=== PATIENT | female | born 1940 | race Caucasian/White ===

== ENCOUNTER 2021-12-25 14:26 | Inpatient (IN) ==
--- NOTE | 2021-12-25 14:43 | Emergency Department Note ---
Impression & Plan Closed right hip fracture, Dementia, Fall, Acute hip pain ED Provider Note NAME: JEFFREY WHITT AGE: 81 SEX: F : 1940 ARRIVES VIA: Ambulance INFORMANT: Patient, ED PROVIDER(S): Gustavo Rodriguez MD Chief Complaint: Fall, hip pain HPI: Patient presents from wound home secondary to fall and right-sided hip pain. The patient reportedly was closing a door he turned around and tripped over her own feet falling to her right side. The patient denies any LOC or head strike. Patient has any fevers or chills. The patient denies any chest back abdomen upper extremity left lower extremity pain. The patient not take anything for pain prior to arrival. Patient states the pain is localized to the right hip and is achy and nonradiating. The patient does complain of some mild tingling to the right toes. Patient has no other acute symptoms at this time. The patient denies any prior history of any orthopedic follow-up or sports medicine procedure. Patient did have some mild associated nausea secondary to the pain. Patient denies any alcohol or tobacco use. ROS: See HPI for pertinent positives and negatives. A total of 10 systems were reviewed and otherwise negative. Past medical history: See below Surgical history: See below Social history: See below Physical Exam: GENERAL: NAD, wearing glasses, non-toxic. EYE EXAM: Normal conjunctiva. PERRL, no anisocoria and EOM's grossly intact w/o pain. OROPHARYNX: Moist mucus membranes. Grossly normal dentition. NECK: Supple, no nuchal rigidity, no adenopathy, non-tender. No signs of meningismus. No midline C-spine TTP. Chest: No reproducible chest wall pain. LUNGS: Clear to auscultation. Normal chest wall mechanics. HEART: NSR, no MRG. ABDOMEN: Abdomen soft, non-tender, normo-active bowel sounds, no masses, no rebound or guarding. BACK: No CVA TTP. SKIN: No rashes and no bruising. UPPER EXTREMITIES: Upper extremities are grossly normal. No pain to palpation or obvious deformity. LOWER EXTREMITIES: Right lower extremity slightly shorter compared to the left, decreased range of motion right lower extremity secondary to pain which is localized over the right hip and proximal femur area, good DP pulse, sensation and motor intact with exception of decreased range of motion secondary to pain. Compartments are soft throughout. No pain to palpation or obvious deformity to left lower extremity. NEURO EXAM: A&O x3, cranial nerves II-XII grossly intact, normal speech, moves all 4 extremities on command w/o issue. Good finger to nose, no drift, no sensory deficits. Differential diagnoses: Fracture, subluxation, dislocation, contusion, ligamentous injury, neurovascular, compartment syndrome, rhabdomyolysis, as well as other pathologies. Course: Patient was seen and evaluated the bedside. Full history physical exam was performed. EKG interpreted by me Normal sinus rhythm, rate 96, normal intervals, normal axis, no obvious ST elevations. Imaging Studies: See Below Cardiac monitoring: An order was placed for continuous cardiac monitoring. The monitor shows a rate of 92 with sinus rhythm. MDM: Patient was seen due to concern for ground-level fall. Blood work is obtained along with plain x-rays. Patient denies any head strike does not take blood thinning medications. The patient does have a sure. I did speak with the on- call orthopedist Dr. Frausot did evaluate the patient. I did convey the patient's fracture to the patient and family member. I did speak with the on- call hospitalist Niharika Copeland PA-C and the patient was admitted by Dr. Watson. Past Med/Surg History Medical History Spencer's palsy Dementia History of breast cancer HTN (hypertension) Hyperparathyroidism Lumbar spinal stenosis Osteoporosis Pre-diabetes Surgical History History of partial mastectomy hx of dcis Family History Mother Alzheimer disease Father Heart disease Social History Smoking Status: Never smoker Hx Alcohol Use: No Hx Substance Use: No Preferred Language: Botswan[place] marital status: Current Living Situation: Spouse and Personal Care Facility Feels Safe at Home: Yes Allergies Allergies Allergy/AdvReac Type Severity Reaction Status Date / Time ezetimibe [From Zetia] Allergy Unknown ON Verified 12/25/21 16:24 [facility] MED LIST Sulfa (Sulfonamide Allergy Unknown ON Verified 12/25/21 16:24 Antibiotics) [facility] L[facility] sulfamethoxazole Allergy Unknown ON Verified 12/25/21 16:24 [From Bactrim] [facility] tramadol Allergy Unknown ON Verified 12/25/21 16:24 [facility] trimethoprim [From Bactrim] Allergy Unknown ON Verified 12/25/21 16:24 [facility] L[facility] Home Meds Home Medications Medication Instructions Recorded Confirmed amlodipine 5 mg tablet 5 mg PO QAM 12/25/21 12/25/21 cholecalciferol (vitamin D3) 25 25 mcg PO QAM 12/25/21 12/25/21 mcg (1,000 unit) capsule (Vitamin D3) citalopram 10 mg tablet 10 mg PO QAM 12/25/21 12/25/21 loratadine 10 mg tablet (Claritin) 10 mg PO QAM 12/25/21 12/25/21 Results & Data (ED) Vital Signs Vital Signs - 24 hr 12/25/21 14:34 12/25/21 15:00 12/25/21 15:15 Temperature 36.6 C Temperature Source Oral Pulse Rate 93 H 97 H 95 H Respiratory Rate 18 22 18 Blood Pressure 119/96 Blood Pressure Mean 103 Pulse Oximetry 94 97 Oxygen Delivery Method Room Air Room Air Sepsis Recent Fever Within 48 Hours No Sepsis New/Unexplained Change in Mental Status No Sepsis Action Taken by Nursing No Action Required 12/25/21 15:30 12/25/21 15:40 12/25/21 15:44 Temperature Temperature Source Pulse Rate 98 H 93 H 90 Respiratory Rate 22 21 20 Blood Pressure Blood Pressure Mean Pulse Oximetry 96 94 Oxygen Delivery Method Room Air Room Air Sepsis Recent Fever Within 48 Hours Sepsis New/Unexplained Change in Mental Status Sepsis Action Taken by Nursing 12/25/21 16:24 12/25/21 16:25 12/25/21 16:27 Temperature Temperature Source Pulse Rate 99 H Respiratory Rate 21 22 Blood Pressure 162/78 H Blood Pressure Mean 106 Pulse Oximetry 91 95 Oxygen Delivery Method Room Air Room Air Sepsis Recent Fever Within 48 Hours Sepsis New/Unexplained Change in Mental Status Sepsis Action Taken by Nursing 12/25/21 16:30 12/25/21 16:40 12/25/21 16:50 Temperature Temperature Source Pulse Rate 94 H 92 H 93 H Respiratory Rate 18 18 16 Blood Pressure 162/78 H Blood Pressure Mean 106 Pulse Oximetry 93 90 94 Oxygen Delivery Method Room Air Room Air Room Air Sepsis Recent Fever Within 48 Hours Sepsis New/Unexplained Change in Mental Status Sepsis Action Taken by [facility] Medications Current Medication List: was personally reviewed by me Laboratory Data Attestation: I reviewed the patient's lab results. Result diagrams: 12/25/21 15:17 12/25/21 15:17 Lab Results 12/25/21 12/25/21 12/25/21 Range/Units 15:17 15:17 15:17 WBC 7.00 (4.8-10.8) K/uL RBC 4.70 (4.2-5.4) M/uL Hgb 13.6 (12.0-16.0) g/dL Hct 40.6 (37-47) % MCV 86.4 (80-100) fL MCH 28.9 (25-34) pg MCHC 33.5 (32-36) g/dL RDW Std Deviation 41.3 (36.4-46.3) fL RDW Coeff of Tyesha 12.9 (11.5-14.5) % Plt Count 251 (130-400) K/uL MPV 9.8 (7.4-10.4) fL Immature Gran % (Auto) 0.1 % Neut % (Auto) 67.9 % Lymph % (Auto) 21.7 % [place] % (Auto) 8.6 % Eos % (Auto) 1.4 % Baso % (Auto) 0.3 % Neut # (Auto) 4.75 (1.4-6.5) K/uL Lymph # (Auto) 1.52 (1.2-3.4) K/uL [place] # (Auto) 0.60 H (0.11-0.59) K/uL Eos # (Auto) 0.10 (0-0.5) K/uL Baso # (Auto) 0.02 (0-0.2) K/uL Immature Gran # (Auto) 0.01 (0.00-0.02) K/uL PT 10.9 (9.0-12.0) Seconds INR 1.0 (0.9-1.1) APTT 23.4 (21.0-31.0) Seconds PTT Ratio 0.9 Sodium 136 (136-145) mmol/L Potassium 4.1 (3.5-5.1) mmol/L Chloride 102 (98-107) mmol/L Carbon Dioxide 27 (21-32) mmol/L Anion Gap 7 (3-11) BUN 18 (6-23) mg/dl Creatinine 0.91 (0.6-1.2) mg/dl Est Cr Clr Drug Dosing 38.7 ml/min Est GFR ( Amer) 67.6 ml/min Est GFR (Non-Af Amer) 58.3 ml/min BUN/Creatinine Ratio 19.8 (10-20) Glucose 137 H (70-99(Fasting)) mg/dl Calcium 9.9 (8.5-10.1) mg/dl Total Bilirubin 0.3 (0.2-1.0) mg/dl AST 13 (13-39) U/L ALT 6 L (7-52) U/L Alkaline Phosphatase 75 (34-104) U/L Total Protein 7.3 (6.0-8.3) gm/dl Albumin 4.3 (3.4-5.0) gm/dl Globulin 3.0 (2.5-4.0) gm/dl Albumin/Globulin Ratio 1.4 (0.9-2) Urine Color Urine Appearance (Clear) Urine pH (4.5-7.5) Ur Specific [place] (1.000-1.030) Urine Protein (Negative) Urine Glucose (UA) (Negative) Urine Ketones (Negative) Urine Blood (Negative) Urine Nitrite (Negative) Urine Bilirubin (Negative) Urine Urobilinogen (Negative) Ur Leukocyte Esterase (Negative) Urine WBC (Auto) (0-5) /hpf Urine RBC (Auto) (0-4) /hpf U Hyaline Cast (Auto) (0-5) /lpf U Epithel Cells (Auto) (0-5) /lpf Urine Bacteria (Auto) (Negative) Blood Type Antibody Screen 12/25/21 12/25/21 Range/Units 15:26 15:32 WBC (4.8-10.8) K/uL RBC (4.2-5.4) M/uL Hgb (12.0-16.0) g/dL Hct (37-47) % MCV (80-100) fL MCH (25-34) pg MCHC (32-36) g/dL RDW Std Deviation (36.4-46.3) fL RDW Coeff of Tyesha (11.5-14.5) % Plt Count (130-400) K/uL MPV (7.4-10.4) fL Immature Gran % (Auto) % Neut % (Auto) % Lymph % (Auto) % [place] % (Auto) % Eos % (Auto) % Baso % (Auto) % Neut # (Auto) (1.4-6.5) K/uL Lymph # (Auto) (1.2-3.4) K/uL [place] # (Auto) (0.11-0.59) K/uL Eos # (Auto) (0-0.5) K/uL Baso # (Auto) (0-0.2) K/uL Immature Gran # (Auto) (0.00-0.02) K/uL PT (9.0-12.0) Seconds INR (0.9-1.1) APTT (21.0-31.0) Seconds PTT Ratio Sodium (136-145) mmol/L Potassium (3.5-5.1) mmol/L Chloride (98-107) mmol/L Carbon Dioxide (21-32) mmol/L Anion Gap (3-11) BUN (6-23) mg/dl Creatinine (0.6-1.2) mg/dl Est Cr Clr Drug Dosing ml/min Est GFR ( Amer) ml/min Est GFR (Non-Af Amer) ml/min BUN/Creatinine Ratio (10-20) Glucose (70-99(Fasting)) mg/dl Calcium (8.5-10.1) mg/dl Total Bilirubin (0.2-1.0) mg/dl AST (13-39) U/L ALT (7-52) U/L Alkaline Phosphatase (34-104) U/L Total Protein (6.0-8.3) gm/dl Albumin (3.4-5.0) gm/dl Globulin (2.5-4.0) gm/dl Albumin/Globulin Ratio (0.9-2) Urine Color Yellow Urine Appearance Clear (Clear) Urine pH 8.5 H (4.5-7.5) Ur Specific [place] 1.009 (1.000-1.030) Urine Protein Negative (Negative) Urine Glucose (UA) Negative (Negative) Urine Ketones Negative (Negative) Urine Blood Trace H (Negative) Urine Nitrite Negative (Negative) Urine Bilirubin Negative (Negative) Urine Urobilinogen Negative (Negative) Ur Leukocyte Esterase Negative (Negative) Urine WBC (Auto) 1-5 (0-5) /hpf Urine RBC (Auto) 0-4 (0-4) /hpf U Hyaline Cast (Auto) 0 (0-5) /lpf U Epithel Cells (Auto) 10-20 H (0-5) /lpf Urine Bacteria (Auto) Negative (Negative) Blood Type A Negative Antibody Screen NEGATIVE Administered Medications Sodium Chloride (Nss 1000ml) 1,000 mls @ 60 mls/hr IV .[id number] [facility] Stop: 01/25/22 12:00 Last Admin: 12/25/21 19:28 Dose: 60 mls/hr Documented by: [id number] Morphine Sulfate (Morphine Sulfate 2 Mg/Ml Carp) 2 mg IV Q3H PRN PRN Reason: Pain (1,2,3,4,5) & Pre PT Stop: 01/08/22 18:37 Last Admin: 12/25/21 21:42 Dose: 2 mg Documented by: [id number] Ondansetron HCl (Ondansetron Inj 2 Mg/Ml 2 Ml Vial) 4 mg IV Q6H PRN PRN Reason: Nausea Stop: 01/24/22 18:37 Last Admin: 12/25/21 19:33 Dose: 4 mg Documented by: [id number] Senna/Docusate Sodium (Docusate Sodium/Senna 50/8.6mg Tab) 2 tab PO HS [facility] Stop: 01/24/22 20:59 Last Admin: 12/25/21 21:32 Dose: 2 tab Documented by: [id number] Discontinued Medications Morphine Sulfate (Morphine Sulfate 2 Mg/Ml Carp) 2 mg IV Q1H PRN PRN Reason: Moderate Pain (Rating 3,4,5,6) Stop: 01/08/22 14:53 Last Admin: 12/25/21 15:48 Dose: 2 mg Documented by: [id number] Ondansetron HCl (Ondansetron Inj 2 Mg/Ml 2 Ml Vial) Confirm Administered Dose 4 mg .ROUTE .STK-MED ONE Stop: 12/25/21 16:56 Last Admin: 12/25/21 16:58 Dose: 4 mg Documented by: [id number] Imaging Data Radiologist's Impression: Chest X-Ray 12/25/21 14:54 SINGLE VIEW CHEST CLINICAL HISTORY: Preoperative examination. Hip fracture FINDINGS: An AP, portable, supine chest radiograph is obtained. No prior studies are available for comparison at the time of dictation. The cardiomediastinal silhouette is unremarkable noting atherosclerotic calcification of the thoracic aorta. There is elevation of the right hemidiaphragm with right basilar consolidation. There is also mild scarring/atelectasis at the left lung base. Nonspecific interstitial thickening is likely chronic. No airspace consolidation, large pleural effusion, or pneumothorax is seen. The skeletal structures are osteopenic. The bony thorax is grossly intact. Surgical clips project over the left lower chest. Cholecystectomy clips are noted in the right upper quadrant. IMPRESSION: No acute cardiopulmonary abnormality. ACT 112: Negative or not required by law. Electronically signed by: Abdoulaye Brumfield M.D. 12/25/2021 4:22 PM Hip X-Ray 12/25/21 14:54 XR hip RT min 2V CLINICAL HISTORY: fall, hip pain TECHNIQUE: 2 views of the right hip were obtained. Comparison: None available at the time of this dictation. FINDINGS: There is an acute femoral neck fracture, likely subcapital or transcervical. The alignment is anatomic. Joint spaces are well-preserved. Soft tissue swelling is seen about the knee. IMPRESSION: Acute right femoral neck fracture. ACT 112: Negative or not required by law. Electronically signed by: Hans Benitez M.D. 12/25/2021 4:24 PM Discharge Plan Visit Data Chief Complaint: Hip Pain ED Provider: Gustavo Rodriguez Discharge Problem: Closed right hip fracture, Dementia, Fall, Acute hip pain Patient Disposition: Admitted As Inpatient Discharge Instructions Interventions: ED Discharge Assessment Last Done: 12/25/21 18:40
[2021-12-25] MEDS ORDERED: MoRPHine SULFATE 2 MG/ML CARP IV PRN ×2 (14:54→18:38)
[2021-12-25 15:28] LABS: Basophils # (auto) 0.02 K/uL (0-0.2); Basophils % (auto) 0.3 %; Eosinophils % (auto) 1.4 %; Hematocrit (blood only) 40.6 % (37-47); Hemoglobin 13.6 g/dL (12.0-16.0); Immature Granulocytes # (auto) 0.01 K/uL (0.00-0.02); Immature Granulocytes % (auto) 0.1 %; Lymphocytes # (auto) 1.52 K/uL (1.2-3.4); Lymphocytes % (auto) 21.7 %; Mean Corpuscular Hemoglobin 28.9 pg (25-34); Mean Corpuscular Hgb Conc 33.5 g/dL (32-36); Mean Corpuscular Volume 86.4 fL (80-100); Mean Platelet Volume 9.8 fL (7.4-10.4); Monocytes % (auto) 8.6 %; Neutrophils # (auto) 4.75 K/uL (1.4-6.5); Neutrophils % (auto) 67.9 %; Platelet Count 251 K/uL (130-400); RDW Coefficient of Variation 12.9 % (11.5-14.5); RDW Standard Deviation 41.3 fL (36.4-46.3)
[2021-12-25 15:40] LABS: Partial Thromboplastin Ratio 0.9; Partial Thromboplastin Time 23.4 Seconds (21.0-31.0); Prothrombin Time 10.9 Seconds (9.0-12.0)
[2021-12-25 15:48] LABS: Albumin Globulin Ratio 1.4 (0.9-2); Albumin Level 4.3 gm/dl (3.4-5.0); BUN Creatinine Ratio 19.8 (10-20); Bilirubin,Total 0.3 mg/dl (0.2-1.0); Calcium 9.9 mg/dl (8.5-10.1); Creatinine Clr Calc Pharmacy 38.7 ml/min; Est GFR (African American) 67.6 ml/min; Est GFR (Non-African American) 58.3 ml/min; Potassium 4.1 mmol/L (3.5-5.1); Total Protein 7.3 gm/dl (6.0-8.3)
[2021-12-25 15:54] LABS: Appearance Urine Clear (Clear); Bacteria Urine Automated Negative (Negative); Bilirubin Urine Negative (Negative); Blood Urine Trace (Negative); Cast Urine Automated 0 /lpf (0-5); Color Urine Yellow; Glucose Urine UA Negative (Negative); Ketones Urine Negative (Negative); Leukocyte Esterase Urine Negative (Negative); Nitrite Urine Negative (Negative); Protein Urine Negative (Negative); RBC Urine Automated 0-4 /hpf (0-4); Specific Gravity Urine 1.009 (1.000-1.030); Urobilinogen Urine Negative (Negative); pH Urine 8.5 (4.5-7.5)
--- NOTE | 2021-12-25 16:24 | XRay Report ---
SINGLE VIEW CHEST CLINICAL HISTORY: Preoperative examination. Hip fracture FINDINGS: An AP, portable, supine chest radiograph is obtained. No prior studies are available for co mparison at the time of dictation. The cardiomediastinal silhouette is unremarkable noting atheroscl erotic calcification of the thoracic aorta. There is elevation of the right hemidiaphragm with right basilar consolidation. There is also mild scarring/atelectasis at the left lung base. Nonspecific int erstitial thickening is likely chronic. No airspace consolidation, large pleural effusion, or pneumot horax is seen. The skeletal structures are osteopenic. The bony thorax is grossly intact. Surgical cl ips project over the left lower chest. Cholecystectomy clips are noted in the right upper quadrant. IMPRESSION: No acute cardiopulmonary abnormality. ACT 112: Negative or not required by law. Electronically signed by: Abdoulaye Brumfield M.D. 12/25/2021 4:22 PM
--- NOTE | 2021-12-25 16:26 | XRay Report ---
XR hip RT min 2V CLINICAL HISTORY: fall, hip pain TECHNIQUE: 2 views of the right hip were obtained. Comparison: None available at the time of this dictation. FINDINGS: There is an acute femoral neck fracture, likely subcapital or transcervical. The alignment is anatomi c. Joint spaces are well-preserved. Soft tissue swelling is seen about the knee. IMPRESSION: Acute right femoral neck fracture. ACT 112: Negative or not required by law. Electronically signed by: Hans Benitez M.D. 12/25/2021 4:24 PM
[2021-12-25] MEDS ORDERED: ONDANSETRON INJ 2 MG/ML 2 ML VIAL ONE (16:55)
--- NOTE | 2021-12-25 17:01 | Electrocardiogram Report ---
Test Reason : Blood Pressure : / mmHG Vent. Rate : 096 BPM Atrial Rate : 096 BPM P-R Int : 162 ms QRS Dur : 076 ms QT Int : 346 ms P-R-T Axes : 052 023 020 degrees QTc Int : 437 ms Normal sinus rhythm Nonspecific ST abnormality Abnormal ECG No previous ECGs available Confirmed by David Avery ([id number]) on 12/25/2021 5:01:34 PM Referred By: ED Confirmed By:Madi Avery
--- NOTE | 2021-12-25 17:25 | Orthopedic Consultation ---
Date of Consultation December 25, 2021 Assessment & Plan (1) Closed right hip fracture: Discussed the diagnosis and treatment options with the patient and her daughter who is her power of commercial real estate attorney. Surgery is recommended to allow her to regain the ability to walk. Surgery would be a right hip hemiarthroplasty. I reviewed the risks and benefits of surgery, alternatives, and expected outcomes. After reviewing all these she elected to proceed with surgery. Her daughter signed her informed consent form at the patient's request. She will be admitted to the internal medicine service overnight. Plan on taking the operating room tomorrow. History of Present Illness Reason for Consultation: Right hip fracture Requesting Physician: Gustavo Rodriguez MD History of Present Illness 81-year-old female, tripped over onto the at [facility] where she lives in assisted living. She fell onto her buttock on the right. Immediate onset of right hip pain. Inability to walk. Was brought to the emergency room by ambulance. X-rays in the emergency room demonstrated a displaced femoral neck fracture. Orthopedics was consulted for further management. Patient denies hitting her head or having pain anywhere else in her body other than her right hip. Denies any numbness or tingling down her leg at present. No prior history of right hip pain. Allergies Allergy/AdvReac Type Severity Reaction Status Date / Time ezetimibe [From Zetia] Allergy Unknown ON Verified 12/25/21 16:24 [facility] Sulfa (Sulfonamide Allergy Unknown ON Verified 12/25/21 16:24 Antibiotics) [facility] sulfamethoxazole Allergy Unknown ON Verified 12/25/21 16:24 [From Bactrim] [facility] tramadol Allergy Unknown ON Verified 12/25/21 16:24 [facility] trimethoprim [From Bactrim] Allergy Unknown ON Verified 12/25/21 16:24 [facility] Home Medications Medication Instructions Recorded Confirmed Type amlodipine 5 mg tablet 5 mg PO QAM 12/25/21 12/25/21 History cholecalciferol (vitamin D3) 25 25 mcg PO QAM 12/25/21 12/25/21 History mcg (1,000 unit) capsule (Vitamin D3) citalopram 10 mg tablet 10 mg PO QAM 12/25/21 12/25/21 History loratadine 10 mg tablet (Claritin) 10 mg PO QAM 12/25/21 12/25/21 History Patient History Social History Smoking Status: Never smoker Feels Safe at Home: Yes Physical Exam Physical Exam: On exam she is resting comfortably in bed in no acute distress. She does desat down to 86, however was taking deep breaths she goes back up to 92 easily. Breathing is nonlabored. Right hip exam reveals the skin to be intact. Extremities just slightly shortened but minimally externally rotated. She has palpable dorsalis pedis and posterior tibial pulses. She fires EHL FHL tib and gastrocsoleus. Sensory intact to light touch entirety of the right lower extremity. Results & Data ([facility]) Vital Signs (Past 12 Hours) Vital Signs Temp Pulse Resp BP Pulse Ox 12/25/21 16:27 22 95 12/25/21 16:25 99 H 21 91 12/25/21 16:24 162/78 H 12/25/21 15:44 90 20 12/25/21 15:40 93 H 21 94 12/25/21 15:30 98 H 22 96 12/25/21 15:15 95 H 18 12/25/21 15:00 97 H 22 97 12/25/21 14:34 36.6 C 93 H 18 119/96 94 Diagnostic Findings X-rays done in the emergency room demonstrated a displaced femoral neck fracture on the right hip.
--- NOTE | 2021-12-25 17:45 | History & Physical Report ---
Date of Service December 25, 2021 Assessment & Plan (1) Closed right hip fracture: (2) HTN (hypertension): (3) Dementia: (4) Hyperparathyroidism: (5) DVT prophylaxis: Plan: This is a 81-year-old female who has significant past medical history of palsy with residual left-sided facial droop, dementia, HTN, osteoporosis, hyperparathyroidism, prediabetes who presents to ED after sustaining a fall prior to arrival. Hip Xr: Acute right femoral neck fracture Chest x-ray: no acute abnormality EK bpm normal sinus rhythm Patient has good functional capacity, typically ambulates without a walker and can meet at least 4 METS criteria. She denies any chest pain or shortness of breath. Denies prior history of CAD/CVA. Closed right femoral neck fracture Admit to medical Consult orthopedics -discussed at bedside with Ortho Bedrest Surgical fixation tomorrow at approximately 330 to 4 PM N.p.o. after midnight IV fluids at midnight, gentle 60 cc/h Antiemetics, pain meds as needed Malhotra catheter placed Pt pre op risk is 3.9%, despite age minimal medical comorbidities, ok to proceed to OR supplemental O2 to keep oxygen > 92%, encourage incentive spirometry will need pt/ot post op HTN Continue amlodipine with parameters Osteoporosis Treated with Prolia, but has not had in the past year Obtain vitamin D in a.m. 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 Watson, please see addendum The chart was completed utilizing [employer] mobility Speech voice recognition software. Grammatical errors, random word insertions, pronoun errors, and incomplete sentences are an occasional consequence of this system due to software limitations, ambient noise, and hardware issues. Any formal questions or concerns about the content, text, or information contained within the body of this dictation should be directly addressed to the provider for clarification. History of Present Illness Chief Complaint: Fall prior to arrival. Primary Care Provider: Siobhan Jorgensen MD This is a 81-year-old female who has significant past medical history of palsy with residual left-sided facial droop, dementia, HTN, osteoporosis, hyperparathyroidism, prediabetes who presents to ED after sustaining a fall prior to arrival. She currently lives at [facility] with her . At baseline she ambulates without assist device. She was walking at her facility when she was trying to turn In ED, lost her footing and fell on her right side. She did not lose consciousness. She had immediate right hip pain. EMS was summoned. Currently she is lying in bed and complains of right hip pain. Right hip x-ray revealed acute right femoral neck fracture. She denies any fever, chills, sweats, lightheadedness, syncope, chest pain, shortness of breath, cough, nausea, vomiting, abdominal pain, change in bowel or urinary habits. She does admit to having dizziness which is worse with movement. She does occasionally feel like she could, "passed out." She denies having the sensations today. In ED she did receive 2 mg of IV morphine. This did cause her to be drowsy and slightly desaturate requiring 2 L of oxygen. Her chest x- ray was otherwise clear. Again at baseline she ambulates without assist device. She is able to ambulate up 1 flight of stairs without any chest pain or shortness of breath. She otherwise has good functional status. EKG revealed normal sinus rhythm at [address] or T wave changes. Her EMR outpatient epic was reviewed. She does have prior history of hyperparathyroidism previously followed by Endo. She also sees rheumatology secondary to osteoporosis. Per daughter she has not had her Prolia injection in 1 year. Allergies Allergy/AdvReac Type Severity Reaction Status Date / Time ezetimibe [From Zetia] Allergy Unknown ON Verified 12/25/21 16:24 [facility] Sulfa (Sulfonamide Allergy Unknown ON Verified 12/25/21 16:24 Antibiotics) [facility] sulfamethoxazole Allergy Unknown ON Verified 12/25/21 16:24 [From Bactrim] [facility] tramadol Allergy Unknown ON Verified 12/25/21 16:24 [facility] trimethoprim [From Bactrim] Allergy Unknown ON Verified 12/25/21 16:24 [facility] Home Medications Medication Instructions Recorded Confirmed Type amlodipine 5 mg tablet 5 mg PO QAM 12/25/21 12/25/21 History cholecalciferol (vitamin D3) 25 25 mcg PO QAM 12/25/21 12/25/21 History mcg (1,000 unit) capsule (Vitamin D3) citalopram 10 mg tablet 10 mg PO QAM 12/25/21 12/25/21 History loratadine 10 mg tablet (Claritin) 10 mg PO QAM 12/25/21 12/25/21 History Past Med/Surg History Medical History Spencer's palsy Dementia History of breast cancer HTN (hypertension) Hyperparathyroidism Lumbar spinal stenosis Osteoporosis Pre-diabetes Surgical History History of partial mastectomy hx of dcis Family History Mother Alzheimer disease Father Heart disease Social History Smoking Status: Never smoker Hx Alcohol Use: No Hx Substance Use: No Preferred Language: Maltese Communication Ability: Effective 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 Beliefs That Will Affect Care: None marital status: Current Living Situation: Spouse and Personal Care Facility Other Information That Helps Us Care for You: No Feels Safe at Home: Yes Safety Concerns: Feels Safe At This Time Assistive Devices: Glasses Review of Systems Review of Systems: All systems reviewed & are unremarkable except as noted in HPI & below Physical Exam Physical Exam: Constitutional: Thin, petite, elderly female, vitals as above, NAD, sitting up in bed, pleasant, conversing easily Head: Normocephalic, Atraumatic Eyes: PERRL, conjunctivae normal, anicteric sclerae ENMT: external ear and nose normal, oropharynx normal , 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 Normal insp/exp effort, no accessory muscle use Cardiovascular: RRR, no murmur, no edema Vessels: no JVD or carotid bruit Chest: normal inspection of chest Abdomen: normal bowel sounds, soft, nontender, no hepatosplenomegaly Musculoskeletal: no cyanosis or clubbing, range of motion x3, right lower extremity not tested, good pulses peripherally bilaterally, +2 pedal Skin: no rashes, warm and dry normal turgor Neurologic: PERRL, EOMI, accommodation nl, no face palsy, no dysarthria CN's II-XI intact bilaterally and moves all extremities Psychiatric: A+Ox3 basics euthymic affect Lymphatic: no cervical or axillary lymphadenopathy : Cath in place draining yellow urine Results & Data Results & Data ([facility]) Vital Signs (Past 12 Hours) Vital Signs Temp Pulse Resp BP Pulse Ox 12/25/21 17:26 98 12/25/21 17:24 90 12/25/21 17:20 101 H 21 93 12/25/21 17:10 101 H 17 90 12/25/21 17:00 88 17 95 12/25/21 16:50 93 H 16 94 12/25/21 16:40 92 H 18 90 12/25/21 16:30 94 H 18 162/78 H 93 12/25/21 16:27 22 95 12/25/21 16:25 99 H 21 91 12/25/21 16:24 162/78 H 12/25/21 15:44 90 20 12/25/21 15:40 93 H 21 94 12/25/21 15:30 98 H 22 96 12/25/21 15:15 95 H 18 12/25/21 15:00 97 H 22 97 12/25/21 14:34 36.6 C 93 H 18 119/96 94 Laboratory Results Short CBC 12/25/21 Range/Units 15:17 WBC 7.00 (4.8-10.8) K/uL Hgb 13.6 (12.0-16.0) g/dL Hct 40.6 (37-47) % Plt Count 251 (130-400) K/uL BMP 12/25/21 15:17 Sodium 136 Potassium 4.1 Chloride 102 Carbon Dioxide 27 BUN 18 Creatinine 0.91 Glucose 137 H Calcium 9.9 Liver Function 12/25/21 Range/Units 15:17 Total Bilirubin 0.3 (0.2-1.0) mg/dl AST 13 (13-39) U/L ALT 6 L (7-52) U/L Alkaline Phosphatase 75 (34-104) U/L Albumin 4.3 (3.4-5.0) gm/dl Urine 12/25/21 Range/Units 15:32 Urine Color Yellow Urine Appearance Clear (Clear) Urine pH 8.5 H (4.5-7.5) Ur Specific [place] 1.009 (1.000-1.030) Urine Protein Negative (Negative) Urine Glucose (UA) Negative (Negative) Diagnostic Findings Chest X-Ray 12/25/21 14:54 SINGLE VIEW CHEST CLINICAL HISTORY: Preoperative examination. Hip fracture FINDINGS: An AP, portable, supine chest radiograph is obtained. No prior studies are available for comparison at the time of dictation. The cardiomediastinal silhouette is unremarkable noting atherosclerotic calcification of the thoracic aorta. There is elevation of the right hemidiaphragm with right basilar consolidation. There is also mild scarring/atelectasis at the left lung base. Nonspecific interstitial thickening is likely chronic. No airspace consolidation, large pleural effusion, or pneumothorax is seen. The skeletal structures are osteopenic. The bony thorax is grossly intact. Surgical clips project over the left lower chest. Cholecystectomy clips are noted in the right upper quadrant. IMPRESSION: No acute cardiopulmonary abnormality. ACT 112: Negative or not required by law. Electronically signed by: Abdoulaye Brumfield M.D. 12/25/2021 4:22 PM Hip X-Ray 12/25/21 14:54 XR hip RT min 2V CLINICAL HISTORY: fall, hip pain TECHNIQUE: 2 views of the right hip were obtained. Comparison: None available at the time of this dictation. FINDINGS: There is an acute femoral neck fracture, likely subcapital or transcervical. The alignment is anatomic. Joint spaces are well-preserved. Soft tissue swelling is seen about the knee. IMPRESSION: Acute right femoral neck fracture. ACT 112: Negative or not required by law. Electronically signed by: Hans Benitez M.D. 12/25/2021 4:24 PM Medications Administered Medication List Morphine Sulfate (Morphine Sulfate 2 Mg/Ml Carp) 2 mg IV Q1H PRN PRN Reason: Moderate Pain (Rating 3,4,5,6) Stop: 01/08/22 14:53 Last Admin: 12/25/21 15:48 Dose: 2 mg Documented by: [id number] Discontinued Medications Ondansetron HCl (Ondansetron Inj 2 Mg/Ml 2 Ml Vial) Confirm Administered Dose 4 mg .ROUTE .STK-MED ONE Stop: 12/25/21 16:56 Last Admin: 12/25/21 16:58 Dose: 4 mg Documented by: [id number] ECG Rate (beats per minute): 96 Rhythm: normal sinus COVID-19 Results Results COVID-19 Adm Lab Results: RBC 4.70 M/uL (4.2-5.4) 12/25/21 WBC 7.00 K/uL (4.8-10.8) 12/25/21 Hgb 13.6 g/dL (12.0-16.0) 12/25/21 Hct 40.6 % (37-47) 12/25/21 Plt Count 251 K/uL (130-400) 12/25/21 Neutrophils (%) (Auto) 67.9 % 12/25/21 Lymphocytes (%) (Auto) 21.7 % 12/25/21 Monocytes # (Auto) 0.60 K/uL (0.11-0.59) H 12/25/21 Eosinophils # (Auto) 0.10 K/uL (0-0.5) 12/25/21 Immature Granulocyte % (Auto) 0.1 % 12/25/21 Neutrophils # (Auto) 4.75 K/uL (1.4-6.5) 12/25/21 Lymphocytes # (Auto) 1.52 K/uL (1.2-3.4) 12/25/21 Monocytes # (Auto) 0.60 K/uL (0.11-0.59) H 12/25/21 Eosinophils # (Auto) 0.10 K/uL (0-0.5) 12/25/21 Basophils # (Auto) 0.02 K/uL (0-0.2) 12/25/21 Immature Granulocyte # (Auto) 0.01 K/uL (0.00-0.02) 12/25/21 Na 136 mmol/L (136-145) 12/25/21 K 4.1 mmol/L (3.5-5.1) 12/25/21 Cl 102 mmol/L (98-107) 12/25/21 CO2 27 mmol/L (21-32) 12/25/21 Anion Gap 7 (3-11) 12/25/21 BUN 18 mg/dl (6-23) 12/25/21 Creatinine 0.91 mg/dl (0.6-1.2) 12/25/21 BUN/Creatinine Ratio 19.8 (10-20) 12/25/21 Glucose Level 137 mg/dl (70-99(Fasting)) H 12/25/21 Ca 9.9 mg/dl (8.5-10.1) 12/25/21 Total Bilirubin 0.3 mg/dl (0.2-1.0) 12/25/21 AST/SGOT 13 U/L (13-39) 12/25/21 ALT/SGPT 6 U/L (7-52) L 12/25/21 Alkaline Phosphatase 75 U/L (34-104) 12/25/21 Total Protein 7.3 gm/dl (6.0-8.3) 12/25/21 Albumin 4.3 gm/dl (3.4-5.0) 12/25/21 Globulin 3.0 gm/dl (2.5-4.0) 12/25/21 Albumin/Globulin Ratio 1.4 (0.9-2) 12/25/21 PTT 23.4 Seconds (21.0-31.0) 12/25/21 INR 1.0 (0.9-1.1) 12/25/21 SARS-CoV-2, RNA, NAAT NEGATIVE (NEGATIVE) 12/25/21 Chest X-Ray 12/25/21 Code Status & VTE Plan Code Status FULL CODE VTE Prophylaxis Plan VTE Prophylaxis will be ordered: Yes Supervising Physician Co-Signing Physician Notes I have seen and examined the patient and have discussed the case with the provider above. I agree with the assessment and plan as stated. 81 yo F who is very functional at baseline, typically ambulating independently and able to climb flights of stairs, experienced a mechanical fall today resulting in a hip fracture. She is not in pain unless she moves. Reports no h/o chest pain or shortness of breath in the last 6 months. She does report some lightheadedness with changing position from sitting to standing. Physical exam reveals a thin, elderly female in NAD who is mentating clearly. Left [place] palsy. Daughter is at bedside. Lungs are clear. Cardiac auscultation reveals no m/g/r, S1/2 and reg rate and rhythm. Abdomen is soft, NTND. Lower extremities are warm and well perfused. Labwork is unremarkable and EKG does not reveal block or acute ischemia. Agree with proceeding to surgery should that be recommended as risk is acceptable and previously had good quality of life. Ortho requesting preop TXA to be given. Dispo pending post operative recovery. DO Walter
--- NOTE | 2021-12-25 18:18 | Anesthesiology Consultation ---
Date of Service December 25, 2021 Assessment & Plan (1) Encounter for pre-operative examination: Chart Review Chart Review: Acceptable Risk for Surgery and Patient NOT seen in Pre Admission Testing Consults Requested none History Surgery Operation Date: 12/26/21 08:30 Proposed Procedures p Right Hip Hemiarthroplasty Cemented - Stephen Frausto MD Height/Weight Height: 5 ft 3 in Weight: 60 kg Allergies Allergy/AdvReac Type Severity Reaction Status Date / Time ezetimibe [From Zetia] Allergy Unknown ON Verified 12/25/21 16:24 [facility] Sulfa (Sulfonamide Allergy Unknown ON Verified 12/25/21 16:24 Antibiotics) [facility] sulfamethoxazole Allergy Unknown ON Verified 12/25/21 16:24 [From Bactrim] [facility] tramadol Allergy Unknown ON Verified 12/25/21 16:24 [facility] trimethoprim [From Bactrim] Allergy Unknown ON Verified 12/25/21 16:24 [facility] Medications Home Medications Medication Instructions Recorded Confirmed Last Taken amlodipine 5 mg tablet 5 mg PO QAM 12/25/21 12/25/21 12/25/21 cholecalciferol (vitamin D3) 25 25 mcg PO QAM 12/25/21 12/25/21 12/25/21 mcg (1,000 unit) capsule (Vitamin D3) citalopram 10 mg tablet 10 mg PO QAM 12/25/21 12/25/21 12/25/21 loratadine 10 mg tablet (Claritin) 10 mg PO QAM 12/25/21 12/25/21 12/25/21 Active Medications Generic Name Dose Route Start Last Admin Trade Name Freq PRN Reason Stop Dose Admin Morphine Sulfate 2 mg 12/25/21 14:54 12/25/21 15:48 Morphine Sulfate 2 Mg/Ml Carp IV 01/08/22 14:53 2 mg Q1H PRN Administration Moderate Pain (Rating 3,4,5,6) Past Medical History Medical History Spencer's palsy Dementia History of breast cancer HTN (hypertension) Hyperparathyroidism Lumbar spinal stenosis Osteoporosis Pre-diabetes Past Family History Family History Mother Alzheimer disease Father Heart disease Past Surgical History Surgical History History of partial mastectomy hx of dcis Social History Smoking Status: Never smoker Hx Alcohol Use: No Hx Substance Use: No Physical Exam Vital Signs Last Vital Signs Temp 36.6 C 12/25/21 14:34 Pulse 92 H 12/25/21 17:40 Resp 19 12/25/21 17:40 BP 83/53 L 12/25/21 17:40 Pulse Ox 96 12/25/21 17:40 Testing Laboratory Results 12/25/21 15:17 12/25/21 15:17 PT 10.9 Seconds (9.0-12.0) 12/25/21 15:17 INR 1.0 (0.9-1.1) 12/25/21 15:17 APTT 23.4 Seconds (21.0-31.0) 12/25/21 15:17 Urine Color Yellow 12/25/21 15:32 Urine Appearance Clear (Clear) 12/25/21 15:32 Urine pH 8.5 (4.5-7.5) H 12/25/21 15:32 Ur Specific [place] 1.009 (1.000-1.030) 12/25/21 15:32 Urine Protein Negative (Negative) 12/25/21 15:32 Urine Glucose (UA) Negative (Negative) 12/25/21 15:32 Urine Ketones Negative (Negative) 12/25/21 15:32 Urine Nitrite Negative (Negative) 12/25/21 15:32 Ur Leukocyte Esterase Negative (Negative) 12/25/21 15:32 Urine WBC (Auto) 1-5 /hpf (0-5) 12/25/21 15:32 Urine RBC (Auto) 0-4 /hpf (0-4) 12/25/21 15:32 U Hyaline Cast (Auto) 0 /lpf (0-5) 12/25/21 15:32 U Epithel Cells (Auto) 10-20 /lpf (0-5) H 12/25/21 15:32 Urine Bacteria (Auto) Negative (Negative) 12/25/21 15:32 Blood Type A Negative 12/25/21 15:26 Antibody Screen NEGATIVE 12/25/21 15:26 Electrocardiogram Date: 12/25/21 DICTATED BY:David Avery MD Test Reason : Blood Pressure : / mmHG Vent. Rate : 096 BPM Atrial Rate : 096 BPM P-R Int : 162 ms QRS Dur : 076 ms QT Int : 346 ms P-R-T Axes : 052 023 020 degrees QTc Int : 437 ms Normal sinus rhythm Nonspecific ST abnormality Abnormal ECG No previous ECGs available Confirmed by David Avery ([id number]) on 12/25/2021 5:01:34 PM Referred By: ED Confirmed By:Madi Avery Signed By: 12/25/21 1701 Dictated:12/25/21 [id number] Transcribed: [employer]: Chest X-Ray Date: 12/25/21 SINGLE VIEW CHEST CLINICAL HISTORY: Preoperative examination. Hip fracture FINDINGS: An AP, portable, supine chest radiograph is obtained. No prior studies are available for comparison at the time of dictation. The cardiomediastinal silhouette is unremarkable noting atherosclerotic calcification of the thoracic aorta. There is elevation of the right hemidiaphragm with right basilar consolidation. There is also mild scarring/atelectasis at the left lung base. Nonspecific interstitial thickening is likely chronic. No airspace consolidation, large pleural effusion, or pneumothorax is seen. The skeletal structures are osteopenic. The bony thorax is grossly intact. Surgical clips project over the left lower chest. Cholecystectomy clips are noted in the right upper quadrant. IMPRESSION: No acute cardiopulmonary abnormality. ACT 112: Negative or not required by law. Electronically signed by: Abdoulaye Brumfield M.D. 12/25/2021 4:22 PM Dictated:12/25/21 [id number]
[2021-12-25] MEDS ORDERED: ACETAMINOPHEN 325 MG TAB PO PRN (18:38)
[2021-12-25] MEDS ORDERED: MAGNESIUM HYDROXIDE SUSP 30 ML UDC PO PRN (18:38)
[2021-12-25] MEDS ORDERED: oxyCODONE HCL IR 5 MG TAB (IMMEDIATE RELEASE) PO PRN ×2 (18:38)
[2021-12-25] MEDS ORDERED: NALOXONE HCL 0.4 MG/1 ML VIAL/CARP IV PRN (18:38)
[2021-12-25] MEDS ORDERED: POLYETHYLENE (MIRALAX) 17 GM PACK PO PRN (18:38)
[2021-12-25] MEDS ORDERED: bisacodyL 10 MG SUPP PR PRN (18:38)
[2021-12-25] MEDS ORDERED: ALUMINUM/MAGNESIUM SUSP 30 ML UDC PO PRN (18:38)
[2021-12-25] MEDS: SODIUM CHLORIDE 0.9% 1000ML 1,000 ML IV SCH (19:28)
[2021-12-25] MEDS: ONDANSETRON INJ 2 MG/ML 2 ML VIAL IV PRN (19:33)
[2021-12-25] MEDS: DOCUSATE SODIUM/SENNA 50/8.6MG TAB PO SCH (21:32)
[2021-12-26] MEDS: ONDANSETRON INJ 2 MG/ML 2 ML VIAL IV PRN ×2 (02:02→08:52)
[2021-12-26] MEDS ORDERED: TRANEXAMIC ACID / 0.7% NACL 1,000 MG/100 ML BAG IV SCH ×2 (06:00)
[2021-12-26] MEDS ORDERED: LACTATED RINGER'S 1,000 ML IV SCH (06:00)
[2021-12-26] MEDS ORDERED: ceFAZolin 1000MG 1,000 MG/7.5 ML SYR IV ONE ×2 (06:00→17:23)
[2021-12-26 07:32] LABS: Basophils # (auto) 0.02 K/uL (0-0.2); Basophils % (auto) 0.2 %; Eosinophils # (auto) 0.03 K/uL (0-0.5); Eosinophils % (auto) 0.3 %; Hematocrit (blood only) 41.4 % (37-47); Hemoglobin 13.5 g/dL (12.0-16.0); Immature Granulocytes # (auto) 0.02 K/uL (0.00-0.02); Immature Granulocytes % (auto) 0.2 %; Lymphocytes # (auto) 0.88 K/uL (1.2-3.4); Lymphocytes % (auto) 8.1 %; Mean Corpuscular Hemoglobin 28.5 pg (25-34); Mean Corpuscular Hgb Conc 32.6 g/dL (32-36); Mean Corpuscular Volume 87.5 fL (80-100); Mean Platelet Volume 9.7 fL (7.4-10.4); Monocytes # (auto) 1.09 K/uL (0.11-0.59); Neutrophils # (auto) 8.82 K/uL (1.4-6.5); Neutrophils % (auto) 81.2 %; Platelet Count 243 K/uL (130-400); RDW Coefficient of Variation 12.9 % (11.5-14.5); RDW Standard Deviation 41.4 fL (36.4-46.3); Red Blood Count 4.73 M/uL (4.2-5.4); White Blood Count 10.86 K/uL (4.8-10.8)
[2021-12-26 07:58] LABS: Albumin Globulin Ratio 1.3 (0.9-2); Albumin Level 4.1 gm/dl (3.4-5.0); BUN Creatinine Ratio 23.5 (10-20); Bilirubin,Total 0.5 mg/dl (0.2-1.0); Calcium 9.7 mg/dl (8.5-10.1); Creatinine Clr Calc Pharmacy 52.1 ml/min; Est GFR (African American) 93.8 ml/min; Est GFR (Non-African American) 80.9 ml/min; Globulin 3.1 gm/dl (2.5-4.0); Magnesium 2.1 mg/dl (1.7-2.4); Potassium 3.8 mmol/L (3.5-5.1); Total Protein 7.2 gm/dl (6.0-8.3)
[2021-12-26] MEDS: CITALOPRAM 20 MG TAB PO SCH (08:53)
[2021-12-26] MEDS: amLODIPine BESYLATE 5 MG TAB PO SCH (08:53)
[2021-12-26] MEDS: LORATADINE 10 MG TAB PO SCH (08:54)
[2021-12-26] MEDS: CHOLECALCIFEROL 1,000 UNITS 25 MCG TAB PO SCH (08:54)
[2021-12-26] MEDS: SODIUM CHLORIDE 0.9% 1000ML 1,000 ML IV SCH ×2 (12:55→23:34)
[2021-12-26] MEDS ORDERED: LIDOCAINE 2% 2 ML VIAL/AMP(20MG/ML) INFIL ONE (14:01)
[2021-12-26] MEDS ORDERED: fentaNYL citrate 100 MCG/2 ML VIAL ONE ×2 (14:01→16:14)
[2021-12-26] MEDS ORDERED: PROPOFOL IV EMULSION 10 MG/ML 20 ML VIAL IV ONE ×2 (14:01→17:35)
[2021-12-26] MEDS ORDERED: TXA 10% Non-IV Routes 100 MG/ML VIAL TOP ONE (15:07)
[2021-12-26] MEDS ORDERED: ATROPINE SULFATE 0.1 MG/ML 10ML SYR IV PRN (15:10)
[2021-12-26] MEDS ORDERED: ONDANSETRON INJ 2 MG/ML 2 ML VIAL IV PRN ×2 (15:10→17:50)
[2021-12-26] MEDS ORDERED: fentaNYL citrate 100 MCG/2 ML VIAL IV PRN (15:10)
[2021-12-26] MEDS ORDERED: ePHEDrine sulfate 50 MG/ML AMP IV PRN (15:10)
[2021-12-26] MEDS ORDERED: BUPIVACAINE 0.5 % 5 MG/1 ML PF 10ML VIAL ONE (15:14)
--- NOTE | 2021-12-26 15:17 | Orthopedic Progress Note ---
Date of Service December 26, 2021 Assessment & Plan (1) Closed right hip fracture: Plan: Proceed to operating room as planned. Re-admit to internal medicine after surgery. Admission and Anticipated Discharge Date Admission Date: December 25, 2021 Subjective Patient reports she was comfortable overnight so long as she doesn't move her hip. No chest pain, sob. No numbness/tingling. No questions about the surgery. Physical Exam Physical Exam: On exam she is resting comfortably in bed in no acute distress. Breathing is nonlabored. Right hip exam reveals the skin to be intact. Extremities just slightly shortened but minimally externally rotated. She has palpable dorsalis pedis and posterior tibial pulses. She fires EHL FHL tib and gastrocsoleus. Sensory intact to light touch entirety of the right lower extremity. Results & Data ([facility]) Vital Signs (Past 12 Hours) Vital Signs Temp Pulse Resp BP BP Pulse Ox 12/26/21 14:20 36.8 C 89 18 164/76 H 98 12/26/21 11:00 37.1 C 90 18 165/75 H 94 12/26/21 07:14 37.3 C 94 H 18 162/81 H 93 12/26/21 06:24 37.0 C 87 14 154/80 H 95 (1) Closed right hip fracture Encounter type: initial encounter Qualified Code(s): S72.001A - Fracture of unspecified part of neck of right femur, initial encounter for closed fracture
[2021-12-26] MEDS ORDERED: ROPIVACAINE 0.5% HCL/PF 150 MG, BUPIVACAINE 0.75% MPF 20 ML, EPINEPHrine 30MG/30ML (OR ... INFIL ONE (15:30)
[2021-12-26] MEDS ORDERED: TRANEXAMIC ACID 1,000 MG x 1 **For Topical Use TOP ONE (15:30)
[2021-12-26] MEDS: ceFAZolin 2000MG 2,000 MG/15 ML SYR IV SCH ×3 (16:03→23:37)
[2021-12-26] MEDS ORDERED: KETAMINE 50 MG/5 ML SYRINGE ONE (16:15)
--- NOTE | 2021-12-26 16:20 | Hospitalist Progress Note ---
Date of Service December 26, 2021 Assessment & Plan (1) Closed right hip fracture: (2) HTN (hypertension): (3) Dementia: (4) Hyperparathyroidism: (5) DVT prophylaxis: Plan: This is a 81-year-old female who has significant past medical history of palsy with residual left-sided facial droop, dementia, HTN, osteoporosis, hyperparathyroidism, prediabetes who presents to ED after sustaining a fall prior to arrival. Hip Xr: Acute right femoral neck fracture Chest x-ray: no acute abnormality EK bpm normal sinus rhythm Patient has good functional capacity, typically ambulates without a walker and can meet at least 4 METS criteria. She denies any chest pain or shortness of breath. Denies prior history of CAD/CVA. Closed right femoral neck fracture - seen by ortho. plan for right hip hemiarthroplasty today, npo for same, on kayden ntenance ivf. - Pain management, bowel regimen - PT/OT tomorrow; DVT prophylaxis from tomorrow HTN Continue amlodipine with parameters Osteoporosis Treated with Prolia, but has not had in the past year. Vit D level pending Hyperparathyroidism Previously followed endocrinology Stable, follows PCP. No hypercalcemia noted. 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 Denies any chest pain or shortness of breath. No fever or chills. No nausea or vomiting. NPO for surgery today. Physical Exam Physical Exam: General: Eldery female lying in bed, in some distress due to pain HEENT: EOMI, PAOLA, MMM Chest: Clear breath sounds bilaterally, no wheezes or crackles CVS: Regular rate and rhythm, normal heart sounds, no murmur Abdomen: Soft, non tender, not distended, normal bowel sounds Neuro: Awake, alert, oriented, conversing well, non focal Extremities: No cyanosis, clubbing or edema Results & Data Results & Data ([facility]) Vital Signs (Past 12 Hours) Vital Signs Temp Pulse Resp BP BP Pulse Ox 12/26/21 14:20 36.8 C 89 18 164/76 H 98 12/26/21 11:00 37.1 C 90 18 165/75 H 94 12/26/21 07:14 37.3 C 94 H 18 162/81 H 93 12/26/21 06:24 37.0 C 87 14 154/80 H 95 Laboratory Results Short CBC 12/26/21 Range/Units 07:11 WBC 10.86 H (4.8-10.8) K/uL Hgb 13.5 (12.0-16.0) g/dL Hct 41.4 (37-47) % Plt Count 243 (130-400) K/uL BMP 12/26/21 07:11 Sodium 137 Potassium 3.8 Chloride 105 Carbon Dioxide 26 BUN 16 Creatinine 0.68 Glucose 123 H Calcium 9.7 Liver Function 12/26/21 Range/Units 07:11 Total Bilirubin 0.5 (0.2-1.0) mg/dl AST 14 (13-39) U/L ALT 6 L (7-52) U/L Alkaline Phosphatase 75 (34-104) U/L Albumin 4.1 (3.4-5.0) gm/dl Medications Administered Current Inpatient Medications Acetaminophen (Acetaminophen 325 Mg Tab) 650 mg PO Q4H PRN PRN Reason: pain/fever Stop: 01/24/22 18:37 Last Admin: 12/26/21 08:58 Dose: 650 mg Documented by: Al Hydrox/Mg Hydrox/Simethicone (Aluminum/Magnesium Susp 30 Ml Udc) 30 ml PO Q6H PRN PRN Reason: Dyspepsia Stop: 01/24/22 18:37 Amlodipine Besylate (Amlodipine Besylate 5 Mg Tab) 5 mg PO QAM SELIN Stop: 01/25/22 08:59 Last Admin: 12/26/21 08:53 Dose: 5 mg Documented by: Atropine Sulfate (Atropine Sulfate 0.1 Mg/Ml 10ml Syr) 0.5 mg IV Q1M PRN PRN Reason: PACU Use-HR<40 &/or Bradycardi Stop: 12/26/21 23:10 Bisacodyl (Bisacodyl 10 Mg Supp) 10 mg NE DAILY PRN PRN Reason: Constipation Stop: 01/24/22 18:37 Citalopram Hydrobromide (Citalopram 20 Mg Tab) 10 mg PO QAM [facility] Stop: 01/25/22 08:59 Last Admin: 12/26/21 08:53 Dose: 10 mg Documented by: Ephedrine Sulfate (Ephedrine Sulfate 50 Mg/Ml Amp) 5 mg IV Q5M PRN PRN Reason: PACU Use Only-SBP<90 mmHg Stop: 12/26/21 23:10 Fentanyl Citrate (Fentanyl Citrate 100 Mcg/2 Ml Vial) 25 mcg IV Q5M PRN PRN Reason: PACU Use Only-Pain Stop: 12/26/21 23:10 Cefazolin Sodium (Ancef 2000mg) 2,000 mg in 15 mls @ 3.75 mls/min IV PREOP [facility]; Protocol Stop: 12/27/21 05:59 Last Admin: 12/26/21 16:03 Dose: Not Given Documented by: Sodium Chloride (Nss 1000ml) 1,000 mls @ 60 mls/hr IV .[id number] [facility] Stop: 01/25/22 12:00 Last Infusion: 12/26/21 14:00 Dose: 0 mls/hr Documented by: Lactated Ringer's (Lr) 1,000 mls @ 60 mls/hr IV .[id number] [facility] Stop: 12/26/21 22:39 Last Admin: 12/26/21 16:03 Dose: Not Given Documented by: Loratadine (Loratadine 10 Mg Tab) [facility] Stop: 01/25/22 08:59 Last Admin: 12/26/21 08:54 Dose: 10 mg Documented by: Magnesium Hydroxide (Magnesium Hydroxide Susp 30 Ml Udc) 30 ml PO Q6H PRN PRN Reason: Constipation Stop: 01/24/22 18:37 Morphine Sulfate (Morphine Sulfate 2 Mg/Ml Carp) 2 mg IV Q3H PRN PRN Reason: Pain (1,2,3,4,5) & Pre PT Stop: 01/08/22 18:37 Last Admin: 12/25/21 21:42 Dose: 2 mg Documented by: Naloxone HCl (Naloxone Hcl 0.4 Mg/1 Ml Vial/Carp) 0.1 mg IV UD PRN PRN Reason: Opiate Overdose Stop: 01/24/22 18:37 Ondansetron HCl (Ondansetron Inj 2 Mg/Ml 2 Ml Vial) 4 mg IV Q6H PRN PRN Reason: Nausea Stop: 01/24/22 18:37 Last Admin: 12/26/21 08:52 Dose: 4 mg Documented by: Ondansetron HCl (Ondansetron Inj 2 Mg/Ml 2 Ml Vial) 4 mg IV ONCE PRN PRN Reason: PACU Use Only-Nausea/Vomiting Stop: 12/26/21 23:10 Oxycodone HCl (Oxycodone Hcl Ir 5 Mg Tab (Immediate Release)) 2.5 mg PO Q4H PRN PRN Reason: MODERATE Pain (4,5,6) & Pre PT Stop: 01/08/22 18:37 Oxycodone HCl (Oxycodone Hcl Ir 5 Mg Tab (Immediate Release)) 5 mg PO Q4H PRN PRN Reason: SEVERE Pain (7,8,9,10) Stop: 01/08/22 18:37 Polyethylene Glycol (Polyethylene (Miralax) 17 Gm Pack) 17 gm PO DAILY PRN PRN Reason: Constipation Stop: 01/24/22 18:37 Senna/Docusate Sodium (Docusate Sodium/Senna 50/8.6mg Tab) 2 tab PO HS [facility] Stop: 01/24/22 20:59 Last Admin: 12/25/21 21:32 Dose: 2 tab Documented by: Vitamin D (Cholecalciferol 1,000 Units 25 Mcg Tab) 1,000 units PO QAM SELIN Stop: 01/25/22 08:59 Last Admin: 12/26/21 08:54 Dose: 1,000 units Documented by: (1) Closed right hip fracture Encounter type: initial encounter Qualified Code(s): S72.001A - Fracture of unspecified part of neck of right femur, initial encounter for closed fracture (2) Dementia Dementia behavioral disturbance: without behavioral disturbance Dementia type: unspecified type Qualified Code(s): F03.90 - Unspecified dementia without behavioral disturbance
[2021-12-26] MEDS ORDERED: PHENYLEPHRINE 100MCG/ML 5ML SYR ONE (16:44)
[2021-12-26] MEDS ORDERED: GLYCOPYRROLATE 0.2 MG/ML VIAL ONE (16:44)
[2021-12-26] MEDS ORDERED: ONDANSETRON INJ 2 MG/ML 2 ML VIAL ONE (16:44)
[2021-12-26] MEDS ORDERED: ePHEDrine sulfate 50 MG/ML AMP ONE (17:03)
[2021-12-26] MEDS ORDERED: diphenhydrAMINE 50 MG/ML VIAL IV PRN (17:50)
[2021-12-26] MEDS ORDERED: NALOXONE HCL 0.4 MG/1 ML VIAL/CARP IV PRN (17:50)
[2021-12-26] MEDS ORDERED: bisacodyL 10 MG SUPP PR PRN (17:50)
[2021-12-26] MEDS ORDERED: METOCLOPRAMIDE HCL INJ 5 MG/ML 2 ML VIAL IV PRN (17:50)
[2021-12-26] MEDS ORDERED: traMADol HCL 50 MG TABLET PO PRN (17:50)
[2021-12-26] MEDS ORDERED: ALUMINUM/MAGNESIUM SUSP 30 ML UDC PO PRN (17:50)
--- NOTE | 2021-12-26 17:50 | Operative Report ---
Post Operative Report Pre & Post Diagnosis Operation Date: 12/26/21 08:30 Pre-Op Diagnosis: Right Femoral Neck Fracture Post-Op Diagnosis: Right Femoral Neck Fracture I identified the patient and participated in the time-out.: Yes Procedure Operation Date: 12/26/21 08:30 Actual Procedures p Right Hip Hemiarthroplasty Cemented(Right) - Stephen Frausto MD Surgeon Stephen Frausto MD Health Insurance Assessor Akhil Zhang PA-C; Jerry Roper PA-C Estimated Blood Loss 50 Findings Consistent with Post-Op Diagnosis Specimens femoral head Description of Procedure I was present for implant placement, closure and dressing application. No fellow present. Please see Dr. Frausto procedure note for specifics of the case. I attest to the content of the Intraoperative Record and any orders documented therein. Any exceptions are noted below.
--- NOTE | 2021-12-26 18:13 | XRay Report ---
XR pelvis 1-2V routine CLINICAL HISTORY: Postop right hip prosthesis. COMPARISON STUDY: Right hip 12/25/2021. FINDINGS: Status post a right hip hemiarthroplasty. The hardware is intact. No fracture or dislocatio n. IMPRESSION: Status post right hip hemiarthroplasty. No evidence for hardware complication. ACT 112: Negative or not required by law. Electronically signed by: Young Monge M.D. 12/26/2021 6:12 PM
--- NOTE | 2021-12-26 18:43 | Anesthesiology Progress Note ---
Date of Service December 26, 2021 Anesthesia Post Procedure Vital Signs Vital Signs: Temp Pulse Pulse Resp BP BP Pulse Ox 12/26/21 18:25 36.8 C 85 14 141/61 H 95 12/26/21 18:15 88 14 143/62 H 94 12/26/21 18:05 90 20 138/75 97 12/26/21 17:55 83 12 124/67 100 12/26/21 17:49 36.8 C 86 14 109/68 94 12/26/21 14:20 36.8 C 89 18 164/76 H 98 12/26/21 11:00 37.1 C 90 18 165/75 H 94 12/26/21 07:14 37.3 C 94 H 18 162/81 H 93 12/26/21 06:24 37.0 C 87 14 154/80 H 95 12/26/21 02:04 36.9 C 92 H 16 131/78 96 12/25/21 23:24 36.9 C 86 14 152/84 H 96 12/25/21 19:15 36.9 C 118 H 16 167/93 H 94 Pain Intensity Right Leg: Pain Intensity: 6 Right Hip: Pain Intensity: 5 Notes Mental Status: alert / awake / arousable Patient Amnestic to Procedure: No Nausea / Vomiting: adequately controlled Pain: adequately controlled Airway Patency, RR, SpO2: stable & adequate BP & HR: stable & adequate Hydration State: stable & adequate Neuraxial Anesthesia: was administered and sensory block is resolving Anesthetic Complications: no major complications apparent and Pt Satisfied with anesthetic care
--- NOTE | 2021-12-26 22:39 | Operative Report (OR) ---
DATE OF SURGERY: 12/26/2021 PREOPERATIVE DIAGNOSIS: Right displaced femoral neck fracture. POSTOPERATIVE DIAGNOSIS: Right displaced femoral neck fracture. OPERATION PERFORMED: Right hip cemented bipolar hemiarthroplasty. SURGEON: Stephen Frausto MD. CRTTS SURGEON: Keisha Roper PA-C and Akhil Zhang PA-C. ESTIMATED BLOOD LOSS: 50 mL. INTRAVENOUS FLUIDS: 1200 mL crystalloid. SPECIMENS: Right femoral head. COMPLICATIONS: None. IMPLANTS: 1. [place] size 5 standard offset cemented femoral stem. 2. An 11 mm diameter cementralizer. 3. A 46 bipolar self-centering head. 4. A 28 mm +5 metal femoral head. INDICATIONS: The patient is an 81-year-old female who took a ground level fall yesterday at home. She had immediate onset of right buttock pain. X-rays demonstrated a displaced right femoral neck fracture. I had a long discussion with the patient and her daughter about the diagnosis and treatment options. They elected to proceed with surgery, after understanding all the risks and benefits, alternatives, expected outcomes. Informed consent was signed by her daughter who is her power of senior trial attorney. OPERATIVE FINDINGS: A bipolar hemiarthroplasty was performed through a posterior approach. DESCRIPTION OF OPERATION: The patient was identified in the preoperative holding area where her surgical site was marked. She was brought back to the main operating room where a spinal was placed on the hospital bed. She was then carefully moved on the operating room table and then rolled up into the lateral decubitus position. Axillary roll was placed. All bony prominences were padded. Perioperative antibiotics were administered. She was prepped and draped in the usual sterile fashion. Prior to incision, a multidisciplinary timeout was called. All in the room were in agreement. We began by making a 14 cm incision for a posterior approach to the hip. We dissected down to subcutaneous tissues to the level of fascia. The fascia was incised in line with the incision. The [place]arn[place] bow was placed. The trochanteric bursa was excised. Fat was swept off the piriformis and short external rotators. The sciatic nerve was identified and protected throughout the case. Piriformis and short external rotators were dissected off the posterior aspect of the hip capsule. A box cut was made in the hip capsule, taking great care to not damage the labrum, and the hip joint was entered. We then removed the femoral head with a corkscrew. This was sized on the back table to a 46. The acetabulum was then exposed. The ligamentum teres was removed with electrocautery. The size 46 head trial was inserted into the acetabulum, and it had a perfect fit. Next, the femoral neck was exposed. The saw was used to make a fresh femoral neck cut approximately 10 mm above the lesser trochanter. The lateral femoral neck was removed with the box osteotome. The canal finder was used followed by the lateralizing reamer. We then began broaching. We broached it all the way up to a size 5. This was a little bit loose with torsional stability, but had good axial stability. Because I planned on cementing her, I elected to stop here as I did not want to risk a femur fracture by upsizing her femoral component. Next, the standard offset femoral neck with a +1.5 head was placed on the femoral broach and we reduced the hip. She was just a little bit short. Therefore, the hip was dislocated. We then removed the femoral trial and cemented in the real size 5 standard offset stem, held in approximately 20 degrees of femoral neck anteversion. We waited 15 minutes until the cement was completely dried. We then retrialed with a +5 offset femoral head. Her leg lengths were now symmetric. She had excellent stability with internal rotation with the hip flexed to 90 past 60 degrees before impinging. We then removed the femoral head trial and cleaned and dried the trunnion. The real +5 bipolar head was assembled on the back table. We then implanted it on the trunnion. Hip was atraumatically reduced. We then began to close. The wound was irrigated out with copious amounts of sterile Betadine solution. We then placed 1 gram of tranexamic acid diluted in 100 mL of saline and the wound for postoperative hemostasis. After 3 minutes, this was suctioned out. We then closed the piriformis and short external rotators through bone tunnels in the posterior aspect of the greater trochanter with #2 Vicryl sutures. The fascia was then run with a looped #1 PDS. The subcuticular layer was closed with #1 PDS in running fashion. 2-0 Vicryl suture in running fashion was used for the dermis. ZipLine was used for the skin followed by Silverlon dressing, 4x4s, ABDs, and foam tape. She was then carefully moved on to the hospital bed in the supine position, transferred to the recovery room in stable condition. POSTOPERATIVE COURSE: The patient will be admitted back to the floor and the internal medicine service. She will be weightbearing as tolerated with posterior hip precautions. Lindanox for DVT prophylaxis. Job ID: [id number]
[2021-12-26] MEDS: ACETAMINOPHEN 500 MG TAB PO SCH (23:45)
[2021-12-26] MEDS: DOCUSATE SODIUM 100 MG CAP PO SCH (23:46)
[2021-12-26] MEDS: KETOROLAC TROMETHAMINE 15 MG/ML VIAL IV SCH (23:47)
[2021-12-26] MEDS: DOCUSATE SODIUM/SENNA 50/8.6MG TAB PO SCH (23:47)
[2021-12-26] MEDS: SENNA 8.6 MG TAB PO SCH (23:49)
[2021-12-27] MEDS: KETOROLAC TROMETHAMINE 15 MG/ML VIAL IV SCH ×3 (06:28→14:11)
[2021-12-27] MEDS: ACETAMINOPHEN 500 MG TAB PO SCH ×3 (06:29→21:57)
[2021-12-27] MEDS: SODIUM CHLORIDE 0.9% 1000ML 1,000 ML IV SCH (06:48)
[2021-12-27] MEDS: amLODIPine BESYLATE 5 MG TAB PO SCH (07:39)
[2021-12-27] MEDS: CHOLECALCIFEROL 1,000 UNITS 25 MCG TAB PO SCH (07:40)
[2021-12-27] MEDS: LORATADINE 10 MG TAB PO SCH (07:40)
[2021-12-27] MEDS: CITALOPRAM 20 MG TAB PO SCH (07:40)
[2021-12-27] MEDS: MULTIVITAMIN TAB PO SCH (07:41)
[2021-12-27] MEDS: DOCUSATE SODIUM 100 MG CAP PO SCH ×2 (07:41→21:56)
[2021-12-27] MEDS: ENOXAPARIN INJ 40 MG/0.4 ML SYR SQ SCH (07:41)
[2021-12-27] MEDS: ceFAZolin 2000MG 2,000 MG/15 ML SYR IV SCH (07:43)
[2021-12-27] MEDS ORDERED: dexAMETHasone 4 MG TAB PO SCH (08:00)
[2021-12-27 08:18] LABS: Basophils # (auto) 0.01 K/uL (0-0.2); Basophils % (auto) 0.1 %; Eosinophils # (auto) 0.02 K/uL (0-0.5); Eosinophils % (auto) 0.2 %; Hematocrit (blood only) 34.4 % (37-47); Hemoglobin 11.1 g/dL (12.0-16.0); Immature Granulocytes # (auto) 0.01 K/uL (0.00-0.02); Immature Granulocytes % (auto) 0.1 %; Lymphocytes # (auto) 0.61 K/uL (1.2-3.4); Lymphocytes % (auto) 5.6 %; Mean Corpuscular Hemoglobin 28.7 pg (25-34); Mean Corpuscular Hgb Conc 32.3 g/dL (32-36); Mean Corpuscular Volume 88.9 fL (80-100); Monocytes # (auto) 1.04 K/uL (0.11-0.59); Monocytes % (auto) 9.5 %; Neutrophils # (auto) 9.27 K/uL (1.4-6.5); Neutrophils % (auto) 84.5 %; Platelet Count 203 K/uL (130-400); RDW Standard Deviation 41.9 fL (36.4-46.3); Red Blood Count 3.87 M/uL (4.2-5.4); White Blood Count 10.96 K/uL (4.8-10.8)
[2021-12-27 08:40] LABS: BUN Creatinine Ratio 27.9 (10-20); Calcium 9.3 mg/dl (8.5-10.1); Creatinine Clr Calc Pharmacy 52.1 ml/min; Est GFR (African American) 93.8 ml/min; Est GFR (Non-African American) 80.9 ml/min; Potassium 4.2 mmol/L (3.5-5.1)
--- NOTE | 2021-12-27 12:08 | Orthopedic Progress Note ---
Date of Service December 27, 2021 Assessment & Plan (1) Closed right hip fracture: Plan: POD 1 - s/p right hip hemiarthroplasty PT/OT to start today WBAT with assistance of a walker Posterior hip precautions at all times. Keep abduction pillow between knees with in bed. Keep silverlon dressing in place until post op follow up appointment. Raghav stockings, ASA BID for DVT prophylaxis. Findings discussed with Dr. Frausto Case management for disposition. Admission and Anticipated Discharge Date Admission Date: December 25, 2021 Subjective Patient is resting in bed. Does not remember having surgery or injuring her right hip. Denies pain in right hip. Physical Exam Musculoskeletal: Right hip incision clean and dry. Silverlon intact, post op dressings intact. Able to actively bend her knee, with mild discomfort in her hip. Able to independently SLR right lower extremity. No calf tenderness. No distal edema. Raghav in place. Dorsalis pedis and posterior tib pulses 1+, distal sensation normal. Results & Data ([facility]) Vital Signs (Past 12 Hours) Vital Signs Temp Pulse Resp BP Pulse Ox 12/27/21 07:42 36.9 C 76 16 132/74 95 12/27/21 04:01 36.5 C 69 18 119/72 97 Laboratory Results 12/27/21 12/27/21 Range/Units 07:09 07:09 WBC 10.96 H (4.8-10.8) K/uL RBC 3.87 L (4.2-5.4) M/uL Hgb 11.1 L (12.0-16.0) g/dL Hct 34.4 L (37-47) % MCV 88.9 (80-100) fL MCH 28.7 (25-34) pg MCHC 32.3 (32-36) g/dL RDW Std Deviation 41.9 (36.4-46.3) fL RDW Coeff of Tyesha 13.0 (11.5-14.5) % Plt Count 203 (130-400) K/uL MPV 10.0 (7.4-10.4) fL Immature Gran % (Auto) 0.1 % Neut % (Auto) 84.5 % Lymph % (Auto) 5.6 % Hitchcock % (Auto) 9.5 % Eos % (Auto) 0.2 % Baso % (Auto) 0.1 % Neut # (Auto) 9.27 H (1.4-6.5) K/uL Lymph # (Auto) 0.61 L (1.2-3.4) K/uL Hitchcock # (Auto) 1.04 H (0.11-0.59) K/uL Eos # (Auto) 0.02 (0-0.5) K/uL Baso # (Auto) 0.01 (0-0.2) K/uL Immature Gran # (Auto) 0.01 (0.00-0.02) K/uL Sodium 135 L (136-145) mmol/L Potassium 4.2 (3.5-5.1) mmol/L Chloride 103 (98-107) mmol/L Carbon Dioxide 28 (21-32) mmol/L Anion Gap 4 (3-11) BUN 19 (6-23) mg/dl Creatinine 0.68 (0.6-1.2) mg/dl Est Cr Clr Drug Dosing 52.1 ml/min Est GFR ( Amer) 93.8 ml/min Est GFR (Non-Af Amer) 80.9 ml/min BUN/Creatinine Ratio 27.9 H (10-20) Glucose 117 H (70-99(Fasting)) mg/dl Calcium 9.3 (8.5-10.1) mg/dl Diagnostic Findings XR pelvis 1-2V routine CLINICAL HISTORY: Postop right hip prosthesis. COMPARISON STUDY: Right hip 12/25/2021. FINDINGS: Status post a right hip hemiarthroplasty. The hardware is intact. No fracture or dislocation. IMPRESSION: Status post right hip hemiarthroplasty. No evidence for hardware complication. (1) Closed right hip fracture Encounter type: initial encounter Qualified Code(s): S72.001A - Fracture of unspecified part of neck of right femur, initial encounter for closed fracture
[2021-12-27] MEDS: DOCUSATE SODIUM/SENNA 50/8.6MG TAB PO SCH (21:55)
[2021-12-27] MEDS: SENNA 8.6 MG TAB PO SCH (21:56)
--- NOTE | 2021-12-27 23:49 | Hospitalist Progress Note ---
Date of Service December 27, 2021 Assessment & Plan (1) Closed right hip fracture: (2) HTN (hypertension): (3) Dementia: (4) Hyperparathyroidism: (5) DVT prophylaxis: Plan: This is a 81-year-old female who has significant past medical history of palsy with residual left-sided facial droop, dementia, HTN, osteoporosis, hyperparathyroidism, prediabetes who presents to ED after sustaining a fall prior to arrival. Hip Xr: Acute right femoral neck fracture Chest x-ray: no acute abnormality EK bpm normal sinus rhythm Patient has good functional capacity, typically ambulates without a walker and can meet at least 4 METS criteria. She denies any chest pain or shortness of breath. Denies prior history of CAD/CVA. Closed right femoral neck fracture S/P day #1 right hip hemiarthroplasty performed by Dr Frausto No postop complication Continue pain control PT/OT eval Continue incentive spirometry WBAT with assistance of a walker as per ortho Posterior hip precautions at all times. Keep abduction pillow between knees with in bed. fall precaution HTN BP stbale Continue amlodipine with parameters Osteoporosis Treated with Prolia, but has not had in the past year. Vit D level pending Hyperparathyroidism Previously followed endocrinology Stable, follows PCP. No hypercalcemia noted. 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 Stable Dementia Monitor for delirium Reorient frequently Daughter at bedside Jo-Ann Lee - [phone] DVT ppx: Started on Lovenox CODE status Full code Dispo: Will need inpatient rehab Admission and Anticipated Discharge Date Admission Date: December 25, 2021 Subjective Pt was seen and examined for postop follow up Lying in bed with no acute distress with daughter at bedside She said that her pain is controlled Denies any chest pain, palpitation, dizziness and SOB Review of Systems Review of Systems: All systems reviewed & are unremarkable except as noted in Subjective Physical Exam Physical Exam: General- No acute distress Head- atraumatic Eyes- PERRL, EOMI, ENT- oropharynx clear Neck- supple, no JVD Lungs- clear to auscultation Heart- regular rhythm; no murmur Abdomen- normal bowel sounds, soft, nontender Extremities- no calf tenderness Neuro- alert, oriented x 3; PERRL, EOMI; no facial palsy; no dysarthria Skin- warm & dry Results & Data Results & Data ([facility]) Vital Signs (Past 12 Hours) Vital Signs Temp Pulse Resp BP Pulse Ox Pulse Ox 12/27/21 22:00 36.9 C 97 H 18 129/73 92 12/27/21 16:07 36.6 C 88 16 121/71 91 12/27/21 14:01 94 (1) Dementia Dementia behavioral disturbance: without behavioral disturbance Dementia type: unspecified type Qualified Code(s): F03.90 - Unspecified dementia without behavioral disturbance (2) Closed right hip fracture Encounter type: initial encounter Qualified Code(s): S72.001A - Fracture of unspecified part of neck of right femur, initial encounter for closed fracture
[2021-12-28] MEDS: ACETAMINOPHEN 500 MG TAB PO SCH ×3 (06:07→21:56)
--- NOTE | 2021-12-28 08:11 | Orthopedic Progress Note ---
Date of Service December 28, 2021 Assessment & Plan (1) Status post hip hemiarthroplasty: Plan: Patient was seen in her room this morning. Continue with PT/OT. Anticipate discharge to longterm facility for rehab before return to [facility]. She did participate in PT/OT yesterday and did reasonably well. Continue with weightbearing as tolerated, using her walker. Dressings can be changed tomorrow. Continue with the abduction pillow and hip replacement precautions. Continue Lovenox for DVT prophylaxis. Admission and Anticipated Discharge Date Admission Date: December 25, 2021 Subjective Patient is seen in her room this morning. She has no complaints at this time. States she feels well. She is pleasantly conversive this morning. She does not recall her physical therapy session yesterday. Denies any chest pain, shortness of breath, abdominal pain, numbness, or tingling. She states her right hip is "all right". She does have some discomfort. Foam wedge is in place between her legs. Physical Exam Physical Exam: General: Well-developed, well-nourished, elderly white female, in no acute distress. Sitting in bed. Alert and conversive. Skin: Warm and dry with good turgor. No rashes. Ecchymosis or edema present right leg. Surgical dressing is in place. It is dry. Musculoskeletal: Right hip evaluation reveals intact motor function to the ankle and toes. She is able to lift her leg with some difficulty. No shortening. Neurologic: Gross sensation is intact across the right leg by soft touch. Peripheral pulses are 2+. Sensation and pulses are equal to the left side. Results & Data ([facility]) Vital Signs (Past 12 Hours) Vital Signs Temp Pulse Resp BP Pulse Ox 12/27/21 22:00 36.9 C 97 H 18 129/73 92
[2021-12-28] MEDS: DOCUSATE SODIUM 100 MG CAP PO SCH ×2 (08:45→20:47)
[2021-12-28] MEDS: LORATADINE 10 MG TAB PO SCH (08:45)
[2021-12-28] MEDS: MULTIVITAMIN TAB PO SCH (08:45)
[2021-12-28] MEDS: CITALOPRAM 20 MG TAB PO SCH (08:45)
[2021-12-28] MEDS: CHOLECALCIFEROL 1,000 UNITS 25 MCG TAB PO SCH (08:46)
[2021-12-28] MEDS: ENOXAPARIN INJ 40 MG/0.4 ML SYR SQ SCH (08:46)
[2021-12-28] MEDS: amLODIPine BESYLATE 5 MG TAB PO SCH (08:46)
[2021-12-28 09:27] LABS: Hematocrit (blood only) 33.5 % (37-47); Hemoglobin 11.1 g/dL (12.0-16.0); Mean Corpuscular Hemoglobin 29.1 pg (25-34); Mean Corpuscular Hgb Conc 33.1 g/dL (32-36); Mean Corpuscular Volume 87.7 fL (80-100); Mean Platelet Volume 9.9 fL (7.4-10.4); Platelet Count 197 K/uL (130-400); RDW Coefficient of Variation 12.9 % (11.5-14.5); RDW Standard Deviation 41.8 fL (36.4-46.3); Red Blood Count 3.82 M/uL (4.2-5.4); White Blood Count 11.66 K/uL (4.8-10.8)
[2021-12-28] MEDS: DOCUSATE SODIUM/SENNA 50/8.6MG TAB PO SCH (20:47)
[2021-12-28] MEDS: SENNA 8.6 MG TAB PO SCH (20:47)
--- NOTE | 2021-12-28 23:47 | Hospitalist Progress Note ---
Date of Service December 28, 2021 Assessment & Plan (1) Closed right hip fracture: (2) HTN (hypertension): (3) Dementia: (4) Hyperparathyroidism: (5) DVT prophylaxis: Plan: This is a 81-year-old female who has significant past medical history of palsy with residual left-sided facial droop, dementia, HTN, osteoporosis, hyperparathyroidism, prediabetes who presents to ED after sustaining a fall prior to arrival. Closed right femoral neck fracture Possible Osteoporotic right femoral neck fracture in the setting of ground level fall Hip x-ray showed acute right femoral neck fracture S/P day #2 right hip hemiarthroplasty performed by Dr Frausto No postop complication Continue pain control PT/OT eval Continue incentive spirometry WBAT with assistance of a walker as per ortho Posterior hip precautions at all times. Keep abduction pillow between knees with in bed. fall precaution HTN BP stbale Continue amlodipine with parameters Osteoporosis Treated with Prolia, but has not had in the past year. Vit D level pending Hyperparathyroidism Previously followed endocrinology Stable, follows PCP. No hypercalcemia noted. 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 Stable Dementia Monitor for delirium Reorient frequently Daughter at bedside Jo-Ann Lee - [phone] DVT ppx: Started on Lovenox CODE status Full code Dispo: Will need inpatient rehab Admission and Anticipated Discharge Date Admission Date: December 25, 2021 Subjective Patient was seen and examined for postop follow-up Lying in bed no acute distress getting ready to eat lunch Denies any new complaint Review of Systems Review of Systems: All systems reviewed & are unremarkable except as noted in Subjective Physical Exam Physical Exam: General- No acute distress Head- atraumatic Eyes- PERRL, EOMI, ENT- oropharynx clear Neck- supple, no JVD Lungs- clear to auscultation Heart- regular rhythm; no murmur Abdomen- normal bowel sounds, soft, nontender Extremities- no calf tenderness Neuro- alert, oriented x 3; PERRL, EOMI; no facial palsy; no dysarthria Skin- warm & dry Results & Data Results & Data ([facility]) Vital Signs (Past 12 Hours) Vital Signs Temp Pulse Resp BP Pulse Ox 12/28/21 23:03 36.9 C 82 16 168/83 H 92 12/28/21 16:05 92 12/28/21 15:36 37 C 80 16 119/67 93 (1) Dementia Dementia behavioral disturbance: without behavioral disturbance Dementia type: unspecified type Qualified Code(s): F03.90 - Unspecified dementia without behavioral disturbance (2) Closed right hip fracture Encounter type: initial encounter Qualified Code(s): S72.001A - Fracture of unspecified part of neck of right femur, initial encounter for closed fracture
[2021-12-29] MEDS: ACETAMINOPHEN 500 MG TAB PO SCH ×3 (05:31→19:56)
[2021-12-29] MEDS: DOCUSATE SODIUM 100 MG CAP PO SCH ×2 (09:32→19:56)
[2021-12-29] MEDS: MULTIVITAMIN TAB PO SCH (09:33)
[2021-12-29] MEDS: CHOLECALCIFEROL 1,000 UNITS 25 MCG TAB PO SCH (09:33)
[2021-12-29] MEDS: CITALOPRAM 20 MG TAB PO SCH (09:34)
[2021-12-29] MEDS: LORATADINE 10 MG TAB PO SCH (09:34)
[2021-12-29] MEDS: amLODIPine BESYLATE 5 MG TAB PO SCH (09:35)
[2021-12-29] MEDS: ENOXAPARIN INJ 40 MG/0.4 ML SYR SQ SCH (09:35)
--- NOTE | 2021-12-29 09:58 | Hospitalist Progress Note ---
Date of Service December 29, 2021 Assessment & Plan (1) Closed right hip fracture: (2) HTN (hypertension): (3) Dementia: (4) Hyperparathyroidism: (5) DVT prophylaxis: Plan: This is a 81-year-old female who has significant past medical history of palsy with residual left-sided facial droop, dementia, HTN, osteoporosis, hyperparathyroidism, prediabetes who presents to ED after sustaining a fall prior to arrival. Closed right femoral neck fracture Possible Osteoporotic right femoral neck fracture in the setting of ground level fall Hip x-ray showed acute right femoral neck fracture S/P day #3 right hip hemiarthroplasty performed by Dr Frausto No postop complication Continue pain control PT/OT eval Continue incentive spirometry WBAT with assistance of a walker as per ortho Posterior hip precautions at all times. Keep abduction pillow between knees with in bed. fall precaution HTN BP stbale Continue amlodipine with parameters Osteoporosis Treated with Prolia, but has not had in the past year. Vit D level pending Hyperparathyroidism Previously followed endocrinology Stable, follows PCP. No hypercalcemia noted. 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 Stable Dementia Monitor for delirium Reorient frequently Daughter at bedside Jo-Ann Lee - [phone] DVT ppx: On Lovenox CODE status Full code Disposition waiting for placement Admission and Anticipated Discharge Date Admission Date: December 25, 2021 Subjective Patient was seen and examined for postop follow-up Lying in bed with no acute distress Denies any new complaint Review of Systems Review of Systems: All systems reviewed & are unremarkable except as noted in Subjective Physical Exam Physical Exam: General- No acute distress Head- atraumatic Eyes- PERRL, EOMI, ENT- oropharynx clear Neck- supple, no JVD Lungs- clear to auscultation Heart- regular rhythm; no murmur Abdomen- normal bowel sounds, soft, nontender Extremities- no calf tenderness Neuro- alert, oriented x 3; PERRL, EOMI; no facial palsy; no dysarthria Skin- warm & dry Results & Data Results & Data ([facility]) Vital Signs (Past 12 Hours) Vital Signs Temp Pulse Resp BP BP Pulse Ox 12/29/21 09:31 102 H 148/80 H 12/29/21 08:12 36.6 C 83 16 169/84 H 94 03/24/22 23:03 36.9 C 82 16 168/83 H 92 (1) Dementia Dementia behavioral disturbance: without behavioral disturbance Dementia type: unspecified type Qualified Code(s): F03.90 - Unspecified dementia without behavioral disturbance (2) Closed right hip fracture Encounter type: initial encounter Qualified Code(s): S72.001A - Fracture of unspecified part of neck of right femur, initial encounter for closed fracture
--- NOTE | 2021-12-29 11:30 | Orthopedic Progress Note ---
Date of Service December 29, 2021 Assessment & Plan (1) Closed right hip fracture: Plan: POD 3 - s/p right hip hemiarthroplasty PT/OT WBAT with assistance of a walker Posterior hip precautions at all times. Keep abduction pillow between knees with in bed. Keep silverlon dressing in place until post op follow up appointment. Raghav stockings, ASA BID for DVT prophylaxis. Findings discussed with Dr. Frausto Case management Eval; plan on discharge to senior care facility at [facility] for rehab Patient will have a 2-week postoperative follow-up at [facility] orthopedics with either SAMMIE Roper PA-C or Dr. Frausto. With questions contact the clinic at [phone] Orthopedically the patient is stable and is cleared for discharge upon medicine approval. Admission and Anticipated Discharge Date Admission Date: December 25, 2021 Subjective This 81-year-old female is3 days status post right hip hemiarthroplasty after sustaining a femoral neck fracture from a ground-level fall. She states she really does not have any significant hip pain.. She states she has been up to the bathroom and into the bedside chair with assistance and with her walker. She states that she was informed that she will be going to [facility] for rehab before being allowed to go back to [facility]. Currently the patient denies any chest pain, shortness of breath, fever, chills, sweats, lethargy, numbness or tingling in her right lower extremity. She also denies nausea, vomiting, diarrhea or difficulty voiding. She states she does feel depressed due to her current medical situation. Review of Systems Review of Systems: All systems reviewed & are unremarkable except as noted in Subjective Physical Exam Physical Exam: Right hip: Logroll test is negative. Patient does have some difficulty performing an active straight leg raise test. She is able to actively dorsi and plantarflex her foot without difficulty. Knee range of motion is from 0 to 85 degrees. Light passive flexion of her hip to 80 degrees causes some slight pain. However she has no pain with light passive internal and external hip rotation. Her dressing is clean dry and intact. She is neurovascular intact in right lower extremity. Results & Data ([facility]) Vital Signs (Past 12 Hours) Vital Signs Temp Pulse Resp BP Pulse Ox 12/29/21 09:31 102 H 148/80 H 12/29/21 08:12 36.6 C 83 16 169/84 H 94 Diagnostic Findings Laboratory Results WBC 11.66 K/uL (4.8-10.8) H 12/28/21 09:11 RBC 3.82 M/uL (4.2-5.4) L 12/28/21 09:11 Hgb 11.1 g/dL (12.0-16.0) L 12/28/21 09:11 Hct 33.5 % (37-47) L 12/28/21 09:11 MCV 87.7 fL (80-100) 12/28/21 09:11 MCH 29.1 pg (25-34) 12/28/21 09:11 MCHC 33.1 g/dL (32-36) 12/28/21 09:11 RDW Std Deviation 41.8 fL (36.4-46.3) 12/28/21 09:11 RDW Coeff of Tyesha 12.9 % (11.5-14.5) 12/28/21 09:11 Plt Count 197 K/uL (130-400) 12/28/21 09:11 MPV 9.9 fL (7.4-10.4) 12/28/21 09:11 Immature Gran % (Auto) 0.1 % 12/27/21 07:09 Neut % (Auto) 84.5 % 12/27/21 07:09 Lymph % (Auto) 5.6 % 12/27/21 07:09 Randolph % (Auto) 9.5 % 12/27/21 07:09 Eos % (Auto) 0.2 % 12/27/21 07:09 Baso % (Auto) 0.1 % 12/27/21 07:09 Neut # (Auto) 9.27 K/uL (1.4-6.5) H 12/27/21 07:09 Lymph # (Auto) 0.61 K/uL (1.2-3.4) L 12/27/21 07:09 Randolph # (Auto) 1.04 K/uL (0.11-0.59) H 12/27/21 07:09 Eos # (Auto) 0.02 K/uL (0-0.5) 12/27/21 07:09 Baso # (Auto) 0.01 K/uL (0-0.2) 12/27/21 07:09 Immature Gran # (Auto) 0.01 K/uL (0.00-0.02) 12/27/21 07:09 PT 10.9 Seconds (9.0-12.0) 12/25/21 15:17 INR 1.0 (0.9-1.1) 12/25/21 15:17 APTT 23.4 Seconds (21.0-31.0) 12/25/21 15:17 PTT Ratio 0.9 12/25/21 15:17 Sodium 135 mmol/L (136-145) L 12/27/21 07:09 Potassium 4.2 mmol/L (3.5-5.1) 12/27/21 07:09 Chloride 103 mmol/L (98-107) 12/27/21 07:09 Carbon Dioxide 28 mmol/L (21-32) 12/27/21 07:09 Anion Gap 4 (3-11) 12/27/21 07:09 BUN 19 mg/dl (6-23) 12/27/21 07:09 Creatinine 0.68 mg/dl (0.6-1.2) 12/27/21 07:09 Est Cr Clr Drug Dosing 52.1 ml/min 12/27/21 07:09 Est GFR ( Amer) 93.8 ml/min 12/27/21 07:09 Est GFR (Non-Af Amer) 80.9 ml/min 12/27/21 07:09 BUN/Creatinine Ratio 27.9 (10-20) H 12/27/21 07:09 Glucose 117 mg/dl (70-99(Fasting)) H 12/27/21 07:09 Calcium 9.3 mg/dl (8.5-10.1) 12/27/21 07:09 Magnesium 2.1 mg/dl (1.7-2.4) 12/26/21 07:11 Total Bilirubin 0.5 mg/dl (0.2-1.0) 12/26/21 07:11 AST 14 U/L (13-39) 12/26/21 07:11 ALT 6 U/L (7-52) L 12/26/21 07:11 Alkaline Phosphatase 75 U/L (34-104) 12/26/21 07:11 Total Protein 7.2 gm/dl (6.0-8.3) 12/26/21 07:11 Albumin 4.1 gm/dl (3.4-5.0) 12/26/21 07:11 Globulin 3.1 gm/dl (2.5-4.0) 12/26/21 07:11 Albumin/Globulin Ratio 1.3 (0.9-2) 12/26/21 07:11 Urine Color Yellow 12/25/21 15:32 Urine Appearance Clear (Clear) 12/25/21 15:32 Urine pH 8.5 (4.5-7.5) H 12/25/21 15:32 Ur Specific [place] 1.009 (1.000-1.030) 12/25/21 15:32 Urine Protein Negative (Negative) 12/25/21 15:32 Urine Glucose (UA) Negative (Negative) 12/25/21 15:32 Urine Ketones Negative (Negative) 12/25/21 15:32 Urine Blood Trace (Negative) H 12/25/21 15:32 Urine Nitrite Negative (Negative) 12/25/21 15:32 Urine Bilirubin Negative (Negative) 12/25/21 15:32 Urine Urobilinogen Negative (Negative) 12/25/21 15:32 Ur Leukocyte Esterase Negative (Negative) 12/25/21 15:32 Urine WBC (Auto) 1-5 /hpf (0-5) 12/25/21 15:32 Urine RBC (Auto) 0-4 /hpf (0-4) 12/25/21 15:32 U Hyaline Cast (Auto) 0 /lpf (0-5) 12/25/21 15:32 U Epithel Cells (Auto) 10-20 /lpf (0-5) H 12/25/21 15:32 Urine Bacteria (Auto) Negative (Negative) 12/25/21 15:32 Nasal Screen MRSA (PCR) Negative (Negative) 12/25/21 18:52 SARS-CoV-2, RNA, NAAT NEGATIVE (NEGATIVE) 12/25/21 Unknown Blood Type A Negative 12/25/21 15:26 Antibody Screen NEGATIVE 12/25/21 15:26 Impressions Chest X-Ray 12/25/21 14:54 SINGLE VIEW CHEST CLINICAL HISTORY: Preoperative examination. Hip fracture FINDINGS: An AP, portable, supine chest radiograph is obtained. No prior studies are available for comparison at the time of dictation. The cardiomediastinal silhouette is unremarkable noting atherosclerotic calcification of the thoracic aorta. There is elevation of the right hemidiaphragm with right basilar consolidation. There is also mild scarring/atelectasis at the left lung base. Nonspecific interstitial thickening is likely chronic. No airspace consolidation, large pleural effusion, or pneumothorax is seen. The skeletal structures are osteopenic. The bony thorax is grossly intact. Surgical clips project over the left lower chest. Cholecystectomy clips are noted in the right upper quadrant. IMPRESSION: No acute cardiopulmonary abnormality. ACT 112: Negative or not required by law. Electronically signed by: Abdoulaye Brumfield M.D. 12/25/2021 4:22 PM Hip X-Ray 12/25/21 14:54 XR hip RT min 2V CLINICAL HISTORY: fall, hip pain TECHNIQUE: 2 views of the right hip were obtained. Comparison: None available at the time of this dictation. FINDINGS: There is an acute femoral neck fracture, likely subcapital or transcervical. The alignment is anatomic. Joint spaces are well-preserved. Soft tissue swelling is seen about the knee. IMPRESSION: Acute right femoral neck fracture. ACT 112: Negative or not required by law. Electronically signed by: Hans Benitez M.D. 12/25/2021 4:24 PM Pelvis X-Ray 12/26/21 17:50 XR pelvis 1-2V routine CLINICAL HISTORY: Postop right hip prosthesis. COMPARISON STUDY: Right hip 12/25/2021. FINDINGS: Status post a right hip hemiarthroplasty. The hardware is intact. No fracture or dislocation. IMPRESSION: Status post right hip hemiarthroplasty. No evidence for hardware complication. ACT 112: Negative or not required by law. Electronically signed by: Young Monge M.D. 12/26/2021 6:12 PM (1) Closed right hip fracture Encounter type: initial encounter Qualified Code(s): S72.001A - Fracture of unspecified part of neck of right femur, initial encounter for closed fracture
[2021-12-29] MEDS ORDERED: OLANZapine 10 MG/2.1 ML SDV IM PRN (15:21)
[2021-12-29] MEDS: SENNA 8.6 MG TAB PO SCH (19:56)
[2021-12-29] MEDS: DOCUSATE SODIUM/SENNA 50/8.6MG TAB PO SCH (19:56)
[2021-12-30] MEDS: ACETAMINOPHEN 500 MG TAB PO SCH ×3 (05:42→20:35)
[2021-12-30] MEDS: CHOLECALCIFEROL 1,000 UNITS 25 MCG TAB PO SCH (09:07)
[2021-12-30] MEDS: MULTIVITAMIN TAB PO SCH (09:08)
[2021-12-30] MEDS: LORATADINE 10 MG TAB PO SCH (09:09)
[2021-12-30] MEDS: ENOXAPARIN INJ 40 MG/0.4 ML SYR SQ SCH (09:10)
[2021-12-30] MEDS: amLODIPine BESYLATE 5 MG TAB PO SCH (09:10)
[2021-12-30] MEDS: DOCUSATE SODIUM 100 MG CAP PO SCH ×2 (09:10→20:35)
[2021-12-30] MEDS: CITALOPRAM 20 MG TAB PO SCH (09:19)
[2021-12-30] MEDS: SENNA 8.6 MG TAB PO SCH (20:34)
[2021-12-30] MEDS: DOCUSATE SODIUM/SENNA 50/8.6MG TAB PO SCH (20:35)
--- NOTE | 2021-12-30 23:09 | Hospitalist Progress Note ---
Date of Service December 30, 2021 Assessment & Plan (1) Closed right hip fracture: (2) HTN (hypertension): (3) Dementia: (4) Hyperparathyroidism: (5) DVT prophylaxis: Plan: This is a 81-year-old female who has significant past medical history of palsy with residual left-sided facial droop, dementia, HTN, osteoporosis, hyperparathyroidism, prediabetes who presents to ED after sustaining a fall prior to arrival. Closed right femoral neck fracture Possible Osteoporotic right femoral neck fracture in the setting of ground level fall Hip x-ray showed acute right femoral neck fracture S/P day #4 right hip hemiarthroplasty performed by Dr Frausto No postop complication Continue pain control PT/OT eval recommended placement Continue incentive spirometry WBAT with assistance of a walker as per ortho Posterior hip precautions at all times. Keep abduction pillow between knees with in bed. Raghav stockings, ASA BID for DVT prophylaxis. We will fall precaution Follow-up with [facility] orthopedic with either Judson BOWERS or Dr. Lisbet Vanegas from orthopedic standpoint to discharge HTN BP stbale Continue amlodipine with parameters Osteoporosis Treated with Prolia, but has not had in the past year. Vit D level pending Hyperparathyroidism Previously followed endocrinology Stable, follows PCP. No hypercalcemia noted. 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 Stable Dementia Monitor for delirium Reorient frequently Daughter at bedside Jo-Ann Lee - [phone] DVT ppx: On Lovenox Ortho recommended aspirin twice daily on discharge CODE status Full code Disposition waiting for placement Admission and Anticipated Discharge Date Admission Date: December 25, 2021 Subjective Patient was seen and examined for postop follow-up Sitting in chair with no acute distress She has been walking to the bathroom with with personal banking assistant She said that she feels okay and she denies any pain Denies any chest pain palpitation dizziness and shortness of breath Review of Systems Review of Systems: All systems reviewed & are unremarkable except as noted in Subjective Physical Exam Physical Exam: General- No acute distress Head- atraumatic Eyes- PERRL, EOMI, ENT- oropharynx clear Neck- supple, no JVD Lungs- clear to auscultation Heart- regular rhythm; no murmur Abdomen- normal bowel sounds, soft, nontender Extremities- no calf tenderness Neuro- alert, oriented x 3; PERRL, EOMI; no facial palsy; no dysarthria Skin- warm & dry Results & Data Results & Data ([facility]) Vital Signs (Past 12 Hours) Vital Signs Temp Pulse Resp BP Pulse Ox Pulse Ox 12/30/21 16:00 36.8 C 85 18 106/68 92 12/30/21 15:00 95 (1) Dementia Dementia behavioral disturbance: without behavioral disturbance Dementia typ e: unspecified type Qualified Code(s): F03.90 - Unspecified dementia without behavioral disturbance (2) Closed right hip fracture Encounter type: initial encounter Qualified Code(s): S72.001A - Fracture of unspecified part of neck of right femur, initial encounter for closed fracture
[2021-12-31] MEDS: ACETAMINOPHEN 500 MG TAB PO SCH ×3 (05:18→21:14)
[2021-12-31] MEDS: ENOXAPARIN INJ 40 MG/0.4 ML SYR SQ SCH (09:06)
[2021-12-31] MEDS: CHOLECALCIFEROL 1,000 UNITS 25 MCG TAB PO SCH (09:06)
[2021-12-31] MEDS: DOCUSATE SODIUM 100 MG CAP PO SCH ×2 (09:06→21:13)
[2021-12-31] MEDS: amLODIPine BESYLATE 5 MG TAB PO SCH (09:06)
[2021-12-31] MEDS: MULTIVITAMIN TAB PO SCH (09:06)
[2021-12-31] MEDS: CITALOPRAM 20 MG TAB PO SCH (09:06)
[2021-12-31] MEDS: LORATADINE 10 MG TAB PO SCH (09:06)
[2021-12-31 13:37] LABS: Vitamin D 1,25 52 pg/mL (18-72); Vitamin D3,1,25 52 pg/mL
--- NOTE | 2021-12-31 16:29 | Hospitalist Progress Note ---
Date of Service December 31, 2021 Assessment & Plan (1) Closed right hip fracture: (2) HTN (hypertension): (3) Dementia: (4) Hyperparathyroidism: (5) DVT prophylaxis: Plan: This is a 81-year-old female who has significant past medical history of palsy with residual left-sided facial droop, dementia, HTN, osteoporosis, hyperparathyroidism, prediabetes who presents to ED after sustaining a fall prior to arrival. Closed right femoral neck fracture Possible Osteoporotic right femoral neck fracture in the setting of ground level fall Hip x-ray showed acute right femoral neck fracture S/P day #5 right hip hemiarthroplasty performed by Dr Frausto No postop complication Continue pain control PT/OT eval recommended placement Continue incentive spirometry WBAT with assistance of a walker as per ortho Posterior hip precautions at all times. Keep abduction pillow between knees with in bed. Raghav stockings, ASA BID for DVT prophylaxis. We will fall precaution Follow-up with [facility] orthopedic with either Judson BOWERS or Dr. Lisbet Vanegas from orthopedic standpoint to discharge HTN BP stable Continue amlodipine with parameters Osteoporosis Treated with Prolia, but has not had in the past year. Vit D level pending Hyperparathyroidism Previously followed endocrinology Stable, follows PCP. No hypercalcemia noted. 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 Stable Dementia Monitor for delirium Reorient frequently Daughter at bedside Jo-Ann Lee - [phone] DVT ppx: On Lovenox Ortho recommended aspirin twice daily on discharge CODE status Full code Disposition waiting for placement Admission and Anticipated Discharge Date Admission Date: December 25, 2021 Subjective Patient was seen and examined for postop follow-up Sitting in chair with no acute distress She said that she walked with therapy today and did not have any pain Denies any chest pain palpitation dizziness and shortness of breath Review of Systems Review of Systems: All systems reviewed & are unremarkable except as noted in Subjective Physical Exam Physical Exam: General- No acute distress Head- atraumatic Eyes- PERRL, EOMI, ENT- oropharynx clear Neck- supple, no JVD Lungs- clear to auscultation Heart- regular rhythm; no murmur Abdomen- normal bowel sounds, soft, nontender Extremities- no calf tenderness Neuro- alert, oriented x 3; PERRL, EOMI; no facial palsy; no dysarthria Skin- warm & dry Results & Data Results & Data ([facility]) Vital Signs (Past 12 Hours) Vital Signs Temp Pulse Resp BP Pulse Ox 12/31/21 14:46 36.6 C 82 16 101/65 92 12/31/21 07:25 36.6 C 73 16 127/79 95 (1) Dementia Dementia behavioral disturbance: without behavioral disturbance Dementia type: unspecified type Qualified Code(s): F03.90 - Unspecified dementia without behavioral disturbance (2) Closed right hip fracture Encounter type: initial encounter Qualified Code(s): S72.001A - Fracture of unspecified part of neck of right femur, initial encounter for closed fracture
[2021-12-31] MEDS: SENNA 8.6 MG TAB PO SCH (21:13)
[2021-12-31] MEDS: DOCUSATE SODIUM/SENNA 50/8.6MG TAB PO SCH (21:13)
[2022-01-01] MEDS: ACETAMINOPHEN 500 MG TAB PO SCH ×3 (05:57→20:19)
[2022-01-01] MEDS: MAGNESIUM HYDROXIDE SUSP 30 ML UDC PO PRN (07:45)
[2022-01-01] MEDS: amLODIPine BESYLATE 5 MG TAB PO SCH (07:46)
[2022-01-01] MEDS: MULTIVITAMIN TAB PO SCH (07:46)
[2022-01-01] MEDS: DOCUSATE SODIUM 100 MG CAP PO SCH ×2 (07:46→20:19)
[2022-01-01] MEDS: LORATADINE 10 MG TAB PO SCH (07:46)
[2022-01-01] MEDS: CITALOPRAM 20 MG TAB PO SCH (07:47)
[2022-01-01] MEDS: CHOLECALCIFEROL 1,000 UNITS 25 MCG TAB PO SCH (07:47)
[2022-01-01] MEDS: ENOXAPARIN INJ 40 MG/0.4 ML SYR SQ SCH (07:48)
[2022-01-01] MEDS: DOCUSATE SODIUM/SENNA 50/8.6MG TAB PO SCH (20:19)
[2022-01-01] MEDS: SENNA 8.6 MG TAB PO SCH (20:20)
--- NOTE | 2022-01-01 22:41 | Hospitalist Progress Note ---
Date of Service January 01, 2022 Assessment & Plan (1) Closed right hip fracture: (2) HTN (hypertension): (3) Dementia: (4) Hyperparathyroidism: (5) DVT prophylaxis: Plan: This is a 81-year-old female who has significant past medical history of palsy with residual left-sided facial droop, dementia, HTN, osteoporosis, hyperparathyroidism, prediabetes who presents to ED after sustaining a fall prior to arrival. Closed right femoral neck fracture Possible Osteoporotic right femoral neck fracture in the setting of ground level fall Hip x-ray showed acute right femoral neck fracture S/P day #5 right hip hemiarthroplasty performed by Dr Frausto No postop complication Continue pain control PT/OT eval recommended placement Continue incentive spirometry WBAT with assistance of a walker as per ortho Posterior hip precautions at all times. Keep abduction pillow between knees with in bed. Raghav stockings, ASA BID for DVT prophylaxis. We will fall precaution Follow-up with [facility] orthopedic with either Judson BOWERS or Dr. Lisbet Vanegas from orthopedic standpoint to discharge HTN BP stable Continue amlodipine with parameters Osteoporosis Treated with Prolia, but has not had in the past year. Vit D level pending Hyperparathyroidism Previously followed endocrinology Stable, follows PCP. No hypercalcemia noted. 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 Stable Dementia Monitor for delirium Reorient frequently Daughter at bedside Jo-Ann Lee - [phone] DVT ppx: On Lovenox Ortho recommended aspirin twice daily on discharge CODE status Full code Disposition waiting for placement Admission and Anticipated Discharge Date Admission Date: December 25, 2021 Subjective Patient was seen and examined for postop follow-up Sitting in chair with no acute distress Denies any chest pain palpitation dizziness and shortness of breath Review of Systems Review of Systems: All systems reviewed & are unremarkable except as noted in Subjective Physical Exam Physical Exam: General- No acute distress Head- atraumatic Eyes- PERRL, EOMI, ENT- oropharynx clear Neck- supple, no JVD Lungs- clear to auscultation Heart- regular rhythm; no murmur Abdomen- normal bowel sounds, soft, nontender Extremities- no calf tenderness Neuro- alert, oriented x 3; PERRL, EOMI; no facial palsy; no dysarthria Skin- warm & dry Results & Data Results & Data ([facility]) Vital Signs (Past 12 Hours) Vital Signs Temp Pulse Resp BP Pulse Ox 01/01/22 15:24 36.8 C 81 16 114/67 93 (1) Dementia Dementia behavioral disturbance: without behavioral disturbance Dementia type: unspecified type Qualified Code(s): F03.90 - Unspecified dementia without behavioral disturbance (2) Closed right hip fracture Encounter type: initial encounter Qualified Code(s): S72.001A - Fracture of unspecified part of neck of right femur, initial encounter for closed fracture
[2022-01-02] MEDS: ACETAMINOPHEN 500 MG TAB PO SCH (05:33)
[2022-01-02] MEDS: MAGNESIUM HYDROXIDE SUSP 30 ML UDC PO PRN (05:34)
[2022-01-02] MEDS: CITALOPRAM 20 MG TAB PO SCH (07:57)
[2022-01-02] MEDS: amLODIPine BESYLATE 5 MG TAB PO SCH (07:58)
[2022-01-02] MEDS: CHOLECALCIFEROL 1,000 UNITS 25 MCG TAB PO SCH (07:58)
[2022-01-02] MEDS: LORATADINE 10 MG TAB PO SCH (07:58)
[2022-01-02] MEDS: MULTIVITAMIN TAB PO SCH (07:59)
[2022-01-02] MEDS: ENOXAPARIN INJ 40 MG/0.4 ML SYR SQ SCH (07:59)
[2022-01-02] MEDS: DOCUSATE SODIUM 100 MG CAP PO SCH (07:59)
--- NOTE | 2022-01-02 10:55 | Discharge Summary ---
Date of Service January 02, 2022 Admission HPI Per Admitting Provider This is a 81-year-old female who has significant past medical history of palsy with residual left-sided facial droop, dementia, HTN, osteoporosis, hyperparathyroidism, prediabetes who presents to ED after sustaining a fall prior to arrival. She currently lives at [facility] with her . At baseline she ambulates without assist device. She was walking at her facility when she was trying to turn In ED, lost her footing and fell on her right side. She did not lose consciousness. She had immediate right hip pain. EMS was summoned. Currently she is lying in bed and complains of right hip pain . Right hip x-ray revealed acute right femoral neck fracture. She denies any fever, chills, sweats, lightheadedness, syncope, chest pain, shortness of breath, cough, nausea, vomiting, abdominal pain, change in bowel or urinary habits. She does admit to having dizziness which is worse with movement. She does occasionally feel like she could, "passed out." She denies having the sensations today. In ED she did receive 2 mg of IV morphine. This did cause her to be drowsy and slightly desaturate requiring 2 L of oxygen. Her chest x- ray was otherwise clear. Again at baseline she ambulates without assist device. She is able to ambulate up 1 flight of stairs without any chest pain or shortness of breath. She otherwise has good functional status. EKG revealed normal sinus rhythm at [address] or T wave changes. Her EMR outpatient epic was reviewed. She does have prior history of hyperparathyroidism previously followed by Endo. She also sees rheumatology secondary to osteoporosis. Per daughter she has not had her Prolia injection in 1 year. Principal Diagnosis Closed right femoral neck fracture HTN Osteoporosis Hyperparathyroidism Spencer's palsy Dementia Discharge Exam General- No acute distress Head- atraumatic Eyes- PERRL, EOMI, ENT- oropharynx clear Neck- supple, no JVD Lungs- clear to auscultation Heart- regular rhythm; no murmur Abdomen- normal bowel sounds, soft, nontender Extremities- no calf tenderness Neuro- alert, oriented x 3; PERRL, EOMI; no facial palsy; no dysarthria Skin- warm & dry Discharge Data Allergies Allergy/AdvReac Type Severity Reaction Status Date / Time ezetimibe [From Zetia] Allergy Unknown ON Verified 12/25/21 16:24 [facility] Sulfa (Sulfonamide Allergy Unknown ON Verified 12/25/21 16:24 Antibiotics) [facility] sulfamethoxazole Allergy Unknown ON Verified 12/25/21 16:24 [From Bactrim] [facility] tramadol Allergy Unknown ON Verified 12/25/21 16:24 [facility] trimethoprim [From Bactrim] Allergy Unknown ON Verified 12/25/21 16:24 [facility] Consultations 12/25/21 16:30 ED Decision to Admit Stat 12/25/21 16:56 Consult Anesthesiology Routine Consult Orthopedic Surgery Routine Procedures Performed Operation Date: 12/26/21 08:30 Actual Procedures p Right Hip Hemiarthroplasty Cemented(Right) - Stephen Frausto MD Ordered Studies XR pelvis 1-2V routine CLINICAL HISTORY: Postop right hip prosthesis. COMPARISON STUDY: Right hip 12/25/2021. FINDINGS: Status post a right hip hemiarthroplasty. The hardware is intact. No fracture or dislocation. IMPRESSION: Status post right hip hemiarthroplasty. No evidence for hardware complication. ACT 112: Negative or not required by law. Electronically signed by: Young Monge M.D. 12/26/2021 6:12 PM Dictated:12/26/21 181 Transcribed: 12/26/21 181 XR hip RT min 2V CLINICAL HISTORY: fall, hip pain TECHNIQUE: 2 views of the right hip were obtained. Comparison: None available at the time of this dictation. FINDINGS: There is an acute femoral neck fracture, likely subcapital or transcervical. The alignment is anatomic. Joint spaces are well-preserved. Soft tissue swelling is seen about the knee. IMPRESSION: Acute right femoral neck fracture. ACT 112: Negative or not required by law. Electronically signed by: Hans Benitez M.D. 12/25/2021 4:24 PM Dictated:12/25/21 1621 Transcribed: 12/25/21 162 SINGLE VIEW CHEST CLINICAL HISTORY: Preoperative examination. Hip fracture FINDINGS: An AP, portable, supine chest radiograph is obtained. No prior studies are available for comparison at the time of dictation. The cardiomediastinal silhouette is unremarkable noting atherosclerotic calcification of the thoracic aorta. There is elevation of the right hemidiaphragm with right basilar consolidation. There is also mild scarring/atelectasis at the left lung base. Nonspecific interstitial thickening is likely chronic. No airspace consolidation, large pleural effusion, or pneumothorax is seen. The skeletal structures are osteopenic. The bony thorax is grossly intact. Surgical clips project over the left lower chest. Cholecystectomy clips are noted in the right upper quadrant. IMPRESSION: No acute cardiopulmonary abnormality. ACT 112: Negative or not required by law. Electronically signed by: Abdoulaye Brumfield M.D. 12/25/2021 4:22 PM Dictated:12/25/21 162 Transcribed: 12/25/21 162 Hospital Course (1) Closed right hip fracture: (2) HTN (hypertension): (3) Dementia: (4) Hyperparathyroidism: (5) DVT prophylaxis: This is a 81-year-old female who has significant past medical history of palsy with residual left-sided facial droop, dementia, HTN, osteoporosis, hyperparathyroidism, prediabetes who presents to ED after sustaining a fall prior to arrival. Closed right femoral neck fracture Possible Osteoporotic right femoral neck fracture in the setting of ground level fall Hip x-ray showed acute right femoral neck fracture S/P day #6 right hip hemiarthroplasty performed by Dr Frausto No postop complication Continue pain control PT/OT eval recommended placement Continue incentive spirometry WBAT with assistance of a walker as per ortho Posterior hip precautions at all times. Keep abduction pillow between knees with in bed. Raghav stockings, ASA BID for DVT prophylaxis. We will fall precaution Follow-up with [facility] orthopedic with either Judson BOWERS or Dr. Lisbet Vanegas from orthopedic standpoint to discharge HTN BP stable Continue amlodipine with parameters Osteoporosis Treated with Prolia, but has not had in the past year. Vit D level pending Hyperparathyroidism Previously followed endocrinology Stable, follows PCP. No hypercalcemia noted. 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 Stable Dementia Monitor for delirium Reorient frequently Daughter at bedside Jo-Ann Lee - [phone] DVT ppx: On Lovenox Ortho recommended aspirin twice daily on discharge CODE status Full code Disposition waiting for placement Total Time Total Time Spent Total Time Spent (In Minutes): 35 minutes Discharge Plan Discharge Items Patient Disposition: Transfer [facility] Fac Reason For Visit: R FEMORAL NECK FRACTURE Discharge Diagnosis: (1) Closed right hip fracture: (2) HTN (hypertension): (3) Dementia: (4) Hyperparathyroidism: Activity: Resume your previous activity Non-emergency contact: Primary Care Provider and Surgeon Call non-emergency contact if: you have any medication questions and your temperature is above 101 Follow-up/Referrals: Siobhan Jorgensen MD [Primary Care Provider] - Diet: Heart Healthy Addtl Attending Provider Instructions: Follow up with your primary care provider once discharge from [facility] Follow up with [facility] orthopedic with either Judson BOWERS or Dr. Frausto (contact the clinic at [phone] with any questions) Continue physical and occupational therapy Continue weight bearing as tolerated with assistance of a walker Continue Posterior hip precautions at all times. Keep abduction pillow between knees with in bed. Keep silverlon dressing in place until post op follow up appointment. Continue Raghav stockings Fall precaution Short course Aspirin 81mg twice a day for DVT prophylaxis Pending Studies at Discharge: No Stand-Alone Forms: My [facility] Skilled Items Patient informed of condition?: Yes DNR: No Discharge Level of Care: Skilled Communicable Disease: No Discharge Prognosis: Stable Lines: None Urinary Catheter: No Medications and DC Order Prescriptions: New acetaminophen [Tylenol Extra Strength] 500 mg Tablet 1,000 mg PO Q8 Qty: 30 RF: 0 aspirin 81 mg capsule 81 mg PO BID Qty: 30 RF: 0 Continued citalopram 10 mg tablet 10 mg PO QAM RF: 0 amlodipine 5 mg tablet 5 mg PO QAM RF: 0 loratadine [Claritin] 10 mg Tablet 10 mg PO QAM RF: 0 cholecalciferol (vitamin D3) [Vitamin D3] 25 mcg (1,000 unit) Capsule 25 mcg PO QAM RF: 0 Discharge Orders: Discharge Order (Routine); Ordered 01/02/22 Ordered By: Kameron Brody Admission Data Admit Date/Time: 12/25/21 16:56 Attending Provider: Kameron Brody Admit Provider: Angela Watson Primary Care Provider: Siobhan Jorgensen Other Providers: [facility] ; Cinthia Petersen at [place] ; Angela Watson ; Young Forde ; Stephen Frausto ; Ari Patrick Other Interventions: Discharge Summary Assessment (RN) Last Done: 01/02/22 08:48
== END 2022-01-02 11:35 | DRG 522 ==
LOC: ED 14:26 → SUATTDRO 16:56 → 3W 16:56

== ENCOUNTER 2022-02-02 14:39 | Inpatient (IN) ==
[2022-02-02] MEDS ORDERED: SODIUM CHLORIDE 0.9% 500 ML IV STA (14:53)
[2022-02-02] MEDS ORDERED: ONDANSETRON INJ 2 MG/ML 2 ML VIAL IV STA (14:53)
--- NOTE | 2022-02-02 14:59 | Emergency Department Note ---
Impression & Plan Closed intertrochanteric fracture of left hip, Anemia, Acute hyponatremia ED Provider Note NAME: JEFFREY WHITT AGE: 81 SEX: F : 1940 ARRIVES VIA: Ambulance INFORMANT: Patient, ED PROVIDER(S): Ernst Norton DO CHIEF COMPLAINT: Left hip pain HPI: The patient is an 81-year-old female who presented to the emergency dep artment from her personal [facility] after a fall. The patient had a fall onto her left side. She states she had no loss of consciousness. She denies having any neck or head pain. She denies having any chest or back pain. She was unable to stand because of the degree of pain in her left hip. She does have a history of right hip injury in the past. She denies having any nausea or vomiting. She arrived to the emergency department via ambulance. She was noted to have a shortened and rotated left lower extremity. She states her pain is moderate to severe and worsens with any movement of her left leg. She denies having any numbness in her leg. ROS: See above HPI for pertinent positives & negatives. A total of 10 systems reviewed and were otherwise negative. PAST MEDICAL HISTORY: See Below PAST SURGICAL HISTORY: See Below FAMILY HISTORY: See Below SOCIAL HISTORY: See Below HOME MEDICATIONS: See Below ALLERGIES: See Below VITALS: See Below PHYSICAL EXAMINATION: GENERAL: The patient is awake and alert. She is very anxious appearing and appears to be in significant pain. EYES: The conjunctivae are clear. The pupils are round and reactive. EARS, NOSE, MOUTH AND THROAT: The nose is without any evidence of any deformity. NECK: The neck is nontender and supple. RESPIRATORY: Normal respiratory effort is noted there is no evidence of wheezing rhonchi or rales CARDIOVASCULAR: Regular rate and rhythm noted there no murmurs rubs or gallops normal S1 normal S2. GASTROINTESTINAL: The abdomen is soft. Abdomen is nontender. MUSCULOSKELETAL/EXTREMITIES: The left lower extremity is significantly shortened. Pulses are symmetric in both feet. SKIN: Pedal edema was noted bilaterally. NEUROLOGIC: Patient is awake alert and oriented x3 MEDICAL DECISION MAKING: Patient is an 81-year-old female who presented to the emergency department for an evaluation of left hip pain. The patient suffered a ground-level fall. She had physical exam suggestive of hip fracture which was confirmed on radiographic studies. The patient was treated with IV pain medication in the emergency department. She was reevaluated multiple times. I [facility] They have agreed to evaluate the patient in the emergency department for further management and disposition. The patient was feeling better on subsequent reevaluation. Triage Nursing notes reviewed. Prior medical records reviewed Vital Signs: reviewed and remarkable for elevated blood pressure. Differential diagnosis: Fracture, subluxation, dislocation, contusion, ligamentous injury, neurovascular, compartment syndrome, rhabdomyolysis, as well as other pathologies. ER treatment provided: See below Diagnostics interpreted by me: ECG: EKG was obtained in the emergency department. My interpretation is normal sinus rhythm at 87 bpm. There is no ectopy. Nonspecific ST segment abnorm alities were noted. T wave abnormalities were noted in the inferior leads. This was compared to a tracing from December 25, 2021. No changes were noted. Cardiac Monitoring: An order was placed for continuous cardiac monitoring. The monitor shows a rate of 88 bpm with sinus rhythm. Laboratory studies: As stated above and show below. Imaging studies: See below Consultation(s): I discussed this case with Cata who is on-call for the [facility] hospitalist group. Past Med/Surg History Medical History Spencer's palsy Closed right hip fracture Dementia Fall History of breast cancer Lumbar spinal stenosis Osteoporosis Pre-diabetes Surgical History History of partial mastectomy hx of dcis Family History Mother Alzheimer disease Father Heart disease Social History Smoking Status: Never smoker Hx Alcohol Use: No Hx Substance Use: No Preferred Language: Hebrew Communication Ability: Effective Directory Compiler Required: No Beliefs That Will Affect Care: None marital status: Current Living Situation: Spouse and Personal Care Facility Feels Safe at Home: Yes Assistive Devices: Walker Allergies Allergies Allergy/AdvReac Type Severity Reaction Status Date / Time ezetimibe [From Zetia] Allergy Unknown ON Verified 02/02/22 15:41 [facility] Sulfa (Sulfonamide Allergy Unknown ON Verified 02/02/22 15:41 Antibiotics) [facility] sulfamethoxazole Allergy Unknown ON Verified 02/02/22 15:41 [From Bactrim] [facility] tramadol Allergy Unknown ON Verified 02/02/22 15:41 [facility] MED LIST trimethoprim [From Bactrim] Allergy Unknown ON Verified 02/02/22 15:41 [facility] MED LIST Home Meds Home Medications Medication Instructions Recorded Confirmed amlodipine 5 mg tablet 5 mg PO QAM 12/25/21 02/02/22 cholecalciferol (vitamin D3) 25 25 mcg PO QAM 12/25/21 02/02/22 mcg (1,000 unit) capsule (Vitamin D3) citalopram 10 mg tablet 10 mg PO QAM 12/25/21 02/02/22 loratadine 10 mg tablet (Claritin) 10 mg PO QAM 12/25/21 02/02/22 docusate sodium 100 mg capsule 100 mg PO BID 01/31/22 02/02/22 ciprofloxacin HCl 500 mg tablet 500 mg PO BID 02/02/22 02/02/22 (Cipro) phenazopyridine 200 mg tablet 200 mg PO BID PRN 02/02/22 02/02/22 Previous Rx's Medication Instructions Recorded acetaminophen 500 mg tablet 1,000 mg PO Q8 #30 tab 01/02/22 (Tylenol Extra Strength) aspirin 81 mg capsule 81 mg PO BID #30 cap 01/02/22 oxybutynin chloride 5 mg tablet 2.5 mg PO TID PRN #14 tab 01/31/22 Results & Data (ED) Vital Signs Vital Signs - 24 hr 02/02/22 14:29 02/02/22 15:00 Temperature 36.9 C 36.9 C Temperature Source Oral Oral Pulse Rate 90 88 Pulse Rate [Apical] 97 H Pulse Rhythm Regular Pulse Rhythm [Apical] Regular Respiratory Rate 24 18 Respiratory Depth Normal Blood Pressure 152/76 H Blood Pressure [Left Arm] 152/76 H Blood Pressure Mean 101 Blood Pressure Mean [Left Arm] 101 Pulse Oximetry 96 96 Oxygen Delivery Method Room Air Nasal Cannula Sepsis Recent Fever Within 48 Hours No Sepsis New/Unexplained Change in Mental Status No Sepsis Action Taken by Nursing No Action Required Home Medications Current Medication List: was personally reviewed by me Laboratory Data Attestation: I reviewed the patient's lab results. Result diagrams: 02/02/22 15:10 02/02/22 15:10 Lab Results 02/02/22 02/02/22 02/02/22 Range/Units 15:02 15:10 15:10 WBC 11.95 H (4.8-10.8) K/uL RBC 3.63 L (4.2-5.4) M/uL Hgb 10.0 L (12.0-16.0) g/dL Hct 31.4 L (37-47) % MCV 86.5 (80-100) fL MCH 27.5 (25-34) pg MCHC 31.8 L (32-36) g/dL RDW Std Deviation 44.0 (36.4-46.3) fL RDW Coeff of Tyesha 13.7 (11.5-14.5) % Plt Count 408 H (130-400) K/uL MPV 8.8 (7.4-10.4) fL Immature Gran % (Auto) 0.3 % Neut % (Auto) 77.3 % Lymph % (Auto) 9.9 % Parmer % (Auto) 11.1 % Eos % (Auto) 1.2 % Baso % (Auto) 0.2 % Neut # (Auto) 9.24 H (1.4-6.5) K/uL Lymph # (Auto) 1.18 L (1.2-3.4) K/uL Parmer # (Auto) 1.33 H (0.11-0.59) K/uL Eos # (Auto) 0.14 (0-0.5) K/uL Baso # (Auto) 0.02 (0-0.2) K/uL Immature Gran # (Auto) 0.04 H (0.00-0.02) K/uL PT (9.0-12.0) Seconds INR (0.9-1.1) APTT (21.0-31.0) Seconds PTT Ratio Sodium (136-145) mmol/L Potassium (3.5-5.1) mmol/L Chloride (98-107) mmol/L Carbon Dioxide (21-32) mmol/L Anion Gap (3-11) BUN (6-23) mg/dl Creatinine (0.6-1.2) mg/dl Est Cr Clr Drug Dosing ml/min Est GFR ( Amer) ml/min Est GFR (Non-Af Amer) ml/min BUN/Creatinine Ratio (10-20) Glucose (70-99(Fasting)) mg/dl Calcium (8.5-10.1) mg/dl Total Bilirubin (0.2-1.0) mg/dl AST (13-39) U/L ALT (7-52) U/L Alkaline Phosphatase (34-104) U/L Troponin I High Sens 6.6 (0-14) pg/ml Total Protein (6.0-8.3) gm/dl Albumin (3.4-5.0) gm/dl Globulin (2.5-4.0) gm/dl Albumin/Globulin Ratio (0.9-2) Lipase (11-82) U/L SARS-CoV-2, RNA, NAAT NEGATIVE (NEGATIVE) 02/02/22 02/02/22 Range/Units 15:10 15:10 WBC (4.8-10.8) K/uL RBC (4.2-5.4) M/uL Hgb (12.0-16.0) g/dL Hct (37-47) % MCV (80-100) fL MCH (25-34) pg MCHC (32-36) g/dL RDW Std Deviation (36.4-46.3) fL RDW Coeff of Tyesha (11.5-14.5) % Plt Count (130-400) K/uL MPV (7.4-10.4) fL Immature Gran % (Auto) % Neut % (Auto) % Lymph % (Auto) % Parmer % (Auto) % Eos % (Auto) % Baso % (Auto) % Neut # (Auto) (1.4-6.5) K/uL Lymph # (Auto) (1.2-3.4) K/uL Parmer # (Auto) (0.11-0.59) K/uL Eos # (Auto) (0-0.5) K/uL Baso # (Auto) (0-0.2) K/uL Immature Gran # (Auto) (0.00-0.02) K/uL PT 10.9 (9.0-12.0) Seconds INR 1.0 (0.9-1.1) APTT 24.1 (21.0-31.0) Seconds PTT Ratio 0.9 Sodium 125 L (136-145) mmol/L Potassium 3.8 (3.5-5.1) mmol/L Chloride 92 L (98-107) mmol/L Carbon Dioxide 26 (21-32) mmol/L Anion Gap 7 (3-11) BUN 16 (6-23) mg/dl Creatinine 0.56 L (0.6-1.2) mg/dl Est Cr Clr Drug Dosing 64.6 ml/min Est GFR ( Amer) 99.9 ml/min Est GFR (Non-Af Amer) 86.2 ml/min BUN/Creatinine Ratio 28.6 H (10-20) Glucose 120 H (70-99(Fasting)) mg/dl Calcium 9.4 (8.5-10.1) mg/dl Total Bilirubin 0.4 (0.2-1.0) mg/dl AST 16 (13-39) U/L ALT 7 (7-52) U/L Alkaline Phosphatase 92 (34-104) U/L Troponin I High Sens (0-14) pg/ml Total Protein 6.1 (6.0-8.3) gm/dl Albumin 3.4 (3.4-5.0) gm/dl Globulin 2.7 (2.5-4.0) gm/dl Albumin/Globulin Ratio 1.3 (0.9-2) Lipase 8 L (11-82) U/L SARS-CoV-2, RNA, NAAT (NEGATIVE) Administered Medications Fentanyl Citrate (Fentanyl Citrate 100 Mcg/2 Ml Vial) 50 mcg IV Q15M PRN PRN Reason: Pain Stop: 02/16/22 14:52 Last Admin: 02/02/22 16:01 Dose: 50 mcg Documented by: [id number] Discontinued Medications Sodium Chloride (Nss) 500 mls @ 999 mls/hr IV .Q31M STA Stop: 02/02/22 15:23 Last Admin: 02/02/22 16:01 Dose: 999 mls/hr Documented by: [id number] Ondansetron HCl (Ondansetron Inj 2 Mg/Ml 2 Ml Vial) 4 mg IV NOW STA Stop: 02/02/22 14:54 Last Admin: 02/02/22 16:01 Dose: 4 mg Documented by: [id number] Imaging Data Radiologist's Impression: Chest X-Ray 02/02/22 14:53 XR chest 1V portable CLINICAL HISTORY: Chest Pain. COMPARISON STUDY: 12/25/2021 TECHNIQUE: 1 view of the chest FINDINGS: Single frontal view of the chest demonstrates the cardiomediastinal silhouette to be within normal limits. There is a decreased inspiratory effort with elevation of the hemidiaphragms, right greater than left and crowding of the bronchovascular markings at the lung bases and centrally. The lungs are clear of alveolar opacities. There is evidence for hiatal hernia in retrocardiac space. There is no evidence for pleural effusion. There is no evidence for vascular congestion. There is no acute osseous pathology. IMPRESSION: 1. . There is a decreased inspiratory effort with otherwise no acute chest disease. 2. Hiatal hernia. ACT 112: Negative or not required by law. Electronically signed by: Fazal Wasserman M.D. 02/02/2022 3:25 PM Hip/Pelvis X-Ray 02/02/22 14:53 SINGLE VIEW PELVIS; 2 VIEWS LEFT HIP CLINICAL HISTORY: Fall with left hip injury. FINDINGS: An AP supine view of the pelvis with AP and crosstable lateral views of the left hip are compared to study dated 01/30/2022. The skeletal structures are osteopenic. There is a comminuted intertrochanteric fracture of the left proximal femur with medial displacement of the femoral shaft and distracted fragments. Overlying soft tissue edema is noted. No additional acute fracture is seen involving the right hip or the bony pelvis. A subacute avulsion fracture of the greater trochanter of the right proximal femur is unchanged. A unipolar right hip arthroplasty is in near-anatomic alignment with no periprosthetic lucency identified. Moderate degenerative joint space narrowing is seen in the left hip. There is degenerative sclerosis of the sacroiliac joints. Lumbosacral spondylosis is partially imaged. IMPRESSION: 1. Acute intertrochanteric fracture of the left proximal femur as above. 2. No additional acute fracture is identified. 3. A subacute avulsion fracture of the greater trochanter of the right femur is unchanged. Electronically signed by: Abdoulaye Brumfield M.D. 02/02/2022 3:24 PM Discharge Plan Visit Data Chief Complaint: Hip Pain ED Provider: Ernst Norton Discharge Problem: Closed intertrochanteric fracture of left hip, Anemia, Acute hyponatremia Patient Disposition: Being Evaluated by Hospitalist Forms Stand Alone Forms: [facility] Prescriptions Prescriptions: No Action citalopram 10 mg tablet 10 mg PO QAM RF: 0 amlodipine 5 mg tablet 5 mg PO QAM RF: 0 loratadine [Claritin] 10 mg Tablet 10 mg PO QAM RF: 0 cholecalciferol (vitamin D3) [Vitamin D3] 25 mcg (1,000 unit) Capsule 25 mcg PO QAM RF: 0 acetaminophen [Tylenol Extra Strength] 500 mg Tablet 1,000 mg PO Q8 Qty: 30 RF: 0 aspirin 81 mg capsule 81 mg PO BID Qty: 30 RF: 0 docusate sodium 100 mg Capsule 100 mg PO BID RF: 0 oxybutynin chloride 5 mg tablet 2.5 mg PO TID PRN (Reason: bladder spasms) Qty: 14 RF: 0 phenazopyridine 200 mg Tablet 200 mg PO BID PRN (Reason: Pain) RF: 0 ciprofloxacin HCl [Cipro] 500 mg Tablet 500 mg PO BID RF: 0 Referrals Referrals: Siobhan Jorgensen MD [Primary Care Provider] -
--- NOTE | 2022-02-02 15:26 | XRay Report ---
SINGLE VIEW PELVIS; 2 VIEWS LEFT HIP CLINICAL HISTORY: Fall with left hip injury. FINDINGS: An AP supine view of the pelvis with AP and crosstable lateral views of the left hip are co mpared to study dated 01/30/2022. The skeletal structures are osteopenic. There is a comminuted intert rochanteric fracture of the left proximal femur with medial displacement of the femoral shaft and dis tracted fragments. Overlying soft tissue edema is noted. No additional acute fracture is seen involvi ng the right hip or the bony pelvis. A subacute avulsion fracture of the greater trochanter of the ri ght proximal femur is unchanged. A unipolar right hip arthroplasty is in near-anatomic alignment with no periprosthetic lucency identified. Moderate degenerative joint space narrowing is seen in the lef t hip. There is degenerative sclerosis of the sacroiliac joints. Lumbosacral spondylosis is partially imaged. IMPRESSION: 1. Acute intertrochanteric fracture of the left proximal femur as above. 2. No additional acute fracture is identified. 3. A subacute avulsion fracture of the greater trochanter of the right femur is unchanged. Electronically signed by: Abdoulaye Brumfield M.D. 02/02/2022 3:24 PM
--- NOTE | 2022-02-02 15:26 | XRay Report ---
XR chest 1V portable CLINICAL HISTORY: Chest Pain. COMPARISON STUDY: 12/25/2021 TECHNIQUE: 1 view of the chest FINDINGS: Single frontal view of the chest demonstrates the cardiomediastinal silhouette to be within normal li mits. There is a decreased inspiratory effort with elevation of the hemidiaphragms, right greater cordell n left and crowding of the bronchovascular markings at the lung bases and centrally. The lungs are cl ear of alveolar opacities. There is evidence for hiatal hernia in retrocardiac space. There is no dru dence for pleural effusion. There is no evidence for vascular congestion. There is no acute osseous p athology. IMPRESSION: 1. . There is a decreased inspiratory effort with otherwise no acute chest disease. 2. Hiatal hernia. ACT 112: Negative or not required by law. Electronically signed by: Fazal Wasserman M.D. 02/02/2022 3:25 PM
[2022-02-02 15:34] LABS: Partial Thromboplastin Ratio 0.9; Partial Thromboplastin Time 24.1 Seconds (21.0-31.0); Prothrombin Time 10.9 Seconds (9.0-12.0)
[2022-02-02 15:52] LABS: Basophils # (auto) 0.02 K/uL (0-0.2); Basophils % (auto) 0.2 %; Eosinophils # (auto) 0.14 K/uL (0-0.5); Eosinophils % (auto) 1.2 %; Hematocrit (blood only) 31.4 % (37-47); Immature Granulocytes # (auto) 0.04 K/uL (0.00-0.02); Immature Granulocytes % (auto) 0.3 %; Lymphocytes # (auto) 1.18 K/uL (1.2-3.4); Lymphocytes % (auto) 9.9 %; Mean Corpuscular Hemoglobin 27.5 pg (25-34); Mean Corpuscular Hgb Conc 31.8 g/dL (32-36); Mean Corpuscular Volume 86.5 fL (80-100); Mean Platelet Volume 8.8 fL (7.4-10.4); Monocytes # (auto) 1.33 K/uL (0.11-0.59); Monocytes % (auto) 11.1 %; Neutrophils # (auto) 9.24 K/uL (1.4-6.5); Neutrophils % (auto) 77.3 %; Platelet Count 408 K/uL (130-400); RDW Coefficient of Variation 13.7 % (11.5-14.5); Red Blood Count 3.63 M/uL (4.2-5.4); White Blood Count 11.95 K/uL (4.8-10.8)
[2022-02-02 15:56] LABS: Potassium 3.8 mmol/L (3.5-5.1)
[2022-02-02 15:58] LABS: Albumin Globulin Ratio 1.3 (0.9-2); Albumin Level 3.4 gm/dl (3.4-5.0); BUN Creatinine Ratio 28.6 (10-20); Bilirubin,Total 0.4 mg/dl (0.2-1.0); Calcium 9.4 mg/dl (8.5-10.1); Creatinine Clr Calc Pharmacy 64.6 ml/min; Est GFR (African American) 99.9 ml/min; Est GFR (Non-African American) 86.2 ml/min; Globulin 2.7 gm/dl (2.5-4.0); Total Protein 6.1 gm/dl (6.0-8.3)
[2022-02-02] MEDS: fentaNYL citrate 100 MCG/2 ML VIAL IV PRN ×2 (16:01→18:14)
--- NOTE | 2022-02-02 16:02 | Electrocardiogram Report ---
Test Reason : Blood Pressure : / mmHG Vent. Rate : 087 BPM Atrial Rate : 087 BPM P-R Int : 156 ms QRS Dur : 072 ms QT Int : 360 ms P-R-T Axes : 056 024 010 degrees QTc Int : 433 ms Normal sinus rhythm with sinus arrhythmia Nonspecific ST abnormality Abnormal ECG When compared with ECG of 25-DEC-2021 14:36, No significant change was found Confirmed by Ernst Leiva ([id number]) on 02/02/2022 4:02:12 PM Referred By: Confirmed By:Ernst Leiva
--- NOTE | 2022-02-02 16:13 | History & Physical Report ---
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 Hip x-ray: Acute intertrochanteric fracture of the left proximal femur NPO midnight Bedrest Scheduled Tylenol, morphine as needed pain Ortho consult. Patient and patient's daughter requested [facility]. Reached out to [facility]. Dr. Aguilar is away. [place] [facility] is on-call. Spoke to Dr Kc Malhotra catheter placed PT/OT to be considered post op Hyponatremia Na: 125 IVF Repeat BMP tonight Possible UTI possible recent UTI. Pt had complained of urgency. There was question of p ossible UTI versus constipation. Was started on Cipro on 02/01/2022 Denies any current urinary symptoms Continue Cipro 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 Dementia Monitor for delirium Reorient frequently Pt's daughter, Jo-Ann Lee [phone] if needed DVT Prophylaxis SCDs Full Code as per discussion with pt and pt's daughter Follows with Dr Jorgensen for routine care Pt was seen and care coordinated with Dr Helms. 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 Patient with history fall and right hip fracture in 12/2021 that was repaired by Dr. Aguilar. Patient currently residing in [facility]. History assistance obtained from patient's daughter as patient with history of dementia. Reports patient with history frequent falls and often gets up and does not use assistive devices. Reported today patient got up to try to walk and family members told her to wait for assistance from staff however patient continued to walk and reported lost balance and fell. Patient complaining of left hip pain, aggravated with any attempted movement of left leg, and unable to ambulate. Patient does not think had any loss of consciousness. Daughter reports staff was able to get to patient quickly and no reported LOC. Patient denies chest pain, shortness of breath, dizziness. Denies fever/chills, diaphoresis, N/V/D/C, BARRETO, vision changes, neck pain, CP, SOB, orthopnea, palpitations, cough, sore throat, choking, otalgia, rhinorrhea, abdominal pain, paresthesias, weakness, extremity weakness, extremity edema, rashes, urinary symptoms. In ER patient found to have intertrochanteric fracture left proximal femur. Allergies Allergy/AdvReac Type Severity Reaction Status Date / Time ezetimibe [From Zetia] Allergy Unknown ON Verified 02/02/22 15:41 [facility] Sulfa (Sulfonamide Allergy Unknown ON Verified 02/02/22 15:41 Antibiotics) [facility] sulfamethoxazole Allergy Unknown ON Verified 02/02/22 15:41 [From Bactrim] [facility] tramadol Allergy Unknown ON Verified 02/02/22 15:41 [facility] trimethoprim [From Bactrim] Allergy Unknown ON Verified 02/02/22 15:41 [facility] Home Medications Medication Instructions Recorded Confirmed Type amlodipine 5 mg tablet 5 mg PO QAM 12/25/21 02/02/22 History cholecalciferol (vitamin D3) 25 25 mcg PO QAM 12/25/21 02/02/22 History mcg (1,000 unit) capsule (Vitamin D3) citalopram 10 mg tablet 10 mg PO QAM 12/25/21 02/02/22 History loratadine 10 mg tablet (Claritin) 10 mg PO QAM 12/25/21 02/02/22 History acetaminophen 500 mg tablet 1,000 mg PO Q8 #30 tab 01/02/22 02/02/22 Rx (Tylenol Extra Strength) aspirin 81 mg capsule 81 mg PO BID #30 cap 01/02/22 02/02/22 Rx docusate sodium 100 mg capsule 100 mg PO BID 01/31/22 02/02/22 History oxybutynin chloride 5 mg tablet 2.5 mg PO TID PRN #14 tab 01/31/22 02/02/22 Rx ciprofloxacin HCl 500 mg tablet 500 mg PO BID 02/02/22 02/02/22 History (Cipro) phenazopyridine 200 mg tablet 200 mg PO BID PRN 02/02/22 02/02/22 History Past Med/Surg History Medical History Spencer's palsy Closed right hip fracture Dementia Fall History of breast cancer Lumbar spinal stenosis Osteoporosis Pre-diabetes Surgical History History of partial mastectomy hx of dcis Family History Mother Alzheimer disease Father Heart disease Social History Smoking Status: Never smoker Hx Alcohol Use: No Hx Substance Use: No Preferred Language: Ivorian Communication Ability: Effective Hematology Specialist Required: No Beliefs That Will Affect Care: None marital status: Current Living Situation: Spouse and Personal Care Facility Feels Safe at Home: Yes Assistive Devices: Walker Review of Systems Review of Systems: All systems reviewed & are unremarkable except as noted in HPI & below Physical Exam Physical Exam: General: mild distress secondary to left hip pain, WDWN Head: normocephalic, atraumatic Eyes: PERRL, EOM's intact, conjunctiva non-injected, anicteric ENT: normal inspection external ears, nose, mucous membranes moist Neck: supple, trachea midline Lungs: clear, no respiratory distress, no wheezing/rhonchi/rales CV: RRR, no pretibial edema Abd: normal BS, soft, non-tender Ext: no cyanosis, no calf tenderness, LLE: Left foot externally rotated and shortened. Distal pulses intact, sensation to light touch intact. Able to wiggle toes, no other active or active range of motion attempted Neuro: Alert, oriented to person, month and year. Unsure of place. + Left facial droop is chronic, no focal deficits noted, normal affect Skin: warm, dry Results & Data Results & Data ([facility]) Vital Signs (Past 12 Hours) Vital Signs Temp Pulse Pulse Resp BP BP Pulse Ox 02/02/22 15:00 36.9 C 88 97 H 18 152/76 H 96 02/02/22 14:29 36.9 C 90 24 152/76 H 96 Laboratory Results Short CBC 02/02/22 Range/Units 15:10 WBC 11.95 H (4.8-10.8) K/uL Hgb 10.0 L (12.0-16.0) g/dL Hct 31.4 L (37-47) % Plt Count 408 H (130-400) K/uL BMP 02/02/22 15:10 Sodium 125 L Potassium 3.8 Chloride 92 L Carbon Dioxide 26 BUN 16 Creatinine 0.56 L Glucose 120 H Calcium 9.4 Liver Function 02/02/22 Range/Units 15:10 Total Bilirubin 0.4 (0.2-1.0) mg/dl AST 16 (13-39) U/L ALT 7 (7-52) U/L Alkaline Phosphatase 92 (34-104) U/L Albumin 3.4 (3.4-5.0) gm/dl Diagnostic Findings Chest X-Ray 02/02/22 14:53 XR chest 1V portable CLINICAL HISTORY: Chest Pain. COMPARISON STUDY: 12/25/2021 TECHNIQUE: 1 view of the chest FINDINGS: Single frontal view of the chest demonstrates the cardiomediastinal silhouette to be within normal limits. There is a decreased inspiratory effort with elevation of the hemidiaphragms, right greater than left and crowding of the bronchovascular markings at the lung bases and centrally. The lungs are clear of alveolar opacities. There is evidence for hiatal hernia in retrocardiac space. There is no evidence for pleural effusion. There is no evidence for vascular congestion. There is no acute osseous pathology. IMPRESSION: 1. . There is a decreased inspiratory effort with otherwise no acute chest disease. 2. Hiatal hernia. ACT 112: Negative or not required by law. Electronically signed by: Fazal Wasserman M.D. 02/02/2022 3:25 PM Hip/Pelvis X-Ray 02/02/22 14:53 SINGLE VIEW PELVIS; 2 VIEWS LEFT HIP CLINICAL HISTORY: Fall with left hip injury. FINDINGS: An AP supine view of the pelvis with AP and crosstable lateral views of the left hip are compared to study dated 01/30/2022. The skeletal structures are osteopenic. There is a comminuted intertrochanteric fracture of the left proximal femur with medial displacement of the femoral shaft and distracted fragments. Overlying soft tissue edema is noted. No additional acute fracture is seen involving the right hip or the bony pelvis. A subacute avulsion fracture of the greater trochanter of the right proximal femur is unchanged. A unipolar right hip arthroplasty is in near-anatomic alignment with no periprosthetic lucency identified. Moderate degenerative joint space narrowing is seen in the left hip. There is degenerative sclerosis of the sacroiliac joints. Lumbosacral spondylosis is partially imaged. IMPRESSION: 1. Acute intertrochanteric fracture of the left proximal femur as above. 2. No additional acute fracture is identified. 3. A subacute avulsion fracture of the greater trochanter of the right femur is unchanged. Electronically signed by: Abdoulaye Brumfield M.D. 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 Per pt and daughter pt got out of bed w/o realizing her recent hip surgery and fell to the ground. Denied any LOC or head trauma. PE: In distress due to pain, well developed HEENT: mild L sided facial droop with ptosis of the L eye lid Cards: normal S1/S2, no murmur Lungs: CTA, no wheezing or crackles Abd: soft, NT, ND MSK: unable to move the L leg, no edema Psych: normal affect, AAOx2 (pt and time) A/P: L hip fracture: -hip Xray: Acute intertrochanteric fracture of the left proximal femur -ortho consulted --- possible surgery tomorrow -NPO after MN -SCD for DVT ppx -prn pain management HypoNa+: -very likely due hypovolemia -no change in mental status (does have baseline demntia) -will get BMP in 6 hrs --- s/p IV bolus -since pt is going to be NPO will do NS 80 cc/hr Agree with A/p by Bhakti Dobbins PA-C (1) Closed intertrochanteric fracture of left hip Encounter type: initial encounter Fracture alignment: displaced Qualified Code(s): S72.142A - Displaced intertrochanteric fracture of left femur, initial encounter for closed fracture
--- NOTE | 2022-02-02 17:51 | Orthopedic Consultation ---
Date of Service February 02, 2022 Assessment & Plan (1) Closed intertrochanteric fracture of left hip: I described the diagnosis as well as treatment options with her and her daughter at bedside. I did recommend intramedullary nail fixation of her left hip. Her and her daughter understand the risk, benefits, and alternatives to procedure elected proceed. Questions were answered at bedside. Time was spent describing the procedure and post operative expectations. She will be n.p.o. past midnight tonight. We will plan on fixing her hip tomorrow morning. History of Present Illness Reason for Consultation: Left intertrochanteric hip fracture. Requesting Physician: . Analy is a pleasant 81-year-old female who lives at the [facility]. She had an unwitnessed fall earlier today. She was having significant left hip pain. She came to the emergency room and radiographs demonstrated a displaced left intertrochanteric hip fracture. She recently underwent a right hip hemiarthroplasty by Dr. Lisbet falcon about a month ago. She is done well with that. She was admitted to the medical service. Orthopedics was consulted to evaluate and treat. Allergies Allergy/AdvReac Type Severity Reaction Status Date / Time ezetimibe [From Zetia] Allergy Unknown ON Verified 02/02/22 15:41 [facility] Sulfa (Sulfonamide Allergy Unknown ON Verified 02/02/22 15:41 Antibiotics) [facility] sulfamethoxazole Allergy Unknown ON Verified 02/02/22 15:41 [From Bactrim] [facility] tramadol Allergy Unknown ON Verified 02/02/22 15:41 [facility] trimethoprim [From Bactrim] Allergy Unknown ON Verified 02/02/22 15:41 [facility] Home Medications Medication Instructions Recorded Confirmed Type amlodipine 5 mg tablet 5 mg PO QAM 12/25/21 02/02/22 History cholecalciferol (vitamin D3) 25 25 mcg PO QAM 12/25/21 02/02/22 History mcg (1,000 unit) capsule (Vitamin D3) citalopram 10 mg tablet 10 mg PO QAM 12/25/21 02/02/22 History loratadine 10 mg tablet (Claritin) 10 mg PO QAM 12/25/21 02/02/22 History acetaminophen 500 mg tablet 1,000 mg PO Q8 #30 tab 01/02/22 02/02/22 Rx (Tylenol Extra Strength) aspirin 81 mg capsule 81 mg PO BID #30 cap 01/02/22 02/02/22 Rx docusate sodium 100 mg capsule 100 mg PO BID 01/31/22 02/02/22 History oxybutynin chloride 5 mg tablet 2.5 mg PO TID PRN #14 tab 01/31/22 02/02/22 Rx ciprofloxacin HCl 500 mg tablet 500 mg PO BID 02/02/22 02/02/22 History (Cipro) phenazopyridine 200 mg tablet 200 mg PO BID PRN 02/02/22 02/02/22 History Past Med/Surg History Medical History Spencer's palsy Closed right hip fracture Dementia Fall History of breast cancer Lumbar spinal stenosis Osteoporosis Pre-diabetes Surgical History History of partial mastectomy hx of dcis Family History Mother Alzheimer disease Father Heart disease Social History Smoking Status: Never smoker Hx Alcohol Use: No Hx Substance Use: No Preferred Language: Ghanaian Communication Ability: Effective Supervisor Quality Control Required: No Beliefs That Will Affect Care: None marital status: Current Living Situation: Spouse and Personal Care Facility Feels Safe at Home: Yes Assistive Devices: Walker Review of Systems All systems reviewed & are unremarkable except as noted in HPI & below. Physical Exam On physical examination of the left hip, there is a deformity. Her left leg is shortened and externally rotated. She has significant pain with any range of motion of her hip. It is a closed injury.. Constitutional WD/WN, vitals as above Eyes PERRL, conjunctivae normal, anicteric sclerae ENMT external ear and nose normal, oropharynx normal Neck trachea midline, no thyromegaly Respiratory normal respiratory effort Cardiovascular RRR, no murmur, no edema Gastrointestinal (Abdomen) normal bowel sounds, soft, nontender, no hepatosplenomegaly Psychiatric A+Ox3, euthymic affect Results & Data Results & Data Laboratory Results . Diagnostic Findings X-rays of the left hip and pelvis do show a displaced left intertrochanteric hip fracture.. PG Care Time/CCT Total # of Minutes Spent Total Time Spent with Patient: Total time spent is greater than 50% in coordination of care (as documented) at patient's floor/unit and/or counseling patient: Coding Level of Care Code 20921 Inpt Consult Level 4 (57 - DECISION FOR SURGERY) Diagnoses Closed intertrochanteric fracture of left hip S72.142A Encounter type: initial encounter Fracture alignment: displaced (1) Closed intertrochanteric fracture of left hip Encounter type: initial encounter Fracture alignment: displaced Qualified Code(s): S72.142A - Displaced intertrochanteric fracture of left femur, initial encounter for closed fracture
[2022-02-02] MEDS ORDERED: NALOXONE HCL 0.4 MG/1 ML VIAL/CARP IV PRN (19:43)
[2022-02-02] MEDS ORDERED: MAGNESIUM HYDROXIDE SUSP 30 ML UDC PO PRN (19:43)
[2022-02-02] MEDS ORDERED: bisacodyL 10 MG SUPP PR PRN (19:43)
[2022-02-02] MEDS ORDERED: POLYETHYLENE (MIRALAX) 17 GM PACK PO PRN (19:43)
[2022-02-02] MEDS: ACETAMINOPHEN 500 MG TAB PO SCH (21:15)
[2022-02-02] MEDS: SODIUM CHLORIDE 0.9% 1000ML 1,000 ML IV SCH (21:15)
[2022-02-02] MEDS: MoRPHine SULFATE 2 MG/ML CARP IV PRN (21:15)
[2022-02-02] MEDS: DOCUSATE SODIUM/SENNA 50/8.6MG TAB PO SCH (21:16)
[2022-02-02] MEDS: CIPROFLOXACIN 500 MG TAB PO SCH (21:16)
[2022-02-02] MEDS: ASPIRIN 81 MG ECTAB PO SCH (21:16)
[2022-02-03] MEDS: MoRPHine SULFATE 2 MG/ML CARP IV PRN ×4 (00:01→20:06)
[2022-02-03] MEDS ORDERED: MoRPHine SULFATE 4 MG/ML 1 ML CARP\\VIAL IV STA (02:14)
[2022-02-03] MEDS: ACETAMINOPHEN 500 MG TAB PO SCH ×3 (05:12→20:05)
[2022-02-03] MEDS ORDERED: ceFAZolin 2000MG 2,000 MG/15 ML SYR IV SCH (06:00)
--- NOTE | 2022-02-03 06:45 | Anesthesiology Consultation ---
Date of Service February 03, 2022 Assessment & Plan Chart Review Chart Review: Acceptable Risk for Surgery and Patient NOT seen in Pre Admission Testing Consults Requested none ASA ASA4 Proposed Anesthesia Anesthesia Type: General History Surgery Operation Date: 02/03/22 10:15 Proposed Procedures p Intramedullary Medullary Short Nail Trochanteric Fracture Left - Kevan Traylorcami cer, DO Height/Weight Height: 5 ft 1 in Weight: 61.2 kg Allergies Allergy/AdvReac Type Severity Reaction Status Date / Time ezetimibe [From Zetia] Allergy Unknown ON Verified 02/02/22 15:41 [facility] Sulfa (Sulfonamide Allergy Unknown ON Verified 02/02/22 15:41 Antibiotics) [facility] sulfamethoxazole Allergy Unknown ON Verified 02/02/22 15:41 [From Bactrim] [facility] tramadol Allergy Unknown ON Verified 02/02/22 15:41 [facility] trimethoprim [From Bactrim] Allergy Unknown ON Verified 02/02/22 15:41 [facility] Medications Home Medications Medication Instructions Recorded Confirmed Last Taken amlodipine 5 mg tablet 5 mg PO QAM 12/25/21 02/02/22 01/31/22 cholecalciferol (vitamin D3) 25 25 mcg PO QAM 12/25/21 02/02/22 01/31/22 mcg (1,000 unit) capsule (Vitamin D3) citalopram 10 mg tablet 10 mg PO QAM 12/25/21 02/02/22 01/31/22 loratadine 10 mg tablet (Claritin) 10 mg PO QAM 12/25/21 02/02/22 01/31/22 acetaminophen 500 mg tablet 1,000 mg PO Q8 #30 tab 01/02/22 02/02/22 01/31/22 08:00 (Tylenol Extra Strength) aspirin 81 mg capsule 81 mg PO BID #30 cap 01/02/22 02/02/22 01/31/22 08:00 docusate sodium 100 mg capsule 100 mg PO BID 01/31/22 02/02/22 01/31/22 08:00 oxybutynin chloride 5 mg tablet 2.5 mg PO TID PRN #14 tab 01/31/22 02/02/22 Unknown ciprofloxacin HCl 500 mg tablet 500 mg PO BID 02/02/22 02/02/22 Unknown (Cipro) phenazopyridine 200 mg tablet 200 mg PO BID PRN 02/02/22 02/02/22 Unknown Active Medications Generic Name Dose Route Start Last Admin Trade Name Hugo PRN Reason Stop Dose Admin Acetaminophen 1,000 mg 02/02/22 22:00 02/03/22 05:12 Acetaminophen 500 Mg Tab PO 03/04/22 21:59 Not Given Q8 SELIN Aspirin 81 mg 02/02/22 21:00 02/02/22 21:16 Aspirin 81 Mg Ectab PO 03/04/22 20:59 81 mg BID SELIN Administration Ciprofloxacin 500 mg 02/02/22 21:00 02/02/22 21:16 Ciprofloxacin 500 Mg Tab PO 02/07/22 20:59 500 mg BID SELIN Administration Sodium Chloride 1,000 mls @ 80 mls/hr 02/02/22 19:43 02/02/22 21:15 Nss 1000ml IV 02/03/22 20:42 80 mls/hr .[id number] SELIN Administration Morphine Sulfate 2 mg 02/02/22 19:43 02/03/22 05:47 Morphine Sulfate 2 Mg/Ml Carp IV 02/16/22 19:42 2 mg Q3H PRN Administration Pain Senna/Docusate Sodium 2 tab 02/02/22 21:00 02/02/22 21:16 Docusate Sodium/Senna 50/8.6mg Tab PO 03/04/22 20:59 2 tab HS SELIN Administration Past Medical History Medical History Spencer's palsy Closed right hip fracture Dementia Fall History of breast cancer Lumbar spinal stenosis Osteoporosis Pre-diabetes Exercise / Class Metabolic Activity III < 4 Walking/Shop/Light housework Past Family History Family History Mother Alzheimer disease Father Heart disease Past Surgical History Surgical History History of partial mastectomy hx of dcis Past Anesthesia History No Hx of Anesthesia Complications and No Family Hx of Anesthesia Complications History of PONV No Hx of PONV and No Hx of Motion Sickness Social History Smoking Status: Never smoker Hx Alcohol Use: Yes alcohol intake frequency: holidays/special occasions only Hx Substance Use: No substance use type: does not use Physical Exam Vital Signs Last Vital Signs Temp 36.6 C 02/03/22 03:38 Pulse 79 02/03/22 03:38 Resp 16 02/03/22 03:38 BP 129/65 02/03/22 03:38 Pulse Ox 96 02/03/22 03:38 Testing Laboratory Results 02/02/22 15:10 02/02/22 15:10 PT 10.9 Seconds (9.0-12.0) 02/02/22 15:10 INR 1.0 (0.9-1.1) 02/02/22 15:10 APTT 24.1 Seconds (21.0-31.0) 02/02/22 15:10 Blood Type A Negative 02/02/22 19:54 Antibody Screen NEGATIVE 02/02/22 19:54 Electrocardiogram Date: 02/02/22 Findings: + NSR @ (at 85 w/ sinus arrhythmia) and + NSST changes Chest X-Ray Date: 02/02/22 Findings: + NAD hiatal hernia
--- NOTE | 2022-02-03 07:28 | History & Physical Bridge Note ---
Date of Service February 03, 2022 History & Physical Bridge Note I have examined the patient, reviewed the History & Physical and in the interval since the performance of the History & Physical I have noted the following changes of clinical significance: no changes noted
--- NOTE | 2022-02-03 07:53 | Hospitalist Progress Note ---
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 Patient and patient's daughter requested [facility]. Reached out to [facility]. Dr. Aguilar is away. [place] [facility] is on-call. Spoke to Dr Kc Plan for surgical repair today (02/03) Malhotra catheter placed PT/OT to be considered post op Hyponatremia Na: 125 IVF Likely secondary to hypovolemia Sodium mildly improved at 127 today, after gentle IV fluids, continue IV normal saline Recheck sodium this evening Check urine sodium, urine osmolality if not improved consider nephrology consult Possible UTI possible recent UTI. Pt had complained of urgency. There was question of possible UTI versus constipation. Was started on Cipro on 02/01/2022 Denies any current urinary symptoms Continue Cipro 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 Dementia Monitor for delirium Reorient frequently Pt's daughter, Jo-Ann Lee [phone] if needed DVT Prophylaxis SCDs Full Code as per discussion with pt and pt's daughter Follows with Dr Jorgensen for routine care Admission and Anticipated Discharge Date Admission Date: February 02, 2022 Subjective Patient seen in follow-up of left hip fracture, hyponatremia Currently patient is lying in bed, in no acute distress, however does complain of left hip pain Denies fevers chills, chest pain, shortness of breath, headache, abdominal pain, nausea vomiting Plan for ORwith orthopedics later today Review of Systems Review of Systems: All systems reviewed & are unremarkable except as noted in Subjective Physical Exam Physical Exam: General: elderly thin F in NAD but w/left hip pain Head: normocephalic, atraumatic Eyes: PERRL, EOM's intact, conjunctiva non-injected, anicteric ENT: normal inspection external ears, nose, mucous membranes moist Neck: supple, trachea midline Lungs: clear, no respiratory distress, no wheezing/rhonchi/rales CV: RRR, no pretibial edema Abd: normal BS, soft, non-tender Ext: no cyanosis, no calf tenderness, LLE: Left foot externally rotated and shortened. Distal pulses intact, sensation to light touch intact. Able to wiggle toes, no other active or active range of motion attempted Neuro: Alert, oriented to person, month and year. Unsure of place. + Left facial droop is chronic, no focal deficits noted, normal affect Skin: warm, dry Results & Data Results & Data ([facility]) Vital Signs (Past 12 Hours) Vital Signs Temp Pulse Pulse Resp BP Pulse Ox 02/03/22 07:30 36.5 C 81 20 113/67 96 02/03/22 03:38 36.6 C 79 16 129/65 96 02/02/22 23:11 36.6 C 85 16 121/68 94 02/02/22 22:20 81 02/02/22 21:00 36.8 C 88 92 H 20 166/76 H 94 Laboratory Results 02/03/22 02/03/22 02/03/22 Range/Units 08:47 08:47 08:47 WBC 10.18 (4.8-10.8) K/uL RBC 3.00 L (4.2-5.4) M/uL Hgb 8.3 L (12.0-16.0) g/dL Hct 26.2 L (37-47) % MCV 87.3 (80-100) fL MCH 27.7 (25-34) pg MCHC 31.7 L (32-36) g/dL RDW Std Deviation 44.5 (36.4-46.3) fL RDW Coeff of Tyesha 13.8 (11.5-14.5) % Plt Count 339 (130-400) K/uL MPV 8.2 (7.4-10.4) fL Immature Gran % (Auto) % Neut % (Auto) % Lymph % (Auto) % [place] % (Auto) % Eos % (Auto) % Baso % (Auto) % Neut # (Auto) (1.4-6.5) K/uL Lymph # (Auto) (1.2-3.4) K/uL [place] # (Auto) (0.11-0.59) K/uL Eos # (Auto) (0-0.5) K/uL Baso # (Auto) (0-0.2) K/uL Immature Gran # (Auto) (0.00-0.02) K/uL PT (9.0-12.0) Seconds INR (0.9-1.1) APTT (21.0-31.0) Seconds PTT Ratio Sodium 127 L (136-145) mmol/L Potassium 3.9 (3.5-5.1) mmol/L Chloride 96 L (98-107) mmol/L Carbon Dioxide 26 (21-32) mmol/L Anion Gap 5 (3-11) BUN 13 (6-23) mg/dl Creatinine 0.55 L (0.6-1.2) mg/dl Est Cr Clr Drug Dosing 65.0 ml/min Est GFR ( Amer) 100.5 ml/min Est GFR (Non-Af Amer) 86.7 ml/min BUN/Creatinine Ratio 23.6 H (10-20) Glucose 106 H (70-99(Fasting)) mg/dl Calcium 8.8 (8.5-10.1) mg/dl Phosphorus 3.0 (2.5-4.9) mg/dl Magnesium 1.8 (1.7-2.4) mg/dl Total Bilirubin (0.2-1.0) mg/dl AST (13-39) U/L ALT (7-52) U/L Alkaline Phosphatase (34-104) U/L Troponin I High Sens (0-14) pg/ml Total Protein (6.0-8.3) gm/dl Albumin (3.4-5.0) gm/dl Globulin (2.5-4.0) gm/dl Albumin/Globulin Ratio (0.9-2) Lipase (11-82) U/L SARS-CoV-2, RNA, NAAT (NEGATIVE) Blood Type Antibody Screen 02/02/22 02/02/22 02/02/22 Range/Units 19:54 15:10 15:10 WBC (4.8-10.8) K/uL RBC (4.2-5.4) M/uL Hgb (12.0-16.0) g/dL Hct (37-47) % MCV (80-100) fL MCH (25-34) pg MCHC (32-36) g/dL RDW Std Deviation (36.4-46.3) fL RDW Coeff of Tyesha (11.5-14.5) % Plt Count (130-400) K/uL MPV (7.4-10.4) fL Immature Gran % (Auto) % Neut % (Auto) % Lymph % (Auto) % [place] % (Auto) % Eos % (Auto) % Baso % (Auto) % Neut # (Auto) (1.4-6.5) K/uL Lymph # (Auto) (1.2-3.4) K/uL [place] # (Auto) (0.11-0.59) K/uL Eos # (Auto) (0-0.5) K/uL Baso # (Auto) (0-0.2) K/uL Immature Gran # (Auto) (0.00-0.02) K/uL PT 10.9 (9.0-12.0) Seconds INR 1.0 (0.9-1.1) APTT 24.1 (21.0-31.0) Seconds PTT Ratio 0.9 Sodium 125 L (136-145) mmol/L Potassium 3.8 (3.5-5.1) mmol/L Chloride 92 L (98-107) mmol/L Carbon Dioxide 26 (21-32) mmol/L Anion Gap 7 (3-11) BUN 16 (6-23) mg/dl Creatinine 0.56 L (0.6-1.2) mg/dl Est Cr Clr Drug Dosing 64.6 ml/min Est GFR ( Amer) 99.9 ml/min Est GFR (Non-Af Amer) 86.2 ml/min BUN/Creatinine Ratio 28.6 H (10-20) Glucose 120 H (70-99(Fasting)) mg/dl Calcium 9.4 (8.5-10.1) mg/dl Phosphorus (2.5-4.9) mg/dl Magnesium (1.7-2.4) mg/dl Total Bilirubin 0.4 (0.2-1.0) mg/dl AST 16 (13-39) U/L ALT 7 (7-52) U/L Alkaline Phosphatase 92 (34-104) U/L Troponin I High Sens (0-14) pg/ml Total Protein 6.1 (6.0-8.3) gm/dl Albumin 3.4 (3.4-5.0) gm/dl Globulin 2.7 (2.5-4.0) gm/dl Albumin/Globulin Ratio 1.3 (0.9-2) Lipase 8 L (11-82) U/L SARS-CoV-2, RNA, NAAT (NEGATIVE) Blood Type A Negative Antibody Screen NEGATIVE 02/02/22 02/02/22 02/02/22 Range/Units 15:10 15:10 15:02 WBC 11.95 H (4.8-10.8) K/uL RBC 3.63 L (4.2-5.4) M/uL Hgb 10.0 L (12.0-16.0) g/dL Hct 31.4 L (37-47) % MCV 86.5 (80-100) fL MCH 27.5 (25-34) pg MCHC 31.8 L (32-36) g/dL RDW Std Deviation 44.0 (36.4-46.3) fL RDW Coeff of Tyesha 13.7 (11.5-14.5) % Plt Count 408 H (130-400) K/uL MPV 8.8 (7.4-10.4) fL Immature Gran % (Auto) 0.3 % Neut % (Auto) 77.3 % Lymph % (Auto) 9.9 % [place] % (Auto) 11.1 % Eos % (Auto) 1.2 % Baso % (Auto) 0.2 % Neut # (Auto) 9.24 H (1.4-6.5) K/uL Lymph # (Auto) 1.18 L (1.2-3.4) K/uL [place] # (Auto) 1.33 H (0.11-0.59) K/uL Eos # (Auto) 0.14 (0-0.5) K/uL Baso # (Auto) 0.02 (0-0.2) K/uL Immature Gran # (Auto) 0.04 H (0.00-0.02) K/uL PT (9.0-12.0) Seconds INR (0.9-1.1) APTT (21.0-31.0) Seconds PTT Ratio Sodium (136-145) mmol/L Potassium (3.5-5.1) mmol/L Chloride (98-107) mmol/L Carbon Dioxide (21-32) mmol/L Anion Gap (3-11) BUN (6-23) mg/dl Creatinine (0.6-1.2) mg/dl Est Cr Clr Drug Dosing ml/min Est GFR ( Amer) ml/min Est GFR (Non-Af Amer) ml/min BUN/Creatinine Ratio (10-20) Glucose (70-99(Fasting)) mg/dl Calcium (8.5-10.1) mg/dl Phosphorus (2.5-4.9) mg/dl Magnesium (1.7-2.4) mg/dl Total Bilirubin (0.2-1.0) mg/dl AST (13-39) U/L ALT (7-52) U/L Alkaline Phosphatase (34-104) U/L Troponin I High Sens 6.6 (0-14) pg/ml Total Protein (6.0-8.3) gm/dl Albumin (3.4-5.0) gm/dl Globulin (2.5-4.0) gm/dl Albumin/Globulin Ratio (0.9-2) Lipase (11-82) U/L SARS-CoV-2, RNA, NAAT NEGATIVE (NEGATIVE) Blood Type Antibody Screen Medications Administered Current Inpatient Medications Acetaminophen (Acetaminophen 500 Mg Tab) 1,000 mg PO Q8 [facility] Stop: 03/04/22 21:59 Last Admin: 02/03/22 05:12 Dose: Not Given Documented by: Amlodipine Besylate (Amlodipine Besylate 5 Mg Tab) 5 mg PO QAM [facility] Stop: 03/05/22 08:59 Aspirin (Aspirin 81 Mg Ectab) 81 mg PO BID [facility] Stop: 03/04/22 20:59 Last Admin: 02/02/22 21:16 Dose: 81 mg Documented by: Bisacodyl (Bisacodyl 10 Mg Supp) 10 mg HI DAILY PRN PRN Reason: Constipation Stop: 03/04/22 19:42 Ciprofloxacin (Ciprofloxacin 500 Mg Tab) 500 mg PO BID [facility] Stop: 02/07/22 20:59 Last Admin: 02/02/22 21:16 Dose: 500 mg Documented by: Citalopram Hydrobromide (Citalopram 20 Mg Tab) 10 mg PO QAM [facility] Stop: 03/05/22 08:59 Cefazolin Sodium (Ancef 2000mg) 2,000 mg in 15 mls @ 3.75 mls/min IV PREOP [facility]; Protocol Stop: 02/04/22 05:59 Sodium Chloride (Nss 1000ml) 1,000 mls @ 80 mls/hr IV .[id number] [facility] Stop: 02/03/22 20:42 Last Admin: 02/02/22 21:15 Dose: 80 mls/hr Documented by: Loratadine (Loratadine 10 Mg Tab) 10 mg PO QAM [facility] Stop: 03/05/22 08:59 Magnesium Hydroxide (Magnesium Hydroxide Susp 30 Ml Udc) 30 ml PO Q12H PRN PRN Reason: Constipation Stop: 03/04/22 19:42 Morphine Sulfate (Morphine Sulfate 2 Mg/Ml Carp) 2 mg IV Q3H PRN PRN Reason: Pain Stop: 02/16/22 19:42 Last Admin: 02/03/22 05:47 Dose: 2 mg Documented by: Naloxone HCl (Naloxone Hcl 0.4 Mg/1 Ml Vial/Carp) 0.1 mg IV UD PRN PRN Reason: Opiate Overdose Stop: 03/04/22 19:42 Ondansetron HCl (Ondansetron Inj 2 Mg/Ml 2 Ml Vial) 4 mg IV Q6H PRN PRN Reason: Nausea Stop: 03/04/22 19:42 Polyethylene Glycol (Polyethylene (Miralax) 17 Gm Pack) 17 gm PO DAILY PRN PRN Reason: Constipation Stop: 03/04/22 19:42 Senna/Docusate Sodium (Docusate Sodium/Senna 50/8.6mg Tab) 2 tab PO HS [facility] Stop: 03/04/22 20:59 Last Admin: 02/02/22 21:16 Dose: 2 tab Documented by: Vitamin D (Cholecalciferol 1,000 Units 25 Mcg Tab) 1,000 units PO QAM [facility] Stop: 03/05/22 08:59 (1) Closed intertrochanteric fracture of left hip Encounter type: initial encounter Fracture alignment: displaced Qualified Code(s): S72.142A - Displaced intertrochanteric fracture of left femur, initial encounter for closed fracture
[2022-02-03 09:00] LABS: Hematocrit (blood only) 26.2 % (37-47); Hemoglobin 8.3 g/dL (12.0-16.0); Mean Corpuscular Hemoglobin 27.7 pg (25-34); Mean Corpuscular Volume 87.3 fL (80-100); Mean Platelet Volume 8.2 fL (7.4-10.4); Platelet Count 339 K/uL (130-400); RDW Coefficient of Variation 13.8 % (11.5-14.5); RDW Standard Deviation 44.5 fL (36.4-46.3); White Blood Count 10.18 K/uL (4.8-10.8)
[2022-02-03] MEDS ORDERED: amLODIPine BESYLATE 5 MG TAB PO SCH (09:00)
[2022-02-03 09:01] LABS: Mean Corpuscular Hgb Conc 31.7 g/dL (32-36)
[2022-02-03] MEDS: SODIUM CHLORIDE 0.9% 1000ML 1,000 ML IV SCH (09:33)
[2022-02-03 09:45] LABS: Magnesium 1.8 mg/dl (1.7-2.4)
[2022-02-03 09:46] LABS: BUN Creatinine Ratio 23.6 (10-20); Calcium 8.8 mg/dl (8.5-10.1); Est GFR (African American) 100.5 ml/min; Est GFR (Non-African American) 86.7 ml/min; Potassium 3.9 mmol/L (3.5-5.1)
--- NOTE | 2022-02-03 10:56 | Orthopedic Progress Note ---
Date of Service February 03, 2022 Assessment & Plan (1) Closed intertrochanteric fracture of left hip: Unfortunately she continues to be hyponatremic. Anesthesia does not feel comfortable putting her to sleep with hyponatremia. The hospitalist service will continue to work on elevating her sodium levels throughout the day today. She is currently scheduled to undergo intramedullary nail fixation of her left hip tomorrow morning. I called her daughter personally and let her know. Jeff Beckford was seen and examined at bedside this morning. Overall she is doing fairly well. She is not having too much pain in the left hip as long as she is not moving. Her sodium levels continue to be low. She has no other complaints. Review of Systems All systems reviewed & are unremarkable except as noted in HPI & below. Physical Exam On physical examination of her left hip, she does have a deformity. She has active dorsiflexion of her left ankle. She has pain with any motion of her left hip. Results & Data Results & Data Laboratory Results . Diagnostic Findings . PG Care Time/CCT Total # of Minutes Spent Total Time Spent with Patient: Total time spent is greater than 50% in coordination of care (as documented) at patient's floor/unit and/or counseling patient: Coding Level of Care Code 68695 Subseq Hosp Care Lvl 2 Diagnoses Closed intertrochanteric fracture of left hip S72.142A Encounter type: initial encounter Fracture alignment: displaced (1) Closed intertrochanteric fracture of left hip Encounter type: initial encounter Fracture alignment: displaced Qualified Code(s): S72.142A - Displaced intertrochanteric fracture of left femur, initial encounter for closed fracture
[2022-02-03] MEDS: CIPROFLOXACIN 500 MG TAB PO SCH ×2 (11:18→20:05)
[2022-02-03] MEDS: LORATADINE 10 MG TAB PO SCH (11:18)
[2022-02-03] MEDS: CITALOPRAM 20 MG TAB PO SCH (11:18)
[2022-02-03] MEDS: CHOLECALCIFEROL 1,000 UNITS 25 MCG TAB PO SCH (11:18)
[2022-02-03] MEDS: ASPIRIN 81 MG ECTAB PO SCH ×2 (11:18→20:05)
[2022-02-03] MEDS ORDERED: SODIUM CHLORIDE 0.9% 1000ML 500 ML IV ONE ×2 (11:21→19:19)
[2022-02-03] MEDS ORDERED: MoRPHine SULFATE 2 MG/ML CARP IV STA (11:54)
[2022-02-03] MEDS: LIDOCAINE 5% 1 PATCH TD SCH (12:34)
--- NOTE | 2022-02-03 16:31 | XRay Report ---
XR elbow LT 2V HISTORY: 81 years-old Female fall, pain acute left elbow pain status post fall COMPARISON: None TECHNIQUE: 3 views of the left elbow FINDINGS: Mild dorsal soft tissue swelling. Demineralized appearance of the bones. No large joint effusion. No acute fracture, dislocation or opaque foreign body. IMPRESSION: Mild soft tissue swelling without acute fracture. ACT 112: Negative or not required by law. The above report was generated using voice recognition software. It may contain grammatical, syntax o r spelling errors. Electronically signed by: Prashanth Morales M.D. 02/03/2022 4:29 PM
[2022-02-03] MEDS: DOCUSATE SODIUM/SENNA 50/8.6MG TAB PO SCH (20:05)
[2022-02-03] MEDS ORDERED: SODIUM CHLORIDE 0.9% 500 ML IV ONE (20:15)
[2022-02-03] MEDS: MoRPHine SULFATE 4 MG/ML 1 ML CARP\\VIAL IV PRN (22:28)
[2022-02-04] MEDS: MoRPHine SULFATE 4 MG/ML 1 ML CARP\\VIAL IV PRN ×2 (01:26→04:24)
[2022-02-04] MEDS ORDERED: UREA (UREA-NA) 15 GM PACK PO STA (03:22)
[2022-02-04] MEDS: ACETAMINOPHEN 500 MG TAB PO SCH ×3 (05:19→22:29)
--- NOTE | 2022-02-04 07:17 | Hospitalist Progress Note ---
Date of Service February 04, 2022 Assessment & Plan Admission and Anticipated Discharge Date Admission Date: February 02, 2022 Results & Data Results & Data ([facility]) Vital Signs (Past 12 Hours) Vital Signs Temp Pulse Pulse Resp BP BP Pulse Ox 02/04/22 06:50 36.8 C 71 18 114/67 97 02/04/22 04:09 36.6 C 94 H 20 125/76 92 02/03/22 23:40 36.6 C 86 20 110/68 93 02/03/22 22:20 87 02/03/22 19:50 37.1 C 92 H 20 107/67 92
--- NOTE | 2022-02-04 07:18 | Communication Note ---
Date of Service: February 04, 2022 Was on Iv fluids for low sodium. But Sodium dropped to 126. Notified Nephrology and was recommended to stop fluids and to give urea 30gms one dose. Will follow next levsls. Thanks
[2022-02-04 07:21] LABS: Hematocrit (blood only) 24.5 % (37-47); Hemoglobin 7.7 g/dL (12.0-16.0); Mean Corpuscular Hemoglobin 27.5 pg (25-34); Mean Corpuscular Hgb Conc 31.4 g/dL (32-36); Mean Corpuscular Volume 87.5 fL (80-100); Mean Platelet Volume 8.9 fL (7.4-10.4); Platelet Count 379 K/uL (130-400); RDW Coefficient of Variation 13.8 % (11.5-14.5); RDW Standard Deviation 44.4 fL (36.4-46.3); White Blood Count 14.31 K/uL (4.8-10.8)
--- NOTE | 2022-02-04 07:42 | Hospitalist Progress Note ---
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 Patient and patient's daughter requested [facility]. Reached out to [facility]. Dr. Aguilar is away. [place] [facility] is on-call. Spoke to Dr Kc Now s/p Intramedullary Nail Fixation Left Hip(Left) - Kevan Kc DO Malhotra catheter placed PT/OT to be considered post op Hyponatremia Na: 125 IVF NS given Sodium mildly improved at 127 on 02/03, after gentle IV fluids, continued IV normal saline and gave small bolus urine sodium, urine osmolality c/w hypovolemic hyponatremia Discussed w/nephrology and c/w NS IVF-> overnight Na level not improved and urea given , likely SIADH FR 1.2L, sodium tablets, urea Possible UTI possible recent UTI. Pt had complained of urgency. There was question of possible UTI versus constipation. Was started on Cipro on 02/01/2022 Denies any current urinary symptoms Continue Cipro 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 Dementia Monitor for delirium Reorient frequently Pt's daughter, Jo-Ann Lee [phone] if needed DVT Prophylaxis SCDs Full Code as per discussion with pt and pt's daughter Follows with Dr Jorgensen for routine care Admission and Anticipated Discharge Date Admission Date: February 02, 2022 Subjective Patient seen in follow-up of left hip fracture, hyponatremia Discussed hyponatremia w/ nephrology. Urine studies c/w hypovolemic hyponatremia, NS given but persistently hyponatremic -> given urea overnight, likely SIADH Now pt s/p p Intramedullary Nail Fixation Left Hip(Left) - Kevan Kc DO Currently patient is lying in bed, in no acute distress, on oxymask She is drowsy post op Denies fevers chills, chest pain, shortness of breath, headache, abdominal pain, nausea vomiting Review of Systems Review of Systems: Unobtainable due to cognitive status Physical Exam Physical Exam: General: elderly thin F in NAD (drowsy post op) Head: normocephalic, atraumatic Eyes: PERRL, EOM's intact, conjunctiva non-injected, anicteric ENT: normal inspection external ears, nose, mucous membranes moist Neck: supple, trachea midline Lungs: clear, no respiratory distress, no wheezing/rhonchi/rales CV: RRR, no pretibial edema Abd: normal BS, soft, non-tender Ext: LLE: Left hip covered with surg. dressings (post-op) and ice pack. Distal pulses intact, sensation to light touch intact. Able to wiggle toes, no other active or active range of motion attempted Neuro: Drowsy but able to answer some questions. + Left facial droop is chronic, no focal deficits noted, normal affect Skin: warm, dry Results & Data Results & Data ([facility]) Vital Signs (Past 12 Hours) Vital Signs Temp Pulse Pulse Resp BP BP Pulse Ox 02/04/22 06:50 36.8 C 71 18 114/67 97 02/04/22 04:09 36.6 C 94 H 20 125/76 92 02/03/22 23:40 36.6 C 86 20 110/68 93 02/03/22 22:20 87 02/03/22 19:50 37.1 C 92 H 20 107/67 92 Laboratory Results 02/04/22 02/04/22 02/04/22 Range/Units 06:16 06:16 02:07 WBC 14.31 H (4.8-10.8) K/uL RBC 2.80 L (4.2-5.4) M/uL Hgb 7.7 L (12.0-16.0) g/dL Hct 24.5 L (37-47) % MCV 87.5 (80-100) fL MCH 27.5 (25-34) pg MCHC 31.4 L (32-36) g/dL RDW Std Deviation 44.4 (36.4-46.3) fL RDW Coeff of Tyesha 13.8 (11.5-14.5) % Plt Count 379 (130-400) K/uL MPV 8.9 (7.4-10.4) fL Sodium 126 L 126 L (136-145) mmol/L Potassium 4.1 (3.5-5.1) mmol/L Chloride 97 L (98-107) mmol/L Carbon Dioxide 24 (21-32) mmol/L Anion Gap 5 (3-11) BUN 47 H D (6-23) mg/dl Creatinine 0.66 (0.6-1.2) mg/dl Est Cr Clr Drug Dosing 54.2 ml/min Est GFR ( Amer) 94.7 ml/min Est GFR (Non-Af Amer) 81.7 ml/min BUN/Creatinine Ratio 71.2 H (10-20) Glucose 120 H (70-99(Fasting)) mg/dl Calcium 9.1 (8.5-10.1) mg/dl Phosphorus 2.9 (2.5-4.9) mg/dl Magnesium 1.7 (1.7-2.4) mg/dl Urine Osmolality (500-800) mOsm/kg Ur Random Sodium mmol/L 02/03/22 02/03/22 02/03/22 Range/Units Unknown Unknown 17:44 WBC (4.8-10.8) K/uL RBC (4.2-5.4) M/uL Hgb (12.0-16.0) g/dL Hct (37-47) % MCV (80-100) fL MCH (25-34) pg MCHC (32-36) g/dL RDW Std Deviation (36.4-46.3) fL RDW Coeff of Tyesha (11.5-14.5) % Plt Count (130-400) K/uL MPV (7.4-10.4) fL Sodium 128 L (136-145) mmol/L Potassium (3.5-5.1) mmol/L Chloride (98-107) mmol/L Carbon Dioxide (21-32) mmol/L Anion Gap (3-11) BUN (6-23) mg/dl Creatinine (0.6-1.2) mg/dl Est Cr Clr Drug Dosing ml/min Est GFR ( Amer) ml/min Est GFR (Non-Af Amer) ml/min BUN/Creatinine Ratio (10-20) Glucose (70-99(Fasting)) mg/dl Calcium (8.5-10.1) mg/dl Phosphorus (2.5-4.9) mg/dl Magnesium (1.7-2.4) mg/dl Urine Osmolality 548 (500-800) mOsm/kg Ur Random Sodium 14 mmol/L 02/03/22 02/03/22 02/03/22 Range/Units 08:47 08:47 08:47 WBC 10.18 (4.8-10.8) K/uL RBC 3.00 L (4.2-5.4) M/uL Hgb 8.3 L (12.0-16.0) g/dL Hct 26.2 L (37-47) % MCV 87.3 (80-100) fL MCH 27.7 (25-34) pg MCHC 31.7 L (32-36) g/dL RDW Std Deviation 44.5 (36.4-46.3) fL RDW Coeff of Tyesha 13.8 (11.5-14.5) % Plt Count 339 (130-400) K/uL MPV 8.2 (7.4-10.4) fL Sodium 127 L (136-145) mmol/L Potassium 3.9 (3.5-5.1) mmol/L Chloride 96 L (98-107) mmol/L Carbon Dioxide 26 (21-32) mmol/L Anion Gap 5 (3-11) BUN 13 (6-23) mg/dl Creatinine 0.55 L (0.6-1.2) mg/dl Est Cr Clr Drug Dosing 65.0 ml/min Est GFR ( Amer) 100.5 ml/min Est GFR (Non-Af Amer) 86.7 ml/min BUN/Creatinine Ratio 23.6 H (10-20) Glucose 106 H (70-99(Fasting)) mg/dl Calcium 8.8 (8.5-10.1) mg/dl Phosphorus 3.0 (2.5-4.9) mg/dl Magnesium 1.8 (1.7-2.4) mg/dl Urine Osmolality (500-800) mOsm/kg Ur Random Sodium mmol/L Medications Administered Current Inpatient Medications Acetaminophen (Acetaminophen 500 Mg Tab) 1,000 mg PO Q8 [facility] Stop: 03/04/22 21:59 Last Admin: 02/04/22 05:19 Dose: Not Given Documented by: Amlodipine Besylate (Amlodipine Besylate 5 Mg Tab) [facility] Stop: 03/05/22 08:59 Last Admin: 02/03/22 11:18 Dose: 5 mg Documented by: Aspirin (Aspirin 81 Mg Ectab) 81 mg PO BID [facility] Stop: 03/04/22 20:59 Last Admin: 02/03/22 20:05 Dose: 81 mg Documented by: Bisacodyl (Bisacodyl 10 Mg Supp) 10 mg ND DAILY PRN PRN Reason: Constipation Stop: 03/04/22 19:42 Ciprofloxacin (Ciprofloxacin 500 Mg Tab) 500 mg PO BID [facility] Stop: 02/07/22 20:59 Last Admin: 02/03/22 20:05 Dose: 500 mg Documented by: Citalopram Hydrobromide (Citalopram 20 Mg Tab) 10 mg PO [facility] Stop: 03/05/22 08:59 Last Admin: 02/03/22 11:18 Dose: 10 mg Documented by: Lidocaine (Lidocaine 5% 1 Patch) 1 patch TD [facility] Stop: 03/05/22 11:59 Last Admin: 02/03/22 12:34 Dose: 1 patch Documented by: Loratadine (Loratadine 10 Mg Tab) 10 mg PO [facility] Stop: 03/05/22 08:59 Last Admin: 02/03/22 11:18 Dose: 10 mg Documented by: Magnesium Hydroxide (Magnesium Hydroxide Susp 30 Ml Udc) 30 ml PO Q12H PRN PRN Reason: Constipation Stop: 03/04/22 19:42 Miscellaneous (Remove Lidoderm Patch) 1 ea N/A DAILY@2100 [facility] Stop: 03/05/22 22:59 Last Admin: 02/03/22 22:29 Dose: 1 ea Documented by: Morphine Sulfate (Morphine Sulfate 4 Mg/Ml 1 Ml Carp\Vial) 3 mg IV Q3H PRN PRN Reason: Pain Stop: 02/16/22 19:42 Last Admin: 02/04/22 04:24 Dose: 3 mg Documented by: Naloxone HCl (Naloxone Hcl 0.4 Mg/1 Ml Vial/Carp) 0.1 mg IV UD PRN PRN Reason: Opiate Overdose Stop: 03/04/22 19:42 Ondansetron HCl (Ondansetron Inj 2 Mg/Ml 2 Ml Vial) 4 mg IV Q6H PRN PRN Reason: Nausea Stop: 03/04/22 19:42 Polyethylene Glycol (Polyethylene (Miralax) 17 Gm Pack) 17 gm PO DAILY PRN PRN Reason: Constipation Stop: 03/04/22 19:42 Senna/Docusate Sodium (Docusate Sodium/Senna 50/8.6mg Tab) 2 tab PO HS [facility] Stop: 03/04/22 20:59 Last Admin: 02/03/22 20:05 Dose: 2 tab Documented by: Vitamin D (Cholecalciferol 1,000 Units 25 Mcg Tab) 1,000 units PO QAM [facility] Stop: 03/05/22 08:59 Last Admin: 02/03/22 11:18 Dose: 1,000 units Documented by: (1) Closed intertrochanteric fracture of left hip Encounter type: initial encounter Fracture alignment: displaced Qualified Code(s): S72.142A - Displaced intertrochanteric fracture of left femur, initial encounter for closed fracture
[2022-02-04 07:56] LABS: BUN Creatinine Ratio 71.2 (10-20); Calcium 9.1 mg/dl (8.5-10.1); Creatinine Clr Calc Pharmacy 54.2 ml/min; Est GFR (African American) 94.7 ml/min; Est GFR (Non-African American) 81.7 ml/min; Magnesium 1.7 mg/dl (1.7-2.4); Phosphorus 2.9 mg/dl (2.5-4.9); Potassium 4.1 mmol/L (3.5-5.1)
[2022-02-04] MEDS ORDERED: PROPOFOL IV EMULSION 10 MG/ML 20 ML VIAL IV ONE (08:24)
[2022-02-04] MEDS ORDERED: ONDANSETRON INJ 2 MG/ML 2 ML VIAL ONE (08:24)
[2022-02-04] MEDS ORDERED: LIDOCAINE 2% 2 ML VIAL/AMP(20MG/ML) INFIL ONE (08:24)
[2022-02-04] MEDS ORDERED: fentaNYL citrate 100 MCG/2 ML VIAL ONE (08:25)
--- NOTE | 2022-02-04 09:07 | Anesthesiology Consultation ---
Date of Service February 04, 2022 Assessment & Plan ASA ASA3 Proposed Anesthesia Anesthesia Type: General Risk / Benefits Reviewed With: PT / POA / Parent / Guardian, Accepts Plan and Informed Consent Obtained Additional Comments: pt is hyponatremic. 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 pt also at increased risk for comorbidities if we continue to wait. we will proceed with judicial use of fluids. pt family is aware of risk and wish to proceed History Surgery Operation Date: 02/03/22 10:15 Proposed Procedures p Intramedullary Medullary Short Nail Trochanteric Fracture Left - Kevan Kc DO Operation Date: 02/04/22 07:00 Proposed Procedures p Intramedullary Teddy Femur(Left) - Kevan Kc DO Operation Date: 02/04/22 09:00 Proposed Procedures p Intramedullary Teddy Femur - Kevan Kc DO Height/Weight Height: 5 ft 1 in Weight: 61.3 kg Allergies Allergy/AdvReac Type Severity Reaction Status Date / Time ezetimibe [From Zetia] Allergy Unknown ON Verified 02/02/22 15:41 [facility] Sulfa (Sulfonamide Allergy Unknown ON Verified 02/02/22 15:41 Antibiotics) [facility] sulfamethoxazole Allergy Unknown ON Verified 02/02/22 15:41 [From Bactrim] [facility] tramadol Allergy Unknown ON Verified 02/02/22 15:41 [facility] trimethoprim [From Bactrim] Allergy Unknown ON Verified 02/02/22 15:41 [facility] Medications Home Medications Medication Instructions Recorded Confirmed Last Taken amlodipine 5 mg tablet 5 mg PO QAM 12/25/21 02/02/22 01/31/22 cholecalciferol (vitamin D3) 25 25 mcg PO QAM 12/25/21 02/02/22 01/31/22 mcg (1,000 unit) capsule (Vitamin D3) citalopram 10 mg tablet 10 mg PO QAM 12/25/21 02/02/22 01/31/22 loratadine 10 mg tablet (Claritin) 10 mg PO QAM 12/25/21 02/02/22 01/31/22 acetaminophen 500 mg tablet 1,000 mg PO Q8 #30 tab 01/02/22 02/02/22 01/31/22 08:00 (Tylenol Extra Strength) aspirin 81 mg capsule 81 mg PO BID #30 cap 01/02/22 02/02/22 01/31/22 08:00 docusate sodium 100 mg capsule 100 mg PO BID 01/31/22 02/02/22 01/31/22 08:00 oxybutynin chloride 5 mg tablet 2.5 mg PO TID PRN #14 tab 01/31/22 02/02/22 Unknown ciprofloxacin HCl 500 mg tablet 500 mg PO BID 02/02/22 02/02/22 Unknown (Cipro) phenazopyridine 200 mg tablet 200 mg PO BID PRN 02/02/22 02/02/22 Unknown Active Medications Generic Name Dose Route Start Last Admin Trade Name Freq PRN Reason Stop Dose Admin Acetaminophen 1,000 mg 02/02/22 22:00 02/04/22 05:19 Acetaminophen 500 Mg Tab PO 03/04/22 21:59 Not Given Q8 SELIN Amlodipine Besylate 5 mg 02/03/22 09:00 02/03/22 11:18 Amlodipine Besylate 5 Mg Tab PO 03/05/22 08:59 5 mg QAM SELIN Administration Aspirin 81 mg 02/02/22 21:00 02/03/22 20:05 Aspirin 81 Mg Ectab PO 03/04/22 20:59 81 mg BID SELIN Administration Ciprofloxacin 500 mg 02/02/22 21:00 02/03/22 20:05 Ciprofloxacin 500 Mg Tab PO 02/07/22 20:59 500 mg BID SELIN Administration Citalopram Hydrobromide 10 mg 02/03/22 09:00 02/03/22 11:18 Citalopram 20 Mg Tab PO 03/05/22 08:59 10 mg QAM SELIN Administration Lidocaine 1 patch 02/03/22 12:00 02/03/22 12:34 Lidocaine 5% 1 Patch TD 03/05/22 11:59 1 patch QAM SELIN Administration Loratadine 10 mg 02/03/22 09:00 02/03/22 11:18 Loratadine 10 Mg Tab PO 03/05/22 08:59 10 mg QAM SELIN Administration Miscellaneous 1 ea 02/03/22 23:00 02/03/22 22:29 Remove Lidoderm Patch N/A 03/05/22 22:59 1 ea DAILY@2100 SELIN Administration Morphine Sulfate 3 mg 02/03/22 22:08 02/04/22 04:24 Morphine Sulfate 4 Mg/Ml 1 Ml Carp\Vial IV 02/16/22 19:42 3 mg Q3H PRN Administration Pain Senna/Docusate Sodium 2 tab 02/02/22 21:00 02/03/22 20:05 Docusate Sodium/Senna 50/8.6mg Tab PO 03/04/22 20:59 2 tab HS SELIN Administration Vitamin D 1,000 units 02/03/22 09:00 02/03/22 11:18 Cholecalciferol 1,000 Units 25 Mcg Tab PO 03/05/22 08:59 1,000 units QAM SELIN Administration Past Medical History Medical History Spencer's palsy Closed right hip fracture Dementia Fall History of breast cancer Lumbar spinal stenosis Osteoporosis Pre-diabetes Exercise / Class Metabolic Activity II 4-5 Yardwork/Stairs/Walk up hill Past Family History Family History Mother Alzheimer disease Father Heart disease Past Surgical History Surgical History History of partial mastectomy hx of dcis Past Anesthesia History No Hx of Anesthesia Complications and No Family Hx of Anesthesia Complications History of PONV No Hx of PONV and No Hx of Motion Sickness Social History Smoking Status: Never smoker Hx Alcohol Use: Yes alcohol intake frequency: holidays/special occasions only Hx Substance Use: No substance use type: does not use Review of Systems denies fever/cough/ colds/ chest pain/ SOB/ JULIANNA denies JULIANNA Physical Exam Vital Signs Last Vital Signs Temp 36.8 C 02/04/22 06:50 Pulse 71 02/04/22 06:50 Resp 18 02/04/22 06:50 BP 114/67 02/04/22 06:50 Pulse Ox 97 02/04/22 06:50 ENMT Mouth: no TMJ abnormality and no dentition abnormality Thyromental Distance: > or= 3.5 Finger Breadths Mallampati Class: II Neck neck extension not limited Respiratory normal respiratory effort; no respiratory distress Auscultation: lungs clear to auscultation bilaterally Cardiovascular Rate/Rhythm: regular rate and regular rhythm Neurologic moves all extremities Psychiatric Orientation: alert and oriented x 3 Testing Laboratory Results 02/04/22 06:16 02/04/22 06:16 PT 10.9 Seconds (9.0-12.0) 02/02/22 15:10 INR 1.0 (0.9-1.1) 02/02/22 15:10 APTT 24.1 Seconds (21.0-31.0) 02/02/22 15:10 Blood Type A Negative 02/02/22 19:54 Antibody Screen NEGATIVE 02/02/22 19:54 Electrocardiogram Date: 02/02/22 Findings: + NSR @ (at 87 w/ sinus arrhythmia) and + NSST changes Chest X-Ray Date: 02/02/22 Findings: + NAD hiatal hernia
--- NOTE | 2022-02-04 09:15 | History & Physical Bridge Note ---
Date of Service February 04, 2022 History & Physical Bridge Note I have examined the patient, reviewed the History & Physical and in the interval since the performance of the History & Physical I have noted the following changes of clinical significance: Analy's sodium remains low. Unfortunately, we have been unable to elevate her sodium levels after attempts by the hospitalist team. At this point the morbidity of an untreated hip fracture continues to rise. Given all the risk and benefits, we elected to proceed with fixation of the left hip with the hyponatremia.
[2022-02-04] MEDS ORDERED: BUPIVACAINE/EPINEPHRINE 0.25% 1:200,000 30 ML VIAL ONE (09:23)
[2022-02-04] MEDS ORDERED: ceFAZolin 1000MG 1,000 MG/7.5 ML SYR IV ONE (10:01)
[2022-02-04] MEDS ORDERED: ceFAZolin 330 MG/ML 1 GM VIAL ONE (10:08)
[2022-02-04] MEDS ORDERED: PHENYLEPHRINE HCL 10 MG/ML VIAL ONE (10:08)
[2022-02-04] MEDS ORDERED: ROCURONIUM BROMIDE 10 MG/ML 5 ML VIAL IV ONE (10:13)
--- NOTE | 2022-02-04 10:19 | Nephrology Consultation ---
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 Admission sodium was 125 which increased to 128 with IV fluids but then dropped to 126 this morning. Urine osmolality was 548 and urine sodium of 14. 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 -We will give urea 15 g twice daily -Okay to monitor sodium daily -Fluid restriction of 1.2 L daily -Salt tablets 1 g 3 times daily (2) Closed intertrochanteric fracture of left hip: Patient is planned for ORIF this morning. Continue adequate pain control. History of Present Illness Reason for Consultation: Hyponatremia Requesting Physician: Chai Gaffney MD Attending Physician: Chai Gaffney MD History of Present Illness This is 81-year-old female being seen for hyponatremia. 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 Patient with history fall and right hip fracture in 12/2021 that was repaired by Dr. Aguilar. Patient currently residing in [facility]. Patient was admitted with for an left hip fracture. She was also found to have hyponatremia with sodium of 125 on admission. She is taking ciprofloxacin for UTI which was started outpatient. Her sodium improved to 128 with IV fluids but then dropped to 126 this morning. Patient is in the OR going for ORIF. Patient is drowsy this morning after receiving pain medication and is unable to give history. Allergies Allergy/AdvReac Type Severity Reaction Status Date / Time ezetimibe [From Zetia] Allergy Unknown ON Verified 02/02/22 15:41 [facility] Sulfa (Sulfonamide Allergy Unknown ON Verified 02/02/22 15:41 Antibiotics) [facility] sulfamethoxazole Allergy Unknown ON Verified 02/02/22 15:41 [From Bactrim] [facility] tramadol Allergy Unknown ON Verified 02/02/22 15:41 [facility] trimethoprim [From Bactrim] Allergy Unknown ON Verified 02/02/22 15:41 [employer] [facility] Home Medications Medication Instructions Recorded Confirmed Type amlodipine 5 mg tablet 5 mg PO QAM 12/25/21 02/02/22 History cholecalciferol (vitamin D3) 25 25 mcg PO QAM 12/25/21 02/02/22 History mcg (1,000 unit) capsule (Vitamin D3) citalopram 10 mg tablet 10 mg PO QAM 12/25/21 02/02/22 History loratadine 10 mg tablet (Claritin) 10 mg PO QAM 12/25/21 02/02/22 History acetaminophen 500 mg tablet 1,000 mg PO Q8 #30 tab 01/02/22 02/02/22 Rx (Tylenol Extra Strength) aspirin 81 mg capsule 81 mg PO BID #30 cap 01/02/22 02/02/22 Rx docusate sodium 100 mg capsule 100 mg PO BID 01/31/22 02/02/22 History oxybutynin chloride 5 mg tablet 2.5 mg PO TID PRN #14 tab 01/31/22 02/02/22 Rx ciprofloxacin HCl 500 mg tablet 500 mg PO BID 02/02/22 02/02/22 History (Cipro) phenazopyridine 200 mg tablet 200 mg PO BID PRN 02/02/22 02/02/22 History Patient History Medical History Spencer's palsy Closed right hip fracture Dementia Fall History of breast cancer Lumbar spinal stenosis Osteoporosis Pre-diabetes Surgical History History of partial mastectomy hx of dcis Family History Mother Alzheimer disease Father Heart disease Social History Smoking Status: Never smoker Hx Alcohol Use: Yes Hx Substance Use: No Preferred Language: Persian Communication Ability: Effective Lesson Instructor Required: No Beliefs That Will Affect Care: None marital status: Current Living Situation: Personal Care Facility How many Children do You have: 2 Feels Safe at Home: Yes Assistive Devices: Walker and Wheelchair Review of Systems Review of Systems: Unable to obtain due to altered mental status Physical Exam Physical Exam: General exam: Appears comfortable, no acute distress HEENT: Pupils are equal and reactive to light Neck: No JVD, neck is supple trachea is midline Respiratory system: Clear breath sounds bilaterally. Gastrointestinal: Abdomen is soft, non distended, non tender, bowel sounds are present CVS: Regular rate and rhythm. No murmurs, rubs or gallops Musculoskeletal: No joint or muscle tenderness Extremities: Left thigh is swollen and tender Neuro: Oriented, no tremors, no focal neurological deficits Skin: No rashes Results & Data ([facility]) Vital Signs (Past 12 Hours) Vital Signs Temp Pulse Pulse Resp BP BP Pulse Ox 02/04/22 09:17 98 H 02/04/22 06:50 36.8 C 71 18 114/67 97 02/04/22 04:09 36.6 C 94 H 20 125/76 92 02/03/22 23:40 36.6 C 86 20 110/68 93 02/03/22 22:20 87 Laboratory Results 02/04/22 06:16 02/04/22 02/04/22 06:16 06:16 WBC 14.31 H RBC 2.80 L MCV 87.5 MCH 27.5 MCHC 31.4 L RDW Std Deviation 44.4 RDW Coeff of Tyesha 13.8 Plt Count 379 MPV 8.9 Phosphorus 2.9 (1) Closed intertrochanteric fracture of left hip Encounter type: initial encounter Fracture alignment: displaced Qualified Code(s): S72.142A - Displaced intertrochanteric fracture of left femur, initial encounter for closed fracture
[2022-02-04] MEDS ORDERED: VASOPRESSIN 20 UNIT/ML VIAL ONE (10:31)
--- NOTE | 2022-02-04 10:54 | Operative Report ---
PG Post Operative Report Pre & Post Diagnosis Operation Date: 02/03/22 10:15 <No data on this case meets the specified criteria> Operation Date: 02/04/22 07:00 <No data on this case meets the specified criteria> Operation Date: 02/04/22 09:00 Pre-Op Diagnosis: Closed intertrochanteric fracture of left hip Post-Op Diagnosis: Closed intertrochanteric fracture of left hip I identified the patient and participated in the time-out.: Yes Procedure Operation Date: 02/03/22 10:15 <No data on this case meets the specified criteria> Operation Date: 02/04/22 07:00 <No data on this case meets the specified criteria> Operation Date: 02/04/22 09:00 Actual Procedures p Intramedullary Nail Fixation Left Hip(Left) - Kevan Kc DO Surgeon Kevan Kc, Almond Roaster Ariel Galaviz PAC Estimated Blood Loss 50 Findings Consistent with Post-Op Diagnosis Specimens None Complications none Disposition Disposition: Recovery Room Indications Analy is a pleasant 81-year-old female who fell 2 days ago sustaining a left intertrochanteric hip fracture. Her surgery was canceled yesterday due to hyponatremia. Unfortunately her sodium levels were still low. We discussed the risks with the family. The morbidity of an untreated hip fracture increases with time. After discussions with her and the family, we elected proceed with an intramedullary nail fixation of the left hip. Description of Procedure On February 04, 2022 Analy was brought down from her hospital room to the preoperative holding area. The operative extremity identified and signed. She was given a preoperative antibiotic and TXA. She was taken back to the operative room and laid on a fracture table in supine position. She was put under general an esthesia. The left hip was brought to traction. Fluoroscopic images showed near anatomic reduction. The left hip was then prepped and draped in sterile fashion. A timeout was done. The patient and the operative extremity was properly identified. A longitudinal incision was made just proximal to the greater trochanter. Dissection was taken down through the fascia and the IT band was split. The tip of the greater trochanter was exposed. A guidepin was then sent from the tip of the greater trochanter to the center of the femoral canal. A 17 mm opening reamer was used to open the proximal femur. An additional incision was made at the fracture site. Dissection was taken down to the IT band and the IT band was split. The vastus lateralis was split and the fracture was exposed. I was able to reduce the fracture manually. Once the fracture was reduced a Synthes TFN intermediate nail was then impacted into place. Fluoroscopic images were used to ensure appropriate placement of the nail and anatomic reduction of the fracture. A cannula was then advanced to the lateral cortex of the femur for the central helical blade. A guidepin was then sent into the center center position of the femoral head. The lateral cortex was then reamed. The helical blade measured to be 85 mm. The femoral head was drilled and a final 85 mm helical blade was then impacted into place. The helical blade was then locked proximally. A single locking screw was placed distally. The outrigger was then removed. Final fluoroscopic images showed anatomic alignment of the fracture and good placement of the hardware. The wounds were then irrigated. The IT band was closed with #1 Vicryl. Deep fat layer was closed with 2-0 Vicryl. Subcutaneous layer was closed with 2-0 Vicryl and skin was closed with aime. A soft dressing was placed. She was then extubated and transferred to a hospital bed. She was taken to the postanesthesia care unit in stable condition. She tolerated the procedure well. Ariel Galaviz PA-C, was present for the entire procedure. He was critical for patient positioning, prepping, draping, retraction exposure, wound closure and application of sterile dressing. I attest to the content of the Intraoperative Record and any orders documented therein. Any exceptions are noted below.
--- NOTE | 2022-02-04 11:37 | Fluoroscopy Report ---
INTRAOPERATIVE RADIOGRAPHS CLINICAL HISTORY: Open reduction and internal fixation of the left proximal femur. Fluoroscopy time: 59 seconds. FINDINGS: 3 spot fluoroscopic views of the left femur are correlated with radiographs dated 02/02/2022 . There has been intertrochanteric and intramedullary nail fixation of a comminuted intertrochanteric /subtrochanteric fracture of the left proximal femur. Near-anatomic alignment is restored. A single c ortical lag screw transfixes the distal end of the intramedullary nail. The orthopedic hardware appea rs intact. IMPRESSION: Intraoperative images from open reduction and internal fixation of a left femoral fractur e as above. Electronically signed by: Abdoulaye Brumfield M.D. 02/04/2022 11:35 AM
--- NOTE | 2022-02-04 11:40 | Anesthesiology Progress Note ---
Date of Service February 04, 2022 Anesthesia Post Procedure Vital Signs Vital Signs: Temp Pulse Pulse Resp BP BP Pulse Ox 02/04/22 11:30 97 H 13 100/71 94 02/04/22 11:20 97 H 12 112/66 94 02/04/22 11:10 97 H 13 106/54 L 96 02/04/22 11:02 36.6 C 92 H 12 111/68 94 02/04/22 09:17 98 H 02/04/22 06:50 36.8 C 71 18 114/67 97 02/04/22 04:09 36.6 C 94 H 20 125/76 92 02/03/22 23:40 36.6 C 86 20 110/68 93 02/03/22 22:20 87 02/03/22 19:50 37.1 C 92 H 20 107/67 92 02/03/22 15:48 98 H 02/03/22 15:22 36.7 C 88 19 113/69 92 Pain Intensity Left Hip: Pain Intensity: 5 Transfer of Care Handoff Completed per policy Notes Mental Status: alert / awake / arousable and participated in evaluation Patient Amnestic to Procedure: Yes Nausea / Vomiting: adequately controlled Pain: adequately controlled Airway Patency, RR, SpO2: stable & adequate BP & HR: stable & adequate Hydration State: stable & adequate Anesthetic Complications: no major complications apparent and Pt Satisfied with anesthetic care Notes: pt had some wheezing immdeiatly post op. pt given albuterol. reexamined and i believe that the sounds are now supraglottic.
[2022-02-04] MEDS: LIDOCAINE 5% 1 PATCH TD SCH (11:58)
[2022-02-04] MEDS: ASPIRIN 81 MG ECTAB PO SCH ×2 (11:59→20:08)
[2022-02-04] MEDS: CHOLECALCIFEROL 1,000 UNITS 25 MCG TAB PO SCH (11:59)
[2022-02-04] MEDS: CIPROFLOXACIN 500 MG TAB PO SCH ×2 (11:59→20:08)
[2022-02-04] MEDS: UREA (UREA-NA) 15 GM PACK PO SCH ×2 (12:00→20:07)
[2022-02-04] MEDS: LORATADINE 10 MG TAB PO SCH (12:00)
--- NOTE | 2022-02-04 12:28 | Anesthesiology Progress Note ---
Date of Service February 04, 2022 Anesthesia Post Procedure Vital Signs Vital Signs: Temp Pulse Pulse Resp BP BP Pulse Ox 02/04/22 12:28 89 02/04/22 12:20 91 H 02/04/22 12:18 36.5 C 93 H 12 111/67 97 02/04/22 11:51 36.7 C 100 H 18 113/72 98 02/04/22 11:40 37.3 C 97 H 14 112/66 93 02/04/22 11:30 97 H 13 100/71 94 02/04/22 11:20 97 H 12 112/66 94 02/04/22 11:10 97 H 13 106/54 L 96 02/04/22 11:02 36.6 C 92 H 12 111/68 94 02/04/22 09:17 98 H 02/04/22 06:50 36.8 C 71 18 114/67 97 02/04/22 04:09 36.6 C 94 H 20 125/76 92 02/03/22 23:40 36.6 C 86 20 110/68 93 02/03/22 22:20 87 02/03/22 19:50 37.1 C 92 H 20 107/67 92 02/03/22 15:48 98 H 02/03/22 15:22 36.7 C 88 19 113/69 92 Pain Intensity Left Hip: Pain Intensity: 5 Transfer of Care Handoff Completed per policy Notes Mental Status: alert / awake / arousable and participated in evaluation Patient Amnestic to Procedure: Yes Nausea / Vomiting: adequately controlled Pain: adequately controlled Airway Patency, RR, SpO2: stable & adequate BP & HR: stable & adequate Hydration State: stable & adequate Anesthetic Complications: no major complications apparent and Pt Satisfied with anesthetic care
[2022-02-04] MEDS: ENOXAPARIN INJ 40 MG/0.4 ML SYR SQ SCH (12:40)
[2022-02-04] MEDS: SODIUM CHLORIDE 1 GM TABLET PO SCH ×2 (14:51→20:08)
--- NOTE | 2022-02-04 15:00 | XRay Report ---
LEFT HIP 2 VIEWS CLINICAL HISTORY: Postoperative examination. FINDINGS: AP and crosstable lateral views of the left hip are compared to study dated 02/02/2022. The skeletal structures are osteopenic. Intertrochanteric and intramedullary nails have been placed trans fixing an intertrochanteric/subtrochanteric fracture. Near-anatomic alignment is restored. A single c ortical lag screw transfixes the distal end of the intramedullary nail. There is mild persistent offs et of the fragments by approximately 4 mm. No new fracture is seen. The visualized left hemipelvis ap pears intact. Mild to moderate degenerative joint space narrowing and arthritic change is seen in the left hip. Skin clips, soft tissue edema, and subcutaneous gas overlying the left hip are expected po stoperative findings. IMPRESSION: Expected postoperative findings status post open reduction and internal fixation of the l eft proximal femur. See above. Electronically signed by: Abdoulaye Brumfield M.D. 02/04/2022 2:58 PM
[2022-02-04] MEDS ORDERED: FLUCONAZOLE 50 MG TAB PO ONE (16:23)
[2022-02-04] MEDS: ceFAZolin 2000MG 2,000 MG/15 ML SYR IV SCH (16:44)
[2022-02-04] MEDS ORDERED: oxyCODONE HCL IR 5 MG TAB (IMMEDIATE RELEASE) PO STA (19:22)
[2022-02-04] MEDS ORDERED: LEVALBUTEROL HCL 0.63 MG/3 ML NEB NEB STA (19:29)
[2022-02-04] MEDS ORDERED: LEVALBUTEROL HCL 0.63 MG/3 ML NEB NEB PRN (19:29)
[2022-02-04] MEDS ORDERED: LEVALBUTEROL HCL 0.63 MG/3 ML NEB ONE (19:36)
--- NOTE | 2022-02-04 20:01 | XRay Report ---
SINGLE VIEW CHEST CLINICAL HISTORY: Dyspnea. FINDINGS: An AP, portable, upright chest radiograph is compared to study dated 02/02/2022. The cardio mediastinal silhouette is unremarkable noting atherosclerotic calcification of the thoracic aorta. Ch ronic interstitial thickening similar to previous. There is chronic elevation of the right hemidiaphr agm with right basilar atelectasis. There is also mild scarring/atelectasis at the left lung base. N o airspace consolidation, large pleural effusion, or pneumothorax is seen. The skeletal structures ar e osteopenic. The bony thorax is grossly intact. Surgical clips project over the left upper quadrant. Cholecystectomy clips are noted in the right upper quadrant. IMPRESSION: No acute cardiopulmonary abnormality. ACT 112: Negative or not required by law. Electronically signed by: Abdoulaye Brumfield M.D. 02/04/2022 8:00 PM
[2022-02-04] MEDS: DOCUSATE SODIUM/SENNA 50/8.6MG TAB PO SCH (20:13)
[2022-02-05] MEDS: ceFAZolin 2000MG 2,000 MG/15 ML SYR IV SCH (01:01)
[2022-02-05] MEDS ORDERED: MoRPHine SULFATE 2 MG/ML CARP IV STA (03:44)
[2022-02-05] MEDS ORDERED: HYDROmorphone INJ 0.5 MG/0.5 ML SYR IV STA (04:32)
[2022-02-05] MEDS: ACETAMINOPHEN 500 MG TAB PO SCH ×3 (05:00→20:04)
[2022-02-05 07:25] LABS: Hemoglobin 6.7 g/dL (12.0-16.0); Mean Corpuscular Hemoglobin 27.5 pg (25-34); Mean Corpuscular Hgb Conc 31.9 g/dL (32-36); Mean Corpuscular Volume 86.1 fL (80-100); Mean Platelet Volume 8.7 fL (7.4-10.4); Platelet Count 372 K/uL (130-400); RDW Coefficient of Variation 13.9 % (11.5-14.5); RDW Standard Deviation 44.5 fL (36.4-46.3); Red Blood Count 2.44 M/uL (4.2-5.4); White Blood Count 12.22 K/uL (4.8-10.8)
[2022-02-05] MEDS ORDERED: SODIUM CHLORIDE 0.9% 250 ML IV PRN ×2 (07:31→08:12)
--- NOTE | 2022-02-05 07:34 | Hospitalist Progress Note ---
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 Patient and patient's daughter requested [facility]. Reached out to [facility]. Dr. Aguilar is away. [facility] is on-call. Spoke to Dr Kc Now s/p Intramedullary Nail Fixation Left Hip(Left) - Kevan Kc DO Malhotra catheter placed PT/OT to be considered post op Acute blood loss anemia/postop anemia -Partially dilutional, after IVF - Pre-op Hemoglobin about 8, currently 6.7 -1 unit of PRBCs ordered -Continue to monitor H&H Hyponatremia Na: 125 IVF NS given Sodium mildly improved at 127 on 02/03, after gentle IV fluids, continued IV normal saline and gave small bolus urine sodium, urine osmolality c/w hypovolemic hyponatremia Discussed w/nephrology and c/w NS IVF-> overnight Na level not improved and urea given , likely SIADH FR 1.2L, sodium tablets, urea Hypovitaminosis D - vitamin D level 18, 50,000 units given -Patient should continue on this dose once a week for several weeks and follow- up with PCP Possible UTI possible recent UTI. Pt had complained of urgency. There was question of possible UTI versus constipation. Was started on Cipro on 02/01/2022 Denies any current urinary symptoms Continue Cipro 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 Dementia Monitor for delirium Reorient frequently Pt's daughter, Jo-Ann Lee [phone] if needed DVT Prophylaxis SCDs, lovenox Full Code as per discussion with pt and pt's daughter Follows with Dr Jorgensen for routine care Admission and Anticipated Discharge Date Admission Date: February 02, 2022 Subjective Patient seen in follow-up of left hip fracture, hyponatremia Now pt s/p p Intramedullary Nail Fixation Left Hip(Left) - Kevan Kc DO Na improved at 132 (w/ salt tablets and FR) Hgb 6.7 - 1 unit of pRBC ordered Currently patient is lying in bed, in no acute distress, on oxymask She is a bit drowsy Denies fevers chills, chest pain, shortness of breath, headache, abdominal pain, nausea vomiting cont. to have L hip pain Review of Systems Review of Systems: All systems reviewed & are unremarkable except as noted in Subjective Physical Exam Physical Exam: General: elderly thin F in NAD, but cont. to have L hip pain Head: normocephalic, atraumatic Eyes: PERRL, EOM's intact, conjunctiva non-injected, anicteric ENT: normal inspection external ears, nose, mucous membranes moist Neck: supple, trachea midline Lungs: clear, no respiratory distress, no wheezing/rhonchi/rales CV: RRR, no pretibial edema Abd: normal BS, soft, non-tender Ext: LLE: Left hip covered with surg. dressings (post-op) and ice pack. Distal pulses intact, sensation to light touch intact. Able to wiggle toes, no other active or active range of motion attempted Neuro: Drowsy but able to answer some simple questions. Skin: warm, dry Results & Data Results & Data ([facility]) Vital Signs (Past 12 Hours) Vital Signs Temp Pulse Pulse Resp BP Pulse Ox Pulse Ox 02/05/22 07:23 82 02/05/22 06:10 36.7 C 96 H 20 103/54 L 96 02/05/22 03:57 36.7 C 98 H 18 130/70 98 02/05/22 03:29 98 02/05/22 03:22 93 H 20 92 02/05/22 03:02 36.9 C 90 18 93/58 L 98 02/05/22 03:00 98 02/05/22 00:21 84 02/04/22 23:06 36.9 C 79 16 87/54 L 98 02/04/22 23:00 99 02/04/22 21:00 36.9 C 80 16 96/64 L 99 02/04/22 19:41 91 H 22 96 Laboratory Results 02/05/22 02/05/22 02/05/22 Range/Units 06:44 06:44 06:44 WBC 12.22 H (4.8-10.8) K/uL RBC 2.44 L (4.2-5.4) M/uL Hgb 6.7 L* (12.0-16.0) g/dL Hct 21.0 L (37-47) % MCV 86.1 (80-100) fL MCH 27.5 (25-34) pg MCHC 31.9 L (32-36) g/dL RDW Std Deviation 44.5 (36.4-46.3) fL RDW Coeff of Tyesha 13.9 (11.5-14.5) % Plt Count 372 (130-400) K/uL MPV 8.7 (7.4-10.4) fL Immature Gran % (Auto) 0.3 % Neut % (Auto) 79.6 % Lymph % (Auto) 5.5 % [place] % (Auto) 14.6 % Eos % (Auto) 0.0 % Baso % (Auto) 0.0 % Neut # (Auto) 9.73 H (1.4-6.5) K/uL Lymph # (Auto) 0.67 L (1.2-3.4) K/uL [place] # (Auto) 1.78 H (0.11-0.59) K/uL Eos # (Auto) 0.00 (0-0.5) K/uL Baso # (Auto) 0.00 (0-0.2) K/uL Immature Gran # (Auto) 0.04 H (0.00-0.02) K/uL RBC Morphology Unremarkable Sodium 132 L (136-145) mmol/L Potassium 4.7 (3.5-5.1) mmol/L Chloride 102 (98-107) mmol/L Carbon Dioxide 26 (21-32) mmol/L Anion Gap 4 (3-11) BUN 34 H (6-23) mg/dl Creatinine 0.66 (0.6-1.2) mg/dl Est Cr Clr Drug Dosing 55.0 ml/min Est GFR ( Amer) 94.7 ml/min Est GFR (Non-Af Amer) 81.7 ml/min BUN/Creatinine Ratio 51.5 H (10-20) Glucose 132 H (70-99(Fasting)) mg/dl Osmolality (280-300) mOsm/kg Calcium 9.2 (8.5-10.1) mg/dl Phosphorus 2.9 (2.5-4.9) mg/dl Magnesium 1.9 (1.7-2.4) mg/dl 25-OH Vitamin D Total 18.0 L (30-100) ng/ml Blood Type Antibody Screen Crossmatch 02/04/22 02/04/22 02/02/22 Range/Units 19:09 08:45 19:54 WBC (4.8-10.8) K/uL RBC (4.2-5.4) M/uL Hgb (12.0-16.0) g/dL Hct (37-47) % MCV (80-100) fL MCH (25-34) pg MCHC (32-36) g/dL RDW Std Deviation (36.4-46.3) fL RDW Coeff of Tyesha (11.5-14.5) % Plt Count (130-400) K/uL MPV (7.4-10.4) fL Immature Gran % (Auto) % Neut % (Auto) % Lymph % (Auto) % [place] % (Auto) % Eos % (Auto) % Baso % (Auto) % Neut # (Auto) (1.4-6.5) K/uL Lymph # (Auto) (1.2-3.4) K/uL [place] # (Auto) (0.11-0.59) K/uL Eos # (Auto) (0-0.5) K/uL Baso # (Auto) (0-0.2) K/uL Immature Gran # (Auto) (0.00-0.02) K/uL RBC Morphology Sodium 129 L (136-145) mmol/L Potassium (3.5-5.1) mmol/L Chloride (98-107) mmol/L Carbon Dioxide (21-32) mmol/L Anion Gap (3-11) BUN (6-23) mg/dl Creatinine (0.6-1.2) mg/dl Est Cr Clr Drug Dosing ml/min Est GFR ( Amer) ml/min Est GFR (Non-Af Amer) ml/min BUN/Creatinine Ratio (10-20) Glucose (70-99(Fasting)) mg/dl Osmolality 284 (280-300) mOsm/kg Calcium (8.5-10.1) mg/dl Phosphorus (2.5-4.9) mg/dl Magnesium (1.7-2.4) mg/dl 25-OH Vitamin D Total (30-100) ng/ml Blood Type A Negative Antibody Screen NEGATIVE Crossmatch See Detail Medications Administered Current Inpatient Medications Acetaminophen (Acetaminophen 500 Mg Tab) 1,000 mg PO Q8 [facility] Stop: 03/04/22 21:59 Last Admin: 02/05/22 05:00 Dose: 1,000 mg Documented by: Amlodipine Besylate (Amlodipine Besylate 5 Mg Tab) 5 mg PO QAM [facility] Stop: 03/05/22 08:59 Last Admin: 02/03/22 11:18 Dose: 5 mg Documented by: Aspirin (Aspirin 81 Mg Ectab) 81 mg PO BID [facility] Stop: 03/04/22 20:59 Last Admin: 02/04/22 20:08 Dose: 81 mg Documented by: Bisacodyl (Bisacodyl 10 Mg Supp) 10 mg [place] DAILY PRN PRN Reason: Constipation Stop: 03/04/22 19:42 Ciprofloxacin (Ciprofloxacin 500 Mg Tab) 500 mg PO BID [facility] Stop: 02/07/22 20:59 Last Admin: 02/04/22 20:08 Dose: 500 mg Documented by: Citalopram Hydrobromide (Citalopram 20 Mg Tab) 10 mg PO QAM [facility] Stop: 03/05/22 08:59 Last Admin: 02/03/22 11:18 Dose: 10 mg Documented by: Enoxaparin Sodium (Enoxaparin Inj 40 Mg/0.4 Ml Syr) 40 mg SQ Q24H [facility] Stop: 03/06/22 12:44 Last Admin: 02/04/22 12:40 Dose: 40 mg Documented by: Sodium Chloride (Nss) 250 mls @ 15 mls/hr IV .[id number] PRN PRN Reason: For Transfusion Stop: 02/05/22 17:31 Levalbuterol HCl (Levalbuterol Hcl 0.63 Mg/3 Ml Neb) 0.63 mg NEB Q4H PRN; Protocol PRN Reason: Shortness Of Breath Or Wheezing Stop: 03/06/22 19:29 Last Admin: 02/05/22 03:21 Dose: 0.63 mg Documented by: Lidocaine (Lidocaine 5% 1 Patch) 1 patch TD QAM [facility] Stop: 03/05/22 11:59 Last Admin: 02/04/22 11:58 Dose: Not Given Documented by: Loratadine (Loratadine 10 Mg Tab) 10 mg PO QAM [facility] Stop: 03/05/22 08:59 Last Admin: 02/04/22 12:00 Dose: Not Given Documented by: Magnesium Hydroxide (Magnesium Hydroxide Susp 30 Ml Udc) 30 ml PO Q12H PRN PRN Reason: Constipation Stop: 03/04/22 19:42 Miscellaneous (Remove Lidoderm Patch) 1 ea N/A DAILY@2100 [facility] Stop: 03/05/22 22:59 Last Admin: 02/04/22 22:41 Dose: Not Given Documented by: Naloxone HCl (Naloxone Hcl 0.4 Mg/1 Ml Vial/Carp) 0.1 mg IV UD PRN PRN Reason: Opiate Overdose Stop: 03/04/22 19:42 Ondansetron HCl (Ondansetron Inj 2 Mg/Ml 2 Ml Vial) 4 mg IV Q6H PRN PRN Reason: Nausea Stop: 03/04/22 19:42 Polyethylene Glycol (Polyethylene (Miralax) 17 Gm Pack) 17 gm PO DAILY PRN PRN Reason: Constipation Stop: 03/04/22 19:42 Senna/Docusate Sodium (Docusate Sodium/Senna 50/8.6mg Tab) 2 tab PO HS [facility] Stop: 03/04/22 20:59 Last Admin: 02/04/22 20:13 Dose: 2 tab Documented by: Sodium Chloride (Sodium Chloride 1 Gm Tablet) 1 gm PO TID [facility] Stop: 03/06/22 13:59 Last Admin: 02/04/22 20:08 Dose: 1 gm Documented by: Urea (Urea (Urea-Na) 15 Gm Pack) 15 gm PO BID [facility] Stop: 03/06/22 08:59 Last Admin: 02/04/22 20:07 Dose: 15 gm Documented by: Vitamin D (Cholecalciferol 1,000 Units 25 Mcg Tab) 1,000 units PO QAM [facility] Stop: 03/05/22 08:59 Last Admin: 02/04/22 11:59 Dose: Not Given Documented by: (1) Closed intertrochanteric fracture of left hip Encounter type: initial encounter Fracture alignment: displaced Qualified Code(s): S72.142A - Displaced intertrochanteric fracture of left femur, initial encounter for closed fracture
[2022-02-05 07:49] LABS: BUN Creatinine Ratio 51.5 (10-20); Calcium 9.2 mg/dl (8.5-10.1); Est GFR (African American) 94.7 ml/min; Est GFR (Non-African American) 81.7 ml/min; Magnesium 1.9 mg/dl (1.7-2.4); Phosphorus 2.9 mg/dl (2.5-4.9); Potassium 4.7 mmol/L (3.5-5.1)
[2022-02-05 08:11] LABS: Immature Granulocytes # (auto) 0.04 K/uL (0.00-0.02); Immature Granulocytes % (auto) 0.3 %; Lymphocytes # (auto) 0.67 K/uL (1.2-3.4); Lymphocytes % (auto) 5.5 %; Monocytes # (auto) 1.78 K/uL (0.11-0.59); Monocytes % (auto) 14.6 %; Neutrophils # (auto) 9.73 K/uL (1.4-6.5); Neutrophils % (auto) 79.6 %; RBC Morphology Unremarkable
[2022-02-05] MEDS: SODIUM CHLORIDE 1 GM TABLET PO SCH ×3 (08:51→20:00)
[2022-02-05] MEDS: CIPROFLOXACIN 500 MG TAB PO SCH ×2 (08:51→20:00)
[2022-02-05] MEDS: LORATADINE 10 MG TAB PO SCH (08:51)
[2022-02-05] MEDS: LIDOCAINE 5% 1 PATCH TD SCH (08:52)
[2022-02-05] MEDS: CHOLECALCIFEROL 1,000 UNITS 25 MCG TAB PO SCH (08:52)
[2022-02-05] MEDS: UREA (UREA-NA) 15 GM PACK PO SCH ×2 (08:52→20:01)
[2022-02-05] MEDS: ASPIRIN 81 MG ECTAB PO SCH (08:52)
[2022-02-05] MEDS: MoRPHine SULFATE 4 MG/ML 1 ML CARP\\VIAL IV PRN ×3 (09:58→23:50)
--- NOTE | 2022-02-05 10:27 | Nephrology Progress Note ---
Date of Service February 05, 2022 Assessment & Plan Admission and Anticipated Discharge Date Admission Date: February 02, 2022 Subjective Assessment & Plan 81/F with Acute fall and fracture and has LowNa+ (1) Acute hyponatremia: Patient with hyponatremia likely due to syndrome of inappropriate ADH with Low Solute diet. Continue urea 15 g twice daily -Okay to monitor sodium daily -Fluid restriction of 1.2 L daily -Salt tablets 1 g 3 times daily for one more day S---hard to get history. C/o Diffuse pain. Getting PRBC. Physical Exam Physical Exam: General exam: Appears comfortable, no acute distress HEENT: Pupils are equal and reactive to light Neck: No JVD, neck is supple trachea is midline Respiratory system: Clear breath sounds bilaterally. Gastrointestinal: Abdomen is soft, non distended, non tender, bowel sounds are present CVS: Regular rate and rhythm. No murmurs, rubs or gallops Musculoskeletal: No joint or muscle tenderness Extremities: Left thigh is swollen and tender Neuro: Oriented, no tremors, no focal neurological deficits Skin: No rashes Results & Data ([facility]) Vital Signs (Past 12 Hours) Vital Signs Temp Pulse Pulse Resp BP BP Pulse Ox 02/05/22 10:10 37.2 C 92 H 18 116/59 L 96 02/05/22 09:40 37.3 C 93 H 18 121/63 99 02/05/22 09:01 36.7 C 92 H 18 114/67 97 02/05/22 07:23 82 02/05/22 06:10 36.7 C 96 H 20 103/54 L 96 02/05/22 03:57 36.7 C 98 H 18 130/70 98 02/05/22 03:29 98 02/05/22 03:22 93 H 20 92 02/05/22 03:02 36.9 C 90 18 93/58 L 98 02/05/22 03:00 02/05/22 00:21 84 02/04/22 23:06 36.9 C 79 16 87/54 L 98 02/04/22 23:00 Pulse Ox 02/05/22 10:10 02/05/22 09:40 02/05/22 09:01 02/05/22 07:23 02/05/22 06:10 02/05/22 03:57 02/05/22 03:29 02/05/22 03:22 02/05/22 03:02 02/05/22 03:00 98 02/05/22 00:21 02/04/22 23:06 02/04/22 23:00 99
[2022-02-05] MEDS ORDERED: ERGOCALCIFEROL 50,000 UNITS 1250 MCG CAP PO ONE (11:00)
--- NOTE | 2022-02-05 11:07 | Orthopedic Progress Note ---
Date of Service February 05, 2022 Assessment & Plan (1) Closed intertrochanteric fracture of left hip: Unfortunately she is having a lot of pain in her left hip. She seems a little bit anxious and confused as well. We will continue oral pain medications as needed. She is on Lovenox 40 mg daily for DVT prophylaxis. She can be weightbearing as tolerated with therapy. She is orthopedically stable for discharge when medically ready. We will likely change her dressing tomorrow. Full orthopedic discharge instructions were placed in the discharge summary. Subjective Analy was seen and examined at bedside today. Unfortunately having a lot of soreness in the left hip. It hurts with any motion. She has not been out of bed yet. She had no acute events overnight. Review of Systems All systems reviewed & are unremarkable except as noted in HPI & below. Physical Exam On physical examination of the left hip, the dressing is mostly clean and dry. Her leg lengths seem equal. She is unable to cooperate with neurologic exam. Results & Data Results & Data Laboratory Results . Diagnostic Findings Postoperative x-rays of the left hip show the prosthesis to be in good alignment. PG Care Time/CCT Total # of Minutes Spent Total Time Spent with Patient: Total time spent is greater than 50% in coordination of care (as documented) at patient's floor/unit and/or counseling patient: Coding Level of Care Code 45446 Post Operative Follow-Up Diagnoses Closed intertrochanteric fracture of left hip S72.142A Encounter type: initial encounter Fracture alignment: displaced (1) Closed intertrochanteric fracture of left hip Encounter type: initial encounter Fracture alignment: displaced Qualified Code(s): S72.142A - Displaced intertrochanteric fracture of left femur, initial encounter for closed fracture
[2022-02-05 17:28] LABS: Hematocrit (blood only) 26.8 % (37-47); Hemoglobin 8.7 g/dL (12.0-16.0)
[2022-02-05] MEDS: ENOXAPARIN INJ 40 MG/0.4 ML SYR SQ SCH (19:59)
[2022-02-05] MEDS: DOCUSATE SODIUM/SENNA 50/8.6MG TAB PO SCH (20:02)
[2022-02-06] MEDS: MoRPHine SULFATE 4 MG/ML 1 ML CARP\\VIAL IV PRN ×3 (03:17→20:47)
[2022-02-06] MEDS: ACETAMINOPHEN 500 MG TAB PO SCH ×3 (05:39→20:45)
--- NOTE | 2022-02-06 06:31 | Orthopedic Progress Note ---
Date of Service February 06, 2022 Assessment & Plan (1) Closed intertrochanteric fracture of left hip: Her hip seems to be doing okay. The nursing staff can change the dressing today. Her H&H has rebounded since a blood transfusion. She is on Lovenox 40 mg subcu daily for DVT prophylaxis. Case management is working on transferring her to [facility]. She is orthopedically stable for discharge when medically ready. Full orthopedic discharge instructions were placed in the discharge summary. If you have any questions please feel free to [place] text me or contact me personally on my cell phone at [phone]. Subjective Analy was seen and examined at bedside this morning. She was very sleepy when I entered the room. She said she still had some soreness in the left hip. She was not able to ambulate with physical therapy yesterday. She did receive blood transfusion yesterday. She had no acute events overnight. Review of Systems All systems reviewed & are unremarkable except as noted in HPI & below. Physical Exam On physical examination of the left hip, the dressing is clean and dry. Her leg lengths are equal. I did not do any range of motion testing with her hip. Results & Data Results & Data Laboratory Results . Diagnostic Findings . PG Care Time/CCT Total # of Minutes Spent Total Time Spent with Patient: Total time spent is greater than 50% in coordination of care (as documented) at patient's floor/unit and/or counseling patient: Coding Level of Care Code 77840 Post Operative Follow-Up Diagnoses Closed intertrochanteric fracture of left hip S72.142A Encounter type: initial encounter Fracture alignment: displaced (1) Closed intertrochanteric fracture of left hip Encounter type: initial encounter Fracture alignment: displaced Qualified Code(s): S72.142A - Displaced intertrochanteric fracture of left femur, initial encounter for closed fracture
[2022-02-06 07:46] LABS: Hematocrit (blood only) 24.9 % (37-47); Hemoglobin 7.8 g/dL (12.0-16.0); Mean Corpuscular Hemoglobin 28.1 pg (25-34); Mean Corpuscular Hgb Conc 31.3 g/dL (32-36); Mean Corpuscular Volume 89.6 fL (80-100); Mean Platelet Volume 8.7 fL (7.4-10.4); Nucleated RBC # (auto) 0.04 K/uL (0-0); Nucleated RBC % (auto) 0.4 %; Platelet Count 409 K/uL (130-400); RDW Coefficient of Variation 14.1 % (11.5-14.5); RDW Standard Deviation 46.7 fL (36.4-46.3); Red Blood Count 2.78 M/uL (4.2-5.4); White Blood Count 10.26 K/uL (4.8-10.8)
[2022-02-06] MEDS: SODIUM CHLORIDE 1 GM TABLET PO SCH ×2 (08:25→20:46)
[2022-02-06] MEDS: CHOLECALCIFEROL 1,000 UNITS 25 MCG TAB PO SCH (08:25)
[2022-02-06] MEDS: CIPROFLOXACIN 500 MG TAB PO SCH (08:26)
[2022-02-06] MEDS: LIDOCAINE 5% 1 PATCH TD SCH (08:26)
[2022-02-06] MEDS: LORATADINE 10 MG TAB PO SCH (08:26)
[2022-02-06] MEDS: UREA (UREA-NA) 15 GM PACK PO SCH (08:27)
[2022-02-06 09:14] LABS: BUN Creatinine Ratio 40.4 (10-20); Creatinine Clr Calc Pharmacy 76.6 ml/min; Est GFR (African American) 105.9 ml/min; Est GFR (Non-African American) 91.3 ml/min; Magnesium 1.8 mg/dl (1.7-2.4); Phosphorus 1.6 mg/dl (2.5-4.9); Potassium 4.2 mmol/L (3.5-5.1)
[2022-02-06] MEDS ORDERED: SODIUM PHOSPHATE 3 MMOL/1 ML INFUSION IV STA (09:23)
--- NOTE | 2022-02-06 09:26 | Nephrology Progress Note ---
Date of Service February 06, 2022 Assessment & Plan Admission and Anticipated Discharge Date Admission Date: February 02, 2022 Subjective Subjective Assessment & Plan 81/F with Acute fall and fracture and has LowNa+ (1) Acute hyponatremia: Patient with hyponatremia due to syndrome of inappropriate ADH with Low Solute diet. na now 134. Will stop Urea-Na now. Lower salt tab to 1 gm bid. If Na > 130 tomorrow can stop totally. -Okay to monitor sodium daily -Fluid restriction of 1.2 L daily S---hard to get history. C/o Diffuse pain. Physical Exam Physical Exam: General exam: Appears comfortable, no acute distress HEENT: Pupils are equal and reactive to light Neck: No JVD, neck is supple trachea is midline Respiratory system: Clear breath sounds bilaterally. Gastrointestinal: Abdomen is soft, non distended, non tender, bowel sounds are present CVS: Regular rate and rhythm. No murmurs, rubs or gallops Musculoskeletal: No joint or muscle tenderness Extremities: Left thigh is swollen and tender Neuro: Oriented, no tremors, no focal neurological deficits Skin: No rashes Results & Data ([facility]) Vital Signs (Past 12 Hours) Vital Signs Temp Pulse Pulse Resp BP Pulse Ox Pulse Ox 02/06/22 07:34 96 H 02/06/22 06:54 37.0 C 91 H 20 135/74 94 02/06/22 04:01 36.7 C 101 H 20 122/70 95 02/06/22 03:00 95 02/05/22 23:00 36.9 C 93 H 20 135/74 94 94
[2022-02-06] MEDS ORDERED: SODIUM PHOSPHATE 21 MMOL in SODIUM CHLORIDE 0.9% 500 ML IV ONE (10:00)
[2022-02-06] MEDS: SACCHAROMYCES BOULARDII 250 MG CAP PO SCH ×2 (10:21→20:46)
[2022-02-06 11:31] LABS: Hematocrit (blood only) 25.4 % (37-47); Hemoglobin 8.1 g/dL (12.0-16.0); Mean Corpuscular Hemoglobin 28.5 pg (25-34); Mean Corpuscular Hgb Conc 31.9 g/dL (32-36); Mean Corpuscular Volume 89.4 fL (80-100); Mean Platelet Volume 8.7 fL (7.4-10.4); Nucleated RBC # (auto) 0.02 K/uL (0-0); Nucleated RBC % (auto) 0.2 %; Platelet Count 397 K/uL (130-400); RDW Coefficient of Variation 14.1 % (11.5-14.5); Red Blood Count 2.84 M/uL (4.2-5.4); White Blood Count 10.72 K/uL (4.8-10.8)
--- NOTE | 2022-02-06 18:28 | Hospitalist Progress Note ---
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 Patient and patient's daughter requested [facility]. Reached out to [facility]. Dr. Aguilar is away. [place] [facility] is on-call. Spoke to Dr Kc Now s/p Intramedullary Nail Fixation Left Hip(Left) - Kevan Kc, DO Courtney catheter placed--will discontinue PT/OT recommends SNF Acute blood loss anemia/postop anemia -Partially dilutional, after IVF - Pre-op Hemoglobin about 8, currently 6.7 -s/p 1 unit of PRBCs 5/2 -H&H stable -1 episode of BRBPR per nursing, however stool specimen was not sent. Repeat H/H after this episode was stable. Holding lovenox for now. 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 Started Urea and Sodium tablets Vitamin D deficiency -continue supplement Possible UTI -Recent Sx, UA normal. Already finished 4 days of ciprofloxacin. 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 Lovenox held for now Disposition -[facility] when bed is available Admission and Anticipated Discharge Date Admission Date: February 02, 2022 Subjective Per nursing, patient had BRBPR today (they did not save the pad). Patient herself reports feeling unwell because she can't open her eyes. but denies abdominal pain. Poor historian overall Physical Exam Physical Exam: appears weak, debilitated, frail Eyes: chronic spencer's palsy (left eyelid droop) Respiratory: breathing comfortably on room air Cardiovascular: regular rate and rhythm, no murmurs/rubs/gallops Gastrointestinal (Abdomen): soft, non tender Musculoskeletal: no edema Genitourinary: courtney catheter still in place Results & Data Results & Data ([facility]) Vital Signs (Past 12 Hours) Vital Signs Temp Pulse Pulse Resp BP BP Pulse Ox 02/06/22 15:14 121 H 02/06/22 15:09 36.8 C 115 H 20 153/70 H 94 02/06/22 10:58 36.8 C 96 H 20 124/76 95 02/06/22 07:34 96 H 02/06/22 06:54 37.0 C 91 H 20 135/74 94 Laboratory Results Short CBC 02/06/22 02/06/22 Range/Units 06:46 10:52 WBC 10.26 10.72 (4.8-10.8) K/uL Hgb 7.8 L 8.1 L (12.0-16.0) g/dL Hct 24.9 L 25.4 L (37-47) % Plt Count 409 H 397 (130-400) K/uL [facility] 02/06/22 06:46 Sodium 134 L Potassium 4.2 Chloride 101 Carbon Dioxide 30 BUN 19 Creatinine 0.47 L Glucose 94 Calcium 9.0 Medications Administered Short CBC 02/06/22 02/06/22 Range/Units 06:46 10:52 WBC 10.26 10.72 (4.8-10.8) K/uL Hgb 7.8 L 8.1 L (12.0-16.0) g/dL Hct 24.9 L 25.4 L (37-47) % Plt Count 409 H 397 (130-400) K/uL [facility] 02/06/22 06:46 Sodium 134 L Potassium 4.2 Chloride 101 Carbon Dioxide 30 BUN 19 Creatinine 0.47 L Glucose 94 Calcium 9.0 (1) Closed intertrochanteric fracture of left hip Encounter type: initial encounter Fracture alignment: displaced Qualified Code(s): S72.142A - Displaced intertrochanteric fracture of left femur, initial encounter for closed fracture
[2022-02-06] MEDS: DOCUSATE SODIUM/SENNA 50/8.6MG TAB PO SCH (20:48)
[2022-02-07] MEDS: MoRPHine SULFATE 4 MG/ML 1 ML CARP\\VIAL IV PRN ×2 (00:34→06:05)
[2022-02-07] MEDS: ONDANSETRON INJ 2 MG/ML 2 ML VIAL IV PRN ×2 (00:37→10:46)
[2022-02-07] MEDS: ACETAMINOPHEN 500 MG TAB PO SCH ×3 (06:01→21:14)
[2022-02-07 06:51] LABS: Hematocrit (blood only) 26.8 % (37-47); Hemoglobin 8.6 g/dL (12.0-16.0); Mean Corpuscular Hemoglobin 28.4 pg (25-34); Mean Corpuscular Hgb Conc 32.1 g/dL (32-36); Mean Corpuscular Volume 88.4 fL (80-100); Mean Platelet Volume 8.4 fL (7.4-10.4); Platelet Count 422 K/uL (130-400); RDW Coefficient of Variation 14.3 % (11.5-14.5); RDW Standard Deviation 46.7 fL (36.4-46.3); Red Blood Count 3.03 M/uL (4.2-5.4); White Blood Count 10.53 K/uL (4.8-10.8)
[2022-02-07 07:11] LABS: Calcium 8.9 mg/dl (8.5-10.1); Creatinine Clr Calc Pharmacy 98.2 ml/min; Est GFR (African American) 114.5 ml/min; Est GFR (Non-African American) 98.8 ml/min; Potassium 3.6 mmol/L (3.5-5.1)
--- NOTE | 2022-02-07 09:13 | Nephrology Progress Note ---
Date of Service February 07, 2022 Assessment & Plan Admission and Anticipated Discharge Date Admission Date: February 02, 2022 Subjective Assessment & Plan 81/F with Acute fall and fracture and has LowNa+ (1) Acute hyponatremia: Patient with hyponatremia due to syndrome of inappropriate ADH with Low Solute diet. na now 130-134 last few days. Will stop Urea-Na now. Lower salt tab to 1 gm daily--for d/c also. -Fluid restriction of 1.2 L daily Protein Supplement Sign off . Call if any issues S---hard to get history. C/o Diffuse pain. Physical Exam Physical Exam: General exam: Appears comfortable, no acute distress HEENT: Pupils are equal and reactive to light Neck: No JVD, neck is supple trachea is midline Respiratory system: Clear breath sounds bilaterally. Gastrointestinal: Abdomen is soft, non distended, non tender, bowel sounds are present CVS: Regular rate and rhythm. No murmurs, rubs or gallops Musculoskeletal: No joint or muscle tenderness Extremities: Left thigh is swollen and tender Neuro: Oriented, no tremors, no focal neurological deficits Skin: No rashes Results & Data ([facility]) Vital Signs (Past 12 Hours) Vital Signs Temp Pulse Pulse Resp BP Pulse Ox 02/07/22 06:55 37.1 C 82 20 122/70 96 02/07/22 03:20 36.8 C 84 20 134/76 97 02/06/22 23:47 93 H 02/06/22 23:00 37.0 C 91 H 20 136/72 96
[2022-02-07] MEDS: oxyCODONE HCL IR 5 MG TAB (IMMEDIATE RELEASE) PO PRN ×2 (09:59→16:19)
[2022-02-07] MEDS: CHOLECALCIFEROL 1,000 UNITS 25 MCG TAB PO SCH (10:00)
[2022-02-07] MEDS: SACCHAROMYCES BOULARDII 250 MG CAP PO SCH ×2 (10:01→21:01)
[2022-02-07] MEDS: SODIUM CHLORIDE 1 GM TABLET PO SCH (10:01)
[2022-02-07] MEDS: LIDOCAINE 5% 1 PATCH TD SCH (10:01)
[2022-02-07] MEDS: LORATADINE 10 MG TAB PO SCH (10:01)
[2022-02-07] MEDS: GABAPENTIN 100 MG CAP PO SCH ×2 (12:20→21:00)
[2022-02-07] MEDS: POT PHOSPHATE MONOBASIC W/ SOD TAB PO SCH ×4 (12:21→21:01)
--- NOTE | 2022-02-07 13:23 | Hospitalist Progress Note ---
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 D/c IV morphine, start PRN oxycodone (patient with listed allergy to Tramadol) Now s/p Intramedullary Nail Fixation Left Hip(Left) - 02/04/22-- Kevan Kc, DO Will discontinue courtney PT/OT recommends SNF Acute blood loss anemia/postop anemia -Partially dilutional, after IVF - Pre-op Hemoglobin about 8-->6.7 -s/p 1 unit of PRBCs 02/05 -H&H stable -1 episode of BRBPR per nursing 02/06, however stool specimen was not sent. No further episodes noted. 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 Started Urea and Sodium tablets Vitamin D deficiency -continue supplement Possible UTI -Recent Sx, UA normal. Already finished 4 days of ciprofloxacin. D/c Further antibiotics 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 Dementia Monitor for delirium Reorient frequently Pt's daughter, Jo-Ann Lee [phone] if needed DVT Prophylaxis SCDs. Lovenox Disposition -[facility] when bed is available Admission and Anticipated Discharge Date Admission Date: February 02, 2022 Subjective Patient very poor historian Reports "I feel terrible" but denies much left hip pain, denies chest pain, shortness of breath Later when pressed for details, admits to "feel sick to my stomach" Physical Exam Physical Exam: Thin, frail, appears uncomfortable but non toxic Respiratory: breathing comfortable, clear to auscultation, no wheezing/rhonchi/rales Cardiovascular: regular rate and rhythm, no murmurs/rubs/gallops Gastrointestinal (Abdomen): soft, non distended, no rebound or guarding Musculoskeletal: No edema Skin: Incision site is clean/dry/intact Neurologic: awake, AAO x 0, poor historian, chronic left Spencer's Palsy Results & Data Results & Data ([facility]) Vital Signs (Past 12 Hours) Vital Signs Temp Pulse Resp BP Pulse Ox 02/07/22 12:00 36.6 C 98 H 14 156/73 H 94 02/07/22 06:55 37.1 C 82 20 122/70 96 02/07/22 03:20 36.8 C 84 20 134/76 97 Laboratory Results Short CBC 02/07/22 Range/Units 06:11 WBC 10.53 (4.8-10.8) K/uL Hgb 8.6 L (12.0-16.0) g/dL Hct 26.8 L (37-47) % Plt Count 422 H (130-400) K/uL BMP 02/07/22 06:11 Sodium 133 L Potassium 3.6 Chloride 99 Carbon Dioxide 30 BUN 10 Creatinine 0.37 L Glucose 97 Calcium 8.9 Medications Administered Current Inpatient Medications Acetaminophen (Acetaminophen 500 Mg Tab) 1,000 mg PO Q8 [facility] Stop: 03/04/22 21:59 Last Admin: 02/07/22 06:01 Dose: 1,000 mg Documented by: Amlodipine Besylate (Amlodipine Besylate 5 Mg Tab) 5 mg PO QAM [facility] Stop: 03/05/22 08:59 Last Admin: 02/03/22 11:18 Dose: 5 mg Documented by: Bisacodyl (Bisacodyl 10 Mg Supp) 10 mg VT DAILY PRN PRN Reason: Constipation Stop: 03/04/22 19:42 Citalopram Hydrobromide (Citalopram 20 Mg Tab) 10 mg PO QAM [facility] Stop: 03/05/22 08:59 Last Admin: 02/03/22 11:18 Dose: 10 mg Documented by: Enoxaparin Sodium (Enoxaparin Inj 40 Mg/0.4 Ml Syr) 40 mg SQ Q24H [facility] Stop: 03/06/22 12:44 Last Admin: 02/05/22 19:59 Dose: 40 mg Documented by: Famotidine (Famotidine 20 Mg Tab) 20 mg PO BID [facility] Stop: 03/09/22 20:59 Gabapentin (Gabapentin 100 Mg Cap) 100 mg PO BID [facility] Stop: 03/09/22 09:14 Last Admin: 02/07/22 12:20 Dose: 100 mg Documented by: Levalbuterol HCl (Levalbuterol Hcl 0.63 Mg/3 Ml Neb) 0.63 mg NEB Q4H PRN; Protocol PRN Reason: Shortness Of Breath Or Wheezing Stop: 03/06/22 19:29 Last Admin: 02/05/22 03:21 Dose: 0.63 mg Documented by: Lidocaine (Lidocaine 5% 1 Patch) 1 patch TD [facility] Stop: 03/05/22 11:59 Last Admin: 02/07/22 10:01 Dose: 1 patch Documented by: Loratadine (Loratadine 10 Mg Tab) 10 mg PO QAM [facility] Stop: 03/05/22 08:59 Last Admin: 02/07/22 10:01 Dose: 10 mg Documented by: Magnesium Hydroxide (Magnesium Hydroxide Susp 30 Ml Udc) 30 ml PO Q12H PRN PRN Reason: Constipation Stop: 03/04/22 19:42 Miscellaneous (Remove Lidoderm Patch) 1 ea N/A DAILY@2100 [facility] Stop: 03/05/22 22:59 Last Admin: 02/06/22 20:46 Dose: 1 ea Documented by: Naloxone HCl (Naloxone Hcl 0.4 Mg/1 Ml Vial/Carp) 0.1 mg IV UD PRN PRN Reason: Opiate Overdose Stop: 03/04/22 19:42 Ondansetron HCl (Ondansetron Inj 2 Mg/Ml 2 Ml Vial) 4 mg IV Q6H PRN PRN Reason: Nausea Stop: 03/04/22 19:42 Last Admin: 02/07/22 10:46 Dose: 4 mg Documented by: Oxycodone HCl (Oxycodone Hcl Ir 5 Mg Tab (Immediate Release)) 5 mg PO Q6H PRN PRN Reason: Pain Stop: 02/21/22 09:15 Last Admin: 02/07/22 09:59 Dose: 5 mg Documented by: Polyethylene Glycol (Polyethylene (Miralax) 17 Gm Pack) 17 gm PO DAILY PRN PRN Reason: Constipation Stop: 03/04/22 19:42 Potassium Phosphate (Pot Phosphate Monobasic W/ Sod Tab) 1 tab PO QID [facility] Stop: 02/09/22 08:59 Last Admin: 02/07/22 12:21 Dose: 1 tab Documented by: Saccharomyces Boulardii (Saccharomyces Boulardii 250 Mg Cap) 250 mg PO BID [facility] Stop: 02/13/22 08:59 Last Admin: 02/07/22 10:01 Dose: 250 mg Documented by: Senna/Docusate Sodium (Docusate Sodium/Senna 50/8.6mg Tab) 2 tab PO HS [facility] Stop: 03/04/22 20:59 Last Admin: 02/06/22 20:48 Dose: 2 tab Documented by: Sodium Chloride (Sodium Chloride 1 Gm Tablet) 1 gm PO DAILY [facility] Stop: 03/10/22 08:59 Vitamin D (Cholecalciferol 1,000 Units 25 Mcg Tab) 1,000 units PO QAM [facility] Stop: 03/05/22 08:59 Last Admin: 02/07/22 10:00 Dose: 1,000 units Documented by: (1) Closed intertrochanteric fracture of left hip Encounter type: initial encounter Fracture alignment: displaced Qualified Code(s): S72.142A - Displaced intertrochanteric fracture of left femur, initial encounter for closed fracture
[2022-02-07] MEDS: FAMOTIDINE 20 MG TAB PO SCH (21:00)
[2022-02-07] MEDS: ENOXAPARIN INJ 40 MG/0.4 ML SYR SQ SCH (21:04)
[2022-02-07] MEDS: DOCUSATE SODIUM/SENNA 50/8.6MG TAB PO SCH (21:04)
[2022-02-07] MEDS ORDERED: MoRPHine SULFATE 2 MG/ML CARP IV STA (22:41)
[2022-02-08] MEDS: oxyCODONE HCL IR 5 MG TAB (IMMEDIATE RELEASE) PO PRN (03:32)
[2022-02-08] MEDS: ACETAMINOPHEN 500 MG TAB PO SCH ×3 (06:10→20:55)
[2022-02-08 07:14] LABS: BUN Creatinine Ratio 22.2 (10-20); Calcium 8.8 mg/dl (8.5-10.1); Creatinine Clr Calc Pharmacy 101.5 ml/min; Est GFR (African American) 115.6 ml/min; Est GFR (Non-African American) 99.7 ml/min; Potassium 3.6 mmol/L (3.5-5.1)
[2022-02-08 07:25] LABS: Hematocrit (blood only) 27.1 % (37-47); Hemoglobin 8.6 g/dL (12.0-16.0); Mean Corpuscular Hgb Conc 31.7 g/dL (32-36); Mean Corpuscular Volume 88.3 fL (80-100); Mean Platelet Volume 8.6 fL (7.4-10.4); Platelet Count 460 K/uL (130-400); RDW Coefficient of Variation 14.4 % (11.5-14.5); Red Blood Count 3.07 M/uL (4.2-5.4); White Blood Count 9.41 K/uL (4.8-10.8)
[2022-02-08] MEDS ORDERED: SODIUM CHLORIDE 1 GM TABLET PO SCH (09:00)
--- NOTE | 2022-02-08 09:54 | Nephrology Progress Note ---
Date of Service February 08, 2022 Assessment & Plan Admission and Anticipated Discharge Date Admission Date: February 02, 2022 Subjective 81/F with Acute fall and fracture and has LowNa+ (1) Acute hyponatremia: Patient with hyponatremia due to syndrome of inappropriate ADH with Low Solute diet. na now 130-134 last few days. Will stop Urea-Na now. given na remains about same will stop Salt tab totally and follow. -Fluid restriction of 1.2 L daily Protein Supplement S---hard to get history. C/o Diffuse pain. Physical Exam Physical Exam: General exam: Appears comfortable, no acute distress HEENT: Pupils are equal and reactive to light Neck: No JVD, neck is supple trachea is midline Respiratory system: Clear breath sounds bilaterally. Gastrointestinal: Abdomen is soft, non distended, non tender, bowel sounds are present CVS: Regular rate and rhythm. No murmurs, rubs or gallops Musculoskeletal: No joint or muscle tenderness Extremities: Left thigh is swollen and tender Neuro: Oriented, no tremors, no focal neurological deficits Skin: No rashes Results & Data ([facility]) Vital Signs (Past 12 Hours) Vital Signs Temp Pulse Pulse Resp BP BP Pulse Ox 02/08/22 08:36 36.7 C 104 H 16 155/85 H 94 02/08/22 03:53 36.6 C 111 H 18 142/72 H 93 02/08/22 00:00 102 H 02/07/22 23:36 36.7 C 97 H 18 146/79 H 93
[2022-02-08] MEDS: CHOLECALCIFEROL 1,000 UNITS 25 MCG TAB PO SCH (10:06)
[2022-02-08] MEDS: FAMOTIDINE 20 MG TAB PO SCH ×2 (10:37→20:57)
[2022-02-08] MEDS: LORATADINE 10 MG TAB PO SCH (10:38)
[2022-02-08] MEDS: SACCHAROMYCES BOULARDII 250 MG CAP PO SCH ×2 (10:38→20:56)
[2022-02-08] MEDS: POT PHOSPHATE MONOBASIC W/ SOD TAB PO SCH ×4 (10:38→20:56)
[2022-02-08] MEDS: GABAPENTIN 100 MG CAP PO SCH ×2 (10:38→20:57)
[2022-02-08] MEDS: LIDOCAINE 5% 1 PATCH TD SCH (11:53)
--- NOTE | 2022-02-08 15:32 | Hospitalist Progress Note ---
Date of Service February 08, 2022 Assessment & Plan (1) Closed intertrochanteric fracture of left hip: Plan: 81 yo female with PMH Razo's palsy with residual left-sided facial droop, dementia, HTN, osteoporosis, hyperparathyroidism, who presents with left hip fracture and hyponatremia Acute intertrochanteric fracture of the left proximal femur Scheduled Tylenol, start gabapentin 100mg BID, continue lidoderm patch. D/c IV morphine, start PRN oxycodone (patient with listed allergy to Tramadol) Now s/p Intramedullary Nail Fixation Left Hip(Left) - 02/04/22-- DO sherwin Chavis discontinued 02/07 PT/OT recommends SNF Acute blood loss anemia/postop anemia -Partially dilutional, after IVF - Pre-op Hemoglobin about 8-->6.7 -s/p 1 unit of PRBCs 02/05 -H&H stable -1 episode of BRBPR per nursing 02/06, however stool specimen was not sent. No further episodes noted. 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 Started Urea and Sodium tablets Vitamin D deficiency -continue supplement Possible UTI -Recent Sx, UA normal. finished 4 days of ciprofloxacin. HTN Continue amlodipine Hyperparathyroidism Previously followed endocrinology Stable, follows PCP Razo's palsy Chronic left-sided facial droop with mild left ptosis Dementia Monitor for delirium Reorient frequently Pt's daughter, Jo-Ann Lee [phone] if needed DVT Prophylaxis SCDs. Lovenox Patient is medically stable for discharge to SNF when bed is available. Admission and Anticipated Discharge Date Admission Date: February 02, 2022 Subjective "I feel well today, thank you" Denies pain, shortness of breath, nausea or any complaints currently Physical Exam Physical Exam: Pleasant, comfortable, no acute distress Respiratory: breathing comfortable, diminished at bases, no wheezing/rhonchi Cardiovascular: regular rate and rhythm, no murmur/rubs/gallops Gastrointestinal (Abdomen): soft, non tender, non distended Musculoskeletal: no edema Neurologic: awake, alert, more cooperative today, chronic left razo's palsy Results & Data Results & Data ([facility]) Vital Signs (Past 12 Hours) Vital Signs Temp Pulse Pulse Resp BP Pulse Ox 02/08/22 15:06 37.0 C 110 H 16 176/80 H 90 05/05/22 14:58 107 H 02/08/22 11:19 36.9 C 108 H 16 166/84 H 94 02/08/22 08:36 36.7 C 104 H 16 155/85 H 94 02/08/22 08:00 112 H 02/08/22 03:53 36.6 C 111 H 18 142/72 H 93 Laboratory Results Current Inpatient Medications Acetaminophen (Acetaminophen 500 Mg Tab) 1,000 mg PO Q8 [facility] Stop: 03/04/22 21:59 Last Admin: 02/08/22 13:31 Dose: 1,000 mg Documented by: Amlodipine Besylate (Amlodipine Besylate 5 Mg Tab) 2.5 mg PO QAM [facility] Stop: 03/11/22 08:59 Bisacodyl (Bisacodyl 10 Mg Supp) 10 mg MA DAILY PRN PRN Reason: Constipation Stop: 03/04/22 19:42 Citalopram Hydrobromide (Citalopram 20 Mg Tab) 10 mg PO QAM [facility] Stop: 03/05/22 08:59 Last Admin: 02/03/22 11:18 Dose: 10 mg Documented by: Enoxaparin Sodium (Enoxaparin Inj 40 Mg/0.4 Ml Syr) 40 mg SQ Q24H [facility] Stop: 03/06/22 12:44 Last Admin: 02/07/22 21:04 Dose: 40 mg Documented by: Famotidine (Famotidine 20 Mg Tab) 20 mg PO BID [facility] Stop: 03/09/22 20:59 Last Admin: 02/08/22 10:37 Dose: 20 mg Documented by: Gabapentin (Gabapentin 100 Mg Cap) 100 mg PO BID [facility] Stop: 03/09/22 09:14 Last Admin: 02/08/22 10:38 Dose: 100 mg Documented by: Levalbuterol HCl (Levalbuterol Hcl 0.63 Mg/3 Ml Neb) 0.63 mg NEB Q4H PRN; Pr otocol PRN Reason: Shortness Of Breath Or Wheezing Stop: 03/06/22 19:29 Last Admin: 02/05/22 03:21 Dose: 0.63 mg Documented by: Lidocaine (Lidocaine 5% 1 Patch) 1 patch TD QAM [facility] Stop: 03/05/22 11:59 Last Admin: 02/08/22 11:53 Dose: 1 patch Documented by: Loratadine (Loratadine 10 Mg Tab) 10 mg PO QAM [facility] Stop: 03/05/22 08:59 Last Admin: 02/08/22 10:38 Dose: 10 mg Documented by: Magnesium Hydroxide (Magnesium Hydroxide Susp 30 Ml Udc) 30 ml PO Q12H PRN PRN Reason: Constipation Stop: 03/04/22 19:42 Miscellaneous (Remove Lidoderm Patch) 1 ea N/A DAILY@2100 [facility] Stop: 03/05/22 22:59 Last Admin: 02/07/22 21:01 Dose: 1 ea Documented by: Naloxone HCl (Naloxone Hcl 0.4 Mg/1 Ml Vial/Carp) 0.1 mg IV UD PRN PRN Reason: Opiate Overdose Stop: 03/04/22 19:42 Ondansetron HCl (Ondansetron Inj 2 Mg/Ml 2 Ml Vial) 4 mg IV Q6H PRN PRN Reason: Nausea Stop: 03/04/22 19:42 Last Admin: 02/07/22 10:46 Dose: 4 mg Documented by: Oxycodone HCl (Oxycodone Hcl Ir 5 Mg Tab (Immediate Release)) 5 mg PO Q6H PRN PRN Reason: Pain Stop: 02/21/22 09:15 Last Admin: 02/08/22 03:32 Dose: 5 mg Documented by: Polyethylene Glycol (Polyethylene (Miralax) 17 Gm Pack) 17 gm PO DAILY PRN PRN Reason: Constipation Stop: 03/04/22 19:42 Potassium Phosphate (Pot Phosphate Monobasic W/ Sod Tab) 1 tab PO QID [facility] Stop: 02/09/22 08:59 Last Admin: 02/08/22 13:31 Dose: 1 tab Documented by: Saccharomyces Boulardii (Saccharomyces Boulardii 250 Mg Cap) 250 mg PO BID [facility] Stop: 02/13/22 08:59 Last Admin: 02/08/22 10:38 Dose: 250 mg Documented by: Senna/Docusate Sodium (Docusate Sodium/Senna 50/8.6mg Tab) 2 tab PO HS [facility] Stop: 03/04/22 20:59 Last Admin: 02/07/22 21:04 Dose: 2 tab Documented by: Vitamin D (Cholecalciferol 5,000 Units 125 Mcg Tab) 5,000 units PO QAM [facility] Stop: 03/11/22 08:59 (1) Closed intertrochanteric fracture of left hip Encounter type: initial encounter Fracture alignment: displaced Qualified Code(s): S72.142A - Displaced intertrochanteric fracture of left femur, initial encounter for closed fracture
[2022-02-08] MEDS: ENOXAPARIN INJ 40 MG/0.4 ML SYR SQ SCH (20:50)
[2022-02-08] MEDS: DOCUSATE SODIUM/SENNA 50/8.6MG TAB PO SCH (20:56)
[2022-02-09] MEDS: oxyCODONE HCL IR 5 MG TAB (IMMEDIATE RELEASE) PO PRN ×4 (04:02→21:23)
[2022-02-09 06:43] LABS: Hematocrit (blood only) 32.3 % (37-47); Hemoglobin 10.3 g/dL (12.0-16.0); Mean Corpuscular Hemoglobin 27.6 pg (25-34); Mean Corpuscular Hgb Conc 31.9 g/dL (32-36); Mean Corpuscular Volume 86.6 fL (80-100); Mean Platelet Volume 8.5 fL (7.4-10.4); Platelet Count 532 K/uL (130-400); RDW Coefficient of Variation 14.5 % (11.5-14.5); RDW Standard Deviation 45.6 fL (36.4-46.3); Red Blood Count 3.73 M/uL (4.2-5.4); White Blood Count 12.52 K/uL (4.8-10.8)
[2022-02-09] MEDS: ACETAMINOPHEN 500 MG TAB PO SCH ×3 (06:44→21:12)
[2022-02-09 07:05] LABS: BUN Creatinine Ratio 23.7 (10-20); Calcium 9.4 mg/dl (8.5-10.1); Creatinine Clr Calc Pharmacy 92.9 ml/min; Est GFR (African American) 113.5 ml/min; Potassium 3.2 mmol/L (3.5-5.1)
[2022-02-09] MEDS: GABAPENTIN 100 MG CAP PO SCH ×2 (08:02→21:16)
[2022-02-09] MEDS: FAMOTIDINE 20 MG TAB PO SCH ×2 (08:02→21:16)
[2022-02-09] MEDS: LIDOCAINE 5% 1 PATCH TD SCH (08:02)
[2022-02-09] MEDS: LORATADINE 10 MG TAB PO SCH (08:02)
[2022-02-09] MEDS: CHOLECALCIFEROL 5,000 UNITS 125 MCG TAB PO SCH (08:02)
[2022-02-09] MEDS: SACCHAROMYCES BOULARDII 250 MG CAP PO SCH ×2 (08:02→21:16)
[2022-02-09] MEDS ORDERED: POTASSIUM CHLORIDE CRTAB 20 MEQ TABCR PO STA (09:07)
--- NOTE | 2022-02-09 09:23 | Nephrology Progress Note ---
Date of Service February 09, 2022 Assessment & Plan Admission and Anticipated Discharge Date Admission Date: February 02, 2022 Subjective 81/F with Acute fall and fracture and has LowNa+ (1) Acute hyponatremia: Patient with hyponatremia due to syndrome of inappropriate ADH with Low Solute diet. na now 135--On no meds now--Both urea and Salt tab already stopped Continue Fluid restriction of 1.2 L daily Protein Supplement. 2 HTN--BP running high. Raise amlo to 5 daily. if still high Can add other meds Including KRYSTA/ARB/BB. But some of it is from pain also. S---hard to get history. C/o Diffuse pain. BP high Physical Exam Physical Exam: General exam: Appears comfortable, no acute distress HEENT: Pupils are equal and reactive to light Neck: No JVD, neck is supple trachea is midline Respiratory system: Clear breath sounds bilaterally. Gastrointestinal: Abdomen is soft, non distended, non tender, bowel sounds are present CVS: Regular rate and rhythm. No murmurs, rubs or gallops Musculoskeletal: No joint or muscle tenderness Extremities: Left thigh is swollen and tender Neuro: no tremors, Skin: No rashes Results & Data ([facility]) Vital Signs (Past 12 Hours) Vital Signs Temp Pulse Pulse Resp BP Pulse Ox 02/09/22 07:55 36.7 C 105 H 16 176/91 H 95 02/09/22 04:00 36.9 C 89 16 170/94 H 97 02/09/22 00:04 108 H 02/08/22 23:20 36.8 C 107 H 18 149/86 H 95
[2022-02-09] MEDS: amLODIPine BESYLATE 5 MG TAB PO SCH (09:39)
--- NOTE | 2022-02-09 11:13 | Gastrointestinal Consultation ---
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 Documented are three BMs with small volume blood, no report of melena after four days of no movements. She is hemodynamically stable with stable HGB w/o BUN elevation. DDX discussed: hemorrhoidal, infectious, diverticular, ischemic, malignancy Conservative measures at this time If she developed diarrhea would recommend stool studies including c.diff If she developed discomfort or pain would recommend CTAP Trend H&H Monitor and document output Transfuse PRN Bowel regimen, avoid constipation and straining Would add Miralax 1 capful 1-2 times daily Would defer endoscopic evaluation unless urgent given recent surgical intervention and increased difficulty to safely prep Thank you for allowing us to participate in the care of this patient. Please call with any acute changes, questions or concerns. Please see addendum below with additional recommendation from my supervising physician. Supervising Physician Co-Signing Physician Notes Admitted with a fall, with a bm after a few days of constipation. Suspect self limited brb could be from recent constipation Abd soft, spencer's palsy changes on her face Agree with further plan of care. 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 GI asked to evaluate for rectal bleeding. Pt was seen and evaluated, chart reviewed. She is a poor historian for recall. She is unsure if she has been having any issues with her bowel movements. Denies constipation, diarrhea. Has not seen any black or bloody stools. Was made aware of blood by staff. Documented is trace blood on 02/08 and again on 02/09. Dark red, no black. Currently, feels well! Denies abd pain, nausea, vomiting. No lightheadedness, dizziness, CP, SOB. She denies previous EGDs Recalls she has had colonoscopy before around [place], none locally HGB 10 BUN 9 Allergies Allergy/AdvReac Type Severity Reaction Status Date / Time ezetimibe [From Zetia] Allergy Unknown ON Verified 02/02/22 15:41 [facility] Sulfa (Sulfonamide Allergy Unknown ON Verified 02/02/22 15:41 Antibiotics) [facility] sulfamethoxazole Allergy Unknown ON Verified 02/02/22 15:41 [From Bactrim] [facility] tramadol Allergy Unknown ON Verified 02/02/22 15:41 [facility] trimethoprim [From Bactrim] Allergy Unknown ON Verified 02/02/22 15:41 [facility] Home Medications Medication Instructions Recorded Confirmed Type amlodipine 5 mg tablet 5 mg PO QAM 12/25/21 02/02/22 History cholecalciferol (vitamin D3) 25 25 mcg PO QAM 12/25/21 02/02/22 History mcg (1,000 unit) capsule (Vitamin D3) citalopram 10 mg tablet 10 mg PO QAM 12/25/21 02/02/22 History loratadine 10 mg tablet (Claritin) 10 mg PO QAM 12/25/21 02/02/22 History acetaminophen 500 mg tablet 1,000 mg PO Q8 #30 tab 01/02/22 02/02/22 Rx (Tylenol Extra Strength) aspirin 81 mg capsule 81 mg PO BID #30 cap 01/02/22 02/02/22 Rx docusate sodium 100 mg capsule 100 mg PO BID 01/31/22 02/02/22 History oxybutynin chloride 5 mg tablet 2.5 mg PO TID PRN #14 tab 01/31/22 02/02/22 Rx ciprofloxacin HCl 500 mg tablet 500 mg PO BID 02/02/22 02/02/22 History (Cipro) phenazopyridine 200 mg tablet 200 mg PO BID PRN 02/02/22 02/02/22 History Patient History Medical History Spencer's palsy Closed right hip fracture Dementia Fall History of breast cancer Lumbar spinal stenosis Osteoporosis Pre-diabetes Surgical History History of partial mastectomy hx of dcis Family History Mother Alzheimer disease Father Heart disease Social History Smoking Status: Never smoker Hx Alcohol Use: Yes Hx Substance Use: No Preferred Language: Pashto Communication Ability: Effective Pulverizer Feeder Required: No Beliefs That Will Affect Care: None marital status: Current Living Situation: Personal Care Facility How many Children do You have: 2 Feels Safe at Home: Yes Assistive Devices: Walker and Wheelchair Review of Systems Review of Systems: All systems reviewed & are unremarkable except as noted in HPI & below Results & Data ([facility]) Vital Signs (Past 12 Hours) Vital Signs Temp Pulse Pulse Resp BP Pulse Ox 02/09/22 07:55 36.7 C 105 H 16 176/91 H 95 02/09/22 04:00 36.9 C 89 16 170/94 H 97 02/09/22 00:04 108 H 02/08/22 23:20 36.8 C 107 H 18 149/86 H 95 Laboratory Results 02/09/22 02/09/22 Range/Units 06:14 06:14 WBC 12.52 H (4.8-10.8) K/uL RBC 3.73 L (4.2-5.4) M/uL Hgb 10.3 L (12.0-16.0) g/dL Hct 32.3 L (37-47) % MCV 86.6 (80-100) fL MCH 27.6 (25-34) pg MCHC 31.9 L (32-36) g/dL RDW Std Deviation 45.6 (36.4-46.3) fL RDW Coeff of Tyesha 14.5 (11.5-14.5) % Plt Count 532 H (130-400) K/uL MPV 8.5 (7.4-10.4) fL Sodium 135 L (136-145) mmol/L Potassium 3.2 L (3.5-5.1) mmol/L Chloride 97 L (98-107) mmol/L Carbon Dioxide 30 (21-32) mmol/L Anion Gap 8 (3-11) BUN 9 (6-23) mg/dl Creatinine 0.38 L (0.6-1.2) mg/dl Est Cr Clr Drug Dosing 92.9 ml/min Est GFR ( Amer) 113.5 ml/min Est GFR (Non-Af Amer) 98.0 ml/min BUN/Creatinine Ratio 23.7 H (10-20) Glucose 101 H (70-99(Fasting)) mg/dl Calcium 9.4 (8.5-10.1) mg/dl
--- NOTE | 2022-02-09 17:01 | Hospitalist Progress Note ---
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 PRN oxycodone (patient with listed allergy to Tramadol). 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 continue Urea and Sodium tablets Vitamin D deficiency -continue supplement Possible UTI -Recent Sx, UA normal. finished 4 days of ciprofloxacin. 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 Dementia Monitor for delirium Reorient frequently Pt's daughter, Jo-Ann Lee [phone] updated 02/08 and 02/09 DVT Prophylaxis SCDs. Lovenox --holding for now Likely can discharge to SNF in next 1-2 days pending H/h stability Admission and Anticipated Discharge Date Admission Date: February 02, 2022 Subjective Patient denies pain or discomfort Per nursing, she again had 2 BM this morning, first had some small blood clot, 2nd was maroon color I spoke with her daughter, Jo-Ann, she is unsure if mom was having this at home. Uncertain when/if she ever had a colonoscopy Physical Exam Physical Exam: Appears well, non toxic, comfortable Respiratory: breathing comfortably, no wheezing/rhonchi/rales, diminished at bases Cardiovascular: regular rate and rhythm, no murmurs/rubs/gallops Gastrointestinal (Abdomen): soft, non tender, non distended. Musculoskeletal: no edema Neurologic: awake, baseline dementia, answers simple questions, left facial palsy (chronic) Results & Data Results & Data ([facility]) Vital Signs (Past 12 Hours) Vital Signs Temp Pulse Pulse Resp BP Pulse Ox 02/09/22 15:00 92 H 02/09/22 11:36 36.8 C 82 16 162/91 H 90 02/09/22 08:00 108 H 02/09/22 07:55 36.7 C 105 H 16 176/91 H 95 Laboratory Results Short CBC 02/09/22 Range/Units 06:14 WBC 12.52 H (4.8-10.8) K/uL Hgb 10.3 L (12.0-16.0) g/dL Hct 32.3 L (37-47) % Plt Count 532 H (130-400) K/uL BMP 02/09/22 06:14 Sodium 135 L Potassium 3.2 L Chloride 97 L Carbon Dioxide 30 BUN 9 Creatinine 0.38 L Glucose 101 H Calcium 9.4 Medications Administered Current Inpatient Medications Acetaminophen (Acetaminophen 500 Mg Tab) 1,000 mg PO Q8 SELIN Stop: 03/04/22 21:59 Last Admin: 02/09/22 14:15 Dose: Not Given Documented by: Amlodipine Besylate (Amlodipine Besylate 5 Mg Tab) 2.5 mg PO QAM [facility] Stop: 03/11/22 08:59 Last Admin: 02/09/22 09:39 Dose: 2.5 mg Documented by: Bisacodyl (Bisacodyl 10 Mg Supp) 10 mg [place] DAILY PRN PRN Reason: Constipation Stop: 03/04/22 19:42 Citalopram Hydrobromide (Citalopram 20 Mg Tab) 10 mg PO QAM SELIN Stop: 03/05/22 08:59 Last Admin: 02/03/22 11:18 Dose: 10 mg Documented by: Enoxaparin Sodium (Enoxaparin Inj 40 Mg/0.4 Ml Syr) 40 mg SQ Q24H SELIN Stop: 03/06/22 12:44 Last Admin: 02/08/22 20:50 Dose: 40 mg Documented by: Famotidine (Famotidine 20 Mg Tab) 20 mg PO BID SELIN Stop: 03/09/22 20:59 Last Admin: 02/09/22 08:02 Dose: 20 mg Documented by: Gabapentin (Gabapentin 100 Mg Cap) 100 mg PO BID [facility] Stop: 03/09/22 09:14 Last Admin: 02/09/22 08:02 Dose: 100 mg Documented by: Levalbuterol HCl (Levalbuterol Hcl 0.63 Mg/3 Ml Neb) 0.63 mg NEB Q4H PRN; Protocol PRN Reason: Shortness Of Breath Or Wheezing Stop: 03/06/22 19:29 Last Admin: 02/05/22 03:21 Dose: 0.63 mg Documented by: Lidocaine (Lidocaine 5% 1 Patch) 1 patch TD QAM [facility] Stop: 03/05/22 11:59 Last Admin: 02/09/22 08:02 Dose: 1 patch Documented by: Loratadine (Loratadine 10 Mg Tab) [facility] [place]: 03/05/22 08:59 Last Admin: 02/09/22 08:02 Dose: 10 mg Documented by: Magnesium Hydroxide (Magnesium Hydroxide Susp 30 Ml Udc) 30 ml PO Q12H PRN PRN Reason: Constipation Stop: 03/04/22 19:42 Miscellaneous (Remove Lidoderm Patch) 1 ea N/A DAILY@2100 [facility] Stop: 03/05/22 22:59 Last Admin: 02/08/22 20:57 Dose: 1 ea Documented by: Naloxone HCl (Naloxone Hcl 0.4 Mg/1 Ml Vial/Carp) 0.1 mg IV UD PRN PRN Reason: Opiate Overdose Stop: 03/04/22 19:42 Ondansetron HCl (Ondansetron Inj 2 Mg/Ml 2 Ml Vial) 4 mg IV Q6H PRN PRN Reason: Nausea Stop: 03/04/22 19:42 Last Admin: 02/07/22 10:46 Dose: 4 mg Documented by: Oxycodone HCl (Oxycodone Hcl Ir 5 Mg Tab (Immediate Release)) 5 mg PO Q6H PRN PRN Reason: Pain Stop: 02/21/22 09:15 Last Admin: 02/09/22 12:00 Dose: 5 mg Documented by: Pantoprazole Sodium (Pantoprazole 40 Mg Tab) 40 mg PO BID [facility] Stop: 03/11/22 20:59 Polyethylene Glycol (Polyethylene (Miralax) 17 Gm Pack) 17 gm PO DAILY PRN PRN Reason: Constipation Stop: 03/04/22 19:42 Saccharomyces Boulardii (Saccharomyces Boulardii 250 Mg Cap) 250 mg PO BID SELIN Stop: 02/13/22 08:59 Last Admin: 02/09/22 08:02 Dose: 250 mg Documented by: Senna/Docusate Sodium (Docusate Sodium/Senna 50/8.6mg Tab) 2 tab PO HS SELIN Stop: 03/04/22 20:59 Last Admin: 02/08/22 20:56 Dose: 2 tab Documented by: Vitamin D (Cholecalciferol 5,000 Units 125 Mcg Tab) 5,000 units PO QAM SELIN Stop: 03/11/22 08:59 Last Admin: 02/09/22 08:02 Dose: 5,000 units Documented by: (1) Closed intertrochanteric fracture of left hip Encounter type: initial encounter Fracture alignment: displaced Qualified Code(s): S72.142A - Displaced intertrochanteric fracture of left femur, initial encounter for closed fracture
[2022-02-09] MEDS: DOCUSATE SODIUM/SENNA 50/8.6MG TAB PO SCH (21:16)
[2022-02-09] MEDS: PANTOprazole 40 MG TAB PO SCH (21:16)
[2022-02-09] MEDS: ONDANSETRON INJ 2 MG/ML 2 ML VIAL IV PRN (21:23)
[2022-02-10] MEDS: ACETAMINOPHEN 500 MG TAB PO SCH ×3 (05:47→21:00)
[2022-02-10 07:42] LABS: Hematocrit (blood only) 27.2 % (37-47); Hemoglobin 8.8 g/dL (12.0-16.0); Mean Corpuscular Hgb Conc 32.4 g/dL (32-36); Mean Corpuscular Volume 86.6 fL (80-100); Mean Platelet Volume 8.1 fL (7.4-10.4); Platelet Count 486 K/uL (130-400); RDW Coefficient of Variation 14.7 % (11.5-14.5); Red Blood Count 3.14 M/uL (4.2-5.4); White Blood Count 14.72 K/uL (4.8-10.8)
[2022-02-10] MEDS: amLODIPine BESYLATE 5 MG TAB PO SCH (07:59)
[2022-02-10] MEDS: CHOLECALCIFEROL 5,000 UNITS 125 MCG TAB PO SCH (07:59)
[2022-02-10] MEDS: LORATADINE 10 MG TAB PO SCH (08:00)
[2022-02-10] MEDS: PANTOprazole 40 MG TAB PO SCH ×2 (08:00→20:55)
[2022-02-10] MEDS: FAMOTIDINE 20 MG TAB PO SCH ×2 (08:00→20:55)
[2022-02-10] MEDS: LIDOCAINE 5% 1 PATCH TD SCH (08:00)
[2022-02-10] MEDS: CITALOPRAM 20 MG TAB PO SCH (08:00)
[2022-02-10] MEDS: GABAPENTIN 100 MG CAP PO SCH ×2 (08:00→20:56)
[2022-02-10] MEDS: SACCHAROMYCES BOULARDII 250 MG CAP PO SCH ×2 (08:00→20:56)
[2022-02-10] MEDS: oxyCODONE HCL IR 5 MG TAB (IMMEDIATE RELEASE) PO PRN (08:02)
[2022-02-10 08:50] LABS: BUN Creatinine Ratio 43.8 (10-20); Calcium 9.1 mg/dl (8.5-10.1); Est GFR (African American) 105.1 ml/min; Est GFR (Non-African American) 90.7 ml/min
[2022-02-10] MEDS: PSYLLIUM or GUAR GUM FIBER POWDER PACKET PO SCH (09:19)
--- NOTE | 2022-02-10 13:45 | Hospitalist Progress Note ---
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 PRN oxycodone (patient with listed allergy to Tramadol). 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 continue Urea and Sodium tablets Vitamin D deficiency -continue supplement Possible UTI -Recent Sx, UA normal. finished 4 days of ciprofloxacin. 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 Dementia Monitor for delirium Reorient frequently Failure to thrive -trial of marinol Pt's daughter, Jo-Ann Lee [phone] updated DVT Prophylaxis SCDs, Lovenox held for now Admission and Anticipated Discharge Date Admission Date: February 02, 2022 Subjective Patient with no complaints but per nursing continues to have maroon colored stool smears Per nursing, patient ate pears for breakfast and cream of wheat for lunch Physical Exam Physical Exam: Thin, frail, elderly Constitutional: pale Respiratory: breathing comfortably, no acute distress, poor respiratory effort Cardiovascular: regular rate and rhythm, no murmurs/rubs/gallops Gastrointestinal (Abdomen): abdominal discomfort with palpation, no distension, +BS Musculoskeletal: no edema Neurologic: drowsy but awake, chronic left facial palsy, baseline dementia Results & Data Results & Data ([facility]) Vital Signs (Past 12 Hours) Vital Signs Temp Pulse Pulse Resp BP BP Pulse Ox 02/10/22 11:43 36.9 C 96 H 20 121/67 96 02/10/22 09:33 90 02/10/22 07:26 36.8 C 89 18 123/72 95 02/10/22 03:14 36.7 C 94 H 18 143/78 H 96 Laboratory Results Short CBC 02/10/22 Range/Units 07:27 WBC 14.72 H (4.8-10.8) K/uL Hgb 8.8 L (12.0-16.0) g/dL Hct 27.2 L (37-47) % Plt Count 486 H (130-400) K/uL BMP 02/10/22 07:27 Sodium 134 L Potassium 4.0 D Chloride 100 Carbon Dioxide 29 BUN 21 Creatinine 0.48 L Glucose 110 H Calcium 9.1 Medications Administered Current Inpatient Medications Acetaminophen (Acetaminophen 500 Mg Tab) 1,000 mg PO Q8 SELIN Stop: 03/04/22 21:59 Last Admin: 02/10/22 14:36 Dose: 1,000 mg Documented by: Amlodipine Besylate (Amlodipine Besylate 5 Mg Tab) 2.5 mg PO QAM SELIN Stop: 03/11/22 08:59 Last Admin: 02/10/22 07:59 Dose: 2.5 mg Documented by: Bisacodyl (Bisacodyl 10 Mg Supp) 10 mg NM DAILY PRN PRN Reason: Constipation Stop: 03/04/22 19:42 Citalopram Hydrobromide (Citalopram 20 Mg Tab) 10 mg PO QAM SELIN Stop: 03/05/22 08:59 Last Admin: 02/10/22 08:00 Dose: 10 mg Documented by: Enoxaparin Sodium (Enoxaparin Inj 40 Mg/0.4 Ml Syr) 40 mg SQ Q24H SELIN Stop: 03/06/22 12:44 Last Admin: 02/08/22 20:50 Dose: 40 mg Documented by: Famotidine (Famotidine 20 Mg Tab) 20 mg PO BID SELIN Stop: 03/09/22 20:59 Last Admin: 02/10/22 08:00 Dose: 20 mg Documented by: Gabapentin (Gabapentin 100 Mg Cap) 100 mg PO BID SELIN Stop: 03/09/22 09:14 Last Admin: 02/10/22 08:00 Dose: 100 mg Documented by: Levalbuterol HCl (Levalbuterol Hcl 0.63 Mg/3 Ml Neb) 0.63 mg NEB Q4H PRN; Protocol PRN Reason: Shortness Of Breath Or Wheezing Stop: 03/06/22 19:29 Last Admin: 02/05/22 03:21 Dose: 0.63 mg Documented by: Lidocaine (Lidocaine 5% 1 Patch) 1 patch TD [facility] Stop: 03/05/22 11:59 Last Admin: 02/10/22 08:00 Dose: 1 patch Documented by: Loratadine (Loratadine 10 Mg Tab) [facility] [place] Stop: 03/05/22 08:59 Last Admin: 02/10/22 08:00 Dose: 10 mg Documented by: Magnesium Hydroxide (Magnesium Hydroxide Susp 30 Ml Udc) 30 ml PO Q12H PRN PRN Reason: Constipation Stop: 03/04/22 19:42 Miscellaneous (Remove Lidoderm Patch) 1 ea N/A DAILY@2100 [facility] Stop: 03/05/22 22:59 Last Admin: 02/09/22 22:33 Dose: 1 ea Documented by: Naloxone HCl (Naloxone Hcl 0.4 Mg/1 Ml Vial/Carp) 0.1 mg IV UD PRN PRN Reason: Opiate Overdose Stop: 03/04/22 19:42 Ondansetron HCl (Ondansetron Inj 2 Mg/Ml 2 Ml Vial) 4 mg IV Q6H PRN PRN Reason: Nausea Stop: 03/04/22 19:42 Last Admin: 02/09/22 21:23 Dose: 4 mg Documented by: Oxycodone HCl (Oxycodone Hcl Ir 5 Mg Tab (Immediate Release)) 5 mg PO Q6H PRN PRN Reason: Pain Stop: 02/21/22 09:15 Last Admin: 02/10/22 08:02 Dose: 5 mg Documented by: Pantoprazole Sodium (Pantoprazole 40 Mg Tab) 40 mg PO BID [facility] Stop: 03/11/22 20:59 Last Admin: 02/10/22 08:00 Dose: 40 mg Documented by: Polyethylene Glycol (Polyethylene (Miralax) 17 Gm Pack) 17 gm PO DAILY PRN PRN Reason: Constipation Stop: 03/04/22 19:42 Psyllium Hydrophilic Mucilloid (Psyllium 58.6% Powder Packet) 1 pkt PO [facility] Stop: 03/12/22 08:59 Last Admin: 02/10/22 09:19 Dose: 1 pkt Documented by: Saccharomyces Boulardii (Saccharomyces Boulardii 250 Mg Cap) 250 mg PO BID SELIN Stop: 02/13/22 08:59 Last Admin: 02/10/22 08:00 Dose: 250 mg Documented by: Senna/Docusate Sodium (Docusate Sodium/Senna 50/8.6mg Tab) 2 tab PO HS [facility] Stop: 03/04/22 20:59 Last Admin: 02/09/22 21:16 Dose: Not Given Documented by: Vitamin D (Cholecalciferol 5,000 Units 125 Mcg Tab) 5,000 units PO QAM [facility] Stop: 03/11/22 08:59 Last Admin: 02/10/22 07:59 Dose: 5,000 units Documented by: (1) Closed intertrochanteric fracture of left hip Encounter type: initial encounter Fracture alignment: displaced Qualified Code(s): S72.142A - Displaced intertrochanteric fracture of left femur, initial encounter for closed fracture
--- NOTE | 2022-02-10 15:04 | Nephrology Progress Note ---
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 Admission sodium was 125 which has now increased to 134. off of all medications for moving sodium at this time. -continue daily bmp -maintain eukalemia -continue 1.2L FR for now > if sNa tomorrow 134 or 135, can liberalize FR to 1.5L -has not needed salt tabs or urea for several days - hopeful she will not need them will sign off; pls call if ? at d/c, recommend weekly bmp x 3 to be ordered by [facility] and followed at [facility]; if further concerns about hyponatremia can refer to [facility] nephrology for follow up; else f/u prn w/ us Admission and Anticipated Discharge Date Admission Date: February 02, 2022 Subjective c/o sore backside and severe constipation causing abd pain and poor po intake. no sob, no n/v. hospitalist mentions it's bee more a matter of hematochezia w/ the pt Review of Systems Review of Systems: All systems reviewed & are unremarkable except as noted in Subjective Physical Exam Constitutional: well developed, well nourished and + in distress (mild d/t backside discomfort) Eyes: + eyelid abnormality (holds L eye closed) ENMT: Ears: no external ear abnormality Nose: no external nose abnormality Mouth: + dry oral mucous membranes Neck: no nuchal rigidity Respiratory: normal respiratory effort Auscultation: + diminished lung sounds Cardiovascular: Rate/Rhythm: regular rhythm and + tachycardic Extremities: no edema Gastrointestinal (Abdomen): Inspection/Auscultation: normal bowel sounds Percussion/Palpation: abdomen soft; abdomen nontender Musculoskeletal: Extremities: strength 5/5 throughout Skin: no rashes, warm and dry Neurologic: vinson, fluent speech, no tremor Psychiatric: Orientation: oriented to person (? slight confusion) and oriented to place Results & Data ([facility]) Vital Signs (Past 12 Hours) Vital Signs Temp Pulse Pulse Resp BP BP Pulse Ox 02/10/22 11:43 36.9 C 96 H 20 121/67 96 02/10/22 09:33 90 02/10/22 07:26 36.8 C 89 18 123/72 95 02/10/22 03:14 36.7 C 94 H 18 143/78 H 96 Laboratory Results 02/10/22 07:27 02/10/22 07:27
[2022-02-10] MEDS ORDERED: OPTIRAY 320 100ml IV ONE (16:46)
--- NOTE | 2022-02-10 17:27 | CT Scan Report ---
ABDOMEN AND PELVIS CT WITH IV CONTRAST CT DOSE: 281.59 mGy.cm HISTORY: Acute loss abdominal pain with GI bleed GI bleed TECHNIQUE: Multiaxial CT images of the abdomen and pelvis were performed following the IV administrat ion of 94 cc of Optiray, A dose lowering technique was utilized adhering to the principles of ALARA. COMPARISON STUDY: Chest radiograph and left hip radiographs 02/04/2022 FINDINGS: Cardiomegaly with coronary artery calcifications. Trace pleural effusions. Right hemidiaphr agmatic elevation with bibasilar consolidative densities. Study is degraded by respiratory motion art ifact. The spleen, mildly atrophic pancreas and liver appear unremarkable. Cholecystectomy with mild to moderate intrahepatic and extrahepatic biliary ductal dilation, likely postsurgical. Thickening of the adrenal glands suggests hyperplasia. 1.4 cm left renal cyst. 1.0 cm right renal cyst. No hydronephrosis. Urinary bladder wall thickening w ith partial distention and perivesicular stranding. Heterogeneity of the uterus. Atherosclerosis of t he aorta with mild infrarenal ectasia, 2.5 x 2.1 cm. There is no lymphadenopathy identified. Distal esophageal wall thickening with small to moderate hiatal hernia. Trace free fluid within the p evangelina with perirectal inflammatory stranding. Marked fecal retention of the rectum with rectal wall t hickening. Mild tortuosity of the sigmoid. There is at least moderate fecal retention throughout the remainder of the large bowel. Colonic diverticulosis without acute diverticulitis. The appendix is no t definitively seen. No secondary signs of acute appendicitis. Unremarkable soft tissues. Degenerativ e changes of the spine, pelvis and left hip. Surgical clips of the left breast. Acute intertrochanter ic fracture of the left femur redemonstrated with intertrochanteric nail with medullary esmer. Grade 1 anterolisthesis L4 on L5 is likely secondary to chronic facet arthrosis. T12 burst fracture with 10 m m retropulsion is noted without paravertebral edema. The retropulsion at this level results in at daniella st mild central canal stenosis. IMPRESSION: 1. Constipation with marked fecal retention of the rectum. Findings are compatible with associated st ercoral proctitis with rectal wall thickening, perirectal inflammatory stranding and trace pelvic asc ites. 2. Small pleural effusions with bibasilar consolidation suggestive of atelectasis. Pneumonia would be difficult to exclude. 3. Fixated acute intertrochanteric left femoral fracture. 4. T12 burst fracture with 10 mm retropulsion is technically age-indeterminate however appears chroni c. 5. Additional findings as above. ACT 112: Negative or not required by law. The above report was generated using voice recognition software. It may contain grammatical, syntax o r spelling errors. Electronically signed by: Prashanth Morales M.D. 02/10/2022 5:24 PM
[2022-02-10] MEDS: bisacodyL 10 MG SUPP PR SCH (18:15)
--- NOTE | 2022-02-10 19:56 | Surgery Consultation ---
Date of Consultation February 10, 2022 Assessment & Plan (1) Proctitis: pt is a 81 year-old is S/P Intramedullary Nail Fixation Left Hip, POD 6, pt had CT scan today- finding- proctitis, with constipation, passed 3 times BM, IMP; proctitis, Plan, conservative treatment, start IV antibiotic, Cipro 400mg IV BiD X 7 days, may check C-diff if pt start have diarrhea, will F/U Supervising Physician Co-Signing Physician Notes Admitted with a fall, with a bm after a few days of constipation. Suspect self limited brb could be from recent constipation Abd soft, spencer's palsy changes on her face Agree with further plan of care. 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 GI asked to evaluate for rectal bleeding. Pt was seen and evaluated, chart reviewed. She is a poor historian for recall. She is unsure if she has been having any issues with her bowel movements. Denies constipation, diarrhea. Has not seen any black or bloody stools. Was made aware of blood by staff. Documented is trace blood on 02/08 and again on 02/09. Dark red, no black. Currently, feels well! Denies abd pain, nausea, vomiting. No lightheadedness, dizziness, CP, SOB. She denies previous EGDs Recalls she has had colonoscopy before around [place], none locally HGB 10 BUN 9 I ( Ann Viera MD ) got a call for consult stercoral proctitis, I reviewed pt's H/P, labs, CT scan with pt and nurse, Allergies Allergy/AdvReac Type Severity Reaction Status Date / Time ezetimibe [From Zetia] Allergy Unknown ON Verified 02/02/22 15:41 [facility] Sulfa (Sulfonamide Allergy Unknown ON Verified 02/02/22 15:41 Antibiotics) [facility] sulfamethoxazole Allergy Unknown ON Verified 02/02/22 15:41 [From Bactrim] [facility] tramadol Allergy Unknown ON Verified 02/02/22 15:41 [facility] trimethoprim [From Bactrim] Allergy Unknown ON Verified 02/02/22 15:41 [facility] Medications Medication Instructions Recorded Confirmed Type amlodipine 5 mg tablet 5 mg PO QAM 12/25/21 02/02/22 History cholecalciferol (vitamin D3) 25 25 mcg PO QAM 12/25/21 02/02/22 History mcg (1,000 unit) capsule (Vitamin D3) citalopram 10 mg tablet 10 mg PO QAM 12/25/21 02/02/22 History E loratadine 10 mg tablet (Claritin) 10 mg PO QAM 12/25/2102/02 History acetaminophen 500 mg tablet 1,000 mg PO Q8 #30 tab 01/02/22 02/02/22 Rx (Tylenol Extra Strength) aspirin 81 mg capsule 81 mg PO BID #30 cap 01/02/22 02/02/22 Rx docusate sodium 100 mg capsule 100 mg PO BID 01/31/22 02/02/22 History oxybutynin chloride 5 mg tablet 2.5 mg PO TID PRN #14 tab 01/31/22 Rx ciprofloxacin HCl 500 mg tablet 500 mg PO BID 02/02/22 02/02/22 History (Cipro) phenazopyridine 200 mg tablet 200 mg PO BID PRN 02/02/22 02/02/22 H istory Patient History Medical History Spencer's palsy Closed right hip fracture Dementia Fall History of breast cancer Lumbar spinal stenosis Osteoporosis Pre-diabetes Surgical History History of partial mastectomy hx of dcis Family History Mother Alzheimer diseaseFather Heart disease Social History Smoking Status: Never smoker Hx Alcohol Use: Yes Hx Substance Use: No Preferred Language: Maori Communication Ability: Effective Lna Required: No Beliefs That Will Affect Care: None marital status: Current Living Situation: Personal Care Facility How many Children do You have: 2 Feels Safe at Home: Yes Assistive Devices: Walker and Wheelchair Review of Systems Review of Systems: All systems reviewed & are unremarkable except as noted in HPI & below Allergies Allergy/AdvReac Type Severity Reaction Status Date / Time ezetimibe [From Zetia] Allergy Unknown ON Verified 02/02/22 15:41 [facility] Sulfa (Sulfonamide Allergy Unknown ON Verified 02/02/22 15:41 Antibiotics) [facility] sulfamethoxazole Allergy Unknown ON Verified 02/02/22 15:41 [From Bactrim] [facility] tramadol Allergy Unknown ON Verified 02/02/22 15:41 [facility] trimethoprim [From Bactrim] Allergy Unknown ON Verified 02/02/22 15:41 [facility] Home Medications Medication Instructions Recorded Confirmed Type amlodipine 5 mg tablet 5 mg PO QAM 12/25/21 02/02/22 History cholecalciferol (vitamin D3) 25 25 mcg PO QAM 12/25/21 02/02/22 History mcg (1,000 unit) capsule (Vitamin D3) citalopram 10 mg tablet 10 mg PO QAM 12/25/21 02/02/22 History loratadine 10 mg tablet (Claritin) 10 mg PO QAM 12/25/21 02/02/22 History acetaminophen 500 mg tablet 1,000 mg PO Q8 #30 tab 01/02/22 02/02/22 Rx (Tylenol Extra Strength) aspirin 81 mg capsule 81 mg PO BID #30 cap 01/02/22 02/02/22 Rx docusate sodium 100 mg capsule 100 mg PO BID 01/31/22 02/02/22 History oxybutynin chloride 5 mg tablet 2.5 mg PO TID PRN #14 tab 01/31/22 02/02/22 Rx ciprofloxacin HCl 500 mg tablet 500 mg PO BID 02/02/22 02/02/22 History (Cipro) phenazopyridine 200 mg tablet 200 mg PO BID PRN 02/02/22 02/02/22 History Patient History Medical History Spencer's palsy Closed right hip fracture Dementia Fall History of breast cancer Lumbar spinal stenosis Osteoporosis Pre-diabetes Surgical History History of partial mastectomy hx of dcis Family History Mother Alzheimer disease Father Heart disease Social History Smoking Status: Never smoker Hx Alcohol Use: Yes Hx Substance Use: No Preferred Language: Maori Communication Ability: Effective Lna Required: No Beliefs That Will Affect Care: None marital status: Current Living Situation: Personal Care Facility How many Children do You have: 2 Feels Safe at Home: Yes Assistive Devices: Walker and Wheelchair Physical Exam Constitutional: WD/WN, vitals as above no distress Eyes: PERRL, conjunctivae normal, anicteric sclerae Neck: trachea midline, no thyromegaly Respiratory: normal respiratory effort, lungs clear to auscultation Cardiovascular: RRR, no murmur, no edema Gastrointestinal (Abdomen): soft, NT, Nd, rectal exam,BS +, no active rectal bleeding some redness at rectal area, Neurologic: patellar DTR's 2+ bilat, sensation intact Psychiatric: Apperance: appeared stated age Results & Data ([facility]) Vital Signs (Past 12 Hours) Vital Signs Temp Pulse Pulse Resp BP Pulse Ox 02/10/22 16:08 97 H 02/10/22 14:55 37 C 101 H 17 143/81 H 97 02/10/22 11:43 36.9 C 96 H 20 121/67 96 02/10/22 09:33 90 Laboratory Results Abnormal lab results 02/10/22 02/10/22 02/10/22 Range/Units 02:10 07:27 07:27 WBC 14.72 H (4.8-10.8) K/uL RBC 3.14 L (4.2-5.4) M/uL Hgb 8.8 L (12.0-16.0) g/dL Hct 27.2 L (37-47) % RDW Std Deviation 47.0 H (36.4-46.3) fL RDW Coeff of Tyesha 14.7 H (11.5-14.5) % Plt Count 486 H (130-400) K/uL Sodium 134 L (136-145) mmol/L Creatinine 0.48 L (0.6-1.2) mg/dl BUN/Creatinine Ratio 43.8 H (10-20) Glucose 110 H (70-99(Fasting)) mg/dl Stool Occult Bld Scrn Positive A (Negative) Diagnostic Findings ABDOMEN AND PELVIS CT WITH IV CONTRAST CT DOSE: 281.59 mGy.cm HISTORY: Acute loss abdominal pain with GI bleed GI bleed TECHNIQUE: Multiaxial CT images of the abdomen and pelvis were performed following the IV administration of 94 cc of Optiray, A dose lowering technique was utilized adhering to the principles of ALARA. COMPARISON STUDY: Chest radiograph and left hip radiographs 02/04/2022 FINDINGS: Cardiomegaly with coronary artery calcifications. Trace pleural effusions. Right hemidiaphragmatic elevation with bibasilar consolidative densities. Study is degraded by respiratory motion artifact. The spleen, mildly atrophic pancreas and liver appear unremarkable. Cholecystectomy with mild to moderate intrahepatic and extrahepatic biliary ductal dilation, likely postsurgical. Thickening of the adrenal glands suggests hyperplasia. 1.4 cm left renal cyst. 1.0 cm right renal cyst. No hydronephrosis. Urinary bladder wall thickening with partial distention and perivesicular stranding. Heterogeneity of the uterus. Atherosclerosis of the aorta with mild infrarenal ectasia, 2.5 x 2.1 cm. There is no lymphadenopathy identified. Distal esophageal wall thickening with small to moderate hiatal hernia. Trace free fluid within the pelvis with perirectal inflammatory stranding. Marked fecal retention of the rectum with rectal wall thickening. Mild tortuosity of the sigmoid. There is at least moderate fecal retention throughout the remainder of the large bowel. Colonic diverticulosis without acute diverticulitis. The appendix is not definitively seen. No secondary signs of acute appendicitis. Unremarkable soft tissues. Degenerative changes of the spine, pelvis and left hip. Surgical clips of the left breast. Acute intertrochanteric fracture of the left femur redemonstrated with intertrochanteric nail with medullary esmer. Grade 1 anterolisthesis L4 on L5 is likely secondary to chronic facet arthrosis. T12 burst fracture with 10 mm retropulsion is noted without paravertebral edema. The retropulsion at this level results in at least mild central canal stenosis. IMPRESSION: 1. Constipation with marked fecal retention of the rectum. Findings are compatible with associated stercoral proctitis with rectal wall thickening, perirectal inflammatory stranding and trace pelvic ascites. 2. Small pleural effusions with bibasilar consolidation suggestive of atelectasis. Pneumonia would be difficult to exclude. 3. Fixated acute intertrochanteric left femoral fracture. 4. T12 burst fracture with 10 mm retropulsion is technically age-indeterminate however appears chronic. 5. Additional findings as above. ACT 112: Negative or not required by law.
[2022-02-10] MEDS: CIPROFLOXACIN / D5W 400 MG/200 ML BAG IV SCH (20:54)
[2022-02-10] MEDS: DOCUSATE SODIUM/SENNA 50/8.6MG TAB PO SCH (20:55)
[2022-02-11] MEDS: ACETAMINOPHEN 500 MG TAB PO SCH ×3 (05:18→21:01)
[2022-02-11 05:55] LABS: Hematocrit (blood only) 26.8 % (37-47); Hemoglobin 8.6 g/dL (12.0-16.0); Mean Corpuscular Hemoglobin 27.7 pg (25-34); Mean Corpuscular Hgb Conc 32.1 g/dL (32-36); Mean Corpuscular Volume 86.5 fL (80-100); Mean Platelet Volume 8.4 fL (7.4-10.4); Platelet Count 512 K/uL (130-400); RDW Standard Deviation 47.7 fL (36.4-46.3)
[2022-02-11 06:16] LABS: BUN Creatinine Ratio 43.5 (10-20); Calcium 9.2 mg/dl (8.5-10.1); Creatinine Clr Calc Pharmacy 69.9 ml/min; Est GFR (African American) 106.6 ml/min; Potassium 3.8 mmol/L (3.5-5.1)
[2022-02-11] MEDS: CITALOPRAM 20 MG TAB PO SCH (08:12)
[2022-02-11] MEDS: amLODIPine BESYLATE 5 MG TAB PO SCH (08:12)
[2022-02-11] MEDS: GABAPENTIN 100 MG CAP PO SCH ×2 (08:12→20:41)
[2022-02-11] MEDS: LORATADINE 10 MG TAB PO SCH (08:12)
[2022-02-11] MEDS: PANTOprazole 40 MG TAB PO SCH ×2 (08:12→20:39)
[2022-02-11] MEDS: CHOLECALCIFEROL 5,000 UNITS 125 MCG TAB PO SCH (08:12)
[2022-02-11] MEDS: PSYLLIUM or GUAR GUM FIBER POWDER PACKET PO SCH (08:12)
[2022-02-11] MEDS: SACCHAROMYCES BOULARDII 250 MG CAP PO SCH ×2 (08:12→20:39)
[2022-02-11] MEDS: LIDOCAINE 5% 1 PATCH TD SCH (08:13)
[2022-02-11] MEDS: CIPROFLOXACIN / D5W 400 MG/200 ML BAG IV SCH (08:13)
[2022-02-11] MEDS: FAMOTIDINE 20 MG TAB PO SCH ×2 (08:13→20:40)
[2022-02-11] MEDS: bisacodyL 10 MG SUPP PR SCH (08:23)
[2022-02-11] MEDS: oxyCODONE HCL IR 5 MG TAB (IMMEDIATE RELEASE) PO PRN (08:23)
[2022-02-11] MEDS ORDERED: MAGNESIUM HYDROXIDE SUSP 30 ML UDC PO SCH (10:00)
[2022-02-11] MEDS: POLYETHYLENE (MIRALAX) 17 GM PACK PO SCH ×2 (10:43→20:40)
--- NOTE | 2022-02-11 13:07 | Hospitalist Progress Note ---
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 PRN oxycodone (patient with listed allergy to Tramadol). d/c lidoderm patch (patient complains of allergy to patch) Now s/p Intramedullary Nail Fixation Left Hip(Left) - 02/04/22-- Kevan K[facility], courtney discontinued 02/07 PT/OT recommends SNF Acute blood loss anemia/postop anemia -Partially dilutional, after IVF - Pre-op Hemoglobin about 8-->6.7 -s/p 1 unit of PRBCs 02/05 -several episodes of maroon colored stools while here, SQ lovenox on hold -H/H has remained stable Stercoral colitis Moderate constipation Rectal fecal impaction -Manual disimpaction today with mod-large volume soft, brown stool removed -Miralax BID, Senna QHS -Presence of stool remains in rectal vault beyond reach, patient may need enema later today if no BM with laxatives -continue with IV ciprofloxacin for prophylaxis with her rising WBC Hyponatremia -improved -appreciate Nephrology input, 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 continue Urea and Sodium tablets Vitamin D deficiency -continue supplement Possible UTI -Recent Sx, UA normal. finished 4 days of ciprofloxacin. 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 Dementia Monitor for delirium Reorient frequently Failure to thrive -trial of marinol Pt's daughter, Jo-Ann Lee [phone] updated DVT Prophylaxis SCDs, Lovenox held for now Disposition-- discharge to [facility] tomorrow Admission and Anticipated Discharge Date Admission Date: February 02, [address] A/P were reviewed with daughter Patient has not had a significant BM despite aggressive bowel regimen and Dulcolax suppository. Has had maroon colored smears This morning, with help of nursing and patient consent, I performed a bedside rectal disimpaction. Moderate-large volume of soft brown stool coated with maroon/jello colored mucous was removed Immediately, patient felt relieve of her rectal distension Physical Exam Physical Exam: Appears frail, elderly, non toxic appearing Respiratory: breathing comfortably, no wheezing/rhonchi/rales Cardiovascular: regular rate and rhythm, no murmurs/rubs/gallops Gastrointestinal (Abdomen): Hypoactive, soft Genitourinary: rectal exam- mod-large volume soft, brown colored stool was manually removed, stool was coated with maroon/jello colored mucous. Beyond the reach of my fingers, stool can still be felt in the rectal vault Results & Data Results & Data ([facility]) Vital Signs (Past 12 Hours) Vital Signs Temp Pulse Pulse Resp BP BP Pulse Ox 02/11/22 11:49 36.6 C 85 18 94/56 L 98 02/11/22 07:21 36.9 C 95 H 20 121/73 97 02/11/22 07:07 95 H 02/11/22 03:57 36.8 C 109 H 20 135/72 95 Laboratory Results Short CBC 02/11/22 Range/Units 05:16 WBC 18.20 H (4.8-10.8) K/uL Hgb 8.6 L (12.0-16.0) g/dL Hct 26.8 L (37-47) % Plt Count 512 H (130-400) K/uL BMP 02/11/22 05:16 Sodium 133 L Potassium 3.8 Chloride 100 Carbon Dioxide 27 BUN 20 Creatinine 0.46 L Glucose 116 H Calcium 9.2 Medications Administered Current Inpatient Medications Acetaminophen (Acetaminophen 500 Mg Tab) 1,000 mg PO Q8 SELIN Stop: 03/04/22 21:59 Last Admin: 02/11/22 05:18 Dose: 1,000 mg Documented by: Amlodipine Besylate (Amlodipine Besylate 5 Mg Tab) 2.5 mg PO QAM SELIN Stop: 03/11/22 08:59 Last Admin: 02/11/22 08:12 Dose: 2.5 mg Documented by: Citalopram Hydrobromide (Citalopram 20 Mg Tab) 10 mg PO QAM SELIN Stop: 03/05/22 08:59 Last Admin: 02/11/22 08:12 Dose: 10 mg Documented by: Dronabinol (Dronabinol 2.5 Mg Cap) 2.5 mg PO BID SELIN Stop: 03/12/22 20:59 Last Admin: 02/11/22 08:23 Dose: 2.5 mg Documented by: Enoxaparin Sodium (Enoxaparin Inj 40 Mg/0.4 Ml Syr) 40 mg SQ Q24H [facility] Stop: 03/06/22 12:44 Last Admin: 02/08/22 20:50 Dose: 40 mg Documented by: Famotidine (Famotidine 20 Mg Tab) 20 mg PO BID [facility] Stop: 03/09/22 20:59 Last Admin: 02/11/22 08:13 Dose: 20 mg Documented by: Gabapentin (Gabapentin 100 Mg Cap) 100 mg PO BID [facility] Stop: 03/09/22 09:14 Last Admin: 02/11/22 08:12 Dose: 100 mg Documented by: Ciprofloxacin (Cipro / D5w) 400 mg in 200 mls @ 100 mls/hr IV Q12 [facility]; Protocol Stop: 02/20/22 20:29 Last Infusion: 02/11/22 10:49 Dose: Infused Documented by: Levalbuterol HCl (Levalbuterol Hcl 0.63 Mg/3 Ml Neb) 0.63 mg NEB Q4H PRN; Protocol PRN Reason: Shortness Of Breath Or Wheezing Stop: 03/06/22 19:29 Last Admin: 02/05/22 03:21 Dose: 0.63 mg Documented by: Lidocaine (Lidocaine 5% 1 Patch) 1 patch TD QAM [facility] Stop: 03/05/22 11:59 Last Admin: 02/11/22 08:13 Dose: 1 patch Documented by: Loratadine (Loratadine 10 Mg Tab) 10 mg PO QAM [facility] Stop: 03/05/22 08:59 Last Admin: 02/11/22 08:12 Dose: 10 mg Documented by: Miscellaneous (Remove Lidoderm Patch) 1 ea N/A DAILY@2100 [facility] Stop: 03/05/22 22:59 Last Admin: 02/10/22 20:57 Dose: Not Given Documented by: Naloxone HCl (Naloxone Hcl 0.4 Mg/1 Ml Vial/Carp) 0.1 mg IV UD PRN PRN Reason: Opiate Overdose Stop: 03/04/22 19:42 Ondansetron HCl (Ondansetron Inj 2 Mg/Ml 2 Ml Vial) 4 mg IV Q6H PRN PRN Reason: Nausea Stop: 03/04/22 19:42 Last Admin: 02/09/22 21:23 Dose: 4 mg Documented by: Oxycodone HCl (Oxycodone Hcl Ir 5 Mg Tab (Immediate Release)) 5 mg PO Q6H PRN PRN Reason: Pain Stop: 02/21/22 09:15 Last Admin: 02/11/22 08:23 Dose: 5 mg Documented by: Pantoprazole Sodium (Pantoprazole 40 Mg Tab) 40 mg PO BID [facility] Stop: 03/11/22 20:59 Last Admin: 02/11/22 08:12 Dose: 40 mg Documented by: Polyethylene Glycol (Polyethylene (Miralax) 17 Gm Pack) 17 gm PO BID [facility] Stop: 02/16/22 10:29 Last Admin: 02/11/22 10:43 Dose: 17 gm Documented by: Psyllium Hydrophilic Mucilloid (Psyllium 58.6% Powder Packet) 1 pkt PO QAM [facility] Stop: 03/12/22 08:59 Last Admin: 02/11/22 08:12 Dose: 1 pkt Documented by: Saccharomyces Boulardii (Saccharomyces Boulardii 250 Mg Cap) 250 mg PO BID [facility] Stop: 02/13/22 08:59 Last Admin: 02/11/22 08:12 Dose: 250 mg Documented by: Senna/Docusate Sodium (Docusate Sodium/Senna 50/8.6mg Tab) 2 tab PO HS [facility] Stop: 03/04/22 20:59 Last Admin: 02/10/22 20:55 Dose: 2 tab Documented by: Vitamin D (Cholecalciferol 5,000 Units 125 Mcg Tab) 5,000 units PO QAM [facility] Stop: 03/11/22 08:59 Last Admin: 02/11/22 08:12 Dose: 5,000 units Documented by: (1) Closed intertrochanteric fracture of left hip Encounter type: initial encounter Fracture alignment: displaced Qualified Code(s): S72.142A - Displaced intertrochanteric fracture of left femur, initial encounter for closed fracture
[2022-02-11] MEDS ORDERED: PIPERACILL/TAZOBAC CONSULT ACTIVE PRN (13:30)
--- NOTE | 2022-02-11 13:30 | Surgery Progress Note ---
Date of Service February 11, 2022 Assessment & Plan (1) Proctitis: Plan: pt is a 81 year-old is S/P Intramedullary Nail Fixation Left Hip, POD 6, pt had CT scan today- finding- proctitis, with constipation, passed 3 times BM, IMP; proctitis, Plan, conservative treatment, start IV antibiotic, Cipro 400mg IV BiD X 7 days, may check C-diff if pt start have diarrhea, will F/U 02/11/2022, 1:27PM WBC go up to 18,000 check C-diff, add on zosyn, re-consult GI please for possible sigmoidoscopy, may need consult colorectal surgeon if pt's condition is getting worse, repeat labs in morning, will F/U, Admission and Anticipated Discharge Date Admission Date: February 02, 2022 Supervising Physician Co-Signing Physician Notes Admitted with a fall, with a bm after a few days of constipation. Suspect self limited brb could be from recent constipation Abd soft, razo's palsy changes on her face Agree with further plan of care. Subjective Results of CT A/P were reviewed with daughter Patient has not had a significant BM despite aggressive bowel regimen and Dulcolax suppository. Has had maroon colored smears This morning, with help of nursing and patient consent, I performed a bedside rectal disimpaction. Moderate-large volume of soft brown stool coated with maroon/jello colored mucous was removed Immediately, patient felt relieve of her rectal distension 02/11/2022 1:24PM f/u proctitis, after pt had large BM, pt denies rectal pain now, no fever, Physical Exam Constitutional: WD/WN, vitals as above Eyes: PERRL, conjunctivae normal, anicteric sclerae Neck: trachea midline, no thyromegaly Respiratory: normal respiratory effort, lungs clear to auscultation Cardiovascular: RRR, no murmur, no edema Gastrointestinal (Abdomen): abdomen, soft, NT, ND, rectal exam, with nurse help, some colored mucous on rectal area, no active bleeding, Neurologic: patellar DTR's 2+ bilat, sensation intact Psychiatric: Apperance: appeared stated age Results & Data ([facility]) Vital Signs (Past 12 Hours) Vital Signs Temp Pulse Pulse Resp BP BP Pulse Ox 02/11/22 11:49 36.6 C 85 18 94/56 L 98 02/11/22 07:21 36.9 C 95 H 20 121/73 97 02/11/22 07:07 95 H 02/11/22 03:57 36.8 C 109 H 20 135/72 95 Laboratory Results Abnormal lab results 02/11/22 02/11/22 Range/Units 05:16 05:16 WBC 18.20 H (4.8-10.8) K/uL RBC 3.10 L (4.2-5.4) M/uL Hgb 8.6 L (12.0-16.0) g/dL Hct 26.8 L (37-47) % RDW Std Deviation 47.7 H (36.4-46.3) fL RDW Coeff of Tyesha 15.0 H (11.5-14.5) % Plt Count 512 H (130-400) K/uL Sodium 133 L (136-145) mmol/L Creatinine 0.46 L (0.6-1.2) mg/dl BUN/Creatinine Ratio 43.5 H (10-20) Glucose 116 H (70-99(Fasting)) mg/dl
[2022-02-11] MEDS ORDERED: PIPERACILLIN/TAZOBACTAM 3.375 GM in DEXTROSE 5% 100 ML IV ONE (14:00)
[2022-02-11] MEDS ORDERED: MINERAL OIL ENEMA 133 ML BTL PR ONE (15:30)
[2022-02-11] MEDS: PIPERACILLIN/TAZOBACTAM 3.375 GM in DEXTROSE 5% 100 ML IV SCH (19:10)
[2022-02-11] MEDS: DOCUSATE SODIUM/SENNA 50/8.6MG TAB PO SCH (20:39)
[2022-02-11] MEDS ORDERED: POLYETHYLENE (MIRALAX) 17 GM PACK PO SCH (21:00)
[2022-02-12] MEDS: PIPERACILLIN/TAZOBACTAM 3.375 GM in DEXTROSE 5% 100 ML IV SCH ×3 (03:10→19:47)
[2022-02-12] MEDS: ACETAMINOPHEN 500 MG TAB PO SCH ×3 (05:09→21:00)
[2022-02-12 07:35] LABS: Basophils # (auto) 0.02 K/uL (0-0.2); Basophils % (auto) 0.1 %; Eosinophils # (auto) 0.18 K/uL (0-0.5); Eosinophils % (auto) 1.2 %; Hematocrit (blood only) 24.2 % (37-47); Hemoglobin 7.7 g/dL (12.0-16.0); Immature Granulocytes # (auto) 0.09 K/uL (0.00-0.02); Immature Granulocytes % (auto) 0.6 %; Lymphocytes % (auto) 8.3 %; Mean Corpuscular Hgb Conc 31.8 g/dL (32-36); Mean Platelet Volume 8.4 fL (7.4-10.4); Monocytes # (auto) 1.17 K/uL (0.11-0.59); Monocytes % (auto) 8.1 %; Neutrophils # (auto) 11.78 K/uL (1.4-6.5); Neutrophils % (auto) 81.7 %; Platelet Count 482 K/uL (130-400); RDW Coefficient of Variation 15.2 % (11.5-14.5); RDW Standard Deviation 49.5 fL (36.4-46.3); Red Blood Count 2.75 M/uL (4.2-5.4); White Blood Count 14.44 K/uL (4.8-10.8)
[2022-02-12 07:38] LABS: BUN Creatinine Ratio 38.3 (10-20); Calcium 9.2 mg/dl (8.5-10.1); Creatinine Clr Calc Pharmacy 58.7 ml/min; Est GFR (African American) 97.7 ml/min; Est GFR (Non-African American) 84.3 ml/min; Magnesium 1.8 mg/dl (1.7-2.4); Potassium 3.8 mmol/L (3.5-5.1)
[2022-02-12] MEDS: CHOLECALCIFEROL 5,000 UNITS 125 MCG TAB PO SCH (07:44)
[2022-02-12] MEDS: CITALOPRAM 20 MG TAB PO SCH (07:45)
[2022-02-12] MEDS: amLODIPine BESYLATE 5 MG TAB PO SCH (07:45)
[2022-02-12 07:46] LABS: RBC Morphology Unremarkable
[2022-02-12] MEDS: SACCHAROMYCES BOULARDII 250 MG CAP PO SCH ×2 (07:46→20:43)
[2022-02-12] MEDS: PANTOprazole 40 MG TAB PO SCH ×2 (07:46→20:43)
[2022-02-12] MEDS: LIDOCAINE 5% 1 PATCH TD SCH (07:46)
[2022-02-12] MEDS: LORATADINE 10 MG TAB PO SCH (07:46)
[2022-02-12] MEDS: FAMOTIDINE 20 MG TAB PO SCH ×2 (07:47→20:43)
[2022-02-12] MEDS: POLYETHYLENE (MIRALAX) 17 GM PACK PO SCH ×2 (07:47→20:43)
[2022-02-12] MEDS: PSYLLIUM or GUAR GUM FIBER POWDER PACKET PO SCH (07:47)
[2022-02-12] MEDS: GABAPENTIN 100 MG CAP PO SCH ×2 (07:47→20:43)
[2022-02-12 14:19] LABS: Hematocrit (blood only) 24.5 % (37-47); Hemoglobin 7.8 g/dL (12.0-16.0); Mean Corpuscular Hemoglobin 27.6 pg (25-34); Mean Corpuscular Hgb Conc 31.8 g/dL (32-36); Mean Corpuscular Volume 86.6 fL (80-100); Mean Platelet Volume 8.3 fL (7.4-10.4); Platelet Count 458 K/uL (130-400); RDW Coefficient of Variation 15.1 % (11.5-14.5); RDW Standard Deviation 48.1 fL (36.4-46.3); Red Blood Count 2.83 M/uL (4.2-5.4); White Blood Count 14.54 K/uL (4.8-10.8)
--- NOTE | 2022-02-12 15:01 | Surgery Progress Note ---
Date of Service February 12, 2022 Assessment & Plan (1) Proctitis: Plan: pt is a 81 year-old is S/P Intramedullary Nail Fixation Left Hip, POD 6, pt had CT scan today- finding- proctitis, with constipation, passed 3 times BM, IMP; proctitis, Plan, conservative treatment, start IV antibiotic, Cipro 400mg IV BiD X 7 days, may check C-diff if pt start have diarrhea, will F/U 02/11/2022, 1:27PM WBC go up to 18,000 check C-diff, add on zosyn, re-consult GI please for possible sigmoidoscopy, may need consult colorectal surgeon if pt's condition is getting worse, repeat labs in morning, will F/U, 02/12/2022 2:59PM pt is doing better, no fever, no rectal pain, no surgery indication now, may need consult colorectal surgeon if pt's condition is getting worse, sign off today, please call with questions, thanks, Admission and Anticipated Discharge Date Admission Date: February 02, 2022 Supervising Physician Co-Signing Physician Notes Admitted with a fall, with a bm after a few days of constipation. Suspect self limited brb could be from recent constipation Abd soft, razo's palsy changes on her face Agree with further plan of care. Subjective Results of CT A/P were reviewed with daughter Patient has not had a significant BM despite aggressive bowel regimen and Dulcolax suppository. Has had maroon colored smears This morning, with help of nursing and patient consent, I performed a bedside rectal disimpaction. Moderate-large volume of soft brown stool coated with maroon/jello colored mucous was removed Immediately, patient felt relieve of her rectal distension 02/11/2022 1:24PM f/u proctitis, after pt had large BM, pt denies rectal pain now, no fever, 02/12/2022 2:57PM f/u proctitis, pt denies rectal pain now, no fever, WBC 14,000 Physical Exam Constitutional: WD/WN, vitals as above Eyes: PERRL, conjunctivae normal, anicteric sclerae Neck: trachea midline, no thyromegaly Respiratory: normal respiratory effort, lungs clear to auscultation Cardiovascular: RRR, no murmur, no edema Gastrointestinal (Abdomen): rectal exam- no active rectal bleeding, Neurologic: patellar DTR's 2+ bilat, sensation intact Psychiatric: Apperance: appeared stated age Results & Data ([facility]) Vital Signs (Past 12 Hours) Vital Signs Temp Pulse Pulse Resp BP Pulse Ox 02/12/22 11:11 36.5 C 78 18 121/68 98 02/12/22 07:06 71 02/12/22 06:45 36.6 C 78 20 121/69 98 02/12/22 03:16 36.7 C 88 20 115/68 96 Laboratory Results Abnormal lab results 02/12/22 02/12/22 02/12/22 Range/Units 06:57 06:57 13:48 WBC 14.44 H 14.54 H (4.8-10.8) K/uL RBC 2.75 L 2.83 L (4.2-5.4) M/uL Hgb 7.7 L 7.8 L (12.0-16.0) g/dL Hct 24.2 L 24.5 L (37-47) % MCHC 31.8 L 31.8 L (32-36) g/dL RDW Std Deviation 49.5 H 48.1 H (36.4-46.3) fL RDW Coeff of Tyesha 15.2 H 15.1 H (11.5-14.5) % Plt Count 482 H 458 H (130-400) K/uL Neut # (Auto) 11.78 H (1.4-6.5) K/uL Baldwin # (Auto) 1.17 H (0.11-0.59) K/uL Immature Gran # (Auto) 0.09 H (0.00-0.02) K/uL Sodium 132 L (136-145) mmol/L BUN/Creatinine Ratio 38.3 H (10-20) Glucose 110 H (70-99(Fasting)) mg/dl
[2022-02-12] MEDS: oxyCODONE HCL IR 5 MG TAB (IMMEDIATE RELEASE) PO PRN (15:52)
--- NOTE | 2022-02-12 18:03 | Hospitalist Progress Note ---
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 PRN oxycodone (patient with listed allergy to Tramadol). d/c lidoderm patch (patient complains of allergy to patch) Now s/p Intramedullary Nail Fixation Left Hip(Left) - 02/04/22-- DO sherwin Chavis discontinued 02/07 PT/OT recommends SNF Acute blood loss anemia/postop anemia - Pre-op Hemoglobin about 8-->6.7 -s/p 1 unit of PRBCs 02/05 -several episodes of maroon colored stools while here, SQ lovenox on hold -1 gram Hb drop overnight. Repeat this afternoon remains stable Stercoral colitis Moderate constipation Rectal fecal impaction -Manual disimpaction 02/11 with mod-large volume soft, brown stool removed -Miralax BID, Senna QHS -s/p fleet enema 02/11 with resulting multiple moderate volume loose stool -continue with zosyn for now for empiric coverage of stercoral colitis. 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 continue Urea and Sodium tablets Vitamin D deficiency -continue supplement Possible UTI -Recent Sx, UA normal. finished 4 days of ciprofloxacin. 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 Dementia Monitor for delirium Reorient frequently Failure to thrive -trial of marinol DVT Prophylaxis SCDs, Lovenox held for now Disposition-- discharge to [facility] tomorrow Admission and Anticipated Discharge Date Admission Date: February 02, 2022 Subjective Patient reports soreness in her bottom but denies rectal distension or pain like previous Large volume amount of stool removed via manual disimpaction yesterday Subsequent fleets enema with resulting 2 large soft liquid brown BM Patient tolerated breakfast well Physical Exam Physical Exam: appears thin, frail, elderly but no acute distress Respiratory: breathing comfortably on room air, no wheezing/rhonchi Cardiovascular: regular rate and rhythm, no murmurs/rubs/gallops Gastrointestinal (Abdomen): soft, non tender Musculoskeletal: no edema Neurologic: awake, alert, chronic left facial palsy Results & Data Results & Data ([facility]) Vital Signs (Past 12 Hours) Vital Signs Temp Pulse Pulse Resp BP BP Pulse Ox 02/12/22 15:32 37.1 C 97 H 18 110/66 95 02/12/22 15:00 97 H 02/12/22 11:11 36.5 C 78 18 121/68 98 02/12/22 07:06 71 02/12/22 06:45 36.6 C 78 20 121/69 98 Laboratory Results Short CBC 02/12/22 02/12/22 Range/Units 06:57 13:48 WBC 14.44 H 14.54 H (4.8-10.8) K/uL Hgb 7.7 L 7.8 L (12.0-16.0) g/dL Hct 24.2 L 24.5 L (37-47) % Plt Count 482 H 458 H (130-400) K/uL BMP 02/12/22 06:57 Sodium 132 L Potassium 3.8 Chloride 98 Carbon Dioxide 29 BUN 23 Creatinine 0.60 Glucose 110 H Calcium 9.2 Medications Administered Current Inpatient Medications Acetaminophen (Acetaminophen 500 Mg Tab) 1,000 mg PO Q8 [facility] Stop: 03/04/22 21:59 Last Admin: 02/12/22 13:54 Dose: 1,000 mg Documented by: Amlodipine Besylate (Amlodipine Besylate 5 Mg Tab) 2.5 mg PO QAM [facility] Stop: 03/11/22 08:59 Last Admin: 02/12/22 07:45 Dose: 2.5 mg Documented by: Citalopram Hydrobromide (Citalopram 20 Mg Tab) 10 mg PO QAM [facility] Stop: 03/05/22 08:59 Last Admin: 02/12/22 07:45 Dose: 10 mg Documented by: Dronabinol (Dronabinol 2.5 Mg Cap) 2.5 mg PO BID [facility] Stop: 03/12/22 20:59 Last Admin: 02/12/22 08:56 Dose: 2.5 mg Documented by: Enoxaparin Sodium (Enoxaparin Inj 40 Mg/0.4 Ml Syr) 40 mg SQ Q24H [facility] Stop: 03/06/22 12:44 Last Admin: 02/08/22 20:50 Dose: 40 mg Documented by: Famotidine (Famotidine 20 Mg Tab) 20 mg PO BID [facility] Stop: 03/09/22 20:59 Last Admin: 02/12/22 07:47 Dose: 20 mg Documented by: Gabapentin (Gabapentin 100 Mg Cap) 100 mg PO BID [facility] Stop: 03/09/22 09:14 Last Admin: 02/12/22 07:47 Dose: 100 mg Documented by: Piperacillin Sod/Tazobactam (Sod 3.375 gm/ Dextrose) 115 mls @ 28.75 mls/hr IV Q8H [facility]; Protocol Stop: 02/21/22 19:59 Last Infusion: 02/12/22 16:15 Dose: Infused Documented by: Levalbuterol HCl (Levalbuterol Hcl 0.63 Mg/3 Ml Neb) 0.63 mg NEB Q4H PRN; Protocol PRN Reason: Shortness Of Breath Or Wheezing Stop: 03/06/22 19:29 Last Admin: 02/05/22 03:21 Dose: 0.63 mg Documented by: Lidocaine (Lidocaine 5% 1 Patch) [facility] Stop: 03/05/22 11:59 Last Admin: 02/12/22 07:46 Dose: 1 patch Documented by: Loratadine (Loratadine 10 Mg Tab) 10 mg PO QAM [facility] Stop: 03/05/22 08:59 Last Admin: 02/12/22 07:46 Dose: 10 mg Documented by: Miscellaneous (Remove Lidoderm Patch) 1 ea N/A DAILY@2100 [facility] Stop: 03/05/22 22:59 Last Admin: 02/11/22 20:41 Dose: 1 ea Documented by: Miscellaneous Information (Piperacill/Tazobac Consult Active) 1 ea N/A UD PRN PRN Reason: Consult Stop: 03/13/22 13:29 Naloxone HCl (Naloxone Hcl 0.4 Mg/1 Ml Vial/Carp) 0.1 mg IV UD PRN PRN Reason: Opiate Overdose Stop: 03/04/22 19:42 Ondansetron HCl (Ondansetron Inj 2 Mg/Ml 2 Ml Vial) 4 mg IV Q6H PRN PRN Reason: Nausea Stop: 03/04/22 19:42 Last Admin: 02/09/22 21:23 Dose: 4 mg Documented by: Oxycodone HCl (Oxycodone Hcl Ir 5 Mg Tab (Immediate Release)) 5 mg PO Q6H PRN PRN Reason: Pain Stop: 02/21/22 09:15 Last Admin: 02/12/22 15:52 Dose: 5 mg Documented by: Pantoprazole Sodium (Pantoprazole 40 Mg Tab) 40 mg PO BID [facility] Stop: 03/11/22 20:59 Last Admin: 02/12/22 07:46 Dose: 40 mg Documented by: Polyethylene Glycol (Polyethylene (Miralax) 17 Gm Pack) 17 gm PO BID [facility] Stop: 02/16/22 10:29 Last Admin: 02/12/22 07:47 Dose: 17 gm Documented by: Psyllium Hydrophilic Mucilloid (Psyllium 58.6% Powder Packet) 1 pkt PO QAM [facility] Stop: 03/12/22 08:59 Last Admin: 02/12/22 07:47 Dose: 1 pkt Documented by: Saccharomyces Boulardii (Saccharomyces Boulardii 250 Mg Cap) 250 mg PO BID [facility] Stop: 02/13/22 08:59 Last Admin: 02/12/22 07:46 Dose: 250 mg Documented by: Senna/Docusate Sodium (Docusate Sodium/Senna 50/8.6mg Tab) 2 tab PO HS [facility] Stop: 03/04/22 20:59 Last Admin: 02/11/22 20:39 Dose: 2 tab Documented by: Vitamin D (Cholecalciferol 5,000 Units 125 Mcg Tab) 5,000 units PO QAM [facility] Stop: 03/11/22 08:59 Last Admin: 02/12/22 07:44 Dose: 5,000 units Documented by: (1) Closed intertrochanteric fracture of left hip Encounter type: initial encounter Fracture alignment: displaced Qualified Code(s): S72.142A - Displaced intertrochanteric fracture of left femur, initial encounter for closed fracture
[2022-02-12] MEDS: DOCUSATE SODIUM/SENNA 50/8.6MG TAB PO SCH (20:42)
[2022-02-13] MEDS: PIPERACILLIN/TAZOBACTAM 3.375 GM in DEXTROSE 5% 100 ML IV SCH ×3 (03:19→21:00)
[2022-02-13] MEDS: ACETAMINOPHEN 500 MG TAB PO SCH ×3 (05:11→21:00)
[2022-02-13 07:49] LABS: Basophils # (auto) 0.02 K/uL (0-0.2); Basophils % (auto) 0.2 %; Eosinophils # (auto) 0.18 K/uL (0-0.5); Eosinophils % (auto) 1.9 %; Hematocrit (blood only) 22.5 % (37-47); Hemoglobin 7.1 g/dL (12.0-16.0); Immature Granulocytes # (auto) 0.04 K/uL (0.00-0.02); Immature Granulocytes % (auto) 0.4 %; Lymphocytes # (auto) 0.91 K/uL (1.2-3.4); Lymphocytes % (auto) 9.7 %; Mean Corpuscular Hemoglobin 27.8 pg (25-34); Mean Corpuscular Hgb Conc 31.6 g/dL (32-36); Mean Corpuscular Volume 88.2 fL (80-100); Mean Platelet Volume 8.3 fL (7.4-10.4); Monocytes # (auto) 1.19 K/uL (0.11-0.59); Monocytes % (auto) 12.7 %; Neutrophils # (auto) 7.02 K/uL (1.4-6.5); Neutrophils % (auto) 75.1 %; Platelet Count 474 K/uL (130-400); RDW Coefficient of Variation 15.2 % (11.5-14.5); RDW Standard Deviation 49.6 fL (36.4-46.3); Red Blood Count 2.55 M/uL (4.2-5.4); White Blood Count 9.36 K/uL (4.8-10.8)
[2022-02-13] MEDS: ONDANSETRON INJ 2 MG/ML 2 ML VIAL IV PRN (08:27)
[2022-02-13] MEDS ORDERED: SODIUM CHLORIDE 0.9% 250 ML IV PRN (08:32)
[2022-02-13] MEDS: amLODIPine BESYLATE 5 MG TAB PO SCH (08:34)
[2022-02-13] MEDS: CHOLECALCIFEROL 5,000 UNITS 125 MCG TAB PO SCH (08:35)
[2022-02-13] MEDS: CITALOPRAM 20 MG TAB PO SCH (08:35)
[2022-02-13] MEDS: FAMOTIDINE 20 MG TAB PO SCH ×2 (08:35→20:26)
[2022-02-13] MEDS: GABAPENTIN 100 MG CAP PO SCH ×2 (08:36→20:26)
[2022-02-13] MEDS: PSYLLIUM or GUAR GUM FIBER POWDER PACKET PO SCH (08:36)
[2022-02-13] MEDS: LORATADINE 10 MG TAB PO SCH (08:36)
[2022-02-13] MEDS: PANTOprazole 40 MG TAB PO SCH ×2 (08:36→20:26)
[2022-02-13] MEDS: POLYETHYLENE (MIRALAX) 17 GM PACK PO SCH ×2 (08:36→20:26)
[2022-02-13] MEDS: LIDOCAINE 5% 1 PATCH TD SCH (08:40)
[2022-02-13 09:15] LABS: BUN Creatinine Ratio 25.9 (10-20); Calcium 8.9 mg/dl (8.5-10.1); Creatinine Clr Calc Pharmacy 60.7 ml/min; Est GFR (African American) 98.8 ml/min; Est GFR (Non-African American) 85.2 ml/min; Magnesium 1.9 mg/dl (1.7-2.4); Potassium 3.9 mmol/L (3.5-5.1)
--- NOTE | 2022-02-13 15:28 | Hospitalist Progress Note ---
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 PRN oxycodone (patient with listed allergy to Tramadol). d/c lidoderm patch (patient complains of allergy to patch) Now s/p Intramedullary Nail Fixation Left Hip(Left) - 02/04/22-- Kevan Kc, DO courtney discontinued 02/07 PT/OT recommends SNF Acute blood loss anemia - Pre-op Hemoglobin about 8-->6.7 -s/p 1 unit of PRBCs 02/05 -several episodes of maroon colored stools while here, SQ lovenox on hold -Hb 7.1 today, will give 1 unit pRBC -Appreciate GI input Stercoral colitis Moderate constipation Rectal fecal impaction -Manual disimpaction 02/11 with mod-large volume soft, brown stool removed -Miralax BID, Senna QHS -s/p fleet enema 02/11 with resulting multiple moderate volume loose stool -now continues to have frequent small BM. 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 continue Urea and Sodium tablets Vitamin D deficiency -continue supplement Possible UTI -Recent Sx, UA normal. finished 4 days of ciprofloxacin. 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 Dementia Monitor for delirium Reorient frequently Failure to thrive -trial of marinol DVT Prophylaxis SCDs, Lovenox held for now Disposition-- discharge to [facility] when H/H remains stable Admission and Anticipated Discharge Date Admission Date: February 02, 2022 Subjective Getting another 1 unit pRBC today Still with frequent small BMs, brown in color Physical Exam Physical Exam: Thin, Frail, pale Respiratory: Breathing comfortably, no wheezing/rhonchi/rales Cardiovascular: regular rate and rhythm, no murmurs/rubs Gastrointestinal (Abdomen): soft, non tender Musculoskeletal: no edema Neurologic: awake, able to answer simple questions, left facial palsy Results & Data Results & Data ([facility]) Vital Signs (Past 12 Hours) Vital Signs Temp Pulse Pulse Resp BP BP Pulse Ox 02/13/22 14:56 37.8 C H 103 H 18 154/79 H 98 02/13/22 13:32 37.1 C 96 H 18 134/74 99 02/13/22 12:30 36.8 C 97 H 16 126/75 92 02/13/22 12:01 36.9 C 96 H 18 126/69 96 02/13/22 11:32 36.7 C 85 16 134/75 100 02/13/22 11:17 36.8 C 90 16 125/84 98 02/13/22 11:00 36.6 C 83 16 130/73 99 02/13/22 06:34 36.9 C 89 20 143/75 H 95 02/13/22 03:45 37.0 C 89 18 123/76 95 Laboratory Results Short CBC 02/13/22 Range/Units 07:11 WBC 9.36 (4.8-10.8) K/uL Hgb 7.1 L (12.0-16.0) g/dL Hct 22.5 L (37-47) % Plt Count 474 H (130-400) K/uL BMP 02/13/22 07:11 Sodium 133 L Potassium 3.9 Chloride 99 Carbon Dioxide 28 BUN 15 Creatinine 0.58 L Glucose 104 H Calcium 8.9 Medications Administered Current Inpatient Medications Acetaminophen (Acetaminophen 500 Mg Tab) 1,000 mg PO Q8 [facility] Stop: 03/04/22 21:59 Last Admin: 02/13/22 13:34 Dose: Not Given Documented by: Amlodipine Besylate (Amlodipine Besylate 5 Mg Tab) 2.5 mg PO QAM [facility] Stop: 03/11/22 08:59 Last Admin: 02/13/22 08:34 Dose: 2.5 mg Documented by: Citalopram Hydrobromide (Citalopram 20 Mg Tab) 10 mg PO QAM [facility] Stop: 03/05/22 08:59 Last Admin: 02/13/22 08:35 Dose: 10 mg Documented by: Dronabinol (Dronabinol 2.5 Mg Cap) 2.5 mg PO BID [facility] Stop: 03/12/22 20:59 Last Admin: 02/13/22 08:35 Dose: 2.5 mg Documented by: Enoxaparin Sodium (Enoxaparin Inj 40 Mg/0.4 Ml Syr) 40 mg SQ Q24H [facility] Stop: 03/06/22 12:44 Last Admin: 02/08/22 20:50 Dose: 40 mg Documented by: Famotidine (Famotidine 20 Mg Tab) 20 mg PO BID [facility] Stop: 03/09/22 20:59 Last Admin: 02/13/22 08:35 Dose: 20 mg Documented by: Gabapentin (Gabapentin 100 Mg Cap) 100 mg PO BID [facility] Stop: 03/09/22 09:14 Last Admin: 02/13/22 08:36 Dose: 100 mg Documented by: Piperacillin Sod/Tazobactam (Sod 3.375 gm/ Dextrose) 115 mls @ 28.75 mls/hr IV Q8H [facility]; Protocol Stop: 02/21/22 19:59 Last Admin: 02/13/22 14:59 Dose: 28.8 mls/hr Documented by: Sodium Chloride (Nss) 250 mls @ 15 mls/hr IV .[id number] PRN PRN Reason: For Transfusion Stop: 02/13/22 18:32 Levalbuterol HCl (Levalbuterol Hcl 0.63 Mg/3 Ml Neb) 0.63 mg NEB Q4H PRN; Protocol PRN Reason: Shortness Of Breath Or Wheezing Stop: 03/06/22 19:29 Last Admin: 02/05/22 03:21 Dose: 0.63 mg Documented by: Lidocaine (Lidocaine 5% 1 Patch) 1 patch TD QAM [facility] Stop: 03/05/22 11:59 Last Admin: 02/13/22 08:40 Dose: Not Given Documented by: Loratadine (Loratadine 10 Mg Tab) 10 mg PO QAM [facility] Stop: 03/05/22 08:59 Last Admin: 02/13/22 08:36 Dose: 10 mg Documented by: Miscellaneous (Remove Lidoderm Patch) 1 ea N/A DAILY@2100 [facility] Stop: 03/05/22 22:59 Last Admin: 02/12/22 20:43 Dose: 1 ea Documented by: Miscellaneous Information (Piperacill/Tazobac Consult Active) 1 ea N/A UD PRN PRN Reason: Consult Stop: 03/13/22 13:29 Naloxone HCl (Naloxone Hcl 0.4 Mg/1 Ml Vial/Carp) 0.1 mg IV UD PRN PRN Reason: Opiate Overdose Stop: 03/04/22 19:42 Ondansetron HCl (Ondansetron Inj 2 Mg/Ml 2 Ml Vial) 4 mg IV Q6H PRN PRN Reason: Nausea Stop: 03/04/22 19:42 Last Admin: 02/13/22 08:27 Dose: 4 mg Documented by: Oxycodone HCl (Oxycodone Hcl Ir 5 Mg Tab (Immediate Release)) 5 mg PO Q6H PRN PRN Reason: Pain Stop: 02/21/22 09:15 Last Admin: 02/12/22 15:52 Dose: 5 mg Documented by: Pantoprazole Sodium (Pantoprazole 40 Mg Tab) 40 mg PO BID [facility] Stop: 03/11/22 20:59 Last Admin: 02/13/22 08:36 Dose: 40 mg Documented by: Polyethylene Glycol (Polyethylene (Miralax) 17 Gm Pack) 17 gm PO BID [facility] Stop: 02/16/22 10:29 Last Admin: 02/13/22 08:36 Dose: 17 gm Documented by: Psyllium Hydrophilic Mucilloid (Psyllium 58.6% Powder Packet) 1 pkt PO QAM [facility] Stop: 03/12/22 08:59 Last Admin: 02/13/22 08:36 Dose: 1 pkt Documented by: Senna/Docusate Sodium (Docusate Sodium/Senna 50/8.6mg Tab) 2 tab PO HS [facility] Stop: 03/04/22 20:59 Last Admin: 02/12/22 20:42 Dose: 2 tab Documented by: Vitamin D (Cholecalciferol 5,000 Units 125 Mcg Tab) 5,000 units PO QAM [facility] Stop: 03/11/22 08:59 Last Admin: 02/13/22 08:35 Dose: 5,000 units Documented by: (1) Closed intertrochanteric fracture of left hip Encounter type: initial encounter Fracture alignment: displaced Qualified Code(s): S72.142A - Displaced intertrochanteric fracture of left femur, initial encounter for closed fracture
[2022-02-13] MEDS ORDERED: ACETAMINOPHEN 325 MG TAB PO ONE (15:47)
[2022-02-13] MEDS: DOCUSATE SODIUM/SENNA 50/8.6MG TAB PO SCH (20:26)
[2022-02-14] MEDS: PIPERACILLIN/TAZOBACTAM 3.375 GM in DEXTROSE 5% 100 ML IV SCH (03:35)
[2022-02-14] MEDS: ACETAMINOPHEN 500 MG TAB PO SCH ×3 (05:55→21:53)
[2022-02-14 05:59] LABS: Hematocrit (blood only) 28.4 % (37-47); Mean Corpuscular Hemoglobin 27.6 pg (25-34); Mean Corpuscular Hgb Conc 31.7 g/dL (32-36); Mean Corpuscular Volume 87.1 fL (80-100); Mean Platelet Volume 8.4 fL (7.4-10.4); Platelet Count 498 K/uL (130-400); RDW Coefficient of Variation 14.8 % (11.5-14.5); RDW Standard Deviation 47.3 fL (36.4-46.3); Red Blood Count 3.26 M/uL (4.2-5.4); White Blood Count 8.88 K/uL (4.8-10.8)
[2022-02-14 06:19] LABS: BUN Creatinine Ratio 22.4 (10-20); Creatinine Clr Calc Pharmacy 65.6 ml/min; Est GFR (African American) 104.4 ml/min; Est GFR (Non-African American) 90.1 ml/min; Potassium 3.7 mmol/L (3.5-5.1)
--- NOTE | 2022-02-14 08:13 | Hospitalist Progress Note ---
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 PRN oxycodone (patient with listed allergy to Tramadol). d/c lidoderm patch (patient complains of allergy to patch) Now s/p Intramedullary Nail Fixation Left Hip(Left) - 02/04/22-- Kevan Kc, DO courtney discontinued 02/07 PT/OT recommends SNF Acute blood loss anemia - Pre-op Hemoglobin about 8-->6.7 -s/p 1 unit of PRBCs 02/05 -several episodes of maroon colored stools while here, SQ lovenox on hold -Hb 7.1 yesterday (02/13), received 1 unit pRBC -Appreciate GI input - current Hb 9.0 - pt w/o lovenox for several days, will re-start now and will cont. to closely monitor for any poss. re- bleeding Stercoral colitis Moderate constipation Rectal fecal impaction -Manual disimpaction 02/11 with mod-large volume soft, brown stool removed -Miralax BID, Senna QHS -s/p fleet enema 02/11 with resulting multiple moderate volume loose stool -now continues to have frequent small BM. 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 Stopped Urea Stopped Sodium tablets FR 1.5 L Vitamin D deficiency -continue supplement Possible UTI -Recent Sx, UA normal. finished 4 days of ciprofloxacin. 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 Dementia Monitor for delirium Reorient frequently Failure to thrive -trial of marinol DVT Prophylaxis SCDs, Lovenox now restarted Disposition-- discharge to [facility] when H/H remains stable Admission and Anticipated Discharge Date Admission Date: February 02, 2022 Subjective Patient seen in follow-up of left hip fracture, hyponatremia Now pt s/p p Intramedullary Nail Fixation Left Hip(Left) - Kevan Kc, Na level improved Received 1 unit of PRBC yesterday Current hemoglobin 9.0 Off Lovenox for several days due to GI bleed Stools now brown, will try to resume Lovenox and continue to closely monitor Currently patient is lying in bed, in no acute distress Denies fevers chills, chest pain, shortness of breath, headache, abdominal pain, nausea vomiting Review of Systems Review of Systems: All systems reviewed & are unremarkable except as noted in Subjective Physical Exam Physical Exam: Physical Exam: Thin, Frail, pale F in NAD Respiratory: Breathing comforta luly, no wheezing/r honchi/rales Cardiovascular:H regular rate and r hythm, no murmurs/ rubs Gastrointestinal ( Abdomen): soft, non tender Musculoskeletal: no edema Neurologic: awake, able to ans wer simple questio ns, left facial pa lsy Results & Data Results & Data ([facility]) Vital Signs (Past 12 Hours) Vital Signs Temp Pulse Pulse Resp BP Pulse Ox 02/14/22 07:44 36.6 C 80 16 137/73 99 02/14/22 02:54 36.9 C 83 18 159/77 H 96 02/13/22 23:08 36.7 C 83 18 145/73 H 95 02/13/22 22:21 88 Laboratory Results 02/14/22 02/14/22 02/13/22 Range/Units 05:35 05:35 08:55 WBC 8.88 (4.8-10.8) K/uL RBC 3.26 L (4.2-5.4) M/uL Hgb 9.0 L (12.0-16.0) g/dL Hct 28.4 L (37-47) % MCV 87.1 (80-100) fL MCH 27.6 (25-34) pg MCHC 31.7 L (32-36) g/dL RDW Std Deviation 47.3 H (36.4-46.3) fL RDW Coeff of Tyesha 14.8 H (11.5-14.5) % Plt Count 498 H (130-400) K/uL MPV 8.4 (7.4-10.4) fL Sodium 133 L (136-145) mmol/L Potassium 3.7 (3.5-5.1) mmol/L Chloride 99 (98-107) mmol/L Carbon Dioxide 28 (21-32) mmol/L Anion Gap 6 (3-11) BUN 11 (6-23) mg/dl Creatinine 0.49 L (0.6-1.2) mg/dl Est Cr Clr Drug Dosing 65.6 ml/min Est GFR ( Amer) 104.4 ml/min Est GFR (Non-Af Amer) 90.1 ml/min BUN/Creatinine Ratio 22.4 H (10-20) Glucose 102 H (70-99(Fasting)) mg/dl Calcium 9.0 (8.5-10.1) mg/dl Magnesium (1.7-2.4) mg/dl Blood Type A Negative Antibody Screen NEGATIVE Crossmatch See Detail 02/13/22 Range/Units 07:11 WBC (4.8-10.8) K/uL RBC (4.2-5.4) M/uL Hgb (12.0-16.0) g/dL Hct (37-47) % MCV (80-100) fL MCH (25-34) pg MCHC (32-36) g/dL RDW Std Deviation (36.4-46.3) fL RDW Coeff of Tyesha (11.5-14.5) % Plt Count (130-400) K/uL MPV (7.4-10.4) fL Sodium 133 L (136-145) mmol/L Potassium 3.9 (3.5-5.1) mmol/L Chloride 99 (98-107) mmol/L Carbon Dioxide 28 (21-32) mmol/L Anion Gap 6 (3-11) BUN 15 (6-23) mg/dl Creatinine 0.58 L (0.6-1.2) mg/dl Est Cr Clr Drug Dosing 60.7 ml/min Est GFR ( Amer) 98.8 ml/min Est GFR (Non-Af Amer) 85.2 ml/min BUN/Creatinine Ratio 25.9 H (10-20) Glucose 104 H (70-99(Fasting)) mg/dl Calcium 8.9 (8.5-10.1) mg/dl Magnesium 1.9 (1.7-2.4) mg/dl Blood Type Antibody Screen Crossmatch Medications Administered Current Inpatient Medications Acetaminophen (Acetaminophen 500 Mg Tab) 1,000 mg PO Q8 [facility] Stop: 03/04/22 21:59 Last Admin: 02/14/22 05:55 Dose: 1,000 mg Documented by: Amlodipine Besylate (Amlodipine Besylate 5 Mg Tab) 2.5 mg PO QAM [facility] Stop: 03/11/22 08:59 Last Admin: 02/13/22 08:34 Dose: 2.5 mg Documented by: Citalopram Hydrobromide (Citalopram 20 Mg Tab) 10 mg PO QAM [facility] Stop: 03/05/22 08:59 Last Admin: 02/13/22 08:35 Dose: 10 mg Documented by: Dronabinol (Dronabinol 2.5 Mg Cap) 2.5 mg PO BID [facility] Stop: 03/12/22 20:59 Last Admin: 02/13/22 20:26 Dose: 2.5 mg Documented by: Enoxaparin Sodium (Enoxaparin Inj 40 Mg/0.4 Ml Syr) 40 mg SQ Q24H [facility] Stop: 03/06/22 12:44 Last Admin: 02/08/22 20:50 Dose: 40 mg Documented by: Famotidine (Famotidine 20 Mg Tab) 20 mg PO BID [facility] Stop: 03/09/22 20:59 Last Admin: 02/13/22 20:26 Dose: 20 mg Documented by: Gabapentin (Gabapentin 100 Mg Cap) 100 mg PO BID [facility] Stop: 03/09/22 09:14 Last Admin: 02/13/22 20:26 Dose: 100 mg Documented by: Piperacillin Sod/Tazobactam (Sod 3.375 gm/ Dextrose) 115 mls @ 28.75 mls/hr IV Q8H [facility]; Protocol Stop: 02/21/22 19:59 Last Admin: 02/14/22 03:35 Dose: 28.8 mls/hr Documented by: Levalbuterol HCl (Levalbuterol Hcl 0.63 Mg/3 Ml Neb) 0.63 mg NEB Q4H [facility]; Protocol PRN Reason: Shortness Of Breath Or Wheezing Stop: 03/06/22 19:29 Last Admin: 02/05/22 03:21 Dose: 0.63 mg Documented by: Lidocaine (Lidocaine 5% 1 Patch) 1 patch TD QAM [facility] Stop: 03/05/22 11:59 Last Admin: 02/13/22 08:40 Dose: Not Given Documented by: Loratadine (Loratadine 10 Mg Tab) 10 mg PO QAM [facility] Stop: 03/05/22 08:59 Last Admin: 02/13/22 08:36 Dose: 10 mg Documented by: Miscellaneous (Remove Lidoderm Patch) 1 ea N/A DAILY@2100 [facility] Stop: 03/05/22 22:59 Last Admin: 02/13/22 20:26 Dose: Not Given Documented by: Miscellaneous Information (Piperacill/Tazobac Consult Active) 1 ea N/A UD PRN PRN Reason: Consult Stop: 03/13/22 13:29 Naloxone HCl (Naloxone Hcl 0.4 Mg/1 Ml Vial/Carp) 0.1 mg IV UD PRN PRN Reason: Opiate Overdose Stop: 03/04/22 19:42 Ondansetron HCl (Ondansetron Inj 2 Mg/Ml 2 Ml Vial) 4 mg IV Q6H PRN PRN Reason: Nausea Stop: 03/04/22 19:42 Last Admin: 02/13/22 08:27 Dose: 4 mg Documented by: Oxycodone HCl (Oxycodone Hcl Ir 5 Mg Tab (Immediate Release)) 5 mg PO Q6H PRN PRN Reason: Pain Stop: 02/21/22 09:15 Last Admin: 02/12/22 15:52 Dose: 5 mg Documented by: Pantoprazole Sodium (Pantoprazole 40 Mg Tab) 40 mg PO BID [facility] Stop: 03/11/22 20:59 Last Admin: 02/13/22 20:26 Dose: 40 mg Documented by: Polyethylene Glycol (Polyethylene (Miralax) 17 Gm Pack) 17 gm PO BID [facility] Stop: 02/16/22 10:29 Last Admin: 02/13/22 20:26 Dose: 17 gm Documented by: Psyllium Hydrophilic Mucilloid (Psyllium 58.6% Powder Packet) 1 pkt PO QAM [facility] Stop: 03/12/22 08:59 Last Admin: 02/13/22 08:36 Dose: 1 pkt Documented by: Senna/Docusate Sodium (Docusate Sodium/Senna 50/8.6mg Tab) 2 tab PO HS [facility] Stop: 03/04/22 20:59 Last Admin: 02/13/22 20:26 Dose: 2 tab Documented by: Vitamin D (Cholecalciferol 5,000 Units 125 Mcg Tab) 5,000 units PO QAM [facility] Stop: 03/11/22 08:59 Last Admin: 02/13/22 08:35 Dose: 5,000 units Documented by: (1) Closed intertrochanteric fracture of left hip Encounter type: initial encounter Fracture alignment: displaced Qualified Code(s): S72.142A - Displaced intertrochanteric fracture of left femur, initial encounter for closed fracture
[2022-02-14] MEDS: amLODIPine BESYLATE 5 MG TAB PO SCH (08:29)
[2022-02-14] MEDS: GABAPENTIN 100 MG CAP PO SCH ×2 (08:30→20:59)
[2022-02-14] MEDS: CITALOPRAM 20 MG TAB PO SCH (08:30)
[2022-02-14] MEDS: FAMOTIDINE 20 MG TAB PO SCH ×2 (08:30→20:59)
[2022-02-14] MEDS: CHOLECALCIFEROL 5,000 UNITS 125 MCG TAB PO SCH (08:30)
[2022-02-14] MEDS: LORATADINE 10 MG TAB PO SCH (08:30)
[2022-02-14] MEDS: PANTOprazole 40 MG TAB PO SCH ×2 (08:31→21:01)
[2022-02-14] MEDS: PSYLLIUM or GUAR GUM FIBER POWDER PACKET PO SCH (08:33)
[2022-02-14] MEDS: LIDOCAINE 5% 1 PATCH TD SCH (08:33)
[2022-02-14] MEDS: POLYETHYLENE (MIRALAX) 17 GM PACK PO SCH ×2 (08:33→21:00)
[2022-02-14] MEDS: AMOXICILLIN/CLAVULANATE 875 MG TAB PO SCH ×2 (09:49→17:16)
[2022-02-14] MEDS: ENOXAPARIN INJ 40 MG/0.4 ML SYR SQ SCH (20:59)
[2022-02-14] MEDS: DOCUSATE SODIUM/SENNA 50/8.6MG TAB PO SCH (21:56)
[2022-02-15] MEDS: ACETAMINOPHEN 500 MG TAB PO SCH ×3 (06:02→21:17)
--- NOTE | 2022-02-15 07:19 | Hospitalist Progress Note ---
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 PRN oxycodone (patient with listed allergy to Tramadol). d/c lidoderm patch (patient complains of allergy to patch) Now s/p Intramedullary Nail Fixation Left Hip(Left) - 02/04/22-- Kevan Kc, courtney discontinued 02/07 lovenox restarted yesterday (02/14) PT/OT recommends SNF Acute blood loss anemia - Pre-op Hemoglobin about 8-->6.7 -s/p 1 unit of PRBCs 02/05 -several episodes of maroon colored stools while here, SQ lovenox on hold -Hb 7.1 (02/13), received 1 unit pRBC -Appreciate GI input - current Hb 9.8 - lovenox restarted yesterday (02/14) Stercoral colitis Moderate constipation Rectal fecal impaction -Manual disimpaction 02/11 with mod-large volume soft, brown stool removed -Miralax BID, Senna QHS -s/p fleet enema 02/11 with resulting multiple moderate volume loose stool -now continues to have frequent small BM. 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 Stopped Urea Stopped Sodium tablets Fluid Restriction 1.5 L Vitamin D deficiency -continue supplement Possible UTI -Recent Sx, UA normal. finished 4 days of ciprofloxacin. 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 Dementia Monitor for delirium Reorient frequently Failure to thrive -trial of marinol DVT Prophylaxis SCDs, Lovenox now restarted Disposition-- plan to discharge to [facility] Admission and Anticipated Discharge Date Admission Date: February 02, 2022 Subjective Patient seen in follow-up of left hip fracture, hyponatremia Now pt s/p p Intramedullary Nail Fixation Left Hip(Left) - Kevan Kc, Na level improved Current hemoglobin 9.8 Lovenox restarted yesterday Stools continue to be brown Currently patient is lying in bed, in no acute distress Denies fevers chills, chest pain, shortness of breath, headache, abdominal pain, nausea vomiting Review of Systems Review of Systems: All systems reviewed & are unremarkable except as noted in Subjective Physical Exam Physical Exam: Physical Exam: Thin, Frail, pale F in NAD Respiratory: Breathing comforta luly, no wheezing/r honchi/rales Cardiovascular:H regular rate and r hythm, no murmurs/ rubs Gastrointestinal ( Abdomen): soft, non tender Musculoskeletal: no edema Neurologic: awake, able to ans wer simple questio ns, left facial pa lsy Results & Data Results & Data ([facility]) Vital Signs (Past 12 Hours) Vital Signs Temp Pulse Pulse Resp BP Pulse Ox 02/15/22 06:42 36.8 C 88 18 149/75 H 99 02/15/22 03:00 36.6 C 84 18 168/83 H 100 02/15/22 00:58 94 H 02/14/22 22:25 36.8 C 87 20 154/76 H 97 Laboratory Results 02/15/22 Range/Units 07:58 Hgb 9.8 L (12.0-16.0) g/dL Hct 30.8 L (37-47) % Medications Administered Current Inpatient Medications Acetaminophen (Acetaminophen 500 Mg Tab) 1,000 mg PO Q8 [facility] Stop: 03/04/22 21:59 Last Admin: 02/15/22 06:02 Dose: 1,000 mg Documented by: Amlodipine Besylate (Amlodipine Besylate 5 Mg Tab) 2.5 mg PO QAM [facility] Stop: 03/11/22 08:59 Last Admin: 02/14/22 08:29 Dose: 2.5 mg Documented by: Amoxicillin/Clavulanate Potassium (Amoxicillin/Clavulanate 875 Mg Tab) 1 tab PO BIDM [facility]; Protocol Stop: 02/15/22 23:59 Last Admin: 02/14/22 17:16 Dose: 1 tab Documented by: Citalopram Hydrobromide (Citalopram 20 Mg Tab) 10 mg PO QAM [facility] Stop: 03/05/22 08:59 Last Admin: 02/14/22 08:30 Dose: 10 mg Documented by: Dronabinol (Dronabinol 2.5 Mg Cap) 2.5 mg PO BID [facility] Stop: 03/12/22 20:59 Last Admin: 02/14/22 21:53 Dose: 2.5 mg Documented by: Enoxaparin Sodium (Enoxaparin Inj 40 Mg/0.4 Ml Syr) 40 mg SQ Q24H [facility] Stop: 03/06/22 12:44 Last Admin: 02/14/22 20:59 Dose: 40 mg Documented by: Famotidine (Famotidine 20 Mg Tab) 20 mg PO BID [facility] Stop: 03/09/22 20:59 Last Admin: 02/14/22 20:59 Dose: 20 mg Documented by: Gabapentin (Gabapentin 100 Mg Cap) 100 mg PO BID [facility] Stop: 03/09/22 09:14 Last Admin: 02/14/22 20:59 Dose: 100 mg Documented by: Levalbuterol HCl (Levalbuterol Hcl 0.63 Mg/3 Ml Neb) 0.63 mg NEB Q4H PRN; Protocol PRN Reason: Shortness Of Breath Or Wheezing Stop: 03/06/22 19:29 Last Admin: 02/05/22 03:21 Dose: 0.63 mg Documented by: Lidocaine (Lidocaine 5% 1 Patch) 1 patch TD QAM [facility] Stop: 03/05/22 11:59 Last Admin: 02/14/22 08:33 Dose: 1 patch Documented by: Loratadine (Loratadine 10 Mg Tab) 10 mg PO QAM [facility] Stop: 03/05/22 08:59 Last Admin: 02/14/22 08:30 Dose: 10 mg Documented by: Miscellaneous (Remove Lidoderm Patch) 1 ea N/A DAILY@2100 [facility] Stop: 03/05/22 22:59 Last Admin: 02/14/22 21:01 Dose: 1 ea Documented by: Naloxone HCl (Naloxone Hcl 0.4 Mg/1 Ml Vial/Carp) 0.1 mg IV UD PRN PRN Reason: Opiate Overdose Stop: 03/04/22 19:42 Ondansetron HCl (Ondansetron Inj 2 Mg/Ml 2 Ml Vial) 4 mg IV Q6H PRN PRN Reason: Nausea Stop: 03/04/22 19:42 Last Admin: 02/13/22 08:27 Dose: 4 mg Documented by: Oxycodone HCl (Oxycodone Hcl Ir 5 Mg Tab (Immediate Release)) 5 mg PO Q6H PRN PRN Reason: Pain Stop: 02/21/22 09:15 Last Admin: 02/12/22 15:52 Dose: 5 mg Documented by: Pantoprazole Sodium (Pantoprazole 40 Mg Tab) 40 mg PO BID [facility] Stop: 03/11/22 20:59 Last Admin: 02/14/22 21:01 Dose: 40 mg Documented by: Polyethylene Glycol (Polyethylene (Miralax) 17 Gm Pack) 17 gm PO BID [facility] Stop: 02/16/22 10:29 Last Admin: 02/14/22 21:00 Dose: Not Given Documented by: Psyllium Hydrophilic Mucilloid (Psyllium 58.6% Powder Packet) 1 pkt PO QAM [facility] Stop: 03/12/22 08:59 Last Admin: 02/14/22 08:33 Dose: 1 pkt Documented by: Senna/Docusate Sodium (Docusate Sodium/Senna 50/8.6mg Tab) 2 tab PO HS [facility] Stop: 03/04/22 20:59 Last Admin: 02/14/22 21:56 Dose: 2 tab Documented by: Vitamin D (Cholecalciferol 5,000 Units 125 Mcg Tab) 5,000 units PO QAM [facility] Stop: 03/11/22 08:59 Last Admin: 02/14/22 08:30 Dose: 5,000 units Documented by: (1) Closed intertrochanteric fracture of left hip Encounter type: initial encounter Fracture alignment: displaced Qualified Code(s): S72.142A - Displaced intertrochanteric fracture of left femur, initial encounter for closed fracture
[2022-02-15 08:27] LABS: Hematocrit (blood only) 30.8 % (37-47); Hemoglobin 9.8 g/dL (12.0-16.0)
[2022-02-15] MEDS: AMOXICILLIN/CLAVULANATE 875 MG TAB PO SCH ×2 (09:33→17:35)
[2022-02-15] MEDS: CHOLECALCIFEROL 5,000 UNITS 125 MCG TAB PO SCH (09:35)
[2022-02-15] MEDS: CITALOPRAM 20 MG TAB PO SCH (09:35)
[2022-02-15] MEDS: amLODIPine BESYLATE 5 MG TAB PO SCH (09:35)
[2022-02-15] MEDS: LORATADINE 10 MG TAB PO SCH (09:36)
[2022-02-15] MEDS: FAMOTIDINE 20 MG TAB PO SCH ×2 (09:36→21:16)
[2022-02-15] MEDS: LIDOCAINE 5% 1 PATCH TD SCH (09:36)
[2022-02-15] MEDS: PANTOprazole 40 MG TAB PO SCH ×2 (09:36→21:16)
[2022-02-15] MEDS: GABAPENTIN 100 MG CAP PO SCH ×2 (09:36→21:16)
[2022-02-15] MEDS: POLYETHYLENE (MIRALAX) 17 GM PACK PO SCH ×2 (10:56→21:17)
[2022-02-15] MEDS: PSYLLIUM or GUAR GUM FIBER POWDER PACKET PO SCH (10:56)
[2022-02-15] MEDS: ENOXAPARIN INJ 40 MG/0.4 ML SYR SQ SCH (21:16)
[2022-02-15] MEDS: DOCUSATE SODIUM/SENNA 50/8.6MG TAB PO SCH (21:17)
[2022-02-16] MEDS: ACETAMINOPHEN 500 MG TAB PO SCH (06:01)
[2022-02-16 07:04] LABS: Creatinine Clr Calc Pharmacy 76.4 ml/min; Est GFR (African American) 106.6 ml/min
--- NOTE | 2022-02-16 07:32 | Hospitalist Progress Note ---
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 PRN oxycodone (patient with listed allergy to Tramadol). d/c lidoderm patch (patient complains of allergy to patch) Now s/p Intramedullary Nail Fixation Left Hip(Left) - 02/04/22-- Kevan Kc, courtney discontinued 02/07 lovenox restarted (02/14) PT/OT recommends SNF Acute blood loss anemia - Pre-op Hemoglobin about 8-->6.7 -s/p 1 unit of PRBCs 02/05 -several episodes of maroon colored stools while here, SQ lovenox on hold -Hb 7.1 (02/13), received 1 unit pRBC -Appreciate GI input - current Hb 9.8 - lovenox restarted (02/14) Stercoral colitis Moderate constipation Rectal fecal impaction -Manual disimpaction 02/11 with mod-large volume soft, brown stool removed -Miralax BID, Senna QHS -s/p fleet enema 02/11 with resulting multiple moderate volume loose stool -now continues to have brown BMs -for empiric coverage of colitis: s/p Ciprofloxacin --> zosyn--> switched to Augmentin to finish 5 day course now that her leukocytosis has resolved -Surgery consulted, now signed off Hyponatremia -improved -appreciate Nephrology input, 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 Stopped Urea Stopped Sodium tablets Fluid Restriction 1.5 L Vitamin D deficiency -continue supplement Possible UTI -Recent Sx, UA normal. finished 4 days of ciprofloxacin. 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 Dementia Monitor for delirium Reorient frequently Failure to thrive -trial of marinol DVT Prophylaxis SCDs, Lovenox now restarted Disposition-- plan to discharge to [facility] Admission and Anticipated Discharge Date Admission Date: February 02, 2022 Subjective Patient seen in follow-up of left hip fracture, hyponatremia Now pt s/p p Intramedullary Nail Fixation Left Hip(Left) - Kevan Kc, Na level improved Current hemoglobin 9.8 Lovenox was restarted Stools continue to be brown Currently patient is lying in bed, in no acute distress Denies fevers chills, chest pain, shortness of breath, headache, abdominal pain, nausea vomiting Review of Systems Review of Systems: All systems reviewed & are unremarkable except as noted in Subjective Physical Exam Physical Exam: Physical Exam: Thin, Frail, pale F in NAD Respiratory: Breathing comforta luly, no wheezing/r honchi/rales Cardiovascular:H regular rate and r hythm, no murmurs/ rubs Gastrointestinal ( Abdomen): soft, non tender Musculoskeletal: no edema Neurologic: awake, able to ans wer simple questio ns, left facial pa lsy Results & Data Results & Data ([facility]) Vital Signs (Past 12 Hours) Vital Signs Temp Pulse Pulse Resp BP Pulse Ox 02/16/22 06:32 36.7 C 88 18 166/91 H 99 02/16/22 03:00 36.9 C 87 20 173/89 H 98 02/16/22 02:04 81 02/15/22 22:59 36.6 C 79 20 151/75 H 98 Laboratory Results 02/16/22 02/15/22 02/15/22 Range/Units 06:18 21:00 07:58 Hgb 9.8 L (12.0-16.0) g/dL Hct 30.8 L (37-47) % Creatinine 0.46 L (0.6-1.2) mg/dl Est Cr Clr Drug Dosing 76.4 ml/min Est GFR ( Amer) 106.6 ml/min Est GFR (Non-Af Amer) 92.0 ml/min SARS-CoV-2, RNA, NAAT NEGATIVE (NEGATIVE) Medications Administered Current Inpatient Medications Acetaminophen (Acetaminophen 500 Mg Tab) 1,000 mg PO Q8 [facility] Stop: 03/04/22 21:59 Last Admin: 02/16/22 06:01 Dose: 1,000 mg Documented by: Amlodipine Besylate (Amlodipine Besylate 5 Mg Tab) 2.5 mg PO QAM [facility] Stop: 03/11/22 08:59 Last Admin: 02/15/22 09:35 Dose: 2.5 mg Documented by: Amoxicillin/Clavulanate Potassium (Amoxicillin/Clavulanate 875 Mg Tab) 1 tab PO NOW ONE Stop: 02/16/22 07:35 Citalopram Hydrobromide (Citalopram 20 Mg Tab) 10 mg PO [facility] Stop: 03/05/22 08:59 Last Admin: 02/15/22 09:35 Dose: 10 mg Documented by: Dronabinol (Dronabinol 2.5 Mg Cap) 2.5 mg PO BID [facility] Stop: 03/12/22 20:59 Last Admin: 02/15/22 21:17 Dose: Not Given Documented by: Enoxaparin Sodium (Enoxaparin Inj 40 Mg/0.4 Ml Syr) 40 mg SQ Q24H [facility] Stop: 03/06/22 12:44 Last Admin: 02/15/22 21:16 Dose: 40 mg Documented by: Famotidine (Famotidine 20 Mg Tab) 20 mg PO BID [facility] Stop: 03/09/22 20:59 Last Admin: 02/15/22 21:16 Dose: 20 mg Documented by: Gabapentin (Gabapentin 100 Mg Cap) 100 mg PO BID [facility] Stop: 03/09/22 09:14 Last Admin: 02/15/22 21:16 Dose: 100 mg Documented by: Levalbuterol HCl (Levalbuterol Hcl 0.63 Mg/3 Ml Neb) 0.63 mg NEB Q4H PRN; Protocol PRN Reason: Shortness Of Breath Or Wheezing Stop: 03/06/22 19:29 Last Admin: 02/05/22 03:21 Dose: 0.63 mg Documented by: Lidocaine (Lidocaine 5% 1 Patch) 1 patch TD [facility] Stop: 03/05/22 11:59 Last Admin: 02/15/22 09:36 Dose: 1 patch Documented by: Loratadine ([facility]adine 10 Mg Tab) [facility] Stop: 03/05/22 08:59 Last Admin: 02/15/22 09:36 Dose: 10 mg Documented by: Miscellaneous (Remove Lidoderm Patch) 1 ea N/A DAILY@2100 [facility] Stop: 03/05/22 22:59 Last Admin: 02/15/22 21:17 Dose: 1 ea Documented by: Naloxone HCl (Naloxone Hcl 0.4 Mg/1 Ml Vial/Carp) 0.1 mg IV UD PRN PRN Reason: Opiate Overdose Stop: 03/04/22 19:42 Ondansetron HCl (Ondansetron Inj 2 Mg/Ml 2 Ml Vial) 4 mg IV Q6H PRN PRN Reason: Nausea Stop: 03/04/22 19:42 Last Admin: 02/13/22 08:27 Dose: 4 mg Documented by: Oxycodone HCl (Oxycodone Hcl Ir 5 Mg Tab (Immediate Release)) 5 mg PO Q6H PRN PRN Reason: Pain Stop: 02/21/22 09:15 Last Admin: 02/12/22 15:52 Dose: 5 mg Documented by: Pantoprazole Sodium (Pantoprazole 40 Mg Tab) 40 mg PO BID [facility] Stop: 03/11/22 20:59 Last Admin: 02/15/22 21:16 Dose: 40 mg Documented by: Polyethylene Glycol (Polyethylene (Miralax) 17 Gm Pack) 17 gm PO BID [facility] Stop: 02/16/22 10:29 Last Admin: 02/15/22 21:17 Dose: Not Given Documented by: Psyllium Hydrophilic Mucilloid (Psyllium 58.6% Powder Packet) 1 pkt PO QAM [facility] Stop: 03/12/22 08:59 Last Admin: 02/15/22 10:56 Dose: 1 pkt Documented by: Senna/Docusate Sodium (Docusate Sodium/Senna 50/8.6mg Tab) 2 tab PO HS [facility] Stop: 03/04/22 20:59 Last Admin: 02/15/22 21:17 Dose: Not Given Documented by: Vitamin D (Cholecalciferol 5,000 Units 125 Mcg Tab) 5,000 units PO QAM [facility] Stop: 03/11/22 08:59 Last Admin: 02/15/22 09:35 Dose: 5,000 units Documented by: (1) Closed intertrochanteric fracture of left hip Encounter type: initial encounter Fracture alignment: displaced Qualified Code(s): S72.142A - Displaced intertrochanteric fracture of left femur, initial encounter for closed fracture
[2022-02-16] MEDS ORDERED: AMOXICILLIN/CLAVULANATE 875 MG TAB PO ONE (07:34)
--- NOTE | 2022-02-16 08:12 | Discharge Summary ---
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 Patient with history fall and right hip fracture in 12/2021 that was repaired by Dr. Aguilar. Patient currently residing in [facility]. History assistance obtained from patient's daughter as patient with history of dementia. Reports patient with history frequent falls and often gets up and does not use assistive devices. Reported today patient got up to try to walk and family members told her to wait for assistance from staff however patient continued to walk and reported lost balance and fell. Patient complaining of left hip pain, aggravated with any attempted movement of left leg, and unable to ambulate. Patient does not think had any loss of consciousness. Daughter reports staff was able to get to patient quickly and no reported LOC. Patient denies chest pain, shortness of breath, dizziness. Denies fever/chills, diaphoresis, N/V/D/C, BARRETO, vision changes, neck pain, CP, SOB, orthopnea, palpitations, cough, sore throat, choking, otalgia, rhinorrhea, abdominal pain, paresthesias, weakness, extremity weakness, extremity edema, rashes, urinary symptoms. In ER patient found to have intertrochanteric fracture left proximal femur. Admission Exam Per Admitting Provider General: mild distress secondary to left hip pain, WDWN Head: normocephalic, atraumatic Eyes: PERRL, EOM's intact, conjunctiva non-injected, anicteric ENT: normal inspection external ears, nose, mucous membranes moist Neck: supple, trachea midline Lungs: clear, no respiratory distress, no wheezing/rhonchi/rales CV: RRR, no pretibial edema Abd: normal BS, soft, non-tender Ext: no cyanosis, no calf tenderness, LLE: Left foot externally rotated and shortened. Distal pulses intact, sensation to light touch intact. Able to wiggle toes, no other active or active range of motion attempted Neuro: Alert, oriented to person, month and year. Unsure of place. + Left facial droop is chronic, no focal deficits noted, normal affect Skin: warm, dry Principal Diagnosis Hip fracture status post surgical repair Discharge Exam Physical Exam: Thin, Frail, pale F in NAD Respiratory: Breathing comfortably, no wheezing/rhonchi/rales Cardiovascular: regular rate and rhythm, no murmurs/rubs Gastrointestinal (Abdomen): soft, non tender Musculoskeletal: no edema Neurologic: awake, able to answer simple questions, left facial palsy Discharge Data Allergies Allergy/AdvReac Type Severity Reaction Status Date / Time ezetimibe [From Zetia] Allergy Unknown ON Verified 02/02/22 15:41 [facility] Sulfa (Sulfonamide Allergy Unknown ON Verified 02/02/22 15:41 Antibiotics) [facility] sulfamethoxazole Allergy Unknown ON Verified 02/02/22 15:41 [From Bactrim] [facility] tramadol Allergy Unknown ON Verified 02/02/22 15:41 [facility] trimethoprim [From Bactrim] Allergy Unknown ON Verified 02/02/22 15:41 [facility] Consultations 02/02/22 16:06 ED Decision to Admit Stat 02/02/22 17:20 Consult Orthopedic Surgery Routine 02/02/22 19:43 Consult Anesthesiology Routine 02/04/22 07:15 Consult Nephrology Routine 02/09/22 10:51 Consult Gastroenterology Routine 02/10/22 17:51 Consult General Surgery Routine Procedures Performed Operation Date: 02/03/22 10:15 <No data on this case meets the specified criteria> Operation Date: 02/04/22 07:00 <No data on this case meets the specified criteria> Operation Date: 02/04/22 09:00 Actual Procedures p Intramedullary Nail Fixation Left Hip(Left) - Kevan Kc DO Ordered Studies 02/04/22 [place] hip LT 2-3V Routine 02/10/22 14:50 CT abd pelvis IV con only Routine IMPRESSION: 1. Constipation with marked fecal retention of the rectum. Findings are compatible with associated stercoral proctitis with rectal wall thickening, perirectal inflammatory stranding and trace pelvic ascites. 2. Small pleural effusions with bibasilar consolidation suggestive of atelectasis. Pneumonia would be difficult to exclude. 3. Fixated acute intertrochanteric left femoral fracture. 4. T12 burst fracture with 10 mm retropulsion is technically age-indeterminate however appears chronic. 5. Additional findings as above. ACT 112: Negative or not required by law. 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 PRN oxycodone (patient with listed allergy to Tramadol). d/c lidoderm patch (patient complains of allergy to patch) Now s/p Intramedullary Nail Fixation Left Hip(Left) - 02/04/22-- Kevan Kc, DO courtney discontinued 02/07 lovenox restarted (02/14) PT/OT recommends SNF Acute blood loss anemia - Pre-op Hemoglobin about 8-->6.7 -s/p 1 unit of PRBCs 02/05 -several episodes of maroon colored stools while here, SQ lovenox on hold -Hb 7.1 (02/13), received 1 unit pRBC -Appreciate GI input - current Hb 9.8 - lovenox restarted (02/14) Stercoral colitis Moderate constipation Rectal fecal impaction -Manual disimpaction 02/11 with mod-large volume soft, brown stool removed -Miralax BID, Senna QHS -s/p fleet enema 02/11 with resulting multiple moderate volume loose stool -now continues to have brown BMs -for empiric coverage of colitis: s/p Ciprofloxacin --> zosyn--> switched to Augmentin to finish 5 day course now that her leukocytosis has resolved -Surgery consulted, now signed off Hyponatremia -improved -appreciate Nephrology input, 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 Stopped Urea Stopped Sodium tablets Fluid Restriction 1.5 L Vitamin D deficiency -continue supplement Possible UTI -Recent Sx, UA normal. finished 4 days of ciprofloxacin. 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 Dementia Monitor for delirium Reorient frequently Failure to thrive -trial of marinol DVT Prophylaxis SCDs, Lovenox now restarted Disposition-- plan to discharge to [facility] Total Time Total Time Spent Total Time Spent (In Minutes): 40 Discharge Plan Discharge Items Patient Disposition: Transfer Residential Fac Reason For Visit: HIP PAIN Discharge Diagnosis: Hip fracture status post surgical repair Activity: Per Instructions section Non-emergency contact: Primary Care Provider and Surgeon Call non-emergency contact if: you have any medication questions and your symptoms worsen Follow-up/Referrals: Siobhan Jorgensen MD [Primary Care Provider] - Diet: Regular Fluids: 1500ml (6 cups) Diet Texture: Dental soft (bite-sized) Ivette Attending Provider Instructions: Use Lovenox to prevent blood clot for next 2-3 weeks. In the meantime, do not take aspirin. Discuss further with your primary care doctor, when you should restart your aspirin again. You were found to be severely constipated here, therefore make sure that you are taking stool softeners on regular basis and prevent constipation. Your sodium level was found low, it is recommended that you restrict your fluids to 1.5 L a day. It is recommended that you continue to use incentive spirometer, you may need assistance from staff with that. For pain, you can take Tylenol 1000 mg 3 times a day. You can also take oxycodone for more severe pain. You were also started on gabapentin to help with pain. Follow-up with your orthopedic surgeon, as below. Addtl Airbrush Artist Provider Instructions: ORTHOPEDIC INSTRUCTIONS Hip Fracture Activity and Therapy Recommendations: 1. You were shown a series of exercises in the hospital. Do these exercises three times each day if you are able. 2. Get up and walk several times each day if you are capable. Make sure you have assistance is needed. For the first four weeks, try not to stand or walk for more than one hour at a time. If you do stand or walk for more than one hour, you will not hurt anything, but your leg will likely swell. 3. As you feel comfortable, you may change from the walker or crutches to a cane and then to independent walking if you are able. Please be safe. Medications: 1. Narcotic You will likely be sent from the hospital with the narcotic pain medication that worked best throughout your stay. 2. Lovenox You will likely be required to take Lovenox daily for 4 weeks after discharge from the hospital 3. Other medications may be given for specific circumstances. If you have any questions, please call the office at [phone]. 4. Resume previous home medications unless otherwise instructed TEDs/Elastic Stockings: The white elastic stockings help limit swelling and prevent blood clots from forming in your legs. The more you wear them, the more they work. Wear them for six weeks. Dressing Care: [place] can be open to air as long as the incisions are not draining. If the incisions are draining or if the aime are getting caught on your clothes then please cover the aime with dry gauze. Change the dressings as necessary to keep the incision as dry as possible Showering: You may shower 5 days from the day of surgery as long as the incisions are not draining. Do not soak the incision. Let soapy water run over the aime and pat them dry. Things To Watch For: 1. Drainage from the incision site that occurs more than one week after your surgery. 2. Increased redness at the incision site. 3. Fever above 102 degrees Fahrenheit. 4. Unusual chest pain or shortness of breath. 5. Call [facility] at with any of the above problems Follow-Up Visit: Follow-up with Dr. Kc's PA (Kevan Flores) 2-3 weeks after your day of surgery. He will remove your aime and answer any questions. If you have any additional questions or concerns, Dr Kc is usually in the office at the same time and will be available Please call the office to make an appointment for a time that works for you Pending Studies at Discharge: No Stand-Alone Forms: My [facility] Skilled Items Patient informed of condition?: Yes DNR: No Discharge Level of Care: Skilled Communicable Disease: No Discharge Prognosis: Stable Lines: None Urinary Catheter: No Medications and DC Order Prescriptions: New enoxaparin [Lovenox] 40 mg/0.4 mL Syringe 40 mg subcut Q24H 14 Days Qty: 5.6 RF: 0 gabapentin 100 mg Capsule 100 mg PO BID Qty: 14 RF: 0 oxycodone 5 mg Tablet 5 mg PO Q6H PRN (Reason: pain) Qty: 7 RF: 0 dronabinol 2.5 mg Capsule 2.5 mg PO BID Qty: 10 RF: 0 famotidine 20 mg Tablet 20 mg PO BID Qty: 14 RF: 0 pantoprazole 40 mg Tablet,Delayed Release (Dr/Ec) 40 mg PO BID Qty: 60 RF: 0 polyethylene glycol 3350 [Miralax] 17 gram Powder In Packet 17 g PO BID Qty: 14 RF: 0 sennosides-docusate sodium [Senokot-S] 8.6-50 mg Tablet 2 tab PO HS Qty: 14 RF: 0 lidocaine 5 % Adhesive Patch,Medicated 1 patch transdermal QAM Qty: 15 RF: 0 amoxicillin-pot clavulanate 875-125 mg tablet 1 tab PO BID Qty: 2 RF: 0 Continued citalopram 10 mg tablet 10 mg PO QAM RF: 0 amlodipine 5 mg tablet 5 mg PO QAM RF: 0 loratadine [Claritin] 10 mg Tablet 10 mg PO QAM RF: 0 cholecalciferol (vitamin D3) [Vitamin D3] 25 mcg (1,000 unit) Capsule 25 mcg PO QAM RF: 0 acetaminophen [Tylenol Extra Strength] 500 mg Tablet 1,000 mg PO Q8 Qty: 30 RF: 0 docusate sodium 100 mg Capsule 100 mg PO BID RF: 0 oxybutynin chloride 5 mg tablet 2.5 mg PO TID PRN (Reason: bladder spasms) Qty: 14 RF: 0 phenazopyridine 200 mg Tablet 200 mg PO BID PRN (Reason: Pain) RF: 0 Discontinued aspirin 81 mg capsule 81 mg PO BID Qty: 30 RF: 0 ciprofloxacin HCl [Cipro] 500 mg Tablet 500 mg PO BID RF: 0 Discharge Orders: Discharge Order (Routine); Ordered 02/16/22 Ordered By: Chai Gaffney Admission Data Admit Date/Time: 02/02/22 16:42 Attending Provider: Chai Gaffney Admit Provider: Venkat Helms Primary Care Provider: Siobhan Jorgensen Other Providers: Venkat Helms ; Kevan Kc ; Rigo Calderón ; Chai Gaffney ; Cinthia Petersen at [place] ; Keiry Selby ; Ann Viera ; [facility]
[2022-02-16] MEDS: CHOLECALCIFEROL 5,000 UNITS 125 MCG TAB PO SCH (08:22)
[2022-02-16] MEDS: PANTOprazole 40 MG TAB PO SCH (08:22)
[2022-02-16] MEDS: GABAPENTIN 100 MG CAP PO SCH (08:22)
[2022-02-16] MEDS: FAMOTIDINE 20 MG TAB PO SCH (08:22)
[2022-02-16] MEDS: LORATADINE 10 MG TAB PO SCH (08:23)
[2022-02-16] MEDS: CITALOPRAM 20 MG TAB PO SCH (08:23)
[2022-02-16] MEDS: amLODIPine BESYLATE 5 MG TAB PO SCH (08:23)
[2022-02-16] MEDS: LIDOCAINE 5% 1 PATCH TD SCH (08:24)
[2022-02-16] MEDS: PSYLLIUM or GUAR GUM FIBER POWDER PACKET PO SCH (08:24)
[2022-02-16] MEDS: POLYETHYLENE (MIRALAX) 17 GM PACK PO SCH (08:24)
== END 2022-02-16 10:05 | DRG 481 ==
LOC: ED 14:39 → EDINP 16:42 → SUATTDRO 16:42 → 2N 20:50 → 2W 02-07 23:23

== ENCOUNTER 2023-03-15 12:42 | Inpatient (IN) ==
[2023-03-15] MEDS ORDERED: SODIUM CHLORIDE 0.9% 1000ML 1,000 ML IV ONE ×2 (14:02→17:21)
[2023-03-15] MEDS ORDERED: ACETAMINOPHEN 1,000 MG/100 ML VIAL IV STA (14:03)
--- NOTE | 2023-03-15 14:05 | Emergency Department Note ---
Impression & Plan Adult failure to thrive, Proctitis, Rectovaginal fistula, Colovesical fistula, Dementia, Hospice care patient ED Provider Note NAME: JEFFREY WHITT AGE: 82 SEX: F ARRIVES VIA: Ambulance INFORMANT: Patient ED PROVIDER(S): Shaji Rosales MD CHIEF COMPLAINT: Change in mental status, weakness, pain, hospice patient, dementia. PLAN: Disposition: Admit MEDICAL DECISION MAKING: The patient is a pleasant 82-year-old woman with a past medical history of dementia currently on hospice, history of chronic hyponatremia, history of hip fracture who presents to the emergency department from her personal mcc and then accompanied by her daughter and son for evaluation of worsening mental status from baseline and generalized weakness and recurrent complaints of right hip and leg pain in the setting of being on on oxycodone and tramadol for pain as a part of her hospice care. The patient's daughter reports that she is concerned because her decline has been vertically over the past week. She reports that they have been in hospice care and acknowledges that they do not want any heroic measures but would be interested in admission to the hospital if needed for infection or dehydration. They deny any known fevers, vomiting, diarrhea or urinary symptoms. On arrival the patient is acute on chronic ill-appearing but no distress, afebrile with heart rate in the 100s and vital signs otherwise stable. She appears clinically dry with dry cracked mucous membranes and skin tenting. She has fullness of her lower abdomen without tenderness or rebound. She exhibits generalized weakness. increased of bilateral lower extremities which is her baseline in the setting of being hospital nonambulatory for the past year. WBC and platelets within normal limits. H/H similar to prior. Chemistry without metabolic acidosis. BUN/creatinine> 30 consistent with the patient's clinical dry appearance. LFTs without significant abnormality. TSH within normal limits. COVID-19 RNA, XAVIER test was negative. UA pending. Plain films of the femur and tib-fib were negative. Chest x-ray negative for acute cardiopulmonary process. CT of the abdomen pelvis was performed and demonstrates stair coral proctitis with rectosigmoid fecal impaction measuring up to 10 cm in diameter. 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 Findings reviewed with the patient's son and daughter at the bedside. They do agree that they likely would not like any invasive treatments or surgeries but they would be interested in surgery's opinion regarding these findings. They do understand that being admitted to the hospital will revoke the patient's hospice and while they can reapply for hospice care there is no guarantee that there will be availability subsequently. Case was discussed with Ariella Teran, with Dr. Geoff butler who will evaluate the patient for admission. Triage Nursing notes reviewed and agree them. Prior/outside medical records reviewed Vital Signs: reviewed Differential diagnosis: Infection, dehydration, metabolic abnormality, hypo/hyperglycemia, electrolyte disturbance, anemia, hypoxia, cardiac sources, intracerebral event, toxicologic, neurologic, as well as other pathologies. ER treatment provided: See below. Diagnostics interpreted by me: ECG: Sinus tachycardia, 102 bpm, no ectopy, no overt ST elevation or depression. Cardiac Monitoring: An order for continuous cardiac monitoring was placed and demonstrated Sinus tachycardia, 102 bpm, no ectopy. Laboratory studies: See below Imaging studies: See below Consultation(s): Ariella Teran, with Dr. Geoff butler HPI: The patient is a pleasant 82-year-old woman with a past medical history of dementia currently on hospice, history of chronic hyponatremia, history of hip fracture who presents to the emergency department from her personal m[facility] and then accompanied by her daughter and son for evaluation of worsening mental status from baseline and generalized weakness and recurrent complaints of right hip and leg pain in the setting of being on on oxycodone and tramadol for pain as a part of her hospice care. The patient's daughter reports that she is concerned because her decline has been vertically over the past week. She reports that they have been in hospice care and acknowledges that they do not want any heroic measures but would be interested in admission to the hospital if needed for infection or dehydration. They deny any known fevers, vomiting, diarrhea or urinary symptoms. ROS: See above HPI for pertinent positives & negatives. A total of 10 systems reviewed and were otherwise negative. VITALS:See Below PHYSICAL EXAMINATION: GENERAL: Awake, alert, acute on chronically ill-appearing, in no distress HENT: Normocephalic, atraumatic. Oropharynx dry-cracked MM. EYES: Normal conjunctiva. Sclera non-icteric. NECK: Supple. No nuchal rigidity. FROM. No JVD. RESPIRATORY: Clear to auscultation. CARDIAC: Tachycardic rate, normal rhythm. Extremities warm and well perfused. Pulses equal. ABDOMEN: Fullness of her lower abdomen without tenderness or rebound. RECTAL: Deferred. MUSCULOSKELETAL: Chest examination reveals no tenderness. The back is symmetrical on inspection without obvious abnormality. There is no CVA tenderness to palpation. No joint edema. LOWER EXTREMITIES: Calves are equal size bilaterally and non-tender. No edema. No discoloration. NEURO: She exhibits generalized weakness. increased of bilateral lower extremities which is her baseline in the setting of being hospital nonambulatory for the past year. SKIN: Dry with mild skin tenting. No rash or jaundice noted. Shaji Rosales MD Past Med/Surg History Medical History Spencer's palsy Closed right hip fracture Dementia DVT prophylaxis Fall History of breast cancer HTN (hypertension) Hyperparathyroidism Lumbar spinal stenosis Osteoporosis Pre-diabetes S/p left hip fracture SIADH (syndrome of inappropriate ADH production) Surgical History History of partial mastectomy hx of dcis Status post hip hemiarthroplasty Right Family History Mother Alzheimer disease Father Heart disease Social History Smoking Status: Unknown if ever smoked Hx Alcohol Use: Yes Hx Substance Use: No Preferred Language: Dutch Communication Ability: Effective Quartz Mounter Required: No Beliefs That Will Affect Care: None marital status: Current Living Situation: Personal Care Facility How many Children do You have: 2 Feels Safe at Home: Yes Assistive Devices: Walker and Wheelchair Allergies Allergies Allergy/AdvReac Type Severity Reaction Status Date / Time ezetimibe [From Zetia] Allergy Unknown ON Verified 02/02/22 15:41 [facility] Sulfa (Sulfonamide Allergy Unknown ON Verified 02/02/22 15:41 Antibiotics) [facility] sulfamethoxazole Allergy Unknown ON Verified 02/02/22 15:41 [From Bactrim] [facility] tramadol Allergy Unknown ON Verified 02/02/22 15:41 [facility] trimethoprim [From Bactrim] Allergy Unknown ON Verified 02/02/22 15:41 [facility] Home Meds Home Medications Medication Instructions Recorded Confirmed loratadine 10 mg tablet (Claritin) 10 mg PO QAM 12/25/21 03/15/23 docusate sodium 100 mg capsule 100 mg PO BID 01/31/22 03/15/23 apixaban 5 mg tablet (Eliquis) 5 mg PO BID 03/15/23 03/15/23 diazepam 5 mg tablet 5 mg PO Q6H PRN Seizure Activity 03/15/23 03/15/23 mirtazapine 15 mg tablet 15 mg PO HS 03/15/23 03/15/23 sertraline 25 mg tablet 25 mg PO DAILY 03/15/23 03/15/23 Previous Rx's Medication Instructions Recorded acetaminophen 500 mg tablet 1,000 mg PO Q8 #30 tabs 01/02/22 (Tylenol Extra Strength) famotidine 20 mg tablet 20 mg PO BID #14 tabs 02/15/22 pantoprazole 40 mg tablet,delayed 40 mg PO BID #60 tabs 02/15/22 release polyethylene glycol 3350 17 gram 17 g PO BID #14 ea 02/15/22 oral powder packet (Miralax) Results & Data (ED) Vital Signs Vital Signs - 24 hr 03/15/23 12:45 03/15/23 12:45 03/15/23 12:53 Temperature 36.0 C L 36.0 C L Temperature Source Axillary Axillary Pulse Rate 100 H 98 H Pulse Rate [Apical] 98 H Pulse Rhythm [Apical] Pulse Strength [Apical] Respiratory Rate 12 12 Respiratory Effort / Characteristics Non-Labored Non-Labored Respiratory Depth Normal Normal Respiratory Pattern Blood Pressure 132/80 Blood Pressure [Right Arm] 132/80 Blood Pressure Mean 97 Blood Pressure Mean [Right Arm] 97 Blood Pressure Position [Right Arm] Pulse Oximetry 92 92 Oxygen Delivery Method Room Air Room Air Oxygen Flow Rate Sepsis Recent Fever Within 48 Hours No Sepsis New/Unexplained Change in Mental Status No Sepsis Action Taken by Nursing No Action Required 03/15/23 14:26 03/15/23 15:50 03/15/23 16:34 Temperature 36.6 C Temperature Source Rectal Pulse Rate Pulse Rate [Apical] 83 Pulse Rhythm [Apical] Regular Pulse Strength [Apical] Normal Respiratory Rate 18 Respiratory Effort / Characteristics Non-Labored Respiratory Depth Normal Respiratory Pattern Regular Blood Pressure Blood Pressure [Right Arm] 118/71 Blood Pressure Mean Blood Pressure Mean [Right Arm] 86 Blood Pressure Position [Right Arm] Lying Pulse Oximetry 97 85 L Oxygen Delivery Method Room Air Room Air Oxygen Flow Rate Sepsis Recent Fever Within 48 Hours Sepsis New/Unexplained Change in Mental Status Sepsis Action Taken by Nursing 03/15/23 16:35 03/15/23 16:47 Temperature Temperature Source Pulse Rate 82 Pulse Rate [Apical] Pulse Rhythm [Apical] Pulse Strength [Apical] Respiratory Rate Respiratory Effort / Characteristics Respiratory Depth Respiratory Pattern Blood Pressure Blood Pressure [Right Arm] Blood Pressure Mean Blood Pressure Mean [Right Arm] Blood Pressure Position [Right Arm] Pulse Oximetry 95 Oxygen Delivery Method Nasal Cannula Oxygen Flow Rate 2 Sepsis Recent Fever Within 48 Hours Sepsis New/Unexplained Change in Mental Status Sepsis Action Taken by Nursing Laboratory Data Attestation: I reviewed the patient's lab results. 03/15/23 14:02 03/15/23 14:02 Lab Results 03/15/23 03/15/23 03/15/23 Range/Units 14:02 14:02 14:02 WBC 10.76 (4.8-10.8) K/ul RBC 4.36 (4.20-5.40) M/uL Hgb 11.7 L (12.0-16.0) g/dl Hct 37.3 (37.0-47.0) % MCV 85.6 (80.0-100.0) fL MCH 26.8 (25.0-34.0) pg MCHC 31.4 L (32.0-36.0) g/dL RDW Std Deviation 45.6 (36.4-46.3) fL RDW Coeff of Tyesha 14.6 H (11.5-14.5) % Plt Count 323 (130-400) K/uL MPV 9.7 (9.4-12.4) fL Immature Gran % (Auto) 0.3 % Neut % (Auto) 79.0 % Lymph % (Auto) 9.2 % [place] % (Auto) 10.1 % Eos % (Auto) 0.9 % Baso % (Auto) 0.5 % Neut # (Auto) 8.50 H (1.40-6.50) K/uL Lymph # (Auto) 0.99 L (1.2-3.4) K/uL [place] # (Auto) 1.09 H (0.11-0.59) K/uL Eos # (Auto) 0.10 (0-0.50) K/uL Baso # (Auto) 0.05 (0-0.2) K/uL Immature Gran # (Auto) 0.03 (0.01-0.20) K/uL PT 12.3 H (9.0-12.0) Seconds INR 1.1 (0.9-1.1) Sodium 137 (136-145) mmol/L Potassium 4.4 (3.5-5.1) mmol/L Chloride 104 (98-107) mmol/L Carbon Dioxide 27 (21-32) mmol/L Anion Gap 6 (3-11) BUN 33 H (6-23) mg/dl Creatinine 0.84 (0.6-1.2) mg/dl Est Cr Clr Drug Dosing Not Reportable Est GFR ( Amer) 74.0 ml/min Est GFR (Non-Af Amer) 63.8 ml/min BUN/Creatinine Ratio 39.3 H (10-20) Glucose 112 H (70-99(Fasting)) mg/dl Calcium 10.3 (8.6-10.3) mg/dl Phosphorus 3.4 (2.5-4.9) mg/dl Magnesium 2.0 (1.7-2.4) mg/dl Total Bilirubin 0.4 (0.2-1.0) mg/dl AST 7 L (13-39) U/L ALT < 3 L (7-52) U/L Alkaline Phosphatase 116 H (34-104) U/L Total Creatine Kinase 16 L (26-192) U/L Total Protein 7.0 (6.0-8.3) gm/dl Albumin 3.3 L (3.4-5.0) gm/dl Globulin 3.7 (2.5-4.0) gm/dl Albumin/Globulin Ratio 0.9 (0.9-2) Procalcitonin (0-0.5) ng/ml TSH (0.300-4.500) uIu/ml SARS-CoV-2, RNA, NAAT (NEGATIVE) 03/15/23 03/15/23 03/15/23 Range/Units 14:02 14:02 14:10 WBC (4.8-10.8) K/ul RBC (4.20-5.40) M/uL Hgb (12.0-16.0) g/dl Hct (37.0-47.0) % MCV (80.0-100.0) fL MCH (25.0-34.0) pg MCHC (32.0-36.0) g/dL RDW Std Deviation (36.4-46.3) fL RDW Coeff of Tyesha (11.5-14.5) % Plt Count (130-400) K/uL MPV (9.4-12.4) fL Immature Gran % (Auto) % Neut % (Auto) % Lymph % (Auto) % [place] % (Auto) % Eos % (Auto) % Baso % (Auto) % Neut # (Auto) (1.40-6.50) K/uL Lymph # (Auto) (1.2-3.4) K/uL [place] # (Auto) (0.11-0.59) K/uL Eos # (Auto) (0-0.50) K/uL Baso # (Auto) (0-0.2) K/uL Immature Gran # (Auto) (0.01-0.20) K/uL PT (9.0-12.0) Seconds INR (0.9-1.1) Sodium (136-145) mmol/L Potassium (3.5-5.1) mmol/L Chloride (98-107) mmol/L Carbon Dioxide (21-32) mmol/L Anion Gap (3-11) BUN (6-23) mg/dl Creatinine (0.6-1.2) mg/dl Est Cr Clr Drug Dosing Est GFR ( Amer) ml/min Est GFR (Non-Af Amer) ml/min BUN/Creatinine Ratio (10-20) Glucose (70-99(Fasting)) mg/dl Calcium (8.6-10.3) mg/dl Phosphorus (2.5-4.9) mg/dl Magnesium (1.7-2.4) mg/dl Total Bilirubin (0.2-1.0) mg/dl AST (13-39) U/L ALT (7-52) U/L Alkaline Phosphatase (34-104) U/L Total Creatine Kinase (26-192) U/L Total Protein (6.0-8.3) gm/dl Albumin (3.4-5.0) gm/dl Globulin (2.5-4.0) gm/dl Albumin/Globulin Ratio (0.9-2) Procalcitonin 0.06 (0-0.5) ng/ml TSH 2.821 (0.300-4.500) uIu/ml SARS-CoV-2, RNA, NAAT NEGATIVE (NEGATIVE) Administered Medications Sodium Chloride (Nss 1000ml) 1,000 mls @ 125 mls/hr IV .Q8H SELIN Stop: 04/14/23 20:35 Last Admin: 03/15/23 20:51 Dose: 80 mls/hr Documented By: SMN Discontinued Medications Sodium Chloride (Nss 1000ml) 1,000 mls @ 999 mls/hr IV .Q1H1M ONE Stop: 03/15/23 15:02 Last Infusion: 03/15/23 15:23 Dose: 0 mls/hr Documented By: SMN(2) Admin: 03/15/23 14:20 Dose: 999 mls/hr Documented By: SMN(2) Acetaminophen (Ofirmev) 1,000 mg in 100 mls @ 400 mls/hr IV NOW STA Stop: 03/15/23 14:17 Last Infusion: 03/15/23 14:46 Dose: 0 mls/hr Documented By: SMN(2) Admin: 03/15/23 14:19 Dose: 400 mls/hr Documented By: SMN(2) Sodium Chloride (Nss 1000ml) 1,000 mls @ 999 mls/hr IV .Q1H1M ONE Stop: 03/15/23 18:21 Last Infusion: 03/15/23 19:40 Dose: 0 mls/hr Documented By: Admin: 03/15/23 18:20 Dose: 999 mls/hr Documented By: RSL Promethazine HCl 6.25 mg/ (Sodium Chloride) 50.25 mls @ 201 mls/hr IV NOW STA Stop: 03/15/23 20:50 Last Infusion: 03/15/23 21:20 Dose: 0 mls/hr Documented By: Admin: 03/15/23 20:53 Dose: 201 mls/hr Documented By: SMN Ioversol (Optiray 320 100ml) 80 ml IV ONCE ONE Stop: 03/15/23 16:20 Last Admin: 03/15/23 16:20 Dose: 80 ml Documented By: [facility] Imaging Data Radiologist's Impression: Abdomen/Pelvis CT 03/15/23 14:02 CT SCAN OF THE ABDOMEN AND PELVIS WITH IV CONTRAST CLINICAL HISTORY: Generalized abdominal pain. Right hip pain. COMPARISON STUDY: Abdominal CT dated 02/10/2022. Pelvic radiograph dictated 03/20/2022. TECHNIQUE: Following the IV administration of 80 cc of Optiray 320, CT scan of the abdomen and pelvis is performed from the lung bases to the proximal femora. Images are reviewed in the axial, sagittal, and coronal planes. IV contrast was administered without complication. A dose lowering technique was utilized adhering to the principles of ALARA. The skeletal structures are osteopenic. The examination is degraded by motion artifact, as well as by streak artifact from the arms which could not be elevated above the abdomen. There is also streak artifact from orthopedic hardware in the hips. FINDINGS: Lung bases: The heart is top normal in size and without pericardial effusion. The coronary arteries are densely calcified. There is elevation of the right hemidiaphragm with bibasilar scarring/atelectasis. No airspace consolidation typical for pneumonia or pleural effusion is identified. Surgical clips are noted in the left breast. There is a moderate to large hiatal hernia. Liver: The contrast-enhanced liver is normal in size, contour, and attenuation. Fatty infiltration is seen adjacent to the falciform ligament. There is moderate intrahepatic biliary ductal dilatation. The hepatic veins and portal veins are patent. Gallbladder: Surgically absent noting clips in the gallbladder fossa. Spleen: Normal in size and attenuation. Pancreas: Moderately atrophic and grossly unremarkable. Adrenal glands: Unremarkable. Kidneys: The contrast enhanced kidneys demonstrate cortical atrophy and are without hydronephrosis. The kidneys enhance symmetrically. Scattered renal cysts measure up to 1.5 cm. Additional subcentimeter cortical hypodensities also likely represent cysts but are too small for definitive characterization. Renal sinus cysts are noted on the left. There is a 3 mm nonobstructing left renal calculus. Abdominal vasculature: There is advanced atherosclerotic calcification and ectasia of the abdominal aorta. Bowel: There is rectosigmoid fecal impaction. The rectum measures up to 10 cm in diameter. The rectal wall is thickened and hyperemic with surrounding inflammation and the appearance is consistent with a stercoral proctitis. No bowel obstruction is seen. There is [id number] constipation throughout the remainder of the colon. The appendix is normal as visualized. Peritoneum: There is no intraperitoneal free air or abdominal ascites. Lymphadenopathy: None. Pelvic viscera: Evaluation of the pelvis is significantly degraded by streak artifact from metallic hardware present in both hips. The bladder wall is marked ly thickened with mucosal hyperenhancement and surrounding inflammation. There is a small focus of intraluminal gas. The endometrial cavity is markedly distended and filled with both gas and debris. There is surrounding hyperemia, and inflammation is present around the uterus. Question a complex fistula between the anterior rectum, the uterus/vagina, and the bladder. This is best seen on the sagittal reformatted images. Skeletal structures: The skeletal structures are osteopenic. No lytic or blastic lesions are seen. There is advanced lumbosacral spondylosis. There is posttraumatic deformity left proximal femur with intertrochanteric and intramedullary nails in place. A right hip arthroplasty is in place. There is a severe chronic compression deformity of T12 with retropulsed fragments. This is similar to the 02/10/2022 examination. IMPRESSION: 1. There is rectosigmoid fecal impaction. The rectum measures up to 10 cm in diameter with evidence of severe stercoral proctitis. 2. There is evidence of cystitis. Correlate with clinical findings and urinalysis. 3. The endometrial cavity is distended and filled with gas and debris. There is associated mucosal hyperemia and inflammation around the uterus. This likely represents infection/endometritis. There may be formed stool within the uterus and vagina. 4. 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 This is best appreciated on the sagittal reformatted images. Clinical correlation will be essential. 5. Moderate to large hiatal hernia. 6. Left-sided nephrolithiasis. 7. Additional findings as above. ACT 112: Negative or not required by law. Electronically signed by: Abdoulaye Brumfield M.D. 03/15/2023 4:57 PM Chest X-Ray 03/15/23 14:02 XR chest 1V portable CLINICAL HISTORY: weakness TECHNIQUE: Single frontal radiograph of the chest was obtained. Comparison: Comparison is made to chest radiograph 02/04/2022 FINDINGS: No lines and tubes are seen. Calcified aortic knob is seen. Interstitial thickening is seen in the lungs. Elevation of the right hemidiaphragm is seen. No evidence of pleural effusion or pneumothorax. IMPRESSION: No acute chest disease. ACT 112: Negative or not required by law. Electronically signed by: Hans Benitez M.D. 03/15/2023 2:55 PM Femur X-Ray 03/15/23 14:02 XR femur RT 2V routine HISTORY: 82 years-old Female pain acute pain in the right lower extremity COMPARISON: 03/20/2022 TECHNIQUE: 2 views of the right femur FINDINGS: Normal appearance the bones. Partially imaged or of hardware of the left femur. There is at least mild osteoarthritis of the right knee. Right knee total joint arthroplasty. 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 Extensive fecal retention of the rectum. IMPRESSION: No acute fracture or dislocation identified. ACT 112: Negative or not required by law. The above report was generated using voice recognition software. It may contain grammatical, syntax or spelling errors. Electronically signed by: Prashanth Morales M.D. 03/15/2023 2:[address] 03/15/23 14:02 CT head/brain wo con CLINICAL HISTORY: ams Technique: Contiguous axial CT images of the head were acquired from the base of the skull to the vertex without intravenous contrast administration. Images were viewed in brain, subdural and bone windows. Automated dose lowering techniques and/or adjustment according to patient size were utilized for this exam. Comparison: None available at the time of this dictation. Findings: Areas of decreased attenuation are present in the periventricular and subcortical white matter bilaterally consistent with small vessel ischemic disease. Generalized cerebral atrophy with commensurate enlargement of the ventricles, sulci, and cisterns is also present. There is no acute intracranial hemorrhage or evidence of acute territorial infarction. No shift of the midline structures, mass effect, or extra-axial abnormalities are shown. Atherosclerotic calcifications are present in the intracranial segments of the internal carotid arteries. Imaged portions of the paranasal sinuses and mastoid air cells are clear. The orbits appear normal. There are no acute fractures of the calvaria or scalp swelling. Impression: No acute intracranial hemorrhage, no evidence of acute territorial infarction or other acute intracranial disease process. ACT 112: Negative or not required by law. Electronically signed by: Hans Benietz M.D. 03/15/2023 4:35 PM Tibia/Fibula X-Ray 03/15/23 14:02 RIGHT TIBIA AND FIBULA 2 VIEWS CLINICAL HISTORY: Right leg pain and bruising. FINDINGS: AP and crosstable lateral views of the right tibia and fibula are obtained. No prior studies are available for comparison at the time of dictation. The skeletal structures are osteopenic. There is no radiographic evidence of right tibial or fibular fracture. The knee and ankle joints are grossly maintained noting degenerative change. There is chondrocalcinosis in the knee. The overlying soft tissues are normal as imaged noting generalized atrophy. IMPRESSION: No acute bony abnormality is identified. Electronically signed by: Abdoulaye Brumfield M.D. 03/15/2023 2:55 PM Discharge Plan Visit Data Chief Complaint: Dehydration Stated Complaint: DEHYDRATION, PAIN ED Provider: Shaji Rosales Discharge Problem: Adult failure to thrive, Proctitis, Rectovaginal fistula, Colovesical fistula, Dementia, Hospice care patient Patient Disposition: Admitted As Inpatient Discharge Instructions Interventions: ED Discharge Assessment Last Done: 03/15/23 19:55
[2023-03-15 14:52] LABS: Basophils # (auto) 0.05 K/uL (0-0.2); Basophils % (auto) 0.5 %; Eosinophils % (auto) 0.9 %; Hematocrit (blood only) 37.3 % (37.0-47.0); Hemoglobin 11.7 g/dl (12.0-16.0); Immature Granulocytes # (auto) 0.03 K/uL (0.01-0.20); Immature Granulocytes % (auto) 0.3 %; Lymphocytes # (auto) 0.99 K/uL (1.2-3.4); Lymphocytes % (auto) 9.2 %; Mean Corpuscular Hemoglobin 26.8 pg (25.0-34.0); Mean Corpuscular Hgb Conc 31.4 g/dL (32.0-36.0); Mean Corpuscular Volume 85.6 fL (80.0-100.0); Mean Platelet Volume 9.7 fL (9.4-12.4); Monocytes # (auto) 1.09 K/uL (0.11-0.59); Monocytes % (auto) 10.1 %; Platelet Count 323 K/uL (130-400); RDW Coefficient of Variation 14.6 % (11.5-14.5); RDW Standard Deviation 45.6 fL (36.4-46.3); Red Blood Count 4.36 M/uL (4.20-5.40); White Blood Count 10.76 K/ul (4.8-10.8)
--- NOTE | 2023-03-15 14:56 | XRay Report ---
RIGHT TIBIA AND FIBULA 2 VIEWS CLINICAL HISTORY: Right leg pain and bruising. FINDINGS: AP and crosstable lateral views of the right tibia and fibula are obtained. No prior studie s are available for comparison at the time of dictation. The skeletal structures are osteopenic. Ther e is no radiographic evidence of right tibial or fibular fracture. The knee and ankle joints are abbey sly maintained noting degenerative change. There is chondrocalcinosis in the knee. The overlying soft tissues are normal as imaged noting generalized atrophy. IMPRESSION: No acute bony abnormality is identified. Electronically signed by: Abdoulaye Brumfield M.D. 03/15/2023 2:55 PM
--- NOTE | 2023-03-15 14:56 | XRay Report ---
XR chest 1V portable CLINICAL HISTORY: weakness TECHNIQUE: Single frontal radiograph of the chest was obtained. Comparison: Comparison is made to chest radiograph 02/04/2022 FINDINGS: No lines and tubes are seen. Calcified aortic knob is seen. Interstitial thickening is seen in the elizabeth ngs. Elevation of the right hemidiaphragm is seen. No evidence of pleural effusion or pneumothorax. IMPRESSION: No acute chest disease. ACT 112: Negative or not required by law. Electronically signed by: Hans Benitez M.D. 03/15/2023 2:55 PM
--- NOTE | 2023-03-15 15:00 | XRay Report ---
XR femur RT 2V routine HISTORY: 82 years-old Female pain acute pain in the right lower extremity COMPARISON: 03/20/2022 TECHNIQUE: 2 views of the right femur FINDINGS: Normal appearance the bones. Partially imaged or of hardware of the left femur. There is at least mil d osteoarthritis of the right knee. Right knee total joint arthroplasty. 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 Extensive fecal retention of the r ectum. IMPRESSION: No acute fracture or dislocation identified. ACT 112: Negative or not required by law. The above report was generated using voice recognition software. It may contain grammatical, syntax o r spelling errors. Electronically signed by: Prashanth Morales M.D. 03/15/2023 2:58 PM
[2023-03-15 15:05] LABS: Anion Gap 6 (3-11); BUN Creatinine Ratio 39.3 (10-20); Blood Urea Nitrogen 33 mg/dl (6-23); Calcium 10.3 mg/dl (8.6-10.3); Carbon Dioxide 27 mmol/L (21-32); Chloride 104 mmol/L (98-107); Est GFR (Non-African American) 63.8 ml/min; Glucose 112 mg/dl (70-99(Fasting)); Potassium 4.4 mmol/L (3.5-5.1); Sodium 137 mmol/L (136-145)
[2023-03-15 15:28] LABS: INR 1.1 (0.9-1.1); Prothrombin Time 12.3 Seconds (9.0-12.0)
[2023-03-15 15:47] LABS: Alanine Aminotransferase < 3 U/L (7-52); Albumin Globulin Ratio 0.9 (0.9-2); Albumin Level 3.3 gm/dl (3.4-5.0); Alkaline Phosphatase 116 U/L (34-104); Aspartate Aminotransferase 7 U/L (13-39); Bilirubin,Total 0.4 mg/dl (0.2-1.0); Creatine Kinase 16 U/L (26-192); Globulin 3.7 gm/dl (2.5-4.0); Phosphorus 3.4 mg/dl (2.5-4.9)
[2023-03-15] MEDS ORDERED: OPTIRAY 320 100ml IV ONE (16:19)
--- NOTE | 2023-03-15 16:37 | CT Scan Report ---
CT head/brain wo con CLINICAL HISTORY: ams Technique: Contiguous axial CT images of the head were acquired from the base of the skull to the dionna plac[place] without intravenous contrast administration. Images were viewed in brain, subdural and [facility]. Automated dose lowering techniques and/or adjustment according to patient size were utilized for this exam. Comparison: None available at the time of this dictation. Findings: Areas of decreased attenuation are present in the periventricular and subcortical white matter bilate rally consistent with small vessel ischemic disease. Generalized cerebral atrophy with commensurate e nlargement of the ventricles, sulci, and cisterns is also present. There is no acute intracranial hem orrhage or evidence of acute territorial infarction. No shift of the midline structures, mass effect, or extra-axial abnormalities are shown. Atherosclerotic calcifications are present in the intracran ial segments of the internal carotid arteries. Imaged portions of the paranasal sinuses and mastoid air cells are clear. The orbits appear normal. There are no acute fractures of the calvaria or scalp swelling. Impression: No acute intracranial hemorrhage, no evidence of acute territorial infarction or other acute intracra nial disease process. ACT 112: Negative or not required by law. Electronically signed by: Hans Benitez M.D. 03/15/2023 4:35 PM
--- NOTE | 2023-03-15 17:00 | CT Scan Report ---
CT SCAN OF THE ABDOMEN AND PELVIS WITH IV CONTRAST CLINICAL HISTORY: Generalized abdominal pain. Right hip pain. COMPARISON STUDY: Abdominal CT dated 02/10/2022. Pelvic radiograph dictated 03/20/2022. TECHNIQUE: Following the IV administration of 80 cc of Optiray 320, CT scan of the abdomen and pelvi s is performed from the lung bases to the proximal femora. Images are reviewed in the axial, sagittal , and coronal planes. IV contrast was administered without complication. A dose lowering technique wa s utilized adhering to the principles of ALARA. The skeletal structures are osteopenic. The examinati on is degraded by motion artifact, as well as by streak artifact from the arms which could not be basil vated above the abdomen. There is also streak artifact from orthopedic hardware in the hips. FINDINGS: Lung bases: The heart is top normal in size and without pericardial effusion. The coronary arteries a re densely calcified. There is elevation of the right hemidiaphragm with bibasilar scarring/atelectas is. No airspace consolidation typical for pneumonia or pleural effusion is identified. Surgical clips are noted in the left breast. There is a moderate to large hiatal hernia. Liver: The contrast-enhanced liver is normal in size, contour, and attenuation. Fatty infiltration is seen adjacent to the falciform ligament. There is moderate intrahepatic biliary ductal dilatation. T he hepatic veins and portal veins are patent. Gallbladder: Surgically absent noting clips in the gallbladder fossa. Spleen: Normal in size and attenuation. Pancreas: Moderately atrophic and grossly unremarkable. Adrenal glands: Unremarkable. Kidneys: The contrast enhanced kidneys demonstrate cortical atrophy and are without hydronephrosis. T he kidneys enhance symmetrically. Scattered renal cysts measure up to 1.5 cm. Additional subcentimete r cortical hypodensities also likely represent cysts but are too small for definitive characterizatio n. Renal sinus cysts are noted on the left. There is a 3 mm nonobstructing left renal calculus. Abdominal vasculature: There is advanced atherosclerotic calcification and ectasia of the abdominal a poornima. Bowel: There is rectosigmoid fecal impaction. The rectum measures up to 10 cm in diameter. The rectal wall is thickened and hyperemic with surrounding inflammation and the appearance is consistent with a stercoral proctitis. No bowel obstruction is seen. There is [id number] constipation throughou t the remainder of the colon. The appendix is normal as visualized. Peritoneum: There is no intraperitoneal free air or abdominal ascites. Lymphadenopathy: None. Pelvic viscera: Evaluation of the pelvis is significantly degraded by streak artifact from metallic h ardware present in both hips. The bladder wall is markedly thickened with mucosal hyperenhancement an d surrounding inflammation. There is a small focus of intraluminal gas. The endometrial cavity is mar kedly distended and filled with both gas and debris. There is surrounding hyperemia, and inflammation is present around the uterus. Question a complex fistula between the anterior rectum, the uterus/vag tomasz, and the bladder. This is best seen on the sagittal reformatted images. Skeletal structures: The skeletal structures are osteopenic. No lytic or blastic lesions are seen. Th ere is advanced lumbosacral spondylosis. There is posttraumatic deformity left proximal femur with in tertrochanteric and intramedullary nails in place. A right hip arthroplasty is in place. There is a s evere chronic compression deformity of T12 with retropulsed fragments. This is similar to the examination. IMPRESSION: 1. There is rectosigmoid fecal impaction. The rectum measures up to 10 cm in diameter with evidence o f severe stercoral proctitis. 2. There is evidence of cystitis. Correlate with clinical findings and urinalysis. 3. The endometrial cavity is distended and filled with gas and debris. There is associated mucosal hy peremia and inflammation around the uterus. This likely represents infection/endometritis. There may be formed stool within the uterus and vagina. 4. 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 This is best vicente reciated on the sagittal reformatted images. Clinical correlation will be essential. 5. Moderate to large hiatal hernia. 6. Left-sided nephrolithiasis. 7. Additional findings as above. ACT 112: Negative or not required by law. Electronically signed by: Abdoulaye Brumfield M.D. 03/15/2023 4:57 PM
--- NOTE | 2023-03-15 17:17 | History & Physical Report ---
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 This was discussed at bedside and at this time the family wants to forgo surgical consultation and would prefer to keep their mother comfortable. - CT of the abdomen pelvis reviewed personally: IMPRESSION: 1. There is rectosigmoid fecal impaction. The rectum measures up to 10 cm in diameter with evidence of severe stercoral proctitis. 2. There is evidence of cystitis. Correlate with clinical findings and urinalysis. 3. The endometrial cavity is distended and filled with gas and debris. There is associated mucosal hyperemia and inflammation around the uterus. This likely represents infection/endometritis. There may be formed stool within the uterus and vagina. 4. 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 This is best appreciated on the sagittal reformatted images. Clinical correlation will be essential. 5. Moderate to large hiatal hernia. 6. Left-sided nephrolithiasis. - Pain control, antiemetics prn, and tylenol for fever - Currently no indication that the patient needs antibiotics. - Will allow diet if pt would like to eat - will ask for palliative care consultation to assist with hospice transition to another agency, IV fluids - Wound care consult for ulceration on sacrum per family - will ask for frequent turn and repo -Anticipate comfort measures only and go home on hospice, await social work/palliative care consultation to facilitate goals of care ---the family has just been made aware of this new information and requests a small amount of time to completely think through their mother's care. DVT ppx: - teds, scds CODE: DNR/DNI Dispo: From home, likely to remain in the hospital x 1-2 days A total of 85 minutes were spent with greater than 50% of that time face to face with the patient, personally reviewing all current laboratories, imaging studies, past medication reconciliation, outpatient chart review, and discussion with specialists to collaborate care for the patient with attending. Please see attending documentation for corrections and/or additions. 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 History is obtained by daughter and son who are present at bedside. Pt had previously been in a personal assisted for the past 1-2 years. They noticed a decline over the past 1 week. Staff mentioned pt noted having increased pain in both her legs over the past 2 weeks. She has had poor po intake over the past week, increased lethargy. At baseline is wheelchair bound and has a sacral ulceration. She does talk, feeds herself, but requires assistance with transfers and getting dressed. Pt is currently a resident of [facility] in [place] and they are requesting some more care, possible transition with increased level of care with a different hospice agency. CT abdomen pelvis showing rectosigmoid fecal impaction, rectum measures up to 10 cm in diameter with evidence of severe to steroid coloproctitis. Cystitis, endometrial cavity is distended and filled with gas and debris, mucosal hyperemia and inflammation around the uterus, likely representing infection/endometritis, there may be formed stool within the uterus and vagina, complex fistula between bladder, uterus/vagina and rectum. Discussion was held with the patients daughter and son, Wiliam, regarding her possible interventions and degree of aggressiveness with her health care, with the prognosis likely being poor and that this is most likely from something cancerous causing the significant fistula. They do not want to persue surgical intervention, biopsy or want to prove a cancer is present at this time. Wiliam would like to keep their mother comfortable currently, with fluids, pain control, and if possible, reduce the fecal impaction which was also discussed. Allergies Allergy/AdvReac Type Severity Reaction Status Date / Time ezetimibe [From Zetia] Allergy Unknown ON Verified 02/02/22 15:41 [facility] MED LIST Sulfa (Sulfonamide Allergy Unknown ON Verified 02/02/22 15:41 Antibiotics) [facility] sulfamethoxazole Allergy Unknown ON Verified 02/02/22 15:41 [From Bactrim] [facility] MED LIST tramadol Allergy Unknown ON Verified 02/02/22 15:41 [facility] trimethop[facility] [From Bactrim] Allergy Unknown ON Verified 02/02/22 15:41 [facility] MED LIST Home Medications Medication Instructions Recorded Confirmed Type loratadine 10 mg tablet (Claritin) 10 mg PO QAM 12/25/21 03/15/23 History acetaminophen 500 mg tablet 1,000 mg PO Q8 #30 tabs 01/02/22 03/15/23 Rx (Tylenol Extra Strength) docusate sodium 100 mg capsule 100 mg PO BID 01/31/22 03/15/23 History famotidine 20 mg tablet 20 mg PO BID #14 tabs 02/15/22 03/15/23 Rx pantoprazole 40 mg tablet,delayed 40 mg PO BID #60 tabs 02/15/22 03/15/23 Rx release polyethylene glycol 3350 17 gram 17 g PO BID #14 ea 02/15/22 03/15/23 Rx oral powder packet (Miralax) apixaban 5 mg tablet (Eliquis) 5 mg PO BID 03/15/23 03/15/23 History diazepam 5 mg tablet 5 mg PO Q6H PRN Seizure Activity 03/15/23 03/15/23 History mirtazapine 15 mg tablet 15 mg PO HS 03/15/23 03/15/23 History sertraline 25 mg tablet 25 mg PO DAILY 03/15/23 03/15/23 History Past Med/Surg History Medical History (Updated 03/15/23 @ 18:22 by Shaji Rosales MD) Spencer's palsy Closed right hip fracture Dementia DVT prophylaxis Fall History of breast cancer HTN (hypertension) Hyperparathyroidism Lumbar spinal stenosis Osteoporosis Pre-diabetes S/p left hip fracture SIADH (syndrome of inappropriate ADH production) Surgical History (Updated 03/15/23 @ 17:21 by Tonya Grissom PA-C) History of partial mastectomy hx of dcis Status post hip hemiarthroplasty Right Family History Mother Alzheimer disease Father Heart disease Social History Smoking Status: Unknown if ever smoked Hx Alcohol Use: Yes Hx Substance Use: No Preferred Language: Estonian Communication Ability: Effective Cell Room Supervisor Required: No Beliefs That Will Affect Care: None marital status: Current Living Situation: Personal Care Facility How many Children do You have: 2 Feels Safe at Home: Yes Assistive Devices: Walker and Wheelchair Review of Systems Review of Systems: Unobtainable due to cognitive status Physical Exam Physical Exam: General: asleep, no apparent distress, wakes to verbal stimuli Head: Normocephalic, atraumatic ENT: PERRL, EOMI, no pharyngeal exudate, mucous membranes very dry, + hx bells palsy with exudate sticking eyelids together Chest: Clear to auscultation, on 2L via NC, no adventitious breath sounds Cardiac: NSR, few extra beats, no murmur, no JVD, normal peripheral pulses, good capillary refill Abdominal: NABS x 4 quadrants, soft, nondistended, nontender to palpation, no rebound or guarding Extremities: Normal inspection, no peripheral edema or erythema, calfs nontender to palpation Psych: Normal mood and affect Neuro: asleep, mental status not evaluated for comfort, wakes to verbal stimuli, cannot answer where she is at Results & Data Results & Data Vital Signs (Past 12 Hours) Vital Signs Temp Pulse Pulse Resp BP BP Pulse Ox 03/15/23 16:47 82 03/15/23 16:35 95 03/15/23 16:34 83 18 118/71 85 L 03/15/23 15:50 36.6 C 03/15/23 14:26 97 03/15/23 12:53 98 H 03/15/23 12:45 36.0 C L 98 H 12 132/80 92 03/15/23 12:45 36.0 C L 100 H 12 132/80 92 O2 Del Method O2 Flow Rate 03/15/23 16:47 03/15/23 16:35 Nasal Cannula 2 03/15/23 16:34 Room Air 03/15/23 15:50 03/15/23 14:26 Room Air 03/15/23 12:53 03/15/23 12:45 Room Air 03/15/23 12:45 Room Air Laboratory Results 03/15/23 03/15/23 03/15/23 14:10 14:02 14:02 WBC 10.76 RBC 4.36 Hgb 11.7 L Hct 37.3 MCV 85.6 MCH 26.8 MCHC 31.4 L RDW Std Deviation 45.6 RDW Coeff of Tyesha 14.6 H Plt Count 323 MPV 9.7 Immature Gran % (Auto) 0.3 Neut % (Auto) 79.0 Lymph % (Auto) 9.2 Whitfield % (Auto) 10.1 Eos % (Auto) 0.9 Baso % (Auto) 0.5 Neut # (Auto) 8.50 H Lymph # (Auto) 0.99 L Whitfield # (Auto) 1.09 H Eos # (Auto) 0.10 Baso # (Auto) 0.05 Immature Gran # (Auto) 0.03 PT INR Sodium Potassium Chloride Carbon Dioxide Anion Gap BUN Creatinine Est Cr Clr Drug Dosing Est GFR ( Amer) Est GFR (Non-Af Amer) BUN/Creatinine Ratio Glucose Calcium Phosphorus Magnesium Total Bilirubin AST ALT Alkaline Phosphatase Total Creatine Kinase Total Protein Albumin Globulin Albumin/Globulin Ratio TSH 2.821 SARS-CoV-2, RNA, NAAT NEGATIVE 03/15/23 03/15/23 14:02 14:02 WBC RBC Hgb Hct MCV MCH MCHC RDW Std Deviation RDW Coeff of Tyesha Plt Count MPV Immature Gran % (Auto) Neut % (Auto) Lymph % (Auto) Whitfield % (Auto) Eos % (Auto) Baso % (Auto) Neut # (Auto) Lymph # (Auto) Whitfield # (Auto) Eos # (Auto) Baso # (Auto) Immature Gran # (Auto) PT 12.3 H INR 1.1 Sodium 137 Potassium 4.4 Chloride 104 Carbon Dioxide 27 Anion Gap 6 BUN 33 H Creatinine 0.84 Est Cr Clr Drug Dosing Not Reportable Est GFR ( Amer) 74.0 Est GFR (Non-Af Amer) 63.8 BUN/Creatinine Ratio 39.3 H Glucose 112 H Calcium 10.3 Phosphorus 3.4 Magnesium 2.0 Total Bilirubin 0.4 AST 7 L ALT < 3 L Alkaline Phosphatase 116 H Total Creatine Kinase 16 L Total Protein 7.0 Albumin 3.3 L Globulin 3.7 Albumin/Globulin Ratio 0.9 TSH SARS-CoV-2, RNA, NAAT Diagnostic Findings Abdomen/Pelvis CT 03/15/23 14:02 CT SCAN OF THE ABDOMEN AND PELVIS WITH IV CONTRAST CLINICAL HISTORY: Generalized abdominal pain. Right hip pain. COMPARISON STUDY: Abdominal CT dated 02/10/2022. Pelvic radiograph dictated 03/20/2022. TECHNIQUE: Following the IV administration of 80 cc of Optiray 320, CT scan of the abdomen and pelvis is performed from the lung bases to the proximal femora. Images are reviewed in the axial, sagittal, and coronal planes. IV contrast was administered without complication. A dose lowering technique was utilized adhering to the principles of ALARA. The skeletal structures are osteopenic. The examination is degraded by motion artifact, as well as by streak artifact from the arms which could not be elevated above the abdomen. There is also streak artifact from orthopedic hardware in the hips. FINDINGS: Lung bases: The heart is top normal in size and without pericardial effusion. The coronary arteries are densely calcified. There is elevation of the right hemidiaphragm with bibasilar scarring/atelectasis. No airspace consolidation typical for pneumonia or pleural effusion is identified. Surgical clips are noted in the left breast. There is a moderate to large hiatal hernia. Liver: The contrast-enhanced liver is normal in size, contour, and attenuation. Fatty infiltration is seen adjacent to the falciform ligament. There is moderate intrahepatic biliary ductal dilatation. The hepatic veins and portal veins are patent. Gallbladder: Surgically absent noting clips in the gallbladder fossa. Spleen: Normal in size and attenuation. Pancreas: Moderately atrophic and grossly unremarkable. Adrenal glands: Unremarkable. Kidneys: The contrast enhanced kidneys demonstrate cortical atrophy and are without hydronephrosis. The kidneys enhance symmetrically. Scattered renal cysts measure up to 1.5 cm. Additional subcentimeter cortical hypodensities also likely represent cysts but are too small for definitive characterization. Renal sinus cysts are noted on the left. There is a 3 mm nonobstructing left renal calculus. Abdominal vasculature: There is advanced atherosclerotic calcification and ectasia of the abdominal aorta. Bowel: There is rectosigmoid fecal impaction. The rectum measures up to 10 cm in diameter. The rectal wall is thickened and hyperemic with surrounding inflammation and the appearance is consistent with a stercoral proctitis. No bowel obstruction is seen. There is [id number] constipation throughout the remainder of the colon. The appendix is normal as visualized. Peritoneum: There is no intraperitoneal free air or abdominal ascites. Lymphadenopathy: None. Pelvic viscera: Evaluation of the pelvis is significantly degraded by streak artifact from metallic hardware present in both hips. The bladder wall is markedly thickened with mucosal hyperenhancement and surrounding inflammation. There is a small focus of intraluminal gas. The endometrial cavity is markedly distended and filled with both gas and debris. There is surrounding hyperemia, and inflammation is present around the uterus. Question a complex fistula between the anterior rectum, the uterus/vagina, and the bladder. This is best seen on the sagittal reformatted images. Skeletal structures: The skeletal structures are osteopenic. No lytic or blastic lesions are seen. There is advanced lumbosacral spondylosis. There is posttraumatic deformity left proximal femur with intertrochanteric and intramedullary nails in place. A right hip arthroplasty is in place. There is a severe chronic compression deformity of T12 with retropulsed fragments. This is similar to the 02/10/2022 examination. IMPRESSION: 1. There is rectosigmoid fecal impaction. The rectum measures up to 10 cm in diameter with evidence of severe stercoral proctitis. 2. There is evidence of cystitis. Correlate with clinical findings and urinalysis. 3. The endometrial cavity is distended and filled with gas and debris. There is associated mucosal hyperemia and inflammation around the uterus. This likely represents infection/endometritis. There may be formed stool within the uterus and vagina. 4. 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 This is best appreciated on the sagittal reformatted images. Clinical correlation will be essential. 5. Moderate to large hiatal hernia. 6. Left-sided nephrolithiasis. 7. Additional findings as above. ACT 112: Negative or not required by law. Electronically signed by: Abdoulaye Brumfield M.D. 03/15/2023 4:57 PM Chest X-Ray 03/15/23 14:02 XR chest 1V portable CLINICAL HISTORY: weakness TECHNIQUE: Single frontal radiograph of the chest was obtained. Comparison: Comparison is made to chest radiograph 02/04/2022 FINDINGS: No lines and tubes are seen. Calcified aortic knob is seen. Interstitial thickening is seen in the lungs. Elevation of the right hemidiaphragm is seen. No evidence of pleural effusion or pneumothorax. IMPRESSION: No acute chest disease. ACT 112: Negative or not required by law. Electronically signed by: Hans Benitez M.D. 03/15/2023 2:55 PM Femur X-Ray 03/15/23 14:02 XR femur RT 2V routine HISTORY: 82 years-old Female pain acute pain in the right lower extremity COMPARISON: 03/20/2022 TECHNIQUE: 2 views of the right femur FINDINGS: Normal appearance the bones. Partially imaged or of hardware of the left femur. There is at least mild osteoarthritis of the right knee. Right knee total joint arthroplasty. 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 Extensive fecal retention of the rectum. IMPRESSION: No acute fracture or dislocation identified. ACT 112: Negative or not required by law. The above report was generated using voice recognition software. It may contain grammatical, syntax or spelling errors. Electronically signed by: Prashanth Morales M.D. 03/15/2023 2:[address] 03/15/23 14:02 CT head/brain wo con CLINICAL HISTORY: ams Technique: Contiguous axial CT images of the head were acquired from the base of the skull to the vertex without intravenous contrast administration. Images were viewed in brain, subdural and bone windows. Automated dose lowering techniques and/or adjustment according to patient size were utilized for this exam. Comparison: None available at the time of this dictation. Findings: Areas of decreased attenuation are present in the periventricular and subcortical white matter bilaterally consistent with small vessel ischemic disease. Generalized cerebral atrophy with commensurate enlargement of the ventricles, sulci, and cisterns is also present. There is no acute intracranial hemorrhage or evidence of acute territorial infarction. No shift of the midline structures, mass effect, or extra-axial abnormalities are shown. Atherosclerotic calcifications are present in the intracranial segments of the internal carotid arteries. Imaged portions of the paranasal sinuses and mastoid air cells are clear. The orbits appear normal. There are no acute fractures of the calvaria or scalp swelling. Impression: No acute intracranial hemorrhage, no evidence of acute territorial infarction or other acute intracranial disease process. ACT 112: Negative or not required by law. Electronically signed by: Hans Benitez M.D. 03/15/2023 4:35 PM Tibia/Fibula X-Ray 03/15/23 14:02 RIGHT TIBIA AND FIBULA 2 VIEWS CLINICAL HISTORY: Right leg pain and bruising. FINDINGS: AP and crosstable lateral views of the right tibia and fibula are obtained. No prior studies are available for comparison at the time of dictation. The skeletal structures are osteopenic. There is no radiographic evidence of right tibial or fibular fracture. The knee and ankle joints are grossly maintained noting degenerative change. There is chondrocalcinosis in the knee. The overlying soft tissues are normal as imaged noting generalized atrophy. IMPRESSION: No acute bony abnormality is identified. Electronically signed by: Abdoulaye Brumfield M.D. 03/15/2023 2:55 PM Supervising Physician Co-Signing Physician Notes Pt seen and examined at bedside with FLOYD Grissom present. Ms. 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 She has been on hospice for severe dementia, and resides in a personal assisted. She presented today d/t worsening AMS described by her children at bedside as decreased responsiveness. Although typically confused, she recognizes family members, is interactive, and has a good appetite. She usually feeds herself. Over the past week she has been progressively less talkative, more lethargic, and taking in less by mouth. She has had very little oral intake the last few days. While Ms. Haq has denied any complaints to her children, she has reported leg pain to her care givers. She currently denies malaise, dizziness, lightheadedness, f/c/n/v, CP, sob, and abdominal pain. That having been said she is oriented x 1 only and is quite lethargic. Interviewing her we had to wake her up for every question. Reliability of ROS is questionable at best. ED course: afebrile, slightly tachycardic (improved with IVF) b/w largely unremarkable workup revealed rectosigmoid fecal impaction, evidence of severe stercoral proctitis, evidence of cystitis. The endometrial cavity is distended and filled with gas and debris. There is associated mucosal hyperemia and inflammation ar ound the uterus. This likely represents infection/endometritis. There may be formed stool within the uterus and vagina. 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 PE: Gen: NAD, frail and elderly appearing Head: NC AT. Temporal wasting, sunken cheeks Eyes: eyes closed, pt defers exam Mouth: dry Neck: trachea midline CV: irreg. S1 S2 Pulm: CTA b/l Abd/GI: +Bs, soft, NT, ND, no guarding Ext: muscle wasting, no edema, peripheral pulses intact Neuro: lethargic, oriented x 1 Psych: unable to fully assess d/t mental status Skin: dressings applied by nursing, not taken down. Skin breakdown Present on admission We discussed the imaging findings with her children at bedside. We explained that the most likely cause for this type of fistula would be underlying malignancy. Regardless of the etiology it would require extensive and invasive surgery(s) to repair. The patient would not be a good candidate for this type of surgery. We talked at length regarding goals of care and confirmed DNR/DNI status. The family would like to find the patient a different living situation. Prior to any of this happening they were questioning whether the patient was receiving adequate care at the personal assisted. They are also interested in changing hospice agencies. We advised them that we will reach out to CM to see what we can do to help. We confirmed with pt's son and daughter (Jo-Ann and Kp) they are not interested in pursuing further work up of complex fistula involving the bladder, uterus/vagina, and rectum as they would not want to put the patient through surgical intervention, or chemo/radiation if appropriate. Rest per attested note above (5) Dementia Dementia behavioral disturbance: without behavioral disturbance Dementia type: unspecified type Qualified Code(s): F03.90 - Unspecified dementia without behavioral disturbance
[2023-03-15 19:56] LABS: Appearance Urine Turbid (Clear); Bacteria Urine Automated 2+ (Negative); Bilirubin Urine Negative (Negative); Blood Urine 2+ (Negative); Color Urine Yellow; Epithelial Cell Urine Auto >30 /lpf (0-5); Glucose Urine UA Negative (Negative); Ketones Urine 1+ (Negative); Leukocyte Esterase Urine 2+ (Negative); Nitrite Urine Negative (Negative); Protein Urine 3+ (Negative); Specific Gravity Urine > 1.045 (1.000-1.030); Urobilinogen Urine Negative (Negative); WBC Urine Automated >30 /hpf (0-5)
[2023-03-15 20:21] LABS: Cast Urine Automated 0 /lpf (0-5)
[2023-03-15] MEDS ORDERED: PROMETHAZINE HCL 6.25 MG in SODIUM CHLORIDE 0.9% 50 ML IV PRN (20:36)
[2023-03-15] MEDS ORDERED: ACETAMINOPHEN 1,000 MG/100 ML VIAL IV PRN (20:36)
[2023-03-15] MEDS ORDERED: PROMETHAZINE HCL 6.25 MG in SODIUM CHLORIDE 0.9% 50 ML IV STA (20:36)
[2023-03-15] MEDS ORDERED: ONDANSETRON INJ 2 MG/ML 2 ML VIAL IV PRN (20:36)
[2023-03-15] MEDS: SODIUM CHLORIDE 0.9% 1000ML 1,000 ML IV SCH (20:51)
[2023-03-16] MEDS ORDERED: PIPERACILLIN/TAZOBACTAM 4.5 GM (over 30 mins) IV ONE (03:00)
[2023-03-16 03:29] LABS: Base Excess ABG -4.1 mEq/L (-9-1.8); HCO3 ABG 22 mmol/L (19-24); Oxygen Saturation ABG 98.1 % (90-95); PCO2 ABG 41 mmHg (35-46); PO2 ABG 126 mmHg (80-95); pH ABG 7.33 (7.35-7.45)
[2023-03-16 03:32] LABS: Allen Test Pos (Pos)
[2023-03-16] MEDS: SODIUM CHLORIDE 0.9% 1000ML 1,000 ML IV SCH (05:12)
[2023-03-16 06:50] LABS: Anion Gap 6 (3-11); BUN Creatinine Ratio 43.9 (10-20); Blood Urea Nitrogen 25 mg/dl (6-23); Calcium 9.1 mg/dl (8.6-10.3); Carbon Dioxide 23 mmol/L (21-32); Chloride 111 mmol/L (98-107); Est GFR (African American) 98.7 ml/min; Est GFR (Non-African American) 85.1 ml/min; Glucose 87 mg/dl (70-99(Fasting)); Sodium 140 mmol/L (136-145)
[2023-03-16 07:05] LABS: Hematocrit (blood only) 33.7 % (37.0-47.0); Hemoglobin 10.2 g/dl (12.0-16.0); Mean Corpuscular Hemoglobin 26.9 pg (25.0-34.0); Mean Corpuscular Hgb Conc 30.3 g/dL (32.0-36.0); Mean Corpuscular Volume 88.9 fL (80.0-100.0); Mean Platelet Volume 9.7 fL (9.4-12.4); Platelet Count 291 K/uL (130-400); RDW Coefficient of Variation 14.6 % (11.5-14.5); RDW Standard Deviation 47.2 fL (36.4-46.3); Red Blood Count 3.79 M/uL (4.20-5.40); White Blood Count 7.79 K/ul (4.8-10.8)
[2023-03-16] MEDS ORDERED: PNEUMOCOCCAL Polysaccharide Vaccine 25mcg/0.5mL vial/Syr IM ONE (08:00)
[2023-03-16] MEDS ORDERED: MAGNESIUM HYDROXIDE SUSP 30 ML UDC PO SCH (08:00)
[2023-03-16] MEDS ORDERED: ENOXAPARIN INJ 40 MG/0.4 ML SYR SQ SCH (09:00)
[2023-03-16] MEDS: ENOXAPARIN INJ 30 MG/0.3 ML SYR SQ SCH ×2 (09:29→09:44)
[2023-03-16] MEDS: PIPERACILLIN/TAZOBACTAM 4.5 GM in DEXTROSE 5% 100 ML IV SCH ×2 (09:38→16:25)
[2023-03-16] MEDS: bisacodyL 5 MG TABEC PO SCH (09:39)
[2023-03-16] MEDS: ACETAMINOPHEN 325 MG TAB PO PRN ×2 (09:39→16:53)
[2023-03-16] MEDS: DOCUSATE SODIUM 100 MG CAP PO SCH ×2 (11:00→20:53)
[2023-03-16] MEDS: POLYETHYLENE (MIRALAX) 17 GM PACK PO SCH ×2 (11:00→20:53)
[2023-03-16] MEDS ORDERED: APIXABAN 5 MG TABLET PO SCH (12:45)
[2023-03-16] MEDS ORDERED: Patient's HEIGHT &/or WEIGHT Needed STA (13:16)
--- NOTE | 2023-03-16 13:58 | Hospitalist Progress Note ---
Date of Service March 16, 2023 Assessment & Plan (1) Rectovaginal fistula: (2) Colovesical fistula: (3) Proctitis: (4) AMS (altered mental status): (5) Dementia: Plan: -Patient was on hospice care at rehab for severe dementia and was brought here for increased abdominal pain, hip pain and lethargy - CT of the abdomen pelvis reviewed personally: IMPRESSION: 1. There is rectosigmoid fecal impaction. The rectum measures up to 10 cm in diameter with evidence of severe stercoral proctitis. 2. There is evidence of cystitis. Correlate with clinical findings and urinalysis. 3. The endometrial cavity is distended and filled with gas and debris. There is associated mucosal hyperemia and inflammation around the uterus. This likely represents infection/endometritis. There may be formed stool within the uterus and vagina. 4. 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 This is best appreciated on the sagittal reformatted images. Clinical correlation will be essential. 5. Moderate to large hiatal hernia. 6. Left-sided nephrolithiasis. Started on bowel regimen. Patient is having loose bowel movements. Currently on Zosyn for both proctitis and cystitis. Urine culture growing gram-negative bacilli - Pain control, antiemetics prn, and tylenol for fever Reviewed home meds; Eliquis listed as home meds. Unable to confirm as per [facility] EMR records. Will remove it from home medications. - will ask for palliative care consultation to assist with hospice transition to another agency, IV fluids - Wound care consult for ulceration on sacrum per family - will ask for frequent turn and repo -Anticipate comfort measures only and go home on hospice, await social work/palliative care consultation to facilitate goals of care Chronic conditions; Mood disordercontinue on mirtazapine and sertraline Constipationcontinue on MiraLAX DVT ppx: -Lovenox CODE: DNR/DNI Dispo: From Yuri trotter Time spent evaluating patient, direct bedside care, chart review, placing orders, interpretation of diagnostic studies, discussion with consultants, patient, and family members, as well as other required patient management activities is 60 minutes Please note the above document was generated using voice recognition software. It may contain grammatical, syntax or spelling errors. Any formal questions or concerns about the content, text or information contained within the body of this dictation should be directly addressed to the provider for clarification Admission and Anticipated Discharge Date Admission Date: March 15, 2023 Subjective Patient seen and examined at bedside. She is lying in the bed comfortably. Reports pain in her left lower quadrant of the abdomen. Physical Exam Physical Exam: General: Awake, oriented to self. 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 Extremities: Normal inspection, no peripheral edema or erythema, calfs nontender to palpation Psych: Normal mood and affect Neuro: Awake, oriented to self. Results & Data Results & Data Vital Signs (Past 12 Hours) Vital Signs Temp Pulse Pulse Resp BP BP Pulse Ox 03/16/23 07:45 03/16/23 08:00 36.4 C L 77 18 122/74 95 03/16/23 03:07 36.4 C L 79 10 L 149/79 H 99 O2 Del Method O2 Flow Rate 03/16/23 07:45 Nasal Cannula 2 03/16/23 08:00 Room Air 03/16/23 03:07 Nasal Cannula 2 Laboratory Results Laboratory Results WBC 7.79 K/ul (4.8-10.8) 03/16/23 06:05 RBC 3.79 M/uL (4.20-5.40) L 03/16/23 06:05 Hgb 10.2 g/dl (12.0-16.0) L 03/16/23 06:05 Hct 33.7 % (37.0-47.0) L 03/16/23 06:05 MCV 88.9 fL (80.0-100.0) 03/16/23 06:05 MCH 26.9 pg (25.0-34.0) 03/16/23 06:05 MCHC 30.3 g/dL (32.0-36.0) L 03/16/23 06:05 RDW Std Deviation 47.2 fL (36.4-46.3) H 03/16/23 06:05 RDW Coeff of Tyesha 14.6 % (11.5-14.5) H 03/16/23 06:05 Plt Count 291 K/uL (130-400) 03/16/23 06:05 MPV 9.7 fL (9.4-12.4) 03/16/23 06:05 Immature Gran % (Auto) 0.3 % 03/15/23 14:02 Neut % (Auto) 79.0 % 03/15/23 14:02 Lymph % (Auto) 9.2 % 03/15/23 14:02 [place] % (Auto) 10.1 % 03/15/23 14:02 Eos % (Auto) 0.9 % 03/15/23 14:02 Baso % (Auto) 0.5 % 03/15/23 14:02 Neut # (Auto) 8.50 K/uL (1.40-6.50) H 03/15/23 14:02 Lymph # (Auto) 0.99 K/uL (1.2-3.4) L 03/15/23 14:02 [place] # (Auto) 1.09 K/uL (0.11-0.59) H 03/15/23 14:02 Eos # (Auto) 0.10 K/uL (0-0.50) 03/15/23 14:02 Baso # (Auto) 0.05 K/uL (0-0.2) 03/15/23 14:02 Immature Gran # (Auto) 0.03 K/uL (0.01-0.20) 03/15/23 14:02 PT 12.3 Seconds (9.0-12.0) H 03/15/23 14:02 INR 1.1 (0.9-1.1) 03/15/23 14:02 ABG pH 7.33 (7.35-7.45) L 03/16/23 03: ABG pCO2 41 mmHg (35-46) 03/16/23 03:23 ABG pO2 126 mmHg (80-95) H 03/16/23 03:23 ABG HCO3 22 mmol/L (19-24) 03/16/23 03:23 ABG O2 Saturation 98.1 % (90-95) H 03/16/23 03:23 ABG Base Excess -4.1 mEq/L (-9-1.8) 03/16/23 03:23 Galileo Test Pos (Pos) 03/16/23 03:23 Oxygen Given FLOW RATE 2 03/16/23 03:23 Sodium 140 mmol/L (136-145) 03/16/23 06:05 Potassium 4.0 mmol/L (3.5-5.1) 03/16/23 06:05 Chloride 111 mmol/L (98-107) H 03/16/23 06:05 Carbon Dioxide 23 mmol/L (21-32) 03/16/23 06:05 Anion Gap 6 (3-11) 03/16/23 06:05 BUN 25 mg/dl (6-23) H 03/16/23 06:05 Creatinine 0.57 mg/dl (0.6-1.2) L 03/16/23 06:05 Est Cr Clr Drug Dosing Not Reportable 03/16/23 06:05 Est GFR ( Amer) 98.7 ml/min 03/16/23 06:05 Est GFR (Non-Af Amer) 85.1 ml/min 03/16/23 06:05 BUN/Creatinine Ratio 43.9 (10-20) H 03/16/23 06:05 Glucose 87 mg/dl (70-99(Fasting)) 03/16/23 06:05 Calcium 9.1 mg/dl (8.6-10.3) 03/16/23 06:05 Phosphorus 3.4 mg/dl (2.5-4.9) 03/15/23 14:02 Magnesium 2.0 mg/dl (1.7-2.4) 03/15/23 14:02 Total Bilirubin 0.4 mg/dl (0.2-1.0) 03/15/23 14:02 AST 7 U/L (13-39) L 03/15/23 14:02 ALT < 3 U/L (7-52) L 03/15/23 14:02 Alkaline Phosphatase 116 U/L (34-104) H 03/15/23 14:02 Total Creatine Kinase 16 U/L (26-192) L 03/15/23 14:02 Total Protein 7.0 gm/dl (6.0-8.3) 03/15/23 14:02 Albumin 3.3 gm/dl (3.4-5.0) L 03/15/23 14:02 Globulin 3.7 gm/dl (2.5-4.0) 03/15/23 14:02 Albumin/Globulin Ratio 0.9 (0.9-2) 03/15/23 14:02 Procalcitonin 0.06 ng/ml (0-0.5) 03/15/23 14:02 TSH 2.821 uIu/ml (0.300-4.500) 03/15/23 14:02 Urine Color Yellow 03/15/23 19:38 Urine Appearance Turbid (Clear) A 03/15/23 19:38 Urine pH 6.0 (4.5-7.5) 03/15/23 19:38 Ur Specific Felda > 1.045 (1.000-1.030) H 03/15/23 19:38 Urine Protein 3+ (Negative) H 03/15/23 19:38 Urine Glucose (UA) Negative (Negative) 03/15/23 19:38 Urine Ketones 1+ (Negative) H 03/15/23 19:38 Urine Blood 2+ (Negative) H 03/15/23 19:38 Urine Nitrite Negative (Negative) 03/15/23 19:38 Urine Bilirubin Negative (Negative) 03/15/23 19:38 Urine Urobilinogen Negative (Negative) 03/15/23 19:38 Ur Leukocyte Esterase 2+ (Negative) H 03/15/23 19:38 Urine WBC (Auto) >30 /hpf (0-5) H 03/15/23 19:38 Urine RBC (Auto) 10-30 /hpf (0-4) H 03/15/23 19:38 U Hyaline Cast (Auto) 0 /lpf (0-5) 03/15/23 19:38 U Epithel Cells (Auto) >30 /lpf (0-5) H 03/15/23 19:38 Urine Bacteria (Auto) 2+ (Negative) H 03/15/23 19:38 Urine Yeast Not Reportable 03/15/23 19:38 SARS-CoV-2, RNA, NAAT NEGATIVE (NEGATIVE) 03/15/23 14:10 Impressions Abdomen/Pelvis CT 03/15/23 14:02 CT SCAN OF THE ABDOMEN AND PELVIS WITH IV CONTRAST CLINICAL HISTORY: Generalized abdominal pain. Right hip pain. COMPARISON STUDY: Abdominal CT dated 02/10/2022. Pelvic radiograph dictated 03/20/2022. TECHNIQUE: Following the IV administration of 80 cc of Optiray 320, CT scan of the abdomen and pelvis is performed from the lung bases to the proximal femora. Images are reviewed in the axial, sagittal, and coronal planes. IV contrast was administered without complication. A dose lowering technique was utilized adhering to the principles of ALARA. The skeletal structures are osteopenic. The examination is degraded by motion artifact, as well as by streak artifact from the arms which could not be elevated above the abdomen. There is also streak artifact from orthopedic hardware in the hips. FINDINGS: Lung bases: The heart is top normal in size and without pericardial effusion. The coronary arteries are densely calcified. There is elevation of the right hemidiaphragm with bibasilar scarring/atelectasis. No airspace consolidation typical for pneumonia or pleural effusion is identified. Surgical clips are noted in the left breast. There is a moderate to large hiatal hernia. Liver: The contrast-enhanced liver is normal in size, contour, and attenuation. Fatty infiltration is seen adjacent to the falciform ligament. There is moderate intrahepatic biliary ductal dilatation. The hepatic veins and portal veins are patent. Gallbladder: Surgically absent noting clips in the gallbladder fossa. Spleen: Normal in size and attenuation. Pancreas: Moderately atrophic and grossly unremarkable. Adrenal glands: Unremarkable. Kidneys: The contrast enhanced kidneys demonstrate cortical atrophy and are without hydronephrosis. The kidneys enhance symmetrically. Scattered renal cysts measure up to 1.5 cm. Additional subcentimeter cortical hypodensities also likely represent cysts but are too small for definitive characterization. Renal sinus cysts are noted on the left. There is a 3 mm nonobstructing left renal calculus. Abdominal vasculature: There is advanced atherosclerotic calcification and ectasia of the abdominal aorta. Bowel: There is rectosigmoid fecal impaction. The rectum measures up to 10 cm in diameter. The rectal wall is thickened and hyperemic with surrounding inflammation and the appearance is consistent with a stercoral proctitis. No bowel obstruction is seen. There is [id number] constipation throughout the remainder of the colon. The appendix is normal as visualized. Peritoneum: There is no intraperitoneal free air or abdominal ascites. Lymphadenopathy: None. Pelvic viscera: Evaluation of the pelvis is significantly degraded by streak artifact from metallic hardware present in both hips. The bladder wall is markedly thickened with mucosal hyperenhancement and surrounding inflammation. There is a small focus of intraluminal gas. The endometrial cavity is markedly distended and filled with both gas and debris. There is surrounding hyperemia, and inflammation is present around the uterus. Question a complex fistula between the anterior rectum, the uterus/vagina, and the bladder. This is best seen on the sagittal reformatted images. Skeletal structures: The skeletal structures are osteopenic. No lytic or blastic lesions are seen. There is advanced lumbosacral spondylosis. There is posttraumatic deformity left proximal femur with intertrochanteric and intramedullary nails in place. A right hip arthroplasty is in place. There is a severe chronic compression deformity of T12 with retropulsed fragments. This is similar to the 02/10/2022 examination. IMPRESSION: 1. There is rectosigmoid fecal impaction. The rectum measures up to 10 cm in diameter with evidence of severe stercoral proctitis. 2. There is evidence of cystitis. Correlate with clinical findings and urinalysis. 3. The endometrial cavity is distended and filled with gas and debris. There is associated mucosal hyperemia and inflammation around the uterus. This likely represents infection/endometritis. There may be formed stool within the uterus and vagina. 4. 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 This is best appreciated on the sagittal reformatted images. Clinical correlation will be essential. 5. Moderate to large hiatal hernia. 6. Left-sided nephrolithiasis. 7. Additional findings as above. ACT 112: Negative or not required by law. Electronically signed by: Abdoulaye Brumfield M.D. 03/15/2023 4:57 PM Chest X-Ray 03/15/23 14:02 XR chest 1V portable CLINICAL HISTORY: weakness TECHNIQUE: Single frontal radiograph of the chest was obtained. Comparison: Comparison is made to chest radiograph 02/04/2022 FINDINGS: No lines and tubes are seen. Calcified aortic knob is seen. Interstitial thickening is seen in the lungs. Elevation of the right hemidiaphragm is seen. No evidence of pleural effusion or pneumothorax. IMPRESSION: No acute chest disease. ACT 112: Negative or not required by law. Electronically signed by: Hans Benitez M.D. 03/15/2023 2:55 PM Femur X-Ray 03/15/23 14:02 XR femur RT 2V routine HISTORY: 82 years-old Female pain acute pain in the right lower extremity COMPARISON: 03/20/2022 TECHNIQUE: 2 views of the right femur FINDINGS: Normal appearance the bones. Partially imaged or of hardware of the left femur. There is at least mild osteoarthritis of the right knee. Right knee total joint arthroplasty. 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 Extensive fecal retention of the rectum. IMPRESSION: No acute fracture or dislocation identified. ACT 112: Negative or not required by law. The above report was generated using voice recognition software. It may contain grammatical, syntax or spelling errors. Electronically signed by: Prashanth Morales M.D. 03/15/2023 2:[address] 03/15/23 14:02 CT head/brain wo con CLINICAL HISTORY: ams Technique: Contiguous axial CT images of the head were acquired from the base of the skull to the vertex without intravenous contrast administration. Images were viewed in brain, subdural and bone windows. Automated dose lowering techniques and/or adjustment according to patient size were utilized for this exam. Comparison: None available at the time of this dictation. Findings: Areas of decreased attenuation are present in the periventricular and subcortical white matter bilaterally consistent with small vessel ischemic disease. Generalized cerebral atrophy with commensurate enlargement of the ventricles, sulci, and cisterns is also present. There is no acute intracranial hemorrhage or evidence of acute territorial infarction. No shift of the midline structures, mass effect, or extra-axial abnormalities are shown. Atherosclerotic calcifications are present in the intracranial segments of the internal carotid arteries. Imaged portions of the paranasal sinuses and mastoid air cells are clear. The orbits appear normal. There are no acute fractures of the calvaria or scalp swelling. Impression: No acute intracranial hemorrhage, no evidence of acute territorial infarction or other acute intracranial disease process. ACT 112: Negative or not required by law. Electronically signed by: Hans Benitez M.D. 03/15/2023 4:35 PM Tibia/Fibula X-Ray 03/15/23 14:02 RIGHT TIBIA AND FIBULA 2 VIEWS CLINICAL HISTORY: Right leg pain and bruising. FINDINGS: AP and crosstable lateral views of the right tibia and fibula are obta ined. No prior studies are available for comparison at the time of dictation. The skeletal structures are osteopenic. There is no radiographic evidence of right tibial or fibular fracture. The knee and ankle joints are grossly maintained noting degenerative change. There is chondrocalcinosis in the knee. The overlying soft tissues are normal as imaged noting generalized atrophy. IMPRESSION: No acute bony abnormality is identified. Electronically signed by: Abdoulaye Brumfield M.D. 03/15/2023 2:55 PM
[2023-03-16] MEDS: ALPRAZolam 0.25 MG TABLET PO PRN (18:04)
[2023-03-16] MEDS: MIRTAZAPINE TAB 15 MG TAB PO SCH (20:53)
[2023-03-16] MEDS: PANTOprazole 40 MG TAB PO SCH (20:54)
[2023-03-16] MEDS: FAMOTIDINE 20 MG TAB PO SCH (20:54)
[2023-03-16] MEDS ORDERED: DOCUSATE SODIUM 100 MG CAP PO SCH (21:00)
[2023-03-17] MEDS: PIPERACILLIN/TAZOBACTAM 4.5 GM in DEXTROSE 5% 100 ML IV SCH ×2 (00:19→09:34)
--- NOTE | 2023-03-17 06:19 | Electrocardiogram Report ---
Test Reason : Blood Pressure : / mmHG Vent. Rate : 102 BPM Atrial Rate : 102 BPM P-R Int : 140 ms QRS Dur : 070 ms QT Int : 334 ms P-R-T Axes : 036 -04 002 degrees QTc Int : 435 ms Sinus tachycardia Nonspecific ST abnormality Abnormal ECG When compared with ECG of 02-FEB-2022 14:56, No significant change was found Confirmed by Sukhwinder Callejas ([id number]) on 03/17/2023 6:19:28 AM Referred By: [facility] CastroFram[facility] Confirmed By:Sukhwinder Callejas
[2023-03-17] MEDS: ENOXAPARIN INJ 30 MG/0.3 ML SYR SQ SCH (08:15)
[2023-03-17] MEDS: FAMOTIDINE 20 MG TAB PO SCH ×2 (08:15→20:12)
[2023-03-17] MEDS: SERTRALINE HCL 50 MG TABLET PO SCH (08:15)
[2023-03-17] MEDS: DOCUSATE SODIUM 100 MG CAP PO SCH ×2 (08:15→20:13)
[2023-03-17] MEDS: PANTOprazole 40 MG TAB PO SCH ×2 (08:15→20:12)
[2023-03-17] MEDS: LORATADINE 10 MG TAB PO SCH (08:15)
[2023-03-17] MEDS: POLYETHYLENE (MIRALAX) 17 GM PACK PO SCH ×2 (08:16→20:08)
[2023-03-17 08:19] LABS: Basophils # (auto) 0.05 K/uL (0-0.2); Basophils % (auto) 0.6 %; Eosinophils # (auto) 0.16 K/uL (0-0.50); Hematocrit (blood only) 35.2 % (37.0-47.0); Hemoglobin 11.2 g/dl (12.0-16.0); Immature Granulocytes # (auto) 0.04 K/uL (0.01-0.20); Immature Granulocytes % (auto) 0.5 %; Lymphocytes # (auto) 1.51 K/uL (1.2-3.4); Lymphocytes % (auto) 18.6 %; Mean Corpuscular Hemoglobin 26.5 pg (25.0-34.0); Mean Corpuscular Hgb Conc 31.8 g/dL (32.0-36.0); Mean Corpuscular Volume 83.4 fL (80.0-100.0); Mean Platelet Volume 9.4 fL (9.4-12.4); Monocytes # (auto) 0.84 K/uL (0.11-0.59); Monocytes % (auto) 10.3 %; Neutrophils # (auto) 5.54 K/uL (1.40-6.50); Platelet Count 355 K/uL (130-400); RDW Coefficient of Variation 14.1 % (11.5-14.5); Red Blood Count 4.22 M/uL (4.20-5.40); White Blood Count 8.14 K/ul (4.8-10.8)
[2023-03-17] MEDS: bisacodyL 5 MG TABEC PO SCH (08:22)
[2023-03-17 08:27] LABS: Calcium 9.3 mg/dl (8.6-10.3); Creatinine Clr Calc Pharmacy 66.2 ml/min; Est GFR (Non-African American) 88.9 ml/min; Potassium 3.3 mmol/L (3.5-5.1)
[2023-03-17] MEDS: ACETAMINOPHEN 325 MG TAB PO PRN ×2 (10:41→17:01)
[2023-03-17] MEDS: ALPRAZolam 0.25 MG TABLET PO PRN (10:41)
--- NOTE | 2023-03-17 12:31 | Hospitalist Progress Note ---
Date of Service March 17, 2023 Assessment & Plan (1) Rectovaginal fistula: (2) Colovesical fistula: (3) Proctitis: (4) AMS (altered mental status): (5) Dementia: Plan: -Patient was on hospice care at rehab for severe dementia and was brought here for increased abdominal pain, hip pain and lethargy - CT of the abdomen pelvis reviewed personally: IMPRESSION: 1. There is rectosigmoid fecal impaction. The rectum measures up to 10 cm in diameter with evidence of severe stercoral proctitis. 2. There is evidence of cystitis. Correlate with clinical findings and urinalysis. 3. The endometrial cavity is distended and filled with gas and debris. There is associated mucosal hyperemia and inflammation around the uterus. This likely represents infection/endometritis. There may be formed stool within the uterus and vagina. 4. 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 This is best appreciated on the sagittal reformatted images. Clinical correlation will be essential. 5. Moderate to large hiatal hernia. 6. Left-sided nephrolithiasis. Started on bowel regimen. Patient is having loose bowel movements. Was initially started on Zosyn for both proctitis and cystitis. Urine culture growing gram-negative bacilli; Klebsiella. Antibiotics changed to ceftriaxone and Flagyl. - Pain control, antiemetics prn, and tylenol for fever Reviewed home meds; Eliquis listed as home meds. Unable to confirm as per [facility] EMR records. Will remove it from home medications. - will ask for palliative care consultation to assist with hospice transition to another agency, IV fluids - Wound care consult for ulceration on sacrum per family - will ask for frequent turn and repo -Anticipate comfort measures only and go home on hospice, await social work/palliative care consultation to facilitate goals of care Chronic conditions; Mood disordercontinue on mirtazapine and sertraline Constipationcontinue on MiraLAX, Dulcolax, DVT ppx: -Lovenox CODE: DNR/DNI Dispo: From Yuri trotter Time spent evaluating patient, direct bedside care, chart review, placing orders, interpretation of diagnostic studies, discussion with consultants, patient, and family members, as well as other required patient management act ivities is 60 minutes Please note the above document was generated using voice recognition software. It may contain grammatical, syntax or spelling errors. Any formal questions or concerns about the content, text or information contained within the body of this dictation should be directly addressed to the provider for clarification Admission and Anticipated Discharge Date Admission Date: March 15, 2023 Subjective Patient seen and examined at bedside. She is awake, oriented to self. Denies any pain or discomfort. Malhotra bag with clear urine Review of Systems Review of Systems: All systems reviewed & are unremarkable except as noted in Subjective Physical Exam Physical Exam: General: Awake, oriented to self. 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 Extremities: Normal inspection, no peripheral edema or erythema, calfs nontender to palpation Psych: Normal mood and affect Neuro: Awake, oriented to self. Results & Data Results & Data Vital Signs (Past 12 Hours) Vital Signs Temp Pulse Resp BP Pulse Ox O2 Del Method 03/17/23 07:35 36.7 C 93 H 16 184/92 H 96 Room Air 03/17/23 07:34 Room Air Laboratory Results Laboratory Results WBC 8.14 K/ul (4.8-10.8) 03/17/23 07:31 RBC 4.22 M/uL (4.20-5.40) 03/17/23 07:31 Hgb 11.2 g/dl (12.0-16.0) L 03/17/23 07:31 Hct 35.2 % (37.0-47.0) L 03/17/23 07:31 MCV 83.4 fL (80.0-100.0) D 03/17/23 07:31 MCH 26.5 pg (25.0-34.0) 03/17/23 07:31 MCHC 31.8 g/dL (32.0-36.0) L 03/17/23 07:31 RDW Std Deviation 43.0 fL (36.4-46.3) 03/17/23 07:31 RDW Coeff of Tyesha 14.1 % (11.5-14.5) 03/17/23 07:31 Plt Count 355 K/uL (130-400) 03/17/23 07:31 MPV 9.4 fL (9.4-12.4) 03/17/23 07:31 Immature Gran % (Auto) 0.5 % 03/17/23 07:31 Neut % (Auto) 68.0 % 03/17/23 07:31 Lymph % (Auto) 18.6 % 03/17/23 07:31 [place] % (Auto) 10.3 % 03/17/23 07:31 Eos % (Auto) 2.0 % 03/17/23 07:31 Baso % (Auto) 0.6 % 03/17/23 07:31 Neut # (Auto) 5.54 K/uL (1.40-6.50) 03/17/23 07:31 Lymph # (Auto) 1.51 K/uL (1.2-3.4) 03/17/23 07:31 [place] # (Auto) 0.84 K/uL (0.11-0.59) H 03/17/23 07:31 Eos # (Auto) 0.16 K/uL (0-0.50) 03/17/23 07:31 Baso # (Auto) 0.05 K/uL (0-0.2) 03/17/23 07:31 Immature Gran # (Auto) 0.04 K/uL (0.01-0.20) 03/17/23 07:31 PT 12.3 Seconds (9.0-12.0) H 03/15/23 14:02 INR 1.1 (0.9-1.1) 03/15/23 14:02 ABG pH 7.33 (7.35-7.45) L 03/16/23 03:23 ABG pCO2 41 mmHg (35-46) 03/16/23 03:23 ABG pO2 126 mmHg (80-95) H 03/16/23 03:23 ABG HCO3 22 mmol/L (19-24) 03/16/23 03:23 ABG O2 Saturation 98.1 % (90-95) H 03/16/23 03:23 ABG Base Excess -4.1 mEq/L (-9-1.8) 03/16/23 03:23 [place] Test Pos (Pos) 03/16/23 03:23 Oxygen Given FLOW RATE 2 03/16/23 03:23 Sodium 138 mmol/L (136-145) 03/17/23 07:31 Potassium 3.3 mmol/L (3.5-5.1) L 03/17/23 07:31 Chloride 106 mmol/L (98-107) 03/17/23 07:31 Carbon Dioxide 25 mmol/L (21-32) 03/17/23 07:31 Anion Gap 7 (3-11) 03/17/23 07:31 BUN 11 mg/dl (6-23) 03/17/23 07:31 Creatinine 0.50 mg/dl (0.6-1.2) L 03/17/23 07:31 Est Cr Clr Drug Dosing 66.2 ml/min 03/17/23 07:31 Est GFR ( Amer) 103.0 ml/min 03/17/23 07:31 Est GFR (Non-Af Amer) 88.9 ml/min 03/17/23 07:31 BUN/Creatinine Ratio 22.0 (10-20) H 03/17/23 07:31 Glucose 94 mg/dl (70-99(Fasting)) 03/17/23 07:31 Calcium 9.3 mg/dl (8.6-10.3) 03/17/23 07:31 Phosphorus 3.4 mg/dl (2.5-4.9) 03/15/23 14:02 Magnesium 2.0 mg/dl (1.7-2.4) 03/15/23 14:02 Total Bilirubin 0.4 mg/dl (0.2-1.0) 03/15/23 14:02 AST 7 U/L (13-39) L 03/15/23 14:02 ALT < 3 U/L (7-52) L 03/15/23 14:02 Alkaline Phosphatase 116 U/L (34-104) H 03/15/23 14:02 Total Creatine Kinase 16 U/L (26-192) L 03/15/23 14:02 Total Protein 7.0 gm/dl (6.0-8.3) 03/15/23 14:02 Albumin 3.3 gm/dl (3.4-5.0) L 03/15/23 14:02 Globulin 3.7 gm/dl (2.5-4.0) 03/15/23 14:02 Albumin/Globulin Ratio 0.9 (0.9-2) 03/15/23 14:02 Procalcitonin 0.06 ng/ml (0-0.5) 03/15/23 14:02 TSH 2.821 uIu/ml (0.300-4.500) 03/15/23 14:02 Urine Color Yellow 03/15/23 19:38 Urine Appearance Turbid (Clear) A 03/15/23 19:38 Urine pH 6.0 (4.5-7.5) 03/15/23 19:38 Ur Specific [place] > 1.045 (1.000-1.030) H 03/15/23 19:38 Urine Protein 3+ (Negative) H 03/15/23 19:38 Urine Glucose (UA) Negative (Negative) 03/15/23 19:38 Urine Ketones 1+ (Negative) H 03/15/23 19:38 Urine Blood 2+ (Negative) H 03/15/23 19:38 Urine Nitrite Negative (Negative) 03/15/23 19:38 Urine Bilirubin Negative (Negative) 03/15/23 19:38 Urine Urobilinogen Negative (Negative) 03/15/23 19:38 Ur Leukocyte Esterase 2+ (Negative) H 03/15/23 19:38 Urine WBC (Auto) >30 /hpf (0-5) H 03/15/23 19:38 Urine RBC (Auto) 10-30 /hpf (0-4) H 03/15/23 19:38 U Hyaline Cast (Auto) 0 /lpf (0-5) 03/15/23 19:38 U Epithel Cells (Auto) >30 /lpf (0-5) H 03/15/23 19:38 Urine Bacteria (Auto) 2+ (Negative) H 03/15/23 19:38 Urine Yeast Not Reportable 03/15/23 19:38 SARS-CoV-2, RNA, NAAT NEGATIVE (NEGATIVE) 03/15/23 14:10 Impressions Abdomen/Pelvis CT 03/15/23 14:02 CT SCAN OF THE ABDOMEN AND PELVIS WITH IV CONTRAST CLINICAL HISTORY: Generalized abdominal pain. Right hip pain. COMPARISON STUDY: Abdominal CT dated 02/10/2022. Pelvic radiograph dictated 03/20/2022. TECHNIQUE: Following the IV administration of 80 cc of Optiray 320, CT scan of the abdomen and pelvis is performed from the lung bases to the proximal femora. Images are reviewed in the axial, sagittal, and coronal planes. IV contrast was administered without complication. A dose lowering technique was utilized adhering to the principles of ALARA. The skeletal structures are osteopenic. The examination is degraded by motion artifact, as well as by streak artifact from the arms which could not be elevated above the abdomen. There is also streak artifact from orthopedic hardware in the hips. FINDINGS: Lung bases: The heart is top normal in size and without pericardial effusion. The coronary arteries are densely calcified. There is elevation of the right hemidiaphragm with bibasilar scarring/atelectasis. No airspace consolidation typical for pneumonia or pleural effusion is identified. Surgical clips are noted in the left breast. There is a moderate to large hiatal hernia. Liver: The contrast-enhanced liver is normal in size, contour, and attenuation. Fatty infiltration is seen adjacent to the falciform ligament. There is moderate intrahepatic biliary ductal dilatation. The hepatic veins and portal veins are patent. Gallbladder: Surgically absent noting clips in the gallbladder fossa. Spleen: Normal in size and attenuation. Pancreas: Moderately atrophic and grossly unremarkable. Adrenal glands: Unremarkable. Kidneys: The contrast enhanced kidneys demonstrate cortical atrophy and are without hydronephrosis. The kidneys enhance symmetrically. Scattered renal cysts measure up to 1.5 cm. Additional subcentimeter cortical hypodensities also likely represent cysts but are too small for definitive characterization. Renal sinus cysts are noted on the left. There is a 3 mm nonobstructing left renal calculus. Abdominal vasculature: There is advanced atherosclerotic calcification and ectasia of the abdominal aorta. Bowel: There is rectosigmoid fecal impaction. The rectum measures up to 10 cm in diameter. The rectal wall is thickened and hyperemic with surrounding inflammation and the appearance is consistent with a stercoral proctitis. No bowel obstruction is seen. There is [id number] constipation throughout the remainder of the colon. The appendix is normal as visualized. Peritoneum: There is no intraperitoneal free air or abdominal ascites. Lymphadenopathy: None. Pelvic viscera: Evaluation of the pelvis is significantly degraded by streak artifact from metallic hardware present in both hips. The bladder wall is markedly thickened with mucosal hyperenhancement and surrounding inflammation. There is a small focus of intraluminal gas. The endometrial cavity is markedly distended and filled with both gas and debris. There is surrounding hyperemia, and inflammation is present around the uterus. Question a complex fistula between the anterior rectum, the uterus/vagina, and the bladder. This is best seen on the sagittal reformatted images. Skeletal structures: The skeletal structures are osteopenic. No lytic or blastic lesions are seen. There is advanced lumbosacral spondylosis. There is posttraumatic deformity left proximal femur with intertrochanteric and intramedullary nails in place. A right hip arthroplasty is in place. There is a severe chronic compression deformity of T12 with retropulsed fragments. This is similar to the 02/10/2022 examination. IMPRESSION: 1. There is rectosigmoid fecal impaction. The rectum measures up to 10 cm in diameter with evidence of severe stercoral proctitis. 2. There is evidence of cystitis. Correlate with clinical findings and urinalysis. 3. The endometrial cavity is distended and filled with gas and debris. There is associated mucosal hyperemia and inflammation around the uterus. This likely represents infection/endometritis. There may be formed stool within the uterus and vagina. 4. 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 This is best appreciated on the sagittal reformatted images. Clinical correlation will be essential. 5. Moderate to large hiatal hernia. 6. Left-sided nephrolithiasis. 7. Additional findings as above. ACT 112: Negative or not required by law. Electronically signed by: Abdoulaye Brumfield M.D. 03/15/2023 4:57 PM Chest X-Ray 03/15/23 14:02 XR chest 1V portable CLINICAL HISTORY: weakness TECHNIQUE: Single frontal radiograph of the chest was obtained. Comparison: Comparison is made to chest radiograph 02/04/2022 FINDINGS: No lines and tubes are seen. Calcified aortic knob is seen. Interstitial thickening is seen in the lungs. Elevation of the right hemidiaphragm is seen. No evidence of pleural effusion or pneumothorax. IMPRESSION: No acute chest disease. ACT 112: Negative or not required by law. Electronically signed by: Hans Benitez M.D. 03/15/2023 2:55 PM Femur X-Ray 03/15/23 14:02 XR femur RT 2V routine HISTORY: 82 years-old Female pain acute pain in the right lower extremity COMPARISON: 03/20/2022 TECHNIQUE: 2 views of the right femur FINDINGS: Normal appearance the bones. Partially imaged or of hardware of the left femur. There is at least mild osteoarthritis of the right knee. Right knee total joint arthroplasty. 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 Extensive fecal retention of the rectum. IMPRESSION: No acute fracture or dislocation identified. ACT 112: Negative or not required by law. The above report was generated using voice recognition software. It may contain grammatical, syntax or spelling errors. Electronically signed by: Prashanth Morales M.D. 03/15/2023 2:[address] 03/15/23 14:02 CT head/brain wo con CLINICAL HISTORY: ams Technique: Contiguous axial CT images of the head were acquired from the base of the skull to the vertex without intravenous contrast administration. Images were viewed in brain, subdural and bone windows. Automated dose lowering techniques and/or adjustment according to patient size were utilized for this exam. Comparison: None available at the time of this dictation. Findings: Areas of decreased attenuation are present in the periventricular and subcortical white matter bilaterally consistent with small vessel ischemic disease. Generalized cerebral atrophy with commensurate enlargement of the ventricles, sulci, and cisterns is also present. There is no acute intracranial hemorrhage or evidence of acute territorial infarction. No shift of the midline structures, mass effect, or extra-axial abnormalities are shown. Atherosclerotic calcifications are present in the intracranial segments of the internal carotid arteries. Imaged portions of the paranasal sinuses and mastoid air cells are clear. The orbits appear normal. There are no acute fractures of the calvaria or scalp swelling. Impression: No acute intracranial hemorrhage, no evidence of acute territorial infarction or other acute intracranial disease process. ACT 112: Negative or not required by law. Electronically signed by: Hans Benitez M.D. 03/15/2023 4:35 PM Tibia/Fibula X-Ray 03/15/23 14:02 RIGHT TIBIA AND FIBULA 2 VIEWS CLINICAL HISTORY: Right leg pain and bruising. FINDINGS: AP and crosstable lateral views of the right tibia and fibula are obtained. No prior studies are available for comparison at the time of dictation. The skeletal structures are osteopenic. There is no radiographic evidence of right tibial or fibular fracture. The knee and ankle joints are grossly maintained noting degenerative change. There is chondrocalcinosis in the knee. The overlying soft tissues are normal as imaged noting generalized atrophy. IMPRESSION: No acute bony abnormality is identified. Electronically signed by: Abdoulaye Brumfield M.D. 03/15/2023 2:55 PM
[2023-03-17] MEDS: metroNIDAZOLE 500 MG/100 ML BAG IV SCH ×2 (13:33→20:09)
[2023-03-17] MEDS: cefTRIAXone SODIUM 2,000 MG in DEXTROSE 5% 50 ML IV SCH (13:33)
[2023-03-17] MEDS: MIRTAZAPINE TAB 15 MG TAB PO SCH (20:13)
[2023-03-17] MEDS ORDERED: cloNIDine HCL 0.1 MG TAB PO ONE (23:00)
[2023-03-18] MEDS: metroNIDAZOLE 500 MG/100 ML BAG IV SCH ×3 (05:12→20:40)
[2023-03-18 07:58] LABS: Basophils # (auto) 0.04 K/uL (0-0.2); Basophils % (auto) 0.4 %; Eosinophils # (auto) 0.14 K/uL (0-0.50); Eosinophils % (auto) 1.3 %; Hematocrit (blood only) 37.6 % (37.0-47.0); Hemoglobin 12.1 g/dl (12.0-16.0); Immature Granulocytes # (auto) 0.06 K/uL (0.01-0.20); Immature Granulocytes % (auto) 0.6 %; Lymphocytes # (auto) 1.75 K/uL (1.2-3.4); Lymphocytes % (auto) 16.1 %; Mean Corpuscular Hemoglobin 26.4 pg (25.0-34.0); Mean Corpuscular Hgb Conc 32.2 g/dL (32.0-36.0); Mean Corpuscular Volume 82.1 fL (80.0-100.0); Mean Platelet Volume 9.2 fL (9.4-12.4); Monocytes # (auto) 1.13 K/uL (0.11-0.59); Monocytes % (auto) 10.4 %; Neutrophils # (auto) 7.72 K/uL (1.40-6.50); Neutrophils % (auto) 71.2 %; Platelet Count 398 K/uL (130-400); RDW Coefficient of Variation 14.2 % (11.5-14.5); RDW Standard Deviation 42.5 fL (36.4-46.3); Red Blood Count 4.58 M/uL (4.20-5.40); White Blood Count 10.84 K/ul (4.8-10.8)
[2023-03-18 08:05] LABS: BUN Creatinine Ratio 15.3 (10-20); Calcium 9.5 mg/dl (8.6-10.3); Creatinine Clr Calc Pharmacy 56.1 ml/min; Est GFR (African American) 97.5 ml/min; Est GFR (Non-African American) 84.2 ml/min
[2023-03-18] MEDS: PANTOprazole 40 MG TAB PO SCH ×2 (08:16→20:45)
[2023-03-18] MEDS: ENOXAPARIN INJ 30 MG/0.3 ML SYR SQ SCH (08:16)
[2023-03-18] MEDS: DOCUSATE SODIUM 100 MG CAP PO SCH ×2 (08:16→20:45)
[2023-03-18] MEDS: FAMOTIDINE 20 MG TAB PO SCH ×2 (08:16→20:45)
[2023-03-18] MEDS: SERTRALINE HCL 50 MG TABLET PO SCH (08:16)
[2023-03-18] MEDS: POLYETHYLENE (MIRALAX) 17 GM PACK PO SCH ×2 (08:16→20:42)
[2023-03-18] MEDS: LORATADINE 10 MG TAB PO SCH (08:16)
[2023-03-18] MEDS: bisacodyL 5 MG TABEC PO SCH (08:17)
[2023-03-18] MEDS: POTASSIUM CHLORIDE / WTR 10 MEQ/100 ML PLCT IV SCH ×4 (09:49→13:18)
--- NOTE | 2023-03-18 11:54 | Palliative Care Consultation ---
Date of Consultation March 18, 2023 Assessment & Plan (1) Palliative care encounter: I met with Mrs. Haq's daughter, Jo-Ann, at bedside. She tells me that both her mother and father were on hospice until he in January. While her father was clear about his goals for care, her mother never really discussed them. She does have a living will which says that she would not want any interventions but Jo-Ann is not entirely sure that this applies to her current situation. She does want comfort to be a major focus of care for Analy, but would like to continue antibiotics and current care. She would not want surgery or other aggressive interventions. She recognizes that nAaly has had a decline in the last few months and does not have a good quality of life. She is concerned that return to assisted living may not provide the level of care she needs with a fistula and skin breakdown. She also understands that Analy is likely to have recurrent infections. She and her brother are considering SNF placement. We discussed SNF with skilled care versus hospice care. She would want to have skilled care at least initially. We discussed POLST form as Jo-Ann does not think that her mother would want frequent hospitalization and would prefer to remain at SNF. She would like to discuss this with her brother. We will meet tomorrow, after she has had a chance to discuss with him and complete POLST form. Discussed with case management who has reached out to [facility]. History of Present Illness Reason for Consultation: goals of care Requesting Physician: PINEDA Teran Attending Physician: Barrie Palma MD History of Present Illness 82 yo lady with history of dementia who resides at [facility]. She had right femoral neck fracture in December of this year, with hemiarthroplasty. She unfortunately had a fall about six weeks later with a left intertrochanteric fracture of her left proximal femur witth nail fixation. During that admission, she was noted to have stercoral colitis with rectal bleeding. She had apparently been at [facility] on hospice since discharge but presented on 03/15 with abdominal pain and altered mental stauts. CT on this admission suggests rectosigmoid fecal impaction as well as complex fistula between bladder, vagina and rectum. She has had multiple liquid stools since admission per RN . Her urine culture is positive for Klebsiella. She is awake and answers some yes or no questions. She denies pain and tolerates routine care per RN. Allergies Allergy/AdvReac Type Severity Reaction Status Date / Time ezetimibe [From Zetia] Allergy Unknown ON Verified 02/02/22 15:41 [facility] Sulfa (Sulfonamide Allergy Unknown ON Verified 02/02/22 15:41 Antibiotics) [facility] sulfamethoxazole Allergy Unknown ON Verified 02/02/22 15:41 [From Bactrim] [facility] tramadol Allergy Unknown ON [facility]/02[facility]22 15[facility] trimethoprim [From Bactrim] Allergy Unknown ON Verified 02/02/22 15:41 [facility] Home Medications Medication Instructions Recorded Confirmed Type loratadine 10 mg tablet (Claritin) 10 mg PO QAM 12/25/21 03/15/23 History acetaminophen 500 mg tablet 1,000 mg PO Q8 #30 tabs 01/02/22 03/15/23 Rx (Tylenol Extra Strength) docusate sodium 100 mg capsule 100 mg PO BID 01/31/22 03/15/23 History famotidine 20 mg tablet 20 mg PO BID #14 tabs 02/15/22 03/15/23 Rx pantoprazole 40 mg tablet,delayed 40 mg PO BID #60 tabs 02/15/22 03/15/23 Rx release polyethylene glycol 3350 17 gram 17 g PO BID #14 ea 02/15/22 03/15/23 Rx oral powder packet (Miralax) diazepam 5 mg tablet 5 mg PO Q6H PRN Seizure Activity 03/15/23 03/15/23 History mirtazapine 15 mg tablet 15 mg PO HS 03/15/23 03/15/23 History sertraline 25 mg tablet 25 mg PO DAILY 03/15/23 03/15/23 History Patient History Medical History Spencer's palsy Closed right hip fracture Dementia DVT prophylaxis Fall History of breast cancer HTN (hypertension) Hyperparathyroidism Lumbar spinal stenosis Osteoporosis Pre-diabetes S/p left hip fracture SIADH (syndrome of inappropriate ADH production) Surgical History History of partial mastectomy hx of dcis Status post hip hemiarthroplasty Right Family History Mother Alzheimer disease Father Heart disease Social History Smoking Status: Unknown if ever smoked Preferred Language: German Communication Ability: Effective Well Puller Required: No Beliefs That Will Affect Care: None marital status: Current Living Situation: Personal Care Facility How many Children do You have: 2 Assistive Devices: Walker and Wheelchair Review of Systems Review of Systems: Unobtainable due to cognitive status Physical Exam Constitutional: + frail appearing; no acute distress Respiratory: normal respiratory effort; no labored breathing Cardiovascular: Rate/Rhythm: regular rate and regular rhythm Gastrointestinal (Abdomen): tender to palpation normal BS Musculoskeletal: Extremities: + muscle atrophy Skin: warm and dry Neurologic: Speech / Cognition: + abnormal cognition Results & Data Vital Signs (Past 12 Hours) Vital Signs Temp Pulse Resp BP Pulse Ox O2 Del Method 03/18/23 08:22 Room Air 03/18/23 07:42 97.5 F L 94 H 16 149/93 H 93 Room Air 03/18/23 00:20 98 H 18 116/78 95 Room Air PG Care Time/CCT Total # of Minutes Spent Total Time Spent with Patient: Total time spent is greater than 50% in coordination of care (as documented) at patient's floor/unit and/or counseling patient: Coding Level of Care Code 01972 INT INP/OBS CARE 2/55MIN Diagnoses Palliative care encounter Z51.5
--- NOTE | 2023-03-18 13:48 | Hospitalist Progress Note ---
Date of Service March 18, 2023 Assessment & Plan (1) Rectovaginal fistula: (2) Colovesical fistula: (3) Proctitis: (4) AMS (altered mental status): (5) Dementia: Plan: -Patient was on hospice care at rehab for severe dementia and was brought here for increased abdominal pain, hip pain and lethargy - CT of the abdomen pelvis reviewed personally: IMPRESSION: 1. There is rectosigmoid fecal impaction. The rectum measures up to 10 cm in diameter with evidence of severe stercoral proctitis. 2. There is evidence of cystitis. Correlate with clinical findings and urinalysis. 3. The endometrial cavity is distended and filled with gas and debris. There is associated mucosal hyperemia and inflammation around the uterus. This likely represents infection/endometritis. There may be formed stool within the uterus and vagina. 4. 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 This is best appreciated on the sagittal reformatted images. Clinical correlation will be essential. 5. Moderate to large hiatal hernia. 6. Left-sided nephrolithiasis. Continue on bowel regimen. Patient is having loose bowel movements. Was initially started on Zosyn for both proctitis and cystitis. Urine culture growing gram-negative bacilli; Klebsiella. Antibiotics changed to ceftriaxone and Flagyl. Will provide 7-day course. - Pain control, antiemetics prn, and tylenol for fever Reviewed home meds; Eliquis listed as home meds. Unable to confirm as per [facility] EMR records. Will remove it from home medications. - will ask for palliative care consultation to assist with hospice transition to another agency, - Wound care consult for ulceration on sacrum per family - will ask for frequent turn and repo -Anticipate comfort measures only and go home on hospice, await social work/palliative care consultation to facilitate goals of care Chronic conditions; Mood disordercontinue on mirtazapine and sertraline Constipationcontinue on MiraLAX, Dulcolax, DVT ppx: -Lovenox CODE: DNR/DNI Dispo: From [facility] Please note the above document was generated using voice recognition software. It may contain grammatical, syntax or spelling errors. Any formal questions or concerns about the content, text or information contained within the body of this dictation should be directly addressed to the provider for clarification Admission and Anticipated Discharge Date Admission Date: March 15, 2023 Subjective Patient seen and examined at bedside. She is lying in the bed comfortably. Reports pain on left lower quadrant of the abdomen. She is having regular bowel movements. Malhotra in place with clear urine. Review of Systems 2 Review of Systems: All systems reviewed & are unremarkable except as noted in Subjective Physical Exam Physical Exam: General: Awake, oriented to self. 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 Extremities: Normal inspection, no peripheral edema or erythema, calfs nontender to palpation Psych: Normal mood and affect Neuro: Awake, oriented to self. Results & Data Results & Data Vital Signs (Past 12 Hours) Vital Signs Temp Pulse Resp BP Pulse Ox O2 Del Method 03/18/23 08:22 Room Air 03/18/23 07:42 36.4 C L 94 H 16 149/93 H 93 Room Air Laboratory Results Laboratory Results WBC 10.84 K/ul (4.8-10.8) H 03/18/23 07:26 RBC 4.58 M/uL (4.20-5.40) 03/18/23 07:26 Hgb 12.1 g/dl (12.0-16.0) 03/18/23 07:26 Hct 37.6 % (37.0-47.0) 03/18/23 07:26 MCV 82.1 fL (80.0-100.0) 03/18/23 07:26 MCH 26.4 pg (25.0-34.0) 03/18/23 07:26 MCHC 32.2 g/dL (32.0-36.0) 03/18/23 07:26 RDW Std Deviation 42.5 fL (36.4-46.3) 03/18/23 07:26 RDW Coeff of Tyesha 14.2 % (11.5-14.5) 03/18/23 07:26 Plt Count 398 K/uL (130-400) 03/18/23 07:26 MPV 9.2 fL (9.4-12.4) L 03/18/23 07:26 Immature Gran % (Auto) 0.6 % 03/18/23 07: Neut % (Auto) 71.2 % 03/18/23 07: Lymph % (Auto) 16.1 % 03/18/23 07: [place] % (Auto) 10.4 % 03/18/23 07: Eos % (Auto) 1.3 % 03/18/23 07:26 Baso % (Auto) 0.4 % 03/18/23 07: Neut # (Auto) 7.72 K/uL (1.40-6.50) H 03/18/23 07: Lymph # (Auto) 1.75 K/uL (1.2-3.4) 03/18/23 07:26 [place] # (Auto) 1.13 K/uL (0.11-0.59) H 03/18/23 07: Eos # (Auto) 0.14 K/uL (0-0.50) 03/18/23 07: Baso # (Auto) 0.04 K/uL (0-0.2) 03/18/23 07: Immature Gran # (Auto) 0.06 K/uL (0.01-0.20) 03/18/23 07: PT 12.3 Seconds (9.0-12.0) H 03/15/23 14:02 INR 1.1 (0.9-1.1) 03/15/23 14:02 ABG pH 7.33 (7.35-7.45) L 03/16/23 03:23 ABG pCO2 41 mmHg (35-46) 03/16/23 03:23 ABG pO2 126 mmHg (80-95) H 03/16/23 03:23 ABG HCO3 22 mmol/L (19-24) 03/16/23 03:23 ABG O2 Saturation 98.1 % (90-95) H 03/16/23 03:23 ABG Base Excess -4.1 mEq/L (-9-1.8) 03/16/23 03:23 [place] Test Pos (Pos) 03/16/23 03:23 Oxygen Given FLOW RATE 2 03/16/23 03:23 Sodium 139 mmol/L (136-145) 03/18/23 07:26 Potassium 3.0 mmol/L (3.5-5.1) L 03/18/23 07:26 Chloride 107 mmol/L (98-107) 03/18/23 07:26 Carbon Dioxide 25 mmol/L (21-32) 03/18/23 07:26 Anion Gap 7 (3-11) 03/18/23 07:26 BUN 9 mg/dl (6-23) 03/18/23 07:26 Creatinine 0.59 mg/dl (0.6-1.2) L 03/18/23 07:26 Est Cr Clr Drug Dosing 56.1 ml/min 03/18/23 07:26 Est GFR ( Amer) 97.5 ml/min 03/18/23 07:26 Est GFR (Non-Af Amer) 84.2 ml/min 03/18/23 07:26 BUN/Creatinine Ratio 15.3 (10-20) 03/18/23 07:26 Glucose 101 mg/dl (70-99(Fasting)) H 03/18/23 07:26 Calcium 9.5 mg/dl (8.6-10.3) 03/18/23 07:26 Phosphorus 3.4 mg/dl (2.5-4.9) 03/15/23 14:02 Magnesium 2.0 mg/dl (1.7-2.4) 03/15/23 14:02 Total Bilirubin 0.4 mg/dl (0.2-1.0) 03/15/23 14:02 AST 7 U/L (13-39) L 03/15/23 14:02 ALT < 3 U/L (7-52) L 03/15/23 14:02 Alkaline Phosphatase 116 U/L (34-104) H 03/15/23 14:02 Total Creatine Kinase 16 U/L (26-192) L 03/15/23 14:02 Total Protein 7.0 gm/dl (6.0-8.3) 03/15/23 14:02 Albumin 3.3 gm/dl (3.4-5.0) L 03/15/23 14:02 Globulin 3.7 gm/dl (2.5-4.0) 03/15/23 14:02 Albumin/Globulin Ratio 0.9 (0.9-2) 03/15/23 14:02 Procalcitonin 0.06 ng/ml (0-0.5) 03/15/23 14:02 TSH 2.821 uIu/ml (0.300-4.500) 03/15/23 14:02 Urine Color Yellow 03/15/23 19:38 Urine Appearance Turbid (Clear) A 03/15/23 19:38 Urine pH 6.0 (4.5-7.5) 03/15/23 19:38 Ur Specific [place] > 1.045 (1.000-1.030) H 03/15/23 19:38 Urine Protein 3+ (Negative) H 03/15/23 19:38 Urine Glucose (UA) Negative (Negative) 03/15/23 19:38 Urine Ketones 1+ (Negative) H 03/15/23 19:38 Urine Blood 2+ (Negative) H 03/15/23 19:38 Urine Nitrite Negative (Negative) 03/15/23 19:38 Urine Bilirubin Negative (Negative) 03/15/23 19:38 Urine Urobilinogen Negative (Negative) 03/15/23 19:38 Ur Leukocyte Esterase 2+ (Negative) H 03/15/23 19:38 Urine WBC (Auto) >30 /hpf (0-5) H 03/15/23 19:38 Urine RBC (Auto) 10-30 /hpf (0-4) H 03/15/23 19:38 U Hyaline Cast (Auto) 0 /lpf (0-5) 03/15/23 19:38 U Epithel Cells (Auto) >30 /lpf (0-5) H 03/15/23 19:38 Urine Bacteria (Auto) 2+ (Negative) H 03/15/23 19:38 Urine Yeast Not Reportable 03/15/23 19:38 SARS-CoV-2, RNA, NAAT NEGATIVE (NEGATIVE) 03/15/23 14:10 Impressions Abdomen/Pelvis CT 03/15/23 14:02 CT SCAN OF THE ABDOMEN AND PELVIS WITH IV CONTRAST CLINICAL HISTORY: Generalized abdominal pain. Right hip pain. COMPARISON STUDY: Abdominal CT dated 02/10/2022. Pelvic radiograph dictated 03/20/2022. TECHNIQUE: Following the IV administration of 80 cc of Optiray 320, CT scan of the abdomen and pelvis is performed from the lung bases to the proximal femora. Images are reviewed in the axial, sagittal, and coronal planes. IV contrast was administered without complication. A dose lowering technique was utilized adhering to the principles of ALARA. The skeletal structures are osteopenic. The examination is degraded by motion artifact, as well as by streak artifact from the arms which could not be elevated above the abdomen. There is also streak artifact from orthopedic hardware in the hips. FINDINGS: Lung bases: The heart is top normal in size and without pericardial effusion. The coronary arteries are densely calcified. There is elevation of the right hemidiaphragm with bibasilar scarring/atelectasis. No airspace consolidation typical for pneumonia or pleural effusion is identified. Surgical clips are noted in the left breast. There is a moderate to large hiatal hernia. Liver: The contrast-enhanced liver is normal in size, contour, and attenuation. Fatty infiltration is seen adjacent to the falciform ligament. There is moderate intrahepatic biliary ductal dilatation. The hepatic veins and portal veins are patent. Gallbladder: Surgically absent noting clips in the gallbladder fossa. Spleen: Normal in size and attenuation. Pancreas: Moderately atrophic and grossly unremarkable. Adrenal glands: Unremarkable. Kidneys: The contrast enhanced kidneys demonstrate cortical atrophy and are without hydronephrosis. The kidneys enhance symmetrically. Scattered renal cysts measure up to 1.5 cm. Additional subcentimeter cortical hypodensities also likely represent cysts but are too small for definitive characterization. Renal sinus cysts are noted on the left. There is a 3 mm nonobstructing left renal calculus. Abdominal vasculature: There is advanced atherosclerotic calcification and ectasia of the abdominal aorta. Bowel: There is rectosigmoid fecal impaction. The rectum measures up to 10 cm in diameter. The rectal wall is thickened and hyperemic with surrounding inflammation and the appearance is consistent with a stercoral proctitis. No b owel obstruction is seen. There is [id number] constipation throughout the remainder of the colon. The appendix is normal as visualized. Peritoneum: There is no intraperitoneal free air or abdominal ascites. Lymphadenopathy: None. Pelvic viscera: Evaluation of the pelvis is significantly degraded by streak artifact from metallic hardware present in both hips. The bladder wall is markedly thickened with mucosal hyperenhancement and surrounding inflammation. There is a small focus of intraluminal gas. The endometrial cavity is markedly distended and filled with both gas and debris. There is surrounding hyperemia, and inflammation is present around the uterus. Question a complex fistula between the anterior rectum, the uterus/vagina, and the bladder. This is best seen on the sagittal reformatted images. Skeletal structures: The skeletal structures are osteopenic. No lytic or blastic lesions are seen. There is advanced lumbosacral spondylosis. There is posttraumatic deformity left proximal femur with intertrochanteric and intramedullary nails in place. A right hip arthroplasty is in place. There is a severe chronic compression deformity of T12 with retropulsed fragments. This is similar to the 02/10/2022 examination. IMPRESSION: 1. There is rectosigmoid fecal impaction. The rectum measures up to 10 cm in diameter with evidence of severe stercoral proctitis. 2. There is evidence of cystitis. Correlate with clinical findings and urinalysis. 3. The endometrial cavity is distended and filled with gas and debris. There is associated mucosal hyperemia and inflammation around the uterus. This likely represents infection/endometritis. There may be formed stool within the uterus and vagina. 4. 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 This is best appreciated on the sagittal reformatted images. Clinical correlation will be essential. 5. Moderate to large hiatal hernia. 6. Left-sided nephrolithiasis. 7. Additional findings as above. ACT 112: Negative or not required by law. Electronically signed by: Abdoulaye Brumfield M.D. 03/15/2023 4:57 PM Chest X-Ray 03/15/23 14:02 XR chest 1V portable CLINICAL HISTORY: weakness TECHNIQUE: Single frontal radiograph of the chest was obtained. Comparison: Comparison is made to chest radiograph 02/04/2022 FINDINGS: No lines and tubes are seen. Calcified aortic knob is seen. Interstitial thickening is seen in the lungs. Elevation of the right hemidiaphragm is seen. No evidence of pleural effusion or pneumothorax. IMPRESSION: No acute chest disease. ACT 112: Negative or not required by law. Electronically signed by: Hans Benitez M.D. 03/15/2023 2:55 PM Femur X-Ray 03/15/23 14:02 XR femur RT 2V routine HISTORY: 82 years-old Female pain acute pain in the right lower extremity COMPARISON: 03/20/2022 TECHNIQUE: 2 views of the right femur FINDINGS: Normal appearance the bones. Partially imaged or of hardware of the left femur. There is at least mild osteoarthritis of the right knee. Right knee total joint arthroplasty. 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 Extensive fecal retention of the rectum. IMPRESSION: No acute fracture or dislocation identified. ACT 112: Negative or not required by law. The above report was generated using voice recognition software. It may contain grammatical, syntax or spelling errors. Electronically signed by: Prashanth Morales M.D. 03/15/2023 2:[address] 03/15/23 14:02 CT head/brain wo con CLINICAL HISTORY: ams Technique: Contiguous axial CT images of the head were acquired from the base of the skull to the vertex without intravenous contrast administration. Images were viewed in brain, subdural and bone windows. Automated dose lowering techniques and/or adjustment according to patient size were utilized for this exam. Comparison: None available at the time of this dictation. Findings: Areas of decreased attenuation are present in the periventricular and subcortical white matter bilaterally consistent with small vessel ischemic disease. Generalized cerebral atrophy with commensurate enlargement of the ventricles, sulci, and cisterns is also present. There is no acute intracranial hemorrhage or evidence of acute territorial infarction. No shift of the midline structures, mass effect, or extra-axial abnormalities are shown. Atherosclerotic calcifications are present in the intracranial segments of the internal carotid arteries. Imaged portions of the paranasal sinuses and mastoid air cells are clear. The orbits appear normal. There are no acute fractures of the calvaria or scalp swelling. Impression: No acute intracranial hemorrhage, no evidence of acute territorial infarction or other acute intracranial disease process. ACT 112: Negative or not required by law. Electronically signed by: Hans Benitez M.D. 03/15/2023 4:35 PM Tibia/Fibula X-Ray 03/15/23 14:02 RIGHT TIBIA AND FIBULA 2 VIEWS CLINICAL HISTORY: Right leg pain and bruising. FINDINGS: AP and crosstable lateral views of the right tibia and fibula are obtained. No prior studies are available for comparison at the time of dictation. The skeletal structures are osteopenic. There is no radiographic evidence of right tibial or fibular fracture. The knee and ankle joints are grossly maintained noting degenerative change. There is chondrocalcinosis in the knee. The overlying soft tissues are normal as imaged noting generalized atrophy. IMPRESSION: No acute bony abnormality is identified. Electronically signed by: Abdoulaye Brumfield M.D. 03/15/2023 2:55 PM
[2023-03-18] MEDS: cefTRIAXone SODIUM 2,000 MG in DEXTROSE 5% 50 ML IV SCH (16:07)
[2023-03-18] MEDS: MIRTAZAPINE TAB 15 MG TAB PO SCH (20:44)
[2023-03-19] MEDS ORDERED: cloNIDine HCL 0.1 MG TAB PO ONE (00:18)
[2023-03-19] MEDS: metroNIDAZOLE 500 MG/100 ML BAG IV SCH (05:02)
[2023-03-19 07:26] LABS: Basophils # (auto) 0.04 K/uL (0-0.2); Basophils % (auto) 0.3 %; Eosinophils # (auto) 0.06 K/uL (0-0.50); Eosinophils % (auto) 0.4 %; Hematocrit (blood only) 35.2 % (37.0-47.0); Hemoglobin 11.4 g/dl (12.0-16.0); Immature Granulocytes % (auto) 0.7 %; Lymphocytes # (auto) 1.95 K/uL (1.2-3.4); Lymphocytes % (auto) 13.6 %; Mean Corpuscular Hemoglobin 26.5 pg (25.0-34.0); Mean Corpuscular Hgb Conc 32.4 g/dL (32.0-36.0); Mean Corpuscular Volume 81.7 fL (80.0-100.0); Monocytes # (auto) 1.34 K/uL (0.11-0.59); Monocytes % (auto) 9.3 %; Neutrophils # (auto) 10.86 K/uL (1.40-6.50); Neutrophils % (auto) 75.7 %; Platelet Count 392 K/uL (130-400); RDW Coefficient of Variation 14.4 % (11.5-14.5); RDW Standard Deviation 42.6 fL (36.4-46.3); Red Blood Count 4.31 M/uL (4.20-5.40); White Blood Count 14.35 K/ul (4.8-10.8)
[2023-03-19 07:47] LABS: Albumin Globulin Ratio 0.9 (0.9-2); Albumin Level 2.8 gm/dl (3.4-5.0); BUN Creatinine Ratio 21.4 (10-20); Bilirubin,Total 0.3 mg/dl (0.2-1.0); Calcium 9.6 mg/dl (8.6-10.3); Creatinine Clr Calc Pharmacy 47.3 ml/min; Est GFR (African American) 92.2 ml/min; Est GFR (Non-African American) 79.6 ml/min; Globulin 3.2 gm/dl (2.5-4.0); Potassium 3.4 mmol/L (3.5-5.1)
[2023-03-19] MEDS: POLYETHYLENE (MIRALAX) 17 GM PACK PO SCH ×2 (08:29→20:00)
[2023-03-19] MEDS: DOCUSATE SODIUM 100 MG CAP PO SCH ×2 (08:29→20:00)
[2023-03-19] MEDS: FAMOTIDINE 20 MG TAB PO SCH ×2 (08:29→19:59)
[2023-03-19] MEDS: LORATADINE 10 MG TAB PO SCH (08:29)
[2023-03-19] MEDS: PANTOprazole 40 MG TAB PO SCH ×2 (08:29→20:00)
[2023-03-19] MEDS: ENOXAPARIN INJ 30 MG/0.3 ML SYR SQ SCH (08:29)
[2023-03-19] MEDS: SERTRALINE HCL 50 MG TABLET PO SCH (08:29)
[2023-03-19] MEDS: bisacodyL 5 MG TABEC PO SCH (08:34)
[2023-03-19] MEDS ORDERED: ACETAMINOPHEN 1,000 MG/100 ML VIAL IV PRN (09:17)
[2023-03-19] MEDS ORDERED: HYDROmorphone INJ 0.5 MG/0.5 ML SYR IV PRN ×2 (09:18→09:29)
[2023-03-19] MEDS: POTASSIUM CHLORIDE / WTR 10 MEQ/100 ML PLCT IV SCH ×2 (09:36→11:08)
[2023-03-19] MEDS ORDERED: PIPERACILLIN/TAZOBACTAM 4.5 GM (over 30 mins) IV ONE (11:15)
[2023-03-19] MEDS ORDERED: MoRPHine SULFATE 10 MG/0.5 ML UDP PO PRN (12:47)
--- NOTE | 2023-03-19 12:47 | Palliative Care Progress Note ---
Date of Service March 19, 2023 Assessment & Plan (1) Abdominal pain: Plan: with fecal impaction rectovaginal/colovesical fistulae Improved with large bm She does have po laxatives but is having increased difficulty tolerating po Discussed medication adjustments with her daughter. With goal of SNF and focus on comfort, will order roxanol for pain as well. She will not have IV opioids at SNF. (2) Palliative care encounter: Plan: Daughter, Jo-Ann, feels that Mrs. Haq does not have good quality of life and feels that she would want comfort focused care. She had questions about antibiotics and IV hydration. We discussed concern that with fistula, UTIs are likely to be recurrent problem and options for treatment at SNF would be limited if Mrs. Haq is not tolerating po intake. We also discussed concern for volume overload and harm with artificial fluids. Analy has been clear in her advance directive that she would not want artificial nutrition or hydration. Jo-Ann has discussed goals of care with her brother but would like to discuss further with this information. We did review POLST form will complete when they have had an opportunity to talk. For now, Jo-Ann, would want IV antibiotics to continue. POLST form completed for DNR/DNI, comfort measures, trial of antibiotics and fluids Admission and Anticipated Discharge Date Admission Date: March 15, 2023 Subjective Increased abdominal pain today followed by large loose BM. She is resting comfortably after IV tylenol. Difficulty with po meds. Poor po intake. UOP 225cc last 24 hours Review of Systems Review of Systems: Unobtainable due to cognitive status Physical Exam Constitutional: + frail appearing Respiratory: normal respiratory effort; no labored breathing Cardiovascular: Extremities: no edema Gastrointestinal (Abdomen): decreased distension Musculoskeletal: Extremities: + muscle atrophy Neurologic: Speech / Cognition: + abnormal cognition Results & Data Vital Signs (Past 12 Hours) Vital Signs Temp Pulse Resp BP Pulse Ox O2 Del Method 03/19/23 08:22 Room Air 03/19/23 07:06 97.9 F 92 H 16 125/77 94 Room Air PG Care Time/CCT Total # of Minutes Spent Total Time Spent: 65 Total Time Spent with Patient: Total time spent is greater than 50% in coordination of care (as documented) at patient's floor/unit and/or counseling patient: symptom management, goals of care, POLST, family education and support Coding Level of Care Code 20736 SUB INP/OBS CARE 3/50MIN Diagnoses Abdominal pain R10.9 Palliative care encounter Z51.5
--- NOTE | 2023-03-19 15:22 | Hospitalist Progress Note ---
Date of Service March 19, 2023 Assessment & Plan (1) Rectovaginal fistula: (2) Colovesical fistula: (3) Proctitis: (4) AMS (altered mental status): (5) Dementia: Plan: -Patient was on hospice care at rehab for severe dementia and was brought here for increased abdominal pain, hip pain and lethargy - CT of the abdomen pelvis reviewed personally: IMPRESSION: 1. There is rectosigmoid fecal impaction. The rectum measures up to 10 cm in diameter with evidence of severe stercoral proctitis. 2. There is evidence of cystitis. Correlate with clinical findings and urinalysis. 3. The endometrial cavity is distended and filled with gas and debris. There is associated mucosal hyperemia and inflammation around the uterus. This likely represents infection/endometritis. There may be formed stool within the uterus and vagina. 4. 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 This is best appreciated on the sagittal reformatted images. Clinical correlation will be essential. 5. Moderate to large hiatal hernia. 6. Left-sided nephrolithiasis. Continue on bowel regimen. Patient is having loose bowel movements. Was initially started on Zosyn for both proctitis and cystitis. Urine culture growing gram-negative bacilli; Klebsiella. Antibiotics changed to ceftriaxone and Flagyl. Pt now transitioned back to Zosyn per Dr. Palma - Pain control, antiemetics prn, and tylenol for fever Reviewed home meds; Eliquis listed as home meds. Unable to confirm as per [facility] EMR records. Will remove it from home medications. - will ask for palliative care consultation to assist with hospice transition to another agency - Plan is to now rescind hospice and likely go to SNF - Wound care consult for ulceration on sacrum per family - will ask for frequent turn and repo - Pt not tolerating oral meds as much, will downgrade diet, palliative ordered Roxanol -Anticipate comfort measures only, await social work/palliative care consultation to facilitate goals of care Hypokalemia replete Chronic conditions; Mood disordercontinue on mirtazapine and sertraline Constipationcontinue on MiraLAX, Dulcolax, DVT ppx: -Lovenox CODE: DNR/DNI Dispo: From [facility] A total of 45 was spent coordinating, documenting, and providing care for this patient excluding time spent in the performance of separately billed services. This included personally viewing all current laboratories and imaging studies, medication reconciliation, outpatient chart review, and discussion with specialists. Admission and Anticipated Discharge Date Admission Date: March 15, 2023 Supervising Physician Co-Signing Physician Notes Patient seen and examined at bedside. She appears to have slightly increased abdominal pain and appears to be in distress Courtney in place with slightly dark brown output with decrease Antibiotics changed back to Zosyn Palliative has ongoing discussion with family. POLST form updated; to focus on comfort care, okay for IV fluids and antibiotic. Subjective Pt seen in room 361-1. Follow up UTI, Colovesicular fistula, fecal impaction. Pt with increased abdominal pain today per nurse. ROS unobtainable due to dementia. Courtney with dark urine. Pt later did have large BM which helped abd pain. Review of Systems Review of Systems: Unobtainable due to cognitive status Physical Exam Physical Exam: Gen: WD/WN, NAD, Not alert or oriented, stating, "take me home" HEENT: Normocephalic, atraumatic, conjunctivae moist but eyes crusted, sclerae anicteric, mucous membranes dry. Lung: Clear to Auscultation bilaterally, no wheezes/rales/rhonchi Heart: Regular rate, regular rhythm, no murmurs, rubs, or gallops Abdomen: Soft, tender to palpate throughout, ND +hypoactive BS Extremities: No edema Skin: Warm, no rash, dry turgor. : courtney with radha urine Results & Data Results & Data Vital Signs (Past 12 Hours) Vital Signs Temp Pulse Resp BP Pulse Ox O2 Del Method 03/19/23 08:22 Room Air 03/19/23 07:06 36.6 C 92 H 16 125/77 94 Room Air
[2023-03-19] MEDS: PIPERACILLIN/TAZOBACTAM 4.5 GM in DEXTROSE 5% 100 ML IV SCH (18:22)
[2023-03-19] MEDS: MIRTAZAPINE TAB 15 MG TAB PO SCH (19:59)
[2023-03-20] MEDS: PIPERACILLIN/TAZOBACTAM 4.5 GM in DEXTROSE 5% 100 ML IV SCH ×3 (01:52→16:40)
[2023-03-20] MEDS: PANTOprazole 40 MG TAB PO SCH ×2 (08:35→20:07)
[2023-03-20] MEDS: POLYETHYLENE (MIRALAX) 17 GM PACK PO SCH ×2 (08:35→20:06)
[2023-03-20] MEDS: LORATADINE 10 MG TAB PO SCH (08:35)
[2023-03-20] MEDS: DOCUSATE SODIUM 100 MG CAP PO SCH ×2 (08:35→20:06)
[2023-03-20] MEDS: FAMOTIDINE 20 MG TAB PO SCH ×2 (08:35→20:06)
[2023-03-20] MEDS: ENOXAPARIN INJ 30 MG/0.3 ML SYR SQ SCH (08:36)
[2023-03-20] MEDS: SERTRALINE HCL 50 MG TABLET PO SCH (08:36)
[2023-03-20] MEDS: bisacodyL 5 MG TABEC PO SCH (08:43)
--- NOTE | 2023-03-20 14:38 | Hospitalist Progress Note ---
Date of Service March 20, 2023 Assessment & Plan (1) Rectovaginal fistula: (2) Colovesical fistula: (3) Proctitis: (4) AMS (altered mental status): (5) Dementia: Plan: -Patient was on hospice care at rehab for severe dementia and was brought here for increased abdominal pain, hip pain and lethargy - CT of the abdomen pelvis reviewed personally: IMPRESSION: 1. There is rectosigmoid fecal impaction. The rectum measures up to 10 cm in diameter with evidence of severe stercoral proctitis. 2. There is evidence of cystitis. Correlate with clinical findings and urinalysis. 3. The endometrial cavity is distended and filled with gas and debris. There is associated mucosal hyperemia and inflammation around the uterus. This likely represents infection/endometritis. There may be formed stool within the uterus and vagina. 4. 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 This is best appreciated on the sagittal reformatted images. Clinical correlation will be essential. 5. Moderate to large hiatal hernia. 6. Left-sided nephrolithiasis. Continue on bowel regimen. Patient is having loose bowel movements. Was initially started on Zosyn for both proctitis and cystitis. Urine culture growing gram-negative bacilli; Klebsiella. Antibiotics changed to ceftriaxone and Flagyl. Pt now transitioned back to Zosyn per Dr. Palma - Pain control, antiemetics prn, and tylenol for fever Reviewed home meds; Eliquis listed as home meds. Unable to confirm as per [facility] EMR records. Will remove it from home medications. - will ask for palliative care consultation to assist with hospice transition to another agency - Plan is to now rescind hospice and likely go to SNF - Wound care consult for ulceration on sacrum per family - will ask for frequent turn and repo - Pt not tolerating oral meds as much, will downgrade diet, palliative ordered Roxanol -Anticipate comfort measures only, await social work/palliative care consultation to facilitate goals of care Hypokalemia replete Chronic conditions; Mood disordercontinue on mirtazapine and sertraline Constipationcontinue on MiraLAX, Dulcolax, DVT ppx: -Lovenox CODE: DNR/DNI Dispo: From [facility], daughter wishes to discharge to [facility] under skilled services, hospice, patient improving and looked good today 03/20, if continues to do well tomorrow likely medically stable for discharge to [facility] A total of 45 was spent coordinating, documenting, and providing care for this patient excluding time spent in the performance of separately billed services. This included personally viewing all current laboratories and imaging studies, medication reconciliation, outpatient chart review, and discussion with specialists. Admission and Anticipated Discharge Date Admission Date: March 15, 2023 Supervising Physician Co-Signing Physician Notes Patient seen and examined at bedside. Patient appears to be comfortable. Abdominal tenderness is still present but improving. Urine appears to be clearing up Palliative has ongoing discussion with family. POLST form updated; to focus on comfort care, okay for IV fluids and antibiotic. Continue to monitor inpatient. Possible discharge in a.m. depending on clinical course. Subjective Pt seen in room 361-1. Follow up UTI, Colovesicular fistula, fecal impaction. ROS unreliable due to dementia. Denies pain. More alert today and verbal. Denies f/c/s, chest pain, sob, n/v/d, abd pain. Review of Systems Review of Systems: All systems reviewed & are unremarkable except as noted in HPI & below Physical Exam Physical Exam: Gen: WD/WN, NAD, alert and verbalizing but demented HEENT: Normocephalic, atraumatic, conjunctivae moist but eyes crusted, sclerae anicteric, mucous membranes dry. Lung: Clear to Auscultation bilaterally, no wheezes/rales/rhonchi Heart: Regular rate, regular rhythm, no murmurs, rubs, or gallops Abdomen: Soft, tender to palpate throughout, ND +hypoactive BS Extremities: No edema Skin: Warm, no rash, dry turgor. : courtney with yellow urine Results & Data Results & Data Vital Signs (Past 12 Hours) Vital Signs Temp Pulse Resp BP Pulse Ox O2 Del Method 03/20/23 07:19 36.3 C L 70 16 145/79 H 94 Room Air Medications Administered Current Inpatient Medications Alprazolam (Alprazolam 0.25 Mg Tablet) 0.25 mg PO Q12H PRN PRN Reason: anxiety Stop: 04/15/23 18:00 Last Admin: 03/17/23 10:41 Dose: 0.25 mg Bisacodyl (Bisacodyl 5 Mg Tabec) 5 mg PO DAILY [facility] Stop: 04/15/23 08:59 Last Admin: 03/20/23 08:43 Dose: 5 mg Docusate Sodium (Docusate Sodium 100 Mg Cap) 100 mg PO BID [facility] Stop: 04/15/23 10:14 Last Admin: 03/20/23 08:35 Dose: 100 mg Enoxaparin Sodium (Enoxaparin Inj 30 Mg/0.3 Ml Syr) 30 mg SQ QAM [facility] Stop: 04/16/23 08:59 Last Admin: 03/20/23 08:36 Dose: 30 mg Famotidine (Famotidine 20 Mg Tab) 20 mg PO BID [facility] Stop: 04/15/23 20:59 Last Admin: 03/20/23 08:35 Dose: 20 mg Hydromorphone HCl (Hydromorphone Inj 0.5 Mg/0.5 Ml Syr) 0.25 mg IV Q3H PRN PRN Reason: Pain Stop: 04/02/23 09:28 Promethazine HCl 6.25 mg/ (Sodium Chloride) 50.25 mls @ 201 mls/hr IV Q6H PRN PRN Reason: Nausea And Vomiting Stop: 04/14/23 20:35 Acetaminophen (Ofirmev) 1,000 mg in 100 mls @ 400 mls/hr IV Q8H PRN PRN Reason: mild pain 1-6 Stop: 03/22/23 09:16 Last Infusion: 03/19/23 10:26 Dose: Infused Piperacillin Sod/Tazobactam (Sod 4.5 gm/ Dextrose) 120 mls @ 30 mls/hr IV Q8H [facility]; Protocol Stop: 03/29/23 17:59 Last Infusion: 03/20/23 12:52 Dose: Infused Loratadine (Loratadine 10 Mg Tab) 10 mg PO QAM [facility] Stop: 04/16/23 08:59 Last Admin: 03/20/23 08:35 Dose: 10 mg Mirtazapine (Mirtazapine Tab 15 Mg Tab) 15 mg PO HS [facility] Stop: 04/15/23 20:59 Last Admin: 03/19/23 19:59 Dose: 15 mg Morphine Sulfate (Morphine Sulfate 10 Mg/0.5 Ml Udp) 5 mg PO Q4H PRN PRN Reason: Pain or dyspnea Stop: 04/02/23 12:46 Ondansetron HCl (Ondansetron Inj 2 Mg/Ml 2 Ml Vial) 4 mg IV Q4H PRN PRN Reason: Nausea And Vomiting Stop: 04/14/23 20:35 Pantoprazole Sodium (Pantoprazole 40 Mg Tab) 40 mg PO BID [facility] Stop: 04/15/23 20:59 Last Admin: 03/20/23 08:35 Dose: 40 mg Polyethylene Glycol (Polyethylene (Miralax) 17 Gm Pack) 17 gm PO BID [facility] Stop: 04/15/23 10:14 Last Admin: 03/20/23 08:35 Dose: 17 gm Sertraline HCl (Sertraline Hcl 50 Mg Tablet) 25 mg PO DAILY [facility] Stop: 04/16/23 08:59 Last Admin: 03/20/23 08:36 Dose: 25 mg
[2023-03-20] MEDS: MIRTAZAPINE TAB 15 MG TAB PO SCH (20:07)
[2023-03-20] MEDS: ALPRAZolam 0.25 MG TABLET PO PRN (20:12)
[2023-03-21] MEDS: PIPERACILLIN/TAZOBACTAM 4.5 GM in DEXTROSE 5% 100 ML IV SCH ×3 (01:42→16:31)
[2023-03-21] MEDS: FAMOTIDINE 20 MG TAB PO SCH ×2 (08:04→20:58)
[2023-03-21] MEDS: POLYETHYLENE (MIRALAX) 17 GM PACK PO SCH (08:04)
[2023-03-21] MEDS: PANTOprazole 40 MG TAB PO SCH ×2 (08:04→20:58)
[2023-03-21] MEDS: DOCUSATE SODIUM 100 MG CAP PO SCH ×2 (08:04→20:59)
[2023-03-21] MEDS: SERTRALINE HCL 50 MG TABLET PO SCH (08:05)
[2023-03-21] MEDS: LORATADINE 10 MG TAB PO SCH (08:05)
[2023-03-21] MEDS: ENOXAPARIN INJ 30 MG/0.3 ML SYR SQ SCH (08:05)
[2023-03-21] MEDS: bisacodyL 5 MG TABEC PO SCH (08:08)
[2023-03-21 09:19] LABS: Basophils # (auto) 0.04 K/uL (0-0.2); Basophils % (auto) 0.5 %; Eosinophils # (auto) 0.31 K/uL (0-0.50); Eosinophils % (auto) 3.7 %; Hematocrit (blood only) 36.7 % (37.0-47.0); Hemoglobin 11.7 g/dl (12.0-16.0); Immature Granulocytes # (auto) 0.12 K/uL (0.01-0.20); Immature Granulocytes % (auto) 1.4 %; Lymphocytes # (auto) 1.43 K/uL (1.2-3.4); Mean Corpuscular Hemoglobin 26.5 pg (25.0-34.0); Mean Corpuscular Hgb Conc 31.9 g/dL (32.0-36.0); Mean Corpuscular Volume 83.2 fL (80.0-100.0); Monocytes # (auto) 0.64 K/uL (0.11-0.59); Monocytes % (auto) 7.6 %; Neutrophils # (auto) 5.85 K/uL (1.40-6.50); Neutrophils % (auto) 69.8 %; Platelet Count 390 K/uL (130-400); RDW Coefficient of Variation 14.7 % (11.5-14.5); RDW Standard Deviation 44.6 fL (36.4-46.3); Red Blood Count 4.41 M/uL (4.20-5.40); White Blood Count 8.39 K/ul (4.8-10.8)
[2023-03-21 09:28] LABS: BUN Creatinine Ratio 22.7 (10-20); Calcium 9.4 mg/dl (8.6-10.3); Creatinine Clr Calc Pharmacy 50.2 ml/min; Est GFR (Non-African American) 81.1 ml/min
[2023-03-21] MEDS: POTASSIUM CHLORIDE / WTR 10 MEQ/100 ML PLCT IV SCH ×4 (10:23→13:42)
--- NOTE | 2023-03-21 17:03 | Hospitalist Progress Note ---
Date of Service March 21, 2023 Assessment & Plan (1) Rectovaginal fistula: (2) Colovesical fistula: (3) Proctitis: (4) AMS (altered mental status): (5) Dementia: Plan: -Patient was on hospice care at rehab for severe dementia and was brought here for increased abdominal pain, hip pain and lethargy - CT of the abdomen pelvis reviewed personally: IMPRESSION: 1. There is rectosigmoid fecal impaction. The rectum measures up to 10 cm in diameter with evidence of severe stercoral proctitis. 2. There is evidence of cystitis. Correlate with clinical findings and urinalysis. 3. The endometrial cavity is distended and filled with gas and debris. There is associated mucosal hyperemia and inflammation around the uterus. This likely represents infection/endometritis. There may be formed stool within the uterus and vagina. 4. 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 This is best appreciated on the sagittal reformatted images. Clinical correlation will be essential. 5. Moderate to large hiatal hernia. 6. Left-sided nephrolithiasis. Continue on bowel regimen. Patient is having loose bowel movements -> will decrease due to frequent loose stool Was initially started on Zosyn for both proctitis and cystitis. Urine culture growing gram-negative bacilli; Klebsiella. Antibiotics changed to ceftriaxone and Flagyl. Pt now transitioned back to Zosyn per Dr. Palma - Pain control, antiemetics prn, and tylenol for fever Reviewed home meds; Eliquis listed as home meds. Unable to confirm as per [facility] EMR records. Will remove it from home medications. - will ask for palliative care consultation to assist with hospice transition to another agency - Plan is to now rescind hospice and likely go to SNF - Wound care consult for ulceration on sacrum per family - will ask for frequent turn and reposition - Pt not tolerating oral meds as much, will downgrade diet, palliative ordered Roxanol - Appreciate palliative care involvement. Per Dr. Mccarthy, family would like to transition to SNF for the time being particularly for significant wound care needs. POLST completed with goals of care clarified. Hypokalemia replete, repeat labs tomorrow Chronic conditions; Mood disordercontinue on mirtazapine and sertraline DVT ppx: -Lovenox CODE: DNR/DNI Dispo: From [facility], daughter wishes to discharge to [facility] under skilled services, hospice, patient improving and looked good today 03/20, if continues to do well tomorrow likely medically stable for discharge to [facility] A total of 35 was spent coordinating, documenting, and providing care for this patient excluding time spent in the performance of separately billed services. This included personally viewing all current laboratories and imaging studies, m edication reconciliation, outpatient chart review, and discussion with specialists. Admission and Anticipated Discharge Date Admission Date: March 15, 2023 Supervising Physician Co-Signing Physician Notes delayed entry date of service noted above Attending Addendum: care coordinated with ASHLEE Sophia John please refer to her notes for full details, I agree with her notes patient seen and examined, records reviewed by myself as well Duane Shah MD Subjective Pt seen in room 361-1 for follow up UTI, Colovesicular fistula, fecal impaction. ROS unreliable due to dementia. Denies pain, pleasant. Denies f/c/s, chest pain, sob, n/v/d, abd pain. Review of Systems Review of Systems: Unobtainable due to cognitive status Physical Exam Physical Exam: Gen: WD/WN, NAD, sitting in bedside chair, pleasantly confused HEENT: Normocephalic, atraumatic, conjunctivae moist, sclerae anicteric, mucous membranes moist Lung: Clear to Auscultation bilaterally, no wheezes/rales/rhonchi Heart: Regular rate, regular rhythm, no murmurs, rubs, or gallops Abdomen: Soft, NT, ND +BS x 4 Extremities: no edema Skin: Warm, no rash : courtney with yellow urine Results & Data Results & Data Vital Signs (Past 12 Hours) Vital Signs Temp Pulse Pulse Resp BP BP Pulse Ox 03/21/23 15:37 36.5 C 83 14 179/101 H 96 03/21/23 07:39 36.3 C L 75 12 153/87 H 97 O2 Del Method 03/21/23 15:37 Room Air 03/21/23 07:39 Room Air Laboratory Results Short CBC 03/21/23 Range/Units 08:28 WBC 8.39 (4.8-10.8) K/ul Hgb 11.7 L (12.0-16.0) g/dl Hct 36.7 L (37.0-47.0) % Plt Count 390 (130-400) K/uL BMP 03/21/23 08:28 Sodium 137 Potassium 3.0 L Chloride 105 Carbon Dioxide 27 BUN 15 Creatinine 0.66 Glucose 94 Calcium 9.4 Diagnostic Findings Abdomen/Pelvis CT 03/15/23 14:02 CT SCAN OF THE ABDOMEN AND PELVIS WITH IV CONTRAST CLINICAL HISTORY: Generalized abdominal pain. Right hip pain. COMPARISON STUDY: Abdominal CT dated 02/10/2022. Pelvic radiograph dictated 03/20/2022. TECHNIQUE: Following the IV administration of 80 cc of Optiray 320, CT scan of the abdomen and pelvis is performed from the lung bases to the proximal femora. Images are reviewed in the axial, sagittal, and coronal planes. IV contrast was administered without complication. A dose lowering technique was utilized adhering to the principles of ALARA. The skeletal structures are osteopenic. The examination is degraded by motion artifact, as well as by streak artifact from the arms which could not be elevated above the abdomen. There is also streak artifact from orthopedic hardware in the hips. FINDINGS: Lung bases: The heart is top normal in size and without pericardial effusion. The coronary arteries are densely calcified. There is elevation of the right hemidiaphragm with bibasilar scarring/atelectasis. No airspace consolidation typical for pneumonia or pleural effusion is identified. Surgical clips are noted in the left breast. There is a moderate to large hiatal hernia. Liver: The contrast-enhanced liver is normal in size, contour, and attenuation. Fatty infiltration is seen adjacent to the falciform ligament. There is moderate intrahepatic biliary ductal dilatation. The hepatic veins and portal veins are patent. Gallbladder: Surgically absent noting clips in the gallbladder fossa. Spleen: Normal in size and attenuation. Pancreas: Moderately atrophic and grossly unremarkable. Adrenal glands: Unremarkable. Kidneys: The contrast enhanced kidneys demonstrate cortical atrophy and are without hydronephrosis. The kidneys enhance symmetrically. Scattered renal cysts measure up to 1.5 cm. Additional subcentimeter cortical hypodensities also likely represent cysts but are too small for definitive characterization. Renal sinus cysts are noted on the left. There is a 3 mm nonobstructing left renal calculus. Abdominal vasculature: There is advanced atherosclerotic calcification and ectasia of the abdominal aorta. Bowel: There is rectosigmoid fecal impaction. The rectum measures up to 10 cm in diameter. The rectal wall is thickened and hyperemic with surrounding inflammation and the appearance is consistent with a stercoral proctitis. No bowel obstruction is seen. There is gyzi-ix-knilwdif constipation throughout the remainder of the colon. The appendix is normal as visualized. Peritoneum: There is no intraperitoneal free air or abdominal ascites. Lymphadenopathy: None. Pelvic viscera: Evaluation of the pelvis is significantly degraded by streak artifact from metallic hardware present in both hips. The bladder wall is markedly thickened with mucosal hyperenhancement and surrounding inflammation. There is a small focus of intraluminal gas. The endometrial cavity is markedly distended and filled with both gas and debris. There is surrounding hyperemia, and inflammation is present around the uterus. Question a complex fistula between the anterior rectum, the uterus/vagina, and the bladder. This is best seen on the sagittal reformatted images. Skeletal structures: The skeletal structures are osteopenic. No lytic or blastic lesions are seen. There is advanced lumbosacral spondylosis. There is posttraumatic deformity left proximal femur with intertrochanteric and intramedullary nails in place. A right hip arthroplasty is in place. There is a severe chronic compression deformity of T12 with retropulsed fragments. This is similar to the 02/10/2022 examination. IMPRESSION: 1. There is rectosigmoid fecal impaction. The rectum measures up to 10 cm in diameter with evidence of severe stercoral proctitis. 2. There is evidence of cystitis. Correlate with clinical findings and urinalysis. 3. The endometrial cavity is distended and filled with gas and debris. There is associated mucosal hyperemia and inflammation around the uterus. This likely represents infection/endometritis. There may be formed stool within the uterus and vagina. 4. 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 This is best appreciated on the sagittal reformatted images. Clinical correlation will be essential. 5. Moderate to large hiatal hernia. 6. Left-sided nephrolithiasis. 7. Additional findings as above. ACT 112: Negative or not required by law. Electronically signed by: Abdoulaye Brumfield M.D. 03/15/2023 4:57 PM Chest X-Ray 03/15/23 14:02 XR chest 1V portable CLINICAL HISTORY: weakness TECHNIQUE: Single frontal radiograph of the chest was obtained. Comparison: Comparison is made to chest radiograph 02/04/2022 FINDINGS: No lines and tubes are seen. Calcified aortic knob is seen. Interstitial thickening is seen in the lungs. Elevation of the right hemidiaphragm is seen. No evidence of pleural effusion or pneumothorax. IMPRESSION: No acute chest disease. ACT 112: Negative or not required by law. Electronically signed by: Hans Benitez M.D. 03/15/2023 2:55 PM Femur X-Ray 03/15/23 14:02 XR femur RT 2V routine HISTORY: 82 years-old Female pain acute pain in the right lower extremity COMPARISON: 03/20/2022 TECHNIQUE: 2 views of the right femur FINDINGS: Normal appearance the bones. Partially imaged or of hardware of the left femur. There is at least mild osteoarthritis of the right knee. Right knee total joint arthroplasty. 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 Extensive fecal retention of the rectum. IMPRESSION: No acute fracture or dislocation identified. ACT 112: Negative or not required by law. The above report was generated using voice recognition software. It may contain grammatical, syntax or spelling errors. Electronically signed by: Prashanth Morales M.D. 03/15/2023 2:[address] 03/15/23 14:02 CT head/brain wo con CLINICAL HISTORY: ams Technique: Contiguous axial CT images of the head were acquired from the base of the skull to the vertex without intravenous contrast administration. Images were viewed in brain, subdural and bone windows. Automated dose lowering techniques and/or adjustment according to patient size were utilized for this exam. Comparison: None available at the time of this dictation. Findings: Areas of decreased attenuation are present in the periventricular and subcortical white matter bilaterally consistent with small vessel ischemic disease. Generalized cerebral atrophy with commensurate enlargement of the ventricles, sulci, and cisterns is also present. There is no acute intracranial hemorrhage or evidence of acute territorial infarction. No shift of the midline structures, mass effect, or extra-axial abnormalities are shown. Atherosclerotic calcifications are present in the intracranial segments of the internal carotid arteries. Imaged portions of the paranasal sinuses and mastoid air cells are clear. The orbits appear normal. There are no acute fractures of the calvaria or scalp swelling. Impression: No acute intracranial hemorrhage, no evidence of acute territorial infarction or other acute intracranial disease process. ACT 112: Negative or not required by law. Electronically signed by: Hans Benitez M.D. 03/15/2023 4:35 PM Tibia/Fibula X-Ray 03/15/23 14:02 RIGHT TIBIA AND FIBULA 2 VIEWS CLINICAL HISTORY: Right leg pain and bruising. FINDINGS: AP and crosstable lateral views of the right tibia and fibula are obtained. No prior studies are available for comparison at the time of dictation. The skeletal structures are osteopenic. There is no radiographic evidence of right tibial or fibular fracture. The knee and ankle joints are grossly maintained noting degenerative change. There is chondrocalcinosis in the knee. The overlying soft tissues are normal as imaged noting generalized atrophy. IMPRESSION: No acute bony abnormality is identified. Electronically signed by: Abdoulaye Brumfield M.D. 03/15/2023 2:55 PM
[2023-03-21] MEDS ORDERED: POLYETHYLENE (MIRALAX) 17 GM PACK PO PRN (17:10)
[2023-03-21] MEDS ORDERED: POTASSIUM CHLORIDE 20 MEQ/15 ML UDC PO STA (17:17)
[2023-03-21] MEDS: MIRTAZAPINE TAB 15 MG TAB PO SCH (21:17)
[2023-03-21] MEDS ORDERED: PNEUMOCOCCAL POLYSACCHARIDES 25 MCG/0.5 ML VIAL/SYR IM ONE (23:19)
[2023-03-22] MEDS: PIPERACILLIN/TAZOBACTAM 4.5 GM in DEXTROSE 5% 100 ML IV SCH ×2 (01:43→09:13)
[2023-03-22] MEDS: LORATADINE 10 MG TAB PO SCH (07:41)
[2023-03-22] MEDS: FAMOTIDINE 20 MG TAB PO SCH (07:41)
[2023-03-22] MEDS: SERTRALINE HCL 50 MG TABLET PO SCH (07:41)
[2023-03-22] MEDS: PANTOprazole 40 MG TAB PO SCH (07:41)
[2023-03-22] MEDS: DOCUSATE SODIUM 100 MG CAP PO SCH (07:42)
[2023-03-22] MEDS: ENOXAPARIN INJ 30 MG/0.3 ML SYR SQ SCH (07:42)
[2023-03-22 07:49] LABS: Hematocrit (blood only) 35.1 % (37.0-47.0); Mean Corpuscular Hemoglobin 26.3 pg (25.0-34.0); Mean Corpuscular Hgb Conc 31.3 g/dL (32.0-36.0); Mean Corpuscular Volume 83.8 fL (80.0-100.0); Mean Platelet Volume 8.8 fL (9.4-12.4); Platelet Count 350 K/uL (130-400); RDW Coefficient of Variation 14.7 % (11.5-14.5); RDW Standard Deviation 44.7 fL (36.4-46.3); Red Blood Count 4.19 M/uL (4.20-5.40)
[2023-03-22 07:57] LABS: Calcium 9.3 mg/dl (8.6-10.3); Creatinine Clr Calc Pharmacy 66.2 ml/min; Est GFR (Non-African American) 88.9 ml/min; Magnesium 1.7 mg/dl (1.7-2.4); Potassium 3.5 mmol/L (3.5-5.1)
--- NOTE | 2023-03-22 12:31 | Discharge Summary ---
Discharge Summary Date of Service March 22, 2023 Notes For Next Care Provider Admitted with fecal impaction, treated for proctitis and cystitis. 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 History is obtained by daughter and son who are present at bedside. Pt had previously been in a personal skilled nursing for the past 1-2 years. They noticed a decline over the past 1 week. Staff mentioned pt noted having increased pain in both her legs over the past 2 weeks. She has had poor po intake over the past week, increased lethargy. At baseline is wheelchair bound and has a sacral ulceration. She does talk, feeds herself, but requires assistance with transfers and getting dressed. Pt is currently a resident of [facility] in [place] and they are requesting some more care, possible transition with increased level of care with a different hospice agency. CT abdomen pelvis showing rectosigmoid fecal impaction, rectum measures up to 10 cm in diameter with evidence of severe to steroid coloproctitis. Cystitis, endometrial cavity is distended and filled with gas and debris, mucosal hyperemia and inflammation around the uterus, likely representing infection/endometritis, there may be formed stool within the uterus and vagina, complex fistula between bladder, uterus/vagina and rectum. Discussion was held with the patients daughter and son, Wiliam, regarding her possible interventions and degree of aggressiveness with her health care, with the prognosis likely being poor and that this is most likely from something cancerous causing the significant fistula. They do not want to persue surgical intervention, biopsy or want to prove a cancer is present at this time. Wiliam would like to keep their mother comfortable currently, with fluids, pain control, and if possible, reduce the fecal impaction which was also discussed. Admission Exam Per Admitting Provider General: asleep, no apparent distress, wakes to verbal stimuli Head: Normocephalic, atraumatic ENT: PERRL, EOMI, no pharyngeal exudate, mucous membranes very dry, + hx bells palsy with exudate sticking eyelids together Chest: Clear to auscultation, on 2L via NC, no adventitious breath sounds Cardiac: NSR, few extra beats, no murmur, no JVD, normal peripheral pulses, good capillary refill Abdominal: NABS x 4 quadrants, soft, nondistended, nontender to palpation, no rebound or guarding Extremities: Normal inspection, no peripheral edema or erythema, calfs nontender to palpation Psych: Normal mood and affect Neuro: asleep, mental status not evaluated for comfort, wakes to verbal stimuli, cannot answer where she is at Principal Dx & Hospital Course #1 = Principal Diagnosis (1) Rectovaginal fistula: (2) Colovesical fistula: (3) Proctitis: (4) AMS (altered mental status): (5) Dementia: Plan Patient presented from hospice care with history of severe dementia and was brought in for increased abdominal pain, hip pain and lethargy. CT of the abdomen pelvis reviewed and showed rectosigmoid fecal impaction as well as suspecting a complex fistula between the bladder, the uterus/vagina, and the rectum. Stated on a bowel regimen with resolution of constipation. Started on Zosyn for both proctitis and cystitis. Urine culture grew Klebsiella. Discharging on cefuroxime for total of 14 days for complex UTI. Courtney catheter in place. Discussed with urology service due to increased risk for recurrent infection given fistulas and they would like patient to follow-up in clinic once completed this antibiotic course. Discussed goals of care with palliative service during admission and patient/family electing to remain as SNF for now and readdress hospice transition at a later time. POLST form completed. Continue bowel regimen as listed to prevent recurrent constipation issues. Started on potassium supplementation due to hypokalemia 2/2 GI losses during admission. Recheck BMP in SNF setting within a week to determine continuation length of supplement. Plan discussed over the phone with daughter. Patient comfortable and hemodynamically stable at time of discharge to SNF. Discharge Exam Gen: WD/WN, NAD, sitting in bedside chair, pleasantly confused HEENT: Normocephalic, atraumatic, conjunctivae moist, sclerae anicteric, mucous membranes moist Lung: Clear to Auscultation bilaterally, no wheezes/rales/rhonchi Heart: Regular rate, regular rhythm, no murmurs, rubs, or gallops Abdomen: Soft, NT, ND +BS x 4 Extremities: no edema Skin: Warm, no rash : courtney with yellow urine Updated Medication List Medication Instructions Recorded Confirmed Type loratadine 10 mg tablet (Claritin) 10 mg PO QAM 12/25/21 03/15/23 History acetaminophen 500 mg tablet 1,000 mg PO Q8 #30 tabs 01/02/22 03/15/23 Rx (Tylenol Extra Strength) docusate sodium 100 mg capsule 100 mg PO BID 01/31/22 03/15/23 History famotidine 20 mg tablet 20 mg PO BID #14 tabs 02/15/22 03/15/23 Rx pantoprazole 40 mg tablet,delayed 40 mg PO BID #60 tabs 02/15/22 03/15/23 Rx release polyethylene glycol 3350 17 gram 17 g PO BID #14 ea 02/15/22 03/15/23 Rx oral powder packet (Miralax) diazepam 5 mg tablet 5 mg PO Q6H PRN Seizure Activity 03/15/23 03/15/23 History mirtazapine 15 mg tablet 15 mg PO HS 03/15/23 03/15/23 History sertraline 25 mg tablet 25 mg PO DAILY 03/15/23 03/15/23 History bisacodyl 5 mg tablet,delayed 5 mg PO DAILY PRN constipation #10 03/22/23 Rx release (Gentle Laxative tabs (bisacodyl)) cefuroxime axetil 500 mg tablet 500 mg PO BID 7 days #14 tabs 03/22/23 Rx docusate sodium 100 mg capsule 100 mg PO BID #30 caps 03/22/23 Rx lactobacillus combo no.11 15 1 cap PO DAILY #10 caps 03/22/23 Rx billion cell sprinkle capsule (Probiotic) potassium chloride 20 mEq/15 mL 10 meq (7.5 mL) PO DAILY #52.5 mL 03/22/23 Rx oral liquid Hospital Stay Data Consultations 03/15/23 17:07 ED Decision to Admit Stat 03/15/23 17:52 Consult Palliative Care Routine Diagnostic Imagining Performed 03/15/23 14:02 CT abd pelvis IV con only Stat CT head/brain wo con Stat Pending Results Patient Have Any Pending Studies at Discharge: No Discharge Instructions Given to Patient (Per Discharging Provider) MEDICATION CHANGES: Cefuroxime 500mg by mouth twice daily x 7 days forcomplicated UTI. Probiotic daily x 10 days for GI Health. Continue Colace 100mg BID for constipation, Miralax and Bisacodyl as needed. Potassium chloride 20meq liquid daily x 7 days PENDING TEST RESULTS: None RECOMMENDATIONS FOR FOLLOW-UP: Follow up with PCP as scheduled. Complete antibiotic in its entirety. Started on probiotic as well. Continue medication regimen as scheduled aside from changes noted above. Urology to call family for follow-up appointment due to increased risk for recurrent UTIs. Continue diligent wound care given fistulas. Continue bowel regimen and administer laxative if no BM within 1-2 days given history of impaction. Repeat BMP to check sodium level in 1 week to determine continuation of supplementation. OTHER INSTRUCTIONS: Seek medical attention if you have: * temperature above 101 * chest pain or trouble breathing * abdominal pain, nausea, vomiting * diarrhea, dark stools or bloody stools * any unanswered questions or concerns Call 911 if symptoms are severe. Please take good care of yourself. Call if you have any questions or problems. You can reach a [facility] hospitalist on duty at [facility] 24 hours a day by calling [phone]. Total Time Total Time Spent Total Time Spent (In Minutes): 60 Supervising Physician Co-Signing Physician Notes Attending Addendum: care coordinated with ASHLEE Sophia Lopez please refer to her notes for full details, I agree with her notes patient seen and examined, records reviewed by myself as well Duane Shah MD
== END 2023-03-22 13:10 | DRG 698 ==
LOC: ED 12:42 → 3W 17:52 → SUATTDRO 17:52 → 3W 19:55

== ENCOUNTER 2023-11-19 21:42 | Inpatient (IN) ==
--- OUTSIDE RECORDS SUMMARY | 2023-11-19 21:48 | External Medical Summary ---
Author Name Unknown Address Unknown Organization K0G:[facility] [address] [place] [address] Laboratory Report Ordering Provider Test Date Status SOLE HENDRIX 10/05/2023 09:07:30 Final Observation Date Value Abnormality Reference (Units ) Status Color of Urine by Auto 10/05/2023 09:07:30 Yellow Light Yellow, Yellow, Dark Yellow Final Clarity, Urine 10/05/2023 09:07:30 Cloudy Abnormal Clear Final Glucose [Mass/volume] in Urine by Automated test strip 10/05/2023 09:07:30 Negative Negative (mg/dL) Final Bilirubin.total [Presence] in Urine by Automated test strip 10/05/2023 09:07:30 Negative Negative Final Ketones [Mass/volume] in Urine by Automated test strip 10/05/2023 09:07:30 Negative Negative (mg/dL) Final Specific gravity, Urine 10/05/2023 09:07:30 1.025 1.003-1.030 Final Hemoglobin [Presence] in Urine by Automated test strip 10/05/2023 09:07:30 Moderate Abnormal Negative Final pH, Urine 10/05/2023 09:07:30 7.0 5.0-7.5 (Units) Final Protein [Mass/volume] in Urine by Automated test strip 10/05/2023 09:07:30 100 Abnormal Negative (mg/dL) Final Urobilinogen [Mass/volume] in Urine by Automated test strip 10/05/2023 09:07:30 0.2 0.2, 1.0 (mg/dL) Final Nitrite [Presence] in Urine by Automated test strip 10/05/2023 09:07:30 Positive Abnormal Negative Final Leukocyte esterase [Presence] in Urine by Automated test strip 10/05/2023 09:07:30 Moderate Abnormal Negative Final Performing Location [facility] [address] [place] [address]
--- OUTSIDE RECORDS SUMMARY | 2023-11-19 21:48 | External Medical Summary ---
Author Name Unknown Address Unknown Organization [id number]:LABORATORY [facility] - [address] [facility] [address] Laboratory Report Ordering Provider Test Date Status SOLE HENDRIX 10/05/2023 09:07:30 Final Observation Date Value Abnormality Reference (Units ) Status Bacteria identified in Specimen by Culture 10/05/2023 09:07:30 [id number]^ESCHE RICHIA COLI Abnormal Final >100,000 colonies/mL Escheri herlinda coli Performing Location [facility] - [address] [place] [address] Ordering Provider Test Date Status SOLE HENDRIX 10/05/2023 09:07:30 Final Observation Date Value Abnormality Reference (Units ) Status Ampicillin 10/05/2023 09:07:30 <=2 Susceptible Final Cefazolin 10/05/2023 09:07:30 <=4 Susceptible Final Cefepime susceptibility 10/05/2023 09:07:30 <=1 Susceptible Final Ceftriaxone suceptibility 10/05/2023 09:07:30 <=1 Susceptible Final Ciprofloxacin 10/05/2023 09:07:30 <=0.25 Susceptible Final Due to serious side effects, the FDA has advised against using Ciprofloxacin to treat uncomplicated UTIs and respiratory tract infections unless there are no alternative treatment options. Gentamicin susceptibility 10/05/2023 09:07:30 <=1 Susc eptible Final Nitrofurantoin susceptibility 10/05/2023 09:07:30 <=16 Susceptible Final Piperacillin + Tazobactamsusceptibility 10/05/2023 09:07:30 <=4 Susceptible Final TMP-SMZ susceptibility 10/05/2023 09:07:30 <=20 Suscept ible Final Test: Culture, Urine, Quanti tative
Specimen Source: Urine, Catheter
Specimen Type: Urine
Specimen Date: 10/05/2023 9:07 AM
Result Date: 10/08/2023 7:17 AM
Result Status: Final result
Abnormal: Yes
Resulting Lab: [facility]
[address]
[place] [address]

CULTURE

>100,000 colonies/mL Escherichia coli (Abnormal)

SUSCEPTIBILITY

Escherichia coli
METHOD MICROBROTH DILUTIONS

AMPICILLIN <=2 Susceptible
CEFAZOLIN <=4 Susceptible
CEFEPIME <=1 Susceptible
CEFTRIAXONE <=1 Susceptible
CIPROFLOXACIN <=0.25 Susceptible [1]
GENTAMICIN <=1 Susceptible
NITROFURANTOIN <=16 Susceptible
PIPERACILLIN TAZOBACTAM <=4 Susceptible
TRIMETH/SULFAMETHOXAZOLE <=20 Susceptible

[1] Due to serious side effects, the FDA has advised against using
Ciprofloxacin to treat uncomplicated UTIs and respiratory tract infections
unless there are no alternative treatment options.

null Performing Location LAB[facility] - [address] [facility] [address]
--- OUTSIDE RECORDS SUMMARY | 2023-11-19 21:48 | External Medical Summary | Summary of Care ---
Author Name Unknown Organization [facility] Address [address] [place] [address] Phone [phone] Care Team Providers Care Auto Radiator Mechanic Name Role Phone Dandre Baldwin Primary Care Provider Reason for Visit * Reason Comments Outpatient Testing Encounter Details Date Type Department Care Team (Late st Contact Info) Description 10/05/2023 9:10 AM EST Laboratory Laboratory, [facility] [address] [place] [id number] [facility] [address] [place] [address] UTI (urinary tract infection) Allergies Active Allergy Reactions Criticality Noted Date Comments Bacitracin Itching 02/20/2018 Ezetimibe 09/19/2008 Shellfish Allergy 03/25/2023 Sulfa Antibiotics 12/24/2017 Tramadol Itching 12/24/2017 documented as of this encounter (statuses as of 10/05/2023) Medications Medication Sig Dispensed Refills Start Date End Date Status Famotidine 20 MG Oral Tablet (Pepcid)Indication s:History of fracture of right hip Take by mouth 1 Tablet in the morning AND 1 Tablet before bedtime. 180 Tablet 3 03/14/2022 Active Loratadine 10 MG Oral Tablet (Claritin) Take by mouth 1 Tablet in the morning. 90 Tablet 3 03/14/2022 Active Polyethylene Glycol 3350 17 GM/SCOOP Oral Powder (MiraLax)Indicatio ns:Other constipation,Histo ry of fecal impaction Take by mouth 17 g in the morning. Dissolve one heaping tablespoon in 8 ounces of water or juice.. 1734 g 3 03/14/2022 Active Additional Information Patient taking differently:17 g OralBID (.AM/PM), Dissolve one heaping tablespoon in 8 ounces of water or juice., Reported on 03/25/2023 Acetaminophen 325 MG Oral Tablet (Tylenol) Take by mouth 2 Tablets every 4 hours as needed for Fever >38C(100.5F) or Pain, Breakthrough. 100 Tablet 3 03/14/2022 Active Sertraline HCl 25 MG Oral Tablet (Zoloft) Take 1 Tablet by mouth in the morning. 0 Active Docusate Sodium 100 MG Oral Tablet Take 1 Tablet by mouth in the morning. 0 Active Potassium Chloride Mimi ER 10 MEQ Oral Tablet Extended Release Take 1 Tablet by mouth in the morning. 0 Active Omeprazole 20 MG Oral Capsule Delayed Release (PriLOSEC) Take 1 Capsule by mouth in the morning and 1 Capsule before bedtime. 0 Active Mirtazapine 15 MG Oral Tablet (Remeron) Take 1 Tablet by mouth at bedtime. 0 08/13/2023 Active LORazepam 0.5 MG Oral Tablet (Ativan) Take 1 Tablet by mouth 3 times a day as needed for Agitation or Anxiety. 30 Tablet 0 10/04/2023 Active documented as of this encounter (statuses as of 10/05/2023) Active Problems Problem Noted Date Diagnosed Date Non-pressure chronic ulcer of buttock 08/13/2023 Closed avulsion fracture of greater trochanter of femur with routine healing, right 02/20/2022 S/p left hip fracture 02/20/2022 S/P hip hemiarthroplasty 02/20/2022 Slow transit constipation 02/20/2022 S/P right hip fracture 02/20/2022 SIADH (syndrome of inappropriate ADH production) 02/20/2022 Moderate episode of recurrent major depressive d isorder 01/04/2022 Senile dementia, uncomplicated 05/18/2021 Spencer's palsy 10/19/2019 Senile osteoporosis 01/02/2019 Closed stable burst fracture of twelfth thoracic vertebra with routine healing 12/24/2017 Spondylolisthesis of lumbar region 12/24/2017 DDD (degenerative disc disease), lumbar 12/25/19 18 Spinal stenosis of lumbar re gion without neurogenic claudication 12/24/2017 HTN, goal below 150/90 documented as of this encounter (statuses as of 10/05/2023) Resolved Problems Problem Noted Date Diagnosed Date Resolved Date Hyperparathyroidism, unspecified 10/19/2019 08/13/2023 documented as of this encounter (statuses as of 10/05/2023) Immunizations Name Administration Dates Next Due COVID-19 mRNA, LNP-s, No Pre serve, 2-Dose Series (Xiam) 08/19/2021,12/26/2020,12/05/2020 H1N1 2009 Influenza, IM 08/10/2009 Pneumococcal Conjugate Vacc, 13 Valent (Prevnar) 06/27/2015 Pneumococcal Polysaccharide PPV23 (Pneumovax) 12/18/2011 Season Influenza, Quad, PF, Adjuvanted, 65+ Yrs, IM (FLUAD) 07/13/2020 Seasonal Influenza, Quadriva lent Hd (Fluzone Hd) 09/05/2021 Seasonal Influenza, Quadriva lent, No Preserve, IM 07/07/2017,07/07/2016,07/07/2015 Seasonal Influenza, Recombin ant, RIV4, PF, (Flublock) 07/03/2018 Seasonal Influenza, Split, I IV3, With Preserve, Inj 07/03/2018,07/07/2013 Seasonal Influenza, Trivalen t, Adjuvanted, 65+ yrs 07/20/2019 Seasonal Influenza, Trivalen t, High Dose, No Preserve, IM 08/05/2014 TDAP (age 10 and older)(Boostrix) 10/15/2011 Varicella Zoster Vaccine (Adult) 10/19/2010 Zoster Vaccine Recombinant (Shingrix) 11/04/2019 ,05/27/2019 documented as of this encounter Social History Tobacco Use Types Packs/Day Years Used Date Smoking Tobacco: Never Smokeless Tobacco: Never Alcohol Use Standard Drinks/Week Comments Yes 0 (1 standard drink = 0.6 oz pur e alcohol) occasional, very little PHQ-2 Answer Date Recorded PHQ Adult Total Score 0 05/18/2021 Hunger Vital Sign Answer Date Recorded Worried About Running Out of Food in the Last Ye ar Never true 05/31/2020 Ran Out of Food in the Last Year Never true 05/31/2020 Sex and Gender Information Value Date Recorded Sex Assigned at Female 09/25/2019 10:09 AM EST Gender Identity Female 09/25/2019 10:09 AM EST Sexual Orientation Straight 04/28/2023 12 :31 PM EDT Job Start Date Occupation Industry Not on file Not on file Not on file documented as of this encounter Functional Status Functional Status Response Date of Assess ment Are you deaf or do you have serious difficulty h earing? No 12/24/2017 Are you blind or do you have serious difficulty seeing, even when wearing glasses? No 12/24/2017 Do you have serious difficul ty walking or climbing stairs? (5 years old or older) No 12/24/2017 Do you have difficulty dress ing or bathing? (5 years old or older) No 12/24/2017 Because of a physical, menta l, or emotional condition, do you have difficulty doing errands alone such as visiting a doctor s office or shopping? (15 years old or older) No 12/25/19 18 Cognitive Status Response Date of Assessm ent Because of a physical, menta l, or emotional condition, do you have serious difficulty concentrating, remembering, or making decisions? (5 years old or older) No 12/24/2017 documented as of this encounter Plan of Treatment Pending Results Name Type Priority Associated Diagnoses Date /Time URINALYSIS, REFLEX TO MICROSCOPIC Lab Routine UTI (urinary tract infection) 10/05/2023 9:07 AM EST CULTURE, URINE, QUANTITATIVE Lab Routine UTI (urinary tract infection) 10/05/2023 9:07 AM EST Health Maintenance Due Date Last Done Comments Albumin/Creatinine Ratio 1958 DTaP,Tdap,and Td Vaccines (2 - Td or Tdap) 10/15/2021 10/15/2011 Depression Screening 05/18/2022 05/18/2021 COVID-19 Vaccine ( season) 2023 08/19/2021, 12/26/2020, 12/05/2020 Influenza Vaccine (FLU shot) (#1) 2023 09/05/2021, 07/13/2020, 07/20/2019, Additional history exists DXA Scan 05/02/2024 05/02/2022, 11/08, 10/15/2016 Pneumococcal Vaccine: 65+ Years Completed 06/27/2015, 12/18/2011 Zoster Vaccines Completed 11/04/2019, 05/08, 10/19/2010 VITAMIN D LEVEL ONCE IN A LIFETIME-USE SMARTSET# [id number] Completed 05/31/2020, 11/25/2019, 08/06/2019, Additional history exists GARDASIL-HPV IMMUNIZATION SERIES Aged Out No longer eligible based on patient's age to complete this topic Hepatitis B Aged Out No longer eligi ble based on patient's age to complete this topic MENINGOCOCCAL (MENACTRA/MENVEO) Aged Out No longer eligible based on patient's age to complete this topic documented as of this encounter Medical Devices Not on filedocumented as of this encounter Visit Diagnoses Diagnosis UTI (urinary tract infection) Urinary tract infection, site not specified documented in this encounter Care Teams Auto Radiator Mechanic Relationship Specialty Start Date End Date Dandre Baldwin DO [address] [place] [place] [address] PCP - General Internal Medicine 03/13/22 documented as of this encounter
--- OUTSIDE RECORDS SUMMARY | 2023-11-19 21:48 | External Medical Summary ---
Author Name Unknown Address Unknown Organization K0G:LAB[facility]AT[facility] [place] [address] [place] [address] Laboratory Report Ordering Provider Test Date Status SOEL HENDRIX 10/05/2023 09:07:30 Final Observation Date Value Abnormality Reference (Units ) Status RBC, Urine 10/05/2023 09:07:30 20-29 Abnormal 0-2 (/HPF) Final WBC, Urine 10/05/2023 09:07:30 50+ Abnormal 0-2 (/HPF) Final Bacteria [#/area] in Urine sediment by Microscopy high power field 10/05/2023 09:07:30 >200 Abnormal 0-25 (/HPF) Final Performing Location LAB[facility]ORY [place] [address] [place] [address]
--- OUTSIDE RECORDS SUMMARY | 2023-11-19 21:48 | External Medical Summary | Summary of Care ---
Author Name Unknown Organization [facility] Address [address] [place] [address] Phone [phone] Care Team Providers Care Industry Consultant Name Role Phone Dandre Baldwin Primary Care Provider Reason for Visit * Reason Onset Date Comments Senior Care Call 10/04/2023 Encounter Details Date Type Department Care Team (Late st Contact Info) Description 10/04/2023 Telephone [facility] [address] [place] [address] Echo Cook PA-C [address] [place] [address] Senior Care Call Allergies Active Allergy Reactions Criticality Noted Date Comments Bacitracin Itching 02/20/2018 Ezetimibe 09/19/2008 Shellfish Allergy 03/25/2023 Sulfa Antibiotics 12/24/2017 Tramadol Itching 12/24/2017 documented as of this encounter (statuses as of 10/04/2023) Medications Medication Sig Dispensed Refills Start Date [...] in the morning. 0 Active Potassium Chloride Mmii ER 10 MEQ Oral Tablet Extended Release [...] as of this encounter (statuses as of 10/04/2023) Active Problems Problem Noted Date Diagnosed Date [...] as of this encounter (statuses as of 10/04/2023) Resolved Problems Problem Noted Date Diagnosed Date Resolved Date Hyperparathyroidism, unspecified 10/19/2019 08/13/2023 documented as of this encounter (statuses as of 10/04/2023) Immunizations Name Administration Dates Next Due COVID-19 mRNA, LNP-s, No Pre serve, 2-Dose Series ([employer]) 08/19/2021,12/26/2020,12/05/2020 H1N1 2009 Influenza, IM 08/10/2009 Pneumococcal [...] No 12/24/2017 documented as of this encounter Miscellaneous Notes * Telephone Encounter - Echo Cook PA-C - 10/04/2023 8:47 PM EST RECEIVED CALL FROM [facility] 10/04/23 AT 6:50 PM PT WITH HX OFDEMENTIA, SIADH HAVING INCREASED CONFUSION COMPARED TO HER BASELINE, MORE ANXIETY, DIFFICULT TO CONSOLE. VITAL SIGNS STABLE. NO PAIN ISSUES. NO COUGH, CHEST PAIN, CONGESTION. NO NOTED DYSURIA. NO RECENT MEDICATION CHANGES. WILL OBTAIN URINALYSIS AND C&S. CONTINUE TO MONITOR VITAL SIGNS. REQUEST FOR TEMPORARY PRN MEDICATION FOR ANXIETY. RX FOR ATIVAN 0.5MG TID PRN ANXIETY #30 RO SENT TO [facility] VIA E SCRIPT. documented in this encounter Plan of Treatment Health Maintenance Due Date Last Done Comments Albumin/Creatinine Ratio 1958 DTaP,Tdap,and Td Vaccines (2 - Td or Tdap) 10/15/2021 10/15/2011 Depression Screening 05/18/2022 05/18/2021 COVID-19 Vaccine (4 - 2022- season) 2023 08/19/2021, 12/26/2020, 12/05/2020 Influenza Vaccine (FLU shot) (#1) 2023 09/05/2021, 07/13/2020, 07/20/2019, Additional history exists DXA Scan 05/02/2024 05/02/2022, 11/08, 10/15/2016 Pneumococcal Vaccine: 65+ Years Completed 06/27/2015, 12/18/2011 Zoster Vaccines Completed 11/04/2019, 05/08, 10/19/2010 VITAMIN D LEVEL ONCE IN A LIFETIME-USE SMARTSET# [id number] Completed 05/31/2020, 11/25/2019, 08/06/2019, Additional history exists [...] Not on filedocumented as of this encounter Care Teams Industry Consultant Relationship Specialty Start Date End Date Dandre Baldwin DO [address] [facility] [address] PCP - General Internal Medicine 03/13/22 documented as of this encounter
--- OUTSIDE RECORDS SUMMARY | 2023-11-19 21:48 | External Medical Summary ---
Author Name Unknown Address Unknown Organization K01:[facility] [place] [address] [facility] [address] Laboratory Report Ordering Provider Test Date Status SOLE HENDRIX 11/18/2023 15:00:00 Final Observation Date Value Abnormality Reference (Units ) Status SARS Coronavirus 2 11/18/2023 15:00:00 Negative N egative Final No SARS-CoV2 Coronavirus RNA detected by PCR (amplified probe).
This express test was developed and its performance characteristics determined by [facility]. It has not been cleared or approved by the U.S. Food and Drug Administration (FDA). FDA does not require this test to go thru premarket FDA review. This test is used for clinical purposes. It should not be regarded as investigational or for research. This laboratory is certified under the Clinical Laboratory Improvement Amendments (CLIA) as qualified to perform high complexity clinical laboratory testing.

This test is a nucleic acid amplification test (NAAT), a reverse transcriptase polymerase chain reaction (RT-PCR) test, or a Centers for Disease Control-acceptable equivalent. The test is performed in a high complexity Clinical Laboratory Improvement Amendments-(CLIA) certified laboratory. The test is acceptable for SARS-CoV-2 diagnosis, surveillance, and travel within the [place] and to most countries. Please check with local testing authorities about requirements before travel.

The validation of bronchial specimens, tracheal aspirates, and sputum for this assay was developed and performance characteristics determined by [facility]. The validation of alternate specimen types has not been cleared or approved by the U.S. Food and Drug Administration (FDA). It has been determined that such clearance is not necessary. Influenza virus A RNA [Prese nce] in Specimen by [facility] with probe detection 11/18/2023 15:00:00 Negative Negative Final No Influenza A RNA detected by PCR (amplified probe) Influenza virus B RNA [Prese nce] in Specimen by [facility] with probe detection 11/18/2023 15:00:00 Negative Negative Final No Influenza B RNA detected by PCR (amplified probe) Respiratory syncytial virus RNA [Identifier] in Specimen by [facility] with probe detection 11/18/2023 15:00:00 Negative Negative Final No Respiratory Syncytial Vir us RNA detected by PCR (amplified probe) Performing Location [address]ATORY [address] [facility] [address]
--- OUTSIDE RECORDS SUMMARY | 2023-11-19 21:48 | External Medical Summary | Summary of Care ---
Author Name Unknown Organization [facility] Address [address] [place] [address] Phone [phone] Care Team Providers Care Client Reporting Associate Name Role Phone Dandre Baldwin Primary Care Provider Reason for Visit * Reason Onset Date Comments Fdc Visit 10/08/2023 Encounter Details Date Type Department Care Team (Late st Contact Info) Description 10/08/2023 9:30 AM EST Fdc Visit [facility], [address] [place] [address] Yvette Boyd PA-C [address] [place] [address] Acute cystitis with hematuria*; Colovesical fistula Allergies Active Allergy Reactions Criticality Noted Date Comments Bacitracin Itching 02/20/2018 Ezetimibe 09/19/2008 Shellfish Allergy 03/25/2023 Sulfa Antibiotics 12/24/2017 Tramadol Itching 12/24/2017 documented as of this encounter (statuses as of 10/08/2023) Medications Medication Sig Dispensed Refills Start Date End Date Status Famotidine 20 MG Oral Tablet (Pepcid)Indicati ons:History of fracture of right hip Take by mouth 1 Tablet in the morning AND 1 Tablet before bedtime. 180 Tablet 3 03/14/2022 Active Loratadine 10 MG Oral Tablet (Claritin) Take by mouth 1 Tablet in the morning. 90 Tablet 3 03/14/2022 Active Polyethylene Glycol 3350 17 GM/SCOOP Oral Powder (MiraLax)Indicat ions:Other constipation,His tory of fecal impaction Take by mouth 17 [...] Agitation or Anxiety. 30 Tablet 0 10/04/2023 Discontinue d(End of Procedure) documented as of this encounter (statuses as of 10/08/2023) Active Problems Problem Noted Date Diagnosed Date [...] as of this encounter (statuses as of 10/08/2023) Resolved Problems Problem Noted Date Diagnosed Date Resolved Date Hyperparathyroidism, unspecified 10/19/2019 08/13/2023 documented as of this encounter (statuses as of 10/08/2023) Immunizations Name Administration Dates Next Due COVID-19 mRNA, LNP-s, No Pre serve, 2-Dose Series ([employer]) 08/19/2021,12/26/2020,12/05/2020 H1N1 2009 Influenza, IM 08/10/2009 Pneumococcal [...] on file documented as of this encounter Last Filed Vital Signs Vital Sign Reading Time Taken Comments Blood Pressure 141/80 10/08/2023 10:28 AM EST Pulse 78 10/08/2023 10:28 AM EST Temperature 36.9 C (98.4 F) 10/08/2023 10:[address] Respiratory Rate 18 10/08/2023 10:28 AM EST Oxygen Saturation 95% 10/08/2023 10:28 AM EST room air Inhaled Oxygen Concentration - - Weight - - Height - - Body Mass Index - - documented in this encounter Functional Status Functional Status Response [...] No 12/24/2017 documented as of this encounter Progress Notes * Yvette Boyd PA-C - 10/08/2023 9:30 AM EST Name: Analy Haq Date of : 1940 This note pertains to care provided at [facility]. Please see facility record for original note. This note is not to be edited or addended in [employer]. Editing or addending needs to occur in the facility's medical record. Chief Complaint Patient presents with Fdc Visit TRANSITION EVENT: Type: Non-applicable Date: October 08 Code Status: No Code SUBJECTIVE: Analy Haq is a 83 year old female HPI: patient had some episodes of agitation and increased anxiety with more confusion than usual over the past few days. UA with + blood/nitrites/esterase/WBCs/bacteria. Urine culture has grown e coli. She does not recall above noted episodes, and also denies dysuria and abdominal pain. She has had no reported fever, and staff report no gross hematuria this AM. History from the patient is limited due to cognitive impairment. 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, uncomplicated ([facility]) F03.90 Moderate episode of recurrent major depressive disorder ([facility]) F33.1 Closed avulsion fracture of greater trochanter of femur with routine healing, right S72.111D S/p left hip fracture Z87.81 S/P hip hemiarthroplasty Z96.649 Slow transit constipation K59.01 S/P right hip fracture Z87.81 SIADH (syndrome of inappropriate ADH production) ([facility]) 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 and was reviewed at this visit. Review of Systems: Per HPI OBJECTIVE: BP 141/80 | Pulse 78 | Temp 36.9 C (98.4 F) | Resp 18 | SpO2 95% Comment: room air General: alert, no distress, and thin and frail appearing, sitting in wheelchair, talkative and pleasant Heart: regular rate & rhythm Lungs: chest symmetric with normal AP diameter, no chest deformities noted, no chest wall tenderness, lungs clear to auscultation, decreased breath sounds Abdomen: abdomen soft, normal bowel sounds, no masses or organomegaly, no rebound or guarding, no CVA tenderness, and mild suprapubic discomfort noted Extremities: less than 2 second capillary refill, no joint deformities, effusion, or inflammation, no edema Neuro Exam: alert & oriented x 2 with fluent speech Skin: pink, warm, dry Results for orders placed or performed in visit on 10/05/23 URINALYSIS, REFLEX TO MICROSCOPIC Result Value Ref Range Color, Urine Yellow Light Yellow, Yellow, Dark Yellow Clarity, Urine Cloudy (A) Clear Glucose, Urine Negative Negative mg/dL Bilirubin, Urine Negative Negative Ketone, Urine Negative Negative mg/dL Specific [place], Urine 1.025 1.003 - 1.030 Blood, Urine Moderate (A) Negative pH, Urine 7.0 5.0 - 7.5 Units Protein, Urine 100 (A) Negative mg/dL Urobilinogen, Urine 0.2 0.2, 1.0 mg/dL Nitrite, Urine Positive (A) Negative Esterase, Urine Moderate (A) Negative CULTURE, URINE, QUANTITATIVE Specimen: Urine, Catheter Result Value Ref Range Culture Growth >100,000 colonies/mL Escherichia coli (A) Susceptibility Escherichia coli - MICROBROTH DILUTIONS Ampicillin Susceptible Cefazolin Susceptible Cefepime Susceptible Ceftriaxone Susceptible Ciprofloxacin* Susceptible * Due to serious side effects, the FDA has advised against using Ciprofloxacin to treat uncomplicated UTIs and respiratory tract infections unless there are no alternative treatment options. Gentamicin Susceptible Nitrofurantoin Susceptible Piperacillin Tazobactam Susceptible Trimeth/Sulfamethoxazole Susceptible MICROSCOPIC EXAM, URINE Result Value Ref Range RBC, Urine 20-29 (A) 0 - 2 /HPF WBC, Urine 50+ (A) 0 - 2 /HPF Bacteria, Urine >200 (A) 0 - 25 /HPF ASSESSMENT/PLAN: [facility] chart (outside system) reviewed for vital signs, nursing notes, CODE STATUS, and most up to date medication list Discussed management with other clinician during the visit (facility [facility]) Acute cystitis with hematuria (Primary) Colovesical fistula will treat as UTI - Macrobid Oral Capsule 100 MG (Nitrofurantoin Monohyd Macro) - Give 1 capsule bymouth every morning and at bedtime for UTI for 7 Days High risk for recurrent UTIs due to fistula of rectum/bladder/uterus/vagina Senior Care Home Treatment Given: Antibiotic Oral macrobid Follow up: as needed for new/worsening symptoms I spent a total of 33 minutes coordinating, documenting, and providing care for this patient excluding time spent in the performance of separately billed services or time spent by another provider/QHP. documented in this encounter Plan of Treatment [...] D LEVEL ONCE IN A LIFETIME-USE SMARTSET# [id number] Completed 05/31/2020, 11/25/2019, 08/06/2019, Additional history exists [...] as of this encounter Visit Diagnoses Diagnosis Acute cystitis with hematuria- Primary Acute cystitis Colovesical fistula Intestinovesical fistula documented in this encounter Care Teams Client Reporting Associate Relationship Specialty Start Date End Date Dandre Baldwin DO [facility] [place] [address] PCP - General Internal Medicine 03/13/22 documented as of this encounter"
--- OUTSIDE RECORDS SUMMARY | 2023-11-19 21:48 | External Medical Summary | Summary of Care ---
Author Name Unknown Organization [facility] Address [address] [place] [address] Phone [phone] Care Team Providers Care Sports Physician Name Role Phone Dandre Baldwin Primary Care Provider Reason for Visit * Reason Comments Outpatient Testing Encounter Details Date Type Department Care Team (Late st Contact Info) Description 10/05/2023 9:10 AM EST Laboratory Laboratory, [facility] [address] [place] [phone] [facility] [address] [place] [address] UTI (urinary tract infection) Allergies Active Allergy [...] mRNA, LNP-s, No Pre serve, 2-Dose Series ([employer]) 08/19/2021,12/26/2020,12/05/2020 H1N1 2009 Influenza, IM 08/10/2009 Pneumococcal [...] (urinary tract infection) 10/05/2023 9:07 AM EST MICROSCOPIC EXAM, URINE Lab Routine UTI (urinary tract infection) 10/05/2023 [...] D LEVEL ONCE IN A LIFETIME-USE SMARTSET# [id number] Completed 05/31/2020, 11/25/2019, 08/06/2019, Additional history exists [...] specified documented in this encounter Care Teams Sports Physician Relationship Specialty Start Date End Date Dandre Baldwin DO [address] [place] [address] PCP - General Internal Medicine 03/13/22 documented as of this encounter
--- OUTSIDE RECORDS SUMMARY | 2023-11-19 21:48 | External Medical Summary | Summary of Care ---
Author Name Unknown Organization [facility] Address [address] [place] [address] Phone [phone] Care Team Providers Care Lithographic Camera Operator Name Role Phone Dandre Baldwin Primary Care Provider Reason for Visit * Reason Onset Date Comments Fax 10/05/2023 Encounter Details Date Type Department Care Team (Late st Contact Info) Description 10/05/2023 Telephone Family Medicine [address] [address] Ulices Miller MD [address] [place] [address] FLOYD Littlejohn [phone] Fax Allergies Active Allergy Reactions Criticality Noted Date [...] mRNA, LNP-s, No Pre serve, 2-Dose Series ([employer]) 08/19/2021,12/26/2020,12/05/2020 H1N1 2009 Influenza, IM 08/10/2009 Pneumococcal [...] encounter Miscellaneous Notes * Telephone Encounter - Chelsie Coombs LPN - 10/05/2023 4:47 PM EST Spoke with Meenakshi letting her know that the results are consistent with a UTI but the culture isn't back yet to confirm. Asked if patient is symptomatic- Meenakshi checked with the nurse and said that the patient was agitated and confused last night and they had to obtain a PRN ativan order. Since they've been giving her that she's been fine. I asked Meenakshi which pharmacy should be used if the culture comes back showing an infection. Please send to [facility]. Results of UA faxed to number provided. Confirmation received. * Telephone Encounter - Lucia Garcia PA-C - 10/05/2023 4:37 PM EST OK to send UA result. Appears consistent with UTI. Does ABX need sent in also? Is patient symptomatic? * Telephone Encounter - Chelsie Coombs LPN - 10/05/2023 4:19 PM EST UA is final, culture still in process. Ok to send UA result? * Telephone Encounter - Maxine Cabello OSA - 10/05/2023 3:47 PM EST Meenakshi from [facility] called asking for results from recent UA that was ordered byMD ramirez collected on 10/05/23 documented in this encounter Plan of Treatment [...] D LEVEL ONCE IN A LIFETIME-USE SMARTSET# [id number] Completed 05/31/2020, 11/25/2019, 08/06/2019, Additional history exists [...] filedocumented as of this encounter Care Teams Lithographic Camera Operator Relationship Specialty Start Date End Date Dandre Baldwin DO [address] [place] [address] PCP - General Internal Medicine 03/13/22 documented as of this encounter
--- OUTSIDE RECORDS SUMMARY | 2023-11-19 21:48 | External Medical Summary | Summary of Care ---
Author Name Unknown Organization [facility] Address [address] [place] [address] Phone [phone] Care Team Providers Care Gis Software Engineer Name Role Phone Dandre Baldwin Primary Care Provider Reason for Visit * Reason Onset Date Comments Care Home Visit 10/15/2023 Encounter Details Date Type Department Care Team (Late st Contact Info) Description 10/15/2023 10:00 AM EST Care Home Visit [facility], [address] [place] [address] Yvette Boyd PA-C [address] [place] [address] Dermatitis* Allergies Active Allergy Reactions Criticality Noted Date Comments Bacitracin Itching 02/20/2018 Ezetimibe 09/19/2008 Shellfish Allergy 03/25/2023 Sulfa Antibiotics 12/24/2017 Tramadol Itching 12/24/2017 documented as of this encounter (statuses as of 10/15/2023) Medications Medication Sig Dispensed Refills Start Date [...] by mouth at bedtime. 0 08/13/2023 Active documented as of this encounter (statuses as of 10/15/2023) Active Problems Problem Noted Date Diagnosed Date [...] as of this encounter (statuses as of 10/15/2023) Resolved Problems Problem Noted Date Diagnosed Date Resolved Date Hyperparathyroidism, unspecified 10/19/2019 08/13/2023 documented as of this encounter (statuses as of 10/15/2023) Immunizations Name Administration Dates Next Due COVID-19 mRNA, LNP-s, No Pre serve, 2-Dose Series ([employer]) 08/19/2021,12/26/2020,12/05/2020 H1N1 2009 Influenza, IM 08/10/2009 Pneumococcal [...] Sign Reading Time Taken Comments Blood Pressure - - Pulse - - Temperature 36.4 C (97.5 F) 10/15/2023 2:09 PM ES T Respiratory Rate - - Oxygen Saturation 93% 10/15/2023 2:09 PM EST room air Inhaled Oxygen Concentration - [...] as of this encounter Plan of Treatment Health Maintenance Due Date Last Done Comments Albumin/Creatinine Ratio 1958 DTaP,Tdap,and Td Vaccines (2 - Td or Tdap) 10/15/2021 10/15/2011 Depression Screening 05/18/2022 05/18/2021 COVID-19 Vaccine ( - 2022- season) 2023 08/19/2021, 12/26/2020, 12/05/2020 Influenza Vaccine (FLU shot) (#1) 2023 09/05/2021, 07/13/2020, 07/20/2019, Additional history exists DXA Scan 05/02/2024 05/02/2022, 11/08, 10/15/2016 Pneumococcal Vaccine: 65+ Years Completed 06/27/2015, 12/18/2011 Zoster Vaccines Completed 11/04/2019, 05/08, 10/19/2010 VITAMIN D LEVEL ONCE IN A LIFETIME-USE SMARTSET# [id number] Completed 05/31/2020, 11/25/2019, 08/06/2019, Additional history exists [...] as of this encounter Visit Diagnoses Diagnosis Dermatitis- Primary Contact dermatitis and other eczema, due to unspecified cause documented in this encounter Care Teams Gis Software Engineer Relationship Specialty Start Date End Date Dandre Baldwin DO [address] [place] [address] PCP - General Internal Medicine 03/13/22 documented as of this encounter
--- OUTSIDE RECORDS SUMMARY | 2023-11-19 21:48 | External Medical Summary | Summary of Care ---
Author Name Unknown Organization [facility] Address [address] [place] [address] Phone [phone] Care Team Providers Care Slasher Name Role Phone Dandre Baldwin Primary Care Provider Reason for Visit * Reason Comments Outpatient Testing Encounter Details Date Type Department Care Team (Late st Contact Info) Description 11/18/2023 4:30 PM EST Laboratory Laboratory [facility] [address] [facility] [place] [address] Pod3, Specimen Drop Off [facility] [address] [facility] [place] [address] Acute cough Allergies Active Allergy Reactions Criticality Noted Date Comments Bacitracin Itching 02/20/2018 Ezetimibe 09/19/2008 Shellfish Allergy 03/25/2023 Sulfa Antibiotics 12/24/2017 Tramadol Itching 12/24/2017 documented as of this encounter (statuses as of 11/18/2023) Medications Medication Sig Dispensed Refills Start Date [...] as of this encounter (statuses as of 11/18/2023) Active Problems Problem Noted Date Diagnosed Date [...] 12/24/2017 DDD (degenerative disc disease), lumbar 12/25/19 Spinal stenosis of lumbar re gion without neurogenic claudication 12/24/2017 HTN, goal below 150/90 documented as of this encounter (statuses as of 11/18/2023) Resolved Problems Problem Noted Date Diagnosed Date Resolved Date Hyperparathyroidism, unspecified 10/19/2019 08/13/2023 documented as of this encounter (statuses as of 11/18/2023) Immunizations Name Administration Dates Next Due COVID-19 [...] Name Type Priority Associated Diagnoses Date /Time INFLUENZA A/B RSV SARS-COV2,PCR Lab Routine Acute cough 11/18/2023 3:00 PM EST Health Maintenance Due Date Last Done Comments Albumin/Creatinine Ratio 1958 DTaP,Tdap,and Td Vaccines (2 - Td or Tdap) 10/15/2021 10/15/2011 Depression Screening 05/18/2022 05/18/2021 COVID-19 Vaccine ( season) 2023 08/19/2021, 12/26/2020, 12/05/2020 Influenza Vaccine (FLU shot) (#1) 2023 07/23/2022, 09/05/2021, 07/13/2020, Additional history exists DXA Scan 05/02/2024 05/02/2022, 04/07, 12/03/2018, Additional history exists Pneumococcal Vaccine: 65+ Years Completed 06/27/2015, 12/18/2011 Zoster Vaccines Completed 11/04/2019, 05/08, 10/19/2010 VITAMIN D LEVEL ONCE IN A LIFETIME-USE SMARTSET# [id number] Completed 05/31/2020, 11/25/2019, 08/06/2019, Additional history exists [...] of this encounter Visit Diagnoses Diagnosis Acute cough documented in this encounter Care Teams Slasher Relationship Specialty Start Date End Date Dandre Baldwin DO [address] [place] [address] PCP - General Internal Medicine 03/13/22 documented as of this encounter
--- OUTSIDE RECORDS SUMMARY | 2023-11-19 21:48 | External Medical Summary | Summary of Care ---
Author Name Unknown Organization [facility] Address [address] [place] [address] Phone [phone] Care Team Providers Care Body Painter Name Role Phone Dandre Baldwin Primary Care Provider Encounter Details Date Type Department Care Team (Late st Contact Info) Description 11/18/2023 Orders Only Laboratory [facility] [address] [place] [address] Yvette Boyd PA-C [address] [place] [address] Acute cough* Allergies Active Allergy Reactions Criticality Noted Date [...] mRNA, LNP-s, No Pre serve, 2-Dose Series ([employer]) 08/19/2021,12/26/2020,12/05/2020 H1N1 2009 Influenza, IM 08/10/2009 Pneumococcal [...] Routine Acute cough 11/18/2023 3:00 PM EST Scheduled Orders Name Type Priority Associated Diagnoses Orde r Schedule INFLUENZA A/B RSV SARS-COV2,PCR Lab Routine Acute cough Expected: 11/18/2023, Expires: 11/18/2024 Health Maintenance Due Date Last Done Comments [...] D LEVEL ONCE IN A LIFETIME-USE SMARTSET# [id number] Completed 05/31/2020, 11/25/2019, 08/06/2019, Additional history exists [...] of this encounter Visit Diagnoses Diagnosis Acute cough- Primary documented in this encounter Care Teams Body Painter Relationship Specialty Start Date End Date Dandre Baldwin DO [address] [facility] [address] PCP - General Internal Medicine 03/13/22 documented as of this encounter
--- OUTSIDE RECORDS SUMMARY | 2023-11-19 21:48 | External Medical Summary | Summary of Care ---
Author Name Unknown Organization [facility] Address [address] [place] [address] Phone [phone] Care Team Providers Care Site Superintendent Name Role Phone Dandre Baldwin Primary Care Provider Reason for Visit * Reason Onset Date Comments Retirement Visit 10/22/2023 Regulatory Encounter Details Date Type Department Care Team (Late st Contact Info) Description 10/22/2023 1:00 PM EST Retirement Visit [facility], [address] [place] [address] Yvette Boyd PA-C [address] [place] [address] [place] [address] Moderate episode of recurrent major depressive disorder (HCC)*; HTN, goal below 150/90; Dermatitis; Fistula involving 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; Colovesical fistula; Rectovaginal fistula; History of UTI; Spencer's palsy; Generalized weakness; Need for assistance with personal care; Senile dementia, uncomplicated (HCC); Gastroesophageal reflux disease without esophagitis Allergies Active Allergy Reactions Criticality Noted Date Comments Bacitracin Itching 02/20/2018 Ezetimibe 09/19/2008 Shellfish Allergy 03/25/2023 Sulfa Antibiotics 12/24/2017 Tramadol Itching 12/24/2017 documented as of this encounter (statuses as of 10/22/2023) Medications Medication Sig Dispensed Refills Start Date [...] as of this encounter (statuses as of 10/22/2023) Active Problems Problem Noted Date Diagnosed Date [...] as of this encounter (statuses as of 10/22/2023) Resolved Problems Problem Noted Date Diagnosed Date Resolved Date Hyperparathyroidism, unspecified 10/19/2019 08/13/2023 documented as of this encounter (statuses as of 10/22/2023) Immunizations Name Administration Dates Next Due COVID-19 mRNA, LNP-s, No Pre serve, 2-Dose Series ([employer]) 08/19/2021,12/26/2020,12/05/2020 H1N1 2009 Influenza, IM 08/10/2009 Pneumococcal [...] D LEVEL ONCE IN A LIFETIME-USE SMARTSET# [id number] Completed 05/31/2020, 11/25/2019, 08/06/2019, Additional history exists [...] as of this encounter Visit Diagnoses Diagnosis Moderate episode of recurrent major depressive disorder (HCC)- Primary HTN, goal below 150/90 Dermatitis Contact dermatitis and other eczema, due to unspecified cause 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 Colovesical fistula Intestinovesical fistula Rectovaginal fistula Digestive-genital tract fistula, female History of UTI Personal history of urinary (tract) infection Spencer's palsy Generalized weakness Other malaise and fatigue Need for assistance with personal care Unspecified problems related to lifestyle Senile dementia, uncomplicated (HCC) Senile dementia, uncomplicated Gastroesophageal reflux disease without esophagitis Esophageal reflux documented in this encounter Care Teams Site Superintendent Relationship Specialty Start Date End Date Dandre Baldwin DO [address] [place] [address] PCP - General Internal Medicine 03/13/22 documented as of this encounter
--- OUTSIDE RECORDS SUMMARY | 2023-11-19 21:48 | External Medical Summary | Summary of Care ---
Author Name Unknown Organization [facility] Address [address] [place] [address] Phone [phone] Care Team Providers Care Dispatch Officer Name Role Phone Dandre Baldwin Primary Care Provider [phone] Reason for Visit * Reason Onset Date Comments [facility] Visit 08/22/2023 Encounter Details Date Type Department Care Team (Late st Contact Info) Description 08/22/2023 10:30 AM EST [facility] Visit [facility], [address] [place] [address] Yvette Boyd PA-C [address] [place] [address] Acute cough* Allergies Active Allergy Reactions Criticality Noted Date Comments Bacitracin Itching 02/20/2018 Ezetimibe 09/19/2008 Shellfish Allergy 03/25/2023 Sulfa Antibiotics 12/24/2017 Tramadol Itching 12/24/2017 documented as of this encounter (statuses as of 08/22/2023) Medications Medication Sig Dispensed Refills Start Date [...] as of this encounter (statuses as of 08/22/2023) Active Problems Problem Noted Date Diagnosed Date [...] as of this encounter (statuses as of 08/22/2023) Resolved Problems Problem Noted Date Diagnosed Date Resolved Date Hyperparathyroidism, unspecified 10/19/2019 08/13/2023 documented as of this encounter (statuses as of 08/22/2023) Immunizations Name Administration Dates Next Due COVID-19 [...] Pressure - - Pulse - - Temperature 36.6 C (97.9 F) 08/22/2023 12:[address] Respiratory Rate 17 08/22/2023 12:05 PM EST Oxygen Saturation 95% 08/22/2023 12:05 PM EST Inhaled Oxygen Concentration - - Weight - [...] 2023 09/05/2021, 07/13/2020, 07/20/2019, Additional history exists GFR 03/29/2024 03/29/2023, 02/05, 02/19/2022, Additional history exists DXA Scan 05/02/2024 05/02/2022, 11/08, 10/15/2016 Pneumococcal Vaccine: 65+ Years Completed 06/27/2015, 12/18/2011 Zoster Vaccines Completed 11/04/2019, 05/08, 10/19/2010 VITAMIN D LEVEL ONCE IN A LIFETIME-USE SMARTSET# [id number] Completed 05/31/2020, 11/25/2019, 08/06/2019, Additional history exists [...] Primary documented in this encounter Care Teams Dispatch Officer Relationship Specialty Start Date End Date Dandre Baldwin DO [address] [place] [address] PCP - General Internal Medicine 03/13/22 documented as of this encounter
--- OUTSIDE RECORDS SUMMARY | 2023-11-19 21:48 | External Medical Summary | Summary of Care ---
Author Name Unknown Organization [facility] Address [address] [facility] [place] [address] Phone [phone] Care Team Providers Care Secured Entrance Monitor Name Role Phone Dandre Baldwin Primary Care Provider Reason for Visit * Reason Onset Date Comments [facility] Visit 08/13/2023 Regulatory Encounter Details Date Type Department Care Team (Latest Contact Info) Description 08/13/2023 9:50 AM EST [facility] Visit [facility], [address] [place] [address] Ulices Miller MD [address] [place] [address] [place] [address] Senile dementia, uncomplicated (HCC)*; Non-pressure chronic ulcer of buttock, unspecified ulcer stage ([facility]); Moderate episode of recurrent major depressive disorder (HCC); SIADH (syndrome of inappropriate ADH production) ([facility]); Closed stable burst fracture of twelfth thoracic vertebra with routine healing; HTN, goal below 150/90; Spinal stenosis of lumbar region without neurogenic claudication; Closed avulsion fracture of greater trochanter of femur with routine healing, right; S/P hip hemiarthroplasty; Spencer's palsy Allergies Active Allergy Reactions Criticality Noted Date Comments Bacitracin Itching 02/20/2018 Ezetimibe 09/19/2008 Shellfish Allergy 03/25/2023 Sulfa Antibiotics 12/24/2017 Tramadol Itching 12/24/2017 documented as of this encounter (statuses as of 08/13/2023) Medications Medication Sig Dispensed Refills Start Date [...] by mouth at bedtime. 0 08/13/2023 Active Mirtazapine 15 MG Oral Tablet (Remeron) TAKE ONE TABLET BY MOUTH EVERY DAY AT BEDTIME 90 Tablet 5 07/04/2022 3 Discontinue d(Refill) documented as of this encounter (statuses as of 08/13/2023) Active Problems Problem Noted Date Diagnosed Date [...] as of this encounter (statuses as of 08/13/2023) Resolved Problems Problem Noted Date Diagnosed Date Resolved Date Hyperparathyroidism, unspecified 10/19/2019 08/13/2023 documented as of this encounter (statuses as of 08/13/2023) Immunizations Name Administration Dates Next Due COVID-19 mRNA, LNP-s, No Pre serve, 2-Dose Series ([employer]) 08/19/2021,12/26/2020,12/05/2020 H1N1 2009 Influenza, IM 08/10/2009 Pneumococcal [...] or making decisions? (5 years old or older No 12/24/2017 documented as of this encounter Progress Notes * Ulices Miller MD - 08/13/2023 12:10 PM EST Regulatory Visit TRANSITION EVENT: Type: Regulatory visit Date: August 13 Code Status: No Code Name: Analy Haq Date of : 1940 This note [place] [facility] Please see facility medical record for original note. This note is not to be edited or [facility]ended [facility]. Editing or addending needs to occur in the facilities medical record. S: Analy Haq seen today as part of a regulatory visit. 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, uncomplicated ([facility]) F03.90 Moderate episode of recurrent major depressive disorder ([facility]) F33.1 Closed avulsion fracture of greater trochanter of femur with routine healing, right S72.111D S/p left hip fracture Z87.81 S/P hip hemiarthroplasty Z96.649 Slow transit constipation K59.01 S/P right hip fracture Z87.81 SIADH (syndrome of inappropriate ADH production) ([facility]) E22.2 Non-pressure chronic ulcer of buttock ([facility]) L98.419 Past Medical History: Diagnosis Date 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 Frausto REPAIR HIP FRACTURE(S), W/FIXATION Left 02/04/2022 Dr. Kc--intramedullary nail Family History Problem Relation Age of Onset Hypertension Mother Alzheimer's disease Mother Hypertension Father Heart Disorder Father Diabetes Grandmother (Paternal) Breast Cancer Aunt (Paternal) Breast Cancer Aunt (Paternal) Breast Cancer Aunt (Paternal) Heart Disorder Brother unkown Family Status Relation Status Mo Fa PGMA (Not Specified) PAUNT (Not Specified) PAUNT (Not Specified) PAUNT (Not Specified) Bro Alive Social History Socioeconomic History Marital status: Spouse name: Not on file Number of children: Not on file Years of education: Not on file Highest education level: Not on file Occupational History Not on file Tobacco Use Smoking status: Never Smokeless tobacco: Never Substance and Sexual Activity Alcohol use: Yes Comment: occasional, very little Drug use: No Sexual activity: Not on file Other Topics Concern Not on file Social History Narrative Not on file Social Determinants of Health Financial Resource Strain: Not on file Food Insecurity: No Food Insecurity (05/31/2020) Hunger Vital Sign Worried About Running Out of Food in the Last Year: Never true Ran Out of Food in the Last Year: Never true Transportation Needs: Not on file Physical Activity: Not on file Stress: Not on file Social Connections: Not on file Intimate Partner Violence: Not on file Housing Stability: Not on file Review of patient's allergies indicates: Allergen Reactions Bacitracin Itching Ezetimibe Shellfish Allergy Sulfa Antibiotics Tramadol Itching She is now not having any current problems. Being followed by wound care in house for buttocks pressure injury Is not having pain issues. Is not having behavioral problems. Results for orders placed or performed in visit on 03/29/23 BASIC METABOLIC PANEL Result Value Ref Range BUN 13 6 - 20 mg/dL Creatinine 0.8 0.5 - 1.0 mg/dL Estimated Glomerular Filtration Rate 78 >=60 mL/min Sodium 143 135 - 146 mmol/L Potassium 4.1 3.5 - 5.1 mmol/L Chloride 109 (H) 98 - 107 mmol/L CO2 26 22 - 32 mmol/L Anion Gap 8 7 - 15 mmol/L Glucose 89 70 - 120 mg/dL Calcium 9.8 8.4 - 10.2 mg/dL Lab Results Component Value Date/Time TSH Marcin MARTINEZ 2.33 07/15/2018 12:58 PM CBC Results: Results for orders placed or performed in visit on 02/19/22 CBC Result Value Ref Range WBC 10.88 (H) 4.00 - 10.80 K/uL RBC 3.50 (L) 3.85 - 5.15 M/uL HGB 9.5 (L) 12.0 - 15.3 g/dL HCT 30.2 (L) 36.0 - 45.2 % MCV 86.3 81.5 - 97.5 fL MCH 27.1 27.0 - 34.0 pg MCHC 31.5 (L) 32.0 - 36.0 g/dL RDW 15.2 11.5 - 15.5 % PLT 605 (H) 140 - 400 K/uL MPV 8.3 6.6 - 11.1 fL Basic Panel Results: Results for orders placed or performed in visit on 03/29/23 BASIC METABOLIC PANEL Result Value Ref Range BUN 13 6 - 20 mg/dL Creatinine 0.8 0.5 - 1.0 mg/dL Estimated Glomerular Filtration Rate 78 >=60 mL/min Sodium 143 135 - 146 mmol/L Potassium 4.1 3.5 - 5.1 mmol/L Chloride 109 (H) 98 - 107 mmol/L CO2 26 22 - 32 mmol/L Anion Gap 8 7 - 15 mmol/L Glucose 89 70 - 120 mg/dL Calcium 9.8 8.4 - 10.2 mg/dL ROS: obtained from patient, staff, and notes CONSTITUTIONAL: No change in weight and No fevers, sweats, or chills EYE: No eye pain, redness, discharge and +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 EARS: No ear pain, No drainage, and No tinnitus or vertigo NOSE: No history of frequent colds or sinusitis, No nasal stuffiness, and No significant epistaxis MOUTH: No thrush or No sore throat PULMONARY: No cough, sputum, or hemoptysis and No recent change in breathing CARDIOVASCULAR: No chest pain, No shortness of breath, No orthopnea, No paroxysmal nocturnal dyspnea, No edema, and No syncope GASTROINTESTINAL: No change in bowel habits, No significant change in appetite, No nausea, vomiting, diarrhea, or constipation, No hematemesis, No blood in stools or black tarry stools, and No dysphagia FEMALE: No dysuria, No frequency, and incontinent of bowel and bladder EXTREMITIES: +osteoarthritis SKIN/INTEGUMENTARY: No rash NEUROLOGIC: +dementia and Spencer's palsy affecting left side of face PSYCHIATRIC: +depression O: I reviewed the most recent facilities vitals. General: alert, no distress, and thin, elderly female seated in a chair Head: Normocephalic, No masses, lesions, tenderness or abnormalities Neuro: alert, cooperative, follows simple commands, mildly confused, +paralysis affecting left sideof face Eye Exam: PERRLA, extraocular movements intact, conjunctiva are pink and non- injected, sclera clear Ears: External ears normal Nose: no mucosal erythema, no mucosal edema, no purulent discharge Oropharynx: no exudate, no erythema, lips, buccal mucosa, and tongue normal, and mucous membranes are moist Neck: supple, no adenopathy Heart: regular rate & rhythm, no murmur, and no gallops Lungs: chest symmetric with normal AP diameter, no chest deformities noted, no chest wall tenderness, lungs clear to auscultation Abdomen: abdomen soft, non-tender, normal bowel sounds, and no masses or organomegaly Extremities: no edema, no clubbing, no cyanosis A: Senile dementia, uncomplicated (HCC) (Primary)--stable. Requires nursing facility care. Non-pressure chronic ulcer of buttock, unspecified ulcer stage ([facility])--continue dressing changes andwound care follow-up. Moderate episode of recurrent major depressive disorder ([facility])--controlled with sertraline 25 mg daily and mirtazapine 15 mg at bedtime SIADH (syndrome of inappropriate ADH production) ([facility])--sodium normal. 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 Please refer to MAR in the facility's medical record for the most up-to-date medication list. Continue present medication(s): Reviewed long term record for: vital signs, weight, bowel, and bladder function, and ADLs. Labs reviewed Continue current treatment plan as ordered Continue to follow up as needed and as scheduled [facility] Given: n/a Electronically signed by: Ulices Miller MD I spent a total of 30 minutes coordinating, documenting, and providing care for this patient excluding time spent in the performance of separately billed services or time spent by another provider/QHP. documented in this encounter Plan of Treatment Health Maintenance Due Date Last Done Comments Albumin/Creatinine Ratio 1958 DTaP,Tdap,and Td Vaccines (2 - Td or Tdap) 10/15/2021 10/15/2011 Depression Screening 05/18/2022 05/18/2021 COVID-19 Vaccine (4 - 2023-24 season) 2023 08/19/2021, 12/26/2020, 12/05/2020 Influenza Vaccine (FLU shot) (#1) 2023 09/05/2021, 07/13/2020, 07/20/2019, Additional history exists GFR 03/29/2024 03/29/2023, 02/05, 02/19/2022, Additional history exists DXA Scan 05/02/2024 05/02/2022, 11/08, 10/15/2016 Pneumococcal Vaccine: 65+ Years Completed 06/27/2015, 12/18/2011 Zoster Vaccines Completed 11/04/2019, 05/08, 10/19/2010 VITAMIN D LEVEL ONCE IN A LIFETIME-USE SMARTSET# [id number] Completed 05/31/2020, 11/25/2019, 08/06/2019, Additional history exists [...] as of this encounter Visit Diagnoses Diagnosis Senile dementia, uncomplicated (HCC)- Primary Senile dementia, uncomplicated Non-pressure chronic ulcer of buttock, unspecified ulcer stage (HCC) Moderate episode of recurrent major depressive disorder (HCC) SIADH (syndrome of inappropriate ADH production) (HCC) Other disorders of neurohypophysis Closed stable burst fracture of twelfth thoracic vertebra with routine healing HTN, goal below 150/90 Spinal stenosis of lumbar region without neurogenic claudication Spinal stenosis, lumbar region, without neurogenic claudication Closed avulsion fracture of greater trochanter of femur with routine healing, right S/P hip hemiarthroplasty Hip joint replacement by other means Spencer's palsy documented in this encounter Care Teams Secured Entrance Monitor Relationship Specialty Start Date End Date Dandre Baldwin DO [address] [facility] [place] [address] PCP - General Internal Medicine 03/13/22 documented as of this encounter
--- OUTSIDE RECORDS SUMMARY | 2023-11-19 21:48 | External Medical Summary | Summary of Care ---
Author Name Unknown Organization [facility] Address [address] [place] [address] Phone [phone] Care Team Providers Care Clinical Safety Specialist Name Role Phone Dandre Baldwin Primary Care Provider Reason for Visit * Reason Onset Date Comments [facility] Visit 11/18/2023 Encounter Details Date Type Department Care Team (Late st Contact Info) Description 11/18/2023 1:30 PM EST [facility] Visit [facility], [address] [place] [address] Yvette Boyd PA-C [address] [place] [place] [address] Acute cough* Allergies Active Allergy Reactions Criticality [...] Sign Reading Time Taken Comments Blood Pressure 139/88 11/18/2023 5:00 PM EST Pulse 108 11/18/2023 5:00 PM EST Temperature 36.5 C (97.7 F) 11/18/2023 5:00 PM ES T Respiratory Rate 20 11/18/2023 5:00 PM EST Oxygen Saturation 96% 11/18/2023 5:00 PM EST room air Inhaled Oxygen Concentration [...] Screening 05/18/2022 05/18/2021 COVID-19 Vaccine ( - season) 2023 08/19/2021, 12/26/2020, 12/05/2020 Influenza Vaccine (FLU shot) (#1) 2023 07/23/2022, 09/05/2021, 07/13/2020, Additional history exists DXA Scan 05/02/2024 05/02/2022, 04/07, 12/03/2018, Additional history exists Pneumococcal Vaccine: 65+ Years Completed 06/27/2015, 12/18/2011 Zoster Vaccines Completed 11/04/2019, 05/08, 10/19/2010 VITAMIN D LEVEL ONCE IN A LIFETIME-USE SMARTSET# [id number] Completed 05/31/2020, 11/25/2019, 08/06/2019, Additional history exists [...] Primary documented in this encounter Care Teams Clinical Safety Specialist Relationship Specialty Start Date End Date Dandre Baldwin DO [address] [facility] [address] PCP - General Internal Medicine 03/13/22 documented as of this encounter
--- OUTSIDE RECORDS SUMMARY | 2023-11-19 21:48 | External Medical Summary | Summary of Care ---
Author Name Unknown Organization [facility] Address [address] [place] [address] Phone [phone] Care Team Providers Care Exhaust Emissions Inspector Name Role Phone Dandre Baldwin Primary Care Provider Reason for Visit * Reason Onset Date Comments Longterm Visit 08/08/2023 Encounter Details Date Type Department Care Team (Late st Contact Info) Description 08/08/2023 10:00 AM EDT Longterm Visit [facility], [address] [place] [address] Yvette Boyd PA-C [address] [place] [address] [place] [address] Dermatitis* Allergies Active Allergy Reactions Criticality Noted Date Comments Bacitracin Itching 02/20/2018 Ezetimibe 09/19/2008 Shellfish Allergy 03/25/2023 Sulfa Antibiotics 12/24/2017 Tramadol Itching 12/24/2017 documented as of this encounter (statuses as of 08/08/2023) Medications Medication Sig Dispensed Refills Start Date [...] and 1 Capsule before bedtime. 0 Active documented as of this encounter (statuses as of 08/08/2023) Active Problems Problem Noted Date Diagnosed Date Closed avulsion fracture of greater trochanter of femur with routine healing, right 02/20/2022 S/p left hip fracture 02/20/2022 S/P hip hemiarthroplasty 02/20/2022 Slow transit constipation 02/20/2022 S/P right hip fracture 02/20/2022 SIADH (syndrome of inappropriate ADH production) 02/20/2022 Moderate episode of recurrent major depressive d isorder 01/04/2022 Senile dementia, uncomplicated 05/18/2021 Hyperparathyroidism, unspecified 10/19/2019 Spencer's palsy 10/19/2019 Senile osteoporosis 01/02/2019 Closed stable burst fracture of twelfth thoracic vertebra with routine healing 12/24/2017 Spondylolisthesis of lumbar region 12/24/2017 DDD (degenerative disc disease), lumbar 12/25/19 18 Spinal stenosis of lumbar re gion without neurogenic claudication 12/24/2017 HTN, goal below 150/90 documented as of this encounter (statuses as of 08/08/2023) Immunizations Name Administration Dates Next Due COVID-19 [...] oz pur e alcohol) occasional, very little Sex and Gender Information Value Date Recorded Sex Assigned at Female 09/25/2019 10:09 AM EST Gender Identity Female 09/25/2019 10:09 AM EST Sexual Orientation Straight 04/28/2023 12 :31 PM EDT Job Start Date Occupation Industry Not on file Not on file Not on file documented as of this encounter Last Filed Vital Signs Vital Sign Reading Time Taken Comments Blood Pressure 144/80 08/08/2023 12:28 PM EDT Pulse 71 08/08/2023 12:28 PM EDT Temperature 36.2 C (97.2 F) 08/08/2023 12:28 PM E DT Respiratory Rate 17 08/08/2023 12:28 PM EDT Oxygen Saturation 95% 08/08/2023 12:28 PM EDT room air Inhaled Oxygen Concentration - - [...] D LEVEL ONCE IN A LIFETIME-USE SMARTSET# [id number] Completed 05/31/2020, 11/25/2019, 08/06/2019, Additional history exists [...] cause documented in this encounter Care Teams Exhaust Emissions Inspector Relationship Specialty Start Date End Date Dandre Baldwin DO [address] [place] [address] PCP - General Internal Medicine 03/13/22 documented as of this encounter
--- OUTSIDE RECORDS SUMMARY | 2023-11-19 21:48 | External Medical Summary | Summary of Care ---
Author Name Unknown Organization [facility] Address [address] [place] [address] Phone [phone] Care Team Providers Care Offset Duplicating Machine Operator Name Role Phone Dandre Baldwin Primary Care Provider [phone] Reason for Visit * Reason Onset Date Comments Fax 10/05/2023 Encounter Details Date Type Department Care Team (Late st Contact Info) Description 10/05/2023 Telephone Family Medicine [address] [address] Ulices Miller MD [address] [place] [address] FLOYD Littlejohn [phone] Fax Allergies Active Allergy Reactions Criticality Noted [...] mRNA, LNP-s, No Pre serve, 2-Dose Series ([employer]) 08/19/2021,12/26/2020,12/05/2020 H1N1 2009 Influenza, IM 08/10/2009 Pneumococcal [...] back showing an infection. Please send to [facility]. Results of UA faxed to number provided. [...] - 10/05/2023 3:47 PM EST Meenakshi from [facility] called asking for results from recent UA [...] D LEVEL ONCE IN A LIFETIME-USE SMARTSET# [id number] Completed 05/31/2020, 11/25/2019, 08/06/2019, Additional history exists [...] filedocumented as of this encounter Care Teams Offset Duplicating Machine Operator Relationship Specialty Start Date End Date Dandre Baldwin DO [address] [place] [address] PCP - General Internal Medicine 03/13/22 documented as of this encounter
--- OUTSIDE RECORDS SUMMARY | 2023-11-19 21:48 | External Medical Summary | Summary of Care ---
Author Name Unknown Organization [facility] Address [address] [place] [address] Phone [phone] Care Team Providers Care Clerk Name Role Phone Dandre Baldwin Primary Care Provider Reason for Visit * Reason Comments Outpatient Testing Encounter Details Date Type Department Care Team (Late st Contact Info) Description 11/18/2023 4:30 PM EST Laboratory Laboratory [facility] [address] [place] [address] Pod3, Specimen Drop Off [facility] [address] [place] [address] Acute cough Allergies Active Allergy Reactions Criticality [...] D LEVEL ONCE IN A LIFETIME-USE SMARTSET# [id number] Completed 05/31/2020, 11/25/2019, 08/06/2019, Additional history exists [...] cough documented in this encounter Care Teams Clerk Relationship Specialty Start Date End Date Dandre Baldwin DO [address] [place] [address] PCP - General Internal Medicine 03/13/22 documented as of this encounter
--- OUTSIDE RECORDS SUMMARY | 2023-11-19 21:49 | External Medical Summary | Summary of Care ---
Author Name Unknown Organization [facility] Address [address] [place] [address] Phone [phone] Care Team Providers Care Document Review Attorney Name Role Phone Dandre Baldwin Primary Care Provider Reason for Visit * Reason Onset Date Comments Custodial Visit 06/18/2023 Encounter Details Date Type Department Care Team Description 06/18/2023 Custodial Visit [address] [place] [address] Yvette Boyd PA-C [address] [place] [address] [place] [address] Allergic contact dermatitis due to other agents* Allergies Active Allergy Reactions Severity Noted Date Comments Bacitracin Itching 02/20/2018 Ezetimibe 09/19/2008 Shellfish Allergy 03/25/2023 Sulfa Antibiotics 12/24/2017 Tramadol Itching 12/24/2017 documented as of this encounter (statuses as of 06/18/2023) Medications Medication Sig Dispensed Refills Start Date End Date Status Famotidine 20 MG Oral Tablet (Pepcid)Indicatio ns:History of fracture of right hip Take by mouth 1 Tablet in the morning AND 1 Tablet before bedtime. 180 Tablet 3 03/14/2022 Active Loratadine 10 MG Oral Tablet (Claritin) Take by mouth 1 Tablet in the morning. 90 Tablet 3 03/14/2022 Active Polyethylene Glycol 3350 17 GM/SCOOP Oral Powder (MiraLax)Indicati ons:Other constipation,Hist ory of fecal impaction Take by mouth 17 [...] by mouth in the morning. 0 Active Mirtazapine 15 MG Oral Tablet (Remeron) TAKE ONE TABLET BY MOUTH EVERY DAY AT BEDTIME 90 Tablet 5 07/04/2022 07/04/2023 Active Omeprazole 20 MG Oral Capsule Delayed Release (PriLOSEC) Take 1 Capsule by mouth in the morning and 1 Capsule before bedtime. 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 Never true 05/31/2020 Within the past 12 months, t he food you bought just didn't last and you didn't have money to get more. Never true 05/31/2020 Sex Assigned at Date Recorded Female 09/25/2019 10:09 AM EST Job Start Date Occupation Industry Not on [...] Progress Notes * Yvette Boyd PA-C - 06/18/2023 12:01 PM EDT Name: Analy Haq Date of : 1940 This note pertains to care provided at [facility]. Please see facility record for original note. This note is not to be edited or addended in [facility]. Editing or addending needs to occur in the facility's medical record. Chief Complaint Patient presents with Custodial Visit TRANSITION EVENT: Type: Non-applicable Date: June 18 Code Status: No Code SUBJECTIVE: Analy Haq is a 82 year old female HPI: recheck dermatitis of groin/buttocks/negrita area after several days of topical steroid. Pt seen by wound care MD today as well, case discussed with her (Dr. Mahsa Balderas MD) this AM also. Patient denies pain or itching in the area. 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, uncomplicated ([facility]) F03.90 Moderate episode of recurrent major depressive disorder ([facility]) F33.1 Closed avulsion fracture of greater trochanter of femur with routine healing, right S72.111D S/p left hip fracture Z87.81 S/P hip hemiarthroplasty Z96.649 Slow transit constipation K59.01 S/P right hip fracture Z87.81 SIADH (syndrome of inappropriate ADH production) ([facility]) E22.2 Review of patient's allergies indicates: Allergen Reactions Bacitracin Itching Ezetimibe Shellfish Allergy Sulfa Antibiotics Tramadol Itching Medications: Pt's current medication list is maintained at [facility] and was reviewed at this visit. Review of Systems: Per HPI, limited from pt due to dementia OBJECTIVE: General: alert and no distress Skin: pink, warm, dry, skin folds of bilateral groin pink and no longer raised/scaled/erythematous,bilateral buttocks somewhat macerated, pink/red with few small ulcerated areas ASSESSMENT/PLAN: [facility] chart (outside system) reviewed for vital signs, nursing notes, CODE STATUS, and most up to date medication list Discussed management with other clinician during the visit (wound care MD Mahsa Balderas from [facility] wound management) regarding current plan, discussed adjustment to topical treatments will be updated as noted below Allergic contact dermatitis due to other agents (Primary) Areas appear to be improved Leave brief off in bed - suspect contact dermatitis secondary to sensitivity to brief. Apparently, no sensitive briefs are currently available. Check and change often. Continue topical triamcinolone x full 7 days then may switch to hydrocortisone per wound care recommendation. Keep area as clean and dry of BM/urine as able. Follow up: as needed I spent a total of 18 minutes coordinating, documenting, and providing care for this patient excluding time spent in the performance of separately billed services or time spent by another provider/QHP. documented in this encounter Plan of Treatment Health Maintenance Due Date Last Done Comments Albumin/Creatinine Ratio 1958 COVID-19 Vaccine (4 - Pfizer risk series) 10/14/2021 08/19/2021, 12/26/2020, 12/05/2020 DTaP,Tdap,and Td Vaccines (2 - Td or Tdap) 10/15/2021 10/15/2011 Depression Screening 05/18/2022 05/18/2021 Influenza Vaccine (FLU shot) (#1) 2023 09/05/2021, 07/13/2020, 07/20/2019, Additional history exists GFR 03/29/2024 03/29/2023, 02/05, 02/19/2022, Additional history exists DXA Scan 05/02/2024 05/02/2022, 11/08, 10/15/2016 Pneumococcal Vaccine: 65+ Years Completed 06/27/2015, 12/18/2011 Zoster Vaccines Completed 11/04/2019, 05/08, 10/19/2010 VITAMIN D LEVEL ONCE IN A LIFETIME-USE SMARTSET# [id number] Completed 05/31/2020, 11/25/2019, 08/06/2019, Additional history exists [...] as of this encounter Visit Diagnoses Diagnosis Allergic contact dermatitis due to other agents- Primary documented in this encounter Care Teams Document Review Attorney Relationship Specialty Start Date End Date Dandre Baldwin DO [address] [facility] [address] PCP - General Internal Medicine 03/13/22 documented as of this encounter
--- OUTSIDE RECORDS SUMMARY | 2023-11-19 21:49 | External Medical Summary | Summary of Care ---
Author Name Unknown Organization [facility] Address [address] [place] [address] Phone [phone] Care Team Providers Care Chemicals Fermentation Operator Name Role Phone Miguel AngelDandre mckeon Primary Care Provider [phone] Reason for Visit * Reason Onset Date Comments Intermediate Visit 06/25/2023 Encounter Details Date Type Department Care Team Description 06/25/2023 Intermediate Visit [facility], [address] [place] [address] Yvette Boyd PA-C [address] [place] [address] [place] [address] Swelling of both lips* Allergies Active Allergy Reactions Severity Noted Date Comments Bacitracin Itching 02/20/2018 Ezetimibe 09/19/2008 Shellfish Allergy 03/25/2023 Sulfa Antibiotics 12/24/2017 Tramadol Itching 12/24/2017 documented as of this encounter (statuses as of 06/25/2023) Medications Medication Sig Dispensed Refills Start Date [...] as of this encounter (statuses as of 06/25/2023) Active Problems Problem Noted Date Closed avulsion [...] as of this encounter (statuses as of 06/25/2023) Immunizations Name Administration Dates Next Due COVID-19 [...] Pressure - - Pulse - - Temperature 36.2 C (97.1 F) 06/25/2023 1:28 PM ED T Respiratory Rate - - Oxygen Saturation 94% 06/25/2023 1:28 PM EDT room air Inhaled Oxygen Concentration [...] Progress Notes * Yvette Boyd PA-C - 06/25/2023 9:35 AM EDT Name: Analy Haq Date of : 1940 This note pertains to care provided at [facility]. Please see facility record for original note. This note is not to be edited or addended in [employer]. Editing or addending needs to occur in the facility's medical record. Chief Complaint Patient presents with Intermediate Visit TRANSITION EVENT: Type: Non-applicable Date: June 25 Code Status: No Code SUBJECTIVE: Analy Haq is a 82 year old female HPI: pt is seen at request of nursing staff - she was noted to have swelled and red lips early thisAM, apparently used a new type of lip balm that she had not used in the past. The lip balm has beenremoved from her room. She denies or itching in the mouth, just feels "strange". She denies sore throat, tongue pain, difficulty breathing, chest pain, dizziness, diaphoresis, nausea, vomiting, diarrhea. She does take a daily antihistamine for seasonal allergies, claritin 10 mg daily. 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 G51.0 Senile dementia, uncomplicated ([facility]) F03.90 Moderate episode of recurrent major depressive disorder ([facility]) F33.1 Closed avulsion fracture of greater trochanter of femur with routine healing, right S72.111D S/p left hip fracture Z87.81 S/P hip hemiarthroplasty Z96.649 Slow transit constipation K59.01 S/P right hip fracture Z87.81 SIADH (syndrome of inappropriate ADH production) ([facility]) E22.2 Review of patient's allergies indicates: Allergen Reactions Bacitracin Itching Ezetimibe Shellfish Allergy Sulfa Antibiotics Tramadol Itching Medications: Pt's current medication list is maintained at [facility] and was reviewed at this visit. Review of Systems: Per HPI OBJECTIVE: Temp 36.2 C (97.1 F) | SpO2 94% Comment: room air General: alert and no distress Oropharynx: no exudate, no erythema, buccal mucosa, and tongue normal, and mucous membranes are moist, upper and lower lips are slightly inflamed, erythematous around the [place] borders Heart: regular rate & rhythm Lungs: chest symmetric with normal AP diameter, no chest deformities noted, no chest wall tenderness, lungs clear to auscultation Abdomen: abdomen soft, non-tender, normal bowel sounds, no masses or organomegaly, and no rebound or guarding Skin: pin, warm, dry with no rash appreciated over the face, neck, arms, chest, abdomen, aside fromlips as noted above ASSESSMENT/PLAN: residential chart (outside system) reviewed for vital signs, nursing notes, CODE STATUS, and most up to date medication list Discussed management with other clinician during the visit (facility RN) Assessment required independent historian that was not the patient Swelling of both lips (Primary) Suspect a contact dermatitis secondary to topical product The product has been removed, would continue to avoid this in case of allergy to ingredients ([employer]) Recheck if worsening or not improving, or if new sxs develop Continue claritin 10 mg daily Follow up: as needed I spent a total of 33 minutes [...] D LEVEL ONCE IN A LIFETIME-USE SMARTSET# [id number] Completed 05/31/2020, 11/25/2019, 08/06/2019, Additional history exists [...] as of this encounter Visit Diagnoses Diagnosis Swelling of both lips- Primary documented in this encounter Care Teams Chemicals Fermentation Operator Relationship Specialty Start Date End Date Dandre Baldwin DO [address] [facility] [address] PCP - General Internal Medicine 03/13/22 documented as of this encounter
--- OUTSIDE RECORDS SUMMARY | 2023-11-19 21:49 | External Medical Summary | Summary of Care ---
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; HTN, goal below 150/90; Moderate episode of recurrent major depressive disorder (HCC); Spencer's palsy; History of fecal impaction; History of fracture of right hip; History of fracture of left hip; Generalized weakness; Need for assistance with personal care; Allergic contact dermatitis due to other agents Allergies Active Allergy Reactions Severity Noted Date Comments Bacitracin Itching 02/20/2018 Ezetimibe 09/19/2008 Shellfish Allergy 03/25/2023 Sulfa Antibiotics 12/24/2017 Tramadol Itching 12/24/2017 documented as of this encounter (statuses as of 06/13/2023) Medications Medication Sig Dispensed Refills Start Date [...] DAY AT BEDTIME 90 Tablet 5 07/04/2022 07/04/20 23 Active Omeprazole 20 MG Oral Capsule Delayed Release (PriLOSEC) Take 1 Capsule by mouth in the morning and 1 Capsule before bedtime. 0 Active Mirtazapine 15 MG Oral Tablet (Remeron)Indicati ons:Moderate episode of recurrent major depressive disorder (HCC),Adjustment disorder with anxious mood Take by mouth 1 Tablet before bedtime. 90 Tablet 3 03/14/2022 06/13/20 23 Discontinued Pantoprazole Sodium 40 MG Oral Tablet Delayed Release (Protonix)Indicat ions:History of fracture of right hip Take by mouth 1 Tablet 2 times a day with morning and evening meals . 30 minutes before the first meal of the day. Do not crush, split or chew the tablet 180 Tablet 3 03/14/2022 06/13/20 23 Discontinued Saccharomyces boulardii 250 MG Oral Capsule Take 1 Capsule by mouth in the morning. 0 06/13/20 23 Discontinued Silver sulfADIAZINE 1 % External Cream (Silvadene) APPLY TO AFFECTED AREA(S) TWO TIMES A DAY 400 g 3 02/07/2023 06/13/20 23 Discontinued Loratadine 10 MG Oral Tablet (Claritin) TAKE ONE TABLET BY MOUTH EVERY DAY 90 Tablet 5 07/04/2022 06/13/20 23 Discontinued Pantoprazole Sodium 40 MG Oral Tablet Delayed Release (Protonix) TAKE ONE TABLET BY MOUTH TWICE A DAY 180 Tablet 5 07/04/2022 06/13/20 23 Discontinued documented as of this encounter (statuses as of 06/13/2023) Active Problems Problem Noted Date Closed avulsion [...] as of this encounter (statuses as of 06/13/2023) Immunizations Name Administration Dates Next Due COVID-19 mRNA, LNP-s, No Pre serve, 2-Dose Series ([employer]) 08/19/2021,12/26/2020,12/05/2020 H1N1 2009 Influenza, IM 08/10/2009 Pneumococcal [...] Sign Reading Time Taken Comments Blood Pressure 142/79 06/13/2023 2:26 PM EDT Pulse 74 06/13/2023 2:26 PM EDT Temperature 36.4 C (97.6 F) 06/13/2023 2:26 PM ED T Respiratory Rate 18 06/13/2023 2:26 PM EDT Oxygen Saturation 95% 06/13/2023 2:26 PM EDT room air Inhaled Oxygen Concentration - - Weight 47.1 kg (103 lb 12.8 oz) 06/13/2023 2:26 PM EDT Height - - Body Mass Index 18.99 03/25/2023 4:06 PM EDT documented in this encounter Functional Status Functional [...] D LEVEL ONCE IN A LIFETIME-USE SMARTSET# [id number] Completed 05/31/2020, 11/25/2019, 08/06/2019, Additional history exists [...] dementia, uncomplicated (HCC)- Primary Senile dementia, 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 HTN, goal below 150/90 Moderate episode of recurrent major depressive disorder (HCC) Spencer's palsy History of fecal impaction Personal history of other diseases of digestive system History of fracture of right hip Personal history of traumatic fracture History of fracture of left hip Personal history of traumatic fracture Generalized weakness Other malaise and fatigue Need for assistance with personal care Unspecified problems related to lifestyle Allergic contact dermatitis due to other agents documented in this encounter Care Teams Quill Reamer Relationship Specialty Start Date End Date Dandre Baldwin, [address] [place] [address] PCP - General Internal Medicine 03/13/22 documented as of this encounter
--- OUTSIDE RECORDS SUMMARY | 2023-11-19 21:49 | External Medical Summary | Summary of Care ---
Author Name Unknown Organization [facility] Address [address] [place] [address] Phone [phone] Care Team Providers Care Roll Handler Name Role Phone Dandre Baldwin Primary Care Provider [phone] Reason for Visit * Reason Onset Date Comments Usp Visit 06/06/2023 Encounter Details Date Type Department Care Team Description 06/06/2023 Usp Visit [address] [place] [address] Yvette Boyd PA-C [address] [place] [address] [place] [address] Blepharitis of both upper and lower eyelid of left eye, unspecified type* Allergies Active Allergy Reactions Severity Noted Date Comments Bacitracin Itching 02/20/2018 Ezetimibe 09/19/2008 Shellfish Allergy 03/25/2023 Sulfa Antibiotics 12/24/2017 Tramadol Itching 12/24/2017 documented as of this encounter (statuses as of 06/06/2023) Medications Medication Sig Dispensed Refills Start Date End Date Status Famotidine 20 MG Oral Tablet (Pepcid)Indications :History of fracture of right hip Take by mouth 1 Tablet in the morning AND 1 Tablet before bedtime. 180 Tablet 3 03/14/2022 Active Loratadine 10 MG Oral Tablet (Claritin) Take by mouth 1 Tablet in the morning. 90 Tablet 3 03/14/2022 Active Mirtazapine 15 MG Oral Tablet (Remeron)Indication s:Moderate episode of recurrent major depressive disorder (HCC),Adjustment disorder with anxious mood Take by mouth 1 Tablet before bedtime. 90 Tablet 3 03/14/2022 Active Pantoprazole Sodium 40 MG Oral Tablet Delayed Release (Protonix)Indicatio ns:History of fracture of right hip Take by mouth 1 Tablet 2 times a day with morning and evening meals . 30 minutes before the first meal of the day. Do not crush, split or chew the tablet 180 Tablet 3 03/14/2022 Active Polyethylene Glycol 3350 17 GM/SCOOP Oral Powder (MiraLax)Indication s:Other constipation,Histor y of fecal impaction Take by mouth 17 g in the morning. Dissolve one heaping tablespoon in 8 ounces of water or juice.. 1734 g 3 03/14/2022 Active Additional Information Patient taking differently:17 g OralBID(AM/PM), Dissolve one heaping tablespoon in 8 ounces [...] Take 1 Tablet by mouth in the morning and 1 Tablet before bedtime. 0 Active Potassium Chloride Mimi ER 10 MEQ Oral Tablet Extended Release Take 1 Tablet by mouth in the morning. 0 Active Saccharomyces boulardii 250 MG Oral Capsule Take 1 Capsule by mouth in the morning. 0 Active Silver sulfADIAZINE 1 % External Cream (Silvadene) APPLY TO AFFECTED AREA(S) TWO TIMES A DAY 400 g 02/07/2023 02/07/2024 Active Loratadine 10 MG Oral Tablet (Claritin) TAKE ONE TABLET BY MOUTH EVERY DAY 90 Tablet 07/04/2022 07/04/2023 Active Pantoprazole Sodium 40 MG Oral Tablet Delayed Release (Protonix) TAKE ONE TABLET BY MOUTH TWICE A DAY 180 Tablet 07/04/2022 07/04/2023 Active Mirtazapine 15 MG Oral Tablet (Remeron) TAKE ONE TABLET BY MOUTH EVERY DAY AT BEDTIME 90 Tablet 5 07/04/2022 07/04/2023 Active documented as of this encounter (statuses as of 06/06/2023) Active Problems Problem Noted Date Closed avulsion [...] as of this encounter (statuses as of 06/06/2023) Immunizations Name Administration Dates Next Due COVID-19 mRNA, LNP-s, No Pre serve, 2-Dose Series (Actionality) 08/19/2021,12/26/2020,12/05/2020 H1N1 2009 Influenza, IM 08/10/2009 Pneumococcal [...] - - Temperature 36.4 C (97.5 F) 06/06/2023 11:32 AM E DT Respiratory Rate - - Oxygen Saturation 99% 06/06/2023 11:32 AM EDT room air Inhaled Oxygen Concentration - [...] Progress Notes * Yvette Boyd PA-C - 06/06/2023 10:00 AM EDT Name: Analy Haq Date of : 1940 This note pertains to care provided at [facility]. Please see facility record for original note. This note is not to be edited or addended in [employer]. Editing or addending needs to occur in the facility's medical record. Chief Complaint Patient presents with Usp Visit TRANSITION EVENT: Type: Non-applicable Date: June 06 Code Status: No Code SUBJECTIVE: Analy Haq is a 82 year old female HPI: Left eye noted to be red, swelled, draining x 1 days, she denies pain here, and also denies vision changes, however history is very limited due to dementia. 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 G51.0 Senile dementia, uncomplicated ([facility]) F03.90 Moderate episode of recurrent major depressive disorder ([facility]) F33.1 Closed avulsion fracture of greater trochanter of femur with routine healing, right S72.111D S/p left hip fracture Z87.81 S/P hip hemiarthroplasty Z96.649 Slow transit constipation K59.01 S/P right hip fracture Z87.81 SIADH (syndrome of inappropriate ADH production) ([facility]) E22.2 Review of patient's allergies indicates: Allergen Reactions Bacitracin Itching Ezetimibe Shellfish Allergy Sulfa Antibiotics Tramadol Itching Medications: Pt's current medication list is maintained at [facility] and was reviewed at this visit. Review of Systems: Per HPI OBJECTIVE: Temp 36.4 C (97.5 F) | SpO2 99% Comment: room air General: alert and no distress Eye Exam: PERRLA, extraocular movements intact, sclera clear, left upper and lower lids pink, mildly edematous, and there is clear drainage. ASSESSMENT/PLAN: halfway chart (outside system) reviewed for vital signs, nursing notes, CODE STATUS, and most up to date medication list Discussed management with other clinician during the visit (BICYCLE REPAIRER) Blepharitis of both upper and lower eyelid of left eye, unspecified type (Primary) Warm compress left eye 3x daily for 20 minutes x 7 days Follow up: if worsening or not improving I spent a total of 16 minutes coordinating, documenting, and providing care for [...] - Td or Tdap) 10/15/2021 10/15/2011 Depression Screening, Annual for Pts 12 and Over 05/18/2022 05/18/2021 Influenza Vaccine (FLU shot) (#1) 2023 09/05/2021, 07/13/2020, 07/20/2019, Additional history exists GFR 03/29/2024 03/29/2023, 02/05, 02/19/2022, Additional history exists DXA Scan 05/02/2024 05/02/2022, 11/08, 10/15/2016 Pneumococcal Vaccine: 65+ Years Completed 06/27/2015, 12/18/2011 Zoster Vaccines Completed 11/04/2019, 05/08, 10/19/2010 VITAMIN D LEVEL ONCE IN A LIFETIME-USE SMARTSET# [id number] Completed 05/31/2020, 11/25/2019, 08/06/2019, Additional history exists [...] as of this encounter Visit Diagnoses Diagnosis Blepharitis of both upper and lower eyelid of left eye, unspecified type- Primary documented in this encounter Care Teams Roll Handler Relationship Specialty Start Date End Date Dandre Baldwin, [address] [place] [address] PCP - General Internal Medicine 03/13/22 documented as of this encounter"
--- OUTSIDE RECORDS SUMMARY | 2023-11-19 21:49 | External Medical Summary | Summary of Care ---
Author Name Unknown Organization [facility] Address [address] [place] [address] Phone [phone] Care Team Providers Care [facility] Office Supervisor Name Role Phone Dandre Baldwin Primary Care Provider Reason for Visit * Reason Onset Date Comments Fdc Visit 07/25/2023 Encounter Details Date Type Department Care Team Description 07/25/2023 Fdc Visit [facility], [address] [place] [address] Yvette Boyd PA-C [address] [place] [address] [place] [address] Perianal dermatitis* Allergies Active Allergy Reactions Severity Noted Date Comments Bacitracin Itching 02/20/2018 Ezetimibe 09/19/2008 Shellfish Allergy 03/25/2023 Sulfa Antibiotics 12/24/2017 Tramadol Itching 12/24/2017 documented as of this encounter (statuses as of 07/25/2023) Medications Medication Sig Dispensed Refills Start Date [...] as of this encounter (statuses as of 07/25/2023) Active Problems Problem Noted Date Closed avulsion [...] as of this encounter (statuses as of 07/25/2023) Immunizations Name Administration Dates Next Due COVID-19 [...] - Pulse - - Temperature 36.2 C (97.2 F) 07/25/2023 12:24 PM E DT Respiratory Rate - - Oxygen Saturation 95% 07/25/2023 12:24 PM EDT room air Inhaled Oxygen Concentration [...] 10/15/2011 Depression Screening 05/18/2022 05/18/2021 COVID-19 Vaccine (2022- season) 2023 08/19/2021, 12/26/2020, 12/05/2020 Influenza Vaccine (FLU shot) (#1) 2023 09/05/2021, 07/13/2020, 07/20/2019, Additional history exists GFR 03/29/2024 03/29/2023, 02/05, 02/19/2022, Additional history exists DXA Scan 05/02/2024 05/02/2022, 11/08, 10/15/2016 Pneumococcal Vaccine: 65+ Years Completed 06/27/2015, 12/18/2011 Zoster Vaccines Completed 11/04/2019, 05/08, 10/19/2010 VITAMIN D LEVEL ONCE IN A LIFETIME-USE SMARTSET# [id number] Completed 05/31/2020, 11/25/2019, 08/06/2019, Additional history exists [...] as of this encounter Visit Diagnoses Diagnosis Perianal dermatitis- Primary Contact dermatitis and other eczema, due to unspecified cause documented in this encounter Care Teams [facility] Office Supervisor Relationship Specialty Start Date End Date Dandre Baldwin, [address] [place] [address] PCP - General Internal Medicine 03/13/22 documented as of this encounter
--- OUTSIDE RECORDS SUMMARY | 2023-11-19 21:49 | External Medical Summary | Summary of Care ---
Author Name Unknown Organization [facility] Address [address] [place] [address] Phone [phone] Care Team Providers Care Staff Nurse Icu Resource Team Name Role Phone Dandre Baldwin Primary Care Provider Reason for Visit * Reason Onset Date Comments Correction Visit 07/02/2023 Encounter Details Date Type Department Care Team Description 07/02/2023 Correction Visit [facility], [place] [address] [place] [address] Yvette Boyd PA-C [address] [place] [address] Eye drainage*; Spencer's palsy Allergies Active Allergy Reactions Severity Noted Date Comments Bacitracin Itching 02/20/2018 Ezetimibe 09/19/2008 Shellfish Allergy 03/25/2023 Sulfa Antibiotics 12/24/2017 Tramadol Itching 12/24/2017 documented as of this encounter (statuses as of 07/02/2023) Medications Medication Sig Dispensed Refills Start Date [...] as of this encounter (statuses as of 07/02/2023) Active Problems Problem Noted Date Closed avulsion [...] as of this encounter (statuses as of 07/02/2023) Immunizations Name Administration Dates Next Due COVID-19 [...] Progress Notes * Yvette Boyd PA-C - 07/02/2023 3:56 PM EDT Name: Analy Haq Date of : 1940 This note pertains to care provided at [facility]. Please see facility record for original note. This note is not to be edited or addended in [employer]. Editing or addending needs to occur in the facility's medical record. Chief Complaint Patient presents with Correction Visit TRANSITION EVENT: Type: Non-applicable Date: July 02 Code Status: No Code SUBJECTIVE: Analy Haq is a 82 year old female HPI: nursing staff requested evaluation of left eye drainage and redness, off and on for several days, she denies pain ehre. 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 She denies eye pain or vision loss, itching or other irritation of the eye. 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 ([facility]) F33.1 Closed avulsion fracture of greater trochanter of femur with routine healing, right S72.111D S/p left hip fracture Z87.81 S/P hip hemiarthroplasty Z96.649 Slow transit constipation K59.01 S/P right hip fracture Z87.81 SIADH (syndrome of inappropriate ADH production) ([facility]) E22.2 Review of patient's allergies indicates: Allergen Reactions Bacitracin Itching Ezetimibe Shellfish Allergy Sulfa Antibiotics Tramadol Itching Medications: Pt's current medication list is maintained at [facility] and was reviewed at this visit. Review of Systems: Per HPI OBJECTIVE: General: alert, no distress, and left facial weakness/droop Eye Exam: extraocular movements intact, conjunctiva are pink and non-injected, sclera clear, there is mild edema of the left upper and lower lids, without erythema. There is mild crusting of the leftlashes. 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 Cleanse lashes with baby shampoo daily to remove crusting Artificial tears 2 drops 3x daily to left eye Follow up: as needed I spent a total of 20 minutes coordinating, documenting, and providing care for [...] D LEVEL ONCE IN A LIFETIME-USE SMARTSET# [id number] Completed 05/31/2020, 11/25/2019, 08/06/2019, Additional history exists [...] as of this encounter Visit Diagnoses Diagnosis Eye drainage- Primary Redness or discharge of eye Spencer's palsy documented in this encounter Care Teams Staff Nurse Icu Resource Team Relationship Specialty Start Date End Date Dandre Baldwin DO [address] [place] [address] PCP - General Internal Medicine 03/13/22 documented as of this encounter
--- NOTE | 2023-11-19 21:53 | Emergency Department Note ---
Impression & Plan Acute left-sided weakness, Dementia, H/O Spencer's palsy ED Provider Note NAME: JEFFREY WHITT AGE: 83 SEX: F : 1940 ARRIVES VIA: Ambulance INFORMANT: Patient, ED PROVIDER(S): Gustavo Rodriguez MD CHIEF COMPLAINT: Stroke alert MEDICAL DECISION MAKING: Patient presents as a stroke alert due to concern for left-sided strokelike symptoms last known well 530. Stroke alert initiated. CT head without obvious ICH. I did speak with Dr. Lopez with telemedicine radiology I do not note any large vessel occlusion or change on Noncon CT head but did notice right-sided ICA stenosis of 50%. It has been with Dr. Goldsmith, telestroke neurology. Stated that given that the patient is outside of the window would not require TNK but did consider admission and discuss aspirin and statin medication for stroke prevention. He also stated that sometimes somebody could have an unwitnessed seizure and the patient could have strokelike symptoms thereafter. I did speak with the patient's daughter who is comfortable with current plan of care. Patient is not currently on hospice. Blood work shows a normal white count virtually normal hemoglobin was slightly low at 11.9 with a normal platelet count. The patient's kidney function is unremarkable. Hyponatremic at 134. COVID-negative. I subsequently did speak with Dr. Jose inpatient medicine service. Critical Care: I have personally spent 35 minutes of critical care time in direct management of this patient. This includes bedside care, interpretation of diagnostic studies, and testing, discussion with consultants, patient, and family members, and other require inpatient management activities. This 35 minutes is in excess of all separately billable procedures. Discussion w/ other healthcare providers: Dr. Lopez telemedicine radiology Dr. Lafleur telestroke neurology Dr. Jose inpatient medicine service Prior /Outside records reviewed: Reviewed a discharge summary from March 22, 2023. 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 Patient was admitted at that time Differential diagnosis: Infection, dehydration, metabolic abnormality, hypo/hyperglycemia, electrolyte imbalance, anemia, UTI, pneumonia, thyroid dysfunction among others were considered. Diagnostics, as interpreted by me: ECG: Normal sinus rhythm, rate of 89, normal intervals, normal axis no ST elevations, nonspecific ST abnormality noted. T wave version in lead III and aVF but not in lead II. No significant change for comparison March 15, 2023 Cardiac monitoring: An order was placed for continuous cardiac monitoring. The monitor shows a rate of 85 with sinus rhythm. Patient was placed on pulse oximetry Medical decision rules: None Imaging studies: I informally interpreted the patient's CT head which does not show obvious ICH with formal report to follow. HPI: Patient presents from care facility due to concern for change in mentation and left-sided weakness. History is limited EMS reports that last known well is 5:30 PM. Patient does have a history of a Spencer's palsy BSG was not significantly high or low but they were concerned about left-sided weakness facial droop and slurred speech. Per review of the medical records patient does have a prior history of a rectovaginal fistula having seen by palliative care. There had been discussions about hospice. Patient's daughter did arrive and states that patient's left-sided facial droop is chronic. PAST MEDICAL HISTORY: See Below PAST SURGICAL HISTORY: See Below SOCIAL HISTORY: See Below HOME MEDICATIONS: See Below ALLERGIES: See Below VITALS: See Below PHYSICAL EXAMINATION: GENERAL: NAD, non-toxic. EYE EXAM: Normal conjunctiva. PERRL, no anisocoria and EOM's grossly intact w/o pain. OROPHARYNX: Moist mucus membranes, grossly normal dentition. NECK: Trachea midline, no stridor. Supple, no nuchal rigidity, no adenopathy, non-tender. No signs of meningismus. FROM of the neck with good chin to chest and neck extension. LUNGS: Clear to auscultation. Normal chest wall mechanics. HEART: NSR, no MRG. ABDOMEN: Abdomen soft, non-tender, no masses, no rebound or guarding. BACK: No CVA TTP. SKIN: No rashes and no bruising. UPPER EXTREMITIES: Upper extremities are grossly normal. LOWER EXTREMITIES: Grossly normal, no edema. NEURO EXAM: Awake and alert follows basic commands, oriented to person and birthday but not to place or time, cranial nerves II through XII intact with exception of dense left-sided facial palsy without forehead sparing, lower extremity distally compared to right, 4-5 strength in the left upper extremity. 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 Beliefs That Will Affect Care: None marital status: Current Living Situation: Personal Care Facility How many Children do You have: 2 Feels Safe at Home: Yes Assistive Devices: Walker and Wheelchair Allergies Allergies Allergy/AdvReac Type Severity Reaction Status Date / Time ezetimibe [From Zetia] Allergy Unknown [facility] Verified 11/19/23 21:59 [facility] shellfish derived Allergy Unknown [facility] Verified 11/19/23 21:59 [facility] Sulfa (Sulfonamide Allergy Unknown ON [facility] Verified 11/19/23 21:59 Antibiotics) [facility] sulfamethoxazole Allergy Unknown ON [facility] Verified 11/19/23 21:59 [From Bactrim] [facility]IST tramadol Allergy Unknown ON [facility] Verified 11/19/23 21:59 [facility] LIST trimethoprim [From Bactrim] Allergy Unknown ON [facility] Verified 11/19/23 21:59 [facility] MED LIST [facility] Allergy Unknown ON [facility] Uncoded 11/19/23 21:59 [facility] Home Meds Home Medications Medication Instructions Recorded Confirmed loratadine 10 mg tablet (Claritin) 10 mg PO QAM 12/25/21 11/19/23 mirtazapine 15 mg tablet 7.5 mg PO HS 03/15/23 11/19/23 sertraline 25 mg tablet 25 mg PO DAILY 03/15/23 11/19/23 acetaminophen 325 mg tablet 650 mg PO Q4H PRN PAIN/FEVER>100 11/19/23 11/19/23 (Tylenol) carboxymethylcellulose sodium 1 % 2 drp OPL TID 11/19/23 11/19/23 eye drops (Artificial Tears (carboxymethylcellulose)) docusate sodium 100 mg capsule 100 mg PO QAM 11/19/23 11/19/23 guaifenesin 100 mg/5 mL oral liquid 200 mg PO Q4H PRN Cough 11/19/23 11/19/23 hydrocortisone 1 % topical cream 1 applic topical BID PRN SKIN 11/19/23 11/19/23 IRRITATION ON BUTTOCKS omeprazole 20 mg capsule,delayed 20 mg PO DAILY 11/19/23 11/19/23 release potassium chloride 10 mEq 10 meq PO DAILY 11/19/23 11/19/23 tablet,extended release(part/cryst) Previous Rx's Medication Instructions Recorded famotidine 20 mg tablet 20 mg PO BID #14 tabs 02/15/22 polyethylene glycol 3350 17 gram 17 g PO BID #14 ea 02/15/22 oral powder packet (Miralax) Results & Data (ED) Vital Signs Vital Signs - 24 hr 11/19/23 22:00 11/19/23 22:00 11/19/23 22:12 Temperature 36.6 C Temperature Source Oral Pulse Rate 86 87 Pulse Rate from SpO2 Sensor 87 Respiratory Rate 12 20 Respiratory Effort / Characteristics Non-Labored Spontaneous Respiratory Depth Normal Blood Pressure 172/93 H 172/93 H Blood Pressure Mean 119 119 Blood Pressure Position Semi-fowlers Pulse Oximetry 96 96 96 Oxygen Delivery Method Room Air Room Air Sepsis Recent Fever Within 48 Hours No Sepsis New/Unexplained Change in Mental Status N/A Sepsis Action Taken by Nursing No Action Required 11/19/23 22:13 11/19/23 22:15 11/19/23 22:16 Temperature Temperature Source Pulse Rate 82 82 83 Pulse Rate from SpO2 Sensor 82 83 84 Respiratory Rate 18 16 14 Respiratory Effort / Characteristics Respiratory Depth Blood Pressure 160/90 H Blood Pressure Mean 113 Blood Pressure Position Pulse Oximetry 96 96 96 Oxygen Delivery Method Sepsis Recent Fever Within 48 Hours Sepsis New/Unexplained Change in Mental Status Sepsis Action Taken by Nursing 11/19/23 22:16 11/19/23 22:23 11/19/23 22:23 Temperature Temperature Source Pulse Rate 83 Pulse Rate from SpO2 Sensor 84 Respiratory Rate 22 Respiratory Effort / Characteristics Respiratory Depth Blood Pressure 164/100 H 181/92 H Blood Pressure Mean 133 129 Blood Pressure Position Pulse Oximetry 96 Oxygen Delivery Method Sepsis Recent Fever Within 48 Hours Sepsis New/Unexplained Change in Mental Status Sepsis Action Taken by Nursing 11/19/23 22:30 11/19/23 22:45 11/19/23 22:50 Temperature Temperature Source Pulse Rate 83 83 81 Pulse Rate from SpO2 Sensor 83 82 81 Respiratory Rate 15 15 15 Respiratory Effort / Characteristics Respiratory Depth Blood Pressure Blood Pressure Mean Blood Pressure Position Pulse Oximetry 97 95 96 Oxygen Delivery Method Sepsis Recent Fever Within 48 Hours Sepsis New/Unexplained Change in Mental Status Sepsis Action Taken by Nursing 11/19/23 22:50 11/19/23 23:00 11/19/23 23:00 Temperature Temperature Source Pulse Rate 85 Pulse Rate from SpO2 Sensor 84 Respiratory Rate 19 Respiratory Effort / Characteristics Respiratory Depth Blood Pressure 123/91 151/87 H Blood Pressure Mean 105 134 Blood Pressure Position Pulse Oximetry 93 Oxygen Delivery Method Sepsis Recent Fever Within 48 Hours Sepsis New/Unexplained Change in Mental Status Sepsis Action Taken by Nursing 11/19/23 23:15 11/19/23 23:30 11/19/23 23:45 Temperature Temperature Source Pulse Rate 80 81 82 Pulse Rate from SpO2 Sensor Respiratory Rate 12 12 14 Respiratory Effort / Characteristics Respiratory Depth Blood Pressure Blood Pressure Mean Blood Pressure Position Pulse Oximetry Oxygen Delivery Method Sepsis Recent Fever Within 48 Hours Sepsis New/Unexplained Change in Mental Status Sepsis Action Taken by Care Home Medications Current Medication List: was personally reviewed by me Laboratory Data Attestation: I reviewed the patient's lab results. 11/19/23 22:04 11/19/23 23:02 Lab Results 11/19/23 11/19/23 11/19/23 Range/Units 21:56 22:04 23:02 WBC 8.24 (4.8-10.8) K/ul RBC 4.47 (4.20-5.40) M/uL Hgb 11.9 L (12.0-16.0) g/dl Hct 37.4 (37.0-47.0) % MCV 83.7 (80.0-100.0) fL MCH 26.6 (25.0-34.0) pg MCHC 31.8 L (32.0-36.0) g/dL RDW Std Deviation 40.2 (36.4-46.3) fL RDW Coeff of Tyesha 13.2 (11.5-14.5) % Plt Count 237 (130-400) K/uL MPV 9.4 (9.4-12.4) fL Immature Gran % (Auto) 0.5 % Neut % (Auto) 53.5 % Lymph % (Auto) 29.5 % [place] % (Auto) 10.6 % Eos % (Auto) 5.3 % Baso % (Auto) 0.6 % Neut # (Auto) 4.41 (1.40-6.50) K/uL Lymph # (Auto) 2.43 (1.20-3.40) K/uL [place] # (Auto) 0.87 H (0.11-0.59) K/uL Eos # (Auto) 0.44 (0.00-0.50) K/uL Baso # (Auto) 0.05 (0.00-0.20) K/uL Immature Gran # (Auto) 0.04 (0.01-0.20) K/uL PT Cancelled 10.9 INR Cancelled 1.0 APTT Cancelled 25 PTT Ratio Cancelled 0.9 Sodium TNP 134 L Potassium TNP 4.1 Chloride 102 (98-107) mmol/L Carbon Dioxide 24 (21-32) mmol/L Anion Gap TNP BUN 20 (6-23) mg/dl Creatinine 0.68 (0.6-1.2) mg/dl Est Cr Clr Drug Dosing 51.8 ml/min Est GFR ( Amer) 92.4 ml/min Est GFR (Non-Af Amer) 79.8 ml/min BUN/Creatinine Ratio 29.4 H (10-20) Glucose 101 H (70-99(Fasting)) mg/dl POC Glucose 93 (70-99) mg/dl Calcium 9.3 (8.6-10.3) mg/dl Magnesium TNP 2.1 Total Bilirubin 0.4 (0.2-1.0) mg/dl AST TNP 11 L ALT 3 L (7-52) U/L Alkaline Phosphatase 92 (34-104) U/L Troponin I High Sens 2.8 (0-14) pg/ml Total Protein 6.5 (6.0-8.3) gm/dl Albumin 3.1 L (3.4-5.0) gm/dl Globulin 3.4 (2.5-4.0) gm/dl Albumin/Globulin Ratio 0.9 (0.9-2) SARS-CoV-2, RNA, NAAT (NEGATIVE) 11/19/23 Range/Units 23:57 WBC (4.8-10.8) K/ul RBC (4.20-5.40) M/uL Hgb (12.0-16.0) g/dl Hct (37.0-47.0) % MCV (80.0-100.0) fL MCH (25.0-34.0) pg MCHC (32.0-36.0) g/dL RDW Std Deviation (36.4-46.3) fL RDW Coeff of Tyesha (11.5-14.5) % Plt Count (130-400) K/uL MPV (9.4-12.4) fL Immature Gran % (Auto) % Neut % (Auto) % Lymph % (Auto) % [place] % (Auto) % Eos % (Auto) % Baso % (Auto) % Neut # (Auto) (1.40-6.50) K/uL Lymph # (Auto) (1.20-3.40) K/uL [place] # (Auto) (0.11-0.59) K/uL Eos # (Auto) (0.00-0.50) K/uL Baso # (Auto) (0.00-0.20) K/uL Immature Gran # (Auto) (0.01-0.20) K/uL PT INR APTT PTT Ratio Sodium Potassium Chloride (98-107) mmol/L Carbon Dioxide (21-32) mmol/L Anion Gap BUN (6-23) mg/dl Creatinine (0.6-1.2) mg/dl Est Cr Clr Drug Dosing ml/min Est GFR ( Amer) ml/min Est GFR (Non-Af Amer) ml/min BUN/Creatinine Ratio (10-20) Glucose (70-99(Fasting)) mg/dl POC Glucose (70-99) mg/dl Calcium (8.6-10.3) mg/dl Magnesium Total Bilirubin (0.2-1.0) mg/dl AST ALT (7-52) U/L Alkaline Phosphatase (34-104) U/L Troponin I High Sens (0-14) pg/ml Total Protein (6.0-8.3) gm/dl Albumin (3.4-5.0) gm/dl Globulin (2.5-4.0) gm/dl Albumin/Globulin Ratio (0.9-2) SARS-CoV-2, RNA, NAAT NEGATIVE (NEGATIVE) Administered Medications Discontinued Medications Aspirin (Aspirin 81 Mg Chew) 324 mg PO NOW STA Stop: 11/20/23 00:06 Last Admin: 11/20/23 00:27 Dose: 324 mg Documented By: MARITO Ioversol (Optiray 320 125ml) 118 ml IV ONCE ONE Stop: 11/19/23 22:13 Last Admin: 11/19/23 22:17 Dose: Not Given Documented By: Ioversol (Optiray 320 125ml) 118 ml IV ONCE ONE Stop: 11/19/23 22:14 Last Admin: 11/19/23 22:13 Dose: 118 ml Documented By: DOLORES Imaging Data Radiologist's Impression: Head CT 11/19/23 21:42 CR Exam(s): CT HEAD Without Contrast EXAM: CT Head Without Intravenous Contrast CLINICAL HISTORY: Reason for exam: neuro deficit, acute stroke suspected. TECHNIQUE: Axial computed tomography images of the head/brain without intravenous contrast. CTDI is 37.01 mGy and DLP is 546.36 mGy-cm. Automated exposure control was utilized for the study. A dose lowering technique was utilized adhering to the principles of ALARA. COMPARISON: March 15, 2023 FINDINGS: Brain: Moderate atrophy and periventricular white matter low density consistent with chronic small vessel disease and/or senescent changes, similar to previous. No acute large vessel infarct or intracranial hemorrhage is identified. Ventricles: Unremarkable. No ventriculomegaly. Bones/joints: Unremarkable. No acute fracture. Soft tissues: Unremarkable. Sinuses: Unremarkable as visualized. No acute sinusitis. Mastoid air cells: Unremarkable as visualized. No mastoid effusion. IMPRESSION: Moderate atrophy and periventricular white matter low density consistent with chronic small vessel disease and/or senescent changes, similar to previous. No acute large vessel infarct or intracranial hemorrhage is identified. Communications: Call Doctor Stroke Electronically signed by: Luis Lopez MD 11/19/23 22:05 PM Head CTA 11/19/23 21:42 CR Exam(s): CTA HEAD With Contrast IV Amt: 118 ml optiray 320 EXAM: CT Angiography Head With Intravenous Contrast CLINICAL HISTORY: Reason for exam: neuro deficit, acute stroke suspected. TECHNIQUE: Axial computed tomographic angiography images of the head with intravenous contrast. CTDI is 16.61 mGy and DLP is 8.3 mGy-cm. Automated exposure control was utilized for the study. A dose lowering technique was utilized adhering to the principles of ALARA. MIP reconstructed images were created and reviewed. CONTRAST: Patient received 118 ml optiray 320 of IV contrast COMPARISON: No relevant prior studies available. FINDINGS: Right internal carotid artery: Mild calcified plaque in the distal right internal carotid artery with less than 20% stenosis. No aneurysm. Right anterior cerebral artery: Unremarkable. No occlusion or significant stenosis. No aneurysm. Right middle cerebral artery: Unremarkable. No occlusion or significant stenosis. No aneurysm. Right posterior cerebral artery: Unremarkable. No occlusion or significant stenosis. No aneurysm. Right vertebral artery: Unremarkable as visualized. Left internal carotid artery: Mild calcified plaque in the distal left internal carotid artery with less than 20% stenosis. No aneurysm. Left anterior cerebral artery: Unremarkable. No occlusion or significant stenosis. No aneurysm. Left middle cerebral artery: Unremarkable. No occlusion or significant stenosis. No aneurysm. Left posterior cerebral artery: Unremarkable. No occlusion or significant stenosis. No aneurysm. Normal anatomic variant of origin of the left posterior cerebral artery from the anterior circulation. Left vertebral artery: The distal left vertebral artery is small but patent. This is a normal variant. Basilar artery: Unremarkable. No occlusion or significant stenosis. No aneurysm. IMPRESSION: No acute findings in the arteries of the head/brain. Communications: Call Doctor Stroke Electronically signed by: Luis Lopez MD 11/19/23 22:12 PM Neck CTA 11/19/23 21:42 CR Exam(s): CTA NECK With Contrast IV Amt: 118 ml optiray 320 EXAM: CT Angiography Neck With Intravenous Contrast CLINICAL HISTORY: Reason for exam: neuro deficit, acute stroke suspected. TECHNIQUE: Routine carotid CT angiography protocol was performed with intravenous contrast. NASCET criteria using the distal ICAs for comparison were used for evaluation of stenoses. CTDI is 11.28 mGy and DLP is 375.5 mGy-cm. Automated exposure control was utilized for the study. A dose lowering technique was utilized adhering to the principles of ALARA. MIP reconstructed images were created and reviewed. CONTRAST: Patient received 118 ml optiray 320 of IV contrast COMPARISON: None. FINDINGS: VASCULATURE: Right common carotid artery: The right common carotid artery is tortuous but widely patent. No occlusion or significant stenosis. No dissection. Right internal carotid artery: Calcified plaque in the proximal right internal carotid artery causing 50% stenosis. No dissection. Right external carotid artery: Unremarkable. No occlusion. Right vertebral artery: Unremarkable. No occlusion or significant stenosis. No dissection. Left common carotid artery: Unremarkable. No occlusion or significant stenosis. No dissection. Left internal carotid artery: 30% stenosis of the proximal left internal carotid artery. No dissection. Left external carotid artery: Unremarkable. No occlusion. Left vertebral artery: Unremarkable. No occlusion or significant stenosis. No dissection. Aorta: The left vertebral artery is smaller than the right and arises directly from the aortic arch. No focal stenosis or dissection. NECK: Bones/joints: Mild multilevel degenerative changes throughout the cervical spine. No acute fracture or subluxation is seen. Soft tissues: Unremarkable. Lung apices: Clear. CAROTID STENOSIS REFERENCE USING NASCET CRITERIA: % ICA stenosis = (1 - narrowest ICA diameter/diameter of distal cervical ICA) x 100. Mild - <50% stenosis. Moderate - 50-69% stenosis. Severe - 70-94% stenosis. Near occlusion - 95-99% stenosis. Occluded - 100% stenosis. IMPRESSION: Calcified plaque in the proximal right internal carotid artery causing 50% stenosis. There is 30% stenosis of the proximal left internal carotid artery. Communications: Call Doctor Stroke Electronically signed by: Luis Lopez MD 11/19/23 22:08 PM Discharge Plan Visit Data Chief Complaint: Stroke Alert ED Provider: Gustavo Rodriguez Discharge Problem: Acute left-sided weakness, Dementia, H/O Spencer's palsy Patient Disposition: Admitted As Inpatient Discharge Instructions Interventions: ED Discharge Assessment Last Done: 11/20/23 01:36 Discharge Problem: Dementia Qualifiers: Dementia type: unspecified type Dementia severity: unspecified severity
--- NOTE | 2023-11-19 22:06 | CT Scan Report ---
Exam(s): CT HEAD Without Contrast EXAM: CT Head Without Intravenous Contrast CLINICAL HISTORY: Reason for exam: neuro deficit, acute stroke suspected. TECHNIQUE: Axial computed tomography images of the head/brain without intravenous contrast. CTDI is 37.01 mGy and DLP is 546.36 mGy-cm. Automated exposure control was utilized for the study. A dose lowering technique was utilized adhering to the principles of ALARA. COMPARISON: March 15, 2023 FINDINGS: Brain: Moderate atrophy and periventricular white matter low density consistent with chronic small vessel disease and/or senescent changes, similar to previous. No acute large vessel infarct or intracranial hemorrhage is identified. Ventricles: Unremarkable. No ventriculomegaly. Bones/joints: Unremarkable. No acute fracture. Soft tissues: Unremarkable. Sinuses: Unremarkable as visualized. No acute sinusitis. Mastoid air cells: Unremarkable as visualized. No mastoid effusion. IMPRESSION: Moderate atrophy and periventricular white matter low density consistent with chronic small vessel disease and/or senescent changes, similar to previous. No acute large vessel infarct or intracranial hemorrhage is identified. Communications: Call Doctor Stroke Electronically signed by: Luis Lopez MD 11/19/23 22:05 PM
--- NOTE | 2023-11-19 22:09 | CT Scan Report ---
Exam(s): CTA NECK With Contrast IV Amt: 118 ml optiray 320 EXAM: CT Angiography Neck With Intravenous Contrast CLINICAL HISTORY: Reason for exam: neuro deficit, acute stroke suspected. TECHNIQUE: Routine carotid CT angiography protocol was performed with intravenous contrast. NASCET criteria using the distal ICAs for comparison were used for evaluation of stenoses. CTDI is 11.28 mGy and DLP is 375.5 mGy-cm. Automated exposure control was utilized for the study. A dose lowering technique was utilized adhering to the principles of ALARA. MIP reconstructed images were created and reviewed. CONTRAST: Patient received 118 ml optiray 320 of IV contrast COMPARISON: None. FINDINGS: VASCULATURE: Right common carotid artery: The right common carotid artery is tortuous but widely patent. No occlusion or significant stenosis. No dissection. Right internal carotid artery: Calcified plaque in the proximal right internal carotid artery causing 50% stenosis. No dissection. Right external carotid artery: Unremarkable. No occlusion. Right vertebral artery: Unremarkable. No occlusion or significant stenosis. No dissection. Left common carotid artery: Unremarkable. No occlusion or significant stenosis. No dissection. Left internal carotid artery: 30% stenosis of the proximal left internal carotid artery. No dissection. Left external carotid artery: Unremarkable. No occlusion. Left vertebral artery: Unremarkable. No occlusion or significant stenosis. No dissection. Aorta: The left vertebral artery is smaller than the right and arises directly from the aortic arch. No focal stenosis or dissection. NECK: Bones/joints: Mild multilevel degenerative changes throughout the cervical spine. No acute fracture or subluxation is seen. Soft tissues: Unremarkable. Lung apices: Clear. CAROTID STENOSIS REFERENCE USING NASCET CRITERIA: % ICA stenosis = (1 - narrowest ICA diameter/diameter of distal cervical ICA) x 100. Mild - <50% stenosis. Moderate - 50-69% stenosis. Severe - 70-94% stenosis. Near occlusion - 95-99% stenosis. Occluded - 100% stenosis. IMPRESSION: Calcified plaque in the proximal right internal carotid artery causing 50% stenosis. There is 30% stenosis of the proximal left internal carotid artery. Communications: Call Doctor Stroke Electronically signed by: Luis Lopez MD 11/19/23 22:08 PM
--- NOTE | 2023-11-19 22:12 | CT Scan Report ---
Exam(s): CTA HEAD With Contrast IV Amt: 118 ml optiray 320 EXAM: CT Angiography Head With Intravenous Contrast CLINICAL HISTORY: Reason for exam: neuro deficit, acute stroke suspected. TECHNIQUE: Axial computed tomographic angiography images of the head with intravenous contrast. CTDI is 16.61 mGy and DLP is 8.3 mGy-cm. Automated exposure control was utilized for the study. A dose lowering technique was utilized adhering to the principles of ALARA. MIP reconstructed images were created and reviewed. CONTRAST: Patient received 118 ml optiray 320 of IV contrast COMPARISON: No relevant prior studies available. FINDINGS: Right internal carotid artery: Mild calcified plaque in the distal right internal carotid artery with less than 20% stenosis. No aneurysm. Right anterior cerebral artery: Unremarkable. No occlusion or significant stenosis. No aneurysm. Right middle cerebral artery: Unremarkable. No occlusion or significant stenosis. No aneurysm. Right posterior cerebral artery: Unremarkable. No occlusion or significant stenosis. No aneurysm. Right vertebral artery: Unremarkable as visualized. Left internal carotid artery: Mild calcified plaque in the distal left internal carotid artery with less than 20% stenosis. No aneurysm. Left anterior cerebral artery: Unremarkable. No occlusion or significant stenosis. No aneurysm. Left middle cerebral artery: Unremarkable. No occlusion or significant stenosis. No aneurysm. Left posterior cerebral artery: Unremarkable. No occlusion or significant stenosis. No aneurysm. Normal anatomic variant of origin of the left posterior cerebral artery from the anterior circulation. Left vertebral artery: The distal left vertebral artery is small but patent. This is a normal variant. Basilar artery: Unremarkable. No occlusion or significant stenosis. No aneurysm. IMPRESSION: No acute findings in the arteries of the head/brain. Communications: Call Doctor Stroke Electronically signed by: Luis Lopez MD 11/19/23 22:12 PM
[2023-11-19] MEDS: OPTIRAY 320 125ml IV ONE ×2 (22:13→22:17)
[2023-11-19 22:15] LABS: Basophils # (auto) 0.05 K/uL (0.00-0.20); Basophils % (auto) 0.6 %; Eosinophils # (auto) 0.44 K/uL (0.00-0.50); Eosinophils % (auto) 5.3 %; Hematocrit (blood only) 37.4 % (37.0-47.0); Hemoglobin 11.9 g/dl (12.0-16.0); Immature Granulocytes # (auto) 0.04 K/uL (0.01-0.20); Immature Granulocytes % (auto) 0.5 %; Lymphocytes # (auto) 2.43 K/uL (1.20-3.40); Lymphocytes % (auto) 29.5 %; Mean Corpuscular Hemoglobin 26.6 pg (25.0-34.0); Mean Corpuscular Hgb Conc 31.8 g/dL (32.0-36.0); Mean Corpuscular Volume 83.7 fL (80.0-100.0); Mean Platelet Volume 9.4 fL (9.4-12.4); Monocytes # (auto) 0.87 K/uL (0.11-0.59); Monocytes % (auto) 10.6 %; Neutrophils # (auto) 4.41 K/uL (1.40-6.50); Neutrophils % (auto) 53.5 %; Platelet Count 237 K/uL (130-400); RDW Coefficient of Variation 13.2 % (11.5-14.5); RDW Standard Deviation 40.2 fL (36.4-46.3); Red Blood Count 4.47 M/uL (4.20-5.40); White Blood Count 8.24 K/ul (4.8-10.8)
[2023-11-19 22:44] LABS: Alanine Aminotransferase 3 U/L (7-52); Albumin Globulin Ratio 0.9 (0.9-2); Albumin Level 3.1 gm/dl (3.4-5.0); Alkaline Phosphatase 92 U/L (34-104); BUN Creatinine Ratio 29.4 (10-20); Bilirubin,Total 0.4 mg/dl (0.2-1.0); Blood Urea Nitrogen 20 mg/dl (6-23); Calcium 9.3 mg/dl (8.6-10.3); Carbon Dioxide 24 mmol/L (21-32); Chloride 102 mmol/L (98-107); Creatinine Clr Calc Pharmacy 51.8 ml/min; Est GFR (African American) 92.4 ml/min; Est GFR (Non-African American) 79.8 ml/min; Globulin 3.4 gm/dl (2.5-4.0); Glucose 101 mg/dl (70-99(Fasting)); Total Protein 6.5 gm/dl (6.0-8.3); Troponin I High Sensitivity 2.8 pg/ml (0-14)
[2023-11-19 23:36] LABS: Magnesium 2.1 mg/dl (1.7-2.4); Potassium 4.1 mmol/L (3.5-5.1)
[2023-11-19 23:53] LABS: Partial Thromboplastin Ratio 0.9; Partial Thromboplastin Time 25 Seconds (21-31); Prothrombin Time 10.9 Seconds (9.0-12.0)
--- NOTE | 2023-11-19 23:57 | History & Physical Report ---
Date of Service November 19, 2023 Assessment & Plan (1) Left-sided weakness: Plan: Probable CVA Right MCA distribution hypertension, elevated secondary to above, patient not on maintenance medications Carotid artery disease on imaging breast cancer left status post surgery SIADH as per records primary hyperparathyroidism, conservative management as per outpatient [facility] Endocrinology note GERD on PPI chronic anemia, hemoglobin at baseline history of Spencre's palsy mood disorder, stable dementia OBS Medical telemetry Neurochecks Permissive hypertension for now Aspirin and statin Rx for secondary stroke prevention MRI brain,, TTE for stroke workup Neurology consult Re: CVA Vascular surgery consult contingent on MRI results Delirium precautions DVT prophylaxis per Lovenox subcu DNR as per patient's prior directives as per daughter. Patient family requesting updates providers. Mr. Kp Haq (son), contact #[phone] Ms. Jo-Ann Rose (daughter), contact #[phone]. Text document was generated using [employer] voice recognition software. It may contain grammatical or spelling errors. Kindly contact undersigned for clarification of any documentation item in question. History of Present Illness Chief Complaint: I do not know as per patient Possible stroke as per family Primary Care Provider: Trinity dickerson Mcguffey Dr. Miller History obtained from patient, family, and records. Limited history from patient secondary to dementia. Medical history significant for hypertension, breast cancer left status post surgery, SIADH as per records, primary hyperparathyroidism, GERD, chronic back pain, chronic anemia (baseline hemoglobin 11), history of Spencer's palsy, mood disorder, dementia. 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 Around 5:30 PM today, patient noted to have slurred speech and left-sided weakness. 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 No previous episodes as per daughter. Stroke alert called upon arrival at the ER. Thrombolytic therapy not recommended by [facility] neurologist. Aspirin and statin Rx recommended. Patient denies headache, chest pain, SOB, abdominal pain symptoms. Does not know why she is in the hospital. 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 Allergies Allergy/AdvReac Type Severity Reaction Status Date / Time ezetimibe [From Zetia] Allergy Unknown ON JUNIPER Verified 11/19/23 21:59 [facility] shellfish derived [facility] 11/19/23 21:59 [facility] Sulfa (Sulfonamide Allergy Unknown ON JUNIPER Verified 11/19/23 21:59 Antibiotics) [facility] sulfamethoxazole Allergy Unknown ON JUNIPER Verified 11/19/23 21:59 [From Bactrim] [facility] tramadol [facility] Verified 11/19/23 21:59 [facility] trimethoprim [From Bactrim] Allergy Unknown ON JUN[facility] Verified 11/19/23 21:59 [facility] Allergy Unknown ON [facility] Uncoded 11/19/23 21:59 [facility] Home Medications Medication Instructions Recorded Confirmed Type loratadine 10 mg tablet (Claritin) 10 mg PO QAM 12/25/21 11/19/23 History famotidine 20 mg tablet 20 mg PO BID #14 tabs 02/15/22 11/19/23 Rx polyethylene glycol 3350 17 gram 17 g PO BID #14 ea 02/15/22 11/19/23 Rx oral powder packet (Miralax) mirtazapine 15 mg tablet 7.5 mg PO HS 03/15/23 11/19/23 History sertraline 25 mg tablet 25 mg PO DAILY 03/15/23 11/19/23 History acetaminophen 325 mg tablet 650 mg PO Q4H PRN PAIN/FEVER>100 11/19/23 11/19/23 History (Tylenol) carboxymethylcellulose sodium 1 % 2 drp OPL TID 11/19/23 11/19/23 History eye drops (Artificial Tears (carboxymethylcellulose)) docusate sodium 100 mg capsule 100 mg PO QAM 11/19/23 11/19/23 History guaifenesin 100 mg/5 mL oral liquid 200 mg PO Q4H PRN Cough 11/19/23 11/19/23 History hydrocortisone 1 % topical cream 1 applic topical BID PRN SKIN 11/19/23 11/19/23 History IRRITATION ON BUTTOCKS omeprazole 20 mg capsule,delayed 20 mg PO DAILY 11/19/23 11/19/23 History release potassium chloride 10 mEq 10 meq PO DAILY 11/19/23 11/19/23 History tablet,extended release(part/cryst) Past Med/Surg History Medical History Spencer's palsy Closed right hip fracture Dementia DVT prophylaxis Fall History of breast cancer HTN (hypertension) Hyperparathyroidism Lumbar spinal stenosis Osteoporosis Pre-diabetes S/p left hip fracture SIADH (syndrome of inappropriate ADH production) Surgical History History of partial mastectomy hx of dcis Status post hip hemiarthroplasty Right Family History Mother Alzheimer disease Father Heart disease Social History Smoking Status: Never smoker Preferred Language: Greenlandic Communication Ability: Effective Workers Compensation Claims Specialist Required: No Beliefs That Will Affect Care: None marital status: Current Living Situation: Personal Care Facility How many Children do You have: 2 Feels Safe at Home: Yes Assistive Devices: Walker and Wheelchair Review of Systems Review of Systems: Could not be reliably obtained secondary to dementia Physical Exam Physical Exam: GENERAL: Demented, pleasant, no respiratory distress SKIN: Normal color, warm HEENT: [place] palpebral conjunctivae, chronic ptosis left, left facial droop, dry buccal mucosa NECK : Supple, no tenderness CHEST : CTA, no tenderness HEART : RRR, no obvious murmurs ABDOMEN: no distention, nontender EXTREMITIES : No LE swelling/tenderness, no other conspicuous deformities noted NEUROLOGIC : Demented, left facial asymmetry, mild dysarthria, MMTs RUE/RLE 4/5, LUE/LLE 3/5, gait and stance not assessed Results & Data Results & Data Vital Signs (Past 12 Hours) Vital Signs Temp Pulse Resp BP Pulse Ox O2 Del Method 11/19/23 22:13 82 18 160/90 H 96 11/19/23 22:12 96 Room Air 11/19/23 22:00 87 20 172/93 H 96 11/19/23 22:00 36.6 C 86 12 172/93 H 96 Room Air Laboratory Results Laboratory Results WBC 8.24 K/ul (4.8-10.8) 11/19/23 22:04 RBC 4.47 M/uL (4.20-5.40) 11/19/23 22:04 Hgb 11.9 g/dl (12.0-16.0) L 11/19/23 22:04 Hct 37.4 % (37.0-47.0) 11/19/23 22:04 MCV 83.7 fL (80.0-100.0) 11/19/23 22:04 MCH 26.6 pg (25.0-34.0) 11/19/23 22:04 MCHC 31.8 g/dL (32.0-36.0) L 11/19/23 22:04 RDW Std Deviation 40.2 fL (36.4-46.3) 11/19/23 22:04 RDW Coeff of Tyesha 13.2 % (11.5-14.5) 11/19/23 22:04 Plt Count 237 K/uL (130-400) 11/19/23 22:04 MPV 9.4 fL (9.4-12.4) 11/19/23 22:04 Immature Gran % (Auto) 0.5 % 11/19/23 22:04 Neut % (Auto) 53.5 % 11/19/23 22:04 Lymph % (Auto) 29.5 % 11/19/23 22:04 [place] % (Auto) 10.6 % 11/19/23 22:04 Eos % (Auto) 5.3 % 11/19/23 22:04 Baso % (Auto) 0.6 % 11/19/23 22:04 Neut # (Auto) 4.41 K/uL (1.40-6.50) 11/19/23 22:04 Lymph # (Auto) 2.43 K/uL (1.20-3.40) 11/19/23 22:04 [place] # (Auto) 0.87 K/uL (0.11-0.59) H 11/19/23 22:04 Eos # (Auto) 0.44 K/uL (0.00-0.50) 11/19/23 22:04 Baso # (Auto) 0.05 K/uL (0.00-0.20) 11/19/23 22:04 Immature Gran # (Auto) 0.04 K/uL (0.01-0.20) 11/19/23 22:04 PT 10.9 Seconds (9.0-12.0) 11/19/23 23:02 INR 1.0 (0.9-1.1) 11/19/23 23:02 APTT 25 Seconds (21-31) 11/19/23 23:02 PTT Ratio 0.9 11/19/23 23:02 Sodium 134 mmol/L (136-145) L 11/19/23 23:02 Potassium 4.1 mmol/L (3.5-5.1) 11/19/23 23:02 Chloride 102 mmol/L (98-107) 11/19/23 22:04 Carbon Dioxide 24 mmol/L (21-32) 11/19/23 22:04 Anion Gap TNP 11/19/23 22:04 BUN 20 mg/dl (6-23) 11/19/23 22:04 Creatinine 0.68 mg/dl (0.6-1.2) 11/19/23 22:04 Est Cr Clr Drug Dosing 51.8 ml/min 11/19/23 22:04 Est GFR ( Amer) 92.4 ml/min 11/19/23 22:04 Est GFR (Non-Af Amer) 79.8 ml/min 11/19/23 22:04 BUN/Creatinine Ratio 29.4 (10-20) H 11/19/23 22:04 Glucose 101 mg/dl (70-99(Fasting)) H 11/19/23 22:04 POC Glucose 93 mg/dl (70-99) 11/19/23 21:56 Calcium 9.3 mg/dl (8.6-10.3) 11/19/23 22:04 Magnesium 2.1 mg/dl (1.7-2.4) 11/19/23 23:02 Total Bilirubin 0.4 mg/dl (0.2-1.0) 11/19/23 22:04 AST 11 U/L (13-39) L 11/19/23 23:02 ALT 3 U/L (7-52) L 11/19/23 22:04 Alkaline Phosphatase 92 U/L (34-104) 11/19/23 22:04 Troponin I High Sens 2.8 pg/ml (0-14) 11/19/23 22:04 Total Protein 6.5 gm/dl (6.0-8.3) 11/19/23 22:04 Albumin 3.1 gm/dl (3.4-5.0) L 11/19/23 22:04 Globulin 3.4 gm/dl (2.5-4.0) 11/19/23 22:04 Albumin/Globulin Ratio 0.9 (0.9-2) 11/19/23 22:[address] 11/19/23 21:42 CR Exam(s): CT HEAD Without Contrast EXAM: CT Head Without Intravenous Contrast CLINICAL HISTORY: Reason for exam: neuro deficit, acute stroke suspected. TECHNIQUE: Axial computed tomography images of the head/brain without intravenous contrast. CTDI is 37.01 mGy and DLP is 546.36 mGy-cm. Automated exposure control was utilized for the study. A dose lowering technique was utilized adhering to the principles of ALARA. COMPARISON: March 15, 2023 FINDINGS: Brain: Moderate atrophy and periventricular white matter low density consistent with chronic small vessel disease and/or senescent changes, similar to previous. No acute large vessel infarct or intracranial hemorrhage is identified. Ventricles: Unremarkable. No ventriculomegaly. Bones/joints: Unremarkable. No acute fracture. Soft tissues: Unremarkable. Sinuses: Unremarkable as visualized. No acute sinusitis. Mastoid air cells: Unremarkable as visualized. No mastoid effusion. IMPRESSION: Moderate atrophy and periventricular white matter low density consistent with chronic small vessel disease and/or senescent changes, similar to previous. No acute large vessel infarct or intracranial hemorrhage is identified. Communications: Call Doctor Stroke Electronically signed by: Luis Lopez MD 11/19/23 22:05 PM Head CTA 11/19/23 21:42 CR Exam(s): CTA HEAD With Contrast IV Amt: 118 ml optiray 320 EXAM: CT Angiography Head With Intravenous Contrast CLINICAL HISTORY: Reason for exam: neuro deficit, acute stroke suspected. TECHNIQUE: Axial computed tomographic angiography images of the head with intravenous contrast. CTDI is 16.61 mGy and DLP is 8.3 mGy-cm. Automated exposure control was utilized for the study. A dose lowering technique was utilized adhering to the principles of ALARA. MIP reconstructed images were created and reviewed. CONTRAST: Patient received 118 ml optiray 320 of IV contrast COMPARISON: No relevant prior studies available. FINDINGS: Right internal carotid artery: Mild calcified plaque in the distal right internal carotid artery with less than 20% stenosis. No aneurysm. Right anterior cerebral artery: Unremarkable. No occlusion or significant stenosis. No aneurysm. Right middle cerebral artery: Unremarkable. No occlusion or significant stenosis. No aneurysm. Right posterior cerebral artery: Unremarkable. No occlusion or significant stenosis. No aneurysm. Right vertebral artery: Unremarkable as visualized. Left internal carotid artery: Mild calcified plaque in the distal left internal carotid artery with less than 20% stenosis. No aneurysm. Left anterior cerebral artery: Unremarkable. No occlusion or significant stenosis. No aneurysm. Left middle cerebral artery: Unremarkable. No occlusion or significant stenosis. No aneurysm. Left posterior cerebral artery: Unremarkable. No occlusion or significant stenosis. No aneurysm. Normal anatomic variant of origin of the left posterior cerebral artery from the anterior circulation. Left vertebral artery: The distal left vertebral artery is small but patent. This is a normal variant. Basilar artery: Unremarkable. No occlusion or significant stenosis. No aneurysm. IMPRESSION: No acute findings in the arteries of the head/brain. Communications: Call Doctor Stroke Electronically signed by: Luis Lopez MD 11/19/23 22:12 PM Neck CTA 11/19/23 21:42 CR Exam(s): CTA NECK With Contrast IV Amt: 118 ml optiray 320 EXAM: CT Angiography Neck With Intravenous Contrast CLINICAL HISTORY: Reason for exam: neuro deficit, acute stroke suspected. TECHNIQUE: Routine carotid CT angiography protocol was performed with intravenous contrast. NASCET criteria using the distal ICAs for comparison were used for evaluation of stenoses. CTDI is 11.28 mGy and DLP is 375.5 mGy-cm. Automated exposure control was utilized for the study. A dose lowering technique was utilized adhering to the principles of ALARA. MIP reconstructed images were created and reviewed. CONTRAST: Patient received 118 ml optiray 320 of IV contrast COMPARISON: None. FINDINGS: VASCULATURE: Right common carotid artery: The right common carotid artery is tortuous but widely patent. No occlusion or significant stenosis. No dissection. Right internal carotid artery: Calcified plaque in the proximal right internal carotid artery causing 50% stenosis. No dissection. Right external carotid artery: Unremarkable. No occlusion. Right vertebral artery: Unremarkable. No occlusion or significant stenosis. No dissection. Left common carotid artery: Unremarkable. No occlusion or significant stenosis. No dissection. Left internal carotid artery: 30% stenosis of the proximal left internal carotid artery. No dissection. Left external carotid artery: Unremarkable. No occlusion. Left vertebral artery: Unremarkable. No occlusion or significant stenosis. No dissection. Aorta: The left vertebral artery is smaller than the right and arises directly from the aortic arch. No focal stenosis or dissection. NECK: Bones/joints: Mild multilevel degenerative changes throughout the cervical spine. No acute fracture or subluxation is seen. Soft tissues: Unremarkable. Lung apices: Clear. CAROTID STENOSIS REFERENCE USING NASCET CRITERIA: % ICA stenosis = (1 - narrowest ICA diameter/diameter of distal cervical ICA) x 100. Mild - <50% stenosis. Moderate - 50-69% stenosis. Severe - 70-94% stenosis. Near occlusion - 95-99% stenosis. Occluded - 100% stenosis. IMPRESSION: Calcified plaque in the proximal right internal carotid artery causing 50% stenosis. There is 30% stenosis of the proximal left internal carotid artery. Communications: Call Doctor Stroke Electronically signed by: Luis Lopez MD 11/19/23 22:08 PM Diagnostic Findings EKG as per my interpretation : Rate 90, NSR, normal axis, T wave abnormalities inferior leads
[2023-11-20] MEDS ORDERED: PROMETHAZINE 6.25 MG/50.25 ML BAG IV PRN (00:10)
[2023-11-20] MEDS: ASPIRIN 81 MG CHEW PO STA (00:27)
[2023-11-20] MEDS ORDERED: PHARMACIST DISCHARGE MED REC CONSULT PRN ×2 (01:35)
--- NOTE | 2023-11-20 01:38 | Magnetic Resonance Report ---
Exam(s): MRI HEAD Without Contrast EXAM: MR Head Without Intravenous Contrast CLINICAL HISTORY: Reason for exam: cva. TECHNIQUE: Magnetic resonance images of the head/brain without intravenous contrast in multiple planes. COMPARISON: November 19, 2023 CT head FINDINGS: Artifacts: Mild motion artifact. Brain: There is an oval 2 x 1 x 1 cm focus of diffusion restriction and T2 hyperintensity in the right internal capsule and right frontal lobe deep white matter consistent with acute small vessel infarct. Moderate diffuse cerebral atrophy, similar to previous. Periventricular white matter T2 hyperintensity consistent with chronic small vessel disease. No other acute infarcts or hemorrhage identified. Ventricles: Mildly prominent. No mass or hemorrhage. Bones/joints: Unremarkable. No acute fracture. Sinuses: Unremarkable as visualized. No acute sinusitis. Mastoid air cells: Unremarkable as visualized. No mastoid effusion. Orbits: Unremarkable as visualized. IMPRESSION: 1. There is an oval 2 x 1 x 1 cm focus of diffusion restriction and T2 hyperintensity in the right internal capsule and right frontal lobe deep white matter consistent with acute small vessel infarct. 2. Moderate diffuse cerebral atrophy, similar to previous. Periventricular white matter T2 hyperintensity consistent with chronic small vessel disease. No other acute infarcts or hemorrhage identified. Communications: Call Doctor Stroke Electronically signed by: Luis Lopez MD 11/20/23 01:37 AM
[2023-11-20] MEDS: SODIUM CHLORIDE 0.9% 1,000 ML IV ONE (02:15)
[2023-11-20 04:29] LABS: BUN Creatinine Ratio 24.1 (10-20); Calcium 10.1 mg/dl (8.6-10.3); Chol HDL Ratio 4.1 (0-5); Creatinine Clr Calc Pharmacy 44.6 ml/min; Est GFR (African American) 79.1 ml/min; Est GFR (Non-African American) 68.3 ml/min
[2023-11-20 04:31] LABS: Basophils # (auto) 0.07 K/uL (0.00-0.20); Basophils % (auto) 0.8 %; Eosinophils # (auto) 0.54 K/uL (0.00-0.50); Eosinophils % (auto) 6.1 %; Hematocrit (blood only) 40.7 % (37.0-47.0); Hemoglobin 12.5 g/dl (12.0-16.0); Immature Granulocytes # (auto) 0.04 K/uL (0.01-0.20); Immature Granulocytes % (auto) 0.5 %; Lymphocytes # (auto) 2.51 K/uL (1.20-3.40); Lymphocytes % (auto) 28.6 %; Mean Corpuscular Hemoglobin 26.3 pg (25.0-34.0); Mean Corpuscular Hgb Conc 30.7 g/dL (32.0-36.0); Mean Corpuscular Volume 85.5 fL (80.0-100.0); Mean Platelet Volume 9.5 fL (9.4-12.4); Monocytes # (auto) 1.02 K/uL (0.11-0.59); Monocytes % (auto) 11.6 %; Neutrophils # (auto) 4.61 K/uL (1.40-6.50); Neutrophils % (auto) 52.4 %; Platelet Count 297 K/uL (130-400); RDW Coefficient of Variation 13.2 % (11.5-14.5); RDW Standard Deviation 41.3 fL (36.4-46.3); Red Blood Count 4.76 M/uL (4.20-5.40); White Blood Count 8.79 K/ul (4.8-10.8)
[2023-11-20 07:38] LABS: Estimated Average Glucose 120 mg/dl; Hemoglobin A1C 5.8 % (4.5-5.6)
[2023-11-20] MEDS: ARTIFICIAL TEARS OPL SCH (07:52)
[2023-11-20] MEDS: ENOXAPARIN INJ 30 MG/0.3 ML SYR SQ SCH (07:52)
[2023-11-20] MEDS: ASPIRIN 81 MG ECTAB PO SCH (07:53)
[2023-11-20] MEDS: LORATADINE 10 MG TAB PO SCH (07:53)
[2023-11-20] MEDS: PANTOprazole 40 MG TAB PO SCH (07:53)
[2023-11-20] MEDS: POLYETHYLENE (MIRALAX) 17 GM PACK PO SCH (07:53)
[2023-11-20] MEDS: ATORVASTATIN 40 MG TAB PO SCH (07:53)
[2023-11-20] MEDS: SERTRALINE HCL 50 MG TABLET PO SCH (07:53)
[2023-11-20] MEDS: DOCUSATE SODIUM 100 MG CAP PO SCH (07:53)
[2023-11-20] MEDS: FAMOTIDINE 20 MG TAB PO SCH (07:53)
--- NOTE | 2023-11-20 10:15 | XRay Report ---
XR chest 1V portable HISTORY: Aspiration. Assess for pneumonia. COMPARISON: Chest 03/15/2023. FINDINGS: No pneumothorax. No pleural effusions. There is chronic elevation of the right hemidiaphrag m with bibasilar linear densities suggesting subsegmental atelectasis or scarring. Otherwise, no new focal lung consolidations to suggest a pneumonia. No evidence for pulmonary edema. Mild chronic inter stitial thickening persists. There are surgical clips within the right upper quadrant and left breast . Moderate hiatus hernia is noted. The heart is mildly enlarged. IMPRESSION: No significant change compared to the prior study. No acute process. ACT 112: Negative or not required by law. Electronically signed by: Young Monge M.D. 11/20/2023 10:14 AM
--- NOTE | 2023-11-20 11:17 | Neurology Consultation ---
Date of Consultation November 20, 2023 Assessment & Plan (1) Stroke: Acute right hemispheric ischemic stroke-small vessel-etiology likely HTN Echocardiogram as part of complete stroke workup Continue frequent neurological assessments Obtain stat CT brain without contrast for any acute neurological decline Continue to monitor/control blood pressure & blood glucose Metabolic workup should include hgbA1c, fasting lipids, homocysteine, TSH, D Dimer Recommend DAPT for at least 3 weeks Recommend continue high dose statin therapy indefinitely if tolerated Ok from neurology perspective for VTE prophylaxis PT/OT/SLT to eval and treat Telehealth Consultation Telehealth Information Telehealth Information: I performed this visit using a real-time telehealth connection between my location and the patients location ([facility]). After connecting through interactive tele-video, patient was identified by name and date of and/or wristband check.Patient (or authorized healthcare represe ntative) was informed that this was a telemedicine visit and it was being conducted confidentially over secure lines. My office door was closed and no one else was present in the room with me.Patient (or authorized healthcare lead generation representative) provided consent to proceed with the visit, expressed an understanding of privacy and security of the telemedicine visit, and gave permission to have a hospital lead generation representative in the room in order to assist with the visit and to conduct portions of the visit, as needed. I informed the patient (or authorized healthcare lead generation representative) that I reviewed their record and presented the opportunity for them to ask any questions regarding the visit today. The patient agreed to participate. History of Present Illness Reason for Consultation: Stroke Requesting Physician: Dr. Gaffney Attending Physician: Chai Gaffney MD History of Present Illness 83yo female with significant past medical history including breast CA Prichard palsy dementia arrived hypertensive with reported new onset left hemiparesis and right gaze preference. Was not considered an IV thrombolytic candidate due to timing of onset of symptoms. Has undergone CTA head & neck revealing bilateral calcified ICA stenosis. MRI brain confirms right subcortical/frontal lobe area of restricted diffusion consistent with acute small vessel ischemic stroke likely hypertensive etiology. Performed televideo consultation. Appreciate patient appearing in no apparent distress or discomfort. Left hemiparesis persists however per RN at bedside weakness is improving. She is able to answer most questions, name objects repeat phrases and follow commands to the best of her physical ability. Allergies Allergy/AdvReac Type Severity Reaction Status Date / Time ezetimibe [From Zetia] Allergy Unknown ON JUNIPER Verified 11/19/23 21:59 [facility] shellfish derived Allergy Unknown ON JUNIPER Verified 11/19/23 21:59 [facility] Sulfa (Sulfonamide Allergy Unknown ON JUNIPER Verified 11/19/23 21:59 Antibiotics) [facility] sulfamethoxazole Allergy Unknown ON JUNIPER Verified 11/19/23 21:59 [From Bactrim] [facility] tramadol Allergy Unknown ON JUNIPER Verified 11/19/23 21:59 [facility] trimethoprim [From Bactrim] Allergy Unknown ON JUNIPER Verified 11/19/23 21:59 [facility] Allergy Unknown ON JUNIPER Uncoded 11/19/23 21:59 [facility] Home Medications Medication Instructions Recorded Confirmed Type loratadine 10 mg tablet (Claritin) 10 mg PO QAM 12/25/21 11/19/23 History famotidine 20 mg tablet 20 mg PO BID #14 tabs 02/15/22 11/19/23 Rx polyethylene glycol 3350 17 gram 17 g PO BID #14 ea 02/15/22 11/19/23 Rx oral powder packet (Miralax) mirtazapine 15 mg tablet 7.5 mg PO HS 03/15/23 11/19/23 History sertraline 25 mg tablet 25 mg PO DAILY 03/15/23 11/19/23 History acetaminophen 325 mg tablet 650 mg PO Q4H PRN PAIN/FEVER>100 11/19/23 11/19/23 History (Tylenol) carboxymethylcellulose sodium 1 % 2 drp OPL TID 11/19/23 11/19/23 History eye drops (Artificial Tears (carboxymethylcellulose)) docusate sodium 100 mg capsule 100 mg PO QAM 11/19/23 11/19/23 History guaifenesin 100 mg/5 mL oral liquid 200 mg PO Q4H PRN Cough 11/19/23 11/19/23 History hydrocortisone 1 % topical cream 1 applic topical BID PRN SKIN 11/19/23 11/19/23 History IRRITATION ON BUTTOCKS omeprazole 20 mg capsule,delayed 20 mg PO DAILY 11/19/23 11/19/23 History release potassium chloride 10 mEq 10 meq PO DAILY 11/19/23 11/19/23 History tablet,extended release(part/cryst) Patient History Medical History S/p left hip fracture SIADH (syndrome of inappropriate ADH production) Fall DVT prophylaxis History of breast cancer Hyperparathyroidism Lumbar spinal stenosis Pre-diabetes Dementia Spencer's palsy Osteoporosis HTN (hypertension) Closed right hip fracture Surgical History Status post hip hemiarthroplasty Right History of partial mastectomy hx of dcis Family History Mother Alzheimer disease Father Heart disease Social History Smoking Status: Unknown if ever smoked Hx Alcohol Use: No Hx Substance Use: No Preferred Language: Maltese Communication Ability: Effective Lamp Shade Maker Required: No Beliefs That Will Affect Care: None marital status: Current Living Situation: Personal Care Facility How many Children do You have: 2 Feels Safe at Home: Yes Assistive Devices: Walker and Wheelchair Physical Exam Neurological Examination: Mental Status: Awake and alert to self and most of situation. Cannot tell me current day/date/month/holiday or president ceo & founder Fluency naming repetition and comprehension appear grossly intact. Affect pleasant/appropriate. CN testing: I: Difficult to reliably assess II:Reports no changes in visual acuity III/IV/: No evidence, hippus, nystagmus or roving eye movements V: Facial sensation is difficult to reliably assess VII: Facial movements appear grossly symmetric VIII: Hearing appears grossly intact to loud voice bilaterally IX/X: Palate is unable to be accurately visualized XI: Shoulder shrug appears symmetric/ grossly intact bilaterally XII: Tongue protrudes midline without evidence of biting Motor exam: Left hemiparesis- LLE >LUE Sensory: Sensation is difficult to reliably assess Coordination: Deferred Reflexes: Deferred Gait: Deferred Results & Data Vital Signs (Past 12 Hours) Vital Signs Pulse Pulse Resp BP BP Pulse Ox Pulse Ox 11/20/23 08:45 82 20 188/134 H 95 11/20/23 07:30 61 11/20/23 06:43 65 18 136/72 95 11/20/23 04:40 80 16 153/94 H 94 11/20/23 02:50 70 11/20/23 02:28 73 16 139/79 94 11/20/23 02:27 94 11/20/23 00:30 88 20 11/20/23 00:15 82 13 11/20/23 00:00 83 16 11/20/23 00:00 143/84 H 11/19/23 23:45 82 14 11/19/23 23:30 81 12 11/19/23 23:15 80 12 O2 Del Method O2 Del Method 11/20/23 08:45 Room Air 11/20/23 07:30 11/20/23 06:43 Room Air 11/20/23 04:40 Room Air 11/20/23 02:50 11/20/23 02:28 Room Air 11/20/23 02:27 Room Air 11/20/23 00:30 11/20/23 00:15 11/20/23 00:00 11/20/23 00:00 11/19/23 23:45 11/19/23 23:30 11/19/23 23:15 Laboratory Results Abnormal lab results 11/19/23 11/19/23 11/20/23 Range/Units 22:04 23:02 03:41 Hgb 11.9 L (12.0-16.0) g/dl MCHC 31.8 L (32.0-36.0) g/dL Conway # (Auto) 0.87 H (0.11-0.59) K/uL Eos # (Auto) (0.00-0.50) K/uL Sodium 134 L (136-145) mmol/L BUN/Creatinine Ratio 29.4 H 24.1 H (10-20) Glucose 101 H (70-99(Fasting)) mg/dl Hemoglobin A1c 5.8 H (4.5-5.6) % AST 11 L (13-39) U/L ALT 3 L (7-52) U/L Albumin 3.1 L (3.4-5.0) gm/dl 11/20/23 Range/Units 03:42 Hgb (12.0-16.0) g/dl MCHC 30.7 L (32.0-36.0) g/dL Conway # (Auto) 1.02 H (0.11-0.59) K/uL Eos # (Auto) 0.54 H (0.00-0.50) K/uL Sodium (136-145) mmol/L BUN/Creatinine Ratio (10-20) Glucose (70-99(Fasting)) mg/dl Hemoglobin A1c (4.5-5.6) % AST (13-39) U/L ALT (7-52) U/L Albumin (3.4-5.0) gm/dl Diagnostic Findings Head CT 11/19/23 21:42 CR Exam(s): CT HEAD Without Contrast EXAM: CT Head Without Intravenous Contrast CLINICAL HISTORY: Reason for exam: neuro deficit, acute stroke suspected. TECHNIQUE: Axial computed tomography images of the head/brain without intravenous contrast. CTDI is 37.01 mGy and DLP is 546.36 mGy-cm. Automated exposure control was utilized for the study. A dose lowering technique was utilized adhering to the principles of ALARA. COMPARISON: March 15, 2023 FINDINGS: Brain: Moderate atrophy and periventricular white matter low density consistent with chronic small vessel disease and/or senescent changes, similar to previous. No acute large vessel infarct or intracranial hemorrhage is identified. Ventricles: Unremarkable. No ventriculomegaly. Bones/joints: Unremarkable. No acute fracture. Soft tissues: Unremarkable. Sinuses: Unremarkable as visualized. No acute sinusitis. Mastoid air cells: Unremarkable as visualized. No mastoid effusion. IMPRESSION: Moderate atrophy and periventricular white matter low density consistent with chronic small vessel disease and/or senescent changes, similar to previous. No acute large vessel infarct or intracranial hemorrhage is identified. Communications: Call Doctor Stroke Electronically signed by: Luis Lopez MD 11/19/23 22:05 PM Head CTA 11/19/23 21:42 CR Exam(s): CTA HEAD With Contrast IV Amt: 118 ml optiray 320 EXAM: CT Angiography Head With Intravenous Contrast CLINICAL HISTORY: Reason for exam: neuro deficit, acute stroke suspected. TECHNIQUE: Axial computed tomographic angiography images of the head with intravenous contrast. CTDI is 16.61 mGy and DLP is 8.3 mGy-cm. Automated exposure control was utilized for the study. A dose lowering technique was utilized adhering to the principles of ALARA. MIP reconstructed images were created and reviewed. CONTRAST: Patient received 118 ml optiray 320 of IV contrast COMPARISON: No relevant prior studies available. FINDINGS: Right internal carotid artery: Mild calcified plaque in the distal right internal carotid artery with less than 20% stenosis. No aneurysm. Right anterior cerebral artery: Unremarkable. No occlusion or significant stenosis. No aneurysm. Right middle cerebral artery: Unremarkable. No occlusion or significant stenosis. No aneurysm. Right posterior cerebral artery: Unremarkable. No occlusion or significant stenosis. No aneurysm. Right vertebral artery: Unremarkable as visualized. Left internal carotid artery: Mild calcified plaque in the distal left internal carotid artery with less than 20% stenosis. No aneurysm. Left anterior cerebral artery: Unremarkable. No occlusion or significant stenosis. No aneurysm. Left middle cerebral artery: Unremarkable. No occlusion or significant stenosis. No aneurysm. Left posterior cerebral artery: Unremarkable. No occlusion or significant stenosis. No aneurysm. Normal anatomic variant of origin of the left posterior cerebral artery from the anterior circulation. Left vertebral artery: The distal left vertebral artery is small but patent. This is a normal variant. Basilar artery: Unremarkable. No occlusion or significant stenosis. No aneurysm. IMPRESSION: No acute findings in the arteries of the head/brain. Communications: Call Doctor Stroke Electronically signed by: Luis Lopez MD 11/19/23 22:12 PM Neck CTA 11/19/23 21:42 CR Exam(s): CTA NECK With Contrast IV Amt: 118 ml optiray 320 EXAM: CT Angiography Neck With Intravenous Contrast CLINICAL HISTORY: Reason for exam: neuro deficit, acute stroke suspected. TECHNIQUE: Routine carotid CT angiography protocol was performed with intravenous contrast. NASCET criteria using the distal ICAs for comparison were used for evaluation of stenoses. CTDI is 11.28 mGy and DLP is 375.5 mGy-cm. Automated exposure control was utilized for the study. A dose lowering technique was utilized adhering to the principles of ALARA. MIP reconstructed images were created and reviewed. CONTRAST: Patient received 118 ml optiray 320 of IV contrast COMPARISON: None. FINDINGS: VASCULATURE: Right common carotid artery: The right common carotid artery is tortuous but widely patent. No occlusion or significant stenosis. No dissection. Right internal carotid artery: Calcified plaque in the proximal right internal carotid artery causing 50% stenosis. No dissection. Right external carotid artery: Unremarkable. No occlusion. Right vertebral artery: Unremarkable. No occlusion or significant stenosis. No dissection. Left common carotid artery: Unremarkable. No occlusion or significant stenosis. No dissection. Left internal carotid artery: 30% stenosis of the proximal left internal carotid artery. No dissection. Left external carotid artery: Unremarkable. No occlusion. Left vertebral artery: Unremarkable. No occlusion or significant stenosis. No dissection. Aorta: The left vertebral artery is smaller than the right and arises directly from the aortic arch. No focal stenosis or dissection. NECK: Bones/joints: Mild multilevel degenerative changes throughout the cervical spine. No acute fracture or subluxation is seen. Soft tissues: Unremarkable. Lung apices: Clear. CAROTID STENOSIS REFERENCE USING NASCET CRITERIA: % ICA stenosis = (1 - narrowest ICA diameter/diameter of distal cervical ICA) x 100. Mild - <50% stenosis. Moderate - 50-69% stenosis. Severe - 70-94% stenosis. Near occlusion - 95-99% stenosis. Occluded - 100% stenosis. IMPRESSION: Calcified plaque in the proximal right internal carotid artery causing 50% stenosis. There is 30% stenosis of the proximal left internal carotid artery. Communications: Call Doctor Stroke Electronically signed by: Luis Lopez MD 11/19/23 22:08 PM Brain MRI 11/20/23 00:02 CR Exam(s): MRI HEAD Without Contrast EXAM: MR Head Without Intravenous Contrast CLINICAL HISTORY: Reason for exam: cva. TECHNIQUE: Magnetic resonance images of the head/brain without intravenous contrast in multiple planes. COMPARISON: November 19, 2023 CT head FINDINGS: Artifacts: Mild motion artifact. Brain: There is an oval 2 x 1 x 1 cm focus of diffusion restriction and T2 hyperintensity in the right internal capsule and right frontal lobe deep white matter consistent with acute small vessel infarct. Moderate diffuse cerebral atrophy, similar to previous. Periventricular white matter T2 hyperintensity consistent with chronic small vessel disease. No other acute infarcts or hemorrhage identified. Ventricles: Mildly prominent. No mass or hemorrhage. Bones/joints: Unremarkable. No acute fracture. Sinuses: Unremarkable as visualized. No acute sinusitis. Mastoid air cells: Unremarkable as visualized. No mastoid effusion. Orbits: Unremarkable as visualized. IMPRESSION: 1. There is an oval 2 x 1 x 1 cm focus of diffusion restriction and T2 hyperintensity in the right internal capsule and right frontal lobe deep white matter consistent with acute small vessel infarct. 2. Moderate diffuse cerebral atrophy, similar to previous. Periventricular white matter T2 hyperintensity consistent with chronic small vessel disease. No other acute infarcts or hemorrhage identified. Communications: Call Doctor Stroke Electronically signed by: Luis Lopez MD 11/20/23 01:37 AM Chest X-Ray 11/20/23 08:44 XR chest 1V portable HISTORY: Aspiration. Assess for pneumonia. COMPARISON: Chest 03/15/2023. FINDINGS: No pneumothorax. No pleural effusions. There is chronic elevation of the right hemidiaphragm with bibasilar linear densities suggesting subsegmental atelectasis or scarring. Otherwise, no new focal lung consolidations to suggest a pneumonia. No evidence for pulmonary edema. Mild chronic interstitial thickening persists. There are surgical clips within the right upper quadrant and left breast. Moderate hiatus hernia is noted. The heart is mildly enlarged. IMPRESSION: No significant change compared to the prior study. No acute process. ACT 112: Negative or not required by law. Electronically signed by: Young Monge M.D. 11/20/2023 10:14 AM Medications Administered Home Medications Medication Instructions Recorded Confirmed Last Taken loratadine 10 mg tablet (Claritin) 10 mg PO QAM 12/25/21 11/19/23 11/19/23 famotidine 20 mg tablet 20 mg PO BID #14 tabs 02/15/22 11/19/23 11/19/23 polyethylene glycol 3350 17 gram 17 g PO BID #14 ea 02/15/22 11/19/23 11/19/23 oral powder packet (Miralax) mirtazapine 15 mg tablet 7.5 mg PO HS 03/15/23 11/19/23 11/19/23 sertraline 25 mg tablet 25 mg PO DAILY 03/15/23 11/19/23 11/19/23 acetaminophen 325 mg tablet 650 mg PO Q4H PRN PAIN/FEVER>100 11/19/23 11/19/23 Unknown (Tylenol) carboxymethylcellulose sodium 1 % 2 drp OPL TID 11/19/23 11/19/23 11/19/23 eye drops (Artificial Tears (carboxymethylcellulose)) docusate sodium 100 mg capsule 100 mg PO QAM 11/19/23 11/19/23 11/19/23 guaifenesin 100 mg/5 mL oral liquid 200 mg PO Q4H PRN Cough 11/19/23 11/19/23 Unknown hydrocortisone 1 % topical cream 1 applic topical BID PRN SKIN 11/19/23 11/19/23 Unknown IRRITATION ON BUTTOCKS omeprazole 20 mg capsule,delayed 20 mg PO DAILY 11/19/23 11/19/23 11/19/23 release potassium chloride 10 mEq 10 meq PO DAILY 11/19/23 11/19/23 11/19/23 tablet,extended release(part/cryst) Active Medications Generic Name Dose Route Start Last Admin Trade Name Hugo PRN Reason Stop Dose Admin Artificial Tears 2 drops 11/20/23 09:00 11/20/23 07:52 Artificial Tears OPL 12/20/23 08:59 2 drops TID SELIN Administration Aspirin 81 mg 11/20/23 09:00 11/20/23 07:53 Aspirin 81 Mg Ectab PO 12/20/23 08:59 81 mg QAM SELIN Administration Atorvastatin Calcium 40 mg 11/20/23 09:00 11/20/23 07:53 Atorvastatin 40 Mg Tab PO 12/20/23 08:59 40 mg QAM SELIN Administration Docusate Sodium 100 mg 11/20/23 09:00 11/20/23 07:53 Docusate Sodium 100 Mg Cap PO 12/20/23 08:59 100 mg QAM SELIN Administration Enoxaparin Sodium 30 mg 11/20/23 09:00 11/20/23 07:52 Enoxaparin Inj 30 Mg/0.3 Ml Syr SQ 12/20/23 08:59 30 mg QAM SELIN Administration Famotidine 20 mg 11/20/23 09:00 11/20/23 07:53 Famotidine 20 Mg Tab PO 12/20/23 08:59 20 mg BID SELIN Administration Sodium Chloride 1,000 mls @ 40 mls/hr 11/20/23 00:04 11/20/23 02:15 Nss IV 11/21/23 00:03 40 mls/hr .Q24H ONE Administration Loratadine 10 mg 11/20/23 09:00 11/20/23 07:53 Loratadine 10 Mg Tab PO 12/20/23 08:59 10 mg QAM SELIN Administration Pantoprazole Sodium 40 mg 11/20/23 09:00 11/20/23 07:53 Pantoprazole 40 Mg Tab PO 12/20/23 08:59 40 mg DAILY SELIN Administration Polyethylene Glycol 17 gm 11/20/23 09:00 11/20/23 07:53 Polyethylene (Miralax) 17 Gm Pack PO 12/20/23 08:59 17 gm BID SELIN Administration Sertraline HCl 25 mg 11/20/23 09:00 11/20/23 07:53 Sertraline Hcl 50 Mg Tablet PO 12/20/23 08:59 25 mg DAILY SELIN Administration
--- NOTE | 2023-11-20 11:56 | Hospitalist Progress Note ---
Date of Service November 20, 2023 Assessment & Plan (1) Left-sided weakness: Plan: CVA Brain MRI - 1. There is an oval 2 x 1 x 1 cm focus of diffusion restriction and T2 hyperintensity in the right internal capsule and right frontal lobe deep white matter consistent with acute small vessel infarct. 2. Moderate diffuse cerebral atrophy, similar to previous. Periventricular white matter T2 hyperintensity consistent with chronic small vessel disease. No other acute infarcts or hemorrhage identified. CT head - Moderate atrophy and periventricular white matter low density consistent with chronic small vessel disease and/or senescent changes, similar to previous. No acute large vessel infarct or intracranial hemorrhage is identified. CTA head - No acute findings in the arteries of the head/brain. CTA neck - Calcified plaque in the proximal right internal carotid artery caus ing 50% stenosis. There is 30% stenosis of the proximal left internal carotid artery. Neurology consulted in ED - telestroke - recommend ASA and statin Neurochecks Telemetry Permissive hypertension initially Aspirin and statin Rx for secondary stroke prevention TTE -LV is normal in size. There is mild concentric LVH. LV wall motion is normal. EF 60 to 65%. Grade 1 diastolic dysfunction. Aortic valve sclerosis moderate, without significant aortic valvular stenosis. Mitral valve leaflets are mildly redundant with borderline prolapse of posterior leaflet. There is trace mitral regurg.. Overall is mobile but not aneurysmal. No evidence of intracardiac shunt by agitated saline contrast injection. LDL 100 A1c 5.8% [facility] neurology - Acute right hemispheric ischemic stroke-small vessel-etiology likely HTN Continue frequent neurological assessments Obtain stat CT brain without contrast for any acute neurological decline Continue to monitor/control blood pressure & blood glucose Metabolic workup should include besides hgbA1c, and fasting lipids, also homocysteine, TSH, D Dimer - ordered Recommend DAPT for at least 3 weeks Recommend continue high dose statin therapy indefinitely if tolerated Ok from neurology perspective for VTE prophylaxis PT/OT/SLT to eval and treat Poss. aspiration this AM - per RN pt aspirated when taking AM meds - CXR obtained -negat. - Pt is breathing withoit difficulty , sat. 95% - speech eval consulted Hypertension, patient not on maintenance medications. Cont. to closely monitor. may need to be started on chronic medication. Carotid artery disease on imaging Vascular surgery consulted - Pt with mild R ICA stenosis of 50%. Imaging reviewed by Dr Chowdhury. No indications for vascular surgical intervention at this time. breast cancer left status post surgery SIADH as per records primary hyperparathyroidism, conservative management as per outpatient [facility] Endocrinology note GERD on PPI chronic anemia, hemoglobin at baseline history of Spencer's palsy mood disorder, stable dementia, Delirium precautions DVT prophylaxis per Lovenox subcu DNR as per patient's prior directives as per daughter. Patient family contacts: Mr. Kp Haq (son), contact #[phone] Ms. Jo-Ann Rose (daughter), contact #[phone]. Admission and Anticipated Discharge Date Admission Date: November 20, 2023 Subjective Pt seen in follow up of CVA Currently laying in bed in NAD Per ED RN pt aspirated when taking meds, currently feeling well, no shortness of breath, saturating 95% on RA. CXR obtained. Speech eval pending. No headache. Answers appropriately, follows commands. Has no complaints. can move extremities for me, per RN, previously had trouble moving left arm - said she was able to move when they came to do echo though. No fever, chills, chest pain. No abd. pain. Review of Systems Review of Systems: All systems reviewed & are unremarkable except as noted in Subjective Physical Exam Physical Exam: GENERAL: WD/WN elderly F in NAD SKIN: Normal color, warm HEENT: [place] palpebral conjunctivae, chronic ptosis left, left facial droop NECK : Supple, no tenderness CHEST : CTA, no tenderness HEART : RRR, no obvious murmurs ABDOMEN: no distention, nontender, + bowel sounds EXTREMITIES : No LE swelling NEUROLOGIC : Awake (hx of dementia), left facial asymmetry, mild dysarthria, moves extremities, previously difficulty to move left sided extremities , gait and stance not assessed Results & Data Results & Data Vital Signs (Past 12 Hours) Vital Signs Pulse Pulse Resp BP BP Pulse Ox Pulse Ox 11/20/23 08:45 82 20 188/134 H 95 11/20/23 07:30 61 11/20/23 06:43 65 18 136/72 95 11/20/23 04:40 80 16 153/94 H 94 11/20/23 02:50 70 11/20/23 02:28 73 16 139/79 94 11/20/23 02:27 94 11/20/23 00:30 88 20 11/20/23 00:15 82 13 02/14/24 00:00 83 16 11/20/23 00:00 143/84 H O2 Del Method O2 Del Method 11/20/23 08:45 Room Air 11/20/23 07:30 11/20/23 06:43 Room Air 11/20/23 04:40 Room Air 11/20/23 02:50 11/20/23 02:28 Room Air 11/20/23 02:27 Room Air 11/20/23 00:30 11/20/23 00:15 11/20/23 00:00 11/20/23 00:00 Laboratory Results 11/20/23 11/20/23 11/20/23 Range/Units 11:48 03:42 03:41 WBC 8.79 (4.8-10.8) K/ul RBC 4.76 (4.20-5.40) M/uL Hgb 12.5 (12.0-16.0) g/dl Hct 40.7 (37.0-47.0) % MCV 85.5 (80.0-100.0) fL MCH 26.3 (25.0-34.0) pg MCHC 30.7 L (32.0-36.0) g/dL RDW Std Deviation 41.3 (36.4-46.3) fL RDW Coeff of Tyesha 13.2 (11.5-14.5) % Plt Count 297 (130-400) K/uL MPV 9.5 (9.4-12.4) fL Immature Gran % (Auto) 0.5 % Neut % (Auto) 52.4 % Lymph % (Auto) 28.6 % [place] % (Auto) 11.6 % Eos % (Auto) 6.1 % Baso % (Auto) 0.8 % Neut # (Auto) 4.61 (1.40-6.50) K/uL Lymph # (Auto) 2.51 (1.20-3.40) K/uL [place] # (Auto) 1.02 H (0.11-0.59) K/uL Eos # (Auto) 0.54 H (0.00-0.50) K/uL Baso # (Auto) 0.07 (0.00-0.20) K/uL Immature Gran # (Auto) 0.04 (0.01-0.20) K/uL PT INR APTT PTT Ratio D-Dimer Pending Sodium 136 Potassium 4.0 Chloride 103 (98-107) mmol/L Carbon Dioxide 28 (21-32) mmol/L Anion Gap 5 BUN 19 (6-23) mg/dl Creatinine 0.79 (0.6-1.2) mg/dl Est Cr Clr Drug Dosing 44.6 ml/min Est GFR ( Amer) 79.1 ml/min Est GFR (Non-Af Amer) 68.3 ml/min BUN/Creatinine Ratio 24.1 H (10-20) Glucose 95 (70-99(Fasting)) mg/dl POC Glucose (70-99) mg/dl Estimat Average Glucose 120 mg/dl Hemoglobin A1c 5.8 H (4.5-5.6) % Calcium 10.1 (8.6-10.3) mg/dl Magnesium Total Bilirubin (0.2-1.0) mg/dl AST ALT (7-52) U/L Alkaline Phosphatase (34-104) U/L Troponin I High Sens (0-14) pg/ml Total Protein (6.0-8.3) gm/dl Albumin (3.4-5.0) gm/dl Globulin (2.5-4.0) gm/dl Albumin/Globulin Ratio (0.9-2) Triglycerides 132 (0-150) mg/dl Cholesterol 167 (0-200) mg/dl LDL Cholesterol, Calc 100 mg/dl VLDL Cholesterol, Calc 26 (0-30) mg/dl HDL Cholesterol 41 mg/dl Cholesterol/HDL Ratio 4.1 (0-5) Homocysteine Pending TSH Pending SARS-CoV-2, RNA, NAAT (NEGATIVE) 11/19/23 11/19/23 11/19/23 Range/Units 23:57 23:02 22:04 WBC 8.24 (4.8-10.8) K/ul RBC 4.47 (4.20-5.40) M/uL Hgb 11.9 L (12.0-16.0) g/dl Hct 37.4 (37.0-47.0) % MCV 83.7 (80.0-100.0) fL MCH 26.6 (25.0-34.0) pg MCHC 31.8 L (32.0-36.0) g/dL RDW Std Deviation 40.2 (36.4-46.3) fL RDW Coeff of Tyesha 13.2 (11.5-14.5) % Plt Count 237 (130-400) K/uL MPV 9.4 (9.4-12.4) fL Immature Gran % (Auto) 0.5 % Neut % (Auto) 53.5 % Lymph % (Auto) 29.5 % [place] % (Auto) 10.6 % Eos % (Auto) 5.3 % Baso % (Auto) 0.6 % Neut # (Auto) 4.41 (1.40-6.50) K/uL Lymph # (Auto) 2.43 (1.20-3.40) K/uL [place] # (Auto) 0.87 H (0.11-0.59) K/uL Eos # (Auto) 0.44 (0.00-0.50) K/uL Baso # (Auto) 0.05 (0.00-0.20) K/uL Immature Gran # (Auto) 0.04 (0.01-0.20) K/uL PT 10.9 Cancelled INR 1.0 Cancelled APTT 25 Cancelled PTT Ratio 0.9 Cancelled D-Dimer Sodium 134 L TNP Potassium 4.1 TNP Chloride 102 (98-107) mmol/L Carbon Dioxide 24 (21-32) mmol/L Anion Gap TNP BUN 20 (6-23) mg/dl Creatinine 0.68 (0.6-1.2) mg/dl Est Cr Clr Drug Dosing 51.8 ml/min Est GFR ( Amer) 92.4 ml/min Est GFR (Non-Af Amer) 79.8 ml/min BUN/Creatinine Ratio 29.4 H (10-20) Glucose 101 H (70-99(Fasting)) mg/dl POC Glucose (70-99) mg/dl Estimat Average Glucose mg/dl Hemoglobin A1c (4.5-5.6) % Calcium 9.3 (8.6-10.3) mg/dl Magnesium 2.1 TNP Total Bilirubin 0.4 (0.2-1.0) mg/dl AST 11 L TNP ALT 3 L (7-52) U/L Alkaline Phosphatase 92 (34-104) U/L Troponin I High Sens 2.8 (0-14) pg/ml Total Protein 6.5 (6.0-8.3) gm/dl Albumin 3.1 L (3.4-5.0) gm/dl Globulin 3.4 (2.5-4.0) gm/dl Albumin/Globulin Ratio 0.9 (0.9-2) Triglycerides (0-150) mg/dl Cholesterol (0-200) mg/dl LDL Cholesterol, Calc mg/dl VLDL Cholesterol, Calc (0-30) mg/dl HDL Cholesterol mg/dl Cholesterol/HDL Ratio (0-5) Homocysteine TSH SARS-CoV-2, RNA, NAAT NEGATIVE (NEGATIVE) 11/19/23 Range/Units 21:56 WBC (4.8-10.8) K/ul RBC (4.20-5.40) M/uL Hgb (12.0-16.0) g/dl Hct (37.0-47.0) % MCV (80.0-100.0) fL MCH (25.0-34.0) pg MCHC (32.0-36.0) g/dL RDW Std Deviation (36.4-46.3) fL RDW Coeff of Tyesha (11.5-14.5) % Plt Count (130-400) K/uL MPV (9.4-12.4) fL Immature Gran % (Auto) % Neut % (Auto) % Lymph % (Auto) % [place] % (Auto) % Eos % (Auto) % Baso % (Auto) % Neut # (Auto) (1.40-6.50) K/uL Lymph # (Auto) (1.20-3.40) K/uL [place] # (Auto) (0.11-0.59) K/uL Eos # (Auto) (0.00-0.50) K/uL Baso # (Auto) (0.00-0.20) K/uL Immature Gran # (Auto) (0.01-0.20) K/uL PT INR APTT PTT Ratio D-Dimer Sodium Potassium Chloride (98-107) mmol/L Carbon Dioxide (21-32) mmol/L Anion Gap BUN (6-23) mg/dl Creatinine (0.6-1.2) mg/dl Est Cr Clr Drug Dosing ml/min Est GFR ( Amer) ml/min Est GFR (Non-Af Amer) ml/min BUN/Creatinine Ratio (10-20) Glucose (70-99(Fasting)) mg/dl POC Glucose 93 (70-99) mg/dl Estimat Average Glucose mg/dl Hemoglobin A1c (4.5-5.6) % Calcium (8.6-10.3) mg/dl Magnesium Total Bilirubin (0.2-1.0) mg/dl AST ALT (7-52) U/L Alkaline Phosphatase (34-104) U/L Troponin I High Sens (0-14) pg/ml Total Protein (6.0-8.3) gm/dl Albumin (3.4-5.0) gm/dl Globulin (2.5-4.0) gm/dl Albumin/Globulin Ratio (0.9-2) Triglycerides (0-150) mg/dl Cholesterol (0-200) mg/dl LDL Cholesterol, Calc mg/dl VLDL Cholesterol, Calc (0-30) mg/dl HDL Cholesterol mg/dl Cholesterol/HDL Ratio (0-5) Homocysteine TSH SARS-CoV-2, RNA, NAAT (NEGATIVE) Medications Administered Current Inpatient Medications Acetaminophen (Acetaminophen 325 Mg Tab) 650 mg PO Q4H PRN PRN Reason: PAIN/FEVER>100 Stop: 12/20/23 01:34 Artificial Tears (Artificial Tears) 2 drops OPL TID [facility] Stop: 12/20/23 08:59 Last Admin: 11/20/23 07:52 Dose: 2 drops Aspirin (Aspirin 81 Mg Ectab) 81 mg PO [facility] Stop: 12/20/23 08:59 Last Admin: 11/20/23 07:53 Dose: 81 mg Atorvastatin Calcium (Atorvastatin 40 Mg Tab) 40 mg PO [facility] Stop: 12/20/23 08:59 Last Admin: 11/20/23 07:53 Dose: 40 mg Docusate Sodium (Docusate Sodium 100 Mg Cap) 100 mg PO [facility] Stop: 12/20/23 08:59 Last Admin: 11/20/23 07:53 Dose: 100 mg Enoxaparin Sodium (Enoxaparin Inj 30 Mg/0.3 Ml Syr) [facility]: 12/20/23 08:59 Last Admin: 11/20/23 07:52 Dose: 30 mg Famotidine (Famotidine 20 Mg Tab) 20 mg PO BID [facility] Stop: 12/20/23 08:59 Last Admin: 11/20/23 07:53 Dose: 20 mg Sodium Chloride (Nss) 1,000 mls @ 40 mls/hr IV .Q24H ONE Stop: 11/21/23 00:03 Last Admin: 11/20/23 02:15 Dose: 40 mls/hr Promethazine HCl (Phenergan) 6.25 mg in 50.25 mls @ 201 mls/hr IV Q6H PRN PRN Reason: Nausea And Vomiting Stop: 12/20/23 00:09 Loratadine (Loratadine 10 Mg Tab) 10 mg PO QAM [facility] Stop: 12/20/23 08:59 Last Admin: 11/20/23 07:53 Dose: 10 mg Mirtazapine (Mirtazapine Tab 15 Mg Tab) 7.5 mg PO HS [facility] Stop: 12/20/23 20:59 Miscellaneous Information (Pharmacist Discharge Med Rec Consult) 1 each N/A UD PRN PRN Reason: Consult Stop: 12/20/23 01:34 Pantoprazole Sodium (Pantoprazole 40 Mg Tab) 40 mg PO DAILY [facility] Stop: 12/20/23 08:59 Last Admin: 11/20/23 07:53 Dose: 40 mg Polyethylene Glycol (Polyethylene (Miralax) 17 Gm Pack) 17 gm PO BID [facility] Stop: 12/20/23 08:59 Last Admin: 11/20/23 07:53 Dose: 17 gm Sertraline HCl (Sertraline Hcl 50 Mg Tablet) 25 mg PO DAILY [facility] Stop: 12/20/23 08:59 Last Admin: 11/20/23 07:53 Dose: 25 mg
[2023-11-20 12:37] LABS: D Dimer 790 ug/L FEU (0-500)
--- NOTE | 2023-11-20 12:37 | Consultation ---
Date of Consultation November 20, 2023 Assessment & Plan (1) Carotid stenosis, bilateral: Pt with mild R ICA stenosis of 50%. Imaging reviewed by Dr Chowdhury. No indications for vascular surgical intervention at this time. Pt states understanding. daughter was also present. Please call if needed. History of Present Illness Reason for Consultation: ICA Stenosis Attending Physician: Chai Gaffney MD History of Present Illness 83 yo f with hx of dementia, HTN, SIADH, anemia, osteoporosis, bells palsy, GERD, admitted with AMS and L sided weakness yesterday, seen in consultation today for eval of R ICA stenosis. Pt states no prior knowledge of this. States she is tired, but feels like her normal self. Believes her L arm/leg were weak, but does not remember what other sx she had. Per prior documentation, she had L visual neglect and L sided weakness. Denies BARRETO, fever, chills, chest pain, recent illness, SOB, abd pain, N/V, rest pain, claudication, other complaints. CTA neck demonstrates about 50% R ICA stenosis, MRI demonstrates R hemispheric CVA and significant microvessel disease. Allergies Allergy/AdvReac Type Severity Reaction Status Date / Time ezetimibe [From Zetia] Allergy Unknown [facility] Verified 11/19/23 21:59 [facility] shellfish [facility] 11/[facility]/23 21:59 [facility] Sulfa (Sulfonamide Allergy Unknown [facility] Verified 11/19/23 21:59 Antibiotics) [facility] sulfamethoxazole Allergy Unknown [facility] Verified 11/19/23 21:59 [From Bactrim] [facility] tramadol Allergy Unknown ON [facility] Verified 11/19/23 21:59 [facility] trimethoprim [From Bactrim] Allergy Unknown ON [facility] Verified 11/19/23 21:59 [facility] Un[facility] 11/19/23 21:59 [facility] Home Medications Medication Instructions Recorded Confirmed Type loratadine 10 mg tablet (Claritin) 10 mg PO QAM 12/25/21 11/19/23 History famotidine 20 mg tablet 20 mg PO BID #14 tabs 02/15/22 11/19/23 Rx polyethylene glycol 3350 17 gram 17 g PO BID #14 ea 02/15/22 11/19/23 Rx oral powder packet (Miralax) mirtazapine 15 mg tablet 7.5 mg PO HS 03/15/23 11/19/23 History sertraline 25 mg tablet 25 mg PO DAILY 03/15/23 11/19/23 History acetaminophen 325 mg tablet 650 mg PO Q4H PRN PAIN/FEVER>100 11/19/23 11/19/23 History (Tylenol) carboxymethylcellulose sodium 1 % 2 drp OPL TID 11/19/23 11/19/23 History eye drops (Artificial Tears (carboxymethylcellulose)) docusate sodium 100 mg capsule 100 mg PO QAM 11/19/23 11/19/23 History guaifenesin 100 mg/5 mL oral liquid 200 mg PO Q4H PRN Cough 11/19/23 11/19/23 History hydrocortisone 1 % topical cream 1 applic topical BID PRN SKIN 11/19/23 11/19/23 History IRRITATION ON BUTTOCKS omeprazole 20 mg capsule,delayed 20 mg PO DAILY 11/19/23 11/19/23 History release potassium chloride 10 mEq 10 meq PO DAILY 11/19/23 11/19/23 History tablet,extended release(part/cryst) Patient History Medical History S/p left hip fracture SIADH (syndrome of inappropriate ADH production) Fall DVT prophylaxis History of breast cancer Hyperparathyroidism Lumbar spinal stenosis Pre-diabetes Dementia Spencer's palsy Osteoporosis HTN (hypertension) Closed right hip fracture Surgical History Status post hip hemiarthroplasty Right History of partial mastectomy hx of dcis Family History Mother Alzheimer disease Father Heart disease Social History Smoking Status: Unknown if ever smoked Hx Alcohol Use: No Hx Substance Use: No Preferred Language: Bulgarian Communication Ability: Effective [employer] 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 Beliefs That Will Affect Care: None marital status: Current Living Situation: Personal Care Facility How many Children do You have: 2 Feels Safe at Home: Yes Assistive Devices: Walker and Wheelchair Review of Systems Review of Systems: All systems reviewed & are unremarkable except as noted in HPI & below Physical Exam Constitutional: WD/WN, vitals as above ENMT: Ears: no hearing impairment Neck: trachea midline Respiratory: normal respiratory effort, lungs clear to auscultation Auscultation: + diminished lung sounds Cardiovascular: Rate/Rhythm: regular rate and regular rhythm Vessels: posterior tibial pulses present, dorsalis pedis pulses present and radial pulses present; no carotid bruit and + abnormal peripheral pulses Extremities: normal capillary refill Gastrointestinal (Abdomen): Inspection/Auscultation: abdomen normal to inspection and normal bowel sounds Percussion/Palpation: abdomen soft; abdomen nontender Musculoskeletal: no cyanosis or clubbing, extremities motor strength 5/5 Skin: no rashes, warm and dry Neurologic: moves all extremities and awake; no focal motor deficits and not confused Psychiatric: Orientation: alert and oriented x 3 Eye Contact: + fair eye contact Affect: + depressed affect and + flat affect Results & Data Vital Signs (Past 12 Hours) Vital Signs Pulse Pulse Resp BP Pulse Ox Pulse Ox O2 Del Method 11/20/23 08:45 82 20 188/134 H 95 Room Air 11/20/23 07:30 61 11/20/23 06:43 65 18 136/72 95 Room Air 11/20/23 04:40 80 16 153/94 H 94 Room Air 11/20/23 02:50 70 11/20/23 02:28 73 16 139/79 94 Room Air 11/20/23 02:27 94 11/20/23 00:30 88 20 O2 Del Method 11/20/23 08:45 11/20/23 07:30 11/20/23 06:43 11/20/23 04:40 11/20/23 02:50 11/20/23 02:28 11/20/23 02:27 Room Air 11/20/23 00:30
--- NOTE | 2023-11-20 15:08 | Ultrasound Report ---
ULTRASOUND BILATERAL LOWER EXTREMITY VENOUS CLINICAL HISTORY: Elevated d-dimer COMPARISON STUDY: No priors. TECHNIQUE: Real-time, grayscale, and color Doppler sonography of the deep veins of the right and left lower extremity was performed from the inguinal crease to the calf. Compression and augmentation wer e utilized. FINDINGS: Right lower extremity: There is nearly occlusive to occlusive deep venous thrombosis seen in the righ t common femoral vein and throughout the proximal and mid portions of the superficial femoral vein. T he distal superficial femoral vein and popliteal vein are patent and normally compressible. The great er saphenous vein and the profunda femoris vein at the junction with the common femoral vein are peg r. There is reversal flow in the greater saphenous vein. The visualized calf veins are patent. Left lower extremity: There is nonocclusive and chronic appearing deep venous thrombosis in the left common femoral vein. The left superficial femoral and popliteal Veins are patent and normally nelly sible. The greater saphenous vein and the profunda femoris vein at the junction with the common femor al vein are clear. The visualized calf veins are patent. IMPRESSION: 1. There is nearly occlusive to occlusive deep venous thrombosis seen in the right common femoral and superficial femoral veins as above. 2. There is nonocclusive and chronic appearing thrombus in the left common femoral vein. ACT 112: Negative or not required by law. Electronically signed by: Abdoulaye Brumfield M.D. 11/20/2023 3:07 PM
[2023-11-20] MEDS ORDERED: Heparin IV Adult Wt-Based Standard *NO* INITIAL Bolus Protocol IV STA (16:10)
[2023-11-20] MEDS: CLOPIDOGREL BISULFATE 75 MG TAB PO SCH (16:26)
[2023-11-20] MEDS ORDERED: hydrALAZINE HCL 20 MG/ML VIAL IV PRN (17:49)
[2023-11-20] MEDS: hydrALAZINE HCL 25 MG TAB PO STA (18:25)
[2023-11-20] MEDS: HEPARIN SODIUM/DEXTROSE 25,000 UNITS/500 ML BAG IV SCH (18:40)
[2023-11-20 18:51] LABS: Basophils # (auto) 0.05 K/uL (0.00-0.20); Basophils % (auto) 0.6 %; Eosinophils # (auto) 0.39 K/uL (0.00-0.50); Eosinophils % (auto) 4.6 %; Hematocrit (blood only) 39.7 % (37.0-47.0); Immature Granulocytes # (auto) 0.02 K/uL (0.01-0.20); Immature Granulocytes % (auto) 0.2 %; Lymphocytes # (auto) 1.56 K/uL (1.20-3.40); Lymphocytes % (auto) 18.4 %; Mean Corpuscular Hemoglobin 27.2 pg (25.0-34.0); Mean Corpuscular Hgb Conc 32.7 g/dL (32.0-36.0); Mean Corpuscular Volume 83.1 fL (80.0-100.0); Mean Platelet Volume 9.2 fL (9.4-12.4); Monocytes # (auto) 0.81 K/uL (0.11-0.59); Monocytes % (auto) 9.5 %; Neutrophils # (auto) 5.67 K/uL (1.40-6.50); Neutrophils % (auto) 66.7 %; Platelet Count 308 K/uL (130-400); RDW Coefficient of Variation 13.1 % (11.5-14.5); RDW Standard Deviation 39.4 fL (36.4-46.3); Red Blood Count 4.78 M/uL (4.20-5.40)
[2023-11-20 19:22] LABS: Partial Thromboplastin Time 27 Seconds (21-31); Prothrombin Time 10.9 Seconds (9.0-12.0)
[2023-11-20] MEDS: MIRTAZAPINE TAB 15 MG TAB PO SCH (21:14)
[2023-11-21 01:33] LABS: ANTI-Xa, UFH(UnfractionatedHep 0.49 IU/ml (0.3-0.7)
--- NOTE | 2023-11-21 05:37 | Electrocardiogram Report ---
Test Reason : Blood Pressure : / mmHG Vent. Rate : 089 BPM Atrial Rate : 089 BPM P-R Int : 172 ms QRS Dur : 068 ms QT Int : 378 ms P-R-T Axes : 053 015 013 degrees QTc Int : 459 ms Normal sinus rhythm Nonspecific ST abnormality Abnormal ECG When compared with ECG of 15-MAR-2023 12:45, No significant change was found Confirmed by Sukhwinder Callejas ([id number]) on 11/21/2023 5:36:32 AM Referred By: Cinthia dickerson [facility] Confirmed By:Sukhwinder Callejas
[2023-11-21 07:03] LABS: Basophils # (auto) 0.06 K/uL (0.00-0.20); Basophils % (auto) 0.8 %; Eosinophils # (auto) 0.58 K/uL (0.00-0.50); Eosinophils % (auto) 7.8 %; Hematocrit (blood only) 37.3 % (37.0-47.0); Hemoglobin 12.2 g/dl (12.0-16.0); Immature Granulocytes # (auto) 0.02 K/uL (0.01-0.20); Immature Granulocytes % (auto) 0.3 %; Lymphocytes # (auto) 1.58 K/uL (1.20-3.40); Lymphocytes % (auto) 21.3 %; Mean Corpuscular Hemoglobin 27.2 pg (25.0-34.0); Mean Corpuscular Hgb Conc 32.7 g/dL (32.0-36.0); Mean Corpuscular Volume 83.3 fL (80.0-100.0); Mean Platelet Volume 9.4 fL (9.4-12.4); Monocytes # (auto) 0.71 K/uL (0.11-0.59); Monocytes % (auto) 9.6 %; Neutrophils # (auto) 4.48 K/uL (1.40-6.50); Neutrophils % (auto) 60.2 %; Platelet Count 277 K/uL (130-400); RDW Coefficient of Variation 13.1 % (11.5-14.5); RDW Standard Deviation 39.6 fL (36.4-46.3); Red Blood Count 4.48 M/uL (4.20-5.40); White Blood Count 7.43 K/ul (4.8-10.8)
--- NOTE | 2023-11-21 07:17 | Hospitalist Progress Note ---
Date of Service November 21, 2023 Assessment & Plan (1) Left-sided weakness: Plan: CVA Brain MRI - 1. There is an oval 2 x 1 x 1 cm focus of diffusion restriction and T2 hyperintensity in the right internal capsule and right frontal lobe deep white matter consistent with acute small vessel infarct. 2. Moderate diffuse cerebral atrophy, similar to previous. Periventricular white matter T2 hyperintensity consistent with chronic small vessel disease. No other acute infarcts or hemorrhage identified. CT head - Moderate atrophy and periventricular white matter low density consistent with chronic small vessel disease and/or senescent changes, similar to previous. No acute large vessel infarct or intracranial hemorrhage is identified. CTA head - No acute findings in the arteries of the head/brain. CTA neck - Calcified plaque in the proximal right internal carotid artery caus ing 50% stenosis. There is 30% stenosis of the proximal left internal carotid artery. Neurology consulted in ED - telestroke - recommend ASA and statin Neurochecks Telemetry Permissive hypertension initially Aspirin and statin Rx for secondary stroke prevention TTE - LV is normal in size. There is mild concentric LVH. LV wall motion is normal. EF 60 to 65%. Grade 1 diastolic dysfunction. Aortic valve sclerosis moderate, without significant aortic valvular stenosis. Mitral valve leaflets are mildly redundant with borderline prolapse of posterior leaflet. There is trace mitral regurg. Overall is mobile but not aneurysmal. No evidence of intracardiac shunt by agitated saline contrast injection. LDL 100 A1c 5.8 % [facility] neurology - Acute right hemispheric ischemic stroke-small vessel-etiology likely HTN Continue frequent neurological assessments Obtain stat CT brain without contrast for any acute neurological decline Continue to monitor/control blood pressure & blood glucose Metabolic workup should include besides hgbA1c, and fasting lipids, also homocysteine, TSH, D Dimer - ordered Recommend DAPT for at least 3 weeks Recommend continue high dose statin therapy indefinitely if tolerated Ok from neurology perspective for VTE prophylaxis PT/OT/SLT to eval and treat D dimer elevated at 790 - discussed w/ neurology as well. obtained doppler of LEs to r/o dvt Doppler c/w RLE DVT - discussed w/ neuro - started IV heparin w/o bolus, can cont. asa and plavix if able to take PO. CT head AM daily while anticoag. neurochecks. This was also discussed w/ family over the phone. CT head (11/21) - 1. Expected evolution of the 2 cm acute to subacute infarct involving the posterior limb of the right internal capsule. No evidence for hemorrhagic transformation. 2. Atrophy and microvascular ischemic changes again noted. Poss. aspiration - on 11/20 AM - per RN pt aspirated when taking AM meds - CXR obtained -negat. - Pt is breathing withoit difficulty , sat. 95% - speech eval consulted Hypertension, patient not on maintenance medications. Cont. to closely monitor. may need to be started on chronic medication. Carotid artery disease on imaging Vascular surgery consulted - Pt with mild R ICA stenosis of 50%. Imaging reviewed by Dr Chowdhury. No indications for vascular surgical intervention at this time. breast cancer left status post surgery SIADH as per records primary hyperparathyroidism, conservative management as per [place] [facility] [place] GERD on PPI chronic anemia, hemoglobin at baseline history of Spencer's palsy mood disorder, stable dementia, Delirium precautions DVT prophylaxis per Lovenox subcu DNR as per patient's prior directives as per daughter. Patient family contacts: Mr. Kp Haq (son), contact #[phone] Ms. Jo-Ann Rose (daughter), contact #[phone]. Admission and Anticipated Discharge Date Admission Date: November 20, 2023 Subjective Pt seen in follow up of CVA Currently laying in bed in NAD Daughter present at the bedside and updated. No headache. Answers appropriately, follows commands. Has no complaints. can move extremities for me, however weaker on the left side. No fever, chills, chest pain. No abd. pain. Was able to eat today by herself. Issues w/ aspiration noted yesterday- speech therapist following. Review of Systems Review of Systems: All systems reviewed & are unremarkable except as noted in Subjective Physical Exam Physical Exam: GENERAL: WD/WN elderly F in NAD SKIN: Normal color, warm HEENT: [place] palpebral conjunctivae, chronic ptosis left, left facial droop NECK : Supple, no tenderness CHEST : CTA, no tenderness HEART : RRR, no obvious murmurs ABDOMEN: no distention, nontender, + bowel sounds EXTREMITIES : No LE swelling NEUROLOGIC : Awake (hx of dementia), left facial asymmetry, mild dysarthria, moves extremities, weaker on the left , gait and stance not assessed Results & Data Results & Data Vital Signs (Past 12 Hours) Vital Signs Temp Pulse Pulse Resp BP Pulse Ox O2 Del Method 11/21/23 04:37 36.8 C 78 20 172/81 H 92 Room Air 11/20/23 23:08 36.8 C 80 20 170/79 H 96 Room Air 11/20/23 21:58 82 11/20/23 19:39 36.8 C 84 20 141/84 H 96 Room Air Laboratory Results 11/21/23 11/21/23 11/20/23 Range/Units 06:38 00:30 18:34 WBC 7.43 8.50 (4.8-10.8) K/ul RBC 4.48 4.78 (4.20-5.40) M/uL Hgb 12.2 13.0 (12.0-16.0) g/dl Hct 37.3 39.7 (37.0-47.0) % MCV 83.3 83.1 (80.0-100.0) fL MCH 27.2 27.2 (25.0-34.0) pg MCHC 32.7 32.7 (32.0-36.0) g/dL RDW Std Deviation 39.6 39.4 (36.4-46.3) fL RDW Coeff of Tyesha 13.1 13.1 (11.5-14.5) % Plt Count 277 308 (130-400) K/uL MPV 9.4 9.2 L (9.4-12.4) fL Immature Gran % (Auto) 0.3 0.2 % Neut % (Auto) 60.2 66.7 % Lymph % (Auto) 21.3 18.4 % Smyth % (Auto) 9.6 9.5 % Eos % (Auto) 7.8 4.6 % Baso % (Auto) 0.8 0.6 % Neut # (Auto) 4.48 5.67 (1.40-6.50) K/uL Lymph # (Auto) 1.58 1.56 (1.20-3.40) K/uL Smyth # (Auto) 0.71 H 0.81 H (0.11-0.59) K/uL Eos # (Auto) 0.58 H 0.39 (0.00-0.50) K/uL Baso # (Auto) 0.06 0.05 (0.00-0.20) K/uL Immature Gran # (Auto) 0.02 0.02 (0.01-0.20) K/uL PT 10.9 (9.0-12.0) Seconds INR 1.0 (0.9-1.1) APTT 27 (21-31) Seconds PTT Ratio 1.0 D-Dimer (0-500) ug/L FEU Heparin Anti-Xa, Unfract Pending 0.49 (0.3-0.7) IU/ml Sodium Pending Potassium Pending Chloride Pending Carbon Dioxide Pending Anion Gap Pending BUN Pending Creatinine Pending Est Cr Clr Drug Dosing Pending Est GFR ( Amer) Pending Est GFR (Non-Af Amer) Pending BUN/Creatinine Ratio Pending Glucose Pending Estimat Average Glucose mg/dl Hemoglobin A1c (4.5-5.6) % Calcium Pending Phosphorus Pending Magnesium Pending Homocysteine TSH (0.300-4.500) uIu/ml 11/20/23 11/20/23 Range/Units 11:48 03:41 WBC (4.8-10.8) K/ul RBC (4.20-5.40) M/uL Hgb (12.0-16.0) g/dl Hct (37.0-47.0) % MCV (80.0-100.0) fL MCH (25.0-34.0) pg MCHC (32.0-36.0) g/dL RDW Std Deviation (36.4-46.3) fL RDW Coeff of Tyesha (11.5-14.5) % Plt Count (130-400) K/uL MPV (9.4-12.4) fL Immature Gran % (Auto) % Neut % (Auto) % Lymph % (Auto) % Smyth % (Auto) % Eos % (Auto) % Baso % (Auto) % Neut # (Auto) (1.40-6.50) K/uL Lymph # (Auto) (1.20-3.40) K/uL Smyth # (Auto) (0.11-0.59) K/uL Eos # (Auto) (0.00-0.50) K/uL Baso # (Auto) (0.00-0.20) K/uL Immature Gran # (Auto) (0.01-0.20) K/uL PT (9.0-12.0) Seconds INR (0.9-1.1) APTT (21-31) Seconds PTT Ratio D-Dimer 790 H* (0-500) ug/L FEU Heparin Anti-Xa, Unfract (0.3-0.7) IU/ml Sodium Potassium Chloride Carbon Dioxide Anion Gap BUN Creatinine Est Cr Clr Drug Dosing Est GFR ( Amer) Est GFR (Non-Af Amer) BUN/Creatinine Ratio Glucose Estimat Average Glucose 120 mg/dl Hemoglobin A1c 5.8 H (4.5-5.6) % Calcium Phosphorus Magnesium Homocysteine Pending TSH 1.020 (0.300-4.500) uIu/ml Medications Administered Current Inpatient Medications Acetaminophen (Acetaminophen 325 Mg Tab) 650 mg PO Q4H PRN PRN Reason: PAIN/FEVER>100 Stop: 12/20/23 01:34 Artificial Tears (Artificial Tears) 2 drops OPL TID [facility] Stop: 12/20/23 08:59 Last Admin: 11/20/23 22:26 Dose: 2 drops Aspirin (Aspirin 81 Mg Ectab) 81 mg PO [facility] Stop: 12/20/23 08:59 Last Admin: 11/20/23 07:53 Dose: 81 mg Atorvastatin Calcium (Atorvastatin 40 Mg Tab) 40 mg PO [facility] Stop: 12/20/23 08:59 Last Admin: 11/20/23 07:53 Dose: 40 mg Clopidogrel Bisulfate (Clopidogrel Bisulfate 75 Mg Tab) 75 mg PO [facility] Stop: 12/20/23 13:44 Last Admin: 11/20/23 16:26 Dose: Not Given Docusate Sodium (Docusate Sodium 100 Mg Cap) 100 mg PO [facility] Stop: 12/20/23 08:59 Last Admin: 11/20/23 07:53 Dose: 100 mg Famotidine (Famotidine 20 Mg Tab) 20 mg PO BID [facility] Stop: 12/20/23 08:59 Last Admin: 11/20/23 21:14 Dose: 20 mg Hydralazine HCl (Hydralazine Hcl 20 Mg/Ml Vial) 5 mg IV Q6H PRN PRN Reason: Blood Pressure - High Stop: 12/20/23 17:48 Promethazine HCl (Phenergan) 6.25 mg in 50.25 mls @ 201 mls/hr IV Q6H PRN PRN Reason: Nausea And Vomiting Stop: 12/20/23 00:09 Heparin Sodium/Dextrose (Heparin Sodium/Dextrose) 25,000 units in 500 mls @ 19 mls/hr IV .Q24H [facility]; Protocol Stop: 12/20/23 16:29 Last Admin: 11/20/23 18:40 Dose: 950 units/hr, 19 mls/hr Loratadine (Loratadine 10 Mg Tab) 10 mg PO QAM [facility] Stop: 12/20/23 08:59 Last Admin: 11/20/23 07:53 Dose: 10 mg Mirtazapine (Mirtazapine Tab 15 Mg Tab) 7.5 mg PO HS [facility] Stop: 12/20/23 20:59 Last Admin: 11/20/23 21:14 Dose: 7.5 mg Miscellaneous Information (Pharmacist Discharge Med Rec Consult) 1 each N/A UD PRN PRN Reason: Consult Stop: 12/20/23 01:34 Pantoprazole Sodium (Pantoprazole 40 Mg Tab) 40 mg PO DAILY [facility] Stop: 12/20/23 08:59 Last Admin: 11/20/23 07:53 Dose: 40 mg Polyethylene Glycol (Polyethylene (Miralax) 17 Gm Pack) 17 gm PO BID [facility] Stop: 12/20/23 08:59 Last Admin: 11/20/23 21:15 Dose: 17 gm Sertraline HCl (Sertraline Hcl 50 Mg Tablet) 25 mg PO DAILY [facility] Stop: 12/20/23 08:59 Last Admin: 11/20/23 07:53 Dose: 25 mg
[2023-11-21 07:37] LABS: BUN Creatinine Ratio 17.7 (10-20); Calcium 9.9 mg/dl (8.6-10.3); Creatinine Clr Calc Pharmacy 56.7 ml/min; Est GFR (African American) 95.3 ml/min; Est GFR (Non-African American) 82.2 ml/min; Magnesium 1.9 mg/dl (1.7-2.4); Potassium 3.8 mmol/L (3.5-5.1)
--- NOTE | 2023-11-21 07:57 | Fluoroscopy Report ---
FL video swallow HISTORY: assess for aspiration TECHNIQUE: Video fluoroscopic evaluation of swallowing was performed in the AP and lateral projection s by the speech pathology staff. The patient is fed nectar-thick and thin liquid barium, a barium coa david wafer, and barium pudding. FLUOROSCOPY TIME: 3 minutes and 3 seconds. A cine loop submitted. Ka,r: 14.2 mGy COMPARISON STUDY: None. FINDINGS: There is normal hyoid excursion and epiglottic deflection. Premature spillover resulting in trace silent aspiration with the thin liquid barium. There is also an episode of deep penetration wi th possible trace aspiration with the nectar thick liquid barium due to premature spillover. There is an episode of aspiration during chin tuck removal of the thin liquid barium. IMPRESSION: 1. A few episodes of trace aspiration with the thin liquid and nectar thick liquid barium likely due to premature spillover. 2. Please see the speech pathologist report for detailed findings and recommendations. ACT 112: Negative or not required by law. Electronically signed by: Young Monge M.D. 11/21/2023 7:56 AM
[2023-11-21 08:53] LABS: ANTI-Xa, UFH(UnfractionatedHep 0.75 IU/ml (0.3-0.7)
--- NOTE | 2023-11-21 09:50 | CT Scan Report ---
HEAD CT NONCONTRAST CT DOSE: 625.8 mGy.cm HISTORY: Neuro deficit. cva on iv heparin TECHNIQUE: Multiaxial CT images of the head were performed without the use of intravenous contrast. A utomated exposure control was utilized for this study. A dose lowering technique was utilized adheri ng to the principles of ALARA. Comparison: Head CT 11/19/2023. Findings: The paranasal sinuses and mastoid air cells are clear. The calvarium and skull base are int act. There is no mass, hematoma, or midline shift. White matter hypodensity is nonspecific but sugges tive of microvascular ischemic change. The ventricles and sulci demonstrate mild age-related involuti onal changes. Progressive hypodensity within the posterior limb of the right internal capsule best se en on image 18 measuring approximately 2 cm. This corresponds the patient's known acute infarct. This is similar in size compared to the recent brain MRI. No additional infarcts identified. No evidence for hemorrhagic transformation. Impression: 1. Expected evolution of the 2 cm acute to subacute infarct involving the posterior limb of the right internal capsule. No evidence for hemorrhagic transformation. 2. Atrophy and microvascular ischemic changes again noted. ACT 112: Negative or not required by law. Electronically signed by: Young Monge M.D. 11/21/2023 9:49 AM
--- NOTE | 2023-11-21 12:47 | Pharmacy Report ---
- Date of Service November 21, 2023 - Pharmacy CVA/TIA Medication Review Medications to Prevent Stroke handout has been added to the patients discharge packet. Antiplatelet(s) * clopdiogrel 75mg * aspirin 81mg Cholesterol * High intensity statin: atorvastatin 40 mg daily DVT Prophylaxis * IV Heparin infusion Therapeutic Anticoagulation * No history of Afib/Aflutter noted Type 2 Diabetes * Patient does not have T2DM, A1c 5.8% in prediabetes range, at A1c goal for age group
[2023-11-21 13:54] LABS: ANTI-Xa, UFH(UnfractionatedHep 0.76 IU/ml (0.3-0.7)
[2023-11-21 21:34] LABS: ANTI-Xa, UFH(UnfractionatedHep 0.62 IU/ml (0.3-0.7)
[2023-11-22 01:59] LABS: Hematocrit (blood only) 36.8 % (37.0-47.0); Hemoglobin 11.6 g/dl (12.0-16.0); Mean Corpuscular Hemoglobin 26.9 pg (25.0-34.0); Mean Corpuscular Hgb Conc 31.5 g/dL (32.0-36.0); Mean Corpuscular Volume 85.2 fL (80.0-100.0); Mean Platelet Volume 9.4 fL (9.4-12.4); Platelet Count 288 K/uL (130-400); RDW Coefficient of Variation 13.1 % (11.5-14.5); Red Blood Count 4.32 M/uL (4.20-5.40); White Blood Count 8.03 K/ul (4.8-10.8)
[2023-11-22 02:11] LABS: BUN Creatinine Ratio 22.4 (10-20); Calcium 9.6 mg/dl (8.6-10.3); Creatinine Clr Calc Pharmacy 41.4 ml/min; Est GFR (African American) 72.4 ml/min; Est GFR (Non-African American) 62.5 ml/min; Magnesium 1.9 mg/dl (1.7-2.4); Phosphorus 3.1 mg/dl (2.5-4.9); Potassium 4.1 mmol/L (3.5-5.1)
[2023-11-22 02:23] LABS: ANTI-Xa, UFH(UnfractionatedHep 0.69 IU/ml (0.3-0.7)
--- NOTE | 2023-11-22 07:53 | Hospitalist Progress Note ---
Date of Service November 22, 2023 Assessment & Plan (1) Left-sided weakness: Plan: CVA Brain MRI - 1. There is an oval 2 x 1 x 1 cm focus of diffusion restriction and T2 hyperintensity in the right internal capsule and right frontal lobe deep white matter consistent with acute small vessel infarct. 2. Moderate diffuse cerebral atrophy, similar to previous. Periventricular white matter T2 hyperintensity consistent with chronic small vessel disease. No other acute infarcts or hemorrhage identified. CT head - Moderate atrophy and periventricular white matter low density consistent with chronic small vessel disease and/or senescent changes, similar to previous. No acute large vessel infarct or intracranial hemorrhage is identified. CTA head - No acute findings in the arteries of the head/brain. CTA neck - Calcified plaque in the proximal right internal carotid artery caus ing 50% stenosis. There is 30% stenosis of the proximal left internal carotid artery. Neurology consulted in ED - telestroke - recommend ASA and statin Neurochecks Telemetry Permissive hypertension initially Aspirin and statin Rx for secondary stroke prevention TTE - LV is normal in size. There is mild concentric LVH. LV wall motion is normal. EF 60 to 65%. Grade 1 diastolic dysfunction. Aortic valve sclerosis moderate, without significant aortic valvular stenosis. Mitral valve leaflets are mildly redundant with borderline prolapse of posterior leaflet. There is trace mitral regurg. Overall is mobile but not aneurysmal. No evidence of intracardiac shunt by agitated saline contrast injection. LDL 100 A1c 5.8 % [facility] neurology - Acute right hemispheric ischemic stroke-small vessel-etiology likely HTN Continue frequent neurological assessments Obtain stat CT brain without contrast for any acute neurological decline Continue to monitor/control blood pressure & blood glucose Metabolic workup should include besides hgbA1c, and fasting lipids, also homocysteine, TSH, D Dimer - ordered Recommend DAPT for at least 3 weeks Recommend continue high dose statin therapy indefinitely if tolerated Ok from neurology perspective for VTE prophylaxis PT/OT/SLT to eval and treat D dimer elevated at 790 - discussed w/ neurology as well. obtained doppler of LEs to r/o dvt Doppler c/w RLE DVT - discussed w/ neuro - started IV heparin w/o bolus, can cont. asa and plavix if able to take PO. CT head AM daily while anticoag. neurochecks. This was also discussed w/ family over the phone. - start warfarin - discussed w/ neurology again - will cont. w/ ASA (not plavix), and statin CT head (11/21) - 1. Expected evolution of the 2 cm acute to subacute infarct involving the posterior limb of the right internal capsule. No evidence for hemorrhagic transformation. 2. Atrophy and microvascular ischemic changes again noted. CT head 11/22 - stable Poss. aspiration - on 11/20 AM - per RN pt aspirated when taking AM meds - CXR obtained -negat. - Pt is breathing withoit difficulty , sat. 95% - speech eval consulted Hypertension, patient not on maintenance medications. Cont. to closely monitor. may need to be started on chronic medication. Carotid artery disease on imaging Vascular surgery consulted - Pt with mild R ICA stenosis of 50%. Imaging reviewed by Dr Chowdhury. No indications for vascular surgical intervention at this time. breast cancer left status post surgery SIADH as per records primary hyperparathyroidism, conservative management as per outpatient [facility] [place] note GERD on PPI chronic anemia, hemoglobin at baseline history of Spencer's palsy mood disorder, stable dementia, Delirium precautions DVT prophylaxis per Lovenox subcu DNR as per patient's prior directives as per daughter. Patient family contacts: Mr. Kp Haq (son), contact #[phone] Ms. Jo-Ann Rose (daughter), contact #[phone]. Admission and Anticipated Discharge Date Admission Date: November 20, 2023 Subjective Pt seen in follow up of CVA Currently laying in bed in NAD Daughter present at the bedside yesterday and updated. No headache. Answers appropriately, follows simple commands. Has no complaints. can move extremities for me, however weaker on the left side. She does not remember meeting me / talking to me before. No fever, chills, chest pain. No abd. pain. Found pt soiled in the bed, [employer] notified. Discussed w/ neurology today - continue SCDs while in the hospital, will initia te warfarin today. Will continue only with aspirin and not with Plavix. Continue statin. Review of Systems Review of Systems: All systems reviewed & are unremarkable except as noted in Subjective Physical Exam Physical Exam: GENERAL: WD/WN elderly F in NAD SKIN: Normal color, warm HEENT: [place] palpebral conjunctivae, chronic ptosis left, left facial droop NECK : Supple, no tenderness CHEST : CTA, no tenderness HEART : RRR, no obvious murmurs ABDOMEN: no distention, nontender, + bowel sounds EXTREMITIES : No LE swelling NEUROLOGIC : Awake (hx of dementia), left facial asymmetry, mild dysarthria, moves extremities, weaker on the left , gait and stance not assessed Results & Data Results & Data Vital Signs (Past 12 Hours) Vital Signs Temp Pulse Pulse Resp BP Pulse Ox O2 Del Method 11/22/23 05:58 72 11/22/23 03:01 36.4 C L 76 18 153/80 H 96 Room Air 11/21/23 23:10 36.6 C 81 18 126/72 93 Room Air 11/21/23 22:00 80 Laboratory Results 11/22/23 11/21/23 11/21/23 Range/Units 01:40 20:54 12:22 WBC 8.03 (4.8-10.8) K/ul RBC 4.32 (4.20-5.40) M/uL Hgb 11.6 L (12.0-16.0) g/dl Hct 36.8 L (37.0-47.0) % MCV 85.2 (80.0-100.0) fL MCH 26.9 (25.0-34.0) pg MCHC 31.5 L (32.0-36.0) g/dL RDW Std Deviation 41.0 (36.4-46.3) fL RDW Coeff of Tyesha 13.1 (11.5-14.5) % Plt Count 288 (130-400) K/uL MPV 9.4 (9.4-12.4) fL Heparin Anti-Xa, Unfract 0.69 0.62 0.76 H* (0.3-0.7) IU/ml Sodium 138 (136-145) mmol/L Potassium 4.1 (3.5-5.1) mmol/L Chloride 105 (98-107) mmol/L Carbon Dioxide 29 (21-32) mmol/L Anion Gap 4 (3-11) BUN 19 (6-23) mg/dl Creatinine 0.85 (0.6-1.2) mg/dl Est Cr Clr Drug Dosing 41.4 ml/min Est GFR ( Amer) 72.4 ml/min Est GFR (Non-Af Amer) 62.5 ml/min BUN/Creatinine Ratio 22.4 H (10-20) Glucose 107 H (70-99(Fasting)) mg/dl Calcium 9.6 (8.6-10.3) mg/dl Phosphorus 3.1 (2.5-4.9) mg/dl Magnesium 1.9 (1.7-2.4) mg/dl Homocysteine (<10.4) umol/L 11/21/23 11/20/23 Range/Units 06:38 11:48 WBC (4.8-10.8) K/ul RBC (4.20-5.40) M/uL Hgb (12.0-16.0) g/dl Hct (37.0-47.0) % MCV (80.0-100.0) fL MCH (25.0-34.0) pg MCHC (32.0-36.0) g/dL RDW Std Deviation (36.4-46.3) fL RDW Coeff of Tyesha (11.5-14.5) % Plt Count (130-400) K/uL MPV (9.4-12.4) fL Heparin Anti-Xa, Unfract 0.75 H* (0.3-0.7) IU/ml Sodium (136-145) mmol/L Potassium (3.5-5.1) mmol/L Chloride (98-107) mmol/L Carbon Dioxide (21-32) mmol/L Anion Gap (3-11) BUN (6-23) mg/dl Creatinine (0.6-1.2) mg/dl Est Cr Clr Drug Dosing ml/min Est GFR ( Amer) ml/min Est GFR (Non-Af Amer) ml/min BUN/Creatinine Ratio (10-20) Glucose (70-99(Fasting)) mg/dl Calcium (8.6-10.3) mg/dl Phosphorus (2.5-4.9) mg/dl Magnesium (1.7-2.4) mg/dl Homocysteine 18.1 H (<10.4) umol/L Medications Administered Current Inpatient Medications Acetaminophen (Acetaminophen 325 Mg Tab) 650 mg PO Q4H PRN PRN Reason: PAIN/FEVER>100 Stop: 12/20/23 01:34 Artificial Tears (Artificial Tears) 2 drops OPL TID [facility] Stop: 12/20/23 08:59 Last Admin: 11/21/23 20:18 Dose: 2 drops Aspirin (Aspirin 81 Mg Ectab) 81 mg PO [facility] Stop: 12/20/23 08:59 Last Admin: 11/21/23 07:46 Dose: 81 mg Atorvastatin Calcium (Atorvastatin 40 Mg Tab) 40 mg PO [facility] Stop: 12/20/23 08:59 Last Admin: 11/21/23 07:45 Dose: 40 mg Clopidogrel Bisulfate (Clopidogrel Bisulfate 75 Mg Tab) 75 mg PO [facility] Stop: 12/20/23 13:44 Last Admin: 11/21/23 07:45 Dose: 75 mg Docusate Sodium (Docusate Sodium 100 Mg Cap) 100 mg PO [facility] Stop: 12/20/23 08:59 Last Admin: 11/21/23 07:45 Dose: 100 mg Famotidine (Famotidine 20 Mg Tab) 20 mg PO BID [facility] Stop: 12/20/23 08:59 Last Admin: 11/21/23 20:18 Dose: 20 mg Hydralazine HCl (Hydralazine Hcl 20 Mg/Ml Vial) 5 mg IV Q6H PRN PRN Reason: Blood Pressure - High Stop: 12/20/23 17:48 Promethazine HCl (Phenergan) 6.25 mg in 50.25 mls @ 201 mls/hr IV Q6H PRN PRN Reason: Nausea And Vomiting Stop: 12/20/23 00:09 Heparin Sodium/Dextrose (Heparin Sodium/Dextrose) 25,000 units in 500 mls @ 17 mls/hr IV .Q24H [facility]; Protocol Stop: 12/20/23 16:29 Last Titration: 11/22/23 06:49 Dose: 850 units/hr, 17 mls/hr Loratadine (Loratadine 10 Mg Tab) 10 mg PO [facility] Stop: 12/20/23 08:59 Last Admin: 11/21/23 07:45 Dose: 10 mg Miconazole Nitrate (Miconazole Nitrate Powder 85 Gm) 1 appln EXT PRN PRN PRN Reason: Affected Skin Folds Stop: 12/21/23 10:02 Mirtazapine (Mirtazapine Tab 15 Mg Tab) 7.5 mg PO [facility] Stop: 12/20/23 20:59 Last Admin: 11/21/23 20:18 Dose: 7.5 mg Pantoprazole Sodium (Pantoprazole 40 Mg Tab) 40 mg PO DAILY [facility] Stop: 12/20/23 08:59 Last Admin: 11/21/23 07:46 Dose: 40 mg Polyethylene Glycol (Polyethylene (Miralax) 17 Gm Pack) 17 gm PO BID [facility] Stop: 12/20/23 08:59 Last Admin: 11/21/23 20:18 Dose: 17 gm Sertraline HCl (Sertraline Hcl 50 Mg Tablet) 25 mg PO DAILY [facility] Stop: 12/20/23 08:59 Last Admin: 11/21/23 07:45 Dose: 25 mg
--- NOTE | 2023-11-22 09:39 | CT Scan Report ---
CT SCAN OF THE BRAIN WITHOUT IV CONTRAST CLINICAL HISTORY: Stroke. COMPARISON STUDY: CT of the brain dated 11/21/2023. MRI of the brain dated 11/20/2023. TECHNIQUE: Unenhanced axial CT scan of the brain is performed from the vertex to the skull base. A do se lowering technique was utilized adhering to the principles of ALARA. CT DOSE: 1624.85 mGy.cm FINDINGS: Brain parenchyma: There is a subacute/evolving lacunar infarct in the right basal ganglia. There is a ge-related involutional change noting moderate to advanced confluent subcortical and periventricular microangiopathic disease. There is no hemorrhage, mass effect, or evidence of acute territorial ische gurdeep by CT criteria. Olvera-white matter differentiation is preserved. No extra-axial fluid collection i s seen. Ventricles, sulci, cisterns: Prominent secondary to involutional change. Intracranial vasculature: There is atherosclerotic calcification of the cavernous carotid and vertebr al arteries. Calvarium: Unremarkable. Sinuses and mastoids: The paranasal sinuses are clear. The mastoid air cells are well pneumatized. Orbits: The bony orbits are grossly intact. There are bilateral ocular lens implants. IMPRESSION: 1. There is no hemorrhage, mass effect, or evidence of acute territorial ischemia by CT criteria. 2. A subacute/evolving lacunar infarct is again seen in the right basal ganglia ACT 112: Negative or not required by law. Electronically signed by: Abdoulaye Brumfield M.D. 11/22/2023 9:36 AM
[2023-11-22 09:47] LABS: ANTI-Xa, UFH(UnfractionatedHep 0.71 IU/ml (0.3-0.7)
[2023-11-22] MEDS: MICONAZOLE NITRATE POWDER 85 GM EXT PRN (10:20)
--- NOTE | 2023-11-22 13:22 | Communication Note ---
Date of Service: November 22, 2023 83 yo female found to have deep right hemispheric small vessel ischemic stroke- etiology likely HTN Found to have elevated Ddimer and subsequently diagnosed with DVT She was initiated on full anticoagulation via continue IV heparin for DVT She has undergone CTA head and neck revealing very little ICAD but notable calcified carotid stenosis without flow limitation Recommend continue ASA as monotherapy due to ongoing full anticoagulation deferring DAPT at this time Recommend high dose statin therapy indefinitely as secondary stroke prevention Continue to monitor neurological assessments closely Obtain stat CT brain without contrast for any acute neurological decline Recommend daily CT brain without contrast while fully anticoagulated during hosp italization Recommend follow up outpatient Neurology
[2023-11-22] MEDS: lisinopril 5 MG TAB PO SCH (15:26)
[2023-11-22] MEDS: WARFARIN SOD 4 MG TAB PO SCH (15:26)
[2023-11-22] MEDS: ADVANCED PROBIOTIC 1250 MG CAPSULE PO SCH (15:26)
[2023-11-22 17:05] LABS: ANTI-Xa, UFH(UnfractionatedHep 0.53 IU/ml (0.3-0.7)
[2023-11-22] MEDS: LACTOBACILLUS ACIDOPHILUS 1 GM PACK PO SCH (20:19)
[2023-11-23] MEDS ORDERED: HEPARIN 100 UNIT/ML 5ML FLUSH FLUSH PRN (08:02)
--- NOTE | 2023-11-23 08:18 | Hospitalist Progress Note ---
Date of Service November 23, 2023 Assessment & Plan (1) Left-sided weakness: Plan: CVA Brain MRI - 1. There is an oval 2 x 1 x 1 cm focus of diffusion restriction and T2 hyperintensity in the right internal capsule and right frontal lobe deep white matter consistent with acute small vessel infarct. 2. Moderate diffuse cerebral atrophy, similar to previous. Periventricular white matter T2 hyperintensity consistent with chronic small vessel disease. No other acute infarcts or hemorrhage identified. CT head - Moderate atrophy and periventricular white matter low density consistent with chronic small vessel disease and/or senescent changes, similar to previous. No acute large vessel infarct or intracranial hemorrhage is identified. CTA head - No acute findings in the arteries of the head/brain. CTA neck - Calcified plaque in the proximal right internal carotid artery caus ing 50% stenosis. There is 30% stenosis of the proximal left internal carotid artery. Neurology consulted in ED - telestroke - recommend ASA and statin Neurochecks Telemetry Permissive hypertension initially Aspirin and statin Rx for secondary stroke prevention TTE - LV is normal in size. There is mild concentric LVH. LV wall motion is normal. EF 60 to 65%. Grade 1 diastolic dysfunction. Aortic valve sclerosis moderate, without significant aortic valvular stenosis. Mitral valve leaflets are mildly redundant with borderline prolapse of posterior leaflet. There is trace mitral regurg. Overall is mobile but not aneurysmal. No evidence of intracardiac shunt by agitated saline contrast injection. LDL 100 A1c 5.8 % [facility] [address] neurology - Acute right hemispheric ischemic stroke-small vessel-etiology likely HTN Continue frequent neurological assessments Obtain stat CT brain without contrast for any acute neurological decline Continue to monitor/control blood pressure & blood glucose Metabolic workup should include besides hgbA1c, and fasting lipids, also homocysteine, TSH, D Dimer - ordered Recommend DAPT for at least 3 weeks Recommend continue high dose statin therapy indefinitely if tolerated Ok from neurology perspective for VTE prophylaxis PT/OT/SLT to eval and treat D dimer elevated at 790 - discussed w/ neurology as well. obtained doppler of LEs to r/o dvt Doppler c/w RLE DVT - discussed w/ neuro - started IV heparin w/o bolus, can cont. asa. CT head AM daily while anticoag. neurochecks. This was also discussed w/ family over the phone. - started warfarin CT head (11/21) - 1. Expected evolution of the 2 cm acute to subacute infarct involving the posterior limb of the right internal capsule. No evidence for hemorrhagic transformation. 2. Atrophy and microvascular ischemic changes again noted. CT head 11/22 - stable Poss. aspiration - on 11/20 AM - per RN pt aspirated when taking AM meds - CXR obtained -negat. - Pt is breathing without difficulty , sat. 95% - speech eval consulted Hypertension, patient not on maintenance medications. Started lisinopril 5 mg daily Cont. to closely monitor Carotid artery disease on imaging Vascular surgery consulted - Pt with mild R ICA stenosis of 50%. Imaging reviewed by Dr Chowdhury. No indications for vascular surgical intervention at this time. breast cancer left status post surgery SIADH as per records primary hyperparathyroidism, conservative management as per outpatient [facility] Endocrinology note GERD on PPI chronic anemia, hemoglobin at baseline history of Spencer's palsy mood disorder, stable dementia, Delirium precautions DVT prophylaxis per Lovenox subcu DNR as per patient's prior directives as per daughter. Patient family contacts: Mr. Kp Haq (son), contact #[phone] Ms. Jo-Ann Rose (daughter), contact #[phone]. Admission and Anticipated Discharge Date Admission Date: November 20, 2023 Subjective Pt seen in follow up of CVA Currently laying in bed in NAD No headache. Answers simple questions appropriately, follows simple commands. Has no complaints. can move extremities for me, however weaker on the left side. She does not remember meeting me / talking to me before. No fever, chills, chest pain. No abd. pain. Discussed w/ neurology yesterday - started warfarin. Will continue only with aspirin and not with Plavix. Continue statin. CT head daily while inpt. Review of Systems Review of Systems: All systems reviewed & are unremarkable except as noted in Subjective Physical Exam Physical Exam: GENERAL: WD/WN elderly F in NAD SKIN: Normal color, warm HEENT: [place] palpebral conjunctivae, chronic ptosis left, left facial droop NECK : Supple, no tenderness CHEST : CTA, no tenderness HEART : RRR, no obvious murmurs ABDOMEN: no distention, nontender, + bowel sounds EXTREMITIES : No LE swelling NEUROLOGIC : Awake (hx of dementia), left facial asymmetry, mild dysarthria, moves extremities, weaker on the left , gait and stance not assessed Results & Data Results & Data Vital Signs (Past 12 Hours) Vital Signs Temp Pulse Pulse Resp BP Pulse Ox O2 Del Method 11/23/23 07:26 36.7 C 76 18 162/85 H 96 Room Air 11/23/23 07:07 Room Air 11/23/23 06:09 74 11/23/23 03:14 36.6 C 75 16 154/86 H 96 Room Air 11/23/23 00:03 81 11/22/23 23:13 36.5 C 76 18 116/75 94 Room Air Laboratory Results 11/23/23 11/22/23 11/22/23 Range/Units 09:35 23:28 16:19 WBC 6.41 (4.8-10.8) K/ul RBC 4.51 (4.20-5.40) M/uL Hgb 12.1 (12.0-16.0) g/dl Hct 38.3 (37.0-47.0) % MCV 84.9 (80.0-100.0) fL MCH 26.8 (25.0-34.0) pg MCHC 31.6 L (32.0-36.0) g/dL RDW Std Deviation 41.1 (36.4-46.3) fL RDW Coeff of Tyesha 13.2 (11.5-14.5) % Plt Count 267 (130-400) K/uL MPV 9.5 (9.4-12.4) fL PT 11.6 (9.0-12.0) Seconds INR 1.1 (0.9-1.1) Heparin Anti-Xa, Unfract 0.62 0.60 0.53 (0.3-0.7) IU/ml Sodium 138 (136-145) mmol/L Potassium 3.8 (3.5-5.1) mmol/L Chloride 104 (98-107) mmol/L Carbon Dioxide 28 (21-32) mmol/L Anion Gap 6 (3-11) BUN 13 (6-23) mg/dl Creatinine 0.74 (0.6-1.2) mg/dl Est Cr Clr Drug Dosing 44.0 ml/min Est GFR ( Amer) 85.6 ml/min Est GFR (Non-Af Amer) 73.9 ml/min BUN/Creatinine Ratio 17.6 (10-20) Glucose 128 H (70-99(Fasting)) mg/dl Calcium 9.9 (8.6-10.3) mg/dl Phosphorus 3.6 (2.5-4.9) mg/dl Magnesium 2.0 (1.7-2.4) mg/dl Medications Administered Current Inpatient Medications Acetaminophen (Acetaminophen 325 Mg Tab) 650 mg PO Q4H PRN PRN Reason: PAIN/FEVER>100 Stop: 12/20/23 01:34 Artificial Tears (Artificial Tears) 2 drops OPL TID [facility] Stop: 12/20/23 08:59 Last Admin: 11/22/23 20:19 Dose: 2 drops Aspirin (Aspirin 81 Mg Ectab) 81 mg PO [facility] Stop: 12/20/23 08:59 Last Admin: 11/22/23 10:18 Dose: 81 mg Atorvastatin Calcium (Atorvastatin 40 Mg Tab) 40 mg PO [facility] Stop: 12/20/23 08:59 Last Admin: 11/22/23 10:18 Dose: 40 mg Docusate Sodium (Docusate Sodium 100 Mg Cap) 100 mg PO [facility] Stop: 12/20/23 08:59 Last Admin: 11/22/23 10:20 Dose: 100 mg Famotidine (Famotidine 20 Mg Tab) 20 mg PO BID [facility] Stop: 12/20/23 08:59 Last Admin: 11/22/23 20:19 Dose: 20 mg Heparin Sodium (Porcine) (Heparin 100 Unit/Ml 5ml Flush) 5 ml FLUSH PRN PRN PRN Reason: Flush Stop: 12/23/23 08:01 Hydralazine HCl (Hydralazine Hcl 20 Mg/Ml Vial) 5 mg IV Q6H PRN PRN Reason: Blood Pressure - High Stop: 12/20/23 17:48 Promethazine HCl (Phenergan) 6.25 mg in 50.25 mls @ 201 mls/hr IV Q6H PRN PRN Reason: Nausea And Vomiting Stop: 12/20/23 00:09 Heparin Sodium/Dextrose (Heparin Sodium/Dextrose) 25,000 units in 500 mls @ 16 mls/hr IV .Q24H [facility]; Protocol Stop: 12/20/23 16:29 Last Titration: 11/23/23 06:48 Dose: 800 units/hr, 16 mls/hr Lactobacillus Acidophilus (Lactobacillus Acidophilus 1 Gm Pack) 1 gm PO BID [facility] Stop: 12/22/23 20:59 Last Admin: 11/22/23 20:19 Dose: 1 gm Lisinopril (Lisinopril 5 Mg Tab) 5 mg PO QAM [facility] Stop: 12/22/23 14:29 Last Admin: 11/22/23 15:26 Dose: 5 mg Loratadine (Loratadine 10 Mg Tab) 10 mg PO QAM [facility] Stop: 12/20/23 08:59 Last Admin: 11/22/23 10:18 Dose: 10 mg Miconazole Nitrate (Miconazole Nitrate Powder 85 Gm) 1 appln EXT PRN PRN PRN Reason: Affected Skin Folds Stop: 12/21/23 10:02 Last Admin: 11/22/23 10:20 Dose: 1 appln Mirtazapine (Mirtazapine Tab 15 Mg Tab) 7.5 mg PO HS [facility] Stop: 12/20/23 20:59 Last Admin: 11/22/23 20:18 Dose: 7.5 mg Pantoprazole Sodium (Pantoprazole 40 Mg Tab) 40 mg PO DAILY [facility] Stop: 12/20/23 08:59 Last Admin: 11/22/23 10:19 Dose: 40 mg Polyethylene Glycol (Polyethylene (Miralax) 17 Gm Pack) 17 gm PO BID [facility] Stop: 12/20/23 08:59 Last Admin: 11/22/23 10:19 Dose: Not Given Sertraline HCl (Sertraline Hcl 50 Mg Tablet) 25 mg PO DAILY [facility] Stop: 12/20/23 08:59 Last Admin: 11/22/23 10:18 Dose: 25 mg Warfarin Sodium (Warfarin Sod 4 Mg Tab) 4 mg PO DAILY@1600 [facility] Stop: 12/22/23 15:59 Last Admin: 11/22/23 15:26 Dose: 4 mg
[2023-11-23 09:59] LABS: Hematocrit (blood only) 38.3 % (37.0-47.0); Hemoglobin 12.1 g/dl (12.0-16.0); Mean Corpuscular Hemoglobin 26.8 pg (25.0-34.0); Mean Corpuscular Hgb Conc 31.6 g/dL (32.0-36.0); Mean Corpuscular Volume 84.9 fL (80.0-100.0); Mean Platelet Volume 9.5 fL (9.4-12.4); Platelet Count 267 K/uL (130-400); RDW Coefficient of Variation 13.2 % (11.5-14.5); RDW Standard Deviation 41.1 fL (36.4-46.3); Red Blood Count 4.51 M/uL (4.20-5.40); White Blood Count 6.41 K/ul (4.8-10.8)
[2023-11-23 10:16] LABS: BUN Creatinine Ratio 17.6 (10-20); Calcium 9.9 mg/dl (8.6-10.3); Est GFR (African American) 85.6 ml/min; Est GFR (Non-African American) 73.9 ml/min; Phosphorus 3.6 mg/dl (2.5-4.9); Potassium 3.8 mmol/L (3.5-5.1)
[2023-11-23 10:57] LABS: ANTI-Xa, UFH(UnfractionatedHep 0.62 IU/ml (0.3-0.7); INR 1.1 (0.9-1.1); Prothrombin Time 11.6 Seconds (9.0-12.0)
--- NOTE | 2023-11-23 11:25 | CT Scan Report ---
CT head/brain wo con CLINICAL HISTORY: 83 years-old Female with follow up CVA on iv heparin. Acute strokelike symptoms TECHNIQUE: Multiple axial CT images of the head were obtained without contrast. A dose lowering tech nique was utilized adhering to the principles of ALARA. CT DOSE: 625.8 mGy.cm COMPARISON: 11/22/[address], brain MRI 11/20/2023 FINDINGS: No acute intracranial hemorrhage, midline shift, intracranial mass, hydrocephalus, or abnormal extra- axial collection. Involutional changes with chronic microvascular ischemic disease. Involving infarct within the right frontal lobe basal ganglia/internal capsule similar to yesterday's exam. The calvarium is intact. The paranasal sinuses, mastoid air cells, and middle ear cavities are clear . IMPRESSION: 1. No acute intracranial hemorrhage or midline shift. 2. Unchanged appearance of the evolving acute/subacute (greater than 72 hours old) infarct within the right basal ganglia ACT 112: Negative or not required by law. The above report was generated using voice recognition software. It may contain grammatical, syntax o r spelling errors. Electronically signed by: Prashanth Morales M.D. 11/23/2023 11:23 AM
[2023-11-23] MEDS: ACETAMINOPHEN 325 MG TAB PO PRN (15:13)
--- NOTE | 2023-11-23 17:27 | CT Scan Report ---
CT head/brain wo con CLINICAL HISTORY: 83 years-old Female with Headache, on iv heparin, hx of CVA. Acute headache TECHNIQUE: Multiple axial CT images of the head were obtained without contrast. A dose lowering tech nique was utilized adhering to the principles of ALARA. CT DOSE: 547.75 mGy.cm COMPARISON: Head CT of same day brain MRI 11/20/2023 FINDINGS: No acute intracranial hemorrhage, midline shift, intracranial mass, hydrocephalus, or abnormal extra- axial collection. Involutional changes with chronic microvascular ischemic disease. Involving infarct within the right frontal lobe basal ganglia/internal capsule similar to yesterday's exam. The calvar ium is intact. The paranasal sinuses, mastoid air cells, and middle ear cavities are clear. IMPRESSION: 1. No acute intracranial hemorrhage or midline shift. 2. Unchanged appearance of the evolving acute/subacute (greater than 72 hours old) infarct within the right basal ganglia. ACT 112: Negative or not required by law. The above report was generated using voice recognition software. It may contain grammatical, syntax o r spelling errors. Electronically signed by: Prashanth Morales M.D. 11/23/2023 5:25 PM
[2023-11-24 08:00] LABS: Hematocrit (blood only) 38.3 % (37.0-47.0); Hemoglobin 12.2 g/dl (12.0-16.0); Mean Corpuscular Hemoglobin 26.8 pg (25.0-34.0); Mean Corpuscular Hgb Conc 31.9 g/dL (32.0-36.0); Mean Corpuscular Volume 84.2 fL (80.0-100.0); Mean Platelet Volume 9.5 fL (9.4-12.4); Platelet Count 270 K/uL (130-400); RDW Coefficient of Variation 13.3 % (11.5-14.5); Red Blood Count 4.55 M/uL (4.20-5.40); White Blood Count 7.35 K/ul (4.8-10.8)
[2023-11-24 08:04] LABS: BUN Creatinine Ratio 20.5 (10-20); Calcium 10.1 mg/dl (8.6-10.3); Creatinine Clr Calc Pharmacy 41.7 ml/min; Est GFR (African American) 80.3 ml/min; Est GFR (Non-African American) 69.3 ml/min; Phosphorus 3.7 mg/dl (2.5-4.9); Potassium 3.9 mmol/L (3.5-5.1)
[2023-11-24 08:16] LABS: ANTI-Xa, UFH(UnfractionatedHep 0.66 IU/ml (0.3-0.7); INR 1.5 (0.9-1.1); Prothrombin Time 15.8 Seconds (9.0-12.0)
--- NOTE | 2023-11-24 08:45 | Hospitalist Progress Note ---
Date of Service November 24, 2023 Assessment & Plan (1) Left-sided weakness: Plan: CVA Brain MRI - 1. There is an oval 2 x 1 x 1 cm focus of diffusion restriction and T2 hyperintensity in the right internal capsule and right frontal lobe deep white matter consistent with acute small vessel infarct. 2. Moderate diffuse cerebral atrophy, similar to previous. Periventricular white matter T2 hyperintensity consistent with chronic small vessel disease. No other acute infarcts or hemorrhage identified. CT head - Moderate atrophy and periventricular white matter low density consistent with chronic small vessel disease and/or senescent changes, similar to previous. No acute large vessel infarct or intracranial hemorrhage is identified. CTA head - No acute findings in the arteries of the head/brain. CTA neck - Calcified plaque in the proximal right internal carotid artery caus ing 50% stenosis. There is 30% stenosis of the proximal left internal carotid artery. Neurology consulted in ED - telestroke - recommend ASA and statin Neurochecks Telemetry Permissive hypertension initially Aspirin and statin Rx for secondary stroke prevention TTE - LV is normal in size. There is mild concentric LVH. LV wall motion is normal. EF 60 to 65%. Grade 1 diastolic dysfunction. Aortic valve sclerosis moderate, without significant aortic valvular stenosis. Mitral valve leaflets are mildly redundant with borderline prolapse of posterior leaflet. There is trace mitral regurg. Overall is mobile but not aneurysmal. No evidence of intracardiac shunt by agitated saline contrast injection. LDL 100 A1c 5.8 % [facility] neurology - Acute right hemispheric ischemic stroke-small vessel-etiology likely HTN Continue frequent neurological assessments Obtain stat CT brain without contrast for any acute neurological decline Continue to monitor/control blood pressure & blood glucose Metabolic workup should include besides hgbA1c, and fasting lipids, also homocysteine, TSH, D Dimer - ordered Recommend DAPT for at least 3 weeks Recommend continue high dose statin therapy indefinitely if tolerated Ok from neurology perspective for VTE prophylaxis PT/OT/SLT to eval and treat D dimer elevated at 790 - discussed w/ neurology as well. obtained doppler of LEs to r/o dvt Doppler c/w RLE DVT - discussed w/ neuro - started IV heparin w/o bolus, can cont. asa. CT head AM daily while anticoag. neurochecks. This was also discussed w/ family over the phone. - started warfarin CT head (11/21) - 1. Expected evolution of the 2 cm acute to subacute infarct involving the posterior limb of the right internal capsule. No evidence for hemorrhagic transformation. 2. Atrophy and microvascular ischemic changes again noted. CT head 11/22 - - stable Poss. aspiration - on 11/20 AM - per RN pt aspirated when taking AM meds - CXR obtained -negat. - Pt is breathing without difficulty , sat. 95% - speech eval consulted Hypertension, patient not on maintenance medications. Started lisinopril 5 mg daily Cont. to closely monitor Carotid artery disease on imaging Vascular surgery consulted - Pt with mild R ICA stenosis of 50%. Imaging reviewed by Dr Chowdhury. No indications for vascular surgical intervention at this time. breast cancer left status post surgery SIADH as per records primary hyperparathyroidism, conservative management as per outpatient [facility] Endocrinology note GERD on PPI chronic anemia, hemoglobin at baseline history of Spencer's palsy mood disorder, stable dementia, Delirium precautions DVT prophylaxis per Lovenox subcu DNR as per patient's prior directives as per daughter. Patient family contacts: Mr. Kp Haq (son), contact #[phone] Ms. Jo-Ann Rose (daughter), contact #[phone]. Admission and Anticipated Discharge Date Admission Date: November 20, 2023 Subjective Pt seen in follow up of CVA Currently laying in bed in NAD No headache. Answers simple questions appropriately, follows simple commands. Has no complaints. can move extremities for me, however weaker on the left side. She does not remember meeting me / talking to me before. No fever, chills, chest pain. No abd. pain. Discussed w/ neurology previously - started warfarin. Will continue only with aspirin and not with Plavix. Continue statin. CT head daily while inpt. Pt's daughter present at the bedside today and updated. Review of Systems Review of Systems: All systems reviewed & are unremarkable except as noted in Subjective Physical Exam Physical Exam: GENERAL: WD/WN elderly F in NAD SKIN: Normal color, warm HEENT: [place] palpebral conjunctivae, chronic ptosis left, left facial droop NECK : Supple, no tenderness CHEST : CTA, no tenderness HEART : RRR, no obvious murmurs ABDOMEN: no distention, nontender, + bowel sounds EXTREMITIES : No LE swelling NEUROLOGIC : Awake (hx of dementia), left facial asymmetry, mild dysarthria, moves extremities, weaker on the left , gait and stance not assessed Results & Data Results & Data Vital Signs (Past 12 Hours) Vital Signs Temp Pulse Pulse Resp BP Pulse Ox O2 Del Method 11/24/23 07:20 36.3 C L 73 18 145/79 H 94 Room Air 11/24/23 07:13 Room Air 11/24/23 05:52 67 11/24/23 03:08 36.4 C L 71 18 132/79 94 Room Air 11/24/23 02:44 72 11/23/23 23:30 36.3 C L 73 18 108/71 93 Room Air Laboratory Results 11/24/23 11/23/23 Range/Units 07:36 09:35 WBC 7.35 6.41 (4.8-10.8) K/ul RBC 4.55 4.51 (4.20-5.40) M/uL Hgb 12.2 12.1 (12.0-16.0) g/dl Hct 38.3 38.3 (37.0-47.0) % MCV 84.2 84.9 (80.0-100.0) fL MCH 26.8 26.8 (25.0-34.0) pg MCHC 31.9 L 31.6 L (32.0-36.0) g/dL RDW Std Deviation 41.0 41.1 (36.4-46.3) fL RDW Coeff of Tyseha 13.3 13.2 (11.5-14.5) % Plt Count 270 267 (130-400) K/uL MPV 9.5 9.5 (9.4-12.4) fL PT 15.8 H 11.6 (9.0-12.0) Seconds INR 1.5 H 1.1 (0.9-1.1) Heparin Anti-Xa, Unfract 0.66 0.62 (0.3-0.7) IU/ml Sodium 138 138 (136-145) mmol/L Potassium 3.9 3.8 (3.5-5.1) mmol/L Chloride 103 104 (98-107) mmol/L Carbon Dioxide 30 28 (21-32) mmol/L Anion Gap 5 6 (3-11) BUN 16 13 (6-23) mg/dl Creatinine 0.78 0.74 (0.6-1.2) mg/dl Est Cr Clr Drug Dosing 41.7 44.0 ml/min Est GFR ( Amer) 80.3 85.6 ml/min Est GFR (Non-Af Amer) 69.3 73.9 ml/min BUN/Creatinine Ratio 20.5 H 17.6 (10-20) Glucose 100 H 128 H (70-99(Fasting)) mg/dl Calcium 10.1 9.9 (8.6-10.3) mg/dl Phosphorus 3.7 3.6 (2.5-4.9) mg/dl Magnesium 2.0 2.0 (1.7-2.4) mg/dl Medications Administered Current Inpatient Medications Acetaminophen (Acetaminophen 325 Mg Tab) 650 mg PO Q4H PRN PRN Reason: PAIN/FEVER>100 Stop: 12/20/23 01:34 Last Admin: 11/23/23 20:12 Dose: 650 mg Artificial Tears (Artificial Tears) 2 drops OPL TID [facility] Stop: 12/20/23 08:59 Last Admin: 11/24/23 08:16 Dose: 2 drops Aspirin ([facility]spirin 81 Mg [facility]ctab) [facility]: 12/20/23 08:59 Last Admin: 11/24/23 08:17 Dose: 81 mg Atorvastatin Calcium (Atorvastatin 40 Mg Tab) 40 mg PO [facility] Stop: 12/20/23 08:59 Last Admin: 11/24/23 08:17 Dose: 40 mg Docusate Sodium (Docusate Sodium 100 Mg Cap) 100 mg PO [facility] Stop: 12/20/23 08:59 Last Admin: 11/24/23 08:21 Dose: 100 mg Famotidine (Famotidine 20 Mg Tab) 20 mg PO BID [facility] Stop: 12/20/23 08:59 Last Admin: 11/24/23 08:16 Dose: 20 mg Heparin Sodium (Porcine) (Heparin 100 Unit/Ml 5ml Flush) 5 ml FLUSH PRN PRN PRN Reason: Flush Stop: 12/23/23 08:01 Hydralazine HCl (Hydralazine Hcl 20 Mg/Ml Vial) 5 mg IV Q6H PRN PRN Reason: Blood Pressure - High Stop: 12/20/23 17:48 Promethazine HCl (Phenergan) 6.25 mg in 50.25 mls @ 201 mls/hr IV Q6H PRN PRN Reason: Nausea And Vomiting Stop: 12/20/23 00:09 Heparin Sodium/Dextrose (Heparin Sodium/Dextrose) 25,000 units in 500 mls @ 16 mls/hr IV .Q24H [facility]; Protocol Stop: 12/20/23 16:29 Last Titration: 11/23/23 18:52 Dose: 800 units/hr, 16 mls/hr Lactobacillus Acidophilus (Lactobacillus Acidophilus 1 Gm Pack) 1 gm PO BID [facility] Stop: 12/22/23 20:59 Last Admin: 11/24/23 08:16 Dose: 1 gm Lisinopril (Lisinopril 5 Mg Tab) 5 mg PO QAM [facility] Stop: 12/22/23 14:29 Last Admin: 11/24/23 08:17 Dose: 5 mg Loratadine (Loratadine 10 Mg Tab) 10 mg PO QAM [facility] Stop: 12/20/23 08:59 Last Admin: 11/24/23 08:17 Dose: 10 mg Miconazole Nitrate (Miconazole Nitrate Powder 85 Gm) 1 appln EXT PRN PRN PRN Reason: Affected Skin Folds Stop: 12/21/23 10:02 Last Admin: 11/22/23 10:20 Dose: 1 appln Mirtazapine (Mirtazapine Tab 15 Mg Tab) 7.5 mg PO HS [facility] Stop: 12/20/23 20:59 Last Admin: 11/23/23 20:11 Dose: 7.5 mg Pantoprazole Sodium (Pantoprazole 40 Mg Tab) 40 mg PO DAILY [facility] Stop: 12/20/23 08:59 Last Admin: 11/24/23 08:17 Dose: 40 mg Polyethylene Glycol (Polyethylene (Miralax) 17 Gm Pack) 17 gm PO BID [facility] Stop: 12/20/23 08:59 Last Admin: 11/22/23 10:19 Dose: Not Given Sertraline HCl (Sertraline Hcl 50 Mg Tablet) 25 mg PO DAILY [facility] Stop: 12/20/23 08:59 Last Admin: 11/24/23 08:17 Dose: 25 mg Warfarin Sodium (Warfarin Sod 3 Mg Tab) 3 mg PO DAILY@1600 [facility] Stop: 12/24/23 15:59
--- NOTE | 2023-11-24 09:06 | CT Scan Report ---
CT OF THE HEAD WITHOUT CONTRAST CLINICAL HISTORY: follow up CVA on iv heparin COMPARISON STUDY: MRI of the brain November 20, 2023. Head CT November 23, 2023. CT DOSE: 625.8 mGy.cm TECHNIQUE: Helical axial images of the head were obtained without IV contrast. Automated exposure con trol was utilized for the study. A dose lowering technique was utilized adhering to the principles o f ALARA. FINDINGS: No acute intracranial hemorrhage midline shift or mass effect is present. Ventricular syste m is stable. Basal cisterns are patent. There are no extra-axial collections. The 2.3 cm subacute inf arct within the right internal capsule is unchanged in appearance since prior exam. White matter hypo densities favor small vessel disease. No change in appearance of the brain. IMPRESSION: 1. No acute intracranial hemorrhage. 2. No change in appearance of the 2.3 cm subacute infarct within the right internal capsule since [place] or head CT. ACT 112: Negative or not required by law. Electronically signed by: Sp Pretty M.D. 11/24/2023 9:03 AM
--- NOTE | 2023-11-24 09:07 | XRay Report ---
XR chest 1V portable CLINICAL HISTORY: r/o aspiration COMPARISON STUDY: Chest radiograph November 20, 2023. FINDINGS: Elevation of the right hemidiaphragm is unchanged. There is no pneumothorax. A trace left p leural effusion. Right basilar opacity favors atelectasis. There is no consolidation to suggest pneum onia. Mild cardiomegaly. No evidence for pulmonary edema. Abdominal surgical clips are incidentally n oted. IMPRESSION: 1. No consolidation to suggest pneumonia or aspiration pneumonitis. 2. Trace left pleural effusion. ACT 112: Negative or not required by law. Electronically signed by: Sp Pretty M.D. 11/24/2023 9:05 AM
[2023-11-24] MEDS: WARFARIN SOD 3 MG TAB PO SCH (15:20)
[2023-11-25 07:58] LABS: Hematocrit (blood only) 34.3 % (37.0-47.0); Hemoglobin 10.7 g/dl (12.0-16.0); Mean Corpuscular Hemoglobin 26.4 pg (25.0-34.0); Mean Corpuscular Hgb Conc 31.2 g/dL (32.0-36.0); Mean Corpuscular Volume 84.5 fL (80.0-100.0); Mean Platelet Volume 9.5 fL (9.4-12.4); Platelet Count 243 K/uL (130-400); RDW Coefficient of Variation 13.4 % (11.5-14.5); RDW Standard Deviation 41.7 fL (36.4-46.3); Red Blood Count 4.06 M/uL (4.20-5.40)
[2023-11-25 08:21] LABS: ANTI-Xa, UFH(UnfractionatedHep 0.62 IU/ml (0.3-0.7)
[2023-11-25 08:23] LABS: BUN Creatinine Ratio 19.5 (10-20); Calcium 9.7 mg/dl (8.6-10.3); Creatinine Clr Calc Pharmacy 37.4 ml/min; Est GFR (African American) 70.4 ml/min; Est GFR (Non-African American) 60.7 ml/min; Phosphorus 3.5 mg/dl (2.5-4.9); Potassium 3.9 mmol/L (3.5-5.1)
--- NOTE | 2023-11-25 08:36 | Hospitalist Progress Note ---
Date of Service November 25, 2023 Assessment & Plan (1) Left-sided weakness: Plan: CVA Brain MRI - 1. There is an oval 2 x 1 x 1 cm focus of diffusion restriction and T2 hyperintensity in the right internal capsule and right frontal lobe deep white matter consistent with acute small vessel infarct. 2. Moderate diffuse cerebral atrophy, similar to previous. Periventricular white matter T2 hyperintensity consistent with chronic small vessel disease. No other acute infarcts or hemorrhage identified. CT head - Moderate atrophy and periventricular white matter low density consistent with chronic small vessel disease and/or senescent changes, similar to previous. No acute large vessel infarct or intracranial hemorrhage is identified. CTA head - No acute findings in the arteries of the head/brain. CTA neck - Calcified plaque in the proximal right internal carotid artery caus ing 50% stenosis. There is 30% stenosis of the proximal left internal carotid artery. Neurology consulted in ED - telestroke - recommend ASA and statin Neurochecks Telemetry Permissive hypertension initially Aspirin and statin Rx for secondary stroke prevention TTE - LV is normal in size. There is mild concentric LVH. LV wall motion is normal. EF 60 to 65%. Grade 1 diastolic dysfunction. Aortic valve sclerosis moderate, without significant aortic valvular stenosis. Mitral valve leaflets are mildly redundant with borderline prolapse of posterior leaflet. There is trace mitral regurg. Overall is mobile but not aneurysmal. No evidence of intracardiac shunt by agitated saline contrast injection. LDL 100 A1c 5.8 % [facility] neurology - Acute right hemispheric ischemic stroke-small vessel-etiology likely HTN Continue frequent neurological assessments Obtain stat CT brain without contrast for any acute neurological decline Continue to monitor/control blood pressure & blood glucose Metabolic workup should include besides hgbA1c, and fasting lipids, also homocysteine, TSH, D Dimer - ordered Recommend DAPT for at least 3 weeks Recommend continue high dose statin therapy indefinitely if tolerated Ok from neurology perspective for VTE prophylaxis PT/OT/SLT to eval and treat D dimer elevated at 790 - discussed w/ neurology as well. obtained doppler of LEs to r/o dvt Doppler c/w RLE DVT - discussed w/ neuro - started IV heparin w/o bolus, can cont. asa. CT head AM daily while anticoag. neurochecks. This was also discussed w/ family over the phone. - started warfarin CT head (11/21) - 1. Expected evolution of the 2 cm acute to subacute infarct involving the posterior limb of the right internal capsule. No evidence for hemorrhagic transformation. 2. Atrophy and microvascular ischemic changes again noted. CT head 11/22 - - stable 11/25 Hgb down to 10.7. INR 2.0. IV heparin stopped. CT head unchanged. Neuro exam unchanged. Will repeat H&H at noon. Continue to closely monitor. Poss. aspiration - on 11/20 AM - per RN pt aspirated when taking AM meds - CXR obtained -negat. - Pt is breathing without difficulty , sat. 95% - speech eval consulted Hypertension, patient not on maintenance medications. Started lisinopril 5 mg daily Cont. to closely monitor Carotid artery disease on imaging Vascular surgery consulted - Pt with mild R ICA stenosis of 50%. Imaging reviewed by Dr Chowdhury. No indications for vascular surgical intervention at this time. breast cancer left status post surgery SIADH as per records primary hyperparathyroidism, conservative management as per outpatient [facility] Endocrinology note GERD on PPI chronic anemia, hemoglobin at baseline history of Spencer's palsy mood disorder, stable dementia, Delirium precautions DVT prophylaxis per Lovenox subcu DNR as per patient's prior directives as per daughter. Patient family contacts: Mr. Kp Haq (son), contact #[phone] Ms. Jo-Ann Rose (daughter), contact #[phone]. Admission and Anticipated Discharge Date Admission Date: November 20, 2023 Subjective Pt seen in follow up of CVA Currently laying in bed in NAD No headache. Answers simple questions appropriately, follows simple commands. Has no complaints. can move extremities for me, however weaker on the left side. No fever, chills, chest pain. No abd. pain. Discussed w/ neurology previously - started warfarin. Will continue only with aspirin and not with Plavix. Continue statin. CT head daily while inpt. Pt's daughter present at the bedside yesterday and updated. Today hemoglobin down to 10.7. INR 2.0. Discussed with the nurse over the phone, stopping IV heparin now. CT head obtained earlier this morning, unchanged/ stable. Will recheck H&H at noon. Neurologically patient unchanged. Will continue to closely follow-up. Review of Systems Review of Systems: All systems reviewed & are unremarkable except as noted in Subjective Physical Exam Physical Exam: GENERAL: WD/WN elderly F in NAD SKIN: Normal color, warm HEENT: [place] palpebral conjunctivae, chronic ptosis left, left facial droop NECK : Supple, no tenderness CHEST : CTA, no tenderness HEART : RRR, no obvious murmurs ABDOMEN: no distention, nontender, + bowel sounds EXTREMITIES : No LE swelling NEUROLOGIC : Awake (hx of dementia), left facial asymmetry, mild dysarthria, moves extremities, weaker on the left , gait and stance not assessed Results & Data Results & Data Vital Signs (Past 12 Hours) Vital Signs Temp Pulse Pulse Resp BP Pulse Ox O2 Del Method 11/25/23 07:28 68 11/25/23 04:48 36.7 C 74 16 146/80 H 93 Room Air 11/24/23 22:52 36.3 C L 74 16 100/68 93 Room Air 11/24/23 21:58 81 Laboratory Results 11/25/23 Range/Units 07:35 WBC 6.70 (4.8-10.8) K/ul RBC 4.06 L (4.20-5.40) M/uL Hgb 10.7 L (12.0-16.0) g/dl Hct 34.3 L (37.0-47.0) % MCV 84.5 (80.0-100.0) fL MCH 26.4 (25.0-34.0) pg MCHC 31.2 L (32.0-36.0) g/dL RDW Std Deviation 41.7 (36.4-46.3) fL RDW Coeff of Tyesha 13.4 (11.5-14.5) % Plt Count 243 (130-400) K/uL MPV 9.5 (9.4-12.4) fL PT 21.0 H (9.0-12.0) Seconds INR 2.0 H (0.9-1.1) Heparin Anti-Xa, Unfract 0.62 (0.3-0.7) IU/ml Sodium 138 (136-145) mmol/L Potassium 3.9 (3.5-5.1) mmol/L Chloride 105 (98-107) mmol/L Carbon Dioxide 30 (21-32) mmol/L Anion Gap 3 (3-11) BUN 17 (6-23) mg/dl Creatinine 0.87 (0.6-1.2) mg/dl Est Cr Clr Drug Dosing 37.4 ml/min Est GFR ( Amer) 70.4 ml/min Est GFR (Non-Af Amer) 60.7 ml/min BUN/Creatinine Ratio 19.5 (10-20) Glucose 96 (70-99(Fasting)) mg/dl Calcium 9.7 (8.6-10.3) mg/dl Phosphorus 3.5 (2.5-4.9) mg/dl Magnesium 2.0 (1.7-2.4) mg/dl Medications Administered Current Inpatient Medications Acetaminophen (Acetaminophen 325 Mg Tab) 650 mg PO Q4H PRN PRN Reason: PAIN/FEVER>100 Stop: 12/20/23 01:34 Last Admin: 11/24/23 15:20 Dose: 650 mg Artificial Tears (Artificial Tears) 2 drops OPL TID [facility] Stop: 12/20/23 08:59 Last Admin: 11/24/23 20:37 Dose: 2 drops Aspirin (Aspirin 81 Mg Ectab) 81 mg PO [facility] Stop: 12/20/23 08:59 Last Admin: 11/24/23 08:17 Dose: 81 mg Atorvastatin Calcium (Atorvastatin 40 Mg Tab) 40 mg PO [facility] Stop: 12/20/23 08:59 Last Admin: 11/24/23 08:17 Dose: 40 mg Docusate Sodium (Docusate Sodium 100 Mg Cap) 100 mg PO [facility] Stop: 12/20/23 08:59 Last Admin: 11/24/23 08:21 Dose: 100 mg Famotidine (Famotidine 20 Mg Tab) 20 mg PO BID [facility] Stop: 12/20/23 08:59 Last Admin: 11/24/23 20:37 Dose: 20 mg Heparin Sodium (Porcine) (Heparin 100 Unit/Ml 5ml Flush) 5 ml FLUSH PRN PRN PRN Reason: Flush Stop: 12/23/23 08:01 Hydralazine HCl (Hydralazine Hcl 20 Mg/Ml Vial) 5 mg IV Q6H PRN PRN Reason: Blood Pressure - High Stop: 12/20/23 17:48 Promethazine HCl (Phenergan) 6.25 mg in 50.25 mls @ 201 mls/hr IV Q6H PRN PRN Reason: Nausea And Vomiting Stop: 12/20/23 00:09 Lactobacillus Acidophilus (Lactobacillus Acidophilus 1 Gm Pack) 1 gm PO BID [facility] Stop: 12/22/23 20:59 Last Admin: 11/24/23 20:37 Dose: 1 gm Lisinopril (Lisinopril 5 Mg Tab) 5 mg PO QAM [facility] Stop: 12/22/23 14:29 Last Admin: 11/24/23 08:17 Dose: 5 mg Loratadine (Loratadine 10 Mg Tab) 10 mg PO QAM [facility] Stop: 12/20/23 08:59 Last Admin: 11/24/23 08:17 Dose: 10 mg Miconazole Nitrate (Miconazole Nitrate Powder 85 Gm) 1 appln EXT PRN PRN PRN Reason: Affected Skin Folds Stop: 12/21/23 10:02 Last Admin: 11/22/23 10:20 Dose: 1 appln Mirtazapine (Mirtazapine Tab 15 Mg Tab) 7.5 mg PO HS [facility] Stop: 12/20/23 20:59 Last Admin: 11/24/23 20:37 Dose: 7.5 mg Pantoprazole Sodium (Pantoprazole 40 Mg Tab) 40 mg PO DAILY [facility] Stop: 12/20/23 08:59 Last Admin: 11/24/23 08:17 Dose: 40 mg Polyethylene Glycol (Polyethylene (Miralax) 17 Gm Pack) 17 gm PO BID [facility] Stop: 12/20/23 08:59 Last Admin: 11/22/23 10:19 Dose: Not Given Sertraline HCl (Sertraline Hcl 50 Mg Tablet) 25 mg PO DAILY [facility] Stop: 12/20/23 08:59 Last Admin: 11/24/23 08:17 Dose: 25 mg Warfarin Sodium (Warfarin Sod 3 Mg Tab) 3 mg PO DAILY@1600 [facility] Stop: 12/24/23 15:59 Last Admin: 11/24/23 15:20 Dose: 3 mg
--- NOTE | 2023-11-25 08:40 | CT Scan Report ---
CT head/brain wo con CLINICAL HISTORY: 83 years-old Female with follow up CVA on iv heparin. Acute stroke like symptoms TECHNIQUE: Multiple axial CT images of the head were obtained without contrast. A dose lowering tech nique was utilized adhering to the principles of ALARA. CT DOSE: 547.75 mGy.cm COMPARISON: 11/24/2023 FINDINGS: No acute intracranial hemorrhage, midline shift, intracranial mass, hydrocephalus, or abnormal extra- axial collection. Involutional changes with chronic microvascular ischemic disease. Involving infarct within the right frontal lobe basal ganglia/internal capsule similar to yesterday's exam. The calvar ium is intact. The paranasal sinuses, mastoid air cells, and middle ear cavities are clear. IMPRESSION: 1. No acute intracranial hemorrhage or midline shift. 2. Unchanged appearance of the evolving subacute infarct within the right basal ganglia/internal caps ule. ACT 112: Negative or not required by law. The above report was generated using voice recognition software. It may contain grammatical, syntax o r spelling errors. Electronically signed by: Prashanth Morales M.D. 11/25/2023 8:39 AM
[2023-11-25 12:19] LABS: Hematocrit (blood only) 36.3 % (37.0-47.0); Hemoglobin 11.2 g/dl (12.0-16.0)
[2023-11-25 19:19] LABS: Hematocrit (blood only) 35.6 % (37.0-47.0)
[2023-11-26 06:21] LABS: Hematocrit (blood only) 35.2 % (37.0-47.0); Hemoglobin 11.1 g/dl (12.0-16.0); Mean Corpuscular Hemoglobin 26.7 pg (25.0-34.0); Mean Corpuscular Hgb Conc 31.5 g/dL (32.0-36.0); Mean Corpuscular Volume 84.8 fL (80.0-100.0); Mean Platelet Volume 9.4 fL (9.4-12.4); Platelet Count 243 K/uL (130-400); RDW Coefficient of Variation 13.4 % (11.5-14.5); RDW Standard Deviation 41.4 fL (36.4-46.3); Red Blood Count 4.15 M/uL (4.20-5.40); White Blood Count 6.68 K/ul (4.8-10.8)
[2023-11-26 06:43] LABS: Calcium 9.9 mg/dl (8.6-10.3); Creatinine Clr Calc Pharmacy 38.7 ml/min; Est GFR (African American) 73.5 ml/min; Est GFR (Non-African American) 63.4 ml/min; Potassium 4.2 mmol/L (3.5-5.1)
[2023-11-26 07:20] LABS: INR 2.3 (0.9-1.1)
--- NOTE | 2023-11-26 08:31 | CT Scan Report ---
HEAD CT NONCONTRAST CT DOSE: 547.75 mGy.cm HISTORY: Follow-up right basal ganglia infarct. follow up CVA on iv heparin TECHNIQUE: Multiaxial CT images of the head were performed without the use of intravenous contrast. A utomated exposure control was utilized for this study. A dose lowering technique was utilized adheri ng to the principles of ALARA. Comparison: Head CT 11/25/2023. Findings: The paranasal sinuses and mastoid air cells are clear. The calvarium and skull base are int act. Atrophy and microvascular ischemic changes are again noted. There is again noted a subacute infa rct within the right basal ganglia/internal capsule best seen image 16. This remains unchanged. No ev idence for hemorrhagic transformation. No mass or midline shift. Impression: No significant change in the subacute right basal ganglia/internal capsule infarct. No intracranial h emorrhage. ACT 112: Negative or not required by law. Electronically signed by: Young Monge M.D. 11/26/2023 8:28 AM
--- NOTE | 2023-11-26 15:29 | Palliative Care Consultation ---
Date of Consultation November 26, 2023 Assessment & Plan (1) AMS (altered mental status): (2) Weakness generalized: (3) Palliative care by specialist: (4) Adult failure to thrive: (5) H/O Spencer's palsy: Plan * pt has periods of inc alertness and decision making capacity but was fati gued/sleepy during my visit * there was no family present but a family meeting with her SDM and her if she can participate/wants to participate is suggested along with relevant specialists, therefore the date/time for this meeting is deferred to care mgt and primary team to coordinate to assure they, neuro etc can attend. I am not available afternoon or (clinic day). Patient's prior pall med notes from prior admission were reviewed and relevant discussion points are highlighted in HPI. Thank you for allowing us to participate in the ongoing care of this patient. Please don't hesitate to call or page with any additional concerns. Dr. Rosette Munoz DNP Director, Palliative Care History of Present Illness Reason for Consultation: GOC, diff. 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 Palliative med note 03/19/23: "Daughter, Jo-Ann, feels that Mrs. Haq does not have good quality of life and feels that she would want comfort focused care. She had questions about antibiotics and IV hydration. We discussed concern that with fistula, UTIs are likely to be recurrent problem and options for treatment at SNF would be limited if Mrs. Haq is not tolerating po intake. We also discussed concern for volume overload and harm with artificial fluids. Analy has been clear in her advance directive that she would not want artificial nutrition or hydration. Jo-Ann has discussed goals of care with her brother but would like to discuss further with this information. We did review POLST form will complete when they have had an opportunity to talk. For now, Jo-Ann, would want IV antibiotics to continue. POLST form completed for DNR/DNI, comfort measures, trial of antibiotics and fluids" Brain MRI: 1. There is an oval 2 x 1 x 1 cm focus of diffusion restriction and T2 hyperintensity in the right internal capsule and right frontal lobe deep white matter consistent with acute small vessel infarct. 2. Moderate diffuse cerebral atrophy, similar to previous. Periventricular white matter T2 hyperintensity consistent with chronic small vessel disease. No other acute infarcts or hemorrhage identified. CT head: Moderate atrophy and periventricular white matter low density consistent with chronic small vessel disease and/or senescent changes, similar to previous. No acute large vessel infarct or intracranial hemorrhage is identified. CTA head: No acute findings in the arteries of the head/brain. CTA neck: Calcified plaque in the proximal right internal carotid artery causing 50% stenosis. There is 30% stenosis of the proximal left internal carotid artery. TTE: LV size normal; +mild concentric LVH. LV wall motion normal. EF 60-65%. Grade 1 diastolic dysfunction. Aortic valve sclerosis moderate, without significant aortic valvular stenosis. Mitral valve leaflets are mildly redundant w/borderline prolapse of posterior leaflet. Trace mitral regurg. Overall is mobile but not aneurysmal. No evidence of intracardiac shunt by agitated saline contrast injection. At time of my visit this morning there was no family present Patient asleep but somewhat lethargic, did not stay awake for me and drifted back asleep. Allergies Allergy/AdvReac Type Severity Reaction Status Date / Time ezetimibe [From Zetia] Allergy Unknown ON [facility] Verified 11/19/23 21:59 [facility] MED LIST shellfish derived Allergy Unknown ON [facility] Verified 11/19/23 21:59 [facility] MED LIST Sulfa (Sulfonamide Allergy Unknown ON [facility] Verified 11/19/23 21:59 Antibiotics) [facility] MED LIST sulfamethoxazole Allergy Unknown ON [facility] Verified 11/19/23 21:59 [From Bactrim] [facility] L[facility] tramadol Allergy Unknown ON [facility] Verified 11/19/23 21:59 [facility] L[facility] trimethoprim [From Bactrim] Allergy Unknown ON [facility] Verified 11/19/23 21:59 [facility] Allergy Unknown ON [facility] Uncoded 11/19/23 21:59 [facility] MED LIST Home Medications Medication Instructions Recorded Confirmed Type loratadine 10 mg tablet (Claritin) 10 mg PO QAM 12/25/21 11/19/23 History famotidine 20 mg tablet 20 mg PO BID #14 tabs 02/15/22 11/19/23 Rx polyethylene glycol 3350 17 gram 17 g PO BID #14 ea 02/15/22 11/19/23 Rx oral powder packet (Miralax) mirtazapine 15 mg tablet 7.5 mg PO HS 03/15/23 11/19/23 History sertraline 25 mg tablet 25 mg PO DAILY 03/15/23 11/19/23 History acetaminophen 325 mg tablet 650 mg PO Q4H PRN PAIN/FEVER>100 11/19/23 11/19/23 History (Tylenol) carboxymethylcellulose sodium 1 % 2 drp OPL TID 11/19/23 11/19/23 History eye drops (Artificial Tears (carboxymethylcellulose)) docusate sodium 100 mg capsule 100 mg PO QAM 11/19/23 11/19/23 History guaifenesin 100 mg/5 mL oral liquid 200 mg PO Q4H PRN Cough 11/19/23 11/19/23 History hydrocortisone 1 % topical cream 1 applic topical BID PRN SKIN 11/19/23 11/19/23 History IRRITATION ON BUTTOCKS omeprazole 20 mg capsule,delayed 20 mg PO DAILY 11/19/23 11/19/23 History release potassium chloride 10 mEq 10 meq PO DAILY 11/19/23 11/19/23 History tablet,extended release(part/cryst) Patient History Medical History (Updated 11/26/23 @ 15:38 by Rosette Munoz DNP) Palliative care by specialist Weakness generalized S/p left hip fracture SIADH (syndrome of inappropriate ADH production) Fall DVT prophylaxis History of breast cancer Hyperparathyroidism Lumbar spinal stenosis Pre-diabetes Dementia Spencer's palsy Osteoporosis HTN (hypertension) Closed right hip fracture Surgical History Status post hip hemiarthroplasty Right History of partial mastectomy hx of dcis Family History Mother Alzheimer disease Father Heart disease Social History Smoking Status: Unknown if ever smoked Hx Alcohol Use: No Hx Substance Use: No Preferred Language: Lao Communication Ability: Impaired Americanization Teacher Required: No Beliefs That Will Affect Care: None marital status: Current Living Situation: Personal Care Facility How many Children do You have: 2 Feels Safe at Home: Yes Assistive Devices: Wheelchair Review of Systems Review of Systems: Unobtainable due to reduced consciousness Physical Exam Physical Exam: Elderly female, chronically ill appearing Somnolent and unable to engage in this visit bitemp wasting neck somewhat hyperextended no stridor resp effort mildly increased, diminished anterior breath sounds tachy s1s2 abd soft, BS+ generalized weakness pale skin, warm to touch opens eyes to name, drifted back asleep Results & Data Vital Signs (Past 12 Hours) Vital Signs Temp Pulse Pulse Resp BP Pulse Ox O2 Del Method 11/26/23 11:25 36.4 C L 76 18 148/86 H 94 Room Air 11/26/23 10:53 72 11/26/23 07:58 36.2 C L 75 18 143/85 H 96 Room Air Laboratory Results data reviewed Diagnostic Findings data reviewed PG Care Time/CCT Total # of Minutes Spent Total Time Spent with Patient: Total time spent is greater than 50% in coordination of care (as documented) at patient's floor/unit and/or counseling patient: I spent 50 minutes overall addressing this case: 20 min in medical data review/discussion with referring provider(s) and/or preparation for the visit 15 min in direct interaction with the patient/exam 00 min in Advance Care Planning/Goals of Care discussions as detailed above in note (must be >16min) 5 min in subsequent review and synthesis of assessment and plan 10 min communicating with other providers regarding the patient's case: [place] [address] IN/OBS CONSULT LVL 3,45M Patient Type New History Comprehensive Exam Comprehensive Medical Decision Making High Complexity Diagnoses AMS (altered mental status) R41.82 Weakness generalized R53.1 Palliative care by specialist Z51.5 Adult failure to thrive R62.7 H/O Spencer's palsy Z86.69
[2023-11-26] MEDS: WARFARIN SOD 2.5 MG TAB PO SCH (16:33)
--- NOTE | 2023-11-26 17:04 | Hospitalist Progress Note ---
Date of Service November 26, 2023 Assessment & Plan (1) Left-sided weakness: Plan: CVA Brain MRI - 1. There is an oval 2 x 1 x 1 cm focus of diffusion restriction and T2 hyperintensity in the right internal capsule and right frontal lobe deep white matter consistent with acute small vessel infarct. 2. Moderate diffuse cerebral atrophy, similar to previous. Periventricular white matter T2 hyperintensity consistent with chronic small vessel disease. No other acute infarcts or hemorrhage identified. CT head - Moderate atrophy and periventricular white matter low density consistent with chronic small vessel disease and/or senescent changes, similar to previous. No acute large vessel infarct or intracranial hemorrhage is identified. CTA head - No acute findings in the arteries of the head/brain. CTA neck - Calcified plaque in the proximal right internal carotid artery caus ing 50% stenosis. There is 30% stenosis of the proximal left internal carotid artery. Neurology consulted in ED - telestroke - recommend ASA and statin Neurochecks Telemetry Permissive hypertension initially Aspirin and statin Rx for secondary stroke prevention TTE - LV is normal in size. There is mild concentric LVH. LV wall motion is normal. EF 60 to 65%. Grade 1 diastolic dysfunction. Aortic valve sclerosis moderate, without significant aortic valvular stenosis. Mitral valve leaflets are mildly redundant with borderline prolapse of posterior leaflet. There is trace mitral regurg. Overall is mobile but not aneurysmal. No evidence of intracardiac shunt by agitated saline contrast injection. LDL 100 A1c 5.8 % [facility] neurology - Acute right hemispheric ischemic stroke-small vessel-etiology likely HTN Continue frequent neurological assessments Obtain stat CT brain without contrast for any acute neurological decline Continue to monitor/control blood pressure & blood glucose Metabolic workup should include besides hgbA1c, and fasting lipids, also homocysteine, TSH, D Dimer - ordered Recommend DAPT for at least 3 weeks Recommend continue high dose statin therapy indefinitely if tolerated Ok from neurology perspective for VTE prophylaxis PT/OT/SLT to eval and treat D dimer elevated at 790 - discussed w/ neurology as well. obtained doppler of LEs to r/o dvt Doppler c/w RLE DVT - discussed w/ neuro - started IV heparin w/o bolus, can cont. asa. CT head AM daily while anticoag. neurochecks. This was also discussed w/ family over the phone. - started warfarin homocystein 18.1 (elev) CT head (11/21) - 1. Expected evolution of the 2 cm acute to subacute infarct involving the posterior limb of the right internal capsule. No evidence for hemorrhagic transformation. 2. Atrophy and microvascular ischemic changes again noted. CT head 11/22 - - stable 11/25 Hgb down to 10.7. INR 2.0. IV heparin stopped. CT head unchanged. Neuro exam unchanged. Will repeat H&H at noon. Continue to closely monitor. 11/26 Hgb stable at 11 Poss. aspiration - on 11/20 AM - per RN pt aspirated when taking AM meds - CXR obtained - negat. - Pt is breathing without difficulty , sat. 95% - speech eval consulted - 11/26 discussed with family at the bedside, patient's son and daughter, will allow permissive aspiration. Occasionally patient does well with diet, however sometimes has struggles. Family would not be interested in feeding tube. Hypertension, patient not on maintenance medications. Started lisinopril 5 mg daily Cont. to closely monitor Carotid artery disease on imaging Vascular surgery consulted - Pt with mild R ICA stenosis of 50%. Imaging reviewed by Dr Chowdhury. No indications for vascular surgical intervention at this time. breast cancer left status post surgery SIADH as per records primary hyperparathyroidism, conservative management as per outpatient [facility] Endocrinology note GERD on PPI chronic anemia, hemoglobin at baseline history of Spencer's palsy mood disorder, stable dementia, Delirium precautions DVT prophylaxis - on warfarin - therapeutic dose DNR as per patient's prior directives as per daughter. Dispo: plan to [facility] Patient family contacts: Mr. Kp Haq (son), contact #[phone] Ms. Jo-Ann Rose (daughter), contact #[phone]. Admission and Anticipated Discharge Date Admission Date: November 20, 2023 Subjective Pt seen in follow up of CVA Currently laying in bed in NAD No headache. Answers simple questions appropriately, follows simple commands. Has no complaints. can move extremities for me, however weaker on the left side. No fever, chills, chest pain. No abd. pain. Discussed w/ neurology previously - started warfarin. Will continue only with aspirin and not with Plavix. Continue statin. CT head daily while inpt. Pt's daughter and son present at the bedside and discussed with. Patient's daughter says that the patient was able to have decent lunch today. I discussed with her that yesterday swallowing was more difficult and she was seen again by speech therapy. This triggered palliative med. consultation. We discussed in detail that they would not want anything such as feeding tube, and they would allow permissive aspiration. I updated casework manager, and if there is no change overnight, patient can be discharged to [facility] as planned. Review of Systems Review of Systems: All systems reviewed & are unremarkable except as noted in Subjective Physical Exam Physical Exam: GENERAL: WD/WN elderly F in NAD SKIN: Normal color, warm HEENT: [place] palpebral conjunctivae, chronic ptosis left, left facial droop NECK : Supple, no tenderness CHEST : CTA, no tenderness HEART : RRR, no obvious murmurs ABDOMEN: no distention, nontender, + bowel sounds EXTREMITIES : No LE swelling NEUROLOGIC : Awake (hx of dementia), left facial asymmetry, mild dysarthria, moves extremities, weaker on the left , gait and stance not assessed Results & Data Results & Data Vital Signs (Past 12 Hours) Vital Signs Temp Pulse Pulse Resp BP Pulse Ox O2 Del Method 11/26/23 16:21 36.8 C 83 136/85 94 Room Air 11/26/23 15:58 83 11/26/23 11:25 36.4 C L 76 18 148/86 H 94 Room Air 11/26/23 10:53 72 11/26/23 07:58 36.2 C L 75 18 143/85 H 96 Room Air Laboratory Results 11/26/23 11/25/23 Range/Units 06:06 19:04 WBC 6.68 (4.8-10.8) K/ul RBC 4.15 L (4.20-5.40) M/uL Hgb 11.1 L 11.0 L (12.0-16.0) g/dl Hct 35.2 L 35.6 L (37.0-47.0) % MCV 84.8 (80.0-100.0) fL MCH 26.7 (25.0-34.0) pg MCHC 31.5 L (32.0-36.0) g/dL RDW Std Deviation 41.4 (36.4-46.3) fL RDW Coeff of Tyesha 13.4 (11.5-14.5) % Plt Count 243 (130-400) K/uL MPV 9.4 (9.4-12.4) fL PT 24.0 H (9.0-12.0) Seconds INR 2.3 H (0.9-1.1) Sodium 140 (136-145) mmol/L Potassium 4.2 (3.5-5.1) mmol/L Chloride 107 (98-107) mmol/L Carbon Dioxide 30 (21-32) mmol/L Anion Gap 3 (3-11) BUN 21 (6-23) mg/dl Creatinine 0.84 (0.6-1.2) mg/dl Est Cr Clr Drug Dosing 38.7 ml/min Est GFR ( Amer) 73.5 ml/min Est GFR (Non-Af Amer) 63.4 ml/min BUN/Creatinine Ratio 25.0 H (10-20) Glucose 94 (70-99(Fasting)) mg/dl Calcium 9.9 (8.6-10.3) mg/dl Phosphorus 3.0 (2.5-4.9) mg/dl Magnesium 2.0 (1.7-2.4) mg/dl Medications Administered Current Inpatient Medications Acetaminophen (Acetaminophen 325 Mg Tab) 650 mg PO Q4H PRN PRN Reason: PAIN/FEVER>100 Stop: 12/20/23 01:34 Last Admin: 11/24/23 15:20 Dose: 650 mg Artificial Tears (Artificial Tears) 2 drops OPL TID [facility] Stop: 12/20/23 08:59 Last Admin: 11/26/23 16:33 Dose: Not Given Aspirin (Aspirin 81 Mg Ectab) 81 mg PO [facility] Stop: 12/20/23 08:59 Last Admin: 11/26/23 08:41 Dose: 81 mg Atorvastatin Calcium (Atorvastatin 40 Mg Tab) [facility] Stop: 12/20/23 08:59 Last Admin: 11/26/23 08:42 Dose: 40 mg Docusate Sodium (Docusate Sodium 100 Mg Cap) 100 [facility] Stop: 12/20/23 08:59 Last Admin: 11/26/23 10:45 Dose: Not Given Famotidine (Famotidine 20 Mg Tab) 20 mg PO BID [facility] Stop: 12/20/23 08:59 Last Admin: 11/26/23 08:41 Dose: 20 mg Heparin Sodium (Porcine) (Heparin 100 Unit/Ml 5ml Flush) 5 ml FLUSH PRN PRN PRN Reason: Flush Stop: 12/23/23 08:01 Hydralazine HCl (Hydralazine Hcl 20 Mg/Ml Vial) 5 mg IV Q6H PRN PRN Reason: Blood Pressure - High Stop: 12/20/23 17:48 Promethazine HCl (Phenergan) 6.25 mg in 50.25 mls @ 201 mls/hr IV Q6H PRN PRN Reason: Nausea And Vomiting Stop: 12/20/23 00:09 Lactobacillus Acidophilus (Lactobacillus Acidophilus 1 Gm Pack) 1 gm PO BID [facility] Stop: 12/22/23 20:59 Last Admin: 11/26/23 08:41 Dose: 1 gm Lisinopril (Lisinopril 5 Mg Tab) 5 mg PO QAM [facility] Stop: 12/22/23 14:29 Last Admin: 11/26/23 08:41 Dose: 5 mg Loratadine (Loratadine 10 Mg Tab) 10 mg PO QAM [facility] Stop: 12/20/23 08:59 Last Admin: 11/26/23 12:10 Dose: Not Given Miconazole Nitrate (Miconazole Nitrate Powder 85 Gm) 1 appln EXT PRN PRN PRN Reason: Affected Skin Folds Stop: 12/21/23 10:02 Last Admin: 11/22/23 10:20 Dose: 1 appln Mirtazapine (Mirtazapine Tab 15 Mg Tab) 7.5 mg PO HS [facility] Stop: 12/20/23 20:59 Last Admin: 11/25/23 20:11 Dose: 7.5 mg Pantoprazole Sodium (Pantoprazole 40 Mg Tab) 40 mg PO DAILY [facility] Stop: 12/20/23 08:59 Last Admin: 11/26/23 08:41 Dose: 40 mg Polyethylene Glycol (Polyethylene (Miralax) 17 Gm Pack) 17 gm PO BID [facility] Stop: 12/20/23 08:59 Last Admin: 11/22/23 10:19 Dose: Not Given Sertraline HCl (Sertraline Hcl 50 Mg Tablet) 25 mg PO DAILY [facility] Stop: 12/20/23 08:59 Last Admin: 11/26/23 08:41 Dose: 25 mg Warfarin Sodium (Warfarin Sod 2.5 Mg Tab) 2.5 mg PO DAILY@1600 [facility] Stop: 12/26/23 15:59 Last Admin: 11/26/23 16:33 Dose: 2.5 mg
[2023-11-27 06:14] LABS: Hematocrit (blood only) 34.6 % (37.0-47.0); Hemoglobin 11.1 g/dl (12.0-16.0)
[2023-11-27 06:32] LABS: INR 2.7 (0.9-1.1); Prothrombin Time 28.2 Seconds (9.0-12.0)
--- NOTE | 2023-11-27 08:43 | CT Scan Report ---
HEAD CT NONCONTRAST CT DOSE: 547.75 mGy.cm HISTORY: Right basal ganglia infarct. follow up TECHNIQUE: Multiaxial CT images of the head were performed without the use of intravenous contrast. A utomated exposure control was utilized for this study. A dose lowering technique was utilized adheri ng to the principles of ALARA. Comparison: None. Findings: The paranasal sinuses and mastoid air cells are clear. The calvarium and skull base are int act. Atrophy and microvascular ischemic changes are again noted. There is again noted a subacute infa rct within the right basal ganglia/internal capsule best seen on image 16. This remains unchanged. No evidence for hemorrhagic transformation. No mass or midline shift. Impression: No significant change in the subacute right basal ganglia/internal capsule infarct. No intracranial h emorrhage. ACT 112: Negative or not required by law. Electronically signed by: Young Monge M.D. 11/27/2023 8:42 AM
--- NOTE | 2023-11-27 12:55 | Discharge Summary ---
Date of Service November 27, 2023 Admission HPI Per Admitting Provider History obtained from patient, family, and records. Limited history from patient secondary to dementia. Medical history significant for hypertension, breast cancer left status post surgery, SIADH as per records, primary hyperparathyroidism, GERD, chronic back pain, chronic anemia (baseline hemoglobin 11), history of Spencer's palsy, mood disorder, dementia. 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 Around 5:30 PM today, patient noted to have slurred speech and left-sided weakness. 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 No previous episodes as per daughter. Stroke alert called upon arrival at the ER. Thrombolytic therapy not recommended by [facility] neurologist. Aspirin and statin Rx recommended. Patient denies headache, chest pain, SOB, abdominal pain symptoms. Does not know why she is in the hospital. 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 Admission Exam Per Admitting Provider GENERAL: Demented, pleasant, no respiratory distress SKIN: Normal color, warm HEENT: Justice palpebral conjunctivae, chronic ptosis left, left facial droop, dry buccal mucosa NECK : Supple, no tenderness CHEST : CTA, no tenderness HEART : RRR, no obvious murmurs ABDOMEN: no distention, nontender EXTREMITIES : No LE swelling/tenderness, no other conspicuous deformities noted NEUROLOGIC : Demented, left facial asymmetry, mild dysarthria, MMTs RUE/RLE 4/5, LUE/LLE 3/5, gait and stance not assessed Principal Diagnosis Right-sided stroke RLE DVT Possible aspiration Discharge Exam GENERAL: WD/WN elderly F in NAD SKIN: Normal color, warm HEENT: Justice palpebral conjunctivae, chronic ptosis left, left facial droop NECK : Supple, no tenderness CHEST : CTA, no tenderness HEART : RRR, no obvious murmurs ABDOMEN: no distention, nontender, + bowel sounds EXTREMITIES : No LE swelling NEUROLOGIC : Awake (hx of dementia), left facial asymmetry, mild dysarthria, moves extremities, weaker on the left , gait and stance not assessed Discharge Data Allergies Allergy/AdvReac Type Severity Reaction Status Date / Time ezetimibe [From Zetia] Allergy Unknown ON JUNIPER Verified 11/19/23 21:59 [facility] MED LIST shellfish derived Allergy Unknown ON JUNIPER Verified 11/19/23 21:59 [facility] MED LIST Sulfa (Sulfonamide Allergy Unknown ON JUNIPER Verified 11/19/23 21:59 Antibiotics) [facility] MED LIST sulfamethoxazole Allergy Unknown ON JUNIPER Verified 11/19/23 21:59 [From Bactrim] [facility] MED LIST tramadol Allergy Unknown ON JUNIPER Verified 11/19/23 21:59 [facility] LIST trimethoprim [From Bactrim] Allergy Unknown ON JUNIPER Verified 11/19/23 21:59 [facility] MED LIST [facility] Allergy Unknown ON JUNIPER Uncoded 11/19/23 21:59 [facility] MED LIST Consultations 11/19/23 23:17 ED Decision to Admit Stat 11/20/23 00:05 Consult Neurology Routine 11/20/23 01:43 Consult Vascular Surgery Routine 11/25/23 13:33 Consult Palliative Care Routine Ordered Studies 11/19/23 21:42 CT angio head w con Stat CT angio neck with con Stat CT head/brain wo con Stat 11/20/23 00:02 MR brain wo con Urgent 11/20/23 11:00 FL video swallow Routine 11/20/23 13:26 US venous doppler LE BI Routine 11/21/23 09:00 CT head/brain wo con DAILY 11/22/23 09:00 CT head/brain wo con DAILY 11/23/23 08:00 CT head/brain wo con DAILY 11/23/23 16:54 CT head/brain wo con Stat 11/24/23 08:00 CT head/brain wo con DAILY 11/25/23 08:00 CT head/brain wo con DAILY 11/26/23 08:00 CT head/brain wo con DAILY 11/27/23 07:00 CT head/brain wo con Routine Hospital Course (1) Left-sided weakness: Per prior attending with addendum: CVA Brain MRI - 1. There is an oval 2 x 1 x 1 cm focus of diffusion restriction and T2 hyperintensity in the right internal capsule and right frontal lobe deep white matter consistent with acute small vessel infarct. 2. Moderate diffuse cerebral atrophy, similar to previous. Periventricular white matter T2 hyperintensity consistent with chronic small vessel disease. No other acute infarcts or hemorrhage identified. CT head - Moderate atrophy and periventricular white matter low density consistent with chronic small vessel disease and/or senescent changes, similar to previous. No acute large vessel infarct or intracranial hemorrhage is identified. CTA head - No acute findings in the arteries of the head/brain. CTA neck - Calcified plaque in the proximal right internal carotid artery causing 50% stenosis. There is 30% stenosis of the proximal left internal carotid artery. Neurology consulted in ED - telestroke - recommend ASA and statin Neurochecks Telemetry Permissive hypertension initially Aspirin and statin Rx for secondary stroke prevention TTE - LV is normal in size. There is mild concentric LVH. LV wall motion is normal. EF 60 to 65%. Grade 1 diastolic dysfunction. Aortic valve sclerosis moderate, without significant aortic valvular stenosis. Mitral valve leaflets are mildly redundant with borderline prolapse of posterior leaflet. There is trace mitral regurg. Overall is mobile but not aneurysmal. No evidence of intracardiac shunt by agitated saline contrast injection. LDL 100 A1c 5.8 % [facility] neurology - Acute right hemispheric ischemic stroke-small vessel-etiology likely HTN Continue frequent neurological assessments Obtain stat CT brain without contrast for any acute neurological decline Continue to monitor/control blood pressure & blood glucose Metabolic workup should include besides hgbA1c, and fasting lipids, also homocysteine, TSH, D Dimer - ordered Recommend DAPT for at least 3 weeks Recommend continue high dose statin therapy indefinitely if tolerated Ok from neurology perspective for VTE prophylaxis PT/OT/SLT to eval and treat D dimer elevated at 790 - discussed w/ neurology as well. obtained doppler of LE s to r/o dvt Doppler c/w RLE DVT - discussed w/ neuro - started IV heparin w/o bolus, can cont. asa. CT head AM daily while anticoag. neurochecks. This was also discussed w/ family over the phone. - started warfarin homocystein 18.1 (elev) CT head (11/21) - 1. Expected evolution of the 2 cm acute to subacute infarct involving the posterior limb of the right internal capsule. No evidence for hemorrhagic transformation. 2. Atrophy and microvascular ischemic changes again noted. CT head 11/22 - - stable 11/25 Hgb down to 10.7. INR 2.0. IV heparin stopped. CT head unchanged. Neuro exam unchanged. Will repeat H&H at noon. Continue to closely monitor. 11/26 Hgb stable at 11 Poss. aspiration - on 11/20 AM - per RN pt aspirated when taking AM meds - CXR obtained - negat. - Pt is breathing without difficulty , sat. 95% - speech eval consulted - 11/26 discussed with family at the bedside, patient's son and daughter, will allow permissive aspiration. Occasionally patient does well with diet, however sometimes has struggles. Family would not be interested in feeding tube. Hypertension, patient not on maintenance medications. Started lisinopril 5 mg daily Cont. to closely monitor Carotid artery disease on imaging Vascular surgery consulted - Pt with mild R ICA stenosis of 50%. Imaging reviewed by Dr Chowdhury. No indications for vascular surgical intervention at this time. breast cancer left status post surgery SIADH as per records primary hyperparathyroidism, conservative management as per outpatient [facility] Endocrinology note GERD on PPI chronic anemia, hemoglobin at baseline history of Spencer's palsy mood disorder, stable dementia, Delirium precautions DVT prophylaxis - on warfarin - therapeutic dose DNR as per patient's prior directives as per daughter. Dispo: [facility] Patient family contacts: Mr. Kp Haq (son), contact #[phone] Ms. J-oAnn Rsoe (daughter), contact #[phone]. Addendum 11/27/2023: Patient was seen and examined at bedside as a follow-up of right-sided stroke, RLE DVT, aspiration. Patient has been started on aspirin and Coumadin, INR uptrending, will lower the Coumadin dose to 1.5 Mg daily with close follow-up with Coumadin clinic upon discharge with a goal to attain a stable therapeutic INR. Patient to follow-up with neurology upon discharge. Patient with no new complaints today. Patient is being discharged to SNF with following instruction at the point of discharge: Follow-up with your primary care physician within a week time and likely you will need labs CBC/CMP/magnesium/phosphorus. You were evaluated for stroke, you are also found to have right lower extremity blood clot. You were started on aspirin and warfarin. You will need daily PT/INR for few days, to maintain therapeutic INR and appropriate dosage adjustment of your warfarin. Further recommendation from your Coumadin clinic. Follow-up with Coumadin clinic upon discharge in 1 to 2 days. You will need repeat CT scan of the head in 1 week time upon discharge, coordinate with your PCP office to set up the test. You will need follow-up with outpatient neurology, possibly in 2 to 4 weeks time upon discharge. You will be discharged on Malhotra catheter to help improve excoriation in your genito urinary area. Malhotra catheter can be removed in next 3 to 5 days upon improvement of your area redness. Take your medications as prescribed. Please make sure that you are able to get your medications today by calling your pharmacy before you leave the hospital so that your treatment continuity is not broken. Home Health Attestation I certify that this patient is under my care and that I, or a physicians car rental sales assistant working with me, had a face to-face encounter that meets the home health [id number] encounter requirements with this patient. The encounter with the patient was in whole, or in part, for the following medical condition, which is the primary reason for home health care (list medical condition): I certify that, based on my findings, the following services are medically necessary home health services: My clinical findings support the need for the above services because: Further, I certify that my clinical findings support that this patient is homebound (i.e. absences from home require considerable and taxing effort and a re for medical reasons or yarsani services or infrequently or of short duration when for other reasons) because: Certification for Home Health Services: Based on the above findings, I certify that this patient is confined to the home and needs intermittent longterm care, physical therapy and/or speech therapy or continues to need occupational therapy. The patient is under my care, and I have initiated the establishment of the plan of care. This patient will be followed by a physician who will periodically review the plan of care. Total Time Total Time Spent Total Time Spent (In Minutes): 45 Discharge Plan Discharge Items Patient Disposition[facility] Reason For Visit: CVA Discharge Diagnosis: Right-sided stroke RLE DVT Possible aspiration Activity: As commented below Activity Comment: c/w Physical therapy on discharge Non-emergency contact: Primary Care Provider Call non-emergency contact if: you have any medication questions, your symptoms worsen and your temperature is above 101.5 Follow-up/Referrals: Cinthia Petersen [place] [Primary Care Provider] - Diet: Heart Healthy Diet Texture: Pureed (blended smooth) Liquid Consistency: Honey thick Addtl Attending Provider Instructions: Follow-up with your primary care physician within a week time and likely you will need labs CBC/CMP/magnesium/phosphorus. You were evaluated for stroke, you are also found to have right lower extremity blood clot. You were started on aspirin and warfarin. You will need daily PT/INR for few days, to maintain therapeutic INR and appropriate dosage adjustment of your warfarin. Further recommendation from your Coumadin clinic. Follow-up with Coumadin clinic upon discharge in 1 to 2 days. You will need repeat CT scan of the head in 1 week time upon discharge, coordinate with your PCP office to set up the test. You will need follow-up with outpatient neurology, possibly in 2 to 4 weeks time upon discharge. You will be discharged on Malhotra catheter to help improve excoriation in your genito urinary area. Malhotra catheter can be removed in next 3 to 5 days upon improvement of your area redness. Take your medications as prescribed. Please make sure that you are able to get your medications today by calling your pharmacy before you leave the hospital so that your treatment continuity is not broken. Pending Studies at Discharge: No Stand-Alone Forms: [facility] [employer], Medications to Prevent Stroke Skilled Items Patient informed of condition?: Yes DNR: Yes Discharge Level of Care: Skilled Communicable Disease: No Discharge Prognosis: Stable Lines: None Urinary Catheter: Yes Medications and DC Order Prescriptions: New warfarin 1 mg Tablet 1.5 mg PO DAILY@1600 Qty: 45 0RF atorvastatin 40 mg Tablet 40 mg PO QAM Qty: 30 0RF lisinopril [Zestril] 5 mg Tablet 5 mg PO QAM Qty: 30 0RF aspirin 81 mg Tablet,Delayed Release (Dr/Ec) 81 mg PO QAM Qty: 30 0RF Probiotic 3 billion cell capsule 3,000 mmu cells PO DAILY Qty: 14 0RF Rx Instructions: administer with a meal Continued loratadine [Claritin] 10 mg Tablet 10 mg PO QAM famotidine 20 mg Tablet 20 mg PO BID Qty: 14 0RF polyethylene glycol 3350 [Miralax] 17 gram Powder In Packet 17 g PO BID Qty: 14 0RF sertraline 25 mg Tablet 25 mg PO DAILY mirtazapine 15 mg Tablet 7.5 mg PO HS acetaminophen [Tylenol] 325 mg Tablet 650 mg PO Q4H PRN (Reason: PAIN/FEVER>100) guaifenesin 100 mg/5 mL Liquid 200 mg PO Q4H PRN (Reason: Cough) Rx Instructions: STARTED 11/18/23 FOR 7 DAYS hydrocortisone 1 % Cream 1 applic TOPICAL BID PRN (Reason: SKIN IRRITATION ON BUTTOCKS) Rx Instructions: APPLY ZINC ON TOP. omeprazole 20 mg Capsule,Delayed Release(Dr/Ec) 20 mg PO DAILY potassium chloride 10 mEq tablet,ER particles/crystals 10 meq PO DAILY Artificial Tears (cmc) 1 % Drops 2 drp OPL TID docusate sodium 100 mg capsule 100 mg PO QAM Discharge Orders: Discharge Order (Routine); Ordered 11/27/23 Ordered By: Catie Rebolledo Admission Data Admit Date/Time: 11/20/23 01:42 Attending Provider: Catie Rebolledo Admit Provider: Edward Jose Primary Care Provider: [facility] [place] Other Providers: Edward Jose; Anisha Swift; Jeremias Pan; Anisha Brooke; Jens Olson; Shravan Lucas; Lee Toledo; Dhaval Cuellar; Alannah Hartman; Marck Berman; Edgar Crook; Mary Boss; Rivas Jefferson; Kylah Goldsmith; Lissy Merritt; Dhaval Zarate; Michael Chowdhury; Cinthia Petersen [facility]; Rosette Munoz
[2023-11-27] MEDS ORDERED: WARFARIN SOD 0.5 MG TAB PO SCH (16:00)
== END 2023-11-27 15:15 | DRG 65 ==
LOC: EDINP 21:42 → ED 21:42 → 2W 11-20 01:36 → SUATTDRO 11-20 01:42 → 2W 11-20 16:43

== ENCOUNTER 2024-01-04 07:23 | Inpatient (IN) ==
--- NOTE | 2024-01-04 07:46 | Emergency Department Note ---
Impression & Plan Abdominal pain, acute, left lower quadrant, Acute UTI ED Provider Note CHIEF COMPLAINT: Left lower quadrant abdominal pain x 1 day HISTORY OF PRESENT ILLNESS: This 83-year-old female patient presents to the emergency department via ambulance for evaluation of left lower quadrant abdominal pain which started today. The patient states that the symptoms came on suddenly this morning. She denies any exacerbating or alleviating factors. The patient notes she does have a history of diverticulitis. She has had left lower quadrant abdominal pain similar nature to this in the past. Patient denies any diarrhea. No nausea or vomiting. No constipation. No dysuria, urinary frequency, urinary hesitancy, hematuria. Patient is currently on palliative care. She has not recently been on any antibiotics. She denies any fever. REVIEW OF SYSTEMS: A 10 system review of systems was performed with positives and pertinent negatives listed in the history of present illness. All other systems were reviewed and are negative. ALLERGIES: Zetia, Shellfish, Sulfa, Tramadol PHYSICAL EXAM: VITALS: Vitals are noted on the nurse's note and reviewed by myself. Vital signs stable. GENERAL: This is an 83-year-old female, in no acute distress, nondiaphoretic, well-developed well-nourished. SKIN: The skin was without rashes, erythema, edema, or bruising. There is no tenting of the skin. Capillary refill less than 2 seconds. HEAD: Normocephalic atraumatic. EARS: External auditory canals clear, tympanic membranes pearly ware without erythema or effusion bilaterally. No hemotympanum. Negative bonilla sign EYES: Pupils equal round and reactive to light and accommodation. Conjunctivae without injection, sclerae without icterus. Extraocular movements intact. NOSE: Patent, turbinates without inflammation or discharge. No sinus tenderness. MOUTH: Mucous membranes moist. Tonsils are not enlarged. Pharynx without erythema or exudate. Uvula midline. Airway patent. Tongue does not deviate. NECK: Supple without nuchal rigidity. No lymphadenopathy. Cervical spine is nontender. No JVD. HEART: Regular rate and rhythm without murmurs gallops or rubs. LUNGS: Clear to auscultation bilaterally without wheezes, rales or rhonchi. No retractions or accessory muscle use. ABDOMEN: Positive bowel sounds x 4. Left lower quadrant tenderness to palpation. The abdomen is otherwise soft, nontender, without masses or organomegaly. Booker sign negative. No guarding or rebound tenderness. MUSCULOSKELETAL: No muscle atrophy, erythema, or edema noted. Full range of motion without joint tenderness in all extremities. No tenderness to palpation. Normal gait. Strength 5/5 throughout. NEURO: Patient was alert and oriented to person place and time. No focal neurological deficits. An order was placed for continuous media reporter. The monitor showed a normal sinus rhythm at a ventricular rate of 77 bpm, per my interpretation. EKG was reviewed by myself and found to be Normal Sinus Rhythm at a rate of 92 beats per minute and per my interpretation reveals no ST elevation, depression, T wave inversion. When compared to previous EKG of 11/19/2023 is unchanged Imaging as interpreted by myself and the radiologist revealed pyelitis with questionable 7 mm stone in the distal left ureter, though streak artifact makes it difficult to interpret, with radiologist interpretation as above. I agree with the radiologist's findings as based upon my independent interpretation. EMERGENCY DEPARTMENT COURSE: The patient was seen and evaluated as above. Patient presents for left lower quadrant abdominal pain which came on suddenly today. The patient does have a history of diverticulitis and there was concern for possible diverticulitis. Given the patient's history and presentation, I did elect to perform the above-mentioned workup. IV access was obtained, labs are drawn. Labs reviewed. Mild leukocytosis of 11,000. No anemia or thrombocytopenia. INR 1.3. Renal, hepatic function and electrolytes without significant abnormality. Urinalysis was concerning for infection with positive nitrates, 3+ blood, 3+ leukocyte esterase, 1+ bacteria. This was a straight cath specimen. CT imaging was performed and reviewed by myself radiologist as noted. Concerning for bladder wall thickening consistent with cystitis as well as urothelial thickening within the bladder renal collecting system and ureters consistent with bilateral pyelitis. The questionable density left renal collecting system without dena hydronephrosis. There is a 7 mm calcification within the left deep pelvis which favors a fecalith, however a distal left ureteral stone is not excluded. I am concerned for the urinary tract infection as well as questionable stone. No evidence of diverticulitis. The rectovaginal fistula which was seen on prior studies is not identified, however metallic artifact noted in this are aon CT imaging. The patient's pain was well- controlled with IV Tylenol. She was hydrated with IV fluids. She was started on ceftriaxone here in the emergency department. I discussed the case with the [facility] hospitalist. Please see their dictation regarding ongoing management care of this patient. While in the department, I personally reevaluated the patient several times and each time the patient was found to be resting comfortably. The patient was educated upon management, educated upon todays findings/results, educated upon importance of follow up from today's visit, educated upon symptoms in which to return, had questions answered prior to discharge, verbalized understanding, and was discharged home in good condition. Case was discussed with the attending physician. I attest that I have personally reviewed the patient medication list. I attest that I have reviewed the patient's blood pressure and it was found to be mildly elevated. Referred to hospitalist for management. GCS: 15 In the evaluation and treatment of this patient the following differential diagnoses were entertained: appendicitis, diverticulitis, obstruction, inflammatory bowel disease, renal colic, PUD, biliary pathology, pancreatitis, mesenteric ischemia, aortic pathology, infections, genitourinary, UTI, perforated viscus, as well as others were entertained. The chart was completed utilizing [employer] Speech voice recognition software. Grammatical errors, random word insertions, pronoun errors, and incomplete sentences are an occasional consequence of this system due to software limitations, ambient noise, and hardware issues. Any formal questions or concerns about the content, text, or information contained within the body of this dictation should be directly addressed to the provider for clarification. Past Med/Surg History Medical History Palliative care by specialist Weakness generalized S/p left hip fracture SIADH (syndrome of inappropriate ADH production) Fall DVT prophylaxis History of breast cancer Hyperparathyroidism Lumbar spinal stenosis Pre-diabetes Dementia Spencer's palsy Osteoporosis HTN (hypertension) Closed right hip fracture Surgical History Status post hip hemiarthroplasty Right History of partial mastectomy hx of dcis Family History Mother Alzheimer disease Father Heart disease Social History Smoking Status: Never smoker Second Hand Exposure: No; Do You Dip or Chew Tobacco: No; Tobacco Cessation Education Requested by Patient: No Hx Alcohol Use: No Hx Substance Use: No Preferred Language: Mohawk Communication Ability: Effective Leave Manager Required: No Beliefs That Will Affect Care: None marital status: Current Living Situation: Penitentiary Current Living Situation Comment: [facility] How many Children do You have: 2 Other Information That Helps Us Care for You: No Feels Safe at Home: Yes Assistive Devices: Glasses Allergies Allergies Allergy/AdvReac Type Severity Reaction Status Date / Time ezetimibe [From Zetia] Allergy Unknown ON [facility] Verified 11/19/23 21:59 [facility] shellfish derived Allergy Unknown ON [facility] Verified 11/19/23 21:59 [facility] Sulfa (Sulfonamide Allergy Unknown ON [facility] Verified 11/19/23 21:59 Antibiotics) [facility] sulfamethoxazole Allergy Unknown ON [facility] Verified 11/19/23 21:59 [From Bactrim] [facility] LIST tramadol Allergy Unknown ON [facility] Verified 11/19/23 21:59 [facility] L[facility] trimethoprim [From Bactrim] Allergy Unknown ON [facility] Verified 11/19/23 21:59 [facility] LIST [facility] Allergy Unknown ON [facility] Uncoded 11/19/23 21:59 [facility] L[facility] Home Meds Home Medications Medication Instructions Recorded Confirmed loratadine 10 mg tablet (Claritin) 10 mg PO M 12/25/21 01/04/24 mirtazapine 15 mg tablet 7.5 mg PO HS 03/15/23 01/04/24 sertraline 25 mg tablet 25 mg PO DAILY 03/15/23 01/04/24 acetaminophen 325 mg tablet 650 mg PO Q4H PRN PAIN/FEVER>100 11/19/23 01/04/24 (Tylenol) carboxymethylcellulose sodium 1 % 2 drp OPL TID 11/19/23 01/04/24 eye drops (Artificial Tears (carboxymethylcellulose)) docusate sodium 100 mg capsule 100 mg PO QA 11/19/23 01/04/24 omeprazole 20 mg capsule,delayed 20 mg PO DAILY 11/19/23 01/04/24 release potassium chloride 10 mEq 10 meq PO DAILY 11/19/23 01/04/24 tablet,extended release(part/cryst) Saccharomyces boulardii 250 mg 250 mg PO QAM 01/04/24 01/04/24 capsule sodium chloride 0.65 % nasal spray 2 spray intranasal TID 01/04/24 01/04/24 aerosol (Saline Nasal) warfarin 1 mg tablet 2 mg PO DAILY@1600 01/04/24 01/04/24 wound dressings (Triad Wound 1 applic topical DAILY 01/04/24 01/04/24 Dressing paste) Previous Rx's Medication Instructions Recorded famotidine 20 mg tablet 20 mg PO BID #14 tabs 02/15/22 polyethylene glycol 3350 17 gram 17 g PO BID #14 ea 02/15/22 oral powder packet (Miralax) aspirin 81 mg tablet,delayed 81 mg PO QAM #30 tabs 11/27/23 release atorvastatin 40 mg tablet 40 mg PO QAM #30 tabs 11/27/23 lisinopril 5 mg tablet (Zestril) 5 mg PO QAM #30 tabs 11/27/23 Results & Data (ED) Vital Signs Vital Signs - 24 hr 01/04/24 07:35 01/04/24 07:54 01/04/24 08:06 Temperature 36.8 C Temperature Source Oral Pulse Rate 87 88 86 Pulse Rate [Apical] Pulse Rhythm Regular Regular Respiratory Rate 18 18 Respiratory Effort / Characteristics Non-Labored Respiratory Depth Normal Respiratory Pattern Regular Blood Pressure 149/84 H Blood Pressure [Right Arm] Blood Pressure Mean 105 Blood Pressure Mean [Right Arm] Blood Pressure Position Sitting Pulse Oximetry 95 96 Oxygen Delivery Method Room Air Room Air Sepsis Recent Fever Within 48 Hours No Sepsis New/Unexplained Change in Mental Status No Sepsis Action Taken by Nursing No Action Required 01/04/24 10:39 01/04/24 12:02 01/04/24 12:05 Temperature Temperature Source Pulse Rate 68 Pulse Rate [Apical] 73 72 Pulse Rhythm Respiratory Rate 20 20 Respiratory Effort / Characteristics Non-Labored Non-Labored Respiratory Depth Normal Normal Respiratory Pattern Blood Pressure Blood Pressure [Right Arm] 128/70 135/74 Blood Pressure Mean Blood Pressure Mean [Right Arm] 89 94 Blood Pressure Position Pulse Oximetry 97 99 Oxygen Delivery Method Room Air Room Air Sepsis Recent Fever Within 48 Hours Sepsis New/Unexplained Change in Mental Status Sepsis Action Taken by Nursing Laboratory Data 01/04/24 07:35 01/04/24 07:35 Lab Results 01/04/24 01/04/24 Range/Units 07:35 09:17 WBC 11.78 H (4.8-10.8) K/ul RBC 4.85 (4.20-5.40) M/uL Hgb 13.1 (12.0-16.0) g/dl Hct 40.8 (37.0-47.0) % MCV 84.1 (80.0-100.0) fL MCH 27.0 (25.0-34.0) pg MCHC 32.1 (32.0-36.0) g/dL RDW Std Deviation 42.6 (36.4-46.3) fL RDW Coeff of Tyesha 13.9 (11.5-14.5) % Plt Count 286 (130-400) K/uL MPV 9.5 (9.4-12.4) fL Immature Gran % (Auto) 0.3 % Neut % (Auto) 76.8 % Lymph % (Auto) 13.2 % Wheeler % (Auto) 9.2 % Eos % (Auto) 0.2 % Baso % (Auto) 0.3 % Neut # (Auto) 9.05 H (1.40-6.50) K/uL Lymph # (Auto) 1.56 (1.20-3.40) K/uL Wheeler # (Auto) 1.08 H (0.11-0.59) K/uL Eos # (Auto) 0.02 (0.00-0.50) K/uL Baso # (Auto) 0.03 (0.00-0.20) K/uL Immature Gran # (Auto) 0.04 (0.01-0.20) K/uL PT 14.0 H (9.0-12.0) Seconds INR 1.3 H (0.9-1.1) APTT 30 (21-31) Seconds PTT Ratio 1.1 Sodium 142 (136-145) mmol/L Potassium 4.5 (3.5-5.1) mmol/L Chloride 106 (98-107) mmol/L Carbon Dioxide 29 (21-32) mmol/L Anion Gap 7 (3-11) BUN 25 H (6-23) mg/dl Creatinine 0.86 (0.6-1.2) mg/dl Est Cr Clr Drug Dosing Not Reportable Est GFR ( Amer) 71.4 ml/min Est GFR (Non-Af Amer) 61.6 ml/min BUN/Creatinine Ratio 29.1 H (10-20) Glucose 122 H (70-99(Fasting)) mg/dl Calcium 11.0 H (8.6-10.3) mg/dl Total Bilirubin 0.5 (0.2-1.0) mg/dl AST 10 L (13-39) U/L ALT 5 L (7-52) U/L Alkaline Phosphatase 101 (34-104) U/L Troponin I High Sens 9.4 (0-14) pg/ml Total Protein 7.9 (6.0-8.3) gm/dl Albumin 4.0 (3.4-5.0) gm/dl Globulin 3.9 (2.5-4.0) gm/dl Albumin/Globulin Ratio 1.0 (0.9-2) Lipase 7 L (11-82) U/L Urine Color Red Urine Appearance Turbid A (Clear) Urine pH 8.0 H (4.5-7.5) Ur Specific Higden > 1.045 H (1.000-1.030) Urine Protein 2+ H (Negative) Urine Glucose (UA) Negative (Negative) Urine Ketones Negative (Negative) Urine Blood 3+ H (Negative) Urine Nitrite Positive A (Negative) Urine Bilirubin Negative (Negative) Urine Urobilinogen Negative (Negative) Ur Leukocyte Esterase 3+ H (Negative) Urine WBC (Auto) >30 H (0-5) /hpf Urine RBC (Auto) >30 H (0-4) /hpf U Hyaline Cast (Auto) 1-5 (0-5) /lpf U Epithel Cells (Auto) 5-10 H (0-5) /lpf Urine Bacteria (Auto) 1+ H (Negative) Urine Yeast Not Reportable Administered Medications Heparin Sodium (Porcine) (Heparin Sod 5,000 Unit/0.5 Ml Vial) 5,000 units SQ Q12 SELIN Stop: 02/03/24 12:44 Last Admin: 01/04/24 15:27 Dose: 5,000 units Documented By: BCD Discontinued Medications Sodium Chloride (Nss) 1,000 mls @ 999 mls/hr IV .Q1H1M STA Stop: 01/04/24 08:40 Last Infusion: 01/04/24 08:57 Dose: Infused Documented By: Admin: 01/04/24 08:03 Dose: 999 mls/hr Documented By: JAH Acetaminophen (Ofirmev) 1,000 mg in 100 mls @ 400 mls/hr IV NOW STA Stop: 01/04/24 07:54 Last Infusion: 01/04/24 08:57 Dose: Infused Documented By: Admin: 01/04/24 08:02 Dose: 400 mls/hr Documented By: JAH Ceftriaxone Sodium (Rocephin) 1,000 mg in 50 mls @ 100 mls/hr IV NOW STA Stop: 01/04/24 10:54 Last Infusion: 01/04/24 11:12 Dose: Infused Documented By: Admin: 01/04/24 10:34 Dose: 100 mls/hr Documented By: AMBER Ioversol (Optiray 320 100ml) 94 ml IV ONCE ONE Stop: 01/04/24 08:37 Last Admin: 01/04/24 08:36 Dose: 94 ml Documented By: DULCE MARIA Imaging Data Radiologist's Impression: Abdomen/Pelvis CT 01/04/24 07:[address] WITH IV CONTRAST CT DOSE: 840.65 mGy.cm HISTORY: LLQ pain TECHNIQUE: Multiaxial CT images of the abdomen and pelvis were performed following the use of intravenous contrast. A dose lowering technique was utilized adhering to the principles of ALARA. COMPARISON STUDY: Abdomen and pelvis CT 03/15/2023. FINDINGS: Persistent elevation of the right hemidiaphragm. Bibasilar linear densities favor subsegmental atelectasis. No pneumoperitoneum. No pneumatosis. Postoperative changes seen within the bilateral hips. There is an old severe compression deformity at T12 with retropulsion and moderate central canal narrowing at this level. This remains unchanged. No acute fractures identified. There is a moderate hiatus hernia, unchanged. Prior cholecystectomy. This likely accounts for the mild bile duct dilatation. No hepatic or splenic masses. The adrenal glands and pancreas are unremarkable. No retroperitoneal lymphadenopathy. There is an ectatic abdominal aorta measuring 2.2 cm. No pelvic lymphadenopathy or pelvic free fluid. The pelvic structures are suboptimally assessed due to the metallic artifact. There is thickening and enhancement within the bladder wall again noted. This is similar to the prior study and favors a cystitis. Small amount of fluid and gas within the endometrium of the uterus has improved. Mild rectal wall thickening has also improved. Colonic diverticulosis. No evidence for acute diverticulitis. No evidence for bowel obstruction. Normal appendix. Bilateral nephrolithiasis the dominant stone within the right renal pelvis measuring 6 mm. Bilateral renal hypodense lesions are again noted and favor cysts. There is urothelial enhancement within the bilateral renal collecting systems and ureters most pronounced on the left. There is mild fullness within the left renal collecting system without dena hydronephrosis. There is a 7 mm calcification within the left deep pelvis on image 270. This is in close proximity to the distal left ureter. However, the distal left ureter is obscured by the metallic artifact at this location. This favors a phlebolith. A distal left ureteral stone is not excluded. 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 This may be obscured by the metallic artifact. IMPRESSION: 1. Mild rectal wall thickening which is improved. No evidence for fecal impaction at this time. 2. Small amount of gas and fluid within the endometrium which has improved. 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 3. Bladder wall thickening again noted consistent with a cystitis. There is also urothelial thickening within the bilateral renal collecting systems and ureters consistent with a bilateral pyelitis. Recommend correlation with urinalysis. 4. Mild fullness within the left renal collecting system without dena hydronephrosis. There is a 7 mm calcification within the left deep pelvis which favors a phlebolith. However, this is in close proximity to the distal left ureter. Therefore, a distal left ureteral stone is not excluded. 5. Bilateral nephrolithiasis. 6. Additional findings as described above. ACT 112: Negative or not required by law. Electronically signed by: Young Monge M.D. 01/04/2024 9:44 AM Discharge Plan Visit Data Chief Complaint: Abdominal Pain Stated Complaint: AB PAIN ED Provider: Santos Kelly ED Midlevel Provider: Birdie Talavera Discharge Problem: Abdominal pain, acute, left lower quadrant, Acute UTI Patient Disposition: Admitted As Inpatient
[2024-01-04 07:54] LABS: Basophils # (auto) 0.03 K/uL (0.00-0.20); Basophils % (auto) 0.3 %; Eosinophils # (auto) 0.02 K/uL (0.00-0.50); Eosinophils % (auto) 0.2 %; Hematocrit (blood only) 40.8 % (37.0-47.0); Hemoglobin 13.1 g/dl (12.0-16.0); Immature Granulocytes # (auto) 0.04 K/uL (0.01-0.20); Immature Granulocytes % (auto) 0.3 %; Lymphocytes # (auto) 1.56 K/uL (1.20-3.40); Lymphocytes % (auto) 13.2 %; Mean Corpuscular Hgb Conc 32.1 g/dL (32.0-36.0); Mean Corpuscular Volume 84.1 fL (80.0-100.0); Mean Platelet Volume 9.5 fL (9.4-12.4); Monocytes # (auto) 1.08 K/uL (0.11-0.59); Monocytes % (auto) 9.2 %; Neutrophils # (auto) 9.05 K/uL (1.40-6.50); Neutrophils % (auto) 76.8 %; Platelet Count 286 K/uL (130-400); RDW Coefficient of Variation 13.9 % (11.5-14.5); RDW Standard Deviation 42.6 fL (36.4-46.3); Red Blood Count 4.85 M/uL (4.20-5.40); White Blood Count 11.78 K/ul (4.8-10.8)
[2024-01-04 08:01] LABS: INR 1.3 (0.9-1.1); Partial Thromboplastin Ratio 1.1; Partial Thromboplastin Time 30 Seconds (21-31)
[2024-01-04] MEDS: ACETAMINOPHEN 1,000 MG/100 ML VIAL IV STA (08:02)
[2024-01-04] MEDS: SODIUM CHLORIDE 0.9% 1,000 ML IV STA (08:03)
[2024-01-04 08:11] LABS: Alanine Aminotransferase 5 U/L (7-52); Alkaline Phosphatase 101 U/L (34-104); Anion Gap 7 (3-11); Aspartate Aminotransferase 10 U/L (13-39); BUN Creatinine Ratio 29.1 (10-20); Bilirubin,Total 0.5 mg/dl (0.2-1.0); Blood Urea Nitrogen 25 mg/dl (6-23); Carbon Dioxide 29 mmol/L (21-32); Chloride 106 mmol/L (98-107); Est GFR (African American) 71.4 ml/min; Est GFR (Non-African American) 61.6 ml/min; Globulin 3.9 gm/dl (2.5-4.0); Glucose 122 mg/dl (70-99(Fasting)); Lipase 7 U/L (11-82); Potassium 4.5 mmol/L (3.5-5.1); Sodium 142 mmol/L (136-145); Total Protein 7.9 gm/dl (6.0-8.3)
[2024-01-04 08:17] LABS: Troponin I High Sensitivity 9.4 pg/ml (0-14)
[2024-01-04] MEDS: OPTIRAY 320 100ml IV ONE (08:36)
[2024-01-04 09:38] LABS: Appearance Urine Turbid (Clear); Bacteria Urine Automated 1+ (Negative); Bilirubin Urine Negative (Negative); Blood Urine 3+ (Negative); Color Urine Red; Glucose Urine UA Negative (Negative); Ketones Urine Negative (Negative); Leukocyte Esterase Urine 3+ (Negative); Nitrite Urine Positive (Negative); Specific Gravity Urine > 1.045 (1.000-1.030); Urobilinogen Urine Negative (Negative); WBC Urine Automated >30 /hpf (0-5)
--- NOTE | 2024-01-04 09:46 | CT Scan Report ---
ABDOMEN AND PELVIS CT WITH IV CONTRAST CT DOSE: 840.65 mGy.cm HISTORY: LLQ pain TECHNIQUE: Multiaxial CT images of the abdomen and pelvis were performed following the use of intrave nous contrast. A dose lowering technique was utilized adhering to the principles of ALARA. COMPARISON STUDY: Abdomen and pelvis CT 03/15/2023. FINDINGS: Persistent elevation of the right hemidiaphragm. Bibasilar linear densities favor subsegmen duglas atelectasis. No pneumoperitoneum. No pneumatosis. Postoperative changes seen within the bilateral hips. There is an old severe compression deformity at T12 with retropulsion and moderate central can al narrowing at this level. This remains unchanged. No acute fractures identified. There is a moderat e hiatus hernia, unchanged. Prior cholecystectomy. This likely accounts for the mild bile duct dilata tion. No hepatic or splenic masses. The adrenal glands and pancreas are unremarkable. No retroperiton eal lymphadenopathy. There is an ectatic abdominal aorta measuring 2.2 cm. No pelvic lymphadenopathy or pelvic free fluid. The pelvic structures are suboptimally assessed due to the metallic artifact. T here is thickening and enhancement within the bladder wall again noted. This is similar to the prior study and favors a cystitis. Small amount of fluid and gas within the endometrium of the uterus has i mproved. Mild rectal wall thickening has also improved. Colonic diverticulosis. No evidence for acute diverticulitis. No evidence for bowel obstruction. Normal appendix. Bilateral nephrolithiasis the do minant stone within the right renal pelvis measuring 6 mm. Bilateral renal hypodense lesions are agai n noted and favor cysts. There is urothelial enhancement within the bilateral renal collecting system s and ureters most pronounced on the left. There is mild fullness within the left renal collecting sy stem without dena hydronephrosis. There is a 7 mm calcification within the left deep pelvis on image 270. This is in close proximity to the distal left ureter. However, the distal left ureter is obscur ed by the metallic artifact at this location. This favors a phlebolith. A distal left ureteral stone is not excluded. The rectovaginal fistula seen on the prior study is not clearly identified on this e xamination. This may be obscured by the metallic artifact. IMPRESSION: 1. Mild rectal wall thickening which is improved. No evidence for fecal impaction at this time. 2. Small amount of gas and fluid within the endometrium which has improved. 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 3. Bladder wall thickening again noted consistent with a cystitis. There is also urothelial thickenin g within the bilateral renal collecting systems and ureters consistent with a bilateral pyelitis. Rec ommend correlation with urinalysis. 4. Mild fullness within the left renal collecting system without dena hydronephrosis. There is a 7 m m calcification within the left deep pelvis which favors a phlebolith. However, this is in close prox imity to the distal left ureter. Therefore, a distal left ureteral stone is not excluded. 5. Bilateral nephrolithiasis. 6. Additional findings as described above. ACT 112: Negative or not required by law. Electronically signed by: Young Monge M.D. 01/04/2024 9:44 AM
[2024-01-04 09:52] LABS: Protein Urine 2+ (Negative)
[2024-01-04 09:53] LABS: RBC Urine Automated >30 /hpf (0-4)
--- OUTSIDE RECORDS SUMMARY | 2024-01-04 10:08 | External Medical Summary | Summary of Care ---
Author Name Unknown Organization [facility] Address [address] [place] [address] Phone [phone] Care Team Providers Care Head Of Merchandise Buying Name Role Phone Manuelthanh Dandre Primary Care Provider Reason for Visit * Reason Comments Dosage Adjustment Via Phone (anticoag Cl inic) Encounter Details Date Type Department Care Team (Latest Contact Info) Description 12/05/2023 4:40 PM EST Anticoagulation Pharmacy Call Center [address] [place] [address] [facility] 58 60 [facility] [place] [address] Anticoagulation management encounter* Allergies Active Allergy Reactions Criticality Noted Date Comments Bacitracin Itching 02/20/2018 Ezetimibe 09/19/2008 Shellfish Allergy 03/25/2023 Sulfa Antibiotics 12/24/2017 Tramadol Itching 12/24/2017 documented as of this encounter (statuses as of 12/05/2023) Medications Medication Sig Dispensed Refills Start Date [...] by mouth at bedtime. 0 08/13/2023 Active Warfarin Sodium 1.5 MG OR TABS Take 0.5 Tablets by mouth every evening. 0 Active Lisinopril 5 MG Oral Tablet (Prinivil) Take 1 Tablet by mouth in the morning. 0 Active Atorvastatin Calcium 40 MG Oral Tablet (Lipitor) Take 1 Tablet by mouth in the morning. 0 Active Aspirin 81 MG Oral Tablet Chewable (Aspirin 81) Take 1 Tablet by mouth in the morning. 0 Active documented as of this encounter (statuses as of 12/05/2023) Active Problems Problem Noted Date Diagnosed Date [...] as of this encounter (statuses as of 12/05/2023) Resolved Problems Problem Noted Date Diagnosed Date Resolved Date Hyperparathyroidism, unspecified 10/19/2019 08/13/2023 documented as of this encounter (statuses as of 12/05/2023) Immunizations Name Administration Dates Next Due COVID-19 mRNA, LNP-s, No Pre serve, 2-Dose Series ([employer]) 08/19/2021,12/26/2020,12/05/2020 H1N1 2009 Influenza, IM 08/10/2009 Pneumococcal [...] as of this encounter Progress Notes * Julissa Jean, [facility] - 12/05/2023 10:18 AM EST Medication Therapy Disease Management - Anticoagulation Patient: Analy Haq | : 1940 Subjective [facility] Patient Anticoagulation Encounter Patient is a resident at: [facility] [place] -- CC to Yvette Boyd PA-C and Fax sent to number listed above detailing plan of care below. Please notify clinic with any unusual brusing or bleeding, N/V/D, medication or diet changes or anymissed or extra doses of Coumadin. Patient-Reported Symptoms: INR Result As of 12/05/2023 INR goal: 2.0-3.0 INR used for dosin.1 (12/05/2023) Assessment & Plan Warfarin Plan As of 12/05/2023 Full warfarin instructions: 2 mg every day Next INR check: 12/12/2023 Repeat PT/INR in 1 week(s) Weekly dose: establishing weekly dose Additional Dosing Information: Julissa Jean RPh Clinical Pharmacist 12/05/2023, 10:28 AM documented in this encounter Plan of Treatment Upcoming Encounters Date Type Department Care Team (Late st Contact Info) Description 12/24/2023 11:20 AM EDT Office Visit Neurology [facility] Awilda Smith [address] [facility] [place] [address] Anisha Swift PA-C [address] [facility] [place] [address] Health Maintenance Due Date Last Done Comments [...] D LEVEL ONCE IN A LIFETIME-USE SMARTSET# [id number] Completed 05/31/2020, 11/25/2019, 08/06/2019, Additional history exists [...] as of this encounter Visit Diagnoses Diagnosis Anticoagulation management encounter- Primary Encounter for therapeutic drug monitoring documented in this encounter Care Teams Head Of Merchandise Buying Relationship Specialty Start Date End Date Dandre Baldwin DO [address] [facility] [place] [address] PCP - General Internal Medicine 03/13/22 documented as of this encounter"
--- OUTSIDE RECORDS SUMMARY | 2024-01-04 10:08 | External Medical Summary ---
Author Name Unknown Address Unknown Organization [facility] [address] [place] [address] Laboratory Report Ordering Provider Test Date Status SOLE HENDRIX 12/26/2023 05:57:00 Final Warfarin Therapy
INR: 2 .0-3.0 conventional anticoagulation
INR: 2.5- 3.5 high intensity anticoagulation Observation Date Value Abnormality Reference (Units ) Status PT 12/26/2023 05:57:00 17.5 Above high normal 11 .6-15.2 (seconds) Final INR 12/26/2023 05:57:00 1.4 Above high normal 0. 8-1.2 Final Performing Location [facility] [address] [place] [address]
--- OUTSIDE RECORDS SUMMARY | 2024-01-04 10:08 | External Medical Summary | Summary of Care ---
Author Name Unknown Organization [facility] Address [address] [place] [address] Phone [phone] Care Team Providers Care Iron Setter Name Role Phone Dandre Baldwin Primary Care Provider [phone] Reason for Visit * Reason Comments Hospital Follow-Up NEW PATIENT Encounter Details Date Type Department Care Team (Late st Contact Info) Description 12/24/2023 11:20 AM EDT Office Visit Neurology [facility] [address] [facility] [place] [address] Anisha Swift PA-C [address] [facility] [place] [address] History of cerebrovascular accident*; HTN, goal below 150/90 Allergies Active Allergy Reactions Criticality Noted Date Comments Bacitracin Itching 02/20/2018 Ezetimibe 09/19/2008 Shellfish Allergy 03/25/2023 Sulfa Antibiotics 12/24/2017 Tramadol Itching 12/24/2017 documented as of this encounter (statuses as of 12/24/2023) Medications Medication Sig Dispensed Refills Start Date [...] Warfarin Sodium 1.5 MG OR TABS Take 2 mg by mouth every evening. 0 Active Lisinopril 5 MG Oral Tablet (Prinivil) Take 1 Tablet by mouth in the morning. 0 Active Atorvastatin Calcium 40 MG Oral Tablet (Lipitor) Take 1 Tablet by mouth in the morning. 0 Active Aspirin 81 MG Oral Tablet Chewable (Aspirin 81) Take 1 Tablet by mouth in the morning. 0 Active Saline Nasal [place] 0.65 % Nasal Solution (Follansbee) Administer 1 [place] into nostril as needed for Congestion. 0 12/12/2023 Active Saccharomyces boulardii 250 MG Oral Packet Take 250 mg by mouth in the morning. 0 12/12/2023 Active documented as of this encounter (statuses as of 12/24/2023) Active Problems Problem Noted Date Diagnosed Date Acute deep vein thrombosis ( DVT) of femoral vein of right lower extremity 12/12/2023 History of cerebrovascular accident 12/12/2023 Seasonal allergic rhinitis 12/12/2023 Closed avulsion fracture of greater trochanter of [...] as of this encounter (statuses as of 12/24/2023) Resolved Problems Problem Noted Date Diagnosed Date Resolved Date Unspecified dementia, severe , without behavioral disturbance, psychotic disturbance, mood disturbance, and anxiety 12/12/2023 12/12/2023 Unspecified dementia, severe , without behavioral disturbance, psychotic disturbance, mood disturbance, and anxiety 12/12/2023 12/12/2023 Unspecified dementia, severe , without behavioral disturbance, psychotic disturbance, mood disturbance, and anxiety 12/12/2023 12/12/2023 Non-pressure chronic ulcer of buttock 08/13/2023 12/12/2023 Hyperparathyroidism, unspecified 10/19/2019 08/13/2023 documented as of this encounter (statuses as of 12/24/2023) Immunizations Name Administration Dates Next Due COVID-19 mRNA, LNP-s, No Pre serve, 2-Dose Series ([facility]) 08/19/2021,12/26/2020,12/05/2020 H1N1 2009 Influenza, IM 08/10/2009 Pneumococcal [...] Sign Reading Time Taken Comments Blood Pressure 130/70 12/24/2023 11:15 AM EDT Pulse 96 12/24/2023 11:15 AM EDT Temperature 36.3 C (97.4 F) 12/24/2023 1 1:15 AM EDT Respiratory Rate - - Oxygen Saturation 98% 12/24/2023 11: 15 AM EDT Inhaled Oxygen Concentration - - Weight 51.6 kg (113 lb 12.8 oz) 024 11:15 AM EDT Height - - Body Mass Index 20.81 03/25/2023 4:06 PM EDT documented in this [...] as of this encounter Progress Notes * Anisha Swift PA-C - 12/24/2023 11:14 AM EDT HISTORY & PHYSICAL EXAMINATION - NEUROLOGY Name: Analy Haq Date: 12/24/2023 Time: 11:14 AM Referring Provider: Dhaval Zarate, * Chief Complaint: Chief Complaint Patient presents with Hospital Follow-Up This is a 83 year old right handed woman returns today for follow up for hospital discharge. HPI & Source of HPI The patient and family member daughter was the historian, and they are reliable. She was seen at [facility] 11/20/23 She has a PMH- breast CA [place] palsy dementia arrived hypertensive andnew onset left hemiparesis and right gaze preference. Was not considered an IV thrombolytic candidate due to timing of onset of symptoms. A CTA head & neck revealing bilateral calcified ICA stenosis. MRI brain confirms right subcortical/frontal lobe area of restricted diffusion consistent with acute small vessel ischemic stroke likely hypertensive etiology.she was started on coumadin (found to have DVTs) and was started on aspirin 81 mg. She has more use of her left hand but does not reallywalk she is monika lift assist to get to chair and bed. She is currently on a mechanical soft diet and does well with it. Her appetite has been good in general. 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 She now resides at [facility]. Denies CP, SOB, abdominal pain, N, V. I have reviewed the patient's medications and allergies, past medical, surgical, social and family history, updating these as appropriate. See Histories section of the electronic medical record for adisplay of this information. 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 ([facility]) F33.1 Closed avulsion fracture of greater trochanter of femur with routine healing, right S72.111D S/p left hip fracture Z87.81 S/P hip hemiarthroplasty Z96.649 Slow transit constipation K59.01 S/P right hip fracture Z87.81 SIADH (syndrome of inappropriate ADH production) ([facility]) E22.2 Acute deep vein thrombosis (DVT) of femoral vein of right lower extremity ([facility]) I82.411 History of cerebrovascular accident Z86.73 Seasonal allergic rhinitis J30.2 Family History Problem Relation Age of Onset Hypertension Mother Alzheimer's disease Mother Hypertension Father Heart Disorder Father Diabetes Grandmother (Paternal) Breast Cancer Aunt (Paternal) Breast Cancer Aunt (Paternal) Breast Cancer Aunt (Paternal) Heart Disorder Brother unkown Medications: Are you taking your medications? yes Current Outpatient Medications Medication Sig Dispense Refill Famotidine 20 MG Oral Tablet (Pepcid) Take by mouth 1 Tablet in the morning AND 1 Tablet before bedtime. 180 Tablet 3 Loratadine 10 MG Oral Tablet (Claritin) Take by mouth 1 Tablet in the morning. 90 Tablet 3 Polyethylene Glycol 3350 17 GM/SCOOP Oral Powder (MiraLax) Take by mouth 17 g in the morning. Dissolve one heaping tablespoon in 8 ounces of water or juice.. (Patient taking differently: Take 17 g bymouth in the morning and 17 g before bedtime. Dissolve one heaping tablespoon in 8 ounces of water or juice..) 1734 g 3 Acetaminophen 325 MG Oral Tablet (Tylenol) Take by mouth 2 Tablets every 4 hours as needed for Fever >38C(100.5F) or Pain, Breakthrough. 100 Tablet 3 Sertraline HCl 25 MG Oral Tablet (Zoloft) Take 1 Tablet by mouth in the morning. Docusate Sodium 100 MG Oral Tablet Take 1 Tablet by mouth in the morning. Potassium Chloride Mimi ER 10 MEQ Oral Tablet Extended Release Take 1 Tablet by mouth in the morning. Omeprazole 20 MG Oral Capsule Delayed Release (PriLOSEC) Take 1 Capsule by mouth in the morning and1 Capsule before bedtime. Mirtazapine 15 MG Oral Tablet (Remeron) Take 1 Tablet by mouth at bedtime. Warfarin Sodium 1.5 MG OR TABS Take 2 mg by mouth every evening. Lisinopril 5 MG Oral Tablet (Prinivil) Take 1 Tablet by mouth in the morning. Atorvastatin Calcium 40 MG Oral Tablet (Lipitor) Take 1 Tablet by mouth in the morning. Aspirin 81 MG Oral Tablet Chewable (Aspirin 81) Take 1 Tablet by mouth in the morning. Saline Nasal [place] 0.65 % Nasal Solution (Follansbee) Administer 1 [place] into nostril as needed for Congestion. Saccharomyces boulardii 250 MG Oral Packet Take 250 mg by mouth in the morning. No current facility-administered medications for this visit. Review of patient's allergies indicates: Allergen Reactions Bacitracin Itching Ezetimibe Shellfish Allergy Sulfa Antibiotics Tramadol Itching Review of Systems: A total number of 10 systems were reviewed pertinent negative and positives not addressed in HPI are listed in the following review. Physical Exam: Constitutional: BP 130/70 (BP Site: Right Arm, BP Position: Sitting, BP Cuff Size: Regular) | Pulse96 | Temp 36.3 C (97.4 F) (Tympanic) | Wt 51.6 kg (113 lb 12.8 oz) | SpO2 98% | BMI 20.81 kg/m | BSA 1.5 m , appearance nourished, healthy, and normal Cardiovascular: normal S-1 and S-2 and regular rate and rhythm Respiratory: clear to auscultation (CTA) and no rales, ronchi or wheeze Musculoskeletal: no peripheral edema Skin: normal and intact Eyes: extraocular muscles intact (EOMI) NEUROLOGIC EXAMINATION: Mental status: Alert and interactive Speech dysphasia Cranial Nerves Flattening of left nasolabial fold Coordination: no abnormal or extraneous movements Gait/Stance: Posture abnormal: sitting in wheelchair. Gait no assessed . Strength: generalized weakness and deconditioned LABORATORY: Recent labs reviewed Review of prior Studies: MRI brain-. There is an oval 2 x 1 x 1 cm focus of diffusion restriction and T2 hyperintensity in the right internal capsule and right frontal lobe deep white matter consistent with acute small vessel infarct. Moderate diffuse cerebral atrophy, similar to previous. Periventricular white matter T2 hyperintensity consistent with chronic small vessel disease. No other acute infarcts or hemorrhage identified. CTA neck-Calcified plaque in the proximal right internal carotid artery causing 50% stenosis. Thereis 30% stenosis of the proximal left internal carotid artery. CTA head-No acute findings in the arteries of the head/brain. Impression: Analy Haq is a 83 year old woman with a history of stroke. Her neurologic examination today reveals left hemiplegic. The history and examination are suggestive of diagnosis/problem list. Testing and Referrals ordered: none ICD-10-CM 1. History of cerebrovascular accident Z86.73 2. HTN, goal below 150/90 I10 Return as needed Continue aspirin 81 mg for life Coumadin for DVT bilateral LE - will need length of treatment assessed Optimize HTN HDL DM LDL<70 consider patients age Flare Stitcher soft diet and observation during meals Continue physical therapy for mobility to avoid contractures PCP for medical management Call with questions concerns Medical Decision Making (determined by lowest of 2 of 3 elements): The medical decision making element of the number and complexity of problems addressed included at least 2 or more stable chronic illnesses (level 4). The medical decision making element of risk of complications, morbidity, and mortality of patient management is moderate (level 4) due to prescription drug management (moderate risk). The medical decision making element of the amount and complexity of data reviewed and analyzed included an independent interpretation of a test (level 4 at least). When 2 of 3 reach level 4, then this element is considered extensive (level 5). I personally spent a total of 30 minutes. This time was for a new office or established visit and was on the same calendar day. Education / Consultation - Topics covered as I spent 20 minutes, which is greater than 50% of this visit, counseling the patient on: Diagnostic Results Prognosis Importance of compliance with chosen treatment options Risk factor reductions Patient and family education Consulted with physician: Lee Toledo DO was available for direct supervision. Copy of note sent to PCP and Referring Provider. Total time of visit: 30 minutes. Anisha Swift PA-C Neurology [facility] [place] [address] [facility] [place] [address] 12/24/2023 11:14 AM documented in this encounter Nursing Notes * Huam Anthony LPN - 12/24/2023 11:20 AM EDT Chief Complaint Patient presents with Hospital Follow-Up NEW PATIENT Pt was in [facility] for stroke. documented in this encounter Plan of Treatment Upcoming Encounters Date Type Department Care Team (Late st Contact Info) Description 12/26/2023 4:40 PM EDT Anticoagulation Pharmacy Call Center [address] [facility] [place] [address] [facility] [address] 60 [facility] [place] [address] Health Maintenance Due Date Last Done Comments Albumin/Creatinine Ratio 1956 DTaP,Tdap,and Td Vaccines (2 - Td or Tdap) 10/15/2021 10/15/2011 Depression Screening 05/18/2022 05/18/2021 Influenza Vaccine (FLU shot) (#1) 2023 07/23/2022, 09/05/2021, 07/13/2020, Additional history exists DXA Scan 05/02/2024 05/02/2022, 04/07, 12/03/2018, Additional history exists Zoster Vaccines Completed 11/04/2019, 05/08, 10/19/2010 VITAMIN D LEVEL ONCE IN A LIFETIME-USE SMARTSET# [id number] Completed 05/31/2020, 11/25/2019, 08/06/2019, Additional history exists Pneumococcal Vaccine: 65+ Years Completed 06/04/2023, 06/27/2015, 12/18/2011 COVID-19 Vaccine Completed 07/30/2023, , 12/26/2020, Additional history exists GARDASIL-HPV IMMUNIZATION SERIES Aged [...] as of this encounter Visit Diagnoses Diagnosis History of cerebrovascular accident- Primary Transient ischemic attack (TIA), and cerebral infarction without residual deficits HTN, goal below 150/90 documented in this encounter Care Teams Iron Setter Relationship Specialty Start Date End Date Dandre Baldwin DO [facility] [place], [place] [id number] PCP - General Internal Medicine 03/13/22 documented as of this encounter"
--- OUTSIDE RECORDS SUMMARY | 2024-01-04 10:08 | External Medical Summary | Summary of Care ---
Author Name Unknown Organization [facility] Address [address] [place] [address] Phone [phone] Care Team Providers Care Integration Technician Name Role Phone Dandre Baldwin Primary Care Provider Encounter Details Date Type Department Care Team (Late st Contact Info) Description 12/26/2023 Orders Only Lab Mobile Phlebotomy [facility] [address], [place] [id number] Yvette Boyd PA-C [address] [place] [address] Encounter for deep vein thrombosis (DVT) prophylaxis* Allergies Active Allergy Reactions Criticality Noted Date Comments Bacitracin Itching 02/20/2018 Ezetimibe 09/19/2008 Shellfish Allergy 03/25/2023 Sulfa Antibiotics 12/24/2017 Tramadol Itching 12/24/2017 documented as of this encounter (statuses as of 12/26/2023) Medications Medication Sig Dispensed Refills Start Date [...] in the morning. 0 Active Saline Nasal [place] 0.65 % Nasal Solution (Trego) Administer 1 [place] into nostril as needed for Congestion. 0 12/12/2023 Active Saccharomyces boulardii 250 MG Oral Packet Take 250 mg by mouth in the morning. 0 12/12/2023 Active documented as of this encounter (statuses as of 12/26/2023) Active Problems Problem Noted Date Diagnosed Date [...] as of this encounter (statuses as of 12/26/2023) Resolved Problems Problem Noted Date Diagnosed Date [...] as of this encounter (statuses as of 12/26/2023) Immunizations Name Administration Dates Next Due COVID-19 mRNA, LNP-s, No Pre serve, 2-Dose Series ([employer]) 08/19/2021,12/26/2020,12/05/2020 Covid-19, Mrna, Lnp-s, Pf, B ivalent, 30 Mcg, IM, 12 yrs and above ([employer]) 07/30/2023 H1N1 2009 Influenza, IM 08/10/2009 Pneumococcal Conjugate Vacc, 13 Valent (Prevnar) 06/27/2015 Pneumococcal Polysaccharide PPV23 (Pneumovax) 12/18/2011 RSV Vac., Bivalent, Perfusio n F, Pf,0.5 Ml (Abrysvo) 07/11/2023 Season Influenza, Quad, PF, Adjuvanted, 65+ Yrs, IM (FLUAD) 07/13/2020 Seasonal Influenza, Quadriva lent Hd (Fluzone Hd) 09/05/2021 Seasonal Influenza, Quadriva lent Hd, 65+ Yrs 07/26/2023 Seasonal Influenza, Quadriva lent, No Preserve, IM [...] as of this encounter Plan of Treatment Upcoming Encounters Date Type Department Care Team (Late st Contact Info) Description 12/26/2023 4:40 PM EDT Anticoagulation Pharmacy Call Center [phone] [facility] [place] [address] [facility], [facility] [address] [facility] [place] [address] Scheduled Orders Name Type Priority Associated Diagnoses Orde r Schedule PT INR Lab Routine Encounter for deep vein thrombosis (DVT) prophylaxis Expected: 12/26/2023, Expires: 12/25/2024 Health Maintenance Due Date Last Done Comments Albumin/Creatinine Ratio 1958 DTaP,Tdap,and Td Vaccines (2 - Td or Tdap) 10/15/2021 10/15/2011 Depression Screening 05/18/2022 05/18/2021 COVID-19 Vaccine ( season) 2023 07/30/2023, 07/30/2023, 08/19/2021, Additional history exists DXA Scan 05/02/2024 05/02/2022, 04/07, 12/03/2018, Additional history exists Zoster Vaccines Completed 11/04/2019, 05/08, 10/19/2010 VITAMIN D LEVEL ONCE IN A LIFETIME-USE SMARTSET# [id number] Completed 05/31/2020, 11/25/2019, 08/06/2019, Additional history exists Pneumococcal Vaccine: 65+ Years Completed 06/04/2023, 06/27/2015, 12/18/2011 Influenza Vaccine (FLU shot) Completed , 07/23/2022, 09/05/2021, Additional history exists GARDASIL-HPV IMMUNIZATION SERIES Aged [...] as of this encounter Visit Diagnoses Diagnosis Encounter for deep vein thrombosis (DVT) prophylaxis- Primary documented in this encounter Care Teams Integration Technician Relationship Specialty Start Date End Date Dandre Baldwin DO [address] [place] [id number] PCP - General Internal Medicine 03/13/22 documented as of this encounter
--- OUTSIDE RECORDS SUMMARY | 2024-01-04 10:08 | External Medical Summary ---
Author Name Unknown Address Unknown Organization [facility] [address] [place] [address] Laboratory Report Ordering Provider Test Date Status SOLE HENDRIX 12/12/2023 05:45:00 Final Warfarin Therapy
INR: 2 .0-3.0 conventional anticoagulation
INR: 2.5- 3.5 high intensity anticoagulation Observation Date Value Abnormality Reference (Units ) Status PT 12/12/2023 05:45:00 29.1 Above high normal 11 .6-15.2 (seconds) Final INR 12/12/2023 05:45:00 2.7 Above high normal 0. 8-1.2 Final Performing Location [facility] [address] [place] [address]
--- OUTSIDE RECORDS SUMMARY | 2024-01-04 10:08 | External Medical Summary | Summary of Care ---
Author Name Unknown Organization [facility] Address [address] [place] [address] Phone [phone] Care Team Providers Care Electronic News Gathering Editor Name Role Phone Dandre Baldwin Primary Care Provider Reason for Visit * Reason Onset Date Comments [facility] Visit 12/12/2023 Regulatory Encounter Details Date Type Department Care Team (Latest Contact Info) Description 12/12/2023 3:00 PM EST [facility] Visit [facility], [address] [place] [address] Ulices Miller MD [address] [place] [address] [place] [address] History of cerebrovascular accident*; Acute deep vein thrombosis (DVT) of femoral vein of right lower extremity ([facility]); Senile dementia, uncomplicated ([facility]); Moderate episode of recurrent major depressive disorder (HCC); SIADH (syndrome of inappropriate ADH production) ([facility]); Spinal stenosis of lumbar region without neurogenic claudication; HTN, goal below 150/90; Senile osteoporosis; Seasonal allergic rhinitis, unspecified trigger Allergies Active Allergy Reactions Criticality Noted Date Comments Bacitracin Itching 02/20/2018 Ezetimibe 09/19/2008 Shellfish Allergy 03/25/2023 Sulfa Antibiotics 12/24/2017 Tramadol Itching 12/24/2017 documented as of this encounter (statuses as of 12/12/2023) Medications Medication Sig Dispensed Refills Start Date [...] in the morning. 0 Active Saline Nasal [place] 0.65 % Nasal Solution ([place]) Administer 1 [place] into nostril as needed for Congestion. 0 12/12/2023 Active Saccharomyces boulardii 250 MG Oral Packet Take 250 mg by mouth in the morning. 0 12/12/2023 Active documented as of this encounter (statuses as of 12/12/2023) Active Problems Problem Noted Date Diagnosed Date [...] as of this encounter (statuses as of 12/12/2023) Resolved Problems Problem Noted Date Diagnosed Date [...] as of this encounter (statuses as of 12/12/2023) Immunizations Name Administration Dates Next Due COVID-19 mRNA, LNP-s, No Pre serve, 2-Dose Series ([employer]) 08/19/2021,12/26/2020,12/05/2020 H1N1 2009 Influenza, IM 08/10/2009 Pneumococcal [...] Progress Notes * Ulices Miller MD - 12/12/2023 4:19 PM EST Regulatory Visit TRANSITION EVENT: Type: Regulatory visit Date: December 11 Code Status: No Code Name: Analy Haq Date of : 1940 This note pertains to care provided at [facility]. Please see facility medical record for original note. This note is not to be edited or addended in [employer]ialive. 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, uncomplicated ([facility]) F03.90 Moderate episode of recurrent major depressive disorder ([facility]) F33.1 Closed avulsion fracture of greater trochanter of femur with routine healing, right S72.111D S/p left hip fracture Z87.81 S/P hip hemiarthroplasty Z96.649 Slow transit constipation K59.01 S/P right hip fracture Z87.81 SIADH (syndrome of inappropriate ADH production) ([facility]) E22.2 Acute deep vein thrombosis (DVT) of femoral vein of right lower extremity ([facility]) I82.411 History of cerebrovascular accident Z86.73 Seasonal allergic rhinitis J30.2 Past Medical History: Diagnosis Date Breast cancer [...] Sulfa Antibiotics Tramadol Itching She is now having acute problem(s). Current problems include daughter has noted some increased nasal congestion over the last few weeks. Is on loratadine for allergies. Patient states her nose has been stuffy "all my life." She denies sore throat, cough, or shortness of breath. She has not had a fever. Patient recently readmitted to facility after hospitalization with acute CVA and right lower extremity DVT. Is now anticoagulated with Coumadin. Is not having pain issues. Is not having behavioral problems. Results for orders placed or performed in visit on 12/12/23 PT INR Result Value Ref Range Prothrombin Time 29.1 (H) 11.6 - 15.2 seconds INR 2.7 (H) 0.8 - 1.2 CBC Results: Results for orders placed or [...] orders placed or performed in visit on 12/11/23 BASIC METABOLIC PANEL Result Value Ref Range BUN 21 (H) 6 - 20 mg/dL Creatinine 0.8 0.5 - 1.0 mg/dL Estimated Glomerular Filtration Rate 70 >=60 mL/min Sodium 141 135 - 146 mmol/L Potassium 4.4 3.5 - 5.1 mmol/L Chloride 107 98 - 107 mmol/L CO2 25 22 - 32 mmol/L Anion Gap 9 7 - 15 mmol/L Glucose 93 70 - 120 mg/dL Calcium 10.0 8.4 - 10.2 mg/dL Lipid Panel Results: Results for orders placed or performed in visit on 11/23/20 LIPID PANEL WITH DIRECT LDL IF TRIGLYCERIDE IS ELEVATED Result Value Ref Range Triglycerides 64 <=174 mg/dL Cholesterol 193 <200 mg/dL HDL Cholesterol 73 >49 mg/dL Non-HDL Cholesterol 120 <=159 mg/dL LDL Cholesterol 107 <=129 mg/dL ROS: CONSTITUTIONAL: No change in weight, No fevers, sweats, or chills, and +weakness EYE: No recent significant change in vision and No eye pain, redness, discharge EARS: No ear pain, No drainage, No tinnitus or vertigo, and No recent change in hearing NOSE: No history of frequent colds or sinusitis, No significant epistaxis, and +nasal congestion/allergies MOUTH: No bleeding gums, No thrush, or No sore throat PULMONARY: No cough, sputum, or hemoptysis, No wheezing, No shortness of breath, and No recent change in breathing CARDIOVASCULAR: No chest pain, No shortness of breath, No dyspnea on exertion, No orthopnea, No paroxysmal nocturnal dyspnea, No edema, No palpitations, and No syncope GASTROINTESTINAL: No abdominal pain, No change in bowel habits, No significant heartburn, No significant change in appetite, No nausea, vomiting, diarrhea, or constipation, No hematemesis, No blood in stools or black tarry stools, No abdominal bloating or early satiety, and +dysphagia FEMALE: No dysuria and No frequency, +incontinence of bowel and bladder HEMATOLOGIC: No anemia, No chills, and No weight loss EXTREMITIES: +OA and osteoporosis with h/o numerous fractures SKIN/INTEGUMENTARY: No rash NEUROLOGIC: No headaches, No seizures, and +dementia and h/o CVA PSYCHIATRIC: +depression O: I reviewed the most recent facilities vitals. General: alert, no distress, well nourished, and well developed Head: Normocephalic, No masses, lesions, tenderness or abnormalities Neuro: alert & oriented x 3 with fluent speech, +left facial droop Eye Exam: PERRLA, conjunctiva are pink and non-injected, sclera clear Ears: External ears normal Nose: no mucosal erythema, no mucosal edema, no purulent discharge, pale mucosa, no sinus tenderness Oropharynx: no exudate, no erythema, lips, buccal mucosa, and tongue normal, and mucous membranes are moist Neck: supple, no adenopathy, no bruits Heart: regular rate & rhythm, no murmur, and no gallops Lungs: chest symmetric with normal AP diameter, no chest deformities noted, no chest wall tenderness, lungs clear to auscultation Abdomen: abdomen soft, non-tender, normal bowel sounds, and no masses or organomegaly Extremities: no edema, no clubbing, no cyanosis A: History of cerebrovascular accident (Primary)--recent CVA. Continue aspirin 81 mg daily and atorvastatin 40 mg daily. Acute deep vein thrombosis (DVT) of femoral vein of right lower extremity (HCC)--now to be on lifelong Coumadin. Has had DVT in past as well. Senile dementia, uncomplicated (HCC)--stable. No behaviors Moderate episode of recurrent major depressive disorder (HCC)--continue mirtazapine 7.5 mg daily and sertraline 25 mg daily SIADH (syndrome of inappropriate ADH production) ([facility])-stable. Most recent sodium was 141. Spinal stenosis of lumbar region without neurogenic claudication--continue Tylenol PRN. HTN, goal below 150/90--continue lisinopril 5 mg daily Senile osteoporosis--continue calcium and vitamin D. Seasonal allergic rhinitis, unspecified trigger--continue loratadine 10 mg daily and add saline nasal spray. P: Medications reviewed. Please refer to MAR in the facility's medical record for the most up-to-date medication list. Continue present medication(s): and Begin medication(s): Saline nasal spray for nasal congestion. Has slight clear rhinorrhea today and exam consistent with allergic rhinitis Reviewed correction record for: vital signs, weight, bowel, and bladder function, and ADLs. Labs reviewed Continue current treatment plan as ordered Continue to follow up as needed and as scheduled [facility] Home Treatment Given: n/a Electronically signed by: Ulices Miller MD I spent a total of 33 minutes coordinating, documenting, and providing care for this patient excluding time spent in the performance of separately billed services or time spent by another provider/QHP. documented in this encounter Plan of Treatment Upcoming Encounters Date Type Department Care Team (Late st Contact Info) Description 12/24/2023 11:20 AM EDT Office Visit Neurology [place] [address] [place] [address] Anisha Swift PA-C [address] [place] [address] 12/26/2023 4:40 PM EDT Anticoagulation Pharmacy Call Center WB [address] [facility] [place] [address] [facility] 58 60 [facility] [place] [address] Health Maintenance Due Date Last Done Comments Albumin/Creatinine Ratio 1958 DTaP,Tdap,and Td Vaccines (2 - Td or Tdap) 10/15/2021 10/15/2011 Depression Screening 05/18/2022 05/18/2021 Influenza Vaccine (FLU shot) (#1) 2023 07/23/2022, 09/05/2021, 07/13/2020, Additional history exists DXA Scan 05/02/2024 05/02/2022, 04/07, 12/03/2018, Additional history exists Zoster Vaccines Completed 11/04/2019, 05/08, 10/19/2010 VITAMIN D LEVEL ONCE IN A LIFETIME-USE SMARTSET# [id number] Completed 05/31/2020, 11/25/2019, 08/06/2019, Additional history exists [...] (TIA), and cerebral infarction without residual deficits Acute deep vein thrombosis (DVT) of femoral vein of right lower extremity (HCC) Senile dementia, uncomplicated (HCC) Senile dementia, uncomplicated Moderate episode of recurrent major depressive disorder (HCC) SIADH (syndrome of inappropriate ADH production) (HCC) 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
--- OUTSIDE RECORDS SUMMARY | 2024-01-04 10:08 | External Medical Summary | Summary of Care ---
Author Name Unknown Organization [facility] Address [address] [place] [address] Phone [phone] Care Team Providers Care Private Tutor Name Role Phone Manuelthanh Dandre Primary Care Provider Reason for Visit * Reason Comments Dosage Adjustment Via Phone (anticoag Cl inic) Encounter Details Date Type Department Care Team (Latest Contact Info) Description 12/26/2023 4:40 PM EDT Anticoagulation Pharmacy Call Center [address] [place] [address] [facility] 58 60 [facility] [place] [address] Anticoagulation management encounter* Allergies Active Allergy Reactions [...] in the morning. 0 Active Saline Nasal [place] 0.65 % Nasal Solution ([place]) Administer 1 [place] into nostril as needed for Congestion. 0 [...] mRNA, LNP-s, No Pre serve, 2-Dose Series ([employer]) 08/19/2021,12/26/2020,12/05/2020 Covid-19, Mrna, Lnp-s, Pf, B ivalent, 30 Mcg, IM, 12 yrs and above ([employer]) 07/30/2023 H1N1 2009 Influenza, IM 08/10/2009 Pneumococcal [...] of this encounter Progress Notes * Julissa Jean RPh - 12/26/2023 9:33 AM EDT Images from the original note were not included. Medication Therapy Disease Management - Anticoagulation Patient: Analy Haq | : 1940 [facility] Patient Anticoagulation Encounter Patient is a resident at: [facility] [place] -- CC to Yvette Boyd PA-C and Fax sent to number listed above detailing plan of care below. Please notify clinic with any unusual brusing or bleeding, N/V/D, medication or diet changes or anymissed or extra doses of Coumadin. Subjective Patient-Reported Symptoms: Objective Current Warfarin Dose As of 12/26/2023 Warfarin maintenance plan: 2 mg (1 mg x 2) every day INR Result As of 12/26/2023 INR goal: 2.0-3.0 INR used for dosin.4 (12/26/2023) Assessment & Plan Warfarin Plan As of 12/26/2023 Full warfarin instructions: 12/25: 4 mg; Otherwise 2 mg every day Next INR check: 01/09/2024 Repeat PT/INR in 2 week(s) Weekly dose: not changed Additional Dosing Information: Julissa Jean RPh Clinical Pharmacist 12/26/2023, 9:35 AM documented in this encounter Plan of [...] D LEVEL ONCE IN A LIFETIME-USE SMARTSET# [id number] Completed 05/31/2020, 11/25/2019, 08/06/2019, Additional history exists [...] monitoring documented in this encounter Care Teams Private Tutor Relationship Specialty Start Date End Date Dandre Baldwin DO [address] [place] [address] PCP - General Internal Medicine 03/13/22 documented as of this encounter"
--- OUTSIDE RECORDS SUMMARY | 2024-01-04 10:08 | External Medical Summary ---
Author Name Unknown Address Unknown Organization [facility] [address] [place] [address] Laboratory Report Ordering Provider Test Date Status SOLE HENDRIX 12/11/2023 05:58:00 Final Observation Date Value Abnormality Reference (Units ) Status BUN 12/11/2023 05:58:00 21 Above high normal 6-20 (mg/dL) Final Creatinine 12/11/2023 05:58:00 0.8 0.5-1.0 (mg/dL) Final Glomerular filtration rate/1.73 sq M.predicted [Volume Rate/Area] in Serum, Plasma or Blood by Creatinine-based formula (CKD-EPI) 12/11/2023 05:58:00 70 >=60 (mL/min) Final eGFR is calculated based on the CKD-EPI 2020 equation SODIUM 12/11/2023 05:58:00 141 135-146 (m mol/L) Final Potassium 12/11/2023 05:58:00 4.4 3.5-5.1 (m mol/L) Final Cl 12/11/2023 05:58:00 107 98-107 (mm ol/L) Final CO2 12/11/2023 05:58:00 25 22-32 (mmo l/L) Final Anion gap 12/11/2023 05:58:00 9 7-15 (mmol /L) Final Glucose 12/11/2023 05:58:00 93 70-120 (mg /dL) Final Calcium 12/11/2023 05:58:00 10.0 8.4-10.2 ( mg/dL) Final Performing Location [facility] [address] [place] [address]
--- OUTSIDE RECORDS SUMMARY | 2024-01-04 10:08 | External Medical Summary | Summary of Care ---
Author Name Unknown Organization [facility] Address [address] [place] [address] Phone [phone] Care Team Providers Care Director Card Name Role Phone Dandre Baldwin Primary Care Provider [phone] Encounter Details Date Type Department Care Team (Late st Contact Info) Description 12/11/2023 Orders Only Lab Mobile Phlebotomy [facility] [address] [place], [place] [id number] Yvette Boyd PA-C [address] [place] [address] HTN, goal to be determined* Allergies Active Allergy Reactions Criticality Noted Date Comments Bacitracin Itching 02/20/2018 Ezetimibe 09/19/2008 Shellfish Allergy 03/25/2023 Sulfa Antibiotics 12/24/2017 Tramadol Itching 12/24/2017 documented as of this encounter (statuses as of 12/11/2023) Medications Medication Sig Dispensed Refills Start Date [...] as of this encounter (statuses as of 12/11/2023) Active Problems Problem Noted Date Diagnosed Date [...] as of this encounter (statuses as of 12/11/2023) Resolved Problems Problem Noted Date Diagnosed Date Resolved Date Hyperparathyroidism, unspecified 10/19/2019 08/13/2023 documented as of this encounter (statuses as of 12/11/2023) Immunizations Name Administration Dates Next Due COVID-19 mRNA, LNP-s, No Pre serve, 2-Dose Series ([employer]) 08/19/2021,12/26/2020,12/05/2020 H1N1 2009 Influenza, IM 08/10/2009 Pneumococcal [...] Care Team (Late st Contact Info) Description 12/12/2023 4:40 PM EST Anticoagulation Pharmacy Call Center [address] [place] [address] [facility] 58 60 [facility] [place] [address] 12/24/2023 11:20 AM EDT Office Visit Neurology [facility] [place] Smith [address] [place] [address] Anisha Swift PA-C [address] [place] [address] Pending Results Name Type Priority Associated Diagnoses Date /Time BASIC METABOLIC PANEL Lab Routine HTN, goal to be determined 12/11/2023 5:58 AM EST Scheduled Orders Name Type Priority Associated Diagnoses Orde r Schedule BASIC METABOLIC PANEL Lab Routine HTN, goal to be determined Expected: 12/11/2023, Expires: 12/10/2024 Health Maintenance Due Date Last Done Comments [...] D LEVEL ONCE IN A LIFETIME-USE SMARTSET# [id number] Completed 05/31/2020, 11/25/2019, 08/06/2019, Additional history exists [...] as of this encounter Visit Diagnoses Diagnosis HTN, goal to be determined- Primary Unspecified essential hypertension documented in this encounter Care Teams Director Card Relationship Specialty Start Date End Date Dandre Baldwin DO [address] [place] [address] PCP - General Internal Medicine 03/13/22 documented as of this encounter
--- OUTSIDE RECORDS SUMMARY | 2024-01-04 10:08 | External Medical Summary | Summary of Care ---
Author Name Unknown Organization [facility] Address [address] [place] [address] Phone [phone] Care Team Providers Care Medical Sales Name Role Phone Manuelthanh Dandre Primary Care Provider Reason for Visit * Reason Comments Dosage Adjustment Via Phone (anticoag Cl inic) Encounter Details Date Type Department Care Team (Latest Contact Info) Description 12/12/2023 4:40 PM EST Anticoagulation Pharmacy Call Center [address] [place] [address] [facility] 58 60 [facility] [place] [address] Anticoagulation management encounter* Allergies Active Allergy Reactions [...] mRNA, LNP-s, No Pre serve, 2-Dose Series ([employer]) 08/19/2021,12/26/2020,12/05/2020 H1N1 2009 Influenza, IM 08/10/2009 Pneumococcal [...] this encounter Progress Notes * Julissa Jean, [facility] - 12/12/2023 10:43 AM EST Medication Therapy Disease Management - Anticoagulation Patient: Analy Haq | : 1940 F[facility]SNF Patient Anticoagulation Encounter Patient is a resident at: [facility] [place] -- CC to Yvette Boyd PA-C and Fax sent to number listed above detailing plan of care below. Please notify clinic with any unusual brusing or bleeding, N/V/D, medication or diet changes or anymissed or extra doses of Coumadin. Subjective Patient-Reported Symptoms: Objective Current Warfarin Dose As of 12/12/2023 Warfarin maintenance plan: 2 mg (1 mg x 2) every day INR Result As of 12/12/2023 INR goal: 2.0-3.0 INR used for dosin.7 (12/12/2023) Assessment & Plan Warfarin Plan As of 12/12/2023 Full warfarin instructions: 2 mg every day No change documented: Julissa Jean RPh Next INR check: 12/26/2023 Repeat PT/INR in 2 week(s) Weekly dose: not changed Additional Dosing Information: Julissa Jean RPh Clinical Pharmacist 12/12/2023, 10:43 AM documented in this encounter Plan of Treatment Upcoming Encounters Date Type Department Care Team (Late st Contact Info) Description 12/24/2023 11:20 AM EDT Office Visit Neurology [facility] [place] [address] [facility] [place] [address] Anisha Swift PA-C [address] [facility] [place] [address] Health Maintenance Due Date Last Done Comments [...] D LEVEL ONCE IN A LIFETIME-USE SMARTSET# [id number] Completed 05/31/2020, 11/25/2019, 08/06/2019, Additional history exists [...] monitoring documented in this encounter Care Teams Medical Sales Relationship Specialty Start Date End Date Dandre Baldwin DO [address] [place] [address] PCP - General Internal Medicine 03/13/22 documented as of this encounter"
--- OUTSIDE RECORDS SUMMARY | 2024-01-04 10:08 | External Medical Summary | Summary of Care ---
Author Name Unknown Organization [facility] Address [address] [place] [address] Phone [phone] Care Team Providers Care Garnett Machine Operator Name Role Phone Dandre Baldwin Primary Care Provider [phone] Encounter Details Date Type Department Care Team (Late st Contact Info) Description 12/12/2023 Orders Only Lab Mobile Phlebotomy [facility] [address], [place] [phone] Yvette Boyd PA-C [address] [place] [address] Contraindication to deep vein thrombosis (DVT) prophylaxis* Allergies Active [...] mRNA, LNP-s, No Pre serve, 2-Dose Series ([employer]) 08/19/2021,12/26/2020,12/05/2020 H1N1 2009 Influenza, IM 08/10/2009 Pneumococcal [...] Team (Late st Contact Info) Description 12/12/2023 8:00 AM EST Laboratory Lab Mobile Phlebotomy [facility] [address] [place] [address] [facility] [place] [address] [place] [address] 12/12/2023 4:40 PM EST Anticoagulation Pharmacy Call Center WB [address] [facility] [place] [address] [facility] 58 60 [facility] [place] [address] 12/24/2023 11:20 AM EDT Office Visit Neurology [place] [place] [address] [facility] [place] [place] [address] Anisha Swift PA-C [address] [facility] [place] [address] Scheduled Orders Name Type Priority Associated Diagnoses Orde r Schedule PT INR Lab Routine Contraindication to deep vein thrombosis (DVT) prophylaxis Expected: 12/12/2023, Expires: 12/11/2024 Health Maintenance Due Date Last Done Comments [...] D LEVEL ONCE IN A LIFETIME-USE SMARTSET# [id number] Completed 05/31/2020, 11/25/2019, 08/06/2019, Additional history exists [...] as of this encounter Visit Diagnoses Diagnosis Contraindication to deep vein thrombosis (DVT) prophylaxis Contraindication to deep vein thrombosis (DVT) prophylaxis- Primary documented in this encounter Care Teams Garnett Machine Operator Relationship Specialty Start Date End Date Dandre Baldwin DO [address] [place] [address] [place] [address] PCP - General Internal Medicine 03/13/22 documented as of this encounter
[2024-01-04] MEDS: cefTRIAXone SODIUM 1,000 MG/50 ML BAG IV STA (10:34)
--- NOTE | 2024-01-04 12:07 | History & Physical Report ---
Date of Service January 04, 2024 Assessment & Plan (1) UTI (urinary tract infection): Plan: Pt presents w/ LLQ abd. pain CT abd/ pelvis 1. Mild rectal wall thickening which is improved. No evidence for fecal impaction at this time. 2. Small amount of gas and fluid within the endometrium which has improved. 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 3. Bladder wall thickening again noted consistent with a cystitis. There is also urothelial thickening within the bilateral renal collecting systems and ureters consistent with a bilateral pyelitis. Recommend correlation with urinalysis. 4. Mild fullness within the left renal collecting system without dena hydronephrosis. There is a 7 mm calcification within the left deep pelvis which favors a phlebolith. However, this is in close proximity to the distal left ureter. Therefore, a distal left ureteral stone is not excluded. 5. Bilateral nephrolithiasis. UA c/w UTI WBC mildly elevated at 11k - started on Rocephin in the ED, will cont. ? L ureteral stone - will discuss w/ urology - currently LLQ pain resolved Hx of DVT - on warfarin, cont., monitor INR Hypertension - cont. lisinopril GERD on PPI Chronic anemia (Hgb baseline ~11) Current Hgb 13, cont. to monitor SIADH, as per records Current Na level 142, cont. to monitor Primary hyperparathyroidism, conservative management as per outpatient [facility] [place] [place] History of Spencer's palsy Mood disorder, stable dementia, Delirium precautions Code status: DNR/DNI - confirmed w/ pt's daughter at the bedside History of Present Illness Chief Complaint: LLQ abd. pain Primary Care Provider: Trinity Vicente at [facility] 83 yo F w/ hx of hypertension, breast cancer left status post surgery, SIADH as per records, primary hyperparathyroidism, GERD, chronic back pain, chronic anemia (baseline hemoglobin 11), history of Spencer's palsy, mood disorder, dementia. Recently admitted in November 2023 for Acute right hemispheric ischemic stroke. Currently presents with LLQ abd. pain. UA c/w UTI and she was started on Rocephin in the ED. CT abd. pelvis also obtained , w/ ? poss. L ureteral stone. LLQ pain started today, and currently resolved with Tylenol and after starting IV antibiotics and fluids in the ED. Currently she is lying in bed in no acute distress, her daughter is present at the bedside. Denies any fevers chills, chest pain shortness of breath. Denies any nausea vomiting. Denies diarrhea. Allergies Allergy/AdvReac Type Severity Reaction Status Date / Time ezetimibe [From Zetia] Allergy Unknown ON [facility] Verified 11/19/23 21:59 [facility] LIST shellfish derived Allergy Unknown ON [facility] Verified 11/19/23 21:59 [facility] MED LIST Sulfa (Sulfonamide Allergy Unknown ON [facility] Verified 11/19/23 21:59 Antibiotics) [facility] LIST sulfamethoxazole Allergy Unknown ON [facility] Verified 11/19/23 21:59 [From Bactrim] [facility] LIST tramadol Allergy Unknown ON [facility] Verified 11/19/23 21:59 [facility] LIST trimethoprim [From Bactrim] Allergy Unknown ON [facility] Verified 11/19/23 21:59 [facility] LIST [place] FLAVOR Allergy Unknown ON [facility] Uncoded 11/19/23 21:59 [facility] LIST Home Medications Medication Instructions Recorded Confirmed Type loratadine 10 mg tablet (Claritin) 10 mg PO QAM 12/25/21 01/04/24 History famotidine 20 mg tablet 20 mg PO BID #14 tabs 02/15/22 01/04/24 Rx polyethylene glycol 3350 17 gram 17 g PO BID #14 ea 02/15/22 01/04/24 Rx oral powder packet (Miralax) mirtazapine 15 mg tablet 7.5 mg PO HS 03/15/23 01/04/24 History sertraline 25 mg tablet 25 mg PO DAILY 03/15/23 01/04/24 History acetaminophen 325 mg tablet 650 mg PO Q4H PRN PAIN/FEVER>100 11/19/23 01/04/24 History (Tylenol) carboxymethylcellulose sodium 1 % 2 drp OPL TID 11/19/23 01/04/24 History eye drops (Artificial Tears (carboxymethylcellulose)) docusate sodium 100 mg capsule 100 mg PO QAM 11/19/23 01/04/24 History omeprazole 20 mg capsule,delayed 20 mg PO DAILY 11/19/23 01/04/24 History release potassium chloride 10 mEq 10 meq PO DAILY 11/19/23 01/04/24 History tablet,extended release(part/cryst) aspirin 81 mg tablet,delayed 81 mg PO QAM #30 tabs 11/27/23 01/04/24 Rx release atorvastatin 40 mg tablet 40 mg PO QAM #30 tabs 11/27/23 01/04/24 Rx lisinopril 5 mg tablet (Zestril) 5 mg PO QAM #30 tabs 11/27/23 01/04/24 Rx Saccharomyces boulardii 250 mg 250 mg PO QAM 01/04/24 01/04/24 History capsule sodium chloride 0.65 % nasal spray 2 spray intranasal TID 01/04/24 01/04/24 History aerosol (Saline Nasal) warfarin 1 mg tablet 2 mg PO DAILY@1600 01/04/24 01/04/24 History wound dressings (Triad Wound 1 applic topical DAILY 01/04/24 01/04/24 History Dressing paste) Past Med/Surg History Medical History Palliative care by specialist Weakness generalized S/p left hip fracture SIADH (syndrome of inappropriate ADH production) Fall DVT prophylaxis History of breast cancer Hyperparathyroidism Lumbar spinal stenosis Pre-diabetes Dementia Spencer's palsy Osteoporosis HTN (hypertension) Closed right hip fracture Surgical History Status post hip hemiarthroplasty Right History of partial mastectomy hx of dcis Family History Mother Alzheimer disease Father Heart disease Social History Smoking Status: Never smoker Second Hand Exposure: No; Do You Dip or Chew Tobacco: No; Tobacco Cessation Education Requested by Patient: No Hx Alcohol Use: No Hx Substance Use: No Preferred Language: Yi Communication Ability: Effective Public Speaking Coach Required: No Beliefs That Will Affect Care: None marital status: Current Living Situation: [facility]dc Current Living Situation Comment: [facility] How many Children do You have: 2 Other Information That Helps Us Care for You: No Feels Safe at Home: Yes Assistive Devices: Glasses Review of Systems Review of Systems: All systems reviewed & are unremarkable except as noted in Subjective Physical Exam Constitutional: WD/WN, vitals as above Eyes: PERRL, conjunctivae normal, anicteric sclerae ENMT: external ear and nose normal, oropharynx normal Neck: trachea midline, no thyromegaly Respiratory: normal respiratory effort, lungs clear to auscultation Cardiovascular: RRR, no murmur, no edema Chest (Breasts): Chest: normal inspection of chest Gastrointestinal (Abdomen): normal bowel sounds, soft, nontender, no hepatosplenomegaly Musculoskeletal: Head/Neck/Chest: normocephalic (moves extremities) Skin: no rashes, warm and dry Neurologic: PERRL, EOMI, accommodation nl, no face palsy, no dysarthria Results & Data Results & Data Vital Signs (Past 12 Hours) Vital Signs Temp Pulse Pulse Resp BP BP Pulse Ox 01/04/24 12:05 72 20 135/74 99 01/04/24 12:02 68 01/04/24 10:39 73 20 128/70 97 01/04/24 08:06 86 01/04/24 07:54 88 18 96 01/04/24 07:35 36.8 C 87 18 149/84 H 95 O2 Del Method 01/04/24 12:05 Room Air 01/04/24 12:02 01/04/24 10:39 Room Air 01/04/24 08:06 01/04/24 07:54 Room Air 01/04/24 07:35 Room Air Laboratory Results 01/04/24 01/04/24 Range/Units 09:17 07:35 WBC 11.78 H (4.8-10.8) K/ul RBC 4.85 (4.20-5.40) M/uL Hgb 13.1 (12.0-16.0) g/dl Hct 40.8 (37.0-47.0) % MCV 84.1 (80.0-100.0) fL MCH 27.0 (25.0-34.0) pg MCHC 32.1 (32.0-36.0) g/dL RDW Std Deviation 42.6 (36.4-46.3) fL RDW Coeff of Tyesha 13.9 (11.5-14.5) % Plt Count 286 (130-400) K/uL MPV 9.5 (9.4-12.4) fL Immature Gran % (Auto) 0.3 % Neut % (Auto) 76.8 % Lymph % (Auto) 13.2 % [place] % (Auto) 9.2 % Eos % (Auto) 0.2 % Baso % (Auto) 0.3 % Neut # (Auto) 9.05 H (1.40-6.50) K/uL Lymph # (Auto) 1.56 (1.20-3.40) K/uL [place] # (Auto) 1.08 H (0.11-0.59) K/uL Eos # (Auto) 0.02 (0.00-0.50) K/uL Baso # (Auto) 0.03 (0.00-0.20) K/uL Immature Gran # (Auto) 0.04 (0.01-0.20) K/uL PT 14.0 H (9.0-12.0) Seconds INR 1.3 H (0.9-1.1) APTT 30 (21-31) Seconds PTT Ratio 1.1 Sodium 142 (136-145) mmol/L Potassium 4.5 (3.5-5.1) mmol/L Chloride 106 (98-107) mmol/L Carbon Dioxide 29 (21-32) mmol/L Anion Gap 7 (3-11) BUN 25 H (6-23) mg/dl Creatinine 0.86 (0.6-1.2) mg/dl Est Cr Clr Drug Dosing Not Reportable Est GFR ( Amer) 71.4 ml/min Est GFR (Non-Af Amer) 61.6 ml/min BUN/Creatinine Ratio 29.1 H (10-20) Glucose 122 H (70-99(Fasting)) mg/dl Calcium 11.0 H (8.6-10.3) mg/dl Total Bilirubin 0.5 (0.2-1.0) mg/dl AST 10 L (13-39) U/L ALT 5 L (7-52) U/L Alkaline Phosphatase 101 (34-104) U/L Troponin I High Sens 9.4 (0-14) pg/ml Total Protein 7.9 (6.0-8.3) gm/dl Albumin 4.0 (3.4-5.0) gm/dl Globulin 3.9 (2.5-4.0) gm/dl Albumin/Globulin Ratio 1.0 (0.9-2) Lipase 7 L (11-82) U/L Urine Color Red Urine Appearance Turbid A (Clear) Urine pH 8.0 H (4.5-7.5) Ur Specific [place] > 1.045 H (1.000-1.030) Urine Protein 2+ H (Negative) Urine Glucose (UA) Negative (Negative) Urine Ketones Negative (Negative) Urine Blood 3+ H (Negative) Urine Nitrite Positive A (Negative) Urine Bilirubin Negative (Negative) Urine Urobilinogen Negative (Negative) Ur Leukocyte Esterase 3+ H (Negative) Urine WBC (Auto) >30 H (0-5) /hpf Urine RBC (Auto) >30 H (0-4) /hpf U Hyaline Cast (Auto) 1-5 (0-5) /lpf U Epithel Cells (Auto) 5-10 H (0-5) /lpf Urine Bacteria (Auto) 1+ H (Negative) Urine Yeast Not Reportable Diagnostic Findings CT abd/ pelvis IMPRESSION: 1. Mild rectal wall thickening which is improved. No evidence for fecal impaction at this time. 2. Small amount of gas and fluid within the endometrium which has improved. 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 3. Bladder wall thickening again noted consistent with a cystitis. There is also urothelial thickening within the bilateral renal collecting systems and ureters consistent with a bilateral pyelitis. Recommend correlation with urinalysis. 4. Mild fullness within the left renal collecting system without dena hydronephrosis. There is a 7 mm calcification within the left deep pelvis which favors a phlebolith. However, this is in close proximity to the distal left ureter. Therefore, a distal left ureteral stone is not excluded. 5. Bilateral nephrolithiasis.
[2024-01-04] MEDS: HEPARIN SOD 5,000 UNIT/0.5 ML VIAL SQ SCH (15:27)
[2024-01-04] MEDS: SODIUM CHLORIDE 0.9% 500 ML IV SCH (17:58)
[2024-01-04] MEDS: WARFARIN SOD 3 MG TAB PO ONE (18:00)
[2024-01-04] MEDS: FAMOTIDINE 20 MG TAB PO SCH (20:21)
--- NOTE | 2024-01-04 21:17 | Urology Consultation ---
Date of Consultation January 04, 2024 Assessment & Plan (1) Acute UTI: The patient has been admitted on the hospital service. From a urologic perspective we recommend the following: Provide analgesics Provide antiemetics Provide IV fluid for hydration Due to concern for underlying urinary tract infection patient has been placed on empiric Rocephin which should continue and can be tailored based on pending culture results At the present time it is uncertain if the patient has a kidney stone if the finding on CT scan is merely a phlebolith At the present time the patient does not appear to be in any discomfort. She only has a slight leukocytosis and is normotensive without tachycardia or fever. She also does not have acute kidney injury and therefore conservative treatment should be employed Patient will be reevaluated by our urology attending the morning of 01/05/2024 and further recommendations be made based on her clinical course as unfolds History of Present Illness Reason for Consultation: Possible nephrolithiasis Attending Physician: Chai Gaffney MD History of Present Illness This is an 83-year-old female with an underlying history of dementia. She cannot provide much in the way of meaningful history. The patient reportedly was admitted to the hospital secondary to left lower quadrant abdominal pain that began earlier today. Patient could not definitively tell me if she is having any fevers, shakes, or chills. She denies any dysuria or hematuria. Since arrival to the hospital the patient has had labs and imaging which I independently reviewed. A CT scan of the abdomen pelvis showed the patient had bladder wall thickening concerning for cystitis. There is also some urothelial thickening within the bilateral renal collecting systems concerning for pyelitis. There was some pulp fullness in the left renal collecting system without hydronephrosis. There is concern the patient had a 7 mm calcification in the left side of the pelvis which interpreting radiologist felt was a phlebolith however he could not definitely exclude a ureteral stone. Labs included CBC her white blood cell count was elevated 11.7. Hemoglobin and hematocrit along with the platelet count were normal. Chemistry profile showed sodium and potassium as well as the creatinine were normal. BUN had a slight elevation at 25. Urinalysis was positive for nitrites as well as 3+ leukocyte Estrace and had pyuria with greater than 30 white blood cells per high-power field and 1+ bacteria. At the time of my interview the patient was resting comfortably in bed and was in no distress. Allergies Allergy/AdvReac Type Severity Reaction Status Date / Time ezetimibe [From Zetia] Allergy Unknown ON [facility] Verified 11/19/23 21:59 [facility] LIST shellfish derived Allergy Unknown ON [facility] Verified 11/19/23 21:59 [facility] LIST Sulfa (Sulfonamide Allergy Unknown ON [facility] Verified 11/19/23 21:59 Antibiotics) [facility] LIST sulfamethoxazole Allergy Unknown ON [facility] Verified 11/19/23 21:59 [From Bactrim] [facility] LIST tramadol Allergy Unknown ON [facility] Verified 11/19/23 21:59 [facility] LIST trimethoprim [From Bactrim] Allergy Unknown ON [facility] Verified 11/19/23 21:59 [facility] LIST [facility] Allergy Unknown ON [facility] Uncoded 11/19/23 21:59 [facility] LIST Home Medications Medication Instructions Recorded Confirmed Type loratadine 10 mg tablet (Claritin) 10 mg PO QAM 12/25/21 01/04/24 History famotidine 20 mg tablet 20 mg PO BID #14 tabs 02/15/22 01/04/24 Rx polyethylene glycol 3350 17 gram 17 g PO BID #14 ea 02/15/22 01/04/24 Rx oral powder packet (Miralax) mirtazapine 15 mg tablet 7.5 mg PO HS 03/15/23 01/04/24 History sertraline 25 mg tablet 25 mg PO DAILY 03/15/23 01/04/24 History acetaminophen 325 mg tablet 650 mg PO Q4H PRN PAIN/FEVER>100 11/19/23 01/04/24 History (Tylenol) carboxymethylcellulose sodium 1 % 2 drp OPL TID 11/19/23 01/04/24 History eye drops (Artificial Tears (carboxymethylcellulose)) docusate sodium 100 mg capsule 100 mg PO QAM 11/19/23 01/04/24 History omeprazole 20 mg capsule,delayed 20 mg PO DAILY 11/19/23 01/04/24 History release potassium chloride 10 mEq 10 meq PO DAILY 11/19/23 01/04/24 History tablet,extended release(part/cryst) aspirin 81 mg tablet,delayed 81 mg PO QAM #30 tabs 11/27/23 01/04/24 Rx release atorvastatin 40 mg tablet 40 mg PO QAM #30 tabs 02/21/24 03/30/24 Rx lisinopril 5 mg tablet (Zestril) 5 mg PO QAM #30 tabs 11/27/23 01/04/24 Rx Saccharomyces boulardii 250 mg 250 mg PO QAM 01/04/24 01/04/24 History capsule sodium chloride 0.65 % nasal spray 2 spray intranasal TID 01/04/24 01/04/24 History aerosol (Saline Nasal) warfarin 1 mg tablet 2 mg PO DAILY@1600 01/04/24 01/04/24 History wound dressings (Triad Wound 1 applic topical DAILY 01/04/24 01/04/24 History Dressing paste) Patient History Medical History Palliative care by specialist Weakness generalized S/p left hip fracture SIADH (syndrome of inappropriate ADH production) Fall DVT prophylaxis History of breast cancer Hyperparathyroidism Lumbar spinal stenosis Pre-diabetes Dementia Spencer's palsy Osteoporosis HTN (hypertension) Closed right hip fracture Surgical History Status post hip hemiarthroplasty Right History of partial mastectomy hx of dcis Family History Mother Alzheimer disease Father Heart disease Social History Smoking Status: Never smoker Second Hand Exposure: No; Do You Dip or Chew Tobacco: No; Tobacco Cessation Education Requested by Patient: No Hx Alcohol Use: No Hx Substance Use: No Preferred Language: Angolan Communication Ability: Effective Consultant Education Required: No Beliefs That Will Affect Care: None marital status: Current Living Situation: Long Term Current Living Situation Comment: [facility] How many Children do You have: 2 Other Information That Helps Us Care for You: No Feels Safe at Home: Yes Assistive Devices: Glasses Review of Systems Review of Systems: Unobtainable due to cognitive status Physical Exam Constitutional: WD/WN, vitals as above Eyes: no conjunctival abnormality ENMT: Ears: no hearing impairment Neck: trachea midline Respiratory: normal respiratory effort, lungs clear to auscultation Cardiovascular: Rate/Rhythm: regular rate and regular rhythm Gastrointestinal (Abdomen): Abdomen is soft and nondistended. There is no pain with palpation Musculoskeletal: No calf tenderness Skin: no rashes Neurologic: moves all extremities Psychiatric: Orientation: alert and oriented to person Genitourinary: Patient has bilateral back pain, uncertain if this is CVA tenderness or merely musculoskeletal Results & Data Vital Signs (Past 12 Hours) Vital Signs Temp Pulse Pulse Pulse Resp BP Pulse Ox 01/04/24 19:22 36.7 C 86 18 162/87 H 96 01/04/24 17:50 78 01/04/24 15:18 36.8 C 77 16 145/84 H 95 01/04/24 15:16 01/04/24 12:05 72 20 135/74 99 01/04/24 12:02 68 01/04/24 10:39 73 20 128/70 97 O2 Del Method 01/04/24 19:22 Room Air 01/04/24 17:50 01/04/24 15:18 Room Air 01/04/24 15:16 Room Air 01/04/24 12:05 Room Air 01/04/24 12:02 01/04/24 10:39 Room Air PG Care Time/CCT Total # of Minutes Spent Total Time Spent with Patient: Total time spent is greater than 50% in coordination of care (as documented) at patient's floor/unit and/or counseling patient: Coding Level of Care Code 67690 INT INP/OBS CARE 3/75MIN Diagnoses Acute UTI N39.0
--- NOTE | 2024-01-05 07:39 | Hospitalist Progress Note ---
Date of Service January 05, 2024 Assessment & Plan (1) UTI (urinary tract infection): Plan: Pt presents w/ LLQ abd. pain CT abd/ pelvis 1. Mild rectal wall thickening which is improved. No evidence for fecal impaction at this time. 2. Small amount of gas and fluid within the endometrium which has improved. 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 3. Bladder wall thickening again noted consistent with a cystitis. There is also urothelial thickening within the bilateral renal collecting systems and ureters consistent with a bilateral pyelitis. Recommend correlation with urinalysis. 4. Mild fullness within the left renal collecting system without dena hydronephrosis. There is a 7 mm calcification within the left deep pelvis which favors a phlebolith. However, this is in close proximity to the distal left ureter. Therefore, a distal left ureteral stone is not excluded. 5. Bilateral nephrolithiasis. UA c/w UTI ucultx - multiple bacteria, will repeat sample WBC mildly elevated at 11k on admission - started on Rocephin in the ED, will cont. ? L ureteral stone - will discuss w/ urology - currently LLQ pain resolved Hx of DVT - on warfarin, cont., monitor INR Hypertension - cont. lisinopril GERD on PPI Chronic anemia (Hgb baseline ~11) Hgb 13 on admission, now after receiving IVF overnight Hgb 11.4 - cont. to monitor SIADH, as per records Na level 142 on admission, now 138 - cont. to monitor Primary hyperparathyroidism, conservative management as per outpatient [facility] [place] History of Spencer's palsy Mood disorder, stable dementia, Delirium precautions Code status: DNR/DNI - confirmed w/ pt's daughter at the bedside Admission and Anticipated Discharge Date Admission Date: January 04, 2024 Subjective Pt seen in follow up of UTI, LLQ abd. pain, ? renal stone Currently laying in bed in NAD, denies any more LLQ pain Says she had a good night and got some sleep Denies any fever, chills, chest pain, shortness of breath, or any discomfort Review of Systems Review of Systems: All systems reviewed & are unremarkable except as noted in Subjective Physical Exam Physical Exam: Constitutional: WD/WN, vitals as a hernandez Eyes: PERRL, conjunctiva e normal, anicteri c sclerae ENMT: external ear and n ose normal, oropha rynx normal Neck: supple Respiratory: normal respiratory effort, lungs margarita ar to auscultation Cardiovascular: RRR, no murmur, no edema Chest (Breasts): Chest: normal insp ection of chest Gastrointestinal ( Abdomen): normal bowel sound s, soft, nontender Musculoskeletal: Head/Neck/Chest: n ormocephalic (move s extremities) Skin: no rashes, warm an d dry Neurologic: awake, alert, answ ers some simple qu estions appropriat gokul, + bells' pals y Results & Data Results & Data Vital Signs (Past 12 Hours) Vital Signs Temp Pulse Pulse Resp BP Pulse Ox O2 Del Method 01/05/24 03:11 37.1 C 96 H 18 161/83 H 96 Room Air 01/05/24 00:05 92 H 01/04/24 23:17 36.9 C 92 H 18 180/84 H 93 Room Air Laboratory Results 01/04/24 01/04/24 Range/Units 09:17 07:35 WBC 11.78 H (4.8-10.8) K/ul RBC 4.85 (4.20-5.40) M/uL Hgb 13.1 (12.0-16.0) g/dl Hct 40.8 (37.0-47.0) % MCV 84.1 (80.0-100.0) fL MCH 27.0 (25.0-34.0) pg MCHC 32.1 (32.0-36.0) g/dL RDW Std Deviation 42.6 (36.4-46.3) fL RDW Coeff of Tyesha 13.9 (11.5-14.5) % Plt Count 286 (130-400) K/uL MPV 9.5 (9.4-12.4) fL Immature Gran % (Auto) 0.3 % Neut % (Auto) 76.8 % Lymph % (Auto) 13.2 % [place] % (Auto) 9.2 % Eos % (Auto) 0.2 % Baso % (Auto) 0.3 % Neut # (Auto) 9.05 H (1.40-6.50) K/uL Lymph # (Auto) 1.56 (1.20-3.40) K/uL [place] # (Auto) 1.08 H (0.11-0.59) K/uL Eos # (Auto) 0.02 (0.00-0.50) K/uL Baso # (Auto) 0.03 (0.00-0.20) K/uL Immature Gran # (Auto) 0.04 (0.01-0.20) K/uL PT 14.0 H (9.0-12.0) Seconds INR 1.3 H (0.9-1.1) APTT 30 (21-31) Seconds PTT Ratio 1.1 Sodium 142 (136-145) mmol/L Potassium 4.5 (3.5-5.1) mmol/L Chloride 106 (98-107) mmol/L Carbon Dioxide 29 (21-32) mmol/L Anion Gap 7 (3-11) BUN 25 H (6-23) mg/dl Creatinine 0.86 (0.6-1.2) mg/dl Est Cr Clr Drug Dosing Not Reportable Est GFR ( Amer) 71.4 ml/min Est GFR (Non-Af Amer) 61.6 ml/min BUN/Creatinine Ratio 29.1 H (10-20) Glucose 122 H (70-99(Fasting)) mg/dl Calcium 11.0 H (8.6-10.3) mg/dl Total Bilirubin 0.5 (0.2-1.0) mg/dl AST 10 L (13-39) U/L ALT 5 L (7-52) U/L Alkaline Phosphatase 101 (34-104) U/L Troponin I High Sens 9.4 (0-14) pg/ml Total Protein 7.9 (6.0-8.3) gm/dl Albumin 4.0 (3.4-5.0) gm/dl Globulin 3.9 (2.5-4.0) gm/dl Albumin/Globulin Ratio 1.0 (0.9-2) Lipase 7 L (11-82) U/L Urine Color Red Urine Appearance Turbid A (Clear) Urine pH 8.0 H (4.5-7.5) Ur Specific [place] > 1.045 H (1.000-1.030) Urine Protein 2+ H (Negative) Urine Glucose (UA) Negative (Negative) Urine Ketones Negative (Negative) Urine Blood 3+ H (Negative) Urine Nitrite Positive A (Negative) Urine Bilirubin Negative (Negative) Urine Urobilinogen Negative (Negative) Ur Leukocyte Esterase 3+ H (Negative) Urine WBC (Auto) >30 H (0-5) /hpf Urine RBC (Auto) >30 H (0-4) /hpf U Hyaline Cast (Auto) 1-5 (0-5) /lpf U Epithel Cells (Auto) 5-10 H (0-5) /lpf Urine Bacteria (Auto) 1+ H (Negative) Urine Yeast Not Reportable Medications Administered Current Inpatient Medications Aspirin (Aspirin 81 Mg Ectab) 81 mg PO QAM [facility] Stop: 02/04/24 08:59 Atorvastatin Calcium (Atorvastatin 40 Mg Tab) 40 mg PO QAM [facility] Stop: 02/04/24 08:59 Famotidine (Famotidine 20 Mg Tab) 20 mg PO BID [facility] Stop: 02/03/24 20:59 Last Admin: 01/04/24 20:21 Dose: 20 mg Heparin Sodium (Porcine) (Heparin Sod 5,000 Unit/0.5 Ml Vial) 5,000 units SQ Q12 [facility] Stop: 02/03/24 12:44 Last Admin: 01/04/24 20:38 Dose: 5,000 units Sodium Chloride (Nss) 500 mls @ 80 mls/hr IV .Q6H15M [facility] Stop: 02/03/24 17:44 Last Admin: 01/05/24 06:15 Dose: 80 mls/hr Ceftriaxone Sodium 1,000 mg/ (Dextrose) 50 mls @ 100 mls/hr IV Q24H [facility]; Protocol Stop: 01/15/24 08:59 [facility]inopril ([facility] 5 Mg Tab) [facility] [place] [facility] [place]: 02/04/24 08:59 Pantoprazole Sodium (Pantoprazole 40 Mg Tab) 40 mg PO DAILY [facility] Stop: 02/04/24 08:59 Saccharomyces Boulardii (Saccharomyces Boulardii 250 Mg Cap) 250 [facility] [place] [facility] [place]: 02/04/24 08:59 Sertraline HCl (Sertraline Hcl 50 Mg Tablet) 25 mg PO DAILY [facility] Stop: 02/04/24 08:59 Warfarin Sodium (Warfarin Sod 2 Mg Tab) 2 mg PO DAILY@1600 [facility] Stop: 02/04/24 15:59
[2024-01-05 08:02] LABS: Hematocrit (blood only) 35.4 % (37.0-47.0); Hemoglobin 11.4 g/dl (12.0-16.0); Mean Corpuscular Hemoglobin 27.2 pg (25.0-34.0); Mean Corpuscular Hgb Conc 32.2 g/dL (32.0-36.0); Mean Corpuscular Volume 84.5 fL (80.0-100.0); Mean Platelet Volume 10.3 fL (9.4-12.4); Platelet Count 237 K/uL (130-400); RDW Coefficient of Variation 13.9 % (11.5-14.5); RDW Standard Deviation 42.9 fL (36.4-46.3); Red Blood Count 4.19 M/uL (4.20-5.40); White Blood Count 10.79 K/ul (4.8-10.8)
[2024-01-05 08:52] LABS: BUN Creatinine Ratio 32.2 (10-20); Creatinine Clr Calc Pharmacy 50.1 ml/min; Est GFR (African American) 96.9 ml/min; Est GFR (Non-African American) 83.6 ml/min; Magnesium 1.8 mg/dl (1.7-2.4); Phosphorus 2.4 mg/dl (2.5-4.9); Potassium 3.6 mmol/L (3.5-5.1)
[2024-01-05] MEDS: cefTRIAXone SODIUM 1,000 MG in DEXTROSE 5 % MINI-B 50 ML IV SCH (09:03)
[2024-01-05] MEDS: ATORVASTATIN 40 MG TAB PO SCH (09:04)
[2024-01-05] MEDS: ASPIRIN 81 MG ECTAB PO SCH (09:04)
[2024-01-05] MEDS: PANTOprazole 40 MG TAB PO SCH (09:04)
[2024-01-05] MEDS: lisinopril 5 MG TAB PO SCH (09:04)
[2024-01-05] MEDS: SERTRALINE HCL 50 MG TABLET PO SCH (09:04)
[2024-01-05] MEDS: SACCHAROMYCES BOULARDII 250 MG CAP PO SCH (09:04)
[2024-01-05 09:49] LABS: INR 1.8 (0.9-1.1); Prothrombin Time 18.7 Seconds (9.0-12.0)
[2024-01-05] MEDS ORDERED: cefTRIAXone SODIUM 1,000 MG in DEXTROSE 5 % MINI-B 50 ML IV SCH (14:00)
[2024-01-05 15:27] LABS: Appearance Urine Cloudy (Clear); Bilirubin Urine Negative (Negative); Blood Urine 3+ (Negative); Color Urine Yellow; Epithelial Cell Urine Auto 0-5 /lpf (0-5); Glucose Urine UA Negative (Negative); Ketones Urine 2+ (Negative); Leukocyte Esterase Urine 2+ (Negative); Nitrite Urine Negative (Negative); Protein Urine 2+ (Negative); Urobilinogen Urine Negative (Negative); WBC Urine Automated >30 /hpf (0-5); pH Urine 6.5 (4.5-7.5)
[2024-01-05 15:37] LABS: Bacteria Urine Automated 1+ (Negative)
[2024-01-05] MEDS ORDERED: WARFARIN SOD 2 MG TAB PO SCH (16:00)
[2024-01-05] MEDS: WARFARIN SOD 3 MG TAB PO SCH (16:58)
[2024-01-06 09:59] LABS: Hematocrit (blood only) 35.3 % (37.0-47.0); Hemoglobin 11.5 g/dl (12.0-16.0); Mean Corpuscular Hemoglobin 26.9 pg (25.0-34.0); Mean Corpuscular Hgb Conc 32.6 g/dL (32.0-36.0); Mean Corpuscular Volume 82.7 fL (80.0-100.0); Mean Platelet Volume 9.8 fL (9.4-12.4); Platelet Count 256 K/uL (130-400); RDW Coefficient of Variation 13.8 % (11.5-14.5); RDW Standard Deviation 41.4 fL (36.4-46.3); Red Blood Count 4.27 M/uL (4.20-5.40); White Blood Count 10.91 K/ul (4.8-10.8)
[2024-01-06 10:04] LABS: INR 1.7 (0.9-1.1); Prothrombin Time 18.1 Seconds (9.0-12.0)
[2024-01-06 10:28] LABS: BUN Creatinine Ratio 26.5 (10-20); Calcium 9.8 mg/dl (8.6-10.3); Creatinine Clr Calc Pharmacy 47.9 ml/min; Est GFR (African American) 92.4 ml/min; Est GFR (Non-African American) 79.8 ml/min; Magnesium 1.7 mg/dl (1.7-2.4); Phosphorus 2.4 mg/dl (2.5-4.9); Potassium 3.4 mmol/L (3.5-5.1)
--- NOTE | 2024-01-06 11:27 | Hospitalist Progress Note ---
Date of Service January 06, 2024 Assessment & Plan (1) UTI (urinary tract infection): Plan: Pt presents w/ LLQ abd. pain CT abd/ pelvis 1. Mild rectal wall thickening which is improved. No evidence for fecal impaction at this time. 2. Small amount of gas and fluid within the endometrium which has improved. 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 3. Bladder wall thickening again noted consistent with a cystitis. There is also urothelial thickening within the bilateral renal collecting systems and ureters consistent with a bilateral pyelitis. Recommend correlation with urinalysis. 4. Mild fullness within the left renal collecting system without dena hydronephrosis. There is a 7 mm calcification within the left deep pelvis which favors a phlebolith. However, this is in close proximity to the distal left ureter. Therefore, a distal left ureteral stone is not excluded. 5. Bilateral nephrolithiasis. UA c/w UTI ucultx - multiple bacteria, will repeat sample. repeat cultx pending WBC mildly elevated at 11k on admission - started on Rocephin in the ED, will cont. ? L ureteral stone - urology consulted - currently LLQ pain resolved Hx of DVT - on warfarin, cont., monitor INR Hypertension - cont. lisinopril GERD on PPI Chronic anemia (Hgb baseline ~11) Hgb 13 on admission, now after receiving IVF overnight Hgb 11.4 - cont. to monitor SIADH, as per records Na level 142 on admission, now 136 - cont. to monitor Primary hyperparathyroidism, conservative management as per outpatient [facility] [place] History of Spencer's palsy Mood disorder, stable dementia, Delirium precautions Code status: DNR/DNI - confirmed w/ pt's daughter at the bedside Admission and Anticipated Discharge Date Admission Date: January 04, 2024 Subjective Pt seen in follow up of UTI, LLQ abd. pain, ? renal stone Currently sitting up in bed in NAD, denies any more LLQ pain Denies any fever, chills, chest pain, shortness of breath, or any discomfort repeat Ucultx pending Review of Systems Review of Systems: All systems reviewed & are unremarkable except as noted in Subjective Physical Exam Physical Exam: Constitutional: WD/WN, vitals as a hernandez Eyes: PERRL, conjunctiva e normal, anicteri c sclerae ENMT: external ear and n ose normal, oropha rynx normal Neck: supple Respiratory: normal respiratory effort, lungs margarita ar to auscultation Cardiovascular: RRR, no murmur, no edema Chest (Breasts): Chest: normal insp ection of chest Gastrointestinal ( Abdomen): normal bowel sound s, soft, nontender Musculoskeletal: Head/Neck/Chest: n ormocephalic (move s extremities) Skin: no rashes, warm an d dry Neurologic: awake, alert, answ ers some simple qu estions appropriat gokul, + bells' pals y Results & Data Results & Data Vital Signs (Past 12 Hours) Vital Signs Temp Pulse Pulse Resp BP BP Pulse Ox 01/06/24 10:02 86 01/06/24 09:56 01/06/24 08:01 36.9 C 89 17 160/76 H 93 01/06/24 03:12 36.7 C 84 18 168/90 H 94 O2 Del Method 01/06/24 10:02 01/06/24 09:56 Room Air 01/06/24 08:01 Room Air 01/06/24 03:12 Room Air Laboratory Results 01/06/24 01/05/24 Range/Units 09:37 15:17 WBC 10.91 H (4.8-10.8) K/ul RBC 4.27 (4.20-5.40) M/uL Hgb 11.5 L (12.0-16.0) g/dl Hct 35.3 L (37.0-47.0) % MCV 82.7 (80.0-100.0) fL MCH 26.9 (25.0-34.0) pg MCHC 32.6 (32.0-36.0) g/dL RDW Std Deviation 41.4 (36.4-46.3) fL RDW Coeff of Tyesha 13.8 (11.5-14.5) % Plt Count 256 (130-400) K/uL MPV 9.8 (9.4-12.4) fL PT 18.1 H (9.0-12.0) Seconds INR 1.7 H (0.9-1.1) Sodium 136 (136-145) mmol/L Potassium 3.4 L (3.5-5.1) mmol/L Chloride 104 (98-107) mmol/L Carbon Dioxide 24 (21-32) mmol/L Anion Gap 8 (3-11) BUN 18 (6-23) mg/dl Creatinine 0.68 (0.6-1.2) mg/dl Est Cr Clr Drug Dosing 47.9 ml/min Est GFR ( Amer) 92.4 ml/min Est GFR (Non-Af Amer) 79.8 ml/min BUN/Creatinine Ratio 26.5 H (10-20) Glucose 132 H (70-99(Fasting)) mg/dl Calcium 9.8 (8.6-10.3) mg/dl Phosphorus 2.4 L (2.5-4.9) mg/dl Magnesium 1.7 (1.7-2.4) mg/dl Urine Color Yellow Urine Appearance Cloudy A (Clear) Urine pH 6.5 (4.5-7.5) Ur Specific [place] 1.020 (1.000-1.030) Urine Protein 2+ H (Negative) Urine Glucose (UA) Negative (Negative) Urine Ketones 2+ H (Negative) Urine Blood 3+ H (Negative) Urine Nitrite Negative (Negative) Urine Bilirubin Negative (Negative) Urine Urobilinogen Negative (Negative) Ur Leukocyte Esterase 2+ H (Negative) Urine WBC (Auto) >30 H (0-5) /hpf Urine RBC (Auto) 10-30 H (0-4) /hpf U Hyaline Cast (Auto) 1-5 (0-5) /lpf U Epithel Cells (Auto) 0-5 (0-5) /lpf Urine Bacteria (Auto) 1+ H (Negative) Urine Yeast Not Reportable Medications Administered Current Inpatient Medications Aspirin (Aspirin 81 Mg Ectab) 81 mg PO QAM [facility] Stop: 02/04/24 08:59 Last Admin: 01/06/24 08:27 Dose: 81 mg Atorvastatin Calcium (Atorvastatin 40 Mg Tab) 40 mg PO QAM [facility] Stop: 02/04/24 08:59 Last Admin: 01/06/24 08:31 Dose: 40 mg Famotidine (Famotidine 20 Mg Tab) 20 mg PO BID [facility] Stop: 02/03/24 20:59 Last Admin: 01/06/24 08:26 Dose: 20 mg Heparin Sodium (Porcine) (Heparin Sod 5,000 Unit/0.5 Ml Vial) 5,000 units SQ Q12 [facility] Stop: 02/03/24 12:44 Last Admin: 01/06/24 08:36 Dose: 5,000 units Ceftriaxone Sodium 1,000 mg/ (Dextrose) 50 mls @ 100 mls/hr IV Q24H [facility]; Protocol Stop: 01/15/24 08:59 Last Infusion: 01/06/24 09:38 Dose: Infused Lisinopril (Lisinopril 5 Mg Tab) 5 mg PO QAM [facility] Stop: 02/04/24 08:59 Last Admin: 01/06/24 08:30 Dose: 5 mg Pantoprazole Sodium (Pantoprazole 40 Mg Tab) 40 mg PO DAILY [facility] Stop: 02/04/24 08:59 Last Admin: 01/06/24 08:31 Dose: 40 mg Saccharomyces Boulardii (Saccharomyces Boulardii 250 Mg Cap) 250 mg PO QAM [facility] Stop: 02/04/24 08:59 Last Admin: 01/06/24 08:27 Dose: 250 mg Sertraline HCl (Sertraline Hcl 50 Mg Tablet) 25 mg PO DAILY [facility] Stop: 02/04/24 08:59 Last Admin: 01/06/24 08:28 Dose: 25 mg Warfarin Sodium (Warfarin Sod 2 Mg Tab) 2 mg PO DAILY@1600 [facility] Stop: 02/05/24 15:59
[2024-01-06] MEDS: POTASSIUM CHLORIDE CRTAB 20 MEQ TABCR PO STA (12:11)
--- NOTE | 2024-01-06 13:21 | Urology Progress Note ---
Date of Service January 06, 2024 Assessment & Plan (1) Acute UTI: (2) Abdominal pain, acute, left lower quadrant: (3) Nephrolithiasis: Plan 83yo F admitted with LLQ abd pain and suspected UTI. CT abd pelvis on admission noted bladder wall thickening consistent with cystitis, urothelial thickening within the bilateral renal collecting system consistent with bilateral pyelitis, mild fullness within the left renal collecting system without dena hydronephrosis, and a 7 mm calcification within the deep left pelvis favoring a phlebolith however is in close proximity of the distal left ureter and therefore a distal left ureteral stone is not excluded, and bilateral nephrolithiasis. - No reported pain today. - Remains afebrile and hemodynamically stable. - Labs today - WBC 10.91, Creatinine 0.68. - Urine culture 01/03 with more than 3 types of organisms, all high counts, r epeat pending. - Blood culture 01/03 prelim no growth x 48 hours. - On Ceftriaxone. - Voiding spontaneously, external cath in place. Urine is clear yellow. Continue to monitor. - No plan for urological intervention. - Continue supportive care and management per primary team. - Continue antibiotics. - Will arrange outpatient follow-up with our service. - will follow peripherally. Please call with any further questions, concerns, or changes in patient status. Plan of care reviewed with Dr. Henriquez, on-call urologist. Admission and Anticipated Discharge Date Admission Date: January 04, 2024 Subjective Pt examined at bedside this AM. Awake, resting in bed on arrival. No acute distress. No reported pain at present. Denies f/c/n/v. External purewick cath in place - Urine is clear yellow. Review of Systems Constitutional: as per Subjective / HPI Genitourinary: as per Subjective / HPI Physical Exam Constitutional: no acute distress Respiratory: no respiratory distress and no labored breathing Gastrointestinal (Abdomen): Percussion/Palpation: abdomen soft; abdomen nontender Neurologic: awake Psychiatric: Orientation: alert, oriented to person and cooperative Genitourinary: Urine is clear yellow Results & Data Vital Signs (Past 12 Hours) Vital Signs Temp Pulse Pulse Resp BP BP Pulse Ox 01/06/24 11:54 36.8 C 87 18 110/70 95 01/06/24 10:02 86 01/06/24 09:56 01/06/24 08:01 36.9 C 89 17 160/76 H 93 01/06/24 03:12 36.7 C 84 18 168/90 H 94 O2 Del Method 01/06/24 11:54 Room Air 01/06/24 10:02 01/06/24 09:56 Room Air 01/06/24 08:01 Room Air 01/06/24 03:12 Room Air PG Care Time/CCT Total # of Minutes Spent Total Time Spent with Patient: Total time spent is greater than 50% in coordination of care (as documented) at patient's floor/unit and/or counseling patient: Coding Level of Care Code 58673 SUB INP/OBS CARE 2/35MIN Diagnoses Acute UTI N39.0 Abdominal pain, acute, left lower quadrant R10.32 Nephrolithiasis N20.0
[2024-01-06] MEDS ORDERED: WARFARIN SOD 1 MG TAB PO SCH (16:00)
[2024-01-06] MEDS: WARFARIN SOD 2 MG TAB PO SCH (17:40)
--- NOTE | 2024-01-07 06:59 | Electrocardiogram Report ---
Test Reason : Blood Pressure : / mmHG Vent. Rate : 092 BPM Atrial Rate : 092 BPM P-R Int : 144 ms QRS Dur : 068 ms QT Int : 352 ms P-R-T Axes : 037 009 004 degrees QTc Int : 435 ms Normal sinus rhythm Nonspecific ST abnormality Abnormal ECG When compared with ECG of 19-NOV-2023 21:57, No significant change was found Confirmed by Wei Delgado ([id number]) on 01/07/2024 6:59:30 AM Referred By: Confirmed By:Wei Delgado
[2024-01-07 07:31] LABS: INR 1.7 (0.9-1.1); Prothrombin Time 18.2 Seconds (9.0-12.0)
--- NOTE | 2024-01-07 12:08 | Hospitalist Progress Note ---
Date of Service January 07, 2024 Assessment & Plan (1) UTI (urinary tract infection): Plan: per previous hospitalist notes with addendum: Pt presents w/ LLQ abd. pain CT abd/ pelvis 1. Mild rectal wall thickening which is improved. No evidence for fecal impaction at this time. 2. Small amount of gas and fluid within the endometrium which has improved. 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 3. Bladder wall thickening again noted consistent with a cystitis. There is also urothelial thickening within the bilateral renal collecting systems and ureters consistent with a bilateral pyelitis. Recommend correlation with urinalysis. 4. Mild fullness within the left renal collecting system without dena hydronephrosis. There is a 7 mm calcification within the left deep pelvis which favors a phlebolith. However, this is in close proximity to the distal left ureter. Therefore, a distal left ureteral stone is not excluded. 5. Bilateral nephrolithiasis. UA c/w UTI ucultx - multiple bacteria, will repeat sample. repeat cultx pending WBC mildly elevated at 11k on admission - started on Rocephin in the ED, will cont. ? L ureteral stone - urology consulted - currently LLQ pain resolved 4/2 clinically improving Urine culture: More than three types of organisms present, all high counts. Repeat collection recommended. No further identifications or sensitivities to follow. repeat urine culture ordered blood cultures: pending continue Ceftriaxone IV day # 3 plan to transition to PO Cefdinir upon discharge to complete 10 day course Probiotics daily Hx of DVT - on warfarin, cont., monitor INR - INR still 1.7 coumadin 3mg po for now INR daily Hypertension - cont. lisinopril GERD on PPI Chronic anemia (Hgb baseline ~11) Hgb 13 on admission, now after receiving IVF overnight Hgb 11.4 - cont. to monitor SIADH, as per records Na level 142 on admission, now 136 - cont. to monitor Primary hyperparathyroidism, conservative management as per outpatient [facility] [place] Endocrinology note History of Spencer's palsy Mood disorder, stable dementia, Delirium precautions Code status: DNR/DNI - confirmed w/ pt's daughter at the bedside Disposition lives with her PT/OT evaluation Admission and Anticipated Discharge Date Admission Date: January 04, 2024 Subjective ff up for UTI, etc seen resting in bed, comfortable in good spirits states she feels that she is improving daily denies problems with urination, back/flack/abdominal pain no fever/chills, nausea/vomiting no other symptoms Review of Systems Review of Systems: all noted and negative except for above Physical Exam Physical Exam: General- oriented x 3, not in distress, speaks in sentences with no effort or accessory muscle use Eyes- anicteric Neck- no JVD Lungs- clear breath sounds bilaterally, no rales/wheezes Heart- normal rate, regular rhythm; no murmurs Abdomen- normal bowel sounds, nondistended, soft, nontender no CVA tenderness Extremities- no pretibial edema, no calf tenderness Neuro- alert, oriented x 3; no gross focal neurologic deficits Skin- warm & dry Results & Data Results & Data Vital Signs (Past 12 Hours) Vital Signs Temp Pulse Pulse Resp BP Pulse Ox O2 Del Method 01/07/24 11:53 37.0 C 79 16 113/69 95 Room Air 01/07/24 07:55 36.8 C 80 16 144/81 H 93 Room Air 01/07/24 05:56 81 01/07/24 03:35 142/79 H 01/07/24 03:18 36.8 C 82 18 161/84 H 93 Room Air all noted and reviewed including below
[2024-01-07] MEDS: POT PHOSPHATE MONOBASIC W/ SOD TAB PO SCH (12:40)
[2024-01-07] MEDS: WARFARIN SOD 3 MG TAB PO SCH (17:58)
[2024-01-08 07:14] LABS: Basophils # (auto) 0.04 K/uL (0.00-0.20); Basophils % (auto) 0.6 %; Eosinophils # (auto) 0.19 K/uL (0.00-0.50); Eosinophils % (auto) 2.9 %; Hematocrit (blood only) 30.9 % (37.0-47.0); Hemoglobin 9.8 g/dl (12.0-16.0); Immature Granulocytes # (auto) 0.02 K/uL (0.01-0.20); Immature Granulocytes % (auto) 0.3 %; Lymphocytes # (auto) 1.76 K/uL (1.20-3.40); Mean Corpuscular Hemoglobin 26.5 pg (25.0-34.0); Mean Corpuscular Hgb Conc 31.7 g/dL (32.0-36.0); Mean Corpuscular Volume 83.5 fL (80.0-100.0); Mean Platelet Volume 9.9 fL (9.4-12.4); Monocytes # (auto) 0.68 K/uL (0.11-0.59); Monocytes % (auto) 10.4 %; Neutrophils # (auto) 3.83 K/uL (1.40-6.50); Neutrophils % (auto) 58.8 %; Platelet Count 269 K/uL (130-400); RDW Coefficient of Variation 13.8 % (11.5-14.5); RDW Standard Deviation 42.1 fL (36.4-46.3); White Blood Count 6.52 K/ul (4.8-10.8)
[2024-01-08 07:35] LABS: BUN Creatinine Ratio 22.8 (10-20); Calcium 9.3 mg/dl (8.6-10.3); Creatinine Clr Calc Pharmacy 51.8 ml/min; Est GFR (Non-African American) 84.5 ml/min; Potassium 3.1 mmol/L (3.5-5.1)
[2024-01-08 07:36] LABS: INR 1.7 (0.9-1.1); Prothrombin Time 18.3 Seconds (9.0-12.0)
[2024-01-08 09:07] LABS: Magnesium 1.8 mg/dl (1.7-2.4); Phosphorus 3.3 mg/dl (2.5-4.9)
[2024-01-08] MEDS: POTASSIUM CHLORIDE CRTAB 20 MEQ TABCR PO STA (09:08)
--- NOTE | 2024-01-08 11:29 | Hospitalist Progress Note ---
Date of Service January 08, 2024 Assessment & Plan (1) UTI (urinary tract infection): Plan: per previous hospitalist notes with addendum: Pt presents w/ LLQ abd. pain CT abd/ pelvis 1. Mild rectal wall thickening which is improved. No evidence for fecal impaction at this time. 2. Small amount of gas and fluid within the endometrium which has improved. 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 3. Bladder wall thickening again noted consistent with a cystitis. There is also urothelial thickening within the bilateral renal collecting systems and ureters consistent with a bilateral pyelitis. Recommend correlation with urinalysis. 4. Mild fullness within the left renal collecting system without dena hydronephrosis. There is a 7 mm calcification within the left deep pelvis which favors a phlebolith. However, this is in close proximity to the distal left ureter. Therefore, a distal left ureteral stone is not excluded. 5. Bilateral nephrolithiasis. UA c/w UTI ucultx - multiple bacteria, will repeat sample. repeat cultx pending WBC mildly elevated at 11k on admission - started on Rocephin in the ED, will cont. ? L ureteral stone - urology consulted - currently LLQ pain resolved 4/2 clinically improving Urine culture: More than three types of organisms present, all high counts. Repeat collection recommended. No further identifications or sensitivities to follow blood cultures: negative x 48 hrs given Ceftriaxone IV x 4 days transition to PO Cefdinir upon discharge to complete 10 day course Probiotics daily Hx of DVT - on warfarin, cont., monitor INR - INR still 1.7 coumadin 4mg today repeat INR tomorrow and dose coumadin accordingly Hypertension - cont. lisinopril GERD on PPI Chronic anemia (Hgb baseline ~11) Hgb 13 on admission, now after receiving IVF overnight Hgb 11.4 - cont. to monitor - repeat CBC in 2-3 days SIADH, as per records Na level 142 on admission, now 136 - stable at 138 Primary hyperparathyroidism, conservative management as per outpatient [facility] [place] Endocrinology note History of Spencer's palsy Mood disorder, stable dementia, Delirium precautions Code status: DNR/DNI - confirmed w/ pt's daughter at the bedside Disposition d/c to [facility] Admission and Anticipated Discharge Date Admission Date: January 04, 2024 Subjective ff up for UTI, etc seen resting in bed, comfortable states she feels fine overall no abdominal, flank, back pain no dysuria no fever/chills no other symptoms states she is ready to return to [facility] today Review of Systems Review of Systems: all noted and negative except for above Physical Exam Physical Exam: General- oriented x 3, not in distress, speaks in sentences with no effort or accessory muscle use Eyes- anicteric Neck- no JVD Lungs- clear breath sounds bilaterally, no rales/wheezes Heart- normal rate, regular rhythm; no murmurs Abdomen- normal bowel sounds, nondistended, soft, nontender Extremities- no pretibial edema, no calf tenderness Neuro- alert, oriented x 3; no gross focal neurologic deficits Skin- warm & dry Results & Data Results & Data Vital Signs (Past 12 Hours) Vital Signs Temp Pulse Pulse Resp BP Pulse Ox O2 Del Method 01/08/24 07:52 36.4 C L 63 16 125/72 95 Room Air 01/08/24 05:50 72 01/08/24 03:04 36.7 C 70 18 149/78 H 94 Room Air all noted and reviewed including below
--- NOTE | 2024-01-08 11:43 | Discharge Summary ---
Discharge Summary Date of Service January 08, 2024 Notes For Next Care Provider Medication Changes From Visit Cefdinir 300 mg p.o. twice daily x 6 days Potassium increased to 20 mg once daily Warfarin 4 mg 1 dose today January 08, 2024 Repeat INR tomorrow, dose Coumadin accordingly Admission HPI Per Admitting Provider 83 yo F w/ hx of hypertension, breast cancer left status post surgery, SIADH as per records, primary hyperparathyroidism, GERD, chronic back pain, chronic anemia (baseline hemoglobin 11), history of Spencer's palsy, mood disorder, dementia. Recently admitted in November 2023 for Acute right hemispheric ischemic stroke. Currently presents with LLQ abd. pain. UA c/w UTI and she was started on Rocephin in the ED. CT abd. pelvis also obtained , w/ ? poss. L ureteral stone. LLQ pain started today, and currently resolved with Tylenol and after starting IV antibiotics and fluids in the ED. Currently she is lying in bed in no acute distress, her daughter is present at the bedside. Denies any fevers chills, chest pain shortness of breath. Denies any nausea vomiting. Denies diarrhea. Admission Exam Per Admitting Provider Constitutional: WD/WN, vitals as aboveEyes: PERRL, conjunctivae normal, anicteric scleraeENMT: external ear and nose normal, oropharynx normalNeck: trachea midline, no thyromegalyRespiratory: normal respiratory effort, lungs clear to auscultationCardiovascular: RRR, no murmur, no edemaChest (Breasts): Chest: normal inspection of chestGastrointestinal (Abdomen): normal bowel sounds, soft, nontender, no hepatosplenomegalyMusculoskeletal: Head/Neck/Chest: normocephalic (moves extremities)Skin: no rashes, warm and dryNeurologic: PERRL, EOMI, accommodation nl, no face palsy, no dysarthria Principal Dx & Hospital Course #1 = Principal Diagnosis (1) UTI (urinary tract infection): per previous hospitalist notes with addendum: Possible urinary tract infection, left ureteral stone Pt presents w/ LLQ abd. pain CT abd/ pelvis 1. Mild rectal wall thickening which is improved. No evidence for fecal impaction at this time. 2. Small amount of gas and fluid within the endometrium which has improved. 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 3. Bladder wall thickening again noted consistent with a cystitis. There is also urothelial thickening within the bilateral renal collecting systems and ureters consistent with a bilateral pyelitis. Recommend correlation with urinalysis. 4. Mild fullness within the left renal collecting system without dena hydronephrosis. There is a 7 mm calcification within the left deep pelvis which favors a phlebolith. However, this is in close proximity to the distal left ureter. Therefore, a distal left ureteral stone is not excluded. 5. Bilateral nephrolithiasis. UA c/w UTI ucultx - multiple bacteria, will repeat sample. repeat cultx pending WBC mildly elevated at 11k on admission - started on Rocephin in the ED, will cont. ? L ureteral stone - urology consulted - currently LLQ pain resolved 4/2 clinically improving Urine culture: More than three types of organisms present, all high counts. Repeat collection recommended. No further identifications or sensitivities to follow blood cultures: negative x 48 hrs given Ceftriaxone IV x 4 days Clinically improved Renal function at baseline transition to PO Cefdinir upon discharge to complete 10 day course Probiotics daily Follow-up with urologist Dr. Jacoby Henriquez in 1 to 2 weeks Hx of DVT - on warfarin, cont., monitor INR - INR still 1.7 coumadin 4mg today repeat INR tomorrow and dose coumadin accordingly Abnormal CT finding There is an ectatic abdominal aorta measuring 2.2 cm. -Further evaluation and management as an outpatient Hypertension - cont. lisinopril GERD on PPI Chronic anemia (Hgb baseline ~11) Hgb 13 on admission, now after receiving IVF overnight Hgb 11.4 - cont. to monitor - repeat CBC in 2-3 days SIADH, as per records Na level 142 on admission, now 136 - stable at 138 Primary hyperparathyroidism, conservative management as per outpatient [facility] Endocrinology note History of Spencer's palsy Mood disorder, stable dementia, Delirium precautions Code status: DNR/DNI - confirmed w/ pt's daughter at the bedside Disposition d/c to [facility] follow-up in 1 week Discharge Exam General- oriented x 3, not in distress, speaks in sentences with no effort or accessory muscle use Eyes- anicteric Neck- no JVD Lungs- clear breath sounds bilaterally, no rales/wheezes Heart- normal rate, regular rhythm; no murmurs Abdomen- normal bowel sounds, nondistended, soft, nontender Extremities- no pretibial edema, no calf tenderness Neuro- alert, oriented x 3; no gross focal neurologic deficits Skin- warm & dry Updated Medication List Medication Instructions Recorded Confirmed Type loratadine 10 mg tablet (Claritin) 10 mg PO QAM 12/25/21 01/04/24 History famotidine 20 mg tablet 20 mg PO BID #14 tabs 02/15/22 01/04/24 Rx polyethylene glycol 3350 17 gram 17 g PO BID #14 ea 02/15/22 01/04/24 Rx oral powder packet (Miralax) mirtazapine 15 mg tablet 7.5 mg PO HS 03/15/23 01/04/24 History sertraline 25 mg tablet 25 mg PO DAILY 03/15/23 01/04/24 History acetaminophen 325 mg tablet 650 mg PO Q4H PRN PAIN/FEVER>100 11/19/23 01/04/24 History (Tylenol) carboxymethylcellulose sodium 1 % 2 drp OPL TID 11/19/23 01/04/24 History eye drops (Artificial Tears (carboxymethylcellulose)) docusate sodium 100 mg capsule 100 mg PO QAM 11/19/23 01/04/24 History omeprazole 20 mg capsule,delayed 20 mg PO DAILY 11/19/23 01/04/24 History release potassium chloride 10 mEq 10 meq PO DAILY 11/19/23 01/04/24 History tablet,extended release(part/cryst) aspirin 81 mg tablet,delayed 81 mg PO QAM #30 tabs 11/27/23 01/04/24 Rx release atorvastatin 40 mg tablet 40 mg PO QAM #30 tabs 11/27/23 01/04/24 Rx lisinopril 5 mg tablet (Zestril) 5 mg PO QAM #30 tabs 11/27/23 01/04/24 Rx Saccharomyces boulardii 250 mg 250 mg PO QAM 01/04/24 01/04/24 History capsule sodium chloride 0.65 % nasal spray 2 spray intranasal TID 01/04/24 01/04/24 History aerosol (Saline Nasal) warfarin 1 mg tablet 2 mg PO DAILY@1600 01/04/24 01/04/24 History wound dressings (Triad Wound 1 applic topical DAILY 01/04/24 01/04/24 History Dressing paste) cefdinir 300 mg capsule 300 mg PO BID 6 days #12 caps 01/08/24 Rx Hospital Stay Data Consultations 01/04/24 12:12 ED Decision to Admit Stat 01/04/24 12:29 Consult Urology Routine Diagnostic Imagining Performed 01/04/24 07:41 CT abd pelvis IV con only Stat ABDOMEN AND PELVIS CT WITH IV CONTRAST CT DOSE: 840.65 mGy.cm HISTORY: LLQ pain TECHNIQUE: Multiaxial CT images of the abdomen and pelvis were performed following the use of intravenous contrast. A dose lowering technique was utilized adhering to the principles of ALARA. COMPARISON STUDY: Abdomen and pelvis CT 03/15/2023. FINDINGS: Persistent elevation of the right hemidiaphragm. Bibasilar linear densities favor subsegmental atelectasis. No pneumoperitoneum. No pneumatosis. Postoperative changes seen within the bilateral hips. There is an old severe compression deformity at T12 with retropulsion and moderate central canal narrowing at this level. This remains unchanged. No acute fractures identified. There is a moderate hiatus hernia, unchanged. Prior cholecystectomy. This likely accounts for the mild bile duct dilatation. No hepatic or splenic masses. The adrenal glands and pancreas are unremarkable. No retroperitoneal lymphadenopathy. There is an ectatic abdominal aorta measuring 2.2 cm. No pelvic lymphadenopathy or pelvic free fluid. The pelvic structures are suboptimally assessed due to the metallic artifact. There is thickening and enhancement within the bladder wall again noted. This is similar to the prior study and favors a cystitis. Small amount of fluid and gas within the endometrium of the uterus has improved. Mild rectal wall thickening has also improved. Colonic diverticulosis. No evidence for acute diverticulitis. No evidence for bowel obstruction. Normal appendix. Bilateral nephrolithiasis the dominant stone within the right renal pelvis measuring 6 mm. Bilateral renal hypodense lesions are again noted and favor cysts. There is urothelial enhancement within the bi lateral renal collecting systems and ureters most pronounced on the left. There is mild fullness within the left renal collecting system without dena hydronephrosis. There is a 7 mm calcification within the left deep pelvis on image 270. This is in close proximity to the distal left ureter. However, the distal left ureter is obscured by the metallic artifact at this location. This favors a phlebolith. A distal left ureteral stone is not excluded. 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 This may be obscured by the metallic artifact. IMPRESSION: 1. Mild rectal wall thickening which is improved. No evidence for fecal impaction at this time. 2. Small amount of gas and fluid within the endometrium which has improved. 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 3. Bladder wall thickening again noted consistent with a cystitis. There is also urothelial thickening within the bilateral renal collecting systems and ureters consistent with a bilateral pyelitis. Recommend correlation with urinalysis. 4. Mild fullness within the left renal collecting system without dena hydronephrosis. There is a 7 mm calcification within the left deep pelvis which favors a phlebolith. However, this is in close proximity to the distal left ureter. Therefore, a distal left ureteral stone is not excluded. 5. Bilateral nephrolithiasis. 6. Additional findings as described above. ACT 112: Negative or not required by law. Electronically signed by: Young Monge M.D. 01/04/2024 9:44 AM Pending Results Patient Have Any Pending Studies at Discharge: Yes Discharge Instructions Given to Patient (Per Discharging Provider) Complete 6 more days of cefdinir p.o. twice daily. Probiotics daily x 1 month. INR today is 1.7. Coumadin 4 mg today January 08, 2024. Repeat INR tomorrow, dose Coumadin accordingly. Monitor INR closely. Potassium level 3.1. Potassium supplement increased to 20 mg daily. Repeat potassium level tomorrow January 09, 2024. Repeat CBC in 2 to 3 days to monitor anemia. Please refer to accompanying hospital discharge summary for further details. Total Time Total Time Spent Total Time Spent (In Minutes): >30 days
== END 2024-01-08 14:47 | DRG 690 ==
LOC: ED 07:23 → SUATTDRO 12:20 → 2N 12:20

== ENCOUNTER 2024-06-21 01:11 | Inpatient (IN) ==
--- OUTSIDE RECORDS SUMMARY | 2024-06-21 01:18 | External Medical Summary | Summary of Care ---
Author Name Unknown Organization [facility] Address [address] [place] [address] Phone [phone] Care Team Providers Care Adult Ministries Director Name Role Phone Angie Perez MD Primary Care Provider [phone] Encounter Details Date Type Department Care Team (Late st Contact Info) Description 06/12/2024 Telephone [facility] [place] [address] [place] [address] Mahsa Wang, WOODWORK TEACHER [address] [place] [address] Allergies Active Allergy Reactions Criticality Noted Date Comments Bacitracin Itching 02/20/2018 Ezetimibe 09/19/2008 Shellfish Allergy 03/25/2023 Sulfa Antibiotics 12/24/2017 Tramadol Itching 12/24/2017 documented as of this encounter (statuses as of 06/16/2024) Medications Medication Sig Dispensed Refills Start Date End Date Status Acetaminophen 325 MG Oral Tablet (Tylenol) Take by mouth 2 Tablets every 4 hours as needed for Fever >38C(100.5F) or Pain, Breakthrough. 100 Tablet 3 2 Active Docusate Sodium 100 MG Oral Tablet Take 1 Tablet by mouth in the morning. Active Aspirin 81 MG Oral Tablet Chewable (Aspirin 81) Take 1 Tablet by mouth in the morning. Active Saline Nasal [place] 0.65 % Nasal Solution (Montrose) Administer 1 [place] into nostril as needed for Congestion. 4 Active Saccharomyces boulardii 250 MG Oral Packet Take 250 mg by mouth in the morning. 4 Active Polyethylene Glycol 3350 17 GM/SCOOP Oral Powder (MiraLax) Take 17 g by mouth in the morning and 17 g before bedtime. Dissolve one heaping tablespoon in 8 ounces of water or juice.. 4 Active Atorvastatin Calcium 40 MG Oral Tablet (Lipitor)Indications :History of cerebrovascular accident Take 1 tablet by mouth once a day at lunchtime 90 Tablet 3 4 Active Lisinopril 5 MG Oral Tablet (Prinivil)Indication s:HTN, goal below 150/90 Take 1 Tablet by mouth in the morning. 90 Tablet 3 4 Active Loratadine 10 MG Oral Tablet (Claritin) Take 1 Tablet by mouth in the morning. 90 Tablet 3 4 Active Mirtazapine 15 MG Oral Tablet (Remeron)Indications :Moderate episode of recurrent major depressive disorder (HCC) Take one-half tablet by mouth at bedtime. 45 Tablet 3 4 Active Omeprazole 20 MG Oral Capsule Delayed Release (PriLOSEC)Indication s:Gastroesophageal reflux disease without esophagitis Take 1 Capsule by mouth in the morning. 90 Capsule 3 4 Active Sertraline HCl 25 MG Oral Tablet (Zoloft)Indications: Moderate episode of recurrent major depressive disorder (HCC) Take 1 Tablet by mouth in the morning. 90 Tablet 3 4 Active Potassium Chloride Mimi ER 10 MEQ Oral Tablet Extended Release Take 2 tablets by mouth at lunchtime 180 Tablet 3 4 Active Calmoseptine 0.44-20.6 % External Ointment (Menthol-Zinc Oxide) Apply thin layer to affected area with each change, up to 4 times daily 113 g 1 4 Active Mometasone Furoate 50 MCG/ACT Nasal Suspension Administer 2 Sprays into nostril in the morning. 18 g 5 4 Active Apixaban 2.5 MG Oral Tablet (Eliquis) Take 1 Tablet by mouth in the morning and 1 Tablet before bedtime. 180 Tablet 3 4 Active Warfarin Sodium 3 MG Oral Tablet (Coumadin)Indication s:History of DVT (deep vein thrombosis),Anticoag ulation management encounter Take 1 Tablet by mouth every evening. OR DIRECTED BY COUMADIN CLINIC 90 Tablet 3 4 06/16/20 24 Discontinued documented as of this encounter (statuses as of 06/16/2024) Active Problems Problem Noted Date Diagnosed Date Anticoagulation management encounter 04/07/2024 Hemiplegia and hemiparesis f ollowing cerebral infarction affecting left non-dominant side 02/13/2024 Last Assessment & Plan: H/o CVA Acute deep vein thrombosis ( DVT) of [...] of recurrent major depressive d isorder 01/04/2022 Last Assessment & Plan: Continue sertraline and remeron Senile dementia, uncomplicated 05/18/2021 Last Assessment & Plan: Advanced dementia Daughter providing 29/04 care Previously on hospice care, family could reconsider Spencer's palsy 10/19/2019 Senile osteoporosis 01/02/2019 Closed stable burst fracture of twelfth thoracic vertebra with routine healing 12/24/2017 Spondylolisthesis of lumbar region 12/24/2017 DDD (degenerative disc disease), lumbar 12/25/19 18 Spinal stenosis of lumbar re gion without neurogenic claudication 12/24/2017 HTN, goal below 150/90 documented as of this encounter (statuses as of 06/16/2024) Resolved Problems Problem Noted Date Diagnosed Date [...] as of this encounter (statuses as of 06/16/2024) Immunizations Name Administration Dates Next Due COVID-19 mRNA, LNP-s, No Pre serve, 2-Dose Series (We[employer]ics) 08/19/2021,12/26/2020,12/05/2020 COVID-19, MRNA-LNP, 23-24, P F, 30 MCG/0.3 mL, 12 YRS AND ABOVE, IM ([facility]) 03/05/2024 Covid-19, Mrna, Lnp-s, Pf, B ivalent, 30 Mcg, IM, 12 yrs and above (WeComics) 07/30/2023 H1N1 2009 Influenza, IM 08/10/2009 Pneumococcal Conjugate Vacc, 13 Valent (Prevnar) 06/27/2015 Pneumococcal Polysaccharide PPV23 (Pneumovax) 12/18/2011 RSV Vac., Bivalent, Perfusio n F, Pf,0.5 Ml (Abrysvo) 07/11/2023 Season Influenza, Quad, PF, Adjuvanted, 65+ Yrs, IM (FLUAD) 07/13/2020 Seasonal Influenza, High Dos e, Trivalent, PF, IM (Fluzone HD) 08/05/2014 Seasonal Influenza, Quadriva lent Hd (Fluzone Hd) 09/05/2021 Seasonal Influenza, Quadriva lent Hd, 65+ Yrs 07/26/2023 Seasonal Influenza, Quadriva lent, No Preserve, IM 07/07/2017,07/07/2016,07/07/2015 Seasonal Influenza, Recombin ant, RIV4, PF, (Flublock) 07/03/2018 Seasonal Influenza, Trivalen t, (IIV3), with Preserv, (Fluzone) 07/03/2018,07/07/2013 Seasonal Influenza, Trivalen t, Adjuvanted, 65+ YRS, PF, (Fluad) 07/20/2019 TDAP (age 10 and older)(Boostrix) 10/15/2011 Varicella [...] in the Last Year Never true 05/31/2020 Utilities Answer Date Recorded Do you have trouble paying y our heating, water, or electric bill? (Adult - for ages 18 years and over) Not on file 03/24/2024 Is your family able to pay t he heat, water, or electric bill? (Household - for ages 0-17 years) Not on file 03/24/2024 Does your family have access to good internet? (Household - for ages 0-17 years) Not on file 03/24/2024 Social Connections Answer Date Recorded How often do you feel lonely or isolated from those around you? (Adult - for ages 18 years and over) Not on file 03/24/2024 Sex and Gender Information Value Date Recorded [...] as of this encounter Miscellaneous Notes * Addendum Note - Bhavya Begum PA-C - 06/16/2024 9:34 AM EDTAddended by: BHAVYA BEGUM on: 06/16/2024 09:34 AM Modules accepted: Orders * Telephone Encounter - Mahsa Wang LPN - 06/12/2024 10:49 AM EDT Received call from patient daughter asking to speak to Bhavya Begum regarding their discussion regarding eliquis on 06/09 She states they would like to try eliquis Routing to Care team She states they use [facility] pharmacy selected under medications documented in this encounter Plan of Treatment Upcoming Encounters Date Type Department Care Team (Late st Contact Info) Description 06/23/2024 7:05 AM EDT Laboratory Lab [facility] [address] [place] [id number] [facility] [address] [place] [id number] 06/24/2024 6:00 AM EDT Anticoagulation [facility], Milli Breen [address] [place] [address] [place] [address] [facility], [address] [place] [address] 06/30/2024 7:00 AM EDT Laboratory Lab [facility] [address] [place] [id number] [facility] [address] [place] [id number] 07/06/2024 4:00 PM EDT Home Visit [facility] [address] [facility] [place] [address] Sandra Cullen RN [address] [facility] [place] [address] 07/14/2024 7:00 AM EDT Laboratory Lab [facility] [address] [place] [id number] [facility] [address] [place] [id number] 07/28/2024 7:00 AM EDT Laboratory Lab [facility] [address] [place] [id number] [facility] [address] [place] [id number] 07/29/2024 11:30 AM EDT Home Visit [facility] [address] [facility] [place] [address] Sandra Cullen RN [address] [facility] [place] [address] 08/10/2024 10:40 AM EST Office Visit Family Practice [facility] [address] [facility] [address] [place], [place] [address] Angie Perez MD [address] [facility] [address] [place] [address] 08/11/2024 7:00 AM EST Laboratory Lab [facility]bot[facility] [address] [place] [address] [facility] [address] [place] [address] 08/18/2024 7:00 AM EST Laboratory Lab [facility]lebot[facility] [address] [place] [id number] [facility] [address] [facility] [place] [address] 08/25/2024 7:00 AM EST Laboratory Lab [facility] Phlebotomy [facility] [address] [facility] [place] [address] [facility] [address] [facility] [place] [address] 09/01/2024 7:00 AM EST Laboratory Lab [facility]lebot[facility] [address] [facility] [place] [address] [facility] [address] [facility] [place] [address] 09/08/2024 7:00 AM EST Laboratory Lab [facility] [address] [facility] [place] [address] [facility] [address] [facility] [place] [address] 2024 7:00 AM EST Laboratory Lab [facility] [address] [place] [address] [facility] Draw [address] [place] [address] 09/22/2024 7:00 AM EST Laboratory Lab [facility] Phlebot[facility] [address] [facility] [place] [address] [facility] Draw [address] [facility] [place] [address] 09/29/2024 7:00 AM EST Laboratory Lab [facility] Phlebotomy [facility] [address] [facility] [place] [address] [facility] Draw [address] [facility] [place] [address] 10/06/2024 7:00 AM EST Laboratory Lab [facility] [address] [facility] [place] [address] [facility] Draw [address] [facility] [place] [address] Health Maintenance Due Date Last Done Comments Albumin/Creatinine Ratio 1958 Adult Wellness Visit 09/25/2020 09/25/2019 DTap/Tdap Vaccines (2 - Td or Tdap) 10/15/2021 10/15/2011 Depression Monitoring 05/18/2022 05/18/2021 DXA Scan 05/02/2024 05/02/2022, 04/07, 12/03/2018, Additional history exists COVID-19 Vaccine ( season) 2024 03/05/2024, 03/05/2024, 07/30/2023, Additional history exists Influenza Vaccine (FLU shot) (#1) 2024 07/26/2023, 07/23/2022, 09/05/2021, Additional history exists Zoster Vaccines Completed 11/04/2019, 10/08, 05/27/2019, Additional history exists VITAMIN D LEVEL ONCE IN A LIFETIME-USE SMARTSET# [id number] Completed 05/31/2020, 11/25/2019, 08/06/2019, Additional history exists Pneumococcal Vaccine: 65+ Years Completed 06/04/2023, 06/27/2015, 12/18/2011 HPV (Gardasil) Vaccine Aged Out No lo nger eligible based on patient's age to complete this topic Hepatitis B Vaccine Aged Out No longe r eligible based on patient's age to complete this topic MENINGOCOCCAL (MENACTRA/MENVEO) Aged Out No longer eligible based on patient's age to complete this topic documented as of this encounter Medical Devices Not on filedocumented as of this encounter Advance Directives Documents on File Type Date Recorded Patient Amusement Ride Inspector Expl anation POLST 04/27/2024 8:38 AM OOH-DNR Advance Directives and Living Will 04/21/2024 10:30 AM POA and Living Will Healthcare Agents on File Name Relationship Healthcare Agent Relationship Communication Tank Haq Adult Child First Alternate Health Care Agent (per Health Care Power of Rental Sales Associate document) Jo-Ann Rose Adult Child First Alternate Health Care Agent (per Health Care Power of Rental Sales Associate document) [email or web address] Care Teams Adult Ministries Director Relationship Specialty Start Date End Date Angie Perez MD [address] [facility] [place] [address] PCP - General Family Medicine 04/07/24 documented as of this encounter
--- OUTSIDE RECORDS SUMMARY | 2024-06-21 01:18 | External Medical Summary | Summary of Care ---
Author Name Unknown Organization [facility] Address [address] [place] [address] Phone [phone] Care Team Providers Care Cement Handler Name Role Phone Angie Perez MD Primary Care Provider [phone] Reason for Visit * Reason Comments Dosage Adjustment Via Phone (anticoag Cl inic) Encounter Details Date Type Department Care Team (Late st Contact Info) Description 06/10/2024 6:00 AM EDT Anticoagulation Centralized Clinical [facility] Services, Milli Breen [address] [place] [address] [place] [address] [place] [address] Anticoagulation management encounter* Allergies Active Allergy Reactions Criticality Noted Date Comments Bacitracin Itching 02/20/2018 Ezetimibe 09/19/2008 Shellfish Allergy 03/25/2023 Sulfa Antibiotics 12/24/2017 Tramadol Itching 12/24/2017 documented as of this encounter (statuses as of 06/10/2024) Medications Medication Sig Dispensed Refills Start Date End Date Status Acetaminophen 325 MG Oral Tablet (Tylenol) Take by mouth 2 Tablets every 4 hours as needed for Fever >38C(100.5F) or Pain, Breakthrough. 100 Tablet 3 03/14/2022 Active Docusate Sodium 100 MG Oral Tablet Take 1 Tablet by mouth in the morning. Active Aspirin 81 MG Oral Tablet Chewable (Aspirin 81) Take 1 Tablet by mouth in the morning. Active Saline Nasal [place] 0.65 % Nasal Solution (Mccone) Administer 1 [place] into nostril as needed for Congestion. 12/12/2023 Active Saccharomyces boulardii 250 MG Oral Packet Take 250 mg by mouth in the morning. 12/12/2023 Active Polyethylene Glycol 3350 17 GM/SCOOP Oral Powder (MiraLax) Take 17 g by mouth in the morning and 17 g before bedtime. Dissolve one heaping tablespoon in 8 ounces of water or juice.. 02/13/2024 Active Atorvastatin Calcium 40 MG Oral Tablet (Lipitor)Indications: History of cerebrovascular accident Take 1 tablet by mouth once a day at lunchtime 90 Tablet 3 04/07/2024 Active Lisinopril 5 MG Oral Tablet (Prinivil)Indications :HTN, goal below 150/90 Take 1 Tablet by mouth in the morning. 90 Tablet 3 04/07/2024 Active Loratadine 10 MG Oral Tablet (Claritin) Take 1 Tablet by mouth in the morning. 90 Tablet 3 04/07/2024 Active Mirtazapine 15 MG Oral Tablet (Remeron)Indications: Moderate episode of recurrent major depressive disorder (HCC) Take one-half tablet by mouth at bedtime. 45 Tablet 3 04/07/2024 Active Omeprazole 20 MG Oral Capsule Delayed Release (PriLOSEC)Indications :Gastroesophageal reflux disease without esophagitis Take 1 Capsule by mouth in the morning. 90 Capsule 3 04/07/2024 Active Sertraline HCl 25 MG Oral Tablet (Zoloft)Indications:M oderate episode of recurrent major depressive disorder (HCC) Take 1 Tablet by mouth in the morning. 90 Tablet 3 04/07/2024 Active Potassium Chloride Mimi ER 10 MEQ Oral Tablet Extended Release Take 2 tablets by mouth at lunchtime 180 Tablet 3 04/07/2024 Active Warfarin Sodium 3 MG Oral Tablet (Coumadin)Indications :History of DVT (deep vein thrombosis),Anticoagu lation management encounter Take 1 Tablet by mouth every evening. OR DIRECTED BY COUMADIN CLINIC 90 Tablet 3 04/07/2024 Active Calmoseptine 0.44-20.6 % External Ointment (Menthol-Zinc Oxide) Apply thin layer to affected area with each change, up to 4 times daily 113 g 1 05/22/2024 Active Mometasone Furoate 50 MCG/ACT Nasal Suspension Administer 2 Sprays into nostril in the morning. 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 Senile osteoporosis 01/02/2019 Closed stable burst fracture of twelfth thoracic vertebra with routine healing 12/24/2017 Spondylolisthesis of lumbar region 12/24/2017 DDD (degenerative disc disease), lumbar 12/25/19 18 Spinal stenosis of lumbar re gion without neurogenic claudication 12/24/2017 HTN, goal below 150/90 documented as of this encounter (statuses as of 06/10/2024) Resolved Problems Problem Noted Date Diagnosed Date [...] as of this encounter (statuses as of 06/10/2024) Immunizations Name Administration Dates Next Due COVID-19 mRNA, LNP-s, No Pre serve, 2-Dose Series (Eurocept) 08/19/2021,12/26/2020,12/05/2020 COVID-19, MRNA-LNP, 23-24, P F, 30 MCG/0.3 mL, 12 YRS AND ABOVE, IM ([facility]) 03/05/2024 Covid-19, Mrna, Lnp-s, Pf, B ivalent, 30 Mcg, IM, 12 yrs and above (Eurocept) 07/30/2023 H1N1 2009 Influenza, IM 08/10/2009 Pneumococcal [...] as of this encounter Progress Notes * Juliana Bar PHARM Tech - 06/10/2024 8:44 AM EDT Contacts Contact Date/Time Type Contact Phone/Fax 06/10/2024 08:42 AM EDT Phone (Outgoing) Acmira Analy Keys (Self) [phone] (H) spoke to Jo-Ann Subjective Patient Findings Negatives: Signs/symptoms of bleeding, Change in health, Change in activity, Upcoming invasive procedure, Missed doses, Extra doses, Change in medications, Change in diet/appetite, Bruising Advised patient to contact Anticoagulation Clinic if any unusual bruising or bleeding, recent illness, changes in medication, or questions/concerns. PT/INR results, Coumadin dose instructions, and next PT/INR date communicated as noted by Pharmacist: THAD Benjamin 06/10/2024, 8:44 AM * Julissa Jean RPh - 06/10/2024 8:15 AM EDT Coumadin Clinic (region specific) Objective Current Warfarin Dose As of 06/10/2024 Warfarin maintenance plan: 5 mg (1 mg x 5) every Mon, Wed, Fri; 3 mg (1 mg x 3) all other days INR Result As of 06/10/2024 INR goal: 2.0-3.0 INR used for dosin.7 (06/09/2024) Assessment & Plan Warfarin Plan As of 06/10/2024 Full warfarin instructions: 5 mg every Mon, Wed, Fri; 3 mg all other days No change documented: Julissa Jean RPh Next INR check: 06/23/2024 Repeat PT/INR in 2 week(s) Weekly dose: not changed Additional Dosing Information: Description GML [facility] Tech to contact patient with dose instructions as noted. Julissa Jean RPh 06/10/2024, 8:15 AM documented in this encounter Plan of Treatment Upcoming Encounters Date Type Department Care Team (Late st Contact Info) Description 06/30/2024 7:00 AM EDT Laboratory Lab Mobile Phlebotomy [facility] [address] [facility] [place], [place] [address] Mvmg, Gml Mobile Home Draw [address] [facility] [place], [place] [address] 07/06/2024 4:00 PM EDT [facility] Visit [facility] [place], [facility] [address] [place] [address] Sandra Cullen RN 132 [facility] [place] [address] 07/14/2024 7:00 AM EDT Laboratory Lab Mobile Phlebotomy [facility] [address] [facility] [place], [place] [address] Mvmg, Gml Mobile Home Draw [address] [place] [address] 07/28/2024 7:00 AM EDT Laboratory Lab Mobile Phlebotomy [facility] [address] [facility] [place], [place] [address] Mvmg, Gml Mobile Home Draw [address] [place] [address] 07/29/2024 11:30 AM EDT Home Visit [facility] [place], [facility] [address] [place] [address] Sandra Cullen RN [address] [facility] [place] [address] 08/10/2024 10:40 AM EST Office Visit Family [facility] [place] [address] [place] [address] Angie Perez MD [address] [place] [address] 08/11/2024 7:00 AM EST Laboratory Lab Mobile Phlebotomy [facility] [address] [place] [address] Mvmg, Gml Mobile Home Draw [address] [facility] [place] [address] 08/18/2024 7:00 AM EST Laboratory Lab Mobile Phlebotomy MVMG [address] [place] [address] Mvmg, Gml Mobile Home Draw [address] [facility] [place] [address] 08/25/2024 7:00 AM EST Laboratory Lab Mobile Phlebotomy M[facility] [address] [place] [address] Mvmg, Gml Mobile Home Draw [address] [place] [address] 09/01/2024 7:00 AM EST Laboratory Lab Mobile Phlebotomy M[facility] [address] [place] [address] Mvmg, Gml Mobile Home Draw [address] [place] [address] 09/08/2024 7:00 AM EST Laboratory Lab Mobile Phlebotomy [facility] [address] [place] [address] Mvmg, Gml Mobile Home Draw [address] [place] [address] 2024 7:00 AM EST Laboratory Lab Mobile Phlebotomy [facility] [address] [place] [address] Mvmg, Gml Mobile Home Draw [address] [facility] [place] [address] 09/22/2024 7:00 AM EST Laboratory Lab Mobile Phlebotomy [facility] [address] [place] [address] Mvmg, Gml Mobile Home Draw [address] [place] [address] 09/29/2024 7:00 AM EST Laboratory Lab Mobile Phlebotomy [facility] [address] [facility] [place] [address] Mvmg, Gml Mobile Home Draw [address] [facility] [place] [address] 10/06/2024 7:00 AM EST Laboratory Lab Mobile Phlebotomy M[facility] [address] [facility] [place] [address] Mvmg, Gml Mobile Home Draw [address] [facility] [place] [address] Health Maintenance Due Date Last Done Comments Albumin/Creatinine Ratio 1958 Adult Wellness Visit 09/25/2020 09/25/2019 DTap/Tdap Vaccines (2 - Td or Tdap) 10/15/2021 10/15/2011 Depression Monitoring 05/18/2022 05/18/2021 DXA Scan 05/02/2024 05/02/2022, 04/07, 12/03/2018, Additional history exists COVID-19 Vaccine (2022- season) 2024 03/05/2024, 03/05/2024, 07/30/2023, Additional history exists Influenza Vaccine (FLU shot) (#1) 2024 07/26/2023, 07/23/2022, 09/05/2021, Additional history exists Zoster Vaccines Completed 11/04/2019, 10/08, 05/27/2019, Additional history exists VITAMIN D LEVEL ONCE IN A LIFETIME-USE SMARTSET# [id number] Completed 05/31/2020, 11/25/2019, 08/06/2019, Additional history exists [...] therapeutic drug monitoring documented in this encounter Advance Directives Documents on File Type Date Recorded Patient Stucco Mason Expl anation POLST 04/27/2024 8:38 AM OOH-DNR Advance Directives and Living Will 04/21/2024 10:30 AM POA and Living Will Healthcare Agents on File Name Relationship Healthcare Agent Relationship Communication Tank Haq Adult Child First Alternate Health Care Agent (per Health Care Power of Multi Line Claims Adjuster document) Jo-Ann Rose Adult Child First Alternate Health Care Agent (per Health Care Power of Multi Line Claims Adjuster document) [email or web address] Care Teams Cement Handler Relationship Specialty Start Date End Date Angie Perez MD [address] [place] [address], [place] [address] PCP - General Family Medicine 04/07/24 documented as of this encounter
--- OUTSIDE RECORDS SUMMARY | 2024-06-21 01:18 | External Medical Summary | Summary of Care ---
Author Name Unknown Organization [facility] Address [address] [place] [address] Phone [phone] Care Team Providers Care Bog Cutter Name Role Phone Angie Perez MD Primary Care Provider [phone] Reason for Visit * Reason Onset Date Comments Medication Update 06/12/2024 Encounter Details Date Type Department Care Team (Late st Contact Info) Description 06/12/2024 Telephone [facility] [address] [place] [address] Mahsa Wang, COLLECTOR OF INTERNAL REVENUE [address] [place] [address] Medication Update Allergies Active Allergy Reactions Criticality Noted Date [...] mouth in the morning. Active Saline Nasal [place] 0.65 % Nasal Solution ([place]) Administer 1 [place] into nostril as needed for Congestion. 4 [...] mRNA, LNP-s, No Pre serve, 2-Dose Series ([employer]Seek) 08/19/2021,12/26/2020,12/05/2020 COVID-19, MRNA-LNP, 23-24, P F, 30 MCG/0.3 mL, 12 YRS AND ABOVE, IM ([employer]) 03/05/2024 Covid-19, Mrna, Lnp-s, Pf, B ivalent, 30 Mcg, IM, 12 yrs and above ([employer]Seek) 07/30/2023 H1N1 2009 Influenza, IM 08/10/2009 Pneumococcal [...] encounter Miscellaneous Notes * Telephone Encounter - Julissa Jean RPh - 06/16/2024 11:07 AM EDT 06/16/2024 11:08 AM EDT by Julissa Jean RPh Outgoing Analy Haq (Self) Remove Spoke to Patient Spoke with daughter Jo-Ann today. Confirmed Eliquis copay is affordable for patient. Rx sent to [facility], Jo-Ann aware to call [facility] once Rx arrives. Advised to not start Eliquis until we advise (need INR less than 2.0). GML scheduled to repeat INR on 06/23. [facility] will follow up to advise for transition. Julissa Jean Rph, Pharm.D. Clinical Pharmacist Centralized Clinical Pharmacy Services ([facility]) [phone] 06/16/2024,11:11 AM * Addendum Note - Bhavya Lopez PA-C - 06/16/2024 9:34 AM EDTAddended by: BHAVYA LOPEZ on: 06/16/2024 09:34 AM Modules accepted: Orders * Telephone Encounter - Mahsa Wang LPN - 06/12/2024 10:49 AM EDT Received call from patient daughter asking to speak to Bhavya Lopez regarding their discussion regarding eliquis on 06/09 She states they would like to try eliquis Routing to Care team She states they use the [facility] [employer] mail order pharmacy pharmacy selected under medications documented in this encounter Plan of Treatment Upcoming Encounters Date Type Department Care Team (Late st Contact Info) Description 06/23/2024 7:05 AM EDT Laboratory Lab Mobile Phlebotomy [facility] [address] [place] [address] Mvmg, Gml Mobile Home Draw [address] [place] [address] 06/24/2024 6:00 AM EDT Anticoagulation Centralized Clinical Pharmacy Services, Milli Breen [address] [place] [address] [place] [address] [facility], [address] [place] [address] 06/30/2024 7:00 AM EDT Laboratory Lab Mobile Phlebotomy [facility] [address] [place] [address] Mvmg, Gml Mobile Home Draw [address] [place] [address] 07/06/2024 4:00 PM EDT [facility] Visit [facility] [place], [facility] 132 [facility] [place] [address] Sandra Cullen RN 132 [facility] [place] [address] 07/14/2024 7:00 AM EDT Laboratory Lab Mobile Phlebotomy [facility] [address] [place] [address] Mvmg, Gml Mobile Home Draw [address] [place] [address] 07/28/2024 7:00 AM EDT Laboratory Lab Mobile Phlebotomy [facility] [address] [place] [address] Mvmg, Gml Mobile Home Draw [address] [place] [address] 07/29/2024 11:30 AM EDT Home Visit [facility] [place] [address] [place] [address] Sandra Cullen, RN [address] [place] [address] 08/10/2024 10:40 AM EST Office Visit [facility] [address] [facility] [place], [place] [address] Angie Perez MD [address] [facility] [place] [address] 08/11/2024 7:00 AM EST Laboratory Lab Mobile Phlebotomy M[facility] [address] [employer] [place], [place] [address] Mvmg, Gml Mobile Home Draw [address] [facility] [place], [place] [address] 08/18/2024 7:00 AM EST Laboratory Lab Mobile Phlebotomy M[facility] [address] [facility] [employer] [facility] [place], [place] [address] Mvmg, Gml Mobile Home Draw [address] [place] [address] 08/25/2024 7:00 AM EST Laboratory Lab Mobile Phlebotomy M[facility] [address] [place] [address] [place], [place] [address] Mvmg, Gml Mobile Home Draw [address] [place] [address] 09/01/2024 7:00 AM EST Laboratory Lab Mobile Phlebotomy M[facility] [address] [facility] [employer] [place], [place] [address] Mvmg, Gml Mobile Home Draw [address] [place] [address] 09/08/2024 7:00 AM EST Laboratory Lab Mobile Phlebotomy [facility] [address] [facility] [employer] [facility] [place], [place] [address] Mvmg, Gml Mobile Home Draw [address] [facility] [employer] [facility] [place], [place] [address] 2024 7:00 AM EST Laboratory Lab Mobile Phlebotomy M[facility] [address] [place] [address] Mvmg, Gml Mobile Home Draw [address] [place] [address] 09/22/2024 7:00 AM EST Laboratory Lab Mobile Phlebotomy [facility] [address] [place] [address] Mvmg, Gml Mobile Home Draw [address] [place] [address] 09/29/2024 7:00 AM EST Laboratory Lab Mobile Phlebotomy [facility] [address] [place] [address] Mvmg, Gml Mobile Home Draw [address] [place] [address] 10/06/2024 7:00 AM EST Laboratory Lab Mobile Phlebotomy [facility] [address] [place] [address] Mvmg, Gml Mobile Home Draw [address] [place] [address] Health Maintenance Due Date Last Done Comments [...] D LEVEL ONCE IN A LIFETIME-USE SMARTSET# [id number] Completed 05/31/2020, 11/25/2019, 08/06/2019, Additional history exists [...] Documents on File Type Date Recorded Patient Tow Bar Driver Expl anation POLST 04/27/2024 8:38 AM OOH-DNR Advance Directives and Living Will 04/21/2024 10:30 AM POA and Living Will Healthcare Agents on File Name Relationship Healthcare Agent Relationship Communication Tank Haq Adult Child First Alternate Health Care Agent (per Health Care Power of Farm Specialist document) Jo-Ann Rose Adult Child First Alternate Health Care Agent (per Health Care Power of Farm Specialist document) [email or web address] Care Teams Bog Cutter Relationship Specialty Start Date End Date Angie Perez MD [address] [facility] [place] [address] PCP - General Family Medicine 04/07/24 documented as of this encounter
--- OUTSIDE RECORDS SUMMARY | 2024-06-21 01:18 | External Medical Summary | Summary of Care ---
Author Name Unknown Organization [facility] Address [address] [place] [address] Phone [phone] Care Team Providers Care Food Specialist Name Role Phone Angie Perez MD Primary Care Provider [phone] Encounter Details Date Type Department Care Team (Late st Contact Info) Description 06/12/2024 Telephone [facility] [address] [place] [address] Mahsa Wang, PHYSICIAN GENERAL PRACTICE [address] [place] [address] Allergies Active Allergy Reactions Criticality Noted Date Comments Bacitracin Itching 02/20/2018 Ezetimibe 09/19/2008 Shellfish Allergy 03/25/2023 Sulfa Antibiotics 12/24/2017 Tramadol Itching 12/24/2017 documented as of this encounter (statuses as of 06/12/2024) Medications Medication Sig Dispensed Refills Start Date [...] mouth in the morning. Active Saline Nasal [place] 0.65 % Nasal Solution ([place]) Administer 1 [place] into nostril as needed for Congestion. 12/12/2023 [...] tablets by mouth at lunchtime 180 Tablet 04/07/2024 Active Warfarin Sodium 3 MG Oral [...] as of this encounter (statuses as of 06/12/2024) Active Problems Problem Noted Date Diagnosed Date [...] as of this encounter (statuses as of 06/12/2024) Resolved Problems Problem Noted Date Diagnosed Date [...] as of this encounter (statuses as of 06/12/2024) Immunizations Name Administration Dates Next Due COVID-19 mRNA, LNP-s, No Pre serve, 2-Dose Series (Aprilage) 08/19/2021,12/26/2020,12/05/2020 COVID-19, MRNA-LNP, 23-24, P F, 30 MCG/0.3 mL, 12 YRS AND ABOVE, IM ([employer]) 03/05/2024 Covid-19, Mrna, Lnp-s, Pf, B ivalent, 30 Mcg, IM, 12 yrs and above (Pfizer) 07/30/2023 H1N1 2009 Influenza, IM 08/10/2009 Pneumococcal [...] encounter Miscellaneous Notes * Telephone Encounter - Mahsa Wang LPN - 06/12/2024 10:49 AM EDT Received call from patient daughter asking to speak to Gustavo Shy regarding their discussion regarding eliquis on 06/09 She states they would like to try eliquis Routing to Care team She states they use the [facility] mail order pharmacy pharmacy selected under medications documented in this encounter Plan of Treatment Upcoming Encounters Date Type Department Care Team (Late st Contact Info) Description 06/23/2024 7:05 AM EDT Laboratory Lab Mobile Phlebotomy M[facility] [address] [facility] [place] [address] Mvmg, Gml Mobile Home Draw [address] [facility] [place] [address] 06/24/2024 6:00 AM EDT Anticoagulation Centralized Clinical Pharmacy Services, [facility] [place] [address] [place] [address] [place] [address] [place] [address] 06/30/2024 7:00 AM EDT Laboratory Lab Mobile Phlebotomy [facility] [address] [place] [address] Mvmg, Gml Mobile Home Draw [address] [facility] [place] [address] 07/06/2024 4:00 PM EDT Home Visit [facility] [place], [facility] [address] [place] [address] Sandra Cullen, RN [address] [place] [address] 07/14/2024 7:00 AM EDT Laboratory Lab Mobile Phlebotomy MVMG [address] [employer] [place] [address] Mvmg, Gml Mobile Home Draw [address] [facility] [place], [place] [address] 07/28/2024 7:00 AM EDT Laboratory Lab Mobile Phlebotomy MVMG [address] [place] [address] [place], [place] [address] Mvmg, Gml Mobile Home Draw [address] [facility] [place], [place] [address] 07/29/2024 11:30 AM EDT Home Visit [facility] 132 [facility] [place] [address] Sandra Cullen RN [address] [place] [address] 08/10/2024 10:40 AM EST Office Visit [facility] 200 [facility] [place], [place] [address] Angie Perez MD 200 [facility] [place] [place] [address] 08/11/2024 7:00 AM EST Laboratory Lab Mobile Phlebotomy M[facility] [address] [place] [address] [place], [place] [address] Mvmg, Gml Mobile Home Draw [address] [facility] [place], [place] [address] 08/18/2024 7:00 AM EST Laboratory Lab Mobile Phlebotomy MVMG [address] [facility] [place], [place] [address] Mvmg, Gml Mobile Home Draw [address] [facility] [place] [address] 08/25/2024 7:00 AM EST Laboratory Lab Mobile Phlebotomy M[facility]G [address] [place] [address] [place], [place] [address] Mvmg, Gml Mobile Home Draw [address] [facility] [place], [place] [address] 09/01/2024 7:00 AM EST Laboratory Lab Mobile Phlebotomy M[facility] [address] [facility] [place] [address] Mvmg, Gml Mobile Home Draw [address] [place] [address] 09/08/2024 7:00 AM EST Laboratory Lab Mobile Phlebotomy [facility] [address] [place] [address] Mvmg, Gml Mobile Home Draw [address] [place] [address] 2024 7:00 AM EST Laboratory Lab Mobile Phlebotomy M[facility] [address] [place] [address] Mvmg, Gml Mobile Home Draw [address] [place] [address] 09/22/2024 7:00 AM EST Laboratory Lab Mobile Phlebotomy [facility] [address] [place] [address] Mvmg, Gml Mobile Home Draw [address] [place] [address] 09/29/2024 7:00 AM EST Laboratory Lab Mobile Phlebotomy [facility] [address] [place] [address] Mvmg, Gml Mobile Home Draw [address] [facility] [place] [address] 10/06/2024 7:00 AM EST Laboratory Lab Mobile Phlebotomy [facility] [address] [place] [address] Mvmg, Gml Mobile Home Draw [address] [place] [address] Health Maintenance Due Date Last Done Comments [...] D LEVEL ONCE IN A LIFETIME-USE SMARTSET# [id number] Completed 05/31/2020, 11/25/2019, 08/06/2019, Additional history exists [...] Documents on File Type Date Recorded Patient Driver Courier Expl anation POLST 04/27/2024 8:38 AM OOH-DNR Advance Directives and Living Will 04/21/2024 10:30 AM POA and Living Will Healthcare Agents on File Name Relationship Healthcare Agent Relationship Communication Tank Haq Adult Child First Alternate Health Care Agent (per Health Care Power of Blocker And Polisher Gold Wheel document) Jo-Ann Rose Adult Child First Alternate Health Care Agent (per Health Care Power of Blocker And Polisher Gold Wheel document) [email or web address] Care Teams Food Specialist Relationship Specialty Start Date End Date Angie Perez MD 200 [facility] [place] [place] [address] PCP - General Family Medicine 04/07/24 documented as of this encounter
--- OUTSIDE RECORDS SUMMARY | 2024-06-21 01:19 | External Medical Summary | Summary of Care ---
Author Name Unknown Organization [facility] Address [address] [place] [address] Phone [phone] Care Team Providers Care Hvac R Tech Name Role Phone Angie Perez MD Primary Care Provider [phone] Reason for Visit * Reason Onset Date Comments Appointment 05/21/2024 Encounter Details Date Type Department Care Team (Late st Contact Info) Description 05/21/2024 Telephone [facility], [facility] [address] [place] [address] Services, Scheduling [address] [place] [address] Appointment (/) Allergies Active Allergy Reactions Criticality Noted Date Comments Bacitracin Itching 02/20/2018 Ezetimibe 09/19/2008 Shellfish Allergy 03/25/2023 Sulfa Antibiotics 12/24/2017 Tramadol Itching 12/24/2017 documented as of this encounter (statuses as of 05/21/2024) Medications Medication Sig Dispensed Refills Start Date [...] mouth in the morning. Active Saline Nasal [place] 0.65 % Nasal Solution ([place]) Administer 1 [place] into nostril as needed for Congestion. 12/12/2023 [...] by mouth in the morning. 90 Tablet 04/07/2024 Active Mirtazapine 15 MG Oral Tablet [...] by mouth in the morning. 90 Tablet 04/07/2024 Active Potassium Chloride Mimi ER 10 MEQ Oral Tablet Extended Release Take 2 tablets by mouth at lunchtime 180 Tablet 3 04/07/2024 Active Warfarin Sodium 3 MG Oral Tablet (Coumadin)Indications :History of DVT (deep vein thrombosis),Anticoagu lation management encounter Take 1 Tablet by mouth every evening. OR DIRECTED BY [facility] 90 Tablet 3 04/07/2024 Active Menthol-Zinc Oxide 0.44-20.6 % External Ointment (Calmoseptine) Apply thin layer to affected area with each change, up to 4 times daily 113 g 1 04/13/2024 Active Mometasone Furoate 50 MCG/ACT Nasal Suspension Administer 2 Sprays into nostril in the morning. Active documented as of this encounter (statuses as of 05/21/2024) Active Problems Problem Noted Date Diagnosed Date Anticoagulation management encounter 04/07/2024 Hemiplegia and hemiparesis f ollowing cerebral infarction affecting left non-dominant side 02/13/2024 Acute deep vein thrombosis ( DVT) of [...] as of this encounter (statuses as of 05/21/2024) Resolved Problems Problem Noted Date Diagnosed Date [...] as of this encounter (statuses as of 05/21/2024) Immunizations Name Administration Dates Next Due COVID-19 mRNA, LNP-s, No Pre serve, 2-Dose Series (Librelato Implementos Rodoviários) 08/19/2021,12/26/2020,12/05/2020 COVID-19, MRNA-LNP, 23-24, P F, 30 MCG/0.3 mL, 12 YRS AND ABOVE, IM (PFIZER-Comirnaty) 03/05/2024 Covid-19, Mrna, Lnp-s, Pf, B ivalent, [...] (15 years old or older) No 12/25/19 Cognitive Status Response Date of Assessm ent Because of a physical, menta l, or emotional condition, do you have serious difficulty concentrating, remembering, or making decisions? (5 years old or older) No 12/24/2017 documented as of this encounter Miscellaneous Notes * Telephone Encounter - Annette Romeo OSA - 05/21/2024 4:17 PM EDT Per Request via JEFF Matos she advised schedule CHW visit butt wound pic,.... Called lmom to confirm if 05/22 at 11:00am is a good date nad time. documented in this encounter Plan of Treatment Upcoming Encounters Date Type Department Care Team (Late st Contact Info) Description 05/22/2024 11:00 AM EDT Home Visit [facility] [address] [place] [address] Julissa Christopher, Community Health Weigher Operator [address] [place] [address] 05/26/2024 7:00 AM EDT [facility] [address] [place] [address] [facility] [address] [place] [address] 05/27/2024 6:00 AM EDT Anticoagulation [facility], Milli Breen [address] [place] [address] [place] [address] [facility], [address] [place] [address] 05/29/2024 9:00 AM EDT Home Visit [facility], [facility] [address] [place] [address] Gustavo Begum PA-C [address] [place] [address] 06/02/2024 7:00 AM EDT [facility] [address] [place] [address] [facility] [address] [place] [address] 06/09/2024 7:00 AM EDT [facility] [address] [place] [address] [facility] [address] [place] [address] 06/16/2024 7:00 AM EDT [facility] [address] [place] [address] [facility] [address] [facility] [place] [address] 06/23/2024 7:00 AM EDT [facility] [address] [facility] [place], [place] [address] [facility] [address] [place] [address] 06/30/2024 7:00 AM EDT [facility] [address] [facility] [place] [address] [facility] [address] [facility] [place] [address] 07/06/2024 4:00 PM EDT [facility] [address] [facility] [place] [address] Sandra Cullen RN [address] [facility] [place] [address] 07/07/2024 7:00 AM EDT [facility] [address] [place], [place] [address] [facility] [address] [facility] [place], [place] [address] 07/14/2024 7:00 AM EDT [facility] [address] [place], [place] [address] [facility] [address] [facility] [place] [address] 07/21/2024 7:00 AM EDT [facility] [address] [place], [place] [address] [facility] [address] [facility] [place] [address] 07/28/2024 7:00 AM EDT [facility] [address] [place], [place] [address] [facility] [address] [place], [place] [address] 07/29/2024 11:30 AM EDT [facility] Visit [facility], [facility] [address] [place] [address] Sandra Cullen, RN [address] [place] [address] 08/04/2024 7:00 AM EDT [facility] [address] [place] [employer] [address] [place] [address] [facility] [address] [place] [address] 08/10/2024 10:40 AM EST Office Visit [facility] [address] [facility] [place] [address] Angie Perez MD [address] [facility] [place], [place] [address] 08/11/2024 7:00 AM EST [facility] [address] [place], [place] [address] [facility] [address] [place], [place] [address] 08/18/2024 7:00 AM EST [facility] [address] [place], [place] [address] [facility] [address] [place], [place] [address] 08/25/2024 7:00 AM EST [facility] [address] [place], [place] [address] [facility] [address] [place], [place] [address] 09/01/2024 7:00 AM EST [facility] [address] [place], [place] [address] [facility] [address] [facility] [place] [address] 09/08/2024 7:00 AM EST [facility] [address] [place] [address] [facility] [address] [facility] [place] [address] 2024 7:00 AM EST [facility] [address] [facility] [place] [address] [facility] [address] [place] [address] 09/22/2024 7:00 AM EST [facility] [address] [facility] [place] [address] [facility] [address] [facility] [place] [address] 09/29/2024 7:00 AM EST [facility] [address] [place] [address] [facility] [address] [place] [address] 10/06/2024 7:00 AM EST [facility] [address] [facility] [place] [address] [facility] [address] [place] [address] Health Maintenance Due Date Last Done Comments Albumin/Creatinine Ratio 1958 Adult Wellness Visit 09/25/2020 09/25/2019 DTaP,Tdap,and Td Vaccines (2 - Td or Tdap) 10/15/2021 10/15/2011 Depression Monitoring 05/18/2022 05/18/2021 COVID-19 Vaccine ( season) 2024 03/05/2024, 03/05/2024, 07/30/2023, Additional history exists DXA Scan 05/02/2024 05/02/2022, 04/07, 12/03/2018, Additional history exists Influenza Vaccine (FLU shot) (#1) 2024 07/26/2023, 07/23/2022, 09/05/2021, Additional history exists Zoster Vaccines Completed 11/04/2019, 10/08, 05/27/2019, Additional history exists VITAMIN D LEVEL ONCE IN A LIFETIME-USE SMARTSET# [id number] Completed 05/31/2020, 11/25/2019, 08/06/2019, Additional history exists [...] Documents on File Type Date Recorded 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 POLST 04/27/2024 8:38 AM OOH-DNR Advance Directives and Living Will 04/21/2024 10:30 AM POA and Living Will Healthcare Agents on File Name Relationship Healthcare Agent Relationship Communication Tank Haq Adult Child First Alternate Health Care Agent (per Health Care Power of Warehouse Specialist document) Jo-Ann Rose Adult Child First Alternate Health Care Agent (per Health Care Power of Warehouse Specialist document) [email or web address] Care Teams Hvac R Tech Relationship Specialty Start Date End Date Angie Perez MD [address] [facility] [place] [address] PCP - General Family Medicine 04/07/24 documented as of this encounter
--- OUTSIDE RECORDS SUMMARY | 2024-06-21 01:19 | External Medical Summary | Summary of Care ---
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 Active Saline Nasal Pandora 0.65 % Nasal Solution (Vevay) Administer 1 Pandora into nostril as needed for Congestion. 12/12/2023 [...] 04/07/2024 Active Lisinopril 5 MG Oral Tablet (Prinivil)Indication s:HTN, goal below 150/90 Take 1 Tablet by mouth in the morning. 90 Tablet 3 04/07/2024 Active Loratadine 10 MG Oral Tablet (Claritin) Take 1 Tablet by mouth in the morning. 90 Tablet 04/07/2024 Active Mirtazapine 15 MG Oral Tablet (Remeron)Indications [...] the morning. 18 g 5 05/29/2024 Active Mometasone Furoate 50 MCG/ACT Nasal Suspension Administer 2 Sprays into nostril in the morning. Discontinu ed(Refill) documented as of this encounter (statuses as of 06/08/2024) Active Problems Problem Noted Date Diagnosed Date [...] as of this encounter (statuses as of 06/08/2024) Resolved Problems Problem Noted Date Diagnosed Date [...] as of this encounter (statuses as of 06/08/2024) Immunizations Name Administration Dates Next Due COVID-19 mRNA, LNP-s, No Pre serve, 2-Dose Series (Fourteen IP) 08/19/2021,12/26/2020,12/05/2020 COVID-19, MRNA-LNP, 23-24, P F, 30 MCG/0.3 mL, 12 YRS AND ABOVE, IM ([employer]) 03/05/2024 Covid-19, Mrna, Lnp-s, Pf, B ivalent, 30 Mcg, IM, 12 yrs and above (Fourteen IP) 07/30/2023 H1N1 2009 Influenza, IM 08/10/2009 Pneumococcal [...] as of this encounter Progress Notes * Gustavo Begum PA-C - 05/29/2024 9:21 AM EDT Images from the original note were not included. [facility] Home Problem Oriented Charting Provider Visit Date: 05/29/2024 Time: 9:21 AM [facility] Sub-Program: Primary Care at Home Assessment and Plan #1 Senile dementia, uncomplicated (HCC) (Primary) Assessment & Plan: Advanced dementia Daughter providing 29/04 care Previously on hospice care, family could reconsider #2 Hemiplegia and hemiparesis following cerebral infarction affecting left non- dominant side (HCC) Assessment & Plan: H/o CVA #3 Moderate episode of recurrent major depressive disorder (HCC) Assessment & Plan: Continue sertraline and remeron #4 Advanced care planning/counseling discussion Other orders - Mometasone Furoate; Administer 2 Sprays into nostril in the morning. Dispense: 18 g; Refill: 5 Additional Medical Decision Making: Patient with dementia Lives with daughter providing 24 care Essentially bed bound at this time Previously on hospice care, remains DNR, DNI, comfort measures at home On coumadin for recurrent dvt, discussed possible switch to eliquis to eliminate blood draws Will reach out pharmacy to assist with cost and transition if family agrees Recent stge 1 pressure ulcer buttocks has healed, has ASHLEE mattress , stressed importance of skin care Scheduled appointments in the next 60 days: Future Appointments-next 60 days Date/Time Provider Specialty Dept Phone 06/02/2024 7:00 AM [facility] [phone] 06/09/2024 7:00 AM [facility] [phone] 06/09/2024 7:05 AM [facility] [phone] 06/10/2024 6:00 AM [facility] [phone] 06/16/2024 7:00 AM [facility] [phone] 06/23/2024 7:00 AM [facility] [phone] 06/30/2024 7:00 AM [facility] [phone] 07/06/2024 4:00 PM Sandra Cullen RN [facility] [phone] 07/07/2024 7:00 AM [facility] [phone] 07/14/2024 7:00 AM [facility] [phone] 07/21/2024 7:00 AM [facility] [phone] 07/28/2024 7:00 AM [facility] [phone] 07/29/2024 11:30 AM Sandra Cullen RN [facility] [phone] 08/04/2024 7:00 AM [facility] [phone] 08/10/2024 10:40 AM (Arrive by 10:25 AM) Angie Perez MD [facility] [phone] 08/11/2024 7:00 AM [facility] [phone] 08/18/2024 7:00 AM [facility] [phone] 08/25/2024 7:00 AM [facility] [phone] 09/01/2024 7:00 AM [facility] [phone] 09/08/2024 7:00 AM [facility] [phone] 2024 7:00 AM [facility] [phone] 09/22/2024 7:00 AM [facility] [phone] 09/29/2024 7:00 AM [facility] [phone] 10/06/2024 7:00 AM [facility] [phone] A total of 35 minutes was spent face to face (via video-based telemedicine if designated as a telemedicine visit) Subjective Subjective Is this a Telemedicine Visit? No, this is an Home Visit. Reason For [facility] Visit: Enrollment Current Concerns: Analy Haq is a 83 year old female seen today for a [facility] provider visit. PMH includes dementia, h/o CVA ,hemiplegia, depression, HTN Today's concerns are: Patient living with daughter, daughter present for exam Dementia and requires 29/04 care Majority of ros provided by daughter Family denies any concerns Patient essentially bed bound Additional Objective Objective There were no vitals filed for this visit. Last Weights: Wt Readings from Last 3 Encounters: 01/08/24 52.2 kg (115 lb 1.6 oz) 12/24/23 51.6 kg (113 lb 12.8 oz) 11/27/23 50.8 kg (112 lb) Last BPs: BP Readings from Last 4 Encounters: 04/14/24 136/72 04/07/24 108/70 01/08/24 173/83 12/24/23 130/70 General: alert, healthy, and no distress Neuro: alert & oriented x 2 with fluent speech Heart: regular rate & rhythm and no murmur Lungs: lungs clear to auscultation,no wheeze, no rales, no rhonchi Abdomen: abdomen soft, non-tender, and normal bowel sounds Ext: Normal extremities without edema Lab Review: I have reviewed the following results: Imaging results in the last 6 months No imaging results in the last 6 months BMP results Recent Labs Units 04/14/24 0805 01/09/24 0545 12/11/23 0558 03/29/23 0518 SODIUM - [facility] mmol/L 140 -- 141 143 POTASSIUM - [facility] mmol/L 4.4 4.0 4.4 4.1 CHLORIDE - [facility] mmol/L 107 -- 107 109* CO2 - [facility] mmol/L 26 -- 25 26 CREATININE - [facility] mg/dL 0.8 -- 0.8 0.8 BUN - [facility] mg/dL 18 -- 21* 13 Lipid panel resultsNo results for input(s): "CHOL", "LDLCALC", "HDL", "TRIG" in the last 63009 hours. CBC results Recent Labs Units 02/10/24 0545 01/13/24 0550 WBC K/uL 7.02 7.62 HGB g/dL 10.5* 9.9* HCT % 34.0* 32.5* PLT K/uL 223 379 Medication Review "Bottles Out" medication review performed today and medication list in EMR updated Gustavo Begum PA-C 9:21 AM *Communication sent to PCP (via [facility]ofax if non[facility]), [facility] Care Team members,relevant Specialty Care Physicians* documented in this encounter Miscellaneous Notes * ACP (Advance Care Planning) - Gustavo Begum PA-C - 06/08/2024 10:31 AM EDT Patient-centered Communication 05/29/2024 The patient/surrogate voluntarily agreed to participate in advance care planning discussion. They were advised that this is a separate service which may incur out of pocket cost in the form of copayment and/or deductibles. Location: Home Individual(s) present for conversation: Patient and Daughter(s) Decisions Synopsis SmartLink Most Recent Value Past ~10 years 06/08/2024 10:30 Decisions CPR decision: Declines CPR 06/08/2024 Declines CPR Intubation/Mechanical Ventilation decision: Declines Intubation/mechanical ventilation 06/08/2024 Declines Intubation/mechanical ventilation Non-invasive ventilation or BIPAP decision: Declines all non-invasive ventilation 04/14/2024 Antibiotic therapy decision: Declines Antibiotic therapy 04/14/2024 Artificial nutrition decision: Declines Artificial nutrition 04/14/2024 Chemotherapy decision: Declines Chemotherapy 04/14/2024 Radiation therapy decision: Declines Radiation therapy 04/14/2024 Surgical procedure(s) decision: Declines Surgical procedure 04/14/2024 Lab draw decision: Patient chooses Lab draws 04/14/2024 Additional Comments Synopsis [employer] Most Recent Value Past ~10 years 06/08/2024 10:30 Additional Comments Additional Comments: DNR, DNI. POLST and OOH DNR on file 06/08/2024 DNR, DNI. POLST and OOH DNR on file Discerning What Matters Most to the Patient: Synopsis SmartLink Most Recent Value Past ~10 years 06/08/2024 10:29 Discerning What Matters Most to the Patient In their own words, patient's UNDERSTANDING of their illness is: does not contribute due to dementia, family understands progressive nature of dementia 06/08/2024 does not contribute due to dementia, family understands progressive nature of dementia Their current SYMPTOMS include: Tiredness;Lack of appetite;Reduced overall well being 06/08/2024 Tiredness;Lack of appetite;Reduced overall well being The patient's HOPES are: Avoid the detention 06/08/2024 Avoid the detention Source: Content from [employer] Program Aligning Care With What Matters Most: Synopsis [employer] Most Recent Value Past ~10 years 06/08/2024 10:30 Aligning Care With What Matters Most Interventions/Choices: Intubation/mechanical ventilation;CPR 06/08/2024 Intubation/mechanical ventilation;CPR Source: Content from [employer] Program 15 minutes spent in direct [id number] discussion Gustavo valencia PA-C * Assessment & Plan Note - Gustavo Begum PA-C - 06/08/2024 10:27 AM EDT Associated Problem(s): Hemiplegia and hemiparesis following cerebral infarction affecting left non-dominant side (HCC) H/o CVA * Assessment & Plan Note - Gustavo Begum PA-C - 06/08/2024 10:27 AM EDT Associated Problem(s): Moderate episode of recurrent major depressive disorder (HCC) Continue sertraline and remeron * Assessment & Plan Note - Gustavo Begum PA-C - 06/08/2024 10:26 AM EDT Associated Problem(s): Senile dementia, uncomplicated (HCC) Advanced dementia Daughter providing 29/04 care Previously on hospice care, family could reconsider documented in this encounter Plan of Treatment Upcoming Encounters Date Type Department Care Team (Late st Contact Info) Description 06/09/2024 7:05 AM EDT [facility] [address] [place] [address] [facility] [address] [place] [address] 06/09/2024 2:30 PM EDT Scheduled Telephone [facility], [facility] [address] [place] [address] Gustavo Begum PA-C [address] [place] [address] 06/10/2024 6:00 AM EDT [facility], Milli Breen [address] [place] [address] [place] [address] [facility], [address] [place] [address] 06/16/2024 7:00 AM EDT Laboratory [facility] [address] [place] [address] [facility] [address] [place] [address] 06/23/2024 7:00 AM EDT [facility] [address] [place] [address] [facility] [address] [facility] [place] [address] 06/30/2024 7:00 AM EDT [facility] [address] [facility] [place], [place] [address] [facility] [address] [facility] [place] [address] 07/06/2024 4:00 PM EDT [facility] Visit [facility] [place], [facility] [address] Sandra Cullen RN [address] [place] [address] 07/07/2024 7:00 AM EDT Laboratory [facility] [address] [facility] [place], [place] [address] [facility] [address] [facility] [place] [address] 07/14/2024 7:00 AM EDT [facility] [address] [facility] [place], [place] [address] [facility] [address] [facility] [place] [address] 07/21/2024 7:00 AM EDT [facility] [address] [facility] [place] [address] [facility] [address] [facility] [place] [address] 07/28/2024 7:00 AM EDT Laboratory [facility] [address] [facility] [place], [place] [address] [facility] [address] [facility] [place] [address] 07/29/2024 11:30 AM EDT Home Visit [facility] [place], [facility] [address] [facility] [place] [address] Sandra Cullen, RN [address] [place] [address] 08/04/2024 7:00 AM EDT [facility] [address] [facility] [place], [place] [address] [facility] [address] [facility] [place], [place] [address] 08/10/2024 10:40 AM EST Office Visit [facility] [address] [place] [address] Angie Perez MD [address] [place] [address] 08/11/2024 7:00 AM EST [facility] [address] [facility] [place], [place] [address] [facility] [address] [facility] [place], [place] [address] 08/18/2024 7:00 AM EST Laboratory [facility] [address] [facility] [place], [place] [address] [facility] [address] [facility] [place], [place] [address] 08/25/2024 7:00 AM EST [facility] [address] [facility] [place], [place] [address] [facility] [address] [facility] [place], [place] [address] 09/01/2024 7:00 AM EST [facility] [address] [facility] [place], [place] [address] [facility] [address] [facility] [place], [place] [address] 09/08/2024 7:00 AM EST [facility] [address] [facility] [place], [place] [address] [facility] [address] [place] [address] 2024 7:00 AM EST [facility] [address] [place] [address] [facility] [address] [place] [address] 09/22/2024 7:00 AM EST [facility] [address] [place] [address] [facility] [address] [facility] [place] [address] 09/29/2024 7:00 AM EST [facility] [address] [place] [address] [facility] [address] [place] [address] 10/06/2024 7:00 AM EST [facility] [address] [place] [address] [facility] [address] [place] [address] Health Maintenance Due Date Last Done Comments [...] D LEVEL ONCE IN A LIFETIME-USE SMARTSET# [id number] Completed 05/31/2020, 11/25/2019, 08/06/2019, Additional history exists [...] dementia, uncomplicated (HCC)- Primary Senile dementia, uncomplicated Hemiplegia and hemiparesis following cerebral infarction affecting left non- dominant side (HCC) Moderate episode of recurrent major depressive disorder (HCC) Advanced care planning/counseling discussion Other specified counseling documented in this encounter Advance Directives Documents on File Type Date Recorded 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 04/27/2024 8:38 AM OOH-DNR Advance Directives and Living Will 04/21/2024 10:30 AM POA and Living Will Healthcare Agents on File Name Relationship Healthcare Agent Relationship Communication Tank Haq Adult Child First Alternate Health Care Agent (per Health Care Power of [employer] document) Jo-Ann Rose Adult Child First Alternate Health Care Agent (per Health Care Power of [employer] document) [email or web address] Care Teams Nocturnist Physician Relationship Specialty Start Date End Date Angie Perez MD [address] [place] [address] PCP - General Family Medicine 04/07/24 documented as of this encounter
--- OUTSIDE RECORDS SUMMARY | 2024-06-21 01:19 | External Medical Summary | Summary of Care ---
Author Name Unknown Organization [facility] Address [address] [place] [address] Phone [phone] Care Team Providers Care Balance Bridge Assembler Name Role Phone Angie Perez MD Primary Care Provider [phone] Reason for Visit * Reason Comments Dosage Adjustment Via Phone (anticoag Cl inic) Encounter Details Date Type Department Care Team (Late st Contact Info) Description 05/29/2024 6:45 AM EDT Anticoagulation [facility], Milli Breen [address] [place] [address] [place] [address] [place] [address] Anticoagulation management encounter* Allergies Active Allergy Reactions Criticality Noted Date Comments Bacitracin Itching 02/20/2018 Ezetimibe 09/19/2008 Shellfish Allergy 03/25/2023 Sulfa Antibiotics 12/24/2017 Tramadol Itching 12/24/2017 documented as of this encounter (statuses as of 05/29/2024) Medications Medication Sig Dispensed Refills Start Date [...] mouth in the morning. Active Saline Nasal [place] 0.65 % Nasal Solution ([place]) Administer 1 [place] into nostril as needed for Congestion. 12/12/2023 [...] as of this encounter (statuses as of 05/29/2024) Active Problems Problem Noted Date Diagnosed Date [...] as of this encounter (statuses as of 05/29/2024) Resolved Problems Problem Noted Date Diagnosed Date [...] as of this encounter (statuses as of 05/29/2024) Immunizations Name Administration Dates Next Due COVID-19 mRNA, LNP-s, No Pre serve, 2-Dose Series ([employer]) 08/19/2021,12/26/2020,12/05/2020 COVID-19, MRNA-LNP, 23-24, P F, 30 MCG/0.3 mL, 12 YRS AND ABOVE, IM ([facility]) 03/05/2024 Covid-19, Mrna, Lnp-s, Pf, B ivalent, [...] this encounter Progress Notes * Julissa Jean, [facility] - 05/29/2024 10:09 AM EDT Provider reached out regarding potential transition to Eliquis via [employer]. I reached out to her plan for copays: 30 day $47 90 day (via [place]) $70.50 Provider will have discussion with patient, reach out if affordable and proceeding with transtion. Continue coumadin as planned until we hear back. Julissa Jean Rph, Pharm.D. Clinical Pharmacist [facility] Services ([facility]) [phone] 05/29/2024,3:47 PM documented in this encounter Plan of Treatment Upcoming Encounters Date Type Department Care Team (Late st Contact Info) Description 06/02/2024 7:00 AM EDT Laboratory Lab [facility] [address] [place] [address] M[facility], [facility] Draw [address] [place] [address] 06/09/2024 7:00 AM EDT Laboratory [facility] [address] [place] [address] [facility], [facility] Draw [address] [place] [address] 06/09/2024 7:05 AM EDT Laboratory [facility] [address] [place], [place] [address] Mvmg, Gml [facility] Home Draw [address] [place] [address] 06/10/2024 6:00 AM EDT Anticoagulation [facility], Milli Breen [address] [place] [address] [place] [address] [facility], [address] [place] [address] 06/16/2024 7:00 AM EDT Laboratory Lab [facility]bot[facility] [address] [place] [address] Mvmg, Gml Mobile Home Draw [address] [place] [address] 06/23/2024 7:00 AM EDT Laboratory [facility] [address] [place] [address] Mvmg, Gml Mobile Home Draw [address] [facility] [place] [address] 06/30/2024 7:00 AM EDT Laboratory [facility] [address] [facility] [place] [address] Mvmg, Gml Mobile Home Draw [address] [facility] [place] [address] 07/06/2024 4:00 PM EDT Home Visit [facility], [facility] [address] [facility] [place] [address] Sandra Cullen RN 132 [facility] [place] [address] 07/07/2024 7:00 AM EDT Laboratory Lab [facility] Ph[facility]bot[facility] [address] [facility] [place], [place] [address] Mvmg, Gml Mobile Home Draw [address] [place] [address] 07/14/2024 7:00 AM EDT Laboratory Lab [facility] Phlebot[facility] [address] [facility] [place], [place] [address] Mvmg, Gml Mobile Home Draw [address] [facility] [place] [address] 07/21/2024 7:00 AM EDT Laboratory [facility]bot[facility] [address] [facility] [place] [address] Mvmg, Gml Mobile Home Draw [address] [place] [address] 07/28/2024 7:00 AM EDT Laboratory [facility] Phlebot[facility] [address] [facility] [place] [address] Mvmg, Gml Mobile Home Draw [address] [facility] [place] [address] 07/29/2024 11:30 AM EDT [facility] Visit [facility], [facility] [address] [place] [address] Sandra Cullen, RN [address] [place] [address] 08/04/2024 7:00 AM EDT Laboratory [facility] Ph[facility]bot[facility] [address] [place] [address] Mvmg, Gml Mobile Home Draw [address] [place], [place] [address] 08/10/2024 10:40 AM EST Office Visit [facility] [address] [facility] [place], [place] [address] Angie Perez MD [address] [facility] [place], [place] [address] 08/11/2024 7:00 AM EST Laboratory [facility] Phlebot[facility] [address] [place], [place] [address] Mvmg, Gml Mobile Home Draw [address] [place], [place] [address] 08/18/2024 7:00 AM EST Laboratory [facility] [address] [place], [place] [address] Mvmg, Gml Mobile Home Draw [address] [place], [place] [address] 08/25/2024 7:00 AM EST Laboratory Lab [facility] Phlebotomy [facility] [address] [place], [place] [address] Mvmg, Gml Mobile Home Draw [address] [facility] [place], [place] [address] 09/01/2024 7:00 AM EST Laboratory [facility]bot[facility] [address] [place], [place] [address] Mvmg, Gml Mobile Home Draw [address] [place], [place] [address] 09/08/2024 7:00 AM EST Laboratory [facility]bot[facility] [address] [place] [address] Mvmg, Gml [facility] Draw [address] [place] [address] 2024 7:00 AM EST Laboratory [facility] [address] [place] [address] Mvmg, Gml [facility] Draw [address] [place] [address] 09/22/2024 7:00 AM EST Laboratory [facility] Phlebot[facility] [address] [place] [address] Mvmg, Gml Mobile Home Draw [address] [place] [address] 09/29/2024 7:00 AM EST Laboratory Lab [facility] Phlebotomy [facility] [address] [place] [address] Mvmg, Gml Mobile Home Draw [address] [place] [address] 10/06/2024 7:00 AM EST Laboratory Lab Mobile Phlebotomy [facility] [address] [place] [address] Mvmg, Gml Mobile Home Draw [address] [facility] [place] [address] Health Maintenance Due Date Last Done Comments [...] D LEVEL ONCE IN A LIFETIME-USE SMARTSET# [id number] Completed 05/31/2020, 11/25/2019, 08/06/2019, Additional history exists [...] Documents on File Type Date Recorded 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 POLST 04/27/2024 8:38 AM OOH-DNR Advance Directives and Living Will 04/21/2024 10:30 AM POA and Living Will Healthcare Agents on File Name Relationship Healthcare Agent Relationship Communication Tank Severino Adult Child First Alternate Health Care Agent (per Health Care Power of Charge Preparation Technician document) Jo-Ann Rose Adult Child First Alternate Health Care Agent (per Health Care Power of Charge Preparation Technician document) [email or web address] Minutes Care Teams Balance Bridge Assembler Relationship Specialty Start Date End Date Angie Perez MD [address] [place] [address] PCP - General Family Medicine 04/07/24 documented as of this encounter
--- OUTSIDE RECORDS SUMMARY | 2024-06-21 01:19 | External Medical Summary ---
Author Name Unknown Address Unknown Organization [facility] [place] [address] Laboratory Report Ordering Provider Test Date Status IANRAYSA 05/26/2024 08:25:00 Final Standing order for pt/inr. < br/>Please draw pt/inr every 1 to 4 weeks as requested
Results to [facility]

Warfarin Therapy
INR: 2.0-3.0 conventional anticoagulation
INR: 2.5-3.5 high intensity anticoagulation Observation Date Value Abnormality Reference (Units ) Status PT 05/26/2024 08:25:00 26.0 Above high normal 11 .6-15.2 (seconds) Final INR 05/26/2024 08:25:00 2.4 Above high normal 0. 8-1.2 Final Performing Location [facility] [place] [address]
--- OUTSIDE RECORDS SUMMARY | 2024-06-21 01:19 | External Medical Summary | Summary of Care ---
Author Name Unknown Organization [facility] Address [address] [place] [address] Phone [phone] Care Team Providers Care Hydroelectric Production Manager Name Role Phone Angie Perez MD Primary Care Provider [phone] Reason for Visit * Reason Onset Date Comments Appointment 05/22/2024 Encounter Details Date Type Department Care Team (Late st Contact Info) Description 05/22/2024 Telephone [facility] [place] [address] [place] [address] Services, Scheduling [address] [place] [address] Appointment Allergies Active Allergy Reactions Criticality Noted Date Comments Bacitracin Itching 02/20/2018 Ezetimibe 09/19/2008 Shellfish Allergy 03/25/2023 Sulfa Antibiotics 12/24/2017 Tramadol Itching 12/24/2017 documented as of this encounter (statuses as of 05/22/2024) Medications Medication Sig Dispensed Refills Start Date [...] mouth in the morning. Active Saline Nasal [place] 0.65 % Nasal Solution ([place]) Administer 1 [place] into nostril as needed for Congestion. 12/12/2023 [...] [facility] 90 Tablet 3 04/07/2024 Active Mometasone Furoate 50 MCG/ACT Nasal Suspension Administer 2 Sprays into nostril in the morning. Active Calmoseptine 0.44-20.6 % External Ointment (Menthol-Zinc Oxide) Apply thin layer to affected area with each change, up to 4 times daily 113 g 1 05/22/2024 Active documented as of this encounter (statuses as of 05/22/2024) Active Problems Problem Noted Date Diagnosed Date [...] as of this encounter (statuses as of 05/22/2024) Resolved Problems Problem Noted Date Diagnosed Date [...] as of this encounter (statuses as of 05/22/2024) Immunizations Name Administration Dates Next Due COVID-19 mRNA, LNP-s, No Pre serve, 2-Dose Series ([employer]) 08/19/2021,12/26/2020,12/05/2020 COVID-19, MRNA-LNP, 23-24, P F, 30 [...] encounter Miscellaneous Notes * Telephone Encounter - Akil Morataya OSA - 05/22/2024 10:11 AM EDT PC from pts dtr stating she received a message about an appt today for her mom. Asked about appt details and was happy appt was scheduled. Appt confirmed. documented in this encounter Plan of Treatment Upcoming Encounters Date Type Department Care Team (Late st Contact Info) Description 05/22/2024 11:00 AM EDT Home Visit [facility] [address] [facility] [place] [address] Julissa Christopher, [facility] Tire Building Supervisor [address] [facility] [place] [address] 05/26/2024 7:00 AM EDT Laboratory Lab [facility] Phlebot[facility] [address] [place] [address] Mvmg, Gml Mobile Home Draw [address] [place] [address] 05/27/2024 6:00 AM EDT Anticoagulation Central[facility] Clinical Pharmacy Services, Milli Breen [address] [place] [address] [place] [address] [facility], [address] [place] [address] 05/29/2024 9:00 AM EDT Home Visit [facility], [facility] [address] [place] [address] Gustavo Begum PA-C [address] [place] [address] 06/02/2024 7:00 AM EDT Laboratory [facility] [address] [place] [address] Mvmg, Gml Mobile Home Draw [address] [place] [address] 06/09/2024 7:00 AM EDT Laboratory [facility] Phle[facility] [address] [place] [address] Mvmg, Gml Mobile Home Draw [address] [place] [address] 06/16/2024 7:00 AM EDT Laboratory Lab [facility] Phlebot[facility] [address] [place] [address] Mvmg, Gml Mobile Home Draw [address] [facility] [place] [address] 06/23/2024 7:00 AM EDT Laboratory Lab [facility] Phlebotomy [facility] [address] [facility] [place] [address] Mvmg, Gml Mobile Home Draw [address] [facility] [place] [address] 06/30/2024 7:00 AM EDT Laboratory Lab Mobile Phlebotomy [facility] [address] [facility] [place] [address] Mvmg, Gml Mobile Home Draw [address] [facility] [place] [address] 07/06/2024 4:00 PM EDT [facility] 132 [facility] [place] [address] Sandra Cullen RN 132 [facility] [address] 07/07/2024 7:00 AM EDT Laboratory Lab [facility] Phlebotomy [facility] [address] [facility] [place] [address] Mvmg, Gml Mobile Home Draw [address] [facility] [place] [address] 07/14/2024 7:00 AM EDT Laboratory Lab [facility] Phlebotomy [facility] [address] [facility] [place] [address] Mvmg, Gml Mobile Home Draw [address] [facility] [place] [address] 07/21/2024 7:00 AM EDT Laboratory Lab [facility] Phlebot[facility] [address] [facility] [place] [address] Mvmg, Gml Mobile Home Draw [address] [facility] [place] [address] 07/28/2024 7:00 AM EDT Laboratory Lab [facility] Phlebotomy [facility] [address] [facility] [place] [address] Mvmg, Gml Mobile Home Draw [address] [place], [place] [address] 07/29/2024 11:30 AM EDT Home Visit [facility] [place], [facility] [address] [place] [address] Sandra Cullen, RN [address] [place] [address] 08/04/2024 7:00 AM EDT Laboratory Lab [facility] Phlebot[facility] [address] [place], [place] [address] Mvmg, Gml Mobile Home Draw [address] [place], [place] [address] 08/10/2024 10:40 AM EST Office Visit [facility] 200 [facility] [place] [address] Angie Perez MD 200 [facility], [place] [address] 08/11/2024 7:00 AM EST Laboratory [facility]bot[facility] [address] [place], [place] [address] Mvmg, Gml Mobile Home Draw [address] [place], [place] [address] 08/18/2024 7:00 AM EST Laboratory [facility] Phlebot[facility] [address] [place], [place] [address] Mvmg, Gml Mobile Home Draw [address] [place], [place] [address] 08/25/2024 7:00 AM EST Laboratory [facility] Phlebot[facility] [address] [place], [place] [address] Mvmg, Gml Mobile Home Draw [address] [place], [place] [address] 09/01/2024 7:00 AM EST Laboratory Lab [facility] Phlebotomy [facility] [address] [place], [place] [address] Mvmg, Gml Mobile Home Draw [address] [facility] [place] [address] 09/08/2024 7:00 AM EST Laboratory Lab Mobile Phlebotomy [facility] [address] [facility] [place] [address] Mvmg, Gml Mobile Home Draw [address] [facility] [place] [address] 2024 7:00 AM EST Laboratory Lab Mobile Phlebotomy [facility] [address] [facility] [place] [address] Mvmg, Gml Mobile Home Draw [address] [place] [address] 09/22/2024 7:00 AM EST Laboratory Lab [facility] Phlebotomy [facility] [address] [facility] [place] [address] Mvmg, Gml Mobile Home Draw [address] [facility] [place] [address] 09/29/2024 7:00 AM EST Laboratory [facility] Phlebot[facility] [address] [place] [address] Mvmg, Gml Mobile Home Draw [address] [place] [address] 10/06/2024 7:00 AM EST Laboratory Lab [facility] Phlebotomy [facility] [address] [place] [address] Mvmg, Gml Mobile Home Draw [address] [place] [address] Health Maintenance Due Date Last Done Comments [...] D LEVEL ONCE IN A LIFETIME-USE SMARTSET# [id number] Completed 05/31/2020, 11/25/2019, 08/06/2019, Additional history exists [...] Documents on File Type Date Recorded 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 Medical 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 POLST 04/27/2024 8:38 AM OOH-DNR Advance Directives and Living Will 04/21/2024 10:30 AM POA and Living Will Healthcare Agents on File Name Relationship Healthcare Agent Relationship Communication Tank Haq Adult Child First Alternate Health Care Agent (per Health Care Power of Machine Veneer Repairer document) Jo-Ann Rose Adult Child First Alternate Health Care Agent (per Health Care Power of Machine Veneer Repairer document) [email or web address] - A First [employer] Its Kind [email or web address] Care Teams Hydroelectric Production Manager Relationship Specialty Start Date End Date Angie Perez MD [address] [place] [address] PCP - General Family Medicine 04/07/24 documented as of this encounter
--- OUTSIDE RECORDS SUMMARY | 2024-06-21 01:19 | External Medical Summary | Summary of Care ---
Author Name Unknown Organization [facility] Address [address] [place] [address] Phone [phone] Care Team Providers Care Tare Man Name Role Phone Angie Perez MD Primary Care Provider [phone] Reason for Visit * Reason Comments Dosage Adjustment Via Phone (anticoag Cl inic) Encounter Details Date Type Department Care Team (Late st Contact Info) Description 05/27/2024 6:00 AM EDT Anticoagulation Centralized Clinical Pharmacy Services, Milli Breen [address] [place] [address] [place] [address] [place] [address] Anticoagulation management encounter* Allergies Active Allergy Reactions Criticality Noted Date Comments Bacitracin Itching 02/20/2018 Ezetimibe 09/19/2008 Shellfish Allergy 03/25/2023 Sulfa Antibiotics 12/24/2017 Tramadol Itching 12/24/2017 documented as of this encounter (statuses as of 05/27/2024) Medications Medication Sig Dispensed Refills Start Date [...] mouth in the morning. Active Saline Nasal Jayton 0.65 % Nasal Solution (Towner) Administer 1 Jay[place] into nostril as needed for Congestion. 12/12/2023 [...] as of this encounter (statuses as of 05/27/2024) Active Problems Problem Noted Date Diagnosed Date [...] as of this encounter (statuses as of 05/27/2024) Resolved Problems Problem Noted Date Diagnosed Date [...] as of this encounter (statuses as of 05/27/2024) Immunizations Name Administration Dates Next Due COVID-19 mRNA, LNP-s, No Pre serve, 2-Dose Series (Clever) 08/19/2021,12/26/2020,12/05/2020 COVID-19, MRNA-LNP, 23-24, P F, 30 MCG/0.3 mL, 12 YRS AND ABOVE, IM ([employer]) 03/05/2024 Covid-19, Mrna, Lnp-s, Pf, B ivalent, [...] as of this encounter Progress Notes * Shea Horne, c developer - 05/27/2024 8:34 AM EDT Contacts Type Contact Phone/Fax 05/27/2024 08:32 AM EDT Phone (Outgoing) Jo-Ann Rose (Emergency Contact) [phone] (H) Left Message Subjective Advised patient to contact Anticoagulation Clinic if any unusual bruising or bleeding, recent illness, changes in medication, or questions/concerns. PT/INR results, Coumadin dose instructions, and next PT/INR date communicated as noted by Pharmacist: Yes THAD Stevenson 05/27/2024, 8:34 AM * Julissa Jean RPh - 05/27/2024 8:20 AM EDT Coumadin Clinic (region specific) Objective Current Warfarin Dose As of 05/27/2024 Warfarin maintenance plan: 5 mg (1 mg x 5) every Mon, Wed, Fri; 3 mg (1 mg x 3) all other days INR Result As of 05/27/2024 INR goal: 2.0-3.0 INR used for dosin.4 (05/26/2024) Assessment & Plan Warfarin Plan As of 05/27/2024 Full warfarin instructions: 5 mg every Mon, Wed, Fri; 3 mg all other days No change documented: Julissa Jean RPh Next INR check: 06/09/2024 Repeat PT/INR in 2 week(s) Weekly dose: not changed Additional Dosing Information: Description [facility] Tech to contact patient with dose instructions as noted. Julissa Jean RPh 05/27/2024, 8:20 AM documented in this encounter Plan of Treatment Upcoming Encounters Date Type Department Care Team (Late st Contact Info) Description 05/29/2024 9:00 AM EDT Home Visit [facility] 132 [facility] [place] [address] Gustavo Begum PA-C [address] [place] [address] 06/02/2024 7:00 AM EDT [facility] [address] [place], [place] [address] M[facility], [facility] [address] [facility] [address] [place], [place] [address] 06/09/2024 7:00 AM EDT [facility] [address] [place], [place] [address] M[facility], [facility] [address] [facility] [place] [address] 06/10/2024 6:00 AM EDT Anticoagulation Centralized Clinical Pharmacy Services, Milli Breen [address] [place] [address] [place] [address] [place], [address] [place] [address] 06/16/2024 7:00 AM EDT [facility] [address] [place] [address] Mvmg, [facility] Draw [address] [place], [place] [address] 06/23/2024 7:00 AM EDT [facility] [address] [place], [place] [address] Mvmg, [facility] Draw 2520 [facility] [place], [place] [address] 06/30/2024 7:00 AM EDT [facility] [address] [place], [place] [address] Mvmg, [facility] Draw [address] [place] [address] 07/06/2024 4:00 PM EDT [facility] Visit [facility], [facility] 132 [place] [address] Sandra Cullen RN 132 [place] [address] 07/07/2024 7:00 AM EDT Laboratory [facility] [address] [address] Mvmg, [facility] Draw [address] [place] [address] 07/14/2024 7:00 AM EDT Laboratory [facility] [address] [place] [address] Mvmg, G[facility] Draw [address] [place] [address] 07/21/2024 7:00 AM EDT Laboratory [facility] [address] [place] [address] Mvmg, [facility] Draw 25[address] [facility] [place] [address] 07/28/2024 7:00 AM EDT Laboratory [facility]bot[facility] [address] [place], [place] [address] Mvmg, [facility] Draw [address] [facility] [place] [address] 07/29/2024 11:30 AM EDT Home Visit [facility] 132 [facility] [place] [address] Sandra Cullen, RN [address] [place] [address] 08/04/2024 7:00 AM EDT Laboratory [facility]bot[facility] [address] [place], [place] [address] Mvmg, G[facility] Draw 25[address] [facility] [place] [address] 08/10/2024 10:40 AM EST Office Visit [facility] [address] [facility] [place] [address] Angie Perez MD [address] [facility] [place] [address] 08/11/2024 7:00 AM EST Laboratory [facility]bot[facility] 2520 [facility] [place] [address] Mvmg, Gml [facility] Draw 25[address] [facility] [place] [address] 08/18/2024 7:00 AM EST Laboratory [facility] Phlebot[facility] [address] [facility] [place] [address] Mvmg, Gml [facility] Draw 2520 [facility] [place] [address] 08/25/2024 7:00 AM EST Laboratory [facility] Phlebot[facility] [address] [facility] [place] [address] Mvmg, Gml [facility] Home Draw [address] [facility] [place] [address] 09/01/2024 7:00 AM EST Laboratory [facility] Phlebotomy [facility] [address] [facility] [place] [address] Mvmg, Gml [facility] Draw [address] [facility] [place] [address] 09/08/2024 7:00 AM EST Laboratory [facility] Phlebotomy [facility] [address] [facility] [place] [address] Mvmg, Gml [facility] Home Draw [address] [facility] [place] [address] 2024 7:00 AM EST Laboratory [facility] Phlebotomy [facility] [address] [facility] [place] [address] Mvmg, Gml [facility] Draw 25[address] [facility] [place] [address] 09/22/2024 7:00 AM EST Laboratory [facility] Phlebotomy [facility] [address] [place] [address] Mvmg, Gml Mobile Home Draw [address]20 [facility] [place] [address] 09/29/2024 7:00 AM EST Laboratory [facility] Phlebot[facility] [address] [place] [address] Mvmg, Gml [facility] Draw [address] [place] [address] 10/06/2024 7:00 AM EST Laboratory [facility] Phlebotomy [facility] [address] [place] [address] Mvmg, [facility] Draw [address] [place] [address] Health Maintenance Due Date Last Done Comments [...] D LEVEL ONCE IN A LIFETIME-USE SMARTSET# [id number] Completed 05/31/2020, 11/25/2019, 08/06/2019, Additional history exists [...] Documents on File Type Date Recorded 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 POLST 04/27/2024 8:38 AM OOH-DNR Advance Directives and Living Will 04/21/2024 10:30 AM POA and Living Will Healthcare Agents on File Name Relationship Healthcare Agent Relationship Communication Tank Haq Adult Child First Alternate Health Care Agent (per Health Care Power of Bean Sprout Grower document) Jo-Ann Rose Adult Child First Alternate Health Care Agent (per Health Care Power of Bean Sprout Grower document) [email or web address] Care Teams Tare Man Relationship Specialty Start Date End Date Angie Perez MD 200 [place] [address] PCP - General Family Medicine 04/07/24 documented as of this encounter
--- OUTSIDE RECORDS SUMMARY | 2024-06-21 01:19 | External Medical Summary | Summary of Care ---
Author Name Unknown Organization [facility] Address [address] [place] [address] Phone [phone] Care Team Providers Care Box Stamper Name Role Phone Angie Perez MD Primary Care Provider [phone] Reason for Visit * Reason Onset Date Comments [facility]: Maintenance 05/21/2024 Encounter Details Date Type Department Care Team (Late st Contact Info) Description 05/21/2024 Telephone [facility], [facility] [address] [place] [address] [facility], Nurse [facility] [address] [place] [address] [facility]: Maintenance Allergies Active Allergy Reactions Criticality Noted Date [...] mouth in the morning. Active Saline Nasal Apex 0.65 % Nasal Solution (C[place]o) Administer 1 Apex into nostril as needed for Congestion. 12/12/2023 [...] tablet by mouth at bedtime. 45 Tablet 04/07/2024 Active Omeprazole 20 MG Oral Capsule Delayed Release (PriLOSEC)Indications :Gastroesophageal reflux disease without esophagitis Take 1 Capsule by mouth in the morning. 90 Capsule 04/07/2024 Active Sertraline HCl 25 MG Oral [...] mRNA, LNP-s, No Pre serve, 2-Dose Series ([employer]) 08/19/2021,12/26/2020,12/05/2020 COVID-19, MRNA-LNP, 23-24, P F, 30 MCG/0.3 mL, 12 YRS AND ABOVE, IM ([facility]) 03/05/2024 Covid-19, Mrna, Lnp-s, Pf, B [...] encounter Miscellaneous Notes * Telephone Encounter - Mag Matos RN - 05/21/2024 4:18 PM EDT TT received from [facility] that Julissa christopher CHA scheduled to see patiemt tomorrow to obtain pic of buttocks wound Mag Matos RN, BSN [facility] plug drill operatorBranch Associate documented in this encounter Plan of Treatment Upcoming Encounters Date Type Department Care Team (Late st Contact Info) Description 05/22/2024 11:00 AM EDT Home Visit [facility] [address] [place] [address] Julissa Christopher, [facility] Sorter [address] [place] [address] 05/26/2024 7:00 AM EDT Laboratory [facility] Phlebot[facility] [address] [place] [address] Mvmg, [facility] Draw [address] [place] [address] 05/27/2024 6:00 AM EDT Anticoagulation Centralized Clinical Pharmacy Services, Milli Breen [address] [place] [address] [place] [address] [facility], [address] [place] [address] 05/29/2024 9:00 AM EDT [facility], [facility] [place] [address] Gustavo Begum PA-C [address] [facility] [place] [address] 06/02/2024 7:00 AM EDT Laboratory [facility] Phlebotomy [facility] [address] [place] [address] Mvmg, [facility] Draw [address] [place] [address] 06/09/2024 7:00 AM EDT Laboratory [facility] Phlebot[facility] [address] [place] [address] Mvmg, G[facility] Draw [address] [place] [address] 06/16/2024 7:00 AM EDT Laboratory [facility] Phlebot[facility] [address] [place] [address] Mvmg, Gml [facility] Draw [address] [place] [address] 06/23/2024 7:00 AM EDT Laboratory [facility] Phlebotomy [facility] [address] [place] [address] Mvmg, Gml [facility] Draw [address] [place] [address] 06/30/2024 7:00 AM EDT Laboratory [facility] Phlebot[facility] [address] [place] [address] Mvmg, Gml [facility] Home Draw [address] [place] [address] 07/06/2024 4:00 PM EDT [facility] 132 [facility] [place] [address] Sandra Cullen RN [address] [place] [address] 07/07/2024 7:00 AM EDT Laboratory Lab Mobile Phlebotomy [facility] [address] [place] [address] Mvmg, Gml [facility] Draw 25[address] [place] [address] 07/14/2024 7:00 AM EDT Laboratory [facility] Phlebotomy [facility] [address] [place] [address] Mvmg, Gml [facility] Home Draw [address] [place] [address] 07/21/2024 7:00 AM EDT Laboratory [facility] Phlebotomy [facility] [address] [place] [address] Mvmg, Gml [facility] Draw 2520 [place] [address] 07/28/2024 7:00 AM EDT Laboratory Lab Mobile Phlebotomy [facility] [address] [place] [address] Mvmg, Gml [facility] Draw [address] [place] [address] 07/29/2024 11:30 AM EDT [facility] Visit [facility] [address] [place] [address] Sandra Cullen RN [address] [place] [address] 08/04/2024 7:00 AM EDT Laboratory [facility] Mobile Phlebotomy [facility] [address] [place] [address] Mvmg, Gml [facility] Draw [address] [place] [address] [place] [address] 08/10/2024 10:40 AM EST Office Visit [facility] 200 [facility] [place], [place] [address] Angie Perez MD 200 [facility] [place], [place] [address] 08/11/2024 7:00 AM EST Laboratory [facility] Phlebot[facility] [address] [place] [address] Mvmg, Gml [facility] Draw [address] [facility] [place] [address] 08/18/2024 7:00 AM EST Laboratory [facility] Phlebotomy [facility] [address] [place] [address] Mvmg, [facility] Draw [address] [place] [address] [place], [place] [address] 08/25/2024 7:00 AM EST Laboratory [facility] Phlebot[facility] [address] [place], [place] [address] Mvmg, Gml Mobile Home Draw [address] [place] [address] 09/01/2024 7:00 AM EST Laboratory [facility] Phlebotomy [facility] [address] [place] [address] Mvmg, Gml Mobile Home Draw [address] [place] [address] 09/08/2024 7:00 AM EST Laboratory [facility] Phlebotomy [facility] [address] [place] [address] Mvmg, Gml [facility] Draw 2520 [place] [address] 2024 7:00 AM EST Laboratory [facility] Phlebotomy [facility] [address] [place] [address] Mvmg, Gml [facility] Draw 25[address] [place] [address] 09/22/2024 7:00 AM EST Laboratory Lab Mobile Phlebotomy [facility] [address] [place] [address] Mvmg, Gml Mobile Home Draw 25[address] [place] [address] 09/29/2024 7:00 AM EST Laboratory [facility] Phlebotomy [facility] [address] [place] [address] Mvmg, Gml Mobile Home Draw 25[address] [place] [address] 10/06/2024 7:00 AM EST Laboratory [facility] Phlebotomy [facility] [address] [place] [address] Mvmg, Gml Mobile Home Draw [address] [place] [address] Health Maintenance Due Date Last Done Comments [...] D LEVEL ONCE IN A LIFETIME-USE SMARTSET# [id number] Completed 05/31/2020, 11/25/2019, 08/06/2019, Additional history exists [...] Documents on File Type Date Recorded 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 POLST 04/27/2024 8:38 AM OOH-DNR Advance Directives and Living Will 04/21/2024 10:30 AM POA and Living Will Healthcare Agents on File Name Relationship Healthcare Agent Relationship Communication Tank Haq Adult Child First Alternate Health Care Agent (per Health Care Power of Maintenance Data Analyst document) oJ-Ann Rose Adult Child First Alternate Health Care Agent (per Health Care Power of Maintenance Data Analyst document) [email or web address] Care Teams Box Stamper Relationship Specialty Start Date End Date Angie Perez MD [address] [facility] [place] [address] PCP - General Family Medicine 04/07/24 documented as of this encounter
--- OUTSIDE RECORDS SUMMARY | 2024-06-21 01:19 | External Medical Summary | Summary of Care ---
Author Name Unknown Organization [facility] Address [address] [place] [address] Phone [phone] Care Team Providers Care Warranty Administrator Name Role Phone Angie Perez MD Primary Care Provider [phone] Reason for Visit * Reason Onset Date Comments Follow Up 06/09/2024 Encounter Details Date Type Department Care Team (Late st Contact Info) Description 06/09/2024 2:30 PM EDT Scheduled Telephone [facility], [facility] [address] [place] [address] Gustavo Begum PA-C [address] [place] [address] Allergies Active Allergy Reactions Criticality Noted Date Comments Bacitracin Itching 02/20/2018 Ezetimibe 09/19/2008 Shellfish Allergy 03/25/2023 Sulfa Antibiotics 12/24/2017 Tramadol Itching 12/24/2017 documented as of this encounter (statuses as of 06/09/2024) Medications Medication Sig Dispensed Refills Start Date [...] mouth in the morning. Active Saline Nasal Lakeland 0.65 % Nasal Solution (Pepin) Administer 1 [place] into nostril as needed for Congestion. 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 01/02/2019 Closed stable burst fracture of twelfth thoracic vertebra with routine healing 12/24/2017 Spondylolisthesis of lumbar region 12/24/2017 DDD (degenerative disc disease), lumbar 12/25/19 18 Spinal stenosis of lumbar re gion without neurogenic claudication 12/24/2017 HTN, goal below 150/90 documented as of this encounter (statuses as of 06/09/2024) Resolved Problems Problem Noted Date Diagnosed Date [...] as of this encounter (statuses as of 06/09/2024) Immunizations Name Administration Dates Next Due COVID-19 mRNA, LNP-s, No Pre serve, 2-Dose Series (Bevalley) 08/19/2021,12/26/2020,12/05/2020 COVID-19, MRNA-LNP, 23-24, P F, 30 MCG/0.3 mL, 12 YRS AND ABOVE, IM ([facility]) 03/05/2024 Covid-19, Mrna, Lnp-s, Pf, B ivalent, 30 Mcg, IM, 12 yrs and above (Bevalley) 07/30/2023 H1N1 2009 Influenza, IM 08/10/2009 Pneumococcal [...] encounter Miscellaneous Notes * Telephone Encounter - Gustavo Begum PA-C - 06/09/2024 4:02 PM EDT Phone call to review cost and possible transition to eliquis. 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 Discussed meds with patients daughter, she would like to consider and review with family prior to making a decision. She will call back at [facility] if she decides to transition to eliquis. documented in this encounter Plan of Treatment Upcoming Encounters Date Type Department Care Team (Late st Contact Info) Description 06/10/2024 6:00 AM EDT Anticoagulation Centralized Clinical Pharmacy Services, Milli Breen [address] [place] [address] [place] [address] [facility], [address] [place] [address] 06/30/2024 7:00 AM EDT Laboratory [facility] Phlebot[facility] [address] [facility] [place] [address] Mvmg, Gml [facility] Draw [address] [facility] [place] [address] 07/06/2024 4:00 PM EDT [facility] [address] [place] [address] Sandra Cullen, RN [place] [address] 07/14/2024 7:00 AM EDT Laboratory [facility] Phlebot[facility] [address] [facility] [place] [address] Mvmg, Gml [facility] Draw [address] [facility] [place] [address] 07/28/2024 7:00 AM EDT Laboratory [facility]lebot[facility] [address] [place], [place] [address] Mvmg, Gml Mobile Home Draw [address] [place], [place] [address] 07/29/2024 11:30 AM EDT [facility], [facility] [address] [place] [address] Sandra Cullen, RN [address] [place] [address] 08/10/2024 10:40 AM EST Office Visit [facility] 200 [facility], [place] [address] Angie Perez MD 200 [place] [address] 08/11/2024 7:00 AM EST Laboratory [facility] Phlebot[facility] [address] [place], [place] [address] Mvmg, Gml Mobile Home Draw [address] [place], [place] [address] 08/18/2024 7:00 AM EST Laboratory [facility] Phlebotomy [facility] [address] [place], [place] [address] Mvmg, Gml Mobile Home Draw [address] [place], [place] [address] 08/25/2024 7:00 AM EST Laboratory [facility] Phlebotomy [facility] [address] [place] [address] Mvmg, Gml Mobile Home Draw [address] [place] [address] 09/01/2024 7:00 AM EST Laboratory [facility] Phlebot[facility] [address] [place], [place] [address] Mvmg, Gml Mobile Home Draw [address] [place], [place] [address] 09/08/2024 7:00 AM EST Laboratory [facility] Mobile Phlebotomy [facility] [address] [place] [address] Mvmg, Gml Mobile Home Draw [address] [place] [address] 2024 7:00 AM EST Laboratory [facility] Phlebotomy [facility] [address] [place] [address] Mvmg, Gml [facility] Draw [address] [place] [address] 09/22/2024 7:00 AM EST Laboratory [facility] Phlebotomy [facility] [address] [place] [address] Mvmg, Gml Mobile Home Draw [address] [place] [address] 09/29/2024 7:00 AM EST Laboratory Lab Mobile Phlebotomy [facility] [address] [place] [address] Mvmg, Gml Mobile Home Draw [address] [place] [address] 10/06/2024 7:00 AM EST Laboratory [facility] Mobile Phlebotomy [facility] [address] [place] [address] Mvmg, Gml Mobile Home Draw [address] [place] [address] Health Maintenance Due Date Last Done Comments [...] D LEVEL ONCE IN A LIFETIME-USE SMARTSET# [id number] Completed 05/31/2020, 11/25/2019, 08/06/2019, Additional history exists [...] Documents on File Type Date Recorded 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 POLST 04/27/2024 8:38 AM OOH-DNR Advance Directives and Living Will 04/21/2024 10:30 AM POA and Living Will Healthcare Agents on File Name Relationship Healthcare Agent Relationship Communication Tank Haq Adult Child First Alternate Health Care Agent (per Health Care Power of Bean Picker document) Jo-Ann Rose Adult Child First Alternate Health Care Agent (per Health Care Power of Bean Picker document) [email or web address] Care Teams Warranty Administrator Relationship Specialty Start Date End Date Angie Perez MD [address] [place] [address] PCP - General Family Medicine 04/07/24 documented as of this encounter
--- OUTSIDE RECORDS SUMMARY | 2024-06-21 01:19 | External Medical Summary | Summary of Care ---
Author Name Unknown Organization [facility] Address [address] [place] [address] Phone [phone] Care Team Providers Care Kindergarten Aide Name Role Phone Angie Perez MD Primary Care Provider [phone] Reason for Visit * Reason Onset Date Comments [facility]: Maintenance 05/29/2024 Encounter Details Date Type Department Care Team (Late st Contact Info) Description 05/29/2024 Telephone [facility], [facility] [address] [place] [address] Anihsa Talley, QUALITY SYSTEMS ENGINEER [address] [place] [address] [facility]: Maintenance Allergies Active Allergy [...] mouth in the morning. Active Saline Nasal [place] 0.65 % Nasal Solution (Worth) Administer 1 [place] into nostril as needed for Congestion. 12/12/2023 [...] mRNA, LNP-s, No Pre serve, 2-Dose Series (Yipit) 08/19/2021,12/26/2020,12/05/2020 COVID-19, MRNA-LNP, 23-24, P F, 30 MCG/0.3 mL, 12 YRS AND ABOVE, IM ([employer]) 03/05/2024 Covid-19, Mrna, Lnp-s, Pf, B ivalent, [...] encounter Miscellaneous Notes * Telephone Encounter - Anisha Talley LPN - 05/29/2024 11:04 AM EDT Received call from pts dtr, thinks she missed a call from Gustavo, she is available now. TT to Gustavo documented in this encounter Plan of Treatment Upcoming Encounters Date Type Department Care Team (Late st Contact Info) Description 06/02/2024 7:00 AM EDT [facility] [address] [place] [address] [facility] [address] [place] [address] 06/09/2024 7:00 AM EDT [facility] [address] [email or web address] [place] [address] M[facility], [facility] Draw [address] [place] [address] 06/09/2024 7:05 AM EDT [facility] [address] [place], [place] [address] M[facility] Draw [address] [place] [address] 06/10/2024 6:00 AM EDT Anticoagulation Centralized [facility], Milli Breen [address] [place] [address] [place] [address] [facility], [address] [place] [address] 06/16/2024 7:00 AM EDT [facility] [address] [email or web address] [address] M[facility], [facility] Draw [address] [place] [address] 06/23/2024 7:00 AM EDT [facility] [address] [place] [address] M[facility], [facility] Draw [address] [place] [address] 06/30/2024 7:00 AM EDT [facility] [address] [email or web address] [address] M[facility], [facility] Draw [address] [facility] [place] [address] 07/06/2024 4:00 PM EDT Home Visit [facility], [facility] [address] [facility] [place] [address] Sandra Cullen RN 132 [facility] [place] [address] 07/07/2024 7:00 AM EDT Laboratory [facility] [address] [facility] [place] [address] Mvmg, Gml [facility] Home Draw [address] [place] [address] 07/14/2024 7:00 AM EDT Laboratory [facility] [address] [facility] [place] [address] Mvmg, Gml Mobile Home Draw [address] [facility] [address] 07/21/2024 7:00 AM EDT Laboratory [facility] [address] [facility] [place] [address] Mvmg, Gml Mobile Home Draw [address] [facility] [address] 07/28/2024 7:00 AM EDT Laboratory [facility] [address] [place] [address] Mvmg, Gml [facility] Home Draw [address] [facility] [address] 07/29/2024 11:30 AM EDT Home Visit [facility], [facility] [address] [place] [address] Sandra Cullen RN [address] [place] [address] 08/04/2024 7:00 AM EDT Laboratory [facility] [address] [place] [address] Mv[facility], G[facility] Home Draw [address] [place], [place] [address] 08/10/2024 10:40 AM EST Office Visit [facility] [address] [facility] [place] [address] Angie Perez MD [address] [facility] [place] [address] 08/11/2024 7:00 AM EST Laboratory [facility] [address] [place], [place] [address] Mvmg, Gml Mobile Home Draw [address] [place], [place] [address] 08/18/2024 7:00 AM EST Laboratory [facility]lebot[facility] [address] [place], [place] [address] Mvmg, Gml Mobile Home Draw [address] [facility] [place] [address] 08/25/2024 7:00 AM EST Laboratory [facility] Phle[facility] [address] [place], [place] [address] Mv[facility], G[facility] Draw [address] [place], [place] [address] 09/01/2024 7:00 AM EST Laboratory [facility] [address] [place] [address] Mvmg, Gml [facility] Home Draw [address] [facility] [place] [address] 09/08/2024 7:00 AM EST Laboratory [facility] [address] [place] [address] Mvmg, Gml [facility] Draw [address] [place] [address] 2024 7:00 AM EST Laboratory [facility] [address] [place] [address] Mvmg, [facility] Draw [address] [place] [address] 09/22/2024 7:00 AM EST Laboratory [facility] [address] [place] [address] Mvmg, Gml [facility] Home Draw [address] [facility] [place] [address] 09/29/2024 7:00 AM EST Laboratory Lab [facility] Phlebotomy [facility] [address] [facility] [place] [address] Mvmg, Gml Mobile Home Draw [address] [facility] [place] [address] 10/06/2024 7:00 AM EST Laboratory [facility]le[facility] [address] [place] [address] Mvmg, Gml [facility] Home Draw [address] [facility] [place] [address] Health Maintenance Due Date Last Done Comments [...] D LEVEL ONCE IN A LIFETIME-USE SMARTSET# 31774 Completed 05/31/2020, 11/25/2019, 08/06/2019, Additional history exists [...] Documents on File Type Date Recorded 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 04/27/2024 8:38 AM OOH-DNR Advance Directives and Living Will 04/21/2024 10:30 AM POA and Living Will Healthcare Agents on File Name Relationship Healthcare Agent Relationship Communication Tank Haq Adult Child First Alternate Health Care Agent (per Health Care Power of Plywood Layup Line Core Layer document) Jo-Ann Rose Adult Child First Alternate Health Care Agent (per Health Care Power of Plywood Layup Line Core Layer document) [email or web address] Care Teams Kindergarten Aide Relationship Specialty Start Date End Date Angie Perez MD [address] [place] [address] PCP - General Family Medicine 04/07/24 documented as of this encounter
--- OUTSIDE RECORDS SUMMARY | 2024-06-21 01:19 | External Medical Summary ---
Author Name Unknown Address Unknown Organization K0[facility] [address] [place] [address] Laboratory Report Ordering Provider Test Date Status IANADELAZOHREH 06/09/2024 08:10:00 Final Standing order for pt/inr. < br/>Please draw pt/inr every 1 to 4 weeks as requested
Results to [facility]

Warfarin Therapy
INR: 2.0-3.0 conventional anticoagulation
INR: 2.5-3.5 high intensity anticoagulation Observation Date Value Abnormality Reference (Units ) Status PT 06/09/2024 08:10:00 29.0 Above high normal 11 .6-15.2 (seconds) Final INR 06/09/2024 08:10:00 2.7 Above high normal 0. 8-1.2 Final Performing Location [facility] [address] [place] [address]
--- OUTSIDE RECORDS SUMMARY | 2024-06-21 01:19 | External Medical Summary | Summary of Care ---
Author Name Unknown Organization [facility] Address [address] [place] [address] Phone [phone] Care Team Providers Care Hostel Manager Name Role Phone Angie Perez MD Primary Care Provider [phone] Encounter Details Date Type Department Care Team (Late st Contact Info) Description 05/22/2024 11:00 AM EDT Home Visit [facility] [address] [place], [place] [id number] Julissa Christopher, [facility] Cutter [address] [place], [place] [id number] Allergies Active Allergy Reactions Criticality Noted Date [...] mouth in the morning. Active Saline Nasal [place] 0.65 % Nasal Solution ([place]) Administer 1 [place] into nostril as needed for Congestion. 12/12/2023 [...] mRNA, LNP-s, No Pre serve, 2-Dose Series (OrderGroove) 08/19/2021,12/26/2020,12/05/2020 COVID-19, MRNA-LNP, 23-24, P F, 30 [...] of this encounter Progress Notes * Julissa Christopher, [facility] - 05/22/2024 11:42 AM EDT Telemedicine visit: No [facility] (SELENE) documentation: CHW took pictures of bottom area of patient as requested and uploaded to media folder in chart. Julissa Christopher- Community Health Worker 1 Support Services/[facility] [email or web address] documented in this encounter Plan of Treatment Upcoming Encounters Date Type Department Care Team (Late st Contact Info) Description 05/26/2024 7:00 AM EDT Laboratory Lab [facility] [address] [place] [address] Mv[facility], Gml Mobile Home Draw [address] [place] [address] 05/27/2024 6:00 AM EDT Anticoagulation Centralized Clinical Pharmacy Services, Milli Breen [address] [place] [address] [place] [address] [facility], [address] [place] [address] 05/29/2024 9:00 AM EDT [facility] [address] [place] [address] Gustavo Begum PA-C [address] [place] [address] 06/02/2024 7:00 AM EDT Laboratory [facility]lebot[facility] [address] [place] [address] Mvmg, Gml [facility] Home Draw [address] [place] [address] 06/09/2024 7:00 AM EDT Laboratory [facility] [address] [place] [address] Mvmg, Gml Mobile Home Draw [address] [place] [address] 06/16/2024 7:00 AM EDT Laboratory [facility]le[facility] [address] [place] [address] Mvmg, Gml [facility] Home Draw [address] [place] [address] 06/23/2024 7:00 AM EDT Laboratory Lab [facility] Phlebot[facility] [address] [place], [place] [address] Mvmg, Gml Mobile Home Draw [address] [place], [place] [address] 06/30/2024 7:00 AM EDT Laboratory [facility] [address] [place], [place] [address] M[facility], [facility] Draw [address] [place], [place] [address] 07/06/2024 4:00 PM EDT [facility] 132 [facility] [place] [address] Sandra Cullen RN 132 [facility] [place] [address] 07/07/2024 7:00 AM EDT Laboratory Lab [facility] Phlebot[facility] [address] [place], [place] [address] Mvmg, Gml Mobile Home Draw [address] [place], [place] [address] 07/14/2024 7:00 AM EDT Laboratory [facility] Phlebot[facility] [address] [place], [place] [address] Mvmg, Gml Mobile Home Draw [address] [place] [address] 07/21/2024 7:00 AM EDT Laboratory Lab [facility] Phlebot[facility] [address] [place] [address] Mvmg, Gml Mobile Home Draw [address] [place] [address] 07/28/2024 7:00 AM EDT Laboratory Lab [facility] Phlebotomy [facility] [address] [place], [place] [address] Mvmg, Gml Mobile Home Draw [address] [place] [address] 07/29/2024 11:30 AM EDT [facility] [place], [facility] [address] [place] [address] Sandra Cullen, RN [address] [place] [address] 08/04/2024 7:00 AM EDT Laboratory Lab Mobile Phlebotomy [facility] [address] [place], [place] [address] Mvmg, Gml Mobile Home Draw [address] [facility] [place], [place] [address] 08/10/2024 10:40 AM EST Office Visit [facility] 200 [facility] [place] [address] Angie Perez MD 200 [facility] [place] [address] 08/11/2024 7:00 AM EST Laboratory Lab [facility] Phlebot[facility] [address] [facility] [place] [address] Mvmg, Gml Mobile Home Draw [address] [facility] [place], [place] [address] 08/18/2024 7:00 AM EST Laboratory Lab [facility] Phlebot[facility] [address] [place] [address] Mvmg, Gml Mobile Home Draw [address] [place] [facility] [place] [address] 08/25/2024 7:00 AM EST Laboratory Lab Mobile Phlebotomy [facility] [address] [place] [address] Mvmg, Gml Mobile Home Draw [address] [place] [facility] [place] [address] 09/01/2024 7:00 AM EST Laboratory [facility] Phlebot[facility] [address] [place] [address] Mvmg, Gml Mobile Home Draw [address] [facility] [place], [place] [address] 09/08/2024 7:00 AM EST Laboratory [facility] Phlebot[facility] [address] [place] [address] Mvmg, Gml [facility] Home Draw [address] [place] [address] 2024 7:00 AM EST Laboratory Lab [facility] Phlebotomy [facility] [address] [place] [address] Mvmg, Gml Mobile Home Draw [address] [facility] [place] [address] 09/22/2024 7:00 AM EST Laboratory Lab [facility] Phlebotomy [facility] [address] [place] [address] Mvmg, Gml Mobile Home Draw [address] [facility] [place] [address] 09/29/2024 7:00 AM EST Laboratory Lab [facility] Phlebot[facility] [address] [place] [address] Mvmg, Gml Mobile Home Draw [address] [place] [address] 10/06/2024 7:00 AM EST Laboratory Lab Mobile Phlebotomy [facility] [address] [place] [address] Mvmg, Gml Mobile Home Draw [address] [facility] [place] [address] Health Maintenance Due Date Last Done Comments Albumin/Creatinine Ratio 1958 Adult Wellness Visit 09/25/2020 09/25/2019 DTaP,Tdap,and Td Vaccines (2 - Td or Tdap) 10/15/2021 10/15/2011 Depression Monitoring 05/18/2022 05/18/2021 COVID-19 Vaccine (2022- season) 2024 03/05/2024, 03/05/2024, 07/30/2023, Additional history exists DXA Scan 05/02/2024 05/02/2022, 04/07, 12/03/2018, Additional history exists Influenza Vaccine (FLU shot) (#1) 2024 07/26/2023, 07/23/2022, 09/05/2021, Additional history exists Zoster Vaccines Completed 11/04/2019, 10/08, 05/27/2019, Additional history exists VITAMIN D LEVEL ONCE IN A LIFETIME-USE SMARTSET# [id number] Completed 05/31/2020, 11/25/2019, 08/06/2019, Additional history exists [...] Documents on File Type Date Recorded Patient Validation Engineer Expl anation POLST 04/27/2024 8:38 AM OOH-DNR Advance Directives and Living Will 04/21/2024 10:30 AM POA and Living Will Healthcare Agents on File Name Relationship Healthcare Agent Relationship Communication Tank Haq Adult Child First Alternate Health Care Agent (per Health Care Power of Cloud Operations Engineer document) Jo-Ann Rose Adult Child First Alternate Health Care Agent (per Health Care Power of Cloud Operations Engineer document) [email or web address] Care Teams Hostel Manager Relationship Specialty Start Date End Date Angie Perez MD [address] [place] [address] PCP - General Family Medicine 04/07/24 documented as of this encounter"
--- OUTSIDE RECORDS SUMMARY | 2024-06-21 01:19 | External Medical Summary | Summary of Care ---
Author Name Unknown Organization [facility] Address [address] [place] [address] Phone [phone] Care Team Providers Care Oil Developer Name Role Phone Opal Perez MD Primary Care Provider [phone] Reason for Visit * Reason Comments Medication Refill Encounter Details Date Type Department Care Team (Late st Contact Info) Description 05/21/2024 Refill Family Practice [facility] [address] [place] [address] Opal Perez MD [address] [place] [address] Allergies Active Allergy Reactions Criticality Noted Date [...] mouth in the morning. Active Saline Nasal Vanduser 0.65 % Nasal Solution ([place]) Administer 1 Vanduser into nostril as needed for Congestion. 12/12/2023 [...] times daily 113 g 1 05/22/2024 Active Menthol-Zinc Oxide 0.44-20.6 % External Ointment (Calmoseptine) Apply thin layer to affected area with each change, up to 4 times daily 113 g 1 04/13/2024 Discontinu ed(Refill) documented as of this encounter [...] No Pre serve, 2-Dose Series (Pfizer) 08/19/2021,12/26/2020,12/05/2020 COVID-19, MRNA-LNP, 23-24, P F, 30 MCG/0.3 mL, 12 YRS AND ABOVE, IM (WaterBear Soft-ComirnatSky Level Enterprieses) 03/05/2024 Covid-19, Mrna, Lnp-s, Pf, B ivalent, [...] encounter Miscellaneous Notes * Telephone Encounter - Opal Perez MD - 05/22/2024 8:14 AM EDTSigned Prescriptions: Disp Refills Calmoseptine 0.44-20.6 % External Ointment*113 g 1 Sig: Apply thin layer to affected area with each change, up to 4 times daily Authorizing Provider: OPAL PEREZ * Telephone Encounter - Chelsie Coombs LPN - 05/22/2024 7:49 AM EDTPending Prescriptions: Disp Refills Calmoseptine 0.44-20.6 % External Ointment*113 g 1 Sig: Apply thin layer to affected area with each change, up to 4 times daily * Telephone Encounter - Chelsie Coombs LPN - 05/22/2024 7:49 AM EDT Did you pend patient's preferred pharmacy and medication before forwarding?yes Pharmacy: [facility] Pending Prescriptions: Disp Refills Calmoseptine 0.44-20.6 % External Ointmen*113 g 1 Sig: Apply thin layer to affected area with each change, up to 4 times daily Last Visit: 04/07/2024 (in office), Visit date not found (telemedicine) Next Visit: 08/10/2024 If no future appointments scheduled, and last appointment is greater than a year ago, please schedule patient for a follow-up appointment Last date the medication was ordered: 04/13/24 Is this request for a controlled substance?No Urine Drug Screen:No results found for this or any previous visit. Patient Phone Numbers Labs: Lab Results Component Value Date/Time CREAT 0.8 04/14/2024 08:05 AM CREAT 0.70 11/28/2021 12:00 AM CREAT 0.8 05/31/2020 02:15 PM POTASSIUM 4.4 04/14/2024 08:05 AM POTASSIUM 3.8 11/28/2021 12:00 AM POTASSIUM 4.6 05/31/2020 02:15 PM TSH 2.33 07/15/2018 12:58 PM LDLCALC 107 11/23/2020 07:26 PM LDLCALC 122 11/25/2019 09:13 AM LDLDIRECT NOT APPLICABLE 11/25/2019 09:13 AM ALT 7 (L) 05/25/2021 02:41 PM ALT 6 (L) 11/15/2018 09:31 AM HGBA1C 5.9 (A) 11/28/2021 12:00 AM * Telephone Encounter - Vince Ghotra - 05/21/2024 10:52 PM EDTPending Prescriptions: Disp Refills Calmoseptine 0.44-20.6 % External Ointment*113 g 1 Sig: Apply thin layer to affected area with each change, up to 4 times daily documented in this encounter Plan of Treatment Upcoming Encounters Date Type Department Care Team (Late st Contact Info) Description 05/22/2024 11:00 AM EDT Home Visit [facility] [address] [place] [address] Julissa Christopher, Community Health Scourer [address] [place] [address] 05/26/2024 7:00 AM EDT Laboratory Lab Mobile [facility] [address] [place], [place] [address] M[facility], [facility] [address] [place], [place] [address] 05/27/2024 6:00 AM EDT Anticoagulation Centralized Clinical Pharmacy Services, Milli Breen [address] [place] [address] [place] [address] [facility], [address] [place] [address] 05/29/2024 9:00 AM EDT [facility] Visit [facility], [facility] [address] [place] [address] Gustavo Begum PA-C [address] [place] [address] 06/02/2024 7:00 AM EDT Laboratory Lab [facility] Phlebotomy [facility] [address] [place], [place] [address] M[facility], [facility] [address] [place], [place] [address] 06/09/2024 7:00 AM EDT Laboratory Lab Mobile Phlebotomy [facility] [address] [employer] [place], [place] [address] Mvmg, [facility] [address] [place], [place] [address] 06/16/2024 7:00 AM EDT Laboratory Lab [facility] Phlebotomy [facility] [address] [place] [address] Mvmg, [facility] [address] [place] [place] [address] 06/23/2024 7:00 AM EDT Laboratory Lab [facility] Phlebotomy [facility] [address] [place], [place] [address] Mvmg, [facility] [address] [place], [place] [address] 06/30/2024 7:00 AM EDT Laboratory Lab [facility]lebot[facility] [address] [facility] [place] [address] Mvmg, [facility] [address] [facility] [place], [place] [address] 07/06/2024 4:00 PM EDT Home Visit [facility], [facility] [place] [address] Sandra Cullen RN [address] [place] [place] [address] 07/07/2024 7:00 AM EDT Laboratory Lab [facility] Phlebotomy [facility] [address] [facility] [place], [place] [address] Mvmg, [facility] [address] [facility] [place] [address] 07/14/2024 7:00 AM EDT Laboratory Lab [facility] Phlebotomy [facility] [address] [facility] [place] [address] Mvmg, [facility] [address] [facility] [place] [address] 07/21/2024 7:00 AM EDT Laboratory Lab [facility] Phlebotomy [facility] [address] [facility] [place] [address] Mvmg, [facility] [address] [facility] [place] [address] 07/28/2024 7:00 AM EDT Laboratory Lab Mobile Phlebotomy [facility] [address] [facility] [place] [address] Mvmg, [facility] [address] [facility] [place] [address] 07/29/2024 11:30 AM EDT Home Visit [facility], [facility] [address] [place] [address] Sandra Cullen RN [address] [facility] [place] [address] 08/04/2024 7:00 AM EDT Laboratory Lab [facility] Phlebot[facility] [address] [place], [place] [address] Mv[facility], [facility] [address] [place], [place] [address] 08/10/2024 10:40 AM EST Office Visit Family [facility] [place] [address] [facility] [place], [place] [address] Opal Perez MD [address] [facility] [place] [address] 08/11/2024 7:00 AM EST Laboratory Lab [facility] Phlebotomy [facility] [address] [place], [place] [address] Mvmg, [facility] [address] [place], [place] [address] 08/18/2024 7:00 AM EST Laboratory Lab [facility] Phlebotomy [facility] [address] [place] [address] Mvmg, [facility] [address] [facility] [place] [address] 08/25/2024 7:00 AM EST Laboratory Lab Mobile Phlebotomy [facility] [address] [place] [address] Mvmg, [facility] [address] [place] [address] 09/01/2024 7:00 AM EST Laboratory Lab [facility] Phlebotomy [facility] [address] [place] [address] Mvmg, [facility] [address] [place] [address] 09/08/2024 7:00 AM EST Laboratory Lab [facility] Phlebotomy [facility] [address] [place] [address] Mvmg, [facility] [address] [place] [address] 2024 7:00 AM EST Laboratory Lab Mobile Phlebotomy [facility] [address] [place] [address] Mvmg, [facility] [address] [place] [address] 09/22/2024 7:00 AM EST Laboratory Lab Mobile Phlebotomy [facility] [address] [place] [address] Mvmg, [facility] [address] [facility] [place] [address] 09/29/2024 7:00 AM EST Laboratory Lab [facility] Phlebotomy [facility] [address] [place] [address] Mvmg, [facility] [address] [facility] [place] [address] 10/06/2024 7:00 AM EST Laboratory Lab Mobile Phlebotomy [facility] [address] [place] [address] Mvmg, [facility] [address] [facility] [place] [address] Health Maintenance Due Date Last Done Comments [...] D LEVEL ONCE IN A LIFETIME-USE SMARTSET# 60803 Completed 05/31/2020, 11/25/2019, 08/06/2019, Additional history exists [...] Documents on File Type Date Recorded Patient Pulmonary Function Technician Expl anation POLST 04/27/2024 8:38 AM OOH-DNR Advance Directives and Living Will 04/21/2024 10:30 AM POA and Living Will Healthcare Agents on File Name Relationship Healthcare Agent Relationship Communication Takn Haq Adult Child First Alternate Health Care Agent (per Health Care Power of Vocational Nursing Instructor document) Jo-Ann Rose Adult Child First Alternate Health Care Agent (per Health Care Power of Vocational Nursing Instructor document) [email or web address] Care Teams Oil Developer Relationship Specialty Start Date End Date Opal Perez MD [address] [place] [address] PCP - General Family Medicine 04/07/24 documented as of this encounter
--- OUTSIDE RECORDS SUMMARY | 2024-06-21 01:20 | External Medical Summary | Summary of Care ---
Author Name Unknown Organization [facility] Address [address] [place] [address] Phone [phone] Care Team Providers Care Director Of Undergraduate Admissions Name Role Phone Angie Perez MD Primary Care Provider [phone] Reason for Visit * Reason Onset Date Comments Encounter Created in Error 04/15/2024 Encounter Details Date Type Department Care Team (Late st Contact Info) Description 04/15/2024 1:45 PM EDT Scheduled Telephone [facility], [facility] [address] [facility] [place] [address] Coordinator, [facility] [address] [facility] [place] [address] Allergies Active Allergy Reactions Criticality Noted Date Comments Bacitracin Itching 02/20/2018 Ezetimibe 09/19/2008 Shellfish Allergy 03/25/2023 Sulfa Antibiotics 12/24/2017 Tramadol Itching 12/24/2017 documented as of this encounter (statuses as of 04/20/2024) Medications Medication Sig Dispensed Refills Start Date [...] mouth in the morning. Active Saline Nasal [place] 0.65 % Nasal Solution ([place]) Administer 1 [place] into nostril as needed for Congestion. 12/12/2023 [...] as of this encounter (statuses as of 04/20/2024) Active Problems Problem Noted Date Diagnosed Date [...] as of this encounter (statuses as of 04/20/2024) Resolved Problems Problem Noted Date Diagnosed Date [...] as of this encounter (statuses as of 04/20/2024) Immunizations Name Administration Dates Next Due COVID-19 mRNA, LNP-s, No Pre serve, 2-Dose Series ([employer]) 08/19/2021,12/26/2020,12/05/2020 COVID-19, MRNA-LNP, 23-24, P F, 30 [...] Care Team (Late st Contact Info) Description 04/21/2024 7:00 AM EDT Laboratory Lab Mobile Phlebotomy [facility] [address] [employer] [place] [address] Mvmg, [facility] Draw [address] [place] [address] 04/24/2024 6:00 AM EDT Anticoagulation Centralized Clinical Pharmacy Services, Milli Breen [address] [place] [address] [place] [address] [facility], [address] [place] [address] 04/28/2024 7:00 AM EDT Laboratory Lab Mobile Phlebotomy [facility] [address] [place] [address] Mvmg, [facility] Draw [address] [place] [address] 05/05/2024 7:00 AM EDT Laboratory Lab Mobile Phlebotomy [facility] [address] [place], [place] [address] Mvmg, [facility] Draw [address] [employer] [place], [place] [address] 05/12/2024 7:00 AM EDT Laboratory Lab Mobile Phlebotomy [facility] [address] [place] [address] Mvmg, [facility] Draw [address] [place] [address] 05/19/2024 7:00 AM EDT Laboratory Lab Mobile Phlebotomy [facility] [address] [place] [address] Mvmg, [facility] [address] [place] [address] 05/26/2024 7:00 AM EDT Laboratory Lab Mobile Phlebotomy [facility] [address] [place] [address] Mvmg, [facility] [address] [place] [address] 05/29/2024 9:00 AM EDT [facility] Visit [facility], [facility] [address] [address] Gustavo Begum PA-C [address] [address] 06/02/2024 7:00 AM EDT Laboratory Lab Mobile Phlebotomy [facility] [address] [facility] [place] [address] Mvmg, [facility] Draw [address] [facility] [place] [address] 06/09/2024 7:00 AM EDT Laboratory Lab Mobile Phlebotomy [facility] [address] [place] [address] Mvmg, [facility] Draw [address] [facility] [place] [address] 06/16/2024 7:00 AM EDT Laboratory Lab Mobile Phlebotomy [facility] [address] [place] [address] Mvmg, G[facility] Draw [address] [facility] [place] [address] 06/23/2024 7:00 AM EDT Laboratory Lab Mobile Phlebotomy [facility] [address] [facility] [place] [address] Mvmg, Gml [facility] Draw [address] [facility] [place] [address] 06/29/2024 10:00 AM EDT [facility] [address] [facility] [place] [address] Sandra Cullen, RN [address] [place] [address] 06/30/2024 7:00 AM EDT Laboratory Lab Mobile Phlebotomy [facility] [address] [place] [address] Mvmg, [facility] Draw [address] [facility] [place] [address] 07/07/2024 7:00 AM EDT Laboratory Lab Mobile Phlebotomy [facility] [address] [place] [address] Mvmg, [facility] Draw [address] [place] [address] 07/14/2024 7:00 AM EDT Laboratory Lab Mobile Phlebotomy [facility] [address] [place], [place] [address] Mvmg, [facility] Draw [address] [place], [place] [address] 07/21/2024 7:00 AM EDT Laboratory Lab Mobile Phlebotomy [facility] [address] [place], [place] [address] Mvmg, [facility] Draw [address] [place] [address] 07/28/2024 7:00 AM EDT Laboratory Lab Mobile Phlebotomy [facility] [address] [place], [place] [address] Mvmg, [facility] [address] [place], [place] [address] 07/29/2024 11:30 AM EDT Home Visit [facility] [address] [facility] [place] [address] Sandra Cullen RN [address] [place] [address] 08/04/2024 7:00 AM EDT Laboratory Lab Mobile Phlebotomy [facility] [address] [place], [place] [address] Mvmg, [facility] [address] [place], [place] [address] 08/10/2024 10:40 AM EST Office Visit [facility] [address] [place], [place] [address] Angie Perez MD [address] [place] [address] 08/11/2024 7:00 AM EST Laboratory Lab Mobile Phlebotomy [facility] [address] [place], [place] [address] Mvmg, [facility] [address] [place] [address] 08/18/2024 7:00 AM EST Laboratory Lab Mobile Phlebotomy [facility] [address] [place] [address] Mvmg, [facility] [address] [place] [address] 08/25/2024 7:00 AM EST Laboratory Lab Mobile Phlebotomy [facility] [address] [place] [address] Mvmg, [facility] [address] [place] [address] 09/01/2024 7:00 AM EST Laboratory Lab Mobile Phlebotomy [facility] [address] [place] [address] Mvmg, [facility] [address] [place] [address] 09/08/2024 7:00 AM EST Laboratory Lab Mobile Phlebotomy [facility] [address] [place] [address] Mvmg, [facility] [address] [place] [address] 2024 7:00 AM EST Laboratory Lab Mobile Phlebotomy [facility] [address] [place] [address] Mvmg, [facility] [address] [place] [address] 09/22/2024 7:00 AM EST Laboratory Lab Mobile Phlebotomy [facility] [address] [place] [address] Mvmg, [facility] [address] [place] [address] 09/29/2024 7:00 AM EST Laboratory Lab Mobile Phlebotomy [facility] [address] [place] [address] Mvmg, Gml [facility] Draw [address] [place] [address] 10/06/2024 7:00 AM EST Laboratory Lab Mobile Phlebotomy [facility] [address] [place], [place] [address] Mvmg, Gml [facility] Home Draw [address] [facility] [place] [address] Health Maintenance Due Date Last Done Comments Albumin/Creatinine Ratio 1958 DTaP,Tdap,and Td Vaccines (2 - Td or Tdap) 10/15/2021 10/15/2011 Depression Monitoring 05/18/2022 05/18/2021 COVID-19 Vaccine ( - 2022- season) 2024 03/05/2024, 03/05/2024, 07/30/2023, Additional history exists DXA Scan 05/02/2024 05/02/2022, 04/07, 12/03/2018, Additional history exists Influenza Vaccine (FLU shot) (#1) 2024 07/26/2023, 07/23/2022, 09/05/2021, Additional history exists Zoster Vaccines Completed 11/04/2019, 10/08, 05/27/2019, Additional history exists VITAMIN D LEVEL ONCE IN A LIFETIME-USE SMARTSET# 72339 Completed 05/31/2020, 11/25/2019, 08/06/2019, Additional history exists [...] filedocumented as of this encounter Advance Directives Healthcare Agents on File Name Relationship Healthcare Agent Relationship Communication Tank Haq Adult Child First Alternate Health Care Agent (per Health Care Power of Compensation Adjuster document) Jo-Ann Rose Adult Child First Alternate Health Care Agent (per Health Care Power of Compensation Adjuster document) Care Teams Director Of Undergraduate Admissions Relationship Specialty Start Date End Date Angie Perez MD [address] [facility] [place] [address] PCP - General Family Medicine 04/07/24 documented as of this encounter
--- OUTSIDE RECORDS SUMMARY | 2024-06-21 01:20 | External Medical Summary ---
Author Name Unknown Address Unknown Organization [facility] [address] [place] [address] Laboratory Report Ordering Provider Test Date Status IANRAYSA 04/21/2024 08:51:00 Final Standing order for pt/inr. < br/>Please draw pt/inr every 1 to 4 weeks as requested
Results to [facility]

Warfarin Therapy
INR: 2.0-3.0 conventional anticoagulation
INR: 2.5-3.5 high intensity anticoagulation Observation Date Value Abnormality Reference (Units ) Status PT 04/21/2024 08:51:00 21.6 Above high normal 11 .6-15.2 (seconds) Final INR 04/21/2024 08:51:00 1.9 Above high normal 0. 8-1.2 Final Performing Location [facility] [address] [place] [address]
--- OUTSIDE RECORDS SUMMARY | 2024-06-21 01:20 | External Medical Summary | Summary of Care ---
Author Name Unknown Organization [facility] Address [address] [place] [address] Phone [phone] Care Team Providers Care Mail Reader Name Role Phone Angie Perez MD Primary Care Provider [phone] Reason for Visit * Reason Comments Dosage Adjustment Via Phone (anticoag Cl inic) Encounter Details Date Type Department Care Team (Late st Contact Info) Description 04/22/2024 6:00 PM EDT Anticoagulation Centralized Clinical Pharmacy Services, Milli Breen [address] [place] [address] [place] [address] [place] [address] Anticoagulation management encounter* Allergies Active Allergy Reactions Criticality Noted Date Comments Bacitracin Itching 02/20/2018 Ezetimibe 09/19/2008 Shellfish Allergy 03/25/2023 Sulfa Antibiotics 12/24/2017 Tramadol Itching 12/24/2017 documented as of this encounter (statuses as of 04/22/2024) Medications Medication Sig Dispensed Refills Start Date [...] mouth in the morning. Active Saline Nasal [place] 0.65 % Nasal Solution ([place]) Administer 1 [place] into nostril as needed for Congestion. 12/12/2023 [...] as of this encounter (statuses as of 04/22/2024) Active Problems Problem Noted Date Diagnosed Date [...] as of this encounter (statuses as of 04/22/2024) Resolved Problems Problem Noted Date Diagnosed Date [...] as of this encounter (statuses as of 04/22/2024) Immunizations Name Administration Dates Next Due COVID-19 mRNA, LNP-s, No Pre serve, 2-Dose Series ([employer]) 08/19/2021,12/26/2020,12/05/2020 COVID-19, MRNA-LNP, 23-24, P F, 30 MCG/0.3 mL, 12 YRS AND ABOVE, IM ([employer]-Comirnat) 03/05/2024 Covid-19, Mrna, Lnp-s, Pf, B ivalent, [...] as of this encounter Progress Notes * Saige Kumar, forestry fire aide - 04/22/2024 10:36 AM EDT Contacts Type Contact Phone/Fax 04/22/2024 10:33 AM EDT Phone (Outgoing) Analy Haq (Self) [phone] (H) Subjective Patient Findings Negatives: Signs/symptoms of bleeding, Change in health, Change in activity, Upcoming invasive procedure, Missed doses, Extra doses, Change in medications, Change in diet/appetite, Bruising Advised patient to contact Anticoagulation Clinic if any unusual bruising or bleeding, recent illness, changes in medication, or questions/concerns. PT/INR results, Coumadin dose instructions, and next PT/INR date communicated as noted by Pharmacist: Yes THAD ENRIQUEZ 04/22/2024, 10:36 AM * Julissa Jean RPh - 04/22/2024 9:58 AM EDT Images from the original note were not included. Coumadin Clinic (region specific) Objective Current Warfarin Dose As of 04/22/2024 Warfarin maintenance plan: 5 mg (1 mg x 5) every Mon, Fri; 3 mg (1 mg x 3) all other days INR Result As of 04/22/2024 INR goal: 2.0-3.0 INR used for dosin.9 (04/21/2024) Assessment & Plan Warfarin Plan As of 04/22/2024 Full warfarin instructions: 5 mg every Mon, Wed, Fri; 3 mg all other days Next INR check: 05/04/2024 Repeat PT/INR in 1.5 week(s) Weekly dose: increased Additional Dosing Information: Description [facility] to contact patient with dose instructions as noted. Julissa Jean RPh 04/22/2024, 9:58 AM documented in this encounter Plan of Treatment Upcoming Encounters Date Type Department Care Team (Late st Contact Info) Description 04/28/2024 7:00 AM EDT Laboratory Lab [facility] [address] [place] [address] [facility], [facility] [address] [place] [address] 05/05/2024 6:00 AM EDT Anticoagulation Centralized Clinical Pharmacy Services, Milli Breen [address] [place] [address] [place] [address] [facility], [address] [place] [address] 05/05/2024 7:00 AM EDT Laboratory Lab [facility] [address] [place] [address] [facility], [facility] [address] [place] [address] 05/12/2024 7:00 AM EDT Laboratory [facility] [address] [place] [address] [facility], [facility] [address] [place] [address] 05/19/2024 7:00 AM EDT Laboratory [facility] [address] [place] [address] M[facility], [facility] [address] [place] [address] 05/26/2024 7:00 AM EDT Laboratory [facility] [address] [place] [address] M[facility], [facility] [address] [place] [address] 05/29/2024 9:00 AM EDT [facility] Visit [facility], [facility] [address] [place] [address] Gustavo Begum PA-C [address] [place] [address] 06/02/2024 7:00 AM EDT Laboratory Lab [facility] [address] [place] [address] [facility], [facility] [address] [place] [address] 06/09/2024 7:00 AM EDT Laboratory Lab [facility]lebot[facility] [address] [facility] [place] [address] Mvmg, [facility] [address] [facility] [place] [address] 06/16/2024 7:00 AM EDT Laboratory Lab [facility]lebot[facility] [address] [facility] [place] [address] Mvmg, [facility] [address] [facility] [place] [address] 06/23/2024 7:00 AM EDT Laboratory Lab [facility] Phlebot[facility] [address] [facility] [place] [address] Mvmg, [facility] [address] [facility] [place] [address] 06/29/2024 10:00 AM EDT Home Visit [facility] [address] [facility] [place] [address] Sandra Cullen RN [address] [place] [address] 06/30/2024 7:00 AM EDT Laboratory Lab [facility] Phlebot[facility] [address] [facility] [place] [address] M[facility], [facility] [address] [facility] [place] [address] 07/07/2024 7:00 AM EDT Laboratory Lab [facility] Phlebot[facility] [address] [facility] [place] [address] Mvmg, [facility] [address] [facility] [place] [address] 07/14/2024 7:00 AM EDT Laboratory Lab [facility]lebot[facility] [address] [facility] [place] [address] Mvmg, [facility] [address] [facility] [place] [address] 07/21/2024 7:00 AM EDT Laboratory Lab [facility]bot[facility] [address] [place], [place] [address] M[facility], [facility] [address] [place], [place] [address] 07/28/2024 7:00 AM EDT Laboratory Lab [facility] [address] [place], [place] [address] [facility], [facility] [address] [place], [place] [address] 07/29/2024 11:30 AM EDT Home Visit [facility] [address] [place] [address] Sandra Cullen, RN [address] [place] [address] 08/04/2024 7:00 AM EDT Laboratory Lab [facility]bot[facility] [address] [place] [address] [facility], [facility] [address] [place], [place] [address] 08/10/2024 10:40 AM EST Office Visit [facility] [address] [facility] [place], [place] [address] Angie Perez MD [address] [facility] [place] [address] 08/11/2024 7:00 AM EST Laboratory Lab [facility] Phlebot[facility] [address] [place], [place] [address] M[facility], [facility] [address] [place], [place] [address] 08/18/2024 7:00 AM EST Laboratory Lab [facility] Phlebotomy [facility] [address] [place], [place] [address] M[facility], [facility] [address] [place], [place] [address] 08/25/2024 7:00 AM EST Laboratory Lab [facility] Phlebotomy [facility] [address] [facility] [place] [address] Mvmg, [facility] [address] [facility] [place] [address] 09/01/2024 7:00 AM EST Laboratory Lab Mobile Phlebotomy [facility] [address] [facility] [place] [address] Mvmg, [facility] [address] [place] [address] 09/08/2024 7:00 AM EST Laboratory Lab [facility] Phlebotomy [facility] [address] [place] [address] Mvmg, [facility] Draw [address] [place] [address] 2024 7:00 AM EST Laboratory Lab [facility] Phlebotomy [facility] [address] [facility] [place] [address] Mvmg, [facility] Draw [address] [place] [address] 09/22/2024 7:00 AM EST Laboratory Lab [facility] Phlebotomy [facility] [address] [facility] [place] [address] Mvmg, [facility] Draw [address] [place] [address] 09/29/2024 7:00 AM EST Laboratory Lab [facility]lebot[facility] [address] [address] Mvmg, [facility] [address] [place] [address] 10/06/2024 7:00 AM EST Laboratory Lab [facility] Phlebotomy [facility] [address] [facility] [place] [address] Mvmg, [facility] [address] [place] [address] Health Maintenance Due Date Last Done Comments [...] D LEVEL ONCE IN A LIFETIME-USE SMARTSET# [id number] Completed 05/31/2020, 11/25/2019, 08/06/2019, Additional history exists [...] Documents on File Type Date Recorded Patient Commissary Agent Expl anation Advance Directives and Living Will 04/21/2024 10:30 AM POA and Living Will Healthcare Agents on File Name Relationship Healthcare Agent Relationship Communication Tank Haq Adult Child First Alternate Health Care Agent (per Health Care Power of Powertrain Control Systems Engineer document) Jo-Ann Rose Adult Child First Alternate Health Care Agent (per Health Care Power of Powertrain Control Systems Engineer document) [email or web address] Care Teams Mail Reader Relationship Specialty Start Date End Date Angie Perez MD [address] [place] [address] PCP - General Family Medicine 04/07/24 documented as of this encounter
--- OUTSIDE RECORDS SUMMARY | 2024-06-21 01:20 | External Medical Summary | Summary of Care ---
Author Name Unknown Organization [facility] Address [address] [place] [address] Phone [phone] Care Team Providers Care Graphic Design Specialist Name Role Phone Angie Perez MD Primary Care Provider [phone] Reason for Visit * Reason Comments Dosage Adjustment Via Phone (anticoag Cl inic) Encounter Details Date Type Department Care Team (Late st Contact Info) Description 05/06/2024 6:00 AM EDT Anticoagulation Centralized Clinical Pharmacy Services, Milli Breen [address] [place] [address] [place] [address] [place] [address] Anticoagulation management encounter* Allergies Active Allergy Reactions Criticality Noted Date Comments Bacitracin Itching 02/20/2018 Ezetimibe 09/19/2008 Shellfish Allergy 03/25/2023 Sulfa Antibiotics 12/24/2017 Tramadol Itching 12/24/2017 documented as of this encounter (statuses as of 05/06/2024) Medications Medication Sig Dispensed Refills Start Date [...] mouth in the morning. Active Saline Nasal [place] 0.65 % Nasal Solution ([place]) Administer 1 [place] into nostril as needed for Congestion. 12/12/2023 [...] as of this encounter (statuses as of 05/06/2024) Active Problems Problem Noted Date Diagnosed Date [...] as of this encounter (statuses as of 05/06/2024) Resolved Problems Problem Noted Date Diagnosed Date [...] as of this encounter (statuses as of 05/06/2024) Immunizations Name Administration Dates Next Due COVID-19 mRNA, LNP-s, No Pre serve, 2-Dose Series ([place]) 08/19/2021,12/26/2020,12/05/2020 COVID-19, MRNA-LNP, 23-24, P F, 30 MCG/0.3 mL, 12 YRS AND ABOVE, IM ([employer]-Comirnat) 03/05/2024 Covid-19, Mrna, Lnp-s, Pf, B ivalent, [...] of this encounter Progress Notes * Juliana Bar, historiographer - 05/06/2024 8:29 AM EDT Contacts Type Contact Phone/Fax 05/06/2024 08:26 AM EDT Phone (Outgoing) Analy Haq (Self) [phone] (H) Left Message Subjective Advised patient to contact Anticoagulation Clinic if any unusual bruising or bleeding, recent illness, changes in medication, or questions/concerns. PT/INR results, Coumadin dose instructions, and next PT/INR date communicated as noted by Pharmacist: Yes THAD COSBY 05/06/2024, 8:29 AM * Julissa Jean RPh - 05/06/2024 8:01 AM EDT Coumadin Clinic (region specific) Objective Current Warfarin Dose As of 05/06/2024 Warfarin maintenance plan: 5 mg (1 mg x 5) every Mon, Wed, Fri; 3 mg (1 mg x 3) all other days INR Result As of 05/06/2024 INR goal: 2.0-3.0 INR used for dosin.7 (05/05/2024) Assessment & Plan Warfarin Plan As of 05/06/2024 Full warfarin instructions: 5 mg every Mon, Wed, Fri; 3 mg all other days No change documented: Julissa Jean RPh Next INR check: 05/12/2024 Repeat PT/INR in 1 week(s) Weekly dose: not changed Additional Dosing Information: Description [facility] to contact patient with dose instructions as noted. Julissa Jean RPh 05/06/2024, 8:01 AM documented in this encounter Plan of Treatment Upcoming Encounters Date Type Department Care Team (Late st Contact Info) Description 05/12/2024 7:00 AM EDT Laboratory Lab Mobile Phlebotomy [facility] [address] [employer] [place] [address] Mv[facility], [facility] Mobile Home Draw [address] [employer] [place] [address] 05/19/2024 7:00 AM EDT Laboratory Lab Mobile Phlebot[facility] [address] [employer] [place] [address] [facility], [facility] [address] [facility] [place] [address] 05/26/2024 7:00 AM EDT Laboratory Lab [facility] Phlebotomy [facility] [address] [facility] [place], [place] [address] M[facility], [facility] Draw [address] [facility] [place], [place] [address] 05/29/2024 9:00 AM EDT [facility] Visit [facility], [facility] 132 [facility] [place] [address] Gustavo Begum PA-C 132 [facility] [place] [address] 06/02/2024 7:00 AM EDT Laboratory Lab Mobile Phlebotomy [facility] [address] [facility] [place], [place] [address] M[facility]mg, [facility] Draw [address] [facility] [place], [place] [address] 06/09/2024 7:00 AM EDT Laboratory Lab [facility]lebot[facility] [address] [facility] [place], [place] [address] M[facility], [facility] Draw [address] [facility] [place] [address] 06/16/2024 7:00 AM EDT Laboratory Lab [facility]bot[facility] [address] [facility] [place] [address] M[facility], [facility] Draw [address] [facility] [place] [address] 06/23/2024 7:00 AM EDT Laboratory Lab [facility]bot[facility] [address] [facility] [place] [address] M[facility]mg, [facility] Draw [address] [facility] [place], [place] [address] 06/29/2024 10:00 AM EDT Home Visit [facility], [facility] 132 [facility] [place] [address] Sandra Cullen RN [address] [place] [address] 06/30/2024 7:00 AM EDT Laboratory Lab [facility] Phlebot[facility] [address] [place] [address] Mvmg, [facility] Draw [address] [place] [address] 07/07/2024 7:00 AM EDT Laboratory Lab Mobile Phlebotomy [facility] [address] [employer] [place] [address] Mvmg, [facility] Draw [address] [place] [address] 07/14/2024 7:00 AM EDT Laboratory Lab Mobile Phlebotomy [facility] [address] [employer] [place] [address] Mvmg, [facility] Draw [address] [place] [address] 07/21/2024 7:00 AM EDT Laboratory Lab Mobile Phlebotomy [facility] [address] [employer] [place] [address] Mvmg, [facility] Mobile [facility] Draw [address] [place] [address] 07/28/2024 7:00 AM EDT Laboratory Lab Mobile Phlebotomy [facility] [address] [employer] [place] [address] Mvmg, [facility] Draw [address] [place] [address] 07/29/2024 11:30 AM EDT Home Visit [facility], [facility] [address] [place] [address] Sandra Cullen RN [address] [place] [address] 08/04/2024 7:00 AM EDT Laboratory Lab Mobile Phlebotomy [facility] [address] [employer] [place] [address] Mvmg, [facility] Draw [address] [place] [address] 08/10/2024 10:40 AM EST Office Visit [facility] 200 [place] [address] Angie Perez MD 200 [facility] [place] [address] 08/11/2024 7:00 AM EST Laboratory Lab Mobile Phlebotomy [facility] [address] [employer] [place] [address] Mvmg, [facility] Draw [address] [place] [address] 08/18/2024 7:00 AM EST Laboratory Lab Mobile Phlebotomy [facility] [address] [place] [address] Mvmg, [facility] Draw [address] [place] [address] 08/25/2024 7:00 AM EST Laboratory Lab Mobile Phlebotomy [facility] [address] [employer] [facility] [place] [address] Mvmg, [facility] Draw [address] [facility] [place] [address] 09/01/2024 7:00 AM EST Laboratory Lab Mobile Phlebotomy [facility] [address] [facility] [place] [address] Mvmg, [facility] Draw [address] [place] [address] 09/08/2024 7:00 AM EST Laboratory Lab Mobile Phlebotomy [facility] [address] [place] [address] Mvmg, [facility] Draw [address] [facility] [place] [address] 2024 7:00 AM EST Laboratory Lab Mobile Phlebotomy [facility] [address] [facility] [place] [address] Mvmg, [facility] Draw [address] [place] [address] 09/22/2024 7:00 AM EST Laboratory Lab Mobile Phlebotomy [facility] [address] [facility] [address] [place], [place] [address] Mvmg, [facility] Draw [address] [facility] [address] [place], [place] [address] 09/29/2024 7:00 AM EST Laboratory Lab Mobile Phlebotomy [facility] [address] [facility] [address] [place], [place] [address] Mvmg, [facility] Draw [address] [facility] [address] [place], [place] [address] 10/06/2024 7:00 AM EST Laboratory Lab Mobile Phlebotomy [facility] [address] [facility] [address] [place], [place] [address] Mvmg, [facility] Draw [address] [facility] [address] [place], [place] [address] Health Maintenance Due Date Last Done Comments [...] D LEVEL ONCE IN A LIFETIME-USE SMARTSET# [id number] Completed 05/31/2020, 11/25/2019, 08/06/2019, Additional history exists [...] Documents on File Type Date Recorded Patient Lawn Sprinkler Servicer Expl anation POLST 04/27/2024 8:38 AM OOH-DNR Advance Directives and Living Will 04/21/2024 10:30 AM POA and Living Will Healthcare Agents on File Name Relationship Healthcare Agent Relationship Communication Tank Haq Adult Child First Alternate Health Care Agent (per Health Care Power of Proration Clerk document) Jo-Ann Rose Adult Child First Alternate Health Care Agent (per Health Care Power of Proration Clerk document) [email or web address] Care Teams Graphic Design Specialist Relationship Specialty Start Date End Date Angie Perez MD [address] [place] [address] PCP - General Family Medicine 04/07/24 documented as of this encounter
--- OUTSIDE RECORDS SUMMARY | 2024-06-21 01:20 | External Medical Summary ---
Author Name Unknown Address Unknown Organization [facility] [address] [place] [address] Laboratory Report Ordering Provider Test Date Status IANADELAZOHREH 04/28/2024 07:46:00 Final Standing order for pt/inr. < br/>Please draw pt/inr every 1 to 4 weeks as requested
Results to [facility] Antico[facility]

Warfarin Therapy
INR: 2.0-3.0 conventional anticoagulation
INR: 2.5-3.5 high intensity anticoagulation Observation Date Value Abnormality Reference (Units ) Status PT 04/28/2024 07:46:00 26.8 Above high normal 11 .6-15.2 (seconds) Final INR 04/28/2024 07:46:00 2.4 Above high normal 0. 8-1.2 Final Performing Location [facility] [address] [place] [address]
--- OUTSIDE RECORDS SUMMARY | 2024-06-21 01:20 | External Medical Summary | Summary of Care ---
Author Name Unknown Organization [facility] Address [address] [place] [address] Phone [phone] Care Team Providers Care Slubber Frame Changer Name Role Phone Angie Perez MD Primary Care Provider [phone] Reason for Visit * Reason Onset Date Comments Appointment 05/19/2024 Encounter Details Date Type Department Care Team (Late st Contact Info) Description 05/19/2024 Telephone [facility] [place] [address] [place] [address] Services, Scheduling [address] [place] [address] Appointment Allergies Active Allergy Reactions Criticality Noted Date Comments Bacitracin Itching 02/20/2018 Ezetimibe 09/19/2008 Shellfish Allergy 03/25/2023 Sulfa Antibiotics 12/24/2017 Tramadol Itching 12/24/2017 documented as of this encounter (statuses as of 05/19/2024) Medications Medication Sig Dispensed Refills Start Date [...] mouth in the morning. Active Saline Nasal [place] 0.65 % Nasal Solution ([place]) Administer 1 [place] into nostril as needed for Congestion. 12/12/2023 [...] as of this encounter (statuses as of 05/19/2024) Active Problems Problem Noted Date Diagnosed Date [...] as of this encounter (statuses as of 05/19/2024) Resolved Problems Problem Noted Date Diagnosed Date [...] as of this encounter (statuses as of 05/19/2024) Immunizations Name Administration Dates Next Due COVID-19 mRNA, LNP-s, No Pre serve, 2-Dose Series (AppFog) 08/19/2021,12/26/2020,12/05/2020 COVID-19, MRNA-LNP, 23-24, P F, 30 [...] Telephone Encounter - Akil Morataya OSA - 05/19/2024 9:24 AM EDT Email request to reschedule RN visit 06/29. Appt changed to 07/06 at 4pm. Called and spoke with dtr Jo-Ann who confirmed appt change. documented in this encounter Plan of Treatment Upcoming Encounters Date Type Department Care Team (Late st Contact Info) Description 05/26/2024 7:00 AM EDT Laboratory Lab [facility] [address] [place] [address] [facility], [facility] [address] [place] [address] 05/27/2024 6:00 AM EDT Anticoagulation Centralized Clinical Pharmacy Services, Milli Breen [address] [place] [address] [place] [address] Ccps, [address] [place] [address] 05/29/2024 9:00 AM EDT [facility] [address] [facility] [place] [address] Gustavo Begum PA-C [address] [place] [address] 06/02/2024 7:00 AM EDT [facility] [address] [place] [address] [facility], [facility] [address] [place] [address] 06/09/2024 7:00 AM EDT Laboratory [facility] [address] [place] [address] M[facility], [facility] [address], [place] [address] 06/16/2024 7:00 AM EDT Laboratory [facility] [address] [place] [address] M[facility], [facility] [address], [place] [address] 06/23/2024 7:00 AM EDT Laboratory Lab [facility] [address] [place] [address] M[facility], [facility] [address] [facility] [place] [address] 06/30/2024 7:00 AM EDT Laboratory Lab [facility] [address] [facility] [place] [address] Mvmg, [facility] [address] [facility] [place] [address] 07/06/2024 4:00 PM EDT [facility] Visit [facility] [place] [address] [place] [address] Sandra Cullen RN [address] [place] [address] 07/07/2024 7:00 AM EDT Laboratory Lab [facility] [address] [place] [address] Mvmg, [facility] Draw [address] [place] [address] 07/14/2024 7:00 AM EDT Laboratory Lab [facility] [address] [place] [address] Mvmg, [facility] Draw [address] [place] [address] 07/21/2024 7:00 AM EDT Laboratory Lab [facility] [address] [facility] [place] [address] Mvmg, [facility] Draw [address] [place] [address] 07/28/2024 7:00 AM EDT Laboratory Lab [facility] [address] [place] [address] Mvmg, [facility] Draw [address] [place] [address] 07/29/2024 11:30 AM EDT [facility] Visit [facility] [address] [facility] [place] [address] Sandra Cullen RN [address] [place] [address] 08/04/2024 7:00 AM EDT Laboratory Lab [facility] [address] [place], [place] [address] M[facility], [facility] Draw [address] [facility] [place], [place] [address] 08/10/2024 10:40 AM EST Office Visit Family [facility] [address] [facility], [place] [address] Angie Perez MD [address] [place] [address] 08/11/2024 7:00 AM EST Laboratory Lab [facility] [address] [place] [address] [place], [place] [address] Mvmg, [facility] Draw [address] [facility] [place], [place] [address] 08/18/2024 7:00 AM EST Laboratory Lab [facility]bot[facility] [address] [place] [address] [place], [place] [address] Mvmg, [facility] Draw [address] [facility] [place], [place] [address] 08/25/2024 7:00 AM EST Laboratory Lab [facility] [address] [place], [place] [address] Mvmg, [facility] Draw [address] [facility] [place], [place] [address] 09/01/2024 7:00 AM EST Laboratory Lab [facility]bot[facility] [address] [place] [address] [place], [place] [address] Mvmg, [facility] Draw [address] [facility] [place], [place] [address] 09/08/2024 7:00 AM EST Laboratory [facility] [address] [place], [place] [address] Mvmg, [facility] Draw [address] [place] [address] 2024 7:00 AM EST Laboratory [facility] [address] [place] [address] Mv[facility], [facility] [address] [place] [address] 09/22/2024 7:00 AM EST Laboratory [facility] [address] [place] [address] Mvmg, [facility] [address] [place] [address] 09/29/2024 7:00 AM EST Laboratory Lab [facility]le[facility] [address] [place], [place] [address] Mvmg, [facility] Draw [address] [place] [address] 10/06/2024 7:00 AM EST Laboratory Lab [facility] Phlebot[facility] [address] [place] [address] Mvmg, [facility] Draw [address] [facility] [place] [address] Health Maintenance Due Date Last Done Comments [...] D LEVEL ONCE IN A LIFETIME-USE SMARTSET# [id number] Completed 05/31/2020, 11/25/2019, 08/06/2019, Additional history exists [...] Documents on File Type Date Recorded Patient Decal Applier Expl anation POLST 04/27/2024 8:38 AM OOH-DNR Advance Directives and Living Will 04/21/2024 10:30 AM POA and Living Will Healthcare Agents on File Name Relationship Healthcare Agent Relationship Communication Tank Haq Adult Child First Alternate Health Care Agent (per Health Care Power of Top Lifter document) Jo-Ann Rose Adult Child First Alternate Health Care Agent (per Health Care Power of Top Lifter document) [email or web address] Care Teams Slubber Frame Changer Relationship Specialty Start Date End Date Angie Perez MD [address] [place] [address] PCP - General Family Medicine 04/07/24 documented as of this encounter
--- OUTSIDE RECORDS SUMMARY | 2024-06-21 01:20 | External Medical Summary ---
Author Name Unknown Address Unknown Organization [facility] [address] [place] [address] Laboratory Report Ordering Provider Test Date Status IANADELAZOHREH 05/05/2024 07:49:00 Final Standing order for pt/inr. < br/>Please draw pt/inr every 1 to 4 weeks as requested
Results to [facility]

Warfarin Therapy
INR: 2.0-3.0 conventional anticoagulation
INR: 2.5-3.5 high intensity anticoagulation Observation Date Value Abnormality Reference (Units ) Status PT 05/05/2024 07:49:00 28.9 Above high normal 11 .6-15.2 (seconds) Final INR 05/05/2024 07:49:00 2.7 Above high normal 0. 8-1.2 Final Performing Location [facility] [address] [place] [address]
--- OUTSIDE RECORDS SUMMARY | 2024-06-21 01:20 | External Medical Summary | Summary of Care ---
Author Name Unknown Organization [facility] Address [address] [place] [address] Phone [phone] Care Team Providers Care Sharepoint Trainer Name Role Phone Angie Perez MD Primary Care Provider [phone] Reason for Visit * Reason Comments Dosage Adjustment Via Phone (anticoag Cl inic) Encounter Details Date Type Department Care Team (Late st Contact Info) Description 05/13/2024 6:00 AM EDT Anticoagulation Centralized Clinical Pharmacy Services, Milli Breen [address] [place] [address] [place] [address] [place] [address] Anticoagulation management encounter* Allergies Active Allergy Reactions Criticality Noted Date Comments Bacitracin Itching 02/20/2018 Ezetimibe 09/19/2008 Shellfish Allergy 03/25/2023 Sulfa Antibiotics 12/24/2017 Tramadol Itching 12/24/2017 documented as of this encounter (statuses as of 05/13/2024) Medications Medication Sig Dispensed Refills Start Date [...] mouth in the morning. Active Saline Nasal [place] 0.65 % Nasal Solution ([place]) Administer 1 [place] into nostril as needed for Congestion. 12/12/2023 [...] as of this encounter (statuses as of 05/13/2024) Active Problems Problem Noted Date Diagnosed Date [...] as of this encounter (statuses as of 05/13/2024) Resolved Problems Problem Noted Date Diagnosed Date [...] as of this encounter (statuses as of 05/13/2024) Immunizations Name Administration Dates Next Due COVID-19 mRNA, LNP-s, No Pre serve, 2-Dose Series (Smart Destinations) 08/19/2021,12/26/2020,12/05/2020 COVID-19, MRNA-LNP, 23-24, P F, 30 MCG/0.3 mL, 12 YRS AND ABOVE, IM (SoMoLend-Comirnat) 03/05/2024 Covid-19, Mrna, Lnp-s, Pf, B ivalent, [...] this encounter Progress Notes * Juliana Bar, materials mgmt tech - 05/13/2024 8:30 AM EDT Contacts Type Contact Phone/Fax 05/13/2024 08:27 AM EDT Phone (Outgoing) Analy Haq (Self) [phone] (H) spoke to Jo-Ann Subjective Patient Findings [...] as noted by Pharmacist: Yes THAD COSBY 05/13/2024, 8:30 AM * Julissa Jean RPh - 05/12/2024 4:05 PM EDT Coumadin Clinic (region specific) Objective Current Warfarin Dose As of 05/13/2024 Warfarin maintenance plan: 5 mg (1 mg x 5) every Mon, Wed, Fri; 3 mg (1 mg x 3) all other days INR Result As of 05/13/2024 INR goal: 2.0-3.0 INR used for dosin.6 (05/12/2024) Assessment & Plan Warfarin Plan As of 05/13/2024 Full warfarin instructions: 5 mg every Mon, Wed, Fri; 3 mg all other days No change documented: Julissa Jean RPh Next INR check: 05/26/2024 Repeat PT/INR in 2 week(s) Weekly dose: not changed Additional Dosing Information: Description [facility] to contact patient with dose instructions as noted. Julissa Jean RPh 05/12/2024, 4:05 PM documented in this encounter Plan of Treatment Upcoming Encounters Date Type Department Care Team (Late st Contact Info) Description 05/19/2024 7:00 AM EDT Laboratory Lab [facility] Phlebot[facility] [address] [place] [address] Mv[facility], [facility] Mobile Home Draw [address] [place] [address] 05/26/2024 7:00 AM EDT Laboratory Lab [facility] Phlebot[facility] [address] [place], [place] [address] Mvmg, [facility] Mobile Home Draw [address] [place] [address] 05/27/2024 6:00 AM EDT Anticoagulation Centralized Clinical Pharmacy Services, Milli Breen [address] [place] [address] [place] [address] Ccps, [address] [place] [address] 05/29/2024 9:00 AM EDT [facility], [facility] [address] [place] [address] Gustavo Begum PA-C [address] [place] [address] 06/02/2024 7:00 AM EDT Laboratory Lab Mobile Phlebotomy [facility] [address] [place] [address] Mvmg, [facility] Draw [address] [place], [place] [address] 06/09/2024 7:00 AM EDT Laboratory Lab [facility] Phlebotomy [facility] [address] [employer] [place] [address] Mvmg, [facility] Mobile Home Draw [address] [place], [place] [address] 06/16/2024 7:00 AM EDT Laboratory Lab [facility]bot[facility] [address] [employer] [place] [address] Mvmg, [facility] Mobile [facility] Draw [address] [place] [address] 06/23/2024 7:00 AM EDT Laboratory Lab [facility] Phlebot[facility] [address] [employer] [address] [address] [address] Mvmg, [facility] Mobile [facility] Draw [address] [place], [place] [address] 06/29/2024 10:00 AM EDT [facility] Visit [facility], [facility] [address] [facility] [address] Sandra Cullen RN 132 [facility] [place] [address] 06/30/2024 7:00 AM EDT Laboratory Lab [facility]bot[facility] [address] [place] [address] Mvmg, [facility] Draw [address] [facility] [place] [address] 07/07/2024 7:00 AM EDT Laboratory Lab [facility] Phlebot[facility] [address] [place] [address] Mvmg, [facility] Mobile [facility] Draw [address] [place] [address] 07/14/2024 7:00 AM EDT Laboratory Lab [facility]le[facility] [address] [place] [address] Mvmg, [facility] Mobile Home Draw [address] [place] [address] 07/21/2024 7:00 AM EDT Laboratory Lab Mobile Phlebotomy [facility] [address] [employer] [facility] [place] [place] [address] Mvmg, Gml Mobile Home Draw [address] [place] [address] 07/28/2024 7:00 AM EDT Laboratory Lab Mobile Phlebot[facility] [address] [place] [address] Mvmg, [facility] Mobile [facility] Draw [address] [place] [address] 07/29/2024 11:30 AM EDT Home Visit [facility], [facility] [address] [facility] [address] Sandra Cullen RN [address] [place] [address] 08/04/2024 7:00 AM EDT Laboratory Lab Mobile Phlebotomy [facility] [address] [place], [place] [address] Mvmg, [facility] Draw [address] [place], [place] [address] 08/10/2024 10:40 AM EST Office Visit Family [facility] [place] [address] [facility] [place], [place] [address] Angie Perez MD [address] [facility] [place] [address] 08/11/2024 7:00 AM EST Laboratory Lab [facility] Phlebotomy [facility] [address] [place], [place] [address] Mvmg, [facility] Mobile [facility] Draw [address] [place], [place] [address] 08/18/2024 7:00 AM EST Laboratory Lab [facility] Phlebot[facility] [address] [place] [address] Mvmg, Gml Mobile Home Draw [address] [facility] [place] [place] [address] 08/25/2024 7:00 AM EST Laboratory Lab [facility] Phlebotomy [facility] [address] [place] [address] Mvmg, G[facility] Mobile Home Draw [address] [place] [address] 09/01/2024 7:00 AM EST Laboratory Lab Mobile Phlebotomy [facility] [address] [place] [address] Mvmg, [facility] Mobile Home Draw [address] [place] [address] 09/08/2024 7:00 AM EST Laboratory Lab Mobile Phlebotomy [facility] [address] [place] [address] Mvmg, [facility] Home Draw [address] [place] [address] 2024 7:00 AM EST Laboratory Lab [facility] Phlebotomy [facility] [address] [place] [address] Mvmg, G[facility] Mobile [facility] Draw [address] [place] [address] 09/22/2024 7:00 AM EST Laboratory Lab Mobile Phlebotomy [facility] [address] [place] [address] Mvmg, Gml Mobile Home Draw [address] [facility] [place] [place] [address] 09/29/2024 7:00 AM EST Laboratory Lab Mobile Phlebotomy [facility] [address] [place] [address] Mvmg, Gml Mobile Home Draw [address] 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 POLST 04/27/2024 8:38 AM OOH-DNR Advance Directives and Living Will 04/21/2024 10:30 AM POA and Living Will Healthcare Agents on File Name Relationship Healthcare Agent Relationship Communication Tank Haq Adult Child First Alternate Health Care Agent (per Health Care Power of Track Greaser document) Jo-Ann Rose Adult Child First Alternate Health Care Agent (per Health Care Power of Track Greaser document) [email or web address] Care Teams Sharepoint Trainer Relationship Specialty Start Date End Date Angie Perez MD [address] [facility] [place] [address] PCP - General Family Medicine 04/07/24 documented as of this encounter
--- OUTSIDE RECORDS SUMMARY | 2024-06-21 01:20 | External Medical Summary | Summary of Care ---
Author Name Unknown Organization [facility] Address [address] [place] [address] Phone [phone] Care Team Providers Care Dental Treatment Coordinator Name Role Phone Angie Perez MD Primary Care Provider [phone] Reason for Visit * Reason Comments Dosage Adjustment Via Phone (anticoag Cl inic) Encounter Details Date Type Department Care Team (Late st Contact Info) Description 04/29/2024 6:00 AM EDT Anticoagulation Centralized Clinical Pharmacy Services, Milli Breen [address] [place] [address] [place] [address] [place] [address] Anticoagulation management encounter* Allergies Active Allergy Reactions Criticality Noted Date Comments Bacitracin Itching 02/20/2018 Ezetimibe 09/19/2008 Shellfish Allergy 03/25/2023 Sulfa Antibiotics 12/24/2017 Tramadol Itching 12/24/2017 documented as of this encounter (statuses as of 04/29/2024) Medications Medication Sig Dispensed Refills Start Date [...] mouth in the morning. Active Saline Nasal Burns 0.65 % Nasal Solution (Mcdowell) Administer 1 Burns into nostril as needed for Congestion. 12/12/2023 [...] as of this encounter (statuses as of 04/29/2024) Active Problems Problem Noted Date Diagnosed Date [...] as of this encounter (statuses as of 04/29/2024) Resolved Problems Problem Noted Date Diagnosed Date [...] as of this encounter (statuses as of 04/29/2024) Immunizations Name Administration Dates Next Due COVID-19 mRNA, LNP-s, No Pre serve, 2-Dose Series (TrenStar) 08/19/2021,12/26/2020,12/05/2020 COVID-19, MRNA-LNP, 23-24, P F, 30 MCG/0.3 mL, 12 YRS AND ABOVE, IM (Yard Club-Comirnat) 03/05/2024 Covid-19, Mrna, Lnp-s, Pf, B ivalent, [...] as of this encounter Progress Notes * Tova Lemus, [facility] - 04/29/2024 10:14 AM EDT Contacts Type Contact Phone/Fax 04/29/2024 10:13 AM EDT Phone (Outgoing) Jo-Ann Rose (Emergency Contact) [phone] (H) Spoke to Patient Subjective Patient Findings Negatives: Signs/symptoms of thrombosis, Signs/symptoms of bleeding, Change in health, Change in alcohol use, Change in activity, Upcoming invasive procedure, Missed doses, Extra doses, Change in medications, Change in diet/appetite, Bruising Advised patient to contact Anticoagulation Clinic if any unusual bruising or bleeding, recent illness, changes in medication, or questions/concerns. PT/INR results, Coumadin dose instructions, and next PT/INR date communicated as noted by Pharmacist: Yes TOVA LEMUS CPhT 04/29/2024, 10:14 AM * Erica Lucas RPh - 04/29/2024 8:42 AM EDT Coumadin Clinic (region specific) Objective Current Warfarin Dose As of 04/29/2024 Warfarin maintenance plan: 5 mg (1 mg x 5) every Mon, Wed, Fri; 3 mg (1 mg x 3) all other days INR Result As of 04/29/2024 INR goal: 2.0-3.0 INR used for dosin.4 (04/28/2024) Assessment & Plan Warfarin Plan As of 04/29/2024 Full warfarin instructions: 5 mg every Mon, Wed, Fri; 3 mg all other days No change documented: Erica Lucas RPh Next INR check: 05/05/2024 Repeat PT/INR in 1 week(s) Weekly dose: not changed Additional Dosing Information: Description [facility] Tech to contact patient with dose instructions as noted. Erica Lucas RPh 04/29/2024, 8:42 AM documented in this encounter Plan of Treatment Upcoming Encounters Date Type Department Care Team (Late st Contact Info) Description 05/05/2024 7:00 AM EDT Laboratory Lab Mobile Phlebotomy [facility] [address] [place] [address] M[facility], [facility] Mobile Home Draw [address] [place] [address] 05/06/2024 6:00 AM EDT Anticoagulation Centralized Clinical Pharmacy Services, Milli Breen [address] [place] [address] [place] [address] [facility], [address] [place] [address] 05/12/2024 7:00 AM EDT Laboratory Lab [facility] Phlebot[facility] [address] [place] [address] M[facility], [facility] [address] [place] [address] 05/19/2024 7:00 AM EDT Laboratory Lab Mobile Phlebotomy [facility] [address] [place] [address] [facility], [facility] [address] [place] [address] 05/26/2024 7:00 AM EDT Laboratory Lab Mobile Phlebotomy [facility] [address] [place] [address] M[facility], [facility] [address] [place] [address] 05/29/2024 9:00 AM EDT [facility], [facility] [place] [address] Gustavo Begum PA-C [address] [place] [address] 06/02/2024 7:00 AM EDT Laboratory Lab Mobile Phlebotomy [facility] [address] [place] [address] M[facility], [facility] [address] [place] [address] 06/09/2024 7:00 AM EDT Laboratory Lab Mobile Phlebotomy [facility] [address] [place] [address] Mvmg, [facility] [address] [place] [address] 06/16/2024 7:00 AM EDT Laboratory Lab Mobile Phlebotomy [facility] [address] [facility] [place], [place] [address] Mvmg, [facility] Draw [address] [facility] [place], [place] [address] 06/23/2024 7:00 AM EDT Laboratory Lab Mobile Phlebotomy [facility] [address] [facility] [place] [address] M[facility]mg, [facility] Draw [address] [place] [address] 06/29/2024 10:00 AM EDT [facility] [place] [address] Sandra Cullen RN [address] [place] [address] 06/30/2024 7:00 AM EDT Laboratory Lab Mobile Phlebotomy [facility] [address] [facility] [place], [place] [address] Mvmg, [facility] Draw [address] [facility] [place], [place] [address] 07/07/2024 7:00 AM EDT Laboratory Lab Mobile Phlebotomy [facility] [address] [place], [place] [address] Mvmg, [facility] Draw [address] [place] [address] 07/14/2024 7:00 AM EDT Laboratory Lab Mobile Phlebotomy [facility] [address] [facility] [place], [place] [address] Mvmg, [facility] Draw [address] [place] [address] 07/21/2024 7:00 AM EDT Laboratory Lab Mobile Phlebotomy [facility] [address] [facility] [place], [place] [address] Mvmg, [facility] Draw [address] [facility] [place], [place] [address] 07/28/2024 7:00 AM EDT Laboratory Lab Mobile Phlebotomy [facility] [address] [place] [address] Mvmg, [facility] Draw [address] [place] [address] 07/29/2024 11:30 AM EDT Home Visit [facility] [address] [place] [address] Sandra Cullen RN [address] [place] [address] 08/04/2024 7:00 AM EDT Laboratory Lab Mobile Phlebotomy [facility] [address] [place] [address] Mvmg, [facility] Draw [address] [place] [address] 08/10/2024 10:40 AM EST Office Visit [facility] [address] [facility] [place], [place] [address] Angie Perez MD [address] [facility] [place], [place] [address] 08/11/2024 7:00 AM EST Laboratory Lab Mobile Phlebotomy [facility] [address] [place], [place] [address] Mvmg, [facility] [address] [place], [place] [address] 08/18/2024 7:00 AM EST Laboratory Lab Mobile Phlebotomy [facility] [address] [place] [address] Mvmg, [facility] Draw [address] [place], [place] [address] 08/25/2024 7:00 AM EST Laboratory Lab Mobile Phlebotomy [facility] [address] [place], [place] [address] Mvmg, [facility] Draw [address] [place], [place] [address] 09/01/2024 7:00 AM EST Laboratory Lab Mobile Phlebotomy [facility] [address]20 [facility] [place] [address] Mvmg, [facility] Draw [address] [place] [address] 09/08/2024 7:00 AM EST Laboratory Lab Mobile Phlebotomy [facility] [address] [place] [address] Mvmg, [facility] Draw [address] [facility] [place] [address] 2024 7:00 AM EST Laboratory Lab Mobile Phlebotomy [facility] [address] [facility] [place] [address] Mvmg, [facility] Draw [address] [facility] [place] [address] 09/22/2024 7:00 AM EST Laboratory Lab Mobile Phlebotomy [facility] [address] [facility] [place] [address] Mvmg, [facility] Draw [address] [facility] [place] [address] 09/29/2024 7:00 AM EST Laboratory Lab Mobile Phlebotomy [facility] [address] [facility] [place] [address] Mvmg, [facility] Draw [address] [facility] [place] [address] 10/06/2024 7:00 AM EST Laboratory Lab Mobile Phlebotomy [facility] [address] [facility] [place] [address] Mvmg, [facility] Draw [address] [facility] [place] [address] Health Maintenance Due Date Last Done Comments [...] D LEVEL ONCE IN A LIFETIME-USE SMARTSET# [id number] Completed 05/31/2020, 11/25/2019, 08/06/2019, Additional history exists [...] Documents on File Type Date Recorded Patient Edge Bonder Expl [email or web address] POLST 04/27/2024 8:38 AM OOH-DNR Advance Directives and Living Will 04/21/2024 10:30 AM POA and Living Will Healthcare Agents on File Name Relationship Healthcare Agent Relationship Communication Tank Haq Adult Child First Alternate Health Care Agent (per Health Care Power of Sales Expert document) Jo-Ann Rose Adult Child First Alternate Health Care Agent (per Health Care Power of Sales Expert document) [email or web address] Care Teams Dental Treatment Coordinator Relationship Specialty Start Date End Date Angie Perez MD [address] [facility] [place] [address] PCP - General Family Medicine 04/07/24 documented as of this encounter
--- OUTSIDE RECORDS SUMMARY | 2024-06-21 01:20 | External Medical Summary ---
Author Name Unknown Address Unknown Organization [facility] [address] [place] [address] Laboratory Report Ordering Provider Test Date Status IANRAYSA 05/12/2024 07:51:00 Final Standing order for pt/inr. < br/>Please draw pt/inr every 1 to 4 weeks as requested
Results to [facility] Anticoagulation [facility]

Warfarin Therapy
INR: 2.0-3.0 conventional anticoagulation
INR: 2.5-3.5 high intensity anticoagulation Observation Date Value Abnormality Reference (Units ) Status PT 05/12/2024 07:51:00 27.8 Above high normal 11 .6-15.2 (seconds) Final INR 05/12/2024 07:51:00 2.6 Above high normal 0. 8-1.2 Final Performing Location [facility] [address] [place] [address]
--- OUTSIDE RECORDS SUMMARY | 2024-06-21 01:20 | External Medical Summary | Summary of Care ---
Author Name Unknown Organization [facility] Address [address] [place] [address] Phone [phone] Care Team Providers Care Network Engineer Administrator Name Role Phone Angie Perez MD Primary Care Provider [phone] Reason for Visit * Reason Onset Date Comments Information 04/16/2024 Encounter Details Date Type Department Care Team (Late st Contact Info) Description 04/16/2024 9:30 AM EDT Scheduled Telephone [facility], [facility] 132 [facility] [place] [address] Coordinator, [facility] 132 [facility] [place] [address] Allergies Active Allergy Reactions Criticality Noted Date [...] mouth in the morning. Active Saline Nasal Kake 0.65 % Nasal Solution (Dickenson) Administer 1 Kake into nostril as needed for Congestion. 12/12/2023 [...] mRNA, LNP-s, No Pre serve, 2-Dose Series (Glanse) 08/19/2021,12/26/2020,12/05/2020 COVID-19, MRNA-LNP, 23-24, P F, 30 [...] Mobile Phlebotomy [facility] [address] [place] [address] Mvmg, [facility] Draw [address] [place] [address] 04/24/2024 6:00 AM EDT Anticoagulation Centralized Clinical Pharmacy Services, Milli Breen [address] [place] [address] [place] [address] [facility], [address] [place] [address] 04/28/2024 7:00 AM EDT Laboratory Lab Mobile Phlebotomy [facility] [address] [place], [place] [address] Mvmg, [facility] Draw [address] [place], [place] [address] 05/05/2024 7:00 AM EDT Laboratory Lab Mobile Phlebotomy [facility] [address] [employer] [address] [place], [place] [address] Mvmg, [facility] Draw [address] [place] [address] 05/12/2024 7:00 AM EDT Laboratory Lab Mobile Phlebotomy [facility] [address] [place] [address] Mvmg, [facility] Draw [address] [place] [address] 05/19/2024 7:00 AM EDT Laboratory Lab Mobile Phlebotomy [facility] [address] [place], [place] [address] Mvmg, [facility] Draw [address] [place] [address] 05/26/2024 7:00 AM EDT Laboratory Lab Mobile Phlebotomy [facility] [address] [place] [address] Mvmg, [facility] Draw [address] [place] [address] 05/29/2024 9:00 AM EDT Home Visit [facility], [facility] [address] [place] [address] Gustavo Begum PA-C [address] [place] [address] 06/02/2024 7:00 AM EDT Laboratory Lab Mobile Phlebotomy [facility] [address] [place] [address] Mvmg, [facility] Draw [address] [facility] [place] [address] 06/09/2024 7:00 AM EDT Laboratory Lab Mobile Phlebotomy [facility] [address] [facility] [place] [address] Mvmg, [facility] Draw [address] [facility] [place] [address] 06/16/2024 7:00 AM EDT Laboratory Lab Mobile Phlebotomy [facility] [address] [place] [address] M[facility]mg, [facility] Draw [address] [facility] [place] [address] 06/23/2024 7:00 AM EDT Laboratory Lab Mobile Phlebotomy [facility] [address] [facility] [place] [address] Mvmg, [facility] Draw [address] [facility] [place] [address] 06/29/2024 10:00 AM EDT [facility] 132 [facility] [place] [address] Sandra Cullen, RN [address] [place] [address] 06/30/2024 7:00 AM EDT Laboratory Lab Mobile Phlebotomy [facility] [address] [facility] [place] [address] Mvmg, [facility] [address] [facility] [place] [address] 07/07/2024 7:00 AM EDT Laboratory Lab Mobile Phlebotomy [facility] [address] [place] [address] Mvmg, [facility] Draw [address] [place] [address] 07/14/2024 7:00 AM EDT Laboratory Lab Mobile Phlebotomy [facility] [address] [place], [place] [address] Mvmg, [facility] Draw [address] [place], [place] [address] 07/21/2024 7:00 AM EDT Laboratory Lab Mobile Phlebotomy [facility] [address] [facility] [place], [place] [address] Mvmg, [facility] Draw [address] [facility] [place] [address] 07/28/2024 7:00 AM EDT Laboratory Lab Mobile Phlebotomy [facility] [address] [facility] [place], [place] [address] Mvmg, [facility] Draw [address] [facility] [place], [place] [address] 07/29/2024 11:30 AM EDT Home Visit [facility] [address] Sandra Cullen, RN [address] [facility] [place] [address] 08/04/2024 7:00 AM EDT Laboratory Lab Mobile Phlebotomy [facility] [address] [place], [place] [address] Mvmg, [facility] Draw [address] [facility] [place], [place] [address] 08/10/2024 10:40 AM EST Office Visit [facility] 200 [facility] [place] [address] Angie Perez MD [address] [facility] [place] [address] 08/11/2024 7:00 AM EST Laboratory Lab Mobile Phlebotomy [facility] [address] [place], [place] [address] Mvmg, [facility] Draw [address] [facility] [place] [address] 08/18/2024 7:00 AM EST Laboratory Lab Mobile Phlebotomy [facility] [address] [place] [address] M[facility], [facility] [address] [place] [address] 08/25/2024 7:00 AM EST Laboratory Lab [facility] Phlebot[facility] [address] [place] [address] Mvmg, [facility] Draw [address] [facility] [place] [address] 09/01/2024 7:00 AM EST Laboratory Lab Mobile Phlebotomy [facility] [address] [place] [address] Mvmg, [facility] Draw [address] [place] [address] 09/08/2024 7:00 AM EST Laboratory Lab Mobile Phlebotomy [facility] [address] [place] [address] Mvmg, [facility] Draw [address] [facility] [place] [address] 2024 7:00 AM EST Laboratory Lab Mobile Phlebotomy [facility] [address] [place] [address] Mvmg, [facility] Draw [address] [place] [address] 09/22/2024 7:00 AM EST Laboratory Lab Mobile Phlebotomy [facility] [address] [place] [address] Mvmg, [facility] Draw [address] [facility] [place] [address] 09/29/2024 7:00 AM EST Laboratory Lab Mobile Phlebotomy [facility] [address] [place] [address] Mvmg, [facility] Draw [address] [place] [address] 10/06/2024 7:00 AM EST Laboratory Lab Mobile Phlebotomy [facility] [address] [place] [address] Mvmg, [facility] Draw [address] [place], [place] [address] Health Maintenance Due Date Last Done Comments [...] D LEVEL ONCE IN A LIFETIME-USE SMARTSET# [id number] Completed 05/31/2020, 11/25/2019, 08/06/2019, Additional history exists [...] Care Agent (per Health Care Power of Ginner Helper document) Jo-Ann Rose Adult Child First Alternate Health Care Agent (per Health Care Power of Ginner Helper document) [email or web address] Care Teams Network Engineer Administrator Relationship Specialty Start Date End Date Perez, Angie, MD [address] [place] [address] PCP - General Family Medicine 04/07/24 documented as of this encounter
--- OUTSIDE RECORDS SUMMARY | 2024-06-21 01:20 | External Medical Summary | Summary of Care ---
Author Name Unknown Organization [facility] Address [address] [place] [address] Phone [phone] Care Team Providers Care Bilingual Student Tutor Name Role Phone Angie Perez MD Primary Care Provider [phone] Reason for Visit * Reason Onset Date Comments [facility]: Maintenance 05/21/2024 Encounter Details Date Type Department Care Team (Late st Contact Info) Description 05/21/2024 Telephone [facility], [facility] [address] [place] [address] [facility], Nurse [facility] [address] [place] [address] [facility]: Maintenance Allergies Active Allergy [...] mouth in the morning. Active Saline Nasal [place] 0.65 % Nasal Solution ([place]) Administer 1 [place] into nostril as needed for Congestion. 12/12/2023 [...] mRNA, LNP-s, No Pre serve, 2-Dose Series ([employer]) 08/19/2021,12/26/2020,12/05/2020 COVID-19, MRNA-LNP, 23-24, P F, 30 MCG/0.3 mL, 12 YRS AND ABOVE, IM ([employer]) 03/05/2024 Covid-19, Mrna, Lnp-s, Pf, B [...] Encounter - Mag Matos RN - 05/21/2024 1:51 PM EDT Images from the original note were not included. PC received from [facility] reporting to [facility] that patients buttocks wound has reopened She reports a couple "clustered spots" and 1 "spot" in the gluteal fold measuring 4.5 x 0.2 Per HH nurse entire wound measures 4.5 x 5 cm HH nurse reports no s/s of infection,odor,or blood Reports some scant clear drainage Vitals per HH nurse T-97.4, HR 86, RR 14, BP 128/80, O2sat 96% RA HH nurse states patient is sitting in chair unable to obtain pic at this time States she can place request for HV on Saturday with pics HH nurse requesting order for calmoseptine Advised calmoseptine was ordered on 04/13/24 with 1 refill DTR states in background she did not use the refill and will call [facility] Advised DTR if she can obtain pic before HH does on Saturday to call [facility] for the pic to be placed in the chart. DTR and HH aware it is very difficult to place wound recommendations w/o a picture Per chart review looks like patient saw wound clinic in the past Previous pic of buttocks wound TT sent to [facility] chief crew scheduler Teri Romeo to check SELENE availability to obtain new comparison buttocks wound pic 05/22/23 with request to reach out to patients DTGisella camacho to coordinate appt Mag Matos RN, BSN [facility] crystallizer operatorLevel Designer documented in this encounter Plan of Treatment Upcoming Encounters Date Type Department Care Team (Late st Contact Info) Description 05/26/2024 7:00 AM EDT [facility] Phle[facility] [address] [place] [address] [facility], [facility] [address] [place] [address] 05/27/2024 6:00 AM EDT Anticoagulation [facility], Milli Breen [address] [place] [address] [place] [address] [facility] [place] [address] 05/29/2024 9:00 AM EDT Home Visit [facility], [facility] [address] [facility] [place] [address] Gustavo Begum PA-C [address] [place], [place] [address] 06/02/2024 7:00 AM EDT Laboratory [facility] Phlebot[facility] [address] [place] [address] [facility], [facility] Draw [address] [place] [address] 06/09/2024 7:00 AM EDT Laboratory Lab Mobile Phlebotomy [facility] [address] [place] [address] [facility], [facility] Draw [address] [place] [address] 06/16/2024 7:00 AM EDT Laboratory Lab Mobile Phlebotomy [facility] [address] [place] [address] [facility], [facility] Draw [address] [place] [address] 06/23/2024 7:00 AM EDT Laboratory Lab Mobile Phlebotomy [facility] [address] [place] [address] [facility], [facility] Draw [address] [place] [address] 06/30/2024 7:00 AM EDT Laboratory Lab Mobile Phlebotomy [facility] [address] [place] [address] [facility], [facility] Home Draw [address] [place] [address] 07/06/2024 4:00 PM EDT Home Visit [facility], [facility] [address] [place], [place] [address] Sandra Cullen, RN [address] [place] [address] 07/07/2024 7:00 AM EDT Laboratory Lab Mobile Phlebotomy [facility] [address] [place] [address] [facility], [facility] Draw [address] [place], [place] [address] 07/14/2024 7:00 AM EDT Laboratory Lab Mobile Phlebotomy [facility] [address] [place] [address] [facility], [facility] Draw [address] [place] [address] 07/21/2024 7:00 AM EDT Laboratory Lab Mobile Phlebotomy [facility] [address] [place], [place] [address] [facility], [facility] Draw [address] [place] [address] 07/28/2024 7:00 AM EDT Laboratory Lab Mobile Phlebotomy [facility] [address] [place], [place] [address] [facility], [facility] Draw [address] [facility] [place] [address] 07/29/2024 11:30 AM EDT Home Visit [facility] 132 [facility] [place] [address] Sandra Cullen, RN [address] [facility] [place] [address] 08/04/2024 7:00 AM EDT Laboratory Lab Mobile Phlebotomy [facility] [address] [place] [address] [facility], [facility] Draw [address] [facility] [place] [address] 08/10/2024 10:40 AM EST Office [facility] [place] [address] [place], [place] [address] Angie Perez MD [address] [place] [address] 08/11/2024 7:00 AM EST Laboratory Lab Mobile Phlebotomy [facility] [address] [facility] [place] [address] [facility], [facility] Draw [address] [place] [address] 08/18/2024 7:00 AM EST Laboratory Lab Mobile Phlebotomy [facility] [address] [place] [address] [facility], [facility] Draw [address] [place] [address] 08/25/2024 7:00 AM EST Laboratory Lab Mobile Phlebotomy [facility] [address] [facility] [place] [address] [facility], [facility] Draw [address] [place] [address] 09/01/2024 7:00 AM EST Laboratory Lab Mobile Phlebotomy [facility] [address] [place] [address] [facility], [facility] Draw [address] [place] [address] 09/08/2024 7:00 AM EST Laboratory Lab Mobile Phlebotomy [facility] [address] [place] [address] [facility], [facility] Draw [address] [place] [address] 2024 7:00 AM EST Laboratory Lab Mobile Phlebotomy [facility] [address] [facility] [place] [address] M[facility], Gml Mobile Home Draw [address] [place] [address] 09/22/2024 7:00 AM EST Laboratory Lab Mobile Phlebotomy [facility] [address] [facility] [place] [address] M[facility], Gml [facility] Home Draw [address] [place] [address] 09/29/2024 7:00 AM EST Laboratory Lab Mobile Phlebotomy [facility] [address] [facility] [place] [address] M[facility], G[facility] Draw [address] [facility] [place] [address] 10/06/2024 7:00 AM EST Laboratory Lab Mobile Phlebotomy [facility] [address] [facility] [place], [place] [address] M[facility], Gml [facility] Draw [address] [facility] [place], [place] [address] Health Maintenance Due Date Last Done Comments [...] D LEVEL ONCE IN A LIFETIME-USE SMARTSET# [id number] Completed 05/31/2020, 11/25/2019, 08/06/2019, Additional history exists [...] Documents on File Type Date Recorded Patient Drawer Waxer Expl anation POLST 04/27/2024 8:38 AM OOH-DNR Advance Directives and Living Will 04/21/2024 10:30 AM POA and Living Will Healthcare Agents on File Name Relationship Healthcare Agent Relationship Communication Tank Haq Adult Child First Alternate Health Care Agent (per Health Care Power of Vacuum Closing Machine Operator document) Jo-Ann Rose Adult Child First Alternate Health Care Agent (per Health Care Power of Vacuum Closing Machine Operator document) [email or web address] Care Teams Bilingual Student Tutor Relationship Specialty Start Date End Date Angie Perez MD [address] [place] [address] PCP - General Family Medicine 04/07/24 documented as of this encounter
--- OUTSIDE RECORDS SUMMARY | 2024-06-21 01:21 | External Medical Summary | Summary of Care ---
Author Name Unknown Organization [facility] Address [address] [place] [address] Phone [phone] Care Team Providers Care Pharmaceutical Service Representative Name Role Phone Angie Perez MD Primary Care Provider [phone] Reason for Visit * Reason Onset Date Comments Information 04/14/2024 Encounter Details Date Type Department Care Team (Late st Contact Info) Description 04/14/2024 Telephone [facility], [facility] [address] [place] [address] Services, Scheduling [address] [place] [address] Information Allergies Active Allergy Reactions Criticality Noted Date Comments Bacitracin Itching 02/20/2018 Ezetimibe 09/19/2008 Shellfish Allergy 03/25/2023 Sulfa Antibiotics 12/24/2017 Tramadol Itching 12/24/2017 documented as of this encounter (statuses as of 04/16/2024) Medications Medication Sig Dispensed Refills Start Date [...] mouth in the morning. Active Saline Nasal [place] 0.65 % Nasal Solution ([place]) Administer 1 [place] into nostril as needed for Congestion. 12/12/2023 [...] as of this encounter (statuses as of 04/16/2024) Active Problems Problem Noted Date Diagnosed Date [...] as of this encounter (statuses as of 04/16/2024) Resolved Problems Problem Noted Date Diagnosed Date [...] as of this encounter (statuses as of 04/16/2024) Immunizations Name Administration Dates Next Due COVID-19 mRNA, LNP-s, No Pre serve, 2-Dose Series ([employer]) 08/19/2021,12/26/2020,12/05/2020 COVID-19, MRNA-LNP, 23-24, P F, 30 [...] encounter Miscellaneous Notes * Telephone Encounter - Amy Peña LPN - 04/14/2024 3:16 PM EDT Forwarded to [facility] scheduling to reach out to agency's to see who has availability * Telephone Encounter - Angelica Gomez OSA - 04/14/2024 2:55 PM EDT Incoming call received from Lillian at . Stated they cannot accept pt for services due to lack of availability. She recommended reaching out to [facility], [facility], or [facility] as they all cover the [facility]. Routed to care team to further advise. documented in this encounter Plan of Treatment Upcoming Encounters Date Type Department Care Team (Late st Contact Info) Description 04/21/2024 7:00 AM EDT Laboratory Lab Mobile Phlebotomy [facility] [address] [place] [address] [facility], [facility] Home Draw [address] [place] [address] 04/24/2024 6:00 AM EDT Anticoagulation [facility], [address] [place] [address] [facility], [address] [place] [address] 04/28/2024 7:00 AM EDT Laboratory Lab Mobile Phlebotomy [facility] [address] [place] [address] [facility], [facility] Home Draw [address] [place] [address] 05/05/2024 7:00 AM EDT Laboratory Lab Mobile Phlebotomy [facility] [address] [place] [address] M[facility], [facility] Draw [address] [place] [address] 05/12/2024 7:00 AM EDT Laboratory Lab Mobile Phlebotomy [facility] [address] [place] [address] M[facility], [facility] Draw [address] [place] [address] 05/19/2024 7:00 AM EDT Laboratory Lab Mobile Phlebotomy [facility] [address] [employer] [place], [place] [address] M[facility], Gml Mobile Home Draw [address] [facility] [place] [address] 05/26/2024 7:00 AM EDT Laboratory Lab Mobile Phlebotomy [facility] [address] [facility] [place], [place] [address] M[facility], Gml Mobile Home Draw [address] [facility] [place], [place] [address] 05/29/2024 9:00 AM EDT [facility] Visit [facility], [facility] [address] [facility] [place] [address] Gustavo Begum [facility]-C [facility] [place] [address] 06/02/2024 7:00 AM EDT Laboratory Lab Mobile Phlebotomy [facility] [address] [facility] [place], [place] [address] [facility], G[facility] Home Draw [address] [facility] [place] [address] 06/09/2024 7:00 AM EDT Laboratory Lab Mobile Phlebotomy [facility] [address] [facility] [place], [place] [address] Mv[facility], Gml Mobile Home Draw [address] [facility] [place] [address] 06/16/2024 7:00 AM EDT Laboratory Lab Mobile Phlebotomy [facility] [address] [facility] [employer] [place], [place] [address] M[facility], Gml Mobile Home Draw [address] [facility] [place] [address] 06/23/2024 7:00 AM EDT Laboratory Lab Mobile Phlebotomy [facility] [address] [facility] [place], [place] [address] [facility], G[facility] Draw [address] [facility] [place] [address] 06/29/2024 10:00 AM EDT Home Visit [facility], [facility] [address] [facility] [place] [address] Sandra Cullen RN [address] [facility] [place] [address] 06/30/2024 7:00 AM EDT Laboratory Lab Mobile Phlebotomy [facility] [address] [place] [address] M[facility], G[facility] Home Draw [address] [place] [address] 07/07/2024 7:00 AM EDT Laboratory Lab Mobile Phlebotomy [facility] [address] [place] [address] [facility], [facility] Draw [address] [place] [address] 07/14/2024 7:00 AM EDT Laboratory Lab Mobile Phlebotomy [facility] [address] [place] [address] [facility], [facility] Draw [address] [place] [address] 07/21/2024 7:00 AM EDT Laboratory Lab Mobile Phlebotomy [facility] [address] [place] [address] M[facility], [facility] Draw [address] [place] [address] 07/28/2024 7:00 AM EDT Laboratory Lab Mobile Phlebotomy [facility] [address] [place] [address] M[facility], [facility] Draw [address] [place] [address] 07/29/2024 11:30 AM EDT Home Visit [facility], [facility] [address] [facility] [place] [address] Sandra Cullen RN [address] [place] [address] 08/04/2024 7:00 AM EDT Laboratory Lab Mobile Phlebotomy [facility] [address] [place] [address] [facility], [facility] Draw [address] [place] [address] 08/10/2024 10:40 AM EST Office Visit [facility] [address] [facility] [place] [address] Angie Perez MD [address] [facility] [place] [address] 08/11/2024 7:00 AM EST Laboratory Lab Mobile Phlebotomy [facility] [address] [place], [place] [address] [facility], [facility] Draw [address] [place] [address] 08/18/2024 7:00 AM EST Laboratory Lab Mobile Phlebotomy [facility] [address] [place], [place] [address] Mv[facility], Gml [facility] Home Draw [address] [place] [address] 08/25/2024 7:00 AM EST Laboratory Lab Mobile Phlebotomy [facility] [address] [place] [address] M[facility], Gml [facility] Draw [address] [place] [address] 09/01/2024 7:00 AM EST Laboratory Lab Mobile Phlebotomy [facility] [address] [place] [address] M[facility], Gml [facility] Draw [address] [place] [address] 09/08/2024 7:00 AM EST Laboratory Lab Mobile Phlebotomy [facility] [address] [place] [address] M[facility], Gml [facility] Draw [address] [place] [address] 2024 7:00 AM EST Laboratory Lab Mobile Phlebotomy [facility] [address] [place] [address] M[facility], Gml Mobile Home Draw [address] [facility] [place] [address] 09/22/2024 7:00 AM EST Laboratory Lab Mobile Phlebotomy [facility] [address] [facility] [place] [address] Mvmg, Gml Mobile Home Draw [address] [facility] [place] [address] 09/29/2024 7:00 AM EST Laboratory Lab Mobile Phlebotomy [facility] [address] [facility] [place] [address] Mv[facility], Gml Mobile Home Draw [address] [place] [address] 10/06/2024 7:00 AM EST Laboratory Lab Mobile Phlebotomy [facility] [address] [facility] [place] [address] Mv[facility], Gml Mobile Home Draw [address] [place] [address] Health Maintenance Due Date Last Done Comments [...] D LEVEL ONCE IN A LIFETIME-USE SMARTSET# [id number] Completed 05/31/2020, 11/25/2019, 08/06/2019, Additional history exists [...] Name Relationship Healthcare Agent Relationship Communication Tank Acadrianahalie Adult Child First Alternate Health Care Agent (per Health Care Power of Stunt Man document) Jo-Ann Rose Adult Child First Alternate Health Care Agent (per Health Care Power of Stunt Man document) [email or web address] Care Teams Pharmaceutical Service Representative Relationship Specialty Start Date End Date Angie Perez MD [address] [place] [address] PCP - General Family Medicine 04/07/24 documented as of this encounter
--- OUTSIDE RECORDS SUMMARY | 2024-06-21 01:21 | External Medical Summary | Summary of Care ---
Author Name Unknown Organization [facility] Address [address] [place] [address] Phone [phone] Care Team Providers Care Full Time Name Role Phone Angie Perez MD Primary Care Provider [phone] Reason for Visit * Reason Onset Date Comments Information 04/16/2024 Encounter Details Date Type Department Care Team (Late st Contact Info) Description 04/16/2024 Telephone [facility] [place] [address] [place] [address] Services, Scheduling [address] [place] [address] Information (///) Allergies Active Allergy Reactions Criticality Noted Date [...] mouth in the morning. Active Saline Nasal [place] 0.65 % Nasal Solution (Raymond) Administer 1 [place] into nostril as needed for Congestion. 12/12/2023 [...] mRNA, LNP-s, No Pre serve, 2-Dose Series (Root Orange) 08/19/2021,12/26/2020,12/05/2020 COVID-19, MRNA-LNP, 23-24, P F, 30 [...] encounter Miscellaneous Notes * Telephone Encounter - Anahi Fierro OSA - 04/16/2024 9:00 AM EDT Request to find for SN and I called [facility] and was given fax [phone] to provide info to them to review and they will cb So I sent at 900 this morning Troup back from [facility] and they cannot assist so I then called and sent to [facility] who said to fax info to them and they can being SOC 04/21 so I sent at 1000 to [phone] documented in this encounter Plan of Treatment Upcoming Encounters Date Type Department Care Team (Late st Contact Info) Description 04/21/2024 7:00 AM EDT [facility] [address] [place] [address] M[facility], [facility] [address] [place] [address] 04/24/2024 6:00 AM EDT Anticoagulation Centralized Clinical Pharmacy Services, Milli Breen [address] [place] [address] [place] [address] [facility], [address] [place] [address] 04/28/2024 7:00 AM EDT [facility] [address] [facility] [place] [address] Mvmg, [facility] [address] [place] [address] 05/05/2024 7:00 AM EDT [facility] [address] [place] [address] M[facility], [facility] [address] [place] [address] 05/12/2024 7:00 AM EDT [facility] [address] [place] [address] M[facility], [facility] [address] [place] [address] 05/19/2024 7:00 AM EDT [facility] [address] [place] [address] Mv[facility], [facility] [address] [place] [address] 05/26/2024 7:00 AM EDT Laboratory [facility] Ph[facility] [place], [place] [address] Mvmg, [facility] Draw [address] [facility], [place] [address] 05/29/2024 9:00 AM EDT Home Visit [facility], [facility] [address] [facility] [place] [address] Gustavo Begum PA-C 132 [facility] [place] [address] 06/02/2024 7:00 AM EDT Laboratory [facility] Phlebotomy [facility] [address] [facility], [place] [address] Mvmg, [facility] Draw [address] [facility], [place] [address] 06/09/2024 7:00 AM EDT Laboratory [facility]bot[facility] [address] [facility], [place] [address] Mvmg, [facility] Draw [address] [place] [address] 06/16/2024 7:00 AM EDT Laboratory [facility] [address] [place] [address] Mvmg, [facility] [address] [place] [address] 06/23/2024 7:00 AM EDT Laboratory [facility] [address] [place] [address] Mvmg, [facility] Draw [address] [place] [address] 06/29/2024 10:00 AM EDT Home Visit [facility], [facility] [address] [facility] [place] [address] Sandra Cullen RN 132 [facility] [place] [address] 06/30/2024 7:00 AM EDT Laboratory [facility] Phlebotomy [facility] [address] [place] [address] Mvmg, [facility] Draw [address] [facility] [place] [address] 07/07/2024 7:00 AM EDT Laboratory [facility] Phlebot[facility] [address] [place] [address] Mvmg, [facility] [address] [place] [address] 07/14/2024 7:00 AM EDT Laboratory Lab [facility] Phlebotomy [facility] [address] [place] [address] Mvmg, [facility] Draw [address] [facility] [place] [address] 07/21/2024 7:00 AM EDT Laboratory [facility] Phlebot[facility] [address] [place] [address] Mvmg, [facility] [address] [facility] [place] [address] 07/28/2024 7:00 AM EDT Laboratory [facility] Phlebotomy [facility] [address] [facility] [place] [address] Mvmg, [facility] Draw [address] [place] [address] 07/29/2024 11:30 AM EDT Home Visit [facility], [facility] [address] [facility] [place] [address] Sandra Cullen, RN [address] [place] [address] 08/04/2024 7:00 AM EDT Laboratory [facility] Phlebot[facility] [address] [facility] [place] [address] Mvmg, [facility] Draw [address] [facility] [place] [address] 08/10/2024 10:40 AM EST Office Visit [facility] [address] [facility] [place] [address] Angie Perez MD [address] [facility] [place] [address] 08/11/2024 7:00 AM EST Laboratory [facility] [address] [place] [address] M[facility], [facility] Draw [address] [facility] [place] [address] 08/18/2024 7:00 AM EST Laboratory [facility] [address] [place] [address] Mv[facility], [facility] [address] [place] [address] 08/25/2024 7:00 AM EST Laboratory [facility]le[facility] [address] [place] [address] M[facility], [facility] [address] [facility] [place] [address] 09/01/2024 7:00 AM EST Laboratory [facility] [address] [place] [address] Mvmg, [facility] [address] [place] [address] 09/08/2024 7:00 AM EST [facility] [address] [facility] [place] [address] Mvmg, [facility] [address] [place] [address] 2024 7:00 AM EST Laboratory [facility] [address] [place] [address] Mvmg, [facility] [address] [facility] [place] [address] 09/22/2024 7:00 AM EST Laboratory [facility] [address] [facility] [place] [address] Mvmg, [facility] [address] [place] [address] 09/29/2024 7:00 AM EST Laboratory [facility] Phlebotomy [facility] [address] [facility] [place] [address] Mvmg, [facility] Draw [address] [place], [place] [address] 10/06/2024 7:00 AM EST Laboratory [facility] Phlebotomy [facility] [address] [place] [address] Mvmg, [facility] Draw [address] [facility] [place], [place] [address] Health Maintenance Due Date Last Done Comments [...] D LEVEL ONCE IN A LIFETIME-USE SMARTSET# 01364 Completed 05/31/2020, 11/25/2019, 08/06/2019, Additional history exists [...] Care Agent (per Health Care Power of Log Driver document) Jo-Ann Rose Adult Child First Alternate Health Care Agent (per Health Care Power of Log Driver document) [email or web address] Care Teams Full Time Relationship Specialty Start Date End Date Angie Perez MD [address] [place] [address], [place] [address] PCP - General Family Medicine 04/07/24 documented as of this encounter
--- OUTSIDE RECORDS SUMMARY | 2024-06-21 01:21 | External Medical Summary | Summary of Care ---
Author Name Unknown Organization [facility] Address [address] [place] [address] Phone [phone] Care Team Providers Care Engineering Technical Analyst Name Role Phone Angie Perez MD Primary Care Provider [phone] Reason for Visit * Reason Onset Date Comments Advice 04/08/2024 Update 04/08/2024 Encounter Details Date Type Department Care Team (Late st Contact Info) Description 04/08/[address] [facility] [address] [facility] [place] [address] Angie Perez MD [address] [place] [address] Advice; Update Allergies Active Allergy Reactions Criticality Noted [...] mouth in the morning. Active Saline Nasal [place] 0.65 % Nasal Solution (Stokes) Administer 1 [place] into nostril as needed for Congestion. 12/12/2023 [...] [facility] 90 Tablet 3 04/07/2024 Active documented as of this encounter (statuses [...] mRNA, LNP-s, No Pre serve, 2-Dose Series ([email or web address]) 08/19/2021,12/26/2020,12/05/2020 COVID-19, MRNA-LNP, 23-24, P F, 30 MCG/0.3 mL, 12 YRS AND ABOVE, [facility] 03/05/2024 Covid-19, Mrna, Lnp-s, Pf, B ivalent, [...] encounter Miscellaneous Notes * Telephone Encounter - Dorothea Allen LPN - 04/16/2024 2:35 PM EDT See other encounter * Telephone Encounter - Sophie Donato OSA - 04/08/2024 4:51 PM EDT Lucia [facility], They cannot take her due to lack of staffing as well * Telephone Encounter - Christy Godoy RN - 04/08/2024 4:16 PM EDT Called [facility] at [phone]. Faxed information to [phone]. They will let us know if they can see her. * Telephone Encounter - Christy Godoy RN - 04/08/2024 3:52 PM EDT [facility] says there is high patient volume in her area right now so they can't see her. * Telephone Encounter - Karen Mora OSA - 04/08/2024 3:25 PM EDT [facility] calling back to inform the provider that they are not able to accommodate after reviewing the referral information. * Telephone Encounter - Sabino Yen MED ASSIST - 04/08/2024 2:17 PM EDT Paperwork faxed to the number provided with a confirmation received. * Telephone Encounter - Christy Godoy RN - 04/08/2024 1:30 PM EDT Called [facility] at [phone]. They want information faxed to them at [phone]. Faxed referral, demographics, office note. * Telephone Encounter - Maxine Darden LPN - 04/08/2024 11:05 AM EDT Birdie calling from [facility], they unfortunately are unable to pick patient up at this time due to high census. * Telephone Encounter - Niharika Arriaga OSA - 04/08/2024 11:03 AM EDT Reason for patient's call: [facility] calling about the pts referral Caller was transferred to Maxine at the nurse line. documented in this encounter Plan of Treatment Upcoming Encounters Date Type Department Care Team (Late st Contact Info) Description 04/21/2024 7:00 AM EDT Laboratory Lab Mobile Phlebot[facility] [address] [place] [address] Mvmg, [facility] Draw [address] [place] [address] 04/24/2024 6:00 AM EDT Anticoagulation Centralized Clinical Pharmacy Services, Milli Breen [address] [place] [address] [place] [address] [facility], [address] [place] [address] 04/28/2024 7:00 AM EDT Laboratory [facility] Ph[facility] [address] [place] [address] Mvmg, [facility] Draw [address] [address] 05/05/2024 7:00 AM EDT Laboratory Lab Mobile Phlebotomy [facility] [address] [place] [address] Mvmg, [facility] Draw [address] [place] [address] 05/12/2024 7:00 AM EDT Laboratory [facility] Phlebot[facility] [address] [place] [address] M[facility], [facility] [address] [place] [address] 05/19/2024 7:00 AM EDT Laboratory Lab [facility] Phlebotomy [facility] [address] [place], [place] [address] Mvmg, [facility] Draw [address] [place], [place] [address] 05/26/2024 7:00 AM EDT Laboratory Lab Mobile Phlebotomy [facility] [address] [place], [place] [address] Mvmg, Gml [facility] Draw [address] [place] [address] 05/29/2024 9:00 AM EDT Home Visit [facility], [facility] [address] [place] [address] Gustavo Begum PA-C [address] [place] [address] 06/02/2024 7:00 AM EDT Laboratory Lab Mobile Phlebotomy [facility] [address] [place], [place] [address] Mvmg, G[facility] Draw [address] [place], [place] [address] 06/09/2024 7:00 AM EDT Laboratory [facility] Phlebot[facility] [address] [place], [place] [address] Mvmg, G[facility] Draw [address] [place] [address] 06/16/2024 7:00 AM EDT Laboratory [facility] Phlebot[facility] [address] [place] [address] Mvmg, [facility] Draw [address] [place] [address] 06/23/2024 7:00 AM EDT Laboratory [facility] Phlebotomy [facility] [address] [place], [place] [address] Mvmg, [facility] Draw [address] [place] [address] 06/29/2024 10:00 AM EDT Home Visit [facility], [facility] [address] [facility] [place] [address] Sandra Cullen RN [address] [place] [address] 06/30/2024 7:00 AM EDT Laboratory Lab Mobile Phlebotomy [facility] [address] [place] [address] Mvmg, Gml [facility] Home Draw [address] [place] [address] 07/07/2024 7:00 AM EDT Laboratory Lab Mobile Phlebotomy [facility] [address] [place] [address] Mvmg, Gml Mobile Home Draw [address] [place] [address] 07/14/2024 7:00 AM EDT Laboratory Lab Mobile Phlebotomy [facility] [address] [place] [address] Mvmg, Gml Mobile Home Draw [address] [place] [address] 07/21/2024 7:00 AM EDT Laboratory Lab Mobile Phlebotomy [facility] [address] [place] [address] Mvmg, Gml Mobile Home Draw [address] [place] [address] 07/28/2024 7:00 AM EDT Laboratory Lab Mobile Phlebotomy [facility] [address] [place] [address] Mvmg, Gml Mobile Home Draw [address] [place] [address] 07/29/2024 11:30 AM EDT Home Visit [facility], [facility] [address] [address] Sandra Cullen RN [address] [address] 08/04/2024 7:00 AM EDT Laboratory Lab Mobile Phlebotomy [facility] [address] [place], [place] [address] Mvmg, G[facility] Draw [address] [place], [place] [address] 08/10/2024 10:40 AM EST Office Visit Family [facility] 200 [place] [address] Angie Perez MD 200 [place] [address] 08/11/2024 7:00 AM EST Laboratory Lab Mobile Phlebotomy [facility] [address] [place] [address] [place], [place] [address] Mvmg, Gml Mobile Home Draw [address] [facility] [place] [address] 08/18/2024 7:00 AM EST Laboratory Lab Mobile Phlebotomy [facility] [address] [place] [address] Mvmg, Gml [facility] Home Draw [address] [facility] [place] [address] 08/25/2024 7:00 AM EST Laboratory Lab Mobile Phlebotomy [facility] [address] [place], [place] [address] Mvmg, Gml Mobile Home Draw [address] [facility] [place] [address] 09/01/2024 7:00 AM EST Laboratory Lab Mobile Phlebotomy [facility] [address] [place] [address] Mvmg, Gml [facility] Home Draw [address] [facility] [place] [address] 09/08/2024 7:00 AM EST Laboratory Lab Mobile Phlebotomy [facility] [address] [place] [address] Mvmg, Gml [facility] Home Draw [address] [facility] [place] [address] 2024 7:00 AM EST Laboratory Lab Mobile Phlebotomy [facility] [address] [facility] [place] [address] Mvmg, Gml Mobile Home Draw [address] [facility] [place] [address] 09/22/2024 7:00 AM EST Laboratory Lab Mobile Phlebotomy [facility] [address] [facility] [place] [address] Mvmg, Gml [facility] Home Draw [address] [facility] [place] [address] 09/29/2024 7:00 AM EST Laboratory Lab Mobile Phlebotomy [facility] [address] [facility] [place] [address] Mvmg, Gml [facility] Home Draw [address] [facility] [place] [address] 10/06/2024 7:00 AM EST Laboratory Lab Mobile Phlebotomy [facility] [address] [facility] [place] [address] Mvmg, Gml Mobile Home Draw [address] [place] [address] Health Maintenance Due Date Last Done Comments [...] D LEVEL ONCE IN A LIFETIME-USE SMARTSET# [id number] Completed 05/31/2020, 11/25/2019, 08/06/2019, Additional history exists [...] Care Agent (per Health Care Power of Executive Director [employer] Brand [employer] document) Jo-Ann Rose Adult Child First Alternate Health Care Agent (per Health Care Power of Executive Director [employer] document) [email or web address] Care Teams Engineering Technical Analyst Relationship Specialty Start Date End Date Angie Perez MD [address] [place] [address] PCP - General Family Medicine 04/07/24 documented as of this encounter
--- OUTSIDE RECORDS SUMMARY | 2024-06-21 01:21 | External Medical Summary | Summary of Care ---
Author Name Unknown Organization [facility] Address [address] [place] [address] Phone [phone] Care Team Providers Care Access Representative Name Role Phone Angie Perez MD Primary Care Provider [phone] Reason for Visit * Reason Onset Date Comments Information 04/16/2024 Encounter Details Date Type Department Care Team (Late st Contact Info) Description 04/16/2024 Telephone [facility] [address] [place] [address] Services, Scheduling [address] [place] [address] Information (///) Allergies Active Allergy Reactions Criticality [...] mouth in the morning. Active Saline Nasal [place] 0.65 % Nasal Solution ([place]) Administer 1 [place] into nostril as needed for Congestion. 12/12/2023 [...] mRNA, LNP-s, No Pre serve, 2-Dose Series (TESARO) 08/19/2021,12/26/2020,12/05/2020 COVID-19, MRNA-LNP, 23-24, P F, 30 [...] 04/16/2024 9:00 AM EDT Request to find HH for SN and I called [facility] and was given fax [phone] to provide info to them to review and they will cb So I sent at 900 this morning documented in this encounter Plan of Treatment Upcoming Encounters Date Type Department Care Team (Late st Contact Info) Description 04/16/2024 9:30 AM EDT Scheduled Telephone [facility], [facility] [address] [place] [address] Coordinator, [facility] [address] [place] [address] 04/21/2024 7:00 AM EDT [facility] [address] [employer] [place] [address] Mvmg, [facility] Draw [address] [place] [address] 04/24/2024 6:00 AM EDT Anticoagulation Centralized Clinical Pharmacy Services, Milli Breen [address] [place] [address] [place] [address] [facility], [address] [place] [address] 04/28/2024 7:00 AM EDT [facility]le[facility] [address] [employer] [place] [address] Mvmg, G[facility] Draw [address] [place] [address] 05/05/2024 7:00 AM EDT [facility] [address] [employer] [place] [address] Mvmg, Gml [facility] Home Draw [address] [place] [address] 05/12/2024 7:00 AM EDT [facility] Phlebot[facility] [address] [place] [address] Mvmg, Gml [facility] Home Draw [address] [place] [address] 05/19/2024 7:00 AM EDT [facility] Phlebot[facility] [address] [employer] [place] [address] Mvmg, Gml Mobile Home Draw 2520 [facility] [place] [address] 05/26/2024 7:00 AM EDT Laboratory [facility] Phlebotomy [facility] 25[address] [facility] [place], [place] [address] Mvmg, Gml Mobile Home Draw 2520 [facility] [place], [place] [address] 05/29/2024 9:00 AM EDT Home Visit [facility], [facility] 132 [facility] [place] [address] Gustavo Begum PA-C 132 [facility] [place] [address] 06/02/2024 7:00 AM EDT Laboratory [facility] Phlebotomy [facility] 25[address] [facility] [place], [place] [address] Mvmg, Gml Mobile Home Draw 2520 [facility] [place], [place] [address] 06/09/2024 7:00 AM EDT Laboratory [facility] Phlebotomy [facility] 25[address] [facility] [place], [place] [address] Mvmg, Gml Mobile Home Draw 2520 [facility] [place], [place] [address] 06/16/2024 7:00 AM EDT Laboratory [facility] Mobile Phlebotomy [facility] 25[address] [facility] [place], [place] [address] Mvmg, Gml Mobile Home Draw [address] [place] [address] 06/23/2024 7:00 AM EDT Laboratory Lab Mobile Phlebotomy [facility] 25[address] [facility] [place], [place] [address] Mvmg, Gml Mobile Home Draw 2520 [facility] [place], [place] [address] 06/29/2024 10:00 AM EDT Home Visit [facility], [facility] 132 [facility] [place] [address] Sandra Cullen RN [address] [facility] [place] [address] 06/30/2024 7:00 AM EDT Laboratory Lab Mobile Phlebotomy [facility] [address] [place] [address] Mvmg, Gml Mobile Home Draw 2520 [facility] [place] [address] 07/07/2024 7:00 AM EDT Laboratory Lab Mobile Phlebotomy [facility] [address] [employer] [place] [address] Mvmg, Gml Mobile Home Draw [address] [place] [employer] [place] [address] 07/14/2024 7:00 AM EDT Laboratory Lab Mobile Phlebotomy [facility] [address] [employer] [place] [address] Mvmg, Gml Mobile Home Draw [address] [place] [employer] [place] [address] 07/21/2024 7:00 AM EDT Laboratory Lab Mobile Phlebotomy [facility] [address] [employer] [place] [address] Mvmg, Gml Mobile Home Draw [address] [place] [employer] [place] [address] 07/28/2024 7:00 AM EDT Laboratory Lab Mobile Phlebotomy [facility] [address] [employer] [place] [address] Mvmg, Gml Mobile Home Draw [address] [place] [employer] [place] [address] 07/29/2024 11:30 AM EDT Home Visit [facility], [facility] [address] [place] [address] Sandra Cullen RN 132 [place] [address] 08/04/2024 7:00 AM EDT Laboratory Lab Mobile Phlebotomy [facility] [address] [employer] [place] [address] Mvmg, Gml Mobile Home Draw [address] [place] [address] 08/10/2024 10:40 AM EST Office Visit [facility] 200 [place] [address] Angie Perez MD 200 [facility] [place] [address] 08/11/2024 7:00 AM EST Laboratory Lab Mobile Phlebotomy [facility] [address] [facility] [place] [address] Mvmg, Gml Mobile Home Draw 25[address] [facility] [place] [address] 08/18/2024 7:00 AM EST Laboratory Lab Mobile Phlebotomy [facility] [address] [facility] [place] [address] Mvmg, Gml Mobile Home Draw 25[address] [facility] [place] [address] 08/25/2024 7:00 AM EST Laboratory Lab Mobile Phlebotomy [facility] [address] [place] [address] Mvmg, Gml Mobile Home Draw 2520 [facility] [place] [address] 09/01/2024 7:00 AM EST Laboratory Lab Mobile Phlebotomy [facility] [address] [place] [address] Mvmg, Gml Mobile Home Draw [address] [place] [address] 09/08/2024 7:00 AM EST Laboratory Lab Mobile Phlebotomy [facility] [address] [place] [address] Mvmg, Gml Mobile Home Draw 2520 [facility] [place] [address] 2024 7:00 AM EST Laboratory [facility] Mobile Phlebotomy [facility] [address] [place] [address] Mvmg, Gml Mobile Home Draw 2520 [facility] [place] [address] 09/22/2024 7:00 AM EST Laboratory Lab Mobile Phlebotomy M[facility] [address] [facility] [place], [place] [address] Mvmg, Gml Mobile Home Draw 25[address] [facility] [place], [place] [address] 09/29/2024 7:00 AM EST Laboratory Lab Mobile Phlebotomy M[facility] [address] [facility] [place], [place] [address] Mvmg, Gml Mobile Home Draw 25[address] [facility] [place], [place] [address] 10/06/2024 7:00 AM EST Laboratory Lab Mobile Phlebotomy M[facility] 25[address] [facility] [place], [place] [address] Mvmg, Gml Mobile Home Draw 2520 [facility] [place], [place] [address] Health Maintenance Due Date Last Done Comments [...] D LEVEL ONCE IN A LIFETIME-USE SMARTSET# 35408 Completed 05/31/2020, 11/25/2019, 08/06/2019, Additional history exists [...] Care Agent (per Health Care Power of In Processing Instructor document) Jo-Ann Milton Adult Child First Alternate Health Care Agent (per Health Care Power of In Processing Instructor document) [email or web address] Care Teams Access Representative Relationship Specialty Start Date End Date Angie Perez MD [address] [place] [address] PCP - General Family Medicine 04/07/24 documented as of this encounter
--- OUTSIDE RECORDS SUMMARY | 2024-06-21 01:22 | External Medical Summary | Summary of Care ---
Author Name Unknown Organization [facility] Address [address] [place] [address] Phone [phone] Care Team Providers Care Experimental Physicist Name Role Phone Angie Perez MD Primary Care Provider [phone] Reason for Visit * Reason Onset Date Comments Appointment 04/15/2024 Encounter Details Date Type Department Care Team (Late st Contact Info) Description 04/15/2024 Telephone [facility] [address] [place] [address] Services, Scheduling [address] [place] [address] Appointment (//) Allergies Active Allergy Reactions Criticality Noted Date Comments Bacitracin Itching 02/20/2018 Ezetimibe 09/19/2008 Shellfish Allergy 03/25/2023 Sulfa Antibiotics 12/24/2017 Tramadol Itching 12/24/2017 documented as of this encounter (statuses as of 04/15/2024) Medications Medication Sig Dispensed Refills Start Date [...] mouth in the morning. Active Saline Nasal [place] 0.65 % Nasal Solution (Chaves) Administer 1 [place] into nostril as needed for Congestion. 12/12/2023 [...] as of this encounter (statuses as of 04/15/2024) Active Problems Problem Noted Date Diagnosed Date [...] as of this encounter (statuses as of 04/15/2024) Resolved Problems Problem Noted Date Diagnosed Date [...] as of this encounter (statuses as of 04/15/2024) Immunizations Name Administration Dates Next Due COVID-19 mRNA, LNP-s, No Pre serve, 2-Dose Series (Zebtab) 08/19/2021,12/26/2020,12/05/2020 COVID-19, MRNA-LNP, 23-24, P F, 30 [...] Telephone Encounter - Anahi Fierro OSA - 04/15/2024 9:39 AM EDT Request ret hv with Kilo Cullen on or after 06/29 and to upload pics if any wounds at this visit I foundopening on 06/29 and called but had to lmom documented in this encounter Plan of Treatment Upcoming Encounters Date Type Department Care Team (Late st Contact Info) Description 04/15/2024 1:45 PM EDT Scheduled Telephone [facility], [place] [address] [place] [address] Coordinator, [facility] [address] [place] [address] 04/21/2024 7:00 AM EDT Laboratory Lab Mobile Phlebotomy [facility] [address] [place], [place] [address] Mvmg, Gml Mobile Home Draw [address] [place], [place] [address] 04/28/2024 7:00 AM EDT Laboratory [facility] Mobile Phlebotomy [facility] [address] [place], [place] [address] Mvmg, Gml Mobile Home Draw [address] [place], [place] [address] 05/05/2024 7:00 AM EDT Laboratory Lab Mobile Phlebotomy M[facility] [address] [place] [address] Mvmg, Gml Mobile Home Draw [address] [place] [address] 05/12/2024 7:00 AM EDT Laboratory [facility] Mobile Phlebotomy [facility] [address] [place] [address] Mvmg, Gml Mobile Home Draw [address] [place] [address] 05/19/2024 7:00 AM EDT Laboratory Lab Mobile Phlebotomy [facility] [address] [place] [address] Mvmg, Gml Mobile Home Draw [address] [place] [address] 05/26/2024 7:00 AM EDT Laboratory [facility] Mobile Phlebotomy [facility] [address] [place] [address] Mvmg, Gml Mobile Home Draw [address] [place], [place] [address] 05/29/2024 9:00 AM EDT Home Visit [facility], [facility] [address] [place] [address] Gustavo Begum PA-C 132 [facility] [place] [address] 06/02/2024 7:00 AM EDT Laboratory Lab Mobile Phlebotomy [facility] [address] [place], [place] [address] Mvmg, Gml Mobile Home Draw [address] [place], [place] [address] 06/09/2024 7:00 AM EDT Laboratory Lab Mobile Phlebotomy M[facility] [address] [place], [place] [address] Mvmg, Gml Mobile Home Draw [address] [place], [place] [address] 06/16/2024 7:00 AM EDT Laboratory Lab Mobile Phlebotomy M[facility] [address] [place] [address] Mvmg, Gml Mobile Home Draw [address] [place] [address] 06/23/2024 7:00 AM EDT Laboratory Lab Mobile Phlebotomy M[facility] [address] [place] [address] Mvmg, Gml Mobile Home Draw [address] [place] [address] 06/29/2024 10:00 AM EDT Home Visit [facility], [facility] [address] [place] [address] Sandra Cullen, RN [address] [place] [address] 06/30/2024 7:00 AM EDT Laboratory Lab Mobile Phlebotomy [facility] [address] [place] [address] Mvmg, Gml Mobile Home Draw [address] [place] [address] 07/07/2024 7:00 AM EDT Laboratory Lab Mobile Phlebotomy [facility] [address] [place] [address] Mvmg, Gml Mobile Home Draw [address] [place] [address] 07/14/2024 7:00 AM EDT Laboratory Lab Mobile Phlebotomy [facility] [address] [place] [address] Mvmg, Gml Mobile Home Draw [address] [place] [address] 07/21/2024 7:00 AM EDT Laboratory Lab Mobile Phlebotomy M[facility] [address] [employer] [place] [address] Mvmg, Gml Mobile Home Draw [address] [place] [address] 07/28/2024 7:00 AM EDT Laboratory Lab Mobile Phlebotomy M[facility] [address] [place] [address] Mvmg, Gml Mobile Home Draw [address] [place] [address] 07/29/2024 11:30 AM EDT Home Visit [facility] 132 [facility] [place] [address] Sandra Cullen RN [address] [place] [address] 08/04/2024 7:00 AM EDT Laboratory Lab Mobile Phlebotomy [facility] [address] [place], [place] [address] Mvmg, Gml Mobile Home Draw [address] [place], [place] [address] 08/10/2024 10:40 AM EST Office Visit [facility] [place] 200 [facility] [place] [place] [address] Angie Perez MD [address] [place] [address], [place] [address] 08/11/2024 7:00 AM EST Laboratory Lab Mobile Phlebotomy M[facility] [address] [place] [employer] [facility] [place] [address] Mvmg, Gml Mobile Home Draw [address] [place] [employer] [facility] [place] [address] 08/18/2024 7:00 AM EST Laboratory Lab Mobile Phlebotomy MVMG [address] [facility] [place] [address] Mvmg, Gml Mobile Home Draw 2520 [facility] [place] [address] 08/25/2024 7:00 AM EST Laboratory Lab Mobile Phlebotomy MVMG [address] [place] [employer] [facility] [place] [address] Mvmg, Gml Mobile Home Draw [address] [place] [employer] [facility] [place] [address] 09/01/2024 7:00 AM EST Laboratory Lab Mobile Phlebotomy MVMG [address] [place] [employer] [facility] [place] [address] Mvmg, Gml Mobile Home Draw [address] [place] [employer] [facility] [place] [address] 09/08/2024 7:00 AM EST Laboratory Lab Mobile Phlebotomy MVMG [address] [facility] [place] [address] Mvmg, Gml Mobile Home Draw [address] [place] [employer] [facility] [place] [address] 2024 7:00 AM EST Laboratory Lab Mobile Phlebotomy M[facility] [address] [facility] [place] [address] Mvmg, Gml Mobile Home Draw [address] [place] [employer] [facility] [place] [address] 09/22/2024 7:00 AM EST Laboratory Lab Mobile Phlebotomy MVMG [address] [place] [address] Mvmg, Gml Mobile Home Draw [address] [place] [employer] [facility] [place] [address] 09/29/2024 7:00 AM EST Laboratory Lab Mobile Phlebotomy M[facility]G [address] [facility] [place], [place] [address] Mvmg, Gml Mobile Home Draw [address] [facility] [place], [place] [address] 10/06/2024 7:00 AM EST Laboratory Lab Mobile Phlebotomy M[facility] [address] [facility] [place], [place] [address] Mvmg, Gml Mobile Home Draw [address] [facility] [place], [place] [address] Health Maintenance Due Date Last Done Comments [...] D LEVEL ONCE IN A LIFETIME-USE SMARTSET# [id number] Completed 05/31/2020, 11/25/2019, 08/06/2019, Additional history exists [...] Care Agent (per Health Care Power of Wood Carving Lathe Operator document) Jo-Ann [place] Adult Child First Alternate Health Care Agent (per Health Care Power of Wood Carving Lathe Operator document) [email or web address] Care Teams Experimental Physicist Relationship Specialty Start Date End Date Angie Perez MD [address] [place] [address], [place] [address] PCP - General Family Medicine 04/07/24 documented as of this encounter
--- OUTSIDE RECORDS SUMMARY | 2024-06-21 01:22 | External Medical Summary | Summary of Care ---
Author Name Unknown Organization [facility] Address [address] [place] [address] Phone [phone] Care Team Providers Care Medical Photographer Name Role Phone Angie Perez MD Primary Care Provider [phone] Reason for Visit * Reason Onset Date Comments Information 04/14/2024 Encounter Details Date Type Department Care Team (Late st Contact Info) Description 04/14/2024 Telephone [facility] [address] [place] [address] Services, Scheduling [address] [place] [address] Information Allergies Active Allergy Reactions Criticality Noted Date Comments Bacitracin Itching 02/20/2018 Ezetimibe 09/19/2008 Shellfish Allergy 03/25/2023 Sulfa Antibiotics 12/24/2017 Tramadol Itching 12/24/2017 documented as of this encounter (statuses as of 04/14/2024) Medications Medication Sig Dispensed Refills Start Date [...] mouth in the morning. Active Saline Nasal [place] 0.65 % Nasal Solution ([place]) Administer 1 [place] into nostril as needed for Congestion. 12/12/2023 [...] as of this encounter (statuses as of 04/14/2024) Active Problems Problem Noted Date Diagnosed Date [...] as of this encounter (statuses as of 04/14/2024) Resolved Problems Problem Noted Date Diagnosed Date [...] as of this encounter (statuses as of 04/14/2024) Immunizations Name Administration Dates Next Due COVID-19 mRNA, LNP-s, No Pre serve, 2-Dose Series (Vision 360 Deg[place] (V3D)) 08/19/2021,12/26/2020,12/05/2020 COVID-19, MRNA-LNP, 23-24, P F, 30 [...] - 04/14/2024 3:16 PM EDT Forwarded to [facility] scheduling to reach out to agency's to see who has availability * Telephone Encounter - Angelica Gomez OSA - 04/14/2024 2:55 PM EDT Incoming call received from Lillian at . Stated they cannot accept pt for services due to lack of availability. She recommended reaching out to [facility], [facility], or [facility] as they all cover the community [facility]. Routed to care team to further advise. documented in this encounter Plan of Treatment Upcoming Encounters Date Type Department Care Team (Late st Contact Info) Description 04/15/2024 6:00 AM EDT Anticoagulation Centralized Clinical Pharmacy Services, Milli Breen [address] [place] [address] [place] [address] [facility], [address] [place] [address] 04/15/2024 1:45 PM EDT Scheduled Telephone [facility] [address] [employer] [address] [place] [address] Coordinator, [facility] [address] [place] [address] 04/21/2024 7:00 AM EDT Laboratory Lab Mobile Phlebotomy [facility] [address] [place] [address] Mvmg, Gml Mobile Home Draw [address] [place], [place] [address] 04/28/2024 7:00 AM EDT Laboratory Lab Mobile Phlebotomy M[facility] [address] [place] [address] Mvmg, Gml Mobile Home Draw [address] [place] [address] 05/05/2024 7:00 AM EDT Laboratory Lab Mobile Phlebotomy M[facility] [address] [place] [address] Mvmg, Gml Mobile Home Draw [address] [place] [address] 05/12/2024 7:00 AM EDT Laboratory Lab Mobile Phlebotomy M[facility] [address] [place] [address] Mvmg, Gml Mobile Home Draw [address] [place] [address] 05/19/2024 7:00 AM EDT Laboratory Lab Mobile Phlebotomy M[facility] [address] [place] [address] Mvmg, Gml Mobile Home Draw 2520 [facility] [place] [address] 05/26/2024 7:00 AM EDT Laboratory Lab Mobile Phlebotomy M[facility] [address] [place] [address] Mvmg, Gml Mobile Home Draw 2520 [facility] [place], [place] [address] 05/29/2024 9:00 AM EDT [facility] [address] [place] [address] [facility] [address] [place] [address] 06/02/2024 7:00 AM EDT Laboratory Lab Mobile Phlebotomy M[facility] [address] [place], [place] [address] Mvmg, Gml Mobile Home Draw [address] [facility] [place] [address] 06/09/2024 7:00 AM EDT Laboratory Lab Mobile Phlebotomy M[facility] [address] [place] [address] Mvmg, Gml Mobile Home Draw [address] [facility] [place] [address] 06/16/2024 7:00 AM EDT Laboratory Lab Mobile Phlebotomy M[facility] [address] [place] [address] Mvmg, Gml Mobile Home Draw [address] [facility] [place] [address] 06/23/2024 7:00 AM EDT Laboratory Lab Mobile Phlebotomy [facility] [address] [place] [address] Mvmg, Gml Mobile Home Draw [address] [place] [address] 06/30/2024 7:00 AM EDT Laboratory Lab Mobile Phlebotomy [facility] [address] [place] [address] Mvmg, Gml Mobile Home Draw [address] [place] [address] 07/07/2024 7:00 AM EDT Laboratory Lab Mobile Phlebotomy [facility] [address] [place] [address] Mvmg, Gml Mobile Home Draw [address] [place] [address] 07/14/2024 7:00 AM EDT Laboratory Lab Mobile Phlebotomy [facility] [address] [place], [place] [address] Mvmg, Gml Mobile Home Draw [address] [place] [address] 07/21/2024 7:00 AM EDT Laboratory Lab Mobile Phlebotomy [facility] [address] [place], [place] [address] Mvmg, Gml Mobile Home Draw [address] [place], [place] [address] 07/28/2024 7:00 AM EDT Laboratory Lab Mobile Phlebotomy [facility] [address] [place], [place] [address] Mvmg, Gml Mobile Home Draw [address] [place] [address] 08/04/2024 7:00 AM EDT Laboratory Lab Mobile Phlebotomy [facility] [address] [place], [place] [address] Mvmg, Gml Mobile Home Draw [address] [place], [place] [address] 08/10/2024 10:40 AM EST Office Visit Family [facility] [place] [address] [facility] [place] [address] Angie Perez MD 200 [facility] [place] [address] 08/11/2024 7:00 AM EST Laboratory Lab Mobile Phlebotomy M[facility] 2520 [place] [address] Mvmg, Gml Mobile Home Draw 2520 [place] [address] 08/18/2024 7:00 AM EST Laboratory Lab Mobile Phlebotomy M[facility] [address] [employer] [facility] [place] [address] Mvmg, Gml Mobile Home Draw 2520 [place] [address] 08/25/2024 7:00 AM EST Laboratory Lab Mobile Phlebotomy M[facility] [address] [employer] [facility] [place] [address] Mvmg, Gml Mobile Home Draw [address] [place] [employer] [facility] [place] [address] 09/01/2024 7:00 AM EST Laboratory Lab Mobile Phlebotomy M[facility] 25[address] [place] [address] Mvmg, Gml Mobile Home Draw 2520 [place] [address] 09/08/2024 7:00 AM EST Laboratory Lab Mobile Phlebotomy M[facility] 25[address] [place] [address] Mvmg, Gml Mobile Home Draw [address] [employer] [facility] [place] [address] 2024 7:00 AM EST Laboratory Lab Mobile Phlebotomy M[facility] [address] [place] [address] Mvmg, Gml Mobile Home Draw 2520 [place] [address] 09/22/2024 7:00 AM EST Laboratory Lab Mobile Phlebotomy M[facility] [address] [place] [address] Mvmg, Gml Mobile Home Draw [address] [place] [address] [facility] [place] [address] 09/29/2024 7:00 AM EST Laboratory Lab Mobile Phlebotomy M[facility] 2520 [facility] [place] [address] Mvmg, Gml Mobile Home Draw 2520 [facility] [place] [address] 10/06/2024 7:00 AM EST Laboratory Lab Mobile Phlebotomy [facility] [address] [facility] [place] [address] Mvmg, Gml Mobile Home Draw [address] [facility] [place] [address] Health Maintenance Due Date Last Done Comments [...] D LEVEL ONCE IN A LIFETIME-USE SMARTSET# [id number] Completed 05/31/2020, 11/25/2019, 08/06/2019, Additional history exists [...] Care Agent (per Health Care Power of Pit Clerk document) Jo-Ann Rose Adult Child First Alternate Health Care Agent (per Health Care Power of Pit Clerk document) [email or web address] Care Teams Medical Photographer Relationship Specialty Start Date End Date Angie Perez MD [address] [place] [address] PCP - General Family Medicine 04/07/24 documented as of this encounter
--- OUTSIDE RECORDS SUMMARY | 2024-06-21 01:22 | External Medical Summary | Summary of Care ---
Author Name Unknown Organization [facility] Address [address] [place] [address] Phone [phone] Care Team Providers Care Exhaust Machine Operator Name Role Phone Angie Perez MD Primary Care Provider [phone] Reason for Visit * Reason Onset Date Comments [facility]: Maintenance 04/14/2024 [facility] health Encounter Details Date Type Department Care Team (Late st Contact Info) Description 04/14/2024 Telephone [facility], [facility] [address] [facility] [place] [id number] [facility], Nurse [facility] [address] [place] [facility] [place] [address] [facility]: Maintenance (Home healt... Allergies Active Allergy Reactions Criticality Noted Date [...] mouth in the morning. Active Saline Nasal [place] 0.65 % Nasal Solution ([place]) Administer 1 [place] into nostril as needed for Congestion. 4 [...] at lunchtime 180 Tablet 3 4 Active Warfarin Sodium 3 MG Oral Tablet (Coumadin)Indication s:History of DVT (deep vein thrombosis),Anticoag ulation management encounter Take 1 Tablet by mouth every evening. OR DIRECTED BY COUMADIN CLINIC 90 Tablet 3 4 Active Menthol-Zinc Oxide 0.44-20.6 % External Ointment (Calmoseptine) Apply thin layer to affected area with each change, up to 4 times daily 113 g 1 4 Active Triamcinolone Acetonide 0.1 % External Cream (Aristocort)Indicati ons:Non-pressure chronic ulcer of buttock, unspecified ulcer stage (HCC),Dermatitis,Ski n breakdown Apply topically to affected area 2 times a day. To affected area. 45 g 4 04/14/20 24 Discontinued documented as of this encounter [...] Encounter - Amy Peña LPN - 04/14/2024 2:05 PM EDT Images from the original note were not included. TT from RNDHRUV Cullen asking for HH referral dated 04/07 from pt's PCP Sandra Perez to be faxed to [facility] at [phone]. Requested a note be attached asking [facility] to notify [facility] if they can not accommodate HH request. Per Jose David Cullen if [facility] is unable to accept, pt will need to be referred to another HHagency Faxed HH referral, pt face sheet and PCP office note from 04/07 to [facility] at [phone] F/u call for tomorrow to check status documented in this encounter Plan of Treatment Upcoming Encounters Date Type Department Care Team (Late st Contact Info) Description 04/15/2024 6:00 AM EDT Anticoagulation [facility], Milli Breen [address] [place] [address] [place] [address] [facility], [address] [place] [address] 04/15/2024 1:45 PM EDT Scheduled Telephone [facility], [facility] [address] [place] [address] Coordinator, [facility] [address] [place] [address] 04/21/2024 7:00 AM EDT [facility] [address] [place] [address] Mvmg, [facility] Draw [address] [place] [address] 04/28/2024 7:00 AM EDT [facility] [address] [place] [address] Mvmg, [facility] Draw [address] [place] [address] 05/05/2024 7:00 AM EDT [facility] [address] [place] [address] Mvmg, [facility] Draw [address] [place] [address] 05/12/2024 7:00 AM EDT [facility] [address] [place] [address] Mvmg, [facility] Draw [address] [facility] [place] [address] 05/19/2024 7:00 AM EDT [facility]lebot[facility] [address] [place] [address] Mvmg, G[facility] Draw [address] [place] [address] 05/26/2024 7:00 AM EDT [facility] [address] [place] [address] Mvmg, G[facility] Home Draw [address] [facility] [place] [address] 05/29/2024 9:00 AM EDT [facility] [place] [address] Gustavo Begum PA-C [address] [place] [address] 06/02/2024 7:00 AM EDT [facility] [address] [place] [address] Mvmg, Gml [facility] Draw [address] [place] [address] 06/09/2024 7:00 AM EDT Laboratory [facility] Phlebotomy [facility] [address] [place] [address] Mvmg, Gml Mobile Home Draw [address] [place] [address] 06/16/2024 7:00 AM EDT Laboratory [facility] Phlebotomy [facility] [address] [facility] [place] [address] Mvmg, Gml Mobile Home Draw [address] [facility] [place] [address] 06/23/2024 7:00 AM EDT Laboratory [facility] Phlebotomy [facility] [address] [facility] [place] [address] Mvmg, Gml Mobile Home Draw [address] [facility] [place] [address] 06/30/2024 7:00 AM EDT Laboratory [facility] Phlebotomy [facility] [address] [facility] [place] [address] Mvmg, Gml Mobile Home Draw [address] [facility] [place] [address] 07/07/2024 7:00 AM EDT Laboratory [facility] Phlebotomy [facility] [address] [facility] [place] [address] Mvmg, Gml Mobile Home Draw [address] [facility] [place] [address] 07/14/2024 7:00 AM EDT Laboratory [facility] Phlebotomy [facility] [address] [facility] [place] [address] Mvmg, Gml [facility] Home Draw [address] [facility] [place] [address] 07/21/2024 7:00 AM EDT Laboratory [facility] Phlebotomy [facility] [address] [facility] [place] [address] Mvmg, Gml Mobile Home Draw [address] [facility] [place] [address] 07/28/2024 7:00 AM EDT Laboratory [facility] Mobile Phlebotomy [facility] [address] [facility] [place] [address] Mvmg, Gml Mobile Home Draw [address] [facility] [place] [address] 08/04/2024 7:00 AM EDT Laboratory [facility] Phlebotomy [facility] [address] [facility] [place] [address] Mvmg, Gml Mobile Home Draw [address] [facility] [place] [address] 08/10/2024 10:40 AM EST Office Visit [facility] [address] [place] [address] Angie Perez MD [address] [place] [address] 08/11/2024 7:00 AM EST Laboratory [facility] Phlebotomy [facility] [address] [facility] [place] [address] Mvmg, Gml Mobile Home Draw [address] [facility] [place], [place] [address] 08/18/2024 7:00 AM EST Laboratory [facility] Phlebotomy [facility] [address] [place] [address] Mvmg, Gml Mobile Home Draw [address] [facility] [place] [address] 08/25/2024 7:00 AM EST Laboratory [facility] Phlebotomy [facility] [address] [place] [address] Mvmg, Gml [facility] Home Draw [address] [facility] [place] [address] 09/01/2024 7:00 AM EST Laboratory Lab Mobile Phlebotomy [facility] [address] [facility] [place] [address] Mvmg, Gml Mobile Home Draw [address] [facility] [place] [address] 09/08/2024 7:00 AM EST Laboratory [facility] Phlebotomy [facility] [address] [facility] [place] [address] Mvmg, Gml Mobile Home Draw [address] [facility] [place] [address] 2024 7:00 AM EST Laboratory Lab Mobile Phlebotomy [facility] [address] [facility] [place] [address] Mvmg, Gml Mobile Home Draw [address] [facility] [place] [address] 09/22/2024 7:00 AM EST Laboratory [facility] Mobile Phlebotomy [facility] [address] [facility] [place] [address] Mvmg, Gml Mobile Home Draw [address] [facility] [place] [address] 09/29/2024 7:00 AM EST Laboratory Lab Mobile Phlebotomy [facility] [address] [facility] [place] [address] Mvmg, Gml Mobile Home Draw [address] [facility] [place] [address] 10/06/2024 7:00 AM EST Laboratory [facility] Mobile Phlebotomy [facility] [address] [facility] [place] [address] Mvmg, Gml [facility] Home Draw [address] [facility] [place] [address] Health Maintenance Due Date Last Done Comments [...] D LEVEL ONCE IN A LIFETIME-USE SMARTSET# [id number] Completed 05/31/2020, 11/25/2019, 08/06/2019, Additional history exists [...] Care Agent (per Health Care Power of Computer Networking Instructor document) oJ-Ann Rose Adult Child First Alternate Health Care Agent (per Health Care Power of Computer Networking Instructor document) [email or web address] Care Teams Exhaust Machine Operator Relationship Specialty Start Date End Date Angie Perez MD [address] [place] [address] PCP - General Family Medicine 04/07/24 documented as of this encounter
--- OUTSIDE RECORDS SUMMARY | 2024-06-21 01:22 | External Medical Summary | Summary of Care ---
Author Name Unknown Organization [facility] Address [address] [place] [address] Phone [phone] Care Team Providers Care Chip Silo Tender Name Role Phone Angie Perez MD Primary Care Provider [phone] Reason for Visit * Reason Comments Dosage Adjustment Via Phone (anticoag Cl inic) * Evaluate & Treat - Unlimited Visits (Within 3 days (urgent)) - Authorized Specialty Diagnoses / Procedures Referred By Contac t Referred To Contact ANTI-COAG CLINIC / Pharmacy Diagnoses Anticoagulation management encounter Julissa Jean, [facility] [address] [place] [address] Referral ID Status Reason Start Date Expiration Date Visits Requested Visits Authorized [id number] Authorized Specialty Services Required 04/07/2024 10/04/2024 99 99 Encounter Details Date Type Department Care Team (Late st Contact Info) Description 04/15/2024 6:00 AM EDT Anticoagulation Centralized Clinical Pharmacy Services, Milli Breen [address] [place] [address] [place] [address] [facility], [address] [place] [address] Anticoagulation management encounter* Allergies Active Allergy Reactions [...] mouth in the morning. Active Saline Nasal [place] 0.65 % Nasal Solution ([place]) Administer 1 [place] into nostril as needed for Congestion. 12/12/2023 [...] mRNA, LNP-s, No Pre serve, 2-Dose Series (Zilliant) 08/19/2021,12/26/2020,12/05/2020 COVID-19, MRNA-LNP, 23-24, P F, 30 MCG/0.3 mL, 12 YRS AND ABOVE, IM (AB Group) 03/05/2024 Covid-19, Mrna, Lnp-s, Pf, B ivalent, 30 Mcg, IM, 12 yrs and above (Zilliant) 07/30/2023 H1N1 2009 Influenza, IM 08/10/2009 Pneumococcal [...] as of this encounter Progress Notes * Mariajose Orozco CPhT - 04/15/2024 9:13 AM EDT Contacts Type Contact Phone/Fax 04/15/2024 09:05 AM EDT Phone (Outgoing) Jo-Ann Rose (Emergency Contact) [phone] (H) Subjective Patient Findings Negatives: Signs/symptoms of bleeding, Change in health, Change in activity, Upcoming invasive procedure, Missed doses, Extra doses, Change in medications, Change in diet/appetite, Bruising Advised patient to contact Anticoagulation Clinic if any unusual bruising or bleeding, recent illness, changes in medication, or questions/concerns. PT/INR results, Coumadin dose instructions, and next PT/INR date communicated as noted by Pharmacist: Yes Mariajose Orozco CPhT 04/15/2024, 9:13 AM * Julissa Jean RPh - 04/15/2024 8:23 AM EDT Images from the original note were not included. Coumadin Clinic (region specific) Objective Current Warfarin Dose As of 04/15/2024 Warfarin maintenance plan: 5 mg (1 mg x 5) every Fri; 3 mg (1 mg x 3) all other days INR Result As of 04/15/2024 INR goal: 2.0-3.0 INR used for dosin.8 (04/14/2024) Assessment & Plan Warfarin Plan As of 04/15/2024 Full warfarin instructions: 04/15: 6 mg; Otherwise 5 mg every Mon, Fri; 3 mg all other days Next INR check: 04/23/2024 Repeat PT/INR in 1.5 week(s) Weekly dose: increased Additional Dosing Information: Description L [facility] Tech to contact patient with dose instructions as noted. Julissa Jean RPh 04/15/2024, 8:23 AM documented in this encounter Plan of Treatment Upcoming Encounters Date Type Department Care Team (Late st Contact Info) Description 04/15/2024 1:45 PM EDT Scheduled Telephone [facility], [facility] [address] [place] [address] Coordinator, [facility] [address] [facility] [place] [address] 04/21/2024 7:00 AM EDT Laboratory Lab Mobile Phlebotomy [facility] [address] [place], [place] [address] Mvmg, Gml Mobile Home Draw [address] [place], [place] [address] 04/28/2024 7:00 AM EDT Laboratory [facility] Mobile Phlebotomy [facility] [address] [place], [place] [address] Mvmg, Gml Mobile Home Draw [address] [place] [address] 05/05/2024 7:00 AM EDT Laboratory [facility] Mobile Phlebotomy [facility] [address] [place], [place] [address] Mvmg, Gml Mobile Home Draw [address] [place] [address] 05/12/2024 7:00 AM EDT Laboratory [facility] Phlebotomy [facility] [address] [place] [address] Mvmg, Gml Mobile Home Draw [address] [place] [address] 05/19/2024 7:00 AM EDT Laboratory [facility] Phlebotomy [facility] [address] [place] [address] Mvmg, Gml Mobile Home Draw [address] [place] [address] 05/26/2024 7:00 AM EDT [facility] Phlebotomy [facility] [address] [place] [address] Mvmg, Gml Mobile Home Draw [address] [place], [place] [address] 05/29/2024 9:00 AM EDT [facility] Visit [facility], [place] [facility] [address] [place] [address] Gustavo Begum PA-C [address] [place] [address] 06/02/2024 7:00 AM EDT Laboratory [facility] Phlebotomy [facility] [address] [place], [place] [address] Mvmg, Gml Mobile Home Draw [address] [place], [place] [address] 06/09/2024 7:00 AM EDT [facility] Phlebotomy [facility] [address] [place], [place] [address] Mvmg, Gml Mobile Home Draw [address] [place] [address] 06/16/2024 7:00 AM EDT Laboratory [facility] Phlebotomy [facility] [address] [place], [place] [address] Mvmg, Gml Mobile Home Draw [address] [place] [address] 06/23/2024 7:00 AM EDT Laboratory [facility] Phlebotomy [facility] [address] [place] [address] Mvmg, Gml Mobile Home Draw [address] [place] [address] 06/30/2024 7:00 AM EDT Laboratory [facility] Phlebotomy [facility] [address] [place] [address] Mvmg, Gml Mobile Home Draw [address] [place] [address] 07/07/2024 7:00 AM EDT Laboratory [facility] Phlebotomy [facility] [address] [place] [address] Mvmg, Gml Mobile Home Draw [address] [place], [place] [address] 07/14/2024 7:00 AM EDT Laboratory [facility] Phlebotomy [facility] [address] [place] [address] Mvmg, Gml Mobile Home Draw [address] [place] [address] 07/21/2024 7:00 AM EDT Laboratory [facility] Phlebotomy [facility] [address] [place] [address] Mvmg, Gml Mobile Home Draw [address] [place] [address] 07/28/2024 7:00 AM EDT Laboratory [facility] Phlebotomy [facility] [address] [place], [place] [address] Mvmg, Gml Mobile Home Draw [address] [place] [address] 07/29/2024 11:30 AM EDT [facility] [address] [facility] [place] [address] Sandra Cullen RN 132 [facility] [place] [address] 08/04/2024 7:00 AM EDT Laboratory Lab Mobile Phlebotomy [facility] [address] [place], [place] [address] Mvmg, Gml Mobile Home Draw [address] [place] [address] 08/10/2024 10:40 AM EST Office Visit Family Practice [facility] [place] [address] [place], [place] [address] Angie Perez MD [address] [place] [address] 08/11/2024 7:00 AM EST Laboratory [facility] Phlebotomy [facility] [address] [place] [address] Mvmg, Gml Mobile Home Draw [address] [place] [address] 08/18/2024 7:00 AM EST Laboratory [facility] Mobile Phlebotomy [facility] [address] [place] [address] Mvmg, Gml Mobile Home Draw [address] [place] [address] 08/25/2024 7:00 AM EST Laboratory Lab Mobile Phlebotomy [facility] [address] [place] [address] Mvmg, Gml Mobile Home Draw [address] [place] [address] 09/01/2024 7:00 AM EST Laboratory Lab Mobile Phlebotomy [facility] [address] [place] [address] Mvmg, Gml Mobile Home Draw [address] [place] [address] 09/08/2024 7:00 AM EST Laboratory Lab Mobile Phlebotomy [facility] [address] [place] [address] Mvmg, Gml Mobile Home Draw [address] [place] [address] 2024 7:00 AM EST Laboratory Lab Mobile Phlebotomy [facility] [address] [place] [address] Mvmg, Gml Mobile Home Draw [address] [place] [address] 09/22/2024 7:00 AM EST Laboratory Lab Mobile Phlebotomy [facility] [address] [place] [address] Mvmg, Gml Mobile Home Draw [address] [place] [address] 09/29/2024 7:00 AM EST Laboratory Lab Mobile Phlebotomy [facility] [address] [place] [address] Mvmg, Gml Mobile Home Draw [address] [place] [address] 10/06/2024 7:00 AM EST Laboratory [facility] Phlebotomy [facility] [address] [place], [place] [address] Mvmg, Gml Mobile Home Draw [address] [place] [address] Scheduled Referrals Name Type Priority Associated Diagnoses Orde r Schedule ANTI-COAGULATION REFERRAL OP Referral Within 3 days (urgent) Anticoagulation management encounter Ordered: 04/07/2024 Health Maintenance Due Date Last Done Comments [...] D LEVEL ONCE IN A LIFETIME-USE SMARTSET# [id number] Completed 05/31/2020, 11/25/2019, 08/06/2019, Additional history exists [...] monitoring documented in this encounter Advance Directives Healthcare Agents on File Name Relationship Healthcare Agent Relationship Communication Tank Haq Adult Child First Alternate Health Care Agent (per Health Care Power of Bessemer Bottom Maker document) Jo-Ann Rose Adult Child First Alternate Health Care Agent (per Health Care Power of Bessemer Bottom Maker document) [email or web address] Care Teams Chip Silo Tender Relationship Specialty Start Date End Date Angie Perez MD [address] [facility] [place] [address] PCP - General Family Medicine 04/07/24 documented as of this encounter
--- OUTSIDE RECORDS SUMMARY | 2024-06-21 01:22 | External Medical Summary | Summary of Care ---
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 Active Saline Nasal Atwood 0.65 % Nasal Solution (Hamler) Administer 1 Atwood into nostril as needed for Congestion. 4 [...] Sprays into nostril in the morning. Active Triamcinolone Acetonide 0.1 % External Cream [...] mRNA, LNP-s, No Pre serve, 2-Dose Series (ENDYMION) 08/19/2021,12/26/2020,12/05/2020 COVID-19, MRNA-LNP, 23-24, P F, 30 MCG/0.3 mL, 12 YRS AND ABOVE, IM ([facility] 03/05/2024 Covid-19, Mrna, Lnp-s, Pf, B ivalent, 30 Mcg, IM, 12 yrs and above (ENDYMION) 07/30/2023 H1N1 2009 Influenza, IM 08/10/2009 Pneumococcal [...] Sign Reading Time Taken Comments Blood Pressure 136/72 04/14/2024 1:59 PM EDT Pulse 85 04/14/2024 1:59 PM EDT Temperature 36.6 C (97.9 F) 04/14/2024 1:59 PM ED T Respiratory Rate 16 04/14/2024 1:59 PM EDT Oxygen Saturation 96% 04/14/2024 1:59 PM EDT Inhaled Oxygen Concentration - - Weight - [...] as of this encounter Progress Notes * Sandra Cullen RN - 04/14/2024 12:13 PM EDT Images from the original note were not included. 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 DNI. Comfort measures only. Do not send to hospital unless comfort cannot be achieved at home. Sandra Cullen RN 04/14/2024 3:28 PM Assessment: Sitting in w/c in living room Sits on pressure relief cushion Transfers with full assist from Daughter and grandson Has Shahriar Lift - has not been trained in use HH has been ordered but they have not yet heard from an agency T/c to [facility] Nahum CRUZ, they declined pt upon receipt of referral d/t staffing, are willing to review again at this time, need referral refaxed - message sent to COMMISSION CLERK Role in TT - asked to include instruction to call [facility] intake number if unable to accept referral Pt and Jo-Ann states that pt is fearful of falling Hx of falls with b/l hip fx at separate times Has PU on buttocks Has apt with Wound Clinic next week Uses two different Medical Transport Services Family assisted pt back into bed Wounds superficial No drainage Surrounding tissue pink, blanches No s/s infection No fever/chills Recommendation: Position changes q2H, sleep on side at night - demonstrated to Jo-Ann and pt how to position on sides, both verbalize understanding Physical Exam: BP 136/72 | Pulse 85 | Temp 36.6 C (97.9 F) | Resp 16 | SpO2 96% Pain 0 Physical Exam Constitutional: Appearance: She is normal weight. HENT: Nose: Nose normal. Mouth/Throat: Mouth: Mucous membranes are moist. Cardiovascular: Rate and Rhythm: Normal rate and regular rhythm. Pulses: Normal pulses. Heart sounds: Normal heart sounds. Pulmonary: Effort: Pulmonary effort is normal. Breath sounds: Normal breath sounds. Abdominal: General: There is no distension. Palpations: Abdomen is soft. Musculoskeletal: Right lower leg: No edema. Left lower leg: No edema. Skin: General: Skin is warm and dry. Capillary Refill: Capillary refill takes less than 2 seconds. Neurological: General: No focal deficit present. Mental Status: She is alert. Mental status is at baseline. Psychiatric: Mood and Affect: Mood normal. Behavior: Behavior normal. Thought Content: Thought content normal. Judgment: Judgment normal. Problems/Symptoms: Review of Systems Constitutional: Negative. HENT: Negative. Eyes: Negative. Respiratory: Negative. Cardiovascular: Negative. Gastrointestinal: Negative. Endocrine: Negative. Genitourinary: Negative. Musculoskeletal: Positive for arthralgias and gait problem (w/c bound). Skin: Positive for wound. Allergic/Immunologic: Negative. Neurological: Positive for dizziness (occasional) and weakness (L sided weakness d/t CVA, RLE weakness). Hematological: Negative. Psychiatric/Behavioral: Negative. Medication Reconciliation: (See medication list) Does patient take medications as ordered: Yes Patient Well Being: Had been living at [facility] with , was tx to [facility] ([facility]) after his passing, now living with daughter, Jo-Ann, has L-sided hemiplegia, mobilizes with w/c, full transfer to bed/w/c, has Shahriar Lift, Jo-Ann is primary cg [facility] Completed this Visit: Yes. [facility]: Reason Completed: Enrollment [facility] ([place] [facility]) Fall Risk Assessment Tool Age 65+: Yes (04/14/241399) Diagnosis (3 or more co-existing): Yes (04/14/241399) Prior history of falls within 3 months: No (04/14/241399) Incontinence: Yes (04/14/241399) Visual impairment: No (04/14/241399) Impaired functional mobility: Yes (04/14/241399) Environmental hazards: No (04/14/241399) Poly Pharmacy (4 or more prescriptions - any type): Yes (04/14/241399) Pain affecting level of function: Yes (04/14/241399) Cognitive impairment: No (04/14/241399) Score - a score of 4 or more is considered at risk for fallin (04/14/241399) [facility] Interventions: Fall education provided, reviewed/provided Fall brochure Advanced Care Planning: Living Will. , Healthcare POA., and POLST. Reinforcement/Education: Instructed to report any signs of infection: Redness, swelling, uncontrolled pain, green/yellow drainage, foul odor or fever. . Reinforced safety education and fall prevention., Reinforced incisional/wound care., and Reinforcedmedication regimen. Timing., Dosing., and Purspose. Treatment/Plan: DNR/DNI DAVID/SHELLEY COLLADO in home 04/14/24 - OOH DNR completed, will have signed/returned to pt HH through [facility] if they are willing to accept - referral refaxed to them Mobilizes with w/c (L hemiplegia) Full transfer with 2 assist or Shahriar Lift Enrolled with [facility] Wound care managed by [facility] - first visit mid April Has not yet picked up Calmoseptine but is aware Rx at pharmacy Instructed NOT to use any steroidal creams on PUs Using Zinc Oxide - reviewed proper use with only removing top layer of cream, NO scrubbing of skin to remove creams Reposition q2h Pressure relief cushion on W/C and air matress on bed - continue to use Continue high protein diet (pt likes protein and eats multiple servings daily Home Interventions Provided: Reinforced current Plan of Care, including self-management and medication regimen Updated Advanced Care Planning Note Updated Exacerbation Plan Patient's 'Red Flags': Signs of infection: Redness, swelling, uncontrolled pain, green/yellow drainage, foul odor or fever. No BM x 3 days (hx constipation, fistula) New onset weakness, confusion Patient's Goals of Care: Wound healing Stay in home with Jo-Ann Improve mobility Patient Needs to Remember: Call [facility] with any Red Flags Has [facility] number - [phone], agrees to call with concerns Pt's daughter verbalized understaning of Plan and provides verbal teachback for Red Flags Referrals Needed: Other none Follow Up: Is there cellular connectivity/connectivity in the home? Yes Does the patient have internet in the home? Yes Patient encouraged to call the intake phone number for all urgent but not emergent issues. Is the patient new to [facility] within the last 30 days? Yes, Is this a Transitions of Care visit? No Provider is in agreement with Plan of Care: Yes Scheduled to follow up with patient: 05/29 with Gustavo Begum PA-C Order placed for SELENE visit around 06/29 07/29 with RNDHRUV Cullen RN 04/14/2024 12:13 PM documented in this encounter Miscellaneous Notes * ACP (Advance Care Planning) - Sandra Cullen RN - 04/14/2024 2:59 PM EDT Patient-centered Communication 04/14/2024 The patient/surrogate voluntarily agreed to participate in advance care planning discussion. They were advised that this is a separate service which may incur out of pocket cost in the form of copayment and/or deductibles. Location: Home Individual(s) present for conversation: Daughter(s) Decisions Synopsis SmartLink Most Recent Value Past ~10 years 04/14/2024 15:21 Decisions CPR decision: Declines CPR 04/14/2024 Declines CPR Intubation/Mechanical Ventilation decision: Declines Intubation/mechanical ventilation 04/14/2024 Declines Intubation/mechanical ventilation Non-invasive ventilation or BIPAP decision: Declines all non-invasive ventilation 04/14/2024 Declines all non-invasive ventilation Antibiotic therapy decision: Declines Antibiotic therapy 04/14/2024 Declines Antibiotic therapy Artificial nutrition decision: Declines Artificial nutrition 04/14/2024 Declines Artificial nutrition Chemotherapy decision: Declines Chemotherapy 04/14/2024 Declines Chemotherapy Radiation therapy decision: Declines Radiation therapy 04/14/2024 Declines Radiation therapy Surgical procedure(s) decision: Declines Surgical procedure 04/14/2024 Declines Surgical procedure Lab draw decision: Patient chooses Lab draws 04/14/2024 Patient chooses Lab draws Additional Comments Synopsis SmartLink Most Recent Value Past ~10 years 04/14/2024 15:21 Additional Comments Additional Comments: has TOBIAS HERNANDEZ, provided with copy to have uploaded to chart, has POLST in home,uploaded to Epic, OOH DNR signed by Jo-Ann, will have signed by and returned to ptJo-Ann instructed to keep POLST and OOH DNR on fridge 04/14/2024 has TOBIAS HERNANDEZ, provided with copy to have uploaded to chart, has POLST in home, uploaded toEpic, OOH DNR signed by Jo-Ann, will have signed by and returned to ptJo-Ann instructed to keep POLST and OOH DNR on fridge Discerning What Matters Most to the Patient: Source: Content from Respecting Choices Program Aligning Care With What Matters Most: Synopsis SmartLink Most Recent Value Past ~10 years 04/14/2024 15:21 Aligning Care With What Matters Most Interventions/Choices: CPR;Intubation/mechanical ventilation;Non-invasive ventilation or BIPAP;Artificial nutrition;IV hydration;Chemotherapy;Radiation therapy;Surgical procedure;Antibiotic therapy;Lab draws 04/14/2024 CPR;Intubation/mechanical ventilation;Non-invasive ventilation or BIPAP;Artificial nutrition;IV hydration;Chemotherapy;Radiation therapy;Surgical procedure;Antibiotic therapy;Lab draws Rationale for Decisions Source: Content from Respecting Choices Program 15 minutes spent in direct [id number] discussion today, Sandra Cullen, RN documented in this encounter Plan of Treatment Upcoming Encounters Date Type Department Care Team (Late st Contact Info) Description 04/15/2024 6:00 AM EDT Anticoagulation [facility], Milli Breen [address] [place] [address] [place] [address] [place] [address] 04/15/2024 1:45 PM EDT Scheduled Telephone [facility], [facility] [address] [place] [address] Coordinator, [facility] [address] [place] [address] 04/21/2024 7:00 AM EDT Laboratory [facility] [address] [place] [address] [facility] [address] [address] 04/28/2024 7:00 AM EDT Laboratory Lab [facility] [address] [place] [address] [facility] [address] [place] [address] 05/05/2024 7:00 AM EDT Laboratory Lab [facility] [address] [place] [address] [facility] [address] [address] 05/12/2024 7:00 AM EDT Laboratory Lab [facility] [address] [place] [address] [facility] [address] [place] [address] 05/19/2024 7:00 AM EDT Laboratory Lab [facility] [address] [place] [address] [facility], [facility] [address] [address] 05/26/2024 7:00 AM EDT Laboratory Lab [facility] [address] [place] [address] [facility] [address] [place] [address] 05/29/2024 9:00 AM EDT Home Visit [facility], [facility] [address] [place] [address] Gustavo Begum PA-C [address] [place] [address] 06/02/2024 7:00 AM EDT Laboratory Lab [facility] [address] [place], [place] [address] [facility], [facility] [address] [employer] [place], [place] [address] 06/09/2024 7:00 AM EDT Laboratory Lab [facility] [address] [place] [address] [facility] [address] [place], [place] [address] 06/16/2024 7:00 AM EDT Laboratory Lab [facility] [address] [place], [place] [address] [facility] [address] [place] [address] 06/23/2024 7:00 AM EDT Laboratory Lab [facility] [address] [place], [place] [address] [facility], [facility] [address] [address] 06/30/2024 7:00 AM EDT Laboratory Lab [facility] [address] [place], [place] [address] [facility], [facility] [address] [place] [address] 07/07/2024 7:00 AM EDT Laboratory Lab [facility] [address] [place], [place] [address] [facility] [address] [place] [address] 07/14/2024 7:00 AM EDT Laboratory Lab [facility] [address] [place] [address] [facility] [address] [facility] [place], [place] [address] 07/21/2024 7:00 AM EDT Laboratory Lab [facility] [address] [facility] [place], [place] [address] [facility] [address] [facility] [place] [address] 07/28/2024 7:00 AM EDT Laboratory Lab [facility] [address] [place] [address] [facility] [address] [facility] [place], [place] [address] 07/29/2024 11:30 AM EDT Home Visit [facility] [address] [place] [address] Sandra Cullen, RN [address] [place] [address] 08/04/2024 7:00 AM EDT Laboratory Lab [facility] [address] [facility] [place], [place] [address] [facility] [address] [facility] [place], [place] [address] 08/10/2024 10:40 AM EST Office Visit Family [facility] [address] [place], [place] [address] Angie Perez MD [address] [facility] [place] [address] 08/11/2024 7:00 AM EST Laboratory Lab [facility] [address] [facility] [place], [place] [address] [facility] [address] [address] 08/18/2024 7:00 AM EST Laboratory Lab [facility] [address] [facility] [place] [address] [facility] [address] [facility] [place] [address] 08/25/2024 7:00 AM EST Laboratory Lab [facility] [address] [facility] [place] [address] [facility], [facility] [address] [facility] [place] [address] 09/01/2024 7:00 AM EST Laboratory Lab [facility] [address] [facility] [place] [address] [facility] [address] [place] [address] 09/08/2024 7:00 AM EST Laboratory Lab [facility] [address] [facility] [place] [address] [facility] [address] [place] [address] 2024 7:00 AM EST Laboratory Lab [facility] [address] [facility] [place] [address] [facility] [address] [place] [address] 09/22/2024 7:00 AM EST Laboratory Lab [facility] [address] [facility] [place] [address] [facility] [address] [facility] [place] [address] 09/29/2024 7:00 AM EST Laboratory Lab [facility] [address] [facility] [place] [address] [facility] [address] [facility] [place] [address] 10/06/2024 7:00 AM EST Laboratory Lab [facility] [address] [facility] [place] [address] [facility] [address] [place] [address] Health Maintenance Due Date Last Done Comments [...] D LEVEL ONCE IN A LIFETIME-USE SMARTSET# [id number] Completed 05/31/2020, 11/25/2019, 08/06/2019, Additional history exists [...] as of this encounter Visit Diagnoses Diagnosis Advanced care planning/counseling discussion- Primary Other specified counseling Hemiplegia and hemiparesis following cerebral infarction affecting left non- dominant side (HCC) documented in this encounter Advance Directives Healthcare Agents on File Name Relationship Healthcare Agent Relationship Communication Tank Haq Adult Child First Alternate Health Care Agent (per Health Care Power of Spray Foam Installer document) Jo-Ann Rose Adult Child First Alternate Health Care Agent (per Health Care Power of Spray Foam Installer document) [email or web address] Care Teams Manager Transition Relationship Specialty Start Date End Date Angie Perez MD [address] [facility] [place] [address] PCP - General Family Medicine 04/07/24 documented as of this encounter"
--- OUTSIDE RECORDS SUMMARY | 2024-06-21 01:23 | External Medical Summary | Summary of Care ---
Author Name Unknown Organization [facility] Address [address] [place] [address] Phone [phone] Care Team Providers Care Sales Representative [employer] Name Role Phone Angie Perez MD Primary Care Provider [phone] Encounter Details Date Type Department Care Team (Late st Contact Info) Description 04/14/2024 Orders Only Family Practice [facility] [address] [facility] [place] [address] Angie Perez MD [address] [place] [address] Anticoagulation management encounter*; HTN, goal below 150/90 Allergies Active Allergy [...] mouth in the morning. Active Saline Nasal [place] 0.65 % Nasal Solution (Daniels) Administer 1 [place] into nostril as needed for Congestion. 12/12/2023 Active Saccharomyces boulardii 250 MG Oral Packet Take 250 mg by mouth in the morning. 12/12/2023 Active Polyethylene Glycol 3350 17 GM/SCOOP Oral Powder (MiraLax) Take 17 g by mouth in the morning and 17 g before bedtime. Dissolve one heaping tablespoon in 8 ounces of water or juice.. 02/13/2024 Active Triamcinolone Acetonide 0.1 % External Cream (Aristocort)Indicatio ns:Non-pressure chronic ulcer of buttock, unspecified ulcer stage (HCC),Dermatitis,Skin breakdown Apply topically to affected area 2 times a day. To affected area. 45 g 04/03/2024 Active Atorvastatin Calcium 40 MG Oral Tablet [...] each change, up to 4 times daily 100 g 1 04/13/2024 Active documented as of this encounter (statuses [...] mRNA, LNP-s, No Pre serve, 2-Dose Series ([employer]) 08/19/2021,12/26/2020,12/05/2020 COVID-19, MRNA-LNP, 23-24, P F, 30 MCG/0.3 mL, 12 YRS AND ABOVE, IM ([facility] 03/05/2024 Covid-19, Mrna, Lnp-s, Pf, B ivalent, 30 Mcg, IM, 12 yrs and above ([employer]) 07/30/2023 H1N1 2009 Influenza, IM 08/10/2009 Pneumococcal [...] Description 04/14/2024 2:00 PM EDT [facility] Visit [facility] [address] [place] [address] Sandra Cullen, RN [address] [place] [address] 04/15/2024 6:00 AM EDT Anticoagulation Centralized Clinical Pharmacy Services, [facility] [address] [place] [address] [place] [address] Ccps, [address] [place] [address] 04/21/2024 7:00 AM EDT [facility] [address] [place] [address] Mvmg, [facility] [address] [place] [address] 04/28/2024 7:00 AM EDT [facility] [address] [place] [address] Mvmg, [facility] [address] [place] [address] 05/05/2024 7:00 AM EDT [facility] [address] [place] [address] Mvmg, [facility] [address] [place] [address] 05/12/2024 7:00 AM EDT [facility] [address] [place] [address] Mvmg, [facility] [address] [place] [address] 05/19/2024 7:00 AM EDT [facility] [address] [place] [address] Mvmg, [facility] [address] [place] [address] 05/26/2024 7:00 AM EDT [facility] [address] [place], [place] [address] Mvmg, [facility] [address] [place], [place] [address] 05/29/2024 9:00 AM EDT [facility], [facility] [address] [place] [address] Gustavo Begum PA-C [address] [place] [address] 06/02/2024 7:00 AM EDT [facility] [address] [place], [place] [address] Mvmg, [facility] [address] [place], [place] [address] 06/09/2024 7:00 AM EDT [facility] [address] [place], [place] [address] Mvmg, [facility] [address] [facility] [place] [address] 06/16/2024 7:00 AM EDT [facility] [address] [place], [place] [address] Mvmg, [facility] [address] [place] [address] 06/23/2024 7:00 AM EDT [facility] [address] [place] [address] Mvmg, [facility] [address] [facility] [place] [address] 06/30/2024 7:00 AM EDT [facility] [address] [place] [address] Mvmg, [facility] [address] [place] [address] 07/07/2024 7:00 AM EDT [facility] [address] [place] [address] Mvmg, [facility] [address] [place] [address] 07/14/2024 7:00 AM EDT [facility] [address] [place], [place] [address] Mvmg, [facility] [address] [place] [address] 07/21/2024 7:00 AM EDT [facility] [address] [place] [address] Mvmg, [facility] [address] [place] [address] 07/28/2024 7:00 AM EDT [facility] [address] [place], [place] [address] Mvmg, [facility] [address] [place] [address] 08/04/2024 7:00 AM EDT [facility] [address] [place] [address] Mvmg, [facility] [address] [place] [address] 08/10/2024 10:40 AM EST Office Visit [facility] [address] [place], [place] [address] Angie Perez MD [address] [place] [address] 08/11/2024 7:00 AM EST Laboratory [facility] [address] [place] [address] Mvmg, [facility] [address] [place], [place] [address] 08/18/2024 7:00 AM EST Laboratory [facility] [address] [place], [place] [address] Mvmg, [facility] [address] [place] [address] 08/25/2024 7:00 AM EST Laboratory [facility] [address] [address] Mvmg, [facility] [address] [facility] [place] [address] 09/01/2024 7:00 AM EST Laboratory [facility] [address] [facility] [place] [address] Mvmg, [facility] [address] [facility] [place] [address] 09/08/2024 7:00 AM EST [facility] [address] [facility] [place] [address] Mvmg, [facility] [address] [facility] [place] [address] 2024 7:00 AM EST Laboratory [facility] [address] [facility] [place] [address] Mvmg, [facility] [address] [facility] [place] [address] 09/22/2024 7:00 AM EST Laboratory [facility] [address] [facility] [place] [address] Mvmg, G[facility] Draw [address] [facility] [place] [address] 09/29/2024 7:00 AM EST Laboratory [facility] [address] [facility] [place] [address] Mvmg, G[facility] Draw [address] [facility] [place] [address] 10/06/2024 7:00 AM EST Laboratory [facility] [address] [facility] [place] [address] Mvmg, [facility] [address] [facility] [place] [address] Scheduled Orders Name Type Priority Associated Diagnoses Orde r Schedule BASIC METABOLIC PANEL Lab Routine HTN, goal below 150/90 Expected: 04/14/2024 (Approximate), Expires: 04/14/2025 PT INR Lab Routine Anticoagulation management encounter Expected: 04/14/2024 (Approximate), Expires: 04/14/2025 Health Maintenance Due Date Last Done Comments [...] D LEVEL ONCE IN A LIFETIME-USE SMARTSET# [id number] Completed 05/31/2020, 11/25/2019, 08/06/2019, Additional history exists [...] encounter- Primary Encounter for therapeutic drug monitoring HTN, goal below 150/90 documented in this encounter Care Teams Sales Representative [employer] Relationship Specialty Start Date End Date Angie Perez MD [address] [place] [address] PCP - General Family Medicine 04/07/24 documented as of this encounter
--- OUTSIDE RECORDS SUMMARY | 2024-06-21 01:23 | External Medical Summary ---
Author Name Unknown Address Unknown Organization [facility] [place] [address] [place] [id number] Laboratory Report Ordering Provider Test Date Status WES JOSEPH 04/14/2024 08:05:00 Final Observation Date Value Abnormality Reference (Units ) Status BUN 04/14/2024 08:05:00 18 6-20 (mg/dL) Final Creatinine 04/14/2024 08:05:00 0.8 0.5-1.0 (mg/dL) Final Glomerular filtration rate/1.73 sq M.predicted [Volume Rate/Area] in Serum, Plasma or Blood by Creatinine-based formula (CKD-EPI) 04/14/2024 08:05:00 72 >=60 (mL/min) Final eGFR is calculated based on the CKD-EPI 2020 equation Sodium 04/14/2024 08:05:00 140 135-146 (m mol/L) Final Potassium 04/14/2024 08:05:00 4.4 3.5-5.1 (m mol/L) Final Cl 04/14/2024 08:05:00 107 98-107 (mm ol/L) Final CO2 04/14/2024 08:05:00 26 22-32 (mmo l/L) Final Anion gap 04/14/2024 08:05:00 7 7-15 (mmol /L) Final Glucose 04/14/2024 08:05:00 89 70-120 (mg /dL) Final Calcium 04/14/2024 08:05:00 9.4 8.4-10.2 ( mg/dL) Final Performing Location [facility] [address] - [address] [place] [address]
--- OUTSIDE RECORDS SUMMARY | 2024-06-21 01:23 | External Medical Summary | Summary of Care ---
Author Name Unknown Organization [facility] Address [address] [place] [address] Phone [phone] Care Team Providers Care Warp Doffer Name Role Phone Angie Perez MD Primary Care Provider [phone] Reason for Visit * Reason Onset Date Comments [facility]: Maintenance 04/14/2024 Encounter Details Date Type Department Care Team (Late st Contact Info) Description 04/14/2024 Telephone [facility], [facility] [address] [place] [address] [facility], Nurse [facility] [address] [place] [address] [facility]: Maintenance Allergies Active Allergy [...] mouth in the morning. Active Saline Nasal [place] 0.65 % Nasal Solution (Pearson) Administer 1 [place] into nostril as needed for Congestion. 4 [...] mRNA, LNP-s, No Pre serve, 2-Dose Series ([employer]) 08/19/2021,12/26/2020,12/05/2020 COVID-19, MRNA-LNP, 23-24, P F, 30 MCG/0.3 mL, 12 YRS AND ABOVE, IM ([employer]) 03/05/2024 Covid-19, Mrna, Lnp-s, Pf, B ivalent, [...] original note were not included. TT from RNCM Jose David Cullen asking for HH referral dated 04/07 from pt's PCP Sandra Perez to be faxed to [facility] at [phone]. Requested a note be attached asking [facility] to notify [facility] if they can not accommodate HH request. Per Jose David Cullen if [facility] is unable to accept, pt will need to be referred to another HHagency Faxed HH referral, pt face sheet and PCP office note from 04/[address] [facility] at [phone] F/u call for tomorrow to check status documented in this encounter Plan of Treatment Upcoming Encounters Date Type Department Care Team (Late st Contact Info) Description 04/15/2024 6:00 AM EDT Anticoagulation Centralized Clinical Pharmacy Services, Milli Breen [address] [place] [address] [place] [address] Ccps, [address] [place] [address] 04/15/2024 1:45 PM EDT Scheduled Telephone [facility] [address] [place] [address] Coordinator, [facility] [address] [facility] [place] [address] 04/21/2024 7:00 AM EDT Laboratory [facility] [address] [place] [address] Mvmg, [facility] [address] [place] [address] 04/28/2024 7:00 AM EDT [facility] [address] [place] [address] Mvmg, [facility] [address] [place] [address] 05/05/2024 7:00 AM EDT Laboratory [facility] [address] [place], [place] [address] Mvmg, [facility] [address] [facility] [address] [place], [place] [address] 05/12/2024 7:00 AM EDT Laboratory [facility] [address] [place], [place] [address] Mvmg, [facility] Draw [address] [place] [address] 05/19/2024 7:00 AM EDT Laboratory [facility] [address] [place] [address] Mvmg, [facility] Draw [address] [facility] [address] [place], [place] [address] 05/26/2024 7:00 AM EDT Laboratory [facility] [address] [place], [place] [address] Mvmg, [facility] Draw [address] [place] [address] 05/29/2024 9:00 AM EDT [facility] [place] [address] Gustavo Begum PA-C [address] [place] [address] 06/02/2024 7:00 AM EDT Laboratory [facility] [address] [place] [address] Mvmg, [facility] [address] [facility] [address] [place], [place] [address] 06/09/2024 7:00 AM EDT Laboratory [facility] [address] [place], [place] [address] Mvmg, [facility] Draw [address] [place], [place] [address] 06/16/2024 7:00 AM EDT Laboratory [facility] [address] [place] [address] Mvmg, Gml [facility] Draw [address] [place] [address] 06/23/2024 7:00 AM EDT Laboratory [facility] [address] [place] [address] Mvmg, G[facility] Draw [address] [place] [address] 06/30/2024 7:00 AM EDT Laboratory [facility] [address] [place] [address] Mvmg, G[facility] Draw [address] [place] [address] 07/07/2024 7:00 AM EDT Laboratory [facility] [address] [place] [address] Mvmg, G[facility] Draw [address] [place] [address] 07/14/2024 7:00 AM EDT Laboratory [facility] [address] [place] [address] Mvmg, G[facility] Draw [address] [place] [address] 07/21/2024 7:00 AM EDT Laboratory [facility] [address] [place] [address] Mvmg, Gml [facility] Draw [address] [place] [address] 07/28/2024 7:00 AM EDT Laboratory [facility] [address] [place] [address] Mvmg, G[facility] Draw [address] [place] [address] 08/04/2024 7:00 AM EDT Laboratory [facility] [address] [place] [address] Mvmg, G[facility] Draw [address] [place] [address] 08/10/2024 10:40 AM EST Office Visit [facility] [address] [facility] [place] [address] Angie Perez MD [address] [facility] [place] [address] 08/11/2024 7:00 AM EST Laboratory [facility] [address] [place] [address] Mvmg, G[facility] Draw [address] [facility] [place], [place] [address] 08/18/2024 7:00 AM EST Laboratory [facility] [address] [place] [address] Mvmg, G[facility] Draw [address] [place] [address] 08/25/2024 7:00 AM EST Laboratory [facility] [address] [place] [address] Mvmg, G[facility] Draw [address] [place] [address] 09/01/2024 7:00 AM EST Laboratory [facility] [address] [place] [address] Mvmg, G[facility] Draw [address] [place] [address] 09/08/2024 7:00 AM EST Laboratory [facility] [address] [place] [address] Mvmg, G[facility] Draw [address] [place] [address] 2024 7:00 AM EST Laboratory [facility] [address] [place] [address] Mvmg, G[facility] Draw [address] [place] [address] 09/22/2024 7:00 AM EST Laboratory [facility] [address] [place] [address] Mvmg, G[facility] Draw [address] [place] [address] 09/29/2024 7:00 AM EST Laboratory [facility] [address] [place] [address] Mvmg, G[facility] Draw [address] [place] [address] 10/06/2024 7:00 AM EST Laboratory [facility] [address] [place] [address] Mvmg, [facility] Draw [address] [place] [address] Health Maintenance Due Date Last Done Comments [...] D LEVEL ONCE IN A LIFETIME-USE SMARTSET# [id number] Completed 05/31/2020, 11/25/2019, 08/06/2019, Additional history exists [...] filedocumented as of this encounter Care Teams Warp Doffer Relationship Specialty Start Date End Date Angie Perez MD [address] [place] [address] PCP - General Family Medicine 04/07/24 documented as of this encounter
--- OUTSIDE RECORDS SUMMARY | 2024-06-21 01:23 | External Medical Summary | Summary of Care ---
Author Name Unknown Organization [facility] Address [address] [place] [address] Phone [phone] Care Team Providers Care Lubrication Worker Name Role Phone Angie Perez MD Primary Care Provider [phone] Reason for Visit * Reason Onset Date Comments Information 04/14/2024 Encounter Details Date Type Department Care Team (Late st Contact Info) Description 04/14/2024 Telephone [facility] [address] [place] [address] Services, Scheduling [address] [place] [address] Information Allergies Active Allergy Reactions Criticality Noted [...] mouth in the morning. Active Saline Nasal [place] 0.65 % Nasal Solution ([employer]) Administer 1 [place] into nostril as needed for Congestion. 12/12/2023 [...] mRNA, LNP-s, No Pre serve, 2-Dose Series ([employer]) 08/19/2021,12/26/2020,12/05/2020 COVID-19, MRNA-LNP, 23-24, P F, 30 [...] encounter Miscellaneous Notes * Telephone Encounter - Angelica Gomez OSA - 04/14/2024 2:55 PM EDT Incoming call received from Lillian at . Stated they cannot accept pt for services due to lack of availability. She recommended reaching out to [facility], [facility], [facility], or [facility] as they all cover [place] [facility] [place]. Routed to care team to further advise. documented in this encounter Plan of Treatment Upcoming Encounters Date Type Department Care Team (Late st Contact Info) Description 04/15/2024 6:00 AM EDT Anticoagulation Centralized Clinical Pharmacy Services, Milli Breen [address] [place] [address] [place] [address] Ccps, [address] [place] [address] 04/15/2024 1:45 PM EDT Scheduled Telephone [facility], [facility] [address] [employer] [place] [address] Coordinator, [facility] [address] [place] [address] 04/21/2024 7:00 AM EDT Laboratory [facility] [address] [place] [address] Mvmg, [facility] [address] [place] [address] 04/28/2024 7:00 AM EDT [facility] [address] [place] [address] Mvmg, [facility] [address] [place] [address] 05/05/2024 7:00 AM EDT [facility] [address] [place] [address] Mvmg, [facility] [address] [place] [address] 05/12/2024 7:00 AM EDT [facility] [address] [place] [address] Mvmg, [facility] [address] [place] [address] 05/19/2024 7:00 AM EDT Laboratory [facility] [address] [place], [place] [address] Mvmg, [facility] [address] [facility] [place], [place] [address] 05/26/2024 7:00 AM EDT Laboratory [facility] [address] [place], [place] [address] Mvmg, [facility] Draw [address] [facility] [place], [place] [address] 05/29/2024 9:00 AM EDT [facility] Visit [facility], [facility] [address] [place] [address] Gustavo Begum PA-C [address] [place] [address] 06/02/2024 7:00 AM EDT [facility] [address] [place], [place] [address] Mvmg, [facility] [address] [facility] [place] [address] 06/09/2024 7:00 AM EDT Laboratory [facility] [address] [place], [place] [address] Mvmg, [facility] [address] [place] [address] 06/16/2024 7:00 AM EDT Laboratory [facility] [address] [facility] [place] [address] Mvmg, [facility] Draw [address] [facility] [place] [address] 06/23/2024 7:00 AM EDT Laboratory [facility] [address] [facility] [place] [address] Mvmg, [facility] Draw [address] [facility] [place] [address] 06/30/2024 7:00 AM EDT Laboratory [facility] [address] [facility] [place] [address] Mvmg, G[facility] Draw [address] [place] [address] 07/07/2024 7:00 AM EDT Laboratory [facility] [address] [place], [place] [address] Mvmg, [facility] [address] [place] [address] 07/14/2024 7:00 AM EDT Laboratory [facility] [address] [place] [address] Mvmg, [facility] [address] [place] [address] 07/21/2024 7:00 AM EDT Laboratory [facility] [address] [place] [address] Mvmg, [facility] [address] [place] [address] 07/28/2024 7:00 AM EDT [facility] [address] [place] [address] Mvmg, [facility] [address] [place] [address] 08/04/2024 7:00 AM EDT [facility] [address] [place] [address] Mvmg, [facility] [address] [place] [address] 08/10/2024 10:40 AM EST Office [facility] [place] [address] [place], [place] [address] Angie Perez MD [address] [place] [address] 08/11/2024 7:00 AM EST [facility] [address] [place], [place] [address] Mvmg, [facility] [address] [place] [address] 08/18/2024 7:00 AM EST [facility] [address] [place] [address] Mvmg, G[facility] Draw [address] [place] [address] 08/25/2024 7:00 AM EST [facility] [address] [facility] [place] [address] Mvmg, [facility] Draw [address] [place] [address] 09/01/2024 7:00 AM EST [facility] [address] [place] [address] Mvmg, [facility] [address] [place] [address] 09/08/2024 7:00 AM EST [facility] [address] [place] [address] Mvmg, [facility] [address] [place] [address] 2024 7:00 AM EST [facility] [address] [place] [address] Mvmg, [facility] [address] [place] [address] 09/22/2024 7:00 AM EST Laboratory [facility] [address] [place] [address] Mvmg, [facility] Draw [address] [place] [address] 09/29/2024 7:00 AM EST Laboratory [facility] [address] [place] [address] Mvmg, G[facility] Draw [address] [place] [address] 10/06/2024 7:00 AM EST Laboratory [facility] [address] [facility] [place] [address] Mvmg, [facility] Draw [address] [facility] [place] [address] Health Maintenance Due Date Last Done Comments [...] D LEVEL ONCE IN A LIFETIME-USE SMARTSET# [id number] Completed 05/31/2020, 11/25/2019, 08/06/2019, Additional history exists [...] Care Agent (per Health Care Power of Stem Roller document) Jo-Ann Rose Adult Child First Alternate Health Care Agent (per Health Care Power of Stem Roller document) [email or web address] Care Teams Lubrication Worker Relationship Specialty Start Date End Date Angie Perez MD [address] [place] [address] PCP - General Family Medicine 04/07/24 documented as of this encounter
--- OUTSIDE RECORDS SUMMARY | 2024-06-21 01:23 | External Medical Summary | Summary of Care ---
Author Name Unknown Organization [facility] Address [address] [place] [address] Phone [phone] Care Team Providers Care Hand Candy Dipper Name Role Phone Angie Perez MD Primary Care Provider [phone] Reason for Visit * Reason Onset Date Comments Protime Testing 04/14/2024 Encounter Details Date Type Department Care Team (Late st Contact Info) Description 04/14/2024 Telephone [facility], Milli Breen [address] [place] [address] [place] [address] Julissa Jean, [facility] [address] [place] [address] Protime Testing (/) Allergies Active Allergy Reactions Criticality Noted [...] mouth in the morning. Active Saline Nasal [place] 0.65 % Nasal Solution (Elk) Administer 1 [place] into nostril as needed for Congestion. 12/12/2023 [...] MCG/0.3 mL, 12 YRS AND ABOVE, IM ([employer]-ComirnatHeckyl) 03/05/2024 Covid-19, Mrna, Lnp-s, Pf, B ivalent, [...] Notes * Telephone Encounter - Julissa Jean [facility] - 04/14/2024 7:50 AM EDT PT/INR order signed Julissa Jean Rph, Pharm.D. Clinical Pharmacist [facility] Services ([facility]) [phone] 04/14/2024,7:50 AM documented in this encounter Plan of Treatment Upcoming Encounters Date Type Department Care Team (Late st Contact Info) Description 04/14/2024 2:00 PM EDT [facility] 132 [facility] [place] [address] Sandra Cullen RN 132 [facility] [place] [address] 04/15/2024 6:00 AM EDT Anticoagulation [facility] Clinical Pharmacy Services, Milli Breen [address] [place] [address] [place] [address] [facility], [address] [place] [address] 04/21/2024 7:00 AM EDT Laboratory Lab [facility] [address] [facility] [place] [address] Mvmg, Gml [facility] Draw [address] [facility] [place] [address] 04/28/2024 7:00 AM EDT Laboratory [facility] [address] [place] [address] Mvmg, Gml [facility] Draw [address] [place] [address] 05/05/2024 7:00 AM EDT Laboratory Lab [facility] [address] [facility] [place] [address] Mvmg, Gml [facility] Draw [address] [place] [address] 05/12/2024 7:00 AM EDT Laboratory Lab [facility] [address] [place] [address] Mvmg, Gml [facility] Draw [address] [facility] [place] [address] 05/19/2024 7:00 AM EDT Laboratory [facility] [address] [place] [address] Mvmg, Gml [facility] Home Draw [address] [facility] [place] [address] 05/26/2024 7:00 AM EDT Laboratory Lab [facility] Ph[facility]bot[facility] [address] [facility] [place] [address] Mvmg, Gml Mobile Home Draw [address] [facility] [place] [address] 05/29/2024 9:00 AM EDT [facility], [facility] [address] [place] [address] Gustavo Begum PA-C [address] [place] [address] 06/02/2024 7:00 AM EDT Laboratory Lab [facility]bot[facility] [address] [place], [place] [address] Mvmg, Gml Mobile Home Draw [address] [place] [address] 06/09/2024 7:00 AM EDT Laboratory [facility] [address] [place] [address] Mvmg, Gml Mobile Home Draw [address] [facility] [place] [address] 06/16/2024 7:00 AM EDT Laboratory [facility] [address] [place] [address] Mvmg, Gml [facility] Draw [address] [place] [address] 06/23/2024 7:00 AM EDT Laboratory [facility] [address] [place] [address] Mvmg, Gml [facility] Draw [address] [place] [address] 06/30/2024 7:00 AM EDT Laboratory Lab [facility] [address] [place], [place] [address] Mvmg, Gml Mobile Home Draw [address] [place] [address] 07/07/2024 7:00 AM EDT Laboratory Lab [facility] Phlebot[facility] [address] [place] [address] Mvmg, Gml Mobile Home Draw [address] [place] [address] 07/14/2024 7:00 AM EDT Laboratory [facility] [address] [place] [address] Mvmg, Gml Mobile Home Draw [address] [place] [address] 07/21/2024 7:00 AM EDT Laboratory Lab [facility]lebot[facility] [address] [place] [address] Mvmg, Gml Mobile Home Draw [address] [place] [address] 07/28/2024 7:00 AM EDT Laboratory Lab [facility] Phlebot[facility] [address] [place] [address] Mvmg, Gml Mobile [facility] Draw [address] [place] [address] 08/04/2024 7:00 AM EDT Laboratory Lab [facility] Phlebot[facility] [address] [place] [address] Mvmg, Gml Mobile Home Draw [address] [place] [address] 08/10/2024 10:40 AM EST Office Visit [facility] [place] [address] [place] [address] Angie Perez MD [address] [place] [address] 08/11/2024 7:00 AM EST Laboratory Lab Mobile Phlebotomy [facility] [address]20 [facility] [place] [address] Mvmg, Gml Mobile Home Draw [address] [facility] [place] [address] 08/18/2024 7:00 AM EST Laboratory Lab Mobile Phlebotomy [facility] [address] [place] [address] Mvmg, Gml Mobile Home Draw [address]20 [facility] [place] [address] 08/25/2024 7:00 AM EST Laboratory Lab Mobile Phlebotomy [facility] [address] [facility] [place] [address] Mvmg, Gml Mobile Home Draw 2520 [facility] [place] [address] 09/01/2024 7:00 AM EST Laboratory Lab [facility] Phlebotomy [facility] [address] [place] [address] Mvmg, Gml Mobile Home Draw 2520 [facility] [place] [address] 09/08/2024 7:00 AM EST Laboratory Lab Mobile Phlebotomy [facility] [address] [facility] [place] [address] Mvmg, Gml Mobile Home Draw [address] [place] [address] 2024 7:00 AM EST Laboratory Lab [facility] Phlebotomy [facility] [address] [place] [address] Mvmg, Gml Mobile Home Draw [address] [place] [address] 09/22/2024 7:00 AM EST Laboratory Lab Mobile Phlebotomy [facility] [address] [place] [address] Mvmg, Gml Mobile Home Draw [address] [place] [address] 09/29/2024 7:00 AM EST Laboratory Lab Mobile Phlebotomy [facility] [address] [facility] [place], [place] [address] Mvmg, Gml Mobile Home Draw [address] [facility] [place] [address] 10/06/2024 7:00 AM EST Laboratory Lab Mobile Phlebotomy [facility] [address] [facility] [place] [address] Mvmg, Gml Mobile Home Draw [address] [facility] [place], [place] [address] Scheduled Orders Name Type Priority Associated Diagnoses Orde r Schedule PT INR Lab Routine Acute deep vein thrombosis (DVT) of femoral vein of right lower extremity (HCC) Other, Please specify in Comments field for 26 Occurrences starting 04/14/2024 until 04/14/2025 Health Maintenance Due Date Last Done [...] D LEVEL ONCE IN A LIFETIME-USE SMARTSET# [id number] Completed 05/31/2020, 11/25/2019, 08/06/2019, Additional history exists [...] of this encounter Visit Diagnoses Diagnosis Acute deep vein thrombosis (DVT) of femoral vein of right lower extremity (HCC)- Primary documented in this encounter Care Teams Hand Candy Dipper Relationship Specialty Start Date End Date Angie Perez MD [address] [place] [address] PCP - General Family Medicine 04/07/24 documented as of this encounter
--- OUTSIDE RECORDS SUMMARY | 2024-06-21 01:23 | External Medical Summary | Summary of Care ---
Author Name Unknown Organization [facility] Address [address] [place] [address] Phone [phone] Care Team Providers Care President & Ceo [employer] Name Role Phone Angie Perez MD Primary Care Provider [phone] Reason for Visit * Reason Onset Date Comments [facility]: Maintenance 04/14/2024 Encounter Details Date Type Department Care Team (Late st Contact Info) Description 04/14/2024 Telephone [facility], [facility] [address] [place] [address] [facility], Nurse [facility] [address] [place] [address] [facility]: Maintenance Allergies Active Allergy [...] mouth in the morning. Active Saline Nasal [place] 0.65 % Nasal Solution ([place]) Administer 1 [place] into nostril as needed for Congestion. 4 [...] mRNA, LNP-s, No Pre serve, 2-Dose Series (Sand [employer]) 08/19/2021,12/26/2020,12/05/2020 COVID-19, MRNA-LNP, 23-24, P F, 30 MCG/0.3 mL, 12 YRS AND ABOVE, IM ([employer]-Comirnat[facility] Expert Clinics) 03/05/2024 Covid-19, Mrna, Lnp-s, Pf, B ivalent, [...] Peña LPN - 04/14/2024 2:05 PM EDT TT from RNCM Jose David Cullen asking for HH referral dated 04/07 from pt's PCP Sandra Perez to be faxed to [facility] at [phone]. Requested a note be attached asking [facility] to notify [facility] if they can not accommodate HH request. Per Jose David Cullen if [facility] is unable to accept, pt will need to be referred to another HHagency Faxed HH referral, pt face sheet and PCP office note from 04/07 to [facility] at [phone] F/u call for tomorrow to check status documented in this encounter Plan of Treatment Upcoming Encounters Date Type Department Care Team (Late st Contact Info) Description 04/15/2024 6:00 AM EDT Anticoagulation [facility], Milli Breen [address] [place] [address] [place] [address] [facility], [address] [place] [address] 04/15/2024 1:45 PM EDT Scheduled Telephone [facility] [place] [address] Coordinator, [facility] 132 [facility] [place] [address] 04/21/2024 7:00 AM EDT Laboratory Lab [facility] Phlebot[facility] [address] [place] [address] Mvmg, Gml Mobile Home Draw [address] [place] [address] 04/28/2024 7:00 AM EDT Laboratory Lab [facility]lebot[facility] [address] [place] [address] Mvmg, Gml Mobile Home Draw [address] [place] [address] 05/05/2024 7:00 AM EDT Laboratory Lab [facility] Phlebot[facility] [address] [place] [address] Mvmg, Gml Mobile Home Draw [address] [place] [address] 05/12/2024 7:00 AM EDT Laboratory Lab [facility] Phlebot[facility] [address] [place] [address] Mvmg, Gml Mobile Home Draw [address] [facility] [place] [address] 05/19/2024 7:00 AM EDT Laboratory Lab [facility] Phlebotomy [facility] [address] [place] [address] Mvmg, Gml Mobile Home Draw [address] [place] [address] 05/26/2024 7:00 AM EDT Laboratory Lab [facility] Phlebot[facility] [address] [place] [address] Mvmg, Gml Mobile Home Draw [address] [facility] [place] [address] 05/29/2024 9:00 AM EDT [facility] [place] [address] Gustavo Begum PA-C [address] [place] [address] 06/02/2024 7:00 AM EDT Laboratory Lab [facility] Phlebotomy [facility] [address] [place] [address] Mvmg, Gml Mobile Home Draw [address] [place] [address] 06/09/2024 7:00 AM EDT Laboratory Lab [facility] Phlebotomy [facility] [address] [place] [address] Mvmg, Gml Mobile Home Draw [address] [place] [address] 06/16/2024 7:00 AM EDT Laboratory Lab Mobile Phlebotomy [facility] [address] [place] [address] Mvmg, Gml Mobile Home Draw [address] [place] [address] 06/23/2024 7:00 AM EDT Laboratory Lab Mobile Phlebotomy [facility] [address] [place] [address] Mvmg, Gml Mobile Home Draw [address] [place] [address] 06/30/2024 7:00 AM EDT Laboratory Lab Mobile Phlebotomy [facility] [address] [place] [address] Mvmg, Gml Mobile Home Draw [address] [place] [address] 07/07/2024 7:00 AM EDT Laboratory Lab Mobile Phlebotomy [facility] [address] [place] [address] Mvmg, Gml Mobile Home Draw [address] [place] [address] 07/14/2024 7:00 AM EDT Laboratory Lab Mobile Phlebotomy [facility] [address] [place] [address] Mvmg, Gml Mobile Home Draw [address] [place] [address] 07/21/2024 7:00 AM EDT Laboratory Lab Mobile Phlebotomy [facility] [address] [place] [address] Mvmg, Gml Mobile Home Draw [address] [place] [address] 07/28/2024 7:00 AM EDT Laboratory Lab Mobile Phlebotomy [facility] [address] [place] [address] Mvmg, Gml Mobile Home Draw [address] [facility] [place] [address] 08/04/2024 7:00 AM EDT Laboratory Lab Mobile Phlebotomy [facility] [address] [facility] [place] [address] Mvmg, Gml Mobile Home Draw [address] [place] [address] 08/10/2024 10:40 AM EST Office Visit Family [facility] [address] [facility] [place] [address] Angie Perez MD [address] [facility] [place] [address] 08/11/2024 7:00 AM EST Laboratory Lab [facility] Phlebot[facility] [address] [place] [address] Mvmg, Gml Mobile Home Draw [address] [facility] [place] [address] 08/18/2024 7:00 AM EST Laboratory Lab Mobile Phlebotomy [facility] [address] [place] [address] Mvmg, Gml Mobile Home Draw [address] [place] [address] 08/25/2024 7:00 AM EST Laboratory Lab Mobile Phlebotomy [facility] [address] [place] [address] Mvmg, Gml Mobile Home Draw [address] [facility] [place] [address] 09/01/2024 7:00 AM EST Laboratory Lab [facility] Phlebotomy [facility] [address] [place] [address] Mvmg, Gml Mobile Home Draw [address] [employer] [place] [address] 09/08/2024 7:00 AM EST Laboratory Lab Mobile Phlebotomy [facility] [address] [place] [address] Mvmg, Gml Mobile Home Draw [address] [facility] [place] [address] 2024 7:00 AM EST Laboratory Lab Mobile Phlebotomy [facility] [address] [place] [address] Mvmg, Gml Mobile Home Draw [address] [place] [address] 09/22/2024 7:00 AM EST Laboratory Lab Mobile Phlebotomy [facility] [address] [facility] [place] [address] Mvmg, Gml Mobile Home Draw [address] [facility] [place], [place] [address] 09/29/2024 7:00 AM EST Laboratory Lab Mobile Phlebotomy [facility] [address] [facility] [place], [place] [address] Mvmg, Gml Mobile Home Draw [address] [facility] [place] [address] 10/06/2024 7:00 AM EST Laboratory Lab Mobile Phlebotomy [facility] [address] [facility] [place], [place] [address] Mvmg, Gml Mobile Home Draw [address] [facility] [place], [place] [address] Health Maintenance Due Date Last Done Comments [...] D LEVEL ONCE IN A LIFETIME-USE SMARTSET# [id number] Completed 05/31/2020, 11/25/2019, 08/06/2019, Additional history exists [...] filedocumented as of this encounter Care Teams President [employer] Ceo [employer] Relationship Specialty Start Date End Date Angie Perez MD [address] [place] [address] PCP - General Family Medicine 04/07/24 documented as of this encounter
--- OUTSIDE RECORDS SUMMARY | 2024-06-21 01:23 | External Medical Summary ---
Author Name Unknown Address Unknown Organization K[facility] [address] [place] [address] Laboratory Report Ordering Provider Test Date Status WES JOSEPH 04/14/2024 08:05:00 Final Warfarin Therapy
INR: 2 .0-3.0 conventional anticoagulation
INR: 2.5- 3.5 high intensity anticoagulation Observation Date Value Abnormality Reference (Units ) Status PT 04/14/2024 08:05:00 20.6 Above high normal 11 .6-15.2 (seconds) Final INR 04/14/2024 08:05:00 1.8 Above high normal 0. 8-1.2 Final Performing Location LABORATORY [facility] MICHAEL [address] [place] [address]
--- OUTSIDE RECORDS SUMMARY | 2024-06-21 01:24 | External Medical Summary | Summary of Care ---
Author Name Unknown Organization [facility] Address [address] [place] [address] Phone [phone] Care Team Providers Care Foot Press Operator Name Role Phone Angie Perez MD Primary Care Provider [phone] Reason for Visit * Reason Comments Outpatient Testing Encounter Details Date Type Department Care Team (Late st Contact Info) Description 04/07/2024 10:50 AM EDT Laboratory Laboratory [facility] [place] [address] [place] [id number] [facility] Lab [address] [place] [address] History of DVT (deep vein thrombosis); Anticoagulation management encounter Allergies Active Allergy Reactions Criticality Noted Date Comments Bacitracin Itching 02/20/2018 Ezetimibe 09/19/2008 Shellfish Allergy 03/25/2023 Sulfa Antibiotics 12/24/2017 Tramadol Itching 12/24/2017 documented as of this encounter (statuses as of 04/07/2024) Medications Medication Sig Dispensed Refills Start Date [...] mouth in the morning. Active Saline Nasal [place] 0.65 % Nasal Solution ([place]) Administer 1 [place] into nostril as needed for Congestion. 12/12/2023 [...] of recurrent major depressive disorder (HCC) Take 0.5 Tablets by mouth at bedtime. 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 [...] as of this encounter (statuses as of 04/07/2024) Resolved Problems Problem Noted Date Diagnosed Date [...] as of this encounter (statuses as of 04/07/2024) Immunizations Name Administration Dates Next Due COVID-19 mRNA, LNP-s, No Pre serve, 2-Dose Series (Cadent) 08/19/2021,12/26/2020,12/05/2020 COVID-19, MRNA-LNP, 23-24, P F, 30 MCG/0.3 mL, 12 YRS AND ABOVE, IM (PFIZER-Comirnat) 03/05/2024 Covid-19, Mrna, Lnp-s, Pf, B ivalent, [...] Care Team (Late st Contact Info) Description 04/07/2024 6:00 PM EDT Anticoagulation [facility] Clinical [facility] Services, Milli Breen [address] [place] [address] [place] [address] [facility] [place] [address] 04/14/2024 2:00 PM EDT [facility], [facility] [place] [address] Sandra Cullen, RN 132 [facility] [place] [address] 05/29/2024 9:00 AM EDT [facility] [place], [facility] [place] [address] Gustavo Begum PA-C [address] [place] [address] 08/10/2024 10:40 AM EST Office Visit Family [facility] 200 [place] [address] Angie Perez MD [address] [facility] [address] Pending Results Name Type Priority Associated Diagnoses Date /Time PT INR Lab Routine History of DVT (deep vein thrombosis) Anticoagulation management encounter 04/07/2024 10:43 AM EDT Health Maintenance Due Date Last Done Comments [...] D LEVEL ONCE IN A LIFETIME-USE SMARTSET# [id number] Completed 05/31/2020, 11/25/2019, 08/06/2019, Additional history exists Pneumococcal Vaccine: 65+ Years Completed 06/04/2023, 06/27/2015, 12/18/2011 GARDASIL-HPV IMMUNIZATION SERIES Aged Out No longer [...] this encounter Visit Diagnoses Diagnosis History of DVT (deep vein thrombosis) Personal history of venous thrombosis and embolism Anticoagulation management encounter Encounter for therapeutic drug monitoring documented in this encounter Care Teams Foot Press Operator Relationship Specialty Start Date End Date Angie Perez MD [address] [place] [address] PCP - General Family Medicine 04/07/24 documented as of this encounter
--- OUTSIDE RECORDS SUMMARY | 2024-06-21 01:24 | External Medical Summary | Summary of Care ---
Author Name Unknown Organization [facility] Address [address] [place] [address] Phone [phone] Care Team Providers Care Surgical Orderly Name Role Phone Angie Perez MD Primary Care Provider [phone] Reason for Referral * Evaluate & Treat - Unlimited Visits (Within 3 days (urgent)) - Authorized Specialty Diagnoses / Procedures Referred By Contmichael t Referred To Contact ANTI-COAG CLINIC / Pharmacy Diagnoses Anticoagulation management encounter Julissa Jean, [facility] [address] [place] [address] Referral ID Status Reason Start Date Expiration Date Visits Requested Visits Authorized [id number] Authorized Specialty Services Required 04/07/2024 10/04/2024 99 99 Question Answer Referral Priority Within 3 days (urgent) Where should this appointment be scheduled? Ariella Comments Anticoagulation referral for management of: Warfarin Indication and INR goal for Warfarin Management: VTE: Prevention of Venous Thromboembolism, INR Goal: 2.0 - 3.0 Relevant History: N/A Enoxaparin bridging required? N/a Minimum frequency patient should be seen in person for medication management: as appropriate per clinical condition and patient status By my signature, I understand that my patient Analy Haq will have her medication therapy managed by the [facility] Medication Therapy Disease Management [facility] ([facility]) per established policies, procedures, and protocols. I also certify that this referral may serve as an initiation of service for the management of drug therapy in the above noted patient. [facility] providers will be responsible for scheduling patient visits, obtaining appropriate laboratory studies, and adjusting medication management therapy per patient's need, in addition to those roles spelled out in the clinic policy, procedures, and drug management protocols. I understand that the service provided by the [facility] Clinic is voluntary and have informed patient that they can refuse the service at their discretion. I am aware that the [facility] will provide me with a copy of the patient encounter via my [facility]. I authorize the [facility] to carry out these activities on my behalf. I consider this program to be a necessary part of the patient's medical care. Julissa Jean RPh Encounter Details Date Type Department Care Team (Late st Contact Info) Description 04/07/2024 Telephone Centralized Clinical Pharmacy Services, Milli Breen [address] [place] [address] [place] [address] Julissa Jean [facility] [address] [place] [id number] Allergies Active Allergy Reactions Criticality Noted Date [...] mouth in the morning. Active Saline Nasal Gause 0.65 % Nasal Solution ([place]) Administer 1 Gause into nostril as needed for Congestion. 12/12/2023 [...] mRNA, LNP-s, No Pre serve, 2-Dose Series ([employer]) 08/19/2021,12/26/2020,12/05/2020 COVID-19, MRNA-LNP, 23-24, P F, 30 MCG/0.3 mL, 12 YRS AND ABOVE, IM ([facility]) 03/05/2024 Covid-19, Mrna, Lnp-s, Pf, B [...] encounter Miscellaneous Notes * Telephone Encounter - Angie Perez MD - 04/07/2024 1:06 PM EDT Order signed * Telephone Encounter - Julissa Jean RPh - 04/07/2024 12:11 PM EDT Please approve pended referral for ongoing ACC management. We were managing pt under [facility] provider previously. Thanks, Julissa Jean Rph, Pharm.D. Clinical Pharmacist Centralized Clinical Pharmacy Services ([facility]) [phone] 04/07/2024,12:12 PM documented in this encounter Plan of Treatment Upcoming Encounters Date Type Department Care Team (Late st Contact Info) Description 04/07/2024 6:00 PM EDT Anticoagulation Centralized Clinical Pharmacy Services, [address] [place] [address] [place] [address] 04/14/2024 2:00 PM EDT [facility] [address] [place] [address] Sandra Cullen, RN [address] [place] [address] 04/15/2024 6:00 AM EDT Anticoagulation Centralized Clinical Pharmacy Services, [address] [place] [address] [place] [address] 05/29/2024 9:00 AM EDT [facility] [address] [place] [address] Gustavo Begum PA-C [address] [place] [address] 08/10/2024 10:40 AM EST Office Visit Family Practice State [facility] Smith [address] [facility] [place] [address] Angie Perez MD [address] [facility] [place] [address] Scheduled Referrals Name Type Priority Associated Diagnoses Orde r Schedule ANTI-COAGULATION REFERRAL OP Referral Within 3 days (urgent) Anticoagulation management encounter Ordered: 04/07/2024 Health Maintenance Due Date Last Done Comments Albumin/Creatinine Ratio 1958 DTaP,Tdap,and Td Vaccines (2 - Td or Tdap) 10/15/2021 10/15/2011 Depression Monitoring 05/18/2022 05/18/2021 COVID-19 Vaccine (6 - season) 2024 03/05/2024, 03/05/2024, 07/30/2023, Additional history exists DXA Scan 05/02/2024 05/02/2022, 04/07, 12/03/2018, Additional history exists Influenza Vaccine (FLU shot) (#1) 2024 07/26/2023, 07/23/2022, 09/05/2021, Additional history exists Zoster Vaccines Completed 11/04/2019, 10/08, 05/27/2019, Additional history exists VITAMIN D LEVEL ONCE IN A LIFETIME-USE SMARTSET# [id number] Completed 05/31/2020, 11/25/2019, 08/06/2019, Additional history exists [...] monitoring documented in this encounter Care Teams Surgical Orderly Relationship Specialty Start Date End Date Angie Perez MD [address] [place] [address] PCP - General Family Medicine 04/07/24 documented as of this encounter
--- OUTSIDE RECORDS SUMMARY | 2024-06-21 01:24 | External Medical Summary | Summary of Care ---
Author Name Unknown Organization [facility] Address [address] [place] [address] Phone [phone] Care Team Providers Care Sapphire Stylus Grinder Name Role Phone Opal Perez MD Primary Care Provider [phone] Reason for Referral * Ancillary Services (Within 10 days (routine)) - Authorized Specialty Diagnoses / Procedures Referred By Contac t Referred To Contact Home School Coordinator Diagnoses HTN, goal below 150/90 Anticoagulation management encounter Opal Perez MD [address] [place] [address] Referral ID Status Reason Start Date Expiration Date Visits Requested Visits Authorized [id number] Authorized Ancillary Services Required 04/07/2024 999 999 Question Answer Referral Priority Within 10 days (routine) Where should this appointment be scheduled? Ariella Comments Is Patient homebound? Yes All sections of this form must be filled out completely. Forms with missing or illegible information will be returned for completion. This form should not be modified in any way. Forms that have been modified will be returned. This form may not be submitted by a home health agency. It must be complete and submitted by the ordering provider. One full business day lead time is required and service will be scheduled based on the next service day for the [facility] Home Phlebotomy does not service every geographical location on a daily basis. Contact [facility] Client Services at to find out service days for a specific location. Medical Laboratory [facility] Patient Name: Analy Haq : 1940 Sex: female Address [address] [facility] [address] Provider: Self? Opal Perez MD? 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 I10 HTN, goal below 150/90 E78.2 Mixed dyslipidemia Z86.718 History of DVT (deep vein thrombosis) J30.1 Seasonal allergic rhinitis due to pollen K21.9 Gastroesophageal reflux disease without esophagitis F39 Mood disorder (HCC) Z86.73 History of cerebrovascular accident F33.1 Moderate episode of recurrent major depressive disorder (HCC) Z51.81,Z79.01 Anticoagulation management encounter Tests Requested PT/INR - weekly starting April 14, 2024 BMP - every 6 months starting July 2024 * Evaluate & Treat - Unlimited Visits (Within 10 days (routine)) - Authorized Specialty Diagnoses / Procedures Referred By Contac t Referred To Contact HOME CARE / Home Care Diagnoses Senile dementia, 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 [facility] Comments Documentation of Iwrj-sm-Stje Encounter Addendum Patient Name: Analy Haq I certify that this patient is under my care and that I, or a nurse practitioner or physician's medical staff assistant working with me, had a xewe-to-ozds encounter that meets the physician [id number]-[id number] encounter requirements with this patient on: 04/07/24 The encounter with the patient was in whole, or in part, for the following medical condition, which is the primary reason for home health care (List medical condition): Medication management, vitals as needed I certify that, based on my findings, the following services are medically necessary home health services: Nursing To provide the following care/treatments: (All hospitalists not following the patient after discharge should complete this section): Medication management, vitals as needed Primary Care Physician to follow home care plan of care after discharge: Dr. Opal Perez My clinical findings support the need for the above services because: Patient recently discharged from [facility], now living with daughter. Homebound. Further, I certify that my clinical findings support that this patient is homebound (i.e. Absences from home require considerable and taxing effort and are for medical reasons or pentecostal services or infrequently or of short duration when for other reason) because: Uses wheelchair at all times, cannot ambulate, deficits after stroke Physician Signature: Date of Signature: Physician Printed Name: Opal Perez MD Reason for Visit * Reason Comments Hospital Follow-Up D[facility]C from [facility] Encounter Details Date Type Department Care Team (Latest Contact Info) Description 04/07/2024 10:00 AM EDT Office Visit Family Practice State [facility]ilda Smith [facility] [place] [address] Opal Perez MD [address] [place] [address] Hemiplegia and hemiparesis following cerebral infarction affecting left non-dominant side (HCC)*; History of cerebrovascular accident; Senile dementia, uncomplicated (HCC); HTN, goal below 150/90; Mixed dyslipidemia; History of DVT (deep vein thrombosis); Gastroesophageal reflux disease without esophagitis; Seasonal allergic rhinitis due to pollen; Moderate episode of recurrent major depressive disorder (HCC); Anticoagulation management encounter Allergies Active Allergy Reactions [...] mouth in the morning. Active Saline Nasal Crane 0.65 % Nasal Solution (Door) Administer 1 Crane into nostril as needed for Congestion. 4 Active Saccharomyces boulardii 250 MG Oral Packet Take 250 mg by mouth in the morning. 4 Active Polyethylene Glycol 3350 17 GM/SCOOP Oral Powder (MiraLax) Take 17 g by mouth in the morning and 17 g before bedtime. Dissolve one heaping tablespoon in 8 ounces of water or juice.. 4 Active Triamcinolone Acetonide 0.1 % External Cream (Aristocort)Indicat ions:Non-pressure chronic ulcer of buttock, unspecified ulcer stage (HCC),Dermatitis,Sk in breakdown Apply topically to affected area 2 times a day. To affected area. 45 g 4 Active Atorvastatin Calcium 40 MG Oral Tablet (Lipitor)Indication s:History of cerebrovascular accident Take 1 tablet by mouth once a day at lunchtime 90 Tablet 3 4 Active Lisinopril 5 MG Oral Tablet (Prinivil)Indicatio ns:HTN, goal below 150/90 Take 1 Tablet by mouth in the morning. 90 Tablet 3 4 Active Loratadine 10 MG Oral Tablet (Claritin) Take 1 Tablet by mouth in the morning. 90 Tablet 3 4 Active Mirtazapine 15 MG Oral Tablet (Remeron)Indication s:Moderate episode of recurrent major depressive disorder (HCC) Take one-half tablet by mouth at bedtime. 45 Tablet 3 4 Active Omeprazole 20 MG Oral Capsule Delayed Release (PriLOSEC)Indicatio ns:Gastroesophageal reflux disease without esophagitis Take 1 Capsule by mouth in the morning. 90 Capsule 3 4 Active Sertraline HCl 25 MG Oral Tablet (Zoloft)Indications :Moderate episode of recurrent major depressive disorder (HCC) Take 1 Tablet by mouth in the morning. 90 Tablet 3 4 Active Potassium Chloride Mimi ER 10 MEQ Oral Tablet Extended Release Take 2 tablets by mouth at lunchtime 180 Tablet 3 4 Active Warfarin Sodium 3 MG Oral Tablet (Coumadin)Indicatio ns:History of DVT (deep vein thrombosis),Anticoa gulation management encounter Take 1 Tablet by mouth every evening. OR DIRECTED BY COUMADIN CLINIC 90 Tablet 3 4 Active Loratadine 10 MG Oral Tablet (Claritin) Take by mouth 1 Tablet in the morning. 90 Tablet 3 2 024 Discontinued(Re fill) Atorvastatin Calcium 40 MG Oral Tablet (Lipitor)Indication s:History of cerebrovascular accident Take 1 Tablet by mouth in the morning. 30 Tablet 4 024 Discontinued(Re fill) Famotidine 20 MG Oral Tablet (Pepcid)Indications :Gastroesophageal reflux disease without esophagitis Take 1 Tablet by mouth in the morning and 1 Tablet before bedtime. 60 Tablet 4 024 Discontinued Lisinopril 5 MG Oral Tablet (Prinivil)Indicatio ns:HTN, goal below 150/90 Take 1 Tablet by mouth in the morning. 30 Tablet 4 024 Discontinued(Re fill) Mirtazapine 15 MG Oral Tablet (Remeron)Indication s:Moderate episode of recurrent major depressive disorder (HCC) Take 0.5 Tablets by mouth at bedtime. 15 Tablet 4 024 Discontinued(Re fill) Omeprazole 20 MG Oral Capsule Delayed Release (PriLOSEC)Indicatio ns:Gastroesophageal reflux disease without esophagitis Take 1 Capsule by mouth in the morning. 30 Capsule 4 024 Discontinued(Re fill) Potassium Chloride Mimi ER 10 MEQ Oral Tablet Extended Release Take 2 Tablets by mouth in the morning. 60 Tablet 4 024 Discontinued(Re fill) Sertraline HCl 25 MG Oral Tablet (Zoloft)Indications :Moderate episode of recurrent major depressive disorder (HCC) Take 1 Tablet by mouth in the morning. 30 Tablet 4 024 Discontinued(Re fill) Warfarin Sodium 3 MG Oral Tablet (Coumadin)Indicatio ns:History of DVT (deep vein thrombosis),Anticoa gulation management encounter Take 1 Tablet by mouth every evening. OR DIRECTED BY COUMADIN CLINIC 30 Tablet 4 024 Discontinued(Re fill) documented as of this encounter (statuses as [...] mRNA, LNP-s, No Pre serve, 2-Dose Series ([employer]) 08/19/2021,12/26/2020,12/05/2020 COVID-19, MRNA-LNP, 23-24, P F, 30 MCG/0.3 mL, 12 YRS AND ABOVE, IM ([employer]) 03/05/2024 Covid-19, Mrna, Lnp-s, Pf, B ivalent, [...] Sign Reading Time Taken Comments Blood Pressure 108/70 04/07/2024 10:03 AM EDT Pulse 92 04/07/2024 10:03 AM EDT Temperature 36.5 C (97.7 F) 04/07/2024 10:03 AM E DT Respiratory Rate 18 04/07/2024 10:03 AM EDT Oxygen Saturation 92% 04/07/2024 10:03 AM EDT Inhaled Oxygen Concentration - - [...] as of this encounter Progress Notes * Opal Perez MD - 04/07/2024 10:12 AM EDT Subjective Chief Complaint Patient presents with Hospital Follow-Up D/C from [facility] HPI: Analy Haq is a 83 year old female. Patient is accompanied by her son Kp and her daughter Jo-Ann. The following issues were addressed today: Patient presents today after recent discharge from [facility]. She was there for the past year. Prior to that was at [facility], but transferred to [facility] after her and she needed increased level of care. She is now living with her daughter Jo-Ann. Has been home since Saturday. Settling in well. We reviewed her medications in detail today. Patient has a history of CVA and has residual left-sided hemiplegia. She is on ASA 81mg and atorvastatin 40mg. She is unable to ambulate and uses a wheelchair. She is homebound. Family is requesting home nursing and home phlebotomy services. Has history of DVT and is on Coumadin. Follows with Coumadin clinic. INR checked weekly. Has labs due today. Has history of GERD and is currently on omeprazole and famotidine BID. Symptoms are well-controlled. She would like to try discontinuing famotidine. Has some issues with memory. Overall mood is stable. She takes sertraline 25mg in the morning and Remeron 7.5mg at bedtime. She is on lisinopril 5mg. Her blood pressure today is on the lower side but has been elevated in the recent past. She denies dizziness or lightheadedness. Review of Systems: See HPI Objective BP 108/70 | Pulse 92 | Temp 36.5 C (97.7 F) (Tympanic) | Resp 18 | SpO2 92% Wt Readings from Last 3 Encounters: 01/08/24 52.2 kg (115 lb 1.6 oz) 12/24/23 51.6 kg (113 lb 12.8 oz) 11/27/23 50.8 kg (112 lb) BP Readings from Last 3 Encounters: 04/07/24 108/70 01/08/24 173/83 12/24/23 130/70 General: Well-appearing, no acute distress Cardiovascular: Regular rate and rhythm, no murmur Respiratory: Good respiratory effort, breath sounds equal and clear to auscultation bilaterally Extremities: No edema Psychiatric: Appropriate mood and affect Assessment & Plan 1. Hemiplegia and hemiparesis following cerebral infarction affecting left non- dominant side (HCC) 2. History of cerebrovascular accident Stable. Patient is homebound, family requesting home nursing services. Referral ordered. Continue current medications including aspirin and statin. - HOME HEALTH REFERRAL OP - Atorvastatin Calcium 40 MG Oral Tablet (Lipitor); Take 1 tablet by mouth once a day at lunchtime Dispense: 90 Tablet; Refill: 3 3. Senile dementia, uncomplicated (HCC) Stable. No mood disturbances. - HOME HEALTH REFERRAL OP 4. HTN, goal below 150/90 Well-controlled. Continue current medication. - Lisinopril 5 MG Oral Tablet (Prinivil); Take 1 Tablet by mouth in the morning. Dispense: 90 Tablet; Refill: 3 - ALBUMIN / CREATININE RATIO, URINE; Future - HOME PHLEBOTOMY REFERRAL OP 5. Mixed dyslipidemia Well-controlled. Continue current medication. 6. History of DVT (deep vein thrombosis) Stable. Continue Coumadin and follow-up with Coumadin Clinic. INR checks weekly. - Warfarin Sodium 3 MG Oral Tablet (Coumadin); Take 1 Tablet by mouth every evening. OR DIRECTEDBY COUMADIN CLINIC Dispense: 90 Tablet; Refill: 3 7. Gastroesophageal reflux disease without esophagitis Well-controlled. Continue omeprazole, discontinue famotidine. - Omeprazole 20 MG Oral Capsule Delayed Release (PriLOSEC); Take 1 Capsule by mouth in the morning.Dispense: 90 Capsule; Refill: 3 8. Seasonal allergic rhinitis due to pollen Stable. Continue loratadine 10mg. 9. Moderate episode of recurrent major depressive disorder (HCC) Well-controlled. Continue current medication(s). - Mirtazapine 15 MG Oral Tablet (Remeron); Take one-half tablet by mouth at bedtime. Dispense: 45 Tablet; Refill: 3 - Sertraline HCl 25 MG Oral Tablet (Zoloft); Take 1 Tablet by mouth in the morning. Dispense: 90 Tablet; Refill: 3 10. Anticoagulation management encounter - Warfarin Sodium 3 MG Oral Tablet (Coumadin); Take 1 Tablet by mouth every evening. OR DIRECTEDBY COUMADIN CLINIC Dispense: 90 Tablet; Refill: 3 - HOME PHLEBOTOMY REFERRAL OP Return in about 4 months (around 08/08/2024) for routine follow-up. This note was electronically signed by Opal Perez MD I spent a total of 40-54 minutes (exact time 45 mins) on the date of service in preparation, delivery, and documentation of the care provided to Analy Haq excluding any time spent in the performance of separately billed services. documented in this encounter Nursing Notes * Lula Ledbetter LPN - 04/07/2024 9:58 AM EDT Analy Haq presents for D/C from [facility] up. Medications & HM reviewed. Would like to discuss medications and switching to mail order pharmacy Coumadin clinic would like labs done here today then set up to be done at home documented in this encounter Miscellaneous Notes * Addendum Note - Opal Perez MD - 04/07/2024 11:55 AM EDTAddended by: OPAL PEREZ on: 04/07/2024 11:55 AM Modules accepted: Level of Service documented in this encounter Plan of Treatment Upcoming Encounters Date Type Department Care Team (Late st Contact Info) Description 04/07/2024 6:00 PM EDT Anticoagulation Centralized Clinical Pharmacy Services, Milli Breen [address] [place] [address] [place] [address] [facility], [address] [place] [address] 04/14/2024 2:00 PM EDT [facility] [address] [facility] [place] [address] Sandra Cullen, RN [address] [place] [address] 05/29/2024 9:00 AM EDT [facility] [address] [place] [address] Gustavo Begum PA-C [address] [place] [address] 08/10/2024 10:40 AM EST Office Visit Family Practice [facility] [address] [facility] [place] [address] Opal Perez MD [address] [facility] [place] [address] Scheduled Orders Name Type Priority Associated Diagnoses Orde r Schedule ALBUMIN / CREATININE RATIO, URINE Lab Routine HTN, goal below 150/90 Expected: 04/07/2024, Expires: 04/07/2025 Scheduled Referrals Name Type Priority Associated Diagnoses Orde r Schedule HOME HEALTH REFERRAL OP Referral Within 10 days (routine) Senile dementia, 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 (HCC) History of cerebrovascular accident Ordered: 04/07/2024 HOME PHLEBOTOMY REFERRAL OP Referral Within 10 days (routine) HTN, goal below 150/90 Anticoagulation management encounter Ordered: 04/07/2024 Health Maintenance [...] D LEVEL ONCE IN A LIFETIME-USE SMARTSET# [id number] Completed 05/31/2020, 11/25/2019, 08/06/2019, Additional history exists [...] as of this encounter Visit Diagnoses Diagnosis Hemiplegia and hemiparesis following cerebral infarction affecting left non- dominant side (HCC)- Primary History of cerebrovascular accident Transient ischemic attack (TIA), and cerebral infarction without residual deficits Senile dementia, uncomplicated (HCC) Senile dementia, uncomplicated HTN, goal below 150/90 Mixed dyslipidemia Mixed hyperlipidemia History of DVT (deep vein thrombosis) Personal history of venous thrombosis and embolism Gastroesophageal reflux disease without esophagitis Esophageal reflux Seasonal allergic rhinitis due to pollen Moderate episode of recurrent major depressive disorder (HCC) Anticoagulation management encounter Encounter for therapeutic drug monitoring documented in this encounter Care Teams Sapphire Stylus Grinder Relationship Specialty Start Date End Date Opal Perez MD [address] [place] [address] PCP - General Family Medicine 04/07/24 documented as of this encounter"
--- OUTSIDE RECORDS SUMMARY | 2024-06-21 01:24 | External Medical Summary | Summary of Care ---
Author Name Unknown Organization [facility] Address [address] Care Team Providers Care Superintendent Sanitation Name Role Phone Angei Perez MD Primary Care Provider [phone] Reason for Visit * Reason Onset Date Comments Medication Update 01/08/2024 Encounter Details Date Type Department Care Team (Late st Contact Info) Description 01/08/2024 [facility] [place] [address] [facility] [place] [address] [place] [address] Medication Update (/) Allergies Active Allergy Reactions Criticality Noted Date Comments Bacitracin Itching 02/20/2018 Ezetimibe 09/19/2008 Shellfish Allergy 03/25/2023 Sulfa Antibiotics 12/24/2017 Tramadol Itching 12/24/2017 documented as of this encounter (statuses as of 04/08/2024) Medications Medication Sig Dispensed Refills Start Date [...] mouth in the morning. Active Saline Nasal [place] 0.65 % Nasal Solution (Ballantine) Administer 1 [place] into nostril as needed for Congestion. 12/12/2023 Active Saccharomyces boulardii 250 MG Oral Packet Take 250 mg by mouth in the morning. 12/12/2023 Active documented as of this encounter (statuses as of 04/08/2024) Active Problems Problem Noted Date Diagnosed Date [...] as of this encounter (statuses as of 04/08/2024) Resolved Problems Problem Noted Date Diagnosed Date [...] as of this encounter (statuses as of 04/08/2024) Immunizations Name Administration Dates Next Due COVID-19 mRNA, LNP-s, No Pre serve, 2-Dose Series (Pfizer) 08/19/2021,12/26/2020,12/05/2020 Covid-19, Mrna, Lnp-s, Pf, B ivalent, [...] encounter Miscellaneous Notes * Telephone Encounter - Erica Lucas [facility] - 01/08/2024 4:16 PM EDT Medication Therapy Disease Management - Anticoagulation Patient: Analy Haq | : 1940 Correction/SNF Patient Anticoagulation Encounter Patient is a resident at: [facility] -- CC to Yvette Boyd PA-C and Fax sent to number listed above detailing plan of care below. Please notify clinic with any unusual brusing or bleeding, N/V/D, medication or diet changes or anymissed or extra doses of Coumadin. Subjective Patient-Reported Symptoms: Patient Findings Positives: Change in medications (Cefdinir 300 mg BID x 6 days - please contact the [facility] if pt develops severe NVD lasting for > 24 hours while on cefdinir), Hospital admission (Admitted to [facility] 01/03 - 01/07 for UTI) Objective Current Warfarin Dose As of 01/08/2024 Warfarin maintenance plan: 2 mg (1 mg x 2) every day INR Result As of 01/08/2024 INR goal: 2.0-3.0 INR used for dosin.7 (01/08/2024) Assessment & Plan Warfarin Plan As of 01/08/2024 Full warfarin instructions: 01/07: 4 mg Next INR check: 01/09/2024 Repeat PT/INR in 1 day(s) Weekly dose: not changed Additional Dosing Information: Erica Lucas RP Clinical Pharmacist 01/08/2024, 4:16 PM * Telephone Encounter - Dominique Morejon CPhT - 01/08/2024 3:21 PM EDT Received fax from [facility] (all records scanned into chart), patient hospitalized for UTI, discharged back to SNF today, patient will be on cefdinir bid for six more days and probiotics daily for one month, warfarin dose for today is listed as 4mg, with a repeat INR tomorrow. Dominique Morejon CPhT, MD Gear Tester II [facility] ([facility]) (formerly Telepharmacy) documented in this encounter Plan of Treatment Upcoming Encounters Date Type Department Care Team (Late st Contact Info) Description 04/14/2024 7:05 AM EDT Laboratory [facility] [address] [place] [address] Mv[facility], [facility] [address] [place], [place] [address] 04/14/2024 2:00 PM EDT [facility] [address] [place] [address] Sandra Cullen, RN [address] [place] [address] 04/15/2024 6:00 AM EDT Anticoagulation Central[facility], Milli Breen [address] [place] [address] [place] [address] Ccps, [address] [place] [address] 04/21/2024 7:00 AM EDT Laboratory [facility] [address] [place], [place] [address] M[facility], [facility] [address] [place] [address] 04/28/2024 7:00 AM EDT Laboratory [facility] [address] [place], [place] [address] [facility], [facility] Draw [address] [place], [place] [address] 05/05/2024 7:00 AM EDT Laboratory [facility] [address] [place] [address] M[facility], [facility] [address] [place] [address] 05/12/2024 7:00 AM EDT Laboratory Lab [facility] [address] [place], [place] [address] Mv[facility], [facility] Draw [address] [place] [address] 05/19/2024 7:00 AM EDT Laboratory Lab [facility] [address] [place] [address] Mv[facility], [facility] Draw [address] [place] [address] 05/26/2024 7:00 AM EDT Laboratory Lab [facility] [address] [facility] [place], [place] [address] Mvmg, [facility] Draw [address] [facility] [place], [place] [address] 05/29/2024 9:00 AM EDT [facility] [address] [place] [address] Gustavo Begum PA-C [address] [place] [address] 06/02/2024 7:00 AM EDT Laboratory Lab [facility] [address] [facility] [place], [place] [address] Mv[facility], [facility] Draw [address] [place] [address] 06/09/2024 7:00 AM EDT Laboratory Lab [facility] [address] [facility] [place], [place] [address] Mvmg, G[facility] Draw [address] [place] [address] 06/16/2024 7:00 AM EDT Laboratory Lab [facility] [address] [place] [address] Mvmg, [facility]ml [facility] Draw [address] [place] [address] 06/23/2024 7:00 AM EDT Laboratory Lab [facility] [address] [place] [address] Mvmg, Gml [facility] Draw [address] [facility] [place] [address] 06/30/2024 7:00 AM EDT Laboratory Lab [facility] [address] [place] [address] Mvmg, [facility]ml [facility] Draw [address] [place] [address] 07/07/2024 7:00 AM EDT Laboratory Lab [facility] [address] [place] [address] Mvmg, [facility] Draw [address] [place] [address] 07/14/2024 7:00 AM EDT Laboratory Lab [facility] [address] [place] [address] Mvmg, [facility] Draw [address] [place] [address] 07/21/2024 7:00 AM EDT Laboratory [facility] [address] [place] [address] Mvmg, [facility] Draw [address] [place] [address] 07/28/2024 7:00 AM EDT Laboratory [facility] [address] [place] [address] Mv[facility], [facility] Draw [address] [place] [address] 08/04/2024 7:00 AM EDT Laboratory [facility] [address] [place] [address] Mv[facility], [facility] [address] [place] [address] 08/10/2024 10:40 AM EST Office Visit Family [facility] [place] [address] [place] [address] Angie Perez MD [address] [place] [address] 08/11/2024 7:00 AM EST Laboratory Lab [facility] [address] [place] [address] Mvmg, [facility] Draw [address] [place] [address] 08/18/2024 7:00 AM EST Laboratory [facility] [address] [place] [address] Mvmg, [facility]ml [facility] Draw [address] [place] [address] 08/25/2024 7:00 AM EST Laboratory Lab [facility] [address] [place] [address] Mvmg, Gml [facility] Draw [address] [place] [address] 09/01/2024 7:00 AM EST Laboratory Lab [facility] [address] [place] [address] Mvmg, [facility]ml [facility] Draw [address] [place] [address] 09/08/2024 7:00 AM EST Laboratory [facility] [address] [place] [address] Mvmg, [facility]ml [facility] Draw [address] [place] [address] 2024 7:00 AM EST Laboratory [facility] [address] [place] [address] Mvmg, [facility]ml [facility] Draw [address] [place] [address] 09/22/2024 7:00 AM EST Laboratory [facility] [address] [place] [address] Mvmg, Gml [facility] Draw [address] [place] [address] 09/29/2024 7:00 AM EST Laboratory [facility] [address] [place] [address] Mvmg, [facility] Draw [address] [place] [address] 10/06/2024 7:00 AM EST Laboratory Lab [facility] [address] [place], [place] [address] Mvmg, [facility] Draw [address] [facility] [place], [place] [address] Health Maintenance Due Date Last Done Comments [...] D LEVEL ONCE IN A LIFETIME-USE SMARTSET# [id number] Completed 05/31/2020, 11/25/2019, 08/06/2019, Additional history exists [...] Not on filedocumented as of this encounter Procedures Procedure Name Priority Date/Time Associated Diagnosis Comments OUTSIDE LAB-PT/INR Routine 01/08/2024 OUTSIDE LAB-PT/INR Routine 01/07/2024 OUTSIDE LAB-PT/INR Routine 01/06/2024 OUTSIDE LAB-PT/INR Routine 01/04/2024 documented in this encounter Results * OUTSIDE LAB-PT/INR (01/08/2024) [facility] INR-OUTSIDE LAB 1.7 01/08/2024 History Per Patient LABORATORY * OUTSIDE LAB-PT/INR (01/07/2024) [facility] INR-OUTSIDE LAB 1.7 01/07/2024 History Per Patient LABORATORY * OUTSIDE LAB-PT/INR (01/06/2024) [facility] INR-OUTSIDE LAB 1.7 01/06/2024 History Per Patient LABORATORY * OUTSIDE LAB-PT/INR (01/04/2024) [facility] INR-OUTSIDE LAB 1.3 01/04/2024 History Per Patient LABORATORY documented in this encounter Care Teams Superintendent Sanitation Relationship Specialty Start Date End Date Angie Perez MD [address] [facility] [place] [address] PCP - General Family Medicine 04/07/24 documented as of this encounter"
--- OUTSIDE RECORDS SUMMARY | 2024-06-21 01:24 | External Medical Summary ---
Author Name Unknown Address Unknown Organization K09:[facility] [address] Laboratory Report Ordering Provider Test Date Status SOLE HENDRIX 04/07/2024 10:43:28 Final Warfarin Therapy
INR: 2 .0-3.0 conventional anticoagulation
INR: 2.5- 3.5 high intensity anticoagulation Observation Date Value Abnormality Reference (Units ) Status PT 04/07/2024 10:43:28 17.9 Above high normal 11 .6-15.2 (seconds) Final INR 04/07/2024 10:43:28 1.5 Above high normal 0. 8-1.2 Final Performing Location [facility] [place] [address]
--- OUTSIDE RECORDS SUMMARY | 2024-06-21 01:24 | External Medical Summary | Summary of Care ---
Author Name Unknown Organization [facility] Address [address] [place] [address] Phone [phone] Care Team Providers Care Tile Power Shear Operator Name Role Phone Angie Perez MD Primary Care Provider [phone] Reason for Visit * Reason Comments Dosage Adjustment Via Phone (anticoag Cl inic) Encounter Details Date Type Department Care Team (Late st Contact Info) Description 04/07/2024 6:00 PM EDT Anticoagulation Centralized Clinical Pharmacy Services, Milli Breen [address] [place] [address] [place] [address] [place] [address] Anticoagulation management encounter* Allergies Active Allergy Reactions [...] mouth in the morning. Active Saline Nasal [place] 0.65 % Nasal Solution (Revloc) Administer 1 [place] into nostril as needed for Congestion. 12/12/2023 [...] mRNA, LNP-s, No Pre serve, 2-Dose Series ([employer]) 08/19/2021,12/26/2020,12/05/2020 COVID-19, MRNA-LNP, 23-24, P F, 30 [...] Progress Notes * Mariajose Orozco CPhT - 04/07/2024 3:03 PM EDT Contacts Type Contact Phone/Fax 04/07/2024 03:00 PM EDT Phone (Outgoing) Jo-Ann Rose (Emergency Contact) [phone] (H) Subjective Patient Findings Positives: Change in medications (Pt no longer taking Famodidine as of 04/07/2024) Negatives: Signs/symptoms of bleeding, Change in health, Change in activity, Upcoming invasive procedure, Missed doses, Extra doses, Change in diet/appetite, Bruising Advised patient to contact Anticoagulation Clinic if any unusual bruising or bleeding, recent illness, changes in medication, or questions/concerns. PT/INR results, Coumadin dose instructions, and next PT/INR date communicated as noted by Pharmacist: Yes Mariajose Orozco CPhT 04/07/2024, 3:03 PM * Julissa Jean RPh - 04/07/2024 11:38 AM EDT Images from the original note were not included. Coumadin Clinic (region specific) Objective Current Warfarin Dose As of 04/07/2024 Warfarin maintenance plan: 3 mg (1 mg x 3) every day INR Result As of 04/07/2024 INR goal: 2.0-3.0 INR used for dosin.5 (04/07/2024) Assessment & Plan Warfarin Plan As of 04/07/2024 Full warfarin instructions: 04/07: 6 mg; Otherwise 5 mg every Fri; 3 mg all other days Next INR check: 04/14/2024 Repeat PT/INR in 1 week(s) [facility] referral placed Weekly dose: increased Additional Dosing Information: Description [facility] to contact patient with dose instructions as noted. Julissa Jean RPh 04/07/2024, 11:40 AM documented in this encounter Plan of Treatment Upcoming Encounters Date Type Department Care Team (Late st Contact Info) Description 04/14/2024 7:05 AM EDT Laboratory Lab [facility] [address] [place] [address] Mv, [facility] Draw [address] [place], [place] [address] 04/14/2024 2:00 PM EDT [facility] Visit [facility], [facility] [address] [facility] [place] [address] Sandra Cullen, RN [address] [facility] [place] [address] 04/15/2024 6:00 AM EDT Anticoagulation Centralized Clinical Pharmacy Services, [address] [place] [address] [place] [address] Ccps, [address] [place] [address] 05/29/2024 9:00 AM EDT [facility] Visit [facility] [place] [address] [facility] [place] [address] Gustavo Begum PA-C [address] [facility] [place] [address] 08/10/2024 10:40 AM EST Office Visit Family Practice [facility] [address] [facility] [place] [address] Angie Perez MD [address] [facility] [place], [place] [address] Health Maintenance Due Date Last Done Comments [...] D LEVEL ONCE IN A LIFETIME-USE SMARTSET# [id number] Completed 05/31/2020, 11/25/2019, 08/06/2019, Additional history exists [...] monitoring documented in this encounter Care Teams Tile Power Shear Operator Relationship Specialty Start Date End Date Angie Perez MD [address] [place] [address] PCP - General Family Medicine 04/07/24 documented as of this encounter
--- OUTSIDE RECORDS SUMMARY | 2024-06-21 01:24 | External Medical Summary | Summary of Care ---
Author Name Unknown Organization [facility] Address [address] [place] [address] Phone [phone] Care Team Providers Care Hand Shoes Sewer Name Role Phone Opal Perez MD Primary Care Provider [phone] Reason for Referral * Ancillary Services (Within 10 days (routine)) - Authorized Specialty Diagnoses / Procedures Referred By Contac t Referred To Contact National Sales Executive Diagnoses HTN, goal below 150/90 Anticoagulation management encounter Opal Perez MD [address] [place] [address] Referral ID Status Reason Start Date Expiration Date Visits Requested Visits Authorized [id number] Authorized Ancillary Services Required 04/07/2024 999 999 [...] on the next service day for the [facility] Home Phlebotomy does not service every geographical location on a daily basis. Contact [facility] Client Services at to find out service days for a specific location. Medical Laboratory [facility] Patient Name: Analy Haq : 1940 Sex: female Address [address] [facility] [address] Provider: Self? Opal Perez MD? Diagnosis: [...] of cerebrovascular accident Opal Perez MD [address] [place] [id number] Referral ID Status Reason Start Date Expiration Date Visits Requested Visits Authorized [id number] Authorized Specialty Services Required 04/07/2024 999 999 Question Answer Referral Priority Within 10 days (routine) Where should this appointment be scheduled? [facility] Comments Documentation of Xivy-se-Iihd Encounter Addendum Patient Name: Analy Haq I certify that this patient is under my care and that I, or a nurse practitioner or physician's press assistant working with me, had a [id number] encounter that meets the physician [id number] encounter requirements with this patient on: 04/07/24 [...] above services because: Patient recently discharged from [facility], now living with daughter. Homebound. Further, I certify that my clinical findings support that this patient is homebound (i.e. 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 [place] [address] Opal Perez MD [address] [place] [address] Hemiplegia and hemiparesis following cerebral infarction affecting [...] mouth in the morning. Active Saline Nasal [place] 0.65 % Nasal Solution (Riley) Administer 1 [place] into nostril as needed for Congestion. 4 [...] mRNA, LNP-s, No Pre serve, 2-Dose Series ([employer]) 08/19/2021,12/26/2020,12/05/2020 COVID-19, MRNA-LNP, 23-24, P F, 30 MCG/0.3 mL, 12 YRS AND ABOVE, IM ([employer] [facility]) 03/05/2024 Covid-19, Mrna, Lnp-s, Pf, B [...] Patient presents with Hospital Follow-Up D/C from [facility] HPI: Analy Haq is a 83 year old female. Patient is accompanied by her son Kp and her daughter Jo-Ann. The following issues were addressed today: Patient presents today after recent discharge from [facility]. She was there for the past year. Prior to that was at [facility], but transferred to [facility] after her and she needed increased level [...] EDT Analy Haq presents for D/C from [facility]. Medications & HM reviewed. Would like [...] Anticoagulation Centralized Clinical Pharmacy Services, Milli Breen [address] [place] [address] [place] [address] [address], [address] [place] [address] 04/14/2024 2:00 PM EDT [facility] Visit [facility], [facility] [address] [facility] [place] [address] Sandra Cullen, RN [address] [place] [address] 05/29/2024 9:00 AM EDT Home Visit [facility], [facility] [address] [place] [address] Gustavo Begum PA-C [address] [place] [address] 08/10/2024 10:40 AM EST Office Visit Family Practice [facility] [address] [facility] [place] [address] Opal Perez MD [address] [facility] [place] [address] Scheduled Orders Name Type Priority Associated Diagnoses [...] D LEVEL ONCE IN A LIFETIME-USE SMARTSET# [id number] Completed 05/31/2020, 11/25/2019, 08/06/2019, Additional history exists [...] monitoring documented in this encounter Care Teams Hand Shoes Sewer Relationship Specialty Start Date End Date Opal Perez MD [address] [place] [address] PCP - General Family Medicine 04/07/24 documented as of this encounter"
--- OUTSIDE RECORDS SUMMARY | 2024-06-21 01:24 | External Medical Summary | Summary of Care ---
Author Name Unknown Organization [facility] Address [address] [place] [address] Phone [phone] Care Team Providers Care Assembler Bonding Name Role Phone Dandre Baldwin Primary Care Provider Reason for Visit * Reason Onset Date Comments [facility]: Enrollment 04/03/2024 Encounter Details Date Type Department Care Team (Late st Contact Info) Description 04/03/2024 Telephone [facility], [facility] [address] [place] [address] Melissa Krueger OSA [address] [place] [address] [facility]: Enrollment Allergies Active Allergy Reactions Criticality Noted Date Comments Bacitracin Itching 02/20/2018 Ezetimibe 09/19/2008 Shellfish Allergy 03/25/2023 Sulfa Antibiotics 12/24/2017 Tramadol Itching 12/24/2017 documented as of this encounter (statuses as of 04/03/2024) Medications Medication Sig Dispensed Refills Start Date End Date Status Loratadine 10 MG Oral Tablet (Claritin) Take by mouth 1 Tablet in the morning. 90 Tablet 3 03/14/2022 Active Acetaminophen 325 MG Oral Tablet (Tylenol) Take by mouth 2 Tablets every 4 hours as needed for Fever >38C(100.5F) or Pain, Breakthrough. 100 Tablet 3 03/14/2022 Active Docusate Sodium 100 MG Oral Tablet Take 1 Tablet by mouth in the morning. Active Aspirin 81 MG Oral Tablet Chewable (Aspirin 81) Take 1 Tablet by mouth in the morning. Active Saline Nasal [place] 0.65 % Nasal Solution ([place]) Administer 1 [place] into nostril as needed for Congestion. 12/12/2023 [...] (Lipitor)Indications: History of cerebrovascular accident Take 1 Tablet by mouth in the morning. 30 Tablet 04/03/2024 Active Famotidine 20 MG Oral Tablet (Pepcid)Indications:G astroesophageal reflux disease without esophagitis Take 1 Tablet by mouth in the morning and 1 Tablet before bedtime. 60 Tablet 04/03/2024 Active Lisinopril 5 MG Oral Tablet (Prinivil)Indications :HTN, goal below 150/90 Take 1 Tablet by mouth in the morning. 30 Tablet 04/03/2024 Active Mirtazapine 15 MG Oral Tablet (Remeron)Indications: Moderate episode of recurrent major depressive disorder (HCC) Take 0.5 Tablets by mouth at bedtime. 15 Tablet 04/03/2024 Active Omeprazole 20 MG Oral Capsule Delayed Release (PriLOSEC)Indications :Gastroesophageal reflux disease without esophagitis Take 1 Capsule by mouth in the morning. 30 Capsule 04/03/2024 Active Potassium Chloride Mimi ER 10 MEQ Oral Tablet Extended Release Take 2 Tablets by mouth in the morning. 60 Tablet 04/03/2024 Active Sertraline HCl 25 MG Oral Tablet (Zoloft)Indications:M oderate episode of recurrent major depressive disorder (HCC) Take 1 Tablet by mouth in the morning. 30 Tablet 04/03/2024 Active Warfarin Sodium 3 MG Oral Tablet (Coumadin)Indications :History of DVT (deep vein thrombosis),Anticoagu lation management encounter Take 1 Tablet by mouth every evening. OR DIRECTED BY COUMADIN CLINIC 30 Tablet 04/03/2024 Active Triamcinolone Acetonide 0.1 % External Cream (Aristocort)Indicatio ns:Non-pressure chronic ulcer of buttock, unspecified ulcer stage (HCC),Dermatitis,Skin breakdown Apply topically to affected area 2 times a day. To affected area. 45 g 04/03/2024 Active documented as of this encounter (statuses as of 04/03/2024) Active Problems Problem Noted Date Diagnosed Date [...] as of this encounter (statuses as of 04/03/2024) Resolved Problems Problem Noted Date Diagnosed Date [...] as of this encounter (statuses as of 04/03/2024) Immunizations Name Administration Dates Next Due COVID-19 mRNA, LNP-s, No Pre serve, 2-Dose Series ([employer]) 08/19/2021,12/26/2020,12/05/2020 COVID-19, MRNA-LNP, 23-24, P F, 30 MCG/0.3 mL, 12 YRS AND ABOVE, IM ([employer]-Comirnat) 03/05/2024 Covid-19, Mrna, Lnp-s, Pf, B ivalent, [...] encounter Miscellaneous Notes * Telephone Encounter - Melissa Krueger OSA - 04/03/2024 4:27 PM EDT [facility] Engagement Attempt Engagement: Engagement Attempt 1: Contacted - Agreed to home-based services Scheduled appointment information: April 14 at 2 pm with Sandra Cullen Home Information: Has pets Advance Care Planning (ACP): No data was found Has Living Will or Advance Directive: No data was found Anticipated Sub-Program: Focused Care Management (3-9 months) Confirmation of Sub-Program Type (by care team driver): No data was found Handoff Information: Current care team notified via: No data was found Current telemonitoring equipment: No data was found Scheduled a New Enrollment visit with Sandra Cullen on April 14 at 2 pm. Spoke with patient's daughter and confirmed. documented in this encounter Plan of Treatment Upcoming Encounters Date Type Department Care Team (Late st Contact Info) Description 04/06/2024 6:45 AM EDT Anticoagulation [facility], [facility] [address] [place] [address] [place] [address] [place] [address] 04/07/2024 10:00 AM EDT Office Visit Family [facility] [address] [facility] [place] [address] Angie Perez MD [address] [facility] [place] [address] 04/14/2024 2:00 PM EDT Home Visit [facility], [facility] [address] [place] [address] Sandra Cullen RN [address] [place] [address] 05/29/2024 9:00 AM EDT Home Visit [facility] [place], [facility] [address] [place] [address] Gustavo Begum PA-C [address] [place] [address] Health Maintenance Due Date Last Done Comments Albumin/Creatinine Ratio 1958 DTaP,Tdap,and Td Vaccines (2 - Td or Tdap) 10/15/2021 10/15/2011 Depression Monitoring 05/18/2022 05/18/2021 COVID-19 Vaccine (6 - 2022- season) 2024 03/05/2024, 07/30/2023, 07/30/2023, Additional history exists DXA Scan 05/02/2024 05/02/2022, 04/07, 12/03/2018, Additional history exists Zoster Vaccines Completed 11/04/2019, 05/08, 10/19/2010 VITAMIN D LEVEL ONCE IN A LIFETIME-USE SMARTSET# [id number] Completed 05/31/2020, 11/25/2019, 08/06/2019, Additional history exists [...] filedocumented as of this encounter Care Teams Assembler Bonding Relationship Specialty Start Date End Date Dandre Baldwin DO [address] [place] [address] [place] [address] PCP - General Internal Medicine 03/13/22 documented as of this encounter
--- OUTSIDE RECORDS SUMMARY | 2024-06-21 01:24 | External Medical Summary | Summary of Care ---
Author Name Unknown Organization [facility] Address [address] [place] [address] Phone [phone] Care Team Providers Care Sanitary Chemist Name Role Phone Miguel AngelDandre mckeon Primary Care Provider [phone] Reason for Visit * Reason Comments Dosage Adjustment Via Phone (anticoag Cl inic) Encounter Details Date Type Department Care Team (Late st Contact Info) Description 04/06/2024 6:45 AM EDT Anticoagulation [facility], [place] [address] [place] [address] [place] [address] Acute deep vein thrombosis (DVT) of femoral vein of right lower extremity (HCC)* Allergies Active Allergy Reactions Criticality Noted Date Comments Bacitracin Itching 02/20/2018 Ezetimibe 09/19/2008 Shellfish Allergy 03/25/2023 Sulfa Antibiotics 12/24/2017 Tramadol Itching 12/24/2017 documented as of this encounter (statuses as of 04/06/2024) Medications Medication Sig Dispensed Refills Start Date [...] mouth in the morning. Active Saline Nasal [place] 0.65 % Nasal Solution ([place]) Administer 1 [place] into nostril as needed for Congestion. [...] as of this encounter (statuses as of 04/06/2024) Active Problems Problem Noted Date Diagnosed Date [...] as of this encounter (statuses as of 04/06/2024) Resolved Problems Problem Noted Date Diagnosed Date [...] as of this encounter (statuses as of 04/06/2024) Immunizations Name Administration Dates Next Due COVID-19 mRNA, LNP-s, No Pre serve, 2-Dose Series (Pfizer) 08/19/2021,12/26/2020,12/05/2020 COVID-19, MRNA-LNP, 23-24, P F, 30 MCG/0.3 mL, 12 YRS AND ABOVE, IM ([employer]-ComirnatVigme) 03/05/2024 Covid-19, Mrna, Lnp-s, Pf, B ivalent, [...] this encounter Progress Notes * Julissa Jean, [facility] - 04/06/2024 3:52 PM EDT Current lab order has one remaining draw. Will place new order after PCP referral placed. Julisas Jean Rph, Pharm.D. Clinical Pharmacist [facility] ([facility]) [phone] 04/06/2024,3:52 PM * Julissa Jean RPh - 04/06/2024 3:25 PM EDT Medication Therapy Disease Management - Anticoagulation Patient: Analy Haq | : 1940 Subjective Contacts Type Contact Phone/Fax 04/06/2024 03:26 PM EDT Phone (Outgoing) Analy Haq (Self) [phone] (H) Spoke to Patient - daughterJo-Ann Patient-Reported Symptoms: Patient Findings Positives: Other complaints Comments: Pt discharged home from [facility]. ACC managed while in SNF. Pt previously with outside PCP but establishing with Dr Rubio ([facility]) tomorrow. Pt will have INR drawn at lab during visit tomorrow but will require GML going forward. GML referral placed. Will forward to new PCP to place ACC referral. Objective Current Warfarin Dose As of 04/06/2024 Warfarin maintenance plan: 3 mg (1 mg x 3) every day INR Result As of 04/06/2024 INR goal: 2.0-3.0 INR used for dosing: No new INR was available at the time of this encounter. Assessment & Plan Warfarin Plan As of 04/06/2024 Full warfarin instructions: 3 mg every day Next INR check: 04/07/2024 1 Repeat PT/INR in 1 day(s) Weekly dose: not changed Additional Dosing Information: Description GML (needs referral placed after 04/07 lab draw) Julissa Jean RPh Clinical Pharmacist 04/06/2024, 3:34 PM documented in this encounter Plan of Treatment Upcoming Encounters Date Type Department Care Team (Late st Contact Info) Description 04/07/2024 10:00 AM EDT Office Visit Family Practice [facility] [address] [facility] [place] [address] Angie Perez MD [address] [facility] [place] [address] 04/07/2024 5:40 PM EDT Anticoagulation [facility], [facility] [address] [place] [address] [place] [address] [facility], [address] [place] [address] 04/14/2024 2:00 PM EDT Home Visit [facility], [facility] [address] [place] [address] Sandra Cullen RN [address] [place] [address] 05/29/2024 9:00 AM EDT Home Visit [facility], [facility] [address] [place] [address] Gustavo Begum PA-C [address] [place] [address] Health Maintenance Due Date Last Done Comments Albumin/Creatinine Ratio 1958 DTaP,Tdap,and Td Vaccines (2 - Td or Tdap) 10/15/2021 10/15/2011 Depression Monitoring 05/18/2022 05/18/2021 COVID-19 Vaccine ( season) 2024 03/05/2024, 07/30/2023, 07/30/2023, Additional history exists DXA Scan 05/02/2024 05/02/2022, 04/07, 12/03/2018, Additional history exists Influenza Vaccine (FLU shot) (#1) 2024 07/26/2023, 07/23/2022, 09/05/2021, Additional history exists Zoster Vaccines Completed 11/04/2019, 05/08, 10/19/2010 VITAMIN D LEVEL ONCE IN A LIFETIME-USE SMARTSET# [id number] Completed 05/31/2020, 11/25/2019, 08/06/2019, Additional history exists [...] Primary documented in this encounter Care Teams Sanitary Chemist Relationship Specialty Start Date End Date Dandre Baldwin DO [address] [place] [address] PCP - General Internal Medicine 03/13/22 documented as of this encounter"
--- OUTSIDE RECORDS SUMMARY | 2024-06-21 01:25 | External Medical Summary ---
Author Name Unknown Address Unknown Organization [facility] [address] [place] [address] Laboratory Report Ordering Provider Test Date Status SOLE HENDRIX 03/13/2024 06:02:00 Final Warfarin Therapy
INR: 2 .0-3.0 conventional anticoagulation
INR: 2.5- 3.5 high intensity anticoagulation Observation Date Value Abnormality Reference (Units ) Status PT 03/13/2024 06:02:00 16.8 Above high normal 11 .6-15.2 (seconds) Final INR 03/13/2024 06:02:00 1.4 Above high normal 0. 8-1.2 Final Performing Location [facility] [address] [place] [address]
--- OUTSIDE RECORDS SUMMARY | 2024-06-21 01:25 | External Medical Summary | Summary of Care ---
Author Name Unknown Organization [facility] Address [address] [facility] [address] Phone [phone] Care Team Providers Care Candy Dipper Name Role Phone ManuelDandre law Primary Care Provider [phone] Reason for Visit * Reason Comments Dosage Adjustment Via Phone (anticoag Cl inic) Encounter Details Date Type Department Care Team (Latest Contact Info) Description 03/13/2024 4:40 PM EDT Anticoagulation Central[facility] Clinical Pharmacy Services, [facility] [place] [address] [place] [address] [place] [address] [place] [address] [address] [facility] [place] [address] Anticoagulation management encounter* Allergies Active Allergy Reactions Criticality Noted Date Comments Bacitracin Itching 02/20/2018 Ezetimibe 09/19/2008 Shellfish Allergy 03/25/2023 Sulfa Antibiotics 12/24/2017 Tramadol Itching 12/24/2017 documented as of this encounter (statuses as of 03/13/2024) Medications Medication Sig Dispensed Refills Start Date [...] Tablet by mouth in the morning. Active Docusate Sodium 100 MG Oral Tablet Take 1 Tablet by mouth in the morning. Active Omeprazole 20 MG Oral Capsule Delayed Release (PriLOSEC) Take 1 Capsule by mouth in the morning and 1 Capsule before bedtime. Active Mirtazapine 15 MG Oral Tablet (Remeron) Take 1 Tablet by mouth at bedtime. 08/13/2023 Active Warfarin Sodium 1.5 MG OR TABS Take 2 mg by mouth every evening. Active Lisinopril 5 MG Oral Tablet (Prinivil) Take 1 Tablet by mouth in the morning. Active Atorvastatin Calcium 40 MG Oral Tablet (Lipitor) Take 1 Tablet by mouth in the morning. Active Aspirin 81 MG Oral Tablet Chewable (Aspirin 81) Take 1 Tablet by mouth in the morning. Active Saline Nasal [place] 0.65 % Nasal Solution ([place]) Administer 1 [place] into nostril as needed for Congestion. 12/12/2023 Active Saccharomyces boulardii 250 MG Oral Packet Take 250 mg by mouth in the morning. 12/12/2023 Active Potassium Chloride Mimi ER 10 MEQ Oral Tablet Extended Release Take 2 Tablets by mouth in the morning. 02/13/2024 Active Polyethylene Glycol 3350 17 GM/SCOOP Oral Powder (MiraLax) Take 17 g by mouth in the morning and 17 g before bedtime. Dissolve one heaping tablespoon in 8 ounces of water or juice.. 02/13/2024 Active documented as of this encounter (statuses as of 03/13/2024) Active Problems Problem Noted Date Diagnosed Date [...] as of this encounter (statuses as of 03/13/2024) Resolved Problems Problem Noted Date Diagnosed Date [...] as of this encounter (statuses as of 03/13/2024) Immunizations Name Administration Dates Next Due COVID-19 mRNA, LNP-s, No Pre serve, 2-Dose Series ([employer]) 08/19/2021,12/26/2020,12/05/2020 COVID-19, MRNA-LNP, 23-24, P F, 30 MCG/0.3 mL, 12 YRS AND ABOVE, IM ([employer]-ComirnatAquinox Pharmaceuticals) 03/05/2024 Covid-19, Mrna, Lnp-s, Pf, B ivalent, [...] Progress Notes * Julissa Jean RPh - 03/13/2024 10:15 AM EDT Images from the original note were not included. Medication Therapy Disease Management - Anticoagulation Patient: Analy Haq | : 1940 Detention/SNF Patient Anticoagulation Encounter Patient is a resident at: [facility] [place] -- CC to Yvette Boyd PA-C and Fax sent to number listed above detailing plan of care below. Please notify clinic with any unusual brusing or bleeding, N/V/D, medication or diet changes or anymissed or extra doses of Coumadin. Subjective Patient-Reported Symptoms: Objective Current Warfarin Dose As of 03/13/2024 Warfarin maintenance plan: 3 mg (1 mg x 3) every Mon, Wed, Sat; 2 mg (1 mg x 2) all other days INR Result As of 03/13/2024 INR goal: 2.0-3.0 INR used for dosin.4 (03/13/2024) Assessment & Plan Warfarin Plan As of 03/13/2024 Full warfarin instructions: 03/13: 4 mg; Otherwise 2 mg every Tue, Maya, Fri; 3 mg all other days Next INR check: 03/19/2024 Repeat PT/INR in 1 week(s) Weekly dose: increased Additional Dosing Information: Julissa Jean RPh Clinical Pharmacist 03/13/2024, 10:15 AM documented in this encounter Plan of Treatment Health Maintenance Due Date Last Done Comments Albumin/Creatinine Ratio 1958 DTaP,Tdap,and Td Vaccines (2 - Td or Tdap) 10/15/2021 10/15/2011 COVID-19 Vaccine (2022- season) 2024 03/05/2024, 07/30/2023, 07/30/2023, Additional history exists DXA Scan 05/02/2024 05/02/2022, 04/07, 12/03/2018, Additional history exists Zoster Vaccines Completed 11/04/2019, 05/08, 10/19/2010 VITAMIN D LEVEL ONCE IN A LIFETIME-USE SMARTSET# [id number] Completed 05/31/2020, 11/25/2019, 08/06/2019, Additional history exists [...] monitoring documented in this encounter Care Teams Candy Dipper Relationship Specialty Start Date End Date Dandre Baldwin DO [address] [place] [address] [place] [address] PCP - General Internal Medicine 03/13/22 documented as of this encounter"
--- OUTSIDE RECORDS SUMMARY | 2024-06-21 01:25 | External Medical Summary | Summary of Care ---
Author Name Unknown Organization [facility] Address [address] [place] [address] Phone [phone] Care Team Providers Care Auto Fleet Manager Name Role Phone Dandre Baldwin Primary Care Provider [phone] Reason for Visit * Reason Onset Date Comments Care Home Visit 03/03/2024 Encounter Details Date Type Department Care Team (Late st Contact Info) Description 03/03/2024 2:00 PM EDT Care Home Visit [facility] [place], [address] [place] [address] Yvette Boyd PA-C [address] [place] [address] [place] [address] Dermatitis* Allergies Active Allergy Reactions Criticality Noted Date Comments Bacitracin Itching 02/20/2018 Ezetimibe 09/19/2008 Shellfish Allergy 03/25/2023 Sulfa Antibiotics 12/24/2017 Tramadol Itching 12/24/2017 documented as of this encounter (statuses as of 03/03/2024) Medications Medication Sig Dispensed Refills Start Date [...] mouth in the morning. Active Saline Nasal [place] 0.65 % Nasal Solution ([place]) Administer 1 [place] into nostril as needed for Congestion. 12/12/2023 [...] as of this encounter (statuses as of 03/03/2024) Active Problems Problem Noted Date Diagnosed Date [...] as of this encounter (statuses as of 03/03/2024) Resolved Problems Problem Noted Date Diagnosed Date [...] as of this encounter (statuses as of 03/03/2024) Immunizations Name Administration Dates Next Due COVID-19 mRNA, LNP-s, No Pre serve, 2-Dose Series ([employer]) 08/19/2021,12/26/2020,12/05/2020 Covid-19, Mrna, Lnp-s, Pf, B ivalent, 30 Mcg, IM, 12 yrs and above ([employer]) 07/30/2023 H1N1 2009 Influenza, IM 08/10/2009 Pneumococcal [...] Pressure - - Pulse - - Temperature 36.8 C (98.2 F) 03/03/2024 2:59 PM ED T Respiratory Rate - - Oxygen Saturation - - Inhaled Oxygen Concentration - - Weight - [...] Care Team (Late st Contact Info) Description 03/06/2024 4:40 PM EDT [facility] [address] [facility] [place] [address] [facility] [address] [facility] [place] [address] Health Maintenance Due Date Last Done Comments Albumin/Creatinine Ratio 1958 DTaP,Tdap,and Td Vaccines (2 - Td or Tdap) 10/15/2021 10/15/2011 COVID-19 Vaccine (2022- season) 2023 07/30/2023, 07/30/2023, 08/19/2021, Additional history exists DXA Scan 05/02/2024 05/02/2022, 04/07, 12/03/2018, Additional history exists Zoster Vaccines Completed 11/04/2019, 05/08, 10/19/2010 VITAMIN D LEVEL ONCE IN A LIFETIME-USE SMARTSET# [id number] Completed 05/31/2020, 11/25/2019, 08/06/2019, Additional history exists [...] cause documented in this encounter Care Teams Auto Fleet Manager Relationship Specialty Start Date End Date Dandre Baldwin DO [address] [place] [address] PCP - General Internal Medicine 03/13/22 documented as of this encounter
--- OUTSIDE RECORDS SUMMARY | 2024-06-21 01:25 | External Medical Summary ---
Author Name Unknown Address Unknown Organization [facility] [place] [address] [place] [address] Laboratory Report Ordering Provider Test Date Status SOLE HENDRIX 03/06/2024 05:30:00 Final Warfarin Therapy
INR: 2 .0-3.0 conventional anticoagulation
INR: 2.5- 3.5 high intensity anticoagulation Observation Date Value Abnormality Reference (Units ) Status PT 03/06/2024 05:30:00 14.9 11.6-15.2 (seconds) Final INR 03/06/2024 05:30:00 1.2 0.8-1.2 Final Performing Location [facility] [address] [place] [address]
--- OUTSIDE RECORDS SUMMARY | 2024-06-21 01:25 | External Medical Summary ---
Author Name Unknown Address Unknown Organization [facility] [address] [place] [address] Laboratory Report Ordering Provider Test Date Status SOLE HENDRIX 03/30/2024 05:50:00 Final Warfarin Therapy
INR: 2 .0-3.0 conventional anticoagulation
INR: 2.5- 3.5 high intensity anticoagulation Observation Date Value Abnormality Reference (Units ) Status PT 03/30/2024 05:50:00 20.3 Above high normal 11 .6-15.2 (seconds) Final INR 03/30/2024 05:50:00 1.7 Above high normal 0. 8-1.2 Final Performing Location [facility] [place] [address] [place] [address]
--- OUTSIDE RECORDS SUMMARY | 2024-06-21 01:25 | External Medical Summary | Summary of Care ---
Author Name Unknown Organization [facility] Address [address] [place] [address] Phone [phone] Care Team Providers Care Material Engineer Name Role Phone Dandre Baldwin Primary Care Provider [phone] Encounter Details Date Type Department Care Team (Late st Contact Info) Description 03/30/2024 Orders Only Lab Mobile Phlebotomy [facility] [address] [place] [address] Yvette Boyd PA-C [address] [place] [address] DVT (deep venous thrombosis) ([facility])* Allergies Active Allergy Reactions Criticality Noted Date Comments Bacitracin Itching 02/20/2018 Ezetimibe 09/19/2008 Shellfish Allergy 03/25/2023 Sulfa Antibiotics 12/24/2017 Tramadol Itching 12/24/2017 documented as of this encounter (statuses as of 03/30/2024) Medications Medication Sig Dispensed Refills Start Date [...] mouth in the morning. Active Saline Nasal [place] 0.65 % Nasal Solution ([place]) Administer 1 [place] into nostril as needed for Congestion. 12/12/2023 [...] as of this encounter (statuses as of 03/30/2024) Active Problems Problem Noted Date Diagnosed Date [...] as of this encounter (statuses as of 03/30/2024) Resolved Problems Problem Noted Date Diagnosed Date [...] as of this encounter (statuses as of 03/30/2024) Immunizations Name Administration Dates Next Due COVID-19 mRNA, LNP-s, No Pre serve, 2-Dose Series ([employer]) 08/19/2021,12/26/2020,12/05/2020 COVID-19, MRNA-LNP, 23-24, P F, 30 MCG/0.3 mL, 12 YRS AND ABOVE, IM ([employer]-Comirnat) 03/05/2024 Covid-19, Mrna, Lnp-s, Pf, B ivalent, [...] Care Team (Late st Contact Info) Description 03/30/2024 4:40 PM EDT Anticoagulation [facility] Clinical [facility], [facility] [address] [place] [address] [place] [address] [place] [address] [address] [facility] [place] [address] Scheduled Orders Name Type Priority Associated Diagnoses Orde r Schedule PT INR Lab Routine DVT (deep venous thrombosis) (HCC) Expected: 03/30/2024, Expires: 03/30/2025 Health Maintenance Due Date Last Done Comments Albumin/Creatinine Ratio 1958 DTaP,Tdap,and Td Vaccines (2 - Td or Tdap) 10/15/2021 10/15/2011 Depression Monitoring 05/18/2022 05/18/2021 COVID-19 Vaccine ( season) 2024 03/05/2024, 07/30/2023, 07/30/2023, Additional history exists DXA Scan 05/02/2024 05/02/2022, 04/07, 12/03/2018, Additional history exists Zoster Vaccines Completed 11/04/2019, 05/08, 10/19/2010 VITAMIN D LEVEL ONCE IN A LIFETIME-USE SMARTSET# [id number] Completed 05/31/2020, 11/25/2019, 08/06/2019, Additional history exists [...] as of this encounter Visit Diagnoses Diagnosis DVT (deep venous thrombosis) (HCC)- Primary Acute venous embolism and thrombosis of unspecified deep vessels of lower extremity documented in this encounter Care Teams Material Engineer Relationship Specialty Start Date End Date Dandre Baldwin DO [address] [facility] [place] [address] PCP - General Internal Medicine 03/13/22 documented as of this encounter
--- OUTSIDE RECORDS SUMMARY | 2024-06-21 01:25 | External Medical Summary | Summary of Care ---
Author Name Unknown Organization [facility] Address [address] [facility] [address] Phone [phone] Care Team Providers Care Manufacturing Project Manager Name Role Phone ManuelDandre law Primary Care Provider [phone] Reason for Visit * Reason Comments Dosage Adjustment Via Phone (anticoag Cl inic) Encounter Details Date Type Department Care Team (Latest Contact Info) Description 03/30/2024 4:40 PM EDT Anticoagulation Centralized Clinical Pharmacy Services, Milli Breen [address] [place] [address] [place] [address] [place] [address] [address] [facility] [place] [address] Acute deep vein thrombosis (DVT) of femoral [...] mouth in the morning. Active Saline Nasal [place] 0.65 % Nasal Solution (Citrus) Administer 1 [place] into nostril as needed for Congestion. 12/12/2023 [...] mRNA, LNP-s, No Pre serve, 2-Dose Series ([employer]) 08/19/2021,12/26/2020,12/05/2020 COVID-19, MRNA-LNP, 23-24, P F, 30 MCG/0.3 mL, 12 YRS AND ABOVE, IM ([employer]) 03/05/2024 Covid-19, Mrna, Lnp-s, Pf, B ivalent, 30 Mcg, IM, 12 yrs and above ([employer]) 07/30/2023 H1N1 2009 Influenza, IM 08/10/2009 Pneumococcal [...] as of this encounter Progress Notes * Birdie Varner, [facility] - 03/30/2024 12:02 PM EDT Medication Therapy Disease Management - Anticoagulation Patient: Analy Haq | : 1940 Intermediate/SNF Patient Anticoagulation Encounter Patient is a resident at: [facility] [place] -- CC to Yvette Boyd PA-C and Fax sent to number listed above detailing plan of care below. Please notify clinic with any unusual brusing or bleeding, N/V/D, medication or diet changes or anymissed or extra doses of Coumadin. Objective Current Warfarin Dose As of 03/30/2024 Warfarin maintenance plan: 2 mg (1 mg x 2) every Tue, Fri; 3 mg (1 mg x 3) all other days INR Result As of 03/30/2024 INR goal: 2.0-3.0 INR used for dosin.7 (03/30/2024) Assessment & Plan Warfarin Plan As of 03/30/2024 Full warfarin instructions: 03/30: 4 mg; Otherwise 3 mg every day Next INR check: 04/08/2024 Repeat PT/INR in 1.5 week(s) Weekly dose: increased Birdie Varner RPh Clinical Pharmacist 03/30/2024, 12:02 PM documented in this encounter Plan of [...] D LEVEL ONCE IN A LIFETIME-USE SMARTSET# [id number] Completed 05/31/2020, 11/25/2019, 08/06/2019, Additional history exists [...] Primary documented in this encounter Care Teams Manufacturing Project Manager Relationship Specialty Start Date End Date Dandre Baldwin DO [address] [place] [address] [place] [address] PCP - General Internal Medicine 03/13/22 documented as of this encounter"
--- OUTSIDE RECORDS SUMMARY | 2024-06-21 01:25 | External Medical Summary | Summary of Care ---
Author Name Unknown Organization [facility] Address [address] [place] [address] Phone [phone] Care Team Providers Care Cigar Tobacco Processing Supervisor Name Role Phone Manuelthanh Dandre Primary Care Provider Reason for Visit * Reason Comments Dosage Adjustment Via Phone (anticoag Cl inic) Encounter Details Date Type Department Care Team (Latest Contact Info) Description 02/26/2024 4:40 PM EDT Anticoagulation Pharmacy Call Center [phone] [place] [address] [facility] 58 60 [facility] [place] [address] Anticoagulation management encounter* Allergies Active Allergy Reactions Criticality Noted Date Comments Bacitracin Itching 02/20/2018 Ezetimibe 09/19/2008 Shellfish Allergy 03/25/2023 Sulfa Antibiotics 12/24/2017 Tramadol Itching 12/24/2017 documented as of this encounter (statuses as of 02/26/2024) Medications Medication Sig Dispensed Refills Start Date [...] mouth in the morning. Active Saline Nasal [place] 0.65 % Nasal Solution (Faulkner) Administer 1 [place] into nostril as needed for Congestion. 12/12/2023 [...] as of this encounter (statuses as of 02/26/2024) Active Problems Problem Noted Date Diagnosed Date [...] as of this encounter (statuses as of 02/26/2024) Resolved Problems Problem Noted Date Diagnosed Date [...] as of this encounter (statuses as of 02/26/2024) Immunizations Name Administration Dates Next Due COVID-19 mRNA, LNP-s, No Pre serve, 2-Dose Series ([employer]) 08/19/2021,12/26/2020,12/05/2020 Covid-19, Mrna, Lnp-s, Pf, B ivalent, [...] Progress Notes * Julissa Jean RPh - 02/26/2024 11:58 AM EDT Images from the original note were not included. Medication Therapy Disease Management - Anticoagulation Patient: Analy Haq | : 1940 Alf/SNF Patient Anticoagulation Encounter Patient is a resident at: [facility] [place] -- CC to Yvette Boyd PA-C and Fax sent to number listed above detailing plan of care below. Please notify clinic with any unusual brusing or bleeding, N/V/D, medication or diet changes or anymissed or extra doses of Coumadin. Subjective Patient-Reported Symptoms: Objective Current Warfarin Dose As of 02/26/2024 Warfarin maintenance plan: 3 mg (1 mg x 3) every Wed; 2 mg (1 mg x 2) all other days INR Result As of 02/26/2024 INR goal: 2.0-3.0 INR used for dosin.3 (02/26/2024) Assessment & Plan Warfarin Plan As of 02/26/2024 Full warfarin instructions: 02/25: 6 mg; Otherwise 3 mg every Mon, Wed; 2 mg all other days Next INR check: 03/06/2024 Repeat PT/INR in 1.5 week(s) Weekly dose: increased Additional Dosing Information: Julissa Jean RPh Clinical Pharmacist 02/26/2024, 11:59 AM documented in this encounter Plan of Treatment Health Maintenance Due Date Last Done Comments Albumin/Creatinine Ratio 1956 DTaP,Tdap,and Td Vaccines (2 - Td or Tdap) 10/15/2021 10/15/2011 COVID-19 Vaccine ( season) 2023 07/30/2023, 07/30/2023, 07/30/2023, Additional history exists DXA Scan 05/02/2024 05/02/2022, 04/07, 12/03/2018, Additional history exists Zoster Vaccines Completed 11/04/2019, 10/08, 05/27/2019, Additional history exists VITAMIN D LEVEL ONCE IN A LIFETIME-USE SMARTSET# [id number] Completed 05/31/2020, 11/25/2019, 08/06/2019, Additional history exists [...] monitoring documented in this encounter Care Teams Cigar Tobacco Processing Supervisor Relationship Specialty Start Date End Date Dandre Baldwin DO [facility] [place] [address] PCP - General Internal Medicine 03/13/22 documented as of this encounter"
--- OUTSIDE RECORDS SUMMARY | 2024-06-21 01:25 | External Medical Summary | Summary of Care ---
Author Name Unknown Organization [facility] Address [address] [place] [address] Phone [phone] Care Team Providers Care Computerized Mill Recorder Name Role Phone Dandre Baldwin Primary Care Provider [phone] Reason for Referral * Evaluate & Treat - Unlimited Visits (Within 3 days (urgent)) - Authorized Specialty Diagnoses / Procedures Referred By Gretchen caldwell Referred To Contact HOME CARE / Home Care Diagnoses Hemiplegia and hemiparesis following cerebral infarction affecting left non-dominant side (HCC) History of cerebrovascular accident Generalized weakness History of DVT (deep vein thrombosis) Anticoagulation management encounter Yvette Boyd PA-C [address] [place] [id number] Referral ID Status Reason Start Date Expiration Date Visits Requested Visits Authorized [id number] Authorized Specialty Services Required 04/03/[phone] Question Answer Referral Priority Within 3 days (urgent) Where should this appointment be scheduled? External Comments Documentation of Ychk-cn-Syaf Encounter Addendum Patient Name: Analy Haq I certify that this patient is under my care and that I, or a nurse practitioner or physician's operator assistant i cementing working with me, had a [id number] encounter that meets the physician [id number] encounter requirements with this patient on: 04/03/24 The encounter with the patient was in whole, or in part, for the following medical condition, which is the primary reason for home health care (List medical condition): ADL dysfunction I certify that, based on my findings, the following services are medically necessary home health services: Nursing, Physical Therapy, Speech Language Pathology, and home health aide To provide the following care/treatments: (All hospitalists not following the patient after discharge should complete this section): medication management, wound/skin care, lab draws, adjusted to home setting Primary Care Physician to follow home care plan of care after discharge: Angie Perez My clinical findings support the need for the above services because: pt nonambulatory Further, I certify that my clinical findings support that this patient is homebound (i.e. Absences from home require considerable and taxing effort and are for medical reasons or cheondoism services or infrequently or of short duration when for other reason) because: Nonambulatory Physician Signature: Date of Signature: Physician Printed Name: Yvette Boyd PA-C Reason for Visit * Reason Onset Date Comments Mcc Visit - Discharge 04/03/2024 Encounter Details Date Type Department Care Team (Late st Contact Info) Description 04/03/2024 11:00 AM EDT Mcc Visit [address] [place] [address] Yvette Boyd PA-C [address] [place] [address] [place] [address] Hemiplegia and hemiparesis following cerebral infarction affecting left non-dominant side (HCC)*; History of cerebrovascular accident; Senile dementia, uncomplicated (HCC); Generalized weakness; History of DVT (deep vein thrombosis); Anticoagulation management encounter; Moderate episode of recurrent major depressive disorder (HCC); HTN, goal below 150/90; SIADH (syndrome of inappropriate ADH production) ([facility]); Gastroesophageal reflux disease without esophagitis; Spencer's palsy; Non-pressure chronic ulcer of buttock, unspecified ulcer stage ([facility]); Dermatitis; Skin breakdown Allergies Active Allergy Reactions Criticality Noted Date [...] mouth in the morning. Active Saline Nasal [place] 0.65 % Nasal Solution (Downing) Administer 1 [place] into nostril as needed for Congestion. 12/12/2023 [...] (Lipitor)Indications :History of cerebrovascular accident Take 1 Tablet by mouth in the morning. 30 Tablet 04/03/2024 Active Famotidine 20 MG Oral Tablet (Pepcid)Indications: Gastroesophageal reflux disease without esophagitis Take 1 Tablet by mouth in the morning and 1 Tablet before bedtime. 60 Tablet 04/03/2024 Active Lisinopril 5 MG Oral Tablet (Prinivil)Indication s:HTN, goal below 150/90 Take 1 Tablet by mouth in the morning. 30 Tablet 04/03/2024 Active Mirtazapine 15 MG Oral Tablet (Remeron)Indications [...] To affected area. 45 g 04/03/2024 Active Famotidine 20 MG Oral Tablet (Pepcid)Indications: History of fracture of right hip Take by mouth 1 Tablet in the morning AND 1 Tablet before bedtime. 180 Tablet 3 03/14/2022 4 Discontinu ed(Refill) Sertraline HCl 25 MG Oral Tablet (Zoloft) Take 1 Tablet by mouth in the morning. 4 Discontinu ed(Refill) Omeprazole 20 MG Oral Capsule Delayed Release (PriLOSEC) Take 1 Capsule by mouth in the morning and 1 Capsule before bedtime. 4 Discontinu ed(Refill) Mirtazapine 15 MG Oral Tablet (Remeron) Take 1 Tablet by mouth at bedtime. 08/13/2023 4 Discontinu ed(Refill) Warfarin Sodium 1.5 MG OR TABS Take 2 mg by mouth every evening. 4 Discontinu ed(Refill) Lisinopril 5 MG Oral Tablet (Prinivil) Take 1 Tablet by mouth in the morning. 4 Discontinu ed(Refill) Atorvastatin Calcium 40 MG Oral Tablet (Lipitor) Take 1 Tablet by mouth in the morning. Discontinu ed(Refill) Potassium Chloride Mimi ER 10 MEQ Oral Tablet Extended Release Take 2 Tablets by mouth in the morning. 02/13/2024 4 Discontinu ed(Refill) documented as of this encounter [...] mRNA, LNP-s, No Pre serve, 2-Dose Series ([employer]) 08/19/2021,12/26/2020,12/05/2020 COVID-19, MRNA-LNP, 23-24, P F, 30 MCG/0.3 mL, 12 YRS AND ABOVE, IM ([employer]) 03/05/2024 Covid-19, Mrna, Lnp-s, Pf, B ivalent, [...] No 12/24/2017 documented as of this encounter Patient Instructions * Patient Instructions* Yvette Boyd PA-C - 04/03/2024 2:18 PM EDT Your current coumadin dose is 3 mg daily (anticoagulant medication for blood clots). Your next PT/INR (blood work to manage coumadin dosing) is due 04/08/24. This can be drawn on 04/07/[address] Perez, or can be drawn on 04/08/24 by home health and dropped off at any lab for processing. documented in this encounter Plan of Treatment Upcoming Encounters Date Type Department Care Team (Late st Contact Info) Description 04/07/2024 10:00 AM EDT Office Visit Family Practice [facility] Smith [address] [facility] [place] [address] Angie Perez MD [address] [facility] [place] [address] 04/08/2024 4:40 PM EDT Anticoagulation Centralized Clinical Pharmacy Services, Milli Breen [address] [place] [address] [place] [address] [place] [address] Scheduled Orders Name Type Priority Associated Diagnoses Orde r Schedule PT INR Lab Routine History of DVT (deep vein thrombosis) Anticoagulation management encounter Expected: 04/08/2024 (Approximate), Expires: 04/03/2025 Scheduled Referrals Name Type Priority Associated Diagnoses Orde r Schedule HOME HEALTH REFERRAL OP Referral Within 3 days (urgent) Hemiplegia and hemiparesis following cerebral infarction affecting left non-dominant side (HCC) History of cerebrovascular accident Generalized weakness History of DVT (deep vein thrombosis) Anticoagulation management encounter Ordered: 04/03/2024 Health Maintenance Due Date Last Done Comments Albumin/Creatinine Ratio 1958 DTaP,Tdap,and Td Vaccines (2 - Td or Tdap) 10/15/2021 10/15/2011 Depression Monitoring 05/18/2022 05/18/2021 COVID-19 Vaccine ( season) 2024 03/05/2024, 07/30/2023, 07/30/2023, Additional history exists DXA Scan 05/02/2024 05/02/2022, 04/07, 12/03/2018, Additional history exists Zoster Vaccines Completed 11/04/2019, 05/08, 10/19/2010 VITAMIN D LEVEL ONCE IN A LIFETIME-USE SMARTSET# [id number] Completed 05/31/2020, 11/25/2019, 08/06/2019, Additional history exists [...] Senile dementia, uncomplicated (HCC) Senile dementia, uncomplicated Generalized weakness Other malaise and fatigue History of DVT (deep vein thrombosis) Personal history of venous thrombosis and embolism Anticoagulation management encounter Encounter for therapeutic drug monitoring Moderate episode of recurrent major depressive disorder (HCC) HTN, goal below 150/90 SIADH (syndrome of inappropriate ADH production) (HCC) Other disorders of neurohypophysis Gastroesophageal reflux disease without esophagitis Esophageal reflux 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
--- OUTSIDE RECORDS SUMMARY | 2024-06-21 01:25 | External Medical Summary | Summary of Care ---
Author Name Unknown Organization [facility] Address [address] [place] [address] Phone [phone] Care Team Providers Care Slab Installer Name Role Phone Miguel AngelDandre mckeon Primary Care Provider [phone] Encounter Details Date Type Department Care Team (Late st Contact Info) Description 04/01/2024 Telephone [facility], [address] [place] [address] Yvette Boyd PA-C [address] [place] [address] [place] [address] Allergies Active Allergy Reactions Criticality Noted Date Comments Bacitracin Itching 02/20/2018 Ezetimibe 09/19/2008 Shellfish Allergy 03/25/2023 Sulfa Antibiotics 12/24/2017 Tramadol Itching 12/24/2017 documented as of this encounter (statuses as of 04/01/2024) Medications Medication Sig Dispensed Refills Start Date [...] mouth in the morning. Active Saline Nasal [place] 0.65 % Nasal Solution (Es[place]) Administer 1 [place] into nostril as needed for Congestion. 12/12/2023 [...] as of this encounter (statuses as of 04/01/2024) Active Problems Problem Noted Date Diagnosed Date [...] as of this encounter (statuses as of 04/01/2024) Resolved Problems Problem Noted Date Diagnosed Date [...] as of this encounter (statuses as of 04/01/2024) Immunizations Name Administration Dates Next Due COVID-19 mRNA, LNP-s, No Pre serve, 2-Dose Series ([employer]) 08/19/2021,12/26/2020,12/05/2020 COVID-19, MRNA-LNP, 23-24, P F, 30 MCG/0.3 mL, 12 YRS AND ABOVE, IM ([employer]) 03/05/2024 Covid-19, Mrna, Lnp-s, Pf, B ivalent, [...] encounter Miscellaneous Notes * Telephone Encounter - Yvette Boyd PA-C - 04/01/2024 12:24 PM EDT Pt discharging home on 04/05/24, in need of equipment orders prior to discharge. (Wheelchair, monika lift, hospital bed, alternating pressure mattress) Hemiplegia and hemiparesis following cerebral infarction affecting left non- dominant side (HCC) (Primary) - DURABLE MEDICAL EQUIPMENT - DURABLE MEDICAL EQUIPMENT - DURABLE MEDICAL EQUIPMENT - DURABLE MEDICAL EQUIPMENT History of cerebrovascular accident - DURABLE MEDICAL EQUIPMENT - DURABLE MEDICAL EQUIPMENT - DURABLE MEDICAL EQUIPMENT - DURABLE MEDICAL EQUIPMENT Generalized weakness - DURABLE MEDICAL EQUIPMENT - DURABLE MEDICAL EQUIPMENT - DURABLE MEDICAL EQUIPMENT - DURABLE MEDICAL EQUIPMENT Non-pressure chronic ulcer of buttock, unspecified ulcer stage (HCC) - DURABLE MEDICAL EQUIPMENT - DURABLE MEDICAL EQUIPMENT - DURABLE MEDICAL EQUIPMENT - DURABLE MEDICAL EQUIPMENT Yvette Boyd PA-C documented in this encounter Plan of Treatment Upcoming Encounters Date Type Department Care Team (Late st Contact Info) Description 04/07/2024 10:00 AM EDT [facility] [address] [facility] [place] [address] Angie Perez MD [address] [facility] [place] [address] 04/08/2024 4:40 PM EDT Anticoagulation Centralized Clinical Pharmacy Services, Milli Breen [address] [place] [address] [place] [address] [facility] 58 60 [facility] [place] [address] Health Maintenance Due Date Last Done Comments Albumin/Creatinine Ratio 1958 DTaP,Tdap,and Td Vaccines (2 - Td or Tdap) 10/15/2021 10/15/2011 Depression Monitoring 05/18/2022 05/18/2021 COVID-19 Vaccine ( season) 2024 03/05/2024, 07/30/2023, 07/30/2023, Additional history exists DXA Scan 05/02/2024 05/02/2022, 04/07, 12/03/2018, Additional history exists Zoster Vaccines Completed 11/04/2019, 05/08, 10/19/2010 VITAMIN D LEVEL ONCE IN A LIFETIME-USE SMARTSET# [id number] Completed 05/31/2020, 11/25/2019, 08/06/2019, Additional history exists [...] (TIA), and cerebral infarction without residual deficits Generalized weakness Other malaise and fatigue Non-pressure chronic ulcer of buttock, unspecified ulcer stage (HCC) documented in this encounter Care Teams Slab Installer Relationship Specialty Start Date End Date Dandre Baldwin DO [address] [facility] [place] [id number] PCP - General Internal Medicine 03/13/22 documented as of this encounter
--- OUTSIDE RECORDS SUMMARY | 2024-06-21 01:25 | External Medical Summary | Summary of Care ---
Author Name Unknown Organization [facility] Address [address] [place] [address] Phone [phone] Care Team Providers Care Underground Mining Section Foreman Name Role Phone Manuelthanh Dandre Primary Care Provider Reason for Visit * Reason Comments Dosage Adjustment Via Phone (anticoag Cl inic) Encounter Details Date Type Department Care Team (Latest Contact Info) Description 03/06/2024 4:40 PM EDT Anticoagulation Pharmacy Call Center [address] [place] [address] [facility] 58 60 [facility] [place] [address] Anticoagulation management encounter* Allergies Active Allergy Reactions Criticality Noted Date Comments Bacitracin Itching 02/20/2018 Ezetimibe 09/19/2008 Shellfish Allergy 03/25/2023 Sulfa Antibiotics 12/24/2017 Tramadol Itching 12/24/2017 documented as of this encounter (statuses as of 03/06/2024) Medications Medication Sig Dispensed Refills Start Date [...] mouth in the morning. Active Saline Nasal [place] 0.65 % Nasal Solution (Banks) Administer 1 [place] into nostril as needed for Congestion. 12/12/2023 [...] as of this encounter (statuses as of 03/06/2024) Active Problems Problem Noted Date Diagnosed Date [...] as of this encounter (statuses as of 03/06/2024) Resolved Problems Problem Noted Date Diagnosed Date [...] as of this encounter (statuses as of 03/06/2024) Immunizations Name Administration Dates Next Due COVID-19 mRNA, LNP-s, No Pre serve, 2-Dose Series (boo-box) 08/19/2021,12/26/2020,12/05/2020 Covid-19, Mrna, Lnp-s, Pf, B ivalent, [...] as of this encounter Progress Notes * Sophie Whatley RPh - 03/06/2024 9:52 AM EDT Images from the original note were not included. Medication Therapy Disease Management - Anticoagulation Patient: Analy Haq | : 1940 Subjective Custodial/SNF Patient Anticoagulation Encounter Patient is a resident at: [facility] [place] -- CC to Yvette Boyd PA-C and Fax sent to number listed above detailing plan of care below. Please notify clinic with any unusual brusing or bleeding, N/V/D, medication or diet changes or anymissed or extra doses of Coumadin. Patient-Reported Symptoms: Objective Current Warfarin Dose As of 03/06/2024 Warfarin maintenance plan: 3 mg (1 mg x 3) every Mon, Wed; 2 mg (1 mg x 2) all other days INR Result As of 03/06/2024 INR goal: 2.0-3.0 INR used for dosin.2 (03/06/2024) Assessment & Plan Warfarin Plan As of 03/06/2024 Full warfarin instructions: 03/06: 4 mg; Otherwise 3 mg every Mon, Wed, Sat; 2 mg all other days Next INR check: 03/13/2024 Repeat PT/INR in 1 week(s) Weekly dose: increased Additional Dosing Information: Sophie Whatley RPh Clinical Pharmacist 03/06/2024, 9:52 AM documented in this encounter Plan of Treatment Health Maintenance Due Date Last Done Comments Albumin/Creatinine Ratio 1958 DTaP,Tdap,and Td Vaccines (2 - Td or Tdap) 10/15/2021 10/15/2011 COVID-19 Vaccine (2022-24 season) 2023 07/30/2023, 07/30/2023, 08/19/2021, Additional history exists DXA Scan 05/02/2024 05/02/2022, 04/07, 12/03/2018, Additional history exists Zoster Vaccines Completed 11/04/2019, 05/08, 10/19/2010 VITAMIN D LEVEL ONCE IN A LIFETIME-USE SMARTSET# [id number] Completed 05/31/2020, 11/25/2019, 08/06/2019, Additional history exists [...] monitoring documented in this encounter Care Teams Underground Mining Section Foreman Relationship Specialty Start Date End Date Dandre Baldwin DO [address] [facility] [place] [address] PCP - General Internal Medicine 03/13/22 documented as of this encounter"
--- OUTSIDE RECORDS SUMMARY | 2024-06-21 01:25 | External Medical Summary | Summary of Care ---
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 External Comments Documentation of [id number] Encounter Addendum Patient Name: Analy Haq I certify that this patient is under my care and that I, or a nurse practitioner or physician's records management assistant working with me, had a [id number] encounter that meets the physician [id number]-kg-[id number] encounter requirements with this patient on: 04/03/24 [...] for Visit * Reason Onset Date Comments [facility] Visit - Discharge 04/03/2024 Encounter Details Date Type Department Care Team (Late st Contact Info) Description 04/03/2024 11:00 AM EDT [facility] Visit [address] [place] [address] Yvette Boyd PA-C [address] [place] [address] [place] [id number] Hemiplegia and hemiparesis following cerebral infarction affecting left non-dominant side (HCC)*; History of cerebrovascular accident; Senile dementia, uncomplicated (HCC); Generalized weakness; History of DVT (deep vein thrombosis); Anticoagulation management encounter; Moderate episode of recurrent major depressive disorder (HCC); HTN, goal below 150/90; SIADH (syndrome of inappropriate ADH production) ([facility]); Gastroesophageal reflux disease without esophagitis; Spencer's palsy; Non-pressure chronic ulcer of buttock, unspecified ulcer stage ([facility]); Dermatitis; Skin breakdown Allergies Active Allergy Reactions [...] mouth in the morning. Active Saline Nasal [place] 0.65 % Nasal Solution ([place]) Administer 1 [place] into nostril as needed for Congestion. 12/12/2023 [...] mRNA, LNP-s, No Pre serve, 2-Dose Series ([employer]) 08/19/2021,12/26/2020,12/05/2020 COVID-19, MRNA-LNP, 23-24, P F, 30 MCG/0.3 mL, 12 YRS AND ABOVE, IM ([employer]) 03/05/2024 Covid-19, Mrna, Lnp-s, Pf, B ivalent, [...] or can be drawn on 04/08/24 by [facility] and dropped off at any lab for processing. documented in this encounter Progress Notes * Yvette Boyd PA-C - 04/03/2024 11:00 AM EDT DISCHARGE NOTE TRANSITION EVENT: Type: Discharge to home Date: April 05 Code Status: No Code Name: Analy Haq Date of : 1940 This note pertains to care provided at [facility]. Please see facility medical record for original note. This note is not to be edited or addended in [facility]. Editing or addending needs to occur in the facilities medical record. Discharge Medications: Current Outpatient Medications Medication Sig Dispense Refill Atorvastatin Calcium 40 MG Oral Tablet (Lipitor) Take 1 Tablet by mouth in the morning. 30 Tablet 0 Famotidine 20 MG Oral Tablet (Pepcid) Take 1 Tablet by mouth in the morning and 1 Tablet before bedtime. 60 Tablet 0 Lisinopril 5 MG Oral Tablet (Prinivil) Take 1 Tablet by mouth in the morning. 30 Tablet 0 Mirtazapine 15 MG Oral Tablet (Remeron) Take 0.5 Tablets by mouth at bedtime. 15 Tablet 0 Omeprazole 20 MG Oral Capsule Delayed Release (PriLOSEC) Take 1 Capsule by mouth in the morning. 30Capsule 0 Potassium Chloride Mimi ER 10 MEQ Oral Tablet Extended Release Take 2 Tablets by mouth in the morning. 60 Tablet 0 Sertraline HCl 25 MG Oral Tablet (Zoloft) Take 1 Tablet by mouth in the morning. 30 Tablet 0 Warfarin Sodium 3 MG Oral Tablet (Coumadin) Take 1 Tablet by mouth every evening. [facility] Tablet 0 Triamcinolone Acetonide 0.1 % External Cream (Aristocort) Apply topically to affected area 2 times a day. To affected area. 45 g 0 Loratadine 10 MG Oral Tablet (Claritin) Take by mouth 1 Tablet in the morning. 90 Tablet 3 Acetaminophen 325 MG Oral Tablet (Tylenol) Take by mouth 2 Tablets every 4 hours as needed for Fever >38C(100.5F) or Pain, Breakthrough. 100 Tablet 3 Docusate Sodium 100 MG Oral Tablet Take 1 Tablet by mouth in the morning. Aspirin 81 MG Oral Tablet Chewable (Aspirin 81) Take 1 Tablet by mouth in the morning. Saline Nasal [place] 0.65 % Nasal Solution ([place]) Administer 1 [place] into nostril as needed for Congestion. Saccharomyces boulardii 250 MG Oral Packet Take 250 mg by mouth in the morning. Polyethylene Glycol 3350 17 GM/SCOOP Oral Powder (MiraLax) Take 17 g by mouth in the morning and 17g before bedtime. Dissolve one heaping tablespoon in 8 ounces of water or juice.. No current facility-administered medications for this visit. S: Analy Haq is being discharged from [facility] to home. Admitted to [facility] on 03/22/2023 for rehab following hospitalization (as summarized below) and remained in the facility for meterman care. Per admitting note dated 03/28/23: "Analy Haq had been admitted to [facility] from [facility] for PT and OT. Recently admitted to [facility] on 03/15/23 because of severe abdominal pain and altered mental status and was transferred here and admitted on 03/22/2023. From On Service Note: "Medically complex patient who generally resides at [facility] assisted living facility with history of advanced dementia, prior falls, HTN, bilateral hip fractures about 1 year ago, depression, SIADH, who had recently been on hospice due to advancing dementia, was sent to the ER on 03/15/2023 due to decreased oral intakes and abdominal pain. CT of the abdomen and pelvis indicated the following abnormalities: 1. There is rectosigmoid fecal impaction. The rectum measures up to 10 cm in diameter with evidenceof severe stercoral proctitis. 2. There is evidence of cystitis. Correlate with clinical findings and urinalysis. 3. The endometrial cavity is distended and filled with gas and debris. There is associated mucosal hyperemia and inflammation around the uterus. This likely represents infection/endometritis. There may be formed stool within the uterus and vagina. 4. 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 She was admitted for ongoing managmenet. Extensive conversation was held between the family, palliative medicine, hospitalists regarding complex fistula, family was in favor of antibiotic treatment for infection, but were not interested in pursuing additional testing/treatment including specialty consultation or consideration of surgical intervention. POLST form completed with palliative care during hospitalization indicates wishes for DNR/DNI, comfort measures, and trial of antibiotics and fluids. Urine culture grew klebsiella oxytoca. She was discharged on an additional 7 days of cefuroxime forinfection." Patient is now admitted for PT/OT. Family may consider consulting hospice services again once her rehab course is complete. Family is also not sure if assisted living was able to meet her care needs and she may need an ongoing higher level of care." She was re-hospitalized in November of 2023 with an acute CVA, as summarized below: "Long-term resident of this facility with history of dementia, depression, GERD, prior breast cancer, previously on hospice care (discharged mid 2022 during a hospitalization), and other history as noted below who was sent to the ER from this facility on 11/19/23 due to acute onset of slurred speechand left sided weakness. In the ER, stroke alert was called, initial imaging included CT head (moderate atrophy and periventricular white matter low density consistent with chronic small vessel disease and/or senescent changes, similar to previous. No acute large vessel infarct or intracranial hemorrhage is identified), CTA head (no acute findings), neck CTA (50% stenosis right ICA, 30% stenosis left ICA). Telestroke didnot recommend thrombolytic therapy. She was admitted for ongoing management and evaluation. MRI brain later showed oval 2 x 1 x 1 cm focus of diffusion restriction and T2 hyperintensity in the right internal capsule and right frontal lobe deep wqhite matter consistent with acute small vessel infarct. She was seen by neurology, recommendations included BP management, dual antiplatelet therapy x at least 3 weeks, high dose statin, and additional metabolic workup and echocardiogram. D dimer was elevated, venous doppler of the lower extremities showed nearly occlusive to occlusive DVT in the right common femoral and superficial femoral veins, and non-occlusive and chronic appearing thrombus in the left common femoral vein. Neurology then recommended aspirin alone, in setting offull anticoagulation. She was seen by vascular surgery regarding right ICA stenosis, no surgical intervention was recommended. She was begun on full anticoagulation due to DVT, serial head CT scans showed no changes in the right basal ganglia/internal capsule infarct. She had an episode concerning for aspiration, however never developed a pneumonia. Video swallow indicated a few episodes of trace aspiration with thin and nectar liquids. New medications include: atorvastatin 40 mg daily, lisinopril 5 mg daily, aspirin 81 mg daily, and warfarin. Daughter does report a known history of DVT at some point in the past 2-3 years, possibly related to a prior hip fracture. Daughter, Jo-Ann, at bedside and provides most of the history at this time. She voices understanding of recent imaging findings, recent lab findings. She does report, as above, a prior history of DVT which had been managed at her previous personal care facility." She was again hospitalized in December 2023, as summarized below: "LTC pt of this facility with history of CVA, dementia, prior DVT, anemia, SIADH, GERD, hyperparathyroidism, and other history as noted below was sent to the ER on 01/03/34 due to severe abdominal pain. 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 WBC mildly elevated to 11.78. she was started on ceftriaxone and admitted for ongoing management. She was seen by urology, no urgent intervention was recommended and outpatient urology follow up was recommended. Initial urine culture grew three types of organisms, all high counts, this was repeated and again had same results. Pertinent labs 01/08/24: WBC 6.52, hgb 9.8, plt 269, INR 1.7, Na 138, K 3.1, creat 0.57, She has been discharged on an additional 6 days of cefdinir. " She has resumed long-term placement in the facility. 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 She requires complete assistance with ADLs, is non-ambulatory, and transfers with a monika lift. 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, no XRT or Chemo HTN, goal below 150/90 Osteoporosis Sciatica Patient Active Problem List Diagnosis Closed stable burst fracture of twelfth thoracic vertebra with routine healing Spondylolisthesis of lumbar region DDD (degenerative disc disease), lumbar Spinal stenosis of lumbar region without neurogenic claudication HTN, goal below 150/90 Senile osteoporosis Spencer's palsy Senile dementia, uncomplicated ([facility]) Moderate episode of recurrent major depressive disorder ([facility]) Closed avulsion fracture of greater trochanter of femur with routine healing, right S/p left hip fracture S/P hip hemiarthroplasty Slow transit constipation S/P right hip fracture SIADH (syndrome of inappropriate ADH production) ([facility]) Acute deep vein thrombosis (DVT) of femoral vein of right lower extremity ([facility]) History of cerebrovascular accident Seasonal allergic rhinitis Hemiplegia and hemiparesis following cerebral infarction affecting left non- dominant side ([facility]) Past Surgical History: Procedure Laterality Date MASTECTOMY, PARTIAL Left 2008 DCIS [place] HEMIARTHROPLASTY HIP PARTIAL Right 12/26/2021 R Hip Fx--Dr. Frausto REPAIR HIP FRACTURE(S), W/FIXATION Left 02/04/2022 Dr. Kc--intramedullary nail Family History Problem Relation Name Age of Onset Hypertension Mother Alzheimer's disease Mother Hypertension Father Heart Disorder Father Diabetes Grandmother (Paternal) Breast Cancer Aunt (Paternal) Breast Cancer Aunt (Paternal) Breast Cancer Aunt (Paternal) Heart Disorder Brother unkown Family Status Relation Status Mo Alive Fa Alive emphysema Son Alive Unknown (Not Specified) Social History Socioeconomic History Marital status: Spouse name: Not on file Number of children: Not on file Years of education: Not on file Highest education level: Not on file Occupational History Not on file Tobacco Use Smoking status: Never Smokeless tobacco: Never Vaping Use Vaping status: Never Used Substance and Sexual Activity Alcohol use: Yes [...] Never true Transportation Needs: Not on file Social Connections: Unknown (03/24/2024) Social Connections How often do you feel lonely or isolated from those around you? (Adult - for ages 18 years and over): Not on file Housing Stability: Not on file Review of patient's allergies indicates: Allergen Reactions Bacitracin Itching Ezetimibe Shellfish Allergy Sulfa Antibiotics Tramadol Itching Adequate nutrition/fluids: Yes Bowel/Bladder dysfunction: Yes - incontinent of bowel and bladder Assistive Devices: non ambulating ADL: dependent O: General: alert and no distress Head: Normocephalic Eye Exam: conjunctiva are pink and non-injected, sclera clear Oropharynx: lips, buccal mucosa, and tongue normal and mucous membranes are moist Heart: regular rate & rhythm Lungs: chest symmetric with normal AP diameter, no chest deformities noted, no chest wall tenderness, lungs clear to auscultation Abdomen: abdomen soft, non-tender, normal bowel sounds, no masses or organomegaly, and no rebound or guarding Extremities: less than 2 second capillary refill, no joint deformities, effusion, or inflammation, no edema Neuro Exam: alert & oriented x 1 with fluent speech, generalized weakness, sitting in wheelchair Skin: skin color, texture, turgor are normal Component Latest Ref Rng 12/11/2023 01/09/2024 02/10/2024 03/30/2024 BUN 6 - 20 mg/dL 21 (H) Creatinine 0.5 - 1.0 mg/dL 0.8 Estimated Glomerular Filtration Rate >=60 mL/min 70 Sodium 135 - 146 mmol/L 141 Potassium 3.5 - 5.1 mmol/L 4.4 4.0 Chloride 98 - 107 mmol/L 107 CO2 22 - 32 mmol/L 25 Anion Gap 7 - 15 mmol/L 9 Glucose 70 - 120 mg/dL 93 Calcium 8.4 - 10.2 mg/dL 10.0 WBC 4.00 - 10.80 K/uL 7.02 RBC 3.85 - 5.15 M/uL 3.85 HGB 12.0 - 15.3 g/dL 10.5 (L) HCT 36.0 - 45.2 % 34.0 (L) MCV 81.5 - 97.5 fL 88.3 MCH 27.0 - 34.0 pg 27.3 MCHC 32.0 - 36.0 g/dL 30.9 RDW 11.5 - 15.5 % 14.3 PLT 140 - 400 K/uL 223 MPV 6.6 - 11.1 fL 9.8 Prothrombin Time 11.6 - 15.2 seconds 20.3 (H) INR 0.8 - 1.2 1.7 (H) Legend: (H) High (L) Low A: Hemiplegia and hemiparesis following cerebral infarction affecting left non- dominant side (HCC) (Primary) - HOME HEALTH REFERRAL OP The patient has a mobility limitation that significantly impairs their ability to participate in mobility-related ADLs. The patient's mobility limitation cannot be sufficiently resolved by the use of a cane or walker. The patient's living quarters provide adequate access between rooms, maneuvering space, and surfaces for the use of a manual wheelchair. The use of a manual wheelchair will improve the patient's ability to participate in mobility related ADLs and the beneficiary will use it on a regular basis. The patient has not expressed an unwillingness to use the manual wheelchair that is provided. The patient has sufficient upper extremity function and other physical and mental capabilities needed to safely self-propel in the manual wheelchair, OR the beneficiary has a caregiver who is available, willing and able to provide assistance with the wheelchair. The beneficiary has a medical condition which requires positioning of the body in ways not feasiblewith an ordinary bed and requires frequency changes in body position and/or patrick an immediate need for a change in body position. The beneficiary has a condition that requires the use of a lift between bed, chair, wheelchair, andcommode. Without the use of the lift, the patient would be bed-confined. History of cerebrovascular accident - Atorvastatin Calcium 40 MG Oral Tablet (Lipitor); Take 1 Tablet by mouth in the morning. - HOME HEALTH REFERRAL OP Senile dementia, uncomplicated (HCC) At baseline Generalized weakness - HOME HEALTH REFERRAL OP History of DVT (deep vein thrombosis) - Warfarin Sodium 3 MG Oral Tablet (Coumadin); Take 1 Tablet by mouth every evening. 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 OR [facility] - PT INR; Future; Expected date: 04/08/2024 - HOME HEALTH REFERRAL OP Moderate episode of recurrent major depressive disorder (HCC) - Mirtazapine 15 MG Oral Tablet (Remeron); Take 0.5 Tablets by mouth at bedtime. - Sertraline HCl 25 MG Oral Tablet (Zoloft); Take 1 Tablet by mouth in the morning. HTN, goal below 150/90 - Lisinopril 5 MG Oral Tablet (Prinivil); Take 1 Tablet by mouth in the morning. SIADH (syndrome of inappropriate ADH production) ([facility]) No current issues Gastroesophageal reflux disease without esophagitis - Famotidine 20 MG Oral Tablet (Pepcid); Take 1 Tablet by mouth in the morning and 1 Tablet before bedtime. - Omeprazole 20 MG Oral Capsule Delayed Release (PriLOSEC); Take 1 Capsule by mouth in the morning. 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 To affected area. Will need follow up with wound clinic as outpatient Dermatitis - Triamcinolone Acetonide 0.1 % External Cream (Aristocort); Apply topically to affected area 2 times a day. To affected area. Skin breakdown - Triamcinolone Acetonide 0.1 % External Cream (Aristocort); Apply topically to affected area 2 times a day. To affected area. Other orders - Potassium Chloride Mimi ER 10 MEQ Oral Tablet Extended Release; Take 2 Tablets by mouth in the morning. P: 1. Discharge to home with 24 hr care provided by family 2. Home Health was consulted for nursing, PT, and OT. 3. Copy of chart sent to PCP 4. Patient to follow up with PCP within 7 days. 5. Domain Architect: [facility] 6. I spent 60 minutes on discharge. documented in this encounter Plan of Treatment Upcoming Encounters Date Type Department Care Team (Late st Contact Info) Description 04/07/2024 10:00 AM EDT Office Visit Family Practice [facility] Aw[facility] Smith [address] [facility] [place] [address] Angie Perez MD [address] [facility] [place] [id number] 04/08/2024 4:40 PM EDT Anticoagulation Centralized [facility] Services, Milli Breen [address] [place] [address] [place] [address] [facility], [address] [place] [address] Scheduled Orders Name Type Priority Associated Diagnoses [...] D LEVEL ONCE IN A LIFETIME-USE SMARTSET# [id number] Completed 05/31/2020, 11/25/2019, 08/06/2019, Additional history exists [...] Gastroesophageal reflux disease without esophagitis Esophageal reflux Spencre's palsy Non-pressure chronic ulcer of buttock, unspecified ulcer stage (HCC) Dermatitis Contact dermatitis and other eczema, due to unspecified cause Skin breakdown Other specified hypertrophic and atrophic condition of skin documented in this encounter Care Teams Aerotriangulation Specialist Relationship Specialty Start Date End Date Dandre Baldwin DO [address] [place] [id number] PCP - General Internal Medicine 03/13/22 documented as of this encounter
--- OUTSIDE RECORDS SUMMARY | 2024-06-21 01:25 | External Medical Summary | Summary of Care ---
Author Name Unknown Organization [facility] Address [address] [place] [address] Phone [phone] Care Team Providers Care Centrifugal Spinner Name Role Phone Dandre Baldwin Primary Care Provider Encounter Details Date Type Department Care Team (Late st Contact Info) Description 03/13/2024 Orders Only Lab Mobile Phlebotomy [facility] [address] [place] [address] Yvette Boyd PA-C [address] [place] [id number] Encounter for deep vein thrombosis (DVT) prophylaxis* [...] mouth in the morning. Active Saline Nasal [place] 0.65 % Nasal Solution ([place]) Administer 1 [place] into nostril as needed for Congestion. 12/12/2023 [...] mRNA, LNP-s, No Pre serve, 2-Dose Series ([employer]) 08/19/2021,12/26/2020,12/05/2020 COVID-19, MRNA-LNP, 23-24, P F, 30 MCG/0.3 mL, 12 YRS AND ABOVE, IM ([employer]) 03/05/2024 Covid-19, Mrna, Lnp-s, Pf, B ivalent, [...] Care Team (Late st Contact Info) Description 03/13/2024 4:40 PM EDT Anticoagulation [facility], Milli Breen [address] [place] [address] [place] [address] [facility] [address] [facility] [place] [address] Pending Results Name Type Priority Associated Diagnoses Date /Time PT INR Lab Routine Encounter for deep vein thrombosis (DVT) prophylaxis 03/13/2024 6:02 AM EDT Scheduled Orders Name Type Priority Associated Diagnoses Orde r Schedule PT INR Lab Routine Encounter for deep vein thrombosis (DVT) prophylaxis Expected: 03/13/2024, Expires: 03/13/2025 Health Maintenance Due Date Last Done Comments Albumin/Creatinine Ratio 1958 DTaP,Tdap,and Td Vaccines (2 - Td or Tdap) 10/15/2021 10/15/2011 COVID-19 Vaccine ( season) 2024 03/05/2024, 07/30/2023, 07/30/2023, Additional history exists DXA Scan 05/02/2024 05/02/2022, 04/07, 12/03/2018, Additional history exists Zoster Vaccines Completed 11/04/2019, 05/08, 10/19/2010 VITAMIN D LEVEL ONCE IN A LIFETIME-USE SMARTSET# [id number] Completed 05/31/2020, 11/25/2019, 08/06/2019, Additional history exists [...] Primary documented in this encounter Care Teams Centrifugal Spinner Relationship Specialty Start Date End Date Dandre Baldwin DO [address] [place] [address] PCP - General Internal Medicine 03/13/22 documented as of this encounter
--- OUTSIDE RECORDS SUMMARY | 2024-06-21 01:25 | External Medical Summary | Summary of Care ---
Author Name Unknown Organization [facility] Address [address] [place] [address] Phone [phone] Care Team Providers Care Treasury Representative Name Role Phone ManuelDandre law Primary Care Provider Reason for Visit * Reason Onset Date Comments [facility]: Screening 04/03/2024 Encounter Details Date Type Department Care Team (Late st Contact Info) Description 04/03/2024 Telephone [facility], [facility] [address] [facility] [place] [id number] [facility], Nurse [facility] [address] [facility] [place] [phone] [facility]: Screening Allergies Active Allergy Reactions Criticality Noted Date [...] mouth in the morning. Active Saline Nasal [place] 0.65 % Nasal Solution ([place]) Administer 1 [place] into nostril as needed for Congestion. 12/12/2023 Active Saccharomyces boulardii 250 MG Oral Packet Take 250 mg by mouth in the morning. 12/12/2023 Active Polyethylene Glycol 3350 17 GM/SCOOP Oral Powder (MiraLax) Take 17 g by mouth in the morning and 17 g before bedtime. Dissolve one heaping tablespoon in 8 ounces of water or juice.. 02/13/2024 Active Famotidine 20 MG Oral Tablet (Pepcid)Indicati ons:History of fracture of right hip Take by mouth 1 Tablet in the morning AND 1 Tablet before bedtime. 180 Tablet 3 03/14/2022 04/03/2024 Discontinue d(Refill) Sertraline HCl 25 MG Oral Tablet (Zoloft) Take 1 Tablet by mouth in the morning. 04/03/2024 Discontinue d(Refill) Omeprazole 20 MG Oral Capsule Delayed Release (PriLOSEC) Take 1 Capsule by mouth in the morning and 1 Capsule before bedtime. 04/03/2024 Discontinue d(Refill) Mirtazapine 15 MG Oral Tablet (Remeron) Take 1 Tablet by mouth at bedtime. 08/13/2023 04/03/2024 Discontinue d(Refill) Warfarin Sodium 1.5 MG OR TABS Take 2 mg by mouth every evening. 04/03/2024 Discontinue d(Refill) Lisinopril 5 MG Oral Tablet (Prinivil) Take 1 Tablet by mouth in the morning. 04/03/2024 Discontinue d(Refill) Atorvastatin Calcium 40 MG Oral Tablet (Lipitor) Take 1 Tablet by mouth in the morning. 04/03/2024 Discontinue d(Refill) Potassium Chloride Mimi ER 10 MEQ Oral Tablet Extended Release Take 2 Tablets by mouth in the morning. 02/13/2024 04/03/2024 Discontinue d(Refill) documented as of this encounter [...] mRNA, LNP-s, No Pre serve, 2-Dose Series ([employer]) 08/19/2021,12/26/2020,12/05/2020 COVID-19, MRNA-LNP, 23-24, P F, 30 [...] Telephone Encounter - Amy Peña LPN - 04/03/2024 2:21 PM EDT Analy Haq was referred as a potential candidate for enrollment for [facility]. Elevated to [facility] leadership A review of this chart was completed and: Analy meets criteria for [facility]. Jump to Initiation Referring care team was notified via : Epic communication Pt discharging from [facility] Thursday 04/05 Sent to [facility] clerical pool to reach out to pt * Telephone Encounter - Amy Peña LPN - 04/03/2024 12:48 PM EDT Analy Haq was referred as a potential candidate for enrollment for [facility]. Referral from Marilyn MCCOY at [facility] Pt is going home after a year. Pt was supposed to be LTC but pt's daughter has decided to take pt home Elevated to [facility] leadership Marilyn requesting a return call with decision [phone] documented in this encounter Plan of Treatment Upcoming Encounters Date Type Department Care Team (Late st Contact Info) Description 04/07/2024 10:00 AM EDT Office Visit Family Practice [facility] [address] [facility] [place] [address] Angie Perez MD [address] [facility] [place] [address] 04/08/2024 4:40 PM EDT Anticoagulation Centralized Clinical Pharmacy Services, Milli Breen [address] [place] [address] [place] [address] [facility], [address] [place] [address] Health Maintenance Due Date Last Done Comments Albumin/Creatinine Ratio 1958 DTaP,Tdap,and Td Vaccines (2 - Td or Tdap) 10/15/2021 10/15/2011 Depression Monitoring 05/18/2022 05/18/2021 COVID-19 Vaccine (2022- season) 2024 03/05/2024, 07/30/2023, 07/30/2023, Additional history exists DXA Scan 05/02/2024 05/02/2022, 04/07, 12/03/2018, Additional history exists Zoster Vaccines Completed 11/04/2019, 05/08, 10/19/2010 VITAMIN D LEVEL ONCE IN A LIFETIME-USE SMARTSET# [id number] Completed 05/31/2020, 11/25/2019, 08/06/2019, Additional history exists [...] filedocumented as of this encounter Care Teams Treasury Representative Relationship Specialty Start Date End Date Dandre Baldwin DO [address] [place] [address] PCP - General Internal Medicine 03/13/22 documented as of this encounter
--- OUTSIDE RECORDS SUMMARY | 2024-06-21 01:25 | External Medical Summary | Summary of Care ---
Author Name Unknown Organization [facility] Address [address] [place] [address] Phone [phone] Care Team Providers Care Seismograph Observer Name Role Phone ManuelDandre law Primary Care Provider [phone] Reason for Visit * Reason Onset Date Comments [facility]: Screening 04/03/2024 Encounter Details Date Type Department Care Team (Late st Contact Info) Description 04/03/2024 Telephone [facility], [facility] [address] [facility] [place] [id number] [facility], Nurse [facility] [address] [facility] [place] [address] [facility]: Screening Allergies Active Allergy [...] mouth in the morning. Active Saline Nasal [place] 0.65 % Nasal Solution ([place]) Administer 1 [place] into nostril as needed for Congestion. 12/12/2023 [...] mRNA, LNP-s, No Pre serve, 2-Dose Series (Visible Measures) 08/19/2021,12/26/2020,12/05/2020 COVID-19, MRNA-LNP, 23-24, P F, 30 MCG/0.3 mL, 12 YRS AND ABOVE, IM (N-Trig-Comirnat) 03/05/2024 Covid-19, Mrna, Lnp-s, Pf, B ivalent, 30 Mcg, IM, 12 yrs and above (Visible Measures) 07/30/2023 H1N1 2009 Influenza, IM 08/10/2009 Pneumococcal [...] at Home. Referral from Marilyn MCCOY at [facility] Pt is going home after a year. Pt was supposed to be LTC but pt's daughter has decided to take pt home Elevated to [facility] leadership Marilyn requesting a return call with decision [phone] documented in this encounter Plan of Treatment Upcoming Encounters Date Type Department Care Team (Late st Contact Info) Description 04/07/2024 10:00 AM EDT Office Visit Family Practice [place] [facility] [address] [place] [address] Angie Perez MD [address] [facility] [place] [address] 04/08/2024 4:40 PM EDT Anticoagulation Centralized Clinical Pharmacy Services, Milli Breen [address] [place] [address] [place] [address] [facility], [facility] [address] [place] [address] Health Maintenance Due Date Last Done Comments Albumin/Creatinine Ratio 1958 DTaP,Tdap,and Td Vaccines (2 - Td or Tdap) 10/15/2021 10/15/2011 Depression Monitoring 05/18/2022 05/18/2021 COVID-19 Vaccine (2022- season) 2024 03/05/2024, 07/30/2023, 07/30/2023, Additional history exists DXA Scan 05/02/2024 05/02/2022, 04/07, 12/03/2018, Additional history exists Zoster Vaccines Completed 11/04/2019, 05/08, 10/19/2010 VITAMIN D LEVEL ONCE IN A LIFETIME-USE SMARTSET# [id number] Completed 05/31/2020, 11/25/2019, 08/06/2019, Additional history exists [...] filedocumented as of this encounter Care Teams Seismograph Observer Relationship Specialty Start Date End Date Dandre Baldwin DO [address] [facility] [place] [address] PCP - General Internal Medicine 03/13/22 documented as of this encounter
--- OUTSIDE RECORDS SUMMARY | 2024-06-21 01:25 | External Medical Summary ---
Author Name Unknown Address Unknown Organization K0G:[facility]ORY [facility] [address] [place] [address] Laboratory Report Ordering Provider Test Date Status SOLE HENDRIX 03/19/2024 06:00:00 Final Warfarin Therapy
INR: 2 .0-3.0 conventional anticoagulation
INR: 2.5- 3.5 high intensity anticoagulation Observation Date Value Abnormality Reference (Units ) Status PT 03/19/2024 06:00:00 21.7 Above high normal 11 .6-15.2 (seconds) Final INR 03/19/2024 06:00:00 1.9 Above high normal 0. 8-1.2 Final Performing Location LABORATORY [facility] [place] [address] [place] [address]
--- OUTSIDE RECORDS SUMMARY | 2024-06-21 01:25 | External Medical Summary | Summary of Care ---
Author Name Unknown Organization [facility] Address [address] [place] [address] Phone [phone] Care Team Providers Care Printing Plate Clerk Name Role Phone Dandre Baldwin Primary Care Provider [phone] Reason for Visit * Reason Onset Date Comments Fdc Visit 02/26/2024 Encounter Details Date Type Department Care Team (Late st Contact Info) Description 02/26/2024 4:05 PM EDT Fdc Visit [facility], [address] [place] [address] Yvette Boyd PA-C [address] [place] [address] [place] [address] Skin breakdown* Allergies Active Allergy Reactions Criticality Noted Date [...] mouth in the morning. Active Saline Nasal [place] 0.65 % Nasal Solution ([place]) Administer 1 [place] into nostril as needed for Congestion. 12/12/2023 [...] mRNA, LNP-s, No Pre serve, 2-Dose Series ([employer]) 08/19/2021,12/26/2020,12/05/2020 Covid-19, Mrna, Lnp-s, Pf, B ivalent, 30 Mcg, IM, 12 yrs and above ([employer]) 07/30/2023 H1N1 2009 Influenza, IM 08/10/2009 Pneumococcal [...] PM EDT Anticoagulation Pharmacy Call Center [address] [facility] [place] [address] [facility] [address] [facility] [place] [address] Health Maintenance Due Date Last Done Comments Albumin/Creatinine Ratio 1958 DTaP,Tdap,and Td Vaccines (2 - Td or Tdap) 10/15/2021 10/15/2011 COVID-19 Vaccine (2022- season) 2023 07/30/2023, 07/30/2023, 07/30/2023, Additional history exists DXA Scan 05/02/2024 05/02/2022, 04/07, 12/03/2018, Additional history exists Zoster Vaccines Completed 11/04/2019, 10/08, 05/27/2019, Additional history exists VITAMIN D LEVEL ONCE IN A LIFETIME-USE SMARTSET# [id number] Completed 05/31/2020, 11/25/2019, 08/06/2019, Additional history exists [...] as of this encounter Visit Diagnoses Diagnosis Skin breakdown- Primary Other specified hypertrophic and atrophic condition of skin documented in this encounter Care Teams Printing Plate Clerk Relationship Specialty Start Date End Date Dandre Baldwin DO [address] [place] [address] [place] [id number] PCP - General Internal Medicine 03/13/22 documented as of this encounter
--- OUTSIDE RECORDS SUMMARY | 2024-06-21 01:26 | External Medical Summary | Summary of Care ---
Author Name Unknown Organization [facility] Address [address] [place] [address] Phone [phone] Care Team Providers Care Heating Equipment Repairer Name Role Phone Dandre Baldwin Primary Care Provider [phone] Encounter Details Date Type Department Care Team (Late st Contact Info) Description 02/12/2024 Orders Only Lab Mobile Phlebot[facility] [address] [place] [address] Yvette Boyd PA-C [address] [place] [address] Encounter for deep vein thrombosis (DVT) prophylaxis* Allergies Active Allergy Reactions Criticality Noted Date Comments Bacitracin Itching 02/20/2018 Ezetimibe 09/19/2008 Shellfish Allergy 03/25/2023 Sulfa Antibiotics 12/24/2017 Tramadol Itching 12/24/2017 documented as of this encounter (statuses as of 02/12/2024) Medications Medication Sig Dispensed Refills Start Date [...] in the morning. 0 Active Saline Nasal [place] 0.65 % Nasal Solution ([place]) Administer 1 [place] into nostril as needed for Congestion. 0 12/12/2023 Active Saccharomyces boulardii 250 MG Oral Packet Take 250 mg by mouth in the morning. 0 12/12/2023 Active documented as of this encounter (statuses as of 02/12/2024) Active Problems Problem Noted Date Diagnosed Date [...] as of this encounter (statuses as of 02/12/2024) Resolved Problems Problem Noted Date Diagnosed Date [...] as of this encounter (statuses as of 02/12/2024) Immunizations Name Administration Dates Next Due COVID-19 mRNA, LNP-s, No Pre serve, 2-Dose Series ([employer]) 08/19/2021,12/26/2020,12/05/2020 Covid-19, Mrna, Lnp-s, Pf, B ivalent, 30 Mcg, IM, 12 yrs and above ([employer]) 07/30/2023 H1N1 2009 Influenza, IM 08/10/2009 Pneumococcal [...] Care Team (Late st Contact Info) Description 02/12/2024 4:40 PM EDT Anticoagulation Pharmacy Call Center [phone] [facility] [place] [address] [facility], [facility] [address] [facility] [place] [address] Pending Results Name Type Priority Associated Diagnoses Date /Time PT INR Lab Routine Encounter for deep vein thrombosis (DVT) prophylaxis 02/12/2024 5:35 AM EDT Scheduled Orders Name Type Priority Associated Diagnoses Orde r Schedule PT INR Lab Routine Encounter for deep vein thrombosis (DVT) prophylaxis Expected: 02/12/2024, Expires: 02/11/2025 Health Maintenance Due Date Last Done Comments Albumin/Creatinine Ratio 1958 DTaP,Tdap,and Td Vaccines (2 - Td or Tdap) 10/15/2021 10/15/2011 COVID-19 Vaccine ( season) 2023 07/30/2023, 07/30/2023, 07/30/2023, Additional history exists DXA Scan 05/02/2024 05/02/2022, 04/07, 12/03/2018, Additional history exists Zoster Vaccines Completed 11/04/2019, 10/08, 05/27/2019, Additional history exists VITAMIN D LEVEL ONCE IN A LIFETIME-USE SMARTSET# [id number] Completed 05/31/2020, 11/25/2019, 08/06/2019, Additional history exists [...] Primary documented in this encounter Care Teams Heating Equipment Repairer Relationship Specialty Start Date End Date Dandre Baldwin DO [address] [place] [address] PCP - General Internal Medicine 03/13/22 documented as of this encounter
--- OUTSIDE RECORDS SUMMARY | 2024-06-21 01:26 | External Medical Summary | Summary of Care ---
Author Name Unknown Organization [facility] Address [address] [place] [address] Phone [phone] Care Team Providers Care Gastrointestinal Technician Name Role Phone Dandre Baldwin Primary Care Provider Encounter Details Date Type Department Care Team (Late st Contact Info) Description 02/05/2024 Orders Only Lab Mobile Phlebotomy [facility] [address] [place] [address] Yvette Boyd PA-C [address] [place] [address] Encounter for deep vein thrombosis (DVT) prophylaxis* Allergies Active Allergy Reactions Criticality Noted Date Comments Bacitracin Itching 02/20/2018 Ezetimibe 09/19/2008 Shellfish Allergy 03/25/2023 Sulfa Antibiotics 12/24/2017 Tramadol Itching 12/24/2017 documented as of this encounter (statuses as of 02/05/2024) Medications Medication Sig Dispensed Refills Start Date [...] in the morning. 0 Active Saline Nasal [place] 0.65 % Nasal Solution ([place]) Administer 1 [place] into nostril as needed for Congestion. 0 12/12/2023 Active Saccharomyces boulardii 250 MG Oral Packet Take 250 mg by mouth in the morning. 0 12/12/2023 Active documented as of this encounter (statuses as of 02/05/2024) Active Problems Problem Noted Date Diagnosed Date [...] as of this encounter (statuses as of 02/05/2024) Resolved Problems Problem Noted Date Diagnosed Date [...] as of this encounter (statuses as of 02/05/2024) Immunizations Name Administration Dates Next Due COVID-19 mRNA, LNP-s, No Pre serve, 2-Dose Series ([employer]) 08/19/2021,12/26/2020,12/05/2020 Covid-19, Mrna, Lnp-s, Pf, B ivalent, 30 Mcg, IM, 12 yrs and above ([employer]) 07/30/2023 H1N1 2009 Influenza, IM 08/10/2009 Pneumococcal [...] Care Team (Late st Contact Info) Description 02/05/2024 4:40 PM EDT Anticoagulation Pharmacy Call Center [address] [place] [address] [facility] [address] [facility] [place] [address] Scheduled Orders Name Type Priority Associated Diagnoses Orde r Schedule PT INR Lab Routine Encounter for deep vein thrombosis (DVT) prophylaxis Expected: 02/05/2024, Expires: 02/04/2025 Health Maintenance Due Date Last Done Comments Albumin/Creatinine Ratio 1958 DTaP,Tdap,and Td Vaccines (2 - Td or Tdap) 10/15/2021 10/15/2011 COVID-19 Vaccine (2022- season) 2023 07/30/2023, 07/30/2023, 07/30/2023, Additional history exists DXA Scan 05/02/2024 05/02/2022, 04/07, 12/03/2018, Additional history exists Zoster Vaccines Completed 11/04/2019, 10/08, 05/27/2019, Additional history exists VITAMIN D LEVEL ONCE IN A LIFETIME-USE SMARTSET# [id number] Completed 05/31/2020, 11/25/2019, 08/06/2019, Additional history exists [...] Primary documented in this encounter Care Teams Gastrointestinal Technician Relationship Specialty Start Date End Date Dandre Baldwin DO [address] [place] [address] PCP - General Internal Medicine 03/13/22 documented as of this encounter
--- OUTSIDE RECORDS SUMMARY | 2024-06-21 01:26 | External Medical Summary | Summary of Care ---
Author Name Unknown Organization [facility] Address [address] [place] [address] Phone [phone] Care Team Providers Care Stock Wetter Name Role Phone Manuelthanh Dandre Primary Care Provider [phone] Reason for Visit * Reason Comments Dosage Adjustment Via Phone (anticoag Cl inic) Encounter Details Date Type Department Care Team (Latest Contact Info) Description 02/12/2024 4:40 PM EDT Anticoagulation Pharmacy Call Center [phone] Public [place] [address] [facility] [address] [facility] [place] [address] Anticoagulation management encounter* Allergies Active Allergy Reactions [...] in the morning. 0 Active Saline Nasal [place] 0.65 % Nasal Solution ([place]) Administer 1 [place] into nostril as needed for Congestion. 0 [...] mRNA, LNP-s, No Pre serve, 2-Dose Series ([employer]) 08/19/2021,12/26/2020,12/05/2020 Covid-19, Mrna, Lnp-s, Pf, B ivalent, 30 Mcg, IM, 12 yrs and above ([employer]) 07/30/2023 H1N1 2009 Influenza, IM 08/10/2009 Pneumococcal [...] Progress Notes * Julissa Jean RPh - 02/12/2024 11:24 AM EDT Images from the original note were not included. Medication Therapy Disease Management - Anticoagulation Patient: Analy Haq | : 1940 Care Home/SNF Patient Anticoagulation Encounter Patient is a resident at: [facility] [place] -- CC to Yvette Boyd PA-C and Fax sent to number listed above detailing plan of care below. Please notify clinic with any unusual brusing or bleeding, N/V/D, medication or diet changes or anymissed or extra doses of Coumadin. Subjective Patient-Reported Symptoms: Objective Current Warfarin Dose As of 02/12/2024 Warfarin maintenance plan: 2 mg (1 mg x 2) every day INR Result As of 02/12/2024 INR goal: 2.0-3.0 INR used for dosin.8 (02/12/2024) Assessment & Plan Warfarin Plan As of 02/12/2024 Full warfarin instructions: 3 mg every Wed; 2 mg all other days Next INR check: 02/26/2024 Repeat PT/INR in 2 week(s) to see dose increase Weekly dose: increased Additional Dosing Information: Julissa Jean RPh Clinical Pharmacist 02/12/2024, 11:24 AM documented in this encounter Plan of [...] D LEVEL ONCE IN A LIFETIME-USE SMARTSET# [id number] Completed 05/31/2020, 11/25/2019, 08/06/2019, Additional history exists [...] monitoring documented in this encounter Care Teams Stock Wetter Relationship Specialty Start Date End Date Dandre Baldwin DO [address] [place] [address] PCP - General Internal Medicine 03/13/22 documented as of this encounter"
--- OUTSIDE RECORDS SUMMARY | 2024-06-21 01:26 | External Medical Summary ---
Author Name Unknown Address Unknown Organization K[facility]:LABORATORY [facility] [place]HAEL [address] [place] [address] Laboratory Report Ordering Provider Test Date Status SOLE HENDRIX 02/12/2024 05:35:00 Final Warfarin Therapy
INR: 2 .0-3.0 conventional anticoagulation
INR: 2.5- 3.5 high intensity anticoagulation Observation Date Value Abnormality Reference (Units ) Status PT 02/12/2024 05:35:00 21.4 Above high normal 11 .6-15.2 (seconds) Final INR 02/12/2024 05:35:00 1.8 Above high normal 0. 8-1.2 Final Performing Location LABORATORY [facility] [place] [address] [place] [address]
--- OUTSIDE RECORDS SUMMARY | 2024-06-21 01:26 | External Medical Summary ---
Author Name Unknown Address Unknown Organization K0[facility]:LABORATORY [facility] MICHAEL [address] [place] [address] Laboratory Report Ordering Provider Test Date Status SOLE HENDRIX 02/26/2024 05:49:00 Final Warfarin Therapy
INR: 2 .0-3.0 conventional anticoagulation
INR: 2.5- 3.5 high intensity anticoagulation Observation Date Value Abnormality Reference (Units ) Status PT 02/26/2024 05:49:00 15.8 Above high normal 11 .6-15.2 (seconds) Final INR 02/26/2024 05:49:00 1.3 Above high normal 0. 8-1.2 Final Performing Location LABORATORY [facility] [place]EL [address] [place] [address]
--- OUTSIDE RECORDS SUMMARY | 2024-06-21 01:26 | External Medical Summary | Summary of Care ---
Author Name Unknown Organization [facility] Address [address] [place] [address] Phone [phone] Care Team Providers Care Wood Flour Miller Name Role Phone Dandre Baldwin Primary Care Provider Encounter Details Date Type Department Care Team (Late st Contact Info) Description 02/10/2024 Orders Only Lab Mobile Phlebotomy [facility] [address] [place] [address] Yvette Boyd PA-C [address] [place] [address] Anemia* Allergies Active Allergy Reactions Criticality Noted Date Comments Bacitracin Itching 02/20/2018 Ezetimibe 09/19/2008 Shellfish Allergy 03/25/2023 Sulfa Antibiotics 12/24/2017 Tramadol Itching 12/24/2017 documented as of this encounter (statuses as of 02/10/2024) Medications Medication Sig Dispensed Refills Start Date [...] in the morning. 0 Active Saline Nasal [place] 0.65 % Nasal Solution ([place]) Administer 1 [place] into nostril as needed for Congestion. 0 12/12/2023 Active Saccharomyces boulardii 250 MG Oral Packet Take 250 mg by mouth in the morning. 0 12/12/2023 Active documented as of this encounter (statuses as of 02/10/2024) Active Problems Problem Noted Date Diagnosed Date [...] as of this encounter (statuses as of 02/10/2024) Resolved Problems Problem Noted Date Diagnosed Date [...] as of this encounter (statuses as of 02/10/2024) Immunizations Name Administration Dates Next Due COVID-19 mRNA, LNP-s, No Pre serve, 2-Dose Series ([employer]) 08/19/2021,12/26/2020,12/05/2020 Covid-19, Mrna, Lnp-s, Pf, B ivalent, 30 Mcg, IM, 12 yrs and above ([employer]) 07/30/2023 H1N1 2009 Influenza, IM 08/10/2009 Pneumococcal [...] EDT Anticoagulation Pharmacy Call Center WB [address] Public [place] [address] [facility], [facility] [address] 60 [facility] [place] [address] Scheduled Orders Name Type Priority Associated Diagnoses Orde r Schedule CBC Lab Routine Anemia Expected: 02/10/2024, Expires: Health Maintenance Due Date Last Done Comments Albumin/Creatinine Ratio 1958 DTaP,Tdap,and Td Vaccines (2 - Td or Tdap) 10/15/2021 10/15/2011 COVID-19 Vaccine (2022- season) 2023 07/30/2023, 07/30/2023, 07/30/2023, Additional history exists DXA Scan 05/02/2024 05/02/2022, 04/07, 12/03/2018, Additional history exists Zoster Vaccines Completed 11/04/2019, 10/08, 05/27/2019, Additional history exists VITAMIN D LEVEL ONCE IN A LIFETIME-USE SMARTSET# [id number] Completed 05/31/2020, 11/25/2019, 08/06/2019, Additional history exists [...] as of this encounter Visit Diagnoses Diagnosis Anemia- Primary Anemia, unspecified documented in this encounter Care Teams Wood Flour Miller Relationship Specialty Start Date End Date Dandre Baldwin DO [address] [place] [address] PCP - General Internal Medicine 03/13/22 documented as of this encounter
--- OUTSIDE RECORDS SUMMARY | 2024-06-21 01:26 | External Medical Summary | Summary of Care ---
Author Name Unknown Organization [facility] Address [address] [place] [address] Phone [phone] Care Team Providers Care Commercial Counsel Name Role Phone Dandre Baldwin Primary Care Provider Reason for Visit * Reason Onset Date Comments Intermediate Visit 02/13/2024 Regulatory Encounter Details Date Type Department Care Team (Latest Contact Info) Description 02/13/2024 9:00 AM EDT Intermediate Visit [address] [place] [address] Ulices Miller MD [address] [place] [address] [place] [address] Hemiplegia and hemiparesis following cerebral infarction affecting left non-dominant side (HCC)*; Acute deep vein thrombosis (DVT) of femoral vein of right lower extremity (HCC); Senile dementia, uncomplicated (HCC); SIADH (syndrome of inappropriate ADH production) (HCC); Moderate episode of recurrent major depressive disorder ([facility]); HTN, goal below 150/90; Spinal stenosis of lumbar region without neurogenic claudication; Spencer's palsy; Slow transit constipation Allergies Active Allergy Reactions Criticality Noted Date Comments Bacitracin Itching 02/20/2018 Ezetimibe 09/19/2008 Shellfish Allergy 03/25/2023 Sulfa Antibiotics 12/24/2017 Tramadol Itching 12/24/2017 documented as of this encounter (statuses as of 02/13/2024) Medications Medication Sig Dispensed Refills Start Date [...] in the morning. 0 Active Saline Nasal [place] 0.65 % Nasal Solution ([place]) Administer 1 [place] into nostril as needed for Congestion. 0 12/12/2023 Active Saccharomyces boulardii 250 MG Oral Packet Take 250 mg by mouth in the morning. 0 12/12/2023 Active Potassium Chloride Mimi ER 10 MEQ Oral Tablet Extended Release Take 2 Tablets by mouth in the morning. 0 02/13/2024 Active Polyethylene Glycol 3350 17 GM/SCOOP Oral Powder (MiraLax) Take 17 g by mouth in the morning and 17 g before bedtime. Dissolve one heaping tablespoon in 8 ounces of water or juice.. 0 02/13/2024 Active Polyethylene Glycol 3350 17 GM/SCOOP Oral Powder (MiraLax)Indicat ions:Other constipation,His tory of fecal impaction Take by mouth 17 g in the morning. Dissolve one heaping tablespoon in 8 ounces of water or juice.. 1734 g 3 03/14/2022 4 Discontinued Potassium Chloride Mimi ER 10 MEQ Oral Tablet Extended Release Take 1 Tablet by mouth in the morning. 0 4 Discontinued documented as of this encounter (statuses as of 02/13/2024) Active Problems Problem Noted Date Diagnosed Date [...] as of this encounter (statuses as of 02/13/2024) Resolved Problems Problem Noted Date Diagnosed Date [...] as of this encounter (statuses as of 02/13/2024) Immunizations Name Administration Dates Next Due COVID-19 [...] Progress Notes * Ulices Miller MD - 02/13/2024 11:49 AM EDT Regulatory Visit TRANSITION EVENT: Type: Regulatory visit Date: February 12 Code Status: No Code Name: Analy Haq Date of : 1940 This note pertains to care provided at [facility] [place]. Please see facility medical record for original note. This note is not to be edited or addended in [employer]. 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, uncomplicated ([facility]) F03.90 Moderate episode of recurrent major depressive disorder ([facility]) F33.1 Closed avulsion fracture of greater trochanter of femur with routine healing, right S72.111D S/p left hip fracture Z87.81 S/P hip hemiarthroplasty Z96.649 Slow transit constipation K59.01 S/P right hip fracture Z87.81 SIADH (syndrome of inappropriate ADH production) ([facility]) E22.2 Acute deep vein thrombosis (DVT) of femoral vein of right lower extremity ([facility]) I82.411 History of cerebrovascular accident Z86.73 Seasonal allergic rhinitis J30.2 Hemiplegia and hemiparesis following cerebral infarction affecting left non- dominant side ([facility]) I69.354 Past Medical History: Diagnosis Date Breast cancer ([facility]) 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 Is not having pain issues. Is not having behavioral problems. Results for orders placed or performed in visit on 02/12/24 PT INR Result Value Ref Range Prothrombin Time 21.4 (H) 11.6 - 15.2 seconds INR 1.8 (H) 0.8 - 1.2 CBC Results: Results for orders placed or performed in visit on 02/10/24 CBC Result Value Ref Range WBC 7.02 4.00 - 10.80 K/uL RBC 3.85 3.85 - 5.15 M/uL HGB 10.5 (L) 12.0 - 15.3 g/dL HCT 34.0 (L) 36.0 - 45.2 % MCV 88.3 81.5 - 97.5 fL MCH 27.3 27.0 - 34.0 pg MCHC 30.9 32.0 - 36.0 g/dL RDW 14.3 11.5 - 15.5 % PLT 223 140 - 400 K/uL MPV 9.8 6.6 - 11.1 fL Basic Panel Results: [...] mg/dL Calcium 10.0 8.4 - 10.2 mg/dL ROS: Unable to obtain secondary to dementia. She denies any complaints. When asked about her moods, she states "I don't know, you'll have to ask my mother about that." O: I reviewed the most recent facilities vitals. General: alert, no distress, well nourished, and well developed Head: Normocephalic, No masses, lesions, tenderness or abnormalities Neuro: alert, pleasant, cooperative, follows simple commands. +left hemiparesis and chronic left facial droop Eye Exam: PERRLA, extraocular movements intact, conjunctiva are pink and non- injected, sclera clear Ears: External ears normal Nose: no mucosal erythema, no mucosal edema, no purulent discharge Oropharynx: no exudate, no erythema, lips, buccal mucosa, and tongue normal, and mucous membranes are moist Heart: regular rate & rhythm, no murmur, and no gallops Lungs: chest symmetric with normal AP diameter, no chest deformities noted, no chest wall tenderness, lungs clear to auscultation Abdomen: abdomen soft, non-tender, normal bowel sounds, and no masses or organomegaly Extremities: no edema, no clubbing, no cyanosis A: Hemiplegia and hemiparesis following cerebral infarction affecting left non- dominant side (HCC) (Primary)--stable. Requires LTC. Acute deep vein thrombosis (DVT) of femoral vein of right lower extremity (HCC)--continue Coumadin. Senile dementia, uncomplicated ([facility])--most recent BIMS 04/20. Continue LTC. SIADH (syndrome of inappropriate ADH production) ([facility])--last sodium normal. Moderate episode of recurrent major depressive disorder ([facility])--continue sertraline 25 mg daily and mirtazapine 7.5 mg daily. HTN, goal below 150/90--continue lisinopril 5 mg daily. Spinal stenosis of lumbar region without neurogenic claudication--stable. Continue acetaminophen asneeded. Spencer's palsy--terminal block assembler and stable Slow transit constipation--continue Miralax twice daily. P: Medications reviewed. Please refer to MAR in the facility's medical record for the most up-to-date medication list. Continue present medication(s): Reviewed half-way record for: vital signs, weight, bowel, and bladder function, and ADLs. Labs reviewed Continue current treatment plan as ordered Continue to follow up as needed and as scheduled [facility] Given: n/a Electronically signed by: Ulices Miller MD I spent a total of 30 minutes coordinating, documenting, and providing care for this patient excluding time spent in the performance of separately billed services or time spent by another provider/QHP. documented in this encounter Plan of Treatment Upcoming Encounters Date Type Department Care Team (Late st Contact Info) Description 02/26/2024 4:40 PM EDT Anticoagulation Pharmacy Call Center [address] [facility] [place] [address] [facility] [address] [facility] [place] [address] Health Maintenance Due Date Last Done Comments Albumin/Creatinine Ratio 1958 DTaP,Tdap,and Td Vaccines (2 - Td or Tdap) 10/15/2021 10/15/2011 COVID-19 Vaccine ( season) 2023 07/30/2023, 07/30/2023, 07/30/2023, Additional history exists DXA Scan 05/02/2024 05/02/2022, 04/07, 12/03/2018, Additional history exists Zoster Vaccines Completed 11/04/2019, 10/08, 05/27/2019, Additional history exists VITAMIN D LEVEL ONCE IN A LIFETIME-USE SMARTSET# [id number] Completed 05/31/2020, 11/25/2019, 08/06/2019, Additional history exists [...] affecting left non- dominant side (HCC)- Primary Acute deep vein thrombosis (DVT) of femoral vein of right lower extremity (HCC) Senile dementia, uncomplicated (HCC) Senile dementia, uncomplicated SIADH (syndrome of inappropriate ADH production) (HCC) 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
--- OUTSIDE RECORDS SUMMARY | 2024-06-21 01:26 | External Medical Summary ---
Author Name Unknown Address Unknown Organization [id number]ATORY [facility] [address] [place] [address] Laboratory Report Ordering Provider Test Date Status SOLE HENDRIX 02/10/2024 05:45:00 Final Observation Date Value Abnormality Reference (Units ) Status WBC, Total 02/10/2024 05:45:00 7.02 4.00-10.8 0 (K/uL) Final RBC 02/10/2024 05:45:00 3.85 3.85-5.15 (M/uL) Final Hemoglobin 02/10/2024 05:45:00 10.5 Below low normal 12 .0-15.3 (g/dL) Final HCT 02/10/2024 05:45:00 34.0 Below low normal 36. 0-45.2 (%) Final MCV 02/10/2024 05:45:00 88.3 81.5-97.5 (fL) Final MCH 02/10/2024 05:45:00 27.3 27.0-34.0 (pg) Final MCHC 02/10/2024 05:45:00 30.9 32.0-36.0 (g/dL) Final RDW 02/10/2024 05:45:00 14.3 11.5-15.5 (%) Final Platelets 02/10/2024 05:45:00 223 140-400 (K /uL) Final MPV 02/10/2024 05:45:00 9.8 6.6-11.1 ( fL) Final Performing Location [facility]AT[facility] [address] [place] [address]
--- OUTSIDE RECORDS SUMMARY | 2024-06-21 01:26 | External Medical Summary | Summary of Care ---
Author Name Unknown Organization [facility] Address [address] [place] [address] Phone [phone] Care Team Providers Care Director Food And Beverage Name Role Phone Manuelthanh Dandre Primary Care Provider Reason for Visit * Reason Comments Dosage Adjustment Via Phone (anticoag Cl inic) Encounter Details Date Type Department Care Team (Latest Contact Info) Description 02/05/2024 4:40 PM EDT Anticoagulation Pharmacy Call Center [address] [place] [address] [facility] [address] [facility] [place] [address] Anticoagulation management encounter* Allergies Active Allergy Reactions [...] in the morning. 0 Active Saline Nasal [place] 0.65 % Nasal Solution ([facility]) Administer 1 [place] into nostril as needed for Congestion. 0 [...] mRNA, LNP-s, No Pre serve, 2-Dose Series ([employer]) 08/19/2021,12/26/2020,12/05/2020 Covid-19, Mrna, Lnp-s, Pf, B ivalent, 30 Mcg, IM, 12 yrs and above ([employer]) 07/30/2023 H1N1 2009 Influenza, IM 08/10/2009 Pneumococcal [...] Progress Notes * Julissa Jean RPh - 02/05/2024 11:25 AM EDT Images from the original note were not included. Medication Therapy Disease Management - Anticoagulation Patient: Analy Haq | : 1940 Halfway/SNF Patient Anticoagulation Encounter Patient is a resident at: [facility] [place] -- CC to Yvette Boyd PA-C and Fax sent to number listed above detailing plan of care below. Please notify clinic with any unusual brusing or bleeding, N/V/D, medication or diet changes or anymissed or extra doses of Coumadin. Subjective Patient-Reported Symptoms: Objective Current Warfarin Dose As of 02/05/2024 Warfarin maintenance plan: 2 mg (1 mg x 2) every day INR Result As of 02/05/2024 INR goal: 2.0-3.0 INR used for dosin.7 (02/05/2024) Assessment & Plan Warfarin Plan As of 02/05/2024 Full warfarin instructions: 02/04: 4 mg; Otherwise 2 mg every day Next INR check: 02/12/2024 Repeat PT/INR in 1 week(s) Weekly dose: not changed Additional Dosing Information: Julissa Jean RPh Clinical Pharmacist 02/05/2024, 11:32 AM documented in this encounter Plan of [...] D LEVEL ONCE IN A LIFETIME-USE SMARTSET# [id number] Completed 05/31/2020, 11/25/2019, 08/06/2019, Additional history exists [...] monitoring documented in this encounter Care Teams Director Food And Beverage Relationship Specialty Start Date End Date Dandre Baldwin DO [address] [place] [id number] PCP - General Internal Medicine 03/13/22 documented as of this encounter"
--- OUTSIDE RECORDS SUMMARY | 2024-06-21 01:27 | External Medical Summary ---
Author Name Unknown Address Unknown Organization [facility] [address] [place] [address] Laboratory Report Ordering Provider Test Date Status SOLE HENDRIX 01/29/2024 05:35:00 Final Warfarin Therapy
INR: 2 .0-3.0 conventional anticoagulation
INR: 2.5- 3.5 high intensity anticoagulation Observation Date Value Abnormality Reference (Units ) Status PT 01/29/2024 05:35:00 28.5 Above high normal 11 .6-15.2 (seconds) Final INR 01/29/2024 05:35:00 2.6 Above high normal 0. 8-1.2 Final Performing Location LABORATORY [facility] [place] [address] [place] [address]
--- OUTSIDE RECORDS SUMMARY | 2024-06-21 01:27 | External Medical Summary | Summary of Care ---
Author Name Unknown Organization [facility] Address [address] [place] [address] Phone [phone] Care Team Providers Care Surface Mount Technology Operator Name Role Phone Dandre Baldwin Primary Care Provider [phone] Encounter Details Date Type Department Care Team (Late st Contact Info) Description 01/29/2024 Orders Only Lab Mobile Phlebotomy [facility] [address] [place] [address] Yvette Boyd PA-C [address] [place] [address] Encounter for deep vein thrombosis (DVT) prophylaxis* Allergies Active Allergy Reactions Criticality Noted Date Comments Bacitracin Itching 02/20/2018 Ezetimibe 09/19/2008 Shellfish Allergy 03/25/2023 Sulfa Antibiotics 12/24/2017 Tramadol Itching 12/24/2017 documented as of this encounter (statuses as of 01/29/2024) Medications Medication Sig Dispensed Refills Start Date [...] in the morning. 0 Active Saline Nasal [place] 0.65 % Nasal Solution ([place]) Administer 1 [place] into nostril as needed for Congestion. 0 12/12/2023 Active Saccharomyces boulardii 250 MG Oral Packet Take 250 mg by mouth in the morning. 0 12/12/2023 Active documented as of this encounter (statuses as of 01/29/2024) Active Problems Problem Noted Date Diagnosed Date [...] as of this encounter (statuses as of 01/29/2024) Resolved Problems Problem Noted Date Diagnosed Date [...] as of this encounter (statuses as of 01/29/2024) Immunizations Name Administration Dates Next Due COVID-19 mRNA, LNP-s, No Pre serve, 2-Dose Series ([employer]) 08/19/2021,12/26/2020,12/05/2020 Covid-19, Mrna, Lnp-s, Pf, B ivalent, 30 Mcg, IM, 12 yrs and above ([employer]) 07/30/2023 H1N1 2009 Influenza, IM 08/10/2009 Pneumococcal [...] Care Team (Late st Contact Info) Description 01/29/2024 4:40 PM EDT Anticoagulation Pharmacy Call Center [address] [facility] [place] [address] [facility], [facility] 58 60 [facility] [place] [address] Scheduled Orders Name Type Priority Associated Diagnoses Orde r Schedule PT INR Lab Routine Encounter for deep vein thrombosis (DVT) prophylaxis Expected: 01/29/2024, Expires: 01/28/2025 Health Maintenance Due Date Last Done Comments Albumin/Creatinine Ratio 1958 DTaP,Tdap,and Td Vaccines (2 - Td or Tdap) 10/15/2021 10/15/2011 COVID-19 Vaccine (2022- season) 2023 07/30/2023, 07/30/2023, 07/30/2023, Additional history exists DXA Scan 05/02/2024 05/02/2022, 04/07, 12/03/2018, Additional history exists Zoster Vaccines Completed 11/04/2019, 10/08, 05/27/2019, Additional history exists VITAMIN D LEVEL ONCE IN A LIFETIME-USE SMARTSET# [id number] Completed 05/31/2020, 11/25/2019, 08/06/2019, Additional history exists [...] Primary documented in this encounter Care Teams Surface Mount Technology Operator Relationship Specialty Start Date End Date Dandre Baldwin DO [address] [place] [address] PCP - General Internal Medicine 03/13/22 documented as of this encounter
--- OUTSIDE RECORDS SUMMARY | 2024-06-21 01:27 | External Medical Summary ---
Author Name Unknown Address Unknown Organization [facility] [address] [place] [address] Laboratory Report Ordering Provider Test Date Status SOLE HENDRIX 01/22/2024 05:40:00 Final Warfarin Therapy
INR: 2 .0-3.0 conventional anticoagulation
INR: 2.5- 3.5 high intensity anticoagulation Observation Date Value Abnormality Reference (Units ) Status PT 01/22/2024 05:40:00 22.0 Above high normal 11 .6-15.2 (seconds) Final INR 01/22/2024 05:40:00 1.9 Above high normal 0. 8-1.2 Final Performing Location LABORATORY [facility] [address] [place] [address]
--- OUTSIDE RECORDS SUMMARY | 2024-06-21 01:27 | External Medical Summary | Summary of Care ---
Author Name Unknown Organization [facility] Address [address] [place] [address] Phone [phone] Care Team Providers Care Lawyer Criminal Name Role Phone Manuelthanh Dandre Primary Care Provider Reason for Visit * Reason Comments Dosage Adjustment Via Phone (anticoag Cl inic) Encounter Details Date Type Department Care Team (Latest Contact Info) Description 01/22/2024 4:40 PM EDT Anticoagulation Pharmacy Call Center [address] [place] [address] [facility] 58 60 [facility] [place] [address] Anticoagulation management encounter* Allergies Active Allergy Reactions Criticality Noted Date Comments Bacitracin Itching 02/20/2018 Ezetimibe 09/19/2008 Shellfish Allergy 03/25/2023 Sulfa Antibiotics 12/24/2017 Tramadol Itching 12/24/2017 documented as of this encounter (statuses as of 01/22/2024) Medications Medication Sig Dispensed Refills Start Date [...] in the morning. 0 Active Saline Nasal [place] 0.65 % Nasal Solution ([place]) Administer 1 [place] into nostril as needed for Congestion. 0 12/12/2023 Active Saccharomyces boulardii 250 MG Oral Packet Take 250 mg by mouth in the morning. 0 12/12/2023 Active documented as of this encounter (statuses as of 01/22/2024) Active Problems Problem Noted Date Diagnosed Date [...] as of this encounter (statuses as of 01/22/2024) Resolved Problems Problem Noted Date Diagnosed Date [...] as of this encounter (statuses as of 01/22/2024) Immunizations Name Administration Dates Next Due COVID-19 mRNA, LNP-s, No Pre serve, 2-Dose Series ([employer]) 08/19/2021,12/26/2020,12/05/2020 Covid-19, Mrna, Lnp-s, Pf, B ivalent, 30 Mcg, IM, 12 yrs and above ([employer]) 07/30/2023 H1N1 2009 Influenza, IM 08/10/2009 [...] Progress Notes * Julissa Jean RPh - 01/22/2024 10:19 AM EDT Images from the original note were not included. Medication Therapy Disease Management - Anticoagulation Patient: Analy Haq | : 1940 Assisted/SNF Patient Anticoagulation Encounter Patient is a resident at: [facility] [place] -- CC to Yvette Boyd PA-C and Fax sent to number listed above detailing plan of care below. Please notify clinic with any unusual brusing or bleeding, N/V/D, medication or diet changes or anymissed or extra doses of Coumadin. Subjective Patient-Reported Symptoms: Pt took extra dose on 01/20, no bolus today. Objective Current Warfarin Dose As of 01/22/2024 Warfarin maintenance plan: 2 mg (1 mg x 2) every day INR Result As of 01/22/2024 INR goal: 2.0-3.0 INR used for dosin.9 (01/22/2024) Assessment & Plan Warfarin Plan As of 01/22/2024 Full warfarin instructions: 2 mg every day Next INR check: 01/28/2024 Repeat PT/INR in 1 week(s) Weekly dose: not changed Additional Dosing Information: Julissa Jean RPh Clinical Pharmacist 01/22/2024, 10:19 AM * Annette Lebron lobsterman - 01/22/2024 9:12 AM EDT An inr was drawn today due to pt taking an extra dose last night documented in this encounter Plan of Treatment Upcoming Encounters Date Type Department Care Team (Late st Contact Info) Description 01/28/2024 4:40 PM EDT Anticoagulation Pharmacy Call Center [facility] [address] [place] [address] [facility] [address] 60 [facility] [place] [address] Health Maintenance Due Date Last Done Comments Albumin/Creatinine Ratio 1956 DTaP,Tdap,and Td Vaccines (2 - Td or Tdap) 10/15/2021 10/15/2011 COVID-19 Vaccine (2022- season) 2023 07/30/2023, 07/30/2023, 07/30/2023, Additional history exists DXA Scan 05/02/2024 05/02/2022, 04/07, 12/03/2018, Additional history exists Zoster Vaccines Completed 11/04/2019, 10/08, 05/27/2019, Additional history exists VITAMIN D LEVEL ONCE IN A LIFETIME-USE SMARTSET# [id number] Completed 05/31/2020, 11/25/2019, 08/06/2019, Additional history exists [...] monitoring documented in this encounter Care Teams Lawyer Criminal Relationship Specialty Start Date End Date Dandre Baldwin DO [address] [facility] [place] [address] PCP - General Internal Medicine 03/13/22 documented as of this encounter"
--- OUTSIDE RECORDS SUMMARY | 2024-06-21 01:27 | External Medical Summary | Summary of Care ---
Author Name Unknown Organization [facility] Address [address] [place] [address] Phone [phone] Care Team Providers Care Animal Care Service Worker Name Role Phone Manuelthanh Dandre Primary Care Provider Reason for Visit * Reason Comments Dosage Adjustment Via Phone (anticoag Cl inic) Encounter Details Date Type Department Care Team (Latest Contact Info) Description 01/14/2024 4:40 PM EDT Anticoagulation Pharmacy Call Center [address] [place] [address] [facility] 58 60 [facility] [place] [facility] Anticoagulation management encounter* Allergies Active Allergy Reactions Criticality Noted Date Comments Bacitracin Itching 02/20/2018 Ezetimibe 09/19/2008 Shellfish Allergy 03/25/2023 Sulfa Antibiotics 12/24/2017 Tramadol Itching 12/24/2017 documented as of this encounter (statuses as of 01/14/2024) Medications Medication Sig Dispensed Refills Start Date [...] in the morning. 0 Active Saline Nasal [place] 0.65 % Nasal Solution ([place]) Administer 1 [place] into nostril as needed for Congestion. 0 12/12/2023 Active Saccharomyces boulardii 250 MG Oral Packet Take 250 mg by mouth in the morning. 0 12/12/2023 Active documented as of this encounter (statuses as of 01/14/2024) Active Problems Problem Noted Date Diagnosed Date [...] as of this encounter (statuses as of 01/14/2024) Resolved Problems Problem Noted Date Diagnosed Date [...] as of this encounter (statuses as of 01/14/2024) Immunizations Name Administration Dates Next Due COVID-19 mRNA, LNP-s, No Pre serve, 2-Dose Series ([employer]) 08/19/2021,12/26/2020,12/05/2020 Covid-19, Mrna, Lnp-s, Pf, B ivalent, 30 Mcg, IM, 12 yrs and above ([employer]) 07/30/2023 H1N1 2009 Influenza, IM 08/10/2009 Pneumococcal [...] Progress Notes * Julissa Jean RPh - 01/14/2024 9:39 AM EDT Medication Therapy Disease Management - Anticoagulation Patient: Analy Haq | : 1940 Fdc/SNF Patient Anticoagulation Encounter Patient is a resident at: [facility] -- [place] -- CC to Yvette Boyd PA-C and Fax sent to number listed above detailing plan of care below. Please notify clinic with any unusual brusing or bleeding, N/V/D, medication or diet changes or anymissed or extra doses of Coumadin. Subjective Patient-Reported Symptoms: Objective Current Warfarin Dose As of 01/14/2024 Warfarin maintenance plan: 2 mg (1 mg x 2) every day INR Result As of 01/14/2024 INR goal: 2.0-3.0 INR used for dosin.4 (01/14/2024) Assessment & Plan Warfarin Plan As of 01/14/2024 Full warfarin instructions: 2 mg every day No change documented: Julissa Jean RPh Next INR check: 01/21/2024 Repeat PT/INR in 1 week(s) Weekly dose: not changed Additional Dosing Information: Julissa Jean RPh Clinical Pharmacist 01/14/2024, 9:43 AM documented in this encounter Plan of Treatment Health Maintenance Due Date Last Done Comments Albumin/Creatinine Ratio 1958 DTaP,Tdap,and Td Vaccines (2 - Td or Tdap) 10/15/2021 10/15/2011 COVID-19 Vaccine (5 - 3-24 season) 2023 07/30/2023, 07/30/2023, 07/30/2023, Additional history exists DXA Scan 05/02/2024 05/02/2022, 04/07, 12/03/2018, Additional history exists Zoster Vaccines Completed 11/04/2019, 10/08, 05/27/2019, Additional history exists VITAMIN D LEVEL ONCE IN A LIFETIME-USE SMARTSET# [id number] Completed 05/31/2020, 11/25/2019, 08/06/2019, Additional history exists [...] monitoring documented in this encounter Care Teams Animal Care Service Worker Relationship Specialty Start Date End Date Dandre Baldwin DO [address] [place] [address] PCP - General Internal Medicine 03/13/22 documented as of this encounter"
--- OUTSIDE RECORDS SUMMARY | 2024-06-21 01:27 | External Medical Summary ---
Author Name Unknown Address Unknown Organization K0[facility] [address] [place] [address] Laboratory Report Ordering Provider Test Date Status SOLE HENDRIX 01/21/2024 05:50:00 Final Warfarin Therapy
INR: 2 .0-3.0 conventional anticoagulation
INR: 2.5- 3.5 high intensity anticoagulation Observation Date Value Abnormality Reference (Units ) Status PT 01/21/2024 05:50:00 21.4 Above high normal 11 .6-15.2 (seconds) Final INR 01/21/2024 05:50:00 1.8 Above high normal 0. 8-1.2 Final Performing Location LABORATORY [facility] MICHAEL [address] [place] [address]
--- OUTSIDE RECORDS SUMMARY | 2024-06-21 01:27 | External Medical Summary | Summary of Care ---
Author Name Unknown Organization [facility] Address [address] [place] [address] Phone [phone] Care Team Providers Care Document Examiner Name Role Phone Manuelthanh Dandre Primary Care Provider Reason for Visit * Reason Comments Dosage Adjustment Via Phone (anticoag Cl inic) Encounter Details Date Type Department Care Team (Latest Contact Info) Description 01/09/2024 4:40 PM EDT Anticoagulation Pharmacy Call Center [phone] [place] [address] [facility] 58 60 [facility] [place] [address] Anticoagulation management encounter* Allergies Active Allergy Reactions Criticality Noted Date Comments Bacitracin Itching 02/20/2018 Ezetimibe 09/19/2008 Shellfish Allergy 03/25/2023 Sulfa Antibiotics 12/24/2017 Tramadol Itching 12/24/2017 documented as of this encounter (statuses as of 01/09/2024) Medications Medication Sig Dispensed Refills Start Date [...] in the morning. 0 Active Saline Nasal [place] 0.65 % Nasal Solution ([place]) Administer 1 [place] into nostril as needed for Congestion. 0 12/12/2023 Active Saccharomyces boulardii 250 MG Oral Packet Take 250 mg by mouth in the morning. 0 12/12/2023 Active documented as of this encounter (statuses as of 01/09/2024) Active Problems Problem Noted Date Diagnosed Date [...] as of this encounter (statuses as of 01/09/2024) Resolved Problems Problem Noted Date Diagnosed Date [...] as of this encounter (statuses as of 01/09/2024) Immunizations Name Administration Dates Next Due COVID-19 mRNA, LNP-s, No Pre serve, 2-Dose Series ([employer] 08/19/2021,12/26/2020,12/05/2020 Covid-19, Mrna, Lnp-s, Pf, B ivalent, 30 Mcg, IM, 12 yrs and above ([employer] 07/30/2023 H1N1 2009 Influenza, IM 08/10/2009 Pneumococcal [...] Progress Notes * Julissa Jean RPh - 01/09/2024 10:23 AM EDT Medication Therapy Disease Management - Anticoagulation Patient: Analy Haq | : 1940 Senior Living/SNF Patient Anticoagulation Encounter Patient is a resident at: [facility] -- [place] -- CC to Yvette Boyd PA-C and Fax sent to number listed above detailing plan of care below. Please notify clinic with any unusual brusing or bleeding, N/V/D, medication or diet changes or anymissed or extra doses of Coumadin. Subjective Patient-Reported Symptoms: Objective Current Warfarin Dose As of 01/09/2024 Warfarin maintenance plan: 2 mg (1 mg x 2) every day INR Result As of 01/09/2024 INR goal: 2.0-3.0 INR used for dosin.4 (01/09/2024) Assessment & Plan Warfarin Plan As of 01/09/2024 Full warfarin instructions: 2 mg every day No change documented: Julissa Jean RPh Next INR check: 01/14/2024 Repeat PT/INR in 5 day(s) Weekly dose: not changed Additional Dosing Information: Julissa Jean RPh Clinical Pharmacist 01/09/2024, 10:25 AM documented in this encounter Plan of [...] D LEVEL ONCE IN A LIFETIME-USE SMARTSET# [id number] Completed 05/31/2020, 11/25/2019, 08/06/2019, Additional history exists [...] monitoring documented in this encounter Care Teams Document Examiner Relationship Specialty Start Date End Date Dandre Baldwin DO [address] [place], [place] [id number] PCP - General Internal Medicine 03/13/22 documented as of this encounter"
--- OUTSIDE RECORDS SUMMARY | 2024-06-21 01:27 | External Medical Summary | Summary of Care ---
Author Name Unknown Organization [facility] Address [address] [place] [address] Phone [phone] Care Team Providers Care Trimming Caser Name Role Phone Manuelthanh Dandre Primary Care Provider Reason for Visit * Reason Comments Dosage Adjustment Via Phone (anticoag Cl inic) Encounter Details Date Type Department Care Team (Latest Contact Info) Description 01/21/2024 4:40 PM EDT Anticoagulation Pharmacy Call Center [address] [place] [address] [facility] 58 60 [facility] [place] [address] Anticoagulation management encounter* Allergies Active Allergy Reactions Criticality Noted Date Comments Bacitracin Itching 02/20/2018 Ezetimibe 09/19/2008 Shellfish Allergy 03/25/2023 Sulfa Antibiotics 12/24/2017 Tramadol Itching 12/24/2017 documented as of this encounter (statuses as of 01/21/2024) Medications Medication Sig Dispensed Refills Start Date [...] in the morning. 0 Active Saline Nasal [place] 0.65 % Nasal Solution ([place]) Administer 1 [place] into nostril as needed for Congestion. 0 12/12/2023 Active Saccharomyces boulardii 250 MG Oral Packet Take 250 mg by mouth in the morning. 0 12/12/2023 Active documented as of this encounter (statuses as of 01/21/2024) Active Problems Problem Noted Date Diagnosed Date [...] as of this encounter (statuses as of 01/21/2024) Resolved Problems Problem Noted Date Diagnosed Date [...] as of this encounter (statuses as of 01/21/2024) Immunizations Name Administration Dates Next Due COVID-19 mRNA, LNP-s, No Pre serve, 2-Dose Series ([employer]) 08/19/2021,12/26/2020,12/05/2020 Covid-19, Mrna, Lnp-s, Pf, B ivalent, 30 Mcg, IM, 12 yrs and above ([employer]) 07/30/2023 H1N1 2009 Influenza, IM 08/10/2009 Pneumococcal [...] as of this encounter Progress Notes * Chris Zepeda RPh - 01/21/2024 1:29 PM EDT Images from the original note were not included. Medication Therapy Disease Management - Anticoagulation Patient: Analy Haq | : 1940 Group Home/SNF Patient Anticoagulation Encounter Patient is a resident at: [facility] -- [place] -- CC to Yvette Boyd PA-C and Fax sent to number listed above detailing plan of care below. Please notify clinic with any unusual brusing or bleeding, N/V/D, medication or diet changes or anymissed or extra doses of Coumadin. Objective Current Warfarin Dose As of 01/21/2024 Warfarin maintenance plan: 2 mg (1 mg x 2) every day INR Result As of 01/21/2024 INR goal: 2.0-3.0 INR used for dosin.8 (01/21/2024) Assessment & Plan Warfarin Plan As of 01/21/2024 Full warfarin instructions: 01/20: 4 mg; Otherwise 2 mg every day Next INR check: 01/28/2024 Repeat PT/INR in 1 week(s) Weekly dose: not changed Additional Dosing Information: Chris Zepeda RPh Clinical Pharmacist 01/21/2024, 1:29 PM documented in this encounter Plan of Treatment Upcoming Encounters Date Type Department Care Team (Late st Contact Info) Description 01/28/2024 4:40 PM EDT Anticoagulation Pharmacy Call Center WB [address] [place] [address] [facility] 58 60 [facility] [place] [address] Health Maintenance Due Date Last Done Comments Albumin/Creatinine Ratio 1958 DTaP,Tdap,and Td Vaccines (2 - Td or Tdap) 10/15/2021 10/15/2011 COVID-19 Vaccine (5 - 2022- season) 2023 07/30/2023, 07/30/2023, 07/30/2023, Additional history exists DXA Scan 05/02/2024 05/02/2022, 04/07, 12/03/2018, Additional history exists Zoster Vaccines Completed 11/04/2019, 10/08, 05/27/2019, Additional history exists VITAMIN D LEVEL ONCE IN A LIFETIME-USE SMARTSET# [id number] Completed 05/31/2020, 11/25/2019, 08/06/2019, Additional history exists [...] monitoring documented in this encounter Care Teams Trimming Caser Relationship Specialty Start Date End Date Dandre Baldwin DO [address] [facility] [place] [id number] PCP - General Internal Medicine 03/13/22 documented as of this encounter"
--- OUTSIDE RECORDS SUMMARY | 2024-06-21 01:27 | External Medical Summary ---
Author Name Unknown Address Unknown Organization K0G:[facility] MICHAEL [address] [place] [address] Laboratory Report Ordering Provider Test Date Status SOLE HENDRIX 01/14/2024 05:45:00 Final Warfarin Therapy
INR: 2 .0-3.0 conventional anticoagulation
INR: 2.5- 3.5 high intensity anticoagulation Observation Date Value Abnormality Reference (Units ) Status PT 01/14/2024 05:45:00 26.4 Above high normal 11 .6-15.2 (seconds) Final INR 01/14/2024 05:45:00 2.4 Above high normal 0. 8-1.2 Final Performing Location LAB[facility]ATORY [facility] MICHAEL [address] [place] [address]
--- OUTSIDE RECORDS SUMMARY | 2024-06-21 01:27 | External Medical Summary | Summary of Care ---
Author Name Unknown Organization [facility] Address [address] [place] [address] Phone [phone] Care Team Providers Care Assembler Skylights Name Role Phone Dandre Baldwin Primary Care Provider [phone] Encounter Details Date Type Department Care Team (Late st Contact Info) Description 01/21/2024 Orders Only Lab Mobile Phlebotomy [facility] [address] [employer] [place] [address] Yvette Boyd PA-C [address] [place] [address] Encounter for deep vein thrombosis (DVT) prophylaxis* [...] in the morning. 0 Active Saline Nasal [place] 0.65 % Nasal Solution ([place]) Administer 1 [place] into nostril as needed for Congestion. 0 [...] mRNA, LNP-s, No Pre serve, 2-Dose Series ([employer]) 08/19/2021,12/26/2020,12/05/2020 Covid-19, Mrna, Lnp-s, Pf, B ivalent, 30 Mcg, IM, 12 yrs and above ([employer]) 07/30/2023 H1N1 2009 Influenza, IM 08/10/2009 Pneumococcal [...] Care Team (Late st Contact Info) Description 01/21/2024 4:40 PM EDT Anticoagulation Pharmacy Call Center [address] [facility] [place] [address] [address] 58 60 [facility] [place] [address] Scheduled Orders Name Type Priority Associated Diagnoses Orde r Schedule PT INR Lab Routine Encounter for deep vein thrombosis (DVT) prophylaxis Expected: 01/21/2024, Expires: 01/20/2025 Health Maintenance Due Date Last Done Comments Albumin/Creatinine Ratio 1958 DTaP,Tdap,and Td Vaccines (2 - Td or Tdap) 10/15/2021 10/15/2011 COVID-19 Vaccine (2022- season) 2023 07/30/2023, 07/30/2023, 07/30/2023, Additional history exists DXA Scan 05/02/2024 05/02/2022, 04/07, 12/03/2018, Additional history exists Zoster Vaccines Completed 11/04/2019, 10/08, 05/27/2019, Additional history exists VITAMIN D LEVEL ONCE IN A LIFETIME-USE SMARTSET# [id number] Completed 05/31/2020, 11/25/2019, 08/06/2019, Additional history exists [...] Primary documented in this encounter Care Teams Assembler Skylights Relationship Specialty Start Date End Date Dandre Baldwin DO [address] [place] [address] PCP - General Internal Medicine 03/13/22 documented as of this encounter
--- OUTSIDE RECORDS SUMMARY | 2024-06-21 01:27 | External Medical Summary | Summary of Care ---
Author Name Unknown Organization [facility] Address [address] [place] [address] Phone [phone] Care Team Providers Care Parking Enforcement Technician Name Role Phone Manuelthanh Dandre Primary Care Provider Reason for Visit * Reason Comments Dosage Adjustment Via Phone (anticoag Cl inic) Encounter Details Date Type Department Care Team (Latest Contact Info) Description 01/28/2024 4:40 PM EDT Anticoagulation Pharmacy Call Center [address] [place] [address] [facility] 58 60 [facility] [place] [address] Anticoagulation management encounter* Allergies Active Allergy Reactions Criticality Noted Date Comments Bacitracin Itching 02/20/2018 Ezetimibe 09/19/2008 Shellfish Allergy 03/25/2023 Sulfa Antibiotics 12/24/2017 Tramadol Itching 12/24/2017 documented as of this encounter (statuses as of 01/28/2024) Medications Medication Sig Dispensed Refills Start Date [...] in the morning. 0 Active Saline Nasal [place] 0.65 % Nasal Solution ([place]) Administer 1 [place] into nostril as needed for Congestion. 0 12/12/2023 Active Saccharomyces boulardii 250 MG Oral Packet Take 250 mg by mouth in the morning. 0 12/12/2023 Active documented as of this encounter (statuses as of 01/28/2024) Active Problems Problem Noted Date Diagnosed Date [...] as of this encounter (statuses as of 01/28/2024) Resolved Problems Problem Noted Date Diagnosed Date [...] as of this encounter (statuses as of 01/28/2024) Immunizations Name Administration Dates Next Due COVID-19 mRNA, LNP-s, No Pre serve, 2-Dose Series ([employer]) 08/19/2021,12/26/2020,12/05/2020 Covid-19, Mrna, Lnp-s, Pf, B ivalent, 30 Mcg, IM, 12 yrs and above ([employer]) 07/30/2023 H1N1 2009 Influenza, IM 08/10/2009 Pneumococcal [...] Progress Notes * Julissa Jean RPh - 01/28/2024 1:52 PM EDT Medication Therapy Disease Management - Anticoagulation Patient: Analy Haq | : 1940 Subjective Chcf/SNF Patient Anticoagulation Encounter Patient is a resident at: [facility] -- [place] -- CC to Yvette Boyd PA-C and Fax sent to number listed above detailing plan of care below. Please notify clinic with any unusual brusing or bleeding, N/V/D, medication or diet changes or anymissed or extra doses of Coumadin. Patient-Reported Symptoms: Objective Current Warfarin Dose As of 01/28/2024 Warfarin maintenance plan: 2 mg (1 mg x 2) every day INR Result As of 01/28/2024 INR goal: 2.0-3.0 INR used for dosing: No new INR was available at the time of this encounter. Assessment & Plan Warfarin Plan As of 01/28/2024 Full warfarin instructions: 2 mg every day Next INR check: 01/29/2024 Repeat PT/INR in 1 day(s) Weekly dose: not changed Additional Dosing Information: Julissa Jean RPh Clinical Pharmacist 01/28/2024, 1:52 PM * Sophia Graff, stna - 01/28/2024 1:47 PM EDT Spoke to Analy @ [facility]. She is going to reach out to an RN, INR was not drawn today. Please advise as she did not know when INR could be drawn again and RN was not available at the time of call. Thank you, Sophia Graff Messaging Architect [facility] ([facility]) (formerly Telepharmacy) [phone] 01/28/2024,1:49 PM documented in this encounter Plan of Treatment Upcoming Encounters Date Type Department Care Team (Late st Contact Info) Description 01/29/2024 4:40 PM EDT Anticoagulation Pharmacy Call Center [address] [facility] [place] [address] [facility] 58 60 [facility] [place] [address] Health Maintenance Due Date Last Done Comments Albumin/Creatinine Ratio 1958 DTaP,Tdap,and Td Vaccines (2 - Td or Tdap) 10/15/2021 10/15/2011 COVID-19 Vaccine ( season) 2023 07/30/2023, 07/30/2023, 07/30/2023, Additional history exists DXA Scan 05/02/2024 05/02/2022, 04/07, 12/03/2018, Additional history exists Zoster Vaccines Completed 11/04/2019, 10/08, 05/27/2019, Additional history exists VITAMIN D LEVEL ONCE IN A LIFETIME-USE SMARTSET# [id number] Completed 05/31/2020, 11/25/2019, 08/06/2019, Additional history exists [...] monitoring documented in this encounter Care Teams Parking Enforcement Technician Relationship Specialty Start Date End Date Dandre Baldwin DO [address] [facility] [place] [address] PCP - General Internal Medicine 03/13/22 documented as of this encounter"
--- OUTSIDE RECORDS SUMMARY | 2024-06-21 01:27 | External Medical Summary | Summary of Care ---
Author Name Unknown Organization [facility] Address [address] [place] [address] Phone [phone] Care Team Providers Care Sports Anchor Name Role Phone Dandre Baldwin Primary Care Provider Encounter Details Date Type Department Care Team (Late st Contact Info) Description 01/22/2024 Orders Only Lab Mobile Phlebotomy [facility] [address] [employer] [place] [address] Yvette Boyd PA-C [address] [place] [address] Encounter for deep vein thrombosis (DVT) prophylaxis* [...] in the morning. 0 Active Saline Nasal [place] 0.65 % Nasal Solution ([place]) Administer 1 [place] into nostril as needed for Congestion. 0 [...] mRNA, LNP-s, No Pre serve, 2-Dose Series ([employer]) 08/19/2021,12/26/2020,12/05/2020 Covid-19, Mrna, Lnp-s, Pf, B ivalent, 30 Mcg, IM, 12 yrs and above ([employer]) 07/30/2023 H1N1 2009 Influenza, IM 08/10/2009 Pneumococcal [...] PM EDT Anticoagulation Pharmacy Call Center [address] [facility] [place] [address] [facility], [facility] 58 60 [facility] [place] [address] Scheduled Orders Name Type Priority Associated Diagnoses Orde r Schedule PT INR Lab Routine Encounter for deep vein thrombosis (DVT) prophylaxis Expected: 01/22/2024, Expires: 01/21/2025 Health Maintenance Due Date Last Done Comments Albumin/Creatinine Ratio 1958 DTaP,Tdap,and Td Vaccines (2 - Td or Tdap) 10/15/2021 10/15/2011 COVID-19 Vaccine (2022- season) 2023 07/30/2023, 07/30/2023, 07/30/2023, Additional history exists DXA Scan 05/02/2024 05/02/2022, 04/07, 12/03/2018, Additional history exists Zoster Vaccines Completed 11/04/2019, 10/08, 05/27/2019, Additional history exists VITAMIN D LEVEL ONCE IN A LIFETIME-USE SMARTSET# [id number] Completed 05/31/2020, 11/25/2019, 08/06/2019, Additional history exists [...] Primary documented in this encounter Care Teams Sports Anchor Relationship Specialty Start Date End Date Dandre Baldwin DO [address] [place] [address] PCP - General Internal Medicine 03/13/22 documented as of this encounter
--- OUTSIDE RECORDS SUMMARY | 2024-06-21 01:27 | External Medical Summary | Summary of Care ---
Author Name Unknown Organization [facility] Address [address] [place] [address] Phone [phone] Care Team Providers Care Analytical Technician Name Role Phone Dandre Baldwin Primary Care Provider Encounter Details Date Type Department Care Team (Late st Contact Info) Description 01/09/2024 Orders Only Lab Mobile Phlebotomy [facility] [address] [employer] [place] [address] Yvette Boyd PA-C [address] [place] [address] Low serum potassium level*; Atrial fibrillation, unspecified type (HCC) Allergies Active Allergy Reactions Criticality Noted [...] in the morning. 0 Active Saline Nasal [place] 0.65 % Nasal Solution ([place]) Administer 1 [place] into nostril as needed for Congestion. 0 [...] mRNA, LNP-s, No Pre serve, 2-Dose Series ([employer]) 08/19/2021,12/26/2020,12/05/2020 Covid-19, Mrna, Lnp-s, Pf, B ivalent, 30 Mcg, IM, 12 yrs and above ([employer]) 07/30/2023 H1N1 2009 Influenza, IM 08/10/2009 Pneumococcal [...] Care Team (Late st Contact Info) Description 01/09/2024 4:40 PM EDT Anticoagulation Pharmacy Call Center [address] [facility] [place] [address] Ccp, [facility] 58 60 [facility] [place] [address] Scheduled Orders Name Type Priority Associated Diagnoses Orde r Schedule POTASSIUM Lab Routine Low serum potassium level Atrial fibrillation, unspecified type (HCC) Expected: 01/09/2024, Expires: 01/08/2025 PT INR Lab Routine Low serum potassium level Atrial fibrillation, unspecified type (HCC) Expected: 01/09/2024, Expires: 01/08/2025 Health Maintenance Due Date Last Done Comments Albumin/Creatinine Ratio 1958 DTaP,Tdap,and Td Vaccines (2 - Td or Tdap) 10/15/2021 10/15/2011 Depression Screening 05/18/2022 05/18/2021 COVID-19 Vaccine ( season) 2023 07/30/2023, 07/30/2023, 07/30/2023, Additional history exists DXA Scan 05/02/2024 05/02/2022, 04/07, 12/03/2018, Additional history exists Zoster Vaccines Completed 11/04/2019, 10/08, 05/27/2019, Additional history exists VITAMIN D LEVEL ONCE IN A LIFETIME-USE SMARTSET# [id number] Completed 05/31/2020, 11/25/2019, 08/06/2019, Additional history exists [...] as of this encounter Visit Diagnoses Diagnosis Low serum potassium level- Primary Atrial fibrillation, unspecified type (HCC) documented in this encounter Care Teams Analytical Technician Relationship Specialty Start Date End Date Dandre Baldwin DO [address] [place] [address] PCP - General Internal Medicine 03/13/22 documented as of this encounter
--- OUTSIDE RECORDS SUMMARY | 2024-06-21 01:27 | External Medical Summary | Summary of Care ---
Author Name Unknown Organization [facility] Address [address] [place] [address] Phone [phone] Care Team Providers Care Screen Printer Name Role Phone Manuelthanh Dandre Primary Care Provider Reason for Visit * Reason Comments Dosage Adjustment Via Phone (anticoag Cl inic) Encounter Details Date Type Department Care Team (Latest Contact Info) Description 01/29/2024 4:40 PM EDT Anticoagulation Pharmacy Call Center [phone] [place] [address] [facility] [address] [facility] [place] [address] Anticoagulation management encounter* Allergies Active Allergy Reactions [...] in the morning. 0 Active Saline Nasal [place] 0.65 % Nasal Solution ([place]) Administer 1 [place] into nostril as needed for Congestion. 0 [...] mRNA, LNP-s, No Pre serve, 2-Dose Series ([employer]) 08/19/2021,12/26/2020,12/05/2020 Covid-19, Mrna, Lnp-s, Pf, B ivalent, 30 Mcg, IM, 12 yrs and above ([employer]) 07/30/2023 H1N1 2009 Influenza, IM 08/10/2009 Pneumococcal [...] Progress Notes * Julissa Jean RPh - 01/29/2024 10:43 AM EDT Medication Therapy Disease Management - Anticoagulation Patient: Analy Haq | : 1940 [facility] Patient Anticoagulation Encounter Patient is a resident at: [facility] -- [place] -- CC to Yvette Boyd PA-C and Fax sent to number listed above detailing plan of care below. Please notify clinic with any unusual brusing or bleeding, N/V/D, medication or diet changes or anymissed or extra doses of Coumadin. Subjective Patient-Reported Symptoms: Objective Current Warfarin Dose As of 01/29/2024 Warfarin maintenance plan: 2 mg (1 mg x 2) every day INR Result As of 01/29/2024 INR goal: 2.0-3.0 INR used for dosin.6 (01/29/2024) Assessment & Plan Warfarin Plan As of 01/29/2024 Full warfarin instructions: 2 mg every day No change documented: Julissa Jean RPh Next INR check: 02/05/2024 Repeat PT/INR in 1 week(s) Weekly dose: not changed Additional Dosing Information: Julissa Jean RPh Clinical Pharmacist 01/29/2024, 10:43 AM documented in this encounter Plan of Treatment Upcoming Encounters Date Type Department Care Team (Late st Contact Info) Description 02/05/2024 4:40 PM EDT Anticoagulation Pharmacy Call Center [phone] [facility] [place] [address] [facility] 58 60 [facility] [place] [address] Health Maintenance Due Date Last Done Comments Albumin/Creatinine Ratio 1958 DTaP,Tdap,and Td Vaccines (2 - Td or Tdap) 10/15/2021 10/15/2011 COVID-19 Vaccine ( - 2022- season) 2023 07/30/2023, 07/30/2023, 07/30/2023, Additional history exists DXA Scan 05/02/2024 05/02/2022, 04/07, 12/03/2018, Additional history exists Zoster Vaccines Completed 11/04/2019, 10/08, 05/27/2019, Additional history exists VITAMIN D LEVEL ONCE IN A LIFETIME-USE SMARTSET# [id number] Completed 05/31/2020, 11/25/2019, 08/06/2019, Additional history exists [...] monitoring documented in this encounter Care Teams Screen Printer Relationship Specialty Start Date End Date Dandre Baldwin DO [address] [facility] [place] [address] PCP - General Internal Medicine 03/13/22 documented as of this encounter"
--- OUTSIDE RECORDS SUMMARY | 2024-06-21 01:27 | External Medical Summary | Summary of Care ---
Author Name Unknown Organization [facility] Address [address] [place] [address] Phone [phone] Care Team Providers Care Group Exercise Instructor Name Role Phone Dandre Baldwin Primary Care Provider Encounter Details Date Type Department Care Team (Late st Contact Info) Description 01/14/2024 Orders Only Lab Mobile Phlebotomy [facility] [address] [employer] [employer] [place] [address] Yvette Boyd PA-C [address] [place] [address] Encounter for deep vein thrombosis (DVT) prophylaxis* [...] in the morning. 0 Active Saline Nasal [place] 0.65 % Nasal Solution ([place]) Administer 1 [place] into nostril as needed for Congestion. 0 [...] mRNA, LNP-s, No Pre serve, 2-Dose Series ([employer]) 08/19/2021,12/26/2020,12/05/2020 Covid-19, Mrna, Lnp-s, Pf, B ivalent, 30 Mcg, IM, 12 yrs and above ([employer]) 07/30/2023 H1N1 2009 Influenza, IM 08/10/2009 Pneumococcal [...] Care Team (Late st Contact Info) Description 01/14/2024 4:40 PM EDT Anticoagulation Pharmacy Call Center [phone] [facility] [place] [address] C[facility]ps, [facility] 58 60 [facility] [place] [address] Scheduled Orders Name Type Priority Associated Diagnoses Orde r Schedule PT INR Lab Routine Encounter for deep vein thrombosis (DVT) prophylaxis Expected: 01/14/2024, Expires: 01/13/2025 Health Maintenance Due Date Last Done Comments Albumin/Creatinine Ratio 1958 DTaP,Tdap,and Td Vaccines (2 - Td or Tdap) 10/15/2021 10/15/2011 COVID-19 Vaccine (2022- season) 2023 07/30/2023, 07/30/2023, 07/30/2023, Additional history exists DXA Scan 05/02/2024 05/02/2022, 04/07, 12/03/2018, Additional history exists Zoster Vaccines Completed 11/04/2019, 10/08, 05/27/2019, Additional history exists VITAMIN D LEVEL ONCE IN A LIFETIME-USE SMARTSET# [id number] Completed 05/31/2020, 11/25/2019, 08/06/2019, Additional history exists [...] Primary documented in this encounter Care Teams Group Exercise Instructor Relationship Specialty Start Date End Date Dandre Baldwin DO [address] [place] [address] PCP - General Internal Medicine 03/13/22 documented as of this encounter
--- OUTSIDE RECORDS SUMMARY | 2024-06-21 01:27 | External Medical Summary ---
Author Name Unknown Address Unknown Organization [id number]:[facility] MICHAEL [address] [place] [address] Laboratory Report Ordering Provider Test Date Status SOLE HENDRIX 01/13/2024 05:50:00 Final Observation Date Value Abnormality Reference (Units ) Status WBC, Total 01/13/2024 05:50:00 7.62 4.00-10.8 0 (K/uL) Final RBC 01/13/2024 05:50:00 3.66 3.85-5.15 (M/uL) Final Hemoglobin 01/13/2024 05:50:00 9.9 Below low normal 12 .0-15.3 (g/dL) Final HCT 01/13/2024 05:50:00 32.5 Below low normal 36. 0-45.2 (%) Final MCV 01/13/2024 05:50:00 88.8 81.5-97.5 (fL) Final MCH 01/13/2024 05:50:00 27.0 27.0-34.0 (pg) Final MCHC 01/13/2024 05:50:00 30.5 32.0-36.0 (g/dL) Final RDW 01/13/2024 05:50:00 14.3 11.5-15.5 (%) Final Platelets 01/13/2024 05:50:00 379 140-400 (K /uL) Final MPV 01/13/2024 05:50:00 9.5 6.6-11.1 ( fL) Final Performing Location [facility] [address] [place] [address]
--- OUTSIDE RECORDS SUMMARY | 2024-06-21 01:27 | External Medical Summary ---
Author Name Unknown Address Unknown Organization K0G:[facility] [place]EL [address] [place] [address] Laboratory Report Ordering Provider Test Date Status SOLE HENDRIX 02/05/2024 06:02:00 Final Warfarin Therapy
INR: 2 .0-3.0 conventional anticoagulation
INR: 2.5- 3.5 high intensity anticoagulation Observation Date Value Abnormality Reference (Units ) Status PT 02/05/2024 06:02:00 20.2 Above high normal 11 .6-15.2 (seconds) Final INR 02/05/2024 06:02:00 1.7 Above high normal 0. 8-1.2 Final Performing Location LAB[facility]ORY [facility] [place]EL [address] [place] [address]
--- OUTSIDE RECORDS SUMMARY | 2024-06-21 01:27 | External Medical Summary ---
Author Name Unknown Address Unknown Organization [facility] [address] [place] [address] Laboratory Report Ordering Provider Test Date Status SOLE HENDRIX 01/09/2024 05:45:00 Final Observation Date Value Abnormality Reference (Units ) Status Potassium 01/09/2024 05:45:00 4.0 3.5-5.1 (m mol/L) Final Performing [facility] [address] [place] [address]
--- OUTSIDE RECORDS SUMMARY | 2024-06-21 01:27 | External Medical Summary ---
Author Name Unknown Address Unknown Organization K0G:[facility] [place]EL [address] [place] [address] Laboratory Report Ordering Provider Test Date Status SOLE HENDRIX 01/09/2024 05:45:00 Final Warfarin Therapy
INR: 2 .0-3.0 conventional anticoagulation
INR: 2.5- 3.5 high intensity anticoagulation Observation Date Value Abnormality Reference (Units ) Status PT 01/09/2024 05:45:00 26.1 Above high normal 11 .6-15.2 (seconds) Final INR 01/09/2024 05:45:00 2.4 Above high normal 0. 8-1.2 Final Performing Location [facility]ORY [facility] [place]EL [address] [place] [address]
--- OUTSIDE RECORDS SUMMARY | 2024-06-21 01:28 | External Medical Summary | Summary of Care ---
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; History of cerebrovascular accident; Acute deep vein thrombosis (DVT) of femoral vein of right lower extremity (HCC); Anticoagulation management encounter; Hypokalemia; HTN, goal below 150/90; Moderate episode of recurrent major depressive disorder (HCC); Senile dementia, uncomplicated (HCC); Gastroesophageal reflux disease without esophagitis Allergies Active Allergy Reactions Criticality Noted Date Comments Bacitracin Itching 02/20/2018 Ezetimibe 09/19/2008 Shellfish Allergy 03/25/2023 Sulfa Antibiotics 12/24/2017 Tramadol Itching 12/24/2017 documented as of this encounter (statuses as of 01/08/2024) Medications Medication Sig Dispensed Refills Start Date [...] in the morning. 0 Active Saline Nasal [place] 0.65 % Nasal Solution ([place]) Administer 1 [place] into nostril as needed for Congestion. 0 12/12/2023 Active Saccharomyces boulardii 250 MG Oral Packet Take 250 mg by mouth in the morning. 0 12/12/2023 Active documented as of this encounter (statuses as of 01/08/2024) Active Problems Problem Noted Date Diagnosed Date [...] as of this encounter (statuses as of 01/08/2024) Resolved Problems Problem Noted Date Diagnosed Date [...] as of this encounter (statuses as of 01/08/2024) Immunizations Name Administration Dates Next Due COVID-19 mRNA, LNP-s, No Pre serve, 2-Dose Series ([employer]) 08/19/2021,12/26/2020,12/05/2020 Covid-19, Mrna, Lnp-s, Pf, B ivalent, [...] Sign Reading Time Taken Comments Blood Pressure 173/83 01/08/2024 4:20 PM EDT Pulse 87 01/08/2024 4:20 PM EDT Temperature 36.3 C (97.3 F) 01/08/2024 4:20 PM ED T Respiratory Rate 22 01/08/2024 4:20 PM EDT Oxygen Saturation 92% 01/08/2024 4:20 PM EDT room air Inhaled Oxygen Concentration - - Weight 52.2 kg (115 lb 1.6 oz) 01/08/2024 4:20 P M EDT Height - - Body Mass Index 21.05 03/25/2023 4:06 PM EDT documented in this [...] Call Center WB [address] [place] [address] [facility] [address] [facility] [place] [address] Health Maintenance Due Date Last Done Comments Albumin/Creatinine Ratio 1958 DTaP,Tdap,and Td Vaccines (2 - Td or Tdap) 10/15/2021 10/15/2011 Depression Screening 05/18/2022 05/18/2021 COVID-19 Vaccine ( season) 2023 07/30/2023, 07/30/2023, 07/30/2023, Additional history exists DXA Scan 05/02/2024 05/02/2022, 04/07, 12/03/2018, Additional history exists Zoster Vaccines Completed 11/04/2019, 10/08, 05/27/2019, Additional history exists VITAMIN D LEVEL ONCE IN A LIFETIME-USE SMARTSET# [id number] Completed 05/31/2020, 11/25/2019, 08/06/2019, Additional history exists [...] as of this encounter Visit Diagnoses Diagnosis Pyelitis- Primary Pyelonephritis, unspecified 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 History of cerebrovascular accident Transient ischemic attack (TIA), and cerebral infarction without residual deficits Acute deep vein thrombosis (DVT) of femoral vein of right lower extremity (HCC) Anticoagulation management encounter Encounter for therapeutic drug monitoring Hypokalemia Hypopotassemia HTN, goal below 150/90 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
[2024-06-21 02:04] LABS: Basophils # (auto) 0.06 K/uL (0.00-0.20); Basophils % (auto) 0.5 %; Eosinophils # (auto) 0.11 K/uL (0.00-0.50); Hematocrit (blood only) 38.5 % (37.0-47.0); Hemoglobin 11.9 g/dl (12.0-16.0); Immature Granulocytes # (auto) 0.03 K/uL (0.01-0.20); Immature Granulocytes % (auto) 0.3 %; Lymphocytes # (auto) 3.02 K/uL (1.20-3.40); Lymphocytes % (auto) 26.7 %; Mean Corpuscular Hemoglobin 25.5 pg (25.0-34.0); Mean Corpuscular Hgb Conc 30.9 g/dL (32.0-36.0); Mean Corpuscular Volume 82.4 fL (80.0-100.0); Mean Platelet Volume 9.7 fL (9.4-12.4); Monocytes # (auto) 0.87 K/uL (0.11-0.59); Monocytes % (auto) 7.7 %; Neutrophils # (auto) 7.23 K/uL (1.40-6.50); Neutrophils % (auto) 63.8 %; Platelet Count 314 K/uL (130-400); RDW Coefficient of Variation 13.6 % (11.5-14.5); RDW Standard Deviation 40.7 fL (36.4-46.3); Red Blood Count 4.67 M/uL (4.20-5.40); White Blood Count 11.32 K/ul (4.8-10.8)
[2024-06-21 02:09] LABS: Bilirubin Direct 0.1 mg/dl (0-0.2); Bilirubin,Total 0.5 mg/dl (0.2-1.0); Calcium 9.9 mg/dl (8.6-10.3); Creatinine Clr Calc Pharmacy 38.8 ml/min; Est GFR (African American) 77.9 ml/min; Est GFR (Non-African American) 67.2 ml/min; Magnesium 1.8 mg/dl (1.7-2.4); Potassium 3.9 mmol/L (3.5-5.1); Total Protein 7.5 gm/dl (6.0-8.3)
[2024-06-21 02:15] LABS: Troponin I High Sensitivity 9.2 pg/ml (0-14)
--- NOTE | 2024-06-21 02:21 | Emergency Department Note ---
History of Present Illness General Chief complaint: Illness Stated complaint: Confusion, Dizziness Time Seen by Provider: 06/21/24 01:36 Source: family (Daughter at bedside) History of Present Illness Provider complaint: Altered mental status agitation 83-year-old female presents emergency department for altered mental status and agitation. Patient daughter is providing history as she states the patient has dementia. She states the patient has been increasingly agitated today and more confused than usual. She denies any falls. Patient not reporting any pain. No fevers. No nausea or vomiting. Home Medications Medication Instructions Recorded Confirmed Type loratadine 10 mg tablet (Claritin) 10 mg PO QAM 12/25/21 01/04/24 History polyethylene glycol 3350 17 gram 17 g PO BID #14 ea 02/15/22 01/04/24 Rx oral powder packet (Miralax) mirtazapine 15 mg tablet 7.5 mg PO HS 03/15/23 01/04/24 History sertraline 25 mg tablet 25 mg PO DAILY 03/15/23 01/04/24 History acetaminophen 325 mg tablet 650 mg PO Q4H PRN PAIN/FEVER>100 11/19/23 01/04/24 History (Tylenol) carboxymethylcellulose sodium 1 % 2 drp OPL TID 11/19/23 01/04/24 History eye drops (Artificial Tears (carboxymethylcellulose)) docusate sodium 100 mg capsule 100 mg PO QAM 11/19/23 01/04/24 History omeprazole 20 mg capsule,delayed 20 mg PO DAILY 11/19/23 01/04/24 History release aspirin 81 mg tablet,delayed 81 mg PO QAM #30 tabs 11/27/23 01/04/24 Rx release atorvastatin 40 mg tablet 40 mg PO QAM #30 tabs 11/27/23 01/04/24 Rx lisinopril 5 mg tablet (Zestril) 5 mg PO QAM #30 tabs 11/27/23 01/04/24 Rx Saccharomyces boulardii 250 mg 250 mg PO QAM 01/04/24 01/04/24 History capsule sodium chloride 0.65 % nasal spray 2 spray intranasal TID 01/04/24 01/04/24 History aerosol (Saline Nasal) wound dressings (Triad Wound 1 applic topical DAILY 01/04/24 01/04/24 History Dressing paste) potassium chloride 10 mEq 20 meq (2 x 10 mEq) PO DAILY #30 01/08/24 01/04/24 Rx tablet,extended release(part/cryst) tabs warfarin 1 mg tablet 3 mg PO DAILY@1600 04/21/24 History Allergies Allergy/AdvReac Type Severity Reaction Status Date / Time shellfish derived Allergy Severe ON [facility] Verified 04/21/24 13:21 [facility] ezetimibe [From Zetia] [facility] Verified 11/19/23 21:59 [facility] Sulfa (Sulfonamide All[facility] Verified 11/19/23 21:59 Antibiotics) [facility] MED LIST sulfamethoxazole [facility] Verified 11/19/23 21:59 [From Bactrim] [facility] MED LIST tramadol Allergy Unknown ON [facility] Verified 11/19/23 21:59 [facility] MED LIST trimethoprim [From Bactrim] [facility] Verified 11/19/23 21:59 [facility] MED LIST [facility] Allergy Unknown ON [facility] Uncoded 11/19/23 21:59 [facility] MED LIST Past Med/Surg History Problem List (Updated 06/21/24 @ 03:34 by Santos Kelly MD) Pressure ulcer of right buttock Pressure ulcer of left buttock Nephrolithiasis Acute UTI (Acute) Abdominal pain, acute, left lower quadrant (Acute) UTI (urinary tract infection) Palliative care by specialist Weakness generalized Carotid stenosis, bilateral Stroke H/O Spencer's palsy (Acute) Dementia (Acute) Acute left-sided weakness (Acute) Left-sided weakness Abdominal pain Palliative care encounter Adult failure to thrive (Acute) Hospice care patient (Acute) SIADH (syndrome of inappropriate ADH production) Dementia (Acute) AMS (altered mental status) Colovesical fistula (Acute) Rectovaginal fistula (Acute) Proctitis (Acute) Chronic hyponatremia Rectal bleeding Closed intertrochanteric fracture of left hip (Acute) Anemia (Acute) Acute hyponatremia (Acute) Spencer's palsy Osteoporosis Medical History Intertrochanteric fracture of right hip S/p left hip fracture Fall DVT prophylaxis History of breast cancer Hyperparathyroidism Lumbar spinal stenosis Pre-diabetes HTN (hypertension) Closed right hip fracture Surgical History Status post hip hemiarthroplasty Right History of partial mastectomy hx of dcis Family History Mother Alzheimer disease Father Heart disease Social History Smoking Status: Never smoker Second Hand Exposure: No; Do You Dip or Chew Tobacco: No; Hx Alcohol Use: No Hx Substance Use: No Preferred Language: Finnish Communication Ability: Effective Visual Impairment: Limited Hearing Ability: Normal Security Auditor Required: No Beliefs That Will Affect Care: None marital status: Current Living Situation: Alone Current Living Situation Comment: Living with family, daughter, son in law, grandson current occupational status: retired How many Children do You have: 2 Feels Safe at Home: Yes Diet Comment: Educated on increased protein, vitamin c, d and zinc Assistive Devices: Hospital Bed, Mechanical Lift and Wheelchair Physical Exam Vital Signs Vital Signs - 24 hr 06/21/24 00:57 06/21/24 01:14 06/21/24 01:15 Temperature 37.7 C H Temperature Source Oral Pulse Rate 116 H 108 H 108 H Pulse Rate from SpO2 Sensor 108 H Respiratory Rate 20 17 Respiratory Effort / Characteristics Non-Labored Respiratory Depth Normal Blood Pressure 184/115 H Blood Pressure Mean 138 Pulse Oximetry 93 94 Oxygen Delivery Method Room Air Sepsis Recent Fever Within 48 Hours Yes Sepsis New/Unexplained Change in Mental Status No Sepsis Action Taken by Nursing No Action Required 06/21/24 01:20 06/21/24 01:21 06/21/24 01:37 Temperature Temperature Source Pulse Rate 104 H Pulse Rate from SpO2 Sensor 104 H Respiratory Rate 20 Respiratory Effort / Characteristics Non-Labored Respiratory Depth Normal Blood Pressure Blood Pressure Mean Pulse Oximetry 92 Oxygen Delivery Method Room Air Sepsis Recent Fever Within 48 Hours Sepsis New/Unexplained Change in Mental Status Sepsis Action Taken by Nursing 06/21/24 01:45 06/21/24 01:51 06/21/24 02:22 Temperature Temperature Source Pulse Rate 98 H 106 H Pulse Rate from SpO2 Sensor 99 H Respiratory Rate 21 20 Respiratory Effort / Characteristics Non-Labored Respiratory Depth Normal Blood Pressure Blood Pressure Mean Pulse Oximetry 95 Oxygen Delivery Method Sepsis Recent Fever Within 48 Hours Sepsis New/Unexplained Change in Mental Status Sepsis Action Taken by Nursing 06/21/24 02:30 06/21/24 02:45 Temperature Temperature Source Pulse Rate Pulse Rate from SpO2 Sensor Respiratory Rate Respiratory Effort / Characteristics Non-Labored Non-Labored Respiratory Depth Normal Normal Blood Pressure Blood Pressure Mean Pulse Oximetry Oxygen Delivery Method Sepsis Recent Fever Within 48 Hours Sepsis New/Unexplained Change in Mental Status Sepsis Action Taken by Nursing Physical Exam HENT: Exam performed. - Head: Normocephalic and atraumatic. CV: Normal rate, regular rhythm, normal heart sounds and intact distal pulses. There is no peripheral edema. Palpable radial pulses bue. PULM/CHEST: Effort normal and breath sounds normal. No respiratory distress. No stridor. no wheezes. no rales. ABD: The abdomen is soft. There is tenderness to palpation of the left lower quadrant. NEURO: Left-sided weakness which is baseline for the patient. Course Course 0136: The patient was evaluated in room C11. A complete history and physical exam was performed Cardiac monitoring: An order was placed for continuous cardiac monitoring. The monitor shows a rate of 110 with sinus rhythm interpreted by me 0332: Vital signs stable. Labs show UTI. Patient treated with Rocephin. Imaging unremarkable. Patient will be admitted given her increased agitation and altered mental status with UTI. Dr. Olivier aware of patient. Medical Decision Making Laboratory Data Attestation: I reviewed the patient's lab results. 06/21/24 01:20 06/21/24 01:20 Lab Results 06/21/24 06/21/24 06/21/24 Range/Units 01:20 01:43 01:55 WBC 11.32 H (4.8-10.8) K/ul RBC 4.67 (4.20-5.40) M/uL Hgb 11.9 L (12.0-16.0) g/dl Hct 38.5 (37.0-47.0) % MCV 82.4 (80.0-100.0) fL MCH 25.5 (25.0-34.0) pg MCHC 30.9 L (32.0-36.0) g/dL RDW Std Deviation 40.7 (36.4-46.3) fL RDW Coeff of Tyesha 13.6 (11.5-14.5) % Plt Count 314 (130-400) K/uL MPV 9.7 (9.4-12.4) fL Immature Gran % (Auto) 0.3 % Neut % (Auto) 63.8 % Lymph % (Auto) 26.7 % [place] % (Auto) 7.7 % Eos % (Auto) 1.0 % Baso % (Auto) 0.5 % Neut # (Auto) 7.23 H (1.40-6.50) K/uL Lymph # (Auto) 3.02 (1.20-3.40) K/uL [place] # (Auto) 0.87 H (0.11-0.59) K/uL Eos # (Auto) 0.11 (0.00-0.50) K/uL Baso # (Auto) 0.06 (0.00-0.20) K/uL Immature Gran # (Auto) 0.03 (0.01-0.20) K/uL PT 19.4 H (9.0-12.0) Seconds INR 1.9 H (0.9-1.1) APTT 31 (21-31) Seconds PTT Ratio 1.2 Sodium 134 L (136-145) mmol/L Potassium 3.9 (3.5-5.1) mmol/L Chloride 102 (98-107) mmol/L Carbon Dioxide 22 (21-32) mmol/L Anion Gap 10 (3-11) BUN 20 (6-23) mg/dl Creatinine 0.80 (0.6-1.2) mg/dl Est Cr Clr Drug Dosing 38.8 ml/min Est GFR ( Amer) 77.9 ml/min Est GFR (Non-Af Amer) 67.2 ml/min BUN/Creatinine Ratio 25.0 H (10-20) Glucose 155 H (70-99(Fasting)) mg/dl Lactate 1.1 (0.4-2.0) mmol/L Calcium 9.9 (8.6-10.3) mg/dl Magnesium 1.8 (1.7-2.4) mg/dl Total Bilirubin 0.5 (0.2-1.0) mg/dl Direct Bilirubin 0.1 (0-0.2) mg/dl AST 15 (13-39) U/L ALT 7 (7-52) U/L Alkaline Phosphatase 112 H (34-104) U/L Troponin I High Sens 9.2 (0-14) pg/ml Total Protein 7.5 (6.0-8.3) gm/dl Albumin 4.0 (3.4-5.0) gm/dl Procalcitonin < 0.02 (0-0.5) ng/ml Urine Color Urine Appearance (Clear) Urine pH (4.5-7.5) Ur Specific [place] (1.000-1.030) Urine Protein (Negative) Urine Glucose (UA) (Negative) Urine Ketones (Negative) Urine Blood (Negative) Urine Nitrite (Negative) Urine Bilirubin (Negative) Urine Urobilinogen (Negative) Ur Leukocyte Esterase (Negative) Urine WBC (Auto) (0-5) /hpf Urine RBC (Auto) (0-2) /hpf U Hyaline Cast (Auto) (0-2) /lpf U Epithel Cells (Auto) (0-2) /hpf Urine Bacteria (Auto) (None Seen) SARS-CoV-2 (PCR) NEGATIVE (Negative) Influenza Type A (PCR) Negative (Neg) Influenza Type B (PCR) Negative (Neg) RSV (RT-PCR) Negative (Neg) 06/21/24 Range/Units 02:40 WBC (4.8-10.8) K/ul RBC (4.20-5.40) M/uL Hgb (12.0-16.0) g/dl Hct (37.0-47.0) % MCV (80.0-100.0) fL MCH (25.0-34.0) pg MCHC (32.0-36.0) g/dL RDW Std Deviation (36.4-46.3) fL RDW Coeff of Tyesha (11.5-14.5) % Plt Count (130-400) K/uL MPV (9.4-12.4) fL Immature Gran % (Auto) % Neut % (Auto) % Lymph % (Auto) % [place] % (Auto) % Eos % (Auto) % Baso % (Auto) % Neut # (Auto) (1.40-6.50) K/uL Lymph # (Auto) (1.20-3.40) K/uL [place] # (Auto) (0.11-0.59) K/uL Eos # (Auto) (0.00-0.50) K/uL Baso # (Auto) (0.00-0.20) K/uL Immature Gran # (Auto) (0.01-0.20) K/uL PT (9.0-12.0) Seconds INR (0.9-1.1) APTT (21-31) Seconds PTT Ratio Sodium (136-145) mmol/L Potassium (3.5-5.1) mmol/L Chloride (98-107) mmol/L Carbon Dioxide (21-32) mmol/L Anion Gap (3-11) BUN (6-23) mg/dl Creatinine (0.6-1.2) mg/dl Est Cr Clr Drug Dosing ml/min Est GFR ( Amer) ml/min Est GFR (Non-Af Amer) ml/min BUN/Creatinine Ratio (10-20) Glucose (70-99(Fasting)) mg/dl Lactate (0.4-2.0) mmol/L Calcium (8.6-10.3) mg/dl Magnesium (1.7-2.4) mg/dl Total Bilirubin (0.2-1.0) mg/dl Direct Bilirubin (0-0.2) mg/dl AST (13-39) U/L ALT (7-52) U/L Alkaline Phosphatase (34-104) U/L Troponin I High Sens (0-14) pg/ml Total Protein (6.0-8.3) gm/dl Albumin (3.4-5.0) gm/dl Procalcitonin (0-0.5) ng/ml Urine Color Yellow Urine Appearance Turbid A (Clear) Urine pH 6.5 (4.5-7.5) Ur Specific [place] 1.021 (1.000-1.030) Urine Protein 2+ H (Negative) Urine Glucose (UA) Negative (Negative) Urine Ketones 2+ H (Negative) Urine Blood 3+ H (Negative) Urine Nitrite Positive A (Negative) Urine Bilirubin Negative (Negative) Urine Urobilinogen Negative (Negative) Ur Leukocyte Esterase 3+ H (Negative) Urine WBC (Auto) >50 H (0-5) /hpf Urine RBC (Auto) 11-20 H (0-2) /hpf U Hyaline Cast (Auto) 0-2 (0-2) /lpf U Epithel Cells (Auto) 0-2 (0-2) /hpf Urine Bacteria (Auto) 4+ H (None Seen) SARS-CoV-2 (PCR) (Negative) Influenza Type A (PCR) (Neg) Influenza Type B (PCR) (Neg) RSV (RT-PCR) (Neg) Imaging Data Attestation: I personally reviewed and interpreted this imaging study as follows: My Impression: Chest x-ray: No significant change in the x-ray from November 2023. Radiologist's Impression: Abdomen/Pelvis CT 06/21/24 01:42 Exam(s): CT ABDOMEN + PELVIS Without Contrast EXAM: CT Abdomen and Pelvis Without Intravenous Contrast CLINICAL HISTORY: Reason for exam: abd pain LLQ. TECHNIQUE: Axial computed tomography images of the abdomen and pelvis without intravenous contrast. Automated exposure control was utilized for the study. A dose lowering technique was utilized adhering to the principles of ALARA. COMPARISON: 01/04/2024 FINDINGS: Exam is limited due to lack of contrast material. It is further limited due to artifact. Lung bases: There is scarring and/or atelectasis at the right lung base. ABDOMEN: Liver: Lucencies within the liver appear to represent unopacified blood vessels. Gallbladder and bile ducts: The patient is status post cholecystectomy.. No ductal dilation. Pancreas: The visualized portions of the pancreas, on this noncontrast study, are grossly unremarkable.. Spleen: No splenomegaly. Adrenals: No mass. Kidneys and ureters: The left renal calculi or hydronephrosis is noted. There is a 1.5 cm lucency in the left kidney. There are right renal calculi, the largest of which measures 7 mm in size. No evidence of hydronephrosis. Stomach and bowel: There is a small to moderate hiatal hernia. The stomach is relatively decompressed. There is air and stool noted in the colon. There is a very large amount of stool in the rectum. There are diverticula present on the colon. No significant inflammatory changes are noted.. PELVIS: Appendix: The appendix is not visualized.. Bladder: No calculi are noted within the bladder.. Reproductive: Unremarkable as visualized. ABDOMEN and PELVIS: Intraperitoneal space: No free air. No significant fluid collection. Bones/joints: The patient is status post right total hip replacement. There are postoperative changes involving the left femur. There are degenerative changes in the spine. There is a grade 1 spondylolisthesis of L4 on L5. There is a marked compression fracture of the T12 vertebral body.. Soft tissues: Unremarkable. Vasculature: There are atherosclerotic changes. No abdominal aortic aneurysm. Lymph nodes: No enlarged lymph nodes. IMPRESSION: Limited exam. There are right renal calculi without evidence of hydronephrosis. There is a possible left renal cyst. Status post cholecystectomy. Diverticulosis. There is a small to moderate hiatal hernia. There is a very large amount of stool in the rectum. This may represent a fecal impaction. See discussion above There is a marked compression fracture of the T12 vertebral body.. This is of undetermined age. Electronically signed by: Baldemar Jc MD 06/21/24 03:[address] 06/21/24 01:42 Exam(s): CT HEAD Without Contrast EXAM: CT Head Without Intravenous Contrast CLINICAL HISTORY: Reason for exam: ams. TECHNIQUE: Axial computed tomography images of the head/brain without intravenous contrast. Automated exposure control was utilized for the study. A dose lowering technique was utilized adhering to the principles of ALARA. COMPARISON: 12/05/2023. FINDINGS: Brain: No acute intracranial hemorrhage. There is decreased attenuation within the white matter. There is an old right basal ganglia infarct.. Ventricles: There is prominence of the ventricular system with deepening the sulci consistent with cortical and central atrophy.. Bones/joints: Unremarkable. No acute fracture. Soft tissues: Unremarkable. Sinuses: Unremarkable as visualized. No acute sinusitis. Mastoid air cells: Unremarkable as visualized. No mastoid effusion. IMPRESSION: Atrophy. Nonspecific white matter disease. There is an old right basal ganglia infarct. If further evaluation is clinically necessary, consider correlation with MRI. Electronically signed by: Baldemar Jc MD 06/21/24 03:16 AM ECG Data Attestation: I personally reviewed and interpreted this ECG as follows: Rate (beats per minute): 110 Rhythm: + normal sinus ECG Intervals/blocks: + Normal DC and + Normal QT-c ECG ST segments: + Normal ST segments Additional Comments: QRS 68 MDM Narrative 0136: The patient was evaluated in room C11. A complete history and physical exam was performed Cardiac monitoring: An order was placed for continuous cardiac monitoring. The monitor shows a rate of 110 with sinus rhythm interpreted by me 0332: Vital signs stable. Labs show UTI. Patient treated with Rocephin. Imaging unremarkable. Patient will be admitted given her increased agitation and altered mental status with UTI. Dr. Olivier aware of patient. Impression & Plan Acute UTI Discharge Plan Visit Data Chief Complaint: Illness Stated Complaint: Confusion, Dizziness ED Provider: Santos Kelly Discharge Problem: Acute UTI Patient Disposition: Being Evaluated by Hospitalist Forms Stand Alone Forms: My [facility] Prescriptions Prescriptions: No Action warfarin 1 mg tablet 3 mg PO DAILY@1600 Rx Instructions: Take 4 mg 1 dose today January 08, 2024, Then dose Coumadin accordingly based on INR. loratadine [Claritin] 10 mg Tablet 10 mg PO QAM polyethylene glycol 3350 [Miralax] 17 gram Powder In Packet 17 g PO BID Qty: 14 0RF sertraline 25 mg Tablet 25 mg PO DAILY mirtazapine 15 mg Tablet 7.5 mg PO HS acetaminophen [Tylenol] 325 mg Tablet 650 mg PO Q4H PRN (Reason: PAIN/FEVER>100) omeprazole 20 mg Capsule,Delayed Release(Dr/Ec) 20 mg PO DAILY Artificial Tears (cmc) 1 % Drops 2 drp OPL TID docusate sodium 100 mg capsule 100 mg PO QAM atorvastatin 40 mg Tablet 40 mg PO QAM Qty: 30 0RF lisinopril [Zestril] 5 mg Tablet 5 mg PO QAM Qty: 30 0RF aspirin 81 mg Tablet,Delayed Release (Dr/Ec) 81 mg PO QAM Qty: 30 0RF Triad Wound Dressing Paste 1 applic TOPICAL DAILY Rx Instructions: every shift for wound care Saline Nasal 0.65 % Aerosol,[place] 2 spray INTRANASAL TID Rx Instructions: while awake Saccharomyces boulardii 250 mg Capsule 250 mg PO QAM potassium chloride 10 mEq tablet,ER particles/crystals 20 meq PO DAILY Qty: 30 0RF Referrals Referrals: Angie Perez MD [Primary Care Provider] -
[2024-06-21 02:28] LABS: Influenza A virus by PCR Negative (Neg); Influenza B virus by PCR Negative (Neg); RSV by PCR Negative (Neg); SARS CoV2 RNA(COVID-19) Ceph NEGATIVE (Negative)
[2024-06-21 02:46] LABS: INR 1.9 (0.9-1.1); Partial Thromboplastin Ratio 1.2; Partial Thromboplastin Time 31 Seconds (21-31); Prothrombin Time 19.4 Seconds (9.0-12.0)
[2024-06-21 03:08] LABS: Appearance Urine Turbid (Clear); Bacteria Urine Automated 4+ (None Seen); Bilirubin Urine Negative (Negative); Blood Urine 3+ (Negative); Cast Urine Automated 0-2 /lpf (0-2); Color Urine Yellow; Epithelial Cell Urine Auto 0-2 /hpf (0-2); Glucose Urine UA Negative (Negative); Ketones Urine 2+ (Negative); Leukocyte Esterase Urine 3+ (Negative); Nitrite Urine Positive (Negative); Protein Urine 2+ (Negative); Specific Gravity Urine 1.021 (1.000-1.030); Urobilinogen Urine Negative (Negative); WBC Urine Automated >50 /hpf (0-5); pH Urine 6.5 (4.5-7.5)
--- NOTE | 2024-06-21 03:17 | CT Scan Report ---
Exam(s): CT HEAD Without Contrast EXAM: CT Head Without Intravenous Contrast CLINICAL HISTORY: Reason for exam: ams. TECHNIQUE: Axial computed tomography images of the head/brain without intravenous contrast. Automated exposure control was utilized for the study. A dose lowering technique was utilized adhering to the principles of ALARA. COMPARISON: 12/05/2023. FINDINGS: Brain: No acute intracranial hemorrhage. There is decreased attenuation within the white matter. There is an old right basal ganglia infarct.. Ventricles: There is prominence of the ventricular system with deepening the sulci consistent with cortical and central atrophy.. Bones/joints: Unremarkable. No acute fracture. Soft tissues: Unremarkable. Sinuses: Unremarkable as visualized. No acute sinusitis. Mastoid air cells: Unremarkable as visualized. No mastoid effusion. IMPRESSION: Atrophy. Nonspecific white matter disease. There is an old right basal ganglia infarct. If further evaluation is clinically necessary, consider correlation with MRI. Electronically signed by: Baldemar Jc MD 06/21/24 03:16 AM
--- NOTE | 2024-06-21 03:27 | CT Scan Report ---
Exam(s): CT ABDOMEN + PELVIS Without Contrast EXAM: CT Abdomen and Pelvis Without Intravenous Contrast CLINICAL HISTORY: Reason for exam: abd pain LLQ. TECHNIQUE: Axial computed tomography images of the abdomen and pelvis without intravenous contrast. Automated exposure control was utilized for the study. A dose lowering technique was utilized adhering to the principles of ALARA. COMPARISON: 01/04/2024 FINDINGS: Exam is limited due to lack of contrast material. It is further limited due to artifact. Lung bases: There is scarring and/or atelectasis at the right lung base. ABDOMEN: Liver: Lucencies within the liver appear to represent unopacified blood vessels. Gallbladder and bile ducts: The patient is status post cholecystectomy.. No ductal dilation. Pancreas: The visualized portions of the pancreas, on this noncontrast study, are grossly unremarkable.. Spleen: No splenomegaly. Adrenals: No mass. Kidneys and ureters: The left renal calculi or hydronephrosis is noted. There is a 1.5 cm lucency in the left kidney. There are right renal calculi, the largest of which measures 7 mm in size. No evidence of hydronephrosis. Stomach and bowel: There is a small to moderate hiatal hernia. The stomach is relatively decompressed. There is air and stool noted in the colon. There is a very large amount of stool in the rectum. There are diverticula present on the colon. No significant inflammatory changes are noted.. PELVIS: Appendix: The appendix is not visualized.. Bladder: No calculi are noted within the bladder.. Reproductive: Unremarkable as visualized. ABDOMEN and PELVIS: Intraperitoneal space: No free air. No significant fluid collection. Bones/joints: The patient is status post right total hip replacement. There are postoperative changes involving the left femur. There are degenerative changes in the spine. There is a grade 1 spondylolisthesis of L4 on L5. There is a marked compression fracture of the T12 vertebral body.. Soft tissues: Unremarkable. Vasculature: There are atherosclerotic changes. No abdominal aortic aneurysm. Lymph nodes: No enlarged lymph nodes. IMPRESSION: Limited exam. There are right renal calculi without evidence of hydronephrosis. There is a possible left renal cyst. Status post cholecystectomy. Diverticulosis. There is a small to moderate hiatal hernia. There is a very large amount of stool in the rectum. This may represent a fecal impaction. See discussion above There is a marked compression fracture of the T12 vertebral body.. This is of undetermined age. Electronically signed by: Baldemar Jc MD 06/21/24 03:26 AM
[2024-06-21] MEDS: cefTRIAXone SODIUM 2,000 MG/50 ML BAG IV STA (03:50)
--- NOTE | 2024-06-21 06:12 | History & Physical Report ---
Date of Service June 21, 2024 Assessment & Plan (1) Acute UTI: Plan: 83-year-old female with past medical history significant for SIADH, seasonal allergic rhinitis, history of acute DVT, hypertension, slow transit constipation, history of closed stable burst fracture of T12 vertebra, spondylolisthesis of lumbar region, senile osteoporosis, history of closed avulsion fracture of greater trochanter of femur on the right side, Spencer's palsy, senile dementia, hemiplegia and hemiparesis on the left nondominant side following stroke, depression was brought in because of confusion and agitation and found to UTI. Patient daughter brought her to the hospital. Currently daughter is not in the hospital. Not able to reach the daughter. Currently patient is alert and awake and oriented to name and place. Seems pleasant. Patient states she lives with her . Denies any headache. Denies any runny nose or sore throat. Denies cough. Denies chest pain. Denies shortness of breath. Denies nausea. Denies abdominal pain. States she ambulates without support. Says micturating okay. Currently hemodynamics are okay.Could tell her name. Could tell her date of . Knows she is in the hospital. Could not tell current dates. Acute UTI Confusion-CT head okay Confusion mostly from UTI Started on Rocephin Gentle fluids Will follow the cultures Monitor in the hospital History of SIADH Sodium 135 Follow repeat labs History of DVT On Eliquis Constipation CT abdomen pelvis showing large amount of stool in the rectum Soapsuds enema MiraLAX T12 compression fracture seems old Sacral pressure ulcer Erythematous rash in sacral region Possible fungal infection Short course of Diflucan Nystatin cream Will monitor History of CVA Aspirin statin and Eliquis wheel chair bound Depression On Remeron and Zoloft GERD Omeprazole Hypertension On lisinopril Hyperlipidemia Statin DVT prophylaxis On Eliquis Disposition Med/telemetry Full code for now History of Present Illness Chief Complaint: Confusion and UTI Primary Care Provider: Angie Perez MD 83-year-old female with past medical history significant for SIADH, seasonal allergic rhinitis, history of acute DVT, hypertension, slow transit constipation, history of closed stable burst fracture of T12 vertebra, spondyl olisthesis of lumbar region, senile osteoporosis, history of closed avulsion fracture of greater trochanter of femur on the right side, Spencer's palsy, senile dementia, hemiplegia and hemiparesis on the left nondominant side following stroke, depression was brought in because of confusion and agitation and found to UTI. Patient daughter brought her to the hospital. Currently daughter is not in the hospital. Later was able to talk to daughter on phone.. Currently patient is alert and awake and oriented to name and place. Seems pleasant. Patient states she lives with her but when checked with daughter later that was about one year ago and currently she is living with daughter. Denies any headache. Denies any runny nose or sore throat. Denies cough. Denies chest pain. Denies shortness of breath. Denies nausea. Denies abdominal pain. States she ambulates without support but per daughter she is wheel chair bound for last few years. Says micturating okay. Currently hemodynamics are okay.Could tell her name. Could tell her date of . Knows she is in the hospital. Could not tell current dates.As per daughter she was very anxious and couldn't calm down that the reason patient was brought to the hospital. No fevers or any complaints of pain per daughter. No Nausea/vomitings per daughter. CAn mostly eat anything per daughter but she tries to keep somewhat soft. Past medical history. As mentioned above Past surgical history. Left partial mastectomy. Right hemiarthroplasty partial. Left hip fracture repair Social history. . No smoking. Alcohol occasional. No drug use. Family history. Mother had Alzheimer's disease. Hypertension. Paternal aunt had breast cancer. Paternal grandmother had diabetes. Brother had heart disorder. Father had hypertension and heart disorder. Allergies Allergy/AdvReac Type Severity Reaction Status Date / Time shellfish derived Allergy Severe ON [facility] [place] Verified 04/21/24 13:21 [facility] MED LIST ezetimibe [From Zetia] Allergy Unknown ON [facility] [place] Verified 11/19/23 21:59 [facility] MED LIST Sulfa (Sulfonamide Allergy Unknown ON [facility] [place] Verified 11/19/23 21:59 Antibiotics) [facility] MED LIST sulfamethoxazole Allergy Unknown ON [facility] [place] Verified 11/19/23 21:59 [From Bactrim] [facility] MED LIST tramadol Allergy Unknown ON [facility] [place] Verified 11/19/23 21:59 [facility] MED LIST trimethoprim [From Bactrim] Allergy Unknown ON [facility] [place] Verified 11/19/23 21:59 [facility] MED LIST [facility] Allergy Unknown ON [place] Uncoded 11/19/23 21:59 [facility] MED LIST Home Medications Medication Instructions Recorded Confirmed Type apixaban 2.5 mg tablet (Eliquis) 2.5 mg PO BID 06/21/24 06/21/24 History aspirin 81 mg tablet,delayed 81 mg PO DAILY 06/21/24 06/21/24 History release atorvastatin 40 mg tablet 40 mg PO DAILY 06/21/24 06/21/24 History lisinopril 5 mg tablet 5 mg PO DAILY 06/21/24 06/21/24 History loratadine 10 mg tablet 10 mg PO DAILY 06/21/24 06/21/24 History mirtazapine 15 mg tablet 7.5 mg PO HS 06/21/24 06/21/24 History mometasone 50 mcg/actuation nasal 2 spray intranasal DAILY 06/21/24 06/21/24 History spray omeprazole 20 mg capsule,delayed 20 mg PO DAILY 06/21/24 06/21/24 History release potassium chloride 10 mEq 20 meq PO DAILY 06/21/24 06/21/24 History tablet,extended release(part/cryst) sertraline 25 mg tablet 25 mg PO DAILY 06/21/24 06/21/24 History Past Med/Surg History Problem List (Updated 06/21/24 @ 03:34 by Santos Kelly MD) Pressure ulcer of right buttock Pressure ulcer of left buttock Nephrolithiasis Acute UTI (Acute) Abdominal pain, acute, left lower quadrant (Acute) UTI (urinary tract infection) Palliative care by specialist Weakness generalized Carotid stenosis, bilateral Stroke H/O Spencer's palsy (Acute) Dementia (Acute) Acute left-sided weakness (Acute) Left-sided weakness Abdominal pain Palliative care encounter Adult failure to thrive (Acute) Hospice care patient (Acute) SIADH (syndrome of inappropriate ADH production) Dementia (Acute) AMS (altered mental status) Colovesical fistula (Acute) Rectovaginal fistula (Acute) Proctitis (Acute) Chronic hyponatremia Rectal bleeding Closed intertrochanteric fracture of left hip (Acute) Anemia (Acute) Acute hyponatremia (Acute) Spencer's palsy Osteoporosis Medical History Intertrochanteric fracture of right hip S/p left hip fracture Fall DVT prophylaxis History of breast cancer Hyperparathyroidism Lumbar spinal stenosis Pre-diabetes HTN (hypertension) Closed right hip fracture Surgical History Status post hip hemiarthroplasty Right History of partial mastectomy hx of dcis Family History Mother Alzheimer disease Father Heart disease Social History Smoking Status: Never smoker Second Hand Exposure: No; Do You Dip or Chew Tobacco: No; Hx Alcohol Use: No Hx Substance Use: No Preferred Language: Upper Sorbian Communication Ability: Effective Visual Impairment: Limited Hearing Ability: Normal Dispute Specialist Required: No Beliefs That Will Affect Care: None marital status: Current Living Situation: Alone Current Living Situation Comment: Living with family, daughter, son in law, grandson current occupational status: retired How many Children do You have: 2 Feels Safe at Home: Yes Diet Comment: Educated on increased protein, vitamin c, d and zinc Assistive Devices: Hospital Bed, Mechanical Lift and Wheelchair Review of Systems Review of Systems: All systems reviewed & are unremarkable except as noted in HPI & below Physical Exam Physical Exam: General- Not in distress Head- atraumatic Eyes- PERRL. ENT- oropharynx dry Neck- supple, no JVD. Lungs- clear to auscultation no wheezing or crackles Heart- regular rhythm; no murmur, no gallop. Abdomen- normal bowel sounds, soft, nontender, no distension Extremities- no pretibial edema, no erythema seen Neuro- alert, oriented x 2; PERRL, no facial palsy; no dysarthria; moves extremities. Skin- Erythematous rash seen in Sacral and perineal region Results & Data Results & Data Vital Signs (Past 12 Hours) Vital Signs Temp Pulse Pulse Resp BP BP Pulse Ox 06/21/24 06:00 96 H 20 167/101 H 98 06/21/24 05:10 112 H 06/21/24 04:30 96 H 20 163/101 H 98 06/21/24 04:00 87 20 178/104 H 98 06/21/24 03:49 36.6 C 86 16 173/98 H 96 06/21/24 03:32 84 16 189/117 H 96 06/21/24 03:00 82 16 128/76 96 06/21/24 01:51 106 H 20 06/21/24 01:45 98 H 21 95 06/21/24 01:37 06/21/24 01:21 104 H 20 92 06/21/24 01:15 108 H 17 94 06/21/24 01:14 108 H 06/21/24 00:57 37.7 C H 116 H 20 184/115 H 93 O2 Del Method 06/21/24 06:00 Room Air 06/21/24 05:10 06/21/24 04:30 Room Air 06/21/24 04:00 Room Air 06/21/24 03:49 Room Air 06/21/24 03:32 Room Air 06/21/24 03:00 Room Air 06/21/24 01:51 06/21/24 01:45 06/21/24 01:37 Room Air 06/21/24 01:21 06/21/24 01:15 06/21/24 01:14 06/21/24 00:57 Room Air Diagnostic Findings Laboratory Results WBC 11.32 K/ul (4.8-10.8) H 06/21/24 01:20 RBC 4.67 M/uL (4.20-5.40) 06/21/24 01:20 Hgb 11.9 g/dl (12.0-16.0) L 06/21/24 01:20 Hct 38.5 % (37.0-47.0) 06/21/24 01:20 MCV 82.4 fL (80.0-100.0) 06/21/24 01:20 MCH 25.5 pg (25.0-34.0) 06/21/24 01:20 MCHC 30.9 g/dL (32.0-36.0) L 06/21/24 01:20 RDW Std Deviation 40.7 fL (36.4-46.3) 06/21/24 01:20 RDW Coeff of Tyesha 13.6 % (11.5-14.5) 06/21/24 01:20 Plt Count 314 K/uL (130-400) 06/21/24 01:20 MPV 9.7 fL (9.4-12.4) 06/21/24 01:20 Immature Gran % (Auto) 0.3 % 06/21/24 01:20 Neut % (Auto) 63.8 % 06/21/24 01:20 Lymph % (Auto) 26.7 % 06/21/24 01:20 Rankin % (Auto) 7.7 % 06/21/24 01:20 Eos % (Auto) 1.0 % 06/21/24 01:20 Baso % (Auto) 0.5 % 06/21/24 01:20 Neut # (Auto) 7.23 K/uL (1.40-6.50) H 06/21/24 01:20 Lymph # (Auto) 3.02 K/uL (1.20-3.40) 06/21/24 01:20 Rankin # (Auto) 0.87 K/uL (0.11-0.59) H 06/21/24 01:20 Eos # (Auto) 0.11 K/uL (0.00-0.50) 06/21/24 01:20 Baso # (Auto) 0.06 K/uL (0.00-0.20) 06/21/24 01:20 Immature Gran # (Auto) 0.03 K/uL (0.01-0.20) 06/21/24 01:20 PT 19.4 Seconds (9.0-12.0) H 06/21/24 01:20 INR 1.9 (0.9-1.1) H 06/21/24 01:20 APTT 31 Seconds (21-31) 06/21/24 01:20 PTT Ratio 1.2 06/21/24 01:20 Sodium 134 mmol/L (136-145) L 06/21/24 01:20 Potassium 3.9 mmol/L (3.5-5.1) 06/21/24 01:20 Chloride 102 mmol/L (98-107) 06/21/24 01:20 Carbon Dioxide 22 mmol/L (21-32) 06/21/24 01:20 Anion Gap 10 (3-11) 06/21/24 01:20 BUN 20 mg/dl (6-23) 06/21/24 01:20 Creatinine 0.80 mg/dl (0.6-1.2) 06/21/24 01:20 Est Cr Clr Drug Dosing 38.8 ml/min 06/21/24 01:20 Est GFR ( Amer) 77.9 ml/min 06/21/24 01:20 Est GFR (Non-Af Amer) 67.2 ml/min 06/21/24 01:20 BUN/Creatinine Ratio 25.0 (10-20) H 06/21/24 01:20 Glucose 155 mg/dl (70-99(Fasting)) H 06/21/24 01:20 Lactate 1.1 mmol/L (0.4-2.0) 06/21/24 01:55 Calcium 9.9 mg/dl (8.6-10.3) 06/21/24 01:20 Magnesium 1.8 mg/dl (1.7-2.4) 06/21/24 01:20 Total Bilirubin 0.5 mg/dl (0.2-1.0) 06/21/24 01:20 Direct Bilirubin 0.1 mg/dl (0-0.2) 06/21/24 01:20 AST 15 U/L (13-39) 06/21/24 01:20 ALT 7 U/L (7-52) 06/21/24 01:20 Alkaline Phosphatase 112 U/L (34-104) H 06/21/24 01:20 Troponin I High Sens 9.2 pg/ml (0-14) 06/21/24 01:20 Total Protein 7.5 gm/dl (6.0-8.3) 06/21/24 01:20 Albumin 4.0 gm/dl (3.4-5.0) 06/21/24 01:20 Procalcitonin < 0.02 ng/ml (0-0.5) 06/21/24 01:20 Urine Color Yellow 06/21/24 02:40 Urine Appearance Turbid (Clear) A 06/21/24 02:40 Urine pH 6.5 (4.5-7.5) 06/21/24 02:40 Ur Specific [place] 1.021 (1.000-1.030) 06/21/24 02:40 Urine Protein 2+ (Negative) H 06/21/24 02:40 Urine Glucose (UA) Negative (Negative) 06/21/24 02:40 Urine Ketones 2+ (Negative) H 06/21/24 02:40 Urine Blood 3+ (Negative) H 06/21/24 02:40 Urine Nitrite Positive (Negative) A 06/21/24 02:40 Urine Bilirubin Negative (Negative) 06/21/24 02:40 Urine Urobilinogen Negative (Negative) 06/21/24 02:40 Ur Leukocyte Esterase 3+ (Negative) H 06/21/24 02:40 Urine WBC (Auto) >50 /hpf (0-5) H 06/21/24 02:40 Urine RBC (Auto) 11-20 /hpf (0-2) H 06/21/24 02:40 U Hyaline Cast (Auto) 0-2 /lpf (0-2) 06/21/24 02:40 U Epithel Cells (Auto) 0-2 /hpf (0-2) 06/21/24 02:40 Urine Bacteria (Auto) 4+ (None Seen) H 06/21/24 02:40 SARS-CoV-2 (PCR) NEGATIVE (Negative) 06/21/24 01:43 Influenza Type A (PCR) Negative (Neg) 06/21/24 01:43 Influenza Type B (PCR) Negative (Neg) 06/21/24 01:43 RSV (RT-PCR) Negative (Neg) 06/21/24 01:43 Impressions Abdomen/Pelvis CT 06/21/24 01:42 Exam(s): CT ABDOMEN + PELVIS Without Contrast EXAM: CT Abdomen and Pelvis Without Intravenous Contrast CLINICAL HISTORY: Reason for exam: abd pain LLQ. TECHNIQUE: Axial computed tomography images of the abdomen and pelvis without intravenous contrast. Automated exposure control was utilized for the study. A dose lowering technique was utilized adhering to the principles of ALARA. COMPARISON: 01/04/2024 FINDINGS: Exam is limited due to lack of contrast material. It is further limited due to artifact. Lung bases: There is scarring and/or atelectasis at the right lung base. ABDOMEN: Liver: Lucencies within the liver appear to represent unopacified blood vessels. Gallbladder and bile ducts: The patient is status post cholecystectomy.. No ductal dilation. Pancreas: The visualized portions of the pancreas, on this noncontrast study, are grossly unremarkable.. Spleen: No splenomegaly. Adrenals: No mass. Kidneys and ureters: The left renal calculi or hydronephrosis is noted. There is a 1.5 cm lucency in the left kidney. There are right renal calculi, the largest of which measures 7 mm in size. No evidence of hydronephrosis. Stomach and bowel: There is a small to moderate hiatal hernia. The stomach is relatively decompressed. There is air and stool noted in the colon. There is a very large amount of stool in the rectum. There are diverticula present on the colon. No significant inflammatory changes are noted.. PELVIS: Appendix: The appendix is not visualized.. Bladder: No calculi are noted within the bladder.. Reproductive: Unremarkable as visualized. ABDOMEN and PELVIS: Intraperitoneal space: No free air. No significant fluid collection. Bones/joints: The patient is status post right total hip replacement. There are postoperative changes involving the left femur. There are degenerative changes in the spine. There is a grade 1 spondylolisthesis of L4 on L5. There is a marked compression fracture of the T12 vertebral body.. Soft tissues: Unremarkable. Vasculature: There are atherosclerotic changes. No abdominal aortic aneurysm. Lymph nodes: No enlarged lymph nodes. IMPRESSION: Limited exam. There are right renal calculi without evidence of hydronephrosis. There is a possible left renal cyst. Status post cholecystectomy. Diverticulosis. There is a small to moderate hiatal hernia. There is a very large amount of stool in the rectum. This may represent a fecal impaction. See discussion above There is a marked compression fracture of the T12 vertebral body.. This is of undetermined age. Electronically signed by: Baldemar Jc MD 06/21/24 03:[address] 06/21/24 01:42 Exam(s): CT HEAD Without Contrast EXAM: CT Head Without Intravenous Contrast CLINICAL HISTORY: Reason for exam: ams. TECHNIQUE: Axial computed tomography images of the head/brain without intravenous contrast. Automated exposure control was utilized for the study. A dose lowering technique was utilized adhering to the principles of ALARA. COMPARISON: 12/05/2023. FINDINGS: Brain: No acute intracranial hemorrhage. There is decreased attenuation within the white matter. There is an old right basal ganglia infarct.. Ventricles: There is prominence of the ventricular system with deepening the sulci consistent with cortical and central atrophy.. Bones/joints: Unremarkable. No acute fracture. Soft tissues: Unremarkable. Sinuses: Unremarkable as visualized. No acute sinusitis. Mastoid air cells: Unremarkable as visualized. No mastoid effusion. IMPRESSION: Atrophy. Nonspecific white matter disease. There is an old right basal ganglia infarct. If further evaluation is clinically necessary, consider correlation with MRI. Electronically signed by: Baldemar Jc MD 06/21/24 03:16 AM ECG Additional Comments: ECG. Sinus tachycardia 110. Possible left atrial enlargement. Nonspecific ST abnormality. No significant change was found. QTc 452 Code Status & VTE Plan VTE Prophylaxis Plan VTE Prophylaxis will be ordered: Yes
[2024-06-21] MEDS ORDERED: NITROGLYCERIN SL 0.4 MG/TAB TAB SL PRN (08:22)
[2024-06-21] MEDS ORDERED: POLYETHYLENE (MIRALAX) 17 GM PACK PO PRN (08:22)
--- NOTE | 2024-06-21 08:41 | XRay Report ---
XR chest 1V portable CLINICAL HISTORY: Sepsis TECHNIQUE: Single frontal radiograph of the chest was obtained. Comparison: Comparison is made to chest radiograph 11/24/2023 FINDINGS: No lines and tubes are seen. Calcified aortic knob is seen. Elevation of the right hemidiaphragm is a gain seen. No evidence of pleural effusion or pneumothorax. IMPRESSION: No acute abnormalities and in particular no radiographic evidence of pneumonia. ACT 112: Negative or not required by law. Electronically signed by: Hans Benitez M.D. 06/21/2024 8:40 AM
[2024-06-21 09:04] LABS: Basophils # (auto) 0.04 K/uL (0.00-0.20); Basophils % (auto) 0.4 %; Eosinophils # (auto) 0.02 K/uL (0.00-0.50); Eosinophils % (auto) 0.2 %; Hematocrit (blood only) 37.4 % (37.0-47.0); Immature Granulocytes # (auto) 0.03 K/uL (0.01-0.20); Immature Granulocytes % (auto) 0.3 %; Lymphocytes # (auto) 1.29 K/uL (1.20-3.40); Mean Corpuscular Hemoglobin 25.9 pg (25.0-34.0); Mean Corpuscular Hgb Conc 32.1 g/dL (32.0-36.0); Mean Corpuscular Volume 80.6 fL (80.0-100.0); Mean Platelet Volume 9.4 fL (9.4-12.4); Monocytes # (auto) 0.67 K/uL (0.11-0.59); Monocytes % (auto) 6.7 %; Neutrophils # (auto) 7.89 K/uL (1.40-6.50); Neutrophils % (auto) 79.4 %; Platelet Count 290 K/uL (130-400); RDW Coefficient of Variation 13.5 % (11.5-14.5); RDW Standard Deviation 39.5 fL (36.4-46.3); Red Blood Count 4.64 M/uL (4.20-5.40); White Blood Count 9.94 K/ul (4.8-10.8)
[2024-06-21 09:17] LABS: BUN Creatinine Ratio 25.7 (10-20); Creatinine Clr Calc Pharmacy 44.3 ml/min; Est GFR (African American) 91.6 ml/min; Magnesium 1.7 mg/dl (1.7-2.4)
[2024-06-21] MEDS: ATORVASTATIN 40 MG TAB PO SCH (10:27)
[2024-06-21] MEDS: FLUTICASONE PROPIONATE NA SPR 16 GM BTL SCH (10:27)
[2024-06-21] MEDS: ASPIRIN 81 MG ECTAB PO SCH (10:27)
[2024-06-21] MEDS: FLUCONAZOLE 100 MG TAB PO SCH (10:27)
[2024-06-21] MEDS: APIXABAN 2.5 MG TAB PO SCH (10:27)
[2024-06-21] MEDS: NYSTATIN OINT 15 GM TUBE EXT SCH (10:28)
[2024-06-21] MEDS: PANTOprazole 40 MG TAB PO SCH (10:28)
[2024-06-21] MEDS: LORATADINE 10 MG TAB PO SCH (10:28)
[2024-06-21] MEDS: POLYETHYLENE (MIRALAX) 17 GM PACK PO SCH (10:29)
[2024-06-21] MEDS: lisinopril 20 MG TAB PO SCH (10:29)
[2024-06-21] MEDS: SERTRALINE HCL 50 MG TABLET PO SCH (10:29)
[2024-06-21] MEDS: POTASSIUM CHLORIDE CRTAB 20 MEQ TABCR PO SCH (10:30)
[2024-06-21] MEDS: lisinopril 5 MG TAB PO SCH (10:43)
[2024-06-21] MEDS: SODIUM CHLORIDE 0.9% 1,000 ML IV SCH (11:48)
--- NOTE | 2024-06-21 13:19 | Hospitalist Progress Note ---
Date of Service June 21, 2024 Assessment & Plan (1) Acute UTI: (2) Metabolic encephalopathy: (3) Delirium superimposed on dementia: (4) Fecal impaction in rectum: (5) Hypertension, uncontrolled: Plan Patient mated to the hospital this morning with acute delirium in the setting of dementia most likely due to urinary tract infection. Blood pressures also been elevated and imaging is consistent with fecal impaction Continue Rocephin for urinary tract infection Increase lisinopril for blood pressure control Soapsuds enema for impaction Monitor cultures Therapies and care management for assistance and discharge planning [facility] Attempted to contact daughter, no answer on phone Admission and Anticipated Discharge Date Admission Date: June 21, 2024 Subjective Patient's mentation seems to be improved. Able to answer questions appropriately Physical Exam Physical Exam: Constitutional: Alert HEENT: Mucous membranes moist. Lungs: Clear to auscultation, decreased, no wheezes rales or rhonchi CV: S1-S2, regular Abdomen: Soft, nontender, nondistended Extremities: No significant edema Neuro: No focal deficits, generalized weakness Psych: Cooperative, normal mood Results & Data Results & Data Vital Signs (Past 12 Hours) Vital Signs Temp Pulse Pulse Resp BP BP Pulse Ox 06/21/24 12:02 107 H 06/21/24 11:18 36.7 C 98 H 18 163/89 H 96 06/21/24 06:00 96 H 20 167/101 H 98 06/21/24 05:10 112 H 06/21/24 04:30 96 H 20 163/101 H 98 06/21/24 04:00 87 20 178/104 H 98 06/21/24 03:49 36.6 C 86 16 173/98 H 96 06/21/24 03:32 84 16 189/117 H 96 06/21/24 03:00 82 16 128/76 96 06/21/24 01:51 106 H 20 06/21/24 01:45 98 H 21 95 06/21/24 01:37 06/21/24 01:21 104 H 20 92 06/21/24 01:15 108 H 17 94 O2 Del Method 06/21/24 12:02 06/21/24 11:18 Room Air 06/21/24 06:00 Room Air 06/21/24 05:10 06/21/24 04:30 Room Air 06/21/24 04:00 Room Air 06/21/24 03:49 Room Air 06/21/24 03:32 Room Air 06/21/24 03:00 Room Air 06/21/24 01:51 06/21/24 01:45 06/21/24 01:37 Room Air 06/21/24 01:21 06/21/24 01:15 Diagnostic Findings Reviewed imaging, laboratory and diagnostic studies. Pertinent findings as below.
[2024-06-21] MEDS: MIRTAZAPINE TAB 15 MG TAB PO SCH (20:10)
[2024-06-22] MEDS: ACETAMINOPHEN 325 MG TAB PO PRN (05:58)
[2024-06-22] MEDS: cefTRIAXone SODIUM 2,000 MG/50 ML BAG IV SCH (05:59)
[2024-06-22 07:48] LABS: BUN Creatinine Ratio 21.5 (10-20); Calcium 9.7 mg/dl (8.6-10.3); Creatinine Clr Calc Pharmacy 33.4 ml/min; Potassium 4.3 mmol/L (3.5-5.1)
[2024-06-22 12:10] LABS: iSTAT Creatinine 0.8 mg/dl (0.6-1.3); iSTAT Hemoglobin 12.9 g/dl (12.0-16.0); iSTAT Ionized Calcium 1.26 mmol/l (1.12-1.32); iSTAT Potassium 3.9 mmol/L (3.3-5.0)
--- NOTE | 2024-06-22 16:11 | Hospitalist Progress Note ---
<Statement entered by Kris Grey, - 06/22/24 16:37> I have seen and examined the patient and have discussed the case with the provider above. I have reviewed the advanced practitioner's documentation, and I agree with, and take responsibility for that plan of care. 7 minutes spent on care and coordination Patient pleasant reports feeling much better. Abdomen soft and nontender Plan of care as outlined below Date of Service June 22, 2024 Assessment & Plan (1) Acute UTI: (2) Metabolic encephalopathy: (3) Fecal impaction in rectum: Plan Analy Haq is an 83y/o F with PMHx significant for SIADH, seasonal allergic rhinitis, history of acute DVT of femoral vein of right lower extremity [on Eliquis], HTN, slow transit constipation, close stable burst fracture of 12 thoracic vertebra with routine healing, spondylolisthesis of lumbar region, history of closed avulsion fracture of greater trochanter of right femur, degenerative disc disease, senile stow porosis, Spencer's palsy, senile dementia, history of CVA, 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 She was subsequ ently found to have an acute UTI. Acute UTI, Metabolic Encephalopathy: Patient admitted to the hospital with acute delirium in the setting of senile dementia most likely due to acute UTI. CT head was negative for any acute findings. Was started on IV Rocephin. Preliminary urine cx growing gram negative bacilli. Continue IV Rocephin pending final urine cx results. Uncontrolled HTN: SBP was initially elevated in the 160s-170s on admission. Patient's lisinopril was increased to 20mg daily yesterday --> BP significantly improved. Fecal Impaction: CTAP showed a very large amount of stool in the rectum consistent with fecal impaction. Was ordered a soapsuds enema yesterday. Has had 3 BMs since 06/21. Will continue to follow. 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 Code Status: DNR/DNI - As per previous provider discussion with the patient's daughter. PCP: Angie Perez MD Disposition: Admitting in Med/Surg + Telemetry --> PT/OT recommending 24-hour care at home upon discharge. * Patient moved in with Jo-Ann and Jo-Ann's in March from [facility]. Jo-Ann and her provide 24-hour care for her. Patient has a wheelchair and a hospital bed. She is wheelchair bound. She does not use home O2. She is active with [facility] 1x/week and [facility] 1x/month. Plan is for patient to return home when stable and continue with [facility] - referral has been sent. Waiting to hear back. Patient seen in collaboration with Dr. Grey. Please see addendum. I spent a total of 55 minutes coordinating, documenting, and providing care for this patient excluding time spent in the performance of separately billed services. This included personally reviewing all current laboratories and imaging studies, medical reconciliation, outpatient chart review and discussion with specialists. This chart was completed in part utilizing Speech Voice Recognition Software. Grammatical errors, random word insertions, pronoun errors, and incomplete sentences are an occasional consequence of this system due to software limitations, ambient noise, and hardware issues. Any formal questions or concerns about the content, text, or information contained within the body of this dictation should be directly addressed to the provider for clarification. Admission and Anticipated Discharge Date Admission Date: June 21, 2024 Subjective Patient seen and examined at bedside in room W360-1. She was easily awoken when I entered the room. Answering yes/no questions appropriately, pleasantly confused. Review of Systems Review of Systems: At least ten systems reviewed and negative, except as noted in the HPI. Physical Exam Physical Exam: General: WD/WN, vitals as above, NAD, sitting up in bed, pleasant, cooperative, A+O mostly to self. HEENT: Normocephalic, atraumatic. PERRL, conjunctivae normal, anicteric sclerae, oropharynx normal. Respiratory: Normal respiratory effort, lungs clear to auscultation, no wheeze, rales, rhonchi. No accessory muscle use. Cardiovascular: Regular rate, rhythm, no murmur, normal peripheral pulses, no BLE edema. Vessels: No JVD. Abdomen/GI: Normal bowel sounds, soft, nontender, no hepatosplenomegaly. Extremities/Musculoskeletal: No cyanosis or clubbing, generalized weakness, able to move all extremities. Neurologic: EOMI, no overt focal deficits, CN's II-XI not formally tested but appear grossly intact bilaterally. Skin: No rashes, normal color, warm/dry. Results & Data Results & Data Vital Signs (Past 12 Hours) Vital Signs Temp Pulse Resp BP BP Pulse Ox O2 Del Method 06/22/24 15:36 36.5 C 73 17 126/72 96 Room Air 06/22/24 07:47 36.8 C 67 16 129/72 96 Room Air Laboratory Results [facility] 06/22/24 06:57 Sodium 137 Potassium 4.3 Chloride 105 Carbon Dioxide 28 BUN 20 Creatinine 0.93 Glucose 94 Calcium 9.7
--- NOTE | 2024-06-23 05:57 | Electrocardiogram Report ---
Test Reason : Blood Pressure : */* mmHG Vent. Rate : 110 BPM Atrial Rate : 110 BPM P-R Int : 154 ms QRS Dur : 68 ms QT Int : 334 ms P-R-T Axes : 46 4 6 degrees QTcB Int : 452 ms Sinus tachycardia Possible Left atrial enlargement Nonspecific ST abnormality Abnormal ECG When compared with ECG of 04-Jan-2024 07:30, No significant change was found Confirmed by Wei Delgado ([id number]) on 06/23/2024 5:57:30 AM Referred By: REFERRED SELF Confirmed By: Wei Delgado
[2024-06-23 07:41] LABS: Hemoglobin 10.4 g/dl (12.0-16.0); Mean Corpuscular Hemoglobin 26.3 pg (25.0-34.0); Mean Corpuscular Hgb Conc 31.5 g/dL (32.0-36.0); Mean Corpuscular Volume 83.5 fL (80.0-100.0); Mean Platelet Volume 9.7 fL (9.4-12.4); Platelet Count 256 K/uL (130-400); RDW Coefficient of Variation 13.9 % (11.5-14.5); RDW Standard Deviation 42.4 fL (36.4-46.3); Red Blood Count 3.95 M/uL (4.20-5.40); White Blood Count 7.48 K/ul (4.8-10.8)
[2024-06-23 08:09] LABS: Calcium 9.4 mg/dl (8.6-10.3); Est GFR (African American) 59.5 ml/min; Est GFR (Non-African American) 51.3 ml/min; Phosphorus 2.9 mg/dl (2.5-4.9); Potassium 4.4 mmol/L (3.5-5.1)
--- NOTE | 2024-06-23 09:44 | XRay Report ---
KUB HISTORY: Bloody bowel movements. COMPARISON: Abdomen and pelvis CT 06/21/2024. FINDINGS: Redemonstration of the large rectal stool ball measuring 11 cm. This is similar to the prio r study. There is a punctate metallic density within the rectal stool ball, unchanged. Postoperative changes within the bilateral hips. Moderate fecal retention throughout the colon. Prior cholecystecto my. No dilated loops of bowel to suggest an obstruction. Right-sided nephrolithiasis again noted. No ureteral calculi. Elevation of the right hemidiaphragm. No pneumoperitoneum or pneumatosis. IMPRESSION: 1. No significant change in the large rectal stool ball with moderate fecal retention throughout the colon. 2. No evidence for a bowel obstruction. 3. Right-sided nephrolithiasis again noted. ACT 112: Negative or not required by law. Electronically signed by: Young Monge M.D. 06/23/2024 9:42 AM
--- NOTE | 2024-06-23 14:38 | Hospitalist Progress Note ---
<Statement entered by Kris Grey, - 06/23/24 16:27> I have seen and examined the patient and have discussed the case with the provider above. I have reviewed the advanced practitioner's documentation, and I agree with, and take responsibility for that plan of care. 12 minutes spent coordinating care and evaluation patient. Patient seen and overall improved. No complaints. ESBL UTI, we will proceed with fosfomycin treatment x 1 Plan of care as outlined below Date of Service June 23, 2024 Assessment & Plan (1) Acute UTI: (2) Metabolic encephalopathy: (3) Fecal impaction in rectum: Plan Analy Haq is an 83y/o F with PMHx significant for SIADH, seasonal allergic rhinitis, history of acute DVT of femoral vein of right lower extremity [on Eliquis], HTN, slow transit constipation, close stable burst fracture of 12 thoracic vertebra with routine healing, spondylolisthesis of lumbar region, history of closed avulsion fracture of greater trochanter of right femur, degenerative disc disease, senile stow porosis, Spencer's palsy, senile dementia, history of CVA, 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 She was subsequently found to have an acute UTI. Acute UTI, Metabolic Encephalopathy: Patient admitted to the hospital with acute delirium in the setting of senile dementia most likely due to acute UTI. CT head was negative for any acute findings. Was started on IV Rocephin. Final urine cx result shows ESBL E. coli today. Spoke with pharmacy via TT and over the phone --> IV Rocephin stopped. Fosfomycin 3g po x 1 dose ordered. Uncontrolled HTN: SBP was initially elevated in the 160s-170s on admission. Patient's lisinopril was increased to 20mg daily --> BP significantly improved. Fecal Impaction: CTAP done in ED showed a very large amount of stool in the rectum consistent with fecal impaction. Was ordered a soapsuds enema on 06/22. Was notified via [employer] (TT) this morning that patient had bloody-appearing BM this morning. KUB today showed no significant change in the large rectal stool ball with moderate fecal retention throughout the colon. Likely the blood in her BM was a result of colitis 2/2 fecal impaction. Had ordered mineral oil enema to be done but then RN made me aware via TT ~12PM that the patient had a large BM - passed 2 large stool balls. Will hold on mineral oil enema for now. She had another large, soft but formed BM ~1PM that did not appear blood streaked. Will start her on scheduled docusate/sodium for now. Plan to repeat KUB this afternoon to check for any progression. Sacral Erythema H/O Pressure Ulcers: Patient with sacral erythema per discussion with RN via [employer]. Wound care nurse consulted for further evaluation/recommendations. She saw the wound clinic back in April. Other Chronic Medical Conditions: Depression, GERD, HLD, seasonal allergies --> Continue home meds for these specific conditions. Sodium level stable - patient with history of SIADH. 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 Code Status: DNR/DNI - As per previous provider discussion with the patient's daughter. PCP: Angie Perez MD Disposition: Admitting in Med/Surg + Telemetry --> PT/OT recommending 24-hour care at home upon discharge. * Patient moved in with Jo-Ann and Jo-Ann's in March from [facility]. Jo-Ann and her provide 24-hour care for her. Patient has a wheelchair and a hospital bed. She is wheelchair bound. She does not use home O2. She is active with [facility] 1x/week and [facility] 1x/month. Plan is for patient to return home when stable and continue with [facility] - referral has been sent. Waiting to hear back. Patient seen in collaboration with Dr. Grey. Please see addendum. I spent a total of 50 minutes coordinating, documenting, and providing care for this patient excluding time spent in the performance of separately billed services. This included personally reviewing all current laboratories and imaging studies, medical reconciliation, outpatient chart review and discussion with specialists. This chart was completed in part utilizing Speech Voice Recognition Software. Grammatical errors, random word insertions, pronoun errors, and incomplete sentences are an occasional consequence of this system due to software limitations, ambient noise, and hardware issues. Any formal questions or concerns about the content, text, or information contained within the body of this dictation should be directly addressed to the provider for clarification. Admission and Anticipated Discharge Date Admission Date: June 21, 2024 Subjective Patient seen and examined at bedside in room W360-1. Was asleep when I entered the room but was easily awoken with verbal stimuli. Pleasantly confused, denies any abdominal pain at this time. No questions or concerns. Review of Systems Review of Systems: At least ten systems reviewed and negative, except as noted in the HPI. Physical Exam Physical Exam: General: Vitals as above, NAD, laying down in bed, pleasantly confused, A+O mostly to self at this time however knows she is in the hospital. HEENT: Normocephalic, atraumatic. PERRL, conjunctivae normal, anicteric sclerae, oropharynx normal. Respiratory: Normal respiratory effort, lungs clear to auscultation, no wheeze, rales, rhonchi. No accessory muscle use. Cardiovascular: Regular rate, rhythm, no murmur, normal peripheral pulses, no BLE edema. Vessels: No JVD. Abdomen/GI: Normal bowel sounds, soft, nontender, no hepatosplenomegaly. Extremities/Musculoskeletal: No cyanosis or clubbing, generalized weakness, able to move all extremities. Neurologic: EOMI, no overt focal deficits, CN's II-XI not formally tested but appear grossly intact bilaterally. Skin: No rashes, normal color, warm/dry. Results & Data Results & Data Vital Signs (Past 12 Hours) Vital Signs Temp Pulse Resp BP Pulse Ox O2 Del Method 06/23/24 07:28 36.7 C 67 18 134/77 96 Room Air Laboratory Results Short CBC 06/23/24 Range/Units 06:53 WBC 7.48 (4.8-10.8) K/ul Hgb 10.4 L (12.0-16.0) g/dl Hct 33.0 L (37.0-47.0) % Plt Count 256 (130-400) K/uL BMP 06/23/24 06:53 Sodium 139 Potassium 4.4 Chloride 107 Carbon Dioxide 29 BUN 33 H Creatinine 1.00 Glucose 90 Calcium 9.4 Diagnostic Findings KUB X-Ray 06/23/24 08:42 KUB HISTORY: Bloody bowel movements. COMPARISON: Abdomen and pelvis CT 06/21/2024. FINDINGS: Redemonstration of the large rectal stool ball measuring 11 cm. This is similar to the prior study. There is a punctate metallic density within the rectal stool ball, unchanged. Postoperative changes within the bilateral hips. Moderate fecal retention throughout the colon. Prior cholecystectomy. No dilated loops of bowel to suggest an obstruction. Right-sided nephrolithiasis again noted. No ureteral calculi. Elevation of the right hemidiaphragm. No pneum operitoneum or pneumatosis. IMPRESSION: 1. No significant change in the large rectal stool ball with moderate fecal retention throughout the colon. 2. No evidence for a bowel obstruction. 3. Right-sided nephrolithiasis again noted. ACT 112: Negative or not required by law. Electronically signed by: Young Monge M.D. 06/23/2024 9:42 AM
--- NOTE | 2024-06-23 17:14 | XRay Report ---
KUB HISTORY: Fecal impaction COMPARISON: KUB 06/23/2024. FINDINGS: There are no dilated loops of bowel to suggest an obstruction. Prior cholecystectomy. Posto perative changes within the bilateral hips. Moderate fecal retention again noted. The rectal stool ba ll has decreased in size and now measures 7.7 cm, previous measuring 11 cm. Right-sided nephrolithia sis again noted. No pneumoperitoneum or pneumatosis. IMPRESSION: 1. Moderate fecal retention with decrease in size in the large rectal stool ball. 2. Nonobstructive bowel gas pattern. ACT 112: Negative or not required by law. Electronically signed by: Young Monge M.D. 06/23/2024 5:12 PM
[2024-06-23] MEDS: DOCUSATE SODIUM/SENNA 50/8.6MG TAB PO SCH (17:20)
[2024-06-23] MEDS: FOSFOMYCIN TROMETHAMINE 3 GM PACKET PO SCH (17:21)
[2024-06-23] MEDS: MINERAL OIL ENEMA 133 ML BTL PR SCH (18:11)
[2024-06-24 07:30] LABS: Hemoglobin 10.7 g/dl (12.0-16.0); Mean Corpuscular Hemoglobin 26.2 pg (25.0-34.0); Mean Corpuscular Hgb Conc 31.5 g/dL (32.0-36.0); Mean Corpuscular Volume 83.1 fL (80.0-100.0); Mean Platelet Volume 9.7 fL (9.4-12.4); Platelet Count 245 K/uL (130-400); RDW Coefficient of Variation 13.9 % (11.5-14.5); RDW Standard Deviation 42.5 fL (36.4-46.3); Red Blood Count 4.09 M/uL (4.20-5.40); White Blood Count 6.74 K/ul (4.8-10.8)
--- NOTE | 2024-06-24 07:46 | XRay Report ---
KUB HISTORY: Fecal impaction COMPARISON: KUB 06/23/2024. FINDINGS: Moderate colonic fecal retention again noted with an 8.4 cm rectal stool ball. This is david lar to the prior study. No dilated loops of bowel to suggest an obstruction. Prior cholecystectomy. R ight-sided nephrolithiasis again noted. There are postoperative changes within the hips. No renal ca lculi. No ureteral calculi. No pneumoperitoneum or pneumatosis. IMPRESSION: Moderate colonic fecal retention with an 8.4 cm rectal stool ball. This is similar to the prior study . No evidence for a bowel obstruction. ACT 112: Negative or not required by law. Electronically signed by: Young Monge M.D. 06/24/2024 7:45 AM
[2024-06-24 07:48] LABS: BUN Creatinine Ratio 27.4 (10-20); Calcium 9.4 mg/dl (8.6-10.3); Creatinine Clr Calc Pharmacy 36.9 ml/min; Est GFR (African American) 73.5 ml/min; Est GFR (Non-African American) 63.4 ml/min; Magnesium 2.1 mg/dl (1.7-2.4); Phosphorus 2.6 mg/dl (2.5-4.9); Potassium 4.3 mmol/L (3.5-5.1)
--- NOTE | 2024-06-24 12:14 | Hospitalist Progress Note ---
<Statement entered by Kris Grey, DO - 06/24/24 13:35> I have seen and examined the patient and have discussed the case with the provider above. I have reviewed the advanced practitioner's documentation, and I agree with, and take responsibility for that plan of care. 8 minutes spent on care coordination of patient. Patient eating breakfast. No abdominal pain Continue to give enemas till stool impaction resolved Plan of care as outlined below Date of Service June 24, 2024 Assessment & Plan (1) Acute UTI: (2) Fecal impaction in rectum: Plan Analy Haq is an 83y/o F with PMHx significant for SIADH, seasonal allergic rhinitis, history of acute DVT of femoral vein of right lower extremity [on Eliquis], HTN, slow transit constipation, close stable burst fracture of 12 thoracic vertebra with routine healing, spondylolisthesis of lumbar region, history of closed avulsion fracture of greater trochanter of right femur, degenerative disc disease, senile stow porosis, Spencer's palsy, senile dementia, history of CVA, 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 She was subse quently found to have an acute UTI. Acute Urinary Tract Infection (UTI) Metabolic Encephalopathy - IMPROVED: Patient admitted to the hospital with acute delirium in the setting of senile dementia most likely due to acute UTI. CT head was negative for any acute findings. Was started on IV Rocephin initially. Final urine cx growing ESBL E. coli. Spoke with pharmacy yesterday --> IV Rocephin stopped. Fosfomycin 3g po x 1 dose given. No further treatment warranted at this time. Uncontrolled HTN: SBP was initially elevated in the 160s-170s on admission. Patient's lisinopril was increased to 20mg daily --> BP improved. Fecal Impaction: CTAP done in ED showed a very large amount of stool in the rectum consistent with fecal impaction. Was placed on daily Miralax at time of admission. Was notified via TT yesterday that patient had bloody-appearing BM in the AM. KUB was ordered and showed no significant change in the large rectal stool ball with moderate fecal retention throughout the colon. Likely the blood in her BM was a result of colitis 2/2 fecal impaction. Patient proceeded to have 2 more BM yesterday afternoon. Repeat KUB at that time revealed slight decrease in the size of the stool ball. She has had 3 more BMs since yesterday afternoon. KUB this morning still showing moderate colonic fecal retention with an 8.4cm rectal stool ball. Spoke with nursing staff via TT. Will proceed with mineral enema after lunch. Repeat KUB tomorrow AM. Current bowel regimen consists of daily Miralax, daily Senokot S and daily mineral oil enema x 1. If no improvement seen on KUB tomorrow, patient may require manual disimpaction. Sacral Erythema H/O Pressure Ulcers: Patient with sacral erythema per discussion with RN via TT yesterday. Wound care nurse consulted for further evaluation/recommendations. She saw the wound clinic back in April. Other Chronic Medical Conditions: Depression, GERD, HLD, seasonal allergies --> Continue home meds for these specific conditions. Sodium level remains stable - patient with history of SIADH. 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 Code Status: DNR/DNI - As per previous provider discussion with the patient's daughter. PCP: Angie Perez MD Disposition: Admitting in Med/Surg + Telemetry --> PT/OT recommending 24-hour care at home upon discharge. * Patient moved in with Jo-Ann and Jo-Ann's in March from [facility]. Jo-Ann and her provide 24-hour care for her. Patient has a wheelchair and a hospital bed. She is wheelchair bound. She does not use home O2. She is active with [facility] 1x/week and [facility] 1x/month. Plan is for patient to return home when stable and continue with [facility] - referral has been sent. Waiting to hear back. Patient seen in collaboration with Dr. Grey. Please see addendum. I spent a total of 45 minutes coordinating, documenting, and providing care for this patient excluding time spent in the performance of separately billed services. This included personally reviewing all current laboratories and imaging studies, medical reconciliation, outpatient chart review and discussion with specialists. This chart was completed in part utilizing Speech Voice Recognition Software. Grammatical errors, random word insertions, pronoun errors, and incomplete sentences are an occasional consequence of this system due to software limitations, ambient noise, and hardware issues. Any formal questions or concerns about the content, text, or information contained within the body of th is dictation should be directly addressed to the provider for clarification. Admission and Anticipated Discharge Date Admission Date: June 21, 2024 Subjective Patient seen and examined at bedside in room W360-1. She was sitting up in bed eating breakfast when I entered the room. Had no complaints or concerns. Denied any abdominal pain or discomfort. Review of Systems Review of Systems: At least ten systems reviewed and negative, except as noted in the subjective section. Physical Exam Physical Exam: General: Vitals as above, NAD, sitting up eating in bed, pleasantly confused, A+O mostly to self most of the time. HEENT: Normocephalic, atraumatic. PERRL, conjunctivae normal, anicteric sclerae, oropharynx normal. Respiratory: Normal respiratory effort, lungs clear to auscultation, no wheeze, rales, rhonchi. No accessory muscle use. Cardiovascular: Regular rate, rhythm, no murmur, normal peripheral pulses, no BLE edema. Vessels: No JVD. Abdomen/GI: Normal bowel sounds, soft, nontender, no hepatosplenomegaly. Extremities/Musculoskeletal: No cyanosis or clubbing, generalized weakness, able to move all extremities. Neurologic: EOMI, no overt focal deficits, CN's II-XI not formally tested but appear grossly intact bilaterally. Skin: No rashes, normal color, warm/dry. Results & Data Results & Data Vital Signs (Past 12 Hours) Vital Signs Temp Pulse Resp BP Pulse Ox O2 Del Method 06/24/24 07:44 36.5 C 72 17 164/79 H 97 Room Air Laboratory Results Short CBC 06/24/24 Range/Units 07:09 WBC 6.74 (4.8-10.8) K/ul Hgb 10.7 L (12.0-16.0) g/dl Hct 34.0 L (37.0-47.0) % Plt Count 245 (130-400) K/uL BMP 06/24/24 07:09 Sodium 140 Potassium 4.3 Chloride 107 Carbon Dioxide 29 BUN 23 Creatinine 0.84 Glucose 92 Calcium 9.4 Diagnostic Findings KUB X-Ray 06/24/24 08:00 KUB HISTORY: Fecal impaction COMPARISON: KUB 06/23/2024. FINDINGS: Moderate colonic fecal retention again noted with an 8.4 cm rectal stool ball. This is similar to the prior study. No dilated loops of bowel to suggest an obstruction. Prior cholecystectomy. Right-sided nephrolithiasis again noted. There are postoperative changes within the hips. No renal calculi. No ureteral calculi. No pneumoperitoneum or pneumatosis. IMPRESSION: Moderate colonic fecal retention with an 8.4 cm rectal stool ball. This is similar to the prior study. No evidence for a bowel obstruction. ACT 112: Negative or not required by law. Electronically signed by: Young Monge M.D. 06/24/2024 7:45 AM
[2024-06-24] MEDS: SOD PHOSPHATE/SOD BIPHOSPHATE ENEMA 132 ML BTL PR STA (12:28)
--- NOTE | 2024-06-25 07:21 | XRay Report ---
KUB HISTORY: Acute lower abdominal pain with constipation Fecal impaction COMPARISON: KUB 06/24/2024, CT 06/21/2024 FINDINGS: Nonobstructive bowel gas pattern. Cholecystectomy. Moderate fecal retention of the rectosig moid redemonstrated. No renal calculi. No ureteral calculi. No pneumoperitoneum or pneumatosis. Post operative changes of the proximal femora are again seen. No fracture. IMPRESSION: 1. Nonobstructive bowel gas pattern. 2. Moderate fecal retention of the rectosigmoid redemonstrated. 3. Cholecystectomy. ACT 112: Negative or not required by law. The above report was generated using voice recognition software. It may contain grammatical, syntax o r spelling errors. Electronically signed by: Prashanth Morales M.D. 06/25/2024 7:20 AM
[2024-06-25 08:32] LABS: Hemoglobin 11.2 g/dl (12.0-16.0); Mean Corpuscular Hemoglobin 25.6 pg (25.0-34.0); Mean Corpuscular Hgb Conc 30.3 g/dL (32.0-36.0); Mean Corpuscular Volume 84.7 fL (80.0-100.0); Mean Platelet Volume 9.5 fL (9.4-12.4); Platelet Count 274 K/uL (130-400); RDW Coefficient of Variation 13.9 % (11.5-14.5); RDW Standard Deviation 43.3 fL (36.4-46.3); Red Blood Count 4.37 M/uL (4.20-5.40); White Blood Count 6.77 K/ul (4.8-10.8)
[2024-06-25 08:42] LABS: Calcium 9.7 mg/dl (8.6-10.3); Creatinine Clr Calc Pharmacy 36.5 ml/min; Est GFR (African American) 72.4 ml/min; Est GFR (Non-African American) 62.5 ml/min; Magnesium 2.1 mg/dl (1.7-2.4); Phosphorus 2.7 mg/dl (2.5-4.9); Potassium 4.3 mmol/L (3.5-5.1)
--- NOTE | 2024-06-25 12:23 | Hospitalist Progress Note ---
<Statement entered by Kris Grey, - 06/25/24 13:50> I have seen and examined the patient and have discussed the case with the provider above. I have reviewed the advanced practitioner's documentation, and I agree with, and take responsibility for that plan of care. 7 minutes care coordination. Patient upset eating breakfast. No acute complaints Plan of care as outlined below Date of Service June 25, 2024 Assessment & Plan (1) Acute UTI: (2) Fecal impaction in rectum: Plan Analy Haq is an 83y/o F with PMHx significant for SIADH, seasonal allergic rhinitis, history of acute DVT of femoral vein of right lower extremity [on Eliquis], HTN, slow transit constipation, close stable burst fracture of 12 thoracic vertebra with routine healing, spondylolisthesis of lumbar region, history of closed avulsion fracture of greater trochanter of right femur, degenerative disc disease, senile stow porosis, Spencer's palsy, senile dementia, history of CVA, 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 She was subsequently found to have an acute UTI. Acute Urinary Tract Infection (UTI) ESBL E.Coli Metabolic Encephalopathy - IMPROVED: Patient admitted to the hospital with acute delirium in the setting of senile dementia most likely due to acute UTI. CT head was negative for any acute findings. Possible underlying dementia with not oriented to date, year, president etc. She is pleasantly cooperative today IV Rocephin initially x 3 days transitioned to Fosfomycin 3g po x 1 dose. No further treatment warranted at this time. Uncontrolled HTN: SBP was initially elevated in the 160s-170s on admission. Patient's lisinopril was increased to 20mg daily --> BP improved. Fecal Impaction: CTAP done in ED showed a very large amount of stool in the rectum consistent with fecal impaction. 1 bloody-appearing BM KUB was ordered and showed no significant change in the large rectal stool ball with moderate fecal retention throughout the colon. Likely the blood in her BM was a result of colitis 2/2 fecal impaction. 06/23 - 2 BMs. KUB at that time revealed slight decrease in the size of the stool ball. 9/18 - 3 BMs, KUB 06/24 showing moderate colonic fecal retention with an 8.4cm rectal stool ball. ---> mineral enema. Need to consider manual disimpaction. 2 BMS after mineral enema. Total 5 BMs. 06/25 KUB reviewed, appears fecal impaction looks similar to yesterday per my personal read -- discussed with radiology, no significant change compared to yesterday KUB Current bowel regimen consists of daily Miralax, daily Senokot S and daily mineral oil enema x 1. Sacral Erythema H/O Pressure Ulcers: Patient with sacral erythema per discussion with RN via TT yesterday. Wound care nurse consulted for further evaluation/recommendations. She saw the wound clinic back in April. Other Chronic Medical Conditions: Depression, GERD, HLD, seasonal allergies --> Continue home meds for these specific conditions. Sodium level remains stable - patient with history of SIADH. 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 PCP: Angie Perez MD Disposition: From home, PT/OT recommending 24-hour care at home upon discharge. * Patient moved in with Jo-Ann and Jo-Ann's in March from [facility]. Jo-Ann and her provide 24-hour care for her. Patient has a wheelchair and a hospital bed. She is wheelchair bound. She does not use home O2. She is active with [facility] 1x/week and [facility] 1x/month. Plan is for patient to return home when stable and continue with [facility] - referral has been sent. Waiting to hear back. Patient seen in collaboration with Dr. Grey. Please see addendum. I spent a total of 45 minutes coordinating, documenting, and providing care for this patient excluding time spent in the performance of separately billed services. This included personally reviewing all current laboratories and imaging studies, medical reconciliation, outpatient chart review and discussion with specialists. Admission and Anticipated Discharge Date Admission Date: June 21, 2024 Subjective Pt seen and examined this morning No complaints. Pt reports bowels are moving and says "they're normal". Tolerating breakfast without any difficulty. No nausea. She does not know the date, month, year or the president. Pt left eye has chronically watered for long time per her report. 10 point ROS reviewed and otherwise negative. Physical Exam Physical Exam: General: awake, alert, no apparent distress, pleasant, follows commands and answers questions although is not oriented. Head: Normocephalic, atraumatic ENT: PERRL, EOMI, + left eye droop and watering, no pharyngeal exudate, mucous membranes moist Chest: Clear to auscultation, on room air, no adventitious breath sounds Cardiac: Regular rate and rhythm, + faint systolic murmur, no JVD, normal peripheral pulses, good capillary refill Abdominal: NABS x 4 quadrants, soft, nondistended, nontender to palpation, no rebound or guarding Extremities: Normal inspection, no peripheral edema or erythema, calfs nontender to palpation Psych: Normal mood and affect Neuro: not oriented to time, president, knows she is in a hospital, strength intact bilaterally and rated 4/5 in lower extremities, no motor deficits, speech is clear, no peripheral sensory deficits Results & Data Results & Data Vital Signs (Past 12 Hours) Vital Signs Temp Pulse Resp BP Pulse Ox O2 Del Method O2 Del Method 06/25/24 07:52 36.4 C L 72 16 154/84 H 97 Room Air 06/25/24 02:00 Room Air Laboratory Results 06/25/24 08:08 WBC 6.77 RBC 4.37 Hgb 11.2 L Hct 37.0 MCV 84.7 MCH 25.6 MCHC 30.3 L RDW Std Deviation 43.3 RDW Coeff of Tyesha 13.9 Plt Count 274 MPV 9.5 Sodium 140 Potassium 4.3 Chloride 107 Carbon Dioxide 30 Anion Gap 3 BUN 17 Creatinine 0.85 Est Cr Clr Drug Dosing 36.5 Est GFR ( Amer) 72.4 Est GFR (Non-Af Amer) 62.5 BUN/Creatinine Ratio 20.0 Glucose 96 Calcium 9.7 Phosphorus 2.7 Magnesium 2.1
--- NOTE | 2024-06-26 09:37 | Hospitalist Progress Note ---
<Statement entered by Kris Grey DO - 06/26/24 15:15> I have seen and examined the patient and have discussed the case with the provider above. I have reviewed the advanced practitioner's documentation, and I agree with, and take responsibility for that plan of care. 6 minutes spent on coordination of care of patient. Patient resting in bed. Getting exhausted of the frequent enemas. Plan of care as outlined below Date of Service June 26, 2024 Assessment & Plan (1) Acute UTI: (2) Fecal impaction in rectum: (3) Metabolic encephalopathy: (4) Dementia: (5) SIADH (syndrome of inappropriate ADH production): Plan Analy Haq is an 83y/o F with PMHx significant for SIADH, seasonal allergic rhinitis, history of acute DVT of femoral vein of right lower extremity [on Eliquis], HTN, slow transit constipation, close stable burst fracture of 12 thoracic vertebra with routine healing, spondylolisthesis of lumbar region, history of closed avulsion fracture of greater trochanter of right femur, degenerative disc disease, senile stow porosis, Spencer's palsy, senile dementia, history of CVA, 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 She was subsequently found to have an acute UTI. Acute Urinary Tract Infection (UTI) ESBL E.Coli Metabolic Encephalopathy - IMPROVED: Patient admitted to the hospital with acute delirium in the setting of senile dementia most likely due to acute UTI. CT head was negative for any acute findings. Possible underlying dementia with not oriented to date, year, president etc. She is pleasantly cooperative today IV Rocephin initially x 3 days transitioned to Fosfomycin 3g po x 1 dose. No further treatment warranted at this time. Uncontrolled HTN: SBP was initially elevated in the 160s-170s on admission. Patient's lisinopril was increased to 20mg daily --> BP improved. Fecal Impaction: CTAP done in ED showed a very large amount of stool in the rectum consistent with fecal impaction. 1 bloody-appearing BM KUB was ordered and showed no significant change in the large rectal stool ball with moderate fecal retention throughout the colon. Likely the blood in her BM was a result of colitis 2/2 fecal impaction. 06/23 - 2 BMs. KUB at that time revealed slight decrease in the size of the stool ball. 06/24 - 3 BMs, KUB 06/24 showing moderate colonic fecal retention with an 8.4cm rectal stool ball. ---> mineral enema. Need to consider manual disimpaction. 2 BMS after mineral enema. Total 5 BMs. 06/25 KUB reviewed, appears fecal impaction looks similar to yesterday per my personal read -- discussed with radiology, no significant change compared to yesterday KUB, disimpaction attempted but not successful 06/26 - Will switch mineral oil enema to soap suds enema, add lactulose 30 mg tereza to miralax and senokot S. Sacral Erythema H/O Pressure Ulcers: Patient with sacral erythema per discussion with RN via TT yesterday. Wound care nurse consulted for further evaluation/recommendations. She saw the wound clinic back in April. Other Chronic Medical Conditions: Depression, GERD, HLD, seasonal allergies --> Continue home meds for these specific conditions. Sodium level remains stable - patient with history of SIADH. 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 PCP: Angie Perez MD, pt is identified as high LACE score on discharge Disposition: From home, PT/OT recommending 24-hour care at home upon discharge. * Patient moved in with Jo-Ann and Jo-Ann's in March from [facility]. Jo-Ann and her provide 24-hour care for her. Patient has a wheelchair and a hospital bed. She is wheelchair bound. She does not use home O2. She is active with [facility] 1x/week and [facility] 1x/month. Plan is for patient to return home when stable and continue with [facility] - referral has been sent. Waiting to hear back. Patient seen in collaboration with Dr. Grey. Please see addendum. A total of 55 minutes were spent with greater than 50% of that time face to face with the patient, personally reviewing all current laboratories, imaging studies, past medication reconciliation, outpatient chart review, and discussion with specialists to collaborate care for the patient with attending. Please see attending documentation for corrections and/or additions. Admission and Anticipated Discharge Date Admission Date: June 21, 2024 Subjective Pt seen and examined this morning No complaints. Pt reports bowels moving but cannot say if it is more or improved. Denies abd pain. Enemas occurring daily- nursing attempted disimpaction yesterday without success. She does not want to work with PT/OT, says she doesn't want to participate, will only be wasting their time, and repetitively refuses my offer to work with the service. 10 point ROS reviewed and otherwise negative. Review of Systems Review of Systems: Constitutional: No fever, sweats or chills Eyes: No diplopia, no worsening or blurred vision ENT: normal hearing, no trouble swallowing Respiratory: No cough, sputum, dyspnea at rest or on exertion Cardiovascular: No chest pain, tightness or palpitations Abdomen: No pain, nausea, vomiting, diarrhea or constipation Musculoskeletal: No joint pain, calf pain, swelling Neurologic: No weakness, numbness/tingling, or balance problems Psychiatric: No anxiety or depression Skin: No rash or itch Physical Exam Physical Exam: General: awake, alert, no apparent distress, pleasant, follows commands and answers questions although is not oriented. Head: Normocephalic, atraumatic ENT: PERRL, EOMI, + left eye droop and watering, no pharyngeal exudate, mucous membranes moist Chest: Clear to auscultation, on room air, no adventitious breath sounds Cardiac: Regular rate and rhythm, + faint systolic murmur, no JVD, normal peripheral pulses, good capillary refill Abdominal: NABS x 4 quadrants, soft, nondistended, nontender to palpation, no rebound or guarding Extremities: Normal inspection, no peripheral edema or erythema, calfs nontender to palpation Psych: Normal mood and affect Neuro: not oriented to time, president, knows she is in a hospital, strength intact bilaterally and rated 4/5 in lower extremities, no motor deficits, speech is clear, no peripheral sensory deficits Results & Data Results & Data Vital Signs (Past 12 Hours) Vital Signs Temp Pulse Resp BP Pulse Ox O2 Del Method 06/26/24 07:54 36.7 C 70 16 153/84 H 93 Room Air
[2024-06-26] MEDS: LACTULOSE SYRUP 30 GM/45 ML UDP PO SCH (12:59)
--- NOTE | 2024-06-27 12:28 | XRay Report ---
KUB HISTORY: Acute generalized abdominal pain constipation COMPARISON: KUB 06/25/2024 FINDINGS: Nonobstructive bowel gas pattern. Cholecystectomy. Decreased fecal retention, now mild-to-m oderate. No renal calculi. No ureteral calculi. No pneumoperitoneum or pneumatosis. Postoperative ch anges of the proximal femora. No fracture. IMPRESSION: 1. Nonobstructive bowel gas pattern. 2. Decreased fecal retention, now [id number]. ACT 112: Negative or not required by law. The above report was generated using voice recognition software. It may contain grammatical, syntax o r spelling errors. Electronically signed by: Prashanth Morales M.D. 06/27/2024 12:27 PM
--- NOTE | 2024-06-27 13:49 | Hospitalist Progress Note ---
Date of Service June 27, 2024 Assessment & Plan (1) Acute UTI: (2) Fecal impaction in rectum: (3) Metabolic encephalopathy: (4) Dementia: (5) SIADH (syndrome of inappropriate ADH production): Plan Ms Analy Haq is an 83y/o F with PMHx significant for SIADH, seasonal allergic rhinitis, history of acute DVT of femoral vein of right lower extremity [on Eliquis], HTN, slow transit constipation, close stable burst fracture of 12 thoracic vertebra with routine healing, spondylolisthesis of lumbar region, history of closed avulsion fracture of greater trochanter of right femur, degenerative disc disease, senile stow porosis, Spencer's palsy, senile dementia, history of CVA, 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 CT head was negative for any acute findings. Possible underlying dementia with not oriented to date, year, president etc. She is pleasantly cooperative today IV Rocephin initially x 3 days transitioned to Fosfomycin 3g po x 1 dose. No further treatment warranted at this time. #Uncontrolled HTN: SBP was initially elevated in the 160s-170s on admission. Patient's lisinopril was increased to 20mg daily --> BP improved. #Fecal Impaction: CTAP done in ED showed a very large amount of stool in the rectum consistent with fecal impaction. 1 bloody-appearing BM KUB was ordered and showed no significant change in the large rectal stool ball with moderate fecal retention throughout the colon. Likely the blood in her BM was a result of colitis 2/2 fecal impaction. 06/23 - 2 BMs. KUB at that time revealed slight decrease in the size of the stool ball. 06/24 - 3 BMs, KUB 06/24 showing moderate colonic fecal retention with an 8.4cm rectal stool ball. ---> mineral enema. Need to consider manual disimpaction. 2 BMS after mineral enema. Total 5 BMs. 06/25 KUB reviewed, appears fecal impaction looks similar to yesterday per my personal read -- discussed with radiology, no significant change compared to yesterday KUB, disimpaction attempted but not successful 06/26 - Will switch mineral oil enema to soap suds enema, add lactulose 30 mg tereza to miralax and senokot S. #Sacral Erythema #H/O Pressure Ulcers: Patient with sacral erythema per discussion with RN via TT yesterday. Wound care nurse consulted for further evaluation/recommendations. She saw the wound clinic back in April. Other Chronic Medical Conditions: Depression, GERD, HLD, seasonal allergies --> Continue home meds for these specific conditions. Sodium level remains stable - patient with history of SIADH. 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 PCP: Angie Perez MD, pt is identified as high LACE score on discharge Disposition: From home, PT/OT recommending 24-hour care at home upon discharge. * Patient moved in with Jo-Ann and Jo-Ann's in March from [facility]. Jo-Ann and her provide 24-hour care for her. Patient has a wheelchair and a hospital bed. She is wheelchair bound. She does not use home O2. She is active with [facility] 1x/week and [facility] 1x[facility]month. Plan is for patient to return home when stable and continue with [facility] HH - referral has been sent. Waiting to hear back. Likely dispo tomorrow Admission and Anticipated Discharge Date Admission Date: June 21, 2024 Subjective NAEO Reports feeling much better, denies any concerns No nausea/vomiting Physical Exam Constitutional: WD/WN, vitals as above Respiratory: normal respiratory effort, lungs clear to auscultation Cardiovascular: RRR, no murmur, no edema Gastrointestinal (Abdomen): normal bowel sounds, soft, nontender, no hepatosplenomegaly Results & Data Results & Data Vital Signs (Past 12 Hours) Vital Signs Temp Pulse Resp BP Pulse Ox O2 Del Method 06/27/24 07:15 36.3 C L 78 18 114/73 95 Room Air Medications Administered Home Medications Medication Instructions Recorded Confirmed Last Taken apixaban 2.5 mg tablet (Eliquis) 2.5 mg PO BID 06/21/24 06/21/24 Unknown aspirin 81 mg tablet,delayed 81 mg PO DAILY 06/21/24 06/21/24 Unknown release atorvastatin 40 mg tablet 40 mg PO DAILY 06/21/24 06/21/24 Unknown lisinopril 5 mg tablet 5 mg PO DAILY 06/21/24 06/21/24 Unknown loratadine 10 mg tablet 10 mg PO DAILY 06/21/24 06/21/24 Unknown mirtazapine 15 mg tablet 7.5 mg PO HS 06/21/24 06/21/24 Unknown mometasone 50 mcg/actuation nasal 2 spray intranasal DAILY 06/21/24 06/21/24 Unknown spray omeprazole 20 mg capsule,delayed 20 mg PO DAILY 06/21/24 06/21/24 Unknown release potassium chloride 10 mEq 20 meq PO DAILY 06/21/24 06/21/24 Unknown tablet,extended release(part/cryst) sertraline 25 mg tablet 25 mg PO DAILY 06/21/24 06/21/24 Unknown Active Medications Generic Name Dose Route Start Last Admin Trade Name Freq PRN Reason Stop Dose Admin Acetaminophen 650 mg 06/21/24 08:22 06/25/24 12:01 Acetaminophen 325 Mg Tab PO 07/21/24 08:21 650 mg Q4H PRN Administration Pain or Fever Apixaban 2.5 mg 06/21/24 09:00 06/27/24 08:22 Apixaban 2.5 Mg Tab PO 07/21/24 08:59 2.5 mg BID TEREZA Administration Aspirin 81 mg 06/21/24 09:00 06/27/24 08:22 Aspirin 81 Mg Ectab PO 07/21/24 08:59 81 mg DAILY TEREZA Administration Atorvastatin Calcium 40 mg 06/21/24 09:00 06/27/24 08:22 Atorvastatin 40 Mg Tab PO 07/21/24 08:59 40 mg DAILY TEREZA Administration Fluticasone Propionate 2 sprays 06/21/24 09:00 06/27/24 08:22 Fluticasone Propionate Na Spr 16 Gm Btl NA 07/21/24 08:59 2 sprays DAILY TEREZA Administration Lactulose 30 gm 06/26/24 09:15 06/27/24 08:21 Lactulose Syrup 30 Gm/45 Ml Udp PO 07/26/24 09:14 30 gm QID TEREZA Administration Lisinopril 20 mg 06/21/24 09:45 06/27/24 08:22 Lisinopril 20 Mg Tab PO 07/21/24 09:44 20 mg DAILY TEREZA Administration Loratadine 10 mg 06/21/24 09:00 06/27/24 08:22 Loratadine 10 Mg Tab PO 07/21/24 08:59 10 mg DAILY TEREZA Administration Mineral Oil 133 ml 06/23/24 12:00 06/25/24 12:01 Mineral Oil Enema 133 Ml Btl AR 07/23/24 11:59 133 ml DAILY TEREZA Administration Mirtazapine 7.5 mg 06/21/24 21:00 06/26/24 20:47 Mirtazapine Tab 15 Mg Tab PO 07/21/24 20:59 7.5 mg HS TEREZA Administration Nystatin 1 appln 06/21/24 09:00 06/27/24 08:23 Nystatin Oint 15 Gm Tube EXT 07/21/24 08:59 1 appln BID TEREZA Administration Pantoprazole Sodium 40 mg 06/21/24 09:00 06/27/24 08:22 Pantoprazole 40 Mg Tab PO 07/21/24 08:59 40 mg DAILY TEREZA Administration Polyethylene Glycol 17 gm 06/21/24 09:00 06/27/24 08:22 Polyethylene (Miralax) 17 Gm Pack PO 07/21/24 08:59 17 gm DAILY TEREZA Administration Potassium Chloride 20 meq 06/21/24 09:00 06/27/24 08:22 Potassium Chloride Crtab 20 Meq Tabcr PO 07/21/24 08:59 20 meq DAILY TEREZA Administration Senna/Docusate Sodium 2 tab 06/23/24 12:00 06/27/24 08:22 Docusate Sodium/Senna 50/8.6mg Tab PO 07/23/24 11:59 2 tab QAM TEREZA Administration Sertraline HCl 25 mg 06/21/24 09:00 06/27/24 08:23 Sertraline Hcl 50 Mg Tablet PO 07/21/24 08:59 25 mg DAILY TEREZA Administration
[2024-06-27] MEDS: KETOROLAC TROMETHAMINE 15 MG/ML VIAL IV ONE (16:05)
[2024-06-27] MEDS: LACTATED RINGER'S 500 ML IV ONE (16:11)
[2024-06-27] MEDS: BUTALBITAL/ACETAMIN/CAFFEINE TAB PO STA (18:37)
[2024-06-27] MEDS: MAGNESIUM SULFATE / D5W 1 GM/100 ML BAG IV ONE (18:37)
[2024-06-28 07:42] VITALS: PULSE 67; RESP 20; TEMP 97.5; O2SAT 96
[2024-06-28] MEDS: lisinopril 5 MG TAB PO SCH (08:38)
--- NOTE | 2024-06-28 13:15 | Discharge Summary ---
Discharge Summary Date of Service June 28, 2024 Principal Dx & Hospital Course #1 = Principal Diagnosis (1) Acute UTI: (2) Fecal impaction in rectum: (3) Metabolic encephalopathy: (4) Dementia: (5) SIADH (syndrome of inappropriate ADH production): Plan Ms Analy Haq is an 83y/o F with PMHx significant for SIADH, seasonal allergic rhinitis, history of acute DVT of femoral vein of right lower extremity [on Eliquis], HTN, slow transit constipation, close stable burst fracture of 12 thoracic vertebra with routine healing, spondylolisthesis of lumbar region, history of closed avulsion fracture of greater trochanter of right femur, degenerative disc disease, senile stow porosis, Spencer's palsy, senile dementia, history of CVA, 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 Patient noted to have ESBL UTI and treated with fosfomycin. Patient also with noted fecal impaction which resolved with aggressive bowel regimen. On day of discharge, patient eating well and without acute concerns. Wheelchair transport arranged for discharge home with daughter. #Acute Urinary Tract Infection (UTI) #ESBL E.Coli #Metabolic Encephalopathy - IMPROVED: Patient admitted to the hospital with acute delirium in the setting of senile dementia most likely due to acute UTI. CT head was negative for any acute findings. Possible underlying dementia with not oriented to date, year, president etc. She is pleasantly cooperative today IV Rocephin initially x 3 days transitioned to Fosfomycin 3g po x 1 dose. No further treatment warranted at this time. #Uncontrolled HTN: SBP was initially elevated in the 160s-170s on admission. Patient's lisinopril was increased to 20mg daily; however, patient with hypotension and headache--reduced dosing back to home regimen and encouraged PCP follow up. #Fecal Impaction: CTAP done in ED showed a very large amount of stool in the rectum consistent with fecal impaction. 1 bloody-appearing BM KUB was ordered and showed no significant change in the large rectal stool ball with moderate fecal retention throughout the colon. Likely the blood in her BM was a result of colitis 2/2 fecal impaction. 06/23 - 2 BMs. KUB at that time revealed slight decrease in the size of the stool ball. 06/24 - 3 BMs, KUB 06/24 showing moderate colonic fecal retention with an 8.4cm rectal stool ball. ---> mineral enema. Need to consider manual disimpaction. 2 BMS after mineral enema. Total 5 BMs. 06/25 KUB reviewed, appears fecal impaction looks similar to yesterday per my personal read -- discussed with radiology, no significant change compared to yesterday KUB, disimpaction attempted but not successful 06/26 - Will switch mineral oil enema to soap suds enema, add lactulose 30 mg tereza to miralax and senokot S. Encouraged home bowel regimen to stay in place with senakot and mirlax. Discontinue lactulose 2/2 bloat diarrhea. #Sacral Erythema #H/O Pressure Ulcers: Patient with sacral erythema per discussion with RN via TT yesterday. Wound care nurse consulted for further evaluation/recommendations. Follow up wound care OP Other Chronic Medical Conditions: Depression, GERD, HLD, seasonal allergies --> Continue home meds for these specific conditions. Sodium level remains stable - patient with history of SIADH. Notes For Next Care Provider Patient needs follow up with wound care for pressure wounds Daughter curious about Hospice, consider readdressing conversation Medication Changes From Visit OTC bowel regimen Admission HPI Per Admitting Provider 83-year-old female with past medical history significant for SIADH, seasonal allergic rhinitis, history of acute DVT, hypertension, slow transit constipation, history of closed stable burst fracture of T12 vertebra, spondylolisthesis of lumbar region, senile osteoporosis, history of closed avulsion fracture of greater trochanter of femur on the right side, Spencer's palsy, senile dementia, hemiplegia and hemiparesis on the left nondominant side following stroke, depression was brought in because of confusion and agitation and found to UTI. Patient daughter brought her to the hospital. Currently daughter is not in the hospital. Later was able to talk to daughter on phone.. Currently patient is alert and awake and oriented to name and place. Seems pleasant. Patient states she lives with her but when checked with daughter later that was about one year ago and currently she is living with daughter. Denies any headache. Denies any runny nose or sore throat. Denies cough. Denies chest pain. Denies shortness of breath. Denies nausea. Denies abdominal pain. States she ambulates without support but per daughter she is wheel chair bound for last few years. Says micturating okay. Currently hemodynamics are okay.Could tell her name. Could tell her date of . Knows she is in the hospital. Could not tell current dates.As per daughter she was very anxious and couldn't calm down that the reason patient was brought to the hospital. No fevers or any complaints of pain per daughter. No Nausea/vomitings per daughter. CAn mostly eat anything per daughter but she tries to keep somewhat soft. Past medical history. As mentioned above Past surgical history. Left partial mastectomy. Right hemiarthroplasty partial. Left hip fracture repair Social history. . No smoking. Alcohol occasional. No drug use. Family history. Mother had Alzheimer's disease. Hypertension. Paternal aunt had breast cancer. Paternal grandmother had diabetes. Brother had heart disorder. Father had hypertension and heart disorder. Admission Exam Per Admitting Provider General- Not in distress Head- atraumatic Eyes- PERRL. ENT- oropharynx dry Neck- supple, no JVD. Lungs- clear to auscultation no wheezing or crackles Heart- regular rhythm; no murmur, no gallop. Abdomen- normal bowel sounds, soft, nontender, no distension Extremities- no pretibial edema, no erythema seen Neuro- alert, oriented x 2; PERRL, no facial palsy; no dysarthria; moves extremities. Skin- Erythematous rash seen in Sacral and perineal region Discharge Exam Constitutional WD/WN, vitals as above Respiratory normal respiratory effort, lungs clear to auscultation Cardiovascular RRR, no murmur, no edema Gastrointestinal (Abdomen) normal bowel sounds, soft, nontender, no hepatosplenomegaly Updated Medication List Medication Instructions Recorded Confirmed Type apixaban 2.5 mg tablet (Eliquis) 2.5 mg PO BID 06/21/24 06/21/24 History aspirin 81 mg tablet,delayed 81 mg PO DAILY 06/21/24 06/21/24 History release atorvastatin 40 mg tablet 40 mg PO DAILY 06/21/24 06/21/24 History lisinopril 5 mg tablet 5 mg PO DAILY 06/21/24 06/21/24 History loratadine 10 mg tablet 10 mg PO DAILY 06/21/24 06/21/24 History mirtazapine 15 mg tablet 7.5 mg PO HS 06/21/24 06/21/24 History mometasone 50 mcg/actuation nasal 2 spray intranasal DAILY 06/21/24 06/21/24 History spray omeprazole 20 mg capsule,delayed 20 mg PO DAILY 06/21/24 06/21/24 History release potassium chloride 10 mEq 20 meq PO DAILY 06/21/24 06/21/24 History tablet,extended release(part/cryst) sertraline 25 mg tablet 25 mg PO DAILY 06/21/24 06/21/24 History polyethylene glycol 3350 17 gram 17 g PO DAILY #30 ea 06/28/24 Rx oral powder packet (Miralax) sennosides 8.6 mg-docusate sodium 2 tab PO QAM #60 tabs 06/28/24 Rx 50 mg tablet (Senokot-S) Hospital Stay Data Consultations 06/21/24 03:31 ED Decision to Admit Stat Diagnostic Imagining Performed 06/21/24 01:42 CT abd pelvis wo con Stat CT head/brain wo con Stat Pending Results Patient Have Any Pending Studies at Discharge: No Discharge Instructions Given to Patient (Per Discharging Provider) You were admitted for confusion and found to have severe constipation and urinary tract infection. You completed antibiotics. You were started on aggressive bowel regimen with improvement in constipation. You should consider a daily bowel regimen -Start taking Senokot-S 1-2 tabs in the morning -Start Miralax 1 packet daily or 1-2capfuls daily as needed If no bowel movement consider as needed enemas (fleet) every 2-3 days In case of headache, consider using tylenol 650 mg every 4-6 hours, as well as a magnesium oxide supplement 400mg tweo times a day Encourage hydration The current diet recommendations to help prevent aspiration are honey thick liquids and pureed foods. These are prior recommendations from the Speech pathologist. Total Time Total Time Spent Total Time Spent (In Minutes): 35
[2024-06-28 13:52] VITALS: BP 98/62
== END 2024-06-28 16:56 | disposition home health service (06) | DRG 689 ==
LOC: ED 01:11 → 2N 05:54 → SUATTDRO 05:54 → 2N 09:45 → 3W 15:25

== ENCOUNTER 2024-08-08 19:56 | Inpatient (IN) ==
--- OUTSIDE RECORDS SUMMARY | 2024-08-08 20:01 | External Medical Summary | Summary of Care ---
Author Name Unknown Organization [facility] Address [address] [place] [address] Phone [phone] Care Team Providers Care Digital Sales Executive Name Role Phone Angie Perez MD Primary Care Provider Reason for Referral * Ancillary Services (Within 10 days (routine)) - Authorized Specialty Diagnoses / Procedures Referred By Contac t Referred To Contact Advertising Copywriter Diagnoses Hyperparathyroidism, primary (HCC) Angie Perez MD [address] [place] [address] Referral ID Status Reason Start Date Expiration Date Visits Requested Visits Authorized [id number] Authorized Ancillary Services Required 4 [phone] Question Answer Referral Priority Within [...] on the next service day for the [facility] does not service every geographical location on a daily basis. Contact [facility] Client Services at to find out service days for a specific location. Medical Laboratory [facility] Patient Name: Analy Haq : 1940 Sex: female [address] [facility] [place] [address] Provider: @[email or web address]@? Angie Perez MD? Diagnosis: No diagnosis found. Tests Requested CMP, PTH, 25-hydroxy vitamin D - once starting July 28, 2024 Reason for Visit * Reason Onset Date Comments [facility]: Maintenance 07/28/2024 Encounter Details Date Type Department Care Team (Late st Contact Info) Description 07/28/2024 Telephone [facility], [facility] [address] [place] [address] Elly Galarza RN [address] [place] [address] [facility]: Maintenance Allergies Active Allergy Reactions Criticality Noted Date Comments Bacitracin Itching 02/20/2018 Ezetimibe 09/19/2008 Shellfish Allergy 03/25/2023 Sulfa Antibiotics 12/24/2017 Tramadol Itching 12/24/2017 documented as of this encounter (statuses as of 07/28/2024) Medications Medication Sig Dispensed Refills Start Date End Date Status Acetaminophen 325 MG Oral Tablet (Tylenol) Take by mouth 2 Tablets every 4 hours as needed for Fever >38C(100.5F) or Pain, Breakthrough. 100 Tablet 3 03/14/2022 Active Aspirin 81 MG Oral Tablet Chewable (Aspirin 81) Take 1 Tablet by mouth in the morning. Active Saline Nasal [place] 0.65 % Nasal Solution ([place]) Administer 1 [place] into nostril as needed for Congestion. 12/12/2023 Active Polyethylene Glycol 3350 17 GM/SCOOP [...] at lunchtime 180 Tablet 3 04/07/2024 Active Calmoseptine 0.44-20.6 % External Ointment (Menthol-Zinc Oxide) Apply thin layer to affected area with each change, up to 4 times daily 113 g 1 05/22/2024 Active Mometasone Furoate 50 MCG/ACT Nasal Suspension Administer 2 Sprays into nostril in the morning. 18 g 5 05/29/2024 Active Apixaban 2.5 MG Oral Tablet (Eliquis) Take 1 Tablet by mouth in the morning and 1 Tablet before bedtime. 180 Tablet 3 06/16/2024 Active Sennosides-Docusate Sodium 8.6-50 MG Oral Tablet (Senna Plus) Take 2 Tablets by mouth in the morning. Active documented as of this encounter (statuses as of 07/28/2024) Active Problems Problem Noted Date Diagnosed Date [...] as of this encounter (statuses as of 07/28/2024) Resolved Problems Problem Noted Date Diagnosed Date [...] as of this encounter (statuses as of 07/28/2024) Immunizations Name Administration Dates Next Due COVID-19 mRNA, LNP-s, No Pre serve, 2-Dose Series (Lutonix) 08/19/2021,12/26/2020,12/05/2020 COVID-19, MRNA-LNP, 23-24, P F, 30 [...] Adjuvanted, 65+ Yrs, IM (FLUAD) 07/13/2020 Seasonal Influenza Vac., MDV , IM, 0.5 mL (Fluzone) 07/03/2018,07/07/2013 Seasonal Influenza, High Dos e, Trivalent, PF, IM (Fluzone HD) 07/02/2024,08/05/2014 Seasonal Influenza, Quadriva lent Hd (Fluzone Hd) 09/05/2021 Seasonal Influenza, Quadriva lent Hd, 65+ Yrs 07/26/2023 Seasonal Influenza, Quadriva lent, No Preserve, IM 07/07/2017,07/07/2016,07/07/2015 Seasonal Influenza, Recombin ant, RIV4, PF, (Flublock) 07/03/2018 Seasonal Influenza, Trivalen t, Adjuvanted, 65+ YRS, PF, (Fluad) 07/20/2019 TDAP (age 10 and older)(Boostrix) 10/15/2011 TDAP, Age 7 and older, IM (Adacel) 07/02/2024 Varicella Zoster Vaccine (Adult) 10/19/2010 Zoster Vaccine [...] encounter Miscellaneous Notes * Telephone Encounter - Elly Galarza RN - 07/28/2024 11:14 AM EDT Call rec'd from pt's dtr requesting [facility] for labs ordered by PCP last month. Pt was previously enrolled with [facility] for weekly PT/INRs while on coumadin but has since switchedto Eliquis. Labs needed: CMP, PTH, and 25-hydroxy vitamin D Home phlebotomy referral placed. documented in this encounter Plan of Treatment Upcoming Encounters Date Type Department Care Team (Late st Contact Info) Description 07/29/2024 11:30 AM EDT Home Visit [facility] [address] [place] [address] Sandra Cullen RN [address] [place] [address] 07/30/2024 7:05 AM EDT Laboratory Lab [facility] [address] [place] [address] [facility] [address] [place] [address] 08/10/2024 10:40 AM EST Office Visit Family Practice [facility] [address] [facility] [place] [address] Angie Perez MD [address] [facility] [place] [address] Scheduled Referrals Name Type Priority Associated Diagnoses Orde r Schedule HOME PHLEBOTOMY REFERRAL OP Referral Within 10 days (routine) Hyperparathyroidism, primary (HCC) Ordered: 07/28/2024 Health Maintenance Due Date Last Done Comments Albumin/Creatinine Ratio 1958 Adult Wellness Visit 09/25/2020 09/25/2019 Depression Monitoring 05/18/2022 05/18/2021 DXA Scan 05/02/2024 05/02/2022, 04/07, 12/03/2018, Additional history exists COVID-19 Vaccine ( season) 2024 03/05/2024, 03/05/2024, 07/30/2023, Additional history exists DTap/Tdap Vaccines (3 - Td or Tdap) 07/02/2034 07/02/2024, 10/15/2011 Zoster Vaccines Completed 11/04/2019, 10/08, 05/27/2019, Additional history exists VITAMIN D LEVEL ONCE IN A LIFETIME-USE SMARTSET# 11186 Completed 05/31/2020, 11/25/2019, 08/06/2019, Additional history exists Pneumococcal Vaccine: 65+ Years Completed 06/04/2023, 06/27/2015, 12/18/2011 Influenza Vaccine (FLU shot) Completed , 07/26/2023, 07/23/2022, Additional history exists HPV (Gardasil) Vaccine Aged Out No lo [...] as of this encounter Visit Diagnoses Diagnosis Hyperparathyroidism, primary (HCC)- Primary Primary hyperparathyroidism documented in this encounter Advance Directives Documents on File Type Date Recorded Patient Gunner'S Mate G Expl anation POLST 04/27/2024 8:38 AM OOH-DNR Advance Directives and Living Will 04/21/2024 10:30 AM POA and Living Will Healthcare Agents on File Name Relationship Healthcare Agent Relationship Communication Tank Haq Adult Child First Alternate Health Care Agent (per Health Care Power of Nuclear Fuel Processing Technician document) Jo-Ann Rose Adult Child First Alternate Health Care Agent (per Health Care Power of Nuclear Fuel Processing Technician document) [email or web address] Care Teams Digital Sales Executive Relationship Specialty Start Date End Date Angie Perez MD [address] [place] [address] PCP - General Family Medicine 04/07/24 documented as of this encounter
--- OUTSIDE RECORDS SUMMARY | 2024-08-08 20:01 | External Medical Summary | Summary of Care ---
Author Name Unknown Organization [facility] Address [address] [place] [address] Phone [phone] Care Team Providers Care Quality Improvement Analyst Name Role Phone Angie Perez MD Primary Care Provider [phone] Reason for Visit * Reason Comments Hospital Follow-Up Encounter Details Date Type Department Care Team (Latest Contact Info) Description 07/02/2024 3:40 PM EDT Office Visit Family Practice [facility] [address] [facility] [address] Angie Perez MD [address] [place] [address] Hospital discharge follow-up*; UTI due to extended-spectrum beta lactamase (ESBL) producing Escherichia coli; Metabolic encephalopathy; Fecal impaction (HCC); HTN, goal below 150/90; Primary hyperparathyroidism (HCC); Need for prophylactic vaccination and inoculation against influenza; Need for kmgjljkrft-tbxqrkp-ayixdkgp s (Tdap) vaccine Allergies Active Allergy Reactions Criticality Noted Date Comments Bacitracin Itching 02/20/2018 Ezetimibe 09/19/2008 Shellfish Allergy 03/25/2023 Sulfa Antibiotics 12/24/2017 Tramadol Itching 12/24/2017 documented as of this encounter (statuses as of 07/20/2024) Medications Medication Sig Dispensed Refills Start Date End Date Status Acetaminophen 325 MG Oral Tablet (Tylenol) Take by mouth 2 Tablets every 4 hours as needed for Fever >38C(100.5F) or Pain, Breakthrough. 100 Tablet 3 2 Active Aspirin 81 MG Oral Tablet Chewable (Aspirin 81) Take 1 Tablet by mouth in the morning. Active Saline Nasal [place] 0.65 % Nasal Solution ([place]) Administer 1 [place] into nostril as needed for Congestion. 4 Active Polyethylene Glycol 3350 17 GM/SCOOP [...] before bedtime. 180 Tablet 3 4 Active Docusate Sodium 100 MG Oral Tablet Take 1 Tablet by mouth in the morning. 07/06/20 24 Discontinued Saccharomyces boulardii 250 MG Oral Packet Take 250 mg by mouth in the morning. 4 07/06/20 24 Discontinued Adacel 5-2-15.5 LF-MCG/0.5 Intramuscular Suspension (Pdkmfwz-Ifopbt-Xpvu l Pertussis)Indication s:Need for ejbkszjacn-ryjbyjv-d ertussis (Tdap) vaccine Inject 0.5 mL into a large muscle once for 1 dose. 0.5 mL 4 07/03/20 24 documented as of this encounter (statuses as of 07/20/2024) Active Problems Problem Noted Date Diagnosed Date [...] as of this encounter (statuses as of 07/20/2024) Resolved Problems Problem Noted Date Diagnosed Date [...] as of this encounter (statuses as of 07/20/2024) Immunizations Name Administration Dates Next Due COVID-19 mRNA, LNP-s, No Pre serve, 2-Dose Series ([facility]) 08/19/2021,12/26/2020,12/05/2020 COVID-19, MRNA-LNP, 23-24, P F, 30 MCG/0.3 mL, 12 YRS AND ABOVE, IM ([facility]) 03/05/2024 Covid-19, Mrna, Lnp-s, Pf, B ivalent, 30 Mcg, IM, 12 yrs and above ([facility]) 07/30/2023 H1N1 2009 Influenza, IM 08/10/2009 Pneumococcal [...] Sign Reading Time Taken Comments Blood Pressure 124/70 07/02/2024 3:35 PM EDT Pulse 86 07/02/2024 3:35 PM EDT Temperature 36.6 C (97.8 F) 07/02/2024 3:35 PM ED T Respiratory Rate 16 07/02/2024 3:35 PM EDT Oxygen Saturation 100% 07/02/2024 3:35 PM EDT Inhaled Oxygen Concentration - - [...] as of this encounter Progress Notes * Angie Perez MD - 07/02/2024 3:34 PM EDT Subjective Chief Complaint Patient presents with Hospital Follow-Up HPI: Analy Haq is a 83 year old female. 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 CT head was negative for any acute findings. IV Rocephin initially x 3 days transitioned to Fosfomycin 3g po x 1 dose. CTAP done in ED showed a very large amount of stool in the rectum consistent with fecal impaction. Disimpaction unsuccessful. Given soap suds enema, lactulose 30mg, MiraLAX, and Senokot S. SBP was initially elevated in the 160s-170s on admission.Patient's lisinopril was increased to 20mg daily; however, patient with hypotension and headache, reduced dosing back to home regimen and encouraged PCP follow up. Tests/studies pending at time of discharge: None Home/outpatient services ordered: None Course since hospitalization: Patient presents today with her daughter. She reports she is feeling well. Daughter states she is noticeable improved and less confused. Had large bowel movement Saturday but since then just small amounts. She is taking 2 tablets of Senna in the morning and a daily dose of MiraLAX. Denies urinary symptoms. Reviewed blood pressure today, can remain on original dose of lisinopril. She is due for routine labs. Review of Systems: See HPI Objective BP 124/70 | Pulse 86 | Temp 36.6 C (97.8 F) (Tympanic) | Resp 16 | SpO2 100% Wt Readings from Last 3 Encounters: 01/08/24 52.2 kg (115 lb 1.6 oz) 12/24/23 51.6 kg (113 lb 12.8 oz) 11/27/23 50.8 kg (112 lb) BP Readings from Last 3 Encounters: 07/06/24 124/70 07/02/24 124/70 04/14/24 136/72 General: Well-appearing, no acute distress Cardiovascular: Regular rate and rhythm, no murmur Respiratory: Good respiratory effort, breath sounds equal and clear to auscultation bilaterally Abdomen: Soft, non-distended, non-tender, normoactive bowel sounds Neurological: Alert and oriented Psychiatric: Appropriate mood and affect Assessment & Plan 1. Hospital discharge follow-up - DISCH MED RECON CUR MED LIS 2. UTI due to extended-spectrum beta lactamase (ESBL) producing Escherichia coli Resolved. No further action required. 3. Metabolic encephalopathy Resolved. No further action required. 4. Fecal impaction (HCC) Resolved. Discussed importance of continuing daily bowel regimen. Can titrate up on MiraLAX as needed. Continue with stool softener. 5. HTN, goal below 150/90 Well-controlled. Continue current medications. 6. Primary hyperparathyroidism (HCC) - PTH; Future - 25-HYDROXY VITAMIN D; Future - COMPREHENSIVE METABOLIC PANEL; Future 7. Need for prophylactic vaccination and inoculation against influenza - INFLUENZA VAC., TRIVALENT, HD, PF, 65 AND ABOVE, 0.5 ML IM (FLUZONE HD) 8. Need for pwpfrhlakb-kbvcact-eusvobetk (Tdap) vaccine - Adacel 5-2-15.5 LF-MCG/0.5 Intramuscular Suspension (Emxohhv-Lykjco-Ofbcu Pertussis); Inject 0.5 mL into a large muscle once for 1 dose. Dispense: 0.5 mL; Refill: 0 - TDAP (AGE 7 AND OLDER), ADACEL Follow Up: Return for follow-up as scheduled or sooner as needed. This note was electronically signed by Angie Perez MD documented in this encounter Nursing Notes * Lula Ledbetter LPN - 07/02/2024 3:37 PM EDT Analy Haq presents for hospital follow up. Medications & HM reviewed. Went to ER for constipation. Discharged Saturday had Bm saturday but has only had small amounts since then worried about it happening again * Lula Ledbetter LPN - 07/02/2024 3:32 PM EDT Analy Haq presents for hospital follow up. Medications & HM reviewed. documented in this encounter Plan of Treatment Upcoming Encounters Date Type Department Care Team (Late st Contact Info) Description 07/29/2024 11:30 AM EDT Home Visit [facility] [address] [address] Sandra Cullen, RN [address] [place] [address] 08/10/2024 10:40 AM EST Office Visit Family [facility] [address] [place] [address] [place] [address] Angie Perez MD [address] [place] [address] Scheduled Orders Name Type Priority Associated Diagnoses Orde r Schedule PTH Lab Routine Primary hyperparathyroidism (HCC) Expected: 07/02/2024 (Approximate), Expires: 07/02/2025 25-HYDROXY VITAMIN D Lab Routine Primary hyperparathyroidism (HCC) Expected: 07/02/2024 (Approximate), Expires: 07/02/2025 COMPREHENSIVE METABOLIC PANEL Lab Routine Primary hyperparathyroidism (HCC) Expected: 07/02/2024 (Approximate), Expires: 07/02/2025 Health Maintenance Due Date Last Done Comments [...] D LEVEL ONCE IN A LIFETIME-USE SMARTSET# [id number] Completed 05/31/2020, 11/25/2019, 08/06/2019, Additional history exists [...] as of this encounter Visit Diagnoses Diagnosis Hospital discharge follow-up- Primary Other follow-up examination UTI due to extended-spectrum beta lactamase (ESBL) producing Escherichia coli Metabolic encephalopathy Fecal impaction (HCC) HTN, goal below 150/90 Primary hyperparathyroidism (HCC) Primary hyperparathyroidism Need for prophylactic vaccination and inoculation against influenza Need for zwckixkeqv-pxfpvvg-qvgvzjdsi (Tdap) vaccine Need for prophylactic vaccination with combined fwkkuwxglx-ekllpai-hloqnlkiq (DTP) vaccine documented in this encounter Advance Directives Documents on File Type Date Recorded Patient Certified Nuclear Medicine Technologist Expl anation POLST 04/27/2024 8:38 AM OOH-DNR Advance Directives and Living Will 04/21/2024 10:30 AM POA and Living Will Healthcare Agents on File Name Relationship Healthcare Agent Relationship Communication Tank Haq Adult Child First Alternate Health Care Agent (per Health Care Power of Guest Services document) Jo-Ann Rose Adult Child First Alternate Health Care Agent (per Health Care Power of Guest Services document) [email or web address] Care Teams Quality Improvement Analyst Relationship Specialty Start Date End Date Angie Perez MD [address] [place] [address] PCP - General Family Medicine 04/07/24 documented as of this encounter"
--- OUTSIDE RECORDS SUMMARY | 2024-08-08 20:01 | External Medical Summary | Summary of Care ---
Author Name Unknown Organization [facility] Address [address] [place] [address] Phone [phone] Care Team Providers Care Fountain Vending Mechanic Name Role Phone Angie Perez MD Primary Care Provider [phone] Encounter Details Date Type Department Care Team (Late st Contact Info) Description 07/06/2024 4:00 PM EDT [facility] Visit [facility] [address] [facility] [address] [address] Sandra Cullen RN [address] [place] [address] Allergies Active Allergy Reactions Criticality Noted Date Comments Bacitracin Itching 02/20/2018 Ezetimibe 09/19/2008 Shellfish Allergy 03/25/2023 Sulfa Antibiotics 12/24/2017 Tramadol Itching 12/24/2017 documented as of this encounter (statuses as of 07/09/2024) Medications Medication Sig Dispensed Refills Start Date End Date Status Acetaminophen 325 MG Oral Tablet (Tylenol) Take by mouth 2 Tablets every 4 hours as needed for Fever >38C(100.5F) or Pain, Breakthrough. 100 Tablet 3 2 Active Aspirin 81 MG Oral Tablet Chewable (Aspirin 81) Take 1 Tablet by mouth in the morning. Active Saline Nasal [place] 0.65 % Nasal Solution ([place]) Administer 1 [place] into nostril as needed for Congestion. 4 [...] before bedtime. 180 Tablet 3 4 Active Sennosides-Docusate Sodium 8.6-50 MG Oral Tablet (Senna Plus) Take 2 Tablets by mouth in the morning. Active Docusate Sodium 100 MG Oral Tablet Take 1 Tablet by mouth in the morning. 07/06/20 24 Discontinued Saccharomyces boulardii 250 MG Oral Packet Take 250 mg by mouth in the morning. 07/06/20 24 Discontinued documented as of this encounter (statuses as of 07/09/2024) Active Problems Problem Noted Date Diagnosed Date [...] as of this encounter (statuses as of 07/09/2024) Resolved Problems Problem Noted Date Diagnosed Date [...] as of this encounter (statuses as of 07/09/2024) Immunizations Name Administration Dates Next Due COVID-19 mRNA, LNP-s, No Pre serve, 2-Dose Series (Obvious) 08/19/2021,12/26/2020,12/05/2020 COVID-19, MRNA-LNP, 23-24, P F, 30 MCG/0.3 mL, 12 YRS AND ABOVE, IM ([facility] 03/05/2024 Covid-19, Mrna, Lnp-s, Pf, B ivalent, 30 Mcg, IM, 12 yrs and above (Obvious) 07/30/2023 H1N1 2009 Influenza, IM 08/10/2009 Pneumococcal [...] Reading Time Taken Comments Blood Pressure 124/70 07/06/2024 4:33 PM EDT Pulse 75 07/06/2024 4:33 PM EDT Temperature 36.5 C (97.7 F) 07/06/2024 4:33 PM ED T Respiratory Rate 14 07/06/2024 4:33 PM EDT Oxygen Saturation 96% 07/06/2024 4:33 PM EDT Inhaled Oxygen Concentration - - [...] Progress Notes * Sandra Cullen RN - 07/06/2024 4:28 PM EDT SITUATION: Return BACKGROUND: Hx as reviewed Was at 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 11/2023, [facility], CVA 03/2023 - moved in with Daughter 06/21- - [place], UTI, constipation ACP Ramirez Info: DNR. DNI. Comfort measures only. Do not send to hospital unless comfort cannot be achieved at home. Sandra Cullen RN 04/14/2024 3:28 PM ASSESSMENT: Had restlessness, confusion and agitation with recent uti Has returned to baseline No constipation with use of Miralax daily, 1 to 2 doses daily along with Senna No open areas on skin HH nurse visiting, has refused to participate in PT TREATMENT/PLAN: DNR/DNI LW/MPOA, POLST , OOH DNR in home [facility] HH - SN Mobilizes with w/c (L hemiplegia) Full transfer with 2 assist or Shahriar Lift Enrolled with Mobile Phlebotomy Using Zinc Oxide/Calmoseptine to prevent pressure ulcers Reposition q2h Pressure relief cushion on W/C and air matress on bed - continue to use Continue high protein diet (pt likes protein and eats multiple servings daily Prone to UTI's, incontinent and may need straight cath if confused, agitated Family provides all care Physical Exam: Physical Exam Constitutional: Appearance: She is normal weight. HENT: Head: Normocephalic and atraumatic. Nose: Nose normal. Mouth/Throat: Mouth: Mucous membranes are moist. Cardiovascular: Rate and Rhythm: Normal rate and regular rhythm. Pulses: Normal pulses. Heart sounds: Normal heart sounds. Pulmonary: Effort: Pulmonary effort is normal. No respiratory distress. Breath sounds: Rales (faint, LLL) present. No wheezing or rhonchi. Abdominal: General: There is no distension. Palpations: Abdomen is soft. Musculoskeletal: Right lower leg: No edema. Left lower leg: No edema. Skin: General: Skin is warm and dry. Capillary Refill: Capillary refill takes less than 2 seconds. Neurological: General: No focal deficit present. Mental Status: She is alert. Mental status is at baseline. Motor: Weakness (legs, chronic, at baseline) present. Psychiatric: Mood and Affect: Mood normal. Behavior: Behavior normal. Thought Content: Thought content normal. Judgment: Judgment normal. Review of Systems: Review of Systems Constitutional: Negative. HENT: Negative. Eyes: Negative. Respiratory: Negative. Cardiovascular: Negative. Gastrointestinal: Negative. Negative for abdominal distention, abdominal pain, constipation and nausea. Endocrine: Negative. Genitourinary: Negative. Negative for dysuria. Musculoskeletal: Positive for arthralgias and gait problem (w/c bound, transfer with assist only). Skin: Negative. Negative for wound. Allergic/Immunologic: Negative. Neurological: Positive for dizziness (occasional) and weakness (L sided weakness d/t CVA, RLE weakness). Hematological: Negative. Psychiatric/Behavioral: Positive for confusion (mild, intermittent - at baseline). Negative for behavioral problems, hallucinations and sleep disturbance. The patient is not nervous/anxious. Care Plan Goal Progress: no falls Orders Placed: No orders of the defined types were placed in this encounter. none Medications Given: none Care Gaps: Fall risk documented in this encounter Plan of Treatment Upcoming Encounters Date Type Department Care Team (Late st Contact Info) Description 07/29/2024 11:30 AM EDT Home Visit [facility] [address] [place] [address] Sandra Cullen, RN [address] [place] [address] 08/10/2024 10:40 AM EST Office Visit Family Practice [facility] [place] [address] [facility] [address] [place] [address] Angie Perez MD [address] [facility] [place] [address] Health Maintenance Due Date Last Done Comments [...] D LEVEL ONCE IN A LIFETIME-USE SMARTSET# [id number] Completed 05/31/2020, 11/25/2019, 08/06/2019, Additional history exists [...] Documents on File Type Date Recorded Patient Space Officer Fanny grullon POLST 04/27/2024 8:38 AM OOH-DNR Advance Directives and Living Will 04/21/2024 10:30 AM POA and Living Will Healthcare Agents on File Name Relationship Healthcare Agent Relationship Communication Tank Haq Adult Child First Alternate Health Care Agent (per Health Care Power of Toy Department Manager document) Jo-Ann Milton Adult Child First Alternate Health Care Agent (per Health Care Power of Toy Department Manager document) [email or web address] Care Teams Fountain Vending Mechanic Relationship Specialty Start Date End Date Angie Perez MD [address] [place] [address] PCP - General Family Medicine 04/07/24 documented as of this encounter
--- OUTSIDE RECORDS SUMMARY | 2024-08-08 20:01 | External Medical Summary ---
Author Name Unknown Address Unknown Organization [id number] [place] [address] [place] [address] Laboratory Report Ordering Provider Test Date Status WES JOSEPH 07/30/2024 07:57:00 Final Deficient: <20 ng/mL
Ins ufficient: 20-29 ng/mL
Recommended/Optimum:30-50 ng/mL

Vitamin D intoxication is rare. If suspicious of Vitamin D toxicity, evaluation of serum Calcium and PTH is recommended. Observation Date Value Abnormality Reference (Units ) Status 25-OH Vitamin D total 07/30/2024 07:57:00 15 Below low normal >19 (ng/mL) Final Performing Location [facility] [place] [address] [place] [address]
--- OUTSIDE RECORDS SUMMARY | 2024-08-08 20:01 | External Medical Summary ---
Author Name Unknown Address Unknown Organization [id number][place] [place] [address] [facility] [address] Laboratory Report Ordering Provider Test Date Status WES JOSEPH 07/30/2024 07:57:00 Final Observation Date Value Abnormality Reference (Units ) Status BUN 07/30/2024 07:57:00 27 Above high normal 6-20 (mg/dL) Final Creatinine 07/30/2024 07:57:00 0.8 0.5-1.0 (mg/dL) Final Glomerular filtration rate/1.73 sq M.predicted [Volume Rate/Area] in Serum, Plasma or Blood by Creatinine-based formula (CKD-EPI) 07/30/2024 07:57:00 69 >=60 (mL/min) Final eGFR is calculated based on the CKD-EPI 2020 equation. Sodium 07/30/2024 07:57:00 142 135-146 (m mol/L) Final Potassium 07/30/2024 07:57:00 4.5 3.5-5.1 (m mol/L) Final Cl 07/30/2024 07:57:00 110 Above high normal 98 -107 (mmol/L) Final CO2 07/30/2024 07:57:00 23 22-32 (mmo l/L) Final Anion gap 07/30/2024 07:57:00 9 7-15 (mmol /L) Final Glucose 07/30/2024 07:57:00 93 70-120 (mg /dL) Final Albumin 07/30/2024 07:57:00 3.7 Below low normal 3.8 -5.0 (g/dL) Final AST (Aspartate aminotransferase) 07/30/2024 07:57:00 15 10-35 (U/L) Fin al Results may be falsely eleva david due to hemolysis. Alk Phos 07/30/2024 07:57:00 117 35-130 (U/ L) Final Bilirubin, Total 07/30/2024 07:57:00 <0.2 <=1 .2 (mg/dL) Final Calcium 07/30/2024 07:57:00 9.6 8.4-10.2 ( mg/dL) Final Protein 07/30/2024 07:57:00 6.1 6.0-8.3 (g /dL) Final ALT (Alanine aminotransferase) 07/30/2024 07:57:00 7 Below low normal 10-35 (U/L) Final Performing Location [facility] [place] [facility] [address] [facility] [address]
--- OUTSIDE RECORDS SUMMARY | 2024-08-08 20:01 | External Medical Summary ---
Author Name Unknown Address Unknown Organization [id number]:[facility] [place] - [address] [place] [address] Laboratory Report Ordering Provider Test Date Status WES JOSEPH 07/30/2024 07:57:00 Final Observation Date Value Abnormality Reference (Units ) Status Parathyrin.intact [Mass/volume] in Serum or Plasma 07/30/2024 07:57:00 78 Above high normal 15-65 (pg/mL) Final Performing Location [facility] [place] - [address] [place] [address]
--- OUTSIDE RECORDS SUMMARY | 2024-08-08 20:01 | External Medical Summary | Summary of Care ---
Author Name Unknown Organization [facility] Address [address] [place] [address] Phone [phone] Care Team Providers Care Practice Architect Name Role Phone Angie Perez MD Primary Care Provider [phone] Reason for Visit * Reason Onset Date Comments Urinary Tract Infection Symptoms 08/08/2024 Encounter Details Date Type Department Care Team (Late st Contact Info) Description 08/08/2024 Telephone Family Practice [address] [place] [address] [address] [place] [address] Oleg Soriano, [address] [place] [address] Urinary Tract Infection Symptoms Allergies Active Allergy Reactions Criticality Noted Date Comments Bacitracin Itching 02/20/2018 Ezetimibe 09/19/2008 Shellfish Allergy 03/25/2023 Sulfa Antibiotics 12/24/2017 Tramadol Itching 12/24/2017 documented as of this encounter (statuses as of 08/08/2024) Medications Medication Sig Dispensed Refills Start Date End Date Status Acetaminophen 325 MG Oral Tablet (Tylenol) Take by mouth 2 Tablets every 4 hours as needed for Fever >38C(100.5F) or Pain, Breakthrough. 100 Tablet 3 03/14/2022 Active Aspirin 81 MG Oral Tablet Chewable (Aspirin 81) Take 1 Tablet by mouth in the morning. Active Saline Nasal [place] 0.65 % Nasal Solution ([place]) Administer 1 [place] into nostril as needed for Congestion. 12/12/2023 [...] Tablets by mouth in the morning. Active Cephalexin 500 MG Oral Capsule Take 1 Capsule by mouth in the morning and 1 Capsule before bedtime. Do all this for 7 days. 14 Capsule 08/08/2024 Active documented as of this encounter (statuses as of 08/08/2024) Active Problems Problem Noted Date Diagnosed Date [...] as of this encounter (statuses as of 08/08/2024) Resolved Problems Problem Noted Date Diagnosed Date [...] as of this encounter (statuses as of 08/08/2024) Immunizations Name Administration Dates Next Due COVID-19 mRNA, LNP-s, No Pre serve, 2-Dose Series ([employer]) 08/19/2021,12/26/2020,12/05/2020 COVID-19, MRNA-LNP, PF, 30 M CG/0.3 mL, 12 YRS AND ABOVE, IM ([facility]) 03/05/2024 Covid-19, Mrna, Lnp-s, Pf, B ivalent, 30 Mcg, IM, 12 yrs and above ([employer]) 07/30/2023 H1N1 2009 Influenza, IM 08/10/2009 Pneumococcal [...] 05/18/2021 Hunger Vital Sign Answer Date Recorded Within the past 12 months, y ou worried that your food would run out before you got the money to buy more. Never true 08/02/20 24 Within the past 12 months, t he food you bought just didn't last and you didn't have money to get more. Never true 08/02/2024 Childcare Answer Date Recorded Do you feel overwhelmed with taking care of a child, family member or friend? No 08/02/2024 Does your family need help f inding childcare? (Household - for ages 0-17 years) Not on file 08/02/2024 Clothing Answer Date Recorded Have you been unable to get clothing when it was really needed? No 08/02/2024 Is your family able to get c lothes or diapers when needed? (Household - for ages 0-17 years) Not on file 08/02/2024 Personal Safety Answer Date Recorded Do you feel unsafe or have concerns for your saf ety? No 08/02/2024 Do you have concerns for you r family's safety? (Household - for ages 0-17 years) Not on file 08/02/2024 Utilities Answer Date Recorded Do you have trouble paying y our heating, water, or electric bill? No 08/02/2024 Is your family able to pay t he heat, water, or electric bill? (Household - for ages 0-17 years) Not on file 08/02/2024 Does your family have access to good internet? (Household - for ages 0-17 years) Not on file 08/02/2024 Employment Status Answer Date Recorded Are you unemployed or without regular income? No 08/02/2024 Does the household have a re gular source of income? (Household - for ages 0-17 years) Not on file 08/02/2024 Social Connections Answer Date Recorded How often do you feel lonely or isolated from th ose around you? Never 08/02/2024 Financial Resource Strain Answer Date R ecorded Do you have any trouble payi ng for your medications, or do you think you might in the future? No 08/02/2024 Does your family have troubl e paying for medicine? (Household - for ages 0-17 years) Not on file 08/02/2024 Transportation Needs Answer Date Record ed Do you have trouble getting a ride to medical visits or work? (Adult - for ages 18 years and over) Not on file 08/02/2024 Does your family have a hard time getting a ride to doctors visits? (Household - for ages 0-17 years) Not on file 08/02/2024 Has lack of transportation k ept you from medical appointments, meetings, work, or from getting things needed for daily living? Check all that apply. No 08/02/2024 Do you (or your family) have trouble finding or paying for a ride (transportation)? (Household - for ages 0-17 years) Not on file 08/02/2024 Housing Stability Answer Date Recorded Do you currently live in a s helter or have no steady place to sleep at night? No 08/02/2024 Do you think you are at risk of becoming homeless? (Adult - for ages 18 years and over) Not on file 08/02/2024 Does your family worry about paying for your home or becoming homeless? (Household - for ages 0-17 years) Not on file 1 Are you homeless or worried that you might be in the future? No 08/02/2024 Are you (or your family) markel eless or worried that you might be in the future? (Household - for ages 0-17 years) Not on file Food Insecurity Answer Date Recorded Do you need food for this week? No 08/02/2024 Are you able to get enough f ood for your family? (Household - for ages 0-17 years) Not on file 08/02/2024 Does your family need food t his week? (Household - for ages 0-17 years) Not on file 08/02/2024 Do you always have enough fo od for your family? (Household - for ages 0-17 years) Not on file 08/02/2024 Sex and Gender Information Value Date Recorded [...] encounter Miscellaneous Notes * Telephone Encounter - Oleg Soriano DO - 08/08/2024 6:42 PM EDT Spoke w daughter Keflex sent documented in this encounter Plan of Treatment Upcoming Encounters Date Type Department Care Team (Late st Contact Info) Description 08/10/2024 10:40 AM EST Office Visit Family Practice [facility] [address] [place] [address] Angie Perez MD [address] [place] [address] 09/02/2024 9:40 AM EST [facility] [address] [facility] [place] [address] Julissa Christopher, Community Health Teamcenter Consultant [address] [place] [facility] [place] [address] Health Maintenance Due Date Last Done Comments Albumin/Creatinine Ratio 1958 Adult Wellness Visit 09/25/2020 09/25/2019 Depression Monitoring 05/18/2022 05/18/2021 DXA Scan 05/02/2024 05/02/2022, 04/07, 12/03/2018, Additional history exists COVID-19 Vaccine ( season) 2024 03/05/2024, 03/05/2024, 07/30/2023, Additional history exists DTap/Tdap Vaccines (3 - Td or Tdap) 07/02/2034 07/02/2024, 10/15/2011 Zoster Vaccines Completed 11/04/2019, 10/08, 05/27/2019, Additional history exists Pneumococcal Vaccine: 65+ Years Completed 06/04/2023, 06/27/2015, 12/18/2011 Influenza Vaccine (FLU shot) Completed , 07/26/2023, 07/23/2022, Additional history exists VITAMIN D LEVEL ONCE IN A LIFETIME-USE SMARTSET# [id number] Completed 07/30/2024, 05/31/2020, 11/25/2019, Additional history exists HPV (Gardasil) Vaccine Aged [...] Documents on File Type Date Recorded Patient Lead Medical Technologist Fanny sanjuanadudley POL 04/27/2024 8:38 AM OOH-DNR Advance Directives and Living Will 04/21/2024 10:30 AM POA and Living Will Healthcare Agents on File Name Relationship Healthcare Agent Relationship Communication Tank Haq Adult Child First Alternate Health Care Agent (per Health Care Power of Exerciser document) Jo-Ann Rose Adult Child First Alternate Health Care Agent (per Health Care Power of Exerciser document) [email or web address] Care Teams Practice Architect Relationship Specialty Start Date End Date Angie Perez MD [address] [place] [address] PCP - General Family Medicine 04/07/24 documented as of this encounter
--- OUTSIDE RECORDS SUMMARY | 2024-08-08 20:01 | External Medical Summary | Summary of Care ---
Author Name Unknown Organization [facility] Address [address] [place] [address] Phone [phone] Care Team Providers Care Senior Mainframe Developer Name Role Phone Angie Perez MD Primary Care Provider [phone] Encounter Details Date Type Department Care Team (Late st Contact Info) Description 07/29/2024 11:30 AM EDT Home Visit [facility] [address] [facility] [place] [address] Sandra Cullen RN [address] [facility] [place] [address] Arrived Allergies Active Allergy Reactions Criticality Noted Date Comments Bacitracin Itching 02/20/2018 Ezetimibe 09/19/2008 Shellfish Allergy 03/25/2023 Sulfa Antibiotics 12/24/2017 Tramadol Itching 12/24/2017 documented as of this encounter (statuses as of 07/29/2024) Medications Medication Sig Dispensed Refills Start Date End Date Status Acetaminophen 325 MG Oral Tablet (Tylenol) Take by mouth 2 Tablets every 4 hours as needed for Fever >38C(100.5F) or Pain, Breakthrough. 100 Tablet 3 03/14/2022 Active Aspirin 81 MG Oral Tablet Chewable (Aspirin 81) Take 1 Tablet by mouth in the morning. Active Saline Nasal [place] 0.65 % Nasal Solution ([place]) Administer 1 [place] into nostril as needed for Congestion. 12/12/2023 [...] as of this encounter (statuses as of 07/29/2024) Active Problems Problem Noted Date Diagnosed Date [...] as of this encounter (statuses as of 07/29/2024) Resolved Problems Problem Noted Date Diagnosed Date [...] as of this encounter (statuses as of 07/29/2024) Immunizations Name Administration Dates Next Due COVID-19 mRNA, LNP-s, No Pre serve, 2-Dose Series ([facility]) 08/19/2021,12/26/2020,12/05/2020 COVID-19, MRNA-LNP, 23-24, P F, 30 MCG/0.3 mL, 12 YRS AND ABOVE, IM ([facility]) 03/05/2024 Covid-19, Mrna, Lnp-s, Pf, B ivalent, [...] Sign Reading Time Taken Comments Blood Pressure 122/58 07/29/2024 11:49 AM EDT Pulse 72 07/29/2024 11:49 AM EDT Temperature 36.4 C (97.5 F) 07/29/2024 11:49 AM E DT Respiratory Rate - - Oxygen Saturation 97% 07/29/2024 11:49 AM EDT Inhaled Oxygen Concentration - - [...] of this encounter Progress Notes * Sandra Cullen, RN - 07/29/2024 12:46 PM EDT Current Concerns: Return Treatment/Plan: PRIMARY CARE AT HOME DNR/DNI LW/MPOA, POLST and OOH DNR in home VNA HH - [...] normal. No respiratory distress. Breath sounds: Rales present. No wheezing or rhonchi. Abdominal: General: [...] Motor: Weakness (legs, chronic, at baseline) present. Gait: Gait abnormal. Psychiatric: Mood and Affect: Mood normal. Behavior: [...] and weakness (L sided weakness d/t CVA, at baseline). Hematological: Negative. Psychiatric/Behavioral: Positive for confusion (mild, intermittent - at baseline). Negative for behavioral problems, hallucinations and sleep disturbance. The patient is not nervous/anxious. Care Plan Goal Progress: Patient will remain free of falls. (Progressing) Start: 07/09/24 Expected End: 03/05/25 Goal Note Has been d/c'd from PT/OT, daughter assists with transfers and pt uses w/c for any distance in home as well as outside of home Orders Placed: No orders of the defined types were placed in this encounter. Medications Given: none Care Gaps: Care Gaps Care gaps closed this contact:: Insurance coverage/benefits;Plan of Care (POC) (07/29/24 5450) Type of Insurance coverage/benefits addressed: Education regarding [employer] Health Plan ([facility]) insurance plans (07/29/24 2903) documented in this encounter Plan of Treatment Upcoming Encounters Date Type Department Care Team (Late st Contact Info) Description 07/30/2024 7:05 AM EDT Laboratory Lab Mobile Phlebotomy [facility] [address] [place] [address] [facility], [facility] Mobile Home Draw [address] [place] [address] 08/10/2024 10:40 AM EST Office Visit [facility] Awilda Smith [address] [place] [address] Angie Perez MD [address] [facility] [place] [address] Health Maintenance Due Date Last Done Comments [...] D LEVEL ONCE IN A LIFETIME-USE SMARTSET# [id number] Completed 05/31/2020, 11/25/2019, 08/06/2019, Additional history exists [...] Documents on File Type Date Recorded Patient Clinical Assistant Professor Expl anation POLST 04/27/2024 8:38 AM OOH-DNR Advance Directives and Living Will 04/21/2024 10:30 AM POA and Living Will Healthcare Agents on File Name Relationship Healthcare Agent Relationship Communication Tank Haq Adult Child First Alternate Health Care Agent (per Health Care Power of Payroll Tax Analyst document) Jo-Ann Rose Adult Child First Alternate Health Care Agent (per Health Care Power of Payroll Tax Analyst document) [email or web address] Care Teams Senior Mainframe Developer Relationship Specialty Start Date End Date Angie Perez MD [address] [place] [address], [place] [address] PCP - General Family Medicine 04/07/24 documented as of this encounter
--- OUTSIDE RECORDS SUMMARY | 2024-08-08 20:01 | External Medical Summary | Summary of Care ---
Author Name Unknown Organization [facility] Address [address] [place] [address] Phone [phone] Care Team Providers Care Sand Worker Name Role Phone Angie Perez MD Primary Care Provider [phone] Reason for Visit * Reason Onset Date Comments Appointment 07/30/2024 Encounter Details Date Type Department Care Team (Late st Contact Info) Description 07/30/2024 Telephone [facility] [place] [address] [place] [address] Anahi Fierro OSA [address] [place], [place] [id number] Appointment (/) Allergies Active Allergy Reactions Criticality Noted Date Comments Bacitracin Itching 02/20/2018 Ezetimibe 09/19/2008 Shellfish Allergy 03/25/2023 Sulfa Antibiotics 12/24/2017 Tramadol Itching 12/24/2017 documented as of this encounter (statuses as of 07/30/2024) Medications Medication Sig Dispensed Refills Start Date End Date Status Acetaminophen 325 MG Oral Tablet (Tylenol) Take by mouth 2 Tablets every 4 hours as needed for Fever >38C(100.5F) or Pain, Breakthrough. 100 Tablet 3 03/14/2022 Active Aspirin 81 MG Oral Tablet Chewable (Aspirin 81) Take 1 Tablet by mouth in the morning. Active Saline Nasal [place] 0.65 % Nasal Solution ([place]) Administer 1 [place] into nostril as needed for Congestion. 12/12/2023 [...] as of this encounter (statuses as of 07/30/2024) Active Problems Problem Noted Date Diagnosed Date [...] as of this encounter (statuses as of 07/30/2024) Resolved Problems Problem Noted Date Diagnosed Date [...] as of this encounter (statuses as of 07/30/2024) Immunizations Name Administration Dates Next Due COVID-19 mRNA, LNP-s, No Pre serve, 2-Dose Series ([employer]) 08/19/2021,12/26/2020,12/05/2020 COVID-19, MRNA-LNP, 23-24, P F, 30 MCG/0.3 mL, 12 YRS AND ABOVE, IM ([facility]) 03/05/2024 Covid-19, Mrna, Lnp-s, Pf, B [...] Telephone Encounter - Anahi Fierro OSA - 07/30/2024 12:18 PM EDT Request to schedule a routine well visit with [facility] the end of Aug I found 09/01@940 and called but had to lmom documented in this encounter Plan of Treatment Upcoming Encounters Date Type Department Care Team (Late st Contact Info) Description 08/10/2024 10:40 AM EST Office Visit Family [facility] [address] [facility] [place] [address] Angie Perez MD [address] [facility] [place] [address] 09/01/2024 9:40 AM EST Home Visit Care Coordination and Integration [address] [place] [address] Julissa Christopher, Community Health Supervisor [employer] [place] [address] [place] [address] Health Maintenance Due Date Last Done Comments [...] D LEVEL ONCE IN A LIFETIME-USE SMARTSET# [id number] Completed 05/31/2020, 11/25/2019, 08/06/2019, Additional history exists [...] Documents on File Type Date Recorded Patient Intelligence Research Specialist Expl anation POLST 04/27/2024 8:38 AM OOH-DNR Advance Directives and Living Will 04/21/2024 10:30 AM POA and Living Will Healthcare Agents on File Name Relationship Healthcare Agent Relationship Communication Tank Haq Adult Child First Alternate Health Care Agent (per Health Care Power of Internal Grinder document) Jo-Ann Rose Adult Child First Alternate Health Care Agent (per Health Care Power of Internal Grinder document) [email or web address] Care Teams Sand Worker Relationship Specialty Start Date End Date Angie Perez MD [address] [facility] [place] [address] PCP - General Family Medicine 04/07/24 documented as of this encounter
--- OUTSIDE RECORDS SUMMARY | 2024-08-08 20:01 | External Medical Summary | Summary of Care ---
Author Name Unknown Organization [facility] Address [address] [place] [address] Phone [phone] Care Team Providers Care Photolithographic Stripper Name Role Phone Angie Perez MD Primary Care Provider [phone] Reason for Visit * Reason Onset Date Comments [facility]: Engagement 07/31/2024 Encounter Details Date Type Department Care Team (Late st Contact Info) Description 07/31/2024 Telephone [facility], [facility] [address] [facility] [place] [address] Annette Romeo OSA [address] [place] [address] [facility]: Engagement Allergies Active Allergy Reactions Criticality Noted Date Comments Bacitracin Itching 02/20/2018 Ezetimibe 09/19/2008 Shellfish Allergy 03/25/2023 Sulfa Antibiotics 12/24/2017 Tramadol Itching 12/24/2017 documented as of this encounter (statuses as of 07/31/2024) Medications Medication Sig Dispensed Refills Start Date End Date Status Acetaminophen 325 MG Oral Tablet (Tylenol) Take by mouth 2 Tablets every 4 hours as needed for Fever >38C(100.5F) or Pain, Breakthrough. 100 Tablet 3 03/14/2022 Active Aspirin 81 MG Oral Tablet Chewable (Aspirin 81) Take 1 Tablet by mouth in the morning. Active Saline Nasal [place] 0.65 % Nasal Solution ([place]) Administer 1 [place] into nostril as needed for Congestion. 12/12/2023 [...] as of this encounter (statuses as of 07/31/2024) Active Problems Problem Noted Date Diagnosed Date [...] as of this encounter (statuses as of 07/31/2024) Resolved Problems Problem Noted Date Diagnosed Date [...] as of this encounter (statuses as of 07/31/2024) Immunizations Name Administration Dates Next Due COVID-19 mRNA, LNP-s, No Pre serve, 2-Dose Series (Pfizer) 08/19/2021,12/26/2020,12/05/2020 COVID-19, MRNA-LNP, 23-24, P F, 30 MCG/0.3 mL, 12 YRS AND ABOVE, IM ([facility]) 03/05/2024 Covid-19, Mrna, Lnp-s, Pf, B ivalent, [...] Telephone Encounter - Annette Romeo OSA - 07/31/2024 8:53 AM EDT Per Request reschedule appt.. Called s/w pt she advisd 09/02 at 9:40am is a good date and time. documented in this encounter Plan of Treatment Upcoming Encounters Date Type Department Care Team (Late st Contact Info) Description 08/10/2024 10:40 AM EST Office Visit Family Practice [facility] [place] [address] [place] [address] Angie Perez MD [address] [facility] [place] [address] 09/02/2024 9:40 AM EST Home Visit Care Coordination and Integration [address] [place] [address] Julissa Christopher, Community Health Steamfitter Apprentice [address] [place] [address] Health Maintenance Due Date Last Done Comments [...] D LEVEL ONCE IN A LIFETIME-USE SMARTSET# [id number] Completed 07/30/2024, 05/31/2020, 11/25/2019, Additional history exists [...] Documents on File Type Date Recorded Patient Fountain Brush Assembler Fanny grullon POL 04/27/2024 8:38 AM OOH-DNR Advance Directives and Living Will 04/21/2024 10:30 AM POA and Living Will Healthcare Agents on File Name Relationship Healthcare Agent Relationship Communication Tank Haq Adult Child First Alternate Health Care Agent (per Health Care Power of Pipeman document) Jo-Ann Rose Adult Child First Alternate Health Care Agent (per Health Care Power of Pipeman document) [email or web address] Care Teams Photolithographic Stripper Relationship Specialty Start Date End Date Angie Perez MD [address] [place] [address] PCP - General Family Medicine 04/07/24 documented as of this encounter
--- OUTSIDE RECORDS SUMMARY | 2024-08-08 20:02 | External Medical Summary | Summary of Care ---
Author Name Unknown Organization [facility] Address [address] [place] [address] Phone [phone] Care Team Providers Care Night Clerk Name Role Phone Angie Perez MD Primary Care Provider [phone] Reason for Visit * Reason Onset Date Comments Follow Up 06/21/2024 Encounter Details Date Type Department Care Team (Late st Contact Info) Description 06/21/2024 12:15 PM EDT Scheduled Telephone [facility] [place], [facility] 132 [place] [address] [facility], Nurse [facility] [address] [place] [address] Allergies Active Allergy Reactions Criticality Noted Date Comments Bacitracin Itching 02/20/2018 Ezetimibe 09/19/2008 Shellfish Allergy 03/25/2023 Sulfa Antibiotics 12/24/2017 Tramadol Itching 12/24/2017 documented as of this encounter (statuses as of 06/21/2024) Medications Medication Sig Dispensed Refills Start Date [...] mouth in the morning. Active Saline Nasal [place] 0.65 % Nasal Solution (Isabella) Administer 1 [place] into nostril as needed for Congestion. 12/12/2023 [...] before bedtime. 180 Tablet 3 06/16/2024 Active documented as of this encounter (statuses as of 06/21/2024) Active Problems Problem Noted Date Diagnosed Date [...] as of this encounter (statuses as of 06/21/2024) Resolved Problems Problem Noted Date Diagnosed Date [...] as of this encounter (statuses as of 06/21/2024) Immunizations Name Administration Dates Next Due COVID-19 mRNA, LNP-s, No Pre serve, 2-Dose Series (Opower) 08/19/2021,12/26/2020,12/05/2020 COVID-19, MRNA-LNP, 23-24, P F, 30 MCG/0.3 mL, 12 YRS AND ABOVE, IM ([employer]-ComirnatMotorpaneer) 03/05/2024 Covid-19, Mrna, Lnp-s, Pf, B ivalent, [...] encounter Miscellaneous Notes * Telephone Encounter - Mariajose Ortiz RN - 06/21/2024 9:59 AM EDT Phone call to daughter Jo-Ann. Patient was directed to ED at [facility] last evening for increased confusion. No answer. Voicemail left providing [phone]# for call back. documented in this encounter Plan of Treatment Upcoming Encounters Date Type Department Care Team (Late st Contact Info) Description 06/23/2024 7:05 AM EDT [facility] [place] [facility] [address] [facility] [place] [address] Mvmg, [facility] [place] [facility] Draw [address] [facility] [place] [address] 06/24/2024 6:00 AM EDT Anticoagulation [facility], Milli Breen [address] [place] [address] [place] [address] Ccps, [address] [place] [address] 06/30/2024 7:00 AM EDT [facility] [place] [facility] [address] [place] [place] [address] Mvmg, Gml [place] Home Draw [address] [facility] [place] [address] 07/06/2024 4:00 PM EDT [facility], [facility] [address] [place] [address] Sandra Cullen RN [address] [place] [address] 07/14/2024 7:00 AM EDT [facility] [place] [facility] [address] [facility] [place] [address] Mvmg, Gml [place] [facility] Draw [address] [place], [place] [address] 07/28/2024 7:00 AM EDT [facility] [place] [facility] [address] [place], [place] [address] Mvmg, Gml [place] [facility] Draw [address] [place], [place] [address] 07/29/2024 11:30 AM EDT Home Visit [facility] [address] [place] [address] Sandra Cullen RN [address] [facility] [place] [address] 08/10/2024 10:40 AM EST Office Visit [facility] 200 [facility] [place] [address] Angie Perez MD 200 [facility] [place] [address] 08/11/2024 7:00 AM EST [facility] [place] [facility] [address] [place], [place] [address] Mvmg, [facility] [place] [facility] [address] [place], [place] [address] 08/18/2024 7:00 AM EST [facility] [place] [facility] [address] [place], [place] [address] Mvmg, Gml [place] [facility] Draw [address] [place], [place] [address] 08/25/2024 7:00 AM EST [facility] [place] [facility] [address] [place], [place] [address] Mvmg, Gml [place] [facility] Draw [address] [place], [place] [address] 09/01/2024 7:00 AM EST [facility] [place] [facility] [address] [place], [place] [address] Mvmg, Gml [place] [facility] Draw [address]20 [place] [address] 09/08/2024 7:00 AM EST [facility] [place] [facility] [address] [place] [address] Mvmg, Gml [place] [facility] Draw [address] [facility] [place] [address] 2024 7:00 AM EST [facility] [place] [facility] [address] [facility] [place] [address] Mvmg, Gml [place] [facility] Draw [address] [place] [address] 09/22/2024 7:00 AM EST [facility] [place] [facility] [address] [facility] [place] [address] Mvmg, Gml [place] [facility] Draw [address] [place] [address] 09/29/2024 7:00 AM EST [facility] [place] [facility] [address] [place] [address] Mvmg, Gml [place] [facility] Draw [address] [place] [address] 10/06/2024 7:00 AM EST [facility] [place] [facility] [address] [place] [address] Mvmg, Gml [place] Home Draw [address] [place] [address] Health Maintenance Due Date Last Done Comments [...] D LEVEL ONCE IN A LIFETIME-USE SMARTSET# [id number] Completed 05/31/2020, 11/25/2019, 08/06/2019, Additional history exists [...] on File Type Date Recorded Patient Clinical Nursing Coordinator Expl anation POLST 04/27/2024 8:38 AM OOH-DNR Advance Directives and Living Will 04/21/2024 10:30 AM POA and Living Will Healthcare Agents on File Name Relationship Healthcare Agent Relationship Communication Tank Haq Adult Child First Alternate Health Care Agent (per Health Care Power of Supervisor Drawing document) Jo-Ann Rose Adult Child First Alternate Health Care Agent (per Health Care Power of Supervisor Drawing document) [email or web address] Care Teams Night Clerk Relationship Specialty Start Date End Date Angie Perez MD [address] [place] [address] PCP - General Family Medicine 04/07/24 documented as of this encounter
--- OUTSIDE RECORDS SUMMARY | 2024-08-08 20:02 | External Medical Summary | Summary of Care ---
Author Name Unknown Organization [facility] Address [address] [place] [address] Phone [phone] Care Team Providers Care Securities Lending Trader Name Role Phone Angie Perez MD Primary Care Provider Encounter Details Date Type Department Care Team (Late st Contact Info) Description 06/22/2024 Population Health External Data Unspecified Department Allergies Active Allergy Reactions Criticality Noted Date Comments Bacitracin Itching 02/20/2018 Ezetimibe 09/19/2008 Shellfish Allergy 03/25/2023 Sulfa Antibiotics 12/24/2017 Tramadol Itching 12/24/2017 documented as of this encounter (statuses as of 06/22/2024) Medications Medication Sig Dispensed Refills Start Date [...] mouth in the morning. Active Saline Nasal [place] 0.65 % Nasal Solution ([place]) Administer 1 [place] into nostril as needed for Congestion. 12/12/2023 [...] as of this encounter (statuses as of 06/22/2024) Active Problems Problem Noted Date Diagnosed Date [...] as of this encounter (statuses as of 06/22/2024) Resolved Problems Problem Noted Date Diagnosed Date [...] as of this encounter (statuses as of 06/22/2024) Immunizations Name Administration Dates Next Due COVID-19 mRNA, LNP-s, No Pre serve, 2-Dose Series ([employer]) 08/19/2021,12/26/2020,12/05/2020 COVID-19, MRNA-LNP, 23-24, P F, 30 MCG/0.3 mL, 12 YRS AND ABOVE, IM ([employer] ([facility]) 03/05/2024 Covid-19, Mrna, Lnp-s, Pf, B [...] 7:05 AM EDT [facility] [place] [facility] [address] [address] Mvmg, Gml [place] Home Draw [address] [place] [address] 06/24/2024 6:00 AM EDT Anticoagulation [facility], Milli Breen [address] [place] [address] [place] [address] Ccps, [address] [place] [address] 06/30/2024 7:00 AM EDT [facility] [place] [facility] [address] [place] [address] Mvmg, Gml [place] [facility] Draw [address]20 [facility] [place], [place] [address] 07/06/2024 4:00 PM EDT [facility] Visit [facility] [place], [facility] 132 [facility] [place] [address] Sandra Cullen RN 132 [facility] [place] [address] 07/14/2024 7:00 AM EDT [facility] [place] [facility] [address] [place] [address] Mvmg, Gml [place] [facility] Draw [address] [facility] [place] [address] 07/28/2024 7:00 AM EDT [facility] [place] [facility] [address] [place] [address] Mvmg, Gml [place] Home Draw [address] [employer] [address] 07/29/2024 11:30 AM EDT [facility], [facility] [address] [place] [address] Sandra Cullen RN [address] [place] [address] 08/10/2024 10:40 AM EST Office Visit [facility] 200 [place] [address] Angie Perez MD 200 [place] [address] 08/11/2024 7:00 AM EST Laboratory [facility] [place] [facility] [address] [facility] [place], [place] [address] Mvmg, Gml [place] [facility] Draw [address] [facility] [place] [address] 08/18/2024 7:00 AM EST [facility] [place] [facility] [address] [facility] [place] [address] Mvmg, Gml [place] [facility] Draw [address] [facility] [place] [address] 08/25/2024 7:00 AM EST [facility] [place] [facility] [address] [facility] [place] [address] Mvmg, Gml [place] [facility] Draw [address] [employer] [address] 09/01/2024 7:00 AM EST [facility] [place] [facility] [address] [facility] [place] [address] Mvmg, Gml [place] [facility] Draw [address] [facility] [place] [address] 09/08/2024 7:00 AM EST [facility] [place] [facility] [address] [place] [address] Mvmg, Gml [place] [facility] Draw [address] [facility] [place] [address] 2024 7:00 AM EST [facility] [place] [facility] [address] [facility] [place] [address] Mvmg, Gml [place] [facility] Draw [address] [facility] [place] [address] 09/22/2024 7:00 AM EST [facility] [place] [facility] [address] [place] [address] Mvmg, Gml [place] [facility] Draw [address] [employer] [place] [address] 09/29/2024 7:00 AM EST [facility] [place] [facility] [address] [facility] [place], [place] [address] Mvmg, Gml [place] Home Draw [address] [facility] [place], [place] [address] 10/06/2024 7:00 AM EST [facility] [place] [facility]le[facility] [address] [facility] [place], [place] [address] Mvmg, Gml [place] Home Draw [address] [employer] [place] [address] Health Maintenance Due Date Last Done Comments [...] D LEVEL ONCE IN A LIFETIME-USE SMARTSET# [id number] Completed 05/31/2020, 11/25/2019, 08/06/2019, Additional history exists [...] Documents on File Type Date Recorded Patient Plastics Spreading Machine Operator Fanny grullon POLST 04/27/2024 8:38 AM OOH-DNR Advance Directives and Living Will 04/21/2024 10:30 AM POA and Living Will Healthcare Agents on File Name Relationship Healthcare Agent Relationship Communication Tank Haq Adult Child First Alternate Health Care Agent (per Health Care Power of Filling Layer Up document) Jo-Ann Milton Adult Child First Alternate Health Care Agent (per Health Care Power of Filling Layer Up document) [email or web address] Care Teams Securities Lending Trader Relationship Specialty Start Date End Date Angie Perez MD [address] [place] [address] PCP - General Family Medicine 04/07/24 documented as of this encounter
--- OUTSIDE RECORDS SUMMARY | 2024-08-08 20:02 | External Medical Summary | Summary of Care ---
Author Name Unknown Organization [facility] Address [address] [place] [address] Phone [phone] Care Team Providers Care Laborer Hoisting Name Role Phone Angie Perez MD Primary Care Provider Reason for Visit * Reason Comments Dosage Adjustment Via Phone (anticoag Cl inic) Encounter Details Date Type Department Care Team (Late st Contact Info) Description 06/26/2024 6:45 AM EDT Anticoagulation Centralized Clinical Pharm[facility] Services, Milli Breen [address] [place] [address] [place] [address] [place] [address] Anticoagulation management encounter* Allergies Active Allergy Reactions Criticality Noted Date Comments Bacitracin Itching 02/20/2018 Ezetimibe 09/19/2008 Shellfish Allergy 03/25/2023 Sulfa Antibiotics 12/24/2017 Tramadol Itching 12/24/2017 documented as of this encounter (statuses as of 06/26/2024) Medications Medication Sig Dispensed Refills Start Date [...] mouth in the morning. Active Saline Nasal [place] 0.65 % Nasal Solution ([place]) Administer 1 [place] into nostril as needed for Congestion. 12/12/2023 [...] as of this encounter (statuses as of 06/26/2024) Active Problems Problem Noted Date Diagnosed Date [...] as of this encounter (statuses as of 06/26/2024) Resolved Problems Problem Noted Date Diagnosed Date [...] as of this encounter (statuses as of 06/26/2024) Immunizations Name Administration Dates Next Due COVID-19 mRNA, LNP-s, No Pre serve, 2-Dose Series ([employer]) 08/19/2021,12/26/2020,12/05/2020 COVID-19, MRNA-LNP, 23-24, P F, 30 MCG/0.3 mL, 12 YRS AND ABOVE, IM ([employer]-ComirnatPorter + Sail) 03/05/2024 Covid-19, Mrna, Lnp-s, Pf, B ivalent, [...] Progress Notes * Julissa Jean RPh - 06/26/2024 10:51 AM EDT Pt admitted to [facility]. [facility] will follow up at discharge. Julissa Jean Rph, Pharm.D. Clinical Pharmacist [facility] Services ([facility]) [phone] 06/26/2024,10:53 AM documented in this encounter Plan of Treatment Upcoming Encounters Date Type Department Care Team (Late st Contact Info) Description 06/30/2024 7:00 AM EDT [facility] [place] [facility] [address] [employer] [facility] [place] [address] Mvmg, Gml [place] Home Draw [facility]0 [facility] [place] [address] 07/06/2024 4:00 PM EDT [facility] Visit [facility] 132 [facility] [place] [address] Sandra Cullen RN 132 [facility] [place] [address] 07/14/2024 7:00 AM EDT Laboratory [facility] [place] Phlebot[facility] [address] [employer] [place] [address] Mvmg, Gml [place] [facility] Draw 25[address] [facility] [place] [address] 07/28/2024 7:00 AM EDT Laboratory Lab [place] [facility]le[facility] [address] [employer] [facility] [place] [address] Mvmg, Gml [place] Home Draw 25[address] [facility] [place] [address] 07/29/2024 11:30 AM EDT [facility] Visit [facility] 132 [facility] [place] [address] Sandra Cullen, RN [address] [place] [address] 08/10/2024 10:40 AM EST Office Visit [facility] 200 [place] [address] Angie Perez MD 200 [facility] [place], [place] [address] 08/11/2024 7:00 AM EST Laboratory [facility] [place] [facility]bot[facility] [address] [facility] [place], [place] [address] Mvmg, Gml [place] Home Draw 25[address] [facility] [place], [place] [address] 08/18/2024 7:00 AM EST Laboratory Lab [place] [facility]lebot[facility] [address] [facility] [place], [place] [address] Mvmg, Gml Mobile Home Draw [address] [place] [employer] [place], [place] [address] 08/25/2024 7:00 AM EST Laboratory Lab [place] Phlebot[facility] [address] [facility] [place], [place] [address] Mvmg, Gml [place] Home Draw 25[address] [facility] [place], [place] [address] 09/01/2024 7:00 AM EST Laboratory Lab [place] Phlebot[facility] [address] [place] [employer] [place], [place] [address] Mvmg, Gml [place] Home Draw [address] [place] [employer] [place], [place] [address] 09/08/2024 7:00 AM EST Laboratory [facility] [place] [facility]lebot[facility] 25[address] [facility] [place], [place] [address] Mvmg, Gml Mobile Home Draw 25[address] [facility] [place], [place] [address] 2024 7:00 AM EST Laboratory Lab [place] [facility] [address] [facility] [place], [place] [address] Mvmg, Gml Mobile Home Draw [address] [facility] [place] [address] 09/22/2024 7:00 AM EST Laboratory [facility] [place] [facility]le[facility] [address] [facility] [place] [address] Mvmg, Gml Mobile Home Draw [address] [facility] [place] [address] 09/29/2024 7:00 AM EST Laboratory Lab [place] [facility]le[facility] [address] [facility] [place] [address] Mvmg, Gml Mobile Home Draw [address] [facility] [place] [address] 10/06/2024 7:00 AM EST Laboratory Lab [place] Phlebot[facility] [address] [facility] [place] [address] Mvmg, Gml Mobile Home Draw [address] [facility] [place] [address] Health Maintenance Due Date Last Done Comments [...] D LEVEL ONCE IN A LIFETIME-USE SMARTSET# [id number] Completed 05/31/2020, 11/25/2019, 08/06/2019, Additional history exists [...] Documents on File Type Date Recorded Patient On Air Personality Expl anation POLST 04/27/2024 8:38 AM OOH-DNR Advance Directives and Living Will 04/21/2024 10:30 AM POA and Living Will Healthcare Agents on File Name Relationship Healthcare Agent Relationship Communication Tank Haq Adult Child First Alternate Health Care Agent (per Health Care Power of Electric Organ Assembler And Checker document) Jo-Ann Rose Adult Child First Alternate Health Care Agent (per Health Care Power of Electric Organ Assembler And Checker document) [email or web address] Care Teams Laborer Hoisting Relationship Specialty Start Date End Date Angie Perez MD 200 [place] [address] PCP - General Family Medicine 04/07/24 documented as of this encounter
--- OUTSIDE RECORDS SUMMARY | 2024-08-08 20:02 | External Medical Summary | Summary of Care ---
Author Name Unknown Organization [facility] Address [address] [place] [address] Phone [phone] Care Team Providers Care Blending Machine Operator Name Role Phone Angie Perez MD Primary Care Provider [phone] Reason for Visit * Reason Comments Dosage Adjustment Via Phone (anticoag Cl inic) Encounter Details Date Type Department Care Team (Late st Contact Info) Description 06/29/2024 6:45 AM EDT Anticoagulation Centralized Clinical Pharmacy Services, Milli Breen [address] [place] [address] [place] [address] [place] [address] Anticoagulation management encounter* Allergies Active Allergy Reactions Criticality Noted Date Comments Bacitracin Itching 02/20/2018 Ezetimibe 09/19/2008 Shellfish Allergy 03/25/2023 Sulfa Antibiotics 12/24/2017 Tramadol Itching 12/24/2017 documented as of this encounter (statuses as of 06/29/2024) Medications Medication Sig Dispensed Refills Start Date [...] mouth in the morning. Active Saline Nasal [place] 0.65 % Nasal Solution (Nowthen) Administer 1 [place] into nostril as needed for Congestion. 12/12/2023 [...] as of this encounter (statuses as of 06/29/2024) Active Problems Problem Noted Date Diagnosed Date [...] as of this encounter (statuses as of 06/29/2024) Resolved Problems Problem Noted Date Diagnosed Date [...] as of this encounter (statuses as of 06/29/2024) Immunizations Name Administration Dates Next Due COVID-19 mRNA, LNP-s, No Pre serve, 2-Dose Series (VHS[employer]ared) 08/19/2021,12/26/2020,12/05/2020 COVID-19, MRNA-LNP, 23-24, P F, 30 MCG/0.3 mL, 12 YRS AND ABOVE, IM ([employer]-ComirnatMusicNow) 03/05/2024 Covid-19, Mrna, Lnp-s, Pf, B ivalent, [...] Progress Notes * Julissa Jean RPh - 06/29/2024 1:49 PM EDT Date/Time Type Contact Phone/Fax 06/29/2024 01:46 PM EDT by Julissa Jean RPh Outgoing Analy Haq (Self) Remove Spoke to Patient Spoke with daughter Jo-Ann today. Pt transitioned to Eliquis during [facility] admission. Confirmed copay is affordable for patient. [facility] will discharge at this time. Patient discharged from [facility] service at this time. Discharge Checklist 1. Delete the care team [x] 2. Uncheck list membership [x] 3. D/C Coag orders [x] 4. Resolve episode [x] 5. Discontinue warfarin on med list (if applicable) [x] 6. Cancel future appointments [x] Julissa Jean Rph, Pharm.D. Clinical Pharmacist [facility] Services ([facility]) [phone] 06/29/2024,1:52 PM documented in this encounter Plan of Treatment Upcoming Encounters Date Type Department Care Team (Late st Contact Info) Description 07/02/2024 3:40 PM EDT Office Visit Family Practice [facility] 200 [facility] [address] Angie Perez MD 200 [facility] [address] 07/06/2024 4:00 PM EDT Home Visit [facility] [place], [facility] [address] [place] [address] Sandra Cullen RN 132 [place] [address] 07/29/2024 11:30 AM EDT [facility] Visit [facility] [address] [place] [address] Sandra Cullen, RN [address] [place] [address] 08/10/2024 10:40 AM EST Office Visit Family Practice [facility] [place] 200 [facility] [place] [address] Angie Perez MD 200 [facility] [place] [address] Health Maintenance Due Date Last Done Comments [...] D LEVEL ONCE IN A LIFETIME-USE SMARTSET# [id number] Completed 05/31/2020, 11/25/2019, 08/06/2019, Additional history exists [...] Documents on File Type Date Recorded Patient Psychologist Industrial Organizational Fanny grullon POLST 04/27/2024 8:38 AM OOH-DNR Advance Directives and Living Will 04/21/2024 10:30 AM POA and Living Will Healthcare Agents on File Name Relationship Healthcare Agent Relationship Communication Tank Haq Adult Child First Alternate Health Care Agent (per Health Care Power of Grounds Maintenance Worker document) Jo-Ann Milton Adult Child First Alternate Health Care Agent (per Health Care Power of Grounds Maintenance Worker document) [email or web address] Care Teams Blending Machine Operator Relationship Specialty Start Date End Date Angie Perez MD 200 [place] [address] PCP - General Family Medicine 04/07/24 documented as of this encounter
--- OUTSIDE RECORDS SUMMARY | 2024-08-08 20:02 | External Medical Summary | Summary of Care ---
Author Name Unknown Organization [facility] Address [address] [place] [address] Phone [phone] Care Team Providers Care Operating Cost Clerk Name Role Phone Angie Perez MD Primary Care Provider [phone] Reason for Visit * Reason Onset Date Comments Encounter Created in Error 04/08/2024 Encounter Details Date Type Department Care Team (Late st Contact Info) Description 04/08/2024 Telephone Family Practice [facility] [address] [facility] [place] [place] [address] Angie Perez MD [address] [place] [address] Encounter Created in Error Allergies Active Allergy Reactions Criticality Noted Date Comments Bacitracin Itching 02/20/2018 Ezetimibe 09/19/2008 Shellfish Allergy 03/25/2023 Sulfa Antibiotics 12/24/2017 Tramadol Itching 12/24/2017 documented as of this encounter (statuses as of 07/08/2024) Medications Medication Sig Dispensed Refills Start Date End Date Status Acetaminophen 325 MG Oral Tablet (Tylenol) Take by mouth 2 Tablets every 4 hours as needed for Fever >38C(100.5F) or Pain, Breakthrough. 100 Tablet 3 03/14/2022 Active Aspirin 81 MG Oral Tablet Chewable (Aspirin 81) Take 1 Tablet by mouth in the morning. Active Saline Nasal [place] 0.65 % Nasal Solution (Esmeralda) Administer 1 [place] into nostril as needed for Congestion. 12/12/2023 [...] at lunchtime 180 Tablet 3 04/07/2024 Active documented as of this encounter (statuses as of 07/08/2024) Active Problems Problem Noted Date Diagnosed Date [...] as of this encounter (statuses as of 07/08/2024) Resolved Problems Problem Noted Date Diagnosed Date [...] as of this encounter (statuses as of 07/08/2024) Immunizations Name Administration Dates Next Due COVID-19 mRNA, LNP-s, No Pre serve, 2-Dose Series (Pharminex) 08/19/2021,12/26/2020,12/05/2020 COVID-19, MRNA-LNP, 23-24, P F, 30 MCG/0.3 mL, 12 YRS AND ABOVE, IM ([facility] 03/05/2024 Covid-19, Mrna, Lnp-s, Pf, B [...] encounter Miscellaneous Notes * Telephone Encounter - Sophie Donato OSA - 04/08/2024 4:43 PM EDT disregard documented in this encounter Plan of Treatment Upcoming Encounters Date Type Department Care Team (Late st Contact Info) Description 07/29/2024 11:30 AM EDT Home Visit [facility] [address] [facility] [place] [address] Sandra Cullen, RN [address] [place] [address] 08/10/2024 10:40 AM EST Office Visit Family Practice [facility] [place] [address] [facility] [place] [address] Angie Perez MD [address] 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 Expl anation POL 04/27/2024 8:38 AM OOH-DNR Advance Directives and Living Will 04/21/2024 10:30 AM POA and Living Will Healthcare Agents on File Name Relationship Healthcare Agent Relationship Communication Tank Haq Adult Child First Alternate Health Care Agent (per Health Care Power of Credit Operations Specialist document) Jo-Ann Rose Adult Child First Alternate Health Care Agent (per Health Care Power of Credit Operations Specialist document) [email or web address] Care Teams Operating Cost Clerk Relationship Specialty Start Date End Date Angie Perez MD [address] [place] [address] PCP - General Family Medicine 04/07/24 documented as of this encounter
--- OUTSIDE RECORDS SUMMARY | 2024-08-08 20:02 | External Medical Summary | Summary of Care ---
Author Name Unknown Organization [facility] Address [address] [place] [address] Phone [phone] Care Team Providers Care Grid Inspector Name Role Phone Angie Perez MD Primary Care Provider [phone] Reason for Visit * Reason Comments Appointment Dosage Adjustment Via Phone (anticoag Cl inic) Encounter Details Date Type Department Care Team (Late st Contact Info) Description 06/24/2024 6:00 AM EDT Anticoagulation [facility] Breen [address] [place] [address] [place] [address] [place] [address] Anticoagulation management encounter* Allergies Active Allergy Reactions Criticality Noted Date Comments Bacitracin Itching 02/20/2018 Ezetimibe 09/19/2008 Shellfish Allergy 03/25/2023 Sulfa Antibiotics 12/24/2017 Tramadol Itching 12/24/2017 documented as of this encounter (statuses as of 06/24/2024) Medications Medication Sig Dispensed Refills Start Date [...] mouth in the morning. Active Saline Nasal [place] 0.65 % Nasal Solution ([place]) Administer 1 [place] into nostril as needed for Congestion. 12/12/2023 [...] as of this encounter (statuses as of 06/24/2024) Active Problems Problem Noted Date Diagnosed Date [...] as of this encounter (statuses as of 06/24/2024) Resolved Problems Problem Noted Date Diagnosed Date [...] as of this encounter (statuses as of 06/24/2024) Immunizations Name Administration Dates Next Due COVID-19 mRNA, LNP-s, No Pre serve, 2-Dose Series (Guroo) 08/19/2021,12/26/2020,12/05/2020 COVID-19, MRNA-LNP, 23-24, P F, 30 MCG/0.3 mL, 12 YRS AND ABOVE, IM ([employer]) 03/05/2024 Covid-19, Mrna, Lnp-s, Pf, B ivalent, [...] Progress Notes * Julissa Jean RPh - 06/24/2024 10:04 AM EDT Noted, [facility] will follow up at discharge. Julissa Jean Rph, Pharm.D. Clinical Pharmacist [facility] ([facility]) [phone] 06/24/2024,10:04 AM * Alisa Novak PHARM Tech - 06/24/2024 8:29 AM EDT Spoke with Lucia at [facility] to see when pt was being drawn and she is currently admitted at [facility]. Please advise. Thank you, Alisa Novak Operating Room Rn [facility] 06/24/2024,8:31 AM documented in this encounter Plan of Treatment Upcoming Encounters Date Type Department Care Team (Late st Contact Info) Description 06/30/2024 7:00 AM EDT Laboratory Lab Mobile Phlebotomy [facility] [address] [place] [address] [facility], [facility] Mobile Home Draw [address] [place] [address] 07/06/2024 4:00 PM EDT Home Visit [facility] at [facility] [address] [place] [address] Sandra Cullen RN [address] [place] [address] 07/14/2024 7:00 AM EDT Laboratory Lab Mobile Phlebotomy [facility] [address] [place] [address] [facility], [facility] Mobile Home Draw [address] [place] [address] 07/28/2024 7:00 AM EDT Laboratory Lab Mobile Phlebotomy [facility] [address] [place], [place] [address] [facility], [facility] Draw [address] [place], [place] [address] 07/29/2024 11:30 AM EDT Home Visit [facility] [place], [facility] [address] [place] [address] Sandra Cullen, RN [address] [place] [address] 08/10/2024 10:40 AM EST Office Visit [facility] [address] [facility], [place] [address] Angie Perez MD 200 [facility] [place] [address] 08/11/2024 7:00 AM EST Laboratory Lab Mobile Phlebotomy [facility] [address] [place], [place] [address] [facility], [facility] [address] [place], [place] [address] 08/18/2024 7:00 AM EST Laboratory Lab Mobile Phlebotomy [facility] [address] [place], [place] [address] [facility], [facility] Draw [address] [place], [place] [address] 08/25/2024 7:00 AM EST Laboratory Lab Mobile Phlebotomy [facility] [address] [place] [address] [facility], [facility] [address] [place] [address] 09/01/2024 7:00 AM EST Laboratory Lab Mobile Phlebotomy [facility] [address] [place], [place] [address] [facility], [facility] [address] [place], [place] [address] 09/08/2024 7:00 AM EST Laboratory Lab Mobile Phlebotomy [facility] [address] [facility] [place] [address] [facility], [facility] Draw [address] [facility] [place] [address] 2024 7:00 AM EST Laboratory Lab Mobile Phlebotomy [facility] [address] [place] [address] [facility], [facility] [address] [facility] [place] [address] 09/22/2024 7:00 AM EST Laboratory Lab Mobile Phlebotomy [facility] [address] [facility] [place] [address] [facility], [facility] [address] [facility] [place] [address] 09/29/2024 7:00 AM EST Laboratory Lab Mobile Phlebotomy [facility] [address] [place] [address] [facility], [facility] Draw [address] [facility] [place] [address] 10/06/2024 7:00 AM EST Laboratory Lab Mobile Phlebotomy [facility] [address] [facility] [place] [address] [facility], [facility] Draw [address] [facility] [place] [address] Health Maintenance Due Date Last Done Comments [...] D LEVEL ONCE IN A LIFETIME-USE SMARTSET# [id number] Completed 05/31/2020, 11/25/2019, 08/06/2019, Additional history exists [...] Documents on File Type Date Recorded 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 Expl anation POLST 04/27/2024 8:38 AM OOH-DNR Advance Directives and Living Will 04/21/2024 10:30 AM POA and Living Will Healthcare Agents on File Name Relationship Healthcare Agent Relationship Communication Tank Haq Adult Child First Alternate Health Care Agent (per Health Care Power of Lens Edger document) Jo-Ann Rose Adult Child First Alternate Health Care Agent (per Health Care Power of Lens Edger document) [email or web address] Interventional Care Teams Grid Inspector Relationship Specialty Start Date End Date Angie Perez MD [address] [place] [address] PCP - General Family Medicine 04/07/24 documented as of this encounter
--- NOTE | 2024-08-08 20:06 | Emergency Department Note ---
Impression & Plan Acute UTI, Dementia, Weakness, History of infection due to ESBL Escherichia coli, Constipation, Uncontrolled hypertension ED Provider Note Provider: Luis Kahn MD DATE OF SERVICE: 08/08/2024 CHIEF COMPLAINT: More confused HISTORY OF PRESENT ILLNESS: Patient is a 83-year-old female history of hypertension, CVA, UTI, dementia, and DVT on Eliquis presenting here today via ambulance from her home. EMS report that the family states that since around noon today the patient is been a little bit more confused and shaky than normal. This is similar to when she had a UTI recently. No fevers or trauma reported. Patient denies chest pain pain at this time. Denies any difficulty breathing. Patient knows her birthday but is unable to tell me what year it is currently and thinks its September. She is pleasant. A bit anxious about being at the hospital. Denies nausea vomiting diarrhea or abdominal pain to me. Daughter denies fever but states she seems a bit weak and shaky and not herself since today. Daughter confirms no falls. PAST MEDICAL HISTORY: As noted above MEDICATIONS: Reviewed home medication list SOCIAL HISTORY: Lives at home PHYSICAL EXAM: GENERAL: alert and oriented in no acute distress on stretcher Head: normocephalic and atraumatic EYES: No injection, discharge or icterus. PERRL, EOMI. NECK: Trachea midline. Supple. ENT: Mucous membranes pink and moist. Pharynx without erythema or exudate. LUNGS: Airway patent. No retractions. Breath sounds clear with good air entry bilaterally. HEART: Regular tachycardic rate and rhythm. No chest wall tenderness ABDOMEN: Soft without flank tenderness. Some mild lower abdominal tenderness without guarding. SKIN: Acyanotic, warm, dry, with small sacral decub grade 1. EXTREMITIES: Without swelling, tenderness or deformity NEUROLOGICAL: No aphasia or slurred speech. 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 EK bpm sinus tachycardia. No PVC or PAC. No acute ST segment elevation with a QTc of 443. Normal axis. CONTINUOUS CARDIAC MONITORING: was ordered and showed a heart rate of 90s to 120s bpm in normal sinus rhythm to sinus tachycardia Patient's laboratory studies and imaging reviewed. Differential includes Infection, dehydration, metabolic abnormality, hypo/hyperglycemia, electrolyte disturbance, anemia, hypoxia, cardiac sources, intracerebral event, toxicologic, neurologic, as well as other pathologies. IMPRESSION/MEDICAL DECISION MAKING: Given recent hospitalization reviewed discharge record from June. Had UTI that time we will check a urine. Patient with uncontrolled hypertension upon arrival in the somewhat anxious. Seems to be a recurrent problem. Given her weakness may be little bit of increased confusion and her use of Eliquis will obtain a head CT to exclude intracranial bleed. No significant focal deficits that are new and lower suspicion for CVA. Afebrile here and not significantly hypoxic. Not hypoglycemic. Given history of SIADH basic blood work obtained including electrolytes. Daughter later arrives and states the patient has been more weak today and not quite herself. Also concerned that she could be impacted. Patient does report a little bit of lower abdominal tenderness. Evidently had impaction during last day and daughter is quite worried about this. I discussed with the daughter will complete abdominal CT and she is minimally tender in the lower abdomen. Blood work without significant leukocytosis or anemia. No severe electrolyte abnormalities or renal dysfunction. Troponin normal. UA grossly positive and given history of ESBL E. coli UTI will treat with a dose of ertapenem. Soap enema ordered for large stool burden in the rectum on abdominal CT. Some good effect with that use. In discussion with patient and daughter at bedside, given her weakness and age and comorbidities with a UTI they wish to be observed overnight and the hospitalist team was consulted. DIAGNOSIS: Acute UTI, weakness, dementia, constipation DISPOSITION: Hospitalist will evaluate Patient was agreeable with this plan. Past Med/Surg History Problem List (Updated 08/08/24 @ 23:27 by Guzman Tobar) Constipation (Acute) History of infection due to ESBL Escherichia coli (Acute) Weakness (Acute) Acute UTI (Acute) Hypertension, uncontrolled (Acute) Pressure ulcer of right buttock Pressure ulcer of left buttock Nephrolithiasis Abdominal pain, acute, left lower quadrant (Acute) UTI (urinary tract infection) Palliative care by specialist Weakness generalized Carotid stenosis, bilateral Stroke H/O Spencer's palsy (Acute) Dementia (Acute) Acute left-sided weakness (Acute) Left-sided weakness Abdominal pain Palliative care encounter Adult failure to thrive (Acute) Hospice care patient (Acute) Dementia (Acute) AMS (altered mental status) Colovesical fistula (Acute) Rectovaginal fistula (Acute) Proctitis (Acute) Chronic hyponatremia Rectal bleeding Closed intertrochanteric fracture of left hip (Acute) Anemia (Acute) Acute hyponatremia (Acute) Spencer's palsy Osteoporosis Medical History Intertrochanteric fracture of right hip S/p left hip fracture Fall DVT prophylaxis History of breast cancer Hyperparathyroidism Lumbar spinal stenosis Pre-diabetes HTN (hypertension) Closed right hip fracture Surgical History Status post hip hemiarthroplasty Right History of partial mastectomy hx of dcis Family History Mother Alzheimer disease Father Heart disease Social History Smoking Status: Never smoker Second Hand Exposure: No; Do You Dip or Chew Tobacco: No; Hx Alcohol Use: No Hx Substance Use: No Preferred Language: Maltese Communication Ability: Effective Communication Ability Comment: Daughter at bedside for history Visual Impairment: Limited Hearing Ability: Normal Stringer Machine Tender Required: No Beliefs That Will Affect Care: None marital status: Current Living Situation: Family Current Living Situation Comment: Living with family, daughter, son in law, grandson current occupational status: retired How many Children do You have: 2 Feels Safe at Home: Yes Diet Comment: Educated on increased protein, vitamin c, d and zinc Assistive Devices: Hospital Bed and Wheelchair Allergies Allergies Allergy/AdvReac Type Severity Reaction Status Date / Time shellfish derived Allergy Severe ON [facility] Verified 04/21/24 13:21 [facility] ezetimibe [From Zetia] Allergy Unknown ON [facility] Verified 11/19/23 21:59 [facility] Sulfa (Sulfonamide Allergy Unknown ON [facility] Verified 11/19/23 21:59 Antibiotics) [facility] sulfamethoxazole Allergy Unknown ON [facility] Verified 11/19/23 21:59 [From Bactrim] [facility] tramadol Allergy Unknown ON [facility] Verified 11/19/23 21:59 [facility] trimethoprim [From Bactrim] Allergy Unknown ON [facility] Verified 11/19/23 21:59 [facility] Allergy Unknown ON [facility] Uncoded 11/19/23 21:59 [facility] Home Meds Home Medications Medication Instructions Recorded Confirmed apixaban 2.5 mg tablet (Eliquis) 2.5 mg PO BID 09/15/24 11/02/24 aspirin 81 mg tablet,delayed 81 mg PO DAILY 06/21/24 08/08/24 release atorvastatin 40 mg tablet 40 mg PO DAILY 06/21/24 08/08/24 lisinopril 5 mg tablet 5 mg PO DAILY 06/21/24 08/08/24 loratadine 10 mg tablet 10 mg PO DAILY 06/21/24 08/08/24 mirtazapine 15 mg tablet 7.5 mg PO HS 06/21/24 08/08/24 mometasone 50 mcg/actuation nasal 2 spray intranasal DAILY 06/21/24 08/08/24 spray omeprazole 20 mg capsule,delayed 20 mg PO DAILY 06/21/24 08/08/24 release potassium chloride 10 mEq 20 meq PO DAILY 06/21/24 08/08/24 tablet,extended release(part/cryst) sertraline 25 mg tablet 25 mg PO DAILY 06/21/24 08/08/24 menthol 0.44 %-zinc oxide 20.6 % topical QID 08/08/24 topical ointment (Calmoseptine) polyethylene glycol 3350 17 gram 17 g PO BID 08/08/24 08/08/24 oral powder packet (Miralax) sodium chloride 0.65 % nasal spray spray intranasal PRN congestion 08/08/24 aerosol Previous Rx's Medication Instructions Recorded sennosides 8.6 mg-docusate sodium 2 tab PO QAM #60 tabs 06/28/24 50 mg tablet (Senokot-S) Results & Data (ED) Vital Signs Vital Signs - 24 hr 08/08/24 20:01 08/08/24 20:02 08/08/24 20:02 Temperature Temperature Source Pulse Rate 120 H Pulse Rate [Apical] 118 H Pulse Rate from SpO2 Sensor Respiratory Rate 20 Respiratory Effort / Characteristics Non-Labored Spontaneous Respiratory Depth Normal Respiratory Pattern Blood Pressure Blood Pressure [Right Arm] 193/120 H Blood Pressure Mean Blood Pressure Mean [Right Arm] 144 Pulse Oximetry 92 92 Oxygen Delivery Method Room Air Room Air Sepsis Recent Fever Within 48 Hours Sepsis New/Unexplained Change in Mental Status Sepsis Action Taken by Nursing 08/08/24 20:04 08/08/24 20:04 08/08/24 20:12 Temperature 36.7 C Temperature Source Oral Pulse Rate 119 H 118 H 114 H Pulse Rate [Apical] Pulse Rate from SpO2 Sensor Respiratory Rate 20 18 24 Respiratory Effort / Characteristics Non-Labored Spontaneous Respiratory Depth Normal Respiratory Pattern Regular Blood Pressure 208/110 H Blood Pressure [Right Arm] Blood Pressure Mean 142 Blood Pressure Mean [Right Arm] Pulse Oximetry 92 92 Oxygen Delivery Method Room Air Room Air Sepsis Recent Fever Within 48 Hours Yes Sepsis New/Unexplained Change in Mental Status No Sepsis Action Taken by Nursing No Action Required 08/08/24 20:27 08/08/24 20:30 08/08/24 20:30 Temperature Temperature Source Pulse Rate 104 H Pulse Rate [Apical] Pulse Rate from SpO2 Sensor 104 H Respiratory Rate 20 Respiratory Effort / Characteristics Respiratory Depth Respiratory Pattern Blood Pressure 150/90 H 150/90 H Blood Pressure [Right Arm] Blood Pressure Mean 114 114 Blood Pressure Mean [Right Arm] Pulse Oximetry 94 Oxygen Delivery Method Sepsis Recent Fever Within 48 Hours Sepsis New/Unexplained Change in Mental Status Sepsis Action Taken by Nursing 08/08/24 20:30 08/08/24 20:33 08/08/24 20:55 Temperature Temperature Source Pulse Rate 100 H 98 H Pulse Rate [Apical] Pulse Rate from SpO2 Sensor 100 H 98 H Respiratory Rate 14 17 Respiratory Effort / Characteristics Respiratory Depth Respiratory Pattern Blood Pressure 192/113 H Blood Pressure [Right Arm] Blood Pressure Mean 147 Blood Pressure Mean [Right Arm] Pulse Oximetry 94 94 Oxygen Delivery Method Sepsis Recent Fever Within 48 Hours Sepsis New/Unexplained Change in Mental Status Sepsis Action Taken by Nursing 08/08/24 21:00 08/08/24 21:03 08/08/24 21:30 Temperature Temperature Source Pulse Rate 103 H Pulse Rate [Apical] Pulse Rate from SpO2 Sensor 103 H Respiratory Rate 19 Respiratory Effort / Characteristics Respiratory Depth Respiratory Pattern Blood Pressure 169/102 H 141/87 H Blood Pressure [Right Arm] Blood Pressure Mean 136 108 Blood Pressure Mean [Right Arm] Pulse Oximetry 92 Oxygen Delivery Method Sepsis Recent Fever Within 48 Hours Sepsis New/Unexplained Change in Mental Status Sepsis Action Taken by Nursing 08/08/24 21:54 08/08/24 22:01 Temperature Temperature Source Pulse Rate 102 H Pulse Rate [Apical] Pulse Rate from SpO2 Sensor 102 H Respiratory Rate 21 Respiratory Effort / Characteristics Respiratory Depth Respiratory Pattern Blood Pressure 141/87 H Blood Pressure [Right Arm] Blood Pressure Mean Blood Pressure Mean [Right Arm] Pulse Oximetry 94 Oxygen Delivery Method Sepsis Recent Fever Within 48 Hours Sepsis New/Unexplained Change in Mental Status Sepsis Action Taken by Nursing Laboratory Data 08/08/24 20:24 08/08/24 20:24 Lab Results 08/08/24 08/08/24 08/08/24 Range/Units 19:59 20:14 20:24 WBC 8.99 (4.8-10.8) K/ul RBC 4.80 (4.20-5.40) M/uL Hgb 12.4 (12.0-16.0) g/dl Hct 39.4 (37.0-47.0) % MCV 82.1 (80.0-100.0) fL MCH 25.8 (25.0-34.0) pg MCHC 31.5 L (32.0-36.0) g/dL RDW Std Deviation 43.0 (36.4-46.3) fL RDW Coeff of Tyesha 14.3 (11.5-14.5) % Plt Count 300 (130-400) K/uL MPV 9.6 (9.4-12.4) fL Immature Gran % (Auto) 0.3 % Neut % (Auto) 67.8 % Lymph % (Auto) 23.4 % Bryan % (Auto) 6.5 % Eos % (Auto) 1.3 % Baso % (Auto) 0.7 % Neut # (Auto) 6.10 (1.40-6.50) K/uL Lymph # (Auto) 2.10 (1.20-3.40) K/uL Bryan # (Auto) 0.58 (0.11-0.59) K/uL Eos # (Auto) 0.12 (0.00-0.50) K/uL Baso # (Auto) 0.06 (0.00-0.20) K/uL Immature Gran # (Auto) 0.03 (0.01-0.20) K/uL Sodium 136 (136-145) mmol/L Potassium 4.0 (3.5-5.1) mmol/L Chloride 104 (98-107) mmol/L Carbon Dioxide 21 (21-32) mmol/L Anion Gap 11 (3-11) BUN 19 (6-23) mg/dl Creatinine 0.76 (0.6-1.2) mg/dl Est Cr Clr Drug Dosing 41.9 ml/min eGFR 76.74 BUN/Creatinine Ratio 25.0 H (10-20) Glucose 160 H (70-99(Fasting)) mg/dl POC Glucose 163 H (70-99) mg/dl Calcium 10.0 (8.6-10.3) mg/dl Magnesium 1.8 (1.7-2.4) mg/dl Total Bilirubin 0.5 (0.2-1.0) mg/dl AST 13 (13-39) U/L ALT 5 L (7-52) U/L Alkaline Phosphatase 115 H (34-104) U/L Troponin I High Sens 7.0 (0-14) pg/ml Total Protein 7.8 (6.0-8.3) gm/dl Albumin 4.0 (3.4-5.0) gm/dl Globulin 3.8 (2.5-4.0) gm/dl Albumin/Globulin Ratio 1.1 (0.9-2) TSH 1.826 (0.300-4.500) uIu/ml Urine Color Yellow Urine Appearance Cloudy A (Clear) Urine pH 7.5 (4.5-7.5) Ur Specific [place] 1.013 (1.000-1.030) Urine Protein 3+ H (Negative) Urine Glucose (UA) Negative (Negative) Urine Ketones Trace H (Negative) Urine Blood 3+ H (Negative) Urine Nitrite Positive A (Negative) Urine Bilirubin Negative (Negative) Urine Urobilinogen Negative (Negative) Ur Leukocyte Esterase 3+ H (Negative) Urine WBC (Auto) >50 H (0-5) /hpf Urine RBC (Auto) >20 H (0-2) /hpf U Hyaline Cast (Auto) 0-2 (0-2) /lpf U Epithel Cells (Auto) 3-5 H (0-2) /hpf Urine Bacteria (Auto) 3+ H (None Seen) Adenovirus (PCR) Not Detected (NotDetected) B. pertussis DNA (PCR) Not Detected (NotDetected) B.parapertussis DNA PCR Not Detected (NotDetected) C. pneumoniae DNA (PCR) Not Detected (NotDetected) Coronavirus OC43 (PCR) Not Detected (NotDetected) Coronavirus HKU1 (PCR) Not Detected (NotDetected) Coronavirus 229E (PCR) Not Detected (NotDetected) SARS-CoV-2 (PCR) Not Detected (NotDetected) Coronavirus NL63 (PCR) Not Detected (NotDetected) Human Metapneumovir PCR Not Detected (NotDetected) Influenza Type A (PCR) Not Detected (NotDetected) Influenza Type B (PCR) Not Detected (NotDetected) M. pneumoniae (PCR) Not Detected (NotDetected) Parainfluenza 1 (PCR) Not Detected (NotDetected) Parainfluenza 2 (PCR) Not Detected (NotDetected) Parainfluenza 3 (PCR) Not Detected (NotDetected) Parainfluenza 4 (PCR) Not Detected (NotDetected) RSV (PCR) Not Detected (NotDetected) Entero/Rhino (PCR) Not Detected (NotDetected) Administered Medications Sodium Chloride (Nss) 1,000 mls @ 50 mls/hr IV .Q20H ONE Stop: 08/09/24 17:40 Last Admin: 08/08/24 22:13 Dose: 50 mls/hr Documented By: JUN Discontinued Medications Ertapenem (Invanz 1000mg) 1,000 mg in 10 mls @ 2 mls/min IV NOW STA Stop: 08/08/24 20:57 Last Admin: 08/08/24 21:32 Dose: 2 mls/min Documented By: JUN Magnesium Sulfate/Dextrose (Magnesium Sulfate / D5w) 1 gm in 100 mls @ 50 mls/hr IV ONE ONE Stop: 08/08/24 23:31 Last Admin: 08/08/24 22:12 Dose: 50 mls/hr Documented By: JUN Lisinopril (Lisinopril 2.5 Mg Tab) 2.5 mg PO NOW STA Stop: 08/08/24 22:29 Last Admin: 08/08/24 22:42 Dose: 2.5 mg Documented By: JUN Losartan Potassium (Losartan Potassium 25 Mg Tab) 25 mg PO HS SELIN Stop: 09/07/24 22:19 Last Admin: 08/08/24 22:43 Dose: Not Given Documented By: JUN Metoprolol Tartrate (Metoprolol Tartrate 1 Mg/Ml Vial) 2.5 mg IV NOW STA Stop: 08/08/24 21:32 Last Admin: 08/08/24 22:01 Dose: Not Given Documented By: JUN Ondansetron HCl (Ondansetron Inj 2 Mg/Ml 2 Ml Vial) 4 mg IV NOW STA Stop: 08/08/24 21:48 Last Admin: 08/08/24 22:12 Dose: 4 mg Documented By: JUN Discharge Plan Visit Data Chief Complaint: Altered Mental Status Stated Complaint: ALTERED MENTAL STATUS SINCE NOON ED Provider: Luis Kahn Discharge Problem: Acute UTI, Dementia, Weakness, History of infection due to ESBL Escherichia coli, Constipation, Uncontrolled hypertension Patient Disposition: Admitted As Inpatient Discharge Instructions Interventions: ED Discharge Assessment Last Done: 08/08/24 22:52
[2024-08-08 20:40] LABS: Basophils # (auto) 0.06 K/uL (0.00-0.20); Basophils % (auto) 0.7 %; Eosinophils # (auto) 0.12 K/uL (0.00-0.50); Eosinophils % (auto) 1.3 %; Hematocrit (blood only) 39.4 % (37.0-47.0); Hemoglobin 12.4 g/dl (12.0-16.0); Immature Granulocytes # (auto) 0.03 K/uL (0.01-0.20); Immature Granulocytes % (auto) 0.3 %; Lymphocytes % (auto) 23.4 %; Mean Corpuscular Hemoglobin 25.8 pg (25.0-34.0); Mean Corpuscular Hgb Conc 31.5 g/dL (32.0-36.0); Mean Corpuscular Volume 82.1 fL (80.0-100.0); Mean Platelet Volume 9.6 fL (9.4-12.4); Monocytes # (auto) 0.58 K/uL (0.11-0.59); Monocytes % (auto) 6.5 %; Neutrophils % (auto) 67.8 %; Platelet Count 300 K/uL (130-400); RDW Coefficient of Variation 14.3 % (11.5-14.5); White Blood Count 8.99 K/ul (4.8-10.8)
[2024-08-08 20:43] LABS: Appearance Urine Cloudy (Clear); Bacteria Urine Automated 3+ (None Seen); Bilirubin Urine Negative (Negative); Blood Urine 3+ (Negative); Cast Urine Automated 0-2 /lpf (0-2); Color Urine Yellow; Glucose Urine UA Negative (Negative); Ketones Urine Trace (Negative); Leukocyte Esterase Urine 3+ (Negative); Nitrite Urine Positive (Negative); Protein Urine 3+ (Negative); RBC Urine Automated >20 /hpf (0-2); Specific Gravity Urine 1.013 (1.000-1.030); Urobilinogen Urine Negative (Negative); WBC Urine Automated >50 /hpf (0-5); pH Urine 7.5 (4.5-7.5)
[2024-08-08 21:09] LABS: Albumin Globulin Ratio 1.1 (0.9-2); Bilirubin,Total 0.5 mg/dl (0.2-1.0); Creatinine Clr Calc Pharmacy 41.9 ml/min; Globulin 3.8 gm/dl (2.5-4.0); Magnesium 1.8 mg/dl (1.7-2.4); Total Protein 7.8 gm/dl (6.0-8.3)
[2024-08-08 21:23] LABS: Adenovirus PCR Not Detected (NotDetected); Bordetella parapertussis PCR Not Detected (NotDetected); Bordetella pertussis PCR Not Detected (NotDetected); Chlamydia pneumoniae PCR Not Detected (NotDetected); Coronavirus 229E PCR Not Detected (NotDetected); Coronavirus CoV-2 (COVID19)PCR Not Detected (NotDetected); Coronavirus HKU1 PCR Not Detected (NotDetected); Coronavirus NL63 PCR Not Detected (NotDetected); Coronavirus OC43PCR Not Detected (NotDetected); Human Metapneumovirus PCR Not Detected (NotDetected); Influenza A PCR Not Detected (NotDetected); Influenza B PCR Not Detected (NotDetected); Mycoplasma pneumoniae PCR Not Detected (NotDetected); Parainfluenza Virus 1 PCR Not Detected (NotDetected); Parainfluenza Virus 2 PCR Not Detected (NotDetected); Parainfluenza Virus 3 PCR Not Detected (NotDetected); Parainfluenza Virus 4 PCR Not Detected (NotDetected); Respiratory Syncytial VirusPCR Not Detected (NotDetected); Rhinovirus/Enterovirus PCR Not Detected (NotDetected)
[2024-08-08 21:25] LABS: Thyroid Stimulating Hormone 1.826 uIu/ml (0.300-4.500)
[2024-08-08] MEDS: ERTAPENEM 1000MG 1,000 MG/10 ML SYR IV STA (21:32)
[2024-08-08] MEDS: METOPROLOL TARTRATE 1 MG/ML VIAL IV STA (22:01)
--- NOTE | 2024-08-08 22:09 | History & Physical Report ---
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 coli UTI IVF Follow CT abdomen pelvis Palliative care re-consultation to review goals of care given recurrent admissions for UTI as per discussion with daughter. Family had concerns that patient does not have good quality of life/feeling that patient would want comfort focused care as per last consult note. DVT prophylaxis Eliquis if no bleed on CT DNR as per patient's prior directives as per family. Patient daughter requests for updates from providers. Ms. Jo-Ann Rose, contact #[phone]. Text document was generated using [employer] voice recognition software. It may contain grammatical or spelling errors. Kindly contact undersigned for clarification of any documentation item in question. History of Present Illness Chief Complaint: UTI Primary Care Provider: Angie Perez MD History obtained from patient family, and records. Limited history from patient secondary to dementia. 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 Last confinement June 2024 for recurrent UTI in the setting of fecal impaction. ESBL E. coli on urine CS. Patient noted to be increasingly confused today, shaky and somewhat nervous. Leaking urine. Patient denies headache, chest pain, SOB, abdominal pain or dysuria symptoms. PCP prescribed outpatient Keflex course. Patient brought to ER by EMS for evaluation SBP 200s upon arrival at the ER. 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 Allergies Allergy/AdvReac Type Severity Reaction Status Date / Time shellfish derived Allergy Severe ON JUNIPER Verified 04/21/24 13:21 [facility] MED LIST ezetimibe [From Zetia] Allergy Unknown ON JUNIPER Verified 11/19/23 21:59 [facility] LIST Sulfa (Sulfonamide Allergy Unknown ON JUNIPER Verified 11/19/23 21:59 Antibiotics) [facility] LIST sulfamethoxazole Allergy Unknown ON JUNIPER Verified 11/19/23 21:59 [From Bactrim] [facility] LIST tramadol Allergy Unknown ON JUNIPER Verified 11/19/23 21:59 [facility] LIST trimethoprim [From Bactrim] Allergy Unknown ON JUNIPER Verified 11/19/23 21:59 [facility] LIST CHAPSTICK-DUEK FLAVOR Allergy Unknown ON JUNIPER Uncoded 11/19/23 21:59 [facility] LIST Home Medications Medication Instructions Recorded Confirmed Type apixaban 2.5 mg tablet (Eliquis) 2.5 mg PO BID 06/21/24 08/08/24 History aspirin 81 mg tablet,delayed 81 mg PO DAILY 06/21/24 08/08/24 History release atorvastatin 40 mg tablet 40 mg PO DAILY 06/21/24 08/08/24 History lisinopril 5 mg tablet 5 mg PO DAILY 06/21/24 08/08/24 History loratadine 10 mg tablet 10 mg PO DAILY 06/21/24 08/08/24 History mirtazapine 15 mg tablet 7.5 mg PO HS 06/21/24 08/08/24 History mometasone 50 mcg/actuation nasal 2 spray intranasal DAILY 06/21/24 08/08/24 History spray omeprazole 20 mg capsule,delayed 20 mg PO DAILY 06/21/24 08/08/24 History release potassium chloride 10 mEq 20 meq PO DAILY 06/21/24 08/08/24 History tablet,extended release(part/cryst) sertraline 25 mg tablet 25 mg PO DAILY 06/21/24 08/08/24 History sennosides 8.6 mg-docusate sodium 2 tab PO QAM #60 tabs 06/28/24 08/08/24 Rx 50 mg tablet (Senokot-S) menthol 0.44 %-zinc oxide 20.6 % topical QID 08/08/24 History topical ointment (Calmoseptine) polyethylene glycol 3350 17 gram 17 g PO BID 08/08/24 08/08/24 History oral powder packet (Miralax) sodium chloride 0.65 % nasal spray spray intranasal PRN congestion 08/08/24 History aerosol Past Med/Surg History Problem List (Updated 08/09/24 @ 01:47 EDT by Edward Jose MD) Encephalopathy Constipation (Acute) History of infection due to ESBL Escherichia coli (Acute) Weakness (Acute) Acute UTI (Acute) Hypertension, uncontrolled (Acute) Pressure ulcer of right buttock Pressure ulcer of left buttock Nephrolithiasis Abdominal pain, acute, left lower quadrant (Acute) UTI (urinary tract infection) Palliative care by specialist Weakness generalized Carotid stenosis, bilateral Stroke H/O Spencer's palsy (Acute) Dementia (Acute) Acute left-sided weakness (Acute) Left-sided weakness Abdominal pain Palliative care encounter Adult failure to thrive (Acute) Hospice care patient (Acute) Dementia (Acute) AMS (altered mental status) Colovesical fistula (Acute) Rectovaginal fistula (Acute) Proctitis (Acute) Chronic hyponatremia Rectal bleeding Closed intertrochanteric fracture of left hip (Acute) Anemia (Acute) Acute hyponatremia (Acute) Spencer's palsy Osteoporosis Medical History Intertrochanteric fracture of right hip S/p left hip fracture Fall DVT prophylaxis History of breast cancer Hyperparathyroidism Lumbar spinal stenosis Pre-diabetes HTN (hypertension) Closed right hip fracture Surgical History Status post hip hemiarthroplasty Right History of partial mastectomy hx of dcis Family History Mother Alzheimer disease Father Heart disease Social History Smoking Status: Never smoker Second Hand Exposure: No; Do You Dip or Chew Tobacco: No; Hx Alcohol Use: No Hx Substance Use: No Preferred Language: [place] Communication Ability: Effective Communication Ability Comment: Daughter at bedside for history Visual Impairment: Limited Hearing Ability: Normal Mechanical Striper Required: No Beliefs That Will Affect Care: None marital status: Current Living Situation: Family Current Living Situation Comment: Living with family, daughter, son in law, grandson current occupational status: retired How many Children do You have: 2 Feels Safe at Home: Yes Safety Concerns: Feels Safe At This Time Diet Comment: Educated on increased protein, vitamin c, d and zinc Assistive Devices: Glasses and Wheelchair Review of Systems Review of Systems: Could not be reliably obtained secondary to dementia Physical Exam Physical Exam: GENERAL: Demented, pleasant,, underweight, no respiratory distress SKIN: Pallor,, warm HEENT: Pale palpebral conjunctivae, chronic ptosis left with tearing, left facial droop, dry buccal mucosa NECK : Supple, no tenderness CHEST : CTA, no tenderness HEART : RRR, no obvious murmurs ABDOMEN: no distention, nontender EXTREMITIES : No LE swelling/tenderness, no other conspicuous deformities noted NEUROLOGIC : Demented, left facial asymmetry, mild dysarthria, MMTs RUE/RLE 4/5, LUE/LLE 3/5, gait and stance not assessed Results & Data Results & Data Vital Signs (Past 12 Hours) Vital Signs Temp Pulse Pulse Resp BP BP Pulse Ox 08/08/24 22:01 141/87 H 08/08/24 21:54 102 H 21 94 08/08/24 21:30 141/87 H 08/08/24 21:03 103 H 19 92 08/08/24 21:00 169/102 H 08/08/24 20:55 192/113 H 08/08/24 20:33 98 H 17 94 08/08/24 20:30 100 H 14 94 08/08/24 20:30 150/90 H 08/08/24 20:30 150/90 H 08/08/24 20:27 104 H 20 94 08/08/24 20:12 114 H 24 08/08/24 20:04 36.7 C 118 H 18 208/110 H 92 08/08/24 20:04 119 H 20 92 08/08/24 20:02 118 H 20 193/120 H 92 08/08/24 20:02 92 08/08/24 20:01 120 H O2 Del Method 08/08/24 22:01 08/08/24 21:54 08/08/24 21:30 08/08/24 21:03 08/08/24 21:00 08/08/24 20:55 08/08/24 20:33 08/08/24 20:30 08/08/24 20:30 08/08/24 20:30 08/08/24 20:27 08/08/24 20:12 08/08/24 20:04 Room Air 08/08/24 20:04 Room Air 08/08/24 20:02 Room Air 08/08/24 20:02 Room Air 08/08/24 20:01 Laboratory Results Laboratory Results WBC 8.99 K/ul (4.8-10.8) 08/08/24 20:24 RBC 4.80 M/uL (4.20-5.40) 08/08/24 20: Hgb 12.4 g/dl (12.0-16.0) 08/08/24 20: Hct 39.4 % (37.0-47.0) 08/08/24 20: MCV 82.1 fL (80.0-100.0) 08/08/24: MCH 25.8 pg (25.0-34.0) 08/08/24 20: MCHC 31.5 g/dL (32.0-36.0) L 08/08/24 20: RDW Std Deviation 43.0 fL (36.4-46.3) 08/08/24: RDW Coeff of Tyesha 14.3 % (11.5-14.5) 08/08/24 20: Plt Count 300 K/uL (130-400) 08/08/24: MPV 9.6 fL (9.4-12.4) 08/08/24: Immature Gran % (Auto) 0.3 % 08/08/24 20: Neut % (Auto) 67.8 % 08/08/24 20: Lymph % (Auto) 23.4 % 08/08/24 20: [place] % (Auto) 6.5 % 08/08/24 20: Eos % (Auto) 1.3 % 08/08/24: Baso % (Auto) 0.7 % 08/08/24: Neut # (Auto) 6.10 K/uL (1.40-6.50) 08/08/24 20: Lymph # (Auto) 2.10 K/uL (1.20-3.40) 08/08/24 20:24 [place] # (Auto) 0.58 K/uL (0.11-0.59) 08/08/24 20:24 Eos # (Auto) 0.12 K/uL (0.00-0.50) 08/08/24 20:24 Baso # (Auto) 0.06 K/uL (0.00-0.20) 08/08/24 20:24 Immature Gran # (Auto) 0.03 K/uL (0.01-0.20) 08/08/24 20:24 Sodium 136 mmol/L (136-145) 08/08/24 20:24 Potassium 4.0 mmol/L (3.5-5.1) 08/08/24 20:24 Chloride 104 mmol/L (98-107) 08/08/24 20:24 Carbon Dioxide 21 mmol/L (21-32) 08/08/24 20:24 Anion Gap 11 (3-11) 08/08/24 20:24 BUN 19 mg/dl (6-23) 08/08/24 20:24 Creatinine 0.76 mg/dl (0.6-1.2) 08/08/24 20:24 Est Cr Clr Drug Dosing 41.9 ml/min 08/08/24 20:24 eGFR 76.74 08/08/24 20:24 BUN/Creatinine Ratio 25.0 (10-20) H 08/08/24 20:24 Glucose 160 mg/dl (70-99(Fasting)) H 08/08/24 20:24 POC Glucose 163 mg/dl (70-99) H 08/08/24 19:59 Calcium 10.0 mg/dl (8.6-10.3) 08/08/24 20:24 Magnesium 1.8 mg/dl (1.7-2.4) 08/08/24 20:24 Total Bilirubin 0.5 mg/dl (0.2-1.0) 08/08/24 20:24 AST 13 U/L (13-39) 08/08/24 20:24 ALT 5 U/L (7-52) L 08/08/24 20:24 Alkaline Phosphatase 115 U/L (34-104) H 08/08/24 20:24 Troponin I High Sens 7.0 pg/ml (0-14) 08/08/24 20:24 Total Protein 7.8 gm/dl (6.0-8.3) 08/08/24 20:24 Albumin 4.0 gm/dl (3.4-5.0) 08/08/24 20:24 Globulin 3.8 gm/dl (2.5-4.0) 08/08/24 20:24 Albumin/Globulin Ratio 1.1 (0.9-2) 08/08/24 20:24 TSH 1.826 uIu/ml (0.300-4.500) 08/08/24 20:24 Urine Color Yellow 08/08/24 20:14 Urine Appearance Cloudy (Clear) A 08/08/24 20:14 Urine pH 7.5 (4.5-7.5) 08/08/24 20:14 Ur Specific [place] 1.013 (1.000-1.030) 08/08/24 20:14 Urine Protein 3+ (Negative) H 08/08/24 20:14 Urine Glucose (UA) Negative (Negative) 08/08/24 20:14 Urine Ketones Trace (Negative) H 08/08/24 20:14 Urine Blood 3+ (Negative) H 08/08/24 20:14 Urine Nitrite Positive (Negative) A 08/08/24 20:14 Urine Bilirubin Negative (Negative) 08/08/24 20:14 Urine Urobilinogen Negative (Negative) 08/08/24 20:14 Ur Leukocyte Esterase 3+ (Negative) H 08/08/24 20:14 Urine WBC (Auto) >50 /hpf (0-5) H 08/08/24 20:14 Urine RBC (Auto) >20 /hpf (0-2) H 08/08/24 20:14 U Hyaline Cast (Auto) 0-2 /lpf (0-2) 08/08/24 20:14 U Epithel Cells (Auto) 3-5 /hpf (0-2) H 08/08/24 20:14 Urine Bacteria (Auto) 3+ (None Seen) H 08/08/24 20:14 Adenovirus (PCR) Not Detected (NotDetected) 08/08/24 20:14 B. pertussis DNA (PCR) Not Detected (NotDetected) 08/08/24 20:14 B.parapertussis DNA PCR Not Detected (NotDetected) 08/08/24 20:14 C. pneumoniae DNA (PCR) Not Detected (NotDetected) 08/08/24 20:14 Coronavirus OC43 (PCR) Not Detected (NotDetected) 08/08/24 20:14 Coronavirus HKU1 (PCR) Not Detected (NotDetected) 08/08/24 20:14 Coronavirus 229E (PCR) Not Detected (NotDetected) 08/08/24 20:14 SARS-CoV-2 (PCR) Not Detected (NotDetected) 08/08/24 20:14 Coronavirus NL63 (PCR) Not Detected (NotDetected) 08/08/24 20:14 Human Metapneumovir PCR Not Detected (NotDetected) 08/08/24 20:14 Influenza Type A (PCR) Not Detected (NotDetected) 08/08/24 20:14 Influenza Type B (PCR) Not Detected (NotDetected) 08/08/24 20:14 M. pneumoniae (PCR) Not Detected (NotDetected) 08/08/24 20:14 Parainfluenza 1 (PCR) Not Detected (NotDetected) 08/08/24 20:14 Parainfluenza 2 (PCR) Not Detected (NotDetected) 08/08/24 20:14 Parainfluenza 3 (PCR) Not Detected (NotDetected) 08/08/24 20:14 Parainfluenza 4 (PCR) Not Detected (NotDetected) 08/08/24 20:14 RSV (PCR) Not Detected (NotDetected) 08/08/24 20:14 Entero/Rhino (PCR) Not Detected (NotDetected) 08/08/24 20:14 CT head: No evidence of acute intracranial pathology. Diagnostic Findings EKG as per my interpretation : Rate 115, sinus tachycardia, normal axis, nonspecific abnormalities
[2024-08-08] MEDS: MAGNESIUM SULFATE / D5W 1 GM/100 ML BAG IV ONE (22:12)
[2024-08-08] MEDS: ONDANSETRON INJ 2 MG/ML 2 ML VIAL IV STA (22:12)
[2024-08-08] MEDS: SODIUM CHLORIDE 0.9% 1,000 ML IV ONE (22:13)
[2024-08-08] MEDS ORDERED: PROMETHAZINE 6.25 MG/50.25 ML BAG IV PRN (22:13)
[2024-08-08] MEDS: lisinopril 2.5 MG TAB PO STA (22:42)
[2024-08-08] MEDS: LOSARTAN POTASSIUM 25 MG TAB PO SCH (22:43)
--- NOTE | 2024-08-09 00:53 | CT Scan Report ---
Exam(s): CT HEAD Without Contrast EXAM: CT Head Without Intravenous Contrast CLINICAL HISTORY: Reason for exam: weak, ams, hx dementia. TECHNIQUE: Axial computed tomography images of the head/brain without intravenous contrast. CTDI is 37.39 mGy and DLP is 547.75 mGy-cm. Automated exposure control was utilized for the study. A dose lowering technique was utilized adhering to the principles of ALARA. COMPARISON: Prior head CT from June 21, 2024. FINDINGS: Brain: Remote ischemic injury of the right capsule. No hemorrhage. Advanced nonspecific white matter changes. No edema. Ventricles: Moderate ventriculomegaly. Bones/joints: Unremarkable. No acute fracture. Soft tissues: Unremarkable. Sinuses: Unremarkable as visualized. No acute sinusitis. Mastoid air cells: Unremarkable as visualized. No mastoid effusion. IMPRESSION: No evidence of acute intracranial pathology. Electronically signed by: Jasmin Linn MD 08/09/24 00:52 AM
--- NOTE | 2024-08-09 02:12 | XRay Report ---
Exam(s): XR CXR 1 VIEW EXAM: XR Chest, 1 View CLINICAL HISTORY: Reason for exam: weakness, confusion. TECHNIQUE: Frontal view of the chest. COMPARISON: X-ray chest: 11/24/2023 FINDINGS: Lungs: Persistently elevated right hemidiaphragm with reduced right lung volume. Prominent perihilar bronchovascular/interstitial opacities. No consolidation. A hiatal hernia with a retrocardiac density. Pleural space: Blunting of left costophrenic sulcus. No pneumothorax. Heart: Stable cardiomediastinal silhouette. Calcified atherosclerosis of the aortic knob. Bones/joints: Osteopenia. No obvious acute osseous findings.. IMPRESSION: Possibly mild pulmonary vascular congestion. Recommend clinical correlation. Persistently elevated right hemidiaphragm. A moderately large size hiatal hernia . Electronically signed by: Jose Rawls MD, VIJAY 08/09/24 02:12 AM
--- NOTE | 2024-08-09 03:41 | CT Scan Report ---
Exam(s): CT ABDOMEN + PELVIS Without Contrast EXAM: CT Abdomen and Pelvis Without Intravenous Contrast CLINICAL HISTORY: Reason for exam: lower abd pain,constipation. TECHNIQUE: Axial computed tomography images of the abdomen and pelvis without intravenous contrast. CTDI is 16.14 mGy and DLP is 755.69 mGy-cm. Automated exposure control was utilized for the study. A dose lowering technique was utilized adhering to the principles of ALARA. COMPARISON: CT abdomen/pelvis: 06/21/2024 FINDINGS: Image diagnostic quality is hampered by motion artifact. Lung bases: No mass. No consolidation. Again noted a markedly elevated right hemidiaphragm. Right lower lobe medially compressive atelectatic changes. ABDOMEN: Analysis of abdominal/pelvic viscera and vascular structures is limited in absence of IV contrast. Liver: Superiorly extended into the chest cavity. Unremarkable. Gallbladder and bile ducts: Gallbladder is surgically absent. Postcholecystectomy mild ductal ectasia Pancreas: Unremarkable. No ductal dilation. Spleen: Unremarkable. No splenomegaly. Adrenals: Unremarkable. No mass. Kidneys and ureters: Again noted multiple calculi in the right renal pelvis. No hydronephrosis. A left renal 1.5 cm lucency/cyst posteriorly. A 1.4 cm parapelvic cyst in the left kidney. A punctate calculus in the mid left kidney.. No hydronephrosis. Stomach and bowel: A moderately large size hiatal hernia with organoaxial rotation. Normal caliber small bowel. There is colonic diverticulosis with ascending colon wall thickening and right pericolonic mild fat stranding, could be reactive although cannot exclude mild diverticulitis/colitis versus incomplete distention (series 300 image 48). There is diffuse incomplete/nondistention of the transverse and descending colon. Again noted a very large amount of retained fecal debris mixed with gas in a distended rectosigmoid, somewhat similar to the prior comparison. PELVIS: Appendix: No findings to suggest acute appendicitis. Bladder: An abnormal appearing decompressed urinary bladder is seen with increased wall thickness and stranding of perivesical fat, likely due to bacterial cystitis. Reproductive: Anteverted atrophic uterus with intraluminal gas collection, similar to prior. ABDOMEN and PELVIS: Intraperitoneal space: No free air. No significant fluid collection. Bones/joints: Osteopenia. T12 vertebra plana with complete loss of body height, seen similar to prior (series 301 image 47. Grade 1 L4 spondylolisthesis. Multilevel moderately advanced degenerative thoracolumbar spondylosis. Facet osteoarthropathy. Total right hip replacement. Intramedullary esmer/pin fixation of the proximal left femur Soft tissues: Unremarkable. Vasculature: Extensive calcified atherosclerosis of the tortuous/elongated aortoiliac vasculature.. No abdominal aortic aneurysm. Lymph nodes: No obvious lymphadenopathy by CT size criteria. . IMPRESSION: . A moderately large size hiatal hernia with an organoaxial rotation. Colonic diverticulosis. Ascending colonic mild wall thickening and pericolonic mild fat stranding, this could be reactive although cannot exclude mild diverticulitis/colitis versus incomplete bowel distention. Recommend clinical correlation. Again noted a very large amount of retained fecal debris mixed with gas in a distended rectosigmoid similar to prior comparison. An abnormal appearing decompressed urinary bladder is seen with increased wall thickness and perivesical fat stranding likely due to bacterial cystitis. Recommend clinical correlation. Multiple right renal calculi without evidence of hydronephrosis. Additional findings as described above. Electronically signed by: Jose Rawls MD, DABR 08/09/24 03:40 AM
[2024-08-09 06:20] LABS: Basophils # (auto) 0.04 K/uL (0.00-0.20); Basophils % (auto) 0.5 %; Eosinophils # (auto) 0.04 K/uL (0.00-0.50); Eosinophils % (auto) 0.5 %; Hemoglobin 10.3 g/dl (12.0-16.0); Immature Granulocytes # (auto) 0.02 K/uL (0.01-0.20); Immature Granulocytes % (auto) 0.2 %; Lymphocytes # (auto) 2.15 K/uL (1.20-3.40); Lymphocytes % (auto) 26.2 %; Mean Corpuscular Hemoglobin 25.8 pg (25.0-34.0); Mean Corpuscular Hgb Conc 31.2 g/dL (32.0-36.0); Mean Corpuscular Volume 82.5 fL (80.0-100.0); Mean Platelet Volume 10.1 fL (9.4-12.4); Monocytes # (auto) 0.67 K/uL (0.11-0.59); Monocytes % (auto) 8.2 %; Neutrophils % (auto) 64.4 %; Platelet Count 253 K/uL (130-400); RDW Coefficient of Variation 14.3 % (11.5-14.5); RDW Standard Deviation 43.1 fL (36.4-46.3); White Blood Count 8.22 K/ul (4.8-10.8)
[2024-08-09 06:40] LABS: BUN Creatinine Ratio 24.4 (10-20); Calcium 9.5 mg/dl (8.6-10.3); Creatinine Clr Calc Pharmacy 39.8 ml/min; Potassium 4.3 mmol/L (3.5-5.1)
[2024-08-09] MEDS ORDERED: bisacodyL 10 MG SUPP PR PRN (07:33)
[2024-08-09] MEDS: ASPIRIN 81 MG ECTAB PO SCH (07:58)
[2024-08-09] MEDS: lisinopril 10 MG TAB PO SCH (07:58)
[2024-08-09] MEDS: APIXABAN 2.5 MG TAB PO SCH (07:58)
[2024-08-09] MEDS: SERTRALINE HCL 50 MG TABLET PO SCH (07:59)
[2024-08-09] MEDS: LORATADINE 10 MG TAB PO SCH (07:59)
[2024-08-09] MEDS: ATORVASTATIN 40 MG TAB PO SCH (07:59)
[2024-08-09] MEDS: PANTOprazole 40 MG TAB PO SCH (07:59)
[2024-08-09] MEDS: FLUTICASONE PROPIONATE NA SPR 16 GM BTL SCH (08:00)
[2024-08-09] MEDS: DOCUSATE SODIUM/SENNA 50/8.6MG TAB PO SCH (08:02)
[2024-08-09] MEDS ORDERED: lisinopril 5 MG TAB PO SCH (09:00)
[2024-08-09] MEDS ORDERED: DOCUSATE SODIUM/SENNA 50/8.6MG TAB PO SCH (09:00)
--- NOTE | 2024-08-09 11:56 | Hospitalist Progress Note ---
Date of Service August 09, 2024 Assessment & Plan (1) Encephalopathy: Plan: Acute metabolic encephalopathy: Multifactorial: Delirium, UTI in setting of dementia Complicated UTI H/O ESBL E. 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 -- Urine culture: Pulmonary growing E. 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 coli Review of Systems Review of Systems: All systems reviewed & are unremarkable except as noted in Subjective Physical Exam Physical Exam: Physical Exam: Vitals signs as noted above General Appearance: Thin, frail, elderly, no apparent distress Head: normocephalic, Atraumatic Eyes: normal inspection, EOMI Neck: supple, Trachea midline Respiratory/Chest: Normal breath sounds, CTA, No accessory muscle use Cardiovascular: S1, S2, No murmur Abdomen/GI:Soft, Non tender, Bowel sounds present Extremities/Musculoskeletal:normal inspection, no edema Neurologic/Psych: AAOX2, left facial asymmetry, mild left-sided weakness, dementia Skin: normal color, warm Results & Data Results & Data Vital Signs (Past 12 Hours) Vital Signs Temp Pulse Pulse Resp BP Pulse Ox O2 Del Method 08/09/24 11:44 36.9 C 83 16 114/68 95 Room Air 08/09/24 10:02 Room Air 08/09/24 08:06 36.6 C 69 16 130/74 95 Room Air 08/09/24 07:19 70 08/09/24 04:01 36.6 C 75 18 144/82 H 96 Room Air 08/09/24 03:27 Room Air 08/09/24 02:08 95 H Laboratory Results Short CBC 08/08/24 08/09/24 Range/Units 20:24 06:04 WBC 8.99 8.22 (4.8-10.8) K/ul Hgb 12.4 10.3 L (12.0-16.0) g/dl Hct 39.4 33.0 L (37.0-47.0) % Plt Count 300 253 (130-400) K/uL BMP 08/08/24 08/09/24 20:24 06:04 Sodium 136 136 Potassium 4.0 4.3 Chloride 104 105 Carbon Dioxide 21 26 BUN 19 19 Creatinine 0.76 0.78 Glucose 160 H 96 Calcium 10.0 9.5 Liver Function 08/08/24 Range/Units 20:24 Total Bilirubin 0.5 (0.2-1.0) mg/dl AST 13 (13-39) U/L ALT 5 L (7-52) U/L Alkaline Phosphatase 115 H (34-104) U/L Albumin 4.0 (3.4-5.0) gm/dl Urine 08/08/24 Range/Units 20:14 Urine Color Yellow Urine Appearance Cloudy A (Clear) Urine pH 7.5 (4.5-7.5) Ur Specific [place] 1.013 (1.000-1.030) Urine Protein 3+ H (Negative) Urine Glucose (UA) Negative (Negative)
--- NOTE | 2024-08-09 17:31 | Electrocardiogram Report ---
Test Reason : Blood Pressure : */* mmHG Vent. Rate : 114 BPM Atrial Rate : 114 BPM P-R Int : 158 ms QRS Dur : 70 ms QT Int : 322 ms P-R-T Axes : 54 -1 14 degrees QTcB Int : 443 ms Sinus tachycardia Nonspecific ST abnormality Abnormal ECG When compared with ECG of 21-Jun-2024 01:13, Nonspecific T wave abnormality no longer evident in Anterior leads Confirmed by Mahsa Leung (Corinna) on 08/09/2024 5:31:33 PM Referred By: REFERRED SELF Confirmed By: Mahsa Leung
[2024-08-09] MEDS: MIRTAZAPINE TAB 15 MG TAB PO SCH (20:11)
[2024-08-09] MEDS: ERTAPENEM 1000MG 1,000 MG/10 ML SYR IV SCH (20:13)
[2024-08-09] MEDS: ACETAMINOPHEN 325 MG TAB PO PRN (20:20)
[2024-08-10 05:57] LABS: Hematocrit (blood only) 31.7 % (37.0-47.0); Mean Corpuscular Hgb Conc 31.5 g/dL (32.0-36.0); Mean Corpuscular Volume 82.6 fL (80.0-100.0); Platelet Count 238 K/uL (130-400); RDW Coefficient of Variation 14.6 % (11.5-14.5); RDW Standard Deviation 44.3 fL (36.4-46.3); Red Blood Count 3.84 M/uL (4.20-5.40); White Blood Count 6.13 K/ul (4.8-10.8)
[2024-08-10 06:21] LABS: BUN Creatinine Ratio 21.6 (10-20); Calcium 9.5 mg/dl (8.6-10.3); Creatinine Clr Calc Pharmacy 41.5 ml/min; Magnesium 2.1 mg/dl (1.7-2.4); Potassium 4.1 mmol/L (3.5-5.1)
[2024-08-10] MEDS: POLYETHYLENE (MIRALAX) 17 GM PACK PO PRN (07:40)
--- NOTE | 2024-08-10 15:26 | Hospitalist Progress Note ---
Date of Service August 10, 2024 Assessment & Plan (1) Encephalopathy: Plan: Acute metabolic encephalopathy: Multifactorial: Delirium, UTI in setting of dementia Complicated UTI H/O ESBL E. 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 -- Urine culture: ESBL E. 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 coli, Klebsiella Denies any chest pain, dyspnea, nausea, vomiting, abdominal pain, dysuria Review of Systems Review of Systems: All systems reviewed & are unremarkable except as noted in Subjective Physical Exam Physical Exam: Physical Exam: Vitals signs as noted above General Appearance: Thin, frail, elderly, no apparent distress Head: normocephalic, Atraumatic Eyes: normal inspection, EOMI Neck: supple, Trachea midline Respiratory/Chest: Normal breath sounds, CTA, No accessory muscle use Cardiovascular: S1, S2, No murmur Abdomen/GI:Soft, Non tender, Bowel sounds present Extremities/Musculoskeletal:normal inspection, no edema Neurologic/Psych: AAOX2, left facial asymmetry, mild left-sided weakness, dementia Skin: normal color, warm Results & Data Results & Data Vital Signs (Past 12 Hours) Vital Signs Temp Pulse Pulse Pulse Resp BP BP 08/10/24 14:00 89 08/10/24 11:41 36.8 C 80 17 122/79 08/10/24 08:47 08/10/24 07:46 36.7 C 71 17 153/81 H 08/10/24 07:00 60 Pulse Ox O2 Del Method 08/10/24 14:00 08/10/24 11:41 96 Room Air 08/10/24 08:47 Room Air 08/10/24 07:46 96 Room Air 08/10/24 07:00 Laboratory Results Short CBC 08/10/24 Range/Units 05:19 WBC 6.13 (4.8-10.8) K/ul Hgb 10.0 L (12.0-16.0) g/dl Hct 31.7 L (37.0-47.0) % Plt Count 238 (130-400) K/uL BMP 08/10/24 05:19 Sodium 139 Potassium 4.1 Chloride 108 H Carbon Dioxide 28 BUN 16 Creatinine 0.74 Glucose 88 Calcium 9.5
[2024-08-11] MEDS: lisinopril 20 MG TAB PO SCH (09:30)
--- NOTE | 2024-08-11 14:52 | Hospitalist Progress Note ---
Date of Service August 11, 2024 Assessment & Plan (1) Encephalopathy: Plan: Acute metabolic encephalopathy: Multifactorial: Delirium, UTI in setting of dementia Complicated UTI H/O ESBL E. 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 -- Urine culture: ESBL E. 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--continue aspirin, Lipitor Breast cancer S/P surgery SIADH--monitor sodium levels Chronic anemia 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 Prediabetes Given poor quality of life, recurrent admissions, palliative care consulted to address goals of care DVT Px: Eliquis CODE STATUS DNI/DNR Admission and Anticipated Discharge Date Admission Date: August 08, 2024 Subjective Patient is seen and examined at bedside Reports no headache today Doing well No specific complaints Denies any chest pain, dyspnea, nausea, vomiting, abdominal pain, dysuria Review of Systems Review of Systems: All systems reviewed & are unremarkable except as noted in Subjective Physical Exam Physical Exam: Physical Exam: Vitals signs as noted above General Appearance: Thin, frail, elderly, no apparent distress Head: normocephalic, Atraumatic Eyes: normal inspection, EOMI Neck: supple, Trachea midline Respiratory/Chest: Normal breath sounds, CTA, No accessory muscle use Cardiovascular: S1, S2, No murmur Abdomen/GI:Soft, Non tender, Bowel sounds present Extremities/Musculoskeletal:normal inspection, no edema Neurologic/Psych: AAOX2, left facial asymmetry, mild left-sided weakness, dementia Skin: normal color, warm Results & Data Results & Data Vital Signs (Past 12 Hours) Vital Signs Temp Pulse Pulse Resp BP BP Pulse Ox 08/11/24 11:29 36.6 C 78 16 123/79 94 08/11/24 08:25 71 08/11/24 08:00 36.5 C 69 16 164/95 H 96 08/11/24 03:30 36.4 C L 62 14 156/88 H 95 O2 Del Method 08/11/24 11:29 Room Air 08/11/24 08:25 08/11/24 08:00 Room Air 08/11/24 03:30 Room Air
[2024-08-12 08:14] LABS: Hemoglobin 10.1 g/dl (12.0-16.0); Mean Corpuscular Hemoglobin 26.2 pg (25.0-34.0); Mean Corpuscular Hgb Conc 31.6 g/dL (32.0-36.0); Mean Corpuscular Volume 82.9 fL (80.0-100.0); Mean Platelet Volume 9.9 fL (9.4-12.4); Platelet Count 233 K/uL (130-400); RDW Coefficient of Variation 14.7 % (11.5-14.5); RDW Standard Deviation 44.5 fL (36.4-46.3); Red Blood Count 3.86 M/uL (4.20-5.40); White Blood Count 6.73 K/ul (4.8-10.8)
[2024-08-12 08:37] LABS: BUN Creatinine Ratio 22.6 (10-20); Calcium 9.2 mg/dl (8.6-10.3); Potassium 4.3 mmol/L (3.5-5.1)
--- NOTE | 2024-08-12 16:15 | Hospitalist Progress Note ---
Date of Service August 12, 2024 Assessment & Plan (1) Encephalopathy: Plan: Acute metabolic encephalopathy: Multifactorial: Delirium, UTI in setting of dementia Complicated UTI H/O ESBL E. 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 -- Urine culture: ESBL E. 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--continue aspirin, Lipitor Breast cancer S/P surgery SIADH--monitor sodium levels Chronic anemia 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 Prediabetes Given poor quality of life, recurrent admissions, palliative care consulted to address goals of care DVT Px: Eliquis CODE STATUS DNI/DNR Admission and Anticipated Discharge Date Admission Date: August 08, 2024 Subjective 08/12/2024 The patient was seen and examined in medical telemetry unit She has been stable and remains pleasantly confused Denies any significant symptoms at rest Review of Systems Review of Systems: All systems reviewed and are unremarkable except as noted below Physical Exam Physical Exam: Lying in bed without any acute distress Constitutional: + ill appearing and average body habitus Eyes: PERRL, conjunctivae normal, anicteric sclerae ENMT: external ear and nose normal, oropharynx normal Neck: trachea midline, no thyromegaly Respiratory: no respiratory distress Auscultation: lungs clear to auscultation bilaterally Cardiovascular: Rate/Rhythm: regular rate and regular rhythm; not tachycardic Heart Sounds: normal S1 and normal S2; no murmur Extremities: no edema Gastrointestinal (Abdomen): Inspection/Auscultation: normal bowel sounds; abdomen not distended Percussion/Palpation: abdomen soft; abdomen nontender Musculoskeletal: No acute arthritis involving any of the joint Neurologic: normal touch/pain/proprioception, moves all extremities and + confused (Pleasantly confused); no focal motor deficits Lymphatic: no cervical or axillary lymphadenopathy Results & Data Results & Data Vital Signs (Past 12 Hours) Vital Signs Temp Pulse Pulse Resp BP BP Pulse Ox 08/12/24 15:55 37 C 83 17 144/69 H 94 08/12/24 14:16 72 08/12/24 12:16 36.9 C 77 20 126/78 93 08/12/24 09:00 08/12/24 07:43 36.6 C 65 20 154/63 H 95 08/12/24 07:03 63 O2 Del Method 08/12/24 15:55 Room Air 08/12/24 14:16 08/12/24 12:16 Room Air 08/12/24 09:00 Room Air 08/12/24 07:43 Room Air 08/12/24 07:03 Laboratory Results Short CBC 08/12/24 Range/Units 07:47 WBC 6.73 (4.8-10.8) K/ul Hgb 10.1 L (12.0-16.0) g/dl Hct 32.0 L (37.0-47.0) % Plt Count 233 (130-400) K/uL BMP 08/12/24 07:47 Sodium 140 Potassium 4.3 Chloride 107 Carbon Dioxide 29 BUN 21 Creatinine 0.93 Glucose 92 Calcium 9.2 Medications Administered Current Inpatient Medications Acetaminophen (Acetaminophen 325 Mg Tab) 650 mg PO QID PRN PRN Reason: pain/fever Stop: 09/07/24 22:12 Last Admin: 08/11/24 15:03 Dose: 650 mg Apixaban (Apixaban 2.5 Mg Tab) 2.5 mg PO BID SELIN Stop: 09/08/24 08:59 Last Admin: 08/12/24 09:06 Dose: 2.5 mg Aspirin (Aspirin 81 Mg Ectab) 81 mg PO DAILY SELIN Stop: 09/08/24 08:59 Last Admin: 08/12/24 09:05 Dose: 81 mg Atorvastatin Calcium (Atorvastatin 40 Mg Tab) 40 mg PO DAILY SELIN Stop: 09/08/24 08:59 Last Admin: 08/12/24 09:05 Dose: 40 mg Bisacodyl (Bisacodyl 10 Mg Supp) 10 mg NM DAILY PRN PRN Reason: Constipation Stop: 09/08/24 07:32 Fluticasone Propionate (Fluticasone Propionate Na Spr 16 Gm Btl) 2 sprays NA DAILY SELIN Stop: 09/08/24 08:59 Last Admin: 08/12/24 09:04 Dose: 2 sprays Promethazine HCl (Phenergan) 6.25 mg in 50.25 mls @ 201 mls/hr IV Q6H PRN PRN Reason: Nausea And Vomiting Stop: 09/07/24 22:12 Lisinopril (Lisinopril 20 Mg Tab) 20 mg PO DAILY SELIN Stop: 09/10/24 08:59 Last Admin: 08/12/24 09:05 Dose: 20 mg Loratadine (Loratadine 10 Mg Tab) 10 mg PO DAILY SELIN Stop: 09/08/24 08:59 Last Admin: 08/12/24 09:05 Dose: 10 mg Mirtazapine (Mirtazapine Tab 15 Mg Tab) 7.5 mg PO HS SELIN Stop: 09/08/24 20:59 Last Admin: 08/11/24 21:45 Dose: 7.5 mg Pantoprazole Sodium (Pantoprazole 40 Mg Tab) 40 mg PO DAILY SELIN Stop: 09/08/24 08:59 Last Admin: 08/12/24 09:05 Dose: 40 mg Polyethylene Glycol (Polyethylene (Miralax) 17 Gm Pack) 17 gm PO DAILY PRN PRN Reason: Constipation Stop: 09/08/24 07:32 Last Admin: 08/10/24 07:40 Dose: 17 gm Senna/Docusate Sodium (Docusate Sodium/Senna 50/8.6mg Tab) 1 tab PO BID SELIN Stop: 09/08/24 08:59 Last Admin: 08/12/24 09:04 Dose: 1 tab Sertraline HCl (Sertraline Hcl 50 Mg Tablet) 25 mg PO DAILY SELIN Stop: 09/08/24 08:59 Last Admin: 08/12/24 09:05 Dose: 25 mg
--- NOTE | 2024-08-12 20:38 | Palliative Care Consultation ---
Date of Consultation August 12, 2024 Assessment & Plan (1) AMS (altered mental status): (2) Dementia with behavioral disturbance: (3) Dementia: (4) Discussion about advance care planning held with family member: face to face acp with dtr in family meeting room x 40min discussed overall progression discussed dementia and its disease course/progression/expected things to come reviewed changes she had in past few months and how it is indicative of dementia worsening we discussed she is in an end stage of dementia and this is incurable/unfixable reviewed [facility] and [facility] reccs for transitioning focus to comfort/QOL for end stage dementia, discussed the recc for addition of hospice. discussed hospice, I provided education about the hospice benefit: an interdisciplinary program offered by nurses, nurses aides, social workers, chaplains and a emergency medical dispatcher for patients with a terminal condition and a life expectancy of less than 6 months. This is covered by Medicare at 100%/no out of pocket expense to patient and all meds/supplies needed by patient for the reason they are on hospice are paid for/covered by hospice. The goal is assure quality of life of the patient in their home setting (home, custodial, inpatient hospice setting) by providing symptoms management, psychosocial and spiritual support. However, they cannot offer 24 hours care and if the family is unable to provide that care, they will have to consider personal care with out of pocket cost vs. custodial placement. We discussed the goals of hospice as a patient service and the goals of care; we discussed EOL trajectories and transitions josé miguel the emotional impact of realizing mortality as a concrete reality from prior abstract considerations. Pt was reassured that no matter where they are along this trajectory, they are not alone - their medical team will remain by their side through their journey. Discussed the pros/cons of accepting help when especially weakened and distressed by pain-which would also help provide relief/decrease caregiver burden/strain. (5) Palliative care by specialist: Introduced Palliative Medicine and explained our role in patient's care. Patient and/or family were receptive to palliative services for goals of care discussions. Reviewed we are different from hospice, a home health nurse visiting service. Plan As above. Thank you for allowing us to participate in the ongoing care of this patient. Please page with any additional concerns. Solange Munoz DNP Director, Palliative Medicine History of Present Illness Attending Physician: Rigo Farris MD History of Present Illness adv dementia with recurrent UTI lives with dtr and son in law dtr states she has been worsening for a while, declining PS, frequent re infections, poor oral intake she is confused at baseline unable to provide HPI Allergies Allergy/AdvReac Type Severity Reaction Status Date / Time shellfish derived Allergy Severe ON [facility] Verified 04/21/24 13:21 [facility] ezetimibe [From Zetia] [facility] 11/19/23 21:59 [facility] Sulfa (Sulfonamide Allergy Unknown ON [facility] Verified 11/19/23 21:59 Antibiotics) [facility] sulfamethoxazole [facility]ified 11/19/23 21:59 [From Bactrim] [facility] tramadol Allergy Unknown ON [facility] Verified 11/19/23 21:59 [facility] trimethoprim [From Bactrim] Allergy Unknown ON [facility] Verified 11/19/23 21:59 [facility] Allergy Unknown ON [facility] Uncoded 11/19/23 21:59 [facility] Home Medications Medication Instructions Recorded Confirmed Type apixaban 2.5 mg tablet (Eliquis) 2.5 mg PO BID 06/21/24 08/08/24 History aspirin 81 mg tablet,delayed 81 mg PO DAILY 06/21/24 08/08/24 History release atorvastatin 40 mg tablet 40 mg PO DAILY 06/21/24 08/08/24 History lisinopril 5 mg tablet 5 mg PO DAILY 06/21/24 08/08/24 History loratadine 10 mg tablet 10 mg PO DAILY 06/21/24 08/08/24 History mirtazapine 15 mg tablet 7.5 mg PO HS 06/21/24 08/08/24 History mometasone 50 mcg/actuation nasal 2 spray intranasal DAILY 06/21/24 08/08/24 History spray omeprazole 20 mg capsule,delayed 20 mg PO DAILY 06/21/24 08/08/24 History release potassium chloride 10 mEq 20 meq PO DAILY 06/21/24 08/08/24 History tablet,extended release(part/cryst) sertraline 25 mg tablet 25 mg PO DAILY 06/21/24 08/08/24 History sennosides 8.6 mg-docusate sodium 2 tab PO QAM #60 tabs 06/28/24 08/08/24 Rx 50 mg tablet (Senokot-S) menthol 0.44 %-zinc oxide 20.6 % topical QID 08/08/24 History topical ointment (Calmoseptine) polyethylene glycol 3350 17 gram 17 g PO BID 08/08/24 08/08/24 History oral powder packet (Miralax) sodium chloride 0.65 % nasal spray spray intranasal PRN congestion 08/08/24 History aerosol Patient History Medical History Intertrochanteric fracture of right hip S/p left hip fracture Fall DVT prophylaxis History of breast cancer Hyperparathyroidism Lumbar spinal stenosis Pre-diabetes HTN (hypertension) Closed right hip fracture Surgical History Status post hip hemiarthroplasty Right History of partial mastectomy hx of dcis Family History Mother Alzheimer disease Father Heart disease Social History Smoking Status: Never smoker Second Hand Exposure: No; Do You Dip or Chew Tobacco: No; Hx Alcohol Use: No Hx Substance Use: No Preferred Language: Divehi Communication Ability: Effective Communication Ability Comment: Daughter at bedside for history Visual Impairment: Limited Hearing Ability: Normal Distribution Sales Representative Required: No Beliefs That Will Affect Care: None marital status: Current Living Situation: Family Current Living Situation Comment: Living with family, daughter, son in law, grandson current occupational status: retired How many Children do You have: 2 Feels Safe at Home: Yes Safety Concerns: Feels Safe At This Time Diet Comment: Educated on increased protein, vitamin c, d and zinc Assistive Devices: Hospital Bed and Wheelchair Review of Systems Review of Systems: Unobtainable due to cognitive status Physical Exam Constitutional: + ill appearing, + thin, + altered menta l status and + lethargic Eyes: PERRL ENMT: Mouth: + dry oral mucous membranes Neck: trachea midline, no thyromegaly Respiratory: normal respiratory effort and symmetric chest movement Auscultation: + diminished lung sounds Cardiovascular: Rate/Rhythm: regular rate and regular rhythm Gastrointestinal (Abdomen): normal bowel sounds, soft, nontender, no h epatosplenomegaly Musculoskeletal: gen weakness Skin: no rashes, warm and dry Neurologic: confused, dementia Results & Data Vital Signs (Past 12 Hours) Vital Signs Temp Pulse Pulse Resp BP BP Pulse Ox 08/12/24 20:02 36.7 C 80 16 162/96 H 93 08/12/24 15:55 37 C 83 17 144/69 H 94 08/12/24 14:16 72 08/12/24 12:16 36.9 C 77 20 126/78 93 08/12/24 09:00 O2 Del Method 08/12/24 20:02 Room Air 08/12/24 15:55 Room Air 08/12/24 14:16 08/12/24 12:16 Room Air 08/12/24 09:00 Room Air Laboratory Results 08/12/24 08/10/24 08/09/24 Range/Units 07:47 05:19 06:04 WBC 6.73 6.13 8.22 (4.8-10.8) K/ul RBC 3.86 L 3.84 L 4.00 L (4.20-5.40) M/uL Hgb 10.1 L 10.0 L 10.3 L (12.0-16.0) g/dl Hct 32.0 L 31.7 L 33.0 L (37.0-47.0) % MCV 82.9 82.6 82.5 (80.0-100.0) fL MCH 26.2 26.0 25.8 (25.0-34.0) pg MCHC 31.6 L 31.5 L 31.2 L (32.0-36.0) g/dL RDW Std Deviation 44.5 44.3 43.1 (36.4-46.3) fL RDW Coeff of Tyesha 14.7 H 14.6 H 14.3 (11.5-14.5) % Plt Count 233 238 253 (130-400) K/uL MPV 9.9 10.0 10.1 (9.4-12.4) fL Immature Gran % (Auto) 0.2 % Neut % (Auto) 64.4 % Lymph % (Auto) 26.2 % [place] % (Auto) 8.2 % Eos % (Auto) 0.5 % Baso % (Auto) 0.5 % Neut # (Auto) 5.30 (1.40-6.50) K/uL Lymph # (Auto) 2.15 (1.20-3.40) K/uL [place] # (Auto) 0.67 H (0.11-0.59) K/uL Eos # (Auto) 0.04 (0.00-0.50) K/uL Baso # (Auto) 0.04 (0.00-0.20) K/uL Immature Gran # (Auto) 0.02 (0.01-0.20) K/uL Sodium 140 139 136 (136-145) mmol/L Potassium 4.3 4.1 4.3 (3.5-5.1) mmol/L Chloride 107 108 H 105 (98-107) mmol/L Carbon Dioxide 29 28 26 (21-32) mmol/L Anion Gap 4 3 5 (3-11) BUN 21 16 19 (6-23) mg/dl Creatinine 0.93 0.74 0.78 (0.6-1.2) mg/dl Est Cr Clr Drug Dosing 33.0 41.5 39.8 ml/min eGFR 60.23 79.24 74.39 BUN/Creatinine Ratio 22.6 H 21.6 H 24.4 H (10-20) Glucose 92 88 96 (70-99(Fasting)) mg/dl POC Glucose (70-99) mg/dl Calcium 9.2 9.5 9.5 (8.6-10.3) mg/dl Magnesium 2.1 (1.7-2.4) mg/dl Total Bilirubin (0.2-1.0) mg/dl AST (13-39) U/L ALT (7-52) U/L Alkaline Phosphatase (34-104) U/L Troponin I High Sens (0-14) pg/ml Total Protein (6.0-8.3) gm/dl Albumin (3.4-5.0) gm/dl Globulin (2.5-4.0) gm/dl Albumin/Globulin Ratio (0.9-2) TSH (0.300-4.500) uIu/ml Urine Color Urine Appearance (Clear) Urine pH (4.5-7.5) Ur Specific [place] (1.000-1.030) Urine Protein (Negative) Urine Glucose (UA) (Negative) Urine Ketones (Negative) Urine Blood (Negative) Urine Nitrite (Negative) Urine Bilirubin (Negative) Urine Urobilinogen (Negative) Ur Leukocyte Esterase (Negative) Urine WBC (Auto) (0-5) /hpf Urine RBC (Auto) (0-2) /hpf U Hyaline Cast (Auto) (0-2) /lpf U Epithel Cells (Auto) (0-2) /hpf Urine Bacteria (Auto) (None Seen) Adenovirus (PCR) (NotDetected) B. pertussis DNA (PCR) (NotDetected) B.parapertussis DNA PCR (NotDetected) C. pneumoniae DNA (PCR) (NotDetected) Coronavirus OC43 (PCR) (NotDetected) Coronavirus HKU1 (PCR) (NotDetected) Coronavirus 229E (PCR) (NotDetected) SARS-CoV-2 (PCR) (NotDetected) Coronavirus NL63 (PCR) (NotDetected) Human Metapneumovir PCR (NotDetected) Influenza Type A (PCR) (NotDetected) Influenza Type B (PCR) (NotDetected) M. pneumoniae (PCR) (NotDetected) Parainfluenza 1 (PCR) (NotDetected) Parainfluenza 2 (PCR) (NotDetected) Parainfluenza 3 (PCR) (NotDetected) Parainfluenza 4 (PCR) (NotDetected) RSV (PCR) (NotDetected) Entero/Rhino (PCR) (NotDetected) 08/08/24 08/08/24 08/08/24 Range/Units 20:24 20:14 19:59 WBC 8.99 (4.8-10.8) K/ul RBC 4.80 (4.20-5.40) M/uL Hgb 12.4 (12.0-16.0) g/dl Hct 39.4 (37.0-47.0) % MCV 82.1 (80.0-100.0) fL MCH 25.8 (25.0-34.0) pg MCHC 31.5 L (32.0-36.0) g/dL RDW Std Deviation 43.0 (36.4-46.3) fL RDW Coeff of Tyesha 14.3 (11.5-14.5) % Plt Count 300 (130-400) K/uL MPV 9.6 (9.4-12.4) fL Immature Gran % (Auto) 0.3 % Neut % (Auto) 67.8 % Lymph % (Auto) 23.4 % [place] % (Auto) 6.5 % Eos % (Auto) 1.3 % Baso % (Auto) 0.7 % Neut # (Auto) 6.10 (1.40-6.50) K/uL Lymph # (Auto) 2.10 (1.20-3.40) K/uL [place] # (Auto) 0.58 (0.11-0.59) K/uL Eos # (Auto) 0.12 (0.00-0.50) K/uL Baso # (Auto) 0.06 (0.00-0.20) K/uL Immature Gran # (Auto) 0.03 (0.01-0.20) K/uL Sodium 136 (136-145) mmol/L Potassium 4.0 (3.5-5.1) mmol/L Chloride 104 (98-107) mmol/L Carbon Dioxide 21 (21-32) mmol/L Anion Gap 11 (3-11) BUN 19 (6-23) mg/dl Creatinine 0.76 (0.6-1.2) mg/dl Est Cr Clr Drug Dosing 41.9 ml/min eGFR 76.74 BUN/Creatinine Ratio 25.0 H (10-20) Glucose 160 H (70-99(Fasting)) mg/dl POC Glucose 163 H (70-99) mg/dl Calcium 10.0 (8.6-10.3) mg/dl Magnesium 1.8 (1.7-2.4) mg/dl Total Bilirubin 0.5 (0.2-1.0) mg/dl AST 13 (13-39) U/L ALT 5 L (7-52) U/L Alkaline Phosphatase 115 H (34-104) U/L Troponin I High Sens 7.0 (0-14) pg/ml Total Protein 7.8 (6.0-8.3) gm/dl Albumin 4.0 (3.4-5.0) gm/dl Globulin 3.8 (2.5-4.0) gm/dl Albumin/Globulin Ratio 1.1 (0.9-2) TSH 1.826 (0.300-4.500) uIu/ml Urine Color Yellow Urine Appearance Cloudy A (Clear) Urine pH 7.5 (4.5-7.5) Ur Specific [place] 1.013 (1.000-1.030) Urine Protein 3+ H (Negative) Urine Glucose (UA) Negative (Negative) Urine Ketones Trace H (Negative) Urine Blood 3+ H (Negative) Urine Nitrite Positive A (Negative) Urine Bilirubin Negative (Negative) Urine Urobilinogen Negative (Negative) Ur Leukocyte Esterase 3+ H (Negative) Urine WBC (Auto) >50 H (0-5) /hpf Urine RBC (Auto) >20 H (0-2) /hpf U Hyaline Cast (Auto) 0-2 (0-2) /lpf U Epithel Cells (Auto) 3-5 H (0-2) /hpf Urine Bacteria (Auto) 3+ H (None Seen) Adenovirus (PCR) Not Detected (NotDetected) B. pertussis DNA (PCR) Not Detected (NotDetected) B.parapertussis DNA PCR Not Detected (NotDetected) C. pneumoniae DNA (PCR) Not Detected (NotDetected) Coronavirus OC43 (PCR) Not Detected (NotDetected) Coronavirus HKU1 (PCR) Not Detected (NotDetected) Coronavirus 229E (PCR) Not Detected (NotDetected) SARS-CoV-2 (PCR) Not Detected (NotDetected) Coronavirus NL63 (PCR) Not Detected (NotDetected) Human Metapneumovir PCR Not Detected (NotDetected) Influenza Type A (PCR) Not Detected (NotDetected) Influenza Type B (PCR) Not Detected (NotDetected) M. pneumoniae (PCR) Not Detected (NotDetected) Parainfluenza 1 (PCR) Not Detected (NotDetected) Parainfluenza 2 (PCR) Not Detected (NotDetected) Parainfluenza 3 (PCR) Not Detected (NotDetected) Parainfluenza 4 (PCR) Not Detected (NotDetected) RSV (PCR) Not Detected (NotDetected) Entero/Rhino (PCR) Not Detected (NotDetected) Diagnostic Findings Chest X-Ray 08/08/24 19:59 Exam(s): XR CXR 1 VIEW EXAM: XR Chest, 1 View CLINICAL HISTORY: Reason for exam: weakness, confusion. TECHNIQUE: Frontal view of the chest. COMPARISON: X-ray chest: 11/24/2023 FINDINGS: Lungs: Persistently elevated right hemidiaphragm with reduced right lung volume. Prominent perihilar bronchovascular/interstitial opacities. No consolidation. A hiatal hernia with a retrocardiac density. Pleural space: Blunting of left costophrenic sulcus. No pneumothorax. Heart: Stable cardiomediastinal silhouette. Calcified atherosclerosis of the aortic knob. Bones/joints: Osteopenia. No obvious acute osseous findings.. IMPRESSION: Possibly mild pulmonary vascular congestion. Recommend clinical correlation. Persistently elevated right hemidiaphragm. A moderately large size hiatal hernia . Electronically signed by: Jose Rawls MD, DABR 08/09/24 02:[address] 08/08/24 19:59 Exam(s): CT HEAD Without Contrast EXAM: CT Head Without Intravenous Contrast CLINICAL HISTORY: Reason for exam: weak, ams, hx dementia. TECHNIQUE: Axial computed tomography images of the head/brain without intravenous contrast. CTDI is 37.39 mGy and DLP is 547.75 mGy-cm. Automated exposure control was utilized for the study. A dose lowering technique was utilized adhering to the principles of ALARA. COMPARISON: Prior head CT from June 21, 2024. FINDINGS: Brain: Remote ischemic injury of the right capsule. No hemorrhage. Advanced nonspecific white matter changes. No edema. Ventricles: Moderate ventriculomegaly. Bones/joints: Unremarkable. No acute fracture. Soft tissues: Unremarkable. Sinuses: Unremarkable as visualized. No acute sinusitis. Mastoid air cells: Unremarkable as visualized. No mastoid effusion. IMPRESSION: No evidence of acute intracranial pathology. Electronically signed by: Jasmin Linn MD 08/09/24 00:52 AM Abdomen/Pelvis CT 08/08/24 21:02 Exam(s): CT ABDOMEN + PELVIS Without Contrast EXAM: CT Abdomen and Pelvis Without Intravenous Contrast CLINICAL HISTORY: Reason for exam: lower abd pain,constipation. TECHNIQUE: Axial computed tomography images of the abdomen and pelvis without intravenous contrast. CTDI is 16.14 mGy and DLP is 755.69 mGy-cm. Automated exposure control was utilized for the study. A dose lowering technique was utilized adhering to the principles of ALARA. COMPARISON: CT abdomen/pelvis: 06/21/2024 FINDINGS: Image diagnostic quality is hampered by motion artifact. Lung bases: No mass. No consolidation. Again noted a markedly elevated right hemidiaphragm. Right lower lobe medially compressive atelectatic changes. ABDOMEN: Analysis of abdominal/pelvic viscera and vascular structures is limited in absence of IV contrast. Liver: Superiorly extended into the chest cavity. Unremarkable. Gallbladder and bile ducts: Gallbladder is surgically absent. Postcholecystectomy mild ductal ectasia Pancreas: Unremarkable. No ductal dilation. Spleen: Unremarkable. No splenomegaly. Adrenals: Unremarkable. No mass. Kidneys and ureters: Again noted multiple calculi in the right renal pelvis. No hydronephrosis. A left renal 1.5 cm lucency/cyst posteriorly. A 1.4 cm parapelvic cyst in the left kidney. A punctate calculus in the mid left kidney.. No hydronephrosis. Stomach and bowel: A moderately large size hiatal hernia with organoaxial rotation. Normal caliber small bowel. There is colonic diverticulosis with ascending colon wall thickening and right pericolonic mild fat stranding, could be reactive although cannot exclude mild diverticulitis/colitis versus incomplete distention (series 300 image 48). There is diffuse incomplete/nondistention of the transverse and descending colon. Again noted a very large amount of retained fecal debris mixed with gas in a distended rectosigmoid, somewhat similar to the prior comparison. PELVIS: Appendix: No findings to suggest acute appendicitis. Bladder: An abnormal appearing decompressed urinary bladder is seen with increased wall thickness and stranding of perivesical fat, likely due to bacterial cystitis. Reproductive: Anteverted atrophic uterus with intraluminal gas collection, similar to prior. ABDOMEN and PELVIS: Intraperitoneal space: No free air. No significant fluid collection. Bones/joints: Osteopenia. T12 vertebra plana with complete loss of body height, seen similar to prior (series 301 image 47. Grade 1 L4 spondylolisthesis. Multilevel moderately advanced degenerative thoracolumbar spondylosis. Facet osteoarthropathy. Total right hip replacement. Intramedullary esmer/pin fixation of the proximal left femur Soft tissues: Unremarkable. Vasculature: Extensive calcified atherosclerosis of the tortuous/elongated aortoiliac vasculature.. No abdominal aortic aneurysm. Lymph nodes: No obvious lymphadenopathy by CT size criteria. . IMPRESSION: . A moderately large size hiatal hernia with an organoaxial rotation. Colonic diverticulosis. Ascending colonic mild wall thickening and pericolonic mild fat stranding, this could be reactive although cannot exclude mild diverticulitis/colitis versus incomplete bowel distention. Recommend clinical correlation. Again noted a very large amount of retained fecal debris mixed with gas in a distended rectosigmoid similar to prior comparison. An abnormal appearing decompressed urinary bladder is seen with increased wall thickness and perivesical fat stranding likely due to bacterial cystitis. Recommend clinical correlation. Multiple right renal calculi without evidence of hydronephrosis. Additional findings as described above. Electronically signed by: Jose Rawls MD, DABR 08/09/24 03:40 AM PG Care Time/CCT Total # of Minutes Spent Total Time Spent with Patient: Total time spent is greater than 50% in coordination of care (as documented) at patient's floor/unit and/or counseling patient: I spent 95 minutes overall addressing this case: 15 min in medical data review/discussion with referring provider(s) and/or preparation for the visit 15 min in direct interaction with the patient/exam 40 min in Advance Care Planning/Goals of Care discussions as detailed above in note (must be >16min) 10 min in subsequent review and synthesis of assessment and plan 15 min communicating with other providers regarding the patient's case: care mgt, nursing, primary team Advanced Care Planning 79688 Advanced Care Planning 30 Min 94560 Advanced Care Planning Additional 30 [place] [address] IN/OBS CONSULT LVL 4,60M (25 - SIGNIFICANT, SEPARATELY IDENTIFIABLE ) Patient Type New Medical Decision Making High Complexity Diagnoses AMS (altered mental status) R41.82 Dementia with behavioral disturbance F03.918 Dementia F03.90 Discussion about advance care planning held with family member Z71.0 Palliative care by specialist Z51.5 Additional Codes Advanced Care Planning - 06074 Advanced Care Planning Additional 30 Min: 01047 Advanced Care Planning Additional 30 Min ([id number]) Advanced Care Planning - 32386 Advanced Care Planning 30 Min: 61814 Advanced Care Planning 30 Min ([id number])
--- NOTE | 2024-08-12 23:40 | Communication Note ---
Date of Service: August 12, 2024 Overnight issues 08/12, 1120P Patient with poor urine output as per RN. 0.93 this a.m. from 0.74 (08/12) AP Poor urine output, increased creatinine IV albumin 1 dose Hold lisinopril for now Recheck PRP in a.m. 08/13, 635A Patient noted to have hematuria Patient's gown and diaper pad noted to have blood. Patient without pain complaints as per RN. AP Painless hematuria Complicated UTI Eliquis Rx for PE Hold Eliquis for now CBC now Resume Eliquis if H&H stable
[2024-08-12] MEDS: ALBUMIN 25% 25 GM/100 ML VIAL IV ONE (23:59)
[2024-08-13 06:41] LABS: BUN Creatinine Ratio 30.8 (10-20); Creatinine Clr Calc Pharmacy 39.5 ml/min
[2024-08-13 07:28] LABS: Basophils # (auto) 0.05 K/uL (0.00-0.20); Basophils % (auto) 0.7 %; Eosinophils # (auto) 0.34 K/uL (0.00-0.50); Eosinophils % (auto) 4.9 %; Hematocrit (blood only) 32.8 % (37.0-47.0); Hemoglobin 10.3 g/dl (12.0-16.0); Immature Granulocytes # (auto) 0.02 K/uL (0.01-0.20); Immature Granulocytes % (auto) 0.3 %; Lymphocytes # (auto) 1.59 K/uL (1.20-3.40); Mean Corpuscular Hemoglobin 25.9 pg (25.0-34.0); Mean Corpuscular Hgb Conc 31.4 g/dL (32.0-36.0); Mean Corpuscular Volume 82.4 fL (80.0-100.0); Monocytes # (auto) 0.56 K/uL (0.11-0.59); Monocytes % (auto) 8.1 %; Neutrophils # (auto) 4.36 K/uL (1.40-6.50); Platelet Count 224 K/uL (130-400); RDW Coefficient of Variation 14.5 % (11.5-14.5); RDW Standard Deviation 43.6 fL (36.4-46.3); Red Blood Count 3.98 M/uL (4.20-5.40); White Blood Count 6.92 K/ul (4.8-10.8)
[2024-08-13] MEDS: LORATADINE 10 MG TAB PO ONE (07:56)
[2024-08-13 08:00] LABS: INR 1.1 (0.9-1.1); Prothrombin Time 11.6 Seconds (9.0-12.0)
--- NOTE | 2024-08-13 11:53 | Hospitalist Progress Note ---
Date of Service August 13, 2024 Assessment & Plan (1) Encephalopathy: Plan: Acute metabolic encephalopathy: Multifactorial: Delirium, UTI in setting of dementia Complicated UTI H/O ESBL E. 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 -- Urine culture: ESBL E. coli, Klebsiella Received IV fluids Continue IV ertapenem -the course was finished earlier Reorient frequently to minimize delirium Continue PT OT Clinically stable and to be transferred to rehab facility when accepted Medically stable without any significant symptoms Will be discharged home this afternoon and will have palliative care evaluation as an outpatient Questionable hematuria No drop in hemoglobin and no more hematuria since this morning Advised to drink more fluid Uncontrolled hypertension Lisinopril dose increased to 20 mg daily Blood pressure remains stable at 144/69 Blood pressure remains controlled at 144/89 Constipation Continue bowel regimen Denies any abdominal pain, nausea, vomiting Tolerating diet Hiatal hernia Continue PPI Aspiration precautions Pured diet, thickened liquids as recommended on prior speech eval Delirium on dementia Multifactorial No acute delirium Other chronic conditions: 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) CVA/PVD--continue aspirin, Lipitor Breast cancer S/P surgery SIADH--monitor sodium levels Chronic anemia 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 Prediabetes Given poor quality of life, recurrent admissions, palliative care consulted to address goals of care Appreciate palliative care input and recommendation She will be discharged home this afternoon and will have further palliative care/hospice evaluation as an outpatient DVT Px: Eliquis CODE STATUS DNI/DNR Admission and Anticipated Discharge Date Admission Date: August 08, 2024 Subjective 08/12/2024 The patient was seen and examined in medical telemetry unit She has been stable and remains pleasantly confused Denies any significant symptoms at rest 08/13/2024 Patient was seen and examined in medical telemetry unit She has been feeling much better and denies any significant symptoms Has been making urine and the color been radha and no more hematuria as well as noted last night Will be discharged home this afternoon Review of Systems Review of Systems: All systems reviewed and are unremarkable except as noted below Physical Exam Physical Exam: Lying in bed without any acute distress Constitutional: + ill appearing and average body habitus Eyes: PERRL, conjunctivae normal, anicteric sclerae ENMT: external ear and nose normal, oropharynx normal Neck: trachea midline, no thyromegaly Respiratory: no respiratory distress Auscultation: lungs clear to auscultation bilaterally Cardiovascular: Rate/Rhythm: regular rate and regular rhythm; not tachycardic Heart Sounds: normal S1 and normal S2; no murmur Extremities: no edema Gastrointestinal (Abdomen): Inspection/Auscultation: normal bowel sounds; abdomen not distended Percussion/Palpation: abdomen soft; abdomen nontender Musculoskeletal: No acute arthritis involving any of the joints Neurologic: normal touch/pain/proprioception, moves all extremities and + confused (Pleasantly confused); no focal motor deficits Lymphatic: no cervical or axillary lymphadenopathy Results & Data Results & Data Vital Signs (Past 12 Hours) Vital Signs Temp Pulse Pulse Resp BP Pulse Ox O2 Del Method 08/13/24 11:18 36.9 C 82 16 144/89 H 95 Room Air 08/13/24 07:51 Room Air 08/13/24 07:14 65 08/13/24 07:12 36.6 C 72 16 166/80 H 93 Room Air 08/13/24 04:20 36.5 C 66 16 163/89 H 92 Room Air Laboratory Results Short CBC 08/13/24 Range/Units 06:51 WBC 6.92 (4.8-10.8) K/ul Hgb 10.3 L (12.0-16.0) g/dl Hct 32.8 L (37.0-47.0) % Plt Count 224 (130-400) K/uL BMP 08/13/24 05:53 Sodium 142 Potassium 4.0 Chloride 108 H Carbon Dioxide 28 BUN 24 H Creatinine 0.78 Glucose 90 Calcium 10.0 Medications Administered Current Inpatient Medications Acetaminophen (Acetaminophen 325 Mg Tab) 650 mg PO QID PRN PRN Reason: pain/fever Stop: 09/07/24 22:12 Last Admin: 08/11/24 15:03 Dose: 650 mg Apixaban (Apixaban 2.5 Mg Tab) 2.5 mg PO BID SELIN Stop: 09/08/24 08:59 Last Admin: 08/12/24 20:55 Dose: 2.5 mg Aspirin (Aspirin 81 Mg Ectab) 81 mg PO DAILY SELIN Stop: 09/08/24 08:59 Last Admin: 08/13/24 07:56 Dose: 81 mg Atorvastatin Calcium (Atorvastatin 40 Mg Tab) 40 mg PO DAILY SELIN Stop: 09/08/24 08:59 Last Admin: 08/13/24 07:56 Dose: 40 mg Bisacodyl (Bisacodyl 10 Mg Supp) 10 mg MD DAILY PRN PRN Reason: Constipation Stop: 09/08/24 07:32 Fluticasone Propionate (Fluticasone Propionate Na Spr 16 Gm Btl) 2 sprays NA DAILY SELIN Stop: 09/08/24 08:59 Last Admin: 08/13/24 07:56 Dose: 2 sprays Promethazine HCl (Phenergan) 6.25 mg in 50.25 mls @ 201 mls/hr IV Q6H PRN PRN Reason: Nausea And Vomiting Stop: 09/07/24 22:12 Lisinopril (Lisinopril 20 Mg Tab) 20 mg PO DAILY SELIN Stop: 09/10/24 08:59 Last Admin: 08/12/24 09:05 Dose: 20 mg Loratadine (Loratadine 10 Mg Tab) 10 mg PO DAILY SELIN Stop: 09/13/24 08:59 Mirtazapine (Mirtazapine Tab 15 Mg Tab) 7.5 mg PO HS [facility] Stop: 09/08/24 20:59 Last Admin: 08/12/24 20:55 Dose: 7.5 mg Pantoprazole Sodium (Pantoprazole 40 Mg Tab) 40 mg PO DAILY SELIN Stop: 09/08/24 08:59 Last Admin: 08/13/24 07:56 Dose: 40 mg Polyethylene Glycol (Polyethylene (Miralax) 17 Gm Pack) 17 gm PO DAILY PRN PRN Reason: Constipation Stop: 09/08/24 07:32 Last Admin: 08/10/24 07:40 Dose: 17 gm Senna/Docusate Sodium (Docusate Sodium/Senna 50/8.6mg Tab) 1 tab PO BID SELIN Stop: 09/08/24 08:59 Last Admin: 08/13/24 07:58 Dose: 1 tab Sertraline HCl (Sertraline Hcl 50 Mg Tablet) 25 mg PO DAILY SELIN Stop: 09/08/24 08:59 Last Admin: 08/13/24 07:57 Dose: 25 mg
[2024-08-13 15:12] VITALS: BP 181/93; RESP 18; TEMP 99.5; O2SAT 94
[2024-08-13 15:51] VITALS: PULSE 71
[2024-08-13] MEDS: NITROGLYCERIN 2% OINTMENT 30GM TUBE EXT ONE (15:58)
[2024-08-13] MEDS: lisinopril 20 MG TAB PO STA (15:58)
[2024-08-14] MEDS ORDERED: LORATADINE 10 MG TAB PO SCH (09:00)
--- NOTE | 2024-08-14 09:08 | Discharge Summary ---
Date of Service August 14, 2024 Admission HPI Per Admitting Provider History obtained from patient family, and records. Limited history from patient secondary to dementia. 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 Last confinement June 2024 for recurrent UTI in the setting of fecal impaction. ESBL E. coli on urine CS. Patient noted to be increasingly confused today, shaky and somewhat nervous. Leaking urine. Patient denies headache, chest pain, SOB, abdominal pain or dysuria symptoms. PCP prescribed outpatient Keflex course. Patient brought to ER by EMS for evaluation SBP 200s upon arrival at the ER. 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 Admission Exam Per Admitting Provider Physical Exam: GENERAL: Demented, pleasant,, underweight, no respiratory distress SKIN: Pallor,, warm HEENT: Pale palpebral conjunctivae, chronic ptosis left with tearing, left facial droop, dry buccal mucosa NECK : Supple, no tenderness CHEST : CTA, no tenderness HEART : RRR, no obvious murmurs ABDOMEN: no distention, nontender EXTREMITIES : No LE swelling/tenderness, no other conspicuous deformities noted NEUROLOGIC : Demented, left facial asymmetry, mild dysarthria, MMTs RUE/RLE 4/5, LUE/LLE 3/5, gait and stance not assessed Principal Diagnosis Acute metabolic and cephalopathy, complicated UTI, hypertensive urgency, dementia Discharge Exam Lying in bed without any acute distress Constitutional + ill appearing and average body habitus Eyes PERRL, conjunctivae normal, anicteric sclerae ENMT external ear and nose normal, oropharynx normal Neck trachea midline, no thyromegaly Respiratory no respiratory distress Auscultation: lungs clear to auscultation bilaterally Cardiovascular Rate/Rhythm: regular rate and regular rhythm; not tachycardic Heart Sounds: normal S1 and normal S2; no murmur Extremities: no edema Gastrointestinal (Abdomen) Inspection/Auscultation: normal bowel sounds; abdomen not distended Percussion/Palpation: abdomen soft; abdomen nontender Neurologic normal touch/pain/proprioception, moves all extremities and + confused (Pleasantly confused); no focal motor deficits Lymphatic no cervical or axillary lymphadenopathy Discharge Data Allergies Allergy/AdvReac Type Severity Reaction Status Date / Time shellfish derived [facility] Ver[facility] 04/21/24 13:21 [facility] LIST ezetimibe [From Zetia] Allergy Unknown ON [facility] Verified 11/19/23 21:59 [facility] LIST Sulfa (Sulfonamide Allergy Unknown ON [facility] Verified 11/19/23 21:59 Antibiotics) [facility] LIST sulfamethoxazole Allergy Unknown ON [facility] Verified 11/19/23 21:59 [From Bactrim] [facility] LIST tramadol Allergy Unknown ON [facility] Verified 11/19/23 21:59 [facility] LIST trimethoprim [From Bactrim] Allergy Unknown ON [facility] Verified 11/19/23 21:59 [facility] LIST [facility] Allergy Unknown ON [facility] Uncoded 11/19/23 21:59 [facility] LIST Consultations 08/08/24 21:27 ED Decision to Admit Stat 08/09/24 06:59 Consult Palliative Care Routine Ordered Studies 08/08/24 19:59 CT head/brain wo con Stat 08/08/24 21:02 CT abd pelvis wo con Stat Hospital Course (1) Encephalopathy: Acute metabolic encephalopathy: Multifactorial: Delirium, UTI in setting of dementia Complicated UTI H/O ESBL E. 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 -- Urine culture: ESBL E. coli, Klebsiella Received IV fluids Continue IV ertapenem -the course was finished earlier Reorient frequently to minimize delirium Continue PT OT Clinically stable and to be transferred to rehab facility when accepted Medically stable without any significant symptoms Will be discharged home this afternoon and will have palliative care evaluation as an outpatient Questionable hematuria No drop in hemoglobin and no more hematuria since this morning Advised to drink more fluid Uncontrolled hypertension Lisinopril dose increased to 20 mg daily Blood pressure remains stable at 144/69 Blood pressure remains controlled at 144/89 Constipation Continue bowel regimen Denies any abdominal pain, nausea, vomiting Tolerating diet Hiatal hernia Continue PPI Aspiration precautions Pured diet, thickened liquids as recommended on prior speech eval Delirium on dementia Multifactorial No acute delirium Other chronic conditions: 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) CVA/PVD--continue aspirin, Lipitor Breast cancer S/P surgery SIADH--monitor sodium levels Chronic anemia 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 Prediabetes Given poor quality of life, recurrent admissions, palliative care consulted to address goals of care Appreciate palliative care input and recommendation She will be discharged home this afternoon and will have further palliative care/hospice evaluation as an outpatient DVT Px: Eliquis CODE STATUS DNI/DNR Total Time Total Time Spent Total Time Spent (In Minutes): 35 minutes Discharge Plan Discharge Items Patient Disposition: Hospice - Home Reason For Visit: HTN URGENCY, COMP UTI Discharge Diagnosis: Acute metabolic and cephalopathy, complicated UTI, hypertensive urgency, dementia Condition on Discharge: Fair Activity: Resume your previous activity Non-emergency contact: Primary Care Provider Call non-emergency contact if: you have any medication questions and your symptoms worsen Follow-up/Referrals: Angie Perez MD [Primary Care Provider] - Diet: Regular Diet Texture: Pureed (blended smooth) Diet Comment: Liquid consistency, moderately thick, Addtl Attending Provider Instructions: Please take precautions to avoid falls Take your medications as advised Assist in ADLs Plan to have hospice evaluation at home Pending Studies at Discharge: No Stand-Alone Forms: My [facility] Medications and DC Order Prescriptions: New lisinopril 20 mg Tablet 20 mg PO DAILY Qty: 30 0RF Continued atorvastatin 40 mg tablet 40 mg PO DAILY mometasone 50 mcg/actuation spray,non-aerosol 2 spray INTRANASAL DAILY sertraline 25 mg tablet 25 mg PO DAILY omeprazole 20 mg capsule,delayed release(DR/EC) 20 mg PO DAILY mirtazapine 15 mg tablet 7.5 mg PO HS potassium chloride 10 mEq tablet,ER particles/crystals 20 meq PO DAILY Eliquis 2.5 mg tablet 2.5 mg PO BID aspirin 81 mg Tablet,Delayed Release (Dr/Ec) 81 mg PO DAILY loratadine 10 mg Tablet 10 mg PO DAILY sennosides-docusate sodium [Senokot-S] 8.6-50 mg Tablet 2 tab PO QAM Qty: 60 0RF sodium chloride 0.65 % Aerosol,Calvin INTRANASAL PRN (Reason: congestion ) menthol-zinc oxide [Calmoseptine] 0.44-20.6 % Ointment TOPICAL QID polyethylene glycol 3350 [Miralax] 17 gram powder in packet 17 g PO BID Discontinued lisinopril 5 mg tablet 5 mg PO DAILY Discharge Orders: Discharge Order (Routine); Ordered 08/13/24 Ordered By: Rigo Farris Admission Data Admit Date/Time: 08/08/24 22:11 Attending Provider: Rigo Farris Admit Provider: Edward Jose Primary Care Provider: Angie Perez Other Providers: Edward Jose; Rosette Munoz; Jorge Ramon; [place] Other Interventions: Discharge Summary Assessment (RN) Last Done: 08/13/24 15:50
== END 2024-08-13 17:24 | disposition hospice, home (50) | DRG 689 ==
LOC: ED 19:56 → SUATTDRO 22:11 → 2W 22:11